=== PATIENT | female | born 1945 | race Hispanic/Latino ===

== ENCOUNTER 2017-05-19 09:17 | Inpatient (IN) | payer MEDICARE, OTHER ==
[2017-05-19] MEDS ORDERED: Morphine 4 mg/ml ISec IVP STA (11:27)
--- NOTE | 2017-05-19 11:29 | ED PDOC ---
Arrival/HPI - General Chief Complaint: Back Pain Time Seen by Provider: 05/19/17 11:05 Historian: Patient - History of Present Illness Narrative History of Present Illness (Text): 05/19/17 11:29 A 72 year old female sent into the emergency department by Dr. Puente for evaluation. Patient had a MRI done yesterday which showed a spinal mass between T10-11. Patient complains of progressively worsening right mid-back pain over the past few days. Patient reports a heavy sensation to her upper legs, and notes her pain is exacerbated with movement and ambulation. Patient denies any fever, chills, nausea, vomiting, abdominal pain, chest pain, shortness of breath , weakness, numbness or any other complaints. PMD: Dr. Vail Oncologist: Dr. Puente Pain Management: Dr. Schwab Time/Duration: Other (few days) Symptom Course: Worsening Context: Home Past Medical History - Provider Review Nursing Documentation Reviewed: Yes - Cardiac Hx Cardiac Disorders: Yes - Pulmonary Hx Respiratory Disorders: No - Neurological Hx Neurological Disorder: No - HEENT Hx HEENT Disorder: No - Renal Hx Renal Disorder: No - Endocrine/Metabolic Hx Endocrine Disorders: Yes Hx Diabetes Mellitus Type 2: Yes - Hematological/Oncological Hx Blood Disorders: Yes Hx Cancer: Yes - Integumentary Hx Dermatological Disorder: No - Musculoskeletal/Rheumatological Hx Musculoskeletal Disorders: Yes Hx Arthritis: Yes - Gastrointestinal Hx Gastrointestinal Disorders: No - Genitourinary/Gynecological Hx Genitourinary Disorders: Yes - Psychiatric Hx Psychophysiologic Disorder: Yes Hx Anxiety: Yes Hx Depression: Yes Hx Substance Use: No - Surgical History Hx Section: Yes Hx Orthopedic Surgery: Yes (R KNEE) - Anesthesia Hx Anesthesia: Yes Family/Social History - Physician Review Nursing Documentation Reviewed: Yes Family/Social History: No Known Family HX Smoking Status: Heavy Smoker > 10 Cigarettes Daily Hx Alcohol Use: Yes Frequency of alcohol use: Socially Hx Substance Use: No Allergies/Home Meds Allergies/Adverse Reactions: Allergies Sulfa (Sulfonamide Antibiotics) Allergy (Verified 05/19/17 14:07) ANAPHYLAXIS Home Medications: Home Meds Medication Instructions Recorded Confirmed Alprazolam [Xanax] 2 mg PO TID 05/19/17 05/19/17 Colesevelam HCl [Welchol] 625 mg PO QID 05/19/17 05/19/17 Metformin ER [Glucophage XR] 500 mg PO BID 05/19/17 05/19/17 Montelukast [Singulair] 10 mg PO DAILY 05/19/17 05/19/17 Zolpidem [Ambien] 5 mg PO DAILY 05/19/17 05/19/17 Review of Systems - Physician Review All systems were reviewed & negative as marked: Yes - Review of Systems Constitutional: absent: Fevers, Night Sweats Respiratory: absent: SOB Cardiovascular: absent: Chest Pain Gastrointestinal: absent: Abdominal Pain, Nausea, Vomiting Musculoskeletal: Back Pain (right mid-back) Neurological: absent: Focal Weakness (/numbness) Physical Exam Vital Signs Reviewed: Yes Vital Signs Temp Pulse Resp BP Pulse Ox 05/19/17 20:26 97.5 F L 69 18 161/68 H 05/19/17 17:00 71 18 148/71 96 05/19/17 15:55 75 18 156/77 H 96 05/19/17 15:39 76 18 148/86 98 05/19/17 12:39 83 18 150/92 H 97 05/19/17 12:29 78 18 145/75 99 05/19/17 09:47 98.1 F 83 16 149/80 99 Temperature: Afebrile Blood Pressure: Normal Pulse: Regular Respiratory Rate: Normal Appearance: Positive for: Well-Appearing, Non-Toxic, Comfortable Pain Distress: None Mental Status: Positive for: Alert and Oriented X 3 - Systems Exam Head: Present: Atraumatic, Normocephalic Pupils: Present: PERRL Extroacular Muscles: Present: EOMI Conjunctiva: Present: Normal Mouth: Present: Moist Mucous Membranes Neck: Present: Normal Range of Motion Respiratory/Chest: Present: Clear to Auscultation, Good Air Exchange. No: Respiratory Distress, Accessory Muscle Use Cardiovascular: Present: Regular Rate and Rhythm, Normal S1, S2. No: Murmurs Abdomen: Present: Normal Bowel Sounds. No: Tenderness, Distention, Peritoneal Signs Back: Present: Paraspinal Tenderness (Right thoracic paraspinal tenderness). No : Pain with Leg Raise Upper Extremity: Present: Normal Inspection. No: Cyanosis, Edema Lower Extremity: Present: Normal Inspection. No: Edema Neurological: Present: GCS=15, CN II-XII Intact, Speech Normal, Motor Func Grossly Intact, Normal Sensory Function, Normal Cerebellar Funct Skin: Present: Warm, Dry, Normal Color. No: Rashes Psychiatric: Present: Alert, Oriented x 3, Normal Insight, Normal Concentration Medical Decision Making ED Course and Treatment: 05/19/17 11:29 Impression: A 72 year old female with worsening right mid back pain. Patient found to have a spinal mass between T10-11. Differential Diagnosis included but are not limited to: Back pain secondary to Spinal mass, rule out Cord compression Plan: -- Chest xray -- EKG -- Labs -- Urinalysis -- Morphine -- Reassess and disposition Progress Notes: EKG shows NSR at 81 BPM with LAFB, LVH. Interpreted by me. Case discussed with Resident Efraín who is working with Dr. Puente. Will obtain MRI results. MRI results from [facility] showed: Exam: MR Thoracic Spine without Contrast Impression: Multiple sites of marrow replacement involving the thoracic spine, lower cervical spine and upper lumbar spine. There is epidural tumor at T10 and T11 resulting in mild to moderate T10 and mild T11 central stenosis. There is no cord compression identifies at this time. There are significantly enlarged thoracic lymph nodes. The liver lesions probably represent liver metastasis. A CR scan of the chest abdomen and pelvis with contrast is recommended to further evaluate the extent of tumor. 05/19/17 12:[address] Puente, states to admit patient to his service. Requests consults with Dr. Mitchell, Dr. Goyal, Dr. Pineda, and Dr. Alvarado 05/19/17 12:40 Spoke with radiologist, reports chest xray shows right lung mass. Report Date : 05/19/2017 12:39:18 Procedure: Chest xray Dictator : Aisha Tillman MD IMPRESSION: Findings are concerning for hilar and suprahilar mass/ lymphadenopathy with postobstructive atelectasis in the right upper lobe. A dedicated CT scan of the thorax with intravenous contrast is recommended for further evaluation. Important findings were discussed with Dr. Marco Antonio Palacio in the ER on 05/19/2017 at 12:35 p.m. Report Date : 05/19/2017 15:27:47 PROCEDURE: CT HEAD WITHOUT CONTRAST. Dictator : Jenny Shrestha MD IMPRESSION: No acute intracranial pathology identified. Two peripherally calcified densities noted in the 4th ventricle, possibly atypical choroid plexus calcifications. MRI of the brain without and with IV contrast may be considered for further evaluation if indicated. Report Date : 05/19/2017 15:53:49 PROCEDURE: CT chest, abdomen, and pelvis with IV contrast Dictator : Jenny Shrestha MD Impression: Substernal enlargement of the right thyroid lobe with heterogeneous enhancement. Bulky mediastinal and hilar adenopathy. Sub cm prominent prevascular lymph nodes. Conglomerate adenopathy/ soft tissue mass exerts mass effect on the right pulmonary artery and branches, in particular, upper lobe branches as well as the azygos vein and surrounds but does not compress the SVC. Periaortic/esophageal adenopathy is also present measuring approximately 2.4 cm in short axis. Appearance consistent with malignant neoplasm. Small right pleural effusion. Pleural-based soft tissue density involving the superior extent of the right major fissure not felt to represent fluid measuring approximately 40 Hounsfield unit. Additional multiple small pleural based nodular densities along the right middle and lower lobes. Innumerable hepatic hypodense masses consistent with metastases. Enlarged mesenteric and kiran hepatis bulky adenopathy as above. Enlarged lymph node also noted adjacent to the right adrenal gland. 05/19/17 16:00 Reviewed labs and imaging with patient, who expresses understanding. Dr. Goyal came to evaluate patient. Dr. Red, NeuroSx, came to evaluate patient. No evidence of cord compression on MRI and clinically not suspected so no surgical intervention immediate at this time. Patient was given her dose of Metformin and Nicotin patch in the ED. She is eating comfortably with no vomiting. Pain is controlled. - Lab Interpretations Lab Results: 05/19/17 12:10 05/19/17 12:10 Lab Results 05/19/17 12:10: Sodium 132, Potassium 3.8, Chloride 96 L, Carbon Dioxide 25, Anion Gap 15, BUN 14, Creatinine 0.6 L, Est GFR ( Amer) > 60, Est GFR ( Non-Af Amer) > 60, Random Glucose 144 H, Calcium 10.6 H, Magnesium 1.9, Total Bilirubin 0.6, AST 88 H, ALT 74 H, Alkaline Phosphatase 181 H, Total Protein 8.1 , Albumin 4.7, Globulin 3.4, Albumin/Globulin Ratio 1.4 05/19/17 12:10: PT 12.8 H, INR 1.11 H, APTT 23.1 L 05/19/17 12:10: WBC 8.8, RBC 4.69, Hgb 14.1, Hct 42.1, MCV 89.8, MCH 30.1, MCHC 33.5, RDW 13.5, Plt Count 223, MPV 9.7, Gran % 81.3 H, Lymph % (Auto) 12.0 L, [place] % (Auto) 6.3 H, Eos % (Auto) 0.2 L, Baso % (Auto) 0.2, Gran # 7.11 H, Lymph # 1.1 L, [place] # 0.6, Eos # 0.0, Baso # 0.02 05/19/17 12:08: POC Glucose (mg/dL) 119 H 05/19/17 11:55: Urine Color Yellow, Urine Appearance Clear, Urine pH 6.0, Ur Specific [place] 1.020, Urine Protein Trace H, Urine Glucose (UA) Negative, Urine Ketones Negative, Urine Blood Trace-intact H, Urine Nitrate Negative, Urine Bilirubin Negative, Urine Urobilinogen 0.2, Ur Leukocyte Esterase Trace H , Urine RBC 2 - 5, Urine WBC 5 - 10, Ur Epithelial Cells 4 - 5, Amorphous Sediment Few, Urine Bacteria Many, Coarse Granular Casts Trace H, Urine Other Uyeast I have reviewed the lab results: Yes - RAD Interpretation Radiology Orders: 05/19/17 11:29 CXR [CHEST PORTABLE] [RAD] Stat 05/19/17 12:08 CHEST,ABD,PEL W/IV CONT ONLY [CT] Stat - Medication Orders Current Medication Orders: Acetaminophen (Tylenol 325mg Tab) 650 mg PO Q4H PRN PRN Reason: Fever >100.4 F Last Admin: 05/19/17 12:21 Dose: 650 mg MAR Pain/Vitals Document 05/19/17 12:21 OCS (Rec: 05/19/17 12:21 OCS [facility] [id number]) Pain Reassessment Is This A Pain ReAssessment? Yes Sleep Is patient sleeping during reassessment? No Presence of Pain Presence of Pain Yes Location Upper or Lower Upper Pain Location Body Site Back Description Constant Intensity 10 Scale Used Numeric Aggravating Factors ADL's Alprazolam (Xanax) 0.5 mg PO TID PRN PRN Reason: Anxiety Dexamethasone (Decadron Inj) 4 mg IVP Q6H [facility] Last Admin: 05/19/17 18:49 Dose: 4 mg IVP Administration Document 05/19/17 18:49 OCS (Rec: 05/19/17 18:49 [place] [facility] [id number][place] Charges for Administration # of IVP Administrations 1 Docusate Sodium (Colace) 100 mg PO DAILY [facility] Heparin Sodium (Porcine) (Heparin) 5,000 units SC Q12 KIMMY PRN Reason: Protocol Last Admin: 05/19/17 22:43 Dose: 5,000 units Subcutaneous Administrations Document 05/19/17 22:43 MV (Rec: 05/19/17 22:43 MV [id number]) Charges for Administration # of Subcutaneous Administrations 1 Insulin Human Regular (Humulin R High) 0 units SC ACHS [facility] PRN Reason: Protocol Last Admin: 05/19/17 22:42 Dose: Not Given Non-Admin Reason: Blood Sugar Parameter MAR Blood Glucose Document 05/19/17 22:42 MV (Rec: 05/19/17 22:43 MV [id number]) Blood Glucose Finger Stick Blood Glucose (70-120) 131 Montelukast Sodium (Singulair) 10 mg PO DAILY [facility] Morphine Sulfate (Morphine) 4 mg IVP Q4H PRN PRN Reason: Pain, moderate (4-7) Last Admin: 05/19/17 22:54 Dose: 4 mg IVP Administration Document 05/19/17 22:54 MV (Rec: 05/19/17 22:54 MV [id number]) Charges for Administration # of IVP Administrations 1 Non-Formulary Medication (Colesevelam Hcl [Welchol]) 625 mg PO QID [facility] Non-Formulary Medication (Pristique) 50 mg PO DAILY [facility] Ondansetron HCl (Zofran Inj) 4 mg IVP Q4H PRN PRN Reason: Nausea/Vomiting Last Admin: 05/19/17 12:21 Dose: 4 mg IVP Administration Document 05/19/17 12:21 OCS (Rec: 05/19/17 12:21 [place]CS [facility] [id number]) Charges for Administration # of IVP Administrations 1 Pantoprazole Sodium (Protonix Ec Tab) 40 mg PO 0600 [facility] Polyethylene Glycol (Miralax) 17 gm PO DAILY [facility] Zolpidem Tartrate (Ambien) 5 mg PO HS PRN; Protocol PRN Reason: Insomnia Discontinued Medications Alprazolam (Xanax) 2 mg PO TID KIMMY Last Admin: 05/19/17 18:49 Dose: 2 mg Metformin HCl (Glucophage) 500 mg PO STAT STA Stop: 05/19/17 18:36 Last Admin: 05/19/17 18:50 Dose: 500 mg Morphine Sulfate (Morphine) 4 mg IVP STAT STA Stop: 05/19/17 11:28 Last Admin: 05/19/17 12:30 Dose: 4 mg MAR Pain Assessment Document 05/19/17 12:30 OCS (Rec: 05/19/17 12:46 OCS [facility] [id number]) Pain Reassessment Is this a pain reassessment? Yes Sleep Is patient sleeping during reassessment? No Presence of Pain Presence of Pain Yes Pain Scale Used Pain Scale Used Numeric Location Upper or Lower Upper Pain Location Body Site Back Description Description Constant Intensity of Pain at present 10 Aggravating Factors ADL's IVP Administration Document 05/19/17 12:30 OCS (Rec: 05/19/17 12:46 OCS [facility] [id number]) Charges for Administration # of IVP Administrations 1 Morphine Sulfate (Morphine) 4 mg IVP STAT STA Stop: 05/19/17 12:25 Nicotine (Nicoderm Cq) 1 patch TD STAT STA Stop: 05/19/17 18:39 Last Admin: 05/19/17 21:26 Dose: 1 patch MAR Transdermal Patch Site Document 05/19/17 21:26 MV (Rec: 05/19/17 21:28 MV [id number]) Transdermal Patch Site Transdermal Patch Site Left Outer Upper Arm - Scribe Statement The provider has reviewed the documentation as recorded by the Taurusibrussell Prabhakar Provider Scribe Attestation: All medical record entries made by the Scribe were at my direction and personally dictated by me. I have reviewed the chart and agree that the record accurately reflects my personal performance of the history, physical exam, medical decision making, and the department course for this patient. I have also personally directed, reviewed, and agree with the discharge instructions and disposition. Disposition/Present on Arrival - Present on Arrival Any Indicators Present on Arrival: Yes History of DVT/PE: No History of Uncontrolled Diabetes: Yes Urinary Catheter: No History of Decub. Ulcer: No History Surgical Site Infection Following: None - Disposition Have Diagnosis and Disposition been Completed?: Yes Diagnosis: Lung mass, Liver mass, Epidural mass Disposition Time: 12:38 Patient Plan: Admission Condition: FAIR
[2017-05-19 12:18] LABS: URINE APPEARANCE CLEAR (CLEAR); URINE BILIRUBIN NEGATIVE (NEGATIVE); URINE BLOOD TRACE-INTACT (NEGATIVE); URINE COLOR YELLOW (YELLOW); URINE GLUCOSE (UA) NEGATIVE (NEGATIVE); URINE LEUKOCYTE ESTERASE TRACE Leu/uL (NEGATIVE); URINE NITRATE NEGATIVE (NEGATIVE); URINE PROTEIN TRACE mg/dL (<30 mg/dL); URINE UROBILINOGEN 0.2 E.U./dL (<1 E.U./dL)
[2017-05-19] MEDS: Dexamethasone 4 mg/1 ml IVP SCH ×2 (12:21→18:49)
[2017-05-19] MEDS ORDERED: Morphine 5 MG/ML SYRINGE IVP STA (12:24)
[2017-05-19 12:30] LABS: URINE AMORPHOUS SEDIMENT FEW; URINE BACTERIA MANY (NEG)
[2017-05-19 12:31] LABS: URINE COARSE GRANULAR CAST TRACE /hpf (0-2)
[2017-05-19 12:34] LABS: BASO # 0.02 K/mm3 (0.0-2.0); BASO % 0.2 % (0.0-3.0); EOS % 0.2 % (1.5-5.0); GRAN # 7.11 (1.4-6.5); GRAN % 81.3 % (50.0-68.0); HEMOGLOBIN 14.1 g/dL (12.0-16.0); LYMPH # 1.1 (1.2-3.4); MEAN CELL VOLUME 89.8 fl (80.0-105.0); MEAN CORPUSCULAR HEMOGLOBIN 30.1 pg (25.0-35.0); MEAN CORPUSCULAR HGB CONC 33.5 g/dl (31.0-37.0); MEAN PLATELET VOLUME 9.7 fl (7.0-11.0); MONO # 0.6 (0.1-0.6); MONO % 6.3 % (1.0-6.0); RBC 4.69 10^6/uL (3.5-6.1); RED CELL DISTRIBUTION WIDTH 13.5 % (11.5-14.5); WHITE BLOOD COUNT 8.8 10^3/ul (4.5-11.0)
[2017-05-19 12:37] LABS: ALB/GLOB RATIO 1.4 (1.1-1.8); ALBUMIN 4.7 g/dL (3.0-4.8); ALT/SGPT 74 U/L (7-56); AST/SGOT 88 U/L (14-36); BLOOD UREA NITROGEN 14 mg/dL (7-21); CALCIUM 10.6 mg/dL (8.4-10.5); GFR AFRICAN-AMERICAN > 60; GFR NON-AFRICAN AMERICAN > 60; MAGNESIUM 1.9 mg/dL (1.7-2.2)
--- NOTE | 2017-05-19 12:41 | RAD ---
HISTORY: preop COMPARISON: No prior. FINDINGS: LUNGS: The lungs are well inflated. There is subsegmental atelectasis in the right upper lobe. There is asymmetric enlargement of the right hilum and abnormal soft tissue in the suprahilar region. PLEURA: No significant pleural effusion identified, no pneumothorax apparent. CARDIOVASCULAR: Normal. OSSEOUS STRUCTURES: No significant abnormalities. VISUALIZED UPPER ABDOMEN: Normal. OTHER FINDINGS: None. IMPRESSION: Findings are concerning for hilar and suprahilar mass/ lymphadenopathy with postobstructive atelectasis in the right upper lobe. A dedicated CT scan of the thorax with intravenous contrast is recommended for further evaluation. Important findings were discussed with Dr. Marco Antonio Palacio in the ER on 05/19/2017 at 12:35 p.m.
[2017-05-19 12:42] LABS: INR 1.11 (0.93-1.08); PARTIAL THROMBOPLASTIN TIME 23.1 Seconds (25.1-36.5); PROTHROMBIN TIME 12.8 SECONDS (9.4-12.5)
[2017-05-19] MEDS ORDERED: Iohexol 350 MG/100 ML VIAL ONE (13:06)
--- NOTE | 2017-05-19 14:41 | CP.PCM.HP ---
History of Present Illness - History of Present Illness History of Present Illness: 72 year old female with PMH of DM, HTN, and MDD presents to the ED for evaluation for newly found lower back mass. Patient was being seen for low back pain by pain management. Patient was found to have an epidural tumor with no cord compression at T10-11 as found on thoracic MRI. Lesions were also found in the liver, likely to be metastasis. Patient was then evaluated by Dr. Puente who recommended patient come to the hospital for full workup. Today, patient is complaining of severe lower back pain and is unable to lay flat. She says tylenol does not help with pain. Patient also admits to occasional RUQ pain that radiates to the back. She denies urinary incontinence or lower extremity weakness. Denies chest pain, shortness of breath, focal deficits, fever, chills , dysuria, headache. PMH: DM, HTN, and MDD Surgical Hx: Dermoid tumor removal, C/S x 2 Family Hx: Noncontributory Social Hx: Current 1 ppd smoker x 50 years. Social alcohol use, denies illicit drugs Medications: Reviewed, as per MAR Allergies: NKDA Present on Admission - Present on Admission Any Indicators Present on Admission: No Review of Systems - Review of Systems Review of Systems: 12 point ROS as per HPI, otherwise negative. Past Patient History - Past Social History Smoking Status: Heavy Smoker > 10 Cigarettes Daily - CARDIAC Hx Cardiac Disorders: Yes - PULMONARY Hx Respiratory Disorders: No - NEUROLOGICAL Hx Neurological Disorder: No - HEENT Hx HEENT Problems: No - RENAL Hx Chronic Kidney Disease: No - ENDOCRINE/METABOLIC Hx Endocrine Disorders: Yes Hx Diabetes Mellitus Type 2: Yes - HEMATOLOGICAL/ONCOLOGICAL Hx Blood Disorders: Yes Hx Cancer: Yes - INTEGUMENTARY Hx Dermatological Problems: No - MUSCULOSKELETAL/RHEUMATOLOGICAL Hx Musculoskeletal Disorders: Yes Hx Arthritis: Yes - GASTROINTESTINAL Hx Gastrointestinal Disorders: No - GENITOURINARY/GYNECOLOGICAL Hx Genitourinary Disorders: Yes - PSYCHIATRIC Hx Psychophysiologic Disorder: Yes Hx Anxiety: Yes Hx Depression: Yes Hx Substance Use: No - SURGICAL HISTORY Hx Section: Yes Hx Orthopedic Surgery: Yes (R KNEE) - ANESTHESIA Hx Anesthesia: Yes Meds Allergies/Adverse Reactions: Allergies Allergy/AdvReac Type Severity Reaction Status Date / Time Sulfa (Sulfonamide Allergy ANAPHYLAXIS Verified 05/19/17 14:07 Antibiotics) Physical Exam - Constitutional Appears: Non-toxic, No Acute Distress - Head Exam Head Exam: ATRAUMATIC, NORMAL INSPECTION, NORMOCEPHALIC - Eye Exam Eye Exam: EOMI, Normal appearance - ENT Exam ENT Exam: Mucous Membranes Moist, Normal Exam - Neck Exam Neck exam: Positive for: Normal Inspection. Negative for: Lymphadenopathy - Respiratory Exam Respiratory Exam: Clear to Auscultation Bilateral, NORMAL BREATHING PATTERN. absent: Rales, Rhonchi, Wheezes - Cardiovascular Exam Cardiovascular Exam: Tachycardia, REGULAR RHYTHM, +S1, +S2 - GI/Abdominal Exam GI & Abdominal Exam: Normal Bowel Sounds, Soft. absent: Tenderness - Extremities Exam Extremities exam: Positive for: normal inspection. Negative for: calf tenderness, pedal edema - Neurological Exam Neurological exam: Alert, CN II-XII Intact, Oriented x3 - Psychiatric Exam Psychiatric exam: Normal Affect, Normal Mood - Skin Skin Exam: Intact, Normal Color, Warm Results - Vital Signs Recent Vital Signs: Last Vital Signs Temp 98.1 F 05/19/17 09:47 Pulse 83 05/19/17 12:39 Resp 18 05/19/17 12:39 BP 150/92 H 05/19/17 12:39 Pulse Ox 97 05/19/17 12:39 - Labs Result Diagrams: 05/19/17 12:10 05/19/17 12:10 Assessment & Plan - Assessment and Plan (Free Text) Plan: 72 year old female with PMH of DM, HTN, and MDD presents for evaluation 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 Patient will be admitted and have morphine for chest pain. Patient will also be seen by IR for liver biopsy, neurosurgery and neurologist for evaluation of spinal tumor. Patient will also be placed on Decadron to limit tumor inflammation. She will receive head, chest , abdomen, and pelvis CT for tumor mets. Patient will also be evaluated by Dr. Goyal, radiation oncology, for further treatment. Patient will have home medications restarted. Will monitor patient closely for any signs of cord compression. Plan discussed with Dr. Puente. Linda, PGY-2
--- NOTE | 2017-05-19 15:29 | CT ---
PROCEDURE: CT HEAD WITHOUT CONTRAST. HISTORY: new lung CA COMPARISON: None available. TECHNIQUE: Axial computed tomography images were obtained through the head/brain without intravenous contrast. Radiation dose: Total exam DLP = 996.65 mGy-cm. This CT exam was performed using one or more of the following dose reduction techniques: Automated exposure control, adjustment of the mA and/or kV according to patient size, and/or use of iterative reconstruction technique. FINDINGS: HEMORRHAGE: No intracranial hemorrhage. BRAIN: No mass effect or edema. Michelle-white matter differentiation appears intact. Please note that MRI with diffusion imaging is more sensitive in the detection of acute ischemic event. VENTRICLES: Two peripherally calcified densities noted in the 4th ventricle, possibly atypical choroid plexus calcifications. No hydrocephalus. CALVARIUM: Unremarkable. PARANASAL SINUSES: Unremarkable as visualized. No significant inflammatory changes. MASTOID AIR CELLS: Under aeration of bilateral mastoid air cells; correlate for history of otomastoiditis. OTHER FINDINGS: None. IMPRESSION: No acute intracranial pathology identified. Two peripherally calcified densities noted in the 4th ventricle, possibly atypical choroid plexus calcifications. MRI of the brain without and with IV contrast may be considered for further evaluation if indicated.
--- NOTE | 2017-05-19 15:55 | CT ---
CT chest, abdomen, and pelvis with IV contrast Indication: Back pain, MRI liver mass Technique: Contiguous axial images of the chest, abdomen, and pelvis. Coronal and Sagittal reformats generated and reviewed. This CT exam was performed using 1 or more of the following dose reduction techniques: Automated exposure control, adjustment of the MAA and/or kV according to patient size, and/or use of iterative reconstruction technique. IV contrast: 100 mL Omnipaque 350 Radiation dose: Total exam DLP = 1161.59 MGy-cm. Comparison: None available Findings: Visualized portions of the inferior thyroid gland demonstrates substernal enlargement of the right thyroid lobe with heterogeneous enhancement. The heart appears within normal limits of size. Bulky mediastinal and hilar adenopathy. Sub cm prominent prevascular lymph nodes. Conglomerate adenopathy/ soft tissue mass exerts mass effect on the right pulmonary artery and branches, in particular, upper lobe branches as well as the azygos vein and surrounds but does not compress the SVC. Periaortic/esophageal adenopathy is also present measuring approximately 2.4 cm in short axis. No large central pulmonary embolus identified. Small right pleural effusion. Pleural-based soft tissue density involving the superior extent of the right major fissure not felt to represent fluid measuring approximately 40 Hounsfield unit. Additional multiple pleural based nodular densities along the right middle and lower lobes. Innumerable hepatic hypodense masses consistent with metastases. Fatty atrophy of the pancreas. Contracted gallbladder appears otherwise unremarkable. The bilateral adrenal glands appear unremarkable. The kidneys enhance symmetrically. No hydronephrosis or obstructing calculus identified. Mesenteric and kiran hepatis bulky adenopathy measuring 1.7 cm in short axis. 2 cm bulky lymph node adjacent to the right adrenal gland also noted. The stomach is nondistended. The bowel loops appear within normal limits of caliber without evidence of intestinal obstruction. There is no definite free air. The appendix appears within normal limits of caliber. No secondary signs of acute appendicitis. Small fat containing umbilical hernia. Uterus is present. Osseous demineralization. Degenerative changes. Impression: Substernal enlargement of the right thyroid lobe with heterogeneous enhancement. Bulky mediastinal and hilar adenopathy. Sub cm prominent prevascular lymph nodes. Conglomerate adenopathy/ soft tissue mass exerts mass effect on the right pulmonary artery and branches, in particular, upper lobe branches as well as the azygos vein and surrounds but does not compress the SVC. Periaortic/esophageal adenopathy is also present measuring approximately 2.4 cm in short axis. Appearance consistent with malignant neoplasm. Small right pleural effusion. Pleural-based soft tissue density involving the superior extent of the right major fissure not felt to represent fluid measuring approximately 40 Hounsfield unit. Additional multiple small pleural based nodular densities along the right middle and lower lobes. Innumerable hepatic hypodense masses consistent with metastases. Enlarged mesenteric and kiran hepatis bulky adenopathy as above. Enlarged lymph node also noted adjacent to the right adrenal gland. Additional findings as above.
--- NOTE | 2017-05-19 17:17 | CP.PCM.CON ---
History of Present Illness - History of Present Illness History of Present Illness: SPINE Pt seen and examined. Full consult dictated. No surgical intervention indicated at this time. (Pt adamant about NOT having any surgery done!) Past Patient History - Past Social History Smoking Status: Heavy Smoker > 10 Cigarettes Daily - CARDIAC Hx Cardiac Disorders: Yes - PULMONARY Hx Respiratory Disorders: No - NEUROLOGICAL Hx Neurological Disorder: No - HEENT Hx HEENT Problems: No - RENAL Hx Chronic Kidney Disease: No - ENDOCRINE/METABOLIC Hx Endocrine Disorders: Yes Hx Diabetes Mellitus Type 2: Yes - HEMATOLOGICAL/ONCOLOGICAL Hx Blood Disorders: Yes Hx Cancer: Yes - INTEGUMENTARY Hx Dermatological Problems: No - MUSCULOSKELETAL/RHEUMATOLOGICAL Hx Musculoskeletal Disorders: Yes Hx Arthritis: Yes - GASTROINTESTINAL Hx Gastrointestinal Disorders: No - GENITOURINARY/GYNECOLOGICAL Hx Genitourinary Disorders: Yes - PSYCHIATRIC Hx Psychophysiologic Disorder: Yes Hx Anxiety: Yes Hx Depression: Yes Hx Substance Use: No - SURGICAL HISTORY Hx Section: Yes Hx Orthopedic Surgery: Yes (R KNEE) - ANESTHESIA Hx Anesthesia: Yes Meds Allergies/Adverse Reactions: Allergies Allergy/AdvReac Type Severity Reaction Status Date / Time Sulfa (Sulfonamide Allergy ANAPHYLAXIS Verified 05/19/17 14:07 Antibiotics) - Medications Medications: Current Medications Acetaminophen (Tylenol 325mg Tab) 650 mg PO Q4H PRN PRN Reason: Fever >100.4 F Last Admin: 05/19/17 12:21 Dose: 650 mg Alprazolam (Xanax) 2 mg PO TID [facility] Dexamethasone (Decadron Inj) 4 mg IVP Q6H [facility] Last Admin: 05/19/17 12:21 Dose: 4 mg Docusate Sodium (Colace) 100 mg PO DAILY [facility] Heparin Sodium (Porcine) (Heparin) 5,000 units SC Q12 [facility] PRN Reason: Protocol Insulin Human Regular (Humulin R High) 0 units SC ACHS [facility] PRN Reason: Protocol Montelukast Sodium (Singulair) 10 mg PO DAILY [facility] Non-Formulary Medication (Colesevelam Hcl [Welchol]) 625 mg PO QID [facility] Ondansetron HCl (Zofran Inj) 4 mg IVP Q4H PRN PRN Reason: Nausea/Vomiting Last Admin: 05/19/17 12:21 Dose: 4 mg Pantoprazole Sodium (Protonix Ec Tab) 40 mg PO 0600 [facility] Zolpidem Tartrate (Ambien) 5 mg PO HS PRN; Protocol PRN Reason: Insomnia Results - Vital Signs Recent Vital Signs: Last Vital Signs Temp 98.1 F 05/19/17 09:47 Pulse 75 05/19/17 15:55 Resp 18 05/19/17 15:55 BP 156/77 H 05/19/17 15:55 Pulse Ox 96 05/19/17 15:55 - Labs Result Diagrams: 05/19/17 12:10 05/19/17 12:10 Labs: Laboratory Results - last 24 hr 05/19/17 05/19/17 15:42 15:44 Blood Type A POSITIVE Blood Type Confirm A POSITIVE Antibody Screen Negative BBK History Checked No verified bt
--- NOTE | 2017-05-19 17:53 | CARD ---
APPROVED REPORT EKG Measurement Heart [id number] <Conclusion> Normal sinus rhythm Possible Left atrial enlargement Left anterior fascicular block Left ventricular hypertrophy with QRS widening Abnormal ECG
[2017-05-19] MEDS: Insulin Reg-HIGH-Coverage SC SCH (22:42)
[2017-05-19] MEDS: Morphine 5 MG/ML SYRINGE IVP PRN (22:54)
[2017-05-20] MEDS: Dexamethasone 4 mg/1 ml IVP SCH ×4 (00:21→18:19)
[2017-05-20] MEDS: Morphine 5 MG/ML SYRINGE IVP PRN ×2 (05:16→11:42)
[2017-05-20] MEDS: Pantoprazole 40 mg EC Tab PO SCH (06:36)
[2017-05-20 07:17] LABS: HEMOGLOBIN 12.8 g/dL (12.0-16.0); MEAN CORPUSCULAR HEMOGLOBIN 29.6 pg (25.0-35.0); MEAN CORPUSCULAR HGB CONC 32.9 g/dl (31.0-37.0); MEAN PLATELET VOLUME 9.9 fl (7.0-11.0); RBC 4.32 10^6/uL (3.5-6.1); RED CELL DISTRIBUTION WIDTH 13.5 % (11.5-14.5); WHITE BLOOD COUNT 5.8 10^3/ul (4.5-11.0)
[2017-05-20 07:44] LABS: ALB/GLOB RATIO 1.4 (1.1-1.8); ALBUMIN 4.5 g/dL (3.0-4.8); ALT/SGPT 70 U/L (7-56); AST/SGOT 78 U/L (14-36); BLOOD UREA NITROGEN 19 mg/dL (7-21); CALCIUM 10.5 mg/dL (8.4-10.5); GFR AFRICAN-AMERICAN > 60; GFR NON-AFRICAN AMERICAN > 60
--- NOTE | 2017-05-20 08:10 | CON ---
DATE: 05/19/2017 REASON FOR CONSULTATION: Epidural mass. HISTORY OF PRESENT ILLNESS: The patient is 72-year-old woman, who states that she has had some discomfort in her mid back over the past couple of months, with no antecedent trauma. However the past couple of days, the pain has become severe. She has been followed by pain management and had an MRI of her thoracic spine done, which reportedly revealed an epidural mass. Other lesions were also noted suggesting that this was metastatic disease. There was no known primary. The patient is being admitted at this time for a full metastatic workup. She states that at times, she shuffles her feet with ambulation and her legs feel weak, but that evidently has been long standing with no acute onset has happened with the pain. She actually states she has already been out of the bed and able to ambulate to the bathroom on her own today. She denies any loss of bowel or bladder control. No radicular complaints in the extremities. She just describes several areas of pain, one being the level of the lower thoracic region radiating around towards the right ribs. She has another pain that feels as though it is underneath her right breast that radiates straight out the anterior chest as she describes it. PAST MEDICAL HISTORY: Significant for diabetes and hypertension. MEDICATIONS: As listed on the chart. ALLERGIES: SHE HAS NO KNOWN ALLERGIES. PAST SURGICAL HISTORY: Significant for two C-sections as well as removal of dermoid tumor in the past. SOCIAL HISTORY: She is a current pack a day smoker, which she has been doing for over 50 years. PHYSICAL EXAMINATION: MUSCULOSKELETAL: Again she has the pain in the lower thoracic region, radiating along the right ribcage. She moves both lower extremities actively. Her sensation is intact till I touch throughout. She appears to have good strength throughout as well. No clonus or Babinski is present. Excellent distal pulses. MRI that was done as an outpatient was loaded to the system and reviewed. It shows bony retropulsion from the vertebral body that is listed as being T10. It is abutting the spinal cord, but is not causing any deformation of it. There are multiple other levels of vertebral body involvement. Reportedly, there is involvement with the liver and possible lung mass as well. There is no significant colaspase of the vertebral body and no changes in overall alignment. ASSESSMENT AND PLAN: Certainly, from the findings of the MRI the most likely diagnosis a metastatic tumor. At this point, it appears to be abutting the cord as mentioned, but not causing any disruption. She remains intact neurologically. It is difficult what to make her description of the upper leg at times being heavy, as other times they are fine and she states that has been going on for a lot longer than her pain has, so I am not sure if that is just her or it has any relation to this. In the meantime, she is also adamant about not having any type of surgery on her back. I have told her at this time no surgical intervention in indicated and she has to undergo her workup with possible percutaneous procedures to try and biopsy and get a best idea of how to treat this in terms of radiation, chemo, etc. We will be happy to follow along with you as needed, but at this time again nothing, no acute surgical plan is indicated, so please recall us if needed. Thank you for allowing me to participate in the care of your patient. Anthony Red MD
[2017-05-20] MEDS: Insulin Reg-HIGH-Coverage SC SCH ×4 (08:13→22:29)
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
[2017-05-20] MEDS ORDERED: Cholestyramine 4 gm/Pkt UD PO SCH (10:25)
[2017-05-20] MEDS: POLYETHYLENE GLYCOL 3350 17 GM/Dose PACKET PO SCH ×2 (10:34→10:43)
[2017-05-20] MEDS ORDERED: Cholestyramine 4 gm/Pkt UD PO ONE (10:46)
[2017-05-20] MEDS: PRISTIQUE PO SCH (10:48)
[2017-05-20] MEDS ORDERED: Venlafaxine 75 mg ER Cap PO ONE (12:00)
[2017-05-20] MEDS ORDERED: Gadodiamide 287 MG/ML VIAL (15ML) IV ONE (13:33)
--- NOTE | 2017-05-20 14:10 | CP.PCM.PN ---
Subjective - Date & Time of Evaluation Date of Evaluation: 05/20/17 Time of Evaluation: 14:03 - Subjective Subjective: Patient seen and examined at bedside. Patient will receive 2nd round of palliative radiation and liver biopsy today. Pain in lower back remains unchanged at this time. Denies chest pain, shortness of breath, nausea, vomiting , diarrhea, fever, chills. Objective - Vital Signs/Intake and Output Vital Signs (last 24 hours): Temp Pulse Resp BP Pulse Ox 97.5 F L 75 20 163/70 H 97 05/19/17 20:26 05/20/17 06:00 05/20/17 06:00 05/20/17 06:00 05/20/17 06:00 Intake and Output: 05/20/17 05/20/17 06:59 18:59 Intake Total 120 Balance 120 - Medications Medications: Current Medications Acetaminophen (Tylenol 325mg Tab) 650 mg PO Q4H PRN PRN Reason: Fever >100.4 F Last Admin: 05/19/17 12:21 Dose: 650 mg Alprazolam (Xanax) 0.5 mg PO TID PRN PRN Reason: Anxiety Cholestyramine Resin (Questran) 4 gm PO DAILY [facility] Dexamethasone (Decadron Inj) 4 mg IVP Q6H [facility] Last Admin: 05/20/17 12:11 Dose: 4 mg Docusate Sodium (Colace) 100 mg PO DAILY [facility] Last Admin: 05/20/17 10:45 Dose: Not Given Heparin Sodium (Porcine) (Heparin) 5,000 units SC Q12 [facility] PRN Reason: Protocol Last Admin: 05/20/17 10:34 Dose: 5,000 units Insulin Human Regular (Humulin R High) 0 units SC ACHS [facility] PRN Reason: Protocol Last Admin: 05/20/17 12:11 Dose: 2 units Metformin HCl (Glucophage Xr) 500 mg PO BID [facility] Last Admin: 05/20/17 10:34 Dose: 500 mg Montelukast Sodium (Singulair) 10 mg PO DAILY [facility] Last Admin: 05/20/17 10:34 Dose: 10 mg Morphine Sulfate (Morphine) 4 mg IVP Q4H PRN PRN Reason: Pain, moderate (4-7) Last Admin: 05/20/17 11:42 Dose: 4 mg Non-Formulary Medication (Colesevelam Hcl [Welchol]) 625 mg PO QID [facility] Last Admin: 05/20/17 10:47 Dose: Not Given Non-Formulary Medication (Pristique) 50 mg PO DAILY [facility] Last Admin: 05/20/17 10:48 Dose: Not Given Ondansetron HCl (Zofran Inj) 4 mg IVP Q4H PRN PRN Reason: Nausea/Vomiting Last Admin: 05/19/17 12:21 Dose: 4 mg Pantoprazole Sodium (Protonix Ec Tab) 40 mg PO 0600 [facility] Last Admin: 05/20/17 06:36 Dose: 40 mg Polyethylene Glycol (Miralax) 17 gm PO DAILY [facility] Last Admin: 05/20/17 10:43 Dose: Not Given Venlafaxine HCl (Effexor Xr) 75 mg PO DAILY [facility] Zolpidem Tartrate (Ambien) 5 mg PO HS PRN; Protocol PRN Reason: Insomnia - Labs Labs: 05/20/17 06:00 05/20/17 06:00 PT 12.8 SECONDS (9.4-12.5) H 05/19/17 12:10 INR 1.11 (0.93-1.08) H 05/19/17 12:10 APTT 23.1 Seconds (25.1-36.5) L 05/19/17 12:10 - Constitutional Appears: Non-toxic, No Acute Distress - Head Exam Head Exam: ATRAUMATIC, NORMAL INSPECTION, NORMOCEPHALIC - ENT Exam ENT Exam: Mucous Membranes Moist - Respiratory Exam Respiratory Exam: Clear to Ausculation Bilateral, NORMAL BREATHING PATTERN. absent: Rales, Rhonchi, Wheezes - Cardiovascular Exam Cardiovascular Exam: RRR, +S1, +S2 - GI/Abdominal Exam GI & Abdominal Exam: Soft, Normal Bowel Sounds. absent: Tenderness - Extremities Exam Extremities Exam: Normal Inspection. absent: Calf Tenderness, Pedal Edema - Back Exam Back Exam: tenderness (With movement and supine positioning ) - Neurological Exam Neurological Exam: Alert, Awake, Oriented x3 - Psychiatric Exam Psychiatric exam: Normal Affect, Normal Mood - Skin Skin Exam: Intact, Normal Color, Warm Assessment and Plan - Assessment and Plan (Free Text) Plan: 72 year old female with PMH of DM, HTN, and MDD presents for evaluation 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 Patient received head, chest, abdomen , pelvis CT yesterday which showed calcified lesions in the 4th ventricle of the brain, multiple metastases to the liver, soft tissue mass near the right pulmonary artery, and mediastinal lymphadenopathy. Patient evaluated by neurosurgery who state she is not a surgical candidate. Patient will continue on with current pain regimen. Patient will also undergo palliative radiation therapy, she received her second dose today. Patient will also get a liver biopsy to further evaluate malignancy. Currently, awaiting MRI of Brain, thoracic spine, and head MRA. Continue current medical regimen. Will follow with recommendations of specialists. Plan discussed with Dr. Puente. Linda, PGY-2
--- NOTE | 2017-05-20 16:03 | MRI ---
PROCEDURE: MRI BRAIN WITH AND WITHOUT CONTRAST HISTORY: Evaluate for brain metastasis COMPARISON: Noncontrast head CT from 05/19/2017 TECHNIQUE: Multiplanar, multisequence MR images of the brain were obtained with and without intravenous contrast enhancement. 15 cc Omniscan was injected intravenously FINDINGS: HEMORRHAGE: None DWI: No evidence of an acute or early subacute infarction. BRAIN PARENCHYMA: There are mild chronic microangiopathic changes. There is no mass, mass effect or abnormal extra-axial fluid collection. There is no territorial infarction. ENHANCEMENT: There is a 3 mm enhancing focus in the right anterior frontal lobe. No evidence of leptomeningeal enhancement. The midline sagittal structures are normal VENTRICLES: There is mild age-related global parenchymal volume loss and proportionate enlargement of the ventricles and cortical sulci. There is a non enhancing T1 isointense and T2 hyperintense nodule in the right 4th ventricle corresponding to the calcification seen on CT which may represent atypical choroid plexus calcification or calcified intraventricular meningioma. CRANIUM: There is normal bone marrow signal pattern. . ORBITS: Grossly unremarkable. PARANASAL SINUSES/MASTOIDS: The paranasal sinuses are predominantly clear. The mastoid air cells are underdeveloped. VASCULAR SYSTEM: There are normal signal voids in the larger intracranial arteries. OTHER FINDINGS: None . IMPRESSION: 1. Solitary 3 mm enhancing focus in the right anterior frontal lobe is nonspecific however small cortical metastasis cannot be excluded. Short-term interval follow-up is recommended. 2. The calcified intraventricular lesions in the 4th ventricle is identified on the CT are not very well seen on MRI. Please note MRI is not the modality of choice for evaluation of calcified lesions. The nonenhancing lesion on the right in the 4th ventricle is identified on MRI and could represent atypical choroid plexus calcification or calcified intraventricular meningioma.
--- NOTE | 2017-05-20 16:09 | MRI ---
PROCEDURE: Magnetic Resonance Angiography Brain HISTORY: r/o brain mets COMPARISON: None available. TECHNIQUE: 3D time of flight MR angiography of the intracranial arteries was performed. Rotating maximum intensity projection images were generated. FINDINGS: INTERNAL CAROTID ARTERIES: Normal flow related signal. The skull base, petrous, cavernous and supraclinoid segments are bilaterally widely patient. ANTERIOR CEREBRAL ARTERIES: Normal flow related signal. A1 and A2 segments are widely patent. Smaller distal branches unremarkable, as visualized. MIDDLE CEREBRAL ARTERIES: Normal flow related signal. M1 and M2 segments are widely patent. Perisylvian branches grossly symmetric. POSTERIOR CIRCULATION: Basilar Artery: Normal flow related signal. Distal Vertebral Arteries: Normal flow related signal. Posterior Cerebral Arteries: Normal flow related signal. Posterior Inferior Cerebellar Arteries: Normal flow related signal. ANEURYSM/ VASCULAR MALFORMATIONS: None. OTHER FINDINGS: None. IMPRESSION: Normal MR angiography of the brain.
[2017-05-20] MEDS ORDERED: Sodium Chloride 0.45% 1,000 ML IV SCH (18:00)
[2017-05-20] MEDS ORDERED: Midazolam 2 MG/2 ML VIAL ONE (18:13)
--- NOTE | 2017-05-20 18:36 | MRI ---
PROCEDURE: MRI of the thoracic spine dated 05/20/2017 HISTORY: Rule out metastasis. COMPARISON: Comparison made with CT scan chest abdomen pelvis 05/19/2017 which also image the thoracic spine in 3 planes. TECHNIQUE: Multiecho multiplanar sequences were performed through the thoracic spine with and without the use of intravenous contrast. 15 cc of Omniscan injected for this procedure. FINDINGS: The current study reveals multiple on metastatic lesions throughout the visualized lower cervical segments (C3 through C7) and all the thoracic segments. No acute compression fractures nor retropulsed fragments. Note is made however of what appears to represent a posterior buckling of the posterior cortex T11 segment which results in compressive effects on the anterolateral borders of the thecal sac bilaterally reaching but not significantly compress the ventral surface of the cord. Note that early epidural extension of tumor not completely excluded. . There appears to be extension of tumor along the superior margin of the left T12 L1 exit foramen possibly extending from the posterior elements on the left side resulting in narrowing of the exit foramen and compression of the ipsilateral exiting nerve root. Hypertrophic facet joint changes noted at the T11-T12 level particularly on the right side which compresses the right posterolateral border of the spinal cord. No definitive evidence of abnormal signal or contrast enhancement within or along the surfaces of the visualized spinal cord. IMPRESSION: Diffuse metastatic disease every thoracic segment with posterior cortical buckling T11 segment that results in mild compression of the anterolateral margins of the thecal sac bilaterally nearly reaching but not significantly compressing the ventral surface of the cord. Early epidural tumor extension not completely excluded. There appears to be extension of tumor along the superior margin of the left T12 L1 exit foramen possibly extending from the posterior elements on the left side resulting in narrowing of the exit foramen and compression of the ipsilateral exiting nerve root. Hypertrophic facet joint changes noted at the T11-T12 level particularly on the right side which compresses the right posterolateral border of the spinal cord. The there are also metastatic lesions seen throughout nearly all of cervical segments. Recommend followup on MRI of the cervical spine.
--- NOTE | 2017-05-20 21:26 | CT ---
PROCEDURE: CT guided liver biopsy. HISTORY: Infiltrative lung mass with adenopathy. Multiple liver lesions. Evaluate for metastatic disease. PHYSICIAN(S): Lars Alvarado MD. TECHNIQUE: The relative risks and indications of the procedure were explained to the patient and consent obtained. The patient was placed supine on the CT scanner and preliminary images through the liver obtained. Conscious sedation and monitoring were provided throughout the procedure by a nurse. There are innumerable low-attenuation masses in both lobes liver.. A subxyphoid approach was selected and the area prepped and draped in the usual sterile fashion. 1% Xylocaine was used to anesthetize the skin and soft tissues. A 17-gauge guiding needle was advanced into the 5 cm mass in the lateral segment left lobe of the liver.. Its position was confirmed with CT. Using coaxial technique, multiple core biopsies were obtained. The postprocedure images show no evidence of significant hemorrhage. IMPRESSION: 1. CT-guided liver biopsy as described above.
[2017-05-21] MEDS: Albuterol-Ipratrop 3 mg / 0.5 (3 ml) UD IH SCH ×5 (00:14→19:19)
[2017-05-21] MEDS: Morphine 5 MG/ML SYRINGE IVP PRN ×4 (02:02→22:47)
[2017-05-21] MEDS: Dexamethasone 4 mg/1 ml IVP SCH ×4 (02:43→17:13)
--- NOTE | 2017-05-21 04:04 | CON ---
DATE: REFERRING PHYSICIAN: Dr. Yosef Reis. REASON FOR CONSULT: Metastatic disease to lungs, may have chronic obstructive lung disease. HISTORY OF PRESENT ILLNESS: This is a 72-year-old female with past medical history significant for hypertension, diabetes, who has been having low back pain, seen by Pain Management, had MRI of the back done which suggested there is a T10 to T11 lesion, also found to have multiple metastatic lesions in the liver. So she came to ER and admitted because of intractable low back pain requiring morphine. Presently, she feels better, sitting up in a bed, family is at the bed, short of breath with exertion, no chest pain, no nausea, no vomiting, low back pain. No dysuria. No leg pain or leg swelling. PAST MEDICAL HISTORY: Diabetes and hypertension, may have chronic obstructive lung disease. FAMILY HISTORY: No significant cardiopulmonary disease reported. SOCIAL HISTORY: She is one pack smoker. Denies alcohol use. ALLERGIES: NONE KNOWN. MEDICATIONS: She is on Ambien 5 mg at bedtime p.r.n., Colace 100 mg daily, Welchol 625 mg q.i.d., Decadron 4 mg q. 6 hours, Effexor XR 75 mg daily, metformin 500 mg twice a day, heparin 5000 units subcutaneous q. 12 hours, insulin coverage, MiraLax 17 g daily, morphine 4 mg q. 4 hours p.r.n., Nicoderm patch daily, Pristiq 50 mg daily, Protonix 40 mg daily, cholestyramine 4 gm daily, Singulair 10 mg daily, IV fluid half normal saline 80 mL per hour, Tylenol p.r.n., Xanax 0.5 mg three times a day p.r.n., Zofran on p.r.n. basis. REVIEW OF SYSTEMS: No headache, no rhinitis, not much cough, gets short of breath on exertion, has snoring, no chest pain, no nausea. No vomiting. Has low back pain. No dysuria, leg pain or leg swelling. PHYSICAL EXAMINATION: GENERAL: Lying on the bed in no acute distress. VITAL SIGNS: Temperature is 98, heart rate 70, respiratory rate is 20, blood pressure 167/80, pulse oximetry 99% on 3 L nasal cannula. HEENT: Moist mucous membranes. Crowed airway. Mallampati score is 4. NECK: Supple. No JVD. LUNGS: Has a fair airflow with scattered rhonchi. HEART: S1, S2. ABDOMEN: Soft, nontender. No organomegaly. EXTREMITIES: No edema. NEUROLOGIC: Awake and alert, follows simple commands. LABORATORY DATA: Shows hemoglobin 12.8, hematocrit 38.9, WBC 5.8, platelet is 221. INR 1.1, PTT is 23. Sodium 133, potassium 4.0, chloride 98, bicarbonate 24, BUN is 19, creatinine 0.8, glucose is 190, calcium is 10.5, AST 78, ALT 70, alk phos is 161. Albumin is 4.5. Urinalysis shows wbc 5 to 10, rbc 2 to 5. MRI of the thoracic spine shows diffuse metastatic disease at the thoracic segment with posterior cortical bulking T11 segment that result in a mild compression of the anterolateral margin of the thecal sacs bilaterally, nearly reaching but not significantly compressing the ventral surface of the cord that appears to be extension of tumor along the superior margin of the left T12 to L1, possible extending from the posterior element of the left side resulting in narrowing of the existing foramen and compression of the ipsilateral exiting nerve root, heterotrophic facet joint changes noted at the T11-T12 level. There is also metastatic lesion throughout nearly all the cervical segments. Recommended a followup MRI. Had MRI of the head done which shows solitary 3 mm enhancing focus in the right interior frontal lobe, is nonspecific however. Small cortical metastasis cannot be excluded. CAT scan of the chest abdomen and pelvis done yesterday which shows substantial enlargement of the right thyroid lobe with heterogenous enlargement. Bulky mediastinal and hilar adenopathy, subcentimeter prominent perivascular lymph node, conglomerate adenopathy, soft tissue mass, exert mass effect on the right pulmonary artery and branches, in particular upper lobe branches as well as the azygous vein in the surrounding, but does not compress the SVC. There is also periaortic and esophageal adenopathy measuring approximately 2.4 cm, small right pleural effusion, pleural base soft tissue density, as well as multiple liver metastatic disease. IMPRESSION AND PLAN: Seems like this is a metastatic disease, evidence presence in the lungs, bone, liver, may have also chronic lung disease, diabetes, and hypertension. Getting morphine for pain management. Case discussed with Dr. Puente in detail. Scheduled for liver biopsy. sleep apnea precaution, careful with sedation, add p.r.n. inhaled bronchodilator, gastric prophylaxis, deep venous thrombosis prophylaxis. Thank you, and we will follow with you. Robert Eastman MD
[2017-05-21] MEDS: Pantoprazole 40 mg EC Tab PO SCH (05:10)
[2017-05-21 06:57] LABS: ALB/GLOB RATIO 1.4 (1.1-1.8); ALBUMIN 4.1 g/dL (3.0-4.8); ALT/SGPT 57 U/L (7-56); AST/SGOT 71 U/L (14-36); BLOOD UREA NITROGEN 19 mg/dL (7-21); GFR AFRICAN-AMERICAN > 60; GFR NON-AFRICAN AMERICAN > 60
[2017-05-21] MEDS: POLYETHYLENE GLYCOL 3350 17 GM/Dose PACKET PO SCH (09:10)
[2017-05-21] MEDS: Cholestyramine 4 gm/Pkt UD PO SCH (09:11)
[2017-05-21] MEDS: Venlafaxine 75 mg ER Cap PO SCH (09:12)
[2017-05-21] MEDS: Insulin Reg-HIGH-Coverage SC SCH ×5 (09:18→21:49)
[2017-05-21] MEDS: PRISTIQUE PO SCH (09:25)
[2017-05-21 09:41] LABS: HEMOGLOBIN 11.8 g/dL (12.0-16.0); MEAN CELL VOLUME 89.6 fl (80.0-105.0); MEAN CORPUSCULAR HEMOGLOBIN 29.4 pg (25.0-35.0); MEAN CORPUSCULAR HGB CONC 32.8 g/dl (31.0-37.0); MEAN PLATELET VOLUME 9.8 fl (7.0-11.0); RBC 4.02 10^6/uL (3.5-6.1); RED CELL DISTRIBUTION WIDTH 13.5 % (11.5-14.5); WHITE BLOOD COUNT 7.5 10^3/ul (4.5-11.0)
[2017-05-21] MEDS ORDERED: Cholestyramine 4 gm/Pkt UD PO SCH (10:00)
--- NOTE | 2017-05-21 21:17 | PN ---
DATE: 05/21/[address] [facility] on the medical floor. For Dr. Puente. SUBJECTIVE: The patient is a 72-year-old female, seen sitting up in bed with her close friend at the bedside, now being status post liver biopsy for diagnostic purposes as the patient is known to have what appears to be metastatic disease and multiple organ systems being affected. One is referred to previous dictations. At present, she is status post radiation as per Dr. Helen Goyal to her spine with T10-11. With the patient now reporting her walking is significantly improved and also on narcotic analgesics for her pain. The patient has long history of smoking with the primary suspected to be lung cancer. Her mother and father both succumbed to lung cancer as with her brother different form of cancer. With this patient is otherwise now reporting her pain is significantly improved, her appetite is better; however, she is taking steroids to reduce the swelling as indicated. PHYSICAL EXAMINATION: VITAL SIGNS: Temperature is 98.3, pulse 74, respirations 20, blood pressure 150/90, and pulse oximetry 97%. HEENT: Unremarkable. NECK: Supple. HEART: Regular rate. LUNGS: Clear. ABDOMEN: Obese, soft and nontender. EXTREMITIES: No edema. Toes wiggle. SKIN: Warm and dry. NEUROLOGIC: Awake and alert with her ambulation now improved, she reports. LABORATORY DATA: The patient's labs were done. White blood cell count is 7.5, hemoglobin 11.8, hematocrit 36.0, platelet count of 204,000. Chem metabolic panel showing a sodium of 131, chloride of 96, with an AST of 71, ALT of 57, otherwise normal chem metabolic panel. The patient's other testing included an MRI of the thoracic spine done yesterday, which showed diffuse metastatic disease at the thoracic segment with posterior cortical buckling T11 with mild compression of the anterolateral margins of the thecal sac. Early epidural tumor extension cannot be completely excluded with extension of the tumor along the superior margin of T12-L11, existing foramen possibly extending from the posterior elements of left side with narrowing of the exit foramen and compression of the ipsilateral exiting nerve root, hypertrophic facet joint changes noted at T11-T12, particularly the right side which compresses the right posterolateral border of the spinal cord, there is also metastatic lesion seen throughout nearly all the cervical segments. An MRA of her head was done yesterday, it was read as normal MR angiography of the brain. An MRI of the brain was done yesterday, it was read as solitary 3 mm enhancing focus in the right anterior frontal lobe, nonspecific; however, small cortical metastases cannot be excluded. Calcified intraventricular lesions in the fourth ventricle identified seen on the MRI. These tests are compared to CAT scan of the head done on 05/19/2017, which showed no acute intracranial pathology identified, two peripheral calcified densities in the fourth ventricle, possibly typical choroid plexus calcifications. A CT scan of the chest, abdomen and pelvis were done on 05/19/2017 with substantial enlargement of the right thyroid lobe heterogenous enhance with bulky mediastinal and hilar adenopathy, subcentimeter prominent perivascular lymph nodes, conglomerate adenopathy, soft tissue mass, exerts mass effect in the right pulmonary artery and branches, in particular upper lobe branches as well as the azygous vein in the surrounding, but does not compress the superior vena cava, periaortic and esophageal adenopathies also present, measuring 2.4 cm in short axis, appearance consistent with malignant neoplasm, small right pleural effusion, pleural base soft tissue density, probably extent of the right major fissure not felt, which represents fluid measuring 40 Hounsfield units, additional multiple small pleural base nodule densities along the right middle lower lobes and numerous hepatic hypodense masses consistent with metastases, enlarged mesenteric and kiran hepatis bulky adenopathy as above, enlarged lymph node noted to the adjacent to the right adrenal gland. It should be noted the patient did have a consult by Dr. Anthony Red, Neurosurgeon, with a concern for metastatic tumor with the patient remaining neurologically intact with no surgical intervention indicated at this time. 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 PLAN: The plan for this patient after conversation with Dr. Puente is to continue present medical regimen. We will give a nicotine patch. We will continue present medical regimen with her Xanax cut back 0.5 mg three times a day if needed for anxiety. We will also give morphine for her pain with Decadron 4 mg IV q. 6 hours to continue with GI prophylaxis with Protonix. Consults with Dr. Mitchell, Neurology; Dr. Helen Goyal, Radiation Oncology; Dr. Pineda, Neurosurgery; Dr. Lars Alvarado, Vascular; Dr. Eastman, Pulmonary; and Dr. Vail, her primary doctor are appreciated. Prognosis for this patient is guarded. We will monitor clinically and with labs. We also asked her tumor markers to be done. Yosef Reis MD
--- NOTE | 2017-05-21 22:29 | PN ---
DATE: 05/21/2017 PULMONARY PROGRESS NOTE REFERRING PHYSICIAN: Yosef Reis MD SUBJECTIVE: She is lying in the bed, head at 45 degrees, sister is at bedside. Night was unremarkable. Status post liver biopsy. No headache. No rhinitis. Able to get up and walk a little bit with the therapist. Still having low back pain. No nausea. No vomiting. No diarrhea. No leg pain. No leg swelling. OBJECTIVE: GENERAL: In no acute distress. VITAL SIGNS: Temperature is 98, heart rate is 78, respiratory rate is 20, blood pressure 177/87, pulse oximetry is 97% on 2 L nasal cannula. HEENT: Moist mucous membranes. Crowded airway. NECK: Supple. No JVD. LUNGS: Have a fair airflow with rhonchi. HEART: S1 and S2. ABDOMEN: Soft, nontender. No organomegaly. EXTREMITIES: No edema. NEUROLOGIC: Awake, alert, able to follow simple commands. MEDICATIONS: She is on Ambien 5 mg at bedtime p.r.n., Colace 100 mg daily, also getting Welchol 625 mg four times daily, Decadron 4 mg q.6 hours, DuoNeb q.6 hours, Effexor XR 75 mg daily, metformin 500 mg twice a day, heparin 5000 units subcutaneous q.12 hours, insulin coverage, MiraLax 17 gm p.o. daily, morphine 4 mg IV q.4 hours p.r.n., Nicoderm patch daily, also Pepcid 40 mg at bedtime, Pristiq 50 mg daily, Protonix 40 mg daily, cholestyramine 4 gm p.o. daily, Singulair 10 mg daily, Tylenol p.r.n., Xanax 0.5 mg three times a day p.r.n., Zofran 4 mg q.4 hours p.r.n. LABORATORY DATA: Shows hemoglobin 11.8, hematocrit 36.7, WBC 7.5, platelet is 204. Sodium 131, potassium of 4.3, chloride of 96, bicarbonate 28, BUN 19, creatinine 0.6, glucose 139, calcium 10.0, AST 71, ALT 57, alkaline phosphatase is 126, albumin is 4.1. Microbiology, urine has gram-positive cocci, ID is pending. IMPRESSION AND PLAN: Metastatic disease, probably primary of the lung, has mediastinal lesions, lung lesion, liver lesion, spine involvement, chronic lung disease, diabetes, hypertension, may have sleep apnea syndrome. Case discussed with Oncology Services. Also spoke to the patient . Clinically, she is doing okay. Continue bronchodilator, supplement oxygen, pain management, gastric prophylaxis, deep venous thrombosis prophylaxis. She already started on radiation to her spine; bowel regimen, already on MiraLax. Thank you and we will follow with you. Robert Eastman MD
[2017-05-22] MEDS: Dexamethasone 4 mg/1 ml IVP SCH ×4 (00:30→17:31)
[2017-05-22] MEDS: Albuterol-Ipratrop 3 mg / 0.5 (3 ml) UD IH SCH ×4 (02:15→22:05)
[2017-05-22] MEDS: Pantoprazole 40 mg EC Tab PO SCH (05:32)
[2017-05-22] MEDS: Morphine 5 MG/ML SYRINGE IVP PRN ×3 (06:43→21:57)
--- NOTE | 2017-05-22 07:24 | CP.PCM.PN ---
Subjective - Date & Time of Evaluation Date of Evaluation: 05/22/17 Time of Evaluation: 07:21 - Subjective Subjective: Ms. Ye was seen and examined at the bedside. She is alert, oriented in all spheres. She further states of her fear to be dependent to pain medication. She is able to follow all commands. She tries to ambulate at her beside, but her legs occasionally gets weak. There are no untoward events overnight. Objective - Vital Signs/Intake and Output Vital Signs (last 24 hours): Temp Pulse Resp BP Pulse Ox 97.7 F 78 20 177/87 H 97 05/21/17 16:00 05/21/17 16:00 05/21/17 16:00 05/21/17 16:00 05/21/17 16:00 Intake and Output: 05/22/17 05/22/17 06:59 18:59 Intake Total 420 Balance 420 - Medications Medications: Current Medications Acetaminophen (Tylenol 325mg Tab) 650 mg PO Q4H PRN PRN Reason: Fever >100.4 F Last Admin: 05/19/17 12:21 Dose: 650 mg Albuterol/Ipratropium (Duoneb 3 Mg/0.5 Mg (3 Ml) Ud) 3 ml IH [id number] [facility] Last Admin: 05/22/17 02:15 Dose: Not Given Alprazolam (Xanax) 0.5 mg PO TID PRN PRN Reason: Anxiety Last Admin: 05/21/17 22:45 Dose: 0.5 mg Cholestyramine Resin (Questran) 4 gm PO DAILY KIMMY Last Admin: 05/21/17 09:11 Dose: 4 gm Dexamethasone (Decadron Inj) 4 mg IVP Q6H KIMMY Last Admin: 05/22/17 05:32 Dose: 4 mg Docusate Sodium (Colace) 100 mg PO DAILY KIMMY Last Admin: 05/21/17 09:12 Dose: 100 mg Famotidine (Pepcid) 40 mg PO HS [facility] Last Admin: 05/21/17 21:49 Dose: 40 mg Heparin Sodium (Porcine) (Heparin) 5,000 units SC Q12 KIMMY PRN Reason: Protocol Last Admin: 05/21/17 21:49 Dose: 5,000 units Insulin Human Regular (Humulin R High) 0 units SC ACHS KIMMY PRN Reason: Protocol Last Admin: 05/21/17 21:49 Dose: 2 units Metformin HCl (Glucophage Xr) 500 mg PO BID [facility] Last Admin: 05/21/17 17:12 Dose: 500 mg Montelukast Sodium (Singulair) 10 mg PO DAILY [facility] Last Admin: 05/21/17 09:12 Dose: 10 mg Morphine Sulfate (Morphine) 4 mg IVP Q4H PRN PRN Reason: Pain, moderate (4-7) Last Admin: 05/22/17 06:43 Dose: 4 mg Nicotine (Nicoderm Cq) 1 patch TD DAILY [facility] Last Admin: 05/21/17 09:14 Dose: 1 patch Nicotine (Nicoderm Cq) 1 patch TD DAILY [facility] Last Admin: 05/21/17 09:13 Dose: 1 patch Non-Formulary Medication (Colesevelam Hcl [Welchol]) 625 mg PO QID [facility] Last Admin: 05/21/17 21:57 Dose: Not Given Non-Formulary Medication (Pristique) 50 mg PO DAILY [facility] Last Admin: 05/21/17 09:25 Dose: Not Given Ondansetron HCl (Zofran Inj) 4 mg IVP Q4H PRN PRN Reason: Nausea/Vomiting Last Admin: 05/19/17 12:21 Dose: 4 mg Pantoprazole Sodium (Protonix Ec Tab) 40 mg PO 0600 [facility] Last Admin: 05/22/17 05:32 Dose: 40 mg Polyethylene Glycol (Miralax) 17 gm PO DAILY [facility] Last Admin: 05/21/17 09:10 Dose: 17 gm Venlafaxine HCl (Effexor Xr) 75 mg PO DAILY [facility] Last Admin: 05/21/17 09:12 Dose: 75 mg Zolpidem Tartrate (Ambien) 5 mg PO HS PRN; Protocol PRN Reason: Insomnia Last Admin: 05/22/17 00:30 Dose: 5 mg - Labs Labs: 05/21/17 06:00 05/21/17 06:35 PT 12.8 SECONDS (9.4-12.5) H 05/19/17 12:10 INR 1.11 (0.93-1.08) H 05/19/17 12:10 APTT 23.1 Seconds (25.1-36.5) L 05/19/17 12:10 - Constitutional Appears: No Acute Distress - Head Exam Head Exam: NORMAL INSPECTION - Neurological Exam Neurological Exam: Alert, Awake, Oriented x3 Neuro motor strength exam: Left Upper Extremity: 5, Right Upper Extremity: 5, Left Lower Extremity: 5, Right Lower Extremity: 5 Additional comments: She is able to answer questions appropriately and follow commands. Sensation remains intact. Assessment and Plan (1) Epidural mass Assessment & Plan: Case discussed with Dr. Martínez, continue all current medical regimen. Recommend PT / OT eval and treat. Recommend pain management. MRi of the thoracic (05/14/2017)-revealed numerous sites of bone marrow replacement. There was epidural disease at T10-11 with mild to moderate spinal stenosis. There was mild left T10-11 foraminal narrowing due to tumor expansions. There was no cord compression. MRA of the head- normal MR angiography of the brain. MRI of the brain with/ without contrast- Solitary 3 mm enhancing focus in the right posterior anterior frontal lobe is non specific, however small cortical metastasis cannot br excluded. The calcified intraventricular lesions in the 4th ventricle is identified on the CT are not very are not very well seen on MRI. Status: Acute
[2017-05-22 07:42] LABS: MEAN CELL VOLUME 88.3 fl (80.0-105.0); MEAN CORPUSCULAR HEMOGLOBIN 29.1 pg (25.0-35.0); MEAN PLATELET VOLUME 9.8 fl (7.0-11.0); RBC 4.12 10^6/uL (3.5-6.1); RED CELL DISTRIBUTION WIDTH 13.4 % (11.5-14.5); WHITE BLOOD COUNT 7.3 10^3/ul (4.5-11.0)
[2017-05-22 08:06] LABS: ALB/GLOB RATIO 1.4 (1.1-1.8); ALBUMIN 4.3 g/dL (3.0-4.8); ALT/SGPT 66 U/L (7-56); AST/SGOT 80 U/L (14-36); BLOOD UREA NITROGEN 17 mg/dL (7-21); GFR AFRICAN-AMERICAN > 60; GFR NON-AFRICAN AMERICAN > 60
[2017-05-22] MEDS: Insulin Reg-HIGH-Coverage SC SCH ×4 (08:17→21:23)
[2017-05-22] MEDS: Venlafaxine 75 mg ER Cap PO SCH (09:00)
[2017-05-22] MEDS: PRISTIQUE PO SCH (09:02)
[2017-05-22] MEDS: POLYETHYLENE GLYCOL 3350 17 GM/Dose PACKET PO SCH (09:02)
[2017-05-22] MEDS: Cholestyramine 4 gm/Pkt UD PO SCH (09:03)
--- NOTE | 2017-05-22 10:41 | CP.PCM.CON ---
History of Present Illness - History of Present Illness History of Present Illness: 72 yr old woman, with PMH of DM, HTN, MDD, who started to have back pain about 3 years ago, intermittently, and then was evaluated by her pmd about 2 weeks, ago, found to have an epidural mass. Patient was found to have an epidural tumor with no cord compression at T10-11 as found on thoracic MRI. Lesions were also found in the liver, likely to be metastasis. Patient was then evaluated by Dr. Puente who recommended patient come to the hospital for full workup. She was admitted to the hospital and had She denies urinary incontinence or lower extremity weakness. Denies chest pain, shortness of breath , focal deficits, fever, chills, dysuria, headache. PMH: DM, HTN, and MDD Surgical Hx: Dermoid tumor removal, C/S x 2 Family Hx: Noncontributory Social Hx: Current 1 ppd smoker x 50 years. Social alcohol use, denies illicit drugs Medications: Reviewed, as per MAR Allergies: NKDA Past Patient History - Past Social History Smoking Status: Heavy Smoker > 10 Cigarettes Daily Alcohol: Social Home Situation {Lives}: With Family - CARDIAC Hx Cardiac Disorders: Yes - PULMONARY Hx Respiratory Disorders: No - NEUROLOGICAL Hx Neurological Disorder: No - HEENT Hx HEENT Problems: No - RENAL Hx Chronic Kidney Disease: No - ENDOCRINE/METABOLIC Hx Endocrine Disorders: Yes Hx Diabetes Mellitus Type 2: Yes - HEMATOLOGICAL/ONCOLOGICAL Hx Blood Disorders: Yes - INTEGUMENTARY Hx Dermatological Problems: No - MUSCULOSKELETAL/RHEUMATOLOGICAL Hx Musculoskeletal Disorders: Yes Hx Arthritis: Yes - GASTROINTESTINAL Hx Gastrointestinal Disorders: No - GENITOURINARY/GYNECOLOGICAL Hx Genitourinary Disorders: Yes - PSYCHIATRIC Hx Psychophysiologic Disorder: Yes Hx Anxiety: Yes Hx Depression: Yes Hx Substance Use: No - SURGICAL HISTORY Hx Section: Yes Hx Orthopedic Surgery: Yes (R KNEE) - ANESTHESIA Hx Anesthesia: Yes Meds Allergies/Adverse Reactions: Allergies Allergy/AdvReac Type Severity Reaction Status Date / Time Sulfa (Sulfonamide Allergy ANAPHYLAXIS Verified 05/19/17 14:07 Antibiotics) - Medications Medications: Current Medications Acetaminophen (Tylenol 325mg Tab) 650 mg PO Q4H PRN PRN Reason: Fever >100.4 F Last Admin: 05/19/17 12:21 Dose: 650 mg Albuterol/Ipratropium (Duoneb 3 Mg/0.5 Mg (3 Ml) Ud) 3 ml [facility] [id number] [facility] Alprazolam (Xanax) 0.5 mg PO TID PRN PRN Reason: Anxiety Cholestyramine Resin (Questran) 4 gm PO DAILY [facility] Dexamethasone (Decadron Inj) 4 mg IVP Q6H [facility] Last Admin: 05/20/17 18:19 Dose: 4 mg Docusate Sodium (Colace) 100 mg PO DAILY [facility] Last Admin: 05/20/17 10:45 Dose: Not Given Famotidine (Pepcid) 40 mg PO HS [facility] Heparin Sodium (Porcine) (Heparin) 5,000 units SC Q12 KIM[facility] PRN Reason: Protocol Last Admin: 05/20/17 10:34 Dose: 5,000 units Sodium Chloride (Sodium Chloride 0.45%) 1,000 mls @ 80 mls/hr IV .[id number] [facility] Stop: 05/21/17 06:00 Insulin Human Regular (Humulin R High) 0 units SC ACHS [facility] PRN Reason: Protocol Last Admin: 05/20/17 18:37 Dose: Not Given Metformin HCl (Glucophage Xr) 500 mg PO BID [facility] Last Admin: 05/20/17 18:19 Dose: 500 mg Montelukast Sodium (Singulair) 10 mg PO DAILY [facility] Last Admin: 05/20/17 10:34 Dose: 10 mg Morphine Sulfate (Morphine) 4 mg IVP Q4H PRN PRN Reason: Pain, moderate (4-7) Last Admin: 05/20/17 11:42 Dose: 4 mg Nicotine (Nicoderm Cq) 1 patch TD DAILY [facility] Last Admin: 05/20/17 18:19 Dose: 1 patch Nicotine (Nicoderm Cq) 1 patch TD DAILY [facility] Non-Formulary Medication (Colesevelam Hcl [Welchol]) 625 mg PO QID [facility] Last Admin: 05/20/17 18:20 Dose: Not Given Non-Formulary Medication (Pristique) 50 mg PO DAILY [facility] Last Admin: 05/20/17 10:48 Dose: Not Given Ondansetron HCl (Zofran Inj) 4 mg IVP Q4H PRN PRN Reason: Nausea/Vomiting Last Admin: 05/19/17 12:21 Dose: 4 mg Pantoprazole Sodium (Protonix Ec Tab) 40 mg PO 0600 [facility] Last Admin: 05/20/17 06:36 Dose: 40 mg Polyethylene Glycol (Miralax) 17 gm PO DAILY [facility] Last Admin: 05/20/17 10:43 Dose: Not Given Venlafaxine HCl (Effexor Xr) 75 mg PO DAILY [facility] Zolpidem Tartrate (Ambien) 5 mg PO HS PRN; Protocol PRN Reason: Insomnia Results - Vital Signs Recent Vital Signs: Last Vital Signs Temp 98.4 F 05/20/17 18:10 Pulse 74 05/20/17 18:10 Resp 16 05/20/17 18:10 BP 167/84 H 05/20/17 18:10 Pulse Ox 99 05/20/17 18:10 - Labs Result Diagrams: 05/22/17 06:15 05/22/17 06:15 Labs: Laboratory Results - last 24 hr 05/19/17 05/20/17 05/20/17 21:50 06:00 06:00 WBC 5.8 D RBC 4.32 Hgb 12.8 Hct 38.9 MCV 90.0 MCH 29.6 MCHC 32.9 RDW 13.5 Plt Count 221 MPV 9.9 Sodium 133 Potassium 4.0 Chloride 98 Carbon Dioxide 24 Anion Gap 15 BUN 19 Creatinine 0.8 Est GFR ( Amer) > 60 Est GFR (Non-Af Amer) > 60 POC Glucose (mg/dL) 131 H Random Glucose 190 H Calcium 10.5 Total Bilirubin 0.4 AST 78 H ALT 70 H Alkaline Phosphatase 161 H Total Protein 7.7 Albumin 4.5 Globulin 3.2 Albumin/Globulin Ratio 1.4 05/20/17 05/20/17 05/20/17 07:58 11:04 18:27 WBC RBC Hgb Hct MCV MCH MCHC RDW Plt Count MPV Sodium Potassium Chloride Carbon Dioxide Anion Gap BUN Creatinine Est GFR ( Amer) Est GFR (Non-Af Amer) POC Glucose (mg/dL) 151 H 194 H 146 H Random Glucose Calcium Total Bilirubin AST ALT Alkaline Phosphatase Total Protein Albumin Globulin Albumin/Globulin Ratio Assessment & Plan - Assessment and Plan (Free Text) Assessment: 72 yr old woman with epidural mets lesion as etiology of her back pain, with 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 There is no neurological indication that she has brain mets. MRi Brain will be ordered. Plan: 1. MRI Brain with and without zuhair 2. No need for AED 3. Decadron contraindicated at this time, spoke to , but if patient's symptoms progress will start. 4. PT as tolerated
--- NOTE | 2017-05-22 19:32 | PN ---
DATE: 05/22/2017 This is [facility] visit on the medical floor. For Dr. Puente. SUBJECTIVE: The patient is a 72-year-old female, seen sitting up in bed, with friend at the bedside. Reporting that her pain is significantly improved on narcotic analgesic being taken. With the patient now status post initial treatment with radiation as per Dr. Helen Goyal along with biopsy done by Dr. Lars Alvarado 2 days prior. She was otherwise here for evaluation of what appears to be metastatic lung cancer treatment with tissue diagnosis pending. OBJECTIVE/PHYSICAL EXAM: VITAL SIGNS: Temperature 97.3, pulse 73, respirations 20, blood pressure 177/87 and pulse ox 96%. HEENT: Unremarkable. NECK: Supple HEART: Regular rate. LUNGS: Rale rhonchi. ABDOMEN: Obese, soft and nontender. EXTREMITIES: No edema. SKIN: Warm and dry. 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 She reports that her gait is significantly improved after steroids and narcotic analgesics were given for her pain. The patient continues on Nicoderm as she has a strong history of smoking. LABORATORY DATA: The patient's labs were done. White blood cell count of 7.3, hemoglobin of 12.3, hematocrit of 36.4 and platelet count of 190,000. With a chem metabolic panel showing a sodium of 129, chloride of 93, creatinine of 0.5, BUN of 17 with a nonfasting glucose of 160, AST of 80 and ALT of 66. Her CA values 13.9 with hemoglobin A1c pending. ASSESSMENT: For this patient is that of newly diagnosed probable lung origin metastatic disease with metastases to the liver, bone, intractable pain of cancer, diabetes mellitus, obesity, hypertension, depression, anxiety, smoker, chronic obstructive pulmonary disease. PLAN: For this patient after conversation with Dr. Puente is to continue present medical regimen. We will await tissue diagnosis biopsy, which is pending. She will resume her radiation as per Dr. Helen Goyal, tomorrow. We will add salt to her diet. She might to have early SIADH parameters. We will monitor clinically with labs. Further recommendations as per consultants. Prognosis for this patient is guarded. Yosef Reis MD [facility] # [id number]
--- NOTE | 2017-05-22 23:39 | PN ---
DATE: 05/22/2017 REFERRING PHYSICIAN: Dr. Yosef Reis. SUBJECTIVE: The patient is lying in the bed, head at 45 degrees. Friends are bedside. Night was unremarkable. No headache. No rhinitis. No nausea. No vomiting. Low back pain, is better. No leg pain or leg swelling. OBJECTIVE: GENERAL: In no acute distress. VITAL SIGNS: Temperature is 98, heart rate is 80, respiratory rate is 18, blood pressure is 181/80 and pulse ox 96% on 3 liter nasal cannula. HEENT: Moist mucous membranes. Crowded airway. Mallampati score is IV. NECK: Supple. No JVD. LUNGS: Have a fair airflow with rhonchi. HEART: S1 and S2. ABDOMEN: Soft and nontender. No organomegaly. EXTREMITIES: No edema. NEUROLOGICAL: Awake and alert, follows simple commands. MEDICATIONS: She is on Ambien 5 mg at bedtime p.r.n., Colace 100 mg daily, Welchol 625 mg q.i.d., Decadron 4 mg q.6 hours, DuoNeb q.6 hours, Effexor XR 75 mg daily, Glucophage XR 500 mg twice a day, heparin 5000 units subcu q. 12 hours, MiraLax 17 gm p.o. daily, morphine 4 mg q.4 hours p.r.n., Nicoderm patch daily, Pepcid 40 mg daily, Pristiq 50 mg daily, Protonix 40 mg daily, cholestyramine 4 gm daily, Singulair 10 mg daily, Tylenol p.r.n.basis, Xanax 0.5 mg three times a day p.r.n., Zofran p.r.n. basis. LABORATORY DATA: Shows hemoglobin 12.0, hematocrit 36.4, WBC 7.3, platelet count is 190. Sodium 129, potassium 4.1, chloride 93, bicarbonate 26, BUN 17, creatinine 0.5, glucose 160, calcium is 10. AST 80, ALT 66, alkaline phosphatase is 153, albumin is 4.3. 13.9. Microbiology, urine culture had gram-positive cocci. IMPRESSION AND PLAN: Metastatic disease, probably primary lung, mediastinal lesions, lung lesion, liver lesion, spine involvement, chronic lung disease, diabetes, hypertension, sleep apnea syndrome. Pulmonary point of view, she is doing okay. Continue bronchodilator, pain management, physical therapy, out of bed to chair, may ambulate under supervision, waiting for the result of biopsy. We will readjust blood pressure medication. Thank you and we will follow with you. Robert Eastman MD
[2017-05-23] MEDS: Dexamethasone 4 mg/1 ml IVP SCH ×5 (00:16→23:44)
[2017-05-23] MEDS: Albuterol-Ipratrop 3 mg / 0.5 (3 ml) UD IH SCH ×4 (02:10→19:54)
[2017-05-23] MEDS: Morphine 5 MG/ML SYRINGE IVP PRN ×4 (05:34→22:21)
[2017-05-23 06:30] LABS: BASO # 0.01 K/mm3 (0.0-2.0); BASO % 0.1 % (0.0-3.0); GRAN # 6.81 (1.4-6.5); GRAN % 91.1 % (50.0-68.0); HEMOGLOBIN 12.8 g/dL (12.0-16.0); LYMPH # 0.3 (1.2-3.4); LYMPH % 4.1 % (22.0-35.0); MEAN CELL VOLUME 87.7 fl (80.0-105.0); MEAN CORPUSCULAR HEMOGLOBIN 29.2 pg (25.0-35.0); MEAN CORPUSCULAR HGB CONC 33.3 g/dl (31.0-37.0); MEAN PLATELET VOLUME 9.6 fl (7.0-11.0); MONO # 0.4 (0.1-0.6); MONO % 4.7 % (1.0-6.0); PLATELET COUNT 205 10^3/uL (120.0-450.0); RBC 4.38 10^6/uL (3.5-6.1); RED CELL DISTRIBUTION WIDTH 13.5 % (11.5-14.5); WHITE BLOOD COUNT 7.5 10^3/ul (4.5-11.0)
[2017-05-23] MEDS: Pantoprazole 40 mg EC Tab PO SCH (06:38)
--- NOTE | 2017-05-23 07:11 | CP.PCM.PN ---
Subjective - Date & Time of Evaluation Date of Evaluation: 05/23/17 Time of Evaluation: 07:07 - Subjective Subjective: Ms. Ye was seen and examined at the bedside. She is alert, oriented in all spheres. She is anxious that her blood pressure was elevated this morning 186/98. morning dose of norvasc was given to the patient. Explained some reasons why blood pressure can change and if it maintain high, then medications needs to be adjusted. She is requesting for physical exercise to strengthen her lower extremities with her fear of falling. She is able to follow simple commands.There was no untoward events overnight. Objective - Vital Signs/Intake and Output Vital Signs (last 24 hours): Temp Pulse Resp BP Pulse Ox 98.3 F 95 H 20 182/98 H 97 05/22/17 16:00 05/22/17 18:24 05/22/17 16:00 05/23/17 06:41 05/22/17 16:00 Intake and Output: 05/23/17 05/23/17 06:59 18:59 Intake Total 1440 Balance 1440 - Medications Medications: Current Medications Acetaminophen (Tylenol 325mg Tab) 650 mg PO Q4H PRN PRN Reason: Fever >100.4 F Last Admin: 05/19/17 12:21 Dose: 650 mg Albuterol/Ipratropium (Duoneb 3 Mg/0.5 Mg (3 Ml) Ud) 3 ml IH [id number] [facility] Last Admin: 05/23/17 02:10 Dose: Not Given Alprazolam (Xanax) 0.5 mg PO TID PRN PRN Reason: Anxiety Last Admin: 05/22/17 21:47 Dose: 0.5 mg Amlodipine Besylate (Norvasc) 5 mg PO DAILY [facility] Last Admin: 05/23/17 06:41 Dose: 5 mg Cholestyramine Resin (Questran) 4 gm PO DAILY [facility] Last Admin: 05/22/17 09:03 Dose: 4 gm Dexamethasone (Decadron Inj) 4 mg IVP Q6H [facility] Last Admin: 05/23/17 05:34 Dose: 4 mg Docusate Sodium (Colace) 100 mg PO DAILY [facility] Last Admin: 05/22/17 08:59 Dose: 100 mg Famotidine (Pepcid) 40 mg PO HS [facility] Last Admin: 05/22/17 21:47 Dose: 40 mg Heparin Sodium (Porcine) (Heparin) 5,000 units SC Q12 [facility] PRN Reason: Protocol Last Admin: 05/22/17 21:47 Dose: 5,000 units Insulin Human Regular (Humulin R High) 0 units SC ACHS [facility] PRN Reason: Protocol Last Admin: 05/22/17 21:23 Dose: Not Given Metformin HCl (Glucophage Xr) 500 mg PO BID [facility] Last Admin: 05/22/17 17:31 Dose: 500 mg Montelukast Sodium (Singulair) 10 mg PO DAILY [facility] Last Admin: 05/22/17 09:03 Dose: 10 mg Morphine Sulfate (Morphine) 4 mg IVP Q4H PRN PRN Reason: Pain, moderate (4-7) Last Admin: 05/23/17 05:34 Dose: 4 mg Nicotine (Nicoderm Cq) 1 patch TD DAILY [facility] Last Admin: 05/22/17 09:02 Dose: 1 patch Nicotine (Nicoderm Cq) 1 patch TD DAILY [facility] Last Admin: 05/22/17 09:02 Dose: 1 patch Non-Formulary Medication (Colesevelam Hcl [Welchol]) 625 mg PO QID [facility] Last Admin: 05/22/17 22:00 Dose: Not Given Non-Formulary Medication (Pristique) 50 mg PO DAILY [facility] Last Admin: 05/22/17 09:02 Dose: Not Given Ondansetron HCl (Zofran Inj) 4 mg IVP Q4H PRN PRN Reason: Nausea/Vomiting Last Admin: 05/19/17 12:21 Dose: 4 mg Pantoprazole Sodium (Protonix Ec Tab) 40 mg PO 0600 [facility] Last Admin: 05/23/17 06:38 Dose: Not Given Polyethylene Glycol (Miralax) 17 gm PO DAILY [facility] Last Admin: 05/22/17 09:02 Dose: 17 gm Venlafaxine HCl (Effexor Xr) 75 mg PO DAILY [facility] Last Admin: 05/22/17 09:00 Dose: 75 mg Zolpidem Tartrate (Ambien) 5 mg PO HS PRN; Protocol PRN Reason: Insomnia Last Admin: 05/23/17 00:16 Dose: 5 mg - Labs Labs: 05/23/17 06:00 05/22/17 06:15 PT 12.8 SECONDS (9.4-12.5) H 05/19/17 12:10 INR 1.11 (0.93-1.08) H 05/19/17 12:10 APTT 23.1 Seconds (25.1-36.5) L 05/19/17 12:10 - Constitutional Appears: No Acute Distress - Head Exam Head Exam: NORMAL INSPECTION - Neurological Exam Neurological Exam: Alert, Awake, Oriented x3 Neuro motor strength exam: Left Upper Extremity: 5, Right Upper Extremity: 5, Left Lower Extremity: 5, Right Lower Extremity: 5 Additional comments: neurological unchanged from previous examination. Assessment and Plan (1) Epidural mass Assessment & Plan: Case discussed with Dr. Mitchell, continue all current medical current medical and physical therapy. There is no new recommendations from neurology. Status: Acute
[2017-05-23 07:16] LABS: ALB/GLOB RATIO 1.5 (1.1-1.8); ALBUMIN 4.5 g/dL (3.0-4.8); ALT/SGPT 79 U/L (7-56); AST/SGOT 96 U/L (14-36); BLOOD UREA NITROGEN 18 mg/dL (7-21); GFR AFRICAN-AMERICAN > 60; GFR NON-AFRICAN AMERICAN > 60
[2017-05-23 09:03] LABS: LYMPHOCYTE 5 % (22.0-35.0); MONOCYTE 5 % (1.0-6.0); NEUTROPHIL 90 % (50.0-70.0); PLATELET ESTIMATE NORMAL (NORMAL)
[2017-05-23] MEDS: Insulin Reg-HIGH-Coverage SC SCH ×4 (11:48→22:07)
[2017-05-23] MEDS: Venlafaxine 75 mg ER Cap PO SCH (11:48)
[2017-05-23] MEDS: POLYETHYLENE GLYCOL 3350 17 GM/Dose PACKET PO SCH ×2 (11:49→11:53)
[2017-05-23] MEDS: PRISTIQUE PO SCH (11:50)
[2017-05-23] MEDS: Cholestyramine 4 gm/Pkt UD PO SCH (11:50)
[2017-05-23] MEDS: Lidocaine 5% Patch TD SCH (16:06)
--- NOTE | 2017-05-24 01:45 | PN ---
DATE: 05/23/2017 PULMONARY PROGRESS NOTE SUBJECTIVE: Patient is lying in the bed head at 45 degrees. Family at bedside. Night was unremarkable. Mild cough. No sputum production. No nausea, no vomiting. No diarrhea. Has a better urinary control since the radiation. No leg pain or leg swelling. OBJECTIVE: GENERAL: In no acute distress. VITAL SIGNS: Temperature is 98, heart rate is 100, respiratory rate is 20, blood pressure 140/77, pulse ox 94% on nasal cannula. HEENT: Moist mucous membranes. Crowded airway. NECK: Supple. No JVD. LUNGS: Has fair airflow with few rhonchi. HEART: S1 and S2. ABDOMEN: Soft, nontender. No organomegaly. EXTREMITIES: There is not much edema. NEUROLOGIC: Awake, alert, follows simple command. MEDICATIONS: She is on Ambien 5 mg at bedtime p.r.n., Colace 100 mg daily, Welchol 625 mg q.i.d., Decadron 4 mg q. 6 hours, DuoNeb q. 6 hours, Effexor XR 75 mg daily, metformin 500 mg twice a day, heparin 5000 units subcu q.12 hours, insulin coverage, Lidoderm patch at affected area, MiraLax 17 g daily, morphine 4 g IV q. 3 hours p.r.n., Nicoderm patch daily, Norvasc 10 mg daily, Pepcid 40 mg at bedtime, Pristiq 50 mg daily, Protonix 40 mg daily, cholestyramine 4 g daily, Singulair 10 mg daily, Tylenol p.r.n., Xanax 0.5 mg q. 8 hours p.r.n. and Zofran p.r.n. basis. LABORATORY DATA: Shows hemoglobin 12.8, hematocrit 38.4, WBC 7.5, platelet count is 205. Sodium 128, potassium 4.2, chloride 92, bicarbonate 24, BUN 18, creatinine 0.6, glucose 193, calcium 10.0, AST 96, ALT 79, alk phos is 197. Albumin is 4.5. Urine culture has gram-positive cocci. IMPRESSION AND PLAN: Metastatic disease, probably has a primary lung cancer, mediastinal lesion, lung lesion, liver lesion, spine involvement, chronic lung disease, diabetes, hypertension, sleep apnea syndrome, hyponatremia. Spoke to the patient and family at bedside. All the questions answered. Pathology report is still pending. Continue bronchodilator, keep head at 45 degrees. Discouraged free water, try to drink balance sports drink with persistently high sodium, may have to add sodium tablets, gastric prophylaxis, deep venous thrombosis prophylaxis. Thank you and we will follow with you. Robert Eastman MD
[2017-05-24] MEDS: Albuterol-Ipratrop 3 mg / 0.5 (3 ml) UD IH SCH ×4 (01:46→19:50)
--- NOTE | 2017-05-24 02:47 | PN ---
DATE: ONCOLOGY NOTE LOCATION: The patient is in room 366, bed 1. PROBLEM: This is a 72-year-old female, who was admitted on 05/19/2017 with progressively worsening back pain, radiating anteriorly, mostly on the right side, radiating to the breast in the inframammary region, progressively worsening over the past several days, had an MRI of the spine done as an outpatient when she was being seen by the pain MD in their office. The patient had an MRI of the thoracic spine done in the outpatient center of [facility] and was noted to have extensive metastatic disease in the spine with epidural cord compression at T10 and T11. Based on this, the patient was advised to see me right away. The test was done on 05/04/2017, was seen by the pain doctor on 05/17/2017. I saw the patient on 05/18/2017, and the patient was advised to get admitted the same day, but she had personal issues to take care of, so very next day in the morning which is 05/19/2017, the patient was admitted to the hospital of the emergency room, was seen right away by Neurology, Neurosurgery, Radiation Oncology, and Interventional Radiology. The patient was started on IV Decadron. The patient was then subsequently seen by Dr. Goyal, radiation oncologist, rapid sequence scans were done including CAT scan of the head, neck, chest, abdomen and pelvis, along with MRI, MRA of the head as well. All of these were consistent with extensive metastatic disease, primarily arising in the lung, the right upper lobe, encroaching on the pulmonary artery, extensive mediastinal disease, retroperitoneal disease, liver metastasis and extensive bone metastasis as well. 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 Goyal to the thoracic spine. The patient has received so far 3 treatments including the first treatment on the day of admission on . The patient has been maintained on PPI and IV Decadron, she has been getting IV narcotics of morphine every three hours of 4 mg which seems to be controlling the pain, pain on pain scale is 0 to 10, was 9 on admission, is down to now 6. She still requires a pain medicine. In addition to that, the patient has been put on nicotine patches, along with it, she is getting nebulizer treatments for respiratory issue, and she is also on Xanax and in addition to that, the patient has been continuing on her other medications which have included the antidepressants. Subjectively, the patient is seen lying in bed but earlier today, was able to walk around. The patient tells me on a scale of 0 to 10, pain was up to 8 or 9 earlier this morning, but decreasing the frequency of the pain medication to 3 hours seems to be helping her. No nausea. No vomiting. Strength of the legs have improved which was not the case when she was admitted. The patient otherwise feels she is better. Appetite is holding. The patient still feels constipated. PHYSICAL EXAMINATION: GENERAL: The patient is in no acute distress. VITAL SIGNS: Stable, as stated in the chart, T-max is 98.4, heart rate is 82, respirations 18, blood pressure is 180/80, pulse oximetry is 96% on 3 L of nasal cannula. HEENT: Head is normocephalic, atraumatic. Crowded airway is noted. Mallampati score is 4. NECK: Supple. There is no adenopathy, no jugular venous distention noted. LUNGS: Good airflow with bilateral rhonchi. HEART: Examination of the heart reveals PMI to be in the fifth intercostal space, inside the midclavicular line. S1 and S2 are normal. No gallop or murmur heard. SPINE: Reveals tenderness over the mid thoracic spine extending downwards. Pain is radiating anteriorly across the border towards the right side. Definitely, there is tenderness over the spine. ABDOMEN: Soft and nontender. Liver and spleen are not palpable. No rebound, rigidity, or guarding is noted. HEART: Examination of the heart reveals S1 and S2 to be normal. No gallops or murmurs are heard. EXTREMITIES: Reveal no cyanosis, clubbing, or edema. NEUROLOGIC: Reveals higher functions to be normal. No focal deficits are noted. MEDICATIONS: The patient's medications are reviewed. She is on Ambien 5 mg to take p.r.n., she is on Colace 100 mg daily, WelChol 625 mg four times daily, Decadron 4 mg IV q. 6 hours, DuoNeb q. 6 hours, Effexor 75 mg daily, Glucophage XR 500 mg twice daily, heparin 5000 units subcu q. 12 hours, MiraLax 17 gm daily, morphine 4 mg IV q. 4 hours p.r.n., Nicoderm patch mg daily, Pepcid 40 mg daily, Pristiq 50 mg daily, Protonix 40 mg daily, cholestyramine 4 gm daily, Singulair 10 mg daily, Tylenol p.r.n., Xanax 0.5 mg t.i.d. p.r.n., Zofran p.r.n. LAB DATA: Shows hemoglobin of 12, hematocrit of 36.4, white count is 7.3, platelet count is 190,000. Sodium is 129, K is 4.1, chloride is 93, bicarbonate is 26, BUN is 17, creatinine is 0.5, glucose is 160, calcium is 10, AST is 80, ALT is 66, alkaline phosphatase is 143, albumin is 4.3. Urine culture has gram-positive cocci. ASSESSMENT, NOTES, AND PLAN: The patient has metastatic carcinoma with extensive metastasis in the liver and spine. MRA of the brain test shows any specific areas that has been convincing for metastasis, a small lesion in the right frontal lobe which does not light up on the MRI, unclear at this point what it could be. The changes in the choroid plexus which are calcific could be old malformation without any relevance to the current condition the patient has. The patient has significant chronic obstructive pulmonary disease from heavy smoking in addition to the metastatic disease. The patient had liver biopsy done on Tuesday, results of which are still pending at this time. The patient has diabetes, which is being aggravated by the steroids, sleep apnea syndrome. Continue bronchodilators, physical therapy, radiation therapy. I talked to the patient in great length today, tried to be reassuring to her including being positive about her treatment plan and approach depending on the histologic nature of the diagnosis. Liver biopsy will be available for us for reading sometime tomorrow afternoon. Routine post-exam instructions have been given to the patient. Time spent with the patient in reviewing all the meds and x-rays more than 80 minutes, out of which more than 50% of the time was spent in [id number] contact with the patient. I have told the patient's daughter as well that as soon as we have the results, I will be talking to her and communicating with her as to what needs to be done. Please make a note that this is a complex patient with multiple comorbid issues for which significant amount of time has gone in for collating all the facts and then trying to come up with a treatment plan. We will speak to Dr. Eastman as well before initiating any therapy. Rudy Puente MD
[2017-05-24] MEDS: Dexamethasone 4 mg/1 ml IVP SCH ×3 (05:13→18:01)
[2017-05-24] MEDS: Pantoprazole 40 mg EC Tab PO SCH (05:14)
[2017-05-24 07:06] LABS: BLOOD UREA NITROGEN 20 mg/dL (7-21); GFR AFRICAN-AMERICAN > 60; GFR NON-AFRICAN AMERICAN > 60
[2017-05-24 07:46] LABS: HEMOGLOBIN 12.6 g/dL (12.0-16.0); MEAN CELL VOLUME 88.3 fl (80.0-105.0); MEAN CORPUSCULAR HEMOGLOBIN 29.4 pg (25.0-35.0); MEAN CORPUSCULAR HGB CONC 33.3 g/dl (31.0-37.0); MEAN PLATELET VOLUME 9.5 fl (7.0-11.0); RBC 4.28 10^6/uL (3.5-6.1); RED CELL DISTRIBUTION WIDTH 13.8 % (11.5-14.5); WHITE BLOOD COUNT 5.9 10^3/ul (4.5-11.0)
[2017-05-24] MEDS: Morphine 5 MG/ML SYRINGE IVP PRN ×3 (08:34→21:47)
[2017-05-24] MEDS: Insulin Reg-HIGH-Coverage SC SCH ×4 (08:35→21:50)
[2017-05-24] MEDS: Venlafaxine 75 mg ER Cap PO SCH (10:34)
[2017-05-24] MEDS: Lidocaine 5% Patch TD SCH (10:35)
[2017-05-24] MEDS: POLYETHYLENE GLYCOL 3350 17 GM/Dose PACKET PO SCH (10:35)
[2017-05-24] MEDS: Cholestyramine 4 gm/Pkt UD PO SCH (10:36)
[2017-05-24] MEDS: PRISTIQUE PO SCH (10:36)
--- NOTE | 2017-05-24 14:15 | CP.PCM.PN ---
Subjective - Date & Time of Evaluation Date of Evaluation: 05/24/17 Time of Evaluation: 14:11 - Subjective Subjective: Patient seen examined at bedside. Patient underwent radiation therapy earlier today. Patient states she is very fatigued and tired, falling asleep during the interview. Pain is well controlled with medication. Denies chest pain, shortness of breath, nausea, vomiting, diarrhea, fever, chills. Objective - Vital Signs/Intake and Output Vital Signs (last 24 hours): Temp Pulse Resp BP Pulse Ox 97.4 F L 88 22 130/70 95 05/24/17 08:51 05/24/17 08:51 05/24/17 08:51 05/24/17 10:35 05/24/17 08:51 Intake and Output: 05/24/17 05/24/17 06:59 18:59 Intake Total 880 120 Balance 880 120 - Medications Medications: Current Medications Acetaminophen (Tylenol 325mg Tab) 650 mg PO Q4H PRN PRN Reason: Fever >100.4 F Last Admin: 05/19/17 12:21 Dose: 650 mg Albuterol/Ipratropium (Duoneb 3 Mg/0.5 Mg (3 Ml) Ud) 3 ml IH [id number] [facility] Last Admin: 05/24/17 14:09 Dose: 3 ml Alprazolam (Xanax) 0.5 mg PO BID KIMMY PRN Reason: Protocol Last Admin: 05/24/17 10:36 Dose: 0.5 mg Alprazolam (Xanax) 1 mg PO HS KIMMY PRN Reason: Protocol Last Admin: 05/23/17 22:03 Dose: 1 mg Amlodipine Besylate (Norvasc) 10 mg PO DAILY [facility] Last Admin: 05/24/17 10:35 Dose: 10 mg Cholestyramine Resin (Questran) 4 gm PO DAILY [facility]IMMY Last Admin: 05/24/17 10:36 Dose: 4 gm Dexamethasone (Decadron Inj) 4 mg IVP Q6H [facility] Last Admin: 05/24/17 12:33 Dose: 4 mg Docusate Sodium (Colace) 100 mg PO DAILY [facility] Last Admin: 05/24/17 10:34 Dose: 100 mg Famotidine (Pepcid) 40 mg PO HS [facility] Last Admin: 05/23/17 21:51 Dose: 40 mg Heparin Sodium (Porcine) (Heparin) 5,000 units SC Q12 KIMMY PRN Reason: Protocol Last Admin: 05/24/17 10:34 Dose: 5,000 units Insulin Human Regular (Humulin R High) 0 units SC ACHS KIMMY PRN Reason: Protocol Last Admin: 05/24/17 12:34 Dose: 4 units Lidocaine (Lidoderm) 2 ea TD DAILY [facility] Last Admin: 05/24/17 10:35 Dose: 2 ea Metformin HCl (Glucophage Xr) 500 mg PO BID [facility] Last Admin: 05/24/17 10:34 Dose: 500 mg Montelukast Sodium (Singulair) 10 mg PO DAILY [facility] Last Admin: 05/24/17 10:36 Dose: 10 mg Morphine Sulfate (Morphine) 4 mg IVP Q3H PRN PRN Reason: Pain, severe (8-10) Last Admin: 05/24/17 08:34 Dose: 4 mg Nicotine (Nicoderm Cq) 1 patch TD DAILY [facility] Last Admin: 05/24/17 10:35 Dose: 1 patch Nicotine (Nicoderm Cq) 1 patch TD DAILY [facility] Last Admin: 05/24/17 10:35 Dose: 1 patch Non-Formulary Medication (Colesevelam Hcl [Welchol]) 625 mg PO QID [facility] Last Admin: 05/24/17 10:34 Dose: Not Given Non-Formulary Medication (Pristique) 50 mg PO DAILY [facility] Last Admin: 05/24/17 10:36 Dose: Not Given Ondansetron HCl (Zofran Inj) 4 mg IVP Q4H PRN PRN Reason: Nausea/Vomiting Last Admin: 05/19/17 12:21 Dose: 4 mg Pantoprazole Sodium (Protonix Ec Tab) 40 mg PO 0600 [facility] Last Admin: 05/24/17 05:14 Dose: 40 mg Polyethylene Glycol (Miralax) 17 gm PO DAILY [facility] Last Admin: 05/24/17 10:35 Dose: 17 gm Venlafaxine HCl (Effexor Xr) 75 mg PO DAILY [facility] Last Admin: 05/24/17 10:34 Dose: 75 mg Zolpidem Tartrate (Ambien) 5 mg PO HS PRN; Protocol PRN Reason: Insomnia Last Admin: 05/23/17 00:16 Dose: 5 mg - Labs Labs: 05/24/17 07:00 05/24/17 05:45 PT 12.8 SECONDS (9.4-12.5) H 05/19/17 12:10 INR 1.11 (0.93-1.08) H 05/19/17 12:10 APTT 23.1 Seconds (25.1-36.5) L 05/19/17 12:10 - Constitutional Appears: Non-toxic, No Acute Distress - Head Exam Head Exam: ATRAUMATIC, NORMAL INSPECTION, NORMOCEPHALIC - ENT Exam ENT Exam: Mucous Membranes Moist, Normal Exam - Neck Exam Neck Exam: Normal Inspection. absent: Lymphadenopathy - Respiratory Exam Respiratory Exam: Clear to Ausculation Bilateral, NORMAL BREATHING PATTERN. absent: Decreased Breath Sounds, Rhonchi, Wheezes - Cardiovascular Exam Cardiovascular Exam: RRR, +S1, +S2 - GI/Abdominal Exam GI & Abdominal Exam: Soft, Normal Bowel Sounds. absent: Tenderness - Extremities Exam Extremities Exam: Normal Inspection. absent: Calf Tenderness, Pedal Edema - Back Exam Back Exam: absent: paraspinal tenderness, vertebral tenderness - Neurological Exam Neurological Exam: Alert, Awake, Oriented x3 - Psychiatric Exam Psychiatric exam: Normal Affect, Normal Mood - Skin Skin Exam: Intact, Normal Color, Warm Assessment and Plan - Assessment and Plan (Free Text) Plan: 72 year old female with PMH of DM, HTN, and MDD presents for evaluation 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 Patient received head, chest, abdomen , pelvis CT yesterday which showed calcified lesions in the 4th ventricle of the brain, multiple metastases to the liver, soft tissue mass near the right pulmonary artery, and mediastinal lymphadenopathy. Patient evaluated by neurosurgery who state she is not a surgical candidate. Patient will continue radiation therapy by Dr. Goyal. We are also awaiting official patholgy reports from liver biopsy at this time. Will continue current pain medication regimen as it is appropriate. Will give one dose of Relistor for opioid induced constipation. Neurology recommending blood pressure control at this time. Once office pathology results are in, will consider TCU for further management and treatment of patient. Plan discussed with Dr. Puente. Linda, PGY-2
[2017-05-25] MEDS: Dexamethasone 4 mg/1 ml IVP SCH ×4 (01:09→18:03)
--- NOTE | 2017-05-25 01:10 | PN ---
PULMONARY PROGRESS NOTE DATE: 05/24/2017 REFERRING PHYSICIAN: Yosef Reis MD SUBJECTIVE: She is lying in the bed and head at 45 degrees. Night was unremarkable. No headache. No rhinitis. Mild cough. No nausea. No vomiting. No abdominal pain. No leg swelling. OBJECTIVE: GENERAL: In no acute distress. VITAL SIGNS: Temperature is 98, heart rate is 93, respiratory rate is 20, blood pressure is 130/69, and pulse ox is 96% on room air. HEENT: Moist mucous membranes. Crowded airway. NECK: Supple. No JVD. LUNGS: Has a fair airflow with rhonchi. HEART: S1 and S2. ABDOMEN: Soft and nontender. No organomegaly. EXTREMITIES: There is no edema. NEUROLOGICAL: Awake, alert, and follows simple commands. MEDICATIONS: She is on Ambien 5 mg at bedtime p.r.n., Colace 100 mg daily, Welchol 325 mg four times daily, Decadron 4 mg q.6 hours, DuoNeb q.6 hours, Effexor 75 mg daily, Glucophage 500 mg twice a day, heparin 5000 units subcutaneously q.12 hours, insulin coverage, lidocaine patch to affected area daily, MiraLax 17 g daily, morphine 4 mg q.3 hours p.r.n., Nicoderm patch daily, Norvasc 10 mg daily, Pepcid 40 mg at bedtime, Pristiq 50 mg daily, Protonix 40 mg daily, cholestyramine 4 g daily, Singulair 10 mg daily, Tylenol p.r.n., Xanax 0.5 mg b.i.d., and Zofran p.r.n. basis. LABORATORY DATA: Shows hemoglobin 12.6, hematocrit 37.8, WBC 5.9, and platelet is 195. Sodium 130, potassium 3.9, chloride 95, bicarbonate 24, BUN 20, creatinine 0.6, glucose 196, and calcium is 10.0. Urine culture has a Gram-positive coccyx, which is less than 10,000 colonies. IMPRESSION AND PLAN: Metastatic disease, just spoke to Dr. Puente, he told me that cell type is small cell cancer. If multiple organ is involved including lung mediastinum, liver lesions, spine involving, also has a chronic lung disease, diabetes, hypertension, sleep apnea syndrome, and hyponatremia. Pulmonary point of view, she is doing okay. Continue bronchodilator. Restrict free water, gastric prophylaxis, pain management, fall precaution, and sequential compression device to lower extremity. Thank you and we will follow with you. Robert Eastman MD
[2017-05-25] MEDS: Albuterol-Ipratrop 3 mg / 0.5 (3 ml) UD IH SCH ×4 (01:20→20:02)
[2017-05-25] MEDS: Pantoprazole 40 mg EC Tab PO SCH (05:17)
[2017-05-25 06:45] LABS: HEMOGLOBIN 12.9 g/dL (12.0-16.0); MEAN CELL VOLUME 89.1 fl (80.0-105.0); MEAN CORPUSCULAR HEMOGLOBIN 29.2 pg (25.0-35.0); MEAN CORPUSCULAR HGB CONC 32.7 g/dl (31.0-37.0); MEAN PLATELET VOLUME 9.5 fl (7.0-11.0); RBC 4.42 10^6/uL (3.5-6.1); RED CELL DISTRIBUTION WIDTH 13.8 % (11.5-14.5); WHITE BLOOD COUNT 6.7 10^3/ul (4.5-11.0)
--- NOTE | 2017-05-25 06:57 | CP.PCM.PN ---
Subjective - Date & Time of Evaluation Date of Evaluation: 05/25/17 Time of Evaluation: 06:54 - Subjective Subjective: Ms. Ye was seen and examined at the bedside. She is alert, oriented. She denies any dizziness, blurred vision, but states of dull back pain which is tolerable. She is able to ambulate from her bed to the [facility] outside her room in steady gait. She further states of being evaluated by physical therapy and still going with her radiation therapy. There was no untoward events overnight. Objective - Vital Signs/Intake and Output Vital Signs (last 24 hours): Temp Pulse Resp BP Pulse Ox 97.3 F L 93 H 21 130/69 96 05/24/17 16:00 05/24/17 16:00 05/24/17 16:00 05/24/17 16:00 05/24/17 16:00 Intake and Output: 05/24/17 05/25/17 18:59 06:59 Intake Total 120 200 Balance 120 200 - Medications Medications: Current Medications Acetaminophen (Tylenol 325mg Tab) 650 mg PO Q4H PRN PRN Reason: Fever >100.4 F Last Admin: 05/19/17 12:21 Dose: 650 mg Albuterol/Ipratropium (Duoneb 3 Mg/0.5 Mg (3 Ml) Ud) 3 ml IH [id number] [facility] Last Admin: 05/25/17 01:20 Dose: Not Given Alprazolam (Xanax) 0.5 mg PO BID KIMMY PRN Reason: Protocol Last Admin: 05/24/17 18:01 Dose: 0.5 mg Alprazolam (Xanax) 1 mg PO HS KIMMY PRN Reason: Protocol Last Admin: 05/24/17 21:47 Dose: 1 mg Amlodipine Besylate (Norvasc) 10 mg PO DAILY [facility] Last Admin: 05/24/17 10:35 Dose: 10 mg Cholestyramine Resin (Questran) 4 gm PO DAILY [facility] Last Admin: 05/24/17 10:36 Dose: 4 gm Dexamethasone (Decadron Inj) 4 mg IVP Q6H [facility] Last Admin: 05/25/17 05:17 Dose: 4 mg Docusate Sodium (Colace) 100 mg PO DAILY [facility] Last Admin: 05/24/17 10:34 Dose: 100 mg Famotidine (Pepcid) 40 mg PO HS [facility] Last Admin: 05/24/17 21:47 Dose: 40 mg Heparin Sodium (Porcine) (Heparin) 5,000 units SC Q12 KIMMY PRN Reason: Protocol Last Admin: 05/24/17 21:47 Dose: 5,000 units Insulin Human Regular (Humulin R High) 0 units SC ACHS KIMMY PRN Reason: Protocol Last Admin: 05/24/17 21:50 Dose: Not Given Lidocaine (Lidoderm) 2 ea TD DAILY [facility] Last Admin: 05/24/17 10:35 Dose: 2 ea Metformin HCl (Glucophage Xr) 500 mg PO BID [facility] Last Admin: 05/24/17 18:01 Dose: 500 mg Montelukast Sodium (Singulair) 10 mg PO DAILY [facility] Last Admin: 05/24/17 10:36 Dose: 10 mg Morphine Sulfate (Morphine) 4 mg IVP Q3H PRN PRN Reason: Pain, severe (8-10) Last Admin: 05/24/17 21:47 Dose: 4 mg Nicotine (Nicoderm Cq) 1 patch TD DAILY [facility] Last Admin: 05/24/17 10:35 Dose: 1 patch Nicotine (Nicoderm Cq) 1 patch TD DAILY [facility] Last Admin: 05/24/17 10:35 Dose: 1 patch Non-Formulary Medication (Colesevelam Hcl [Welchol]) 625 mg PO QID [facility] Last Admin: 05/24/17 23:58 Dose: Not Given Non-Formulary Medication (Pristique) 50 mg PO DAILY [facility] Last Admin: 05/24/17 10:36 Dose: Not Given Ondansetron HCl (Zofran Inj) 4 mg IVP Q4H PRN PRN Reason: Nausea/Vomiting Last Admin: 05/19/17 12:21 Dose: 4 mg Pantoprazole Sodium (Protonix Ec Tab) 40 mg PO 0600 [facility] Last Admin: 05/25/17 05:17 Dose: 40 mg Polyethylene Glycol (Miralax) 17 gm PO DAILY [facility] Last Admin: 05/24/17 10:35 Dose: 17 gm Venlafaxine HCl (Effexor Xr) 75 mg PO DAILY [facility] Last Admin: 05/24/17 10:34 Dose: 75 mg Zolpidem Tartrate (Ambien) 5 mg PO HS PRN; Protocol PRN Reason: Insomnia Last Admin: 05/23/17 00:16 Dose: 5 mg - Labs Labs: 05/24/17 07:00 05/24/17 05:45 PT 12.8 SECONDS (9.4-12.5) H 05/19/17 12:10 INR 1.11 (0.93-1.08) H 05/19/17 12:10 APTT 23.1 Seconds (25.1-36.5) L 05/19/17 12:10 - Constitutional Appears: No Acute Distress - Head Exam Head Exam: NORMAL INSPECTION - Neurological Exam Neurological Exam: Alert, Awake, CN II-XII Intact, Oriented x3 Neuro motor strength exam: Left Upper Extremity: 5, Right Upper Extremity: 5, Left Lower Extremity: 5, Right Lower Extremity: 5 Additional comments: Neurological unchanged from previous examination. Assessment and Plan (1) Epidural mass Assessment & Plan: Case discussed with Dr. Mitchell, continue all current medical, physical therapies including pain management. There is no new recommendations from neurology. Status: Acute
[2017-05-25 07:18] LABS: ALB/GLOB RATIO 1.5 (1.1-1.8); ALBUMIN 4.4 g/dL (3.0-4.8); ALT/SGPT 90 U/L (7-56); AST/SGOT 81 U/L (14-36); BLOOD UREA NITROGEN 23 mg/dL (7-21); CALCIUM 10.3 mg/dL (8.4-10.5); GFR AFRICAN-AMERICAN > 60; GFR NON-AFRICAN AMERICAN > 60
[2017-05-25] MEDS: Insulin Reg-HIGH-Coverage SC SCH ×4 (08:31→21:51)
[2017-05-25] MEDS: Morphine 5 MG/ML SYRINGE IVP PRN ×4 (08:32→22:54)
[2017-05-25] MEDS: Venlafaxine 75 mg ER Cap PO SCH (10:53)
[2017-05-25] MEDS: POLYETHYLENE GLYCOL 3350 17 GM/Dose PACKET PO SCH (10:54)
[2017-05-25] MEDS: Cholestyramine 4 gm/Pkt UD PO SCH (10:54)
[2017-05-25] MEDS: Lidocaine 5% Patch TD SCH (10:55)
[2017-05-25] MEDS: PRISTIQUE PO SCH (10:55)
--- NOTE | 2017-05-25 12:12 | CP.PCM.PN ---
Subjective - Date & Time of Evaluation Date of Evaluation: 05/25/17 Time of Evaluation: 12:06 - Subjective Subjective: Patient seen and examined at bedside. Patient states she is still in pain, but it is controlled with pain medications. She has yet to have a bowel movement after receiving Relistor yesterday, but states she now has the urge to. Denies chest pain, shortness of breath, nausea, vomiting, fever, chills. Objective - Vital Signs/Intake and Output Vital Signs (last 24 hours): Temp Pulse Resp BP Pulse Ox 97.3 F L 93 H 21 120/72 96 05/24/17 16:00 05/24/17 16:00 05/24/17 16:00 05/25/17 10:54 05/24/17 16:00 Intake and Output: 05/25/17 05/25/17 06:59 18:59 Intake Total 200 120 Balance 200 120 - Medications Medications: Current Medications Acetaminophen (Tylenol 325mg Tab) 650 mg PO Q4H PRN PRN Reason: Fever >100.4 F Last Admin: 05/19/17 12:21 Dose: 650 mg Albuterol/Ipratropium (Duoneb 3 Mg/0.5 Mg (3 Ml) Ud) 3 ml IH [id number] [facility] Last Admin: 05/25/17 08:00 Dose: 3 ml Alprazolam (Xanax) 0.5 mg PO BID KIMMY PRN Reason: Protocol Last Admin: 05/25/17 10:55 Dose: 0.5 mg Alprazolam (Xanax) 1 mg PO HS KIMMY PRN Reason: Protocol Last Admin: 05/24/17 21:47 Dose: 1 mg Amlodipine Besylate (Norvasc) 10 mg PO DAILY [facility] Last Admin: 05/25/17 10:54 Dose: 10 mg Cholestyramine Resin (Questran) 4 gm PO DAILY [facility] Last Admin: 05/25/17 10:54 Dose: 4 gm Dexamethasone (Decadron Inj) 4 mg IVP Q6H [facility] Last Admin: 05/25/17 05:17 Dose: 4 mg Docusate Sodium (Colace) 100 mg PO DAILY [facility] Last Admin: 05/25/17 10:53 Dose: 100 mg Famotidine (Pepcid) 40 mg PO HS [facility] Last Admin: 05/24/17 21:47 Dose: 40 mg Heparin Sodium (Porcine) (Heparin) 5,000 units SC Q12 KIMMY PRN Reason: Protocol Last Admin: 05/25/17 10:54 Dose: 5,000 units Insulin Human Regular (Humulin R High) 0 units SC ACHS KIMMY PRN Reason: Protocol Last Admin: 05/25/17 08:31 Dose: 2 units Lidocaine (Lidoderm) 2 ea TD DAILY [facility] Last Admin: 05/25/17 10:55 Dose: 2 ea Metformin HCl (Glucophage Xr) 500 mg PO BID [facility] Last Admin: 05/25/17 10:53 Dose: 500 mg Montelukast Sodium (Singulair) 10 mg PO DAILY [facility] Last Admin: 05/25/17 10:54 Dose: 10 mg Morphine Sulfate (Morphine) 4 mg IVP Q3H PRN PRN Reason: Pain, severe (8-10) Last Admin: 05/25/17 08:32 Dose: 4 mg Nicotine (Nicoderm Cq) 1 patch TD DAILY [facility] Last Admin: 05/25/17 10:54 Dose: 1 patch Nicotine (Nicoderm Cq) 1 patch TD DAILY [facility] Last Admin: 05/25/17 10:54 Dose: 1 patch Non-Formulary Medication (Colesevelam Hcl [Welchol]) 625 mg PO QID [facility] Last Admin: 05/25/17 10:56 Dose: Not Given Non-Formulary Medication (Pristique) 50 mg PO DAILY [facility] Last Admin: 05/25/17 10:55 Dose: Not Given Ondansetron HCl (Zofran Inj) 4 mg IVP Q4H PRN PRN Reason: Nausea/Vomiting Last Admin: 05/19/17 12:21 Dose: 4 mg Pantoprazole Sodium (Protonix Ec Tab) 40 mg PO 0600 [facility] Last Admin: 05/25/17 05:17 Dose: 40 mg Polyethylene Glycol (Miralax) 17 gm PO DAILY [facility] Last Admin: 05/25/17 10:54 Dose: 17 gm Venlafaxine HCl (Effexor Xr) 75 mg PO DAILY [facility] Last Admin: 05/25/17 10:53 Dose: 75 mg Zolpidem Tartrate (Ambien) 5 mg PO HS PRN; Protocol PRN Reason: Insomnia Last Admin: 05/23/17 00:16 Dose: 5 mg - Labs Labs: 05/25/17 06:00 05/25/17 06:00 PT 12.8 SECONDS (9.4-12.5) H 05/19/17 12:10 INR 1.11 (0.93-1.08) H 05/19/17 12:10 APTT 23.1 Seconds (25.1-36.5) L 05/19/17 12:10 - Constitutional Appears: Non-toxic, No Acute Distress - Head Exam Head Exam: ATRAUMATIC, NORMAL INSPECTION, NORMOCEPHALIC - ENT Exam ENT Exam: Mucous Membranes Moist - Respiratory Exam Respiratory Exam: Clear to Ausculation Bilateral, NORMAL BREATHING PATTERN - Cardiovascular Exam Cardiovascular Exam: RRR, +S1, +S2 - GI/Abdominal Exam GI & Abdominal Exam: Soft, Normal Bowel Sounds. absent: Tenderness - Extremities Exam Extremities Exam: Normal Inspection, Pedal Edema (Trace b/l). absent: Calf Tenderness - Back Exam Back Exam: vertebral tenderness - Neurological Exam Neurological Exam: Alert, Awake, Oriented x3 - Psychiatric Exam Psychiatric exam: Normal Affect, Normal Mood - Skin Skin Exam: Intact, Normal Color, Warm Assessment and Plan - Assessment and Plan (Free Text) Plan: 72 year old female with PMH of DM, HTN, and MDD presents for evaluation 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 Patient received head, chest, abdomen , pelvis CT which showed calcified lesions in the 4th ventricle of the brain, multiple metastases to the liver, soft tissue mass near the right pulmonary artery, and mediastinal lymphadenopathy. Patient evaluated by neurosurgery who state she is not a surgical candidate. Patient will continue radiation therapy by Dr. Goyal, she has 5 more treatments left. We are also awaiting official patholgy reports from liver biopsy at this time. Preliminary reports are stating it is small cell lung cancer. Will continue current pain medication regimen, will consider transitioning patient to oral regimen. Once office pathology results are in, will consider TCU for further management and treatment of patient. Plan discussed with Dr. Iyengar. Mckeon, PGY-2
[2017-05-25 18:21] VITALS: RESP 20
--- NOTE | 2017-05-25 19:56 | PN ---
DATE: 05/25/2017 REFERRING PHYSICIAN: Yosef Reis MD SUBJECTIVE: She is sitting up in bed, having lunch. Night was unremarkable, feels okay. Gets short of breath with exertion, but no chest pain. No nausea. Improved leg strength. OBJECTIVE: GENERAL: In no acute distress. VITAL SIGNS: Temperature is 98, heart rate is 93, respiratory rate is 20, blood pressure 120/72, pulse oximetry is 96% on room air. HEENT: Moist mucous membranes. Crowded airway. NECK: Supple. No JVD. LUNGS: Have a fair airflow with rhonchi. HEART: S1 and S2. ABDOMEN: Soft, nontender. No organomegaly. EXTREMITIES: No edema. NEUROLOGIC: Awake, alert, and follows simple commands. MEDICATIONS: She is on Ambien 5 mg at bedtime p.r.n., Colace 100 mg daily, also getting Welchol 625 mg q.i.d., Decadron 4 mg q.6 hours, DuoNeb q.6 hours, Effexor XR 75 mg daily, Glucophage XR 500 mg twice a day, heparin 5000 units subcu q.12 hours, insulin coverage, lidocaine patch to affected area, MiraLax 17 gm daily, morphine is 4 mg q.3 hours p.r.n., Nicoderm patch daily, also on Norvasc 10 mg daily, Pepcid 40 mg at bedtime, Pristiq 50 mg daily, Protonix 40 mg daily, cholestyramine 4 gm p.o. daily, Singulair 10 mg daily, Tylenol p.r.n. basis, Xanax 5 mg twice daily, 1 mg at bedtime, Zofran p.r.n. basis. LABORATORY DATA: Shows hemoglobin 12.9, hematocrit 39.4, WBC is 6.7, platelet is 206. Sodium 131, potassium 4.5, chloride 97, bicarbonate 24, BUN 23, creatinine 0.6, glucose 192, calcium 10.3, AST 81, ALT 90, alk phos is 204, albumin is 4.4. Microbiology: Urine has gram- positive cocci. 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 Other issues: Diabetes, chronic lung disease, hypertension, may have sleep apnea syndrome. Continue bronchodilator. Keep head at 45 degrees. Blood sugar followup. Gastric prophylaxis. Systemic compression device to lower extremity. The [facility] to [facility] chemotherapy. Get Physical Therapy to start ambulating patient. Thank you and we will follow with you. Robert Eastman MD
[2017-05-26] MEDS: Dexamethasone 4 mg/1 ml IVP SCH ×4 (00:48→17:07)
[2017-05-26] MEDS: Morphine 5 MG/ML SYRINGE IVP PRN ×2 (02:09→08:07)
[2017-05-26] MEDS: Pantoprazole 40 mg EC Tab PO SCH (05:35)
[2017-05-26 06:30] LABS: HEMOGLOBIN 12.3 g/dL (12.0-16.0); MEAN CELL VOLUME 89.6 fl (80.0-105.0); MEAN CORPUSCULAR HEMOGLOBIN 29.1 pg (25.0-35.0); MEAN CORPUSCULAR HGB CONC 32.5 g/dl (31.0-37.0); MEAN PLATELET VOLUME 9.5 fl (7.0-11.0); RBC 4.23 10^6/uL (3.5-6.1); WHITE BLOOD COUNT 6.7 10^3/ul (4.5-11.0)
[2017-05-26] MEDS: Albuterol-Ipratrop 3 mg / 0.5 (3 ml) UD IH SCH ×2 (07:14→13:40)
[2017-05-26 08:15] LABS: ALB/GLOB RATIO 1.5 (1.1-1.8); ALBUMIN 4.1 g/dL (3.0-4.8); ALT/SGPT 83 U/L (7-56); AST/SGOT 87 U/L (14-36); BLOOD UREA NITROGEN 21 mg/dL (7-21); GFR AFRICAN-AMERICAN > 60; GFR NON-AFRICAN AMERICAN > 60
[2017-05-26] MEDS: Cholestyramine 4 gm/Pkt UD PO SCH (09:02)
[2017-05-26] MEDS: Venlafaxine 75 mg ER Cap PO SCH (09:04)
[2017-05-26] MEDS: Lidocaine 5% Patch TD SCH (09:07)
[2017-05-26] MEDS: Insulin Reg-HIGH-Coverage SC SCH ×3 (09:07→17:10)
[2017-05-26] MEDS: POLYETHYLENE GLYCOL 3350 17 GM/Dose PACKET PO SCH (09:07)
[2017-05-26] MEDS: PRISTIQUE PO SCH (09:08)
--- NOTE | 2017-05-26 11:22 | CP.PCM.PN ---
Subjective - Date & Time of Evaluation Date of Evaluation: 05/26/17 Time of Evaluation: 11:18 - Subjective Subjective: Ms. Ye was seen and examined at the bedside. She is alert, but very sleepy. She claims of feeling tired after each episode of radiation therapy, but gains her strength after couple hours. She denies any headache, nausea, vomiting, numbness, but states of the back pain is controlled at this moment. She is able t follow simple commands. She uses a cane for ambulation.There was no untoward events overnight. Objective - Vital Signs/Intake and Output Vital Signs (last 24 hours): Temp Pulse Resp BP Pulse Ox 97.5 F L 82 20 156/87 H 92 L 05/26/17 09:25 05/26/17 09:25 05/26/17 09:25 05/26/17 09:25 05/26/17 09:25 Intake and Output: 05/26/17 05/26/17 06:59 18:59 Intake Total 880 120 Balance 880 120 - Medications Medications: Current Medications Acetaminophen (Tylenol 325mg Tab) 650 mg PO Q4H PRN PRN Reason: Fever >100.4 F Last Admin: 05/19/17 12:21 Dose: 650 mg Albuterol/Ipratropium (Duoneb 3 Mg/0.5 Mg (3 Ml) Ud) 3 ml IH [id number] [facility] Last Admin: 05/26/17 07:14 Dose: 3 ml Alprazolam (Xanax) 0.5 mg PO BID KIMMY PRN Reason: Protocol Last Admin: 05/26/17 09:03 Dose: 0.5 mg Alprazolam (Xanax) 1 mg PO HS [facility] PRN Reason: Protocol Last Admin: 05/25/17 21:55 Dose: 1 mg Amlodipine Besylate (Norvasc) 10 mg PO DAILY [facility] Last Admin: 05/26/17 09:08 Dose: 10 mg Cholestyramine Resin (Questran) 4 gm PO DAILY [facility] Last Admin: 05/26/17 09:02 Dose: 4 gm Dexamethasone (Decadron Inj) 4 mg IVP Q6H KIMMY Last Admin: 05/26/17 05:35 Dose: 4 mg Docusate Sodium (Colace) 100 mg PO DAILY [facility] Last Admin: 05/26/17 09:02 Dose: 100 mg Famotidine (Pepcid) 40 mg PO HS [facility] Last Admin: 05/25/17 21:55 Dose: 40 mg Heparin Sodium (Porcine) (Heparin) 5,000 units SC Q12 KIMMY PRN Reason: Protocol Last Admin: 05/25/17 22:55 Dose: Not Given Insulin Human Regular (Humulin R High) 0 units SC ACHS KIMMY PRN Reason: Protocol Last Admin: 05/26/17 09:07 Dose: 2 units Lidocaine (Lidoderm) 2 ea TD DAILY [facility] Last Admin: 05/26/17 09:07 Dose: 2 ea Metformin HCl (Glucophage Xr) 500 mg PO BID [facility] Last Admin: 05/26/17 09:06 Dose: 500 mg Montelukast Sodium (Singulair) 10 mg PO DAILY [facility] Last Admin: 05/26/17 09:02 Dose: 10 mg Morphine Sulfate (Morphine) 4 mg IVP Q3H PRN PRN Reason: Pain, severe (8-10) Nicotine (Nicoderm Cq) 1 patch TD DAILY [facility] Last Admin: 05/26/17 09:08 Dose: 1 patch Nicotine (Nicoderm Cq) 1 patch TD DAILY [facility] Last Admin: 05/26/17 09:08 Dose: 1 patch Non-Formulary Medication (Colesevelam Hcl [Welchol]) 625 mg PO QID [facility] Last Admin: 05/25/17 21:48 Dose: Not Given Non-Formulary Medication (Pristique) 50 mg PO DAILY [facility] Last Admin: 05/26/17 09:08 Dose: Not Given Ondansetron HCl (Zofran Inj) 4 mg IVP Q4H PRN PRN Reason: Nausea/Vomiting Last Admin: 05/19/17 12:21 Dose: 4 mg Pantoprazole Sodium (Protonix Ec Tab) 40 mg PO 0600 [facility] Last Admin: 05/26/17 05:35 Dose: 40 mg Polyethylene Glycol (Miralax) 17 gm PO DAILY [facility] Last Admin: 05/26/17 09:07 Dose: 17 gm Venlafaxine HCl (Effexor Xr) 75 mg PO DAILY [facility] Last Admin: 05/26/17 09:04 Dose: 75 mg Zolpidem Tartrate (Ambien) 5 mg PO HS PRN; Protocol PRN Reason: Insomnia Last Admin: 05/23/17 00:16 Dose: 5 mg - Labs Labs: 05/26/17 05:45 05/26/17 05:45 PT 12.8 SECONDS (9.4-12.5) H 05/19/17 12:10 INR 1.11 (0.93-1.08) H 05/19/17 12:10 APTT 23.1 Seconds (25.1-36.5) L 05/19/17 12:10 - Constitutional Appears: No Acute Distress - Head Exam Head Exam: NORMAL INSPECTION - Neurological Exam Neurological Exam: Alert, Awake, Oriented x3 Neuro motor strength exam: Left Upper Extremity: 5, Right Upper Extremity: 5, Left Lower Extremity: 5, Right Lower Extremity: 5 Additional comments: Neurological unchanged from previous examination. Assessment and Plan (1) Epidural mass Assessment & Plan: Case discussed with Dr. Mitchell, continue all current medical, physical therapies. There is no new recommendations from neurology. Status: Acute
[2017-05-26] MEDS ORDERED: Morphine 5 MG/ML SYRINGE IVP PRN (11:42)
[2017-05-26] MEDS ORDERED: oxyCODONE 5 mg Immediate Release Tab PO PRN (11:43)
[2017-05-26 17:45] VITALS: BP 156/75; PULSE 104; TEMP 98.2; O2SAT 93
--- NOTE | 2017-05-26 22:11 | PN ---
DATE: 05/26/2017 PULMONARY PROGRESS NOTE REFERRING PHYSICIAN: Yosef Reis MD. SUBJECTIVE: She is sitting up in a bed. Family is at bedside. Night was unremarkable. No cough. No sputum production. No nausea. No vomiting. No diarrhea. No leg pain or leg swelling. OBJECTIVE: GENERAL: In no acute distress. VITAL SIGNS: Temperature is 98, heart rate is 104, respiratory rate is 20, blood pressure 156/75, pulse ox 93% room air. HEENT: Moist mucous membrane. Crowded airway. NECK: Supple. No JVD. LUNGS: Have fair airflow with few rhonchi. HEART: S1 and S2. ABDOMEN: Soft, nontender, no organomegaly. EXTREMITIES: There is no edema. NEUROLOGIC: Awake and follows simple command. MEDICATIONS: Reviewed and noted. No new change in medications since yesterday. LABORATORY DATA: Reviewed, shows hemoglobin 12.3, hematocrit 37.9, WBC 6.7, platelet is 180. Sodium 135, potassium 4.7, chloride 97, bicarbonate 27, BUN 21, creatinine 0.5, glucose 201, calcium is 10.0. AST 87, AST 83, alk phos is 172. Albumin is 4.1. Microbiology: Urine has Gram-positive cocci. ASSESSMENT AND PLAN: Metastatic small cell lung cancer involving liver, bone, and spine, on radiation, steroids, and pain medications. Other issues are diabetes, chronic lung disease, hypertension, and sleep apnea syndrome. Keep head elevated at 45 degrees. Bronchodilator, gastric prophylaxis, DVT prophylaxis, SCD to lower extremities, fall precautions. Awaiting her transferred to TICU. Hopefully, we will be starting chemotherapy soon once final pathology report is available. Thank you and we will follow with you Robert Eastman MD
--- NOTE | 2017-05-27 15:18 | DS ---
She is being transferred to TCU. SUBJECTIVE: The patient is a 72-year-old female seen sitting up in bed, reporting that her pain is significantly improved. Her gait also improved after being admitted via the emergency room for metastatic changes noted on her scans. She is now status post treatment with radiation as per Dr. Helen Goyal with biopsy done by Dr. Lars Alvarado with the tissue pathology pending; however, suspicion is that of small cell CA of the lung with metastasis. She is now for transfer to TCU for reconditioning and for initiation of her chemotherapy as per Dr. Puente's protocol. She is, otherwise, in no acute distress, reporting that she is very thankful to have been convinced to come to the hospital for treatment. OBJECTIVE/PHYSICAL EXAMINATION VITAL SIGNS: Temperature is 98.2, pulse 104, respirations 20, blood pressure 156/75, pulse oximetry is 92%. HEENT: Unremarkable. NECK: Supple. HEART: Regular rate. LUNGS: Rare rhonchi. ABDOMEN: Obese, soft, nontender. EXTREMITIES: No edema. Toes wiggle freely. SKIN: Warm and dry. NEUROLOGIC: Awake, alert and oriented with her gait significantly improved. LABORATORY DATA: The patient's labs were done. White blood cell count of 6.7, hemoglobin 12.3, hematocrit 37.9, platelet count 180,000 with a Chem metabolic panel showing a creatinine of 0.5, BUN 21. Nonfasting glucose of 201 with an AST of 87, ALT of 83. ASSESSMENT: For this patient is that of metastatic carcinoma with extensive metastases to the liver and spine with MRI of the brain showing possible metastatic changes there, status post liver biopsy with pathology pending, suspicion for small cell carcinoma of the lung with metastasis; also diabetes mellitus, obesity, hypertension, depression, anxiety, chronic obstructive pulmonary disease, smoker, intractable pain of cancer. PLAN: For this patient after conversation with Dr. Puente is to transfer her to Transitional Care floor with continuation of present medical regimen, medicines to be listed with the patient to be monitored clinically and with labs along with analgesics control of her pain. Her medications for transfer to TCU include Ambien, Colace, Welchol, Decadron IV, DuoNeb, fentanyl patch as her morphine has been discontinued, Effexor, metformin, heparin subcu, insulin sliding scale, Lidoderm patch, MiraLax, Nicoderm patch, Norvasc, oxycodone, Pepcid, Pristiq, Protonix, Questran, Singulair, Tylenol, Xanax and Zofran p.r.n. Her diet is diabetic diet consistent with carbohydrate. The plan for this patient after conversation with Dr. Puente is to recondition the patient, to begin chemotherapy via the outpatient clinic with continuation of radiation as indicated with tissue diagnosis awaited. We will also continue her diabetic medications and as above. We will monitor clinically with labs. Prognosis for this patient is guarded. This is a discharge summary, in excess of 60 minutes time was needed with more than half [id number] time with the patient, answering her questions to her satisfaction along with her medications to be listed as above with followup as indicated as above. Yosef Reis MD
== END 2017-05-26 19:20 | DRG 181 ==
LOC: ED 09:17 → ERH 12:38 → 3RNO 19:49
PROVIDERS: ADMIT Family Medicine; ATTEND Family Medicine
PROC: 0FB23ZX Excision of Left Lobe Liver, Percutaneous Approach, Diagnostic (ICD-10-PCS; 2017-05-20)
PROC: 3E0F7GC Introduction of Other Therapeutic Substance into Respiratory Tract, Via Natural or Artificial Opening (ICD-10-PCS; 2017-05-21)
PROC: DP0C1ZZ Beam Radiation of Other Bone using Photons 1 - 10 MeV (ICD-10-PCS; principal; 2017-05-24)
DX: C7A.090 Malignant carcinoid tumor of the bronchus and lung (principal); C7B.02 Secondary carcinoid tumors of liver; C7B.03 Secondary carcinoid tumors of bone; M48.04 Spinal stenosis, thoracic region; E87.1 Hypo-osmolality and hyponatremia; E11.9 Type 2 diabetes mellitus without complications; I10 Essential (primary) hypertension; J44.9 Chronic obstructive pulmonary disease, unspecified; K59.00 Constipation, unspecified; R59.0 Localized enlarged lymph nodes; F41.9 Anxiety disorder, unspecified; G47.30 Sleep apnea, unspecified; F32.9 Major depressive disorder, single episode, unspecified; E66.9 Obesity, unspecified; Z68.30 Body mass index [BMI] 30.0-30.9, adult; F17.210 Nicotine dependence, cigarettes, uncomplicated

== ENCOUNTER 2017-05-26 19:20 | Inpatient (IN) | payer OTHER ==
[2017-05-26] MEDS ORDERED: Cholestyramine 4 gm/Pkt UD PO PRN (19:53)
[2017-05-26] MEDS ORDERED: POLYETHYLENE GLYCOL 3350 17 GM/Dose PACKET PO PRN (20:10)
[2017-05-26] MEDS ORDERED: oxyCODONE 5 mg Immediate Release Tab PO PRN (20:10)
[2017-05-26] MEDS: Albuterol-Ipratrop 3 mg / 0.5 (3 ml) UD IH SCH (21:10)
[2017-05-26] MEDS: Morphine 5 MG/ML SYRINGE IVP PRN (21:47)
[2017-05-27] MEDS: Dexamethasone 4 mg/1 ml IVP SCH ×4 (05:48→18:12)
[2017-05-27] MEDS: Pantoprazole 40 mg EC Tab PO SCH (05:49)
[2017-05-27] MEDS: Morphine 5 MG/ML SYRINGE IVP PRN ×2 (05:54→22:06)
[2017-05-27 07:17] LABS: BASO # 0.02 K/mm3 (0.0-2.0); BASO % 0.3 % (0.0-3.0); GRAN # 5.98 (1.4-6.5); GRAN % 89.9 % (50.0-68.0); LYMPH # 0.3 (1.2-3.4); LYMPH % 4.4 % (22.0-35.0); MEAN CELL VOLUME 88.4 fl (80.0-105.0); MEAN CORPUSCULAR HGB CONC 32.7 g/dl (31.0-37.0); MEAN PLATELET VOLUME 9.4 fl (7.0-11.0); MONO # 0.4 (0.1-0.6); MONO % 5.4 % (1.0-6.0); PLATELET COUNT 151 10^3/uL (120.0-450.0); RBC 4.49 10^6/uL (3.5-6.1); WHITE BLOOD COUNT 6.7 10^3/ul (4.5-11.0)
[2017-05-27] MEDS: Albuterol-Ipratrop 3 mg / 0.5 (3 ml) UD IH SCH ×3 (07:35→21:30)
--- NOTE | 2017-05-27 07:42 | CP.PCM.PN ---
Subjective - Date & Time of Evaluation Date of Evaluation: 05/27/17 Time of Evaluation: 07:40 - Subjective Subjective: Ms Ye is known to our department. She is currently on radiation therapy for back. We will continue her radiation while she is in TCU Objective - Vital Signs/Intake and Output Vital Signs (last 24 hours): Temp Pulse Resp BP Pulse Ox 97.9 F 101 H 18 165/88 H 90 L 05/27/17 05:27 05/27/17 05:27 05/27/17 05:27 05/27/17 05:27 05/27/17 05:27 - Medications Medications: Current Medications Acetaminophen (Tylenol 325mg Tab) 650 mg PO Q4H PRN PRN Reason: pain 4-10 Albuterol/Ipratropium (Duoneb 3 Mg/0.5 Mg (3 Ml) Ud) 3 ml IH [id number] [facility]S [facility] BEDS AT [facility] Last Admin: 05/27/17 07:35 Dose: 3 ml Alprazolam (Xanax) 0.5 mg PO BID [facility] B[facility]S AT [facility] PRN Reason: Protocol Alprazolam (Xanax) 1 mg PO HS [facility]S [facility]CLUDE 234 BEDS AT [facility] PRN Reason: Protocol Last Admin: 05/26/17 22:00 Dose: 1 mg Amlodipine Besylate (Norvasc) 10 mg PO DAILY [facility] 234 BEDS AT [facility] Cholestyramine Resin (Questran) 4 gm PO DAILY PRN PRN Reason: high cholesterol Dexamethasone (Decadron Inj) 4 mg IVP Q6 [facility] 234 BEDS AT [facility] Last Admin: 05/27/17 05:48 Dose: 4 mg Docusate Sodium (Colace) 100 mg PO DAILY [facility] 234 BEDS AT [facility] Famotidine (Pepcid) 40 mg PO HS [facility]S [facility]CLUDE 234 BEDS AT [facility] Last Admin: 05/26/17 21:51 Dose: 40 mg Fentanyl (Duragesic) 1 patch TD Q72H [facility]S [facility]CLUDE 234 BEDS AT [facility] Heparin Sodium (Porcine) (Heparin) 5,000 units SC Q12 KIMMY PRN Reason: Protocol Last Admin: 05/26/17 21:50 Dose: 5,000 units Home Med (Home Med) 50 unit PO DAILY [facility] 234 B[facility]S AT [facility] Insulin Human Regular (Humulin R High) 0 units SC BID [facility] 234 B[facility]S AT [facility] PRN Reason: Protocol Lidocaine (Lidoderm) 2 ea TD DAILY [facility] 234 BEDS AT [facility] Metformin HCl (Glucophage Xr) 500 mg PO BID [facility] 234 BEDS AT [facility] Montelukast Sodium (Singulair) 10 mg PO HS [facility]S [facility] 234 BEDS AT [facility] Last Admin: 05/26/17 22:00 Dose: Not Given Morphine Sulfate (Morphine) 3 mg IVP Q3H PRN PRN Reason: Pain, severe (8-10) Last Admin: 05/27/17 05:54 Dose: 3 mg Non-Formulary Medication (Colesevelam Hcl [Welchol]) 625 mg PO QID [facility]S [facility] 234 BEDS AT [facility] Last Admin: 05/26/17 21:50 Dose: Not Given Ondansetron HCl (Zofran Odt) 4 mg PO Q6 PRN PRN Reason: Nausea/Vomiting Oxycodone HCl (Oxycodone Immediate Release Tab) 5 mg PO Q6H PRN PRN Reason: break through pain Pantoprazole Sodium (Protonix Ec Tab) 40 mg PO 0600 [facility] 234 BEDS AT [facility] Last Admin: 05/27/17 05:49 Dose: 40 mg Polyethylene Glycol (Miralax) 17 gm PO DAILY PRN PRN Reason: Constipation Venlafaxine HCl (Effexor Xr) 75 mg PO DAILY [facility] 234 BEDS AT [facility] Zolpidem Tartrate (Ambien) 5 mg PO HS PRN; Protocol PRN Reason: insomnia - Labs Labs: 05/27/17 06:45
[2017-05-27 07:58] LABS: ALB/GLOB RATIO 1.4 (1.1-1.8); ALBUMIN 4.2 g/dL (3.0-4.8); ALT/SGPT 104 U/L (7-56); AST/SGOT 99 U/L (14-36); BLOOD UREA NITROGEN 17 mg/dL (7-21); CALCIUM 9.7 mg/dL (8.4-10.5); GFR AFRICAN-AMERICAN > 60; GFR NON-AFRICAN AMERICAN > 60
--- NOTE | 2017-05-27 08:19 | CP.PCM.PN ---
Subjective - Date & Time of Evaluation Date of Evaluation: 05/27/17 Time of Evaluation: 08:16 - Subjective Subjective: Ms. Ye was seen and examined at the bedside. She is alert, oriented. She is congested and uses oxygen while in bed. She is able to answer questions and follow commands but with some effort. She denies any headache, dizziness, lightheadedness, but claims of continuous dull back pain which she is receiving pain medication. She also states of starting chemotherapy today. There was no untoward events overnight. Objective - Vital Signs/Intake and Output Vital Signs (last 24 hours): Temp Pulse Resp BP Pulse Ox 97.9 F 101 H 18 165/88 H 90 L 05/27/17 05:27 05/27/17 05:27 05/27/17 05:27 05/27/17 05:27 05/27/17 05:27 - Medications Medications: Current Medications Acetaminophen (Tylenol 325mg Tab) 650 mg PO Q4H PRN PRN Reason: pain 4-10 Albuterol/Ipratropium (Duoneb 3 Mg/0.5 Mg (3 Ml) Ud) 3 ml IH [id number] [facility] Last Admin: 05/27/17 07:35 Dose: 3 ml Alprazolam (Xanax) 0.5 mg PO BID [facility] PRN Reason: Protocol Alprazolam (Xanax) 1 mg PO HS [facility] PRN Reason: Protocol Last Admin: 05/26/17 22:00 Dose: 1 mg Amlodipine Besylate (Norvasc) 10 mg PO DAILY [facility] Cholestyramine Resin (Questran) 4 gm PO DAILY PRN PRN Reason: high cholesterol Dexamethasone (Decadron Inj) 4 mg IVP Q6 [facility] Last Admin: 05/27/17 05:48 Dose: 4 mg Docusate Sodium (Colace) 100 mg PO DAILY [facility] Famotidine (Pepcid) 40 mg PO HS [facility] Last Admin: 05/26/17 21:51 Dose: 40 mg Fentanyl (Duragesic) 1 patch TD Q72H [facility] Heparin Sodium (Porcine) (Heparin) 5,000 units SC Q12 KIMMY PRN Reason: Protocol Last Admin: 05/26/17 21:50 Dose: 5,000 units Home Med (Home Med) 50 unit PO DAILY [facility] Insulin Human Regular (Humulin R High) 0 units SC BID [facility] PRN Reason: Protocol Lidocaine (Lidoderm) 2 ea TD DAILY [facility] Metformin HCl (Glucophage Xr) 500 mg PO BID [facility] Montelukast Sodium (Singulair) 10 mg PO HS [facility] Last Admin: 05/26/17 22:00 Dose: Not Given Morphine Sulfate (Morphine) 3 mg IVP Q3H PRN PRN Reason: Pain, severe (8-10) Last Admin: 05/27/17 05:54 Dose: 3 mg Non-Formulary Medication (Colesevelam Hcl [Welchol]) 625 mg PO QID [facility] Last Admin: 05/26/17 21:50 Dose: Not Given Ondansetron HCl (Zofran Odt) 4 mg PO Q6 PRN PRN Reason: Nausea/Vomiting Oxycodone HCl (Oxycodone Immediate Release Tab) 5 mg PO Q6H PRN PRN Reason: break through pain Pantoprazole Sodium (Protonix Ec Tab) 40 mg PO 0600 [facility] Last Admin: 05/27/17 05:49 Dose: 40 mg Polyethylene Glycol (Miralax) 17 gm PO DAILY PRN PRN Reason: Constipation Venlafaxine HCl (Effexor Xr) 75 mg PO DAILY [facility] Zolpidem Tartrate (Ambien) 5 mg PO HS PRN; Protocol PRN Reason: insomnia - Labs Labs: 05/27/17 06:45 05/27/17 06:45 - Constitutional Appears: No Acute Distress - Head Exam Head Exam: NORMAL INSPECTION - ENT Exam ENT Exam: Mucous Membranes Moist - Neurological Exam Neurological Exam: Alert, Awake, Oriented x3 Neuro motor strength exam: Left Upper Extremity: 5, Right Upper Extremity: 5, Left Lower Extremity: 5, Right Lower Extremity: 5 Additional comments: Neurological unchanged from previous examination. Assessment and Plan (1) Epidural mass Assessment & Plan: Case discussed with Dr. Mitchell, continue all current medical, physical therapies. Please refer to primary physician regarding her nasal congestion. There is no new recommendations from neurology. Status: Acute
[2017-05-27 09:01] LABS: ANISOCYTOSIS SLIGHT; LYMPHOCYTE 5 % (22.0-35.0); MONOCYTE 5 % (1.0-6.0); NEUTROPHIL 90 % (50.0-70.0); PLATELET ESTIMATE NORMAL (NORMAL)
[2017-05-27] MEDS ORDERED: Insulin Reg-HIGH-Coverage SC SCH (10:00)
[2017-05-27] MEDS ORDERED: Venlafaxine 75 mg ER Cap PO SCH (10:00)
[2017-05-27] MEDS: Venlafaxine 37.5 mg ER Cap PO SCH (10:32)
[2017-05-27] MEDS: Lidocaine 5% Patch TD SCH (12:13)
[2017-05-27] MEDS: PRISTIQUE PO SCH (12:37)
--- NOTE | 2017-05-27 14:24 | CP.PCM.HP ---
History of Present Illness - History of Present Illness History of Present Illness: 72 year old female with PMH of DM, HTN, and MDD presented to the ED for evaluation for newly found lower back mass. Patient Patient was being seen for low back pain by pain management. Patient was found to have an epidural tumor with no cord compression at T10-11 as found on thoracic MRI. Lesions were also found in the liver, likely to be metastasis. Patient was then evaluated by Dr. Puente who recommended patient come to the hospital for full workup. Today, patient is complaining of severe lower back pain and is unable to lay flat. She says tylenol does not help with pain. Patient also admits to occasional RUQ pain that radiates to the back. She denies urinary incontinence or lower extremity weakness. Denies chest pain, shortness of breath, focal deficits, fever, chills, dysuria, headache. PMH: DM, HTN, and MDD Surgical Hx: Dermoid tumor removal, C/S x 2 Family Hx: Noncontributory Social Hx: Current 1 ppd smoker x 50 years. Social alcohol use, denies illicit drugs Medications: Reviewed, as per [facility] Allergies: NKDA Present on Admission - Present on Admission Any Indicators Present on Admission: No Review of Systems - Review of Systems Review of Systems: 12 point ROS as per HPI, otherwise negative Past Patient History - Past Social History Smoking Status: Former Smoker - CARDIAC Hx Cardiac Disorders: Yes - PULMONARY Hx Respiratory Disorders: No - NEUROLOGICAL Hx Neurological Disorder: No - HEENT Hx HEENT Problems: No - RENAL Hx Chronic Kidney Disease: No - ENDOCRINE/METABOLIC Hx Diabetes Mellitus Type 2: Yes - HEMATOLOGICAL/ONCOLOGICAL Hx Blood Disorders: Yes - INTEGUMENTARY Hx Dermatological Problems: No - MUSCULOSKELETAL/RHEUMATOLOGICAL Hx Arthritis: Yes Hx Falls: No - GASTROINTESTINAL Hx Gastrointestinal Disorders: No - GENITOURINARY/GYNECOLOGICAL Hx Genitourinary Disorders: Yes - PSYCHIATRIC Hx Psychophysiologic Disorder: Yes Hx Anxiety: Yes Hx Depression: Yes - SURGICAL HISTORY Hx Orthopedic Surgery: Yes (R KNEE) - ANESTHESIA Hx Anesthesia: Yes Meds Allergies/Adverse Reactions: Allergies Allergy/AdvReac Type Severity Reaction Status Date / Time Sulfa (Sulfonamide Allergy ANAPHYLAXIS Verified 05/26/17 19:50 Antibiotics) Physical Exam - Constitutional Appears: Non-toxic, No Acute Distress Additional comments: Lethargic - Head Exam Head Exam: ATRAUMATIC, NORMAL INSPECTION, NORMOCEPHALIC - ENT Exam ENT Exam: Mucous Membranes Moist - Respiratory Exam Respiratory Exam: Decreased Breath Sounds, NORMAL BREATHING PATTERN - Cardiovascular Exam Cardiovascular Exam: RRR, +S1, +S2 - GI/Abdominal Exam GI & Abdominal Exam: Normal Bowel Sounds, Soft. absent: Tenderness - Extremities Exam Extremities exam: Positive for: normal inspection. Negative for: calf tenderness, pedal edema - Neurological Exam Neurological exam: Alert, CN II-XII Intact, Oriented x3 - Psychiatric Exam Psychiatric exam: Normal Affect, Normal Mood - Skin Skin Exam: Intact, Normal Color, Warm Results - Vital Signs Recent Vital Signs: Last Vital Signs Temp 97.9 F 05/27/17 05:27 Pulse 101 H 05/27/17 05:27 Resp 18 05/27/17 05:27 BP 99/60 L 05/27/17 11:00 Pulse Ox 90 L 05/27/17 05:27 - Labs Result Diagrams: 05/27/17 06:45 05/27/17 06:45 Labs: Laboratory Results - last 24 hr 05/26/17 05/27/17 05/27/17 21:26 05:12 06:45 WBC RBC Hgb Hct MCV MCH MCHC RDW Plt Count MPV Gran % Lymph % (Auto) [place] % (Auto) Eos % (Auto) Baso % (Auto) Gran # Lymph # (Auto) [place] # (Auto) Eos # (Auto) Baso # (Auto) Neutrophils % (Manual) Lymphocytes % (Manual) Monocytes % (Manual) Platelet Evaluation Anisocytosis (manual) Sodium 131 L Potassium 4.3 Chloride 96 L Carbon Dioxide 26 Anion Gap 13 BUN 17 Creatinine 0.6 L Est GFR ( Amer) > 60 Est GFR (Non-Af Amer) > 60 POC Glucose (mg/dL) 303 H 157 H Random Glucose 197 H Calcium 9.7 Total Bilirubin 0.7 AST 99 H ALT 104 H Alkaline Phosphatase 182 H Total Protein 7.2 Albumin 4.2 Globulin 3.0 Albumin/Globulin Ratio 1.4 05/27/17 05/27/17 06:45 11:37 WBC 6.7 RBC 4.49 Hgb 13.0 Hct 39.7 MCV 88.4 MCH 29.0 MCHC 32.7 RDW 14.0 Plt Count 151 MPV 9.4 Gran % 89.9 H Lymph % (Auto) 4.4 L [place] % (Auto) 5.4 Eos % (Auto) 0.0 L Baso % (Auto) 0.3 Gran # 5.98 Lymph # (Auto) 0.3 L [place] # (Auto) 0.4 Eos # (Auto) 0.0 Baso # (Auto) 0.02 Neutrophils % (Manual) 90 H Lymphocytes % (Manual) 5 L Monocytes % (Manual) 5 Platelet Evaluation Normal Anisocytosis (manual) Slight Sodium Potassium Chloride Carbon Dioxide Anion Gap BUN Creatinine Est GFR ( Amer) Est GFR (Non-Af Amer) POC Glucose (mg/dL) 209 H Random Glucose Calcium Total Bilirubin AST ALT Alkaline Phosphatase Total Protein Albumin Globulin Albumin/Globulin Ratio Assessment & Plan - Assessment and Plan (Free Text) Plan: 72 year old female with PMH of DM, HTN, and MDD presents to the TCU for deconditioning and chemotherapy. Patient received head, chest, abdomen, pelvis CT which showed calcified lesions in the 4th ventricle of the brain, multiple metastases to the liver, soft tissue mass near the right pulmonary artery, and mediastinal lymphadenopathy. Patient evaluated by neurosurgery who state she is not a surgical candidate. Patient will continue radiation therapy by Dr. Goyal. Biopsy of liver shows small cell cancer of lung origin. Today, patient did mention she felt congested and weak. We will start her empirically on Zosyn and Tamiflu. We will obtain a chest x-ray, RSV, and influenza tests. Patient will likely start chemotherapy on Tuesday. Dr. Alvarado has been consulted for port placement. Plan discussed with Dr. Puente. Linda, PGY-2
[2017-05-27 16:58] LABS: HEMOGLOBIN 13.2 g/dL (12.0-16.0); MEAN CELL VOLUME 88.4 fl (80.0-105.0); MEAN CORPUSCULAR HEMOGLOBIN 29.3 pg (25.0-35.0); MEAN CORPUSCULAR HGB CONC 33.2 g/dl (31.0-37.0); MEAN PLATELET VOLUME 9.6 fl (7.0-11.0); RBC 4.5 10^6/uL (3.5-6.1); RED CELL DISTRIBUTION WIDTH 14.2 % (11.5-14.5); WHITE BLOOD COUNT 7.2 10^3/ul (4.5-11.0)
[2017-05-27] MEDS: Insulin Reg-HIGH-Coverage SC SCH ×2 (17:30→22:27)
--- NOTE | 2017-05-27 18:06 | RAD ---
HISTORY: decreased SaO2 COMPARISON: 05/19/2017. Single-view chest and CT thorax abdomen and pelvis FINDINGS: LUNGS: Linear atelectasis right lower lobe. PLEURA: No significant pleural effusion identified, no pneumothorax apparent. CARDIOVASCULAR: Normal. OSSEOUS STRUCTURES: No significant abnormalities. VISUALIZED UPPER ABDOMEN: Normal. OTHER FINDINGS: Stable right hilar and mediastinal adenopathy. IMPRESSION: No significant interval change compared to the prior examination(s).
[2017-05-27] MEDS: Piperacill/Tazo 4.5gm in NS 4.5 GM/100 ML BAG IVPB SCH (18:16)
[2017-05-27] MEDS: Sodium Chloride 0.9% 1,000 ML IV SCH (21:55)
[2017-05-28] MEDS: Piperacill/Tazo 4.5gm in NS 4.5 GM/100 ML BAG IVPB SCH (00:29)
[2017-05-28] MEDS: Dexamethasone 4 mg/1 ml IVP SCH ×4 (00:30→17:36)
--- NOTE | 2017-05-28 00:59 | CON ---
DATE: 05/27/2017 REASON FOR CONSULTATION: Fluid management/hyponatremia. HISTORY OF PRESENTING ILLNESS: A 72-year-old lady, previously unknown to me, admitted on 05/19/2017 on the medical side because of a newly found lower back mass. The patient has a history of NIDDM, hypertension, MDD. She was admitted for radiation. She was currently transferred to the Transitional Care Unit for rehabilitation. Today, consultation is requested for fluid management. PAST MEDICAL AND SURGICAL HISTORY: NIDDM, hypertension, MDD, dermatoid tumor removal. FAMILY HISTORY: Noncontributory. SOCIAL HISTORY: One pack per day smoker for 50 years, alcohol use socially, no drugs. ALLERGIES: NO KNOWN DRUG ALLERGIES. MEDICATIONS: Ambien, Claritin, Colace, Welchol, Decadron 4 mg IV q. 6, DuoNeb, Duragesic, Effexor, Glucophage 500 b.i.d., heparin, insulin, Lidoderm, MiraLax, morphine, amlodipine 10, oxycodone, Pepcid, Protonix, Questran, Singulair, Tylenol, Xanax, Zofran. REVIEW OF SYSTEMS: Currently, the patient complains of pain in her back. She denies any chest tightness, palpitations. She denies any abdominal pain. She denies any nausea, vomiting. She complains of cough. She complains of shortness of breath. She complains of congestion. PHYSICAL EXAMINATION: GENERAL: Morbidly obese elderly lady sitting in bed. VITAL SIGNS: Blood pressure 99/60, heart rate 101, respiratory rate 18, temperature 97.9. HEENT: Normocephalic, atraumatic, positive pallor. NECK: Supple, no JVD. LUNGS: Coarse crackles, bilateral rhonchi, crackles mostly on the right side. CARDIAC: S1 and S2, regular rate and rhythm, no murmur, no rub. ABDOMEN: Obese, distended, soft, nontender, bowel sounds present. EXTREMITIES: 2+ pitting edema of the lower extremities. INTAKE AND OUTPUT: Not charted. LABORATORY DATA: WBC 6.7, hemoglobin 13, hematocrit 39.7, platelets 151. Sodium 131, potassium 4.3, chloride 96, CO2 of 26, BUN 17, creatinine 0.6, glucose 197, calcium 9.7, AST 99, ALT 104. Urinalysis: Yellow, clear, pH 6.0, specific 10,20, protein trace, glucose negative, ketones negative, blood trace intact. ASSESSMENT AND PLAN: 1. Mild hyponatremia. 2. [id number] diabetes mellitus. 3. Hypertension. 4. Major depressive disorder. PLAN: 1. Continue current management. 2. Avoid nephrotoxins. 3. Monitor fingersticks. 4. Okay to continue metformin. Dana Hawkins MD
[2017-05-28] MEDS: Albuterol-Ipratrop 3 mg / 0.5 (3 ml) UD IH SCH ×4 (01:47→20:35)
--- NOTE | 2017-05-28 05:33 | CON ---
DATE: 05/27/2017 PULMONARY CONSULTATION REFERRING PHYSICIAN: Yosef Reis MD REASON FOR CONSULTATION: Small cell cancer with metastatic disease. HISTORY OF PRESENT ILLNESS: This is a 72-year-old female, known to me from acute side of the hospital, has diabetes and hypertension, presented to hospital with low back pain and found to have a mass with cord compression at T10-T11 area, status post radiation therapy, been on high dose of steroids, Dilaudid, slowly improved. Had metastatic disease, it seems like to lungs, bones, liver. Had a liver biopsy done which came back as a small cell lung cancer. So she is transferred to [facility] to continue care. Today she has a change. She is little short of breath, has some cough. More sleepy and tired. No hemoptysis. Denying any headache. No high fever. No nausea, no vomiting, no diarrhea. No leg pain or leg swelling. PAST MEDICAL HISTORY: Significant for hypertension, diabetes, and as per history of present illness. ALLERGIES: NONE KNOWN. SOCIAL HISTORY: She is smoker. Denies any alcohol use. FAMILY HISTORY: No significant cardiopulmonary disease is reported. MEDICATIONS: She is on Ambien 5 mg at bedtime p.r.n., Claritin 10 mg daily, Colace 100 mg daily, Welchol 625 mg four times a day, Decadron 4 mg q.6h., DuoNeb q.6h., Effexor 75 mg daily, also on metformin 500 mg twice a day, also Pristiq 50 mg daily, Lidoderm patch at affected area, Lovenox 40 mg daily, MiraLax 17 g daily, pending morphine 3 mg q.3h. p.r.n., Nicoderm patch daily, Norvasc 10 mg daily, Roxicodone immediate release 5 mg q.6h. p.r.n., Pepcid 40 mg daily, Protonix 40 mg daily, cholestyramine 4 g daily, Singulair 10 mg daily, Tylenol p.r.n. basis, Xanax 1 mg at bedtime and 0.5 twice a day, Zofran p.r.n. REVIEW OF SYSTEMS: Mild headache. Has rhinitis, cough, sputum production. Some shortness of breath. No chest pain. No nausea, no vomiting, no diarrhea. No leg pain or leg swelling. Back pain is better. PHYSICAL EXAMINATION: GENERAL: More sleepy and tired today. VITAL SIGNS: Temperature is 98, heart rate is 101, respiratory rate is 20, blood pressure 99/60, pulse ox 90% on room air. HEENT: Moist mucous membrane. Crowded airway. Mallampati score is 4. NECK: Supple. No JVD. LUNGS: Has a scattered rhonchi and few wheezing. HEART: S1, S2. ABDOMEN: Soft, nontender, no organomegaly. EXTREMITIES: No edema. NEUROLOGIC: Awake, alert, and follows simple commands. LABORATORY DATA: Shows hemoglobin 13.2, hematocrit 39.8, WBC 7.2, platelet is 143. Sodium 131, potassium 4.3, chloride 96, bicarbonate 26, BUN 17, creatinine 0.6, glucose 172, calcium 9.7, AST 99, ALT 104, alk phos is 182. Albumin is 4.2. Influenza A test is done, which is positive. IMPRESSION AND PLAN: Small cell lung cancer involving lungs, liver, bone, especially T10-T11 area, status post radiation therapy, on steroids and morphine. I had a long discussion with Dr. Puente in the patient room. Also spoke to family and friends. So she is at risk of influenza, especially with immunocompromise, and being hospitalized. We will start her on Tamiflu 75 mg twice a day for now. I will also continue Zosyn for the next 2 or 3 days. Inhaled bronchodilator. Gastric prophylaxis, DVT prophylaxis. Keep the patient in isolation. Thank you and we will follow with you. Robert Eastman MD
[2017-05-28] MEDS: Pantoprazole 40 mg EC Tab PO SCH (05:41)
[2017-05-28] MEDS: Insulin Reg-HIGH-Coverage SC SCH ×4 (06:54→21:57)
[2017-05-28] MEDS: Morphine 5 MG/ML SYRINGE IVP PRN ×3 (07:11→21:51)
[2017-05-28 07:24] LABS: HEMOGLOBIN 12.2 g/dL (12.0-16.0); MEAN CELL VOLUME 89.3 fl (80.0-105.0); MEAN CORPUSCULAR HEMOGLOBIN 29.1 pg (25.0-35.0); MEAN CORPUSCULAR HGB CONC 32.6 g/dl (31.0-37.0); MEAN PLATELET VOLUME 9.7 fl (7.0-11.0); RBC 4.19 10^6/uL (3.5-6.1); RED CELL DISTRIBUTION WIDTH 14.3 % (11.5-14.5); WHITE BLOOD COUNT 5.8 10^3/ul (4.5-11.0)
[2017-05-28 07:27] LABS: ALB/GLOB RATIO 1.3 (1.1-1.8); ALBUMIN 3.7 g/dL (3.0-4.8); ALT/SGPT 94 U/L (7-56); AST/SGOT 74 U/L (14-36); BLOOD UREA NITROGEN 19 mg/dL (7-21); CALCIUM 9.5 mg/dL (8.4-10.5); GFR AFRICAN-AMERICAN > 60; GFR NON-AFRICAN AMERICAN > 60
[2017-05-28] MEDS: Sodium Chloride 0.9% 1,000 ML IV SCH (08:24)
[2017-05-28] MEDS ORDERED: Vitamins A & D Oint UD Foilpak TOP PRN (11:03)
[2017-05-28] MEDS: PRISTIQUE PO SCH (11:05)
[2017-05-28] MEDS: Venlafaxine 37.5 mg ER Cap PO SCH (11:13)
[2017-05-28] MEDS: Lidocaine 5% Patch TD SCH (11:13)
[2017-05-28] MEDS: Enoxaparin 40 mg Syringe SC SCH (11:13)
[2017-05-28] MEDS: Cholestyramine 4 gm/Pkt UD PO SCH (11:14)
--- NOTE | 2017-05-28 18:12 | PN ---
DATE: 05/28/2017 SUBJECTIVE: The patient is seen sitting in bed. She is awake, she is alert. She reports feeling better. She denies any chest pain. She denies any shortness of breath. PHYSICAL EXAMINATION: GENERAL: Obese elderly lady sitting in bed. VITAL SIGNS: Blood pressure 135/62, heart rate 83, respiratory rate 20, temperature 97.3. HEENT: Normocephalic, atraumatic, positive pallor. NECK: Supple, no JVD. LUNGS: Bilateral equal entry, no rales. CARDIAC: S1, S2, regular rate and rhythm, no murmur, no rub. ABDOMEN: Obese, distended, soft, nontender, bowel sounds present. EXTREMITIES: Trace lower extremity edema. INTAKE AND OUTPUT: Not charted. LABORATORY DATA: WBC 5.8, hemoglobin 12.2, hematocrit 37 and platelets 137. Sodium 132, potassium 4.1, chloride 100, CO2 of 24, BUN 19, creatinine 0.5, glucose 190, calcium 9.5, AST 74, ALT 94, albumin 3.7. Influenza A positive. ASSESSMENT: 1. Mild hyponatremia. 2. Small cell cancer of the lung. 3. Influenza A. 4.. [id number] diabetes mellitus. PLAN: 1. Push p.o. intake. 2. Discontinue IV fluids. 3. Continue medications as ordered by Pulmonary. Dana Hawkins MD
[2017-05-29] MEDS: Albuterol-Ipratrop 3 mg / 0.5 (3 ml) UD IH SCH ×4 (03:00→21:36)
[2017-05-29] MEDS: Morphine 5 MG/ML SYRINGE IVP PRN ×4 (03:49→21:35)
--- NOTE | 2017-05-29 05:20 | PN ---
DATE: 05/28/2017 REFERRING PHYSICIAN: Yosef Reis MD. SUBJECTIVE: She is lying in the bed, head elevated at 45 degrees. Feels better than last night, cough. No chills. No headache. No dysuria. No neck pain. No leg swelling. PHYSICAL EXAMINATION: GENERAL: In no acute distress. VITAL SIGNS: Temperature is 98, heart rate 91, respiratory rate is 20, blood pressure 136/66, pulse ox 96% on 3 L nasal cannula. HEENT: Moist mucous membrane. Crowded airway. Mallampati score is 4. NECK: Supple. No JVD. LUNGS: Scattered rhonchi. HEART: S1 and S2. ABDOMEN: Soft, nontender, no organomegaly. EXTREMITIES: No edema. NEUROLOGIC: Awake, alert. Follows simple command. MEDICATIONS: She is on Ambien 5 mg at bedtime p.r.n., Claritin 10 mg daily, Colace 100 mg once a day, Welchol 625 mg 4 times a day, Decadron 4 mg q.6 hours, DuoNeb q.6 hours, Effexor XR 75 mg daily, metformin 500 mg twice a day, insulin coverage, Lidoderm patch daily, Lovenox 40 mg daily, MiraLax 17 g daily, morphine 3 mg q.3 hours p.r.n., Nicoderm patch daily, nasal saline daily, oxycodone immediate release 5 mg q.6 hours p.r.n., Pepcid 40 mg daily, Protonix 40 mg daily, cholestyramine 4 g daily, Singulair 10 mg daily, Tamiflu 75 mg twice a day, Tylenol p.r.n., vitamin A and D ointment q. 4 hour p.r.n., Xanax 1 mg at bedtime, Zofran p.r.n. basis. LABORATORY DATA: Hemoglobin 12.2, hematocrit 37.4, WBC 5.8, platelet count is 137. Sodium 132, potassium 4.1, chloride 100, bicarbonate 24, BUN 19, creatinine 0.5, glucose 187, calcium 9.5. Total bilirubin 0.5, AST 74, ALT 94, alk phos is 155. Albumin is 3.7. Chest x-ray done yesterday evening, no changes from prior x-ray. 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 Also has involvement of T10 to T11 area with tumor, been on radiation therapy, steroids and morphine. Influenza A positive, started on Tamiflu. Pulmonary point of view, continue IV and inhaled bronchodilators, keep head at 45 degrees, supplement oxygen, gastric prophylaxis, deep venous thrombosis prophylaxis. Thank you and we will follow with you. Robert Eastman MD
[2017-05-29] MEDS: Dexamethasone 4 mg/1 ml IVP SCH ×4 (05:35→18:16)
[2017-05-29] MEDS: Pantoprazole 40 mg EC Tab PO SCH (05:35)
[2017-05-29] MEDS: Insulin Reg-HIGH-Coverage SC SCH ×4 (06:35→21:53)
[2017-05-29 07:15] LABS: HEMOGLOBIN 11.4 g/dL (12.0-16.0); MEAN CELL VOLUME 89.9 fl (80.0-105.0); MEAN CORPUSCULAR HEMOGLOBIN 28.7 pg (25.0-35.0); MEAN CORPUSCULAR HGB CONC 31.9 g/dl (31.0-37.0); MEAN PLATELET VOLUME 9.9 fl (7.0-11.0); RBC 3.97 10^6/uL (3.5-6.1); RED CELL DISTRIBUTION WIDTH 14.3 % (11.5-14.5); WHITE BLOOD COUNT 5.1 10^3/ul (4.5-11.0)
[2017-05-29 07:34] LABS: ALB/GLOB RATIO 1.2 (1.1-1.8); ALBUMIN 3.4 g/dL (3.0-4.8); ALT/SGPT 80 U/L (7-56); AST/SGOT 63 U/L (14-36); BLOOD UREA NITROGEN 19 mg/dL (7-21); CALCIUM 9.5 mg/dL (8.4-10.5); GFR AFRICAN-AMERICAN > 60; GFR NON-AFRICAN AMERICAN > 60
--- NOTE | 2017-05-29 08:34 | CP.PCM.PN ---
Subjective - Date & Time of Evaluation Date of Evaluation: 05/29/17 Time of Evaluation: 08:30 - Subjective Subjective: Ms. Ye was seen and examined at the bedside. She is alert, oriented. She is able to ambulate from her bed to the bathroom with cane and with stable gait. She further states that the back pain is more severe during any ambulation and less with her laying in bed. She further verbalize the fear of being dependent to pain medications, explained to the patient that pain medication is needed if the severity is too much and will help her with her ambulation. She is on droplet isolation due to influenza. There was no untoward events overnight. Objective - Vital Signs/Intake and Output Vital Signs (last 24 hours): Temp Pulse Resp BP Pulse Ox 97.7 F 85 20 148/75 92 L 05/29/17 06:00 05/29/17 06:00 05/29/17 06:00 05/29/17 06:00 05/29/17 06:00 - Medications Medications: Current Medications Acetaminophen (Tylenol 325mg Tab) 650 mg PO Q4H PRN PRN Reason: pain 4-10 Albuterol/Ipratropium (Duoneb 3 Mg/0.5 Mg (3 Ml) Ud) 3 ml IH [id number] [facility] Last Admin: 05/29/17 07:23 Dose: 3 ml Alprazolam (Xanax) 0.5 mg PO BID KIMMY PRN Reason: Protocol Last Admin: 05/28/17 17:40 Dose: 0.5 mg Alprazolam (Xanax) 1 mg PO HS KIMMY PRN Reason: Protocol Last Admin: 05/28/17 21:51 Dose: 1 mg Cholestyramine Resin (Questran) 4 gm PO DAILY [facility] PRN Reason: Protocol Last Admin: 05/28/17 11:14 Dose: 4 gm Dexamethasone (Decadron Inj) 4 mg IVP Q6 [facility] Last Admin: 05/29/17 05:35 Dose: 4 mg Docusate Sodium (Colace) 100 mg PO DAILY [facility] Last Admin: 05/28/17 11:11 Dose: 100 mg Enoxaparin Sodium (Lovenox) 40 mg SC DAILY [facility] PRN Reason: Protocol Last Admin: 05/28/17 11:13 Dose: 40 mg Famotidine (Pepcid) 40 mg PO HS [facility] Last Admin: 05/28/17 21:52 Dose: 40 mg Home Med (Home Med) 50 unit PO DAILY [facility] Last Admin: 05/28/17 11:05 Dose: Not Given Insulin Human Regular (Humulin R High) [address] [facility] PRN Reason: Protocol Last Admin: 05/29/17 06:35 Dose: 2 units Lidocaine (Lidoderm) 2 ea TD DAILY [facility] Last Admin: 05/28/17 11:13 Dose: 2 ea Loratadine (Claritin) 10 mg PO DAILY [facility] PRN Reason: Protocol Last Admin: 05/28/17 11:11 Dose: 10 mg Metformin HCl (Glucophage Xr) 500 mg PO 0800,1800 [facility] PRN Reason: Protocol Last Admin: 05/28/17 17:36 Dose: 500 mg Montelukast Sodium (Singulair) 10 mg PO [facility] Last Admin: 05/28/17 21:52 Dose: 10 mg Morphine Sulfate (Morphine) 3 mg IVP Q3H PRN PRN Reason: Pain, severe (8-10) Last Admin: 05/29/17 03:49 Dose: 3 mg Nicotine (Nicoderm Cq) 1 patch TD DAILY [facility] Last Admin: 05/28/17 11:10 Dose: 1 patch Nicotine (Nicoderm Cq) 1 patch TD DAILY [facility] Last Admin: 05/28/17 11:11 Dose: 1 patch Non-Formulary Medication (Colesevelam Hcl [Welchol]) 625 mg PO QID [facility] Last Admin: 05/28/17 21:52 Dose: 625 mg Ondansetron HCl (Zofran Odt) 4 mg PO Q6 PRN PRN Reason: Nausea/Vomiting Oseltamivir Phosphate (Tamiflu Cap) 75 mg PO BID [facility] PRN Reason: Protocol Stop: 06/01/17 15:52 Last Admin: 05/28/17 17:36 Dose: 75 mg Oxycodone HCl (Oxycodone Immediate Release Tab) 5 mg PO Q6H PRN PRN Reason: break through pain Pantoprazole Sodium (Protonix Ec Tab) 40 mg PO 0600 [facility] Last Admin: 05/29/17 05:35 Dose: 40 mg Polyethylene Glycol (Miralax) 17 gm PO DAILY PRN PRN Reason: Constipation Sodium Chloride (Mcminn Nasal Rincon) 0 ml NS DAILY PRN; Protocol PRN Reason: NASAL CONGESTION Last Admin: 05/27/17 10:31 Dose: 1 applic Venlafaxine HCl (Effexor Xr) 75 mg PO DAILY [facility] Last Admin: 05/28/17 11:13 Dose: 75 mg Vitamin A (Vitamin A & D Oint Ud Foilpak) 1 ea TOP Q4H PRN; Protocol PRN Reason: Other Last Admin: 05/28/17 15:22 Dose: 1 ea Zolpidem Tartrate (Ambien) 5 mg PO HS PRN; Protocol PRN Reason: insomnia - Labs Labs: 05/29/17 06:30 05/29/17 06:30 - Constitutional Appears: No Acute Distress - Head Exam Head Exam: NORMAL INSPECTION - Neurological Exam Neurological Exam: Alert, Awake, Oriented x3 Neuro motor strength exam: Left Upper Extremity: 4, Right Upper Extremity: 4, Left Lower Extremity: 4, Right Lower Extremity: 4 Additional comments: Neurological unchanged from previous examination. Assessment and Plan (1) Epidural mass Assessment & Plan: Case discussed with Dr. Mitchell, continue all current medical, physical, and occupational therapies. There is no new recommendations from neurology. Status: Acute
[2017-05-29] MEDS: PRISTIQUE PO SCH (10:52)
[2017-05-29] MEDS: Venlafaxine 37.5 mg ER Cap PO SCH (10:52)
[2017-05-29] MEDS: Lidocaine 5% Patch TD SCH (10:52)
[2017-05-29] MEDS: Enoxaparin 40 mg Syringe SC SCH (10:53)
[2017-05-29] MEDS: Cholestyramine 4 gm/Pkt UD PO SCH (10:53)
[2017-05-29] MEDS ORDERED: Piperacill/Tazo 4.5gm in NS 4.5 GM/100 ML BAG IVPB SCH ×2 (14:45→18:00)
[2017-05-29] MEDS: Cefepime 1gm in NS 100ml 1 GM/100 ML BAG IVPB SCH (21:29)
[2017-05-29 22:21] LABS: URINE BILIRUBIN NEGATIVE (NEGATIVE); URINE BLOOD NEGATIVE (NEGATIVE); URINE GLUCOSE (UA) 250 mg/dL (NEGATIVE); URINE LEUKOCYTE ESTERASE NEGATIVE Leu/uL (NEGATIVE); URINE NITRATE NEGATIVE (NEGATIVE); URINE PROTEIN 30 mg/dL (<30 mg/dL); URINE UROBILINOGEN 0.2 E.U./dL (<1 E.U./dL)
[2017-05-29 22:26] LABS: URINE APPEARANCE CLEAR (CLEAR); URINE COLOR YELLOW (YELLOW)
[2017-05-29 22:33] LABS: URINE AMORPHOUS SEDIMENT FEW; URINE BACTERIA MANY (NEG); URINE RBC 0 - 2 /hpf (0-2)
--- NOTE | 2017-05-30 00:33 | PN ---
DATE: 05/29/2017 PULMONARY PROGRESS NOTE REFERRING PHYSICIAN: Yosef Reis MD. SUBJECTIVE: The patient is sitting up in a chair, waiting to go to ladies room with the help of nursing staff. Feels better. Still has some cough. No nausea. No vomiting. No diarrhea, leg pain, leg swelling. OBJECTIVE: GENERAL: In no acute distress. VITAL SIGNS: Temp is 98, heart rate is 81, respiratory rate is 20, blood pressure 162/85, pulse ox 96% on 3 L nasal cannula. HEENT: Moist mucous membrane. Crowded airway. NECK: Supple. No JVD. LUNGS: Have scattered rhonchi and few crackles. HEART: S1 and S2. ABDOMEN: Soft, nontender. No organomegaly. EXTREMITIES: No edema. NEUROLOGICAL: Awake and alert. Follows simple command. LABORATORY DATA: Shows hemoglobin 11.4, hematocrit 35.7, WBC 5.1, platelet is 128. Sodium 135, potassium 4.0, chloride 101, bicarbonate 25, BUN 19, creatinine 0.4, glucose 173, calcium 9.5. AST 63, ALT 80, alk phos is 139, albumin is 3.4. Influenza A serology is positive. MEDICATIONS: She is on Ambien 5 mg at bedtime p.r.n., Claritin 10mg daily, Colace 100 mg daily, Welchol 625 mg four times daily, Decadron 4 mg q. 6 hours, doxycycline 100 mg twice a day, DuoNeb q. 6 hours, Effexor XR 75 mg daily, metformin is 500 mg twice a day, Lidoderm patch to affected area, Lovenox 40 mg daily, cefepime 1 g IV q. 8 hours, MiraLax 17 g daily, morphine is 3 mg q. 3 hours p.r.n., Nicoderm patch daily, nasal saline 2 sprays each nostril q. 6 hours, oxycodone immediate release 5 mg q. 6 hours p.r.n., Pepcid 40 mg daily, Protonix 40 mg daily, cholestyramine 4 g daily, Singulair 10 mg daily, Tamiflu 75 mg twice a day, Tylenol p.r.n. basis, vitamin A and D ointment to affected area, Xanax is 1 mg at bedtime, also Xanax 0.5 mg twice a day, Zofran p.r.n. basis. 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 Also, metastasis to the T10 -T11 with tumor. Compressing the cord. Status post radiation therapy, on steroids and morphine. At present, has influenza A infection with acute bronchitis. Case discussed with Dr. Puente. Continue bronchodilator. Continue Tamiflu. On steroids for spinal tumor. Fall precaution, gastric prophylaxis. Deep venous thrombosis prophylaxis. Thank you and we will follow up with you. Robert Eastman MD
[2017-05-30] MEDS: Albuterol-Ipratrop 3 mg / 0.5 (3 ml) UD IH SCH ×4 (02:00→20:21)
[2017-05-30] MEDS: Morphine 5 MG/ML SYRINGE IVP PRN ×4 (04:09→17:01)
[2017-05-30] MEDS: Pantoprazole 40 mg EC Tab PO SCH (05:16)
[2017-05-30] MEDS: Dexamethasone 4 mg/1 ml IVP SCH ×4 (05:16→17:07)
[2017-05-30] MEDS: Cefepime 1gm in NS 100ml 1 GM/100 ML BAG IVPB SCH ×3 (05:18→22:18)
[2017-05-30] MEDS: Insulin Reg-HIGH-Coverage SC SCH ×4 (06:45→22:34)
[2017-05-30 07:18] LABS: ALB/GLOB RATIO 1.2 (1.1-1.8); ALBUMIN 3.4 g/dL (3.0-4.8); ALT/SGPT 92 U/L (7-56); AST/SGOT 71 U/L (14-36); BLOOD UREA NITROGEN 18 mg/dL (7-21); CALCIUM 9.2 mg/dL (8.4-10.5); GFR AFRICAN-AMERICAN > 60; GFR NON-AFRICAN AMERICAN > 60
[2017-05-30 08:55] LABS: HEMOGLOBIN 11.4 g/dL (12.0-16.0); MEAN CELL VOLUME 89.1 fl (80.0-105.0); MEAN CORPUSCULAR HGB CONC 32.6 g/dl (31.0-37.0); MEAN PLATELET VOLUME 10.3 fl (7.0-11.0); RBC 3.93 10^6/uL (3.5-6.1); RED CELL DISTRIBUTION WIDTH 14.1 % (11.5-14.5); WHITE BLOOD COUNT 4.9 10^3/ul (4.5-11.0)
[2017-05-30] MEDS: Venlafaxine 37.5 mg ER Cap PO SCH (09:37)
[2017-05-30] MEDS: Cholestyramine 4 gm/Pkt UD PO SCH (09:38)
[2017-05-30] MEDS: Enoxaparin 40 mg Syringe SC SCH (09:39)
[2017-05-30] MEDS: Lidocaine 5% Patch TD SCH (09:39)
--- NOTE | 2017-05-30 10:26 | PN ---
DATE: 05/30/2017 ONCOLOGY PROGRESS NOTE LOCATION: Patient is in room 321. SUBJECTIVE: Patient is seen and examined and lying in bed with the head elevated at 45 degrees. Patient had an uneventful night. 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 No coughing, no chills, no headache. The weakness that she had on Tuesday appears to be a little bit better and she started the Tamiflu. No dysuria, no leg pain, no neck pain. Bowel movements have been okay. No nausea, no vomiting. PHYSICAL EXAMINATION GENERAL: Patient is in no acute distress. VITAL SIGNS: Stable as stated in the chart. T-max is 98.4, heart rate is 91, respirations 20, blood pressure 136/66, pulse ox is 96% on 3 liters of nasal cannula. HEENT: Head is normocephalic, atraumatic. Conjunctivae pale. Sclerae is anicteric. Pupils are equally reactive to light and accommodation. Examination of the oropharynx reveals no oropharyngeal lesions. Tongue is moist. No ulcerations are noted. NECK: Supple. There is no adenopathy. No jugular venous distention noted. LUNGS: Reveals decreased breath sounds in the right upper lobe with scattered rhonchi bilaterally. HEART: Reveals PMI to be in the fifth intercostal space inside the midclavicular line. S1 and S2 are normal. No gallops or murmurs heard. ABDOMEN: Soft, nontender. No rebound, rigidity or guarding is noted. Liver and spleen are not palpable. Bowel sounds are present. EXTREMITIES: Reveals no cyanosis, clubbing or edema. NEUROLOGIC: Reveals higher functions to be normal. No focal deficits are noted. LYMPHATICS: Examination for adenopathy reveals no adenopathy in the neck, axilla or groin. MEDICATIONS: Patient's medications were reviewed. She is on Ambien 5 mg at bedtime p.r.n., Claritin 10 mg daily, Colace 100 mg once a day, Welchol 624 mg four times a day, Decadron 4 mg q. 6 hours, DuoNeb q. 6 hours, Effexor XR 75 mg daily, metformin 500 mg twice daily, insulin coverage, Lidoderm patch daily, Lovenox 40 mg daily, MiraLax 17 g daily, morphine 3 mg q. 3 hours p.r.n., Nicoderm patch mg daily, nasal saline daily, oxycodone immediate release 5 mg q. 6h. p.r.n., Pepcid 40 mg daily, Protonix 40 mg daily, cholestyramine 4 g daily. She is on Singulair 10 mg daily, Tamiflu 75 b.i.d., Tylenol p.r.n., vitamin A and vitamin D ointment q. 4h. p.r.n., Xanax 1 mg at bedtime, Zofran p.r.n. and she is also on IV piperacillin IV q. 8 hours - the dose is 4.6 g. LABORATORY DATA: Reveals a hemoglobin of 12.2, hematocrit 37.4, white count is 5.6, platelet count is 137,000. Sodium is 132, potassium is 4.1, chloride 100, bicarbonate is 24, BUN is 19, creatinine is 0.4, glucose is 187, calcium is 9.5, total bilirubin is 0.5, AST 74, ALT is 94, alkaline phosphatase 156 and albumin is 3.7. Chest x-ray shows mediastinal infiltrates, but no other new evidence of other infusions or infiltrate at this time. 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 Pain on pain scale of 0 to 10 is down to 6. Pain is more when she stands up and tries to walk around ; when she is lying in bed, patient is accounting that her pain is substantially improved. Long discussion with the patient, spoke to the daughter in front of the patient via phone and we discussed the problems the patient is currently going through. Patient is positive for influenza A and has been started on Tamiflu already along with Zosyn. I told her at this point in time, we will have to wait and see in which direction we should proceed. Patient has two more radiation doses to be completed and I have told her at least by Tuesday or Tuesday, we may be able to start her systemic chemotherapy with carboplatin and etoposide and see in which direction which should be going. Patient has both deep venous thrombosis and gastrointestinal prophylaxis. Routine post-exam instructions have been given to the patient. Time spent with the patient was greater than 80 minutes, out of which more than 50% of the time was spent in counseling the patient and talking to the family regarding the overall prognosis and our treatment plans over the next 3 to 5 days. Labs for morning have been requested. Rudy Puente MD
--- NOTE | 2017-05-30 11:17 | CP.PCM.PN ---
Subjective - Date & Time of Evaluation Date of Evaluation: 05/30/17 Time of Evaluation: 11:12 - Subjective Subjective: Patient seen and examined at bedside. Patient states she is doing better than on Tuesday. Patient states she has more energy today, but back pain remains the same. Denies chest pain, shortness of breath, nausea, vomiting, diarrhea, fever , chills. Objective - Vital Signs/Intake and Output Vital Signs (last 24 hours): Temp Pulse Resp BP Pulse Ox 97.4 F L 81 20 162/85 H 96 05/29/17 16:23 05/29/17 16:23 05/29/17 16:23 05/29/17 16:23 05/29/17 16:23 - Medications Medications: Current Medications Acetaminophen (Tylenol 325mg Tab) 650 mg PO Q4H PRN PRN Reason: pain 4-10 Albuterol/Ipratropium (Duoneb 3 Mg/0.5 Mg (3 Ml) Ud) 3 ml IH [id number] [facility] Last Admin: 05/30/17 09:15 Dose: 3 ml Alprazolam (Xanax) 0.5 mg PO BID [facility] PRN Reason: Protocol Last Admin: 05/29/17 18:15 Dose: 0.5 mg Alprazolam (Xanax) 1 mg PO HS [facility] PRN Reason: Protocol Last Admin: 05/29/17 21:35 Dose: 1 mg Cholestyramine Resin (Questran) 4 gm PO DAILY [facility] PRN Reason: Protocol Last Admin: 05/30/17 09:38 Dose: 4 gm Dexamethasone (Decadron Inj) 4 mg IVP Q6 [facility] Last Admin: 05/30/17 05:16 Dose: 4 mg Docusate Sodium (Colace) 100 mg PO DAILY [facility] Last Admin: 05/30/17 09:36 Dose: 100 mg Doxycycline Hyclate (Doryx) 100 mg PO Q12 [facility] PRN Reason: Protocol Stop: 06/07/17 22:01 Last Admin: 05/30/17 09:37 Dose: 100 mg Enoxaparin Sodium (Lovenox) 40 mg SC DAILY [facility] PRN Reason: Protocol Last Admin: 05/30/17 09:39 Dose: 40 mg Famotidine (Pepcid) 40 mg PO HS [facility] Last Admin: 05/29/17 21:35 Dose: 40 mg Home Med (Home Med) 50 unit PO DAILY [facility] Last Admin: 05/29/17 10:52 Dose: Not Given Cefepime HCl (Maxipime 1gm) 1 gm in 100 mls @ 100 mls/hr IVPB Q8 [facility] PRN Reason: Protocol Stop: 06/07/17 22:01 Last Admin: 05/30/17 05:18 Dose: 100 mls/hr Insulin Human Regular (Humulin R High) 0 units SC ACHS [facility] PRN Reason: Protocol Last Admin: 05/30/17 06:45 Dose: 2 units Lidocaine (Lidoderm) 2 ea TD DAILY [facility] Last Admin: 05/30/17 09:39 Dose: 2 ea Loratadine (Claritin) 10 mg PO DAILY [facility] PRN Reason: Protocol Last Admin: 05/30/17 09:36 Dose: 10 mg Metformin HCl (Glucophage Xr) 500 mg PO 0800,1800 [facility] PRN Reason: Protocol Last Admin: 05/30/17 08:17 Dose: 500 mg Montelukast Sodium (Singulair) 10 mg PO HS [facility] Last Admin: 05/29/17 21:35 Dose: 10 mg Morphine Sulfate (Morphine) 3 mg IVP Q3H PRN PRN Reason: Pain, severe (8-10) Last Admin: 05/30/17 08:17 Dose: 3 mg Nicotine (Nicoderm Cq) 1 patch TD DAILY [facility] Last Admin: 05/30/17 09:40 Dose: 1 patch Nicotine (Nicoderm Cq) 1 patch TD DAILY [facility] Last Admin: 05/30/17 09:40 Dose: 1 patch Non-Formulary Medication (Colesevelam Hcl [Welchol]) 625 mg PO QID [facility] Last Admin: 05/30/17 09:37 Dose: 625 mg Ondansetron HCl (Zofran Odt) 4 mg PO Q6 PRN PRN Reason: Nausea/Vomiting Oseltamivir Phosphate (Tamiflu Cap) 75 mg PO BID [facility] PRN Reason: Protocol Stop: 06/01/17 15:52 Last Admin: 05/30/17 09:50 Dose: 75 mg Oxycodone HCl (Oxycodone Immediate Release Tab) 5 mg PO Q6H PRN PRN Reason: break through pain Pantoprazole Sodium (Protonix Ec Tab) 40 mg PO 0600 [facility] Last Admin: 05/30/17 05:16 Dose: 40 mg Polyethylene Glycol (Miralax) 17 gm PO DAILY PRN PRN Reason: Constipation Sodium Chloride ([place] Nasal [place]) 0 ml NS DAILY PRN; Protocol PRN Reason: NASAL CONGESTION Last Admin: 05/27/17 10:31 Dose: 1 applic Venlafaxine HCl (Effexor Xr) 75 mg PO DAILY [facility] Last Admin: 05/30/17 09:37 Dose: 75 mg Vitamin A (Vitamin A & D Oint Ud Foilpak) 1 ea TOP Q4H PRN; Protocol PRN Reason: Other Last Admin: 05/28/17 15:22 Dose: 1 ea Zolpidem Tartrate (Ambien) 5 mg PO HS PRN; Protocol PRN Reason: insomnia - Labs Labs: 05/30/17 08:00 05/30/17 06:30 - Constitutional Appears: Non-toxic, No Acute Distress - Head Exam Head Exam: ATRAUMATIC, NORMAL INSPECTION, NORMOCEPHALIC - ENT Exam ENT Exam: Mucous Membranes Moist - Respiratory Exam Respiratory Exam: Clear to Ausculation Bilateral, NORMAL BREATHING PATTERN - Cardiovascular Exam Cardiovascular Exam: RRR, +S1, +S2 - GI/Abdominal Exam GI & Abdominal Exam: Soft, Normal Bowel Sounds. absent: Tenderness - Extremities Exam Extremities Exam: Pedal Edema (Trace b/l). absent: Calf Tenderness - Back Exam Back Exam: absent: paraspinal tenderness, vertebral tenderness - Neurological Exam Neurological Exam: Alert, Awake, Oriented x3 - Psychiatric Exam Psychiatric exam: Normal Affect, Normal Mood - Skin Skin Exam: Dry, Intact, Normal Color Assessment and Plan - Assessment and Plan (Free Text) Plan: 72 year old female with PMH of DM, HTN, and MDD presents to the TCU for deconditioning and chemotherapy for small cell cancer with mets to the bone and liver. Patient also discovered to be influenza positive, started on Tamiflu. Patient will continue radiation therapy, until the next three days. Patient was originally scheduled to have chemotherapy to begin today, but due to patient's flu status we will hold off at this time. Patient also will have ID consulted. IR consulted at this time for port placement, tentatively scheduled for Tuesday. Will continue to follow closely. Plan discussed with Dr. Puente. Linda, PGY-2
--- NOTE | 2017-05-30 12:24 | CP.PCM.CON ---
History of Present Illness - History of Present Illness History of Present Illness: 72 year old female with PMH of DM, HTN, and depression, lower back tumor, obesity with BMI 30 was initially admitted because of the tumor in his thoracic area. She then developed Influenza and also has cough and SOB and has acute bronchitis. She is in [facility] for continued medical therapy and physical rehab. Infectious Diseases consult is requested to further evaluate and manage. Currently she is comfortable in bed, no SOB at rest, no nausea or vomiting, no headache or dizziness, no chest pain, no sore throat, no rhinorrhea, no abdominal pain, no diarrhea, no dysuria. Review of Systems - Review of Systems All systems: reviewed and no additional remarkable complaints except (as per HPI ) Past Patient History - Past Social History Smoking Status: Former Smoker - CARDIAC Hx Hypertension: Yes - PULMONARY Hx Respiratory Disorders: No - NEUROLOGICAL Hx Neurological Disorder: No - HEENT Hx HEENT Problems: No - RENAL Hx Chronic Kidney Disease: No - ENDOCRINE/METABOLIC Hx Diabetes Mellitus Type 2: Yes - HEMATOLOGICAL/ONCOLOGICAL Hx Blood Disorders: Yes - INTEGUMENTARY Hx Dermatological Problems: No - MUSCULOSKELETAL/RHEUMATOLOGICAL Hx Arthritis: Yes Hx Falls: No - GASTROINTESTINAL Hx Gastrointestinal Disorders: No - GENITOURINARY/GYNECOLOGICAL Hx Genitourinary Disorders: Yes - PSYCHIATRIC Hx Psychophysiologic Disorder: Yes Hx Anxiety: Yes Hx Depression: Yes - SURGICAL HISTORY Hx Orthopedic Surgery: Yes (R KNEE) - ANESTHESIA Hx Anesthesia: Yes Meds Allergies/Adverse Reactions: Allergies Allergy/AdvReac Type Severity Reaction Status Date / Time Sulfa (Sulfonamide Allergy ANAPHYLAXIS Verified 05/26/17 19:50 Antibiotics) - Medications Medications: Current Medications Acetaminophen (Tylenol 325mg Tab) 650 mg PO Q4H PRN PRN Reason: pain 4-10 Albuterol/Ipratropium (Duoneb 3 Mg/0.5 Mg (3 Ml) Ud) 3 ml IH [id number] [facility] Last Admin: 05/30/17 02:00 Dose: Not Given Alprazolam (Xanax) 0.5 mg PO BID [facility] PRN Reason: Protocol Last Admin: 05/29/17 18:15 Dose: 0.5 mg Alprazolam (Xanax) 1 mg PO HS [facility] PRN Reason: Protocol Last Admin: 05/29/17 21:35 Dose: 1 mg Cholestyramine Resin (Questran) 4 gm PO DAILY [facility] PRN Reason: Protocol Last Admin: 05/29/17 10:53 Dose: 4 gm Dexamethasone (Decadron Inj) 4 mg IVP Q6 [facility] Last Admin: 05/30/17 05:16 Dose: 4 mg Docusate Sodium (Colace) 100 mg PO DAILY [facility] Last Admin: 05/29/17 10:51 Dose: 100 mg Doxycycline Hyclate (Doryx) 100 mg PO Q12 [facility] PRN Reason: Protocol Stop: 06/07/17 22:01 Last Admin: 05/29/17 21:35 Dose: 100 mg Enoxaparin Sodium (Lovenox) 40 mg SC DAILY [facility] PRN Reason: Protocol Last Admin: 05/29/17 10:53 Dose: 40 mg Famotidine (Pepcid) 40 mg PO HS [facility] Last Admin: 05/29/17 21:35 Dose: 40 mg Home Med (Home Med) 50 unit PO DAILY [facility] Last Admin: 05/29/17 10:52 Dose: Not Given Cefepime HCl (Maxipime 1gm) 1 gm in 100 mls @ 100 mls/hr IVPB Q8 [facility] PRN Reason: Protocol Stop: 06/07/17 22:01 Last Admin: 05/30/17 05:18 Dose: 100 mls/hr Insulin Human Regular (Humulin R High) 0 units SC ACHS [facility] PRN Reason: Protocol Last Admin: 05/30/17 06:45 Dose: 2 units Lidocaine (Lidoderm) 2 ea TD DAILY [facility] Last Admin: 05/29/17 10:52 Dose: 2 ea Loratadine (Claritin) 10 mg PO DAILY [facility] PRN Reason: Protocol Last Admin: 05/29/17 10:51 Dose: 10 mg Metformin HCl (Glucophage Xr) 500 mg PO 0800,1800 [facility] PRN Reason: Protocol Last Admin: 05/29/17 18:20 Dose: 500 mg Montelukast Sodium (Singulair) 10 mg PO HS [facility] Last Admin: 05/29/17 21:35 Dose: 10 mg Morphine Sulfate (Morphine) 3 mg IVP Q3H PRN PRN Reason: Pain, severe (8-10) Last Admin: 05/30/17 04:09 Dose: 3 mg Nicotine (Nicoderm Cq) 1 patch TD DAILY [facility] Last Admin: 05/29/17 10:51 Dose: 1 patch Nicotine (Nicoderm Cq) 1 patch TD DAILY [facility] Last Admin: 05/29/17 10:51 Dose: 1 patch Non-Formulary Medication (Colesevelam Hcl [Welchol]) 625 mg PO QID [facility] Last Admin: 05/29/17 21:36 Dose: 625 mg Ondansetron HCl (Zofran Odt) 4 mg PO Q6 PRN PRN Reason: Nausea/Vomiting Oseltamivir Phosphate (Tamiflu Cap) 75 mg PO BID [facility] PRN Reason: Protocol Stop: 06/01/17 15:52 Last Admin: 05/29/17 18:21 Dose: 75 mg Oxycodone HCl (Oxycodone Immediate Release Tab) 5 mg PO Q6H PRN PRN Reason: break through pain Pantoprazole Sodium (Protonix Ec Tab) 40 mg PO 0600 [facility] Last Admin: 05/30/17 05:16 Dose: 40 mg Polyethylene Glycol (Miralax) 17 gm PO DAILY PRN PRN Reason: Constipation Sodium Chloride ([place] Nasal [place]) 0 ml NS DAILY PRN; Protocol PRN Reason: NASAL CONGESTION Last Admin: 05/27/17 10:31 Dose: 1 applic Venlafaxine HCl (Effexor Xr) 75 mg PO DAILY [facility] Last Admin: 05/29/17 10:52 Dose: 75 mg Vitamin A (Vitamin A & D Oint Ud Foilpak) 1 ea TOP Q4H PRN; Protocol PRN Reason: Other Last Admin: 05/28/17 15:22 Dose: 1 ea Zolpidem Tartrate (Ambien) 5 mg PO HS PRN; Protocol PRN Reason: insomnia Physical Exam - Constitutional Appears: Non-toxic, Chronically Ill - Head Exam Head Exam: NORMAL INSPECTION - Neck Exam Neck exam: Negative for: Meningismus - Respiratory Exam Respiratory Exam: Decreased Breath Sounds - Cardiovascular Exam Cardiovascular Exam: +S1, +S2 - GI/Abdominal Exam GI & Abdominal Exam: Soft. absent: Tenderness Results - Vital Signs Recent Vital Signs: Last Vital Signs Temp 97.4 F L 05/29/17 16:23 Pulse 81 05/29/17 16:23 Resp 20 05/29/17 16:23 BP 162/85 H 05/29/17 16:23 Pulse Ox 96 05/29/17 16:23 - Labs Result Diagrams: 05/30/17 08:00 05/30/17 06:30 Labs: Laboratory Results - last 24 hr 05/29/17 05/29/17 05/29/17 06:30 06:30 06:30 WBC 5.1 RBC 3.97 Hgb 11.4 L Hct 35.7 L MCV 89.9 MCH 28.7 MCHC 31.9 RDW 14.3 Plt Count 128 MPV 9.9 Sodium 135 Potassium 4.0 Chloride 101 Carbon Dioxide 25 Anion Gap 13 BUN 19 Creatinine 0.4 L Est GFR ( Amer) > 60 Est GFR (Non-Af Amer) > 60 POC Glucose (mg/dL) Random Glucose 173 H Calcium 9.5 Total Bilirubin 0.3 AST 63 H ALT 80 H Alkaline Phosphatase 139 H Total Protein 6.3 Albumin 3.4 Globulin 2.8 Albumin/Globulin Ratio 1.2 Procalcitonin 1.06 H Urine Color Urine Appearance Urine pH Ur Specific [place] Urine Protein Urine Glucose (UA) Urine Ketones Urine Blood Urine Nitrate Urine Bilirubin Urine Urobilinogen Ur Leukocyte Esterase Urine RBC Urine WBC Ur Epithelial Cells Amorphous Sediment Urine Bacteria 05/29/17 05/29/17 05/29/17 11:13 16:53 21:22 WBC RBC Hgb Hct MCV MCH MCHC RDW Plt Count MPV Sodium Potassium Chloride Carbon Dioxide Anion Gap BUN Creatinine Est GFR ( Amer) Est GFR (Non-Af Amer) POC Glucose (mg/dL) 175 H 155 H 215 H Random Glucose Calcium Total Bilirubin AST ALT Alkaline Phosphatase Total Protein Albumin Globulin Albumin/Globulin Ratio Procalcitonin Urine Color Urine Appearance Urine pH Ur Specific [place] Urine Protein Urine Glucose (UA) Urine Ketones Urine Blood Urine Nitrate Urine Bilirubin Urine Urobilinogen Ur Leukocyte Esterase Urine RBC Urine WBC Ur Epithelial Cells Amorphous Sediment Urine Bacteria 05/29/17 05/30/17 22:10 04:42 WBC RBC Hgb Hct MCV MCH MCHC RDW Plt Count MPV Sodium Potassium Chloride Carbon Dioxide Anion Gap BUN Creatinine Est GFR ( Amer) Est GFR (Non-Af Amer) POC Glucose (mg/dL) 157 H Random Glucose Calcium Total Bilirubin AST ALT Alkaline Phosphatase Total Protein Albumin Globulin Albumin/Globulin Ratio Procalcitonin Urine Color Yellow Urine Appearance Clear Urine pH 6.0 Ur Specific [place] 1.020 Urine Protein 30 H Urine Glucose (UA) 250 H Urine Ketones Negative Urine Blood Negative Urine Nitrate Negative Urine Bilirubin Negative Urine Urobilinogen 0.2 Ur Leukocyte Esterase Negative Urine RBC 0 - 2 Urine WBC 1 - 3 Ur Epithelial Cells 4 - 5 Amorphous Sediment Few Urine Bacteria Many Assessment & Plan - Assessment and Plan (Free Text) Plan: Assessment Systemic viral illness with Influenza and acute bronchitis DM HTN depression lower back tumor obesity with BMI 30 Plan Started the patient on Doxycycline and Cefepime and continue Tamiflu (day 3 to 4 of 5 days) will monitor clinically
[2017-05-30] MEDS: PRISTIQUE PO SCH (12:35)
--- NOTE | 2017-05-30 13:18 | CP.PCM.PN ---
Subjective - Date & Time of Evaluation Date of Evaluation: 05/30/17 Time of Evaluation: 13:15 - Subjective Subjective: Ms. Ye was seen and examined at the bedside. She remains alert, oriented in all spheres. She denies any headache, but has dull continuous pain in her back, the pain is relieved with pain medications and supine position. It is aggravated with movement. She further states that her physical therapy session sis being done within her room since she remain son droplet isolation for influenza. There was no untoward events overnight. Objective - Vital Signs/Intake and Output Vital Signs (last 24 hours): Temp Pulse Resp BP Pulse Ox 97.4 F L 81 20 162/85 H 96 05/29/17 16:23 05/29/17 16:23 05/29/17 16:23 05/29/17 16:23 05/29/17 16:23 - Medications Medications: Current Medications Acetaminophen (Tylenol 325mg Tab) 650 mg PO Q4H PRN PRN Reason: pain 4-10 Albuterol/Ipratropium (Duoneb 3 Mg/0.5 Mg (3 Ml) Ud) 3 ml IH [id number] [facility] Last Admin: 05/30/17 09:15 Dose: 3 ml Alprazolam (Xanax) 0.5 mg PO BID [facility] PRN Reason: Protocol Last Admin: 05/30/17 12:34 Dose: 0.5 mg Alprazolam (Xanax) 1 mg PO HS [facility] PRN Reason: Protocol Last Admin: 05/29/17 21:35 Dose: 1 mg Cholestyramine Resin (Questran) 4 gm PO DAILY [facility] PRN Reason: Protocol Last Admin: 05/30/17 09:38 Dose: 4 gm Dexamethasone (Decadron Inj) 4 mg IVP Q6 [facility] Last Admin: 05/30/17 12:49 Dose: 4 mg Docusate Sodium (Colace) 100 mg PO DAILY [facility] Last Admin: 05/30/17 09:36 Dose: 100 mg Doxycycline Hyclate (Doryx) 100 mg PO Q12 [facility] PRN Reason: Protocol Stop: 06/07/17 22:01 Last Admin: 05/30/17 09:37 Dose: 100 mg Enoxaparin Sodium (Lovenox) 40 mg SC DAILY [facility] PRN Reason: Protocol Last Admin: 05/30/17 09:39 Dose: 40 mg Famotidine (Pepcid) 40 mg PO HS [facility] Last Admin: 05/29/17 21:35 Dose: 40 mg Home Med (Home Med) 50 unit PO DAILY [facility] Last Admin: 05/30/17 12:35 Dose: Not Given Cefepime HCl (Maxipime 1gm) 1 gm in 100 mls @ 100 mls/hr IVPB Q8 [facility] PRN Reason: Protocol Stop: 06/07/17 22:01 Last Admin: 05/30/17 05:18 Dose: 100 mls/hr Insulin Human Regular (Humulin R High) 0 units SC ACHS [facility] PRN Reason: Protocol Last Admin: 05/30/17 12:47 Dose: 2 units Lidocaine (Lidoderm) 2 ea TD DAILY [facility] Last Admin: 05/30/17 09:39 Dose: 2 ea Loratadine (Claritin) 10 mg PO DAILY [facility] PRN Reason: Protocol Last Admin: 05/30/17 09:36 Dose: 10 mg Metformin HCl (Glucophage Xr) 500 mg PO 0800,1800 [facility] PRN Reason: Protocol Last Admin: 05/30/17 08:17 Dose: 500 mg Montelukast Sodium (Singulair) 10 mg PO HS [facility] Last Admin: 05/29/17 21:35 Dose: 10 mg Morphine Sulfate (Morphine) 3 mg IVP Q3H PRN PRN Reason: Pain, severe (8-10) Last Admin: 05/30/17 12:33 Dose: 3 mg Nicotine (Nicoderm Cq) 1 patch TD DAILY [facility] Last Admin: 05/30/17 09:40 Dose: 1 patch Nicotine (Nicoderm Cq) 1 patch TD DAILY [facility] Last Admin: 05/30/17 09:40 Dose: 1 patch Non-Formulary Medication (Colesevelam Hcl [Welchol]) 625 mg PO QID [facility] Last Admin: 05/30/17 09:37 Dose: 625 mg Ondansetron HCl (Zofran Odt) 4 mg PO Q6 PRN PRN Reason: Nausea/Vomiting Oseltamivir Phosphate (Tamiflu Cap) 75 mg PO BID [facility] PRN Reason: Protocol Stop: 06/01/17 15:52 Last Admin: 05/30/17 09:50 Dose: 75 mg Oxycodone HCl (Oxycodone Immediate Release Tab) 5 mg PO Q6H PRN PRN Reason: break through pain Pantoprazole Sodium (Protonix Ec Tab) 40 mg PO 0600 [facility] Last Admin: 05/30/17 05:16 Dose: 40 mg Polyethylene Glycol (Miralax) 17 gm PO DAILY PRN PRN Reason: Constipation Sodium Chloride ([place] Nasal [place]) 0 ml NS DAILY PRN; Protocol PRN Reason: NASAL CONGESTION Last Admin: 05/27/17 10:31 Dose: 1 applic Venlafaxine HCl (Effexor Xr) 75 mg PO DAILY [facility] Last Admin: 05/30/17 09:37 Dose: 75 mg Vitamin A (Vitamin A & D Oint Ud Foilpak) 1 ea TOP Q4H PRN; Protocol PRN Reason: Other Last Admin: 05/28/17 15:22 Dose: 1 ea Zolpidem Tartrate (Ambien) 5 mg PO HS PRN; Protocol PRN Reason: insomnia - Labs Labs: 05/30/17 08:00 05/30/17 06:30 - Constitutional Appears: No Acute Distress - Head Exam Head Exam: NORMAL INSPECTION - Neurological Exam Neurological Exam: Alert, Awake, Oriented x3 Neuro motor strength exam: Left Upper Extremity: 5, Right Upper Extremity: 5, Left Lower Extremity: 5, Right Lower Extremity: 5 Additional comments: Neurological unchanged from previous examination. Assessment and Plan (1) Epidural mass Assessment & Plan: Case discussed with Dr. Martínez, continue all current medical, physical, and occupational therapies. With her neurological remains stable and the back pain is coming from her metastatic thoracic segment which is more for oncology not neurology. Neurology is signing off from this case. If her neurological status deviate from her baseline, please re-consult us. Status: Acute
--- NOTE | 2017-05-30 22:02 | PN ---
DATE: 05/30/2017 SUBJECTIVE: The patient is seen lying in bed. She is awake, she is alert. She complains of being very tired today. She denies any cough. She denies any shortness of breath. She denies any fevers. PHYSICAL EXAMINATION: GENERAL: Elderly lady sitting in bed. VITAL SIGNS: Blood pressure 162/85, heart rate 81, respiratory rate 20, temperature 97.4. HEENT: Normocephalic, atraumatic. NECK: Supple, no JVD. LUNGS: Bilateral rhonchi, coarse crackles right side. CARDIAC: S1, S2, no murmur, no rub. ABDOMEN: Obese, distended, soft, nontender, bowel sounds present. EXTREMITIES: Trace lower extremity edema. Intake and output not charted. LABORATORY DATA: WBC 4.9, hemoglobin 11.4, hematocrit 35, platelets 133. Sodium 133, potassium 4.1, chloride 99, CO2 of 24, BUN 18, creatinine 0.4, glucose 171, calcium 9.2. Albumin 3.4. MEDICATIONS: List reviewed. ASSESSMENT: 1. Mild hyponatremia. 2. History of small cell cancer of the lung. 3. Influenza A. 4. Iff-[id number] diabetes mellitus. 5. Deconditioning. PLAN: 1. No intervention needed for mild hyponatremia. 2. Continue to monitor fingersticks. 3. Physical therapy. Dana Hawkins MD
[2017-05-30] MEDS ORDERED: oxyCODONE 5 mg Immediate Release Tab PO PRN (22:59)
[2017-05-31] MEDS: Dexamethasone 4 mg/1 ml IVP SCH ×4 (00:15→18:08)
--- NOTE | 2017-05-31 00:43 | PN ---
DATE: 05/30/2017 REFERRING PHYSICIAN: Yosef Reis MD SUBJECTIVE: Patient is lying in the bed, head at 45 degrees. Night was unremarkable. Still has some cough. No nausea. No vomiting. No diarrhea. No leg pain or leg swelling. OBJECTIVE: GENERAL: In no acute distress. VITAL SIGNS: Temperature is 98, heart rate is 84, respiratory rate is 20, blood pressure 151/77, pulse ox 97% on 3 L of nasal cannula. HEENT: Moist mucous membrane. No ulcer or thrush noted. NECK: Supple. No JVD. LUNGS: Have a fair airflow with rhonchi. HEART: S1 and S2. ABDOMEN: Soft, nontender. No organomegaly. EXTREMITIES: No edema. NEUROLOGIC: Awake, alert, and follows simple commands. MEDICATIONS: She is on Ambien 5 mg at bedtime p.r.n. for insomnia, Claritin 10 mg daily, Colace 100 mg twice a day, Welchol 625 mg q.i.d., Decadron 4 mg q. 6 hours, doxycycline 100 mg twice a day, DuoNeb q. 6 hours, Effexor XR 75 mg daily, metformin XR 500 mg twice a day, insulin coverage, Lidoderm patch to affected area daily, Lovenox 40 mg daily, cefepime 1 g q. 8 hours, MiraLax 17 g daily, morphine 3 mg q. 3 hours p.r.n., Nicoderm patch daily, nasal saline 2 sprays q. 4 hours p.r.n., Pepcid 40 mg daily, Protonix 40 mg daily, cholestyramine 4 g p.o. daily, Singulair 10 mg daily, Tamiflu 75 mg twice a day, Tylenol p.r.n., vitamin A and D to affected areas, Xanax 1 mg p.o. daily, Zofran on p.r.n. basis. LABORATORY DATA: Shows hemoglobin of 11.4, hematocrit 35.0, WBC 4.9, platelets is 133. Sodium 133, potassium 4.1, chloride 99, bicarbonate 24, BUN is 18, creatinine is 0.4, glucose is 171, calcium is 9.2. AST 71, ALT 92, alk phos is 135, albumin is 3.4. Microbiology: Blood culture has been negative. 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 Continue bronchodilator, keep head at 45 degrees, Tamiflu, gastric prophylaxis, SCDs to lower extremities, fall precaution. Thank you and we will follow with you. Robert Eastman MD
[2017-05-31] MEDS: Albuterol-Ipratrop 3 mg / 0.5 (3 ml) UD IH SCH ×4 (02:07→21:04)
[2017-05-31] MEDS: Morphine 4 mg/ml ISec IVP PRN ×3 (03:49→20:17)
[2017-05-31] MEDS: Cefepime 1gm in NS 100ml 1 GM/100 ML BAG IVPB SCH ×3 (05:29→21:48)
[2017-05-31] MEDS: Pantoprazole 40 mg EC Tab PO SCH (05:29)
[2017-05-31 07:23] LABS: HEMOGLOBIN 11.7 g/dL (12.0-16.0); MEAN CELL VOLUME 87.5 fl (80.0-105.0); MEAN CORPUSCULAR HEMOGLOBIN 29.2 pg (25.0-35.0); MEAN CORPUSCULAR HGB CONC 33.3 g/dl (31.0-37.0); MEAN PLATELET VOLUME 9.9 fl (7.0-11.0); RBC 4.01 10^6/uL (3.5-6.1); RED CELL DISTRIBUTION WIDTH 13.8 % (11.5-14.5); WHITE BLOOD COUNT 5.5 10^3/ul (4.5-11.0)
[2017-05-31] MEDS: Insulin Reg-HIGH-Coverage SC SCH ×4 (07:46→21:47)
[2017-05-31 08:02] LABS: ALB/GLOB RATIO 1.2 (1.1-1.8); ALBUMIN 3.5 g/dL (3.0-4.8); ALT/SGPT 105 U/L (7-56); AST/SGOT 90 U/L (14-36); BLOOD UREA NITROGEN 17 mg/dL (7-21); CALCIUM 9.1 mg/dL (8.4-10.5); GFR AFRICAN-AMERICAN > 60; GFR NON-AFRICAN AMERICAN > 60
[2017-05-31] MEDS: PRISTIQUE PO SCH (12:57)
[2017-05-31] MEDS: Lidocaine 5% Patch TD SCH (12:57)
[2017-05-31] MEDS: Venlafaxine 37.5 mg ER Cap PO SCH (13:00)
--- NOTE | 2017-05-31 13:32 | CP.PCM.PN ---
Subjective - Date & Time of Evaluation Date of Evaluation: 05/31/17 Time of Evaluation: 13:26 - Subjective Subjective: Patient seen and examined at bedside. Patient had port placed earlier this morning. Patient states she is feeling better than previous day. Patient sitting up in her chair eating comfortably. She does admit to lower extremity weakness. Denies chest pain, shortness of breath, nausea, vomiting, diarrhea, fever, chills. Objective - Vital Signs/Intake and Output Vital Signs (last 24 hours): Temp Pulse Resp BP Pulse Ox 97.5 F L 77 20 188/87 H 95 05/31/17 06:00 05/31/17 06:00 05/31/17 06:00 05/31/17 06:00 05/31/17 06:00 - Medications Medications: Current Medications Acetaminophen (Tylenol 325mg Tab) 650 mg PO Q4H PRN PRN Reason: pain 4-10 Albuterol/Ipratropium (Duoneb 3 Mg/0.5 Mg (3 Ml) Ud) 3 ml IH [id number] [facility] Last Admin: 05/31/17 07:22 Dose: 3 ml Alprazolam (Xanax) 0.5 mg PO BID [facility] PRN Reason: Protocol Last Admin: 05/30/17 17:01 Dose: 0.5 mg Alprazolam (Xanax) 1 mg PO HS [facility] PRN Reason: Protocol Cholestyramine Resin (Questran) 4 gm PO DAILY [facility] PRN Reason: Protocol Last Admin: 05/30/17 09:38 Dose: 4 gm Dexamethasone (Decadron Inj) 4 mg IVP Q6 [facility] Last Admin: 05/31/17 12:54 Dose: 4 mg Docusate Sodium (Colace) 100 mg PO DAILY [facility] Last Admin: 05/31/17 12:52 Dose: 100 mg Doxycycline Hyclate (Doryx) 100 mg PO Q12 [facility] PRN Reason: Protocol Stop: 06/07/17 22:01 Last Admin: 05/31/17 12:54 Dose: 100 mg Enoxaparin Sodium (Lovenox) 40 mg SC DAILY [facility] PRN Reason: Protocol Last Admin: 05/30/17 09:39 Dose: 40 mg Famotidine (Pepcid) 40 mg PO HS [facility] Last Admin: 05/30/17 22:26 Dose: 40 mg Home Med (Home Med) 50 unit PO DAILY [facility] Last Admin: 05/31/17 12:57 Dose: Not Given Cefepime HCl (Maxipime 1gm) 1 gm in 100 mls @ 100 mls/hr IVPB Q8 [facility] PRN Reason: Protocol Stop: 06/07/17 22:01 Last Admin: 05/31/17 05:29 Dose: 100 mls/hr Insulin Human Regular (Humulin R High) 0 units SC ACHS [facility] PRN Reason: Protocol Last Admin: 05/31/17 13:00 Dose: Not Given Lidocaine (Lidoderm) 2 ea TD DAILY [facility] Last Admin: 05/31/17 12:57 Dose: 2 ea Loratadine (Claritin) 10 mg PO DAILY [facility] PRN Reason: Protocol Last Admin: 05/31/17 12:52 Dose: 10 mg Metformin HCl (Glucophage Xr) 500 mg PO 0800,1800 [facility] PRN Reason: Protocol Last Admin: 05/31/17 08:55 Dose: Not Given Montelukast Sodium (Singulair) 10 mg PO HS [facility] Last Admin: 05/30/17 22:20 Dose: 10 mg Morphine Sulfate (Morphine) 3 mg IVP Q3H PRN PRN Reason: Pain, severe (8-10) Last Admin: 05/31/17 03:49 Dose: 3 mg Nicotine (Nicoderm Cq) 1 patch TD DAILY [facility] Last Admin: 05/30/17 09:40 Dose: 1 patch Nicotine (Nicoderm Cq) 1 patch TD DAILY [facility] Last Admin: 05/31/17 12:57 Dose: 1 patch Non-Formulary Medication (Colesevelam Hcl [Welchol]) 625 mg PO QID [facility] Last Admin: 05/30/17 22:17 Dose: 625 mg Ondansetron HCl (Zofran Odt) 4 mg PO Q6 PRN PRN Reason: Nausea/Vomiting Oseltamivir Phosphate (Tamiflu Cap) 75 mg PO BID [facility] PRN Reason: Protocol Stop: 06/01/17 15:52 Last Admin: 05/30/17 17:08 Dose: 75 mg Oxycodone HCl (Oxycodone Immediate Release Tab) 5 mg PO Q6H PRN PRN Reason: break through pain Pantoprazole Sodium (Protonix Ec Tab) 40 mg PO 0600 [facility] Last Admin: 05/31/17 05:29 Dose: 40 mg Polyethylene Glycol (Miralax) 17 gm PO DAILY [facility] PRN Reason: Constipation Sodium Chloride ([place] Nasal [place]) 0 ml NS DAILY PRN; Protocol PRN Reason: NASAL CONGESTION Last Admin: 05/27/17 10:31 Dose: 1 applic Venlafaxine HCl (Effexor Xr) 75 mg PO DAILY [facility] Last Admin: 05/31/17 13:00 Dose: 75 mg Vitamin A (Vitamin A & D Oint Ud Foilpak) 1 ea TOP Q4H PRN; Protocol PRN Reason: Other Last Admin: 05/28/17 15:22 Dose: 1 ea Zolpidem Tartrate (Ambien) 5 mg PO HS PRN; Protocol PRN Reason: insomnia - Labs Labs: 05/31/17 06:00 05/31/17 06:40 - Constitutional Appears: Non-toxic, No Acute Distress - Head Exam Head Exam: ATRAUMATIC, NORMAL INSPECTION, NORMOCEPHALIC - ENT Exam ENT Exam: Mucous Membranes Moist, Normal Exam - Respiratory Exam Respiratory Exam: Clear to Ausculation Bilateral, NORMAL BREATHING PATTERN - Cardiovascular Exam Cardiovascular Exam: RRR, +S1, +S2 Additional comments: Port in place - GI/Abdominal Exam GI & Abdominal Exam: Soft, Normal Bowel Sounds. absent: Tenderness - Extremities Exam Extremities Exam: Normal Inspection. absent: Calf Tenderness, Pedal Edema - Neurological Exam Neurological Exam: Alert, Awake, Oriented x3 - Psychiatric Exam Psychiatric exam: Normal Affect, Normal Mood - Skin Skin Exam: Intact, Normal Color, Warm Assessment and Plan - Assessment and Plan (Free Text) Plan: 72 year old female with PMH of DM, HTN, and MDD presents to the TCU for deconditioning and chemotherapy for small cell cancer with mets to the bone and liver. Patient on last day of Tamiflu for influenza. Patient will have last radiation treatment tomorrow. Patient received her port placement in anticipation of having chemotherapy which will be done outpatient. Patient also had Cefepime and Doxycycline started as per ID. Will continue to follow closely. Plan discussed with Dr. Puente. Linda, PGY-2
[2017-05-31] MEDS: Cholestyramine 4 gm/Pkt UD PO SCH (15:15)
[2017-05-31] MEDS: Morphine 15 mg SR Tab PO SCH (21:48)
--- NOTE | 2017-05-31 22:01 | PN ---
DATE: SUBJECTIVE: Patient is currently seen lying comfortable supine in bed. She states she is completing her course of Tamiflu for influenza today. She continues to benefit from rehabilitation in the TCU. She is completing a course of IV antibiotic therapy. MEDICATIONS: Medication list reviewed. The patient is on p.r.n. Ambien, Claritin, Colace, Welchol, IV Decadron, doxycycline, DuoNeb, Effexor, Glucophage, insulin, Pristiq, Lidoderm patch, cefepime, MiraLax, morphine, Nicoderm, [place] nasal spray, oxycodone, Pepcid, Protonix, Questran, Singulair, Tamiflu, Tylenol p.r.n., vitamins, Xanax p.r.n. and Zofran p.r.n. OBJECTIVE: VITAL SIGNS: Blood pressure ranging from 151 to 188 systolic, diastolics ranging from 77 to 87. Temperature 97.5, pulse 77, respiratory rate of 20. HEENT: Exam shows her to be normocephalic, atraumatic. Conjunctivae are pink. Sclerae nonicteric. NECK: Supple. No neck vein distention. CHEST: Clear to auscultation and percussion with no rales, rhonchi or wheezing. CARDIOVASCULAR: Shows a normal S1, S2 without murmurs, rubs or gallops. ABDOMEN: Soft. Bowel sounds normal. No rebound, no guarding. No masses. EXTREMITIES: Show no cyanosis, clubbing or edema. Distal lower extremity pulses are 1 to 2+ bilaterally. LABORATORY DATA AND IMAGING: CBC, white blood cell count today 5.5, hemoglobin 11.7 with a platelet count of 129,000. Chemistry shows sodium slightly lower at 131. Potassium 4.0, chloride 97 with CO2 of 25, BUN 70 with a creatinine of 0.5. Glucose is 186. Mild elevation of her AST at 90, ALT 105, alkaline phosphatase mildly elevated at 139. Bilirubin is normal. Microbiology, urine cultures are positive for gram-positive cocci. Serologies positive for influenza A. ASSESSMENT: 1. Mild hyponatremia. Patient states that she has a dry mouth that she is drinking copious amounts of fluid. I have asked her to try sugar-free sucking candy instead of drinking large amounts of fluid. Sodium level has dropped slightly from 133 to 131. We will continue to monitor the trend over the next several days in the TCU. 2. 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 This likely explains of mild liver enzyme elevation. Patient will continue followup with Oncology for further chemotherapy. 3. Influenza A. Patient completing a course of Tamiflu therapy. 4. Possible urinary tract infection. Patient is completing a course of antibiotic therapy. 5. History of non-insulin dependent diabetes mellitus. Glucose control is acceptable. 6. Transient elevation of blood pressure. P.r.n. start low-dose calcium channel dameon therapy or angiotensin receptor dameon therapy if her blood pressure continues to trend higher. PLAN 1. Ask patient to voluntarily decrease her p.o. fluid intake. 2. Continue to monitor blood pressure and p.r.n. start low-dose calcium channel dameon therapy. 3. Complete the course of antibiotics and antiviral agents under the guidance of Infectious Disease. 4. Continue rehabilitation in the TCU. 5. Evaluation for further chemotherapy in the outpatient setting for her small cell carcinoma with mets to the liver and bone. Delta Riley MD
[2017-06-01] MEDS: Dexamethasone 4 mg/1 ml IVP SCH ×4 (00:31→22:35)
[2017-06-01] MEDS: Albuterol-Ipratrop 3 mg / 0.5 (3 ml) UD IH SCH ×3 (01:21→21:27)
--- NOTE | 2017-06-01 02:25 | PN ---
DATE: PULMONARY PROGRESS NOTE REFERRING PHYSICIAN: Yosef Reis MD SUBJECTIVE: The patient is lying in the bed, head at 45 degrees. Day was unremarkable. Still had some cough and stuffy nose. No nausea. No vomiting. No diarrhea. No leg pain or leg swelling. Status post right Port-a-Cath placement. OBJECTIVE: GENERAL: In no acute distress. VITAL SIGNS: Temperature is 98, heart rate is 70, respiratory rate is 20, blood pressure 132/62, pulse ox is 98% on nasal cannula. HEENT: Moist mucous membrane. Crowded airway. Mallampati score is 4. NECK: Supple. No JVD. LUNGS: Have few scattered rhonchi. The right chest has a Port-a-Cath. HEART: S1 and S2. ABDOMEN: Soft and nontender. No organomegaly. EXTREMITIES: No edema. NEUROLOGICAL: Awake and alert, follows simple commands. MEDICATIONS: She is on Ambien 5 mg at bedtime p.r.n., Claritin 10 mg daily, Colace 100 mg daily, WelChol 625 mg q.i.d., Decadron 4 mg q. 6 hours, doxycycline 100 mg twice a day, DuoNeb q. 6 hours, Effexor 75 mg daily, metformin 500 mg twice a day, insulin coverage, lidocaine to affected area, Lovenox 40 mg daily, cefepime 1 g IV q. 8 hours, MiraLax 17 g p.r.n., morphine 3 mg q. 3 hours p.r.n., also morphine extended release 15 mg q.12 hours, Nicoderm patch daily, nasal saline q. 6 hours p.r.n., oxycodone immediate release 5 mg q. 6 hours p.r.n., Pepcid 40 mg daily, Protonix 40 mg daily, cholestyramine 4 daily, Singulair 10 mg daily, Tamiflu 75 mg twice a day, vitamin A and D ointment to affected area, Xanax 0.5 mg twice a day, Zofran 4 mg q. 6 hours p.r.n. LABORATORY DATA: Shows hemoglobin 11.7, hematocrit 35.1, WBC 5.5, platelet count is 129. Sodium 131, potassium 4.0, chloride 97, bicarbonate 25, BUN 17, creatinine 0.5, glucose 186, calcium 9.1, AST 90, ALT 105, alkaline phosphatase is 139, albumin is 3.5. Urine culture has Gram-positive cocci. Blood culture has been negative. IMPRESSION AND PLAN: Metastatic small cell lung cancer involving the lungs, bones, liver; also metastatic disease to T10 to T11 vertebra involving spine requiring radiation therapy; has influenza A infection, has been on Tamiflu; acute bronchitis. Pulmonary point of view, doing okay. Continue bronchodilator, keep head at 45 degrees, antibiotics, Tamiflu, gastric prophylaxis, sequential compression device to lower extremities, status post Port-A-Cath. Probably another 2 days or so, she should be okay to get chemotherapy. Thank you and we will follow with you. Robert Eastman MD
[2017-06-01] MEDS: Morphine 4 mg/ml ISec IVP PRN ×3 (04:58→18:09)
[2017-06-01] MEDS: Cefepime 1gm in NS 100ml 1 GM/100 ML BAG IVPB SCH ×3 (05:00→22:36)
[2017-06-01] MEDS: Pantoprazole 40 mg EC Tab PO SCH (05:01)
[2017-06-01 07:10] LABS: HEMOGLOBIN 11.8 g/dL (12.0-16.0); MEAN CELL VOLUME 87.4 fl (80.0-105.0); MEAN CORPUSCULAR HEMOGLOBIN 29.2 pg (25.0-35.0); MEAN CORPUSCULAR HGB CONC 33.4 g/dl (31.0-37.0); MEAN PLATELET VOLUME 10.1 fl (7.0-11.0); RBC 4.04 10^6/uL (3.5-6.1); RED CELL DISTRIBUTION WIDTH 13.8 % (11.5-14.5); WHITE BLOOD COUNT 6.3 10^3/ul (4.5-11.0)
[2017-06-01] MEDS: Insulin Reg-HIGH-Coverage SC SCH ×4 (07:39→22:35)
[2017-06-01 08:00] LABS: ALB/GLOB RATIO 1.2 (1.1-1.8); ALBUMIN 3.4 g/dL (3.0-4.8); ALT/SGPT 122 U/L (7-56); AST/SGOT 87 U/L (14-36); BLOOD UREA NITROGEN 15 mg/dL (7-21); CALCIUM 8.9 mg/dL (8.4-10.5); GFR AFRICAN-AMERICAN > 60; GFR NON-AFRICAN AMERICAN > 60
[2017-06-01] MEDS: Cholestyramine 4 gm/Pkt UD PO SCH (09:52)
[2017-06-01] MEDS: Morphine 15 mg SR Tab PO SCH ×2 (09:52→22:36)
[2017-06-01] MEDS: Venlafaxine 37.5 mg ER Cap PO SCH (09:53)
[2017-06-01] MEDS: Lidocaine 5% Patch TD SCH (09:55)
--- NOTE | 2017-06-01 11:40 | CP.PCM.PN ---
Subjective - Date & Time of Evaluation Date of Evaluation: 06/01/17 Time of Evaluation: 11:36 - Subjective Subjective: Patient seen and examined at bedside. Patient states her shortness of breath is improved. Patient complains of severe pain in her back when she walks, otherwise her back pain is fine at rest. Denies chest pain, shortness of breath , nausea, vomiting, diarrhea, fever, chills. Objective - Vital Signs/Intake and Output Vital Signs (last 24 hours): Temp Pulse Resp BP Pulse Ox 97 F L 70 18 132/62 98 05/31/17 17:57 05/31/17 17:57 05/31/17 17:57 05/31/17 17:57 05/31/17 17:57 - Medications Medications: Current Medications Acetaminophen (Tylenol 325mg Tab) 650 mg PO Q4H PRN PRN Reason: pain 4-10 Albuterol/Ipratropium (Duoneb 3 Mg/0.5 Mg (3 Ml) Ud) 3 ml IH [id number] [facility] Last Admin: 06/01/17 07:33 Dose: 3 ml Alprazolam (Xanax) 0.5 mg PO BID [facility] PRN Reason: Protocol Last Admin: 06/01/17 09:52 Dose: 0.5 mg Alprazolam (Xanax) 1 mg PO HS [facility] PRN Reason: Protocol Last Admin: 05/31/17 21:50 Dose: 1 mg Cholestyramine Resin (Questran) 4 gm PO DAILY [facility] PRN Reason: Protocol Last Admin: 06/01/17 09:52 Dose: 4 gm Dexamethasone (Decadron Inj) 4 mg IVP Q6 [facility] Last Admin: 06/01/17 05:00 Dose: 4 mg Docusate Sodium (Colace) 100 mg PO DAILY [facility] Last Admin: 06/01/17 09:54 Dose: 100 mg Doxycycline Hyclate (Doryx) 100 mg PO Q12 [facility] PRN Reason: Protocol Stop: 06/07/17 22:01 Last Admin: 06/01/17 09:52 Dose: 100 mg Enoxaparin Sodium (Lovenox) 40 mg SC DAILY [facility] PRN Reason: Protocol Last Admin: 05/30/17 09:39 Dose: 40 mg Famotidine (Pepcid) 40 mg PO HS [facility] Last Admin: 05/31/17 21:50 Dose: 40 mg Home Med (Home Med) 50 unit PO DAILY [facility] Last Admin: 05/31/17 12:57 Dose: Not Given Cefepime HCl (Maxipime 1gm) 1 gm in 100 mls @ 100 mls/hr IVPB Q8 [facility] PRN Reason: Protocol Stop: 06/07/17 22:01 Last Admin: 06/01/17 05:00 Dose: 100 mls/hr Insulin Human Regular (Humulin R High) 0 units SC ACHS [facility] PRN Reason: Protocol Last Admin: 06/01/17 07:39 Dose: Not Given Lidocaine (Lidoderm) 2 ea TD DAILY [facility] Last Admin: 06/01/17 09:55 Dose: 2 ea Loratadine (Claritin) 10 mg PO DAILY [facility] PRN Reason: Protocol Last Admin: 06/01/17 09:54 Dose: 10 mg Metformin HCl (Glucophage Xr) 500 mg PO 0800,1800 [facility] PRN Reason: Protocol Last Admin: 06/01/17 09:54 Dose: 500 mg Montelukast Sodium (Singulair) 10 mg PO HS [facility] Last Admin: 05/31/17 21:50 Dose: 10 mg Morphine Sulfate (Morphine) 3 mg IVP Q3H [facility] PRN Reason: Pain, severe (8-10) Last Admin: 06/01/17 04:58 Dose: 3 mg Morphine Sulfate (Morphine Extended Release Tab) 15 mg PO Q12 [facility] PRN Reason: Protocol Last Admin: 06/01/17 09:52 Dose: 15 mg Nicotine (Nicoderm Cq) 1 patch TD DAILY [facility] Last Admin: 06/01/17 09:53 Dose: 1 patch Nicotine (Nicoderm Cq) 1 patch TD DAILY [facility] Last Admin: 06/01/17 09:53 Dose: 1 patch Non-Formulary Medication (Colesevelam Hcl [Welchol]) 625 mg PO QID [facility] Last Admin: 05/31/17 21:46 Dose: 625 mg Ondansetron HCl (Zofran Odt) 4 mg PO Q6 [facility] PRN Reason: Nausea/Vomiting Oseltamivir Phosphate (Tamiflu Cap) 75 mg PO BID [facility] PRN Reason: Protocol Stop: 06/01/17 15:52 Last Admin: 06/01/17 09:52 Dose: 75 mg Oxycodone HCl (Oxycodone Immediate Release Tab) 5 mg PO Q6H PRN PRN Reason: break through pain Pantoprazole Sodium (Protonix Ec Tab) 40 mg PO 0600 [facility] Last Admin: 06/01/17 05:01 Dose: 40 mg Polyethylene Glycol (Miralax) 17 gm PO DAILY PRN PRN Reason: Constipation Sodium Chloride ([place] Nasal [place]) 0 ml NS DAILY PRN; Protocol PRN Reason: NASAL CONGESTION Last Admin: 05/27/17 10:31 Dose: 1 applic Venlafaxine HCl (Effexor Xr) 75 mg PO DAILY [facility] Last Admin: 06/01/17 09:53 Dose: 75 mg Vitamin A (Vitamin A & D Oint Ud Foilpak) 1 ea TOP Q4H PRN; Protocol PRN Reason: Other Last Admin: 05/28/17 15:22 Dose: 1 ea Zolpidem Tartrate (Ambien) 5 mg PO HS PRN; Protocol PRN Reason: insomnia - Labs Labs: 06/01/17 06:50 06/01/17 06:50 - Constitutional Appears: Non-toxic, No Acute Distress - Head Exam Head Exam: ATRAUMATIC, NORMAL INSPECTION, NORMOCEPHALIC - ENT Exam ENT Exam: Mucous Membranes Moist - Respiratory Exam Respiratory Exam: Clear to Ausculation Bilateral, NORMAL BREATHING PATTERN - Cardiovascular Exam Cardiovascular Exam: RRR, +S1, +S2 - GI/Abdominal Exam GI & Abdominal Exam: Soft, Normal Bowel Sounds. absent: Tenderness - Back Exam Back Exam: absent: paraspinal tenderness, vertebral tenderness - Neurological Exam Neurological Exam: Alert, Awake, Oriented x3 - Psychiatric Exam Psychiatric exam: Normal Affect, Normal Mood - Skin Skin Exam: Intact, Normal Color, Warm Assessment and Plan - Assessment and Plan (Free Text) Plan: 72 year old female with PMH of DM, HTN, and MDD presents to the TCU for deconditioning and chemotherapy for small cell cancer with mets to the bone and liver. Patient has finished her course of Tamiflu. Patient also found to have VRE in her urine, will await ID recs for antibiotics. Patient with last radiation treatment today, but she remains in intense pain when ambulation. Back brace will be ordered for patient. She will receive Aredia today. Will taper Decadron. Patient will have chemotherapy upon discharge. Will continue to follow closely. Plan discussed with Dr. Puente. Linda, PGY-2
[2017-06-01] MEDS: Enoxaparin 40 mg Syringe SC SCH (12:19)
--- NOTE | 2017-06-01 14:07 | CP.PCM.PN ---
Subjective - Date & Time of Evaluation Date of Evaluation: 05/31/17 Time of Evaluation: 11:05 - Subjective Subjective: Comfortable in bed, no fevers, feeling a little better. Objective - Vital Signs/Intake and Output Vital Signs (last 24 hours): Temp Pulse Resp BP Pulse Ox 97.5 F L 77 20 188/87 H 95 05/31/17 06:00 05/31/17 06:00 05/31/17 06:00 05/31/17 06:00 05/31/17 06:00 - Medications Medications: Current Medications Acetaminophen (Tylenol 325mg Tab) 650 mg PO Q4H PRN PRN Reason: pain 4-10 Albuterol/Ipratropium (Duoneb 3 Mg/0.5 Mg (3 Ml) Ud) 3 ml IH [id number] [facility] Last Admin: 05/31/17 07:22 Dose: 3 ml Alprazolam (Xanax) 0.5 mg PO BID [facility] PRN Reason: Protocol Last Admin: 05/30/17 17:01 Dose: 0.5 mg Alprazolam (Xanax) 1 mg PO HS [facility] PRN Reason: Protocol Cholestyramine Resin (Questran) 4 gm PO DAILY [facility] PRN Reason: Protocol Last Admin: 05/30/17 09:38 Dose: 4 gm Dexamethasone (Decadron Inj) 4 mg IVP Q6 [facility] Last Admin: 05/31/17 05:29 Dose: 4 mg Docusate Sodium (Colace) 100 mg PO DAILY [facility] Last Admin: 05/30/17 09:36 Dose: 100 mg Doxycycline Hyclate (Doryx) 100 mg PO Q12 [facility] PRN Reason: Protocol Stop: 06/07/17 22:01 Last Admin: 05/30/17 22:19 Dose: 100 mg Enoxaparin Sodium (Lovenox) 40 mg SC DAILY [facility] PRN Reason: Protocol Last Admin: 05/30/17 09:39 Dose: 40 mg Famotidine (Pepcid) 40 mg PO HS [facility] Last Admin: 05/30/17 22:26 Dose: 40 mg Home Med (Home Med) 50 unit PO DAILY [facility] Last Admin: 05/30/17 12:35 Dose: Not Given Cefepime HCl (Maxipime 1gm) 1 gm in 100 mls @ 100 mls/hr IVPB Q8 [facility] PRN Reason: Protocol Stop: 06/07/17 22:01 Last Admin: 05/31/17 05:29 Dose: 100 mls/hr Insulin Human Regular (Humulin R High) 0 units SC ACHS [facility] PRN Reason: Protocol Last Admin: 05/31/17 07:46 Dose: 2 units Lidocaine (Lidoderm) 2 ea TD DAILY [facility] Last Admin: 05/30/17 09:39 Dose: 2 ea Loratadine (Claritin) 10 mg PO DAILY [facility] PRN Reason: Protocol Last Admin: 05/30/17 09:36 Dose: 10 mg Metformin HCl (Glucophage Xr) 500 mg PO 0800,1800 [facility] PRN Reason: Protocol Last Admin: 05/30/17 17:08 Dose: 500 mg Montelukast Sodium (Singulair) 10 mg PO HS [facility] Last Admin: 05/30/17 22:20 Dose: 10 mg Morphine Sulfate (Morphine) 3 mg IVP Q3H PRN PRN Reason: Pain, severe (8-10) Last Admin: 05/31/17 03:49 Dose: 3 mg Nicotine (Nicoderm Cq) 1 patch TD DAILY [facility] Last Admin: 05/30/17 09:40 Dose: 1 patch Nicotine (Nicoderm Cq) 1 patch TD DAILY [facility] Last Admin: 05/30/17 09:40 Dose: 1 patch Non-Formulary Medication (Colesevelam Hcl [Welchol]) 625 mg PO QID [facility] Last Admin: 05/30/17 22:17 Dose: 625 mg Ondansetron HCl (Zofran Odt) 4 mg PO Q6 [facility]N PRN Reason: Nausea/Vomiting Oseltamivir Phosphate (Tamiflu Cap) 75 mg PO BID [facility] PRN Reason: Protocol Stop: 06/01/17 15:52 Last Admin: 05/30/17 17:08 Dose: 75 mg Oxycodone HCl (Oxycodone Immediate Release Tab) 5 mg PO Q6H PRN PRN Reason: break through pain Pantoprazole Sodium (Protonix Ec Tab) 40 mg PO 0600 [facility] Last Admin: 05/31/17 05:29 Dose: 40 mg Polyethylene Glycol (Miralax) 17 gm PO DAILY PRN PRN Reason: Constipation Sodium Chloride ([place] Nasal [place]) 0 ml NS DAILY PRN; Protocol PRN Reason: NASAL CONGESTION Last Admin: 05/27/17 10:31 Dose: 1 applic Venlafaxine HCl (Effexor Xr) 75 mg PO DAILY [facility] Last Admin: 05/30/17 09:37 Dose: 75 mg Vitamin A (Vitamin A & D Oint Ud Foilpak) 1 ea TOP Q4H PRN; Protocol PRN Reason: Other Last Admin: 05/28/17 15:22 Dose: 1 ea Zolpidem Tartrate (Ambien) 5 mg PO HS PRN; Protocol PRN Reason: insomnia - Labs Labs: 05/31/17 06:00 05/31/17 06:40 - Constitutional Appears: Non-toxic - Head Exam Head Exam: NORMAL INSPECTION - Neck Exam Neck Exam: absent: Meningismus - Respiratory Exam Respiratory Exam: Decreased Breath Sounds - Cardiovascular Exam Cardiovascular Exam: +S1, +S2 - GI/Abdominal Exam GI & Abdominal Exam: Soft. absent: Tenderness Assessment and Plan - Assessment and Plan (Free Text) Plan: Assessment Systemic viral illness with Influenza and acute bronchitis VRE in the urine, asymptomatic DM HTN depression lower back tumor obesity with BMI 30 Plan continue Doxycycline and Cefepime day 3 and continue Tamiflu (day 5 of 5 days) will repeat urine cx will monitor clinically
[2017-06-01] MEDS ORDERED: Sodium Chloride 0.9% 1,000 ML IV SCH (14:15)
--- NOTE | 2017-06-01 17:47 | PN ---
DATE: 06/01/2017 SUBJECTIVE: The patient is seen lying in bed in the Transitional Care Unit. She is awake. She complains of some cough. She complains of some shortness of breath. PHYSICAL EXAMINATION: GENERAL: Elderly lady, sitting in bed. VITAL SIGNS: Blood pressure 132/62, heart rate 70, respiratory rate 18, temperature 97. HEENT: Normocephalic, atraumatic. NECK: Supple, no JVD. LUNGS: Bilateral equal air entry, bilateral rhonchi, crackles right side. CARDIAC: S1 and S2, regular rate and rhythm, no murmur, no rub. ABDOMEN: Obese, distended, soft, nontender, bowel sounds present. EXTREMITIES: No lower extremity edema. INTAKE AND OUTPUT: Not charted. LABORATORY DATA: WBC 6, hemoglobin 11.8, hematocrit 35, platelets 129. Sodium 128, potassium 3.9, chloride 95, CO2 of 26, BUN 15, creatinine 0.4, glucose 166, calcium 8.9, AST 87, ALT 122. CURRENT MEDICATIONS: Ambien, Claritin, Colace, Decadron, doxycycline 100 q. 12, DuoNeb, Effexor, Glucophage, Lidoderm, Lovenox, MiraLax, morphine, Pepcid, Protonix, Singulair, Tylenol, Xanax, Zofran. ASSESSMENT: 1. Hyponatremia, worsening. 2. Metastatic small cell cancer of the lung involving the lung, bones. 3. Influenza A infection. 4. [id number] diabetes mellitus. 5. Hypertension. PLAN: 1. Check urine sodium. 2. Check urine osmolality. 3. Check serum uric acid. 4. Restrict p.o. fluids. 5. Normal saline 1 L. Dana Hawkins MD
[2017-06-02] MEDS: Albuterol-Ipratrop 3 mg / 0.5 (3 ml) UD IH SCH ×4 (01:12→21:25)
[2017-06-02] MEDS: Cefepime 1gm in NS 100ml 1 GM/100 ML BAG IVPB SCH ×3 (05:25→22:04)
[2017-06-02] MEDS: Dexamethasone 4 mg/1 ml IVP SCH ×3 (05:25→22:02)
[2017-06-02] MEDS: Morphine 4 mg/ml ISec IVP PRN ×3 (05:26→18:07)
[2017-06-02] MEDS: Pantoprazole 40 mg EC Tab PO SCH (05:27)
[2017-06-02] MEDS: Insulin Reg-HIGH-Coverage SC SCH ×4 (06:49→22:03)
[2017-06-02 07:16] LABS: ALB/GLOB RATIO 1.3 (1.1-1.8); ALBUMIN 3.5 g/dL (3.0-4.8); ALT/SGPT 142 U/L (7-56); AST/SGOT 98 U/L (14-36); BLOOD UREA NITROGEN 16 mg/dL (7-21); CALCIUM 8.8 mg/dL (8.4-10.5); GFR AFRICAN-AMERICAN > 60; GFR NON-AFRICAN AMERICAN > 60
[2017-06-02 08:08] LABS: HEMOGLOBIN 12.1 g/dL (12.0-16.0); MEAN CELL VOLUME 87.5 fl (80.0-105.0); MEAN CORPUSCULAR HEMOGLOBIN 29.2 pg (25.0-35.0); MEAN CORPUSCULAR HGB CONC 33.3 g/dl (31.0-37.0); MEAN PLATELET VOLUME 9.7 fl (7.0-11.0); RBC 4.15 10^6/uL (3.5-6.1); RED CELL DISTRIBUTION WIDTH 13.7 % (11.5-14.5); WHITE BLOOD COUNT 6.3 10^3/ul (4.5-11.0)
--- NOTE | 2017-06-02 08:35 | PN ---
DATE: 06/01/2017 PULMONARY PROGRESS NOTE REFERRING PHYSICIAN: Yosef Reis MD. SUBJECTIVE: She is sitting on side of the bed. Night was unremarkable. Feels better today. No headache. Has rhinitis, postnasal drip. Mild cough and some discomfort in the Yicy-P-Odwlfehg site. No chest pain. No nausea. No vomiting. No diarrhea, leg pain, leg swelling. OBJECTIVE: GENERAL: In no acute distress. VITAL SIGNS: Temp is 98, heart rate is 70, respiratory rate is 18, blood pressure 132/62, pulse ox 98% on room air. HEENT: Moist mucous membranes. Small oral cavity. Crowded airway. NECK: Supple. No JVD. LUNGS: Have a fair airflow. Right chest has a [id number]. HEART: S1 and S2. ABDOMEN: Soft, nontender. No organomegaly. EXTREMITIES: No edema. NEUROLOGICAL: Awake and alert. Follows simple command. LABORATORY DATA: Shows hemoglobin 11.8, hematocrit 35.3, WBC 6.3, platelet is 129. Sodium 128, potassium 3.9, chloride 95, bicarbonate 25, BUN 15, creatinine 0.5, glucose 143, calcium is 8.9, AST 87, ALT 122, alk phos is 146, albumin is 6.3. Urine has Enterococcus faecium. MEDICATIONS: She is on Ambien 5 mg at bedtime p.r.n., Claritin 10 mg daily, Colace 100 mg daily, Welchol 625 mg q.i.d., Decadron 4 mg q.i.d., doxycycline 100 mg twice a day, DuoNeb q. 6 hours, Effexor 75 mg daily, metformin 500 mg twice a day, Lidoderm patch to the affected area, Lovenox 40 mg daily, cefepime 1 g daily, MiraLax 17 g daily, morphine 3 mg q. 3 hours p.r.n., morphine extended release 50 mg q. 12 hours, Nicoderm patch daily, nasal saline 2 sprays to each nostril q. 6 hours p.r.n., oxycodone immediate release 5 mg q. 6 hours p.r.n., Pepcid 40 mg at bedtime, Protonix 40 mg daily, Questran 4 g daily, Singulair 10 mg daily, Tamiflu 75 mg twice a day, Tylenol p.r.n., vitamin A and D ointment to affected area q. 4 hours p.r.n., Xanax 0.5 mg twice a day and also Xanax 1 mg at bedtime, Zofran on p.r.n. basis. IMPRESSION AND PLAN: Metastatic small-cell lung cancer involving the lungs, bones, liver. Metastasis to the T10 to T11 vertebra. Presently has influenza, being treated. Pulmonary point of view, doing okay. Continue bronchodilator. Supplement oxygen as needed. Status post [id number]. Getting radiation therapy. Fall precaution. Taper dose of steroids. Pain management. Will be set up for chemotherapy when cleared by Infectious Diseases. Thank you and we will follow with you. Robert Eastman MD
[2017-06-02] MEDS: PRISTIQUE PO SCH (09:10)
[2017-06-02] MEDS: Venlafaxine 37.5 mg ER Cap PO SCH (09:10)
[2017-06-02] MEDS: Lidocaine 5% Patch TD SCH (09:10)
[2017-06-02] MEDS: Enoxaparin 40 mg Syringe SC SCH (09:11)
[2017-06-02] MEDS: Cholestyramine 4 gm/Pkt UD PO SCH (09:11)
[2017-06-02] MEDS: Morphine 15 mg SR Tab PO SCH ×2 (09:14→22:04)
--- NOTE | 2017-06-02 09:58 | CP.PCM.PN ---
Subjective - Date & Time of Evaluation Date of Evaluation: 06/02/17 Time of Evaluation: 09:54 - Subjective Subjective: Patient seen and examined at bedside. Patient states she has more energy than previous day. Back pain remains severe when she walks. Denies chest pain, shortness of breath, nausea, vomiting, diarrhea, fever, chills. Objective - Vital Signs/Intake and Output Vital Signs (last 24 hours): Temp Pulse Resp BP Pulse Ox 97.3 F L 89 20 192/88 H 95 06/01/17 17:38 06/01/17 17:38 06/01/17 17:38 06/01/17 17:38 06/01/17 17:38 - Medications Medications: Current Medications Acetaminophen (Tylenol 325mg Tab) 650 mg PO Q4H PRN PRN Reason: pain 4-10 Albuterol/Ipratropium (Duoneb 3 Mg/0.5 Mg (3 Ml) Ud) 3 ml IH [id number] [facility] Last Admin: 06/02/17 08:42 Dose: 3 ml Alprazolam (Xanax) 0.5 mg PO BID [facility] PRN Reason: Protocol Last Admin: 06/02/17 09:14 Dose: 0.5 mg Alprazolam (Xanax) 1 mg PO HS [facility] PRN Reason: Protocol Last Admin: 06/01/17 22:38 Dose: 1 mg Cholestyramine Resin (Questran) 4 gm PO DAILY [facility] PRN Reason: Protocol Last Admin: 06/02/17 09:11 Dose: 4 gm Dexamethasone (Decadron Inj) 4 mg IVP Q12 [facility] Docusate Sodium (Colace) 100 mg PO DAILY [facility] Last Admin: 06/02/17 09:08 Dose: 100 mg Doxycycline Hyclate (Doryx) 100 mg PO Q12 [facility] PRN Reason: Protocol Stop: 06/07/17 22:01 Last Admin: 06/02/17 09:09 Dose: 100 mg Enoxaparin Sodium (Lovenox) 40 mg SC DAILY [facility] PRN Reason: Protocol Last Admin: 06/02/17 09:11 Dose: 40 mg Famotidine (Pepcid) 40 mg PO HS [facility] Last Admin: 06/01/17 22:37 Dose: 40 mg Home Med (Home Med) 50 unit PO DAILY [facility] Last Admin: 06/02/17 09:10 Dose: Not Given Cefepime HCl (Maxipime 1gm) 1 gm in 100 mls @ 100 mls/hr IVPB Q8 [facility] PRN Reason: Protocol Stop: 06/07/17 22:01 Last Admin: 06/02/17 05:25 Dose: 100 mls/hr Insulin Human Regular (Humulin R High) 0 units SC ACHS [facility] PRN Reason: Protocol Last Admin: 06/02/17 06:49 Dose: Not Given Lidocaine (Lidoderm) 2 ea TD DAILY [facility] Last Admin: 06/02/17 09:10 Dose: 2 ea Loratadine (Claritin) 10 mg PO DAILY [facility] PRN Reason: Protocol Last Admin: 06/02/17 09:08 Dose: 10 mg Metformin HCl (Glucophage Xr) 500 mg PO 0800,1800 [facility] PRN Reason: Protocol Last Admin: 06/02/17 09:10 Dose: 500 mg Montelukast Sodium (Singulair) 10 mg PO HS [facility] Last Admin: 06/01/17 22:37 Dose: 10 mg Morphine Sulfate (Morphine) 3 mg IVP Q3H PRN PRN Reason: Pain, severe (8-10) Last Admin: 06/02/17 05:26 Dose: 3 mg Morphine Sulfate (Morphine Extended Release Tab) 15 mg PO Q12 [facility] PRN Reason: Protocol Last Admin: 06/02/17 09:14 Dose: Not Given Nicotine (Nicoderm Cq) 1 patch TD DAILY [facility] Last Admin: 06/02/17 09:11 Dose: 1 patch Nicotine (Nicoderm Cq) 1 patch TD DAILY [facility] Last Admin: 06/02/17 09:12 Dose: 1 patch Non-Formulary Medication (Colesevelam Hcl [Welchol]) 625 mg PO QID [facility] Last Admin: 06/02/17 09:09 Dose: Not Given Ondansetron HCl (Zofran Odt) 4 mg PO Q6 PRN PRN Reason: Nausea/Vomiting Oxycodone HCl (Oxycodone Immediate Release Tab) 5 mg PO Q6H PRN PRN Reason: break through pain Pantoprazole Sodium (Protonix Ec Tab) 40 mg PO 0600 [facility] Last Admin: 06/02/17 05:27 Dose: 40 mg Polyethylene Glycol (Miralax) 17 gm PO DAILY PRN PRN Reason: Constipation Sodium Chloride ([place] Nasal [place]) 0 ml NS DAILY PRN; Protocol PRN Reason: NASAL CONGESTION Last Admin: 05/27/17 10:31 Dose: 1 applic Venlafaxine HCl (Effexor Xr) 75 mg PO DAILY [facility] Last Admin: 06/02/17 09:10 Dose: 75 mg Vitamin A (Vitamin A & D Oint Ud Foilpak) 1 ea TOP Q4H PRN; Protocol PRN Reason: Other Last Admin: 05/28/17 15:22 Dose: 1 ea Zolpidem Tartrate (Ambien) 5 mg PO HS PRN; Protocol PRN Reason: insomnia - Labs Labs: 06/02/17 07:00 06/02/17 06:15 - Constitutional Appears: Non-toxic, No Acute Distress - Head Exam Head Exam: ATRAUMATIC, NORMAL INSPECTION, NORMOCEPHALIC - ENT Exam ENT Exam: Mucous Membranes Moist - Respiratory Exam Respiratory Exam: Clear to Ausculation Bilateral, NORMAL BREATHING PATTERN - Cardiovascular Exam Cardiovascular Exam: RRR, +S1, +S2 - GI/Abdominal Exam GI & Abdominal Exam: Soft, Normal Bowel Sounds. 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 Patient has finished her course of Tamiflu. Patient also found to have VRE in her urine and will have urine recultured. Back brace was ordered for patient to assist with walking, as she lives by herself at home. Patient also is finished with her radiation treatments at this time and will receive Chemotherapy once she is discharged. We will also continue to taper her Decadron. Will continue to follow closely. Plan discussed with Dr. Puente. Linda, PGY-2
--- NOTE | 2017-06-02 20:01 | CP.PCM.PN ---
Subjective - Date & Time of Evaluation Date of Evaluation: 06/02/17 Time of Evaluation: 11:00 - Subjective Subjective: Comfortable, no fevers. Objective - Vital Signs/Intake and Output Vital Signs (last 24 hours): Temp Pulse Resp BP Pulse Ox 97.2 F L 90 18 148/68 96 06/02/17 16:29 06/02/17 16:29 06/02/17 16:29 06/02/17 16:29 06/02/17 16:29 - Medications Medications: Current Medications Acetaminophen (Tylenol 325mg Tab) 650 mg PO Q4H PRN PRN Reason: pain 4-10 Albuterol/Ipratropium (Duoneb 3 Mg/0.5 Mg (3 Ml) Ud) 3 ml IH [id number] [facility] [place] Last Admin: 06/02/17 14:02 Dose: 3 ml Alprazolam (Xanax) 0.5 mg PO BID [facility] PRN Reason: Protocol Last Admin: 06/02/17 17:46 Dose: 0.5 mg Alprazolam (Xanax) 1 mg PO HS [facility] [place] PRN Reason: Protocol Last Admin: 06/01/17 22:38 Dose: 1 mg Cholestyramine Resin (Questran) 4 gm PO DAILY [facility] PRN Reason: Protocol Last Admin: 06/02/17 09:11 Dose: 4 gm Dexamethasone (Decadron Inj) 4 mg IVP Q12 [facility] [place] Last Admin: 06/02/17 12:31 Dose: 4 mg Docusate Sodium (Colace) 100 mg PO DAILY [facility] [place] Last Admin: 06/02/17 09:08 Dose: 100 mg Doxycycline Hyclate (Doryx) 100 mg PO Q12 [facility] [place] PRN Reason: Protocol Stop: 06/07/17 22:01 Last Admin: 06/02/17 09:09 Dose: 100 mg Enoxaparin Sodium (Lovenox) 40 mg SC DAILY [facility] [place] PRN Reason: Protocol Last Admin: 06/02/17 09:11 Dose: 40 mg Famotidine (Pepcid) 40 mg PO HS [facility] [place] Last Admin: 06/01/17 22:37 Dose: 40 mg Home Med (Home Med) 50 unit PO DAILY [facility] [place] Last Admin: 06/02/17 09:10 Dose: Not Given Cefepime HCl (Maxipime 1gm) 1 gm in 100 mls @ 100 mls/hr IVPB 0600,1400,2200 [facility] [place] PRN Reason: Protocol Stop: 06/11/17 14:01 Last Admin: 06/02/17 13:43 Dose: 100 mls/hr Insulin Human Regular (Humulin R High) 0 units SC ACHS [facility] [place] PRN Reason: Protocol Last Admin: 06/02/17 17:44 Dose: 2 units Lidocaine (Lidoderm) 2 ea TD DAILY [facility] [place] Last Admin: 06/02/17 09:10 Dose: 2 ea Loratadine (Claritin) 10 mg PO DAILY [facility] [place] PRN Reason: Protocol Last Admin: 06/02/17 09:08 Dose: 10 mg Metformin HCl (Glucophage Xr) 500 mg PO 0800,1800 [facility] [place] PRN Reason: Protocol Last Admin: 06/02/17 17:43 Dose: 500 mg Montelukast Sodium (Singulair) 10 mg PO HS [facility] [place] Last Admin: 06/01/17 22:37 Dose: 10 mg Morphine Sulfate (Morphine) 3 mg IVP Q3H PRN PRN Reason: Pain, severe (8-10) Last Admin: 06/02/17 18:07 Dose: 3 mg Morphine Sulfate (Morphine Extended Release Tab) 15 mg PO Q12 [facility] [place] PRN Reason: Protocol Last Admin: 06/02/17 09:14 Dose: Not Given Nicotine (Nicoderm Cq) 1 patch TD DAILY [facility] [place] Last Admin: 06/02/17 09:11 Dose: 1 patch Nicotine (Nicoderm Cq) 1 patch TD DAILY [facility] [place] Last Admin: 06/02/17 09:12 Dose: 1 patch Non-Formulary Medication (Colesevelam Hcl [Welchol]) 625 mg PO QID [facility] [place] Last Admin: 06/02/17 17:43 Dose: Not Given Ondansetron HCl (Zofran Odt) 4 mg PO Q6 PRN PRN Reason: Nausea/Vomiting Oxycodone HCl (Oxycodone Immediate Release Tab) 5 mg PO Q6H PRN PRN Reason: break through pain Last Admin: 06/02/17 16:31 Dose: 5 mg Pantoprazole Sodium (Protonix Ec Tab) 40 mg PO 0600 [facility] [place] Last Admin: 06/02/17 05:27 Dose: 40 mg Polyethylene Glycol (Miralax) 17 gm PO DAILY PRN PRN Reason: Constipation Sodium Chloride ([place] Nasal [place]) 0 ml NS DAILY PRN; Protocol PRN Reason: NASAL CONGESTION Last Admin: 05/27/17 10:31 Dose: 1 applic Venlafaxine HCl (Effexor Xr) 75 mg PO DAILY [facility] Last Admin: 06/02/17 09:10 Dose: 75 mg Vitamin A (Vitamin A & D Oint Ud Foilpak) 1 ea TOP Q4H PRN; Protocol PRN Reason: Other Last Admin: 05/28/17 15:22 Dose: 1 ea Zolpidem Tartrate (Ambien) 5 mg PO HS PRN; Protocol PRN Reason: insomnia - Labs Labs: 06/02/17 07:00 06/02/17 06:15 - Constitutional Appears: Chronically Ill - Head Exam Head Exam: NORMAL INSPECTION - Neck Exam Neck Exam: absent: Meningismus - Respiratory Exam Respiratory Exam: Decreased Breath Sounds - Cardiovascular Exam Cardiovascular Exam: +S1, +S2 - GI/Abdominal Exam GI & Abdominal Exam: Soft. absent: Tenderness Assessment and Plan - Assessment and Plan (Free Text) Plan: Assessment Systemic viral illness with Influenza and acute bronchitis VRE in the urine, asymptomatic DM HTN depression lower back tumor obesity with BMI 30 Plan continue Doxycycline and Cefepime day 4 and will d/c by tomorrow and we have complete course of Tamiflu will repeat urine cx will monitor clinically
--- NOTE | 2017-06-03 00:16 | PN ---
DATE: 06/02/2017 PULMONARY PROGRESS NOTE REFERRING PHYSICIAN: Yosef Reis MD. SUBJECTIVE: The patient is lying in the bed, head at 45 degrees. Family and friend at bedside. Night was unremarkable. Still has some cough and clear sputum. No nausea. No vomiting. No diarrhea, leg pain, or leg swelling. OBJECTIVE: GENERAL: In no acute distress. VITAL SIGNS: Temperature is 98, heart rate is 90, respiratory rate is 20, blood pressure 148/68, pulse ox 96% on room air. HEENT: Moist mucous membranes. Crowded airway. NECK: Supple. No JVD. LUNGS: Have a fair airflow with a few rhonchi. HEART: S1 and S2. ABDOMEN: Soft, nontender. No organomegaly. EXTREMITIES: No edema. NEUROLOGICAL: Awake and alert. Follows simple command. MEDICATIONS: She is on Ambien 5 mg at bedtime p.r.n., Claritin 10 mg daily, Colace 100 mg daily, Welchol 625 mg four times a day, Decadron 4 mg q.12h., doxycycline 100 mg twice a day, DuoNeb q.6h., Effexor XR 75 mg daily, Glucophage XR 500 mg twice a day, insulin coverage, Lidoderm patch to the affected area, Lovenox 40 mg daily, cefepime 1 g IV three times a day, MiraLax 17 g daily, morphine 3 mg q.3h. p.r.n., morphine sulfate extended release 50 mg q.12h., Nicoderm patch daily, nasal saline 2 sprays to each nostril p.r.n. basis, oxycodone immediate release 5 mg q.6h. p.r.n., Pepcid 40 mg daily, Protonix 40 mg daily, Singulair 10 mg daily, cholestyramine 4 g daily, Tylenol p.r.n. basis, vitamin A and D ointment to affected area, Xanax 0.5 mg twice a day, and Zofran 4 mg q.6h. LABORATORY DATA: Shows hemoglobin 12.1, hematocrit 36.3, WBC 6.3, platelet is 133. Sodium 130, potassium 3.9, chloride 95, bicarbonate 25, BUN 16, creatinine 0.4, glucose 176, calcium 8.8. AST 98, ALT 142, alkaline phosphate is 151, albumin is 3.5. Urine culture, Enterococcus faecium, sensitive to tigecycline and linezolid. IMPRESSION AND PLAN: Metastatic small-cell cancer involving the lungs, bones, liver, also involving T10 to T11 vertebra with cord compression, having radiation therapy, resolving influenza A infection, has a urinary tract infection, acute bronchitis. Pulmonary point of view, she is doing well. Continue bronchodilator. Keep head at 45 degrees. She finished off her Tamiflu. Presently, on cefepime, may need to change the antibiotic, will leave this for Infectious Diseases to make a decision. [id number] looks okay. Fall precautions. Continue therapy. Thank you and we will follow with you. Robert Eastman MD
--- NOTE | 2017-06-03 01:25 | PN ---
DATE: 06/02/2017 SUBJECTIVE: The patient is seen sitting in chair. She is awake, she is alert, she is comfortable. She reports feeling much better today. PHYSICAL EXAMINATION: GENERAL: Obese elderly lady sitting in chair. VITAL SIGNS: Blood pressure 148/68, heart rate 90, respiratory rate 18, temperature 97.2. HEENT: Normocephalic, atraumatic. NECK: Supple, no JVD. LUNGS: Bilateral equal entry, no rales. CARDIAC: S1 and S2, regular rate and rhythm, no murmur, no rub. ABDOMEN: Obese, distended, soft, nontender, bowel sounds present. EXTREMITIES: No lower extremity edema. INTAKE AND OUTPUT: Not charted. LABORATORY DATA: WBC 6, hemoglobin 12, hematocrit 36, platelets 133. Sodium 130, potassium 3.9, chloride 98, CO2 of 25, BUN 16, creatinine 0.4, glucose 176, calcium 8.8, total bili 0.8, AST 98, ALT 142, albumin 3.5. ASSESSMENT: 1. Hyponatremia, mild 2. Small cell lung cancer with metastasis. 3. Influenza A. 4. Cyy-nlgjnpy-drtabcjtd diabetes mellitus. 5. Hypertension. PLAN: 1. Continue to monitor sodium. 2. Restrict p.o. free fluids. 3. Continue physical therapy. 4. Continue respiratory treatments/antivirals. Dana Hawkins MD
[2017-06-03] MEDS: Albuterol-Ipratrop 3 mg / 0.5 (3 ml) UD IH SCH ×4 (01:37→21:24)
[2017-06-03] MEDS: Morphine 4 mg/ml ISec IVP PRN ×2 (04:22→16:05)
[2017-06-03] MEDS: Cefepime 1gm in NS 100ml 1 GM/100 ML BAG IVPB SCH ×2 (05:53→14:38)
[2017-06-03] MEDS: Pantoprazole 40 mg EC Tab PO SCH (05:54)
[2017-06-03] MEDS: Enoxaparin 40 mg Syringe SC SCH (05:56)
[2017-06-03] MEDS: Insulin Reg-HIGH-Coverage SC SCH ×4 (06:40→23:05)
[2017-06-03 07:45] LABS: BASO # 0.01 K/mm3 (0.0-2.0); BASO % 0.2 % (0.0-3.0); EOS % 0.2 % (1.5-5.0); GRAN # 5.52 (1.4-6.5); GRAN % 88.1 % (50.0-68.0); HEMOGLOBIN 12.3 g/dL (12.0-16.0); LYMPH # 0.4 (1.2-3.4); LYMPH % 6.5 % (22.0-35.0); MEAN CELL VOLUME 87.6 fl (80.0-105.0); MEAN CORPUSCULAR HEMOGLOBIN 28.9 pg (25.0-35.0); MEAN PLATELET VOLUME 9.8 fl (7.0-11.0); MONO # 0.3 (0.1-0.6); RBC 4.26 10^6/uL (3.5-6.1); WHITE BLOOD COUNT 6.3 10^3/ul (4.5-11.0)
[2017-06-03 07:56] LABS: ALB/GLOB RATIO 1.2 (1.1-1.8); ALBUMIN 3.6 g/dL (3.0-4.8); ALT/SGPT 150 U/L (7-56); AST/SGOT 97 U/L (14-36); BLOOD UREA NITROGEN 17 mg/dL (7-21); CALCIUM 8.7 mg/dL (8.4-10.5); GFR AFRICAN-AMERICAN > 60; GFR NON-AFRICAN AMERICAN > 60
[2017-06-03] MEDS: Venlafaxine 37.5 mg ER Cap PO SCH ×2 (08:06→10:18)
[2017-06-03] MEDS ORDERED: PRISTIQUE PO SCH (10:00)
[2017-06-03] MEDS: Dexamethasone 4 mg/1 ml IVP SCH (10:17)
[2017-06-03] MEDS: Lidocaine 5% Patch TD SCH (10:18)
[2017-06-03] MEDS: Cholestyramine 4 gm/Pkt UD PO SCH (10:20)
[2017-06-03] MEDS: Morphine 15 mg SR Tab PO SCH ×2 (10:23→21:58)
--- NOTE | 2017-06-03 17:11 | PN ---
DATE: 06/03/2017 SUBJECTIVE: The patient is seen sitting in bed. She is awake. She is alert. She is comfortable. She reports feeling better. PHYSICAL EXAMINATION GENERAL: Elderly lady, sitting in bed. VITAL SIGNS: Blood pressure 159/81, heart rate 89, respiratory rate 20, temperature 98.1. HEENT: Normocephalic, atraumatic. NECK: Supple, no JVD. LUNGS: Bilateral equal air entry, bilateral rhonchi, crackles right side. CARDIAC: S1 and S2, regular rate and rhythm, no murmur, no rub. ABDOMEN: Obese, distended, soft, nontender, bowel sounds present. EXTREMITIES: No lower extremity edema. LABORATORY DATA: WBC 6, hemoglobin 12, hematocrit 37, platelets 125. Sodium 130, potassium 3.8, chloride 99, CO2 of 25, BUN 17, creatinine 0.4, glucose 138, calcium 8.7, total bili 0.7, AST 97, ALT 150. MEDICATIONS: List reviewed. ASSESSMENT: 1. Mild hyponatremia. 2. Small cell cancer of the lung with metastasis. 3. ohi-dmsulii-tqevuhysg diabetes mellitus. 4. Influenza A. PLAN: 1. Restrict p.o. free fluids. 2. No other intervention needed for mild hyponatremia. 3. Monitor fingersticks. 4. Continue respiratory treatments. 5. Continue treatment for influenza. Dana Hawkins MD
--- NOTE | 2017-06-03 17:56 | CP.PCM.PN ---
Subjective - Date & Time of Evaluation Date of Evaluation: 06/03/17 Time of Evaluation: 11:00 - Subjective Subjective: Comfortable, breathing well, no diarrhea, no fevers. Objective - Vital Signs/Intake and Output Vital Signs (last 24 hours): Temp Pulse Resp BP Pulse Ox 97.2 F L 90 18 148/68 96 06/02/17 16:29 06/02/17 16:29 06/02/17 16:29 06/02/17 16:29 06/02/17 16:29 - Medications Medications: Current Medications Acetaminophen (Tylenol 325mg Tab) 650 mg PO Q4H PRN PRN Reason: pain 4-10 Albuterol/Ipratropium (Duoneb 3 Mg/0.5 Mg (3 Ml) Ud) 3 ml IH [id number] [facility] Last Admin: 06/03/17 07:30 Dose: 3 ml Alprazolam (Xanax) 0.5 mg PO BID [facility] PRN Reason: Protocol Last Admin: 06/02/17 17:46 Dose: 0.5 mg Alprazolam (Xanax) 1 mg PO HS [facility] PRN Reason: Protocol Last Admin: 06/02/17 22:06 Dose: 1 mg Cholestyramine Resin (Questran) 4 gm PO DAILY [facility] PRN Reason: Protocol Last Admin: 06/02/17 09:11 Dose: 4 gm Dexamethasone (Decadron Inj) 4 mg IVP Q12 [facility] Last Admin: 06/02/17 22:02 Dose: 4 mg Docusate Sodium (Colace) 100 mg PO DAILY [facility] Last Admin: 06/02/17 09:08 Dose: 100 mg Doxycycline Hyclate (Doryx) 100 mg PO Q12 [facility] PRN Reason: Protocol Stop: 06/07/17 22:01 Last Admin: 06/02/17 22:03 Dose: 100 mg Enoxaparin Sodium (Lovenox) 40 mg SC 0600 [facility] PRN Reason: Protocol Last Admin: 06/03/17 05:56 Dose: 40 mg Famotidine (Pepcid) 40 mg PO HS [facility] Last Admin: 06/02/17 22:05 Dose: 40 mg Home Med (Home Med) 50 unit PO DAILY [facility] Cefepime HCl (Maxipime 1gm) 1 gm in 100 mls @ 100 mls/hr IVPB 0600,1400,2200 [facility] PRN Reason: Protocol Stop: 06/11/17 14:01 Last Admin: 06/03/17 05:53 Dose: 100 mls/hr Insulin Human Regular (Humulin R High) 0 units SC ACHS [facility] PRN Reason: Protocol Last Admin: 06/03/17 06:40 Dose: 2 units Lidocaine (Lidoderm) 2 ea TD DAILY [facility] Last Admin: 06/02/17 09:10 Dose: 2 ea Loratadine (Claritin) 10 mg PO DAILY [facility] PRN Reason: Protocol Last Admin: 06/02/17 09:08 Dose: 10 mg Metformin HCl (Glucophage Xr) 500 mg PO 0800,1800 [facility] PRN Reason: Protocol Last Admin: 06/03/17 08:07 Dose: 500 mg Montelukast Sodium (Singulair) 10 mg PO HS [facility] Last Admin: 06/02/17 22:06 Dose: 10 mg Morphine Sulfate (Morphine) 3 mg IVP Q3H PRN PRN Reason: Pain, severe (8-10) Last Admin: 06/03/17 04:22 Dose: 3 mg Morphine Sulfate (Morphine Extended Release Tab) 15 mg PO Q12 [facility] PRN Reason: Protocol Last Admin: 06/02/17 22:04 Dose: 15 mg Nicotine (Nicoderm Cq) 1 patch TD DAILY [facility] Last Admin: 06/02/17 09:11 Dose: 1 patch Nicotine (Nicoderm Cq) 1 patch TD DAILY [facility] Last Admin: 06/02/17 09:12 Dose: 1 patch Non-Formulary Medication (Colesevelam Hcl [Welchol]) 625 mg PO QID [facility] Last Admin: 06/02/17 22:02 Dose: Not Given Ondansetron HCl (Zofran Odt) 4 mg PO Q6 PRN PRN Reason: Nausea/Vomiting Oxycodone HCl (Oxycodone Immediate Release Tab) 5 mg PO Q6H PRN PRN Reason: break through pain Last Admin: 06/02/17 16:31 Dose: 5 mg Pantoprazole Sodium (Protonix Ec Tab) 40 mg PO 0600 [facility] Last Admin: 06/03/17 05:54 Dose: 40 mg Polyethylene Glycol (Miralax) 17 gm PO DAILY PRN PRN Reason: Constipation Sodium Chloride ([place] Nasal [place]) 0 ml NS DAILY PRN; Protocol PRN Reason: NASAL CONGESTION Last Admin: 05/27/17 10:31 Dose: 1 applic Venlafaxine HCl (Effexor Xr) 75 mg PO DAILY [facility] Last Admin: 06/03/17 08:06 Dose: 75 mg Vitamin A (Vitamin A & D Oint Ud Foilpak) 1 ea TOP Q4H PRN; Protocol PRN Reason: Other Last Admin: 05/28/17 15:22 Dose: 1 ea Zolpidem Tartrate (Ambien) 5 mg PO HS PRN; Protocol PRN Reason: insomnia - Labs Labs: 06/03/17 07:20 06/03/17 07:20 - Constitutional Appears: Non-toxic - Head Exam Head Exam: NORMAL INSPECTION - ENT Exam ENT Exam: Mucous Membranes Moist - Neck Exam Neck Exam: absent: Meningismus - Respiratory Exam Respiratory Exam: Decreased Breath Sounds - Cardiovascular Exam Cardiovascular Exam: +S1, +S2 - GI/Abdominal Exam GI & Abdominal Exam: Soft. absent: Tenderness Assessment and Plan - Assessment and Plan (Free Text) Plan: Assessment Systemic viral illness with Influenza and acute bronchitis VRE in the urine, asymptomatic DM HTN depression lower back tumor obesity with BMI 30 Plan completed 5 days of Doxycycline and Cefepime and Tamiflu - will d/c and observe follow up repeat urine cx will monitor clinically
[2017-06-03] MEDS ORDERED: Morphine 15 mg SR Tab PO SCH (18:00)
[2017-06-03] MEDS: Morphine 15 mg Immediate Release Tab PO SCH ×2 (18:04→21:58)
--- NOTE | 2017-06-03 22:33 | PN ---
DATE: 06/03/2017 PULMONARY PROGRESS NOTE REFERRING PHYSICIAN: Yosef Reis MD. SUBJECTIVE: She is sitting up in a bed. Night was unremarkable. Feels better. Decreased cough. Decreased shortness of breath. No nausea. No vomiting, diarrhea, leg pain, leg swelling. OBJECTIVE: GENERAL: In no acute distress. VITAL SIGNS: Temp is 98, heart rate is 94, respiratory rate is 20, blood pressure 139/84, pulse ox 97% on room air. HEENT: Moist mucous membrane. Crowded airway. NECK: Supple. No JVD. LUNGS: Have fair airflow with few rhonchi. HEART: S1 and S2. ABDOMEN: Soft, nontender. No organomegaly. EXTREMITIES: There is no edema. NEUROLOGICAL: Awake and alert. Follows simple command. LABORATORY DATA: Shows hemoglobin 12.3, hematocrit 37.3, WBC 6.3, platelet is 125. Sodium 130, potassium 3.8, chloride 99, bicarbonate 25, BUN is 17, creatinine 0.4, glucose 138, calcium is 8.7, AST 97, ALT 150, alk phos is 175, albumin is 3.6. Urine culture: Enterococcus faecium. MEDICATIONS: She is on Ambien 5 mg at bedtime p.r.n., Claritin 10 mg daily, Colace 100 mg daily, Welchol 625 mg q.i.d., Decadron 4 mg daily, DuoNeb q. 6 hours, Effexor XR 75 mg daily, metformin 500 mg twice a day, insulin coverage, lidocaine at affected area, Lovenox 40 mg daily, Magic solution swish and spit q. 4 hours, MiraLax 17 g daily p.r.n., morphine 3 mg q. 3 hours p.r.n., also on morphine extended release 30 mg p.o. q. 12 hours, morphine immediate release 50 mg q.i.d., Nicoderm patch daily, [place] nasal spray each nostril on p.r.n. basis, Pepcid 40 mg daily, also getting Protonix 40 mg daily, cholestyramine 4 g daily, Singulair 10 mg daily, Tylenol p.r.n., vitamin A and D ointment to affected area, Xanax 0.5 mg twice a day, Zofran 4 mg q. 6 hours p.r.n. IMPRESSION AND PLAN: Metastatic small cell cancer with involving the lungs, bones, liver, involving T10 to T11 vertebra with cord compression. Getting radiation therapy. Resolving an influenza A infection. Has acute bronchitis. There is maybe component of sleep apnea syndrome. Pulmonary point of view, she is doing well. Keep head at 45 degrees. Bronchodilator. Outpatient pulmonary function test. Also need sleep study, maybe screening home study upon discharge at home. Received [id number] at the right upper chest. Thank you and we will follow with you. Robert Eastman MD
[2017-06-04] MEDS: Albuterol-Ipratrop 3 mg / 0.5 (3 ml) UD IH SCH ×2 (02:55→07:20)
[2017-06-04] MEDS ORDERED: Morphine 2 mg/ml ISec IVP STA (04:00)
[2017-06-04] MEDS ORDERED: Morphine 5 MG/ML SYRINGE IV STA (04:04)
[2017-06-04] MEDS: Aluminum Hydroxide/Magnesium 30 ML, DiphenhydrAMINE 75 MG, Lidocaine 2% Viscous 30 ML PO PRN ×2 (04:12→10:43)
--- NOTE | 2017-06-04 04:24 | PN ---
DATE: ONCOLOGY PROGRESS NOTE LOCATION: The patient is in room 321, bed 1. SUBJECTIVE: The patient is examined lying in bed at 45 degrees, friend is at her bedside. The patient tells me that night was unremarkable. She was able to go down for radiation yesterday. No nausea. No vomiting. Still has some cough, but overall feels better. In bed, pain is better controlled, but when she stands up and walks, especially to go to the bathroom, she is able to do on her own using a cane. It is an epic for her and pain on the pain scale is 0 to 10, goes up to rate of 9. The pain medicine that she takes by mouth relieves the pain only for about 3 hours and if the pain is not enough, she still requires the IV morphine to get it through. The patient's bowels are moving well. She completed radiation without any major issues. She is breathing better. Overall feeling better since she has overcome the flu. PHYSICAL EXAMINATION GENERAL: The patient is in no acute distress. VITAL SIGNS: Stable. T-max is 98.4, heart rate is 98, respirations 20, blood pressure is 148/68, pulse ox is 96% on room air. HEENT: Head is normocephalic, atraumatic. Conjunctivae pale. Sclerae are anicteric. Pupils are equally reactive to light and accommodation. On examination of the oropharynx, the patient is edentulous. No oropharyngeal lesions are noted. The patient is complaining of soreness in the mouth of recent origin over the last 48 hours. No obvious ulcerations are noted. Tongue is moist. No ulcerations are noted per se, there she feels the soreness. There is no obvious fungal infection. NECK: Supple. There is no adenopathy. No jugular venous distention noted. LUNGS: Revealed scattered wheezes with decreased breath sounds in the right upper lobe posteriorly. HEART: Examination of the heart reveals PMI to be in the fifth intercostal space inside the midclavicular line. S1 and S2 are normal. No gallops or murmurs heard. ABDOMEN: Soft, nontender. Bowel sounds are present and nontender. Liver and spleen are not palpable. No rebound, rigidity or guarding is noted. EXTREMITIES: Reveals no cyanosis, clubbing or edema. NEUROLOGIC: Reveals higher functions to be normal. No focal deficits are noted. The patient was made to stand up and walk a few steps from the bed to the bathroom, which is about 10 feet. The patient was able to do so on her own, but did tell me that her pain was bad and she had to go back to sit on the bed. The patient got her back support brace today, which she wore and I told her to keep it wearing during the course of the day and just to take it off at nighttime, but to wear it during the day when she is up and around. GENITOURINARY: Deferred. RECTAL: Deferred. LYMPHATICS: Examination of adenopathy reveals no adenopathy in the neck, axilla or groin. LABORATORY DATA: Reveals hemoglobin of 12.1, hematocrit 36.3, white count of 6.3 with a platelet count of 133,000. Sodium is 130, potassium is 3.9, chloride 95, bicarbonate 25, BUN of 16, creatinine of 0.4, glucose of 176, calcium of 8.8, AST of 98, ALT of 142, alkaline phosphatase of 151, albumin is 3.5. Urine culture showed Enterococcus sensitive to tigecycline and linezolid. MEDICATIONS: The patient's medications were reviewed. She is on Ambien 5 mg at bedtime, Claritin 10 mg daily, Colace 100 mg daily, Welchol 625 mg 4 times a day, Decadron 4 mg q. 12 hours, doxycycline 100 mg twice a day, DuoNeb q. 6 hours, Effexor XR 75 mg daily, Glucophage XR 500 mg twice daily, insulin coverage, Lidoderm patch to the affected areas, Lovenox 40 mg daily, cefepime 1 g 3 times a day, MiraLax 17 g daily, morphine 3 mg q. 3 hours p.r.n., morphine extended release 15 mg q. 12 hours, Nicoderm patch 21 mg daily, nasal saline spray 2 sprays to each nostril p.r.n., oxycodone immediate release 5 mg p.o. q. 6 h. p.r.n., Pepcid 40 mg daily, Protonix 40 mg daily, Singulair 10 mg daily, cholestyramine 4 g daily, Tylenol p.r.n., vitamin A and D ointment to the affected areas, Xanax 0.5 mg twice a day and 1 mg at bedtime. She is taking Zofran 4 mg q. 6 hours and Pristiq, just cut into once a day. 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 Completed radiation therapy as of yesterday. Resolving influenza infection, had urinary tract infection and acute bronchitis. Completing antibiotic therapy. From Pulmonary point of view, she is holding her own. From an oncologic perspective, she completed radiation. We are going to wait until Tuesday to initiate her first cycle of chemotherapy, which we are planning to do as an outpatient. The patient's pain medicines are being adjusted. I am increasing the MS Contin from 15 to 30 mg q. 12 hours. She is also going to get MSIR 15 mg 4 times a day on a scheduled basis and she can still have the oxycodone as needed. Hopefully with this combination, the pain will be better controlled by tomorrow. If she continues to do well, our plan is to discharge her and then, bring her back in on Tuesday for outpatient chemotherapy. Plan is to bring her everyday at the [facility] in the outpatient clinic for 3 days in a row and monitor her very closely after the chemotherapy for tumor lysis syndrome. Routine post-exam instructions have been given to the patient. Port-A-Cath site which was inserted 2 days ago appears to be intact. We will make sure the needle is removed and the port flushed prior to discharge. The patient has been encouraged about port precautions. We are going to make sure she has enough care at home including therapy at home and home labs to be done when she does get ready to be discharged. In the meantime, I am going to discontinue the doxycycline and discontinue the cefepime as of today. Again, post-exam instructions have been given to the patient. Rudy Puente MD
[2017-06-04] MEDS: Pantoprazole 40 mg EC Tab PO SCH (05:06)
[2017-06-04] MEDS: Enoxaparin 40 mg Syringe SC SCH (05:06)
[2017-06-04] MEDS: Insulin Reg-HIGH-Coverage SC SCH (06:33)
[2017-06-04 07:54] LABS: EOS % 0.2 % (1.5-5.0); GRAN # 4.48 (1.4-6.5); GRAN % 86.5 % (50.0-68.0); HEMOGLOBIN 12.2 g/dL (12.0-16.0); LYMPH # 0.5 (1.2-3.4); LYMPH % 9.8 % (22.0-35.0); MEAN CELL VOLUME 88.4 fl (80.0-105.0); MEAN CORPUSCULAR HEMOGLOBIN 28.9 pg (25.0-35.0); MEAN CORPUSCULAR HGB CONC 32.7 g/dl (31.0-37.0); MEAN PLATELET VOLUME 9.6 fl (7.0-11.0); MONO # 0.2 (0.1-0.6); MONO % 3.5 % (1.0-6.0); RBC 4.22 10^6/uL (3.5-6.1); RED CELL DISTRIBUTION WIDTH 14.2 % (11.5-14.5); WHITE BLOOD COUNT 5.2 10^3/ul (4.5-11.0)
[2017-06-04 08:06] LABS: ALB/GLOB RATIO 1.2 (1.1-1.8); ALBUMIN 3.3 g/dL (3.0-4.8); ALT/SGPT 134 U/L (7-56); AST/SGOT 84 U/L (14-36); BLOOD UREA NITROGEN 18 mg/dL (7-21); CALCIUM 8.3 mg/dL (8.4-10.5); GFR AFRICAN-AMERICAN > 60; GFR NON-AFRICAN AMERICAN > 60
[2017-06-04] MEDS ORDERED: PRISTIQUE PO SCH (10:00)
[2017-06-04] MEDS ORDERED: Albuterol 0.5% Inhal Sol (2.5 mg/0.5 ml) UD IH PRN (10:12)
[2017-06-04] MEDS: Venlafaxine 37.5 mg ER Cap PO SCH (10:25)
[2017-06-04] MEDS: Morphine 15 mg SR Tab PO SCH (10:27)
[2017-06-04] MEDS: Cholestyramine 4 gm/Pkt UD PO SCH (10:27)
[2017-06-04] MEDS: Morphine 15 mg Immediate Release Tab PO SCH ×2 (10:28→14:02)
[2017-06-04] MEDS: Lidocaine 5% Patch TD SCH (10:31)
--- NOTE | 2017-06-04 12:06 | PN ---
DATE: SUBJECTIVE: The patient is currently seen lying comfortable in bed. She states she is going to be discharged home later today. The patient's sodium level from yesterday remains borderline low at 130. The patient is attempting to decrease her p.o. fluid intake, but because of sores and dryness in her mouth, she finds difficult not to drink fluids. She has completed a course of antibiotic therapy. MEDICATIONS: Medication list reviewed. The patient is on Ambien, Claritin, Colace, Welchol, Decadron, DuoNeb, Effexor, Glucophage, Pristiq, insulin, Lidoderm, Lovenox, MiraLax, morphine, Nicoderm, [place] nasal spray, Pepcid, Protonix, Questran, Singulair, Tylenol p.r.n., Xanax, and Zofran p.r.n. Also aluminum hydroxide, magnesium hydroxide, simethicone and diphenhydramine, lidocaine liquid solution. OBJECTIVE: VITAL SIGNS: Blood pressure is 136/79, temperature 97.4, respiratory rate 16 with a pulse of 89, pulse ox is 94%. HEENT: Shows her to be normocephalic, atraumatic. Conjunctivae are pink. Sclerae nonicteric. NECK: Supple. No neck vein distention. CHEST: Clear to auscultation and percussion with no rales, no rhonchi or wheezing. The patient has a port in her right chest wall. CARDIOVASCULAR: Normal S1, S2 without murmurs, rubs or gallops. ABDOMEN: Soft. Bowel sounds normal. No rebound or guarding or masses. No fullness over her right upper quadrant. EXTREMITIES: Show no cyanosis, clubbing or edema. Distal lower extremity pulses are intact at 1 to 2+. LABORATORY DATA AND IMAGING: Labs from yesterday, CBC: White blood cell count 6.3, hemoglobin 12.3 with a platelet count of 125,000. Chemistry shows sodium of 130, stable over the last 24-48 hours. BUN 17 with a creatinine of 0.4. Glucose is 138. Bilirubin was normal. Mild elevation of her liver enzymes unchanged. Uric acid level was low. Urine study showed an elevated urine osmolality with a high urine sodium. Microbiology: Urine was positive for Enterococcus faecium. Blood cultures were negative. Initial serologies were positive for influenza A. ASSESSMENT: 1. Mild hyponatremia. 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 I discussed with the patient the need to restrict p.o. fluid hydration. She states this is difficult because of the dryness and sores in her mouth, but she will attempt to do this. Sodium of 130 would be acceptable. We do not want to see the sodium drop down into the low 120 range. The patient might be a candidate for outpatient use of Tolvaptan. 2. History of small cell cancer of the lung with bone and liver mets. The patient has a port in her right chest wall and she states that she will be receiving chemotherapy to Dr. Puente in an outpatient setting. 3. History of influenza A. The patient had completed a course of Tamiflu therapy. 4. History of urinary tract infection secondary to Enterococcus. The patient had completed a course of antibiotic therapy. 5. History of noninsulin-dependent diabetes mellitus. Glucose control is acceptable. She is on sliding scale insulin. 6. Mild anemia. This has improved. PLAN: 1. Again discussed with the patient the need to try and voluntarily restrict p.o. fluids in the outpatient setting. I have explained that she could suck ice cubes if necessary, she could use sucking candies if necessary. 2. The patient will have chemistries monitored in the outpatient setting by her oncologist at the time of initiation of chemotherapy. 3. Agree with tentative discharge home today. Delta Riley MD MTDD
--- NOTE | 2017-06-04 15:21 | PN ---
DATE: 06/04/2017 PULMONARY PROGRESS NOTE REFERRING PHYSICIAN: Yosef Reis MD SUBJECTIVE: She is sitting up in a bed. Night was unremarkable. Feels better. Mild cough, clear sputum. No nausea. No vomiting. No diarrhea. No leg pain or leg swelling. OBJECTIVE: GENERAL: In no acute distress. VITAL SIGNS: Temperature is 98, heart rate is 89, respiratory rate is 16, blood pressure 136/79, pulse ox 94% on room air. HEENT: Moist mucous membranes. Crowded airway. Mallampati score is IV. NECK: Supple. No JVD. LUNGS: Have a fair airflow with a few rhonchi. HEART: S1 and S2. ABDOMEN: Soft, nontender. No organomegaly. EXTREMITIES: No edema. NEUROLOGICAL: Awake and alert. Follows simple command. MEDICATIONS: She is on Ambien 5 mg at bedtime p.r.n., Claritin 10 mg daily, Colace 100 mg daily. She is also on Welchol 625 mg q.i.d., Decadron 4 mg daily, DuoNeb q. 6 hours, Effexor 75 mg daily, metformin 500 mg twice a day, Lidoderm patch to the affected area, Lovenox 40 mg daily, also Magic mouthwash, on morphine extended release 30 mg q. 12 hours, also on morphine immediate release 50 mg q.i.d., Nicoderm patch daily, nasal saline p.r.n. basis, Pepcid 40 mg daily, Protonix 40 mg daily, cholestyramine 4 g daily, Singulair 10 mg daily, Tylenol p.r.n. basis, vitamin A and D ointment to affected area q. 4 hours, Xanax 0.5 mg twice a day, also Xanax 1 mg at bedtime, Zofran on p.r.n. basis. LABORATORY DATA: Shows hemoglobin 12.2, hematocrit 37.3, WBC 5.2, platelet is 112. Sodium 132, potassium 3.5, chloride 100, bicarbonate 24, BUN 18, creatinine 0.4, glucose is 121, calcium is 8.3, total bili 0.6, AST 84, ALT 134, alk phos is 172, albumin is 3.3. Urine culture from yesterday has some gram-positive cocci. IMPRESSION AND PLAN: Metastatic small cell cancer involving the lung, bone, liver, also thoracic and lumbar vertebrae with compression fracture urinary tract infection, status post influenza infection, has acute bronchitis, chronic lung disease. Pulmonary point of view, she is doing well. Continue antihistamine, nicotine inhibitor. Discontinue DuoNeb. Add Ventolin HFA 2 puffs q. 4 hours p.r.n. Outpatient pulmonary function tests and sleep study. Fall precaution. Thank you and we will follow with you. Robert Eastman MD
[2017-06-04 16:06] VITALS: BP 141/70; PULSE 93; RESP 18; TEMP 97.5; O2SAT 97
--- NOTE | 2017-06-04 22:42 | PN ---
DATE: 06/04/2017 SUBJECTIVE: The patient is in bed, in no acute distress, nontoxic. PHYSICAL EXAMINATION: VITAL SIGNS: Temperature is 97, blood pressure is 140/70, respiratory rate of 18. HEENT: Unremarkable. NECK: Supple. LUNGS: Have decreased breath sounds. HEART: Normal S1 and S2. ABDOMEN: Soft, nontender. LABORATORY DATA: Reveals a white count of 5.2, hemoglobin of 12, platelets of 112. Chemistries reveal a BUN of 18, creatinine of 0.4. Serology is noted. Influenza is positive. Urine culture is noted to be Enterococcus. ASSESSMENT AND PLAN: This is a 72-year-old female seen earlier this morning in room 321 with suspected vital illness with influenza and acute bronchitis and vancomycin-resistant Enterococcus in the urine, which is asymptomatic in a diabetic, hypertensive patient with depression. Completed 5 days of doxycycline, Tamiflu, and Cefepime. Currently, off of antibiotics. The patient is at risk for developing nosocomial infections. Jorge Luis Hernandez MD
--- NOTE | 2017-06-06 01:16 | DS ---
ONCOLOGY PROGRESS AND DISCHARGE SUMMARY NOTE LOCATION: Patient is in room 321, bed 1. SUBJECTIVE: Patient is sitting up in bed. Night was unremarkable. Feels better. Pain is better controlled on the current doses of morphine, which is MS Contin 30 mg q. 12 hours and MS-IR 15 mg 4 times a day. Patient has mild cough with clear phlegm. No nausea. No vomiting. No diarrhea. Patient complains of bloating and belching, especially on eating and I told her to be careful about watching what she eat because she just completed radiation to the thoracic spine and she would have some esophageal complaints post treatment. No leg pain. No leg swelling. OBJECTIVE: GENERAL: Patient is in no acute distress. Patient is sitting out of bed. She was able to walk up with the cane to the bathroom in front of me, appeared with minimal pain. Pain on pain scale of 0 to 10 is down to 3 to 4. VITAL SIGNS: Stable. T-max is 98.4, heart rate is 89, respirations 16 per minute, blood pressure is 136/79, pulse ox is 94% on room air. HEENT: Head is normocephalic and atraumatic. Conjunctiva pale. Sclerae anicteric. Pupils are equally reactive to light and accommodation. Examination of the oropharynx reveals patient to be edentulous. No oropharyngeal lesions are noted. Previously noted soreness in the mouth and in the floor of the mouth including the inner aspect of her lower lips are better. She is using the Magic mouthwash. I instructed her to use one teaspoon 20 minutes before eating, which would help her with the developing esophagitis as well. NECK: Supple. There is no adenopathy. LUNGS: Examination of the lungs reveal good airflow with scattered wheeze. Decreased breath sounds in the right upper lobe is noted. HEART: Examination of the heart reveals S1 and S2 to be normal. No gallop or murmur is heard. ABDOMEN: Soft, nontender. Liver and spleen are not palpable. No other masses are felt. EXTREMITIES: Revealed no cyanosis, clubbing, or edema. NEUROLOGIC: Reveals her higher functions to be normal. Patient is able to follow commands. No focal deficits are noted. GENITOURINARY/RECTAL: Deferred. SKIN: Skin turgor is normal. No skin lesions are noted. LYMPHATICS: There is no evidence of adenopathy in the neck, axilla, or groin. MEDICATIONS: Patient's medications were reviewed. Currently, she is on the following medications which she is currently going to home with. The medications are listed as below: She is on the Magic mouthwash 1 teaspoon q. 4h p.r.n. She is on DuoNeb 3 mg/0.5 mg 3 mL inhalation q. 6 hours, Xanax 0.5 mg b.i.d. and Xanax 1 mg p.o. at bedtime. Cholestyramine is going to be stopped and she is going to back on her own medicines that she has at home, which is once a day. She is going to get vitamin D 50,000 units once a day, mg twice a day, Colace 100 mg daily, Decadron is going to be 4 mg daily, Pepcid 40 mg p.o. at bedtime. She is going to be on lidocaine patches - 2 patches a day, metformin extended release 500 mg twice a day, Singulair 10 mg at bedtime, morphine extended release 30 mg q. 12 hours, morphine immediate release 15 mg q.i.d., nicotine or Nicoderm patch 21 mg and 7 mg, one on each arm once a day. She is going to continue her WelChol 625 mg q.i.d., which she has at home, Zofran 4 mg ODT tablet as needed for nausea, pantoprazole 40 mg once a day, MiraLax 17 g once a day, [place] nasal spray p.r.n. Ambien 5 mg p.o. at bedtime. She is going to be off the Effexor as currently the patient is on Pristiq. Patient's port was flushed aseptically and the needle de-accessed. LABORATORY DATA: From today reveals a hemoglobin of 12.2, hematocrit 37, white count is 5.2, platelet count 112. Sodium is 132, K is 3.5, chloride 100, bicarbonate 25, BUN 18, creatinine 0.5, glucose 121, calcium 8.3, total bili 0.6, AST of 84, ALT of , alkaline phosphatase of 177, albumin of 3.3. Urine culture from yesterday shows some Gram-positive cocci, we need to monitor that. Patient is off antibiotics at this point. DISCHARGE PLAN: Patient has extensive small cell carcinoma of the lung, egophony with cord compression, admitted to the TCU for deconditioning, continuation of the radiation, which she completed on , developed influenza, treated aggressively with Tamiflu - recovered, recurrent urinary tract infection, bronchitis, chronic lung disease. Patient is being discharged today. She will be coming back on Tuesday to the outpatient Oncology clinic to resume her first cycle of chemotherapy consisting of carboplatin and etoposide. We may have to make some dose modifications by Tuesday. In view of her counts may be dropping by then, we may have to give her 80% of the dose if that is the plan at time or 85% of the dose. I will speak to Dr. Eastman about pulmonary followup. Patient may need a sleep study as an outpatient, pulmonary function study. Fall precautions have been requested. They are going to continue monitor her very carefully when she goes home. Right now , she is being discharged and going to stay with her daughter before coming back on Tuesday for her systemic therapy. Patient may need also Ventolin HFA 2 puffs q. 4h p.r.n. when she is out of the home coming to the outpatient clinic. Routine post-exam instructions have been given to the patient. Overall, prognosis is guarded but cautiously optimistic and I have given instructions to the patient. No dietary restrictions have been placed. We will watch her sodium, which is borderline at this point and watch her which is also borderline at this point. Time spent with the patient in correlating all the information, writing up discharge orders, filling out all the prescriptions, talking to the various vendors, arranging for home nebulizer therapy, home therapy for equipment at home including shower and chair took more than 90 minutes of time, out of which more than 50% of the time was spent in [id number] encounter. Rudy Puente MD
== END 2017-06-04 16:45 | disposition home or self-care (01) | DRG 181 ==
LOC: TRCU 19:20
PROVIDERS: ADMIT Family Medicine; ATTEND Family Medicine
PROC: F07Z9FZ Gait Training/Functional Ambulation Treatment using Assistive, Adaptive, Supportive or Protective Equipment (ICD-10-PCS; principal; 2017-05-28)
PROC: F07M6ZZ Therapeutic Exercise Treatment of Musculoskeletal System - Whole Body (ICD-10-PCS; 2017-05-28)
PROC: F08Z1ZZ Dressing Techniques Treatment (ICD-10-PCS; 2017-05-28)
PROC: F08Z2ZZ Grooming/Personal Hygiene Treatment (ICD-10-PCS; 2017-05-28)
DX: C34.90 Malignant neoplasm of unspecified part of unspecified bronchus or lung (principal); C78.00 Secondary malignant neoplasm of unspecified lung; C78.7 Secondary malignant neoplasm of liver and intrahepatic bile duct; E22.2 Syndrome of inappropriate secretion of antidiuretic hormone; C79.51 Secondary malignant neoplasm of bone; D64.9 Anemia, unspecified; E11.9 Type 2 diabetes mellitus without complications; E66.9 Obesity, unspecified; N39.0 Urinary tract infection, site not specified; Z68.30 Body mass index [BMI] 30.0-30.9, adult; F17.210 Nicotine dependence, cigarettes, uncomplicated; F32.9 Major depressive disorder, single episode, unspecified; I10 Essential (primary) hypertension; J10.1 Influenza due to other identified influenza virus with other respiratory manifestations; J20.9 Acute bronchitis, unspecified; J31.0 Chronic rhinitis; Z87.440 Personal history of urinary (tract) infections; Z92.3 Personal history of irradiation

== ENCOUNTER 2017-05-31 08:27 | Day surgery (SDC) | payer MEDICARE, OTHER ==
[2017-05-31] MEDS ORDERED: Iodixanol 320 MG/ML 100 ML BOTTLE IV ONE (09:28)
[2017-05-31] MEDS ORDERED: Lidocaine 2% Inj (20ml) ONE (09:28)
[2017-05-31] MEDS ORDERED: HEPARIN SODIUM/NS 1,000 ML IV ONE (09:28)
[2017-05-31] MEDS ORDERED: Midazolam 2 MG/2 ML VIAL ONE ×2 (09:29→10:33)
[2017-05-31] MEDS ORDERED: Oxycodone/Acetaminophen 5/325 mg Tab PO PRN (11:33)
[2017-05-31] MEDS ORDERED: Sodium Chloride 0.45% 1,000 ML IV SCH (11:45)
[2017-05-31 12:43] VITALS: BP 182/98; PULSE 84; RESP 16; TEMP 98.2; O2SAT 96
--- NOTE | 2017-05-31 20:13 | VASCULAR ---
PROCEDURE: Ultrasound and fluoroscopic right internal jugular venous access port. CLINICAL HISTORY: Metastatic small cell carcinoma.Venous port for chemotherapy. PHYSICIAN(S): Lars Alvarado M.D. TECHNIQUE: The relative risks and indications of the procedure were explained to the patient and consent obtained. The patient was placed supine on the arteriogram table and the right neck and chest prepped and draped in the usual sterile fashion. Conscious sedation monitoring was provided throughout the procedure by a nurse. Antibiotics were given prior to the procedure. Under direct ultrasound guidance, the right internal jugular vein was punctured with a micro-puncture set. A 0.035 angled Glidewire was advanced into the IVC. A 4 cm incision was made below the right clavicle and the pocket blunted dissected. A 8 [place] single-lumen catheter, 23 cm long, was advanced to the SVC/RA junction. The catheter was trimmed and attached to the port. The port aspirates and injects easily. The port was placed in the pocket and closed in 2 layers. An access needle was placed. The patient tolerated the procedure well. IMPRESSION: Ultrasound and fluoroscopically placed right internal jugular venous access port.
== END 2017-05-31 12:30 | disposition home or self-care (01) ==
LOC: SDSVAS 08:27
PROVIDERS: ATTEND Radiology Vascular & Interventional Radiology
DX: Z45.2 Encounter for adjustment and management of vascular access device (principal); C34.90 Malignant neoplasm of unspecified part of unspecified bronchus or lung; C78.7 Secondary malignant neoplasm of liver and intrahepatic bile duct; I10 Essential (primary) hypertension; E11.9 Type 2 diabetes mellitus without complications; E78.5 Hyperlipidemia, unspecified; M19.90 Unspecified osteoarthritis, unspecified site; F32.89 Other specified depressive episodes; F41.9 Anxiety disorder, unspecified; Z88.2 Allergy status to sulfonamides
CPT/HCPCS: 36561; 76937; 77001; 82948; 99152; 99153; C1769; C1788; J1644; J2250; J2405; J3010; J7030 ×2

== ENCOUNTER 2017-06-07 18:02 | Inpatient (IN) | payer MEDICARE, OTHER ==
[2017-06-07 18:11] VITALS: BMI 33.5
[2017-06-07] MEDS ORDERED: Albuterol-Ipratrop 3 mg / 0.5 (3 ml) UD IH STA ×2 (18:19→18:20)
--- NOTE | 2017-06-07 18:23 | ED PDOC ---
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 Patient states that her last chemotherapy treatment was earlier today and was given Lasix before arriving. Patient denies any fevers or any other complaint at this time. Time/Duration: 4-6 hours Symptom Onset: Gradual Symptom Course: Unchanged Activities at Onset: Light Past Medical History - Provider Review Nursing Documentation Reviewed: Yes - Infectious Disease Hx of Infectious Diseases: None - Reproductive Menopause: Yes - Cardiac Hx Pacemaker: No - Pulmonary Hx Respiratory Disorders: No - Neurological Hx Neurological Disorder: No - HEENT Hx HEENT Disorder: No - Renal Hx Renal Disorder: No - Endocrine/Metabolic Hx Diabetes Mellitus Type 2: Yes - Hematological/Oncological Hx Blood Transfusions: No - Integumentary Hx Dermatological Disorder: No - Musculoskeletal/Rheumatological Hx Arthritis: Yes Hx Falls: No - Gastrointestinal Hx Gastrointestinal Disorders: No - Genitourinary/Gynecological Hx Genitourinary Disorders: Yes - Psychiatric Hx Psychophysiologic Disorder: Yes Hx Anxiety: Yes Hx Depression: Yes Hx Substance Use: No - Surgical History Hx Orthopedic Surgery: Yes (R KNEE) - Anesthesia Hx Anesthesia Reactions: No Hx Malignant Hyperthermia: No Family/Social History - Physician Review Nursing Documentation Reviewed: Yes Family/Social History: No Known Family HX Smoking Status: Former Smoker Hx Alcohol Use: No Hx Substance Use: No Allergies/Home Meds Allergies/Adverse Reactions: Allergies Sulfa (Sulfonamide Antibiotics) Allergy (Verified 05/26/17 19:50) ANAPHYLAXIS Home Medications: Home Meds Medication Instructions Recorded Confirmed ALPRAZolam [Xanax] 1 mg PO HS 06/06/17 06/08/17 Cinnamon Bark [Cinnamon] 2 mg PO DAILY 06/06/17 06/08/17 Desvenlafaxine Succinate 50 mg PO BID 06/06/17 06/08/17 [place] Nasal Moisturizer 1 spr ANA DAILY PRN 06/06/17 06/08/17 [place] Levocitrizine 5 mg PO HS 06/06/17 06/08/17 Lidocaine 5% [Lidoderm] 2 ea TD HS 06/06/17 06/08/17 Ondansetron ODT [Zofran ODT] 4 mg PO TID 06/06/17 06/08/17 Review of Systems - Physician Review All systems were reviewed & negative as marked: Yes - Review of Systems Constitutional: absent: Fevers Eyes: absent: Vision Changes ENT: Sinus Congestion. absent: Hearing Changes Respiratory: absent: SOB, Cough Cardiovascular: absent: Chest Pain Gastrointestinal: absent: Abdominal Pain Genitourinary Female: absent: Dysuria Musculoskeletal: absent: Arthralgias Skin: absent: Rash, Pruritis Neurological: absent: Headache, Dizziness Endocrine: absent: Diaphoresis Hemo/Lymphatic: absent: Adenopathy Psychiatric: absent: Anxiety, Depression Physical Exam Vital Signs Reviewed: Yes Vital Signs Temp Pulse Resp BP Pulse Ox 06/08/17 11:51 89 18 123/69 96 06/08/17 07:37 97.8 F 100 H 22 146/82 95 06/08/17 07:02 146/89 06/08/17 07:01 144/84 06/08/17 03:03 98.6 F 96 H 18 112/59 L 99 06/08/17 02:02 98 H 19 142/76 100 06/07/17 22:02 98 H 16 142/74 100 06/07/17 18:02 98.8 F 93 H 22 145/51 L 92 L Temperature: Afebrile Blood Pressure: Hypotensive Pulse: Tachycardic Respiratory Rate: Normal Appearance: Positive for: Well-Appearing, Non-Toxic, Comfortable Pain Distress: None Mental Status: Positive for: Alert and Oriented X 3 - Systems Exam Head: Present: Atraumatic, Normocephalic Pupils: Present: PERRL Extroacular Muscles: Present: EOMI Conjunctiva: Present: Normal Mouth: Present: Moist Mucous Membranes Neck: Present: Normal Range of Motion Respiratory/Chest: Present: Rhonchi (bilateral) Cardiovascular: Present: Regular Rate and Rhythm, Normal S1, S2. No: Murmurs Abdomen: Present: Normal Bowel Sounds. No: Tenderness, Distention, Peritoneal Signs Back: Present: Normal Inspection Upper Extremity: Present: Normal Inspection. No: Cyanosis, Edema Lower Extremity: Present: Normal Inspection. No: Edema Neurological: Present: GCS=15, CN II-XII Intact, Speech Normal Skin: Present: Warm, Dry, Normal Color. No: Rashes Psychiatric: Present: Alert, Oriented x 3, Normal Insight, Normal Concentration Medical Decision Making ED Course and Treatment: 06/07/17 18:24 Impression: 72 year old female who presents to the emergency department sent by oncologist for evaluation of congestion. Differential Diagnosis included but are not limited to: Plan: -- EKG -- Chest X-ray -- Labs -- Duoneb -- Reassess and disposition Prior Visits: Notes and results from previous visits were reviewed. Patient was last seen in the emergency department on 05/19/17 sent into the emergency department by Dr. Puente for evaluation. Patient was admitted to hospitalist care for further evaluation. Progress Notes: EKG: Ordered, reviewed, and independently interpreted the EKG. Rate : 87 BPM Rhythm : Sinus Rhythm Interpretation : LVH. - Lab Interpretations Microbiology Results: Microbiology Results 06/09/17 05:30 Blood Blood Culture - Preliminary NO GROWTH AFTER 4 DAYS 06/09/17 05:30 Blood Blood Culture - Preliminary NO GROWTH AFTER 4 DAYS 06/09/17 09:00 Urine Urine Culture - Final No Growth (<1,000 CFU/ML) Lab Results: 06/09/17 05:30 06/09/17 05:30 Lab Results 06/09/17 09:00: Urine Color Yellow, Urine Appearance Clear, Urine pH 6.5, Ur Specific [place] 1.010, Urine Protein Negative, Urine Glucose (UA) 100 H, Urine Ketones Negative, Urine Blood Moderate H, Urine Nitrate Negative, Urine Bilirubin Negative, Urine Urobilinogen 0.2, Ur Leukocyte Esterase Negative, Urine RBC 5 - 10, Urine WBC 0 - 2, Ur Epithelial Cells 1 - 3, Urine Bacteria Few 06/09/17 07:27: POC Glucose (mg/dL) 187 H 06/09/17 05:30: Sodium 138, Potassium 4.4, Chloride 102, Carbon Dioxide 31, Anion Gap 9 L, BUN 14, Creatinine 0.4 L, Est GFR ( Amer) > 60, Est GFR ( Non-Af Amer) > 60, Random Glucose 210 H, Calcium 7.7 L, Total Bilirubin 0.5, AST 69 H, ALT 51, Alkaline Phosphatase 126, Total Protein 5.9, Albumin 2.9 L, Globulin 3.0, Albumin/Globulin Ratio 1.0 L 06/09/17 05:30: WBC 1.6 L*, RBC 3.47 L, Hgb 10.0 L, Hct 31.6 L, MCV 91.1, MCH 28.8, MCHC 31.6, RDW 15.1 H, Plt Count 70 L, MPV 10.2, Gran % 94.4 H, Lymph % ( Auto) 4.4 L, [place] % (Auto) 0.6 L, Eos % (Auto) 0.0 L, Baso % (Auto) 0.6, Gran # 1.51, Lymph # (Auto) 0.1 L, [place] # (Auto) 0.0 L, Eos # (Auto) 0.0, Baso # (Auto ) 0.01 06/08/17 21:05: POC Glucose (mg/dL) 236 H 06/08/17 15:29: POC Glucose (mg/dL) 188 H 06/08/17 05:06: POC Glucose (mg/dL) 184 H 06/08/17 04:30: Sodium 136, Potassium 3.4 L, Chloride 99, Carbon Dioxide 30, Anion Gap 11, BUN 11, Creatinine 0.5 L, Est GFR ( Amer) > 60, Est GFR ( Non-Af Amer) > 60, Random Glucose 201 H, Calcium 7.2 L, Total Bilirubin 0.5, AST 63 H, ALT 61 H, Alkaline Phosphatase 120, Total Protein 5.6 L, Albumin 2.8 L , Globulin 2.7, Albumin/Globulin Ratio 1.0 L 06/08/17 04:30: WBC 1.4 L*, RBC 3.54, Hgb 10.3 L, Hct 31.9 L, MCV 90.1, MCH 29.1 , MCHC 32.3, RDW 14.7 H, Plt Count 83 L, MPV 9.9, Gran % 88.2 H, Lymph % (Auto) 9.6 L, [place] % (Auto) 1.5, Eos % (Auto) 0.0 L, Baso % (Auto) 0.7, Gran # 1.20 L, Lymph # (Auto) 0.1 L, [place] # (Auto) 0.0 L, Eos # (Auto) 0.0, Baso # (Auto) 0.01 , Neutrophils % (Manual) 73 H, Band Neutrophils % 13 H*, Lymphocytes % (Manual) 12 L, Monocytes % (Manual) 1, Metamyelocytes % 1, Platelet Evaluation Low 06/08/17 04:30: Procalcitonin 5.49 H 06/07/17 19:02: Sodium 131 L, Potassium 3.4 L, Chloride 96 L, Carbon Dioxide 29 , Anion Gap 10, BUN 9, Creatinine 0.4 L, Est GFR ( Amer) > 60, Est GFR ( Non-Af Amer) > 60, Random Glucose 301 H* D, Calcium 7.2 L, Total Bilirubin 0.5, AST 65 H, ALT 66 H, Alkaline Phosphatase 133 H D, Lactate Dehydrogenase 2333 H, Total Creatine Kinase 66, Troponin I < 0.01, NT-Pro-B Natriuret Pep 1990 H, Total Protein 5.4 L, Albumin 3.0, Globulin 2.4, Albumin/Globulin Ratio 1.2 06/07/17 19:02: PT 14.6 H, INR 1.27 H, APTT 26.6 06/07/17 19:02: WBC 1.3 L*, RBC 3.70, Hgb 10.7 L, Hct 33.4 L, MCV 90.3, MCH 28.9 , MCHC 32.0, RDW 14.7 H, Plt Count 85 L, MPV 9.6, Gran % 89.6 H, Lymph % (Auto) 9.7 L, [place] % (Auto) 0.7 L, Eos % (Auto) 0.0 L, Baso % (Auto) 0.0, Gran # 1.20 L , Lymph # (Auto) 0.1 L, [place] # (Auto) 0.0 L, Eos # (Auto) 0.0, Baso # (Auto) 0.00 06/07/17 19:00: Influenza Typ A,B (EIA) Negative for flu a/b - RAD Interpretation Radiology Orders: 06/07/17 18:17 CHEST PORTABLE [RAD] Stat - Medication Orders Current Medication Orders: Acetaminophen (Tylenol 325mg Tab) 650 mg PO Q4H PRN PRN Reason: pain 4-10 Acetylcysteine (Acetylcysteine 20%) 4 ml IH [id number] KIMMY Last Admin: 06/13/17 03:22 Dose: Not Given Non-Admin Reason: Patient Refused Al Hydrox/Mg Hydrox/Simethicone (Maalox Plus 30 Ml) 30 ml PO Q4 PRN PRN Reason: Indigestion / Heartburn Last Admin: 06/12/17 17:23 Dose: 30 ml Albuterol/Ipratropium (Duoneb 3 Mg/0.5 Mg (3 Ml) Ud) 3 ml IH [id number] KIMMY Last Admin: 06/13/17 03:22 Dose: Not Given Non-Admin Reason: Patient Refused Alprazolam (Xanax) 0.5 mg PO BID [facility] Last Admin: 06/12/17 17:13 Dose: 0.5 mg Behavioural Document 06/12/17 17:13 RV (Rec: 06/12/17 17:13 RV [id number]) Maintenance Maintenance Dose Yes Nonmedicinal Nonmedicinal Interventions Redirect Therapeutic Communication See nurse's notes Behavior Behavior for Medication: Anxiety Alprazolam (Xanax) 1 mg PO HS KIMMY PRN Reason: Protocol Last Admin: 06/12/17 22:37 Dose: 1 mg Behavioural Document 06/12/17 22:37 SG (Rec: 06/12/17 22:37 SG [id number]) Maintenance Maintenance Dose Yes Al Hydrox/Mg Hydrox/Simethicone 30 ml/Diphenhydramine HCl 75 mg/Lidocaine 30 ml 0 ml PO Q2H PRN PRN Reason: Mouth/Throat Pain Last Admin: 06/10/17 14:38 Dose: 10 ml Dexamethasone (Decadron) 2 mg PO DAILY [facility] Famciclovir (Famvir) 500 mg PO Q8 KIMMY Stop: 06/15/17 10:00 Last Admin: 06/13/17 06:17 Dose: 500 mg Home Med (Home Med) 0 unit TOP 5XD [facility] Last Admin: 06/13/17 06:17 Dose: Vancomycin HCl (Vancomycin 1gm) 1 gm in 250 mls @ 167 mls/hr IVPB Q12H KIMMY PRN Reason: Protocol Last Admin: 06/12/17 20:32 Dose: 167 mls/hr eMAR Start Stop Document 06/12/17 20:32 SG (Rec: 06/12/17 20:32 SG [id number]) Intravenous Solution Start Date 06/12/17 Start Time 20:32 End Date 06/12/17 End time 22:02 Total Infusion Time 90 Meropenem/Sodium Chloride (Meropenem 1g/Ns 100ml Ivpb) 1 gm in 100 mls @ 100 mls/hr IVPB Q8 KIMMY PRN Reason: Protocol Stop: 06/17/17 22:05 Last Admin: 06/13/17 06:17 Dose: 100 mls/hr eMAR Start Stop Document 06/13/17 06:17 SG (Rec: 06/13/17 06:17 SG [id number]) Intravenous Solution Start Date 06/13/17 Start Time 06:17 End Date 06/13/17 End time 07:17 Total Infusion Time 60 Potassium Chloride (Potassium Chloride 10 Meq/100 Ml) 10 meq in 100 mls @ 50 mls/hr IVPB Q2H KIMMY Stop: 06/13/17 15:29 Insulin Human Regular (Humulin R Med) 0 units SC ACHS KIMMY PRN Reason: Protocol Last Admin: 06/12/17 21:30 Dose: Not Given Non-Admin Reason: Blood Sugar Parameter MAR Blood Glucose Document 06/12/17 21:30 SG (Rec: 06/12/17 21:30 SG [email or web address]) Blood Glucose Finger Stick Blood Glucose (70-120) 157 Subcutaneous Administrations Document 06/12/17 21:30 SG (Rec: 06/12/17 21:30 SG [email or web address]) Charges for Administration # of Subcutaneous Administrations 0 Lidocaine (Lidoderm) 2 ea TD [facility] Last Admin: 06/12/17 22:37 Dose: 2 ea MAR Transdermal Patch Site Document 06/12/17 22:37 SG (Rec: 06/12/17 22:37 SG [id number]) Transdermal Patch Site Transdermal Patch Site Left Lower Back Loratadine (Claritin) 10 mg PO [facility] Last Admin: 06/12/17 22:52 Dose: Not Given Non-Admin Reason: Patient Refused Montelukast Sodium (Singulair) 10 mg PO HS [facility] Last Admin: 06/12/17 22:52 Dose: Not Given Non-Admin Reason: Patient Refused Morphine Sulfate (Morphine Extended Release Tab) 30 mg PO Q12 [facility] Last Admin: 06/12/17 22:38 Dose: 30 mg MAR Pain Assessment Document 06/12/17 22:38 SG (Rec: 06/12/17 22:38 SG [id number]) Pain Reassessment Is this a pain reassessment? No Presence of Pain Presence of Pain Yes Morphine Sulfate (Morphine Immediate Release Tab) 15 mg PO Q6H [facility] Last Admin: 06/13/17 02:18 Dose: Not Given Non-Admin Reason: Patient Asleep Nicotine (Nicoderm Cq) 1 patch TD DAILY [facility] Last Admin: 06/12/17 09:32 Dose: 1 patch MAR Transdermal Patch Site Document 06/12/17 09:32 RV (Rec: 06/12/17 09:33 RV [id number]) Transdermal Patch Site Transdermal Patch Site Right Outer Upper Arm Re-Assess: MAR Transdermal Patch Removal Document 06/12/17 21:32 SG (Rec: 06/12/17 22:39 SG [id number]) Transdermal Patch Removal Removal of Transdermal Patch done? Yes Non-Formulary Medication (Desvenlafaxine Succinate) 50 mg PO BID [facility] Last Admin: 06/12/17 17:12 Dose: Ondansetron HCl (Zofran Odt) 4 mg PO TID PRN PRN Reason: Nausea/Vomiting Pantoprazole Sodium (Protonix Ec Tab) 40 mg PO 0600 [facility] Last Admin: 06/13/17 06:17 Dose: 40 mg Sodium Chloride ([place] Nasal [place]) 1 ml NS DAILY PRN PRN Reason: Nasal congestion Zolpidem Tartrate (Ambien) 5 mg PO HS [facility] PRN Reason: Protocol Last Admin: 06/12/17 22:38 Dose: Not Given Non-Admin Reason: Patient Refused Discontinued Medications Albuterol/Ipratropium (Duoneb 3 Mg/0.5 Mg (3 Ml) Ud) 3 ml IH STAT STA Stop: 06/07/17 18:20 Last Admin: 06/07/17 18:26 Dose: 3 ml Albuterol/Ipratropium (Duoneb 3 Mg/0.5 Mg (3 Ml) Ud) 3 ml IH STAT STA Stop: 06/07/17 18:21 Last Admin: 06/07/17 18:26 Dose: 3 ml Dexamethasone (Decadron) 4 mg PO 0800 [facility] Dexamethasone (Decadron) 4 mg PO Q12 [facility] Last Admin: 06/09/17 09:55 Dose: 4 mg Dexamethasone (Decadron) 2 mg PO Q12 [facility] Last Admin: 06/12/17 10:49 Dose: 2 mg Furosemide (Lasix) 20 mg IVP Q8 [facility] Last Admin: 06/09/17 13:57 Dose: 20 mg MAR Blood Pressure Document 06/09/17 13:57 SML (Rec: 06/09/17 14:08 SML [id number]) Blood Pressure Blood Pressure (100/60-150/90) 146/72 IVP Administration Document 06/09/17 13:57 SML (Rec: 06/09/17 14:08 SML [id number]) Charges for Administration # of IVP Administrations 1 Vancomycin HCl (Vancomycin 1gm) 1 gm in 250 mls @ 167 mls/hr IVPB STAT STA PRN Reason: Protocol Stop: 06/07/17 22:11 Last Admin: 06/07/17 22:15 Dose: 167 mls/hr eMAR Start Stop Document 06/07/17 22:15 BUSHRA (Rec: 06/07/17 22:15 [id number]) Intravenous Solution Start Date 06/07/17 Start Time 22:15 End Date 06/07/17 End time 23:45 Total Infusion Time 90 Piperacillin Sod/Tazobactam Sod (Zosyn 3.375 In Ns 100ml) 100 mls @ 200 mls/hr IVPB STAT STA PRN Reason: Protocol Stop: 06/07/17 21:11 Last Admin: 06/07/17 21:05 Dose: 200 mls/hr eMAR Start Stop Document 06/07/17 21:05 BUSHRA (Rec: 06/07/17 21:05 [id number]) Intravenous Solution Start Date 06/07/17 Start Time 21:05 End Date 06/07/17 End time 21:35 Total Infusion Time 30 Piperacillin Sod/Tazobactam Sod (Zosyn 3.375 In Ns 100ml) 100 mls @ 200 mls/hr IVPB Q6 KIMMY PRN Reason: Protocol Stop: 06/08/17 18:29 Last Admin: 06/08/17 17:17 Dose: 200 mls/hr eMAR Start Stop Document 06/08/17 17:17 RV (Rec: 06/08/17 17:17 RV [id number]) Intravenous Solution Start Date 06/08/17 Start Time 17:17 End Date 06/08/17 End time 18:17 Total Infusion Time 60 Metformin HCl (Glucophage Xr) 500 mg PO 0800,1800 KIMMY Last Admin: 06/08/17 08:30 Dose: 500 mg Morphine Sulfate (Morphine Immediate Release Tab) 15 mg PO QID PRN PRN Reason: Pain, severe (8-10) Last Admin: 06/10/17 12:37 Dose: 15 mg [facility] Pain Assessment Document 06/10/17 12:37 VS (Rec: 06/10/17 12:38 VS [id number]) Pain Reassessment Is this a pain reassessment? No Presence of Pain Presence of Pain Yes Pain Scale Used Pain Scale Used Numeric Location Pain Location Body Site Back Description Description Constant Pain Behavior Moaning Alleviating Factors/Management Medication Techniques Alleviating Factors Medication Re-Assess: [facility] Pain Assessment Document 06/10/17 13:37 VS (Rec: 06/10/17 13:55 VS [id number]) Pain Reassessment Is this a pain reassessment? Yes Sleep Is patient sleeping during reassessment? Yes Nicotine (Nicoderm Cq) 1 patch TD DAILY KIMMY Potassium Chloride (K-Dur 20 Meq Er Tab) 40 meq PO ONCE ONE Stop: 06/08/17 14:14 Last Admin: 06/08/17 15:03 Dose: 40 meq - Scribe Statement The provider has reviewed the documentation as recorded by the Luz Ahn Provider Scribe Attestation: All medical record entries made by the Taurusibrussell were at my direction and personally dictated by me. I have reviewed the chart and agree that the record accurately reflects my personal performance of the history, physical exam, medical decision making, and the department course for this patient. I have also personally directed, reviewed, and agree with the discharge instructions and disposition. Disposition/Present on Arrival - Present on Arrival Any Indicators Present on Arrival: No History of DVT/PE: No History of Uncontrolled Diabetes: Yes Urinary Catheter: No History of Decub. Ulcer: No History Surgical Site Infection Following: None - Disposition Have Diagnosis and Disposition been Completed?: Yes Diagnosis: COPD (chronic obstructive pulmonary disease), Pneumonia Disposition: HOSPITALIZED Disposition Time: 07:00 Condition: FAIR
[2017-06-07 19:17] LABS: GRAN # 1.2 (1.4-6.5); GRAN % 89.6 % (50.0-68.0); HEMOGLOBIN 10.7 g/dL (12.0-16.0); LYMPH # 0.1 (1.2-3.4); LYMPH % 9.7 % (22.0-35.0); MEAN CELL VOLUME 90.3 fl (80.0-105.0); MEAN CORPUSCULAR HEMOGLOBIN 28.9 pg (25.0-35.0); MEAN PLATELET VOLUME 9.6 fl (7.0-11.0); MONO % 0.7 % (1.0-6.0); RBC 3.7 10^6/uL (3.5-6.1); RED CELL DISTRIBUTION WIDTH 14.7 % (11.5-14.5)
[2017-06-07 19:22] LABS: WHITE BLOOD COUNT 1.3 10^3/ul (4.5-11.0)
[2017-06-07 19:35] LABS: INR 1.27 (0.93-1.08); PARTIAL THROMBOPLASTIN TIME 26.6 Seconds (25.1-36.5); PROTHROMBIN TIME 14.6 SECONDS (9.4-12.5)
[2017-06-07 20:01] LABS: TROPONIN I < 0.01 ng/mL
[2017-06-07 20:24] LABS: ALB/GLOB RATIO 1.2 (1.1-1.8); ALT/SGPT 66 U/L (7-56); AST/SGOT 65 U/L (14-36); B-TYPE NATRIURETIC PEPTIDE 1990 pg/mL (0-450); BLOOD UREA NITROGEN 9 mg/dL (7-21); CALCIUM 7.2 mg/dL (8.4-10.5); GFR AFRICAN-AMERICAN > 60; GFR NON-AFRICAN AMERICAN > 60
[2017-06-07] MEDS ORDERED: Piperacillin/Tazobact 3.375 gm 100 ML IVPB STA (20:42)
[2017-06-07] MEDS ORDERED: Vancomycin 1gm in NS 250ml 1 GM/250 ML BAG IVPB STA (20:42)
[2017-06-07] MEDS: Morphine 30 mg SR Tab PO SCH (23:43)
[2017-06-08 05:39] LABS: BASO # 0.01 K/mm3 (0.0-2.0); BASO % 0.7 % (0.0-3.0); GRAN % 88.2 % (50.0-68.0); HEMOGLOBIN 10.3 g/dL (12.0-16.0); LYMPH # 0.1 (1.2-3.4); LYMPH % 9.6 % (22.0-35.0); MEAN CELL VOLUME 90.1 fl (80.0-105.0); MEAN CORPUSCULAR HEMOGLOBIN 29.1 pg (25.0-35.0); MEAN CORPUSCULAR HGB CONC 32.3 g/dl (31.0-37.0); MEAN PLATELET VOLUME 9.9 fl (7.0-11.0); MONO % 1.5 % (1.0-6.0); PLATELET COUNT 83 10^3/uL (120.0-450.0); RBC 3.54 10^6/uL (3.5-6.1); RED CELL DISTRIBUTION WIDTH 14.7 % (11.5-14.5)
[2017-06-08 05:52] LABS: WHITE BLOOD COUNT 1.4 10^3/ul (4.5-11.0)
[2017-06-08 06:22] LABS: ALBUMIN 2.8 g/dL (3.0-4.8); ALT/SGPT 61 U/L (7-56); AST/SGOT 63 U/L (14-36); BLOOD UREA NITROGEN 11 mg/dL (7-21); CALCIUM 7.2 mg/dL (8.4-10.5); GFR AFRICAN-AMERICAN > 60; GFR NON-AFRICAN AMERICAN > 60
[2017-06-08] MEDS: Pantoprazole 40 mg EC Tab PO SCH (07:15)
[2017-06-08] MEDS: Albuterol-Ipratrop 3 mg / 0.5 (3 ml) UD IH SCH ×4 (07:15→20:06)
[2017-06-08 07:54] LABS: LYMPHOCYTE 12 % (22.0-35.0); NEUTROPHIL 73 % (50.0-70.0)
[2017-06-08 07:57] LABS: BAND 13 % (0-2); METAMYELOCYTE 1 %; MONOCYTE 1 % (1.0-6.0); PLATELET ESTIMATE LOW (NORMAL)
--- NOTE | 2017-06-08 08:43 | RAD ---
HISTORY: sob COMPARISON: Portable chest 05/27/2017. FINDINGS: Interval right matter port in position terminating at the right atrial region, by an apparent right internal jugular approach. LUNGS: An interval infiltrate or atelectasis is developed has developed at the right lower lobe with borderline atelectasis or infiltrate in the medial left base. PLEURA: No significant pleural effusion identified, no pneumothorax apparent. Chronic thickening of the minor fissure again evident. CARDIOVASCULAR: Normal. OSSEOUS STRUCTURES: No significant abnormalities. VISUALIZED UPPER ABDOMEN: Normal. OTHER FINDINGS: None. IMPRESSION: Interval right lower lobe medial basilar atelectasis or infiltrate noted. Limited atelectasis or infiltrate is questioned at the medial left base as well.
--- NOTE | 2017-06-08 08:45 | CARD ---
APPROVED REPORT EKG Measurement Heart [id number] <Conclusion> Sinus rhythm with premature atrial complex Left axis deviation Left ventricular hypertrophy with QRS widening PRWP V 1 - 6, possible due to lead placement STTW changes
--- NOTE | 2017-06-08 10:12 | CON ---
DATE: 06/07/2017 REFERRING PHYSICIAN: Dr. Puente. REASON FOR CONSULTATION: Right lower lobe infiltrate, cough, shortness of breath. 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 Today was the second day of chemotherapy in the Oncology Clinic; post chemo, had cough and shortness of breath. She received two nebulizer treatments in the Oncology Clinic feeling better. No hemoptysis. No hematemesis. No hematuria or diarrhea. Does have a leg swelling. PAST MEDICAL HISTORY: As per history of present illness. ALLERGIES: SULFA. SOCIAL HISTORY: Recently stopped smoking. Denies any alcohol use. FAMILY HISTORY: No significant cardiopulmonary disease reported. MEDICATIONS: She is on Xanax 0.5 mg twice a day, Ambien 5 mg at bedtime p.r.n., Decadron 4 mg daily, receiving desvenlafaxine 50 mg twice a day, DuoNeb q. 6 hours, Glucophage XR 500 mg twice a day, , levocetirizine 5 mg at bedtime, Lidoderm patch to the affected area, morphine extended release 30 mg q.12 hours, morphine immediate release 60 mg q.i.d., Protonix 40 mg daily, Zofran p.r.n., Tylenol p.r.n. and Singulair 10 mg daily. REVIEW OF SYSTEMS: No headache, no rhinitis. Has cough, some shortness of breath. No chest pain. No abdominal pain. No dysuria. Does have leg swelling. PHYSICAL EXAMINATION GENERAL: Lying in the recliner. VITAL SIGNS: Temperature is 98, heart rate is 93, respiratory rate is 22, blood pressure is 145/50, pulse ox is 92% on nasal cannula. HEENT: Moist mucous membranes. Crowded airway. Mallampati score is 4. NECK: Supple. No JVD. LUNGS: Have crackles on the bases. Scattered rhonchi. HEART: S1 and S2. ABDOMEN: Soft, nontender. No organomegaly. EXTREMITIES: edema. NEUROLOGICAL: Awake, alert. Follows simple commands. LABORATORY DATA: Shows sodium 131, potassium 3.4, chloride 96, bicarbonate 29, BUN is 9, creatinine is 0.4, glucose is 301, calcium is 7.2. AST 65, ALT 66, alkaline phosphatase is 133, LDH 2333. Troponin less than 0.01. ProBNP 1990. Total protein 5.4. Albumin 3.0. Influenza A and B is negative. IMPRESSION AND PLAN: Small cell metastatic cancer, on chemotherapy; chronic obstructive lung disease; hypertension; diabetes; status post influenza infection; has a right lower lobe infiltrate, also has a component of heart failure. Case discussed with Dr. Puente who agrees with the present management. We will increase steroids. Continue antibiotics. We will give Lasix 20 mg q. 8 hours, supplement oxygen. Followup labs in the morning. We will order proBNP and procalcitonin for the morning. We will order echocardiogram to assess left ventricular and right ventricular function. Thank you and we will follow with you. Robert Eastman MD
--- NOTE | 2017-06-08 10:13 | CP.PCM.HP ---
History of Present Illness - History of Present Illness History of Present Illness: Lex Andino D.O. PGY-2, Internal Medicine Resident, Hem/Onc, H&P 72 year old female with a PMH of stage IV small cell lung cancer recently started chemotherapy with carboplatin and etoposide who presents after she had her third dose for some shortness of breath, congestion, and a period of altered sensorium. Patient was evaluated before aforementioned regimen and did have some wheezing and crackles and received both respiratory nebulizer treatments and 20mg of IV lasix. Patient states that she did feel some relief but shortly thereafter had an issue where she couldn't understand people and it felt as though they weren't speaking Mongolian. Patient was accompanied by her son in the ER and received IV steroids and empiric antibiotics. Patient when seen states that she does feel better at this time, is not confused, but overall is still not feeling great. Patient states that the nasal cannula does help her breathing somewhat, as do the nebulizers. No other complaints noted at this time. Present on Admission - Present on Admission Any Indicators Present on Admission: No Review of Systems - Review of Systems All systems: reviewed and no additional remarkable complaints except - Respiratory Respiratory: Chest Congestion Past Patient History - Infectious Disease Hx of Infectious Diseases: None - Past Social History Smoking Status: Former Smoker - CARDIAC Hx Pacemaker: No - PULMONARY Hx Respiratory Disorders: No - NEUROLOGICAL Hx Neurological Disorder: No - HEENT Hx HEENT Problems: No - RENAL Hx Chronic Kidney Disease: No - ENDOCRINE/METABOLIC Hx Diabetes Mellitus Type 2: Yes - HEMATOLOGICAL/ONCOLOGICAL Hx Blood Transfusions: No - INTEGUMENTARY Hx Dermatological Problems: No - MUSCULOSKELETAL/RHEUMATOLOGICAL Hx Arthritis: Yes Hx Falls: No - GASTROINTESTINAL Hx Gastrointestinal Disorders: No - GENITOURINARY/GYNECOLOGICAL Hx Genitourinary Disorders: Yes - PSYCHIATRIC Hx Psychophysiologic Disorder: Yes Hx Anxiety: Yes Hx Depression: Yes Hx Substance Use: No - SURGICAL HISTORY Hx Orthopedic Surgery: Yes (R KNEE) - ANESTHESIA Hx Anesthesia Reactions: No Hx Malignant Hyperthermia: No Meds Allergies/Adverse Reactions: Allergies Allergy/AdvReac Type Severity Reaction Status Date / Time Sulfa (Sulfonamide Allergy ANAPHYLAXIS Verified 05/26/17 19:50 Antibiotics) Physical Exam - Constitutional Appears: Non-toxic, No Acute Distress, Chronically Ill - Head Exam Head Exam: ATRAUMATIC, NORMOCEPHALIC - Eye Exam Eye Exam: EOMI, PERRL - ENT Exam ENT Exam: Mucous Membranes Moist - Neck Exam Neck exam: Positive for: Normal Inspection - Respiratory Exam Respiratory Exam: Clear to Auscultation Bilateral, Rales, Rhonchi, Wheezes. absent: Accessory Muscle Use, Respiratory Distress - Cardiovascular Exam Cardiovascular Exam: RRR, +S1, +S2. absent: Gallop, Rubs - GI/Abdominal Exam GI & Abdominal Exam: Normal Bowel Sounds, Soft. absent: Distended, Tenderness - Extremities Exam Extremities exam: Positive for: pedal edema (trace). Negative for: calf tenderness - Back Exam Back exam: absent: CVA tenderness (L), CVA tenderness (R), paraspinal tenderness - Neurological Exam Neurological exam: Alert, Oriented x3 - Psychiatric Exam Psychiatric exam: Normal Affect, Normal Mood - Skin Skin Exam: Dry, Warm Results - Vital Signs Recent Vital Signs: Last Vital Signs Temp 97.8 F 06/08/17 07:37 Pulse 100 H 06/08/17 07:37 Resp 22 06/08/17 07:37 BP 146/82 06/08/17 07:37 Pulse Ox 95 06/08/17 07:37 - Labs Result Diagrams: 06/08/17 04:30 06/08/17 04:30 Labs: Laboratory Results - last 24 hr 06/08/17 06/08/17 06/08/17 04:30 04:30 05:06 WBC 1.4 L* RBC 3.54 Hgb 10.3 L Hct 31.9 L MCV 90.1 MCH 29.1 MCHC 32.3 RDW 14.7 H Plt Count 83 L MPV 9.9 Gran % 88.2 H Lymph % (Auto) 9.6 L [place] % (Auto) 1.5 Eos % (Auto) 0.0 L Baso % (Auto) 0.7 Gran # 1.20 L Lymph # (Auto) 0.1 L [place] # (Auto) 0.0 L Eos # (Auto) 0.0 Baso # (Auto) 0.01 Neutrophils % (Manual) 73 H Band Neutrophils % 13 H* Lymphocytes % (Manual) 12 L Monocytes % (Manual) 1 Metamyelocytes % 1 Platelet Evaluation Low Sodium 136 Potassium 3.4 L Chloride 99 Carbon Dioxide 30 Anion Gap 11 BUN 11 Creatinine 0.5 L Est GFR ( Amer) > 60 Est GFR (Non-Af Amer) > 60 POC Glucose (mg/dL) 184 H Random Glucose 201 H Calcium 7.2 L Total Bilirubin 0.5 AST 63 H ALT 61 H Alkaline Phosphatase 120 Total Protein 5.6 L Albumin 2.8 L Globulin 2.7 Albumin/Globulin Ratio 1.0 L Assessment & Plan - Assessment and Plan (Free Text) Assessment: 72 year old female with a PMH of stage IV small cell lung cancer recently started chemotherapy with carboplatin and etoposide who presents after she had her third dose for some shortness of breath, congestion Plan: Stage IV small cell lung cancer Chest congestion SOB Given her current regimen, possible patient has infectious etiology, particularly given bandemia, suspicion for CAP vs inflammatory response Started on empiric antibiotics Pulm consulted Procalcitonin pending ANC 1204, Hgb and platelets stable Will start granix today PT Incentive spirometer Started mucomyst Will follow closely Patient was seen and examined and case was discussed in detail with attending physician - Date & Time Date: 06/08/17 Time: 07:50
[2017-06-08] MEDS: Morphine 30 mg SR Tab PO SCH ×2 (11:22→21:16)
[2017-06-08] MEDS: Vancomycin 1gm in NS 250ml 1 GM/250 ML BAG IVPB SCH ×2 (11:59→20:44)
[2017-06-08] MEDS: Piperacillin/Tazobact 3.375 gm 100 ML IVPB SCH ×2 (14:06→17:17)
[2017-06-08] MEDS ORDERED: Potassium Chloride 20 mEq ER Tab PO ONE (14:13)
[2017-06-08] MEDS ORDERED: Influenza Vaccine 60 mcg/0.5 mL SYR (4YR UP) IM ONE (14:53)
[2017-06-08] MEDS: DESVENLAFAXINE SUCCINATE 50 MG PO SCH (17:16)
[2017-06-08] MEDS: Insulin Reg-MEDIUM-Coverage SC SCH ×2 (17:16→22:17)
[2017-06-08] MEDS: Alum-Mag Hydrox-Simethicone Susp (30 mL) PO PRN (18:35)
[2017-06-08] MEDS: Acetylcysteine 20% Inhal Soln (4ml) IH SCH (20:06)
[2017-06-08] MEDS: Lidocaine 5% Patch TD SCH (21:17)
[2017-06-08] MEDS: Meropenem 1g/NS 100mL IVPB 1 GM/100 ML PIGGYBACK IVPB SCH (22:23)
--- NOTE | 2017-06-09 02:21 | PN ---
DATE: 06/08/2017 REFERRING PHYSICIAN: Dr. Puente. SUBJECTIVE: The patient is lying in the bed, head at 45 degrees. Feels much better. Decreased cough. Decreased shortness of breath. Decreased back pain. No nausea. No vomiting. No diarrhea. No leg pain or leg swelling. OBJECTIVE: GENERAL: In no acute distress. VITAL SIGNS: Temperature is 98, heart rate is 90, respiratory rate is 20, blood pressure 145/76, pulse ox 95% on room air. HEENT: Moist mucous membranes. Crowded airway. NECK: Supple. No JVD. LUNGS: Has fair airflow with few crackles over the bases. HEART: S1 and S2. ABDOMEN: Soft, nontender. No organomegaly. EXTREMITIES: No edema. NEUROLOGICAL: Awake and alert. Follows simple commands. MEDICATIONS: She is on Mucomyst 20% inhaled q.6 hours, Ambien 5 mg at bedtime p.r.n., Claritin 10 mg daily, Decadron 4 mg twice daily, desvenlafaxine succinate 50 mg twice a day, DuoNeb q.6 hours, around the clock insulin coverage, Lasix 20 mg q.8 hours, Lidoderm patch at bedtime, MiraLax 17 g q.4 hours p.r.n., has Magic solution to the mouth q.2 hours p.r.n., morphine sulfate 30 mg q.12 hours extended release, morphine immediate release 50 mg four times a day p.r.n., Nicoderm patch daily, nasal saline one spray to each nostril p.r.n., Protonix 40 mg daily, Singulair 10 mg daily, Tylenol p.r.n. basis, vancomycin 1 g IV q.12 hours, Xanax 1 mg at bedtime, Xanax 0.5 mg twice a day around the clock, Zofran on p.r.n. basis. LABORATORY DATA: Shows hemoglobin 10.3, hematocrit 31.9, WBC 1.4, platelet is 83. Sodium 136, potassium 3.4, chloride 99, bicarbonate 30, BUN 11, creatinine 0.5, glucose 201, calcium is 7.2, AST 63, ALT 61, alk phos is 120, total protein 5.6, albumin is 2.8, procalcitonin 5.49. IMPRESSION AND PLAN: Small cell metastatic disease involving liver, bone, lungs, status post chemotherapy, pulmonary infiltrate, heart failure, hypertension, diabetes, status post influenza infection, may have sleep apnea syndrome. We will continue antibiotics. Keep head at 45 degrees. Continue steroids, diuretics, gastric prophylaxis, sequential compression device to lower extremity, pending echocardiogram, left ventricular and right ventricular function. Followup labs in the morning. Thank you. We will follow with you. Robert Eastman MD
[2017-06-09] MEDS: Albuterol-Ipratrop 3 mg / 0.5 (3 ml) UD IH SCH ×4 (02:57→21:30)
[2017-06-09] MEDS: Acetylcysteine 20% Inhal Soln (4ml) IH SCH ×4 (02:58→21:30)
[2017-06-09] MEDS: Morphine 15 mg Immediate Release Tab PO PRN ×2 (02:58→12:21)
[2017-06-09 06:09] LABS: BASO # 0.01 K/mm3 (0.0-2.0); BASO % 0.6 % (0.0-3.0); GRAN # 1.51 (1.4-6.5); GRAN % 94.4 % (50.0-68.0); LYMPH # 0.1 (1.2-3.4); LYMPH % 4.4 % (22.0-35.0); MEAN CELL VOLUME 91.1 fl (80.0-105.0); MEAN CORPUSCULAR HEMOGLOBIN 28.8 pg (25.0-35.0); MEAN CORPUSCULAR HGB CONC 31.6 g/dl (31.0-37.0); MEAN PLATELET VOLUME 10.2 fl (7.0-11.0); MONO % 0.6 % (1.0-6.0); RBC 3.47 10^6/uL (3.5-6.1); RED CELL DISTRIBUTION WIDTH 15.1 % (11.5-14.5)
[2017-06-09 06:12] LABS: WHITE BLOOD COUNT 1.6 10^3/ul (4.5-11.0)
[2017-06-09 06:44] LABS: ALBUMIN 2.9 g/dL (3.0-4.8); ALT/SGPT 51 U/L (7-56); AST/SGOT 69 U/L (14-36); BLOOD UREA NITROGEN 14 mg/dL (7-21); CALCIUM 7.7 mg/dL (8.4-10.5); GFR AFRICAN-AMERICAN > 60; GFR NON-AFRICAN AMERICAN > 60
[2017-06-09] MEDS: Meropenem 1g/NS 100mL IVPB 1 GM/100 ML PIGGYBACK IVPB SCH ×3 (06:54→21:41)
[2017-06-09] MEDS: Vancomycin 1gm in NS 250ml 1 GM/250 ML BAG IVPB SCH ×2 (08:35→18:47)
[2017-06-09] MEDS: Insulin Reg-MEDIUM-Coverage SC SCH ×4 (08:35→21:40)
[2017-06-09 09:18] LABS: PH,URINE 6.5 (4.7-8.0); URINE BILIRUBIN NEGATIVE (NEGATIVE); URINE BLOOD MODERATE (NEGATIVE); URINE GLUCOSE (UA) 100 mg/dL (NEGATIVE); URINE LEUKOCYTE ESTERASE NEGATIVE Leu/uL (NEGATIVE); URINE NITRATE NEGATIVE (NEGATIVE); URINE PROTEIN NEGATIVE mg/dL (<30 mg/dL); URINE UROBILINOGEN 0.2 E.U./dL (<1 E.U./dL)
[2017-06-09 09:30] LABS: URINE APPEARANCE CLEAR (CLEAR); URINE COLOR YELLOW (YELLOW)
[2017-06-09 09:39] LABS: URINE BACTERIA FEW (NEG); URINE WBC 0 - 2 /hpf (0-6)
[2017-06-09] MEDS: Alum-Mag Hydrox-Simethicone Susp (30 mL) PO PRN (09:54)
[2017-06-09] MEDS: Aluminum Hydroxide/Magnesium 30 ML, DiphenhydrAMINE 75 MG, Lidocaine 2% Viscous 30 ML PO PRN (09:55)
[2017-06-09] MEDS: Morphine 30 mg SR Tab PO SCH ×2 (09:55→21:38)
[2017-06-09] MEDS: DESVENLAFAXINE SUCCINATE 50 MG PO SCH (09:56)
--- NOTE | 2017-06-09 14:47 | CT ---
PROCEDURE: CT Chest without contrast HISTORY: Pneumonia, lung CA COMPARISON: CT chest with IV contrast from 05/19/2017. TECHNIQUE: Contiguous axial images were obtained through the chest without intravenous contrast enhancement. Sagittal and coronal reconstructions were performed. Radiation dose (DLP): 373.00 mGy-cm. This CT exam was performed using one or more of the following dose reduction techniques: Automated exposure control, adjustment of the mA and/or kV according to patient size, and/or use of iterative reconstruction technique. FINDINGS: LUNGS: There is interval development of multifocal airspace disease in the left lung base and multifocal dense consolidation in the right lower lobe. Again seen is bulky soft tissue in the right hilum. MEDIASTINUM: There are bulky enlarged prevascular and precarinal lymph nodes, the aorta is not dilated. The heart is normal in size. PLEURA: There is small right and trace left pleural effusions. There are also multiple mid and lower pleural-based nodules. No pneumothorax. BONES: No fracture. No destructive lesion. Diffuse bone demineralization and multilevel degenerative changes in the spine. UPPER ABDOMEN: Limited evaluation with redemonstration of innumerable low-density masses in the liver. OTHER FINDINGS: None. IMPRESSION: 1. Interval development of multifocal pneumonia, worse in the right lower lobe with more dense consolidation. Small right and trace left pleural effusions. 2. Multifocal right mid and lower pleural based metastatic nodules. 3. Limited noncontrast CT redemonstrates bulky mediastinal and right hilar lymphadenopathy and liver metastasis.
--- NOTE | 2017-06-09 16:52 | CP.PCM.PN ---
Subjective - Date & Time of Evaluation Date of Evaluation: 06/09/17 Time of Evaluation: 11:00 - Subjective Subjective: Lex Andino D.O. PGY-2, Internal Medicine Resident, Hem/Onc, Progress Note 72 year old female with a PMH of stage IV small cell lung cancer recently started chemotherapy with carboplatin and etoposide who presented for some shortness of breath, congestion, and a period of altered sensorium. Patient was seen and examined at bedside. Breathing is somewhat improved. Denies fevers or chills. No acute overnight events. Objective - Vital Signs/Intake and Output Vital Signs (last 24 hours): Temp Pulse Resp BP Pulse Ox 97.7 F 93 H 20 146/72 98 06/09/17 06:00 06/09/17 10:00 06/09/17 06:00 06/09/17 13:57 06/09/17 06:00 Intake and Output: 06/09/17 06/09/17 06:59 18:59 Intake Total 925 Balance 925 - Medications Medications: Current Medications Acetaminophen (Tylenol 325mg Tab) 650 mg PO Q4H PRN PRN Reason: pain 4-10 Acetylcysteine (Acetylcysteine 20%) 4 ml IH [id number] [facility] Last Admin: 06/09/17 16:19 Dose: 4 ml Al Hydrox/Mg Hydrox/Simethicone (Maalox Plus 30 Ml) 30 ml PO Q4 PRN PRN Reason: Indigestion / Heartburn Last Admin: 06/09/17 09:54 Dose: 30 ml Albuterol/Ipratropium (Duoneb 3 Mg/0.5 Mg (3 Ml) Ud) 3 ml IH [id number] [facility] Last Admin: 06/09/17 16:17 Dose: 3 ml Alprazolam (Xanax) 0.5 mg PO BID KIMMY Last Admin: 06/09/17 09:55 Dose: 0.5 mg Alprazolam (Xanax) 1 mg PO HS KIMMY PRN Reason: Protocol Last Admin: 06/08/17 21:16 Dose: 1 mg Al Hydrox/Mg Hydrox/Simethicone 30 ml/Diphenhydramine HCl 75 mg/Lidocaine 30 ml 0 ml PO Q2H PRN PRN Reason: Mouth/Throat Pain Last Admin: 06/09/17 09:55 Dose: 5 ml Dexamethasone (Decadron) 4 mg PO Q12 [facility] Last Admin: 06/09/17 09:55 Dose: 4 mg Furosemide (Lasix) 20 mg IVP Q8 [facility] Last Admin: 06/09/17 13:57 Dose: 20 mg Vancomycin HCl (Vancomycin 1gm) 1 gm in 250 mls @ 167 mls/hr IVPB Q12H [facility]IM[facility] PRN Reason: Protocol Last Admin: 06/09/17 08:35 Dose: 167 mls/hr Meropenem/Sodium Chloride (Meropenem 1g/Ns 100ml Ivpb) 1 gm in 100 mls @ 100 mls/hr IVPB Q8 [facility] PRN Reason: Protocol Stop: 06/17/17 22:05 Last Admin: 06/09/17 13:53 Dose: 100 mls/hr Insulin Human Regular (Humulin R Med) 0 units SC ACHS [facility] PRN Reason: Protocol Last Admin: 06/09/17 12:22 Dose: 1 units Lidocaine (Lidoderm) 2 ea TD [facility] Last Admin: 06/08/17 21:17 Dose: 2 ea Loratadine (Claritin) 10 mg PO [facility] Last Admin: 06/08/17 21:18 Dose: 10 mg Montelukast Sodium (Singulair) 10 mg PO [facility] Last Admin: 06/08/17 21:18 Dose: 10 mg Morphine Sulfate (Morphine Extended Release Tab) 30 mg PO Q12 [facility] Last Admin: 06/09/17 09:55 Dose: 30 mg Morphine Sulfate (Morphine Immediate Release Tab) 15 mg PO QID PRN PRN Reason: Pain, severe (8-10) Last Admin: 06/09/17 12:21 Dose: 15 mg Nicotine (Nicoderm Cq) 1 patch TD DAILY [facility] Last Admin: 06/09/17 09:54 Dose: 1 patch Non-Formulary Medication (Desvenlafaxine Succinate) 50 mg PO BID [facility] Last Admin: 06/09/17 09:56 Dose: Not Given Ondansetron HCl (Zofran Odt) 4 mg PO TID PRN PRN Reason: Nausea/Vomiting Pantoprazole Sodium (Protonix Ec Tab) 40 mg PO 0600 [facility] Last Admin: 06/08/17 07:15 Dose: 40 mg Sodium Chloride ([place] Nasal [place]) 1 ml NS DAILY PRN PRN Reason: Nasal congestion Zolpidem Tartrate (Ambien) 5 mg PO HS [facility] PRN Reason: Protocol Last Admin: 06/08/17 23:05 Dose: Not Given - Labs Labs: PT 14.6 SECONDS (9.4-12.5) H 06/07/17 19:02 INR 1.27 (0.93-1.08) H 06/07/17 19:02 APTT 26.6 Seconds (25.1-36.5) 06/07/17 19:02 - Constitutional Appears: Non-toxic, No Acute Distress, Chronically Ill - Head Exam Head Exam: ATRAUMATIC, NORMOCEPHALIC - Eye Exam Eye Exam: EOMI, PERRL - ENT Exam ENT Exam: Mucous Membranes Moist - Neck Exam Neck exam: Positive for: Normal Inspection - Respiratory Exam Respiratory Exam: Clear to Auscultation Bilateral, Rales, Rhonchi, Wheezes. absent: Accessory Muscle Use, Respiratory Distress - Cardiovascular Exam Cardiovascular Exam: RRR, +S1, +S2. absent: Gallop, Rubs - GI/Abdominal Exam GI & Abdominal Exam: Normal Bowel Sounds, Soft. absent: Distended, Tenderness - Extremities Exam Extremities exam: Positive for: pedal edema (trace). Negative for: calf tenderness - Back Exam Back exam: absent: CVA tenderness (L), CVA tenderness (R), paraspinal tenderness - Neurological Exam Neurological exam: Alert, Oriented x3 - Psychiatric Exam Psychiatric exam: Normal Affect, Normal Mood - Skin Skin Exam: Dry, Warm Assessment and Plan - Assessment and Plan (Free Text) Assessment: 72 year old female with a PMH of stage IV small cell lung cancer recently started chemotherapy with carboplatin and etoposide who presented for some shortness of breath, congestion Plan: Multifocal pneumonia Stage IV small cell lung cancer s/p chemotherapy w/ carboplatin and etoposide Procalcitonin elevated On merrem and vanco per ID recs Afebrile Leukopenia improving Continue with granix Pulm following Continue nebulizers Patient was seen and examined and case was discussed in detail with attending physician
[2017-06-09] MEDS: Lidocaine 5% Patch TD SCH (21:39)
--- NOTE | 2017-06-10 01:22 | PN ---
DATE: 06/09/2017 REFERRING PHYSICIAN: Yosef Reis MD. SUBJECTIVE: She is lying in the bed, head at 45 degrees. Participating in therapy. Had a lot of back pain. Received morphine. Breathing is okay. Short of breath with exertion. No chest pain, no nausea, no vomiting. No leg pain or leg swelling. OBJECTIVE: GENERAL: In no acute distress. VITAL SIGNS: Temperature is 98, heart rate is 150, respiratory rate is 20, blood pressure 140/72, pulse ox 95% on nasal cannula. HEENT: Moist mucous membranes. Crowded airway. NECK: Supple. No JVD. LUNGS: Has a few scattered rhonchi's and crackles at the bases. HEART: S1 and S2. ABDOMEN: Soft, nontender. No organomegaly. EXTREMITIES: There is no edema. NEUROLOGICAL: Awake and alert. Follows simple commands. MEDICATIONS: She is on Mucomyst 20% inhaled q.6 hours, Ambien 5 mg at bedtime p.r.n., Claritin 10 mg at bedtime, Decadron 4 mg twice daily, desvenlafaxine succinate 50 mg twice a day, DuoNeb q.6 hours around the clock, Lasix 20 mg q.8 hours, Lidoderm patch to affected area at bedtime, MiraLax 30 mL q.4 hours p.r.n., meropenem 1 g IV q.8 hours, morphine sulfate 30 mg q.12 hours extended release, morphine immediate release 50 mg four times a day p.r.n., Nicoderm patch daily, nasal saline one spray to each nostril daily p.r.n., Protonix 40 mg daily, Singulair 10 mg daily, Tylenol p.r.n., vancomycin 1 g IV q.12 hours, Xanax 1 mg at bedtime and also Xanax 0.5 mg twice a day, Zofran on p.r.n. basis. LABORATORY DATA: Shows hemoglobin 10.7, hematocrit 31.6, WBC 1.6, platelet is 70. Sodium 138, potassium 4.4, chloride 102, bicarbonate 31, BUN 14, creatinine 0.4, glucose 210, calcium is 7.7, AST 69, ALT 51, alk phos is 126, albumin is 2.9. Had a CAT scan of the chest done today, which shows development of multifocal pneumonia, right more than the left, also has small pleural effusion. There is also sign of multifocal right mid and lower pleural base metastatic nodules. There is bulky mediastinal right hilar adenopathy and liver metastatic disease. IMPRESSION AND PLAN: Health-care associated pneumonia, small cell cancer with mediastinal adenopathy, bony mets and liver metastatic disease, chronic obstructive lung disease, hypertension, diabetes, recently had influenza infection. From a Pulmonary point of view, feeling better. Continue antibiotics. Continue p.o. and inhaled bronchodilator. Gastric prophylaxis. Sequential compression devices to lower extremity. Out of bed as tolerated. Followup labs. Thank you. We will follow with you. Robert Eastman MD
[2017-06-10] MEDS: Albuterol-Ipratrop 3 mg / 0.5 (3 ml) UD IH SCH ×4 (02:32→20:10)
[2017-06-10] MEDS: Acetylcysteine 20% Inhal Soln (4ml) IH SCH ×4 (02:32→20:09)
--- NOTE | 2017-06-10 04:47 | CON ---
DATE: LOCATION: Patient was seen earlier today in 364, bed 1. CHIEF COMPLAINT: Shortness of breath and cough times several days. HISTORY OF PRESENT ILLNESS: This is a 72-year-old female with obesity, BMI of 30, with diabetes mellitus, hypertension, depression, low back tumor, with VRE urinary tract infection, recent hospitalization with influenza. 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 No abdominal pain, diarrhea or constipation. No bright red blood per rectum. No melena. No dysuria or frequency. 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 PAST SURGICAL HISTORY: Significant for right knee surgery. ALLERGIES: PATIENT IS ALLERGIC TO SULFA. MEDICATIONS AT HOME: Include Ambien. PHYSICAL EXAMINATION VITAL SIGNS: Patient's temperature is 98, blood pressure 120/70, respiratory rate of 22, heart rate of 91. HEENT: Unremarkable. NECK: Supple. LUNGS: Have decreased breath sounds. HEART: Normal S1 and S2. ABDOMEN: Soft. LABORATORY DATA: Reveals a white count of 1.6, hemoglobin of 10. Patient does have 13% bandemia, and platelets are noted. Chemistries reveals a BUN of 14, creatinine of 0.4, procalcitonin is 5.49. Urinalysis is noted. Influenza is negative. Microbiology is noted. CAT scan of the chest is reviewed with multifocal pneumonia. 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 Patient with stage IV cancer with tachycardia, dyspnea, positive infiltrates, leukopenia, 13% bandemia. Sepsis with procalcitonin of 5.49, probable bacterial Gram-positive cocci versus Gram-negative [facility]-associated pneumonia of right lower lobe. We will treat the patient with vancomycin, meropenem, pending krueger-culture. We will follow closely with you. Jorge Luis Hernandez MD [facility] # [id number]
[2017-06-10] MEDS: Meropenem 1g/NS 100mL IVPB 1 GM/100 ML PIGGYBACK IVPB SCH ×3 (05:25→21:08)
[2017-06-10] MEDS: Pantoprazole 40 mg EC Tab PO SCH (05:25)
[2017-06-10 07:06] LABS: HEMOGLOBIN 9.3 g/dL (12.0-16.0); MEAN CELL VOLUME 90.8 fl (80.0-105.0); MEAN CORPUSCULAR HEMOGLOBIN 28.4 pg (25.0-35.0); MEAN CORPUSCULAR HGB CONC 31.3 g/dl (31.0-37.0); MEAN PLATELET VOLUME 10.4 fl (7.0-11.0); RBC 3.27 10^6/uL (3.5-6.1); RED CELL DISTRIBUTION WIDTH 15.2 % (11.5-14.5)
[2017-06-10 07:14] LABS: ALBUMIN 2.8 g/dL (3.0-4.8); ALT/SGPT 50 U/L (7-56); AST/SGOT 53 U/L (14-36); BLOOD UREA NITROGEN 18 mg/dL (7-21); CALCIUM 7.8 mg/dL (8.4-10.5); GFR AFRICAN-AMERICAN > 60; GFR NON-AFRICAN AMERICAN > 60
[2017-06-10 07:29] LABS: WHITE BLOOD COUNT 1.1 10^3/ul (4.5-11.0)
[2017-06-10] MEDS: Insulin Reg-MEDIUM-Coverage SC SCH ×4 (07:58→21:44)
[2017-06-10] MEDS: Vancomycin 1gm in NS 250ml 1 GM/250 ML BAG IVPB SCH ×2 (07:59→19:58)
[2017-06-10] MEDS: Morphine 30 mg SR Tab PO SCH ×2 (11:11→21:07)
[2017-06-10 12:12] LABS: EOS % 1.7 % (1.5-5.0); GRAN # 1.1 (1.4-6.5); GRAN % 90.9 % (50.0-68.0); LYMPH # 0.1 (1.2-3.4); LYMPH % 7.4 % (22.0-35.0)
[2017-06-10] MEDS: Morphine 15 mg Immediate Release Tab PO PRN (12:37)
[2017-06-10] MEDS: Morphine 15 mg Immediate Release Tab PO SCH ×2 (13:56→20:00)
[2017-06-10] MEDS: DESVENLAFAXINE SUCCINATE 50 MG PO SCH ×2 (13:56→18:37)
[2017-06-10] MEDS: Aluminum Hydroxide/Magnesium 30 ML, DiphenhydrAMINE 75 MG, Lidocaine 2% Viscous 30 ML PO PRN (14:38)
[2017-06-10] MEDS: ACYCLOVIR 5% TOP SCH ×3 (18:40→21:10)
[2017-06-10] MEDS: Lidocaine 5% Patch TD SCH (21:08)
--- NOTE | 2017-06-10 22:26 | PN ---
DATE: 06/10/2017 SUBJECTIVE: The patient is in bed, in no acute distress, nontoxic. No fevers. PHYSICAL EXAMINATION: VITAL SIGNS: Temperature is 98, blood pressure is 160/90, respiratory rate of 18, heart rate of 82. HEENT: Unremarkable. NECK: Supple. LUNGS: Have decreased breath sounds. HEART: Normal S1, S2. ABDOMEN: Soft, nontender. LABORATORY DATA: Reveals a white count of 1.1, hemoglobin of 9, platelets of 70 with 13% bandemia. Chemistry reveals a BUN of 18, creatinine of 0.4. Procalcitonin is 5.49. Urinalysis is noted. Serology for influenza is negative. Microbiology reveals a blood culture with no growth. Urine culture have no growth. Review of orders reveals the patient to be on meropenem and vancomycin. The patient's CAT scan of the chest is reviewed. Multifocal pneumonia is noted. 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 Patient's vancomycin is given at 7:30 at night and 7:30 morning. We will order vancomycin trough level tomorrow. An hour before tomorrow's dose, we will check on the levels. Jorge Luis Hernandez MD
--- NOTE | 2017-06-10 23:29 | PN ---
DATE: 06/10/2017 PULMONARY PROGRESS NOTE REFERRING PHYSICIAN: Dr. Puente. SUBJECTIVE: The patient is lying in the bed, head at 45 degrees. Family friend at bedside. Night was unremarkable. No headache. No rhinitis. Mild cough. No chest pain. Still has low back pain. No abdominal pain. No nausea. No diarrhea. Leg swelling has improved. OBJECTIVE: GENERAL: In no acute distress. VITAL SIGNS: Temperature is 98, heart rate is 82, respiratory rate is 19, blood pressure 163/91, pulse ox 95% on nasal cannula. HEENT: Moist mucous membranes. Crowded airway. Mallampati score is IV. NECK: Supple. No JVD. LUNGS: Have few crackles, scattered rhonchi. HEART: S1 and S2. ABDOMEN: Soft, nontender. No organomegaly. EXTREMITIES: There is trace edema. NEUROLOGICAL: Awake and alert. Follows simple commands. MEDICATIONS: She is on Mucomyst inhaled q.6 hours, Ambien 5 mg at bedtime p.r.n., Claritin 10 mg at bedtime, Decadron 2 mg twice a day, desvenlafaxine 50 mg twice a day, DuoNeb q.6 hours, Famvir 500 mg q.8 hours restarted, also on lidocaine patch at affected area, simethicone 30 mL q.4 hours p.r.n., getting Magic oral solution swish and spit q.12 hours p.r.n., morphine extended release 30 mg q.12 hours [id number], morphine immediate release 50 mg q.6 hours p.r.n., Nicoderm patch daily, nasal saline 2 sprays to each nostril daily, Protonix 40 mg daily, Singulair 10 mg daily, Tylenol p.r.n. basis, vancomycin 1 g IV q.12 hours, Xanax 1 mg at bedtime, Zofran on p.r.n. basis. LABORATORY DATA: Shows hemoglobin 9.3, hematocrit 29.7, WBC 1.1, platelet count is 66. Sodium 144, potassium 4.0, chloride 102, bicarbonate is 32, BUN 18, creatinine 0.4, glucose 250, calcium 7.8. AST 53, ALT 50, alk phos is 140, albumin is 2.8. Influenza antibodies are negative. Microbiology: Blood culture, urine culture, there is no growth. CAT scan of the chest had some pneumonia along with lung cancer. Echocardiogram done, report is pending. IMPRESSION AND PLAN: Metastatic small cell lung cancer involving lungs, liver, bone, status post chemotherapy, has pneumonia, leukopenia, anemia, obstructive lung disease, hypertension, diabetes, status post influenza. Case discussed with the patient and friends at the bedside. All the questions answered. I had a long discussion with Dr. Puente. For now, continue antibiotics covering healthcare-associated organism, keep head at 45 degrees, sleep apnea precaution, gastric prophylaxis, SCD to lower extremity. Thank you and we will follow with you. Robert Eastman MD
--- NOTE | 2017-06-10 23:42 | PN ---
DATE: ONCOLOGY PROGRESS NOTE LOCATION: The patient is in room 364, bed 1. SUBJECTIVE: The patient is examined, lying in bed, head at 45 degrees. The patient is in considerable pain as she just come back from an echocardiogram. She had to lay flat on a hard table. The patient had not required any immediate release morphine. She just tried a long acting MS Contin early this morning, told her that if she took the immediate release morphine, she would feel a little bit better and I told and instructed the nurse to do so. Breathing is okay. The patient has shortness of breath on exertion. She has not been sitting out of bed in the chair at this point in time. Denies any history of chest pain, nausea or vomiting. No leg pain or no leg swelling at this time. The patient has had no fevers, no chills also. OBJECTIVE: VITAL SIGNS: Stable. T-max of 98.4, heart rate is 110, respirations 20, blood pressure initially 160/92, repeat pressures have been 148/72, pulse ox is 95% on nasal cannula. Currently, the patient is off oxygen. HEENT: Head is normocephalic and atraumatic. Conjunctiva pale. Examination of the oropharynx revealed the patient to be edentulous. There are no oropharyngeal lesions noted. Tongue is moist. No ulcerations are noted. NECK: Supple. There is no adenopathy. No jugular venous distention noted. LUNGS: Reveals few scattered rhonchi and crackles at both bases. Right lung had good air entry at this time. CARDIOVASCULAR SYSTEM: Reveals S1 and S2 to be normal. No gallop or murmur is heard. ABDOMEN: Soft, nontender, protuberant. Liver and spleen are not palpable. No rebound, rigidity, or guarding is noted. EXTREMITIES: Reveals no cyanosis, clubbing, or any significant edema at this time. NEUROLOGIC: Reveals the patient to be awake, alert and oriented, in no acute distress. The patient is able to have intelligent conversation with me. Able to move all four extremities. MEDICATIONS: Were reviewed. She is on Mucomyst 20% inhaled q.6 hours, Ambien 5 mg at bedtime, Claritin 10 mg at bedtime, Decadron 4 mg twice a day, succinate 50 mg twice a day, DuoNeb q.6 is round the clock, Lasix 20 mg q.8 hours, Lidoderm patch to affected area on the chest wall at bedtime once a day, MiraLax 30 mL for constipation p.r.n., meropenem 1 g IV q.8 hours, morphine sulfate long acting 30 mg p.o. q.12 hours, morphine sulfate immediate release 15 mg four times a day as needed. Nicoderm 21 mg patch daily, nasal saline spray to each nostril p.r.n., Protonix 40 mg daily, Singulair 10 mg daily, Tylenol p.r.n., vancomycin 1 g IV q.12 hours, Xanax 1 mg at bedtime and Xanax 0.5 mg b.i.d. She is on Zofran p.r.n. She is taking her own home medicine of Pristiq 50 mg twice a day. She is taking her own home medicine for cholesterol. The hospital does not have it. LABORATORY DATA: From today were reviewed and they revealed the following: White count is 1.1 today with an ANC of 1.1. Hemoglobin is 9.3, hematocrit 29.7, platelet count is 70,000. This is a manual count. Chemistries were reviewed. Today's sodium is 141, K is 4, chloride 102, CO2 is 31, BUN is 18, creatinine 0.4, blood sugars have been running between 200 and 266 up to 300. She is on insulin coverage. She is off metformin because her counts are low. We afraid to have any impediments from the recovery of the count secondary to the metformin as well. AST and ALT are within normal limits. Alkaline phosphatase is elevated at 140. Total protein 5.6 and albumin of 2.8. A/G ratio is 1. Blood cultures have been negative at 48 hours. Urine cultures have been negative. The patient had a CAT scan of the abdomen done on 06/09 which showed the following: The CAT scan showed that there is interval development of multifocal airspace disease in the left lung base and multifocal dense consolidation in the right lower lobe. The mediastinum shows bulky enlarged and precarinal nodes. The heart is normal in size. Small right pleural effusion and left pleural effusion noted along with the infiltrate. The patient does hilar disease and liver metastasis which we know from before. The CAT scan was done mainly to see if there any progression of disease or any other changes in the lung per se, which was consistent with neutropenia and post chemotherapy findings. The patient is on SCD stockings to prevent the DVTs. She is on gastrointestinal prophylaxis. ASSESSMENT NOTES AND PLAN: The patient has ronda count, status post chemotherapy given five days ago and chemotherapy was given 80% of the dose and only two days of the etoposide was given, third day was held because of the rapidly dropping counts which could be related to her having, just a week ago, she had radiation therapy to the thoracic spine that may compounding the effects as far as the leukopenia and thrombocytopenia concerned. The patient has no difficulty in swallowing at this point and no difficulty with oral mucositis at this point. The patient definitely has multifocal pneumonia as a result of her leukopenia and as a result of her underlying illness as well for which she is on broad spectrum coverage with both vancomycin and meropenem which is a pretty decent coverage. Blood cultures to date have been negative. Urine cultures have been negative. We will be aggressive with the treatment with antibiotics as far as the lungs are concerned. We will repeat a scan in a few day, may be 3 to 5 days once the patient is clinically improved. We tried to make the MSIR in the meantime to four times a day on a scheduled basis and let the patient refuse or if the patient is drowsy. It looks like she requires one to two doses of the immediate release to keep her pain under control. Before the pain medicines were started, pain core was 8 to 9 and then after she got the pain medicine when I interviewed with her, may be an hour later, the patient's pain score was down to 3. At a long and detailed discussion with the patient, I also spoke to the daughter at great length who requested for the CDs and the x-ray reports from the visit that she had the first time to now. It appears she wants to get another opinion which I gladly encouraged to do so. The patient herself wants me to continue her treatment and to have me as a physician while she is in the hospital. We will try to comply with the wishes and continue her management. Labs for a.m. have been requested. Spoken to Dr. Eastman in great length. We will try to be aggressive in the posttreatment management and hopefully even with the reduced dose of the chemo, they are going to see some improvement in the moderate disease and overall improvement from her physical status point of view. Routine post-exam instructions have been given to the patient. Time spent with the patient greater than 80 minutes, out of which more than 50% of the time was spent in eye-to-eye contact regarding the patient's overall prognosis, what our treatment plans are, what the complications could be and what are the current situation issues that we are following with the patient to make it get better faster. Rudy Puente MD
[2017-06-11] MEDS: Acetylcysteine 20% Inhal Soln (4ml) IH SCH ×4 (01:04→19:46)
[2017-06-11] MEDS: Albuterol-Ipratrop 3 mg / 0.5 (3 ml) UD IH SCH ×4 (01:04→19:47)
[2017-06-11] MEDS: Morphine 15 mg Immediate Release Tab PO SCH ×6 (02:40→20:02)
[2017-06-11] MEDS: Pantoprazole 40 mg EC Tab PO SCH (05:07)
[2017-06-11] MEDS: Meropenem 1g/NS 100mL IVPB 1 GM/100 ML PIGGYBACK IVPB SCH ×3 (05:08→21:59)
[2017-06-11] MEDS: ACYCLOVIR 5% TOP SCH ×5 (05:10→21:52)
[2017-06-11 05:36] LABS: GRAN # 0.19 (1.4-6.5); GRAN % 61.3 % (50.0-68.0); HEMOGLOBIN 9.1 g/dL (12.0-16.0); LYMPH # 0.1 (1.2-3.4); LYMPH % 35.5 % (22.0-35.0); MEAN CORPUSCULAR HEMOGLOBIN 29.2 pg (25.0-35.0); MEAN PLATELET VOLUME 10.6 fl (7.0-11.0); MONO % 3.2 % (1.0-6.0); RBC 3.12 10^6/uL (3.5-6.1); RED CELL DISTRIBUTION WIDTH 15.2 % (11.5-14.5)
[2017-06-11 05:52] LABS: WHITE BLOOD COUNT 0.3 10^3/ul (4.5-11.0)
[2017-06-11 06:02] LABS: ALBUMIN 2.7 g/dL (3.0-4.8); ALT/SGPT 46 U/L (7-56); AST/SGOT 45 U/L (14-36); BLOOD UREA NITROGEN 16 mg/dL (7-21); CALCIUM 7.9 mg/dL (8.4-10.5); GFR AFRICAN-AMERICAN > 60; GFR NON-AFRICAN AMERICAN > 60
--- NOTE | 2017-06-11 08:16 | CARD ---
APPROVED REPORT EXAM: Two-dimensional and M-mode echocardiogram with Doppler and color Doppler. Other Information Quality : [employer] : INDICATION Congestive Heart Failure 2D DIMENSIONS IVSd1.2 (0.7-1.1cm)LVDd4.9 (3.9-5.9cm) PWd1.2 (0.7-1.1cm)LVDs3.3 (2.5-4.0cm) FS (%) 32.3 %LVEF (%)60.0 (>50%) M-Mode DIMENSIONS Left Atrium (MM)3.80 (2.5-4.0cm)Aortic Root3.60 (2.2-3.7cm) Aortic Cusp Exc.1.90 (1.5-2.0cm) Aortic Valve AoV Peak Qdwtxagz991.0cm/s Mitral Valve MV E Tqgorryb82.3cm/sMV E Peak Gr.141mmHgMV A Olsgksib482.0cm/s E/A ratio0.6 TDI Lateral E' Peak V13.30cm/sMedial E' Peak V8.19cm/sE/Lateral E'7.1 E/Medial E'11.5 Tricuspid Valve TR Peak Bsmbaboi785ii/sRAP TSPRFOME23gwAeAY Peak Gr.33mmHg ERIK25igIt LEFT VENTRICLE The left ventricle is normal size. There is normal left ventricular wall thickness. The left ventricular function is normal. The left ventricular ejection fraction is within the normal range. There is normal LV segmental wall motion. RIGHT VENTRICLE The right ventricle is normal size. ATRIA The left atrium size is normal. The right atrium size is normal. The interatrial septum is intact with no evidence for an atrial septal defect. AORTIC VALVE The aortic valve is normal in structure. MITRAL VALVE The mitral valve is mildly thickened but opens well. Mitral regurgitation is moderate. TRICUSPID VALVE The tricuspid valve is normal in structure. There is mild tricuspid regurgitation. PULMONIC VALVE The pulmonic valve is not well visualized. GREAT VESSELS The aortic root is normal in size. PERICARDIAL EFFUSION There is no pericardial effusion. <Conclusion> The left ventricle is normal size. There is normal left ventricular wall thickness. The left ventricular function is normal. Mitral regurgitation is moderate. There is mild tricuspid regurgitation.
[2017-06-11] MEDS: Vancomycin 1gm in NS 250ml 1 GM/250 ML BAG IVPB SCH ×2 (08:46→20:32)
[2017-06-11] MEDS: Insulin Reg-MEDIUM-Coverage SC SCH ×4 (08:47→21:51)
[2017-06-11] MEDS: Morphine 30 mg SR Tab PO SCH ×2 (10:14→22:00)
[2017-06-11] MEDS: DESVENLAFAXINE SUCCINATE 50 MG PO SCH ×2 (10:14→17:05)
--- NOTE | 2017-06-11 20:57 | PN ---
DATE: 06/11/2017 PULMONARY PROGRESS NOTE REFERRING PHYSICIAN: Dr. Puente. SUBJECTIVE: She is lying in the bed, head at 45 degrees. Night was unremarkable. Feels better. Decreased cough, decreased shortness of breath. No chest pain. Low back pain is better. No dysuria. No leg pain or leg swelling. OBJECTIVE: GENERAL: In no acute distress. VITAL SIGNS: Temperature is 98, heart rate 89, respiratory rate is 20, blood pressure 159/83, pulse ox of 93% on 2 liters nasal cannula. HEENT: Moist mucous membrane. Crowded airway. Mallampati score is 4. NECK: Supple. No JVD. LUNGS: Have a few crackles at bases. Scattered rhonchi. HEART: S1, S2. ABDOMEN: Soft, nontender, no organomegaly. EXTREMITIES: There is no edema. NEUROLOGIC: Awake, alert. Follows simple command. MEDICATIONS: She is on Mucomyst 20% inhaled q.6 hour, Ambien 5 mg at bedtime, Claritin 10 mg at bedtime, Decadron 2 mg twice a day, desvenlafaxine 50 mg twice a day, DuoNeb q. 6 hour, 500 mg q.8 hour, lidocaine patch on affected area, simethicone 30 mL q. 4 hour p.r.n., meropenem 1 g q. 8 hour, morphine 30 mg q. 12 hour, morphine sulfate 15 mg q. 6 hour, Nicoderm patch at affected area, nasal saline 2 spray to each nostril q. 6 hour, Protonix 40 mg daily, Singulair 10 mg daily, Tylenol p.r.n. basis, vancomycin 1 g IV q.12 hours, Xanax 0.5 mg twice a day, Zofran p.r.n. basis. LABORATORY DATA: Shows hemoglobin 9.1, hematocrit 28.4, WBC 0.3, platelet count is 51. Sodium 140, potassium 3.7, chloride 103, bicarbonate is 31, BUN 16, creatinine 0.4, glucose 206, calcium 7.9, AST 45, ALT 46, alk phos is 124. Albumin is at 2.7. Microbiology, blood culture, urine culture, there is no growth. Had echocardiogram done yesterday shows right ventricular systolic pressure is 43. Left ventricle function is normal. 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 Case discussed with Dr. Puente last night in detail. Agree with the present management. Continue antibiotics, bronchodilators, steroids, gastric prophylaxis. SCD to lower extremity. Need Granix type of medication to stimulate bone marrow. Thank you and we will follow with you. Robert Eastman MD
--- NOTE | 2017-06-11 21:38 | PN ---
DATE: 06/11/2017 SUBJECTIVE: Patient is in bed, in no acute distress, nontoxic. PHYSICAL EXAMINATION: VITAL SIGNS: Temperature is 97, blood pressure is 135/80, respiratory rate of 21. HEENT: Unremarkable. NECK: Supple. LUNGS: Decreased breath sounds. HEART: Normal S1, S2. ABDOMEN: Soft. LABORATORY EXAMINATION: Reveals the patient's white count is 0.3, hemoglobin of 9, platelets of 51, and patient initially had 13% bandemia. Chemistries reveal the patient has a BUN of 16, creatinine of 0.6, 0.4. Procalcitonin is 5.49. The urinalysis is noted. Vanco trough is 7. Influenza is negative. Microbiology reveals the blood cultures no growth. Urine cultures are no growth. Review of orders reveals the patient to be on vancomycin and meropenem. ASSESSMENT AND PLAN: This is a 72-year-old female with obesity, BMI of 30, diabetes, hypertension, depression, low back tumor, history of vancomycin-resistant Enterococcal urinary tract infection, recent hospitalization with influenza. 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 The patient has had chemotherapy and patient's vanco level was 7.1. Negative cultures. We will repeat her procalcitonin. Patient is leukopenic and neutropenic. We will make further recommendations. Jorge Luis Hernandez MD
[2017-06-11] MEDS: Lidocaine 5% Patch TD SCH (22:02)
[2017-06-12] MEDS: Morphine 15 mg Immediate Release Tab PO SCH ×4 (02:19→20:21)
[2017-06-12] MEDS: Albuterol-Ipratrop 3 mg / 0.5 (3 ml) UD IH SCH ×4 (02:35→20:17)
[2017-06-12] MEDS: Acetylcysteine 20% Inhal Soln (4ml) IH SCH ×4 (02:35→20:17)
[2017-06-12] MEDS: Meropenem 1g/NS 100mL IVPB 1 GM/100 ML PIGGYBACK IVPB SCH ×3 (05:31→22:37)
[2017-06-12] MEDS: Pantoprazole 40 mg EC Tab PO SCH (05:31)
[2017-06-12] MEDS: ACYCLOVIR 5% TOP SCH ×5 (05:32→22:38)
[2017-06-12 07:07] LABS: EOS % 5.6 % (1.5-5.0); GRAN # 0.02 (1.4-6.5); GRAN % 11.1 % (50.0-68.0); HEMOGLOBIN 9.3 g/dL (12.0-16.0); LYMPH # 0.2 (1.2-3.4); LYMPH % 83.3 % (22.0-35.0); MEAN CELL VOLUME 88.6 fl (80.0-105.0); MEAN CORPUSCULAR HEMOGLOBIN 28.6 pg (25.0-35.0); MEAN CORPUSCULAR HGB CONC 32.3 g/dl (31.0-37.0); MEAN PLATELET VOLUME 9.6 fl (7.0-11.0); PLATELET COUNT 38 10^3/uL (120.0-450.0); RBC 3.25 10^6/uL (3.5-6.1); RED CELL DISTRIBUTION WIDTH 14.4 % (11.5-14.5)
[2017-06-12 07:10] LABS: WHITE BLOOD COUNT 0.2 10^3/ul (4.5-11.0)
[2017-06-12 07:24] LABS: ALB/GLOB RATIO 1.1 (1.1-1.8); ALBUMIN 2.8 g/dL (3.0-4.8); ALT/SGPT 45 U/L (7-56); AST/SGOT 38 U/L (14-36); BLOOD UREA NITROGEN 13 mg/dL (7-21); CALCIUM 8.3 mg/dL (8.4-10.5); GFR AFRICAN-AMERICAN > 60; GFR NON-AFRICAN AMERICAN > 60
[2017-06-12] MEDS: Insulin Reg-MEDIUM-Coverage SC SCH ×4 (08:23→21:30)
[2017-06-12] MEDS: Vancomycin 1gm in NS 250ml 1 GM/250 ML BAG IVPB SCH ×2 (09:28→20:32)
[2017-06-12] MEDS: DESVENLAFAXINE SUCCINATE 50 MG PO SCH ×2 (09:54→17:12)
[2017-06-12] MEDS: Morphine 30 mg SR Tab PO SCH ×2 (09:54→22:38)
[2017-06-12 12:58] LABS: PLATELET ESTIMATE LOW (NORMAL)
[2017-06-12 13:00] LABS: NEUTROPHIL 12 % (50.0-70.0)
[2017-06-12 13:02] LABS: LYMPHOCYTE 86 % (22.0-35.0)
[2017-06-12 13:03] LABS: MONOCYTE 2 % (1.0-6.0)
[2017-06-12] MEDS: Alum-Mag Hydrox-Simethicone Susp (30 mL) PO PRN ×2 (14:17→17:23)
--- NOTE | 2017-06-12 19:03 | CP.PCM.PN ---
Subjective - Date & Time of Evaluation Date of Evaluation: 06/11/17 Time of Evaluation: 20:00 - Subjective Subjective: No acute problems. Breathing much better. Nursing staff reported patient slightly groggy this AM. Pain medications were held. ROS: 12 ROS negative Pain: denies at present Objective - Vital Signs/Intake and Output Vital Signs (last 24 hours): Temp Pulse Resp BP Pulse Ox 98.3 F 85 20 144/75 96 06/12/17 16:32 06/12/17 16:32 06/12/17 16:32 06/12/17 16:32 06/12/17 16:32 - Medications Medications: Current Medications Acetaminophen (Tylenol 325mg Tab) 650 mg PO Q4H PRN PRN Reason: pain 4-10 Acetylcysteine (Acetylcysteine 20%) 4 ml IH [id number] [facility] Last Admin: 06/12/17 08:12 Dose: 4 ml Al Hydrox/Mg Hydrox/Simethicone (Maalox Plus 30 Ml) 30 ml PO Q4 PRN PRN Reason: Indigestion / Heartburn Last Admin: 06/12/17 17:23 Dose: 30 ml Albuterol/Ipratropium (Duoneb 3 Mg/0.5 Mg (3 Ml) Ud) 3 ml IH [id number] [facility] Last Admin: 06/12/17 08:12 Dose: 3 ml Alprazolam (Xanax) 0.5 mg PO BID [facility] Last Admin: 06/12/17 17:13 Dose: 0.5 mg Alprazolam (Xanax) 1 mg PO HS [facility] PRN Reason: Protocol Last Admin: 06/11/17 21:59 Dose: 1 mg Al Hydrox/Mg Hydrox/Simethicone 30 ml/Diphenhydramine HCl 75 mg/Lidocaine 30 ml 0 ml PO Q2H PRN PRN Reason: Mouth/Throat Pain Last Admin: 06/10/17 14:38 Dose: 10 ml Dexamethasone (Decadron) 2 mg PO DAILY [facility] Famciclovir (Famvir) 500 mg PO Q8 [facility] Stop: 06/15/17 10:00 Last Admin: 06/12/17 14:18 Dose: 500 mg Home Med (Home Med) 0 unit TOP 5XD [facility] Last Admin: 06/12/17 17:20 Dose: 1 unit Vancomycin HCl (Vancomycin 1gm) 1 gm in 250 mls @ 167 mls/hr IVPB Q12H [facility] PRN Reason: Protocol Last Admin: 06/12/17 09:28 Dose: 167 mls/hr Meropenem/Sodium Chloride (Meropenem 1g/Ns 100ml Ivpb) 1 gm in 100 mls @ 100 mls/hr IVPB Q8 [facility] PRN Reason: Protocol Stop: 06/17/17 22:05 Last Admin: 06/12/17 14:18 Dose: 100 mls/hr Insulin Human Regular (Humulin R Med) 0 units SC ACHS [facility] PRN Reason: Protocol Last Admin: 06/12/17 17:13 Dose: 1 units Lidocaine (Lidoderm) 2 ea TD HS [facility] Last Admin: 06/11/17 22:02 Dose: 2 ea Loratadine (Claritin) 10 mg PO HS [facility] Last Admin: 06/11/17 21:59 Dose: 10 mg Montelukast Sodium (Singulair) 10 mg PO [facility] Last Admin: 06/11/17 21:59 Dose: 10 mg Morphine Sulfate (Morphine Extended Release Tab) 30 mg PO Q12 [facility] Last Admin: 06/12/17 09:54 Dose: Not Given Morphine Sulfate (Morphine Immediate Release Tab) 15 mg PO Q6H [facility] Last Admin: 06/12/17 14:18 Dose: 15 mg Nicotine (Nicoderm Cq) 1 patch TD DAILY [facility] Last Admin: 06/12/17 09:32 Dose: 1 patch Non-Formulary Medication (Desvenlafaxine Succinate) 50 mg PO BID [facility] Last Admin: 06/12/17 17:12 Dose: Not Given Ondansetron HCl (Zofran Odt) 4 mg PO TID PRN PRN Reason: Nausea/Vomiting Pantoprazole Sodium (Protonix Ec Tab) 40 mg PO 0600 [facility] Last Admin: 06/12/17 05:31 Dose: 40 mg Sodium Chloride ([place] Nasal [place]) 1 ml NS DAILY PRN PRN Reason: Nasal congestion Zolpidem Tartrate (Ambien) 5 mg PO HS [facility] PRN Reason: Protocol Last Admin: 06/11/17 21:54 Dose: Not Given - Labs Labs: 06/12/17 07:00 06/12/17 07:00 PT 14.6 SECONDS (9.4-12.5) H 06/07/17 19:02 INR 1.27 (0.93-1.08) H 06/07/17 19:02 APTT 26.6 Seconds (25.1-36.5) 06/07/17 19:02 - Constitutional Appears: Non-toxic - Head Exam Head Exam: ATRAUMATIC, NORMAL INSPECTION, NORMOCEPHALIC - ENT Exam Additional comments: Sores evident on lip and gums - Neck Exam Neck Exam: Full ROM, Normal Inspection. absent: Lymphadenopathy - Respiratory Exam Respiratory Exam: Clear to Ausculation Bilateral, NORMAL BREATHING PATTERN - Cardiovascular Exam Cardiovascular Exam: REGULAR RHYTHM, +S1, +S2. absent: Murmur - GI/Abdominal Exam GI & Abdominal Exam: Soft, Normal Bowel Sounds. absent: Tenderness - Extremities Exam Extremities Exam: Full ROM, Normal Capillary Refill, Normal Inspection. absent : Joint Swelling, Pedal Edema Assessment and Plan - Assessment and Plan (Free Text) Assessment: Mrs. Ye is a 72 y/o woman with pmhx signficant for DM, HTN, stage IV SCLC with vetebral mets s/p XRT s/p C1 carbo/etop currently admitted with neutropenic sepsis in setting of pneumonia and possible bacteremia. Patient receved chemotherapy last tuesday and counts continue to be nadiring as expected with treatment. She has devervesced over all and her breathing is much improved. Plan on continuing abx (meropenem, vancomycin) per ID recommendations , and continued daily granix while neutropenic. -continue abx (meropenem,vancomycin); appreciate ID recommendations -continue duonebs; encouraged incentive spirometer -SCD for DVT ppx -transfuse for hgb <8 or plts <10 -continue with PT -daily G-CSF till ANC >1000 x 2 days -mechanical soft diet (can't wear dentures due to mouth sores) Jordan Puente MD oncology Service
--- NOTE | 2017-06-12 19:06 | CP.PCM.PN ---
Subjective - Date & Time of Evaluation Date of Evaluation: 06/12/17 Time of Evaluation: 18:00 - Subjective Subjective: No acute issues. Out of bed to chair today. With daughter by bedside. Breathing continues to get better ROS: 12 ROS negative otherwise Pain: denies Objective - Vital Signs/Intake and Output Vital Signs (last 24 hours): Temp Pulse Resp BP Pulse Ox 98.3 F 85 20 144/75 96 06/12/17 16:32 06/12/17 16:32 06/12/17 16:32 06/12/17 16:32 06/12/17 16:32 - Medications Medications: Current Medications Acetaminophen (Tylenol 325mg Tab) 650 mg PO Q4H PRN PRN Reason: pain 4-10 Acetylcysteine (Acetylcysteine 20%) 4 ml IH [id number] [facility] Last Admin: 06/12/17 14:00 Dose: Not Given Al Hydrox/Mg Hydrox/Simethicone (Maalox Plus 30 Ml) 30 ml PO Q4 PRN PRN Reason: Indigestion / Heartburn Last Admin: 06/12/17 17:23 Dose: 30 ml Albuterol/Ipratropium (Duoneb 3 Mg/0.5 Mg (3 Ml) Ud) 3 ml IH [id number] [facility] Last Admin: 06/12/17 14:00 Dose: Not Given Alprazolam (Xanax) 0.5 mg PO BID [facility] Last Admin: 06/12/17 17:13 Dose: 0.5 mg Alprazolam (Xanax) 1 mg PO HS [facility] PRN Reason: Protocol Last Admin: 06/11/17 21:59 Dose: 1 mg Al Hydrox/Mg Hydrox/Simethicone 30 ml/Diphenhydramine HCl 75 mg/Lidocaine 30 ml 0 ml PO Q2H PRN PRN Reason: Mouth/Throat Pain Last Admin: 06/10/17 14:38 Dose: 10 ml Dexamethasone (Decadron) 2 mg PO DAILY [facility] Famciclovir (Famvir) 500 mg PO Q8 [facility] Stop: 06/15/17 10:00 Last Admin: 06/12/17 14:18 Dose: 500 mg Home Med (Home Med) 0 unit TOP 5XD [facility] Last Admin: 06/12/17 17:20 Dose: 1 unit Vancomycin HCl (Vancomycin 1gm) 1 gm in 250 mls @ 167 mls/hr IVPB Q12H [facility] PRN Reason: Protocol Last Admin: 06/12/17 09:28 Dose: 167 mls/hr Meropenem/Sodium Chloride (Meropenem 1g/Ns 100ml Ivpb) 1 gm in 100 mls @ 100 mls/hr IVPB Q8 [facility] PRN Reason: Protocol Stop: 06/17/17 22:05 Last Admin: 06/12/17 14:18 Dose: 100 mls/hr Insulin Human Regular (Humulin R Med) 0 units SC ACHS [facility] PRN Reason: Protocol Last Admin: 06/12/17 17:13 Dose: 1 units Lidocaine (Lidoderm) 2 ea TD HS [facility] Last Admin: 06/11/17 22:02 Dose: 2 ea Loratadine (Claritin) 10 mg PO HS [facility] Last Admin: 06/11/17 21:59 Dose: 10 mg Montelukast Sodium (Singulair) 10 mg PO HS [facility] Last Admin: 06/11/17 21:59 Dose: 10 mg Morphine Sulfate (Morphine Extended Release Tab) 30 mg PO Q12 [facility] Last Admin: 06/12/17 09:54 Dose: Not Given Morphine Sulfate (Morphine Immediate Release Tab) 15 mg PO Q6H [facility] Last Admin: 06/12/17 14:18 Dose: 15 mg Nicotine (Nicoderm Cq) 1 patch TD DAILY [facility] Last Admin: 06/12/17 09:32 Dose: 1 patch Non-Formulary Medication (Desvenlafaxine Succinate) 50 mg PO BID [facility] Last Admin: 06/12/17 17:12 Dose: Not Given Ondansetron HCl (Zofran Odt) 4 mg PO TID PRN PRN Reason: Nausea/Vomiting Pantoprazole Sodium (Protonix Ec Tab) 40 mg PO 0600 [facility] Last Admin: 06/12/17 05:31 Dose: 40 mg Sodium Chloride ([place] Nasal [place]) 1 ml NS DAILY PRN PRN Reason: Nasal congestion Zolpidem Tartrate (Ambien) 5 mg PO HS [facility] PRN Reason: Protocol Last Admin: 06/11/17 21:54 Dose: Not Given - Labs Labs: 06/12/17 07:00 06/12/17 07:00 PT 14.6 SECONDS (9.4-12.5) H 06/07/17 19:02 INR 1.27 (0.93-1.08) H 06/07/17 19:02 APTT 26.6 Seconds (25.1-36.5) 06/07/17 19:02 - Constitutional Appears: Non-toxic - Head Exam Head Exam: ATRAUMATIC, NORMAL INSPECTION, NORMOCEPHALIC - Neck Exam Neck Exam: Full ROM, Normal Inspection. absent: Lymphadenopathy - Respiratory Exam Respiratory Exam: Clear to Ausculation Bilateral, NORMAL BREATHING PATTERN - Cardiovascular Exam Cardiovascular Exam: REGULAR RHYTHM, +S1, +S2. absent: Murmur - Extremities Exam Extremities Exam: Full ROM, Normal Capillary Refill, Normal Inspection. absent : Joint Swelling, Pedal Edema Assessment and Plan - Assessment and Plan (Free Text) Assessment: Mrs. Ye is a 72 y/o woman with pmhx signficant for DM, HTN, stage IV SCLC with vetebral mets s/p XRT s/p C1 carbo/etop currently admitted with neutropenic sepsis in setting of pneumonia and possible bacteremia. Patient receved chemotherapy last tuesday and counts continue to be nadiring as expected with treatment. She has devervesced over all and her breathing is much improved. Plan on continuing abx (meropenem, vancomycin) per ID recommendations , and continued daily granix while neutropenic. -continue abx (meropenem,vancomycin); appreciate ID recommendations -continue duonebs; encouraged incentive spirometer -SCD for DVT ppx -transfuse for hgb <8 or plts <10 -continue with PT -daily G-CSF till ANC >1000 x 2 days -mechanical soft diet (can't wear dentures due to mouth sores) Jordan Puente MD oncology Service
--- NOTE | 2017-06-12 21:03 | PN ---
DATE: 06/12/2017 SUBJECTIVE: The patient is in bed, in no acute distress, nontoxic. PHYSICAL EXAMINATION VITAL SIGNS: Temperature is 98, blood pressure is 160/70, respiratory rate of 20. HEENT: Unremarkable. NECK: Supple. LUNGS: Have decreased breath sounds. HEART: Normal S1 and S2. ABDOMEN: Soft, nontender. LABORATORY DATA: Reveals a white count of 0.2, hemoglobin of 9, platelets of 38,000 and the chemistries reveals the patient has a BUN of 13, creatinine of 0.3. procalcitonin from yesterday is 1.73. Urinalysis is noted. Toxicology is reviewed. Influenza is negative. Microbiology reveals the blood cultures are negative, urine cultures are negative and review of orders reveal the patient to be on meropenem and vancomycin. 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 The patient is at very high risk of developing new infections. Jorge Luis Hernandez MD
--- NOTE | 2017-06-12 21:43 | PN ---
DATE: 06/12/2017 PULMONARY PROGRESS NOTE REFERRING PHYSICIAN: Dr. Puente. SUBJECTIVE: Patient is lying in the bed, head at 45 degrees, feels better. No headache or rhinitis. Cough has improved. No nausea, no vomiting. No diarrhea. No leg pain or leg swelling. PHYSICAL EXAMINATION: GENERAL: In no acute distress. VITAL SIGNS: Temperature is 98, heart rate is 92, respiratory rate is 20, blood pressure is 166/94, pulse ox 97% on 2 liter nasal cannula. HEENT: Moist mucous membrane. Crowded airway. NECK: Supple. No JVD. LUNGS: Have a fair airflow with a few rhonchi. HEART: S1 and S2. ABDOMEN: Soft. Nontender. No organomegaly. EXTREMITIES: There is no edema. NEUROLOGIC: Awake, alert, follows simple commands. LABORATORY DATA: Shows hemoglobin 9.3, hematocrit 28.8, WBC 0.2, platelet count is 38. Sodium 134, potassium 3.6, chloride 98, bicarbonate is 29, BUN 13, creatinine 0.3, glucose 180, calcium 8.3, AST 38, ALT 45, alk phos is 116. Albumin is at 2.8. Procalcitonin 1.73 from yesterday. Microbiology, blood culture, urine culture, there is no growth. MEDICATIONS: She is on Mucomyst 4 mL q.6 hour, Ambien 5 mg at bedtime p.r.n., Claritin 10 mg daily, Decadron 2 mg q.12 hours, desvenlafaxine 50 mg twice a day, DuoNeb q. 6 hour p.r.n., Famvir 500 mg q.8 hour, insulin coverage, lidocaine patch on affected area, Miralax plus p.r.n. basis, magic mouthwash q.12 hour p.r.n., meropenem 1 g q. 8 hour, morphine extended release 30 mg q. 12 hour, morphine immediate release 15 mg q. 6 hour, Nicoderm patch daily, nasal saline 1 spray to each nostril daily p.r.n, Protonix 40 mg daily, Singulair 10 mg daily, vancomycin 1 g IV q.12 hours, Xanax 1 mg at bedtime and 0.5 mg twice a day, Zofran p.r.n. basis. ASSESSMENT AND PLAN: Had metastatic small cell cancer involving lungs, bones, liver, status post chemotherapy, pancytopenia, also status post radiation therapy, has pneumonia, chronic lung disease, diabetes, status post influenza A infection. Pulmonary point of view she is doing okay. We will decrease Decadron to once a day. Continue inhaled bronchodilator. No more diuretics. Continue Granix. Follow up CBC. Out of bed to chair. Spoke to the nursing staff. Fall precautions. Thank you and we will follow with you. Robert Eastman MD
[2017-06-12] MEDS: Lidocaine 5% Patch TD SCH (22:37)
[2017-06-13] MEDS: Morphine 15 mg Immediate Release Tab PO SCH ×4 (02:18→20:00)
[2017-06-13] MEDS: Acetylcysteine 20% Inhal Soln (4ml) IH SCH ×4 (03:22→23:08)
[2017-06-13] MEDS: Albuterol-Ipratrop 3 mg / 0.5 (3 ml) UD IH SCH ×4 (03:22→23:08)
[2017-06-13 05:58] LABS: HEMOGLOBIN 9.7 g/dL (12.0-16.0); MEAN CELL VOLUME 87.3 fl (80.0-105.0); MEAN CORPUSCULAR HEMOGLOBIN 29.2 pg (25.0-35.0); MEAN CORPUSCULAR HGB CONC 33.4 g/dl (31.0-37.0); MEAN PLATELET VOLUME 10.2 fl (7.0-11.0); RBC 3.32 10^6/uL (3.5-6.1); RED CELL DISTRIBUTION WIDTH 14.3 % (11.5-14.5)
[2017-06-13 06:12] LABS: WHITE BLOOD COUNT 0.3 10^3/ul (4.5-11.0)
[2017-06-13] MEDS: Meropenem 1g/NS 100mL IVPB 1 GM/100 ML PIGGYBACK IVPB SCH ×3 (06:17→22:07)
[2017-06-13] MEDS: ACYCLOVIR 5% TOP SCH ×6 (06:17→22:11)
[2017-06-13] MEDS: Pantoprazole 40 mg EC Tab PO SCH (06:17)
[2017-06-13 07:09] LABS: ALB/GLOB RATIO 1.1 (1.1-1.8); ALBUMIN 2.9 g/dL (3.0-4.8); ALT/SGPT 41 U/L (7-56); AST/SGOT 33 U/L (14-36); BLOOD UREA NITROGEN 8 mg/dL (7-21); CALCIUM 8.1 mg/dL (8.4-10.5); GFR AFRICAN-AMERICAN > 60; GFR NON-AFRICAN AMERICAN > 60
--- NOTE | 2017-06-13 07:30 | CP.PCM.PN ---
Subjective - Date & Time of Evaluation Date of Evaluation: 06/13/17 Time of Evaluation: 07:00 - Subjective Subjective: Lex Andino D.O. PGY-2, Internal Medicine Resident, Hem/Onc, Progress Note 72 year old female with a PMH of stage IV small cell lung cancer recently started chemotherapy with carboplatin and etoposide who presented for some shortness of breath, congestion, and a period of altered sensorium. Patient was seen and examined. Having some stomach pain which maalox has not been able to help. Also complains of a slight headache which has been present since last night. No inciting events. States that her breathing has improved however. No fevers or chills. Still on neutropenic precautions. Objective - Vital Signs/Intake and Output Vital Signs (last 24 hours): Temp Pulse Resp BP Pulse Ox 98.3 F 84 20 144/75 96 06/12/17 16:32 06/13/17 06:00 06/12/17 16:32 06/12/17 16:32 06/12/17 16:32 Intake and Output: 06/13/17 06/13/17 06:59 18:59 Intake Total 480 Balance 480 - Medications Medications: Current Medications Acetaminophen (Tylenol 325mg Tab) 650 mg PO Q4H PRN PRN Reason: pain 4-10 Acetylcysteine (Acetylcysteine 20%) 4 ml IH [id number] [facility] Last Admin: 06/13/17 03:22 Dose: Not Given Al Hydrox/Mg Hydrox/Simethicone (Maalox Plus 30 Ml) 30 ml PO Q4 PRN PRN Reason: Indigestion / Heartburn Last Admin: 06/12/17 17:23 Dose: 30 ml Albuterol/Ipratropium (Duoneb 3 Mg/0.5 Mg (3 Ml) Ud) 3 ml IH [id number] [facility] Last Admin: 06/13/17 03:22 Dose: Not Given Alprazolam (Xanax) 0.5 mg PO BID [facility] Last Admin: 06/12/17 17:13 Dose: 0.5 mg Alprazolam (Xanax) 1 mg PO HS [facility] PRN Reason: Protocol Last Admin: 06/12/17 22:37 Dose: 1 mg Al Hydrox/Mg Hydrox/Simethicone 30 ml/Diphenhydramine HCl 75 mg/Lidocaine 30 ml 0 ml PO Q2H PRN PRN Reason: Mouth/Throat Pain Last Admin: 06/10/17 14:38 Dose: 10 ml Dexamethasone (Decadron) 2 mg PO DAILY [facility] Famciclovir (Famvir) 500 mg PO Q8 [facility] Stop: 06/15/17 10:00 Last Admin: 06/13/17 06:17 Dose: 500 mg Home Med (Home Med) 0 unit TOP 5XD [facility] Last Admin: 06/13/17 06:17 Dose: Not Given Vancomycin HCl (Vancomycin 1gm) 1 gm in 250 mls @ 167 mls/hr IVPB Q12H [facility] PRN Reason: Protocol Last Admin: 06/12/17 20:32 Dose: 167 mls/hr Meropenem/Sodium Chloride (Meropenem 1g/Ns 100ml Ivpb) 1 gm in 100 mls @ 100 mls/hr IVPB Q8 [facility] PRN Reason: Protocol Stop: 06/17/17 22:05 Last Admin: 06/13/17 06:17 Dose: 100 mls/hr Insulin Human Regular (Humulin R Med) 0 units SC ACHS [facility] PRN Reason: Protocol Last Admin: 06/12/17 21:30 Dose: Not Given Lidocaine (Lidoderm) 2 ea TD HS [facility] Last Admin: 06/12/17 22:37 Dose: 2 ea Loratadine (Claritin) 10 mg PO HS [facility] Last Admin: 06/12/17 22:52 Dose: Not Given Montelukast Sodium (Singulair) 10 mg PO HS [facility] Last Admin: 06/12/17 22:52 Dose: Not Given Morphine Sulfate (Morphine Extended Release Tab) 30 mg PO Q12 [facility] Last Admin: 06/12/17 22:38 Dose: 30 mg Morphine Sulfate (Morphine Immediate Release Tab) 15 mg PO Q6H [facility] Last Admin: 06/13/17 02:18 Dose: Not Given Nicotine (Nicoderm Cq) 1 patch TD DAILY [facility] Last Admin: 06/12/17 09:32 Dose: 1 patch Non-Formulary Medication (Desvenlafaxine Succinate) 50 mg PO BID [facility] Last Admin: 06/12/17 17:12 Dose: Not Given Ondansetron HCl (Zofran Odt) 4 mg PO TID PRN PRN Reason: Nausea/Vomiting Pantoprazole Sodium (Protonix Ec Tab) 40 mg PO 0600 [facility] Last Admin: 06/13/17 06:17 Dose: 40 mg Sodium Chloride ([place] Nasal [place]) 1 ml NS DAILY PRN PRN Reason: Nasal congestion Zolpidem Tartrate (Ambien) 5 mg PO HS [facility] PRN Reason: Protocol Last Admin: 06/12/17 22:38 Dose: Not Given - Labs Labs: 06/13/17 06:10 06/13/17 06:00 PT 14.6 SECONDS (9.4-12.5) H 06/07/17 19:02 INR 1.27 (0.93-1.08) H 06/07/17 19:02 APTT 26.6 Seconds (25.1-36.5) 06/07/17 19:02 - Constitutional Appears: Non-toxic, No Acute Distress, Chronically Ill - Head Exam Head Exam: ATRAUMATIC, NORMOCEPHALIC - Eye Exam Eye Exam: EOMI, PERRL - ENT Exam ENT Exam: Mucous Membranes Dry, small lesion on lower lip appears herpetic - Neck Exam Neck exam: Positive for: Normal Inspection - Respiratory Exam Respiratory Exam: Clear to Auscultation Bilateral, Rales, Rhonchi, Wheezes. absent: Accessory Muscle Use, Respiratory Distress - Cardiovascular Exam Cardiovascular Exam: RRR, +S1, +S2. absent: Gallop, Rubs - GI/Abdominal Exam GI & Abdominal Exam: Normal Bowel Sounds, Soft. absent: Distended, Tenderness - Extremities Exam Extremities exam: Positive for: pedal edema (trace). Negative for: calf tenderness - Back Exam Back exam: absent: CVA tenderness (L), CVA tenderness (R), paraspinal tenderness - Neurological Exam Neurological exam: Alert, Oriented x3 - Psychiatric Exam Psychiatric exam: Normal Affect, Normal Mood - Skin Skin Exam: Dry, Warm Assessment and Plan - Assessment and Plan (Free Text) Assessment: 72 year old female with a PMH of stage IV small cell lung cancer recently started chemotherapy with carboplatin and etoposide who presented for some shortness of breath, congestion, found to have multifocal pneumonia as well as neutropenic sepsis Plan: Multifocal pneumonia Neutropenic sepsis Pancytopenia Stage IV small cell lung cancer s/p XRT and chemotherapy w/ carboplatin and etoposide Stomach pain Hypokalemia Procalcitonin downtrending, defervescing appropriately On merrem and vanco day 6 per ID recs Afebrile, tylenol PRN fevers Continue with granix until ANC > 1000 for 2 days Pulm following, recs reviewed and appreciated Continue nebulizers, mucomyst Potassium repleted Will start famotidine 40mg PO HS, give a dose now, and also start carafate On SCDs for DVT ppx Patient was seen and examined and case was discussed in detail with attending physician
[2017-06-13] MEDS: Insulin Reg-MEDIUM-Coverage SC SCH ×4 (08:13→22:06)
[2017-06-13] MEDS: Alum-Mag Hydrox-Simethicone Susp (30 mL) PO PRN ×2 (08:23→13:18)
[2017-06-13] MEDS: Vancomycin 1gm in NS 250ml 1 GM/250 ML BAG IVPB SCH ×2 (08:28→22:08)
--- NOTE | 2017-06-13 09:55 | PN ---
DATE: 06/11/2017 SUBJECTIVE: Patient is a 72-year-old white female, patient of Dr. Goldman, covering for him. Seen and examined. She is in isolation. Lying in bed, seems to be comfortable, awake and alert, able to answer simple questions. Yesterday's events noted. Denies any nausea or vomiting. No diarrhea. No fever, no chills. She states she had fair, does not have a good appetite. PHYSICAL EXAMINATION: GENERAL: She is awake and alert, able to communicate. HEENT: Has symmetrical face. Nonicteric sclera. Pale conjunctiva. VITAL SIGNS: She is afebrile. Pulse 88, respirations 20, blood pressure 135/82. LUNGS: Bilateral fair airflow. No rhonchi or crackle. HEART: S1, S2 audible. ABDOMEN: Soft, nontender. No rebound. No guarding. She has crusted herpes labialis on her upper lip. EXTREMITIES: Bilateral legs, no edema. LABORATORY EXAM: WBC is 0.3, hemoglobin 9.1, hematocrit 28.4, platelet of 51. Chemistry: Sodium 140, potassium 3.7, chloride 103, CO2 of 31, BUN 16, creatinine 0.4, blood sugar of 335. Vanco is 7.1. Flu test is negative. Echocardiogram shows left ventricle is normal in size and thickness, functionality is within normal range, mitral regurgitation is moderate. CT scan of the chest done on 06/09 shows multifocal pneumonia, worse in the right lower lobe with more dense consolidation, small right and trace left pleural effusion, multifocal right mid and lower pleural effusion with metastatic nodules. ASSESSMENT: 1. Multifocal pneumonia. 2. Pancytopenia. 3. Metastatic small cell carcinoma of the lung with bone and liver mets. 4. Chronic obstructive pulmonary disease. 5. Hrt-[id number]-faslcaofz diabetes. PLAN: Currently patient is in isolation because of leukopenia and she is getting Decadron 2 mg q.12. Getting nebulizer treatment, she is on Famvir, she is getting Neupogen, she is also on meropenem as recommended by ID, getting analgesic, extended release 30 mg of morphine q.12, she is on Protonix, she is getting vancomycin 1 g q.12, she is on anxiolytics. We will continue all that and followup on CBC and CMP in a.m. Continue her neutropenic isolation until her white count comes up. Fortino Cain MD
--- NOTE | 2017-06-13 10:26 | PN ---
DATE: 06/12/2017 SUBJECTIVE: The patient is 72 years old, patient of Dr. Vail, covering for him. Seen and examined, lying in bed, still in isolation. Complaint of poor appetite. PHYSICAL EXAMINATION: VITAL SIGNS: The patient is afebrile, pulse of 90, respirations 20, blood pressure 166/94. LUNGS: Bilateral fair airflow. No rhonchi or crackle. HEART: S1 and S2 audible. ABDOMEN: Soft, obese, nontender. No rebound. No guarding. NEUROLOGIC: She is awake and alert, able to communicate. SKIN: She has healing herpes labialis lesion on her lip. LABORATORY EXAM: WBC 0.2, hemoglobin 9.3, hematocrit 28, platelet of 38. Chemistry: Sodium 134, potassium 3.6, chloride 98, CO2 of 29, BUN 13, creatinine 0.3, blood sugar of 195, procalcitonin was 1.73. ASSESSMENT: 1. Pancytopenia. 2. Metastatic small cell carcinoma of the lung with metastases to the bone and liver. 3. Resolving pneumonia. 4. Chronic obstructive pulmonary disease. 5. Hypertension. 6. Bcg-[id number]-traizekmd diabetes. 7. Herpes labialis. PLAN: Currently, the patient is in isolation, we will continue that. She is getting Decadron. She is on nebulizer treatment. She is getting Neupogen 480 mcg daily and blood sugar is being monitored. Continue her analgesic. Continue her on vancomycin. We will reevaluate. The patient will be seen by Dr. Vail in the a.m. Fortino Cain MD
[2017-06-13] MEDS: Morphine 30 mg SR Tab PO SCH ×2 (10:41→22:05)
[2017-06-13] MEDS: DESVENLAFAXINE SUCCINATE 50 MG PO SCH ×2 (10:50→18:22)
[2017-06-13] MEDS ORDERED: Saliva Substitute 44.3 ML PO PRN (12:16)
[2017-06-13] MEDS: Sucralfate 1 gm/10 ml Oral Susp UD PO SCH (16:34)
--- NOTE | 2017-06-13 16:37 | CP.PCM.PN ---
Subjective - Date & Time of Evaluation Date of Evaluation: 06/13/17 Time of Evaluation: 11:00 - Subjective Subjective: No fevers, not in distress, resting comfortably. Objective - Vital Signs/Intake and Output Vital Signs (last 24 hours): Temp Pulse Resp BP Pulse Ox 98.3 F 85 20 162/86 H 93 L 06/13/17 09:12 06/13/17 09:12 06/13/17 09:12 06/13/17 09:12 06/13/17 09:12 Intake and Output: 06/13/17 06/13/17 06:59 18:59 Intake Total 480 Balance 480 - Medications Medications: Current Medications Acetaminophen (Tylenol 325mg Tab) 650 mg PO Q4H PRN PRN Reason: pain 4-10 Acetylcysteine (Acetylcysteine 20%) 4 ml IH [id number] [facility] Last Admin: 06/13/17 08:03 Dose: 4 ml Al Hydrox/Mg Hydrox/Simethicone (Maalox Plus 30 Ml) 30 ml PO Q4 PRN PRN Reason: Indigestion / Heartburn Last Admin: 06/13/17 08:23 Dose: 30 ml Albuterol/Ipratropium (Duoneb 3 Mg/0.5 Mg (3 Ml) Ud) 3 ml IH [id number] [facility] Last Admin: 06/13/17 08:03 Dose: 3 ml Alprazolam (Xanax) 0.5 mg PO BID [facility] Last Admin: 06/12/17 17:13 Dose: 0.5 mg Alprazolam (Xanax) 1 mg PO HS [facility] PRN Reason: Protocol Last Admin: 06/12/17 22:37 Dose: 1 mg Al Hydrox/Mg Hydrox/Simethicone 30 ml/Diphenhydramine HCl 75 mg/Lidocaine 30 ml 0 ml PO Q2H PRN PRN Reason: Mouth/Throat Pain Last Admin: 06/10/17 14:38 Dose: 10 ml Dexamethasone (Decadron) 2 mg PO DAILY [facility] Famciclovir (Famvir) 500 mg PO Q8 [facility] Stop: 06/15/17 10:00 Last Admin: 06/13/17 06:17 Dose: 500 mg Famotidine (Pepcid) 40 mg PO HS [facility] Home Med (Home Med) 0 unit TOP 5XD [facility] Last Admin: 06/13/17 06:17 Dose: Not Given Vancomycin HCl (Vancomycin 1gm) 1 gm in 250 mls @ 167 mls/hr IVPB Q12H [facility] PRN Reason: Protocol Last Admin: 06/13/17 08:28 Dose: 167 mls/hr Meropenem/Sodium Chloride (Meropenem 1g/Ns 100ml Ivpb) 1 gm in 100 mls @ 100 mls/hr IVPB Q8 [facility] PRN Reason: Protocol Stop: 06/17/17 22:05 Last Admin: 06/13/17 06:17 Dose: 100 mls/hr Potassium Chloride (Potassium Chloride 10 Meq/100 Ml) 10 meq in 100 mls @ 50 mls/hr IVPB Q2H [facility] Stop: 06/13/17 15:29 Last Admin: 06/13/17 08:23 Dose: 50 mls/hr Insulin Human Regular (Humulin R Med) 0 units SC ACHS [facility] PRN Reason: Protocol Last Admin: 06/13/17 08:13 Dose: Not Given Lidocaine (Lidoderm) 2 ea TD HS [facility] Last Admin: 06/12/17 22:37 Dose: 2 ea Loratadine (Claritin) 10 mg PO HS [facility] Last Admin: 06/12/17 22:52 Dose: Not Given Montelukast Sodium (Singulair) 10 mg PO HS [facility] Last Admin: 06/12/17 22:52 Dose: Not Given Morphine Sulfate (Morphine Extended Release Tab) 30 mg PO Q12 [facility] Last Admin: 06/12/17 22:38 Dose: 30 mg Morphine Sulfate (Morphine Immediate Release Tab) 15 mg PO Q6H [facility] Last Admin: 06/13/17 08:26 Dose: Not Given Nicotine (Nicoderm Cq) 1 patch TD DAILY [facility] Last Admin: 06/12/17 09:32 Dose: 1 patch Non-Formulary Medication (Desvenlafaxine Succinate) 50 mg PO BID [facility] Last Admin: 06/12/17 17:12 Dose: Not Given Ondansetron HCl (Zofran Odt) 4 mg PO TID PRN PRN Reason: Nausea/Vomiting Pantoprazole Sodium (Protonix Ec Tab) 40 mg PO 0600 [facility] Last Admin: 06/13/17 06:17 Dose: 40 mg Sodium Chloride ([place] Nasal [place]) 1 ml NS DAILY PRN PRN Reason: Nasal congestion Sucralfate (Carafate Oral Susp) 1 gm PO 0600,1600 [facility] Zolpidem Tartrate (Ambien) 5 mg PO HS [facility] PRN Reason: Protocol Last Admin: 06/12/17 22:38 Dose: Not Given - Labs Labs: 06/13/17 06:10 06/13/17 06:00 PT 14.6 SECONDS (9.4-12.5) H 06/07/17 19:02 INR 1.27 (0.93-1.08) H 06/07/17 19:02 APTT 26.6 Seconds (25.1-36.5) 06/07/17 19:02 - Constitutional Appears: Chronically Ill - Head Exam Head Exam: NORMAL INSPECTION - ENT Exam ENT Exam: Mucous Membranes Moist - Neck Exam Neck Exam: absent: Meningismus - Respiratory Exam Respiratory Exam: Decreased Breath Sounds - Cardiovascular Exam Cardiovascular Exam: +S1, +S2 - GI/Abdominal Exam GI & Abdominal Exam: Soft. absent: Tenderness Assessment and Plan - Assessment and Plan (Free Text) Plan: Assessment sepsis due to HCAP with neutropenia history of Systemic viral illness with Influenza and acute bronchitis VRE in the urine, asymptomatic DM HTN depression lower back tumor obesity with BMI 30 Plan continue Vancomycin and Merrem to complete 4-7 days (day 5 today)
[2017-06-13] MEDS: Nystatin 100,000 Units/ml Oral Susp 5 ml UD PO SCH (18:15)
[2017-06-13] MEDS: Lidocaine 5% Patch TD SCH (22:07)
--- NOTE | 2017-06-14 00:23 | PN ---
DATE: 06/13/2017 PULMONARY PROGRESS NOTE REFERRING PHYSICIAN: Dr. Puente. SUBJECTIVE: She is lying in the bed, sleepy, arousable. Has some herpetic lesion on the lips antibiotics. Not much cough. No nausea. No vomiting. Back pain is better. No dysuria, leg pain or leg swelling. OBJECTIVE: GENERAL: In no acute distress. VITAL SIGNS: Temperature is 99, heart rate is 92, respiratory rate is 20, blood pressure 168/92, pulse ox 94% on 2 liters nasal cannula. HEENT: Moist mucous membrane. Has herpetic lesion. NECK: Supple. No JVD. LUNGS: Has a few basilar crackles. No rhonchi. HEART: S1, S2. ABDOMEN: Soft, nontender, no organomegaly. EXTREMITIES: No edema. NEUROLOGIC: Awake, alert. Follows simple command. MEDICATIONS: She is on Mucomyst inhaled q. 6 hour, Ambien 5 mg at bedtime p.r.n., Carafate 1 g twice a day, Claritin 10 mg daily, Decadron 2 mg daily, desvenlafaxine 50 mg twice a day, DuoNeb q. 6 hour, Famvir 500 mg q. 8 hour, Lidoderm patch on affected area, MiraLax p.o. q. 4 hour p.r.n., Magic mouthwash q. 2 hour p.r.n., meropenem 1 g IV q. 8 hour, morphine extended release tablet 30 mg q. 12 hour, morphine immediate release 15 mg q. 6 hour, Nicoderm patch daily, nystatin oral suspension twice a day, nasal saline 2 spray to each nostril q. daily, Pepcid 40 mg at bedtime, Protonix 40 mg daily, Singulair 10 mg daily, Tylenol p.r.n. basis, vancomycin 1 g IV q. 12 hours, Xanax 1 mg at bedtime, Xanax 0.5 mg twice a day, Zofran 4 mg t.i.d. p.r.n. LABORATORY DATA: Shows hemoglobin 9.7, hematocrit 29.0, WBC 0.3, platelet is 32,000. Sodium 133, potassium 3.3, chloride 97, bicarbonate 27, BUN 8, creatinine 0.3, glucose 148. AST 33, ALT 41, alk phos is 122. Albumin is 2.9. IMPRESSION AND PLAN: Metastatic small cell cancer involving lungs, bones, liver; had a spine tumor requiring radiation therapy; pancytopenia with thrombocytopenia; leukopenia; diabetes; status post influenza infection; resolving pneumonia. Continue bronchodilator. Keep head at 45 degrees. Antibiotics as per Infectious Diseases. May need Granix, will leave the decision for Oncology. Follow up CBC in the morning. Thank you and we will follow with you. Robert Eastman MD
[2017-06-14] MEDS: Morphine 15 mg Immediate Release Tab PO SCH ×4 (02:00→20:36)
[2017-06-14] MEDS: Albuterol-Ipratrop 3 mg / 0.5 (3 ml) UD IH SCH ×4 (03:03→19:40)
[2017-06-14] MEDS: Pantoprazole 40 mg EC Tab PO SCH (05:49)
[2017-06-14] MEDS: Sucralfate 1 gm/10 ml Oral Susp UD PO SCH ×2 (05:49→17:32)
[2017-06-14] MEDS: Meropenem 1g/NS 100mL IVPB 1 GM/100 ML PIGGYBACK IVPB SCH ×3 (05:50→21:59)
[2017-06-14] MEDS: ACYCLOVIR 5% TOP SCH ×2 (05:52→22:02)
[2017-06-14 06:50] LABS: GRAN # 0.03 (1.4-6.5); GRAN % 10.3 % (50.0-68.0); HEMOGLOBIN 9.5 g/dL (12.0-16.0); LYMPH # 0.2 (1.2-3.4); LYMPH % 75.9 % (22.0-35.0); MEAN CELL VOLUME 86.8 fl (80.0-105.0); MEAN CORPUSCULAR HEMOGLOBIN 28.5 pg (25.0-35.0); MEAN CORPUSCULAR HGB CONC 32.9 g/dl (31.0-37.0); MEAN PLATELET VOLUME 11.3 fl (7.0-11.0); MONO % 13.8 % (1.0-6.0); RBC 3.33 10^6/uL (3.5-6.1); RED CELL DISTRIBUTION WIDTH 14.1 % (11.5-14.5)
[2017-06-14 07:24] LABS: ALBUMIN 2.9 g/dL (3.0-4.8); ALT/SGPT 38 U/L (7-56); AST/SGOT 29 U/L (14-36); BLOOD UREA NITROGEN 8 mg/dL (7-21); CALCIUM 7.9 mg/dL (8.4-10.5); GFR AFRICAN-AMERICAN > 60; GFR NON-AFRICAN AMERICAN > 60
[2017-06-14 07:30] LABS: PLATELET COUNT 27 10^3/uL (120.0-450.0); WHITE BLOOD COUNT 0.3 10^3/ul (4.5-11.0)
[2017-06-14] MEDS: Acetylcysteine 20% Inhal Soln (4ml) IH SCH ×3 (07:53→19:40)
[2017-06-14] MEDS: Insulin Reg-MEDIUM-Coverage SC SCH ×4 (08:58→22:30)
[2017-06-14] MEDS: Nystatin 100,000 Units/ml Oral Susp 5 ml UD PO SCH ×2 (11:03→17:34)
[2017-06-14] MEDS: DESVENLAFAXINE SUCCINATE 50 MG PO SCH ×2 (11:06→17:33)
[2017-06-14] MEDS: Morphine 30 mg SR Tab PO SCH ×2 (11:08→21:59)
[2017-06-14] MEDS: Vancomycin 1gm in NS 250ml 1 GM/250 ML BAG IVPB SCH ×2 (11:09→21:59)
--- NOTE | 2017-06-14 17:04 | CP.PCM.PN ---
Subjective - Date & Time of Evaluation Date of Evaluation: 06/14/17 Time of Evaluation: 10:45 - Subjective Subjective: Comfortable, no fevers. Objective - Vital Signs/Intake and Output Vital Signs (last 24 hours): Temp Pulse Resp BP Pulse Ox 97.4 F L 92 H 20 150/77 95 06/14/17 08:15 06/14/17 08:15 06/14/17 08:15 06/14/17 08:15 06/14/17 08:15 Intake and Output: 06/14/17 06/14/17 06:59 18:59 Intake Total 980 120 Output Total 200 200 Balance 780 -80 - Medications Medications: Current Medications Acetaminophen (Tylenol 325mg Tab) 650 mg PO Q4H PRN PRN Reason: pain 4-10 Acetylcysteine (Acetylcysteine 20%) 4 ml IH [id number] [facility] Last Admin: 06/14/17 07:53 Dose: 4 ml Al Hydrox/Mg Hydrox/Simethicone (Maalox Plus 30 Ml) 30 ml PO Q4 PRN PRN Reason: Indigestion / Heartburn Last Admin: 06/13/17 13:18 Dose: 30 ml Albuterol/Ipratropium (Duoneb 3 Mg/0.5 Mg (3 Ml) Ud) 3 ml IH [id number] [facility] Last Admin: 06/14/17 07:53 Dose: 3 ml Alprazolam (Xanax) 0.5 mg PO BID [facility] Last Admin: 06/13/17 18:28 Dose: Not Given Alprazolam (Xanax) 1 mg PO HS [facility] PRN Reason: Protocol Last Admin: 06/13/17 22:08 Dose: 1 mg Al Hydrox/Mg Hydrox/Simethicone 30 ml/Diphenhydramine HCl 75 mg/Lidocaine 30 ml 0 ml PO Q2H PRN PRN Reason: Mouth/Throat Pain Last Admin: 06/10/17 14:38 Dose: 10 ml Dexamethasone (Decadron) 2 mg PO DAILY [facility] Last Admin: 06/13/17 10:40 Dose: 2 mg Famciclovir (Famvir) 500 mg PO Q8 [facility] Stop: 06/15/17 10:00 Last Admin: 06/14/17 05:49 Dose: 500 mg Famciclovir (Famvir) 500 mg PO Q8 [facility] Stop: 06/20/17 05:00 Famotidine (Pepcid) 40 mg PO HS [facility] Last Admin: 06/13/17 22:08 Dose: 40 mg Home Med (Home Med) 0 unit TOP 5XD [facility] Last Admin: 06/14/17 05:52 Dose: 1 unit Meropenem/Sodium Chloride (Meropenem 1g/Ns 100ml Ivpb) 1 gm in 100 mls @ 100 mls/hr IVPB Q8 [facility] PRN Reason: Protocol Stop: 06/17/17 22:05 Last Admin: 06/14/17 05:50 Dose: 100 mls/hr Vancomycin HCl (Vancomycin 1gm) 1 gm in 250 mls @ 167 mls/hr IVPB Q12 [facility] PRN Reason: Protocol Last Admin: 06/13/17 22:08 Dose: 167 mls/hr Insulin Human Regular (Humulin R Med) 0 units SC ACHS [facility] PRN Reason: Protocol Last Admin: 06/14/17 08:58 Dose: Not Given Lidocaine (Lidoderm) 2 ea TD [facility] Last Admin: 06/13/17 22:07 Dose: 2 ea Loratadine (Claritin) 10 mg PO [facility] Last Admin: 06/13/17 22:05 Dose: 10 mg Montelukast Sodium (Singulair) 10 mg PO [facility] Last Admin: 06/13/17 22:08 Dose: 10 mg Morphine Sulfate (Morphine Extended Release Tab) 30 mg PO Q12 [facility] Last Admin: 06/13/17 22:05 Dose: Not Given Morphine Sulfate (Morphine Immediate Release Tab) 15 mg PO Q6H [facility] Last Admin: 06/14/17 02:00 Dose: Not Given Nicotine (Nicoderm Cq) 1 patch TD DAILY [facility] Last Admin: 06/13/17 10:40 Dose: 1 patch Non-Formulary Medication (Desvenlafaxine Succinate) 50 mg PO BID [facility] Last Admin: 06/13/17 18:22 Dose: Not Given Nystatin (Nystatin Oral Susp) 5 ml PO BID [facility] Last Admin: 06/13/17 18:15 Dose: 5 ml Ondansetron HCl (Zofran Odt) 4 mg PO TID PRN PRN Reason: Nausea/Vomiting Last Admin: 06/14/17 04:40 Dose: 4 mg Pantoprazole Sodium (Protonix Ec Tab) 40 mg PO 0600 [facility] Last Admin: 06/14/17 05:49 Dose: 40 mg Saliva Substitute (Saliva Substitute) 1 ml PO Q2 PRN PRN Reason: Dry mouth Last Admin: 06/13/17 13:21 Dose: 1 ml Sodium Chloride ([place] Nasal [place]) 1 ml NS DAILY PRN PRN Reason: Nasal congestion Sucralfate (Carafate Oral Susp) 1 gm PO 0600,1600 [facility] Last Admin: 06/14/17 05:49 Dose: 1 gm Zolpidem Tartrate (Ambien) 5 mg PO HS [facility] PRN Reason: Protocol Last Admin: 06/13/17 21:52 Dose: Not Given - Labs Labs: 06/14/17 06:00 06/14/17 06:00 PT 14.6 SECONDS (9.4-12.5) H 06/07/17 19:02 INR 1.27 (0.93-1.08) H 06/07/17 19:02 APTT 26.6 Seconds (25.1-36.5) 06/07/17 19:02 - Constitutional Appears: Chronically Ill - Head Exam Head Exam: NORMAL INSPECTION - Neck Exam Neck Exam: absent: Meningismus - Respiratory Exam Respiratory Exam: Decreased Breath Sounds - Cardiovascular Exam Cardiovascular Exam: +S1, +S2 - GI/Abdominal Exam GI & Abdominal Exam: Soft. absent: Tenderness Assessment and Plan - Assessment and Plan (Free Text) Plan: Assessment sepsis due to HCAP with neutropenia history of Systemic viral illness with Influenza and acute bronchitis VRE in the urine, asymptomatic DM HTN depression lower back tumor obesity with BMI 30 Plan continue Vancomycin and Merrem to complete 4-7 days (day 6 today) discussed with Dr. Puente
[2017-06-14] MEDS: Lidocaine 5% Patch TD SCH (21:52)
[2017-06-15] MEDS: Acetylcysteine 20% Inhal Soln (4ml) IH SCH ×4 (01:29→20:12)
[2017-06-15] MEDS: Albuterol-Ipratrop 3 mg / 0.5 (3 ml) UD IH SCH ×4 (01:29→20:12)
--- NOTE | 2017-06-15 01:49 | PN ---
DATE: 06/14/2017 PULMONARY PROGRESS NOTE REFERRING PHYSICIAN: Dr. Puente. SUBJECTIVE: She is lying in the bed, head at 45 degrees. Friends and family are at bedside. Has difficulty swallowing because of the sores in the lips, tongue and mouth. Also complaining about odynophagia. No nausea. Mild cough. No chest pain. No abdominal pain. No dysuria, leg pain or leg swelling. OBJECTIVE: GENERAL: Mild distress secondary to oral mucosa discomfort. VITAL SIGNS: Temperature is 98, heart rate is 93, respiratory rate is 20, blood pressure 153/80, pulse ox is 96% on nasal cannula. HEENT: Moist mucous membrane. Multiple lip and oral ulcers. NECK: Supple. No JVD. LUNGS: Has a fair airflow with rhonchi. HEART: S1, S2. ABDOMEN: Soft and nontender. No organomegaly. EXTREMITIES: No edema. NEUROLOGIC: Awake, alert. Follows simple commands. MEDICATIONS: She is on Mucomyst 20% inhaled q. 6 hour, Ambien 5 mg at bedtime, Carafate 1 g twice a day, Claritin 10 mg daily, Decadron 2 mg daily, desvenlafaxine 50 mg twice a day, DuoNeb q. 6 hours, Famvir 500 mg q. 8 hour, insulin coverage, Lidoderm patch to affected area at bedtime, Miralax q. 4 hours p.r.n., magic mouthwash q. hours p.r.n., meropenem 1 g IV q. 8 hours, morphine sulfate 30 mg q. 12 hour, morphine immediate release mg q. 6 hour, Nicoderm patch daily, nystatin orally twice a day, [place] nasal spray nasally p.r.n., Pepcid 40 mg at bedtime, Protonix 40 mg daily, saliva substitute through the mouth q. 2 hours, Tylenol p.r.n., vancomycin 1 g IV q. 12 hours, Xanax 1 mg at bedtime and 0.5 mg twice a day, Zofran 8 mg q. 8 hours p.r.n. LABORATORY DATA: Shows hemoglobin 9.5, hematocrit 28.9, WBC 0.3, platelet count is 27. Sodium is 133, potassium 3.5, chloride 99, bicarbonate 26, BUN 8, creatinine 0.3, glucose 142, calcium 7.9, AST 29, ALT 38, alk phos is 104. Albumin is 2.9. Microbiology: Blood culture, urine culture, there is no growth. 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 Case discussed with Dr. Puente. Also spoke to family at bedside. All the questions answered. We will suggest patient to swish and swallow the magic solution before the meals and eating. Continue steroid and bronchodilator. Gastric prophylaxis. Hematology/Oncology followup. Thank you and we will follow with you. Robert Eastman MD
--- NOTE | 2017-06-15 02:02 | CON ---
DATE: 06/14/[address] for Dr[address] Yosef Reis MD. REFERRING MD: Dr. Puente. REASON FOR CONSULTATION: To provide hyperalimentation to a patient with neutropenic sepsis, pneumonia and lung cancer with borderline to mild hyponatremia and hypokalemia. 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 The patient has an existing right chest wall port. She had a recent admission for influenza and a UTI. History of NIDDM, history of pancytopenia and hypertension. The patient was admitted to the hospital with neutropenic sepsis 1 week ago and found to have bilateral pneumonia. She remains on antibiotic therapy. She continues to remain pancytopenic. Her sodium level was 131, it is presently 133. Her potassium level has been borderline low in the 3.3-3.5 range. The patient's oral intake has been very poor over the last 1 week. She has multiple mouth sores secondary to chemotherapy. We are asked to provide hyperalimentation to this patient. PAST MEDICAL HISTORY: Significant for SIADH; hyponatremia; electrolyte abnormalities; small cell lung cancer, receiving chemotherapy with history of bone, liver and lung mets; history of influenza; history of UTI; history of NIDDM; anemia; now with pancytopenia and hypertension. MEDICATIONS AT HOME: Included that of Ambien, MiraLax, Protonix, Zofran, NicoDerm CQ, morphine, Singulair, Glucophage, Lidoderm, levocetirizine, Pepcid, Decadron, desvenlafaxine, cinnamon, Xanax, DuoNeb, Tylenol and Xanax. ALLERGIES: THE PATIENT IS ALLERGIC TO SULFA. PRESENT MEDICATIONS IN THE HOSPITAL: Include that of aluminum hydroxide/magnesium hydroxide/simethicone/diphenhydramine/lidocaine solution, acetylcysteine, Ambien, Carafate, Claritin, Decadron, desvenlafaxine, DuoNeb, Famvir, acyclovir ointment, insulin, Lidoderm, Maalox Plus, meropenem, morphine, NicoDerm, Nystatin, [place] nasal spray, Pepcid, Protonix, saliva substitute, Singulair, Tylenol, IV vancomycin, Xanax, Zofran. SOCIAL HISTORY: History of cigarette smoking. No history of alcohol use. FAMILY HISTORY: Noncontributory. REVIEW OF SYSTEMS: GENERAL: The patient states until the time of hospitalization, appetite was stable and weight had been stable. ENT: Denies any hearing or visual problems. PULMONARY: Positive pneumonia as noted above. Presently, no shortness of breath or cough. CARDIAC: No history of ASHD. No history of chest pain, palpitations. GI: Denies any abdominal pain, nausea or vomiting. She states she has a burning discomfort when she tries to swallow food, perhaps secondary to the ulcers in her posterior pharynx. : No history of chronic kidney disease. Past history of UTIs. [employer]: Postmenopausal. ENDOCRINE: History of diabetes without complications. MUSCULOSKELETAL: No complaints. NEUROLOGIC: No history of CVA, TIA, seizures or syncope. HEME/ONC: History of anemia and pancytopenia as noted above. PSYCHIATRIC HISTORY: Negative. PHYSICAL EXAMINATION: GENERAL: The patient is currently seen in isolation on 3R. She is sitting up in a chair. Her son is in the room with her. VITAL SIGNS: Blood pressure ranging from 150-153 systolic, diastolics ranging from 77-80. Pulse 85, temperature 97.4, respiratory rate is 20 with a pulse ox of 96%. HEENT: Exam shows her to be normocephalic, atraumatic. Conjunctiva are pale. Sclerae are nonicteric. Pupils equal, reactive to light and accommodation. Extraocular muscles are intact. Posterior pharynx: Positive sores and ulcerations. NECK: Supple. No neck vein distention. No thyromegaly. No lymphadenopathy. No bruits. CHEST: Clear to auscultation and percussion with scattered rhonchi bilaterally. No rales or wheezing. The patient has a port in her right chest wall. CARDIOVASCULAR: Shows a normal S1 and S2 without murmurs, rubs or gallops. ABDOMEN: Soft. Bowel sounds normal. No rebound, guarding or masses. EXTREMITIES: Show no cyanosis, clubbing or edema. Distal lower extremity pulses are intact at 1 to 2+. NEURO: Shows her to be alert, oriented x3 with no gross focal motor or sensory deficits noted. LABORATORY DATA AND IMAGING: Admitting chest x-ray showed bilateral infiltrates. Admitting chest CT showed multilobe pneumonia with metastatic nodules and hilar lymphadenopathy. Labs: CBC, white blood cell count is stable at 0.3, hemoglobin is 9.5 with a platelet count of 27,000. Chemistries show a sodium of 133, potassium 3.5 today. BUN 8 with a creatinine of 0.3. Glucose 142 with a calcium of 7.9. Liver enzymes are normal. Albumin is 2.9. Urine showed 5-10 red blood cells. No white blood cells. No protein. Influenza serologies were negative hepatitis A and B. Microbiology: Blood cultures were negative at 5 days. Urine cultures were negative. Admitting EKG showed normal sinus rhythm with APCs. ASSESSMENT: 1. Poor nutrition in the setting of the patient finding it difficult to swallow food secondary to likely ulcerations on her posterior pharynx secondary to chemotherapy. The patient's oral intake has been very poor since admission. I agree with decision to start her on hyperalimentation. We will do peripheral hyperalimentation through her port. We will add insulin to the bag in light of her history of diabetes. We will try and maintain her on isotonic hyperalimentation because of her tendency to develop hyponatremia. The patient does have a past history of syndrome of inappropriate antidiuretic hormone. 2. History of borderline low sodium levels with syndrome of inappropriate antidiuretic hormone . As noted previously, we will give her isotonic hyperalimentation. 3. history of small cell cancer, status post recent chemotherapy with severe neutropenia. History of bone, liver and lung metastasis. 4. History of qst-emnfvem-[id number] diabetes mellitus. The patient will continue on sliding scale insulin. Son is asking whether or not the patient might have gastroparesis and is inquiring about the ability to use Reglan. I have asked him to discuss this with Dr. Puente. 5. History of anemia and pancytopenia, in part secondary to chemotherapy. 6. History of hypertension. Slight elevation of systolic blood pressure. This is acceptable. If necessary and her blood pressure trends higher, we can start the patient on calcium channel dameon therapy at a low dose. PLAN: 1. Hyperalimentation orders written by me. The patient will receive isotonic hyperalimentation. I will add insulin to the bag as noted above. The patient may receive lipids as her liver enzymes are normal. 2. Close monitoring of electrolytes over the next several days. Monitoring for any hyponatremia. This should not happen as the patient is receiving isotonic hyperalimentation. 3. Continue antibiotics as per Dr. Puente and as per Infectious Disease. 4. Continued pulmonary followup. 5. Hoping to see a bounce up in her white blood cell count. 6. Continue isolation precautions. 7. Continue to monitor accurate I's and O's. Thank you for letting us partake and share in the care of your patient. Delta Riley MD
[2017-06-15] MEDS: Morphine 15 mg Immediate Release Tab PO SCH ×2 (02:30→08:47)
--- NOTE | 2017-06-15 04:08 | PN ---
DATE: 06/14/2017 ONCOLOGY PROGRESS NOTE LOCATION: The patient is in room 364, bed 1. SUBJECTIVE: The patient is in neutropenic isolation. The patient is lying in bed, was sleeping, but arousable. Woke her up and had discussion with her. The patient has significant nausea with episodes of pervasive nausea occurring since early this morning, was unable to take any of her medications orally. Also has been having considerable reflux related to gastroesophageal reflux, probably combination of the mucositis from the chemotherapy and superimposed herpetic infection. The patient was getting topical Zovirax plus Famvir orally as antibiotics. Not much cough. No vomiting per se. Back pain is better. No dysuria. No leg pain. No leg swelling. The patient is afraid to eat and has not had any major dietary intake since yesterday. The patient is unable to take even the Ensure Clear. [employer] Ranger is going to be seeing her today to get a telecon and get some input as to what foods or liquids she could take by mouth in view of the mucositis and the nausea. PHYSICAL EXAMINATION: GENERAL: The patient is in no acute distress. VITAL SIGNS: Revealed T-max of 99, heart rate of 92, respirations 20, blood pressure 164/82, pulse ox is 94% on 2 liters of nasal cannula. HEENT: Head is normocephalic and atraumatic. Conjunctivae are pale. Sclerae are anicteric. Pupils are equally reactive to light and accommodation. Examination of the oropharynx reveals tongue to be coated, significant ulcerations to the mouth are noted, secondary to mucositis. Fortunately, there is no evidence of any petechiae or any ecchymotic lesions in the soft or the hard palate. Herpetic ulcerations have improved compared to 2 days ago. NECK: Supple. There is no adenopathy. No jugular venous distension noted. LUNGS: Reveal basilar crackles. No rhonchi. CARDIOVASCULAR SYSTEM: Examination of the heart reveals PMI to be in the fifth intercostal space inside the midclavicular line. S1 and S2 are normal. No gallop or murmurs heard. ABDOMEN: Soft and nontender. Liver and spleen are not palpable. No rebound, rigidity, or guarding is noted. EXTREMITIES: Reveals no cyanosis, clubbing, or edema. The patient has SCD stockings on. NEUROLOGIC: The patient is awake, alert, and oriented after being woken up from her morning nap. She is able to follow simple commands. The biggest complaints that are mentioned are nausea and heart burn. MEDICATIONS: The patient's medications were reviewed. She is on Mucomyst inhaled q.6 hours, Ambien 5 mg at bedtime, Carafate 1 g before meals and at bedtime, Claritin 10 mg daily, and Decadron 2 mg daily. She is taking her own medications of Pristiq 50 mg twice a day. She is on DuoNeb q.6 hours, Famvir 500 mg q.8 hours, Lidoderm patch to the affected area on the back for relief of pain, MiraLax q.4 hours p.r.n., Magic mouthwash q.2 hours p.r.n., the patient is on meropenem 1 g IV q.8 hours, she is on morphine extended release 30 mg q.12 hours, she is on morphine immediate release 15 mg q.6 hours, Nicoderm patch one daily 21 mg, nystatin oral suspension 500,000 units twice a day, nasal saline spray to each nostril daily, Pepcid 40 mg at bedtime, Protonix 40 mg p.o. which I am going to change to IV, Singulair 10 mg daily, Tylenol p.r.n., vancomycin 1 g IV q.12 hours, Xanax 1 mg at bedtime and 0.5 mg b.i.d. p.r.n. LABORATORY DATA: From today was reviewed and showed the following: White counts are still on the neutropenic side, white count is 0.3 with ANC of 0.03, hemoglobin is 9.5, hematocrit 28.9, automated platelet count is 27, manual count is 32. Chemistries were reviewed. Chemistry showed that the albumin is dropped to 2.9, total protein of 5.8, K is borderline at 3.5, sodium is 133, and blood sugars have been ranging between 136 and 160. AST, ALT, and alkaline phosphatase are within normal limits. ASSESSMENT NOTES AND PLAN: The patient has bilateral basilar infiltrates in the CAT scan consistent with pneumonitis and a background history of ronda counts, status post chemotherapy, status post flu, status post radiation therapy, now with pancytopenia, currently on Granix, broad-spectrum antibiotics, also having thrombocytopenia which is being monitored, all related to ronda counts, as she stated, post chemotherapy. Extensive small cell lung carcinoma affecting the liver and the bones. The patient is status post one dose of [place]redia as well, getting before the chemotherapy was started. Plan is to hold off on the along with the tranquilizers. I told the patient to hold off the morning dose and make the Protonix IV once a day. We are going to continue with the medications in the evening once she is a little bit more oriented and a little bit more alert. I have spoken to the patient in great details. I spoke to the son. He is going to get some soups to take from home. In the meantime, I have spoken to the supervisor cell maintenance, and they are going to be seeing the patient, interviewing her and turning to get started on IV PPN as the patient needs GemStar as far as nutritional intake is concerned. It still looks like patient may need to get the growth factors to the rising trend, which may take another 3 to 4 days. The patient continues to feel little bit better at least to make a sit out of bed into chair, where she can get some passive physical therapy. I encouraged her to use the incentive spirometer. She is going to get Zofran 8 mg IV q.8 hours on schedule for nausea between now and tomorrow. Decadron dose has been decreased. I might want to give her 1 dose of Solu-Medrol in order to help her with the counts and also help her with her overall sense of well-being. The concern would be how is it going to affect the sugars, and see how she does on the PPN and we are going to always control her sugar with the [place] insulin. I discussed in detail with the patient, spoke in detail with the son as well. We are still being aggressive with the patient with our aggressive supportive medical care, did not discussed yet our long-term goals and potentials. Once she is a little bit better, I am going to have palliative care team also talk to her, what her long-term objectives are and what her own personal beliefs are. Currently I feel that the patient is too disturbed physically and mentally to burst that subject at this point in time. The patient's expectations are that she is going to beat this at least for the immediate future and then we will have to, depending on how she feels, decide on further treatments in general. Family was intent on getting another opinion. So right now, our plan is to stabilize her, try to get a reassessment of her diseases and then plan on further treatments or at least recommending further treatments. Time spent with the patient and talking to the family is greater than 80 minutes, out of which more than 50% of the time was spent in direct [id number] contact with the patient. I spoke to the son in great details this morning. I spoke to Dr. Eastman as well, who agrees with the need to be aggressive with the complications created by the combination of treatments and the events that accompanied post-treatments. Labs for a.m. have been requested. Please make a note, this is a medically necessary and appropriate visit for this patient who has comorbid complex medical issues. Rudy Puente MD
[2017-06-15] MEDS: Sucralfate 1 gm/10 ml Oral Susp UD PO SCH ×2 (05:29→18:12)
[2017-06-15] MEDS: Pantoprazole 40 mg EC Tab PO SCH ×2 (05:29→05:49)
[2017-06-15] MEDS: ACYCLOVIR 5% TOP SCH ×2 (05:30→09:35)
[2017-06-15 06:59] LABS: MAGNESIUM 2.3 mg/dL (1.7-2.2)
[2017-06-15 07:21] LABS: INR 1.31 (0.93-1.08); PROTHROMBIN TIME 15.2 SECONDS (9.4-12.5)
[2017-06-15] MEDS: Insulin Reg-MEDIUM-Coverage SC SCH ×4 (08:47→22:00)
--- NOTE | 2017-06-15 08:57 | CP.PCM.PN ---
Subjective - Date & Time of Evaluation Date of Evaluation: 06/15/17 Time of Evaluation: 07:00 - Subjective Subjective: Lex Andino D.O. PGY-2, Internal Medicine Resident, Hem/Onc, Progress Note 72 year old female with a PMH of stage IV small cell lung cancer recently started chemotherapy with carboplatin and etoposide who presented for some shortness of breath, congestion, and a period of altered sensorium. Patient was seen and examined. More awake then previously and states feeling marginally better. Still painful sore in mouth and no PO intake. Discussed case with RN. Objective - Vital Signs/Intake and Output Vital Signs (last 24 hours): Temp Pulse Resp BP Pulse Ox 98 F 78 21 167/75 H 94 L 06/15/17 08:38 06/15/17 08:38 06/15/17 08:38 06/15/17 08:38 06/15/17 08:38 Intake and Output: 06/15/17 06/15/17 06:59 18:59 Intake Total 360 Balance 360 - Medications Medications: Current Medications Acetaminophen (Tylenol 325mg Tab) 650 mg PO Q4H PRN PRN Reason: pain 4-10 Acetylcysteine (Acetylcysteine 20%) 4 ml IH [id number] [facility] Last Admin: 06/15/17 08:26 Dose: Not Given Al Hydrox/Mg Hydrox/Simethicone (Maalox Plus 30 Ml) 30 ml PO Q4 PRN PRN Reason: Indigestion / Heartburn Last Admin: 06/13/17 13:18 Dose: 30 ml Albuterol/Ipratropium (Duoneb 3 Mg/0.5 Mg (3 Ml) Ud) 3 ml IH [id number] [facility] Last Admin: 06/15/17 08:26 Dose: Not Given Alprazolam (Xanax) 0.5 mg PO BID [facility] Last Admin: 06/14/17 17:35 Dose: Not Given Alprazolam (Xanax) 1 mg PO HS KIMMY PRN Reason: Protocol Last Admin: 06/14/17 21:53 Dose: 1 mg Al Hydrox/Mg Hydrox/Simethicone 30 ml/Diphenhydramine HCl 75 mg/Lidocaine 30 ml 0 ml PO Q2H PRN PRN Reason: Mouth/Throat Pain Last Admin: 06/10/17 14:38 Dose: 10 ml Dexamethasone (Decadron) 2 mg PO DAILY [facility] Last Admin: 06/14/17 11:06 Dose: 2 mg Famciclovir (Famvir) 500 mg PO Q8 [facility] Stop: 06/15/17 10:00 Last Admin: 06/15/17 05:29 Dose: 500 mg Famciclovir (Famvir) 500 mg PO Q8 [facility] Stop: 06/20/17 05:00 Famotidine (Pepcid) 40 mg PO HS [facility] Last Admin: 06/14/17 22:30 Dose: Not Given Home Med (Home Med) 0 unit TOP 5XD [facility] Last Admin: 06/15/17 05:30 Dose: 1 unit Vancomycin HCl (Vancomycin 1gm) 1 gm in 250 mls @ 167 mls/hr IVPB Q12 [facility] PRN Reason: Protocol Last Admin: 06/14/17 21:59 Dose: 167 mls/hr Meropenem 1 gm/ Sodium (Chloride) 100 mls @ 100 mls/hr IVPB Q8 [facility] PRN Reason: Protocol Stop: 06/22/17 14:01 Insulin Human Regular (Humulin R Med) 0 units SC [facility] PRN Reason: Protocol Last Admin: 06/15/17 08:47 Dose: Not Given Lidocaine (Lidoderm) 2 ea TD [facility] Last Admin: 06/14/17 21:52 Dose: 2 ea Loratadine (Claritin) 10 mg PO HS [facility] Last Admin: 06/14/17 22:30 Dose: Not Given Montelukast Sodium (Singulair) 10 mg PO HS [facility] Last Admin: 06/14/17 22:30 Dose: Not Given Morphine Sulfate (Morphine Extended Release Tab) 30 mg PO Q12 [facility] Last Admin: 06/14/17 21:59 Dose: Not Given Morphine Sulfate (Morphine Immediate Release Tab) 15 mg PO Q6H [facility] Last Admin: 06/15/17 08:47 Dose: Not Given Nicotine (Nicoderm Cq) 1 patch TD DAILY [facility] Last Admin: 06/14/17 11:09 Dose: 1 patch Non-Formulary Medication (Desvenlafaxine Succinate) 50 mg PO BID [facility] Last Admin: 06/14/17 17:33 Dose: Not Given Nystatin (Nystatin Oral Susp) 5 ml PO BID [facility] Last Admin: 06/14/17 17:34 Dose: 5 ml Ondansetron HCl (Zofran Odt) 4 mg PO TID PRN PRN Reason: Nausea/Vomiting Last Admin: 06/14/17 11:12 Dose: 4 mg Ondansetron HCl (Zofran Inj) 8 mg IVP Q8H PRN PRN Reason: Nausea/Vomiting Last Admin: 06/14/17 22:18 Dose: 8 mg Pantoprazole Sodium (Protonix Ec Tab) 40 mg PO 0600 [facility] Last Admin: 06/15/17 05:49 Dose: Not Given Pantoprazole Sodium (Protonix Inj) 40 mg IVP DAILY [facility] Saliva Substitute (Saliva Substitute) 1 ml PO Q2 PRN PRN Reason: Dry mouth Last Admin: 06/13/17 13:21 Dose: 1 ml Sodium Chloride ([place] Nasal [place]) 1 ml NS DAILY PRN PRN Reason: Nasal congestion Sucralfate (Carafate Oral Susp) 1 gm PO 0600,1600 [facility] Last Admin: 06/15/17 05:29 Dose: 1 gm Zolpidem Tartrate (Ambien) 5 mg PO HS [facility] PRN Reason: Protocol Last Admin: 06/14/17 21:55 Dose: Not Given - Labs Labs: 06/14/17 06:00 06/14/17 06:00 PT 15.2 SECONDS (9.4-12.5) H 06/15/17 06:25 INR 1.31 (0.93-1.08) H 06/15/17 06:25 APTT 21.0 Seconds (25.1-36.5) L 06/15/17 06:25 - Constitutional Appears: Non-toxic, No Acute Distress, Chronically Ill - Head Exam Head Exam: ATRAUMATIC, NORMOCEPHALIC - Eye Exam Eye Exam: EOMI, PERRL - ENT Exam ENT Exam: Mucous Membranes Dry, small lesion on lower lip appears herpetic - Neck Exam Neck exam: Positive for: Normal Inspection - Respiratory Exam Respiratory Exam: Clear to Auscultation Bilateral, Rales, Rhonchi, Wheezes. absent: Accessory Muscle Use, Respiratory Distress - Cardiovascular Exam Cardiovascular Exam: RRR, +S1, +S2. absent: Gallop, Rubs - GI/Abdominal Exam GI & Abdominal Exam: Normal Bowel Sounds, Soft. absent: Distended, Tenderness - Extremities Exam Extremities exam: Positive for: pedal edema (trace). Negative for: calf tenderness - Back Exam Back exam: absent: CVA tenderness (L), CVA tenderness (R), paraspinal tenderness - Neurological Exam Neurological exam: Alert, Oriented x3 - Psychiatric Exam Psychiatric exam: Normal Affect, Normal Mood - Skin Skin Exam: Dry, Warm Assessment and Plan - Assessment and Plan (Free Text) Assessment: 72 year old female with a PMH of stage IV small cell lung cancer recently started chemotherapy with carboplatin and etoposide who presented for some shortness of breath, congestion, found to have multifocal pneumonia as well as neutropenic sepsis Plan: Multifocal pneumonia Neutropenic sepsis Pancytopenia Stage IV small cell lung cancer s/p XRT and chemotherapy w/ carboplatin and etoposide Herpetic mouth lesions Esophagitis Poor oral intake On merrem and vanco day 8 per ID recs On famciclovir IV/acyclovir cream Nephro consulted, will be starting hyperalimentation today Decadron dose decreased Afebrile, tylenol PRN fevers Continue with granix until ANC > 1000 for 2 days, still on neutropenic precautions Pulm following, recs reviewed and appreciated Continue nebulizers, mucomyst On protonix and famotidine as well as sucralfate On SCDs for DVT ppx Patient was seen and examined and case was discussed in detail with attending physician
[2017-06-15] MEDS: DESVENLAFAXINE SUCCINATE 50 MG PO SCH (09:35)
[2017-06-15] MEDS: Nystatin 100,000 Units/ml Oral Susp 5 ml UD PO SCH ×2 (09:36→18:12)
[2017-06-15] MEDS: Vancomycin 1gm in NS 250ml 1 GM/250 ML BAG IVPB SCH ×2 (09:38→22:15)
[2017-06-15] MEDS ORDERED: Morphine 15 mg Immediate Release Tab PO PRN (10:04)
[2017-06-15 10:05] LABS: BASO # 0.04 K/mm3 (0.0-2.0); BASO % 3.1 % (0.0-3.0); EOS % 0.8 % (1.5-5.0); GRAN # 0.48 (1.4-6.5); GRAN % 37.1 % (50.0-68.0); HEMOGLOBIN 8.6 g/dL (12.0-16.0); LYMPH # 0.4 (1.2-3.4); LYMPH % 32.6 % (22.0-35.0); MEAN CELL VOLUME 87.2 fl (80.0-105.0); MEAN CORPUSCULAR HEMOGLOBIN 28.9 pg (25.0-35.0); MEAN CORPUSCULAR HGB CONC 33.1 g/dl (31.0-37.0); MONO # 0.3 (0.1-0.6); MONO % 26.4 % (1.0-6.0); RBC 2.98 10^6/uL (3.5-6.1); RED CELL DISTRIBUTION WIDTH 14.4 % (11.5-14.5)
[2017-06-15 10:11] LABS: ALB/GLOB RATIO 1.1 (1.1-1.8); ALBUMIN 2.8 g/dL (3.0-4.8); ALT/SGPT 32 U/L (7-56); AST/SGOT 27 U/L (14-36); BLOOD UREA NITROGEN 7 mg/dL (7-21); CALCIUM 7.5 mg/dL (8.4-10.5); GFR AFRICAN-AMERICAN > 60; GFR NON-AFRICAN AMERICAN > 60; PLATELET COUNT 25 10^3/uL (120.0-450.0); WHITE BLOOD COUNT 1.3 10^3/ul (4.5-11.0)
[2017-06-15] MEDS ORDERED: Potassium Phosphate 3 mmol/ml Inj IV ONE ×2 (10:11)
[2017-06-15] MEDS ORDERED: Potassium Phosphate 30 MMOLE in Sodium Chloride 0.9% 250 ML IVPB ONE (10:15)
[2017-06-15 11:16] LABS: ATYPICAL LYMPHOCYTE 2 % (0.0-0.0); BAND 4 % (0-2); LYMPHOCYTE 17 % (22.0-35.0); NEUTROPHIL 70 % (50.0-70.0)
[2017-06-15 11:17] LABS: ANISOCYTOSIS 1+; HYPOCHROMIA 2+; METAMYELOCYTE 1 %; MONOCYTE 4 % (1.0-6.0); MYELOCYTE 2 %; PLATELET ESTIMATE LOW (NORMAL); POLYCHROMASIA SLIGHT
[2017-06-15] MEDS: Meropenem 1 GM in Sodium Chloride 0.9% 100 ML IVPB SCH ×2 (15:00→22:15)
--- NOTE | 2017-06-15 17:27 | CP.PCM.PN ---
Subjective - Date & Time of Evaluation Date of Evaluation: 06/15/17 Time of Evaluation: 10:20 - Subjective Subjective: Still having some weakness but feeling better. No fevers. Objective - Vital Signs/Intake and Output Vital Signs (last 24 hours): Temp Pulse Resp BP Pulse Ox 97.4 F L 78 20 153/80 H 96 06/14/17 16:00 06/15/17 05:23 06/14/17 16:00 06/14/17 16:00 06/14/17 16:00 Intake and Output: 06/15/17 06/15/17 06:59 18:59 Intake Total 360 Balance 360 - Medications Medications: Current Medications Acetaminophen (Tylenol 325mg Tab) 650 mg PO Q4H PRN PRN Reason: pain 4-10 Acetylcysteine (Acetylcysteine 20%) 4 ml IH [id number] [facility] Last Admin: 06/15/17 08:26 Dose: Not Given Al Hydrox/Mg Hydrox/Simethicone (Maalox Plus 30 Ml) 30 ml PO Q4 PRN PRN Reason: Indigestion / Heartburn Last Admin: 06/13/17 13:18 Dose: 30 ml Albuterol/Ipratropium (Duoneb 3 Mg/0.5 Mg (3 Ml) Ud) 3 ml IH [id number] [facility] Last Admin: 06/15/17 08:26 Dose: Not Given Alprazolam (Xanax) 0.5 mg PO BID [facility] Last Admin: 06/14/17 17:35 Dose: Not Given Alprazolam (Xanax) 1 mg PO HS KIMMY PRN Reason: Protocol Last Admin: 06/14/17 21:53 Dose: 1 mg Al Hydrox/Mg Hydrox/Simethicone 30 ml/Diphenhydramine HCl 75 mg/Lidocaine 30 ml 0 ml PO Q2H PRN PRN Reason: Mouth/Throat Pain Last Admin: 06/10/17 14:38 Dose: 10 ml Dexamethasone (Decadron) 2 mg PO DAILY [facility] Last Admin: 06/14/17 11:06 Dose: 2 mg Famciclovir (Famvir) 500 mg PO Q8 [facility] Stop: 06/15/17 10:00 Last Admin: 06/15/17 05:29 Dose: 500 mg Famciclovir (Famvir) 500 mg PO Q8 [facility] Stop: 06/20/17 05:00 Famotidine (Pepcid) 40 mg PO HS [facility] Last Admin: 06/14/17 22:30 Dose: Not Given Home Med (Home Med) 0 unit TOP 5XD [facility] Last Admin: 06/15/17 05:30 Dose: 1 unit Vancomycin HCl (Vancomycin 1gm) 1 gm in 250 mls @ 167 mls/hr IVPB Q12 [facility] PRN Reason: Protocol Last Admin: 06/14/17 21:59 Dose: 167 mls/hr Meropenem 1 gm/ Dextrose 100 mls @ 100 mls/hr IVPB Q8 [facility] PRN Reason: Protocol Stop: 06/22/17 14:01 Insulin Human Regular (Humulin R Med) 0 units SC ACHS [facility] PRN Reason: Protocol Last Admin: 06/14/17 22:30 Dose: Not Given Lidocaine (Lidoderm) 2 ea TD [facility] Last Admin: 06/14/17 21:52 Dose: 2 ea Loratadine (Claritin) 10 mg PO [facility] Last Admin: 06/14/17 22:30 Dose: Not Given Montelukast Sodium (Singulair) 10 mg PO [facility] Last Admin: 06/14/17 22:30 Dose: Not Given Morphine Sulfate (Morphine Extended Release Tab) 30 mg PO Q12 [facility] Last Admin: 06/14/17 21:59 Dose: Not Given Morphine Sulfate (Morphine Immediate Release Tab) 15 mg PO Q6H [facility] Last Admin: 06/15/17 02:30 Dose: Not Given Nicotine (Nicoderm Cq) 1 patch TD DAILY [facility] Last Admin: 06/14/17 11:09 Dose: 1 patch Non-Formulary Medication (Desvenlafaxine Succinate) 50 mg PO BID [facility] Last Admin: 06/14/17 17:33 Dose: Not Given Nystatin (Nystatin Oral Susp) 5 ml PO BID [facility] Last Admin: 06/14/17 17:34 Dose: 5 ml Ondansetron HCl (Zofran Odt) 4 mg PO TID PRN PRN Reason: Nausea/Vomiting Last Admin: 06/14/17 11:12 Dose: 4 mg Ondansetron HCl (Zofran Inj) 8 mg IVP Q8H PRN PRN Reason: Nausea/Vomiting Last Admin: 06/14/17 22:18 Dose: 8 mg Pantoprazole Sodium (Protonix Ec Tab) 40 mg PO 0600 [facility] Last Admin: 06/15/17 05:49 Dose: Not Given Pantoprazole Sodium (Protonix Inj) 40 mg IVP DAILY [facility] Saliva Substitute (Saliva Substitute) 1 ml PO Q2 PRN PRN Reason: Dry mouth Last Admin: 06/13/17 13:21 Dose: 1 ml Sodium Chloride ([place] Nasal [place]) 1 ml NS DAILY PRN PRN Reason: Nasal congestion Sucralfate (Carafate Oral Susp) 1 gm PO 0600,1600 [facility] Last Admin: 06/15/17 05:29 Dose: 1 gm Zolpidem Tartrate (Ambien) 5 mg PO HS [facility] PRN Reason: Protocol Last Admin: 06/14/17 21:55 Dose: Not Given - Labs Labs: 06/14/17 06:00 06/14/17 06:00 PT 15.2 SECONDS (9.4-12.5) H 06/15/17 06:25 INR 1.31 (0.93-1.08) H 06/15/17 06:25 APTT 21.0 Seconds (25.1-36.5) L 06/15/17 06:25 - Constitutional Appears: Chronically Ill - Head Exam Head Exam: NORMAL INSPECTION - ENT Exam ENT Exam: Mucous Membranes Moist - Neck Exam Neck Exam: absent: Meningismus - Respiratory Exam Respiratory Exam: Decreased Breath Sounds - Cardiovascular Exam Cardiovascular Exam: +S1, +S2 - GI/Abdominal Exam GI & Abdominal Exam: Soft. absent: Tenderness Assessment and Plan - Assessment and Plan (Free Text) Plan: Assessment sepsis due to HCAP with neutropenia history of Systemic viral illness with Influenza and acute bronchitis VRE in the urine, asymptomatic DM HTN depression lower back tumor obesity with BMI 30 Plan continue Vancomycin and Merrem to complete 4-7 days (day 7 today) - will d/c after today discussed with Dr. Puente
[2017-06-15] MEDS: Fat Emulsion 20% IV 250 ML IV SCH (18:12)
[2017-06-15] MEDS: [UNRECOGNIZED DRUG - NUTRITION] IV SCH (18:13)
--- NOTE | 2017-06-15 20:35 | PN ---
DATE: 06/15/2017 PULMONARY PROGRESS NOTE REFERRING PHYSICIAN: Dr. Puente. SUBJECTIVE: She is lying in the bed, head at 45 degrees, feels a little better today. Oral mucosa is less sore today, able to drink and eat little bit. No nausea. No vomiting. No diarrhea. No leg pain or leg swelling. OBJECTIVE: GENERAL: Not in acute distress. VITAL SIGNS: Temperature is 98, heart rate is 78, respiratory rate is 20, blood pressure 167/75, pulse ox 94% on 2 L nasal cannula. HEENT: Moist mucous membrane, has some oral ulcers, healing well. NECK: Supple. No JVD. LUNGS: Reveal a few scattered rhonchi. HEART: S1, S2. ABDOMEN: Soft and nontender. No organomegaly. EXTREMITIES: No edema. NEUROLOGIC: Awake and alert. Follows simple command. MEDICATIONS: She is on Mucomyst inhaler q. 6 hours, Ambien 5 mg at bedtime p.r.n., Benadryl 25 mg, also Carafate 1 g twice day, Claritin 10 mg daily, Decadron 2 mg daily, DuoNeb q. 6 hours, Famvir 500 mg q. 8 hours, insulin coverage, IV Intralipid, also getting Lidoderm patch to affected area, MiraLax 30 mL q. 4 hours p.r.n., Magic mouthwash swish and spit q. 2 hours p.r.n., meropenem 1 g IV q. 8 hour, morphine extended release 15 mg q.12 hours, morphine immediate release 15 mg q. 6 hours p.r.n., also going to starting TPN, Nicoderm patch daily, nystatin oral swish, nasal saline 2 sprays to each nostril daily, Pepcid 40 mg daily, potassium IV being given, Protonix 40 mg daily, saliva substitute q. 12 hours p.r.n., Singulair 10 mg daily, Tylenol p.r.n. basis, vancomycin 1 g IV q.12 hours, Xanax 0.5 mg twice a day, and Zofran 8 mg q.8 hours p.r.n. LABORATORY DATA: Shows hemoglobin 8.5, hematocrit 26.7, WBC 1.3, platelet count is 25. Fibrinogen degradation product over 10. Sodium is 137, potassium 2.7, chloride 103, bicarbonate is 23, BUN 7, creatinine 0.3, glucose 140. Calcium is 7.5, phosphorus , magnesium 2.3. Albumin 2.8. Microbiology: Urine culture has been negative. Blood culture negative. 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 Pulmonary point of view, continue bronchodilator. Keep head at 45 degrees, supplement oxygen, pain management. I agree with IV, TPN, encourage p.o. intake, gastric prophylaxis, on steroids. SCD to lower extremity. Thank you and we will follow with you. Robert Eastman MD
--- NOTE | 2017-06-15 21:00 | PN ---
DATE: 06/14/2017 SUBJECTIVE: The patient is seen lying in bed. She is awake. She is alert. She reports that her mouth sores are somewhat better. She had some apple juice and it tasted really good. She denies any pain. She denies any shortness of breath. PHYSICAL EXAMINATION: GENERAL: Elderly lady lying in bed. VITAL SIGNS: Blood pressure 150/70, heart rate 70, respiratory rate 18, temperature 97.8. HEENT: Normocephalic, atraumatic, positive pallor. NECK: Supple, no JVD. LUNGS: Bilateral equal air entry, no rales. CARDIAC: S1 and S2. Regular rate and rhythm, no murmur, no rub. ABDOMEN: Obese, distended, soft, nontender, bowel sounds present. EXTREMITIES: No lower extremity edema. INTAKE AND OUTPUT: 1580/900. LABORATORY DATA: WBC 1.3, hemoglobin 8.6, hematocrit 25. Sodium 137, potassium 3.3, chloride 103, CO2 of 23, BUN 7, creatinine 0.3, glucose 140, calcium 7.5, phosphorus 1.2, magnesium 2.3, albumin 2.8. Cultures, no growth so far. CURRENT MEDICATIONS: Ambien, Carafate, Claritin, Decadron, DuoNeb, Famvir, insulin, Maalox, meropenem 1 g q. 8, hyperal to start today, nystatin, [place] spray, Protonix, Singulair, and Tylenol. ASSESSMENT: 1. Pancytopenia. 2. Severe mucositis. 3. Hypokalemia. 4. Hypophosphatemia. 5. 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 6. [id number] diabetes mellitus. 7. Mild hypocalcemia. PLAN: 1. KCl 20 mEq x1 rider. 2. Agree with potassium phosphate supplementation. 3. Hyperal to start today. 4. Push p.o. intake as tolerated. Dana Hawkins MD
[2017-06-15] MEDS: Morphine 15 mg SR Tab PO SCH (22:08)
[2017-06-15] MEDS: Morphine 30 mg SR Tab PO SCH (22:16)
[2017-06-15] MEDS: Lidocaine 5% Patch TD SCH (22:17)
[2017-06-16] MEDS: Albuterol-Ipratrop 3 mg / 0.5 (3 ml) UD IH SCH ×4 (01:47→20:45)
[2017-06-16] MEDS: Acetylcysteine 20% Inhal Soln (4ml) IH SCH ×4 (01:47→20:45)
[2017-06-16] MEDS: ACYCLOVIR 5% TOP SCH ×6 (01:48→21:34)
[2017-06-16] MEDS: Sucralfate 1 gm/10 ml Oral Susp UD PO SCH ×2 (06:13→17:51)
[2017-06-16] MEDS: Meropenem 1 GM in Sodium Chloride 0.9% 100 ML IVPB SCH (06:15)
[2017-06-16 07:38] LABS: MAGNESIUM 2.3 mg/dL (1.7-2.2)
[2017-06-16] MEDS: Insulin Reg-MEDIUM-Coverage SC SCH ×4 (08:26→22:37)
[2017-06-16 08:40] LABS: ALBUMIN 2.6 g/dL (3.0-4.8); ALT/SGPT 39 U/L (7-56); AST/SGOT 26 U/L (14-36); BLOOD UREA NITROGEN 8 mg/dL (7-21); CALCIUM 7.7 mg/dL (8.4-10.5); GFR AFRICAN-AMERICAN > 60; GFR NON-AFRICAN AMERICAN > 60
[2017-06-16] MEDS ORDERED: Potassium Chloride 20 mEq ER Tab PO ONE (08:56)
[2017-06-16] MEDS ORDERED: Potassium Phosphate 3 mmol/ml Inj IVPB ONE (09:00)
[2017-06-16 09:14] LABS: BASO # 0.01 K/mm3 (0.0-2.0); BASO % 0.3 % (0.0-3.0); EOS % 0.3 % (1.5-5.0); GRAN # 2.36 (1.4-6.5); LYMPH # 0.7 (1.2-3.4); LYMPH % 21.3 % (22.0-35.0); MEAN CELL VOLUME 88.2 fl (80.0-105.0); MEAN CORPUSCULAR HEMOGLOBIN 28.7 pg (25.0-35.0); MEAN CORPUSCULAR HGB CONC 32.5 g/dl (31.0-37.0); MEAN PLATELET VOLUME 10.3 fl (7.0-11.0); MONO # 0.1 (0.1-0.6); MONO % 4.1 % (1.0-6.0); RBC 2.79 10^6/uL (3.5-6.1); RED CELL DISTRIBUTION WIDTH 14.4 % (11.5-14.5); WHITE BLOOD COUNT 3.2 10^3/ul (4.5-11.0)
[2017-06-16] MEDS ORDERED: Potassium Phosphate 30 MMOLE in Sodium Chloride 0.9% 250 ML IVPB ONE (09:15)
[2017-06-16] MEDS ORDERED: Lidocaine 2% Inj (20ml) ONE (09:59)
[2017-06-16] MEDS ORDERED: Midazolam 2 MG/2 ML VIAL ONE (10:00)
[2017-06-16] MEDS ORDERED: HEPARIN SODIUM/NS 0 ML IV ONE (10:00)
[2017-06-16] MEDS: Vancomycin 1gm in NS 250ml 1 GM/250 ML BAG IVPB SCH (10:05)
[2017-06-16] MEDS: Nystatin 100,000 Units/ml Oral Susp 5 ml UD PO SCH ×2 (10:05→17:47)
[2017-06-16] MEDS: Morphine 15 mg SR Tab PO SCH ×2 (10:06→21:31)
[2017-06-16] MEDS: DESVENLAFAXINE SUCCINATE 50 MG PO SCH ×2 (10:08→17:47)
--- NOTE | 2017-06-16 10:55 | CP.PCM.PN ---
Subjective - Date & Time of Evaluation Date of Evaluation: 06/16/17 Time of Evaluation: 07:20 - Subjective Subjective: Lex Andino D.O. PGY-2, Internal Medicine Resident, Hem/Onc, Progress Note 72 year old female with a PMH of stage IV small cell lung cancer recently started chemotherapy with carboplatin and etoposide who presented for some shortness of breath, congestion, and a period of altered sensorium. Patient was seen and examined at bedside. Still somewhat tired but states was able to have some intake PO last night and ate half her dinner. Cough is improved. Did not get up and walk yesterday states felt too weak. Objective - Vital Signs/Intake and Output Vital Signs (last 24 hours): Temp Pulse Resp BP Pulse Ox 97.5 F L 75 18 150/78 94 L 06/16/17 08:07 06/16/17 08:07 06/16/17 08:07 06/16/17 08:07 06/16/17 08:07 Intake and Output: 06/16/17 06/16/17 06:59 18:59 Intake Total 180 Balance 180 - Medications Medications: Current Medications Acetaminophen (Tylenol 325mg Tab) 650 mg PO Q4H PRN PRN Reason: pain 4-10 Last Admin: 06/15/17 16:25 Dose: 650 mg Acetylcysteine (Acetylcysteine 20%) 4 ml IH [id number] [facility] Last Admin: 06/16/17 07:42 Dose: Not Given Al Hydrox/Mg Hydrox/Simethicone (Maalox Plus 30 Ml) 30 ml PO Q4 PRN PRN Reason: Indigestion / Heartburn Last Admin: 06/13/17 13:18 Dose: 30 ml Albuterol/Ipratropium (Duoneb 3 Mg/0.5 Mg (3 Ml) Ud) 3 ml IH [id number] [facility] Last Admin: 06/16/17 07:42 Dose: 3 ml Alprazolam (Xanax) 0.5 mg PO BID [facility] Last Admin: 06/16/17 10:06 Dose: 0.5 mg Alprazolam (Xanax) 1 mg PO HS PRN; Protocol PRN Reason: Insomnia Al Hydrox/Mg Hydrox/Simethicone 30 ml/Diphenhydramine HCl 75 mg/Lidocaine 30 ml 0 ml PO Q2H PRN PRN Reason: Mouth/Throat Pain Last Admin: 06/10/17 14:38 Dose: 10 ml Dexamethasone (Decadron) 2 mg PO DAILY [facility] Last Admin: 06/16/17 10:07 Dose: 2 mg Famciclovir (Famvir) 500 mg PO Q8 [facility] Stop: 06/20/17 05:00 Famotidine (Pepcid) 40 mg PO HS [facility] Last Admin: 06/15/17 22:08 Dose: 40 mg Home Med (Home Med) 0 unit TOP 5XD [facility] Last Admin: 06/16/17 10:09 Dose: 1 unit Vancomycin HCl (Vancomycin 1gm) 1 gm in 250 mls @ 167 mls/hr IVPB Q12 [facility] PRN Reason: Protocol Last Admin: 06/16/17 10:05 Dose: 167 mls/hr Fat Emulsion Intravenous (Intralipid 20%) 250 mls @ 21 mls/hr IV DAILY@1800 [facility] Stop: 06/18/17 17:59 Last Admin: 06/15/17 18:12 Dose: 21 mls/hr Multivitamins/Vitamin C 10 ml/Chromium/Copper/Manganese/Zinc 1 ml/ Insulin Human Regular 10 units/ Amino Acids 2,011.1 mls @ 83 mls/hr IV .Q24H [facility] Stop: 06/18/17 17:59 Last Admin: 06/15/17 18:13 Dose: 83 mls/hr Meropenem (Merrem Iv 1 Gm Premix) 50 mls @ 100 mls/hr IVPB Q8 [facility] Potassium Phosphate 30 mmole/ (Sodium Chloride) 260 mls @ 42.5 mls/hr IVPB ONCE ONE Stop: 06/16/17 15:22 Last Admin: 06/16/17 10:19 Dose: 42.5 mls/hr Insulin Human Regular (Humulin R Med) 0 units SC ACHS [facility] PRN Reason: Protocol Last Admin: 06/16/17 08:26 Dose: Not Given Lidocaine (Lidoderm) 2 ea TD [facility] Last Admin: 06/15/17 22:17 Dose: 2 ea Loratadine (Claritin) 10 mg PO HS [facility] Last Admin: 06/15/17 22:08 Dose: 10 mg Montelukast Sodium (Singulair) 10 mg PO HS [facility] Last Admin: 06/15/17 22:08 Dose: 10 mg Morphine Sulfate (Morphine Extended Release Tab) 15 mg PO Q12 [facility] Last Admin: 06/16/17 10:06 Dose: 15 mg Morphine Sulfate (Morphine Immediate Release Tab) 15 mg PO Q6H PRN PRN Reason: Pain, severe (8-10) Nicotine (Nicoderm Cq) 1 patch TD DAILY [facility] Last Admin: 06/16/17 10:10 Dose: 1 patch Non-Formulary Medication (Desvenlafaxine Succinate) 50 mg PO BID [facility] Last Admin: 06/16/17 10:08 Dose: Not Given Nystatin (Nystatin Oral Susp) 5 ml PO BID [facility] Last Admin: 06/16/17 10:05 Dose: 5 ml Ondansetron HCl (Zofran Odt) 4 mg PO TID PRN PRN Reason: Nausea/Vomiting Last Admin: 06/14/17 11:12 Dose: 4 mg Ondansetron HCl (Zofran Inj) 8 mg IVP Q8H PRN PRN Reason: Nausea/Vomiting Last Admin: 06/14/17 22:18 Dose: 8 mg Pantoprazole Sodium (Protonix Inj) 40 mg IVP DAILY [facility] Last Admin: 06/16/17 10:05 Dose: 40 mg Saliva Substitute (Saliva Substitute) 1 ml PO Q2 PRN PRN Reason: Dry mouth Last Admin: 06/13/17 13:21 Dose: 1 ml Sodium Chloride ([place] Nasal [place]) 1 ml NS DAILY PRN PRN Reason: Nasal congestion Sucralfate (Carafate Oral Susp) 1 gm PO 0600,1600 [facility] Last Admin: 06/16/17 06:13 Dose: 1 gm Zolpidem Tartrate (Ambien) 5 mg PO HS [facility] PRN Reason: Protocol Last Admin: 06/15/17 22:00 Dose: Not Given - Labs Labs: 06/16/17 09:00 06/16/17 07:00 PT 15.2 SECONDS (9.4-12.5) H 06/15/17 06:25 INR 1.31 (0.93-1.08) H 06/15/17 06:25 APTT 21.0 Seconds (25.1-36.5) L 06/15/17 06:25 - Constitutional Appears: Non-toxic, No Acute Distress, Chronically Ill - Head Exam Head Exam: ATRAUMATIC, NORMOCEPHALIC - Eye Exam Eye Exam: EOMI, PERRL - ENT Exam ENT Exam: Mucous Membranes Dry, small lesion on lower lip appears herpetic - Neck Exam Neck exam: Positive for: Normal Inspection - Respiratory Exam Respiratory Exam: Clear to Auscultation Bilateral, Rales, Rhonchi, Wheezes. absent: Accessory Muscle Use, Respiratory Distress - Cardiovascular Exam Cardiovascular Exam: RRR, +S1, +S2. absent: Gallop, Rubs - GI/Abdominal Exam GI & Abdominal Exam: Normal Bowel Sounds, Soft. absent: Distended, Tenderness - Extremities Exam Extremities exam: Positive for: pedal edema (trace). Negative for: calf tenderness - Back Exam Back exam: absent: CVA tenderness (L), CVA tenderness (R), paraspinal tenderness - Neurological Exam Neurological exam: Alert, Oriented x3 - Psychiatric Exam Psychiatric exam: Normal Affect, Normal Mood - Skin Skin Exam: Dry, Warm Assessment and Plan - Assessment and Plan (Free Text) Assessment: 72 year old female with a PMH of stage IV small cell lung cancer recently started chemotherapy with carboplatin and etoposide who presented for some shortness of breath, congestion, found to have multifocal pneumonia as well as neutropenic sepsis Plan: Multifocal pneumonia/HCAP Neutropenic sepsis Pancytopenia - improving Stage IV small cell lung cancer s/p XRT and chemotherapy w/ carboplatin and etoposide Herpetic mouth lesions Esophagitis/mucositis Poor oral intake Hypophosphatemia Hypokalemia Finished merrem/vanco course On famciclovir IV/acyclovir cream Nephro following, on hyperalimentation, will supplement K and Phos today Pulm following, recs reviewed and appreciated Continue decadron Continue nebulizers, mucomyst Will discontinue granix, ANC today is 2368, will D/C isolation Given her continued anemia despite improving WBC, will given aranesp and venofer today Still with significantly low platelets which need to improve before we can assure that this is bone marrow recovery On protonix and famotidine as well as sucralfate On SCDs for DVT ppx Plan for possible transfer to TCU tomorrow Patient was seen and examined and case was discussed in detail with attending physician
[2017-06-16] MEDS ORDERED: Darbepoetin Alfa 100 mcg/ml Inj IVP ONE (11:00)
--- NOTE | 2017-06-16 12:19 | CP.PCM.PN ---
Subjective - Date & Time of Evaluation Date of Evaluation: 06/16/17 Time of Evaluation: 10:10 - Subjective Subjective: Comfortable in bed, no fevers. Objective - Vital Signs/Intake and Output Vital Signs (last 24 hours): Temp Pulse Resp BP Pulse Ox 97.5 F L 75 18 150/78 94 L 06/16/17 08:07 06/16/17 08:07 06/16/17 08:07 06/16/17 08:07 06/16/17 08:07 Intake and Output: 06/16/17 06/16/17 06:59 18:59 Intake Total 180 Balance 180 - Medications Medications: Current Medications Acetaminophen (Tylenol 325mg Tab) 650 mg PO Q4H PRN PRN Reason: pain 4-10 Last Admin: 06/15/17 16:25 Dose: 650 mg Acetylcysteine (Acetylcysteine 20%) 4 ml IH [id number] [facility] Last Admin: 06/16/17 07:42 Dose: Not Given Al Hydrox/Mg Hydrox/Simethicone (Maalox Plus 30 Ml) 30 ml PO Q4 PRN PRN Reason: Indigestion / Heartburn Last Admin: 06/13/17 13:18 Dose: 30 ml Albuterol/Ipratropium (Duoneb 3 Mg/0.5 Mg (3 Ml) Ud) 3 ml IH [id number] [facility] Last Admin: 06/16/17 07:42 Dose: 3 ml Alprazolam (Xanax) 0.5 mg PO BID [facility] Last Admin: 06/15/17 22:16 Dose: Not Given Alprazolam (Xanax) 1 mg PO HS PRN; Protocol PRN Reason: Insomnia Al Hydrox/Mg Hydrox/Simethicone 30 ml/Diphenhydramine HCl 75 mg/Lidocaine 30 ml 0 ml PO Q2H PRN PRN Reason: Mouth/Throat Pain Last Admin: 06/10/17 14:38 Dose: 10 ml Dexamethasone (Decadron) 2 mg PO DAILY [facility] Last Admin: 06/15/17 09:34 Dose: 2 mg Famciclovir (Famvir) 500 mg PO Q8 [facility] Stop: 06/20/17 05:00 Famotidine (Pepcid) 40 mg PO HS [facility] Last Admin: 06/15/17 22:08 Dose: 40 mg Home Med (Home Med) 0 unit TOP 5XD [facility] Last Admin: 06/16/17 06:15 Dose: Not Given Vancomycin HCl (Vancomycin 1gm) 1 gm in 250 mls @ 167 mls/hr IVPB Q12 [facility] PRN Reason: Protocol Last Admin: 06/15/17 22:15 Dose: 167 mls/hr Fat Emulsion Intravenous (Intralipid 20%) 250 mls @ 21 mls/hr IV DAILY@1800 [facility] Stop: 06/18/17 17:59 Last Admin: 06/15/17 18:12 Dose: 21 mls/hr Multivitamins/Vitamin C 10 ml/Chromium/Copper/Manganese/Zinc 1 ml/ Insulin Human Regular 10 units/ Amino Acids 2,011.1 mls @ 83 mls/hr IV .Q24H [facility] Stop: 06/18/17 17:59 Last Admin: 06/15/17 18:13 Dose: 83 mls/hr Meropenem (Merrem Iv 1 Gm Premix) 50 mls @ 100 mls/hr IVPB Q8 [facility] Insulin Human Regular (Humulin R Med) 0 units SC ACHS [facility] PRN Reason: Protocol Last Admin: 06/16/17 08:26 Dose: Not Given Lidocaine (Lidoderm) 2 ea TD HS [facility] Last Admin: 06/15/17 22:17 Dose: 2 ea Loratadine (Claritin) 10 mg PO HS [facility] Last Admin: 06/15/17 22:08 Dose: 10 mg Montelukast Sodium (Singulair) 10 mg PO HS [facility] Last Admin: 06/15/17 22:08 Dose: 10 mg Morphine Sulfate (Morphine Extended Release Tab) 15 mg PO Q12 [facility] Last Admin: 06/15/17 22:08 Dose: 15 mg Morphine Sulfate (Morphine Immediate Release Tab) 15 mg PO Q6H PRN PRN Reason: Pain, severe (8-10) Nicotine (Nicoderm Cq) 1 patch TD DAILY [facility] Last Admin: 06/15/17 09:36 Dose: 1 patch Non-Formulary Medication (Desvenlafaxine Succinate) 50 mg PO BID [facility] Last Admin: 06/15/17 09:35 Dose: Not Given Nystatin (Nystatin Oral Susp) 5 ml PO BID [facility] Last Admin: 06/15/17 18:12 Dose: 5 ml Ondansetron HCl (Zofran Odt) 4 mg PO TID PRN PRN Reason: Nausea/Vomiting Last Admin: 06/14/17 11:12 Dose: 4 mg Ondansetron HCl (Zofran Inj) 8 mg IVP Q8H PRN PRN Reason: Nausea/Vomiting Last Admin: 06/14/17 22:18 Dose: 8 mg Pantoprazole Sodium (Protonix Inj) 40 mg IVP DAILY [facility] Last Admin: 06/15/17 09:36 Dose: 40 mg Saliva Substitute (Saliva Substitute) 1 ml PO Q2 PRN PRN Reason: Dry mouth Last Admin: 06/13/17 13:21 Dose: 1 ml Sodium Chloride ([place] Nasal [place]) 1 ml NS DAILY PRN PRN Reason: Nasal congestion Sucralfate (Carafate Oral Susp) 1 gm PO 0600,1600 [facility] Last Admin: 06/16/17 06:13 Dose: 1 gm Zolpidem Tartrate (Ambien) 5 mg PO HS [facility] PRN Reason: Protocol Last Admin: 06/15/17 22:00 Dose: Not Given - Labs Labs: 06/15/17 09:45 06/16/17 07:00 PT 15.2 SECONDS (9.4-12.5) H 06/15/17 06:25 INR 1.31 (0.93-1.08) H 06/15/17 06:25 APTT 21.0 Seconds (25.1-36.5) L 06/15/17 06:25 - Constitutional Appears: Chronically Ill - Head Exam Head Exam: NORMAL INSPECTION - Respiratory Exam Respiratory Exam: Decreased Breath Sounds - Cardiovascular Exam Cardiovascular Exam: +S1, +S2 - GI/Abdominal Exam GI & Abdominal Exam: Soft. absent: Tenderness Assessment and Plan - Assessment and Plan (Free Text) Plan: Assessment sepsis due to HCAP with neutropenia history of Systemic viral illness with Influenza and acute bronchitis VRE in the urine, asymptomatic DM HTN depression lower back tumor obesity with BMI 30 Plan continue Vancomycin and Merrem to complete 4-7 days (day 8 today) - will d/c today and monitor clinically
[2017-06-16] MEDS ORDERED: Potassium Phosphate 15 MMOLE in Sodium Chloride 0.9% 250 ML IV ONE (12:54)
[2017-06-16] MEDS ORDERED: Potassium Chloride 20 mEq 100 ML IV SCH (13:00)
[2017-06-16] MEDS ORDERED: Meropenem IV 1 gm in NS 50 ML IVPB SCH (14:00)
[2017-06-16] MEDS ORDERED: Meropenem 1g/100 mL NS IVPB IVPB SCH (14:00)
[2017-06-16] MEDS: [UNRECOGNIZED DRUG - NUTRITION] IV SCH (17:51)
[2017-06-16] MEDS: Fat Emulsion 20% IV 250 ML IV SCH (17:58)
[2017-06-16] MEDS: Lidocaine 5% Patch TD SCH (21:32)
[2017-06-17] MEDS: Acetylcysteine 20% Inhal Soln (4ml) IH SCH ×4 (01:48→20:05)
--- NOTE | 2017-06-17 02:17 | PN ---
DATE: 06/16/2017 PULMONARY PROGRESS NOTE REFERRING PHYSICIAN: Dr. Puente. SUBJECTIVE: She is lying in the bed, head at 45 degrees, feels a little better today. Oral ulcer is improved, able to swallow a little better. Not much cough, no sputum production. No nausea, no leg pain, no leg swelling. OBJECTIVE: GENERAL: In no acute distress. VITAL SIGNS: Temperature is 98, heart rate 68, respiratory rate is 18, blood pressure 124/68, pulse ox 96% on 2 liters nasal cannula. HEENT: Moist mucous membrane. Has multiple oral ulcers. NECK: Supple. No JVD. LUNGS: Have a few scattered rhonchi. HEART: S1 and S2. ABDOMEN: Soft, nontender and nondistended. EXTREMITIES: No edema. NEUROLOGICAL: Awake and alert. Follows simple command. MEDICATIONS: She is on Mucomyst 20% inhaled q. 6 hours, Ambien 5 mg at bedtime p.r.n., Carafate 1 g twice a day, Claritin 10 mg daily, Decadron 2 mg daily, albuterol and Atrovent nebulizer q. 6 hours, Famvir 500 mg q. 8 hours, insulin coverage, Intralipid 20% 21 mL per hour, lidocaine patch at affected area daily, Maalox Plus q. 4 hours p.r.n., Magic solution swish and swallow q. 2 hours p.r.n., morphine sulfate 50 mg twice a day, morphine immediate release 50 mg q. 6 hours p.r.n., getting TPN 83 mL per hour, Nicoderm patch daily, nystatin oral suspension twice a day, nasal saline 1 spray to each nostril q. 6 hours, Pepcid 40 mg daily, Protonix 40 mg daily, saliva substitute q. 2 hours p.r.n., Singulair 10 mg at bedtime., Tylenol p.r.n. basis, Xanax 0.5 mg twice a day, also Xanax 1 mg at bedtime, p.r.n., Zofran p.r.n. basis. LABORATORY DATA: She has hemoglobin 8.0, hematocrit 24.6, WBC 3.2, platelet is 43. Sodium 136, potassium 2.1, chloride 103, bicarbonate 2.5, BUN 8, creatinine 0.3, glucose 193, calcium 7.7, phosphorus 1.4, magnesium 2.3. AST 26, ALT 39, alkaline phosphatase is 94, albumin is 2.6. Microbiology: Blood culture, urine culture; there is no growth. IMPRESSION AND PLAN: Metastatic lung cancer involving bones, liver, spine; had a spine mass requiring radiation therapy, status post chemotherapy; pancytopenia - on Granix; electrolyte imbalance; also status post influenza infection. Pulmonary point of view, doing okay, keep head at 45 degrees, bronchodilator, incentive spirometer, on TPN, pain management, gastric prophylaxis, SCDs to lower extremity. Followup plans in the morning. Thank you and we will follow with you. Robert Eastman MD
[2017-06-17] MEDS: Sucralfate 1 gm/10 ml Oral Susp UD PO SCH ×2 (06:23→16:59)
[2017-06-17] MEDS: ACYCLOVIR 5% TOP SCH ×5 (06:24→22:33)
[2017-06-17 07:58] LABS: HEMOGLOBIN 8.2 g/dL (12.0-16.0); MEAN CELL VOLUME 88.2 fl (80.0-105.0); MEAN CORPUSCULAR HEMOGLOBIN 29.4 pg (25.0-35.0); MEAN CORPUSCULAR HGB CONC 33.3 g/dl (31.0-37.0); RBC 2.79 10^6/uL (3.5-6.1); WHITE BLOOD COUNT 7.7 10^3/ul (4.5-11.0)
[2017-06-17 07:59] LABS: BASO # 0.05 K/mm3 (0.0-2.0); BASO % 0.6 % (0.0-3.0); EOS % 0.1 % (1.5-5.0); GRAN # 6.06 (1.4-6.5); GRAN % 78.6 % (50.0-68.0); LYMPH # 1.1 (1.2-3.4); LYMPH % 13.6 % (22.0-35.0); MEAN PLATELET VOLUME 10.8 fl (7.0-11.0); MONO # 0.6 (0.1-0.6); MONO % 7.1 % (1.0-6.0); RED CELL DISTRIBUTION WIDTH 14.9 % (11.5-14.5)
[2017-06-17 08:09] LABS: ALBUMIN 2.7 g/dL (3.0-4.8); ALT/SGPT 38 U/L (7-56); AST/SGOT 28 U/L (14-36); BLOOD UREA NITROGEN 10 mg/dL (7-21); GFR AFRICAN-AMERICAN > 60; GFR NON-AFRICAN AMERICAN > 60; MAGNESIUM 2.4 mg/dL (1.7-2.2)
[2017-06-17] MEDS: Albuterol-Ipratrop 3 mg / 0.5 (3 ml) UD IH SCH ×4 (08:15→20:05)
[2017-06-17] MEDS ORDERED: [UNRECOGNIZED DRUG - NUTRITION] IV SCH ×2 (08:25→18:00)
[2017-06-17] MEDS: Insulin Reg-MEDIUM-Coverage SC SCH ×4 (08:38→22:34)
[2017-06-17] MEDS: Morphine 15 mg SR Tab PO SCH ×2 (09:01→22:31)
[2017-06-17] MEDS: Nystatin 100,000 Units/ml Oral Susp 5 ml UD PO SCH ×2 (09:01→17:33)
[2017-06-17] MEDS: DESVENLAFAXINE SUCCINATE 50 MG PO SCH ×2 (09:02→17:33)
--- NOTE | 2017-06-17 11:00 | CP.PCM.PN ---
Subjective - Date & Time of Evaluation Date of Evaluation: 06/17/17 Time of Evaluation: 09:30 - Subjective Subjective: No fevers, not in distress. Objective - Vital Signs/Intake and Output Vital Signs (last 24 hours): Temp Pulse Resp BP Pulse Ox 97.6 F 68 19 124/68 96 06/16/17 16:00 06/16/17 16:00 06/16/17 16:00 06/16/17 16:00 06/16/17 16:00 Intake and Output: 06/17/17 06/17/17 06:59 18:59 Intake Total 240 120 Balance 240 120 - Medications Medications: Current Medications Acetaminophen (Tylenol 325mg Tab) 650 mg PO Q4H PRN PRN Reason: pain 4-10 Last Admin: 06/15/17 16:25 Dose: 650 mg Acetylcysteine (Acetylcysteine 20%) 4 ml IH [id number] [facility] Last Admin: 06/17/17 08:14 Dose: Not Given Al Hydrox/Mg Hydrox/Simethicone (Maalox Plus 30 Ml) 30 ml PO Q4 PRN PRN Reason: Indigestion / Heartburn Last Admin: 06/13/17 13:18 Dose: 30 ml Albuterol/Ipratropium (Duoneb 3 Mg/0.5 Mg (3 Ml) Ud) 3 ml IH [id number] [facility] Last Admin: 06/17/17 08:15 Dose: 3 ml Alprazolam (Xanax) 0.5 mg PO BID [facility] Last Admin: 06/16/17 17:47 Dose: 0.5 mg Alprazolam (Xanax) 1 mg PO HS PRN; Protocol PRN Reason: Insomnia Al Hydrox/Mg Hydrox/Simethicone 30 ml/Diphenhydramine HCl 75 mg/Lidocaine 30 ml 0 ml PO Q2H PRN PRN Reason: Mouth/Throat Pain Last Admin: 06/10/17 14:38 Dose: 10 ml Dexamethasone (Decadron) 2 mg PO DAILY [facility] Last Admin: 06/16/17 10:07 Dose: 2 mg Famciclovir (Famvir) 500 mg PO Q8 [facility] Stop: 06/20/17 05:00 Last Admin: 06/17/17 06:23 Dose: 500 mg Famotidine (Pepcid) 40 mg PO HS [facility] Last Admin: 06/16/17 21:31 Dose: 40 mg Home Med (Home Med) 0 unit TOP 5XD [facility] Last Admin: 06/17/17 06:24 Dose: 1 unit Fat Emulsion Intravenous (Intralipid 20%) 250 mls @ 21 mls/hr IV DAILY@1800 [facility] Stop: 06/20/17 17:59 Last Admin: 06/16/17 17:58 Dose: 21 mls/hr Multivitamins/Vitamin C 10 ml/Chromium/Copper/Manganese/Zinc 1 ml/ Insulin Human Regular 15 units/ Amino Acids 2,011.15 mls @ 83 mls/hr IV .Q24H [facility] Stop: 06/20/17 17:59 Insulin Human Regular (Humulin R Med) 0 units SC ACHS [facility] PRN Reason: Protocol Last Admin: 06/17/17 08:38 Dose: 1 units Lidocaine (Lidoderm) 2 ea TD HS [facility] Last Admin: 06/16/17 21:32 Dose: 2 ea Loratadine (Claritin) 10 mg PO HS [facility] Last Admin: 06/16/17 21:31 Dose: 10 mg Montelukast Sodium (Singulair) 10 mg PO HS [facility] Last Admin: 06/16/17 21:31 Dose: 10 mg Morphine Sulfate (Morphine Extended Release Tab) 15 mg PO Q12 [facility] Last Admin: 06/16/17 21:31 Dose: 15 mg Morphine Sulfate (Morphine Immediate Release Tab) 15 mg PO Q6H PRN PRN Reason: Pain, severe (8-10) Nicotine (Nicoderm Cq) 1 patch TD DAILY [facility] Last Admin: 06/16/17 10:10 Dose: 1 patch Non-Formulary Medication (Desvenlafaxine Succinate) 50 mg PO BID [facility] Last Admin: 06/16/17 17:47 Dose: Not Given Nystatin (Nystatin Oral Susp) 5 ml PO BID [facility] Last Admin: 06/16/17 17:47 Dose: 5 ml Ondansetron HCl (Zofran Odt) 4 mg PO TID PRN PRN Reason: Nausea/Vomiting Last Admin: 06/14/17 11:12 Dose: 4 mg Ondansetron HCl (Zofran Inj) 8 mg IVP Q8H PRN PRN Reason: Nausea/Vomiting Last Admin: 06/14/17 22:18 Dose: 8 mg Pantoprazole Sodium (Protonix Inj) 40 mg IVP DAILY [facility] Last Admin: 06/16/17 10:05 Dose: 40 mg Saliva Substitute (Saliva Substitute) 1 ml PO Q2 PRN PRN Reason: Dry mouth Last Admin: 06/13/17 13:21 Dose: 1 ml Sodium Chloride ([place] Nasal [place]) 1 ml NS DAILY PRN PRN Reason: Nasal congestion Sucralfate (Carafate Oral Susp) 1 gm PO 0600,1600 [facility] Last Admin: 06/17/17 06:23 Dose: 1 gm Zolpidem Tartrate (Ambien) 5 mg PO HS [facility] PRN Reason: Protocol Last Admin: 06/16/17 22:37 Dose: Not Given - Labs Labs: 06/17/17 07:30 06/17/17 07:30 PT 15.2 SECONDS (9.4-12.5) H 06/15/17 06:25 INR 1.31 (0.93-1.08) H 06/15/17 06:25 APTT 21.0 Seconds (25.1-36.5) L 06/15/17 06:25 - Constitutional Appears: Chronically Ill - Head Exam Head Exam: NORMAL INSPECTION - Respiratory Exam Respiratory Exam: Decreased Breath Sounds - Cardiovascular Exam Cardiovascular Exam: +S1, +S2 - GI/Abdominal Exam GI & Abdominal Exam: Soft. absent: Tenderness Assessment and Plan - Assessment and Plan (Free Text) Plan: Assessment S/P sepsis due to HCAP S/P neutropenia history of Systemic viral illness with Influenza and acute bronchitis VRE in the urine, asymptomatic DM HTN depression lower back tumor obesity with BMI 30 Plan complete 7-8 day course of Vancomycin and Merrem will continue to monitor clinically off antibiotics since she is at risk for nosocomial infections
[2017-06-17] MEDS ORDERED: Sodium Phosphate 15 MMOLE in Sodium Chloride 0.9% 250 ML IVPB ONE (14:26)
--- NOTE | 2017-06-17 15:18 | PN ---
DATE: 06/16/2017 SUBJECTIVE: The patient is seen lying in bed. She is awake. She is alert. She reports that her mouth is a little bit better. She is able to eat a little bit better. PHYSICAL EXAMINATION: GENERAL: Obese elderly lady, lying in bed. VITAL SIGNS: Blood pressure 150/78, heart rate 75, respiratory rate 18, temperature 97.5. HEENT: Normocephalic, atraumatic, positive pallor, no icterus. NECK: Supple, no JVD. LUNGS: Bilateral equal air entry, crackles . CARDIAC: S1 and S2, regular rate and rhythm, no murmur, no rub. ABDOMEN: Obese, distended, soft, nontender, bowel sounds present. EXTREMITIES: No lower extremity edema. INTAKE AND OUTPUT: 869/600. LABORATORY DATA: WBC 3.2, hemoglobin 8, hematocrit 25, platelets 43. Sodium 136, potassium 3.1, chloride 103, CO2 of 25, BUN 8, creatinine 0.3, glucose 193, calcium 7.7, albumin 2.6, corrected calcium is 8.6, phosphorus 1.4, magnesium 2.3. MEDICATIONS: List reviewed. ASSESSMENT: 1. 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 2. Status post chemotherapy. 3. Pancytopenia. 4. Mucositis. 5. Hypokalemia. 6. Hypophosphatemia. 7. Hypomagnesemia. PLAN: 1. Continue hyperal. 2. Replace potassium with potassium chloride through riders. 3. Potassium phosphate 15 millimoles. 4. Push p.o. intake as tolerated. Dana Hawkins MD
--- NOTE | 2017-06-17 15:28 | CP.PCM.PN ---
Subjective - Date & Time of Evaluation Date of Evaluation: 06/17/17 Time of Evaluation: 07:20 - Subjective Subjective: Lex Andino D.O. PGY-2, Internal Medicine Resident, Hem/Onc, Progress Note 72 year old female with a PMH of stage IV small cell lung cancer recently started chemotherapy with carboplatin and etoposide who presented for some shortness of breath, congestion, and a period of altered sensorium. Patient was seen and examined. Energy still very low. Hasn't been able to eat much, states mouth sores still uncomfortable. No fevers or chills. No overnight events. Objective - Vital Signs/Intake and Output Vital Signs (last 24 hours): Temp Pulse Resp BP Pulse Ox 97.3 F L 65 21 150/80 95 06/17/17 06:00 06/17/17 06:00 06/17/17 06:00 06/17/17 06:00 06/17/17 06:00 Intake and Output: 06/17/17 06/17/17 06:59 18:59 Intake Total 240 120 Balance 240 120 - Medications Medications: Current Medications Acetaminophen (Tylenol 325mg Tab) 650 mg PO Q4H PRN PRN Reason: pain 4-10 Last Admin: 06/15/17 16:25 Dose: 650 mg Acetylcysteine (Acetylcysteine 20%) 4 ml IH [id number] [facility] Last Admin: 06/17/17 14:27 Dose: Not Given Al Hydrox/Mg Hydrox/Simethicone (Maalox Plus 30 Ml) 30 ml PO Q4 PRN PRN Reason: Indigestion / Heartburn Last Admin: 06/13/17 13:18 Dose: 30 ml Albuterol/Ipratropium (Duoneb 3 Mg/0.5 Mg (3 Ml) Ud) 3 ml IH [id number] [facility] Last Admin: 06/17/17 14:27 Dose: Not Given Alprazolam (Xanax) 0.5 mg PO BID [facility] Last Admin: 06/17/17 09:01 Dose: 0.5 mg Alprazolam (Xanax) 1 mg PO HS PRN; Protocol PRN Reason: Insomnia Al Hydrox/Mg Hydrox/Simethicone 30 ml/Diphenhydramine HCl 75 mg/Lidocaine 30 ml 0 ml PO Q2H PRN PRN Reason: Mouth/Throat Pain Last Admin: 06/10/17 14:38 Dose: 10 ml Dexamethasone (Decadron) 2 mg PO DAILY [facility] Last Admin: 06/17/17 09:01 Dose: 2 mg Famciclovir (Famvir) 500 mg PO Q8 [facility] Stop: 06/20/17 05:00 Last Admin: 06/17/17 13:57 Dose: 500 mg Famotidine (Pepcid) 40 mg PO HS [facility] Last Admin: 06/16/17 21:31 Dose: 40 mg Home Med (Home Med) 0 unit TOP 5XD [facility] Last Admin: 06/17/17 09:30 Dose: 1 unit Fat Emulsion Intravenous (Intralipid 20%) 250 mls @ 21 mls/hr IV DAILY@1800 [facility] Stop: 06/20/17 17:59 Last Admin: 06/16/17 17:58 Dose: 21 mls/hr Multivitamins/Vitamin C 10 ml/Chromium/Copper/Manganese/Zinc 1 ml/ Insulin Human Regular 15 units/ Amino Acids 2,011.15 mls @ 83 mls/hr IV .Q24H [facility] Stop: 06/20/17 17:59 Sodium Phosphate 15 mmole/ (Sodium Chloride) 255 mls @ 42.5 mls/hr IVPB ONCE ONE Stop: 06/17/17 20:25 Iron Sucrose 100 mg/ Sodium (Chloride) 105 mls @ 210 mls/hr IVPB DAILY [facility] Stop: 06/19/17 15:00 Insulin Human Regular (Humulin R Med) 0 units SC ACHS [facility] PRN Reason: Protocol Last Admin: 06/17/17 12:30 Dose: 1 units Lidocaine (Lidoderm) 2 ea TD HS [facility] Last Admin: 06/16/17 21:32 Dose: 2 ea Loratadine (Claritin) 10 mg PO HS [facility] Last Admin: 06/16/17 21:31 Dose: 10 mg Montelukast Sodium (Singulair) 10 mg PO HS [facility] Last Admin: 06/16/17 21:31 Dose: 10 mg Morphine Sulfate (Morphine Extended Release Tab) 15 mg PO Q12 [facility] Last Admin: 06/17/17 09:01 Dose: 15 mg Morphine Sulfate (Morphine Immediate Release Tab) 15 mg PO Q6H PRN PRN Reason: Pain, severe (8-10) Nicotine (Nicoderm Cq) 1 patch TD DAILY [facility] Last Admin: 06/17/17 09:01 Dose: 1 patch Non-Formulary Medication (Desvenlafaxine Succinate) 50 mg PO BID [facility] Last Admin: 06/17/17 09:02 Dose: Not Given Nystatin (Nystatin Oral Susp) 5 ml PO BID [facility] Last Admin: 06/17/17 09:01 Dose: 5 ml Ondansetron HCl (Zofran Odt) 4 mg PO TID PRN PRN Reason: Nausea/Vomiting Last Admin: 06/14/17 11:12 Dose: 4 mg Ondansetron HCl (Zofran Inj) 8 mg IVP Q8H PRN PRN Reason: Nausea/Vomiting Last Admin: 06/14/17 22:18 Dose: 8 mg Pantoprazole Sodium (Protonix Inj) 40 mg IVP DAILY [facility] Last Admin: 06/17/17 09:00 Dose: 40 mg Saliva Substitute (Saliva Substitute) 1 ml PO Q2 PRN PRN Reason: Dry mouth Last Admin: 06/13/17 13:21 Dose: 1 ml Sodium Chloride ([place] Nasal [place]) 1 ml NS DAILY PRN PRN Reason: Nasal congestion Sucralfate (Carafate Oral Susp) 1 gm PO 0600,1600 [facility] Last Admin: 06/17/17 06:23 Dose: 1 gm Zolpidem Tartrate (Ambien) 5 mg PO HS [facility] PRN Reason: Protocol Last Admin: 06/16/17 22:37 Dose: Not Given - Labs Labs: 06/17/17 07:30 06/17/17 07:30 PT 15.2 SECONDS (9.4-12.5) H 06/15/17 06:25 INR 1.31 (0.93-1.08) H 06/15/17 06:25 APTT 21.0 Seconds (25.1-36.5) L 06/15/17 06:25 - Constitutional Appears: Non-toxic, No Acute Distress, Chronically Ill - Head Exam Head Exam: ATRAUMATIC, NORMOCEPHALIC - Eye Exam Eye Exam: EOMI, PERRL - ENT Exam ENT Exam: Mucous Membranes Dry, small lesion on lower lip appears herpetic - Neck Exam Neck exam: Positive for: Normal Inspection - Respiratory Exam Respiratory Exam: Clear to Auscultation Bilateral, Rales, Rhonchi, Wheezes. absent: Accessory Muscle Use, Respiratory Distress - Cardiovascular Exam Cardiovascular Exam: RRR, +S1, +S2. absent: Gallop, Rubs - GI/Abdominal Exam GI & Abdominal Exam: Normal Bowel Sounds, Soft. absent: Distended, Tenderness - Extremities Exam Extremities exam: Positive for: pedal edema (trace). Negative for: calf tenderness - Back Exam Back exam: absent: CVA tenderness (L), CVA tenderness (R), paraspinal tenderness - Neurological Exam Neurological exam: Alert, Oriented x3 - Psychiatric Exam Psychiatric exam: Normal Affect, Normal Mood - Skin Skin Exam: Dry, Warm Assessment and Plan - Assessment and Plan (Free Text) Assessment: 72 year old female with a PMH of stage IV small cell lung cancer recently started chemotherapy with carboplatin and etoposide who presented for some shortness of breath, congestion, found to have multifocal pneumonia as well as neutropenic sepsis Plan: Multifocal pneumonia/HCAP Neutropenic sepsis Pancytopenia - improving Stage IV small cell lung cancer s/p XRT and chemotherapy w/ carboplatin and etoposide Herpetic mouth lesions Esophagitis/mucositis Poor oral intake Hypophosphatemia Hypokalemia On famciclovir IV/acyclovir cream Continue hyperal until can better tolerate PO K and Phos repleted as necessary Pulm, nephro and ID following, recs appreciated No longer on isolation, ANC [id number] Continue aranesp and venofer On protonix and famotidine as well as sucralfate On SCDs for DVT ppx Patient was seen and examined and case was discussed in detail with attending physician
--- NOTE | 2017-06-17 16:23 | PN ---
DATE: 06/17/2017 SUBJECTIVE: The patient is seen lying in bed. She is awake. She is alert. She is trying to eat some food. PHYSICAL EXAMINATION: GENERAL: Elderly lady, lying in bed. VITAL SIGNS: Blood pressure 150/80, heart rate 65, respiratory rate 21, temperature 97.3. HEENT: Normocephalic, atraumatic. NECK: Supple, no JVD. LUNGS: Bilateral equal air entry, no rales. CARDIAC: S1 and S2, regular rate and rhythm, no murmur, no rub. ABDOMEN: Obese, distended, soft, nontender, bowel sounds present. EXTREMITIES: No lower extremity edema. INTAKE AND OUTPUT: 650/400?? LABORATORY DATA: WBC 7.7, hemoglobin 8.2, hematocrit 25, platelet 61. Sodium 139, potassium 3.9, chloride 105, CO2 of 26, BUN 10, creatinine 0.3, glucose 192, calcium 8.0, phosphorus 1.9 magnesium 2.4, albumin 2.7, corrected calcium is 9.0. CURRENT MEDICATIONS: Zolpidem, Carafate, Claritin, Decadron, DuoNeb, Famvir, insulin, hyperal, Pepcid, Protonix. ASSESSMENT: 1. Pancytopenia, starting to recover. 2. 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 3. Severe hypokalemia, now resolving. 4. Severe hypophosphatemia. 5. Mucositis, starting to improve. 6. Buy-dpzgcku-fvjxzbibo diabetes mellitus.. 7. Hypertension. PLAN: 1. Continue hyperal. 2. Push p.o. intake. 3. Replace phosphorus. 4. Maintain euglycemia. 5. Antibiotics as per ID. Dana Hawkins MD
[2017-06-17] MEDS: Fat Emulsion 20% IV 250 ML IV SCH (17:29)
[2017-06-17 19:12] VITALS: RESP 20
--- NOTE | 2017-06-17 19:15 | CT ---
PROCEDURE: CT Chest without contrast HISTORY: f/u pneumonia COMPARISON: Comparison is made with 06/09/2017 TECHNIQUE: Contiguous axial images were obtained through the chest without intravenous contrast enhancement. Sagittal and coronal reconstructions were performed. Radiation dose (DLP): 678.89 mGy-cm. This CT exam was performed using one or more of the following dose reduction techniques: Automated exposure control, adjustment of the mA and/or kV according to patient size, and/or use of iterative reconstruction technique. FINDINGS: LUNGS: Interval significant improvement in the lungs since the previous exam. Interval resolving of patchy opacities and small infiltrates at the lower lobes since the previous study. There is persistent airspace consolidation at the medial aspect of the right lung upper lobe and central portion of the right middle and lower lobe may represent a pneumonia or neoplasm. Airspace consolidation are also noted at the lung bases could be due to atelectasis. The differential diagnosis for the airspace consolidation in the lungs well also includes sarcoidosis and other chronic pneumonitis. MEDIASTINUM: Unremarkable thoracic aorta. No aneurysm. Normal sized heart. Main pulmonary artery unremarkable. No vascular congestion. Large lymphadenopathy are noted at the right mediastinal and right hilar region. Mild lymphadenopathy are also noted at the upper mediastinum and prevascular region. PLEURA: There is a small to moderate right and trace left pleural effusions. BONES: No fracture. No destructive lesion. UPPER ABDOMEN: Multiple lesions in the liver are again noticed likely represent liver metastasis. OTHER FINDINGS: None. IMPRESSION: Interval improvement in the lungs since the previous exam. Persistent airspace consolidation at the medial aspect of the right lung upper lobe may represent neoplasm. Small to moderate right pleural effusion and trace left pleural effusion. Large right mediastinum lymphadenopathy and mild lymphadenopathy at the AP window and prevascular region. Liver metastasis.
[2017-06-17] MEDS: Lidocaine 5% Patch TD SCH (22:34)
--- NOTE | 2017-06-17 23:06 | PN ---
DATE: 06/17/2017 PULMONARY PROGRESS NOTE REFERRING PHYSICIAN: Dr. Puente. SUBJECTIVE: She is lying in the bed, head at 45 degrees. Feels a little better. Cough and shortness of breath is better. Oral ulcer pain is also better. Still has some odynophagia. No nausea. No vomiting. No diarrhea. No leg pain, no leg swelling. OBJECTIVE: GENERAL: In no acute distress. VITAL SIGNS: Temperature is 98, heart rate is 65, respiratory rate is 20, blood pressure 150/80, pulse ox 95% on 3 liters nasal cannula. HEENT: Moist mucous membrane. Has some oral ulcers, but slowly improving. NECK: Supple. No JVD. LUNGS: Have a fair airflow, with rhonchi. HEART: S1, S2. ABDOMEN: Soft, nontender, no organomegaly. EXTREMITIES: There is no edema. NEUROLOGIC: Awake, alert. Follows simple command. MEDICATIONS: She is on Mucomyst q. 6 hours, Ambien 5 mg at bedtime p.r.n., Carafate 1 g twice a day, Claritin 10 mg daily, Decadron 2 mg daily. She is on DuoNeb q. 6 hour round the clock, Famvir 500 mg q. 8 hour, also on IV Intralipid, on IV iron sucrose daily, Lidoderm patch to the affected area, MiraLax p.r.n. basis. She is getting Magic mouthwash swish and swallow, also getting morphine 15 mg which is extended release q. 12 hour. There is morphine immediate release 15 mg q. 6 hour p.r.n. Getting TPN 83 mL per hour, Nicoderm patch daily, nystatin oral daily, also Pepcid 40 mg at bedtime, Protonix 40 mg daily, saliva substitute q. 2 hour p.r.n., Singulair 10 mg daily at bedtime , sodium phosphate 42 mL per hour, also on Xanax 0.5 mg twice a day and Xanax 1 mg at bedtime p.r.n., Zofran p.r.n. LABORATORY DATA: Shows hemoglobin 8.2, hematocrit 24.6, WBC 7.7, platelet count is 61. Sodium 139, potassium 3.9, chloride 105, bicarbonate 26, BUN 10, creatinine 0.3, glucose 192. Calcium is 8.05, phosphorous is 1.9, magnesium 2.4. AST 28, ALT 38, alk phos is 109. Albumin is 2.7. Microbiology; blood culture, urine culture, there is no growth. IMPRESSION AND PLAN: Metastatic lung cancer involving bones, liver and spine; been on radiation therapy for spine tumor, status post chemotherapy, has a pancytopenia on Granix, oropharyngeal dysphagia, has a TPN, also on p.o. diet. Continue bronchodilator. Keep head at 45 degrees. Still on Decadron. Replace electrolytes. Gastric prophylaxis. Sequential compression device to lower extremities. Out of bed in to chair. [facility] and therapy. Thank you and we will follow with you. Robert Eastman MD
[2017-06-18] MEDS: Acetylcysteine 20% Inhal Soln (4ml) IH SCH ×3 (03:01→13:46)
[2017-06-18] MEDS: Albuterol-Ipratrop 3 mg / 0.5 (3 ml) UD IH SCH ×3 (03:01→13:47)
[2017-06-18 07:22] LABS: BASO # 0.05 K/mm3 (0.0-2.0); BASO % 0.8 % (0.0-3.0); GRAN # 4.77 (1.4-6.5); GRAN % 77.9 % (50.0-68.0); HEMOGLOBIN 8.1 g/dL (12.0-16.0); LYMPH # 0.9 (1.2-3.4); LYMPH % 14.8 % (22.0-35.0); MEAN CELL VOLUME 88.7 fl (80.0-105.0); MEAN CORPUSCULAR HEMOGLOBIN 28.6 pg (25.0-35.0); MEAN CORPUSCULAR HGB CONC 32.3 g/dl (31.0-37.0); MEAN PLATELET VOLUME 12.3 fl (7.0-11.0); MONO # 0.4 (0.1-0.6); MONO % 6.5 % (1.0-6.0); RBC 2.83 10^6/uL (3.5-6.1); RED CELL DISTRIBUTION WIDTH 15.2 % (11.5-14.5); WHITE BLOOD COUNT 6.1 10^3/ul (4.5-11.0)
[2017-06-18] MEDS: Insulin Reg-MEDIUM-Coverage SC SCH ×2 (07:44→11:45)
[2017-06-18 07:53] VITALS: BP 157/82; PULSE 69; TEMP 97.5; O2SAT 96
[2017-06-18 08:20] LABS: ALBUMIN 2.8 g/dL (3.0-4.8); ALT/SGPT 35 U/L (7-56); AST/SGOT 33 U/L (14-36); BLOOD UREA NITROGEN 12 mg/dL (7-21); GFR AFRICAN-AMERICAN > 60; GFR NON-AFRICAN AMERICAN > 60
[2017-06-18] MEDS: ACYCLOVIR 5% TOP SCH (10:38)
[2017-06-18] MEDS: Morphine 15 mg SR Tab PO SCH (10:39)
[2017-06-18] MEDS: DESVENLAFAXINE SUCCINATE 50 MG PO SCH (11:38)
[2017-06-18] MEDS: Nystatin 100,000 Units/ml Oral Susp 5 ml UD PO SCH (11:40)
--- NOTE | 2017-06-18 11:54 | CP.PCM.PN ---
Subjective - Date & Time of Evaluation Date of Evaluation: 06/18/17 Time of Evaluation: 10:30 - Subjective Subjective: No fevers, not in distress. Objective - Vital Signs/Intake and Output Vital Signs (last 24 hours): Temp Pulse Resp BP Pulse Ox 97.5 F L 69 20 157/82 H 96 06/18/17 07:52 06/18/17 07:52 06/18/17 07:52 06/18/17 07:52 06/18/17 07:52 Intake and Output: 06/18/17 06/18/17 06:59 18:59 Intake Total 2230 Output Total 2275 Balance -45 - Medications Medications: Current Medications Acetaminophen (Tylenol 325mg Tab) 650 mg PO Q4H PRN PRN Reason: pain 4-10 Last Admin: 06/15/17 16:25 Dose: 650 mg Acetylcysteine (Acetylcysteine 20%) 4 ml IH [id number] [facility] Last Admin: 06/18/17 07:38 Dose: Not Given Al Hydrox/Mg Hydrox/Simethicone (Maalox Plus 30 Ml) 30 ml PO Q4 PRN PRN Reason: Indigestion / Heartburn Last Admin: 06/13/17 13:18 Dose: 30 ml Albuterol/Ipratropium (Duoneb 3 Mg/0.5 Mg (3 Ml) Ud) 3 ml IH [id number] [facility] Last Admin: 06/18/17 07:38 Dose: 3 ml Alprazolam (Xanax) 0.5 mg PO BID [facility] Last Admin: 06/17/17 17:33 Dose: 0.5 mg Alprazolam (Xanax) 1 mg PO HS PRN; Protocol PRN Reason: Insomnia Al Hydrox/Mg Hydrox/Simethicone 30 ml/Diphenhydramine HCl 75 mg/Lidocaine 30 ml 0 ml PO Q2H PRN PRN Reason: Mouth/Throat Pain Last Admin: 06/10/17 14:38 Dose: 10 ml Dexamethasone (Decadron) 2 mg PO DAILY [facility] Last Admin: 06/17/17 09:01 Dose: 2 mg Famciclovir (Famvir) 500 mg PO Q8 [facility] Stop: 06/20/17 05:00 Last Admin: 06/17/17 22:31 Dose: 500 mg Famotidine (Pepcid) 40 mg PO HS [facility] Last Admin: 06/17/17 22:31 Dose: 40 mg Home Med (Home Med) 0 unit TOP 5XD [facility] Last Admin: 06/17/17 22:33 Dose: 1 unit Fat Emulsion Intravenous (Intralipid 20%) 250 mls @ 21 mls/hr IV DAILY@1800 [facility] Stop: 06/20/17 17:59 Last Admin: 06/17/17 17:29 Dose: 21 mls/hr Multivitamins/Vitamin C 10 ml/Chromium/Copper/Manganese/Zinc 1 ml/ Insulin Human Regular 15 units/ Amino Acids 2,011.15 mls @ 83 mls/hr IV .Q24H [facility] Stop: 06/20/17 17:59 Last Admin: 06/17/17 17:26 Dose: 83 mls/hr Iron Sucrose 100 mg/ Sodium (Chloride) 105 mls @ 210 mls/hr IVPB DAILY [facility] Stop: 06/19/17 15:00 Last Admin: 06/17/17 16:59 Dose: 210 mls/hr Insulin Human Regular (Humulin R Med) 0 units SC ACHS [facility] PRN Reason: Protocol Last Admin: 06/17/17 22:34 Dose: Not Given Lidocaine (Lidoderm) 2 ea TD [facility] Last Admin: 06/17/17 22:34 Dose: 2 ea Loratadine (Claritin) 10 mg PO [facility] Last Admin: 06/17/17 22:31 Dose: Not Given Montelukast Sodium (Singulair) 10 mg PO HS [facility] Last Admin: 06/17/17 22:31 Dose: 10 mg Morphine Sulfate (Morphine Extended Release Tab) 15 mg PO Q12 [facility] Last Admin: 06/17/17 22:31 Dose: 15 mg Morphine Sulfate (Morphine Immediate Release Tab) 15 mg PO Q6H PRN PRN Reason: Pain, severe (8-10) Nicotine (Nicoderm Cq) 1 patch TD DAILY [facility] Last Admin: 06/17/17 09:01 Dose: 1 patch Non-Formulary Medication (Desvenlafaxine Succinate) 50 mg PO BID [facility] Last Admin: 06/17/17 17:33 Dose: Not Given Nystatin (Nystatin Oral Susp) 5 ml PO BID [facility] Last Admin: 06/17/17 17:33 Dose: 5 ml Ondansetron HCl (Zofran Odt) 4 mg PO TID PRN PRN Reason: Nausea/Vomiting Last Admin: 06/14/17 11:12 Dose: 4 mg Ondansetron HCl (Zofran Inj) 8 mg IVP Q8H PRN PRN Reason: Nausea/Vomiting Last Admin: 06/14/17 22:18 Dose: 8 mg Pantoprazole Sodium (Protonix Inj) 40 mg IVP DAILY [facility] Last Admin: 06/17/17 09:00 Dose: 40 mg Saliva Substitute (Saliva Substitute) 1 ml PO Q2 PRN PRN Reason: Dry mouth Last Admin: 06/13/17 13:21 Dose: 1 ml Sodium Chloride ([place] Nasal [place]) 1 ml NS DAILY PRN PRN Reason: Nasal congestion Sucralfate (Carafate Oral Susp) 1 gm PO 0600,1600 [facility] Last Admin: 06/17/17 16:59 Dose: 1 gm Zolpidem Tartrate (Ambien) 5 mg PO HS [facility] PRN Reason: Protocol Last Admin: 06/17/17 22:31 Dose: Not Given - Labs Labs: 06/18/17 07:00 06/18/17 07:00 PT 15.2 SECONDS (9.4-12.5) H 06/15/17 06:25 INR 1.31 (0.93-1.08) H 06/15/17 06:25 APTT 21.0 Seconds (25.1-36.5) L 06/15/17 06:25 - Constitutional Appears: Chronically Ill - Head Exam Head Exam: NORMAL INSPECTION - ENT Exam ENT Exam: Mucous Membranes Moist - Neck Exam Neck Exam: absent: Meningismus - Respiratory Exam Respiratory Exam: Decreased Breath Sounds - Cardiovascular Exam Cardiovascular Exam: +S1, +S2 - GI/Abdominal Exam GI & Abdominal Exam: Soft. absent: Tenderness Assessment and Plan - Assessment and Plan (Free Text) Plan: Assessment S/P sepsis due to HCAP S/P neutropenia history of Systemic viral illness with Influenza and acute bronchitis VRE in the urine, asymptomatic DM HTN depression lower back tumor obesity with BMI 30 Plan completed 7-8 day course of Vancomycin and Merrem will continue to monitor clinically off antibiotics since she is at risk for hospital-acquired infections
[2017-06-18] MEDS ORDERED: [UNRECOGNIZED DRUG - NUTRITION] IV SCH (14:46)
--- NOTE | 2017-06-18 15:09 | PN ---
DATE: SUBJECTIVE: The patient is currently seen lying comfortable in bed. Her white blood cell count is improved. She is no longer in isolation. The patient does continue on hyperalimentation. She will likely be transferred to the TCU later today. She does not want to go to the TCU. MEDICATIONS: Medication list reviewed. The patient is on aluminum hydroxide/magnesium hydroxide/simethicone/diphenhydramine/lidocaine solution, acetylcysteine, Ambien, Carafate, Claritin, Decadron, desvenlafaxine, DuoNeb, Famvir, acyclovir ointment, insulin, hyperalimentation, IV iron, Lidoderm, morphine, NicoDerm CQ, Nystatin, [place] nasal spray, Pepcid, Protonix, saliva substitute, Singulair, Tylenol p.r.n., Xanax p.r.n. and Zofran p.r.n. PHYSICAL EXAMINATION INTAKE/OUTPUT: Intake is 2350, output is 2275. VITAL SIGNS: Blood pressure 157/82, temperature 97.5, respiratory rate 20 with a pulse of 69. HEENT: Shows her to be normocephalic, atraumatic. Conjunctivae are pale. Sclerae are nonicteric. NECK: Supple. No neck vein distention. CHEST: Clear to auscultation and percussion with scattered rhonchi. No rales or wheezing. She has a port in her right chest wall. CARDIOVASCULAR: Shows a regular rate and rhythm without murmurs, rubs or gallops. ABDOMEN: Soft. Bowel sounds normal. No rebound, guarding or masses. EXTREMITIES: Show no cyanosis, clubbing or edema. LABORATORY DATA AND IMAGING: CBC: White blood cell count today is 6.1, stable. Hemoglobin is 8.1, platelet count is 79,000. Chemistry showed normal electrolytes. BUN 12 with a creatinine of 0.3. Glucose is 174 with a calcium of 8.0. Her last phosphorus level was 1.9. Her last magnesium level was 2.4. Bilirubin normal. Liver enzymes normal. Albumin is 2.8. Microbiology: All cultures are negative. ASSESSMENT: 1. Inadequate nutrition in the setting of oral ulcerations of her posterior pharynx secondary to chemotherapy. The patient has done relatively well with hyperalimentation and she is starting to eat. We will continue to adjust the hyperalimentation in light of her hypophosphatemia. Her sodium level has normalized with isotonic hyperalimentation. She has had a history of hyponatremia in the past thought to be secondary to the syndrome of inappropriate ADH hormone. 2. 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 3. History of non-insulin dependant diabetes mellitus. The patient is on insulin and she is receiving insulin in the hyperalimentation with excellent sugar control. 4. History of anemia. Pancytopenia has resolved as a white blood cell count is come to normal, platelet count still remains low. 5. History of hypertension. Slight elevation of systolic blood pressure readings. The patient will continue to have her blood pressure monitored on a daily basis. If necessary, the patient may be started on low-dose calcium channel dameon therapy. PLAN: 1. The patient is reluctant for transfer to the TCU. I will leave this decision up to her attending, Dr. Puente and Dr. Reis. 2. Continue hyperalimentation orders will be written today. 3. We will continue high phosphorus in the hyperalimentation and decrease magnesium. 4. Status post antibiotic therapy as her cultures were all negative. 5. We will continue to monitor the patient and follow labs on a regular basis in light of her need for hyperalimentation. Delta Riley MD
--- NOTE | 2017-06-19 01:07 | PN ---
DATE: 06/18/2017 REFERRING PHYSICIAN: Dr. Puente. SUBJECTIVE: She is lying in the bed, head at 45 degrees. Night was unremarkable. No headache, no rhinitis. Cough is better. No nausea, no vomiting. No diarrhea. No leg pain or leg swelling. Still has an issue with swallowing food, has pain. OBJECTIVE: GENERAL: In no acute distress. VITAL SIGNS: Temperature is 98, heart rate 69, respiratory rate is 20, blood pressure 157/82, pulse ox 96% room air. HEENT: Moist mucous membrane, has some ulcers. NECK: Supple. No JVD. LUNGS: Has a fair airflow with rhonchi. HEART: S1, S2. ABDOMEN: Soft, nontender. No organomegaly. EXTREMITIES: No edema. NEUROLOGIC: Awake, alert, follows simple command. MEDICATIONS: Reviewed and noted no new changes in medication reported since yesterday. LABORATORY DATA: Shows hemoglobin 8.1, hematocrit 25.1, WBC 6.1, platelet count is 79. Sodium 139, potassium 3.9, chloride 106, bicarbonate 25, BUN 12, creatinine 0.3, glucose 174, calcium is 8.0, AST 33, ALT 35, alk phos is 117. Albumin is 2.8. Microbiology; blood cultures, urine cultures have been unremarkable. Rectal swab for VRE is detected. She had a CAT scan of the chest done yesterday, which shows interval improvement in the lung since the previous examination, persistent air-space consolidation at the medial aspects of the right lung lobe - may represent neoplasm, small to moderate right pleural effusion and trace left pleural effusion, large right mediastinal lymphadenopathy and mild lymphadenopathy at the AP window and perivascular region. Also there is a liver metastatic disease. IMPRESSION AND PLAN: Metastatic lung cancer involving the bones and liver, status post radiation therapy to spine, has been on chemotherapy; pancytopenia, slowly improving on Granix; oropharyngeal dysphagia, on total parenteral nutrition as well on oral nystatin and Magic solution. From a pulmonary point of view, she is doing okay. Keep head at 45 degrees. Supplement oxygen, bronchodilator, pain management. Also on steroids. Gastric prophylaxis. SCDs to lower extremities. Out of bed to chair. Will benefit from therapy. Thank you and we will follow with you. Robert Eastman MD [facility] # [id number]
--- NOTE | 2017-06-19 06:36 | DS ---
DISPOSITION: From the medical floor, she will be transferred to the TCU for reconditioning. For Dr. Puente. SUBJECTIVE: Patient is a 72-year-old female, seen lying awake in bed with continued modest improvement from her treatment for pneumonia superimposed on metastatic lung cancer involving bones, liver and spine, for which she received radiation with pancytopenic indices, now improved, on Granix, transfusion of platelets as indicated along with transfusion of IV iron. At this point, the patient is improved for transfer to TCU for continued monitoring, as patient continues to have hyperalimentation per Dr. Hawkins and Dr. Riley, renal consultants, and shows modest improvement on a daily basis. OBJECTIVE: PHYSICAL EXAMINATION: VITAL SIGNS: Temperature 97.5, pulse 69, respirations 20, blood pressure 157/82, pulse ox 96% on room air. HEENT: Unremarkable. NECK: Supple. HEART: Regular rate, occasional ectopic beats. LUNGS: Rare rhonchi. ABDOMEN: Obese, soft, nontender. EXTREMITIES: No edema. SKIN: Warm and dry. NEUROLOGIC: Awake, alert, with decreased strength to lower extremities and to water superintendent. MEDICATIONS: At this point include acetylcysteine, Ambien, Carafate, loratadine, hyperalimentation, dexamethasone, desvenlafaxine succinate, DuoNeb, Famvir, insulin coverage, fat emulsion, Venofer, Lidoderm, Maalox, morphine extended release and immediate release, nicotine patch, Zofran, Xanax, Tylenol, Singulair, saliva substitute, Protonix, Pepcid, [place] nasal spray. LABORATORY DATA: The patient's labs were done, white blood cell count of 6.1, improved from 0.3 four days prior. She has a hemoglobin of 8.1 down from 9.5 earlier in her hospital stay with a hematocrit of 25.1 with a platelet count of 79,000, it was down to 27,000 with 1 unit of free single donor platelet transfused since her low value on 06/14. Her chem metabolic panel was within normal range except for non-fasting glucose of 195, calcium of 8.0. Her INR is 1.3 three days prior with fibrin split products negative at that point with fibrinogen of 511. Patient did have a CT scan of the chest done yesterday which delayed her transfer to TCU until this morning with the CT scan showing interval improvement in the lungs persistent air-space consolidation at the medical aspect of the right lung upper lobe, may represent neoplasm. Small to moderate right pleural effusion, trace left pleural effusion, large right mediastinal lymphadenopathy, mild lymphadenopathy at the AP window in prevascular region and liver metastasis. Copy of this was given to the patient. 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 PLAN: Plan for this patient after conversation with Dr. Puente is to transfer to TCU for further care. We will continue present medical regimen as listed above with the prognosis for this patient guarded. We will monitor clinically with labs. This is a complex patient with a comprehensive medically necessary and appropriate visit carried out in excess of 1 hour's time in [id number] time and also discharge planning, for the patient will be transferred with the patient's questions answered to her satisfaction, with consultants spoken to regarding her future plan. Prognosis for this patient is guarded. Yosef Reis MD
== END 2017-06-18 14:46 | DRG 871 ==
LOC: ED 18:02 → ERH 20:43 → 3RNO 06-08 12:53 → OBSVTOIN 06-09 09:01
PROVIDERS: ADMIT Family Medicine; ATTEND Family Medicine
PROC: 3E0F7GC Introduction of Other Therapeutic Substance into Respiratory Tract, Via Natural or Artificial Opening (ICD-10-PCS; 2017-06-08)
PROC: 3E0336Z Introduction of Nutritional Substance into Peripheral Vein, Percutaneous Approach (ICD-10-PCS; principal; 2017-06-15)
DX: A41.9 Sepsis, unspecified organism (principal); J18.9 Pneumonia, unspecified organism; D61.818 Other pancytopenia; C34.90 Malignant neoplasm of unspecified part of unspecified bronchus or lung; C78.7 Secondary malignant neoplasm of liver and intrahepatic bile duct; C79.51 Secondary malignant neoplasm of bone; I11.0 Hypertensive heart disease with heart failure; E22.2 Syndrome of inappropriate secretion of antidiuretic hormone; E83.39 Other disorders of phosphorus metabolism; I50.9 Heart failure, unspecified; J44.0 Chronic obstructive pulmonary disease with (acute) lower respiratory infection; R13.12 Dysphagia, oropharyngeal phase; E11.9 Type 2 diabetes mellitus without complications; F41.9 Anxiety disorder, unspecified; D70.3 Neutropenia due to infection; B00.1 Herpesviral vesicular dermatitis; E87.6 Hypokalemia; Z16.21 Resistance to vancomycin; K12.31 Oral mucositis (ulcerative) due to antineoplastic therapy; E83.42 Hypomagnesemia; K21.9 Gastro-esophageal reflux disease without esophagitis; T45.1X5A Adverse effect of antineoplastic and immunosuppressive drugs, initial encounter; Y95 Nosocomial condition; F32.9 Major depressive disorder, single episode, unspecified; E66.9 Obesity, unspecified; Z68.30 Body mass index [BMI] 30.0-30.9, adult; Z92.3 Personal history of irradiation; Z87.891 Personal history of nicotine dependence

== ENCOUNTER 2017-06-18 14:18 | Inpatient (IN) | payer OTHER ==
[2017-06-18 14:53] VITALS: BMI 31.4
[2017-06-18] MEDS ORDERED: Saliva Substitute 44.3 ML PO PRN (15:29)
[2017-06-18] MEDS ORDERED: Iron Sucrose 100 mg/5 ml Inj IVP ONE (15:42)
[2017-06-18] MEDS ORDERED: Alum-Mag Hydrox-Simethicone Susp (30 mL) PO PRN (15:50)
[2017-06-18] MEDS ORDERED: Aluminum Hydroxide/Magnesium 30 ML, DiphenhydrAMINE 75 MG, Lidocaine 2% Viscous 30 ML PO PRN (15:53)
[2017-06-18] MEDS ORDERED: Influenza Vaccine 60 mcg/0.5 mL SYR (4YR UP) IM ONE (16:42)
[2017-06-18] MEDS: Sucralfate 1 gm/10 ml Oral Susp UD PO SCH (17:00)
[2017-06-18] MEDS: Insulin Reg-MEDIUM-Coverage SC SCH ×2 (17:30→22:50)
[2017-06-18] MEDS: Fat Emulsion 20% IV 250 ML IV SCH (17:56)
[2017-06-18] MEDS: [UNRECOGNIZED DRUG - NUTRITION] IV SCH (17:56)
[2017-06-18] MEDS ORDERED: Home Med 1 UNIT TOP SCH (18:00)
[2017-06-18] MEDS: Morphine 15 mg Immediate Release Tab PO PRN (18:00)
[2017-06-18] MEDS: Acetylcysteine 20% Inhal Soln (4ml) IH SCH (20:04)
[2017-06-18] MEDS: Morphine 15 mg SR Tab PO SCH (21:41)
[2017-06-18] MEDS: Lidocaine 5% Patch TD SCH (21:42)
[2017-06-19] MEDS: Acetylcysteine 20% Inhal Soln (4ml) IH SCH ×5 (01:43→20:10)
[2017-06-19] MEDS: Albuterol-Ipratrop 3 mg / 0.5 (3 ml) UD IH SCH ×4 (01:44→18:52)
[2017-06-19] MEDS: Sucralfate 1 gm/10 ml Oral Susp UD PO SCH ×2 (05:41→17:22)
[2017-06-19 06:31] LABS: BASO # 0.05 K/mm3 (0.0-2.0); BASO % 0.9 % (0.0-3.0); GRAN # 4.23 (1.4-6.5); GRAN % 76.4 % (50.0-68.0); HEMOGLOBIN 8.5 g/dL (12.0-16.0); LYMPH # 0.8 (1.2-3.4); LYMPH % 14.6 % (22.0-35.0); MEAN CELL VOLUME 88.4 fl (80.0-105.0); MEAN CORPUSCULAR HEMOGLOBIN 28.9 pg (25.0-35.0); MEAN CORPUSCULAR HGB CONC 32.7 g/dl (31.0-37.0); MEAN PLATELET VOLUME 11.8 fl (7.0-11.0); MONO # 0.5 (0.1-0.6); MONO % 8.1 % (1.0-6.0); RBC 2.94 10^6/uL (3.5-6.1); WHITE BLOOD COUNT 5.5 10^3/ul (4.5-11.0)
[2017-06-19 06:57] LABS: ALT/SGPT 48 U/L (7-56); AST/SGOT 46 U/L (14-36); BLOOD UREA NITROGEN 13 mg/dL (7-21); CALCIUM 8.2 mg/dL (8.4-10.5); GFR AFRICAN-AMERICAN > 60; GFR NON-AFRICAN AMERICAN > 60
[2017-06-19] MEDS: Insulin Reg-MEDIUM-Coverage SC SCH ×4 (07:54→22:46)
[2017-06-19] MEDS: Morphine 15 mg SR Tab PO SCH ×2 (10:37→22:13)
--- NOTE | 2017-06-19 12:38 | CP.PCM.CON ---
History of Present Illness - History of Present Illness History of Present Illness: 72 year old female with PMH of DM, HTN, and depression, lower back tumor, obesity with BMI 31 was admitted for thoracic tumor and is now found with stage 4 lung cancer. She also developed and neutropenia and was treated for these. She completed her course of antibiotics and is not neutropenic anymore. She is now transferred to [facility] for continued medical therapy and physical rehab. Infectious diseases consult is requested to see if the patient still needs antibiotics. Currently the patient is eating her lunch without issues. She denies fever or chills, no nausea or vomiting, no headache or dizziness, no chest pain, no SOB, no cough or rhinorrhea, no sore throat, no dysphagia, no abdominal pain, no diarrhea, no dysuria. Review of Systems - Review of Systems All systems: reviewed and no additional remarkable complaints except (as per HPI ) Past Patient History - Infectious Disease Hx of Infectious Diseases: None - Past Social History Smoking Status: Former Smoker - CARDIAC Hx Pacemaker: No - PULMONARY Hx Respiratory Disorders: No - NEUROLOGICAL Hx Neurological Disorder: No - HEENT Hx HEENT Problems: No - RENAL Hx Chronic Kidney Disease: No - ENDOCRINE/METABOLIC Hx Diabetes Mellitus Type 2: Yes - HEMATOLOGICAL/ONCOLOGICAL Hx Blood Transfusions: No - INTEGUMENTARY Hx Dermatological Problems: No - MUSCULOSKELETAL/RHEUMATOLOGICAL Hx Falls: Yes (recent frequent left thigh bruise) - GASTROINTESTINAL Hx Gastrointestinal Disorders: (esophageal ulcers) - GENITOURINARY/GYNECOLOGICAL Hx Genitourinary Disorders: (external catheter) Hx Reproductive Disorders: No - PSYCHIATRIC Hx Psychophysiologic Disorder: Yes Hx Anxiety: Yes Hx Depression: Yes Hx Substance Use: No - SURGICAL HISTORY Hx Orthopedic Surgery: Yes (R KNEE) - ANESTHESIA Hx Anesthesia Reactions: No Hx Malignant Hyperthermia: No Meds Allergies/Adverse Reactions: Allergies Allergy/AdvReac Type Severity Reaction Status Date / Time Sulfa (Sulfonamide Allergy ANAPHYLAXIS Verified 06/18/17 14:53 Antibiotics) - Medications Medications: Current Medications Acetaminophen (Tylenol 325mg Tab) 650 mg PO Q4H PRN; Protocol PRN Reason: pain 4-10 Acetylcysteine (Acetylcysteine 20%) 4 ml IH [id number] KIMMY PRN Reason: Protocol Last Admin: 06/19/17 07:17 Dose: Not Given Al Hydrox/Mg Hydrox/Simethicone (Maalox Plus 30 Ml) 30 ml PO Q4 PRN; Protocol PRN Reason: Indigestion / Heartburn Albuterol/Ipratropium (Duoneb 3 Mg/0.5 Mg (3 Ml) Ud) 3 ml IH Q6 KIMMY PRN Reason: Protocol Last Admin: 06/19/17 07:17 Dose: 3 ml Alprazolam (Xanax) 1 mg PO HS KIMMY PRN Reason: Protocol Last Admin: 06/18/17 21:42 Dose: 1 mg Alprazolam (Xanax) 0.5 mg PO BID KIMMY Last Admin: 06/18/17 18:00 Dose: 0.5 mg Al Hydrox/Mg Hydrox/Simethicone 30 ml/Diphenhydramine HCl 75 mg/Lidocaine 30 ml 0 ml PO Q2H PRN; Protocol PRN Reason: Mouth/Throat Pain Dexamethasone (Decadron) 2 mg PO 0800 KIMMY PRN Reason: Protocol Famciclovir (Famvir) 500 mg PO Q8 KIMMY PRN Reason: Protocol Last Admin: 06/19/17 05:40 Dose: 500 mg Famotidine (Pepcid) 40 mg PO HS KIMMY PRN Reason: Protocol Last Admin: 06/18/17 21:45 Dose: 40 mg Home Med (Home Med) 1 unit TOP 5XD KIMMY PRN Reason: Protocol Iron Sucrose 100 mg/ Sodium (Chloride) 105 mls @ 210 mls/hr IVPB DAILY KIMMY PRN Reason: Protocol Multivitamins/Vitamin C 10 ml/Chromium/Copper/Manganese/Zinc 1 ml/ Insulin Human Regular 15 units/ Amino Acids 2,011.15 mls @ 83 mls/hr IV .Q24H KIMMY Stop: 06/21/17 17:01 Last Admin: 06/18/17 17:56 Dose: 83 mls/hr Fat Emulsion Intravenous (Intralipid 20%) 250 mls @ 21 mls/hr IV DAILY@1800 KIMMY Stop: 06/21/17 18:01 Last Admin: 06/18/17 17:56 Dose: 21 mls/hr Insulin Human Regular (Humulin R Med) 1 units SC ACHS KIMMY PRN Reason: Protocol Last Admin: 06/18/17 22:50 Dose: Not Given Lidocaine (Lidoderm) 2 ea TD HS KIMMY PRN Reason: Protocol Last Admin: 06/18/17 21:42 Dose: 2 ea Loratadine (Claritin) 10 mg PO HS KIMMY PRN Reason: Protocol Last Admin: 06/18/17 21:47 Dose: Not Given Montelukast Sodium (Singulair) 10 mg PO HS KIMMY PRN Reason: Protocol Last Admin: 06/18/17 21:45 Dose: 10 mg Morphine Sulfate (Morphine Extended Release Tab) 15 mg PO Q12 KIMMY PRN Reason: Protocol Last Admin: 06/18/17 21:41 Dose: 15 mg Morphine Sulfate (Morphine Immediate Release Tab) 15 mg PO Q6H PRN; Protocol PRN Reason: Pain, severe (8-10) Last Admin: 06/18/17 18:00 Dose: 15 mg Nicotine (Nicoderm Cq) 1 patch TD DAILY KIMMY PRN Reason: Protocol Non-Formulary Medication (Desvenlafaxine Succinate) 50 mg PO BID KIMMY Ondansetron HCl (Zofran Odt) 4 mg PO TID PRN; Protocol PRN Reason: Nausea/Vomiting Saliva Substitute (Saliva Substitute) 1 ml PO Q2 PRN; Protocol PRN Reason: Dry mouth Sodium Chloride ([place] Nasal [place]) 1 ml NS DAILY PRN PRN Reason: Nasal congestion Sucralfate (Carafate Oral Susp) 1 gm PO 0600,1600 KIMMY PRN Reason: Protocol Last Admin: 06/19/17 05:41 Dose: 1 gm Zolpidem Tartrate (Ambien) 5 mg PO HS PRN; Protocol PRN Reason: Insomnia Physical Exam - Constitutional Appears: Chronically Ill - Head Exam Head Exam: NORMAL INSPECTION - ENT Exam ENT Exam: Mucous Membranes Moist - Neck Exam Neck exam: Negative for: Meningismus - Respiratory Exam Respiratory Exam: Decreased Breath Sounds - Cardiovascular Exam Cardiovascular Exam: +S1, +S2 - GI/Abdominal Exam GI & Abdominal Exam: Soft. absent: Tenderness Results - Vital Signs Recent Vital Signs: Last Vital Signs Temp 97.3 F L 06/18/17 16:28 Pulse 68 06/18/17 20:15 Resp 20 06/18/17 22:37 BP 153/63 H 06/18/17 16:28 Pulse Ox - Labs Result Diagrams: 06/19/17 06:01 06/19/17 06:01 Labs: Laboratory Results - last 24 hr 06/18/17 06/19/17 06/19/17 21:53 05:55 06:01 WBC 5.5 RBC 2.94 L Hgb 8.5 L Hct 26.0 L MCV 88.4 MCH 28.9 MCHC 32.7 RDW 15.0 H Plt Count 93 L MPV 11.8 H Gran % 76.4 H Lymph % (Auto) 14.6 L [place] % (Auto) 8.1 H Eos % (Auto) 0.0 L Baso % (Auto) 0.9 Gran # 4.23 Lymph # (Auto) 0.8 L [place] # (Auto) 0.5 Eos # (Auto) 0.0 Baso # (Auto) 0.05 Sodium Potassium Chloride Carbon Dioxide Anion Gap BUN Creatinine Est GFR ( Amer) Est GFR (Non-Af Amer) POC Glucose (mg/dL) 186 H 190 H Random Glucose Calcium Total Bilirubin AST ALT Alkaline Phosphatase Total Protein Albumin Globulin Albumin/Globulin Ratio 06/19/17 06:01 WBC RBC Hgb Hct MCV MCH MCHC RDW Plt Count MPV Gran % Lymph % (Auto) [place] % (Auto) Eos % (Auto) Baso % (Auto) Gran # Lymph # (Auto) [place] # (Auto) Eos # (Auto) Baso # (Auto) Sodium 136 Potassium 4.1 Chloride 100 Carbon Dioxide 25 Anion Gap 15 BUN 13 Creatinine 0.4 L Est GFR ( Amer) > 60 Est GFR (Non-Af Amer) > 60 POC Glucose (mg/dL) Random Glucose 205 H Calcium 8.2 L Total Bilirubin 0.4 AST 46 H D ALT 48 Alkaline Phosphatase 137 H Total Protein 5.8 Albumin 3.0 Globulin 2.9 Albumin/Globulin Ratio 1.0 L Assessment & Plan - Assessment and Plan (Free Text) Plan: Assessment S/P sepsis due to HCAP S/P neutropenia history of Systemic viral illness with Influenza and acute bronchitis stage 4 lung cancer VRE in the urine, asymptomatic DM HTN depression lower back tumor obesity with BMI 30 Plan completed 7-8 day course of Vancomycin and Merrem will continue to monitor clinically off antibiotics since she is at risk for healthcare-associatedinfections
[2017-06-19] MEDS: [UNRECOGNIZED DRUG - NUTRITION] IV SCH (17:24)
[2017-06-19] MEDS: Fat Emulsion 20% IV 250 ML IV SCH (17:27)
--- NOTE | 2017-06-19 19:25 | PN ---
DATE: SUBJECTIVE: Patient is currently seen eating lunch and she continues on hyperalimentation. She states she is able to swallow a bit better, but she is not back to herself yet. She is eating slowly. MEDICATIONS: List reviewed. Patient is currently on aluminum hydroxide, magnesium hydroxide, simethicone, diphenhydramine and lidocaine solution, acetylcysteine, Ambien, Carafate, Claritin, Decadron, desvenlafaxine, DuoNeb, Famvir, acyclovir ointment, insulin, hyperalimentation, Lidoderm, Maalox Plus, morphine p.r.n., nicotine patch, [place] nasal spray, Pepcid, saliva substitute, Singulair, Tylenol, and Xanax. OBJECTIVE: VITAL SIGNS: Blood pressure 136/69, temperature 97.4, respiratory rate is 20 with a pulse of 78, pulse ox is 97%. HEENT: Normocephalic, atraumatic. Conjunctivae are pale. Sclerae are nonicteric. NECK: Supple. No neck vein distention. CHEST: Clear to auscultation on percussion with no rales, rhonchi, or wheezing noted today. She has a port in her right chest wall. CARDIOVASCULAR: Regular rate and rhythm without murmurs, rubs, or gallops. ABDOMEN: Soft. Bowel sounds normal. No rebound or guarding or masses. EXTREMITIES: Show no cyanosis, clubbing, or edema. LABORATORY DATA AND IMAGING STUDIES: CBC: White blood cell count 5.5, hemoglobin 8.5 with a platelet count of 93,000. Chemistries: Sodium 136, potassium 4.1, chloride 100 with a CO2 of 25, BUN is 13 with a creatinine of 0.4. Glucose is 205 and acceptable. Calcium is 8.2. Mild elevation of her AST. Bilirubin is normal. Alkaline phosphatase is mildly elevated. Albumin is 3.0 and stable. ASSESSMENT: 1. Decreased p.o. nutrition secondary to oral ulcers and perhaps stomatitis secondary to chemotherapy. Patient will continue on hyperalimentation as she is only starting to get back to her ability to eat properly. We will continue to monitor her electrolytes closely. Sodium levels remain in the low normal range. She does have a history of hyponatremia thought to be secondary to syndrome of inappropriate antidiuretic hormone secondary to small cell cancer of the lung. 2. History of small cell cancer of the lung status post recent chemotherapy. Patient is status post neutropenia with bone, liver, and lung mets. 3. History of noninsulin-dependent diabetes mellitus. Patient is receiving insulin in the hyperalimentation. Sugar control has been acceptable. 4. History of anemia. Pancytopenia is resolved. Patient does remain mildly thrombocytopenic and mildly anemic. 5. History of hypertension. Slight elevation of her systolic blood pressure in recent days, has improved her systolic today at 136 with a diastolic of 69. PLAN: 1. Patient will continue rehabilitation in the TCU. 2. Patient will continue on TPN until we are certain that her oral intake is adequate. 3. Continue to adjust electrolytes in her hyperalimentation on a regular basis. Her phosphorus level had been low and we had increased phosphorus on her hyperalimentation. 4. She is status post antibiotic therapy for her severe neutropenia. All cultures were negative. 5. Continue close renal followup as patient remains on TPN with frequent adjustments of the electrolytes in her nutritional support formula. Delta Riley MD
[2017-06-19] MEDS: Lidocaine 5% Patch TD SCH (22:11)
--- NOTE | 2017-06-20 00:48 | HP ---
For Dr. Puente. CHIEF COMPLAINT: Deconditioning with stage IV lung cancer. HISTORY OF PRESENT ILLNESS: Patient is a 72-year-old female admitted recently for severe sepsis with neutropenia, and to beginning treatment for her stage IV lung cancer, recently diagnosed, cancer being stage IV small cell with vertebral metastasis, status post radiation. With this, patient is now on TCU with hyperalimentation to continue along with antibiotics as per Dr. Palmer and Dr. Hernandez, along with her renal function with fluid management with, Dr. Riley. Pulmonary consult, Dr. Eastman also to follow patient here. With this, patient is in no acute distress, sitting up. Her pancytopenic indices are improved with IV iron continuing for now. The patient is a complex patient with a comprehensive medically necessary and appropriate visit carried out in excess of 40 minutes in [id number] time during her admission history and physical for her to TCU. ALLERGIES: SULFA. MEDICATIONS: At this point include acetylcysteine, Ambien, Carafate, Claritin, hyperal, Decadron, desvenlafaxine, DuoNeb, Famvir, Venofer, Lidoderm, Maalox, Magic mouthwash, morphine, nicotine patch, [place] nasal spray, Pepcid, saliva substitute, Singulair, Xanax, Tylenol and Zofran. PAST MEDICAL HISTORY: Significant for diabetes, depression, hypertension, VRE urinary tract infection, metastatic small cell CA of the lung stage IV, arthritis, DJD of the knees, obesity, liver metastasis, chronic anxiety, intractable pain of cancer, smoker, COPD. FAMILY HISTORY AND SOCIAL HISTORY: Noncontributory with patient reporting one pack a day smoking history of significant period of time. Denies alcohol use. REVIEW OF SYSTEMS: A 12-point review of system was done, which was negative to questioning except as per items mentioned in history of present illness. PHYSICAL EXAMINATION: VITAL SIGNS: Temperature 97.4, pulse 78, respirations 20, blood pressure 136/69, pulse ox 98%. HEENT: Unremarkable. NECK: Supple. HEART: Regular rate. Occasional ectopic beat. LUNGS: Occasional rhonchi. ABDOMEN: Obese, soft, nontender. EXTREMITIES: No edema. NEUROLOGIC: Awake and alert. Decreased strength in lower extremities. SKIN: Otherwise warm, dry and clear. LABORATORY DATA: Patient's labs were done. White blood cell count 5.5, hemoglobin 8.5 improved from 8.1 yesterday, hematocrit 26.0, platelet count of 93,000 up from 25,000 four days prior. Her other testing included chem metabolic panel showing a nonfasting glucose of . ASSESSMENT: For this patient is that of deconditioning; pneumonia; status post chemotherapy with stage IV cancer of the lung with vertebral metastasis, status post radiation; neutropenic sepsis; diabetes; hypertension; anxiety; deconditioning; nutritional compromise; on hyperal with anemia; pancytopenia, improving. PLAN: For this patient is to follow up TCU protocols with patient to continue IV iron with patient to possibly be for VRE evaluation as per Dr. Palmer, Infectious Disease travel consultant with the patient's labs to be monitored and the patient monitored clinically. This is a complex patient with a comprehensive medically necessary and appropriate visit carried out in excess of 30 minutes [id number] time with this patient. Her questions were answered to her satisfaction with a copy of her CT scan of the chest given showing modest improvement. Yosef Reis MD
[2017-06-20] MEDS: Acetylcysteine 20% Inhal Soln (4ml) IH SCH ×4 (01:27→20:17)
[2017-06-20] MEDS: Albuterol-Ipratrop 3 mg / 0.5 (3 ml) UD IH SCH ×4 (01:27→20:17)
--- NOTE | 2017-06-20 05:20 | CON ---
DATE: 06/19/2017 REFERRING PHYSICIAN: Yosef Reis MD REASON FOR CONSULTATION: Chronic lung disease, cough, shortness of breath, metastatic lung cancer. 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 Now admitted to TICU to continue care. She is lying in the bed. Has extensive mucous membrane disease with ulceration, herpetic lesion on the lips which is slowly improving, odynophagia which is slowly improving, calorie malnourished, on IV TPN. No hemoptysis, hematemesis, hematuria or diarrhea reported. PAST MEDICAL HISTORY: As per history of present illness. ALLERGIES: SULFA. SOCIAL HISTORY: Recently stopped smoking, denied any alcohol use. FAMILY HISTORY: No significant cardiopulmonary disease reported. MEDICATIONS: She is on Mucomyst 20% 4 mL q.6h., Ambien 5 mg at bedtime p.r.n., Carafate 1 g twice a day, Claritin 10 mg daily, Decadron 2 mg daily, DuoNeb q.6h., Famvir 500 mg q.8h., insulin coverage, Intralipid 21 mL per hour, iron sucrose 100 mg daily, lidocaine at the affected area, Maalox p.r.n. basis, Magic mouthwash q.2h. p.r.n., morphine extended release 15 mg q.12h., morphine immediate release 15 mg q. 6 hours for severe pain, multivitamins, getting TPN, Nicoderm patch daily, nasal saline q.6h., Pepcid 40 mg daily, saliva substitute q.2h. p.r.n., Singulair 10 mg daily, Tylenol p.r.n., Xanax 0.5 mg twice a day, also Xanax 1 mg at bedtime, Zofran on p.r.n. basis. REVIEW OF SYSTEMS: No headache, no rhinitis. Oral ulcers and pain is getting better. Swallowing is little improved, still has mild cough. No nausea, no vomiting. No diarrhea. No leg pain. No leg swelling. Still having back pain. PHYSICAL EXAMINATION: GENERAL: Lying in the bed, no acute distress. VITAL SIGNS: Temperature is 98, heart rate 78, respiratory rate is 20, blood pressure 136/69, pulse ox 98% room air. HEENT: Moist mucous membrane. Ulcers are healing. NECK: Supple. Short thick neck. LUNGS: Have scattered rhonchi. HEART: S1, S2. ABDOMEN: Soft, nontender, no organomegaly. EXTREMITIES: No edema. NEUROLOGIC: Awake, alert, follows simple commands. LABORATORY DATA: Shows hemoglobin 8.5, hematocrit 26.0, WBC 5.5, platelet count is 93. Sodium 136, potassium 4.1, chloride 100, bicarbonate 25, BUN 13, creatinine 0.4, glucose 205, calcium 8.2, AST 46, ALT 48, alk phos is 137. Albumin is 3.0. Microbiology; blood culture and urine culture negative. Rectal swab has a VRE. IMPRESSION AND PLAN: Metastatic lung cancer involving the bones and liver, especially spine, requiring radiation therapy to spine status post chemotherapy, resolving pancytopenia, oropharyngeal dysphagia, has oral ulcers, resolving pneumonia, malnutrition - on TPN and IV. Continue to encourage p.o. intake, decrease Decadron to 1 mg daily, continue inhaled bronchodilator. SCD to lower extremity. Gastric prophylaxis. Out of bed to chair, physical therapy. Thank you and we will follow with you. Robert Eastman MD
[2017-06-20] MEDS: Sucralfate 1 gm/10 ml Oral Susp UD PO SCH ×2 (05:26→16:04)
[2017-06-20 06:45] LABS: BASO # 0.05 K/mm3 (0.0-2.0); BASO % 0.7 % (0.0-3.0); GRAN # 4.94 (1.4-6.5); GRAN % 74.2 % (50.0-68.0); HEMOGLOBIN 8.5 g/dL (12.0-16.0); LYMPH # 0.8 (1.2-3.4); LYMPH % 11.2 % (22.0-35.0); MEAN CORPUSCULAR HEMOGLOBIN 29.2 pg (25.0-35.0); MEAN CORPUSCULAR HGB CONC 33.2 g/dl (31.0-37.0); MONO # 0.9 (0.1-0.6); MONO % 13.9 % (1.0-6.0); PLATELET COUNT 97 10^3/uL (120.0-450.0); RBC 2.91 10^6/uL (3.5-6.1); RED CELL DISTRIBUTION WIDTH 14.9 % (11.5-14.5); WHITE BLOOD COUNT 6.7 10^3/ul (4.5-11.0)
[2017-06-20 06:58] LABS: INR 1.18 (0.93-1.08); PROTHROMBIN TIME 13.6 SECONDS (9.4-12.5)
[2017-06-20] MEDS: Insulin Reg-MEDIUM-Coverage SC SCH ×4 (07:23→22:00)
[2017-06-20 07:26] LABS: ALT/SGPT 71 U/L (7-56); AST/SGOT 82 U/L (14-36); BLOOD UREA NITROGEN 12 mg/dL (7-21); CALCIUM 8.6 mg/dL (8.4-10.5); GFR AFRICAN-AMERICAN > 60; GFR NON-AFRICAN AMERICAN > 60
--- NOTE | 2017-06-20 09:11 | CON ---
DATE: 06/19/2017 HISTORY OF PRESENT ILLNESS: This is a 72-year-old female with past medical history of metastatic lung involving bone, liver, spine for which she received radiation and now transferred to TCU and called to evaluate the patient for weakness of the legs. Past medical history of pneumonia and metastatic lung disease. Called to evaluate the patient. This is a 72-year-old female with past medical history of diabetes, hypertension. The patient was admitted with lung cancer with metastatic disease and now transferred to TCU for continued medical therapy and rehab. Called to evaluate for weakness of the legs for which she was getting physical therapy. REVIEW OF SYSTEMS: A 10-point review of systems was negative. PHYSICAL EXAMINATION: HEENT: Normocephalic, atraumatic. NECK: Supple. NEUROLOGIC: Alert, awake and oriented x3. No aphasia. Cranial nerves II through XII were tested. Pupils reactive. EOM intact. Visual field full. No facial asymmetry. Tongue midline. Motor examination, moves all the extremities, upper more than lower. Deep tendon reflexes 1+. Both plantars are downgoing. Sensory appears intact. Cerebellar and gait deferred. IMPRESSION: A 72-year-old female with past medical history of lung cancer with metastatic disease and transferred to rehab. Continue physical therapy. We will follow up. Angelito Li MD
[2017-06-20 10:17] LABS: ATYPICAL LYMPHOCYTE 2 % (0.0-0.0); BAND 3 % (0-2); CORRECTED WBC 6.4 K/mm3 (4.5-11.0); LYMPHOCYTE 14 % (22.0-35.0); MONOCYTE 9 % (1.0-6.0); MYELOCYTE 2 %; NEUTROPHIL 70 % (50.0-70.0); NUCLEATED RED BLOOD CELL 5 %
[2017-06-20] MEDS: Morphine 15 mg SR Tab PO SCH ×2 (10:30→21:41)
--- NOTE | 2017-06-20 17:12 | PN ---
DATE: 06/20/2017 NEUROLOGY FOLLOWUP CHIEF COMPLAINT: Followup for generalized weakness. SUBJECTIVE: Patient seen and examined at bedside. She will be going for some physical therapy today. She is currently getting iron infusion. No acute events overnight. PAST MEDICAL HISTORY: Type 2 diabetes mellitus, depression, low back tumor, obesity, admitted for thoracic tumor, stage IV lung cancer. REVIEW OF SYSTEMS: A 14-point review of systems negative except as per the HPI. FAMILY HISTORY: Noncontributory. ALLERGIES: SULFA MEDICATIONS. MEDICATIONS: Reviewed by nurse reconciliation sheet. SOCIAL HISTORY: No illicit drug use, smoking or EtOH abuse at this time. PHYSICAL EXAMINATION: VITAL SIGNS: Temperature 97.4, pulse rate 78, blood pressure 136/69, respiratory rate 20, oxygen saturation 98% on room air. GENERAL: Patient is sitting up in bed, in no acute distress. HEENT: Head is atraumatic, normocephalic. PERRLA. Extraocular muscles intact. NECK: Supple. No JVD, no adenopathy noted. LUNGS: Clear to auscultation. No adventitious sounds. HEART: S1, S2, normal rate and rhythm. No murmurs, rubs or gallops. ABDOMEN: Soft, nontender, nondistended. Bowel sounds present. EXTREMITIES: No clubbing, no cyanosis. Peripheral pulses 2+ felt bilaterally. NEUROLOGIC: Patient is alert, oriented to person, place, month and year. Speech is fluent without any errors. Motor: Moves all extremities equally. No pronator drift seen. Sensory: Decreased light touch and pinprick up to the calves bilaterally. Decreased vibration to the toes. DTRs are 2+ throughout, 1 at both knees and absent at the ankles. Coordination: [id number] intact. Gait is deferred for now. LABORATORY DATA: Sodium is 135, potassium 4.2, chloride 102, carbon dioxide 26, BUN of 12, creatinine 0.4, random glucose 198. ASSESSMENT AND PLAN: This is a 72-year-old woman with history of obesity, low back tumor, depression, hypertension, diabetes with vancomycin-resistant Enterococcus in the urine with stage IV lung cancer who was admitted for sepsis and generalized weakness, currently undergoing antibiotic treatment for sepsis due to hospital-acquired pneumonia, status post neutropenia and is getting iron infusion. Her generalized weakness is secondary to underlying chronic medical condition from underlying deconditioned state and as well as she has evidence of diabetic peripheral neuropathy her poor balance. RECOMMENDATIONS: At this time, recommend: 1. Physical and occupational therapy. 2. Continue with any antibiotics as per ID for underlying sepsis. 3. Monitor her electrolytes and correct accordingly. 4. Continue with hematology/oncology followup. Once again thank you for this followup. Francisco Li MD
[2017-06-20] MEDS: [UNRECOGNIZED DRUG - NUTRITION] IV SCH (17:47)
[2017-06-20] MEDS: Fat Emulsion 20% IV 250 ML IV SCH (17:48)
--- NOTE | 2017-06-20 19:32 | PN ---
DATE: 06/20/2017 SUBJECTIVE: Patient is seen sitting in chair. She complains that she has to go to the bathroom. PHYSICAL EXAMINATION: GENERAL: Elderly lady sitting in chair. VITAL SIGNS: Blood pressure 136/69, heart rate 78, respiratory rate 20, temperature 97.4. HEENT: Normocephalic, atraumatic. NECK: Supple, no JVD. LUNGS: Bilateral equal air entry, no rales. CARDIAC: S1, S2. Regular rate and rhythm. No murmur, no rub. ABDOMEN: Obese, distended, soft, nontender, bowel sounds present. EXTREMITIES: No lower extremity edema. LABORATORY DATA: WBC 6.7, hemoglobin 8.5, hematocrit 26, platelets 97. Sodium 135, potassium 4.2, chloride 102, CO2 of 26, BUN 12, creatinine 0.4, glucose 198, calcium 8.6, phosphorus 3.1, magnesium 2.0. AST 82, ALT 71, albumin 3.0. CURRENT MEDICATIONS: Mucomyst, Ambien, Carafate, Claritin, Decadron, Famvir, hyperal. ASSESSMENT: 1. Hypokalemia, resolved. 2. Mild hyponatremia. 3. Elevated liver function tests. 4. Stage IV small cell cancer of the lungs. 5. Status post mucositis. 6. Severe anemia. PLAN: 1. Continue hyperal. 2. Advance p.o. intake as tolerated. 3. Monitor counts. 4. Cancer management as per Oncology team. Dana Hawkins MD
[2017-06-20] MEDS: Lidocaine 5% Patch TD SCH (22:00)
[2017-06-21] MEDS: Acetylcysteine 20% Inhal Soln (4ml) IH SCH ×4 (01:04→20:31)
[2017-06-21] MEDS: Albuterol-Ipratrop 3 mg / 0.5 (3 ml) UD IH SCH ×4 (01:04→20:31)
--- NOTE | 2017-06-21 01:13 | PN ---
DATE: 06/20/2017 REFERRING PHYSICIAN: Yosef Reis MD. SUBJECTIVE: She is lying in the bed with head at 45 degrees, speaking to her daughter on the cell phone. The day was unremarkable. Feels much better. Overall, better, p.o. intake has improved. Cough is better. No nausea. No vomiting. No diarrhea. No leg pain or leg swelling. OBJECTIVE: GENERAL: In no acute distress. VITAL SIGNS: Temperature is 98, heart rate is 80, respiratory rate is 20, blood pressure is 134/92, pulse ox 96% on 3 liter nasal canula. HEENT: Moist mucous membrane. Crowded airway. NECK: Supple. No JVD. LUNGS: Have a few scattered rhonchi. HEART: S1, S2. ABDOMEN: Soft, nontender. No organomegaly. EXTREMITIES: No edema. NEUROLOGIC: Awake, alert, follows simple commands. LABORATORY DATA: Shows hemoglobin 8.5, hematocrit 25.6, WBC 6.7, platelet is 97. INR is 1.18. Sodium 135, potassium 4.2, chloride 102, bicarbonate is 26, BUN 12, creatinine 0.4, glucose 198, calcium is 8.6, phosphorus 3.1, magnesium 2.0, AST 82, ALT 71, alkaline phosphatase is 186, albumin is 3.0. MEDICATIONS: She is on Mucomyst inhaler q. 6 hour, Ambien 5 mg at bedtime p.r.n., Carafate 1 g twice a day, Claritin 10 mg daily, dexamethasone 1 mg daily, DuoNeb q. 6 hour, Famvir 500 mg q. 8 hour, insulin coverage, iron sucrose 100 mg daily, Lidoderm patch to the affected area, getting Magic mouthwash q. 2 hour p.r.n., morphine sulfate extended release 15 mg q. 12 hour, morphine immediate release 15 mg q. 6 hours p.r.n., getting TPN, Nicoderm patch daily, nasal saline 1 spray to each nostril daily, Pepcid 40 mg daily, saliva substitute q. 2 hour p.r.n., Singulair 10 mg daily, Tylenol p.r.n., Xanax 0.5 mg twice a day, Zofran on p.r.n. basis. IMPRESSION AND PLAN: Metastatic lung cancer involving the bones and liver, especially spine, requiring radiation therapy, been on chemotherapy, status post pancytopenia, which is improving, oropharyngeal dysphagia is improving, pneumonia mostly has gone, malnutrition. Spoke to patient and patient's daughter. All the questions answered. This is the good time for her to start therapy. Encouraged p.o. intake. Continue bronchodilator. We will try to taper Decadron already 1 mg hopefully next 2 days and so can cut down to 0.5 mg. Gastric prophylaxis. Sequential compression devices to lower the extremities, fall precaution. Thank you and we will follow with you. Robert Eastman MD
--- NOTE | 2017-06-21 04:51 | PN ---
DATE: 06/20/2017 ONCOLOGY PROGRESS NOTE LOCATION: The patient is in room 303, bed 1. SUBJECTIVE: The patient is seen lying in bed, complaining of some back pain, but overall has been feeling better. Appetite is improved. She was able to eat everything on a plate yesterday and had some food this morning. Pain in the back is almost negligible on the current dose of the medicine. PHYSICAL EXAMINATION: GENERAL: The patient is awake, alert, and oriented, in no significant distress. She was sleeping, but I woke her up and we had a rather significant intelligent conversation. VITAL SIGNS: Stable. Blood pressure , heart rate is 78, respirations 20, T-max is 97.4. HEENT: Head is normocephalic and atraumatic. Conjunctivae are pale. Sclerae are anicteric. Pupils are equally reactive to light and accommodation. Examination of the oropharynx reveals no oropharyngeal lesions. Tongue is moist. No ulcerations are noted. The patient is edentulous. NECK: Supple. There is no adenopathy. LUNGS: Clear to percussion and auscultation. HEART: Examination of the heart reveals S1 and S2 to be normal. No gallop or murmurs heard. BACK: Examination of the back reveals very minimal back pain, which she was having before, that was radiating from the back anteriorly to the inframammary region. ABDOMEN: Soft, protuberant, and nontender. Liver and spleen are not palpable. No rebound, rigidity, or guarding is noted. Previously noted epigastric tenderness has improved. EXTREMITIES: Reveals no cyanosis, clubbing or edema. NEUROLOGIC: Reveals higher functions to be normal. No focal deficits are noted. GENITOURINARY: Deferred. RECTAL: Deferred. LABORATORY DATA: From today reveals a white count of 6.7, hemoglobin 8.5, hematocrit 26, and platelet count 97,000. Sodium is 135, K is 4.2, chloride 102, CO2 of 26, BUN of 12, creatinine 0.4, and glucose 198. Calcium is 8.6. Phosphorus is 3.1. Magnesium is 2. AST is 82, ALT is 71, albumin is 3. CURRENT MEDICATIONS: List include Mucomyst, Ambien, Carafate, Claritin, Decadron, Famvir, MS Contin, and MS-IR. ASSESSMENT NOTES: The patient has hypokalemia, which resolved; mild hyponatremia; abnormal liver function tests; extensive small cell carcinoma of the lung with documented liver and bone metastases, status post radiation, status post one cycle of carboplatin and etoposide chemotherapy; status post mucositis; status post neutropenic sepsis; severe anemia. PLAN: The patient, even though the appetite is improved, gets Carafate . Continue hyperal. Advance p.o. intake. Monitor counts. Plan would be to assess the patient for additional treatment in about 2 to [address] Goyal about additional radiation to the lung primary as well. Even though the CAT scan shows improvement, lung mass and the hilar and mediastinal adenopathy persists. Routine post-exam instructions have been given to the patient. I instructed to the patient she has to sit out of bed and we have to give her a trial of physical therapy, both passive and active movements so that we can then plan which direction the patient should be heading, whether to home or to subacute rehab. The patient did not want to consider subacute rehab. For now, I reinstated to her and asserted to her the fact that she must move to help us in helping her as far as active physical therapy is concerned. Try to control her pain medications as best as possible when she becomes more mobile. Time spent with the patient greater than 45 minutes in correlating all the information, reviewing all the labs, going over the CAT scan findings and discussing with the patient. We will speak to the son as well later on this afternoon. Time spent with the patient, greater than 60 minutes. Rudy Puente MD
[2017-06-21] MEDS: Sucralfate 1 gm/10 ml Oral Susp UD PO SCH ×2 (06:00→17:50)
[2017-06-21] MEDS: Insulin Reg-MEDIUM-Coverage SC SCH ×4 (06:50→22:52)
[2017-06-21 07:00] LABS: BASO # 0.03 K/mm3 (0.0-2.0); BASO % 0.4 % (0.0-3.0); EOS % 0.1 % (1.5-5.0); GRAN # 5.67 (1.4-6.5); GRAN % 77.7 % (50.0-68.0); LYMPH # 0.9 (1.2-3.4); LYMPH % 11.8 % (22.0-35.0); MEAN CELL VOLUME 89.1 fl (80.0-105.0); MEAN CORPUSCULAR HEMOGLOBIN 28.8 pg (25.0-35.0); MEAN CORPUSCULAR HGB CONC 32.3 g/dl (31.0-37.0); MONO # 0.7 (0.1-0.6); PLATELET COUNT 123 10^3/uL (120.0-450.0); RBC 3.13 10^6/uL (3.5-6.1); RED CELL DISTRIBUTION WIDTH 15.3 % (11.5-14.5); WHITE BLOOD COUNT 7.3 10^3/ul (4.5-11.0)
[2017-06-21 07:40] LABS: ALBUMIN 3.1 g/dL (3.0-4.8); ALT/SGPT 85 U/L (7-56); AST/SGOT 105 U/L (14-36); BLOOD UREA NITROGEN 12 mg/dL (7-21); CALCIUM 8.6 mg/dL (8.4-10.5); GFR AFRICAN-AMERICAN > 60; GFR NON-AFRICAN AMERICAN > 60
[2017-06-21 08:49] LABS: BAND 6 % (0-2); CORRECTED WBC 6.9 K/mm3 (4.5-11.0); LYMPHOCYTE 12 % (22.0-35.0); METAMYELOCYTE 2 %; MONOCYTE 8 % (1.0-6.0); MYELOCYTE 3 %; NEUTROPHIL 69 % (50.0-70.0); NUCLEATED RED BLOOD CELL 6 %
[2017-06-21] MEDS: Morphine 15 mg SR Tab PO SCH ×2 (09:53→21:17)
--- NOTE | 2017-06-21 14:11 | PN ---
DATE: SUBJECTIVE: The patient is currently seen sitting up in a chair. Hyperalimentation is infusing. Her appetite is significantly improved and according to the dietitian on the floor, she is eating approximately 50% to 60% of oral fluid that is brought to her. There is a question about when we can discontinue the hyperalimentation. MEDICATIONS: Medication list reviewed. The patient is currently on aluminum hydroxide, simethicone, diphenhydramine, lidocaine solution, acetylcysteine 20%, Ambien, Carafate, Claritin, Decadron, desvenlafaxine, DuoNeb, Famvir, acyclovir ointment, insulin, hyperalimentation, morphine p.r.n., nicotine patch, [place] nasal spray, Pepcid, saliva substitute, Singulair, Tylenol p.r.n., Xanax, and Zofran p.r.n. OBJECTIVE VITAL SIGNS: Blood pressure 151/73, up from 134/76 earlier. Temperature 98.7, respiratory rate 18 with a pulse of 81. HEENT: Normocephalic, atraumatic. Conjunctivae pale. Sclerae nonicteric. NECK: Supple. No neck vein distention. CHEST: Clear to auscultation and percussion with no rales, rhonchi or wheezing. She has a port in her right chest wall. CARDIOVASCULAR: Regular rate and rhythm without murmurs, rubs or gallops. ABDOMEN: Soft. Bowel sounds normal. No rebound, guarding or palpable masses. EXTREMITIES: Show no cyanosis, clubbing or edema. LABORATORY DATA AND IMAGING: CBC from today: White blood cell count 7.3, hemoglobin improved to 9.0 with a platelet count of 123,000. Coag showed a PT of 13.6 with an INR of 1.18. Chemistries showed sodium of 130 down from 135 despite receiving isotonic hyperalimentation, potassium 4.3, chloride 95. BUN 12 with a creatinine of 0.4. Glucose is 198. Elevation of her AST and ALT secondary to her liver metastases. Bilirubin level is normal. Alkaline phosphatase is 254. Albumin is 3.1. ASSESSMENT 1. By mouth intake improving with resolution of her oral ulcers and stomatitis secondary to chemotherapy. From my standpoint, as oral intake improves, the patient may have the hyperalimentation tapered or discontinued. She is on PPN that is peripheral parenteral nutrition so it can be discontinued without tapering. 2. History of mild hyponatremia. Sodium level is dropping 135 to 130. 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 We will continue hyperalimentation, this will contain isotonic saline. In all likelihood with increased p.o. fluid intake as her appetite improves, she is taking in more liquids. 3. History of small cell cancer, status post recent chemotherapy. The patient is status post neutropenia. She has bone, liver and lung metastases. 4. History of [id number] diabetes mellitus, the patient is receiving insulin in the hyperalimentation and glucose control has been acceptable. 5. History of anemia. Pancytopenia has resolved. The patient does remain borderline thrombocytopenic. 6. History of hypertension. Slight elevation of blood pressures is as noted above. The patient had not been using blood pressure medication at home. If necessary, the patient may be started on a low dose of the calcium channel dameon; prior to discharge, her systolic blood pressure has remained mildly elevated. PLAN 1. Continue rehabilitation in the TCU. 2. I will continue PPN until Dr. Puente and Dr. Reis are comfortable with oral intake; at which point in time, it may be discontinued. 3. 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 4. Continue to monitor labs on a daily basis as long as she remains on hyperalimentation. Delta Riley MD
[2017-06-21] MEDS ORDERED: [UNRECOGNIZED DRUG - NUTRITION] IV ONE (15:15)
[2017-06-21] MEDS ORDERED: Darbepoetin Alfa 100 mcg/ml Inj SC ONE (15:43)
[2017-06-21] MEDS ORDERED: Fat Emulsion 20% IV 250 ML IV ONE (18:00)
[2017-06-21] MEDS: Lidocaine 5% Patch TD SCH (21:15)
[2017-06-22] MEDS: Acetylcysteine 20% Inhal Soln (4ml) IH SCH ×4 (01:57→20:48)
[2017-06-22] MEDS: Albuterol-Ipratrop 3 mg / 0.5 (3 ml) UD IH SCH ×4 (01:58→20:49)
--- NOTE | 2017-06-22 02:58 | PN ---
PULMONARY PROGRESS NOTE DATE: 06/21/2017 REFERRING PHYSICIAN: Yosef Reis MD SUBJECTIVE: She is out of bed to chair, having dinner. Feels much better. Did participate in therapy. Cough is better. No nausea. Appetite is better. No abdominal pain. No dysuria. No leg pain or leg swelling. OBJECTIVE: GENERAL: In no acute distress. VITAL SIGNS: Temperature is 98, heart rate is 87, respiratory rate is 18, blood pressure 116/71, pulse ox 95% on nasal cannula. HEENT: Moist mucous membrane. Crowded airway. Mallampati score is 4. NECK: Supple. No JVD. LUNGS: Have a few crackles at the bases. Overall fair airflow. HEART: S1 and S2. ABDOMEN: Soft, nontender. No organomegaly. EXTREMITIES: There is no edema. NEUROLOGIC: Awake, alert, follows simple command. MEDICATIONS: She is on Mucomyst 20% inhaled q. 6 hour; Ambien 5 mg at bedtime p.r.n.; Carafate 1 gm twice a day; Claritin 10 mg daily; Decadron 1 mg daily; also on DuoNeb q. 6 hours; Famvir 500 mg q. 8 hours; iron sucrose 100 mg daily; lidocaine patch at affected area; Maalox p.r.n. basis; getting morphine sulfate 50 mg q. 12 hours, this is extended release; also morphine immediate release 15 mg q. 6 hours p.r.n.; Nicoderm patch daily; Pepcid 40 mg at bedtime; saliva substitute p.r.n.; Singulair 10 mg daily; Tylenol p.r.n.; Xanax 0.5 mg twice a day; also Xanax 1 mg at bedtime; Zofran on a p.r.n. basis. LABORATORY DATA: Shows hemoglobin 9.0, hematocrit 27.9, WBC 7.3, platelet count is 123. Sodium 130, potassium 4.3, chloride 95, bicarbonate 27, BUN 12, creatinine 0.4, glucose 198, calcium 8.6, AST 105, ALT 85, alk phos is 254. IMPRESSION AND PLAN: Metastatic lung cancer involving bone and liver, especially spine, requiring radiation therapy, has been on chemotherapy, pancytopenia which improved, oropharyngeal dysphagia which is improved, status post pneumonia which is also improved, malnutrition. Spoke to patient and the patient's daughter at bedside. All the questions answered. We will decrease Decadron to 0.5 mg daily. Continue bronchodilator. Keep head at 45 degrees. Pain management. Gastric prophylaxis. Sequential compression device to lower extremities. Continue therapy. Fall precautions. Thank you, and we will follow with you. Robert Eastman MD
[2017-06-22] MEDS: Sucralfate 1 gm/10 ml Oral Susp UD PO SCH ×2 (06:29→17:17)
[2017-06-22] MEDS: Insulin Reg-MEDIUM-Coverage SC SCH ×4 (06:38→22:27)
[2017-06-22 07:15] LABS: HEMOGLOBIN 8.7 g/dL (12.0-16.0); MEAN CELL VOLUME 88.3 fl (80.0-105.0); MEAN CORPUSCULAR HEMOGLOBIN 29.2 pg (25.0-35.0); MEAN CORPUSCULAR HGB CONC 33.1 g/dl (31.0-37.0); MEAN PLATELET VOLUME 11.1 fl (7.0-11.0); RBC 2.98 10^6/uL (3.5-6.1); RED CELL DISTRIBUTION WIDTH 15.1 % (11.5-14.5); WHITE BLOOD COUNT 6.8 10^3/ul (4.5-11.0)
[2017-06-22 07:31] LABS: ALBUMIN 3.1 g/dL (3.0-4.8); ALT/SGPT 76 U/L (7-56); AST/SGOT 81 U/L (14-36); BLOOD UREA NITROGEN 12 mg/dL (7-21); CALCIUM 8.5 mg/dL (8.4-10.5); GFR AFRICAN-AMERICAN > 60; GFR NON-AFRICAN AMERICAN > 60; MAGNESIUM 2.1 mg/dL (1.7-2.2)
[2017-06-22] MEDS: Morphine 15 mg SR Tab PO SCH ×2 (10:27→22:20)
--- NOTE | 2017-06-22 11:59 | CP.PCM.CON ---
History of Present Illness - History of Present Illness History of Present Illness: Ms Ye is a 72 year old female with stage IV small cell lung cancer. She is known to our department. She completed palliative radiation to the lower thoracic spine on June 01, 2017. She received a 1 cycle of chemotherapy. She reports some improvement in her back pain. Her oral sores have improved. She still feels general weakness, and is currently in the TCU. She denies any shortness of breath. Her CT of the chest reveals interval significant improvement of her pulmonary disease. She still has a right mediastinal adenopathy and mild adenopathy of the AP window and prevascular region. She has liver metastases as well. She is scheduled for her next cycle of chemotherapy. We were asked to see her to determine if there is a role for palliative radiation therapy to the lung at this time. She is currently on C.diff precautions Review of Systems - Constitutional Constitutional: Weakness - Musculoskeletal Musculoskeletal: Back Pain Additional comments: improvement in her back pain Past Patient History - Infectious Disease Hx of Infectious Diseases: None - Past Social History Smoking Status: Former Smoker - CARDIAC Hx Hypertension: Yes - PULMONARY Hx Respiratory Disorders: No - NEUROLOGICAL Hx Neurological Disorder: No - HEENT Hx HEENT Problems: No - RENAL Hx Chronic Kidney Disease: No - ENDOCRINE/METABOLIC Hx Diabetes Mellitus Type 1: Yes - HEMATOLOGICAL/ONCOLOGICAL Hx Blood Transfusions: No - INTEGUMENTARY Hx Dermatological Problems: No - MUSCULOSKELETAL/RHEUMATOLOGICAL Hx Arthritis: Yes - GASTROINTESTINAL Hx Gastrointestinal Disorders: (esophageal ulcers) - GENITOURINARY/GYNECOLOGICAL Hx Genitourinary Disorders: (external catheter) Hx Reproductive Disorders: No - PSYCHIATRIC Hx Psychophysiologic Disorder: Yes Hx Anxiety: Yes Hx Depression: Yes Hx Substance Use: No - SURGICAL HISTORY Hx Orthopedic Surgery: Yes (R KNEE) - ANESTHESIA Hx Anesthesia Reactions: No Hx Malignant Hyperthermia: No Meds Allergies/Adverse Reactions: Allergies Allergy/AdvReac Type Severity Reaction Status Date / Time Sulfa (Sulfonamide Allergy ANAPHYLAXIS Verified 06/18/17 14:53 Antibiotics) - Medications Medications: Current Medications Acetaminophen (Tylenol 325mg Tab) 650 mg PO Q4H PRN; Protocol PRN Reason: pain 4-10 Acetylcysteine (Acetylcysteine 20%) 4 ml IH [id number] KIMMY PRN Reason: Protocol Last Admin: 06/22/17 07:12 Dose: Not Given Al Hydrox/Mg Hydrox/Simethicone (Maalox Plus 30 Ml) 30 ml PO Q4 PRN; Protocol PRN Reason: Indigestion / Heartburn Albuterol/Ipratropium (Duoneb 3 Mg/0.5 Mg (3 Ml) Ud) 3 ml IH [id number] KIMMY PRN Reason: Protocol Last Admin: 06/22/17 07:12 Dose: 3 ml Alprazolam (Xanax) 1 mg PO HS KIMMY PRN Reason: Protocol Last Admin: 06/21/17 21:16 Dose: 1 mg Alprazolam (Xanax) 0.5 mg PO BID KIMMY Last Admin: 06/22/17 11:06 Dose: Not Given Al Hydrox/Mg Hydrox/Simethicone 30 ml/Diphenhydramine HCl 75 mg/Lidocaine 30 ml 0 ml PO Q2H PRN; Protocol PRN Reason: Mouth/Throat Pain Dexamethasone (Decadron) 0.5 mg PO 0800 KIMMY PRN Reason: Protocol Last Admin: 06/22/17 10:28 Dose: 0.5 mg Famciclovir (Famvir) 500 mg PO Q8 KIMMY PRN Reason: Protocol Last Admin: 06/22/17 06:30 Dose: 500 mg Famotidine (Pepcid) 40 mg PO HS KIMMY PRN Reason: Protocol Last Admin: 06/21/17 21:16 Dose: 40 mg Iron Sucrose 100 mg/ Sodium (Chloride) 105 mls @ 210 mls/hr IVPB 0600 KIMMY PRN Reason: Protocol Last Admin: 06/22/17 06:31 Dose: 210 mls/hr Insulin Human Regular (Humulin R Med) 0 units SC ACHS KIMMY PRN Reason: Protocol Last Admin: 06/22/17 06:38 Dose: Not Given Lidocaine (Lidoderm) 2 ea TD HS KIMMY PRN Reason: Protocol Last Admin: 06/21/17 21:15 Dose: 2 ea Loratadine (Claritin) 10 mg PO DAILY KIMMY PRN Reason: Protocol Last Admin: 06/22/17 10:27 Dose: 10 mg Montelukast Sodium (Singulair) 10 mg PO HS KIMMY PRN Reason: Protocol Last Admin: 06/21/17 21:17 Dose: 10 mg Morphine Sulfate (Morphine Extended Release Tab) 15 mg PO Q12 KIMMY PRN Reason: Protocol Last Admin: 06/22/17 10:27 Dose: 15 mg Morphine Sulfate (Morphine Immediate Release Tab) 15 mg PO Q6H PRN; Protocol PRN Reason: Pain, severe (8-10) Last Admin: 06/18/17 18:00 Dose: 15 mg Nicotine (Nicoderm Cq) 1 patch TD DAILY KIMMY PRN Reason: Protocol Last Admin: 06/22/17 10:28 Dose: 1 patch Desvenlafaxine (Succinate 50 Mg) 50 mg PO BID [facility] Last Admin: 06/22/17 11:04 Dose: Not Given Ondansetron HCl (Zofran Odt) 4 mg PO TID PRN; Protocol PRN Reason: Nausea/Vomiting Saliva Substitute (Saliva Substitute) 1 ml PO Q2 PRN; Protocol PRN Reason: Dry mouth Sodium Chloride ([place]) 1 ml NS DAILY PRN PRN Reason: Nasal congestion Sucralfate (Carafate Oral Susp) 1 gm PO 0600,1600 KIMMY PRN Reason: Protocol Last Admin: 06/22/17 06:29 Dose: 1 gm Zolpidem Tartrate (Ambien) 5 mg PO HS PRN; Protocol PRN Reason: Insomnia Results - Vital Signs Recent Vital Signs: Last Vital Signs Temp 98.2 F 06/22/17 10:00 Pulse 78 06/22/17 10:00 Resp 20 06/22/17 10:00 BP 136/72 06/22/17 10:00 Pulse Ox 96 06/22/17 10:00 - Labs Result Diagrams: 06/22/17 06:30 06/22/17 06:30 Labs: Laboratory Results - last 24 hr 06/21/17 06/21/17 06/22/17 17:04 22:10 06:15 WBC RBC Hgb Hct MCV MCH MCHC RDW Plt Count MPV Sodium Potassium Chloride Carbon Dioxide Anion Gap BUN Creatinine Est GFR ( Amer) Est GFR (Non-Af Amer) POC Glucose (mg/dL) 198 H 262 H 144 H Random Glucose Calcium Phosphorus Magnesium Total Bilirubin AST ALT Alkaline Phosphatase Total Protein Albumin Globulin Albumin/Globulin Ratio 06/22/17 06/22/17 06/22/17 06:30 06:30 11:02 WBC 6.8 RBC 2.98 L Hgb 8.7 L Hct 26.3 L MCV 88.3 MCH 29.2 MCHC 33.1 RDW 15.1 H Plt Count 132 MPV 11.1 H Sodium 131 L Potassium 3.9 Chloride 97 L Carbon Dioxide 26 Anion Gap 11 BUN 12 Creatinine 0.4 L Est GFR ( Amer) > 60 Est GFR (Non-Af Amer) > 60 POC Glucose (mg/dL) 162 H Random Glucose 189 H Calcium 8.5 Phosphorus 2.7 Magnesium 2.1 Total Bilirubin 0.4 AST 81 H D ALT 76 H Alkaline Phosphatase 288 H Total Protein 6.1 Albumin 3.1 Globulin 3.0 Albumin/Globulin Ratio 1.0 L Assessment & Plan - Assessment and Plan (Free Text) Assessment: Ms Ye is a 72 year old female with stage IV small cell lung cancer. She completed palliative radiation to the thoracic spine. She received 1 cycle of chemotherapy and has had interval improvement in her pulmonary disease. At this point, we would hold off on offering palliative radiation to the lung since she is responding well to the chemotherapy and does not have any pulmonary issues. If she is having issues or does not respond, we would agree that we would offer her radiation at that time. We will also recommend an interval MRI of the brain in 3 months to assess for change given the tiny nonspecific lesion identified. She will be seeing us again in early July to assess how she is doing.
--- NOTE | 2017-06-22 15:22 | CP.PCM.PN ---
Subjective - Date & Time of Evaluation Date of Evaluation: 06/22/17 Time of Evaluation: 10:10 - Subjective Subjective: Lex Andino D.O. PGY-2, Internal Medicine Resident, Hem/Onc, Progress Note 72 year old female with a PMH of stage IV small cell lung cancer recently started chemotherapy with carboplatin and etoposide who presented for some shortness of breath, congestion, and a period of altered sensorium, stabilized and now undergoing rehabilitation in the TCU. Patient was seen and examined at bedside. Has been more active with PT. Now off hyperalimentation and doing well with food intake PO. Objective - Vital Signs/Intake and Output Vital Signs (last 24 hours): Temp Pulse Resp BP Pulse Ox 98.2 F 78 20 136/72 96 06/22/17 10:00 06/22/17 10:00 06/22/17 10:00 06/22/17 10:00 06/22/17 10:00 Intake and Output: 06/22/17 06/22/17 06:59 18:59 Intake Total 360 120 Output Total 401 50 Balance -41 70 - Medications Medications: Current Medications Acetaminophen (Tylenol 325mg Tab) 650 mg PO Q4H PRN; Protocol PRN Reason: pain 4-10 Acetylcysteine (Acetylcysteine 20%) 4 ml IH [id number] KIMMY PRN Reason: Protocol Last Admin: 06/22/17 13:55 Dose: Not Given Al Hydrox/Mg Hydrox/Simethicone (Maalox Plus 30 Ml) 30 ml PO Q4 PRN; Protocol PRN Reason: Indigestion / Heartburn Albuterol/Ipratropium (Duoneb 3 Mg/0.5 Mg (3 Ml) Ud) 3 ml IH [id number] KIMMY PRN Reason: Protocol Last Admin: 06/22/17 13:55 Dose: 3 ml Alprazolam (Xanax) 1 mg PO HS KIMMY PRN Reason: Protocol Last Admin: 06/21/17 21:16 Dose: 1 mg Alprazolam (Xanax) 0.5 mg PO BID [facility] Last Admin: 06/22/17 11:06 Dose: Not Given Al Hydrox/Mg Hydrox/Simethicone 30 ml/Diphenhydramine HCl 75 mg/Lidocaine 30 ml 0 ml PO Q2H PRN; Protocol PRN Reason: Mouth/Throat Pain Dexamethasone (Decadron) 0.5 mg PO 0800 [facility] PRN Reason: Protocol Last Admin: 06/22/17 10:28 Dose: 0.5 mg Famciclovir (Famvir) 500 mg PO Q8 KIMMY PRN Reason: Protocol Last Admin: 06/22/17 14:49 Dose: 500 mg Famotidine (Pepcid) 40 mg PO HS KIMMY PRN Reason: Protocol Last Admin: 06/21/17 21:16 Dose: 40 mg Iron Sucrose 100 mg/ Sodium (Chloride) 105 mls @ 210 mls/hr IVPB 0600 KIMMY PRN Reason: Protocol Last Admin: 06/22/17 06:31 Dose: 210 mls/hr Insulin Human Regular (Humulin R Med) 0 units SC ACHS KIMMY PRN Reason: Protocol Last Admin: 06/22/17 11:40 Dose: 1 units Lidocaine (Lidoderm) 2 ea TD HS KIMMY PRN Reason: Protocol Last Admin: 06/21/17 21:15 Dose: 2 ea Loratadine (Claritin) 10 mg PO DAILY [facility] PRN Reason: Protocol Last Admin: 06/22/17 10:27 Dose: 10 mg Montelukast Sodium (Singulair) 10 mg PO HS [facility] PRN Reason: Protocol Last Admin: 06/21/17 21:17 Dose: 10 mg Morphine Sulfate (Morphine Extended Release Tab) 15 mg PO Q12 [facility] PRN Reason: Protocol Last Admin: 06/22/17 10:27 Dose: 15 mg Morphine Sulfate (Morphine Immediate Release Tab) 15 mg PO Q6H PRN; Protocol PRN Reason: Pain, severe (8-10) Last Admin: 06/18/17 18:00 Dose: 15 mg Nicotine (Nicoderm Cq) 1 patch TD DAILY [facility] PRN Reason: Protocol Last Admin: 06/22/17 10:28 Dose: 1 patch Desvenlafaxine (Succinate 50 Mg) 50 mg PO BID [facility] Last Admin: 06/22/17 11:04 Dose: Not Given Ondansetron HCl (Zofran Odt) 4 mg PO TID PRN; Protocol PRN Reason: Nausea/Vomiting Saliva Substitute (Saliva Substitute) 1 ml PO Q2 PRN; Protocol PRN Reason: Dry mouth Sodium Chloride ([place] Nasal [place]) 1 ml NS DAILY PRN PRN Reason: Nasal congestion Sucralfate (Carafate Oral Susp) 1 gm PO 0600,1600 [facility] PRN Reason: Protocol Last Admin: 06/22/17 06:29 Dose: 1 gm Zolpidem Tartrate (Ambien) 5 mg PO HS PRN; Protocol PRN Reason: Insomnia - Labs Labs: 06/22/17 06:30 06/22/17 06:30 PT 13.6 SECONDS (9.4-12.5) H 06/20/17 06:30 INR 1.18 (0.93-1.08) H 06/20/17 06:30 - Constitutional Appears: Non-toxic, No Acute Distress, Chronically Ill - Head Exam Head Exam: ATRAUMATIC, NORMOCEPHALIC - Eye Exam Eye Exam: EOMI, PERRL - ENT Exam ENT Exam: Mucous Membranes Dry, healed lip lesion - Neck Exam Neck exam: Positive for: Normal Inspection - Respiratory Exam Respiratory Exam: Clear to Auscultation Bilateral, Rales, Rhonchi, Wheezes. absent: Accessory Muscle Use, Respiratory Distress - Cardiovascular Exam Cardiovascular Exam: RRR, +S1, +S2. absent: Gallop, Rubs - GI/Abdominal Exam GI & Abdominal Exam: Normal Bowel Sounds, Soft. absent: Distended, Tenderness - Extremities Exam Extremities exam: Positive for: pedal edema (trace). Negative for: calf tenderness - Back Exam Back exam: absent: CVA tenderness (L), CVA tenderness (R), paraspinal tenderness - Neurological Exam Neurological exam: Alert, Oriented x3 - Psychiatric Exam Psychiatric exam: Normal Affect, Normal Mood - Skin Skin Exam: Dry, Warm Assessment and Plan - Assessment and Plan (Free Text) Assessment: 72 year old female with a PMH of stage IV small cell lung cancer recently started chemotherapy with carboplatin and etoposide who presented for some shortness of breath, congestion, and a period of altered sensorium, stabilized and now undergoing rehabilitation in the TCU. Plan: Deconditioning Multifocal pneumonia/HCAP - resolved Neutropenic sepsis - resolved Pancytopenia - improving Stage IV small cell lung cancer s/p XRT and chemotherapy w/ carboplatin and etoposide Herpetic mouth lesions - resolved Esophagitis/mucositis -improving Continue PT Continue all current medications Consulted radiation oncology to re-visit question of radiotherapy in the future Continue medical optimization Encouraged PO intake Encouraged IS use Following closely Patient was seen and examined and case was discussed in detail with attending physician
[2017-06-22] MEDS: Vitamin A/D oint 60G TP SCH ×2 (16:02→22:24)
--- NOTE | 2017-06-22 19:45 | PN ---
DATE: 06/22/2017 PULMONARY PROGRESS NOTE REFERRING PHYSICIAN: Yosef Reis MD SUBJECTIVE: She is out of bed to reclining chair. Having lunch. Night was unremarkable. Feels better. Decreased cough and shortness of breath. No nausea. No vomiting. Abdominal pain is better. No leg pain or leg swelling. OBJECTIVE: GENERAL: In no acute distress. VITAL SIGNS: Temperature is 98, heart rate is 78, respiratory rate is 20, blood pressure 136/72 and pulse oximetry 96% on nasal cannula. HEENT: Moist mucous membrane. A few ulcers. Dry mucous membranes. Small oral cavity. LUNGS: Has a fair airflow with rhonchi. HEART: S1 and S2. ABDOMEN: Soft, nontender. No organomegaly. EXTREMITIES: There is no edema. NEUROLOGIC: Awake, alert, follows simple command. MEDICATIONS: She is on Mucomyst inhaler q.6 hour, Ambien 5 mg at bedtime p.r.n., Carafate 1 g twice a day, Claritin 10 mg daily, Decadron 0.5 mg daily, also on DuoNeb q.6 hours, Famvir 500 mg q.8 hours, insulin coverage, IV iron 100 mg daily, Lidoderm patch to the affected area, Maalox p.r.n. basis, Magic solution in the mouth swish and swallow, morphine extended release 15 mg q.12 hours, morphine immediate release 15 mg q.6 hours p.r.n., Nicoderm patch daily, nasal saline 1 spray to each nostril p.r.n., Pepcid 40 mg daily, saliva substitute q. 2 hours p.r.n., Singulair 10 mg daily, Tylenol p.r.n., Xanax 0.5 mg twice a day, also Xanax 1 mg p.o. at bedtime, Zofran 4 mg 3 times a day p.r.n. LABORATORY DATA: Shows hemoglobin 8.7 hematocrit 26.3, WBC 6.3, platelet count is 132. Sodium 131, potassium 3.9, chloride 97, bicarbonate 26, BUN 12, creatinine 0.4, glucose 189. Calcium is 8.5, phosphorous is 2.7, magnesium 2.1. AST 81, ALT 76, alk phos is 288. Albumin is 3.1. IMPRESSION AND PLAN: Metastatic lung cancer involving the bones and liver, especially spine, status post radiation therapy, been on chemotherapy, improving post chemo , oropharyngeal ulcers are improving status post pneumonia, malnutrition. From a pulmonary point of view, doing well. Continue bronchodilator. Keep head at 45 degree. Now she is on small dose of Decadron. Gastric prophylaxis. SCDs to lower extremities. Fall precautions. The patient was evaluated by Radiation/Oncology. Continue therapy. Thank you and we will follow with you. Robert Eastman MD
--- NOTE | 2017-06-22 22:04 | PN ---
DATE: 06/22/2017 SUBJECTIVE: Patient is seen sitting in chair. She is awake. She is alert. She is eating lunch. PHYSICAL EXAMINATION: GENERAL: Elderly lady sitting in chair. VITAL SIGNS: Blood pressure 136/72, heart rate 78, respiratory rate 20, temperature 98.2. HEENT: Normocephalic, atraumatic. NECK: Supple, no JVD. LUNGS: Bilateral equal air entry. No rales. EXTREMITIES: No lower extremity edema. LABORATORY DATA: WBC 6, hemoglobin 8.7, hematocrit 26, platelets 132. Sodium 131, potassium 3.9, chloride 97, CO2 of 26, BUN 12, creatinine 0.4, glucose 189, calcium 8.5, phosphorus 2.7, magnesium 2.1. AST 81, ALT is 76. CURRENT MEDICATIONS: Mucomyst, Ambien, Carafate, Claritin, Decadron, DuoNeb, Famvir, Lidoderm, Maalox. ASSESSMENT: 1. Hyponatremia, mild. 2. Hypokalemia, resolved. 3. Small cell cancer. 4. Noninsulin-dependent diabetes mellitus. 5. Anemia. 6. Hypertension. PLAN: 1. Patient is off TPN now, patient is eating. 2. Continue physical therapy. 3. Restrict p.o. fluids. 4. Continue IV iron. Dana Hawkins MD
[2017-06-22] MEDS: Lidocaine 5% Patch TD SCH (22:24)
[2017-06-23] MEDS: Acetylcysteine 20% Inhal Soln (4ml) IH SCH ×4 (01:25→20:27)
[2017-06-23] MEDS: Albuterol-Ipratrop 3 mg / 0.5 (3 ml) UD IH SCH ×4 (01:25→20:27)
[2017-06-23] MEDS: Sucralfate 1 gm/10 ml Oral Susp UD PO SCH ×2 (05:39→17:53)
[2017-06-23] MEDS: Vitamin A/D oint 60G TP SCH ×3 (06:36→21:20)
[2017-06-23] MEDS: Insulin Reg-MEDIUM-Coverage SC SCH ×4 (06:38→22:10)
[2017-06-23 07:36] LABS: ALT/SGPT 77 U/L (7-56); AST/SGOT 76 U/L (14-36); BLOOD UREA NITROGEN 12 mg/dL (7-21); CALCIUM 8.6 mg/dL (8.4-10.5); GFR AFRICAN-AMERICAN > 60; GFR NON-AFRICAN AMERICAN > 60
[2017-06-23 07:46] LABS: HEMOGLOBIN 8.6 g/dL (12.0-16.0); MEAN CORPUSCULAR HEMOGLOBIN 29.5 pg (25.0-35.0); MEAN CORPUSCULAR HGB CONC 33.1 g/dl (31.0-37.0); MEAN PLATELET VOLUME 11.1 fl (7.0-11.0); RBC 2.92 10^6/uL (3.5-6.1); RED CELL DISTRIBUTION WIDTH 15.8 % (11.5-14.5); WHITE BLOOD COUNT 7.3 10^3/ul (4.5-11.0)
[2017-06-23] MEDS: Morphine 15 mg SR Tab PO SCH ×2 (09:18→21:20)
--- NOTE | 2017-06-23 12:48 | CP.PCM.PN ---
Subjective - Date & Time of Evaluation Date of Evaluation: 06/23/17 Time of Evaluation: 10:00 - Subjective Subjective: Lex Andino D.O. PGY-2, Internal Medicine Resident, Hem/Onc, Progress Note 72 year old female with a PMH of stage IV small cell lung cancer recently started chemotherapy with carboplatin and etoposide who presented for some shortness of breath, congestion, and a period of altered sensorium, stabilized and now undergoing rehabilitation in the TCU. Patient was seen and examined while ambulating with physical therapy. States doing better but needs something for her lips which are dry. Still having some inner thigh/vaginal irritation. Objective - Vital Signs/Intake and Output Vital Signs (last 24 hours): Temp Pulse Resp BP Pulse Ox 97.3 F L 83 20 120/63 95 06/22/17 16:25 06/22/17 16:25 06/22/17 16:25 06/22/17 16:25 06/22/17 16:25 Intake and Output: 06/23/17 06/23/17 06:59 18:59 Intake Total 360 Output Total 275 Balance 85 - Medications Medications: Current Medications Acetaminophen (Tylenol 325mg Tab) 650 mg PO Q4H PRN; Protocol PRN Reason: pain 4-10 Acetylcysteine (Acetylcysteine 20%) 4 ml IH [id number] KIMMY PRN Reason: Protocol Last Admin: 06/23/17 07:18 Dose: Not Given Al Hydrox/Mg Hydrox/Simethicone (Maalox Plus 30 Ml) 30 ml PO Q4 PRN; Protocol PRN Reason: Indigestion / Heartburn Albuterol/Ipratropium (Duoneb 3 Mg/0.5 Mg (3 Ml) Ud) 3 ml IH [id number] KIMMY PRN Reason: Protocol Last Admin: 06/23/17 07:18 Dose: 3 ml Alprazolam (Xanax) 1 mg PO HS KIMMY PRN Reason: Protocol Last Admin: 06/22/17 22:22 Dose: 1 mg Alprazolam (Xanax) 0.5 mg PO BID [facility] Last Admin: 06/23/17 09:20 Dose: Not Given Al Hydrox/Mg Hydrox/Simethicone 30 ml/Diphenhydramine HCl 75 mg/Lidocaine 30 ml 0 ml PO Q2H PRN; Protocol PRN Reason: Mouth/Throat Pain Dexamethasone (Decadron) 0.5 mg PO 0800 [facility] PRN Reason: Protocol Last Admin: 06/23/17 08:35 Dose: 0.5 mg Emollient Ointment (Vaseline Oint) 5 gm TOP DAILY PRN PRN Reason: Dry skin Famciclovir (Famvir) 500 mg PO Q8 [facility] PRN Reason: Protocol Last Admin: 06/23/17 06:36 Dose: 500 mg Famotidine (Pepcid) 40 mg PO HS [facility] PRN Reason: Protocol Last Admin: 06/22/17 22:23 Dose: 40 mg Iron Sucrose 100 mg/ Sodium (Chloride) 105 mls @ 210 mls/hr IVPB 0600 [facility] PRN Reason: Protocol Last Admin: 06/23/17 05:39 Dose: 210 mls/hr Insulin Human Regular (Humulin R Med) 0 units SC ACHS [facility] PRN Reason: Protocol Last Admin: 06/23/17 12:31 Dose: 3 units Lidocaine (Lidoderm) 2 ea TD HS [facility] PRN Reason: Protocol Last Admin: 06/22/17 22:24 Dose: 2 ea Loratadine (Claritin) 10 mg PO DAILY [facility] PRN Reason: Protocol Last Admin: 06/23/17 09:19 Dose: 10 mg Miconazole Nitrate (Monistat 7 Vaginal Cream) 0 ea VG HS [facility] Montelukast Sodium (Singulair) 10 mg PO HS [facility] PRN Reason: Protocol Last Admin: 06/22/17 22:24 Dose: 10 mg Morphine Sulfate (Morphine Extended Release Tab) 15 mg PO Q12 [facility] PRN Reason: Protocol Last Admin: 06/23/17 09:18 Dose: 15 mg Morphine Sulfate (Morphine Immediate Release Tab) 15 mg PO Q6H PRN; Protocol PRN Reason: Pain, severe (8-10) Last Admin: 06/18/17 18:00 Dose: 15 mg Nicotine (Nicoderm Cq) 1 patch TD DAILY [facility] PRN Reason: Protocol Last Admin: 06/23/17 09:19 Dose: 1 patch Non-Formulary Medication (Desvenlafaxine Succinate) 100 mg PO HS [facility] Ondansetron HCl (Zofran Odt) 4 mg PO TID PRN; Protocol PRN Reason: Nausea/Vomiting Saliva Substitute (Saliva Substitute) 1 ml PO Q2 PRN; Protocol PRN Reason: Dry mouth Sodium Chloride ([place] Nasal [place]) 1 ml NS DAILY PRN PRN Reason: Nasal congestion Sucralfate (Carafate Oral Susp) 1 gm PO 0600,1600 KIMMY PRN Reason: Protocol Last Admin: 06/23/17 05:39 Dose: 1 gm Vitamin A (Vitamin A&D) 1 applic TP Q8 KIMMY Last Admin: 06/23/17 06:36 Dose: 1 applic Zolpidem Tartrate (Ambien) 5 mg PO HS PRN; Protocol PRN Reason: Insomnia - Labs Labs: 06/23/17 06:50 06/23/17 06:50 PT 13.6 SECONDS (9.4-12.5) H 06/20/17 06:30 INR 1.18 (0.93-1.08) H 06/20/17 06:30 - Constitutional Appears: Non-toxic, No Acute Distress, Chronically Ill - Head Exam Head Exam: ATRAUMATIC, NORMOCEPHALIC - Eye Exam Eye Exam: EOMI, PERRL - ENT Exam ENT Exam: Mucous Membranes Dry, healed lip lesion but dry lips - Neck Exam Neck exam: Positive for: Normal Inspection - Respiratory Exam Respiratory Exam: Clear to Auscultation Bilateral, Rales, Rhonchi, Wheezes. absent: Accessory Muscle Use, Respiratory Distress - Cardiovascular Exam Cardiovascular Exam: RRR, +S1, +S2. absent: Gallop, Rubs - GI/Abdominal Exam GI & Abdominal Exam: Normal Bowel Sounds, Soft. absent: Distended, Tenderness - Extremities Exam Extremities exam: Positive for: pedal edema (trace). Negative for: calf tenderness - Back Exam Back exam: absent: CVA tenderness (L), CVA tenderness (R), paraspinal tenderness - Neurological Exam Neurological exam: Alert, Oriented x3 - Psychiatric Exam Psychiatric exam: Normal Affect, Normal Mood - Skin Skin Exam: Dry, Warm Assessment and Plan - Assessment and Plan (Free Text) Assessment: 72 year old female with a PMH of stage IV small cell lung cancer recently started chemotherapy with carboplatin and etoposide who presented for some shortness of breath, congestion, and a period of altered sensorium, stabilized and now undergoing rehabilitation in the TCU. Plan: Deconditioning Xerosis cutis Vaginal discomfort possible yeast infection Multifocal pneumonia/HCAP - resolved Neutropenic sepsis - resolved Pancytopenia - improving Stage IV small cell lung cancer s/p XRT and chemotherapy w/ carboplatin and etoposide Herpetic mouth lesions - resolved Esophagitis/mucositis -improving Continue PT Continue all current medications Started vaseline ointment to lip Will start miconazole 2% vaginally given that she is on steroids and having discomfort No plan for radiation at this time, rad onc recs appreciated Continue medical optimization Encouraged PO intake Encouraged IS use Following closely Patient was seen and examined and case was discussed in detail with attending physician
[2017-06-23] MEDS: Morphine 15 mg Immediate Release Tab PO PRN (15:21)
--- NOTE | 2017-06-23 20:12 | PN ---
DATE: 06/23/2017 SUBJECTIVE: Patient is seen sitting in chair. She is awake. She is alert. She is comfortable. She does not appear to be in any kind of distress. PHYSICAL EXAMINATION: VITAL SIGNS: Blood pressure 120/63, heart rate 83, respiratory rate 20, temperature 97.3. HEENT: Normocephalic, atraumatic. NECK: Supple, no JVD. LUNGS: Bilateral equal air entry, no rales. CARDIAC: S1, S2. Regular rate and rhythm. No murmur, no rub. EXTREMITIES: No lower extremity edema. LABORATORY DATA: WBC 7, hemoglobin 8.6, hematocrit 26, platelets 158. Sodium 134, potassium 3.7, chloride 100, CO2 26, BUN 12, creatinine 0.4, glucose 185, calcium 8.6, AST 76, ALT 77. CURRENT MEDICATIONS: Mucomyst, Ambien, Carafate, Claritin, Decadron, DuoNeb, Famvir, insulin, iron 100 mg, Lidoderm, miconazole, morphine, NicoDerm patch, Pepcid, saliva, Singulair, Tylenol. ASSESSMENT: 1. Small cell cancer of the lung. 2. 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 3. Mild hypokalemia. 4. Resolved mucositis. 5. Resolving pancytopenia. 6. Non-insulin dependent diabetes mellitus. 7. Hypertension. PLAN: 1. Push p.o. intake. 2. Replace electrolytes as needed. 3. Pain management. 4. Physical therapy. Dana Hawkins MD
[2017-06-23] MEDS: Lidocaine 5% Patch TD SCH (21:19)
[2017-06-23] MEDS: DESVENLAFAXINE SUCCINATE 100 MG PO SCH (21:28)
[2017-06-24] MEDS: Albuterol-Ipratrop 3 mg / 0.5 (3 ml) UD IH SCH ×4 (02:00→20:23)
[2017-06-24] MEDS: Acetylcysteine 20% Inhal Soln (4ml) IH SCH ×4 (02:00→20:23)
--- NOTE | 2017-06-24 02:29 | PN ---
DATE: 06/23/2017 PULMONARY PROGRESS NOTE REFERRING PHYSICIAN: Dr. Yosef Reis. SUBJECTIVE: Patient is sitting in the reclining chair, having dinner. Night was unremarkable. Daughter is at bedside. Has some neck area some muscle discomfort. Her cough is better. Shortness of breath is better. No nausea, no vomiting. No diarrhea. No leg pain or leg swelling. OBJECTIVE: GENERAL: In no acute distress. VITAL SIGNS: Temperature is 98, heart is 92, respiratory rate is 18, blood pressure 123/59, pulse ox 95% on room air. HEENT: Moist mucous membrane. Crowded airway. NECK: Supple. No JVD. LUNGS: Has fair airflow with rhonchi. HEART: S1 and S2. ABDOMEN: Soft, nontender. No organomegaly. EXTREMITIES: No edema. NEUROLOGIC: Awake and alert, follows simple command. MEDICATIONS: She is on Mucomyst 20% inhaled q. 6 hours, Ambien 5 mg at bedtime p.r.n., Carafate 1 g twice a day, Claritin 10 mg daily, dexamethasone 0.5 mg daily, DuoNeb q. 6 hours, Famvir 500 mg q. 8 hours, insulin coverage, iron supplement daily, Lidoderm patch daily, MiraLax 30 mL q. 4 hours p.r.n., Magic solution to mouth q. 2 hours p.r.n., vaginal Monistat at bedtime, morphine extended release 15 mg q. 12 hours, morphine immediate release 15 mg q. 6 hours p.r.n., Nicoderm patch daily, nasal saline 2 sprays to each nostril daily, Pepcid 40 mg at bedtime, saliva substitute q. 2 hours p.r.n., Singulair 10 mg daily, Tylenol p.r.n., Vaseline ointment to affected area p.r.n., vitamin A and D at affected area, Xanax 0.5 mg twice a day, also Xanax 1 mg at bedtime, Zofran p.r.n. basis. LABORATORY DATA: Shows hemoglobin 8.6, hematocrit 26.0, WBC 7.3, platelet is 158. Sodium 134, potassium 3.7, chloride 100, bicarbonate 26, BUN 12, creatinine 0.4, glucose 185, calcium 8.6, AST 76, ALT 77, alk phos is 312. Albumin is 5.9. IMPRESSION AND PLAN: Metastatic lung cancer involving the bones, liver, especially the spine, requiring radiation therapy status post chemotherapy; oral ulcers are slowly improving; malnutrition; status post pneumonia. Activity of daily living dysfunction. Spoke to the patient's daughter at bedside. All the questions answered. Continue inhaled bronchodilator, pulmonary toilet, pain management. Encourage p.o. intake. Physical therapy. Gastric prophylaxis. Sequential compression devices to lower extremity. We will add deep venous thrombosis prophylaxis. Thank you and we will follow with you. Robert Eastman MD
[2017-06-24] MEDS: Sucralfate 1 gm/10 ml Oral Susp UD PO SCH ×2 (05:39→16:43)
[2017-06-24] MEDS: Vitamin A/D oint 60G TP SCH ×3 (05:40→21:49)
[2017-06-24] MEDS: Miconazole 2% Vaginal Cream(45 gm) VG SCH ×2 (05:40→21:47)
[2017-06-24 06:10] LABS: HEMOGLOBIN 8.5 g/dL (12.0-16.0); MEAN CELL VOLUME 90.7 fl (80.0-105.0); MEAN CORPUSCULAR HEMOGLOBIN 29.3 pg (25.0-35.0); MEAN CORPUSCULAR HGB CONC 32.3 g/dl (31.0-37.0); MEAN PLATELET VOLUME 10.3 fl (7.0-11.0); RBC 2.9 10^6/uL (3.5-6.1); RED CELL DISTRIBUTION WIDTH 16.7 % (11.5-14.5); WHITE BLOOD COUNT 7.1 10^3/ul (4.5-11.0)
[2017-06-24 06:34] LABS: ALT/SGPT 65 U/L (7-56); AST/SGOT 72 U/L (14-36); BLOOD UREA NITROGEN 13 mg/dL (7-21); CALCIUM 8.6 mg/dL (8.4-10.5); GFR AFRICAN-AMERICAN > 60; GFR NON-AFRICAN AMERICAN > 60
[2017-06-24] MEDS: Insulin Reg-MEDIUM-Coverage SC SCH ×4 (06:36→21:54)
[2017-06-24] MEDS: Petrolatum Oint Foilpak (5 gm) TOP PRN (08:22)
[2017-06-24] MEDS: Potassium Chloride 20 mEq ER Tab PO SCH ×2 (08:27→16:44)
[2017-06-24] MEDS: Enoxaparin 30 mg Syringe SC SCH (09:30)
[2017-06-24] MEDS: Morphine 15 mg SR Tab PO SCH ×2 (09:33→21:52)
[2017-06-24] MEDS: Morphine 15 mg Immediate Release Tab PO PRN ×2 (11:17→17:14)
--- NOTE | 2017-06-24 16:28 | RAD ---
PROCEDURE: Radiographs of the left humerus. HISTORY: pain in left humerus COMPARISON: None. FINDINGS: BONES: Normal. No fracture or focal lesion. SOFT TISSUES: Normal. OTHER FINDINGS: None. IMPRESSION: Normal radiographs of left humerus.
--- NOTE | 2017-06-24 16:29 | RAD ---
PROCEDURE: Radiographs of the Left Shoulder HISTORY: pain in left shoulder COMPARISON: No prior. FINDINGS: BONES: Normal. No fracture. JOINTS: Normal. Glenohumeral and acromioclavicular joints preserved. No osteoarthritis. SOFT TISSUES: Normal. OTHER FINDINGS: None. IMPRESSION: Normal radiographs of the left shoulder.
--- NOTE | 2017-06-24 18:22 | CP.PCM.PN ---
Subjective - Date & Time of Evaluation Date of Evaluation: 06/23/17 Time of Evaluation: 11:25 - Subjective Subjective: Complaining of pain on the left shoulder, no fevers, no diarrhea, no cough, no chest pain, no SOB. Objective - Vital Signs/Intake and Output Vital Signs (last 24 hours): Temp Pulse Resp BP Pulse Ox 97.3 F L 83 20 120/63 95 06/22/17 16:25 06/22/17 16:25 06/22/17 16:25 06/22/17 16:25 06/22/17 16:25 Intake and Output: 06/23/17 06/23/17 06:59 18:59 Intake Total 360 Output Total 275 Balance 85 - Medications Medications: Current Medications Acetaminophen (Tylenol 325mg Tab) 650 mg PO Q4H PRN; Protocol PRN Reason: pain 4-10 Acetylcysteine (Acetylcysteine 20%) 4 ml IH [id number] KIMMY PRN Reason: Protocol Last Admin: 06/23/17 07:18 Dose: Not Given Al Hydrox/Mg Hydrox/Simethicone (Maalox Plus 30 Ml) 30 ml PO Q4 PRN; Protocol PRN Reason: Indigestion / Heartburn Albuterol/Ipratropium (Duoneb 3 Mg/0.5 Mg (3 Ml) Ud) 3 ml IH [id number] KIMMY PRN Reason: Protocol Last Admin: 06/23/17 07:18 Dose: 3 ml Alprazolam (Xanax) 1 mg PO HS KIMMY PRN Reason: Protocol Last Admin: 06/22/17 22:22 Dose: 1 mg Alprazolam (Xanax) 0.5 mg PO BID [facility] Last Admin: 06/22/17 17:34 Dose: 0.5 mg Al Hydrox/Mg Hydrox/Simethicone 30 ml/Diphenhydramine HCl 75 mg/Lidocaine 30 ml 0 ml PO Q2H PRN; Protocol PRN Reason: Mouth/Throat Pain Dexamethasone (Decadron) 0.5 mg PO 0800 [facility] PRN Reason: Protocol Last Admin: 06/22/17 10:28 Dose: 0.5 mg Famciclovir (Famvir) 500 mg PO Q8 KIMMY PRN Reason: Protocol Last Admin: 06/23/17 06:36 Dose: 500 mg Famotidine (Pepcid) 40 mg PO HS KIMMY PRN Reason: Protocol Last Admin: 06/22/17 22:23 Dose: 40 mg Iron Sucrose 100 mg/ Sodium (Chloride) 105 mls @ 210 mls/hr IVPB 0600 KIMMY PRN Reason: Protocol Last Admin: 06/23/17 05:39 Dose: 210 mls/hr Insulin Human Regular (Humulin R Med) 0 units SC ACHS KIMMY PRN Reason: Protocol Last Admin: 06/23/17 06:38 Dose: 1 units Lidocaine (Lidoderm) 2 ea TD HS KIMMY PRN Reason: Protocol Last Admin: 06/22/17 22:24 Dose: 2 ea Loratadine (Claritin) 10 mg PO DAILY KIMMY PRN Reason: Protocol Last Admin: 06/22/17 10:27 Dose: 10 mg Montelukast Sodium (Singulair) 10 mg PO HS [facility] PRN Reason: Protocol Last Admin: 06/22/17 22:24 Dose: 10 mg Morphine Sulfate (Morphine Extended Release Tab) 15 mg PO Q12 [facility] PRN Reason: Protocol Last Admin: 06/22/17 22:20 Dose: 15 mg Morphine Sulfate (Morphine Immediate Release Tab) 15 mg PO Q6H PRN; Protocol PRN Reason: Pain, severe (8-10) Last Admin: 06/18/17 18:00 Dose: 15 mg Nicotine (Nicoderm Cq) 1 patch TD DAILY [facility] PRN Reason: Protocol Last Admin: 06/22/17 10:28 Dose: 1 patch Desvenlafaxine (Succinate 50 Mg) 50 mg PO BID [facility] Ondansetron HCl (Zofran Odt) 4 mg PO TID PRN; Protocol PRN Reason: Nausea/Vomiting Saliva Substitute (Saliva Substitute) 1 ml PO Q2 PRN; Protocol PRN Reason: Dry mouth Sodium Chloride ([place] Nasal [place]) 1 ml NS DAILY PRN PRN Reason: Nasal congestion Sucralfate (Carafate Oral Susp) 1 gm PO 0600,1600 [facility] PRN Reason: Protocol Last Admin: 06/23/17 05:39 Dose: 1 gm Vitamin A (Vitamin A&D) 1 applic TP Q8 [facility] Last Admin: 06/23/17 06:36 Dose: 1 applic Zolpidem Tartrate (Ambien) 5 mg PO HS PRN; Protocol PRN Reason: Insomnia - Labs Labs: 06/23/17 06:50 06/23/17 06:50 PT 13.6 SECONDS (9.4-12.5) H 06/20/17 06:30 INR 1.18 (0.93-1.08) H 06/20/17 06:30 - Constitutional Appears: Chronically Ill - Head Exam Head Exam: NORMAL INSPECTION - ENT Exam ENT Exam: Mucous Membranes Moist - Neck Exam Neck Exam: absent: Meningismus - Respiratory Exam Respiratory Exam: Decreased Breath Sounds - Cardiovascular Exam Cardiovascular Exam: +S1, +S2 - GI/Abdominal Exam GI & Abdominal Exam: Soft. 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
--- NOTE | 2017-06-24 18:44 | PN ---
DATE: 06/24/2017 SUBJECTIVE: The patient is seen sitting in chair. She is awake. She is alert. PHYSICAL EXAMINATION: GENERAL: Elderly lady sitting in chair. VITAL SIGNS: Blood pressure 110/65, heart rate 81, respiratory rate 18, temperature 97.6. HEENT: Normocephalic, atraumatic. NECK: Supple, no JVD. LUNGS: Bilateral equal air entry. CARDIAC: S1 and S2, regular rate and rhythm, no murmur, no rub. ABDOMEN: Distended, soft, nontender, bowel sounds present. EXTREMITIES: No lower extremity edema. LABORATORY DATA: WBC 7, hemoglobin 8.5, hematocrit 26, platelets 172. Sodium 135, potassium 3.3, chloride 100, CO2 29, BUN 13, creatinine 0.4, glucose 233, calcium 8.6, AST 72, ALT 65. CURRENT MEDICATIONS: Ambien, Carafate, Claritin, Decadron, Famvir, iron, Lovenox, Xanax, Zofran, potassium 40 mEq x2 doses to be given today. ASSESSMENT: 1. Mild hyponatremia. 2. Hypokalemia. 3. Status post mucositis. 4. Status post pancytopenia. 5. 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 PLAN: 1. Replace potassium. 2. Push p.o. intake. 3. Restrict p.o. free fluids. 4. Physical therapy. Dana Hawkins MD
[2017-06-24] MEDS: Lidocaine 5% Patch TD SCH (21:47)
[2017-06-24] MEDS: Nystatin 100,000 Units/ml Oral Susp 5 ml UD PO SCH (23:45)
--- NOTE | 2017-06-24 23:57 | PN ---
DATE: 06/24/2017 PULMONARY PROGRESS NOTE REFERRING PHYSICIAN: Yosef Reis MD SUBJECTIVE: Patient is sitting up in a chair this, just come back from x-ray. Night was unremarkable, feeling better. No cough. Shortness of breath is still there with exertion. Vomiting is better. No nausea, no vomiting. No diarrhea. No leg pain or leg swelling. OBJECTIVE: GENERAL: In no acute distress. VITAL SIGNS: Temperature is 98, heart rate 81, respiratory rate is 18, blood pressure 110/65, pulse ox 93% on room air. HEENT: Moist mucous membrane. Crowded airway. Mallampati score is IV. NECK: Supple. No JVD. LUNGS: Has fair airflow with rhonchi. HEART: S1 and S2. ABDOMEN: Soft, nontender. No organomegaly. EXTREMITIES: There is no edema. NEUROLOGIC: Awake and alert, follows simple command. MEDICATIONS: She is on Mucomyst 20% inhaled q. 6 hours, Ambien 5 mg at bedtime p.r.n., Carafate 1 g twice a day, Claritin 10 mg daily, Decadron 0.5 mg daily, DuoNeb q. 6 hours, Famvir 500 mg q. 8 hours, insulin coverage, iron IV, lidocaine patch at bedtime, Lovenox 30 mg subcu daily, getting simethicone 30 mL q. 4 hours p.r.n., Magic solution q. 2 hours to the mouth, getting miconazole nitrate vaginally at bedtime, morphine sulfate extended release 15 mg q. 12 hours, morphine immediate release mg q. 6 hours p.r.n., Nicoderm patch daily, nasal saline daily, Pepcid 40 mg daily, saliva substitute q. 2 hours p.r.n., Singulair 10 mg daily, Tylenol p.r.n. and Vaseline ointment to affected area daily, vitamin A and D q. 8 hours, Xanax 0.5 mg twice a day, Zofran p.r.n. basis. LABORATORY DATA: Shows hemoglobin 8.5, hematocrit 26.3, WBC 7.1, platelet is 172. Sodium 135, potassium 3.3, chloride 100, bicarbonate 29, BUN 13, creatinine 0.4, glucose 169, calcium is 8.6, AST 72, ALT 65, alk phos is 322. Albumin is 3.0. Has a shoulder and humerus x-ray done, which shows a normal radiography of left shoulder, also normal radiography of the humerus of the left shoulder. IMPRESSION AND PLAN: Metastatic lung cancer involving the bones, liver, especially spine, requiring radiation therapy, received one cycle of chemotherapy; malnutrition; status post pneumonia; increased liver function tests. We will discontinue Decadron. Follow blood pressure closely. Continue bronchodilator, incentive spirometer. Gastric prophylaxis, deep venous thrombosis prophylaxis. Fall precaution. Continue therapy. Thank you and we will follow with you. Robert Eastman MD
[2017-06-25] MEDS: Albuterol-Ipratrop 3 mg / 0.5 (3 ml) UD IH SCH ×4 (01:39→19:48)
[2017-06-25] MEDS: Acetylcysteine 20% Inhal Soln (4ml) IH SCH ×4 (01:39→19:48)
[2017-06-25] MEDS: DESVENLAFAXINE SUCCINATE 100 MG PO SCH ×2 (05:12→21:39)
[2017-06-25] MEDS: Sucralfate 1 gm/10 ml Oral Susp UD PO SCH ×2 (05:50→18:06)
--- NOTE | 2017-06-25 05:52 | PN ---
DATE: 06/24/2017 ONCOLOGY PROGRESS NOTE LOCATION: The patient is in room 303, bed 1. PROBLEMS: This is a 72-year-old white female who has recently received chemotherapy for extensive small cell carcinoma of the lung with carboplatin and etoposide, had resolving neutropenic sepsis, to cover from it on the acute side, treated with broad-spectrum antibiotics, accompanied with radiation to the thoracic spine for evolving cord compression. Currently in TCU, recovering for deconditioning and gait strengthening, gradually improving. The patient is seen currently in the rehab room where she is working out. The patient is sitting in chair, undergoing therapy with the therapist by her side and she is using modest amounts of bands and weights to strengthen and tone her muscles. The patient had been able to walk with assistance along with the therapist and she has been using a back brace and attempts are made for her to walk as best as is feasible. She is trying to get therapy at least twice a day, and I was informed this morning by the patient and later on by the social services designee that arrangements have been made for her to be transferred this weekend to a rehab nearby [place], which is close to her daughter's place where she can do more therapy over the next 2 weeks before plans for her next cycle of therapy. SUBJECTIVE: The patient tells me that she is still in significant pain, which has completely disappeared when she was just lying flat, may have been accentuated by the fact that she is now working out, moving her own. She is complaining of pain in the mid back, radiating down under her breast on the right side, pain scale of 4/8 and also pain in the shoulders, left greater than the right, especially when attempting to raise her arm. The patient has point tenderness over the left shoulder, which I believe could be muscular or tendon. 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 The patient denies any history of fevers or chills. No nausea or vomiting. Appetite is good. She has been eating better. Keeping the foods down. She asked me to liberalize her diet. PHYSICAL EXAMINATION: GENERAL: The patient is awake, alert and oriented. VITAL SIGNS: Stable. Blood pressure is 110/65, heart rate is 80, respirations 18, T-max of 98.4. HEENT: Head is normocephalic, atraumatic. Conjunctivae are clear. Sclerae are anicteric. Pupils are equally reactive to light and accommodation. Examination of the oropharynx reveals tongue to be moist. No sores are noted. NECK: Supple. There is no adenopathy. No jugular venous distention noted. LUNGS: Clear to percussion and auscultation. HEART: Examination of the heard revealed PMI to be in the fifth intercostal space, inside the midclavicular line. S1 and S2 are normal. No gallop or murmur is heard. ABDOMEN: Soft, protuberant, nontender. Liver and spleen are not palpable. No rebound, rigidity, guarding is noted. EXTREMITIES: There is no cyanosis, clubbing or edema. LABORATORY DATA: Reveals a white count of 7, hemoglobin 8.5, hematocrit 26, platelet count of 172,000. Sodium is 135, K is 3.3, chloride 100, CO2 of 29, BUN of 13, creatinine 0.4, glucose is 233, calcium 8.6, AST 72, ALT is 65. MEDICATIONS: Current medications are reviewed. They include Ambien, Carafate, Claritin, Decadron, Famvir, iron, Lovenox, Xanax, Zofran, potassium 2 doses given today. ASSESSMENT NOTES AND PLAN: Extensive small cell carcinoma, status post chemotherapy, status post neutropenic sepsis, status post radiation therapy, mild hyponatremia, hypokalemia, status post mucositis, extensive small cell carcinoma of the lung. Plans: Replace potassium, push p.o. intake, continue deconditioning physical therapy. The patient is on restriction of p.o. fluid for her sodium. Continue with physical therapy. We will try to liberalize her diet, so she can go to more dietary choices at this time. I spoke to her friend in great detail, spoke to the patient in great detail and spoke to the social services designee and the nurse taking care of the patient. The patient is going to get an x-ray of the shoulder and the left humerus today, and the plans will be in place for the patient to be transferred to the rehab on Tuesday. Routine post-exam instructions have been given to the patient. Time spent with the patient is greater than 45 minutes, correlating all the facts, discussing findings with the social services designee, talking to the family and talking to the nurses in charge of the patient. Rudy Puente MD
[2017-06-25] MEDS: Insulin Reg-MEDIUM-Coverage SC SCH ×4 (06:52→21:39)
[2017-06-25 07:13] LABS: BASO # 0.03 K/mm3 (0.0-2.0); BASO % 0.5 % (0.0-3.0); GRAN % 80.3 % (50.0-68.0); LYMPH # 0.8 (1.2-3.4); LYMPH % 12.8 % (22.0-35.0); MEAN CELL VOLUME 92.7 fl (80.0-105.0); MEAN CORPUSCULAR HEMOGLOBIN 29.3 pg (25.0-35.0); MEAN CORPUSCULAR HGB CONC 31.6 g/dl (31.0-37.0); MEAN PLATELET VOLUME 10.2 fl (7.0-11.0); MONO # 0.4 (0.1-0.6); MONO % 6.4 % (1.0-6.0); RBC 2.73 10^6/uL (3.5-6.1); RED CELL DISTRIBUTION WIDTH 17.5 % (11.5-14.5); WHITE BLOOD COUNT 6.2 10^3/ul (4.5-11.0)
[2017-06-25 07:42] LABS: ALT/SGPT 59 U/L (7-56); AST/SGOT 57 U/L (14-36); BLOOD UREA NITROGEN 13 mg/dL (7-21); CALCIUM 8.6 mg/dL (8.4-10.5); GFR AFRICAN-AMERICAN > 60; GFR NON-AFRICAN AMERICAN > 60; MAGNESIUM 2.1 mg/dL (1.7-2.2)
[2017-06-25] MEDS: Enoxaparin 30 mg Syringe SC SCH (09:03)
[2017-06-25] MEDS: Nystatin 100,000 Units/ml Oral Susp 5 ml UD PO SCH ×4 (09:04→21:37)
[2017-06-25] MEDS: Morphine 15 mg SR Tab PO SCH ×2 (09:07→21:35)
[2017-06-25] MEDS: Vitamin A/D oint 60G TP SCH ×2 (09:12→13:47)
[2017-06-25] MEDS ORDERED: Darbepoetin Alfa 100 mcg/ml Inj SC ONE (10:06)
--- NOTE | 2017-06-25 13:18 | PN ---
DATE: 06/25/2017 SUBJECTIVE: The patient is seen sitting in chair. She is groggy, but arousable. She is comfortable. PHYSICAL EXAMINATION: GENERAL: Elderly lady, sitting in chair. VITAL SIGNS: Blood pressure 138/74, heart rate 88, respiratory rate 20, and temperature 98.4. HEENT: Normocephalic, atraumatic. NECK: Supple, no JVD. LUNGS: Bilateral equal air entry, crackles right side. CARDIAC: S1 and S2, regular rate and rhythm, no murmur, no rub. ABDOMEN: Obese, distended, soft, nontender, bowel sounds present. EXTREMITIES: No lower extremity edema. LABORATORY DATA: WBC 6, hemoglobin 8, hematocrit 25, and platelets 189. Sodium 137, potassium 4.0, chloride 104, CO2 of 28. BUN 13, creatinine 0.5. Glucose 241. Calcium 8.6, phosphorus 2.6, magnesium 2.1. AST 57, ALT 59, and albumin 3.0. MEDICATIONS: List reviewed. ASSESSMENT/PLAN: 1. Mild hyponatremia. 2. Hypokalemia, resolved. 3. Small cell cancer of the lung, status post chemotherapy. 4. Resolved pancytopenia. 5. Resolved mucositis. 6. History of [id number] diabetes mellitus. 7. History of hypertension. PLAN: The patient is stable from the renal standpoint at this time. Her potassium is normal. Her sodium is only mildly low. Continue physical therapy. We will discontinue followup. Dana Hawkins MD
[2017-06-25] MEDS: Morphine 15 mg Immediate Release Tab PO PRN (13:47)
[2017-06-25] MEDS: Petrolatum Oint Foilpak (5 gm) TOP PRN (21:41)
[2017-06-25] MEDS: Miconazole 2% Vaginal Cream(45 gm) VG SCH (21:47)
[2017-06-25] MEDS: Lidocaine 5% Patch TD SCH (22:10)
--- NOTE | 2017-06-25 23:12 | PN ---
DATE: 06/25/2017 PULMONARY PROGRESS NOTE REFERRING PHYSICIAN: Dr. Puente. SUBJECTIVE: She is out of bed to chair, night was unremarkable. Participating in therapy. Still has some shoulder discomfort. No cough. No sputum production. Oral thrush is better. No nausea, no dysuria, leg pain, or leg swelling. OBJECTIVE: GENERAL: In no acute distress. VITAL SIGNS: Temperature is 98, heart rate is 87, respiratory rate is 20, blood pressure 119/65, pulse ox 96% on room air. HEENT: Moist mucous membrane. Has some thrush, but much improved than yesterday. LUNGS: Have fair airflow with rhonchi. HEART: S1 and S2. ABDOMEN: Soft, nontender. No organomegaly. EXTREMITIES: There is no edema. NEUROLOGIC: Awake, does follows simple command. MEDICATIONS: She is on Mucomyst 20% inhaled q. 6 hours; Ambien 5 mg at bedtime p.r.n.; Carafate 1 g twice a day; Claritin 10 mg daily; DuoNeb q.6 hours; Famvir 500 mg q. 8 hours; iron sucrose 100 mg daily; Lidoderm patch to affected area; Lovenox 30 mg subcu daily;, Magic solution to the mouth, swish and spit; morphine extended release 15 mg q. 12 hours; morphine immediate release 15 mg q.6 hours p.r.n. for pain.; Nicoderm patch daily; nystatin oral suspension 5 mL 4 times daily; nasal saline 1spray to each nostril daily; Pepcid 40 mg at bedtime; saliva substitute q. 2 hours p.r.n.; Singulair 10 mg daily; Tylenol p.r.n.; vitamin A and D ointment to affected area; Xanax 0.5 mg twice a day and also Xanax 1 mg at bedtime; Zofran p.r.n. basis. LABORATORY DATA: Shows hemoglobin 8.0, hematocrit 25.3, WBC 6.2, platelet is 189. Sodium 137, potassium 4.0, chloride 104, bicarbonate 28, BUN 13, creatinine 0.5, glucose 241, calcium 8.6, phosphorus 2.6, magnesium 2.1, AST 57, ALT 59, alk phos is 274. Albumin is 3.0. IMPRESSION AND PLAN: Metastatic lung cancer involving the bones, liver, spine, requiring radiation therapy, received chemotherapy; status post pneumonia. Pulmonary point of view, she is doing well. May continue Singulair 10 mg at bedtime, Zyrtec 10 mg at bedtime. May use Ventolin HFA 2 puffs q.4 hours p.r.n., nystatin oral swish another 4 days or so. Pain management. Gastric prophylaxis. Thank you and we will follow with you. Robert Eastman MD
--- NOTE | 2017-06-26 00:44 | PN ---
DATE: 06/25/2017 ONCOLOGY PROGRESS NOTE LOCATION: The patient is in room 303. SUBJECTIVE: The patient is seen sitting out of bed in the chair. She is comfortable, in no significant pain. Yesterday, noted pain in the left shoulder at the acromion level, appears to be a little bit better. The patient is waiting for the therapist to take her for physical therapy this morning. The patient said she had a restful night. No fevers. No chills. Eating a little bit better. Wanted me to liberalize her diet. PHYSICAL EXAMINATION: GENERAL: The patient is in no acute distress. VITAL SIGNS: Stable. Blood pressure is 138/74, heart rate is 88, respirations 20, T-max is 98.4. HEENT: Head is normocephalic, atraumatic. Conjunctivae pale. Sclerae are anicteric. Pupils are equally reactive to light and accommodation. Examination of the oropharynx reveals no lesions on the tongue. The patient is edentulous. NECK: Supple. There is no adenopathy. No jugular venous distention is noted. LUNGS: Relatively clear with crackles on the right side posteriorly. HEART: Examination of the heart revealed PMI to be in the fifth intercostal space, inside the midclavicular line. S1 and S2 are normal. No gallop or murmur is heard. ABDOMEN: Soft, protuberant, nontender. Liver and spleen not palpable. Previously noted pain in the right inframammary region, appears to be improved. MUSCULOSKELETAL: Left acromion pain and tenderness is still there, though less than yesterday, probably from doing exercise the patient was completely bed bound and she has been motivated to do exercises. The patient is doing workout, was trying to stand up and get into the wheelchair and go for therapy and participate in therapy in the rehab therapy unit. EXTREMITIES: Examination of the lower extremities, there is no significant lower extremity edema noted. NEUROLOGIC: Reveals no gross focal deficits. The patient does wear a back brace when she walks around. LABORATORY DATA: Reveals a white count of 6, hemoglobin 8, hematocrit 25, platelet count of 189,000. Sodium is 137, K is 4, chloride 104, CO2 of 28, BUN of 13, creatinine 0.5, glucose 241, calcium 8.6, phosphorus 2.6, magnesium 2.1. AST 57, ALT 59, albumin is 3. The patient's medications were reviewed and unchanged at this time. ASSESSMENT NOTES AND PLAN: The patient has extensive small cell carcinoma of the lung, status post chemotherapy, status post neutropenic fever and sepsis, fully recovered. Currently is anemic, probably as a resultant sequelae of the treatment, which is gradually improving. White count and platelet count have normalized. Mild hyponatremia, hypokalemia that is resolved. Resolved mucositis. [id number] diabetes mellitus, history of hypertension. The patient is stable from the Hematology/Oncology point of view at this time. Hemoglobin is low borderline. The patient is going to get another dose of Venofer today and probably another dose of Venofer prior to discharge tomorrow. The patient also is going to get a dose of Aranesp 100 mcg today. I have instructed the patient and told the patient that upon discharge, she will continue all the current medications that she is on. Copies of the medication list will be given to the patient along with the prescriptions, so when she goes to the rehab and gets admitted, we can continue the same. I am going to give them my contact number, so can talk to the admitting physician there regarding what needs to be done. The patient will be given a followup to see us once she goes to the rehab in about 2 weeks, then we can plan on administering treatments. Blood counts will and need to be monitored at least twice a week as an outpatient. The patient is cognizant of all these issues that are involved in the care. She is still not completely out of the severino as far as small cell lung cancer is concerned. She had extensive small cell cancer as evident in the form of liver metastasis, bone metastasis and an atypical lesion in the brain, which could not be further confirmed on the MRI. Continues to do well. Our plan would be to give her prophylactic percutaneous coronary intervention and probably targeted radiation to the lung, the right upper lobe, if she continues to respond elsewhere including the liver. Routine post-exam instructions have been given to the patient. Labs for a.m. at 6 have been requested. We will interact with the therapist to make sure that she is getting full use of the therapy while she is in the Transitional Care Unit. We will speak to the family as well. Time spent with the patient greater than 45 minutes on 2 separate visits to the patient's room. Rudy Puente MD [facility] # [id number]
[2017-06-26] MEDS: Albuterol-Ipratrop 3 mg / 0.5 (3 ml) UD IH SCH ×3 (03:00→13:51)
[2017-06-26] MEDS: Acetylcysteine 20% Inhal Soln (4ml) IH SCH ×3 (03:00→13:49)
[2017-06-26] MEDS: Sucralfate 1 gm/10 ml Oral Susp UD PO SCH (05:25)
[2017-06-26] MEDS: Vitamin A/D oint 60G TP SCH (05:27)
[2017-06-26 06:30] VITALS: BP 167/73; PULSE 80; RESP 17; TEMP 97.7; O2SAT 95
[2017-06-26] MEDS: Insulin Reg-MEDIUM-Coverage SC SCH (06:31)
[2017-06-26] MEDS: Morphine 15 mg SR Tab PO SCH (10:02)
[2017-06-26] MEDS: Nystatin 100,000 Units/ml Oral Susp 5 ml UD PO SCH (10:04)
[2017-06-26] MEDS: Enoxaparin 30 mg Syringe SC SCH (11:50)
[2017-06-26] MEDS: Morphine 15 mg Immediate Release Tab PO PRN (11:57)
--- NOTE | 2017-06-27 12:40 | DS ---
ONCOLOGY PROGRESS AND DISCHARGE NOTE LOCATION: The patient is in room 303, bed 1. The patient is being discharged today for further rehabilitation in a rehab unit down in [place], [place]. She is being discharged today for admission there. Patient will return to see us in about two weeks for further followup and continuation of a chemotherapy. SUBJECTIVE: Subjectively, patient is seen sitting out of bed in the chair, she is comfortable. She showed no significant pain. She was able to get up and walk for a few steps even though she is a little bit unsteady, but she was able to do it on her own. Pain in the left shoulder at the acromion level appears to be a little bit better. Patient had been walking with a therapist while they take her to physical therapy in the rehab room. She had a restful night. No fevers. No chills. Eating a little bit better and diet has been liberalized. PHYSICAL EXAMINATION GENERAL: The patient is in no acute distress. VITAL SIGNS: Stable as stated in the chart. Blood pressure is 138/72, heart rate is 88, respirations 20, T-max is 98.4. HEENT: Head is normocephalic, atraumatic. Conjunctivae are pale. Sclerae are anicteric. Pupils are equally reactive to light and accommodation. Examination of the oropharynx reveals no lesions of the tongue. Patient is edentulous. There is no evidence of any fungal infection. NECK: Supple. There is no adenopathy. No jugular venous distention noted. LUNGS: Relatively clear to percussion and auscultation with a few crackles on the right side posteriorly. HEART: Examination of the heart revealed PMI to be in the fifth intercostal space, inside the midclavicular line. S1 and S2 are normal. No gallop or murmurs heard. ABDOMEN: Protuberant, nontender. Liver and spleen not palpable. No rebound, rigidity, or guarding is noted. EXTREMITIES: Reveal no cyanosis, clubbing or edema. MUSCULOSKELETAL: Left acromion pain and tenderness, has improved though still there. May have been aggravated when she was doing the exercises. I told the patient to use the back brace at all times and she is up and around doing her exercises. GENITOURINARY: Deferred. RECTAL: Deferred. NEUROLOGIC: Higher functions are normal. No focal deficits are noted. LYMPHATICS: There is no evidence of adenopathy in the neck, axilla or groin. LABORATORY DATA: From yesterday reveals white count of 6, hemoglobin 8, hematocrit 25, platelet count of 189,000. Potassium is 4, sodium is 137, chloride 104, CO2 of 28, BUN of 13, creatinine of 0.5, glucose of 241, calcium of 8.6, phosphorus of 2.6, magnesium of 2.1. AST of 57, ALT of 59, albumin is 3. MEDICATIONS: Patient's medications were reviewed and are unchanged. 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 Currently is anemic; probably as a resultant sequelae of the treatment, it is gradually improving. White count and platelet counts have normalized. Patient has mild hyponatremia and mild hypokalemia, that is resolving. Mucositis is resolved. Patient has [id number] diabetes mellitus, history of hypertension. Patient is stable from the Hematology/Oncology point of view at this time, hemoglobin is low or borderline. Patient is going to get another dose of Venofer today. Patient got Aranesp and Venofer yesterday. I have instructed the patient and told the nurses that upon discharge, she will continue all the current medicines she is on. Copies of the medication list have been given to the patient, so that when she goes to the rehab and gets admitted, we can continue the same medicine. I am also going to give them my contact number, we can talk to the admitting physician there regarding what needs to be done. Patient will be given a followup to see us once she goes to the rehab in about two weeks and then, we can plan on administering further treatment. Blood counts will and need to be monitored at least twice a week as an outpatient. Patient is cognizant of all these issues that are involved in the care. She is still not completely out of the severino as far as small cell lung carcinoma is concerned . Extensive small cell cancer is evident in the form of liver metastasis, bone metastasis and atypical lesion in the brain, which could not be further confirmed on MRI. Continues to do well. Our plan is to give a prophylactic cranial irradiation and probably, the radiation to the lung once she continues to respond to systemic chemotherapy, specifically in the liver. Routine post-exam instructions have been given to the patient. Labs will be tested again once she goes to the center in [place], [place]. We will interact with the therapist to make sure she is getting full use of the therapy while she is in the rehab. We will speak to the family as well. Spent more than an hour by going over all the medicines of the patient in addition to two separate visits to the patient's room. Patient's medications were copied and given to her and prescriptions for the following medicines were given. Patient has scripts given for Ambien, Ventolin HFA, sucralfate, nystatin, morphine sulfate immediate release 15 mg tablet, morphine sulfate extended release 15 mg tablet, Pristiq 100 mg tablet, Zofran 4 mg tablet ODT, famciclovir 500 mg tablet, famotidine 40 mg tablet, Lidoderm 5% gel to use as directed, Xanax 0.5 mg twice a day and then one at bedtime, NicoDerm 21 mg a day patches, Lovenox 30 mg subcutaneous daily while in the rehab. Condition on discharge is fair. Overall prognosis is guarded. DISCHARGE DIAGNOSES: Deconditioning, status post chemotherapy for extensive small cell lung carcinoma with documented liver, lung, and bone metastases; possible atypical lesion in the brain, needs to be confirmed down the road what it could be by repeating scans. Patient is due for additional chemotherapy down the road in about two weeks. Patient also needs to continue her bisphosphonates for the bone metastasis. Routine post-exam instructions have been given to the patient. NOTE: Please make a note that this is a medically necessary visit for this patient; correlating, documenting and conveying all that needs to be done for the patient took me more than an hour and 20 minutes. Please make a note of that from the chart. Rudy Puente MD
== END 2017-06-26 14:11 | disposition home or self-care (01) | DRG 180 ==
LOC: TRCU 14:18
PROVIDERS: ADMIT Family Medicine; ATTEND Family Medicine
PROC: 3E0336Z Introduction of Nutritional Substance into Peripheral Vein, Percutaneous Approach (ICD-10-PCS; 2017-06-18)
PROC: F07Z9FZ Gait Training/Functional Ambulation Treatment using Assistive, Adaptive, Supportive or Protective Equipment (ICD-10-PCS; principal; 2017-06-20)
PROC: F07Z5FZ Bed Mobility Treatment using Assistive, Adaptive, Supportive or Protective Equipment (ICD-10-PCS; 2017-06-20)
PROC: F07Z8FZ Transfer Training Treatment using Assistive, Adaptive, Supportive or Protective Equipment (ICD-10-PCS; 2017-06-20)
PROC: F07L6ZZ Therapeutic Exercise Treatment of Musculoskeletal System - Lower Back / Lower Extremity (ICD-10-PCS; 2017-06-20)
PROC: F08Z1FZ Dressing Techniques Treatment using Assistive, Adaptive, Supportive or Protective Equipment (ICD-10-PCS; 2017-06-21)
PROC: F08Z0FZ Bathing/Showering Techniques Treatment using Assistive, Adaptive, Supportive or Protective Equipment (ICD-10-PCS; 2017-06-22)
DX: C34.90 Malignant neoplasm of unspecified part of unspecified bronchus or lung (principal); J18.9 Pneumonia, unspecified organism; C79.51 Secondary malignant neoplasm of bone; C78.7 Secondary malignant neoplasm of liver and intrahepatic bile duct; D61.818 Other pancytopenia; E46 Unspecified protein-calorie malnutrition; E22.2 Syndrome of inappropriate secretion of antidiuretic hormone; B37.0 Candidal stomatitis; J44.0 Chronic obstructive pulmonary disease with (acute) lower respiratory infection; R13.12 Dysphagia, oropharyngeal phase; E11.42 Type 2 diabetes mellitus with diabetic polyneuropathy; D70.3 Neutropenia due to infection; M17.0 Bilateral primary osteoarthritis of knee; I10 Essential (primary) hypertension; G89.3 Neoplasm related pain (acute) (chronic); E87.6 Hypokalemia; K12.30 Oral mucositis (ulcerative), unspecified; K20.9 Esophagitis, unspecified; K12.1 Other forms of stomatitis; T45.1X5A Adverse effect of antineoplastic and immunosuppressive drugs, initial encounter; L85.3 Xerosis cutis; F32.9 Major depressive disorder, single episode, unspecified; F41.9 Anxiety disorder, unspecified; G93.9 Disorder of brain, unspecified; E66.9 Obesity, unspecified; Z68.30 Body mass index [BMI] 30.0-30.9, adult; Z88.2 Allergy status to sulfonamides; Z79.4 Long term (current) use of insulin; Z87.891 Personal history of nicotine dependence

== ENCOUNTER 2017-07-11 18:05 | Inpatient (IN) | payer MEDICARE, OTHER ==
[2017-07-11 18:07] VITALS: BMI 33.5
--- NOTE | 2017-07-11 19:08 | ED PDOC ---
Arrival/HPI - General Chief Complaint: Weakness/Neurological Deficit Time Seen by Provider: 07/11/17 18:27 Historian: Patient - History of Present Illness Narrative History of Present Illness (Text): 07/11/17 18:30 Maria Elena Ye is a 72 year old female, whose past medical history includes small cell carcinoma with lungs, liver, and bone metastasis, who presents to the emergency department complaining of general weakness and lower back pain for a few hours. Patient indicates that she has an infection to her sacrum. Patient denies any fever, shortness of breath, or any other complaints at this time. PMD: Dr. Puente Time/Duration: 24 hours Symptom Onset: Gradual Symptom Course: Unchanged Activities at Onset: Light Context: Home Past Medical History - Provider Review Nursing Documentation Reviewed: Yes - Infectious Disease Hx of Infectious Diseases: None - Cardiac Hx Hypertension: Yes - Pulmonary Hx Respiratory Disorders: No - Neurological Hx Neurological Disorder: No - HEENT Hx HEENT Disorder: No - Renal Hx Renal Disorder: No - Endocrine/Metabolic Hx Diabetes Mellitus Type 1: Yes - Hematological/Oncological Hx Blood Transfusions: No - Integumentary Hx Dermatological Disorder: No - Musculoskeletal/Rheumatological Hx Arthritis: Yes - Gastrointestinal Hx Gastrointestinal Disorders: (esophageal ulcers) - Genitourinary/Gynecological Hx Genitourinary Disorders: (external catheter) Hx Reproductive Disorders: No - Psychiatric Hx Psychophysiologic Disorder: Yes Hx Anxiety: Yes Hx Depression: Yes Hx Substance Use: No - Surgical History Hx Orthopedic Surgery: Yes (R KNEE) - Anesthesia Hx Anesthesia Reactions: No Hx Malignant Hyperthermia: No Family/Social History - Physician Review Nursing Documentation Reviewed: Yes Family/Social History: No Known Family HX Smoking Status: Former Smoker Hx Alcohol Use: No Hx Substance Use: No Allergies/Home Meds Allergies/Adverse Reactions: Allergies Sulfa (Sulfonamide Antibiotics) Allergy (Verified 07/11/17 23:19) ANAPHYLAXIS Home Medications: Home Meds Medication Instructions Recorded Confirmed ALPRAZolam [Xanax] 1 mg PO HS 06/06/17 07/11/17 Acetaminophen [Tylenol 325mg tab] 325 mg PO Q6H PRN 07/11/17 07/11/17 Acetaminophen [Tylenol 325mg tab] 650 mg PO Q6H PRN 07/11/17 07/11/17 Bisacodyl [Ducolax] 10 mg RC Q72H 07/11/17 07/11/17 Collagenase [Santyl] 30 gm TOP DAILY 07/11/17 07/12/17 Desvenlafaxine [Khedezla] 100 mg PO DAILY 07/11/17 07/11/17 Insulin Human Regular [HumuLIN R] units SQ ACHS 07/11/17 07/11/17 Lidoderm Patch Removal 1 unit DAILY 07/11/17 07/11/17 Magnesium Hydroxide [Milk of 15 ml PO DAILY 07/11/17 07/11/17 Magnesia] Potassium Chloride [K-Tab ER] 20 meq PO DAILY 07/11/17 07/11/17 Sod Phos,M-B/Na Phos,Di-Ba [Fleet 133 ml AK Q72H 07/11/17 07/11/17 Enema] Review of Systems - Physician Review All systems were reviewed & negative as marked: Yes - Review of Systems Constitutional: Other (General weakness) Eyes: absent: Vision Changes ENT: absent: Hearing Changes Respiratory: absent: SOB, Cough Cardiovascular: absent: Chest Pain Gastrointestinal: absent: Abdominal Pain Genitourinary Female: absent: Dysuria Musculoskeletal: Back Pain (Lower back pain) Skin: absent: Rash, Pruritis Neurological: absent: Headache, Dizziness Endocrine: absent: Diaphoresis Hemo/Lymphatic: absent: Adenopathy Psychiatric: absent: Anxiety, Depression Physical Exam Vital Signs Reviewed: Yes Vital Signs Temp Pulse Resp BP Pulse Ox 07/11/17 18:38 18 96 07/11/17 18:18 97.8 F 86 18 153/85 H 91 L Temperature: Afebrile Blood Pressure: Hypertensive Pulse: Regular Mental Status: Positive for: Alert and Oriented X 3 - Systems Exam Head: Present: Atraumatic, Normocephalic Pupils: Present: PERRL Extroacular Muscles: Present: EOMI Conjunctiva: Present: Normal Mouth: Present: Moist Mucous Membranes Neck: Present: Normal Range of Motion Respiratory/Chest: Present: Rhonchi (Scattered) Cardiovascular: Present: Regular Rate and Rhythm, Normal S1, S2. No: Murmurs Abdomen: Present: Normal Bowel Sounds. No: Tenderness, Distention, Peritoneal Signs Back: Present: Other (Sacral ulcer with surrounding redness and warmth - See nurse's documatentation) Upper Extremity: Present: Normal Inspection. No: Cyanosis, Edema Lower Extremity: Present: Edema (Bilateral Trace edema) Neurological: Present: GCS=15, CN II-XII Intact, Speech Normal Skin: Present: Warm, Dry, Normal Color. No: Rashes Psychiatric: Present: Alert, Oriented x 3, Normal Insight, Normal Concentration Medical Decision Making ED Course and Treatment: 07/11/17 19:22 Impression: 72 year old female complaining of general weakness and lower back pain for a few hours. Differential Diagnosis included but are not limited to: Generalized weakness post chemotherapy, dehydration, failure to thrive, infected ulcer sacral cellulitis vs. candidiasis Plan: -- EKG -- Chest X-ray -- VBG -- Urinalysis -- Labs -- Morphine and IV fluids -- Reassess and disposition Prior Visits: Notes and results from previous visits were reviewed. Patient was last seen in the emergency department on 06/07/17 sent by oncologist for evaluation of congestion. Patient was admitted to hospitalist care for further evaluation. Progress Notes: EKG: Ordered, reviewed, and independently interpreted the EKG. Rate : 79 BPM Rhythm : Sinus arrhythmia Interpretation : LVH. T wave inversion in lead 3 and AVF Comparison : No change from 06/07/17 CXR = ? right infiltrate. Covering with Cefepime and Vancomycin for cellulitis and PNA. Patient comfortable in her bed and back pain controlled. Labs reviewed. Patient covered with broad spectrum antibiotics. Case was discussed with Dr. Puente who will admit under Dr. Yosef Reis's service. - Lab Interpretations I have reviewed the lab results: Yes - Medication Orders Current Medication Orders: Acetaminophen (Tylenol 325mg Tab) 650 mg PO Q6H PRN PRN Reason: general discomfort Alprazolam (Xanax) 0.25 mg PO BID [facility] Last Admin: 07/12/17 10:02 Dose: 0.25 mg Behavioural Document 07/12/17 10:02 (Rec: 07/12/17 10:02 DOUGLAS) Maintenance Maintenance Dose Yes Bisacodyl (Dulcolax) 5 mg PO DAILY PRN PRN Reason: Constipation Enoxaparin Sodium (Lovenox) 30 mg SC DAILY [facility] PRN Reason: Protocol Last Admin: 07/12/17 10:02 Dose: 30 mg Subcutaneous Administrations Document 07/12/17 10:02 (Rec: 07/12/17 10:02 [facility]) Injection Site MAR Injection Site Right Abdomen Charges for Administration # of Subcutaneous Administrations 1 Famciclovir (Famvir) 500 mg PO BID [facility] PRN Reason: Protocol Last Admin: 07/12/17 10:18 Dose: 500 mg Famotidine (Pepcid) 40 mg PO HS [facility] Sodium Chloride (Sodium Chloride 0.9%) 1,000 mls @ 150 mls/hr IV .Q6H40M [facility] Last Admin: 07/12/17 10:04 Dose: 150 mls/hr eMAR Start Stop Document 07/12/17 10:04 (Rec: 07/12/17 10:04 [facility]) Intravenous Solution Start Date 07/12/17 Start Time 10:04 Insulin Human Regular (Humulin R Med) 0 units SC ACHS [facility] PRN Reason: Protocol Ketoconazole (Nizoral) 0 gm TOP BID KIMMY Lidocaine (Lidoderm) 2 ea TD HS [facility] Loratadine (Claritin) 10 mg PO DAILY [facility] Last Admin: 07/12/17 10:01 Dose: 10 mg Magnesium Hydroxide (Milk Of Magnesia) 15 ml PO DAILY PRN PRN Reason: Indigestion / Heartburn Montelukast Sodium (Singulair) 10 mg PO HS [facility] Morphine Sulfate (Morphine Extended Release Tab) 15 mg PO Q12 [facility] Last Admin: 07/12/17 10:17 Dose: 15 mg DIANE Pain Assessment Document 07/12/17 10:17 (Rec: 07/12/17 10:18 [facility]) Pain Reassessment Is this a pain reassessment? No Presence of Pain Presence of Pain Yes Pain Scale Used Pain Scale Used Numeric Location Left, Right or Bilateral Right Upper or Lower Lower Pain Location Body Site Back Morphine Sulfate (Morphine) 2 mg IVP Q4H PRN PRN Reason: Pain, severe (8-10) Last Admin: 07/12/17 10:00 Dose: 2 mg DIANE Pain Assessment Document 07/12/17 10:00 (Rec: 07/12/17 10:01 [facility]) Pain Reassessment Is this a pain reassessment? No Presence of Pain Presence of Pain Yes Pain Scale Used Pain Scale Used Numeric Location Left, Right or Bilateral Right Upper or Lower Lower Pain Location Body Site Back Description Description Constant Intensity of Pain at present 9 IVP Administration Document 07/12/17 10:00 (Rec: 07/12/17 10:01 DOUGLAS) Charges for Administration # of IVP Administrations 1 Morphine Sulfate (Morphine Immediate Release Tab) 15 mg PO Q6H PRN PRN Reason: Pain, moderate (4-7) Nicotine (Nicoderm Cq) 1 patch TD DAILY KIMMY Last Admin: 07/12/17 10:02 Dose: 1 patch MAR Transdermal Patch Site Document 07/12/17 10:02 (Rec: 07/12/17 10:02 [id number]) Transdermal Patch Site Transdermal Patch Site Right Outer Upper Arm Nystatin (Nystatin Oral Susp) 5 ml PO QID KIMMY Last Admin: 07/12/17 10:01 Dose: 5 ml Ondansetron HCl (Zofran Inj) 4 mg IVP Q4H PRN PRN Reason: Nausea/Vomiting Sucralfate (Carafate Oral Susp) 1 gm PO 0600,1600 KIMMY Last Admin: 07/12/17 05:59 Dose: 1 gm Zolpidem Tartrate (Ambien) 5 mg PO HS KIMMY PRN Reason: Protocol Discontinued Medications Cefepime HCl (Maxipime 2gm) 2 gm in 100 mls @ 100 mls/hr IVPB STAT STA PRN Reason: Protocol Stop: 07/11/17 21:42 Last Admin: 07/11/17 22:17 Dose: 100 mls/hr eMAR Start Stop Document 07/11/17 22:17 LA (Rec: 07/11/17 22:18 LA [id number]) Intravenous Solution Start Date 07/11/17 Start Time 22:17 Vancomycin HCl (Vancomycin 1gm) 1 gm in 250 mls @ 167 mls/hr IVPB STAT STA PRN Reason: Protocol Stop: 07/11/17 22:12 Morphine Sulfate (Morphine) 4 mg IVP STAT STA Stop: 07/11/17 19:15 Last Admin: 07/11/17 20:01 Dose: 4 mg MAR Pain Assessment Document 07/11/17 20:01 LA (Rec: 07/11/17 20:03 LA [id number]) Pain Reassessment Is this a pain reassessment? No Sleep Is patient sleeping during reassessment? No Presence of Pain Presence of Pain Yes Pain Scale Used Pain Scale Used Numeric Location Left, Right or Bilateral Right Pain Location Body Site Back Description Intensity of Pain at present 7 IVP Administration Document 07/11/17 20:01 MALIKA (Rec: 07/11/17 20:03 MALIKA [id number]) Charges for Administration # of IVP Administrations 1 Morphine Sulfate (Morphine Immediate Release Tab) 15 mg PO Q6H PRN PRN Reason: Pain, severe (8-10) Pneumococcal Polyvalent Vaccine (Pneumovax 23 Vaccine) 0.5 ml IM .ONCE ONE Stop: 07/12/17 00:35 - Scribe Statement The provider has reviewed the documentation as recorded by the Taurusibe Celsa Ahn Provider Scribe Attestation: All medical record entries made by the Scribe were at my direction and personally dictated by me. I have reviewed the chart and agree that the record accurately reflects my personal performance of the history, physical exam, medical decision making, and the department course for this patient. I have also personally directed, reviewed, and agree with the discharge instructions and disposition. Disposition/Present on Arrival - Present on Arrival Any Indicators Present on Arrival: Yes History of DVT/PE: No History of Uncontrolled Diabetes: No Urinary Catheter: Yes (external catheter) History of Decub. Ulcer: No History Surgical Site Infection Following: None - Disposition Have Diagnosis and Disposition been Completed?: Yes Diagnosis: Small cell carcinoma, FTT (failure to thrive) in adult, Dehydration, Cellulitis Disposition: HOSPITALIZED Disposition Time: 18:41 Patient Plan: Admission Condition: [facility]
[2017-07-11] MEDS ORDERED: Morphine 4 mg/ml ISec IVP STA (19:14)
[2017-07-11] MEDS: Sodium Chloride 0.9% 1,000 ML IV SCH (19:52)
[2017-07-11 20:09] LABS: VENOUS BLOOD GAS BASE EXCESS 1.7 mmol/L (0.0-2.0); VENOUS BLOOD GAS PO2 103 mm/Hg (30-55); VENOUS BLOOD PH 7.37 (7.32-7.43)
[2017-07-11 20:16] LABS: BASO # 0.01 K/mm3 (0.0-2.0); BASO % 0.2 % (0.0-3.0); GRAN # 5.1 (1.4-6.5); GRAN % 87.9 % (50.0-68.0); HEMOGLOBIN 9.3 g/dL (12.0-16.0); LYMPH # 0.5 (1.2-3.4); MEAN CELL VOLUME 96.5 fl (80.0-105.0); MEAN CORPUSCULAR HEMOGLOBIN 29.2 pg (25.0-35.0); MEAN CORPUSCULAR HGB CONC 30.3 g/dl (31.0-37.0); MEAN PLATELET VOLUME 9.7 fl (7.0-11.0); MONO # 0.2 (0.1-0.6); MONO % 2.9 % (1.0-6.0); RBC 3.18 10^6/uL (3.5-6.1); RED CELL DISTRIBUTION WIDTH 20.9 % (11.5-14.5); WHITE BLOOD COUNT 5.8 10^3/ul (4.5-11.0)
[2017-07-11 20:20] LABS: ALB/GLOB RATIO 0.9 (1.1-1.8); ALT/SGPT 72 U/L (7-56); AST/SGOT 140 U/L (14-36); BLOOD UREA NITROGEN 11 mg/dL (7-21); CALCIUM 8.6 mg/dL (8.4-10.5); GFR AFRICAN-AMERICAN > 60; GFR NON-AFRICAN AMERICAN > 60
[2017-07-11 20:28] LABS: INR 1.22 (0.93-1.08); PARTIAL THROMBOPLASTIN TIME 24.8 Seconds (25.1-36.5)
[2017-07-11] MEDS ORDERED: Vancomycin 1gm in NS 250ml 1 GM/250 ML BAG IVPB STA (20:43)
[2017-07-11] MEDS ORDERED: Cefepime IV 2 gm in NS 2 GM/100 ML BAG IVPB STA (20:43)
[2017-07-11 23:01] LABS: URINE BILIRUBIN NEGATIVE (NEGATIVE); URINE BLOOD NEGATIVE (NEGATIVE); URINE GLUCOSE (UA) >=1000 mg/dL (NEGATIVE); URINE LEUKOCYTE ESTERASE NEGATIVE Leu/uL (NEGATIVE); URINE PROTEIN NEGATIVE mg/dL (<30 mg/dL)
[2017-07-11 23:04] LABS: URINE APPEARANCE CLEAR (CLEAR); URINE COLOR YELLOW (YELLOW)
[2017-07-11] MEDS ORDERED: Morphine 15 mg Immediate Release Tab PO PRN (23:36)
[2017-07-12] MEDS ORDERED: Magnesium Hydroxide Susp 30 ml UD PO PRN (00:05)
[2017-07-12] MEDS ORDERED: Influenza Vaccine 60 mcg/0.5 mL SYR (4YR UP) IM ONE (00:34)
[2017-07-12] MEDS ORDERED: Pneumococcal 23-Valent Vaccine IM ONE (00:34)
[2017-07-12] MEDS: Sucralfate 1 gm/10 ml Oral Susp UD PO SCH ×2 (05:59→14:59)
[2017-07-12 06:35] LABS: HEMOGLOBIN 8.4 g/dL (12.0-16.0); MEAN CELL VOLUME 96.2 fl (80.0-105.0); MEAN CORPUSCULAR HEMOGLOBIN 29.3 pg (25.0-35.0); MEAN CORPUSCULAR HGB CONC 30.4 g/dl (31.0-37.0); MEAN PLATELET VOLUME 9.4 fl (7.0-11.0); RBC 2.87 10^6/uL (3.5-6.1); RED CELL DISTRIBUTION WIDTH 20.4 % (11.5-14.5); WHITE BLOOD COUNT 4.5 10^3/ul (4.5-11.0)
[2017-07-12 06:49] LABS: ALB/GLOB RATIO 0.9 (1.1-1.8); ALBUMIN 2.6 g/dL (3.0-4.8); ALT/SGPT 73 U/L (7-56); AST/SGOT 118 U/L (14-36); BLOOD UREA NITROGEN 13 mg/dL (7-21); CALCIUM 8.1 mg/dL (8.4-10.5); GFR AFRICAN-AMERICAN > 60; GFR NON-AFRICAN AMERICAN > 60
--- NOTE | 2017-07-12 07:35 | HP ---
The patient is in the ER, being admitted to room 360. HISTORY OF PRESENT ILLNESS: This is a 72-year-old female, well known to me, with a diagnosis of extensive small cell lung carcinoma, currently post palliative radiation to the thoracic spine, status post 1 cycle of systemic chemotherapy that was given as truncated form with only 2 days of treatment with carboplatin and etoposide, and then admitted to the hospital for rapidly evolving pancytopenia, sepsis, neutropenic fever. Recovered from all of it, and finally was discharged to rehab; was in rehab for about 2 weeks and she was overdue for her medications, and she is now readmitted to her outpatient oncologic clinic where she was examined. The patient looked much worse than when she had been discharged from the hospital from the last admission. Especially over the last several days in the rehab, she was not moving around, and the patient was noted in the clinic to have decubitus ulcer along with sacral rash, probably related to candidiasis. The patient was complaining of profound weakness, decreased appetite, increasing pain in the mid back area radiating anteriorly, sometimes on a pain scale of 0/10 at least 7 or 8. The patient also was complaining that she was more weak now than before, and she did not like the food in the rehab and her supplements as far as food was concerned, was just taking Glucerna and Premier protein shakes that her family used to bring with her. The patient denies any fever, shortness of breath or chills at this point in time. She does have urinary incontinence and she tells me that she was constipated requiring assistance with her bowel movements once every few days. The patient's telling me that it requires at least 2 people to help her assist to get out of bed into the chair or even stand up. It does not appear to me that she has been progressing well on therapy while in the rehab. REVIEW OF SYSTEMS: Twelve-system review of systems was done, which were all negative except what is marked in the HPI. SOCIAL HISTORY: The patient is a former smoker, but has new Nicoderm patches while in the hospital and while in the rehab. The patient has no history of any alcohol or drug abuse. ALLERGIES: TO SULFONAMIDE, WHICH HAS BEEN VERIFIED. MEDICATIONS: The patient's medications in the residential included Xanax p.r.n., Tylenol p.r.n., Dulcolax 10 mg rectal suppositories as needed. She was on Humulin insulin coverage low-dose algorithm. She was on lidocaine patches for the back. She was getting milk of magnesia p.r.n. In addition to that, the medications from the residential rehab included sucralfate 1 g b.i.d, Maalox 30 mL p.o. q. 2 hours p.r.n., Ventolin HFA 2 puffs inhalation q. 4 hours p.r.n., Xanax 0.5 mg b.i.d., Xanax 1 mg at bedtime. She was on desvenlafaxine succinate 100 mg q. 12 hours. She was on Lovenox 30 mg subcu daily, lidocaine patches 2 patches to the back on a daily basis, Pepcid 40 mg daily, Claritin 10 mg daily, MSIR q. 6 hours p.r.n., morphine sulfate extended release 15 mg q. 12 hours, Singulair 10 mg p.o. at bedtime, nicotine patch 21 mg q. 24 hours. She was on nystatin oral suspension 5 mL four times daily, Zofran ODT 4 mg IV q. 8 hours p.r.n., Ambien 5 mg p.o. at bedtime, Fleet Enema p.r.n., insulin coverage low-dose algorithm and she has sacral decubitus for that she was using collagenase patches. PHYSICAL EXAMINATION: GENERAL: The patient is awake, alert, oriented. Temporal muscle wasting is noted. VITAL SIGNS: T-max is 98.4, pulse is 86, respirations 18, blood pressure is 153/85, pulse ox 96% on room air. HEENT: Head is normocephalic, atraumatic. Conjunctivae are pale. Sclerae is anicteric. Pupils are equally reactive to light and accommodation. Conjunctivae pale. Examination of mouth reveals the patient to be edentulous. No ulcerations are noted. Tongue s sore, coated and dry. NECK: Supple. There is no adenopathy. LUNGS: Revealed scattered wheeze. CARDIOVASCULAR: Reveals PMI within the fifth intercostal space inside the midclavicular line. S1 and S2 are normal. No gallop or murmur is heard. ABDOMEN: Soft, nontender. Mildly protuberant. Liver and spleen are not palpable. BACK: Reveals sacral decubitus and around the sacral decubitus site, extending into both the buttocks, has raised erythematous areas in the skin consistent with candidiasis. Examination of the back reveals significant tenderness over the mid thoracic spine extending laterally on the right side posteriorly across the chest wall under the breast into the inframammary region on the right side related to a previously documented . EXTREMITIES: Examination of the upper extremities reveals no cyanosis, clubbing, edema. Examination of lower extremities, the patient has bilateral trace edema. PSYCHIATRIC: The patient is awake, alert and oriented. NEUROLOGIC: The patient is able to move all 4 extremities. The patient has grade 4/5 weakness in both lower extremities. The patient is able to extend, bend her knees and then push against resistance, both lower extremities, left lower extremity slightly weaker than the right. No gross focal deficits are noted. The patient denies any bowel incontinence, though she has incontinence of urine at times. ASSESSMENT NOTES AND PLAN: The patient has diagnosis of extensive small cell lung cancer, currently with generalized weakness post therapy, dehydration, failure to thrive, infected sacral decubitus with local candidiasis. Plan, the patient is going to be admitted for continuation of IV hydration. The patient is post chemotherapy. We will continue Neupogen 24 hours post chemotherapy, which was given in the Oncology Clinic. While in the hospital, we are going to get neurologic evaluation to check the status of her cord compression for which she received radiation and 1 cycle of chemotherapy. She will have pulmonary evaluation, dietary consult, palliative care consult, wound care consult. The patient is also going to be set up for CAT scan of the abdomen and pelvis, oral and IV contrast; MRI of the thoracic spine. CBC and SMA daily for 3 days. The patient is going to start 24 hours post chemotherapy of Granix subcu daily starting tomorrow. The patient is going to be also started on physical therapy by the bedside with a doughnut pad. I have requested for an air mattress as well while she is standing out of bed when it is feasible . Routine post exam instructions have been given to the patient. Overall prognosis is guarded. I had a detailed discussion with the patient, spoke to the son, spoke to the daughter, and we are going to reassess the status of her cancer as more than a month has gone by since the prior testing before we initiated therapy. We are going to also check with Neurology whether any other procedure such neurosurgical intervention may be needed in case the back issues related to metastatic disease have progressed. Time spent with the patient greater than 1 hour, correlating all the facts, discussing with the residential and rehab, talking to the patient's family and talking to the nurses and putting all the orders in. Rudy Puente MD
[2017-07-12] MEDS: Insulin Reg-MEDIUM-Coverage SC SCH ×3 (08:00→22:26)
--- NOTE | 2017-07-12 09:33 | RAD ---
HISTORY: Sepsis Patient COMPARISON: 06/07/2017 chest x-ray 06/07/2017. CT chest without contrast 07/07/2017 FINDINGS: LUNGS: Right lung volumes slightly smaller than before. The right minor fissural thickening/ opacity here slightly increased some increasing atelectasis and are infiltrate here right mid lung zone compatible with this. The right peritracheal/right hilar soft tissue fullness compatible with known right central lung mass and/or lymphadenopathy and blending right peritracheal lymphadenopathy is similar in appearance the patchy opacity in the medial right lung base is similar with perhaps minimal improved aeration here compared the prior CT. The inferolateral right pleural base nodular opacities referenced on CT are similar appearing Discoid like atelectatic changes and/or scarring at the left lung base noted-similar. No interval left hemithoracic pathology noted PLEURA: No pneumothorax. Right inferolateral pleural base nodular opacities as referenced above noted CARDIOVASCULAR: Mild cardiomegaly. OSSEOUS STRUCTURES: A concomitant minimal chronic pulmonary venous congestion not excluded. No change in this appearance VISUALIZED UPPER ABDOMEN: Normal. OTHER FINDINGS: Port-A-Cath tip right atrium via internal jugular vein approach -similar-appearing IMPRESSION: Interval increased opacity consistent with progressive infiltrate and/or atelectasis spanning the abnormal right central hilar soft tissue pathology to the right lateral mid lung zone pleural surface. Possible trace improved aeration in the medial right lower lobe coalescent infiltrates. Significant residual persists Right pleural-based nodular opacities-similar Right hilar/blending right peritracheal mediastinal soft tissue mass/lymphadenopathy appearance similar
--- NOTE | 2017-07-12 09:47 | CP.PCM.CON ---
History of Present Illness - History of Present Illness History of Present Illness: Palliative consult requested by Dr Juan Puente Reason: Goals of care/advance care planning 72 year old female with history of who presented with weakness, appetite and upper back pain. Patient was also febrile. She denies chills,nausea , vomiting, diarrhea and headache. Work up revealed the patient be pancytopenic. Chest x ray showing increased opacity consistent with progressive infiltrate/atelectasis spanning form right central hilar to right lateral pleural space, improved aeration in media RUL infiltrate,no change in right pleural nodular opacities. PMHx: metastatic small cell lung cancer, cord compression s/p palliative RT to spine, s/p chemotherapy, sacral decubiti, anemia,constipation. Social History: Former smoker, no alcohol or drug use. Family History: Non contributory. Advance Care Planning: Patient states she has an Advanced Directive. Review of Systems: As per HPI, otherwise negative 12 point review. Past Patient History - Infectious Disease Hx of Infectious Diseases: None - Past Social History Smoking Status: Former Smoker - CARDIAC Hx Cardiac Disorders: Yes Hx Circulatory Problems: Yes Hx Congestive Heart Failure: Yes Hx Hypertension: Yes - PULMONARY Hx Respiratory Disorders: Yes (USED TO SMOKE PPD CIGARETTES QUIT,LUNG CA ON CHEMOTHERAPHY) - NEUROLOGICAL Hx Neurological Disorder: No - HEENT Hx HEENT Problems: No - RENAL Hx Chronic Kidney Disease: No - ENDOCRINE/METABOLIC Hx Endocrine Disorders: Yes Hx Diabetes Mellitus Type 1: Yes - HEMATOLOGICAL/ONCOLOGICAL Hx Blood Disorders: Yes Hx Cancer: Yes (small cell lung ca recently dx) Hx Chemotherapy: Yes (received chemo today) Other/Comment: epidural mass, liver mass, Pt stated " I had 10 radiation treatments, and 2 chemo treatments, I did not get a third chemo because my white count is low." - INTEGUMENTARY Hx Dermatological Problems: Yes Other/Comment: 07-11-17 SACRAL PRESSURE ULCER IN WHICH CENTER OF WOUND HAS SOME SLOUGH.SURROUNDING SKIN IS PURPLISH HUE WITH PINPOINT RASH. HAS IASD,ALSO TO BILATERAL GROIN AREA. - MUSCULOSKELETAL/RHEUMATOLOGICAL Hx Musculoskeletal Disorders: Yes Hx Arthritis: Yes Hx Falls: Yes Hx Unsteady Gait: Yes (WALKER) - GASTROINTESTINAL Hx Gastrointestinal Disorders: Yes (esophageal ulcers) - GENITOURINARY/GYNECOLOGICAL Hx Genitourinary Disorders: (external catheter) Hx Reproductive Disorders: No - PSYCHIATRIC Hx Psychophysiologic Disorder: Yes Hx Anxiety: Yes Hx Depression: Yes Hx Substance Use: No - SURGICAL HISTORY Hx Surgeries: Yes (CARD CATH 2-18,PORT) Hx Cardiac Catheterization: Yes Hx Orthopedic Surgery: Yes (R KNEE) - ANESTHESIA Hx Anesthesia Reactions: No Hx Malignant Hyperthermia: No Meds Allergies/Adverse Reactions: Allergies Allergy/AdvReac Type Severity Reaction Status Date / Time Sulfa (Sulfonamide Allergy ANAPHYLAXIS Verified 07/11/17 23:19 Antibiotics) - Medications Medications: Current Medications Acetaminophen (Tylenol 325mg Tab) 650 mg PO Q6H PRN PRN Reason: general discomfort Alprazolam (Xanax) 0.25 mg PO BID [facility] Bisacodyl (Dulcolax) 5 mg PO DAILY PRN PRN Reason: Constipation Enoxaparin Sodium (Lovenox) 30 mg SC DAILY [facility] PRN Reason: Protocol Famotidine (Pepcid) 40 mg PO HS [facility] Sodium Chloride (Sodium Chloride 0.9%) 1,000 mls @ 150 mls/hr IV .Q6H40M [facility] Last Admin: 07/11/17 19:52 Dose: 150 mls/hr Insulin Human Regular (Humulin R Med) 0 units SC ACHS [facility] PRN Reason: Protocol Ketoconazole (Nizoral) 0 gm TOP BID [facility] Lidocaine (Lidoderm) 2 ea TD HS [facility] Loratadine (Claritin) 10 mg PO DAILY [facility] Magnesium Hydroxide (Milk Of Magnesia) 15 ml PO DAILY PRN PRN Reason: Indigestion / Heartburn Montelukast Sodium (Singulair) 10 mg PO HS [facility] Morphine Sulfate (Morphine Extended Release Tab) 15 mg PO Q12 [facility] Morphine Sulfate (Morphine) 2 mg IVP Q4H PRN PRN Reason: Pain, severe (8-10) Morphine Sulfate (Morphine Immediate Release Tab) 15 mg PO Q6H PRN PRN Reason: Pain, moderate (4-7) Nicotine (Nicoderm Cq) 1 patch TD DAILY [facility] Nystatin (Nystatin Oral Susp) 5 ml PO QID [facility] Ondansetron HCl (Zofran Inj) 4 mg IVP Q4H PRN PRN Reason: Nausea/Vomiting Sucralfate (Carafate Oral Susp) 1 gm PO 0600,1600 [facility] Last Admin: 07/12/17 05:59 Dose: 1 gm Zolpidem Tartrate (Ambien) 5 mg PO HS [facility] PRN Reason: Protocol Physical Exam - Constitutional Appears: Chronically Ill - Eye Exam Eye Exam: Normal appearance, PERRL - ENT Exam ENT Exam: Mucous Membranes Moist, Normal Oropharynx - Neck Exam Neck exam: Positive for: Normal Inspection - Respiratory Exam Respiratory Exam: Decreased Breath Sounds, Wheezes, NORMAL BREATHING PATTERN - Cardiovascular Exam Cardiovascular Exam: REGULAR RHYTHM, +S1, +S2 - GI/Abdominal Exam GI & Abdominal Exam: Normal Bowel Sounds, Soft Additional comments: no tenderness or guarding - Extremities Exam Extremities exam: Positive for: pedal pulses present Additional comments: pedal edema - Back Exam Additional comments: vertebral tendernesses mid back, large sacral decubiti - Skin Skin Exam: Dry, Pallor - Additional Findings Additional findings: palliative performance scale rating 50% Results - Vital Signs Recent Vital Signs: Last Vital Signs Temp 98.1 F 07/12/17 08:30 Pulse 69 07/12/17 08:30 Resp 22 07/12/17 08:30 BP 167/77 H 07/12/17 08:30 Pulse Ox 94 L 07/12/17 08:30 - Labs Result Diagrams: 07/12/17 06:00 07/12/17 06:00 Labs: Laboratory Results - last 24 hr 07/11/17 07/11/17 07/11/17 19:53 19:53 19:53 WBC 5.8 RBC 3.18 L Hgb 9.3 L Hct 30.7 L MCV 96.5 MCH 29.2 MCHC 30.3 L RDW 20.9 H Plt Count 197 MPV 9.7 Gran % 87.9 H Lymph % (Auto) 9.0 L Daniels % (Auto) 2.9 Eos % (Auto) 0.0 L Baso % (Auto) 0.2 Gran # 5.10 Lymph # (Auto) 0.5 L Daniels # (Auto) 0.2 Eos # (Auto) 0.0 Baso # (Auto) 0.01 PT 14.0 H INR 1.22 H APTT 24.8 L pO2 103 H VBG pH 7.37 VBG pCO2 48.0 VBG HCO3 27.7 VBG Total CO2 29.2 H VBG O2 Sat (Calc) 98.6 H VBG Base Excess 1.7 VBG Potassium 4.0 Sodium 138.0 Chloride 107.0 Glucose 295 H Lactate 1.7 FiO2 21.0 Potassium Carbon Dioxide Anion Gap BUN Creatinine Est GFR ( Amer) Est GFR (Non-Af Amer) POC Glucose (mg/dL) Random Glucose Calcium Phosphorus Magnesium Total Bilirubin AST ALT Alkaline Phosphatase Lactate Dehydrogenase Total Protein Albumin Globulin Albumin/Globulin Ratio Venous Blood Potassium 4.0 Urine Color Urine Appearance Urine pH Ur Specific [place] Urine Protein Urine Glucose (UA) Urine Ketones Urine Blood Urine Nitrate Urine Bilirubin Urine Urobilinogen Ur Leukocyte Esterase 07/11/17 07/11/17 07/12/17 19:53 22:51 06:00 WBC 4.5 D RBC 2.87 L Hgb 8.4 L Hct 27.6 L MCV 96.2 MCH 29.3 MCHC 30.4 L RDW 20.4 H Plt Count 169 MPV 9.4 Gran % Lymph % (Auto) Daniels % (Auto) Eos % (Auto) Baso % (Auto) Gran # Lymph # (Auto) Daniels # (Auto) Eos # (Auto) Baso # (Auto) PT INR APTT pO2 VBG pH VBG pCO2 VBG HCO3 VBG Total CO2 VBG O2 Sat (Calc) VBG Base Excess VBG Potassium Sodium 138 Chloride 103 Glucose Lactate FiO2 Potassium 4.0 Carbon Dioxide 30 Anion Gap 10 BUN 11 Creatinine 0.4 L Est GFR ( Amer) > 60 Est GFR (Non-Af Amer) > 60 POC Glucose (mg/dL) Random Glucose 285 H Calcium 8.6 Phosphorus 3.3 Magnesium 2.2 Total Bilirubin 0.7 AST 140 H ALT 72 H Alkaline Phosphatase 428 H Lactate Dehydrogenase Total Protein 6.2 Albumin 3.0 Globulin 3.2 Albumin/Globulin Ratio 0.9 L Venous Blood Potassium Urine Color Yellow Urine Appearance Clear Urine pH 6.0 Ur Specific [place] 1.025 Urine Protein Negative Urine Glucose (UA) >=1000 Urine Ketones Trace H Urine Blood Negative Urine Nitrate Negative Urine Bilirubin Negative Urine Urobilinogen 1.0 H Ur Leukocyte Esterase Negative 07/12/17 07/12/17 06:00 07:33 WBC RBC Hgb Hct MCV MCH MCHC RDW Plt Count MPV Gran % Lymph % (Auto) Daniels % (Auto) Eos % (Auto) Baso % (Auto) Gran # Lymph # (Auto) Daniels # (Auto) Eos # (Auto) Baso # (Auto) PT INR APTT pO2 VBG pH VBG pCO2 VBG HCO3 VBG Total CO2 VBG O2 Sat (Calc) VBG Base Excess VBG Potassium Sodium 143 Chloride 108 H Glucose Lactate FiO2 Potassium 3.8 Carbon Dioxide 29 Anion Gap 9 L BUN 13 Creatinine 0.4 L Est GFR ( Amer) > 60 Est GFR (Non-Af Amer) > 60 POC Glucose (mg/dL) 213 H Random Glucose 252 H Calcium 8.1 L Phosphorus Magnesium Total Bilirubin 0.5 AST 118 H ALT 73 H Alkaline Phosphatase 361 H Lactate Dehydrogenase 4134 H Total Protein 5.5 L Albumin 2.6 L Globulin 2.9 Albumin/Globulin Ratio 0.9 L Venous Blood Potassium Urine Color Urine Appearance Urine pH Ur Specific [place] Urine Protein Urine Glucose (UA) Urine Ketones Urine Blood Urine Nitrate Urine Bilirubin Urine Urobilinogen Ur Leukocyte Esterase Assessment & Plan - Assessment and Plan (Free Text) Assessment: 72 year old female with hsity of metastatic small cell lung cancer, cord compression s/p RT, chemotherapy who is admitted with sepsis, pancytopenia, infected sacral decubiti,weakness and dehydration The patient is alert and oriented. Appetite fair. Denies pain at this time. She complains of weakness although admits she is feeling much better today. The patient is aware of her diagnosis. Goals of care discussion ensued. Maria Elena does not express distress over her illness, rather she is determined to keep trying. She intends to continue treatment. Resuscitation status discussed. Maria Elena infers that she has a an Advanced Directive at home, but not sure where it is. Benefits and burdens of resuscitation/intubation explained. Questions answered. POLST directive also explained. Maria Elena states intent to complete POLST and asked that I return later today. Psychosocial support provided. Time spent with patient in goals of care and advance care planning discussion, 30 minutes. Plan: Reports reviewed,medications reviewed, continue current therapeutic treatment plan. Palliative support in establishing goals of care Advance care planning
[2017-07-12] MEDS ORDERED: Barium Sulfate Susp 2.1% w/v, 2.0% w/w 450 mL Bottle PO ONE (09:50)
[2017-07-12] MEDS: Morphine 2 mg/ml ISec IVP PRN ×2 (10:00→15:00)
[2017-07-12] MEDS: Nystatin 100,000 Units/ml Oral Susp 5 ml UD PO SCH ×4 (10:01→22:25)
[2017-07-12] MEDS: Enoxaparin 30 mg Syringe SC SCH (10:02)
--- NOTE | 2017-07-12 10:03 | CARD ---
APPROVED REPORT EKG Measurement Heart [id number] <Conclusion> Normal sinus rhythm with sinus arrhythmia Left anterior Wilfred-Block. Left ventricular hypertrophy with QRS widening Cannot rule out Septal infarct, age undetermined Abnormal ECG
[2017-07-12] MEDS: Sodium Chloride 0.9% 1,000 ML IV SCH ×3 (10:04→22:27)
[2017-07-12] MEDS: Morphine 15 mg SR Tab PO SCH ×2 (10:17→22:25)
--- NOTE | 2017-07-12 13:16 | CP.PCM.PN ---
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 Of concern, she was unable to self transfer from her transport to the infusion bed , and required 2 person assist, which is a significant decline from the level she showed prior to her discharge from the TCU. She appears to be suffering from failure to thrive, also requiring workup to rule out acute cord compression requiring emergent intervention. Patient seen at bedside today, reports improvement of symptoms as compared to level at presentation yesterday. Reports tolerating PO intake (solid food) yesterday evening, no issues with keeping food down. Denies diarrhea, constipation, dysuria, hematuria, fevers, chills, chest pain, or current shortness of breath. Denies feeling back to baseline yet, still feels weak, but improved compared to yesterday. Objective - Vital Signs/Intake and Output Vital Signs (last 24 hours): Temp Pulse Resp BP Pulse Ox 98.1 F 69 22 167/77 H 94 L 07/12/17 08:30 07/12/17 08:30 07/12/17 08:30 07/12/17 08:30 07/12/17 08:30 Intake and Output: 07/12/17 07/12/17 06:59 18:59 Intake Total 0 Balance 0 - Medications Medications: Current Medications Acetaminophen (Tylenol 325mg Tab) 650 mg PO Q6H PRN PRN Reason: general discomfort Alprazolam (Xanax) 0.25 mg PO BID [facility] Last Admin: 07/12/17 10:02 Dose: 0.25 mg Bisacodyl (Dulcolax) 5 mg PO DAILY PRN PRN Reason: Constipation Enoxaparin Sodium (Lovenox) 30 mg SC DAILY KIMMY PRN Reason: Protocol Last Admin: 07/12/17 10:02 Dose: 30 mg Famciclovir (Famvir) 500 mg PO BID KIMMY PRN Reason: Protocol Last Admin: 07/12/17 10:18 Dose: 500 mg Famotidine (Pepcid) 40 mg PO HS [facility] Sodium Chloride (Sodium Chloride 0.9%) 1,000 mls @ 150 mls/hr IV .Q6H40M [facility] Last Admin: 07/12/17 10:04 Dose: 150 mls/hr Insulin Human Regular (Humulin R Med) 0 units SC ACHS [facility] PRN Reason: Protocol Ketoconazole (Nizoral) 0 gm TOP BID [facility] Lidocaine (Lidoderm) 2 ea TD HS [facility] Loratadine (Claritin) 10 mg PO DAILY [facility] Last Admin: 07/12/17 10:01 Dose: 10 mg Magnesium Hydroxide (Milk Of Magnesia) 15 ml PO DAILY PRN PRN Reason: Indigestion / Heartburn Methylprednisolone (Solu-Medrol) 80 mg IVP DAILY [facility] Stop: 07/13/17 10:01 Montelukast Sodium (Singulair) 10 mg PO HS [facility] Morphine Sulfate (Morphine Extended Release Tab) 15 mg PO Q12 [facility] Last Admin: 07/12/17 10:17 Dose: 15 mg Morphine Sulfate (Morphine) 2 mg IVP Q4H PRN PRN Reason: Pain, severe (8-10) Last Admin: 07/12/17 10:00 Dose: 2 mg Morphine Sulfate (Morphine Immediate Release Tab) 15 mg PO Q6H PRN PRN Reason: Pain, moderate (4-7) Nicotine (Nicoderm Cq) 1 patch TD DAILY [facility] Last Admin: 07/12/17 10:02 Dose: 1 patch Nystatin (Nystatin Oral Susp) 5 ml PO QID [facility] Last Admin: 07/12/17 10:01 Dose: 5 ml Ondansetron HCl (Zofran Inj) 4 mg IVP Q4H PRN PRN Reason: Nausea/Vomiting Sucralfate (Carafate Oral Susp) 1 gm PO 0600,1600 [facility] Last Admin: 07/12/17 05:59 Dose: 1 gm Zolpidem Tartrate (Ambien) 5 mg PO [facility] PRN Reason: Protocol - Labs Labs: 07/12/17 06:00 07/12/17 06:00 PT 14.0 SECONDS (9.4-12.5) H 07/11/17 19:53 INR 1.22 (0.93-1.08) H 07/11/17 19:53 APTT 24.8 Seconds (25.1-36.5) L 07/11/17 19:53 - Additional Findings Additional findings: - Constitutional Appears: Non-toxic, No Acute Distress - Head Exam Head Exam: ATRAUMATIC, NORMAL INSPECTION, NORMOCEPHALIC - Eye Exam Eye Exam: EOMI, Normal appearance, PERRL. absent: Conjunctival injection, Scleral icterus Pupil Exam: NORMAL ACCOMODATION, PERRL. absent: Fixed, Irregular, Unequal Additional comments: Mild conjunctival pallor - ENT Exam ENT Exam: Mucous Membranes Moist - Neck Exam Neck exam: Positive for: Full Rom. Negative for: Lymphadenopathy, Thyromegaly - Respiratory Exam Respiratory Exam: Decreased Breath Sounds (mildly decreased breath sounds in all walker auscultated, but otherwise CTAB), Clear to Auscultation Bilateral, NORMAL BREATHING PATTERN. absent: Accessory Muscle Use, Chest Wall Tenderness, Rales, Rhonchi, Wheezes - Cardiovascular Exam Cardiovascular Exam: REGULAR RHYTHM, RRR, +S1, +S2. absent: Bradycardia, Tachycardia, Irregular Rhythm, JVD - GI/Abdominal Exam GI & Abdominal Exam: Normal Bowel Sounds, Soft, Tenderness (mild tenderness at LLQ). absent: Diminished Bowel Sounds, Firm, Guarding, Pulsatile Mass - Extremities Exam Extremities exam: Positive for: normal inspection, pedal pulses present. Negative for: calf tenderness, pedal edema, tenderness - Neurological Exam Awake and alert, following all commands appropriately diffusely weak in all extremities, LE > UE, L>R some movement intact in all extremities, appropriate strength with removal of gravity as factor (strength +2-3/5 overall, 2/5 in LLE, 3/5 in RLE and bilateral UE) - Psychiatric Exam Psychiatric exam: normal mood and affect - Skin Skin Exam: Dry, Intact, Pallor cool to palpation at bilateral LE from knees down, otherwise warm to palpation - Additional Findings Candidal-appearing rash along buttocks and groin, in addition to right cheek pressure ulcer Assessment and Plan - Assessment and Plan (Free Text) Assessment: This is a 72 yo F with PMH of 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 She appears to be suffering from failure to thrive, needs workup to rule out acute cord compression requiring emergent intervention. Plan: Stage IV small cell lung cancer s/p XRT and chemotherapy w/ carboplatin and etoposide Poor oral intake Dehydration Failure to thrive Asymmetrical weakness Spinal cord compression - r/o Improved weakness since admission, may be secondary to steroids with chemo vs improved PO intake Solumedrol 80mg daily x2 days for possible post-chemo nausea/emesis Given asymmetrical weakness, concern for [employer] event, Neuro consulted, appreciate all recs; CT head ordered, will f/u Pulm consulted, appreciate all recs Given extent of disease, Palliative service consulted; patient did not want to speak with them this AM, will recheck later Famvir 500mg PO BID for neutopenia precautions; given risk of herpetic rxns in immunosuppressed pts on chemo Will determine when last received dose of bisphosphonate, if a candidate now will give palmodronate 90mg x1 Case reviewed and discussed at length with attending, Dr. Puente.
--- NOTE | 2017-07-12 14:50 | CT ---
PROCEDURE: CT HEAD WITHOUT CONTRAST. HISTORY: asymmetric weakness COMPARISON: None available. TECHNIQUE: Axial computed tomography images were obtained through the head/brain without intravenous contrast. Radiation dose: Total exam DLP = 928 mGy-cm. This CT exam was performed using one or more of the following dose reduction techniques: Automated exposure control, adjustment of the mA and/or kV according to patient size, and/or use of iterative reconstruction technique. FINDINGS: HEMORRHAGE: No intracranial hemorrhage. BRAIN: No mass effect or edema. No atrophy or chronic microvascular ischemic changes. VENTRICLES: Unremarkable. No hydrocephalus. CALVARIUM: Unremarkable. PARANASAL SINUSES: Unremarkable as visualized. No significant inflammatory changes. MASTOID AIR CELLS: Unremarkable as visualized. No inflammatory changes. OTHER FINDINGS: None. IMPRESSION: No acute findings
[2017-07-12] MEDS: MethylPREDNISolone 40 mg Vial IVP SCH (15:00)
--- NOTE | 2017-07-12 15:28 | CT ---
PROCEDURE: CT Neck, Chest, Abdomen and Pelvis with contrast HISTORY: small cell lung ca; checking for response to tx COMPARISON: CT of the chest with contrast 05/19/2017 TECHNIQUE: Contrast dose: 150 cc of Omni 350 Radiation dose: Total exam DLP = 1297 mGy-cm. This CT exam was performed using one or more of the following dose reduction techniques: Automated exposure control, adjustment of the mA and/or kV according to patient size, and/or use of iterative reconstruction technique. FINDINGS: CT OF THE NECK: PHARYNX: Nasopharynx: Unremarkable. Oropharnx: Unremarkable. Hypopharynx: Unremarkable. LYMPH NODES: 2.2 cm node adjacent to the right internal jugular at the level of the vocal cords VASCULATURE: Unremarkable. GLANDS: Unremarkable. CERVICAL SPINE: Unremarkable. CT OF THE CHEST: LUNGS: Clear lungs. Visualized airway clear. MEDIASTINUM: Unremarkable thoracic aorta. No aneurysm or dissection. Normal sized heart. Pulmonary arterial truck unremarkable. No vascular congestion. The mediastinal adenopathy has shown slight progression with further narrowing of the SVC. The Port-A-Cath catheter can be seen with in the SVC. The say mass measures 5 x 6.9 cm. The smaller anterior mediastinal nodes have also slightly increased in size. There is also a 2 cm node at the thoracic inlet on the right which has increased slightly. Sub carinal adenopathy is not significantly changed. The mediastinal adenopathy partially encases the right pulmonary artery. There is also hilar adenopathy. PLEURA: There is an increasing right pleural effusion. There is some adjacent consolidation at the right lung base. Subpleural nodules are seen on the right. These are unchanged. BONES: No fracture. No destructive lesion. CT OF THE ABDOMEN AND PELVIS: LIVER: Multiple large liver lesions are seen which are less well-defined but appear to be larger and more confluent. There is less normal liver parenchyma the lesions the enhancement on the current study was in the arterial phase rather than the portal venous phase making it difficult to evaluate hepatic lesions. GALLBLADDER AND BILE DUCTS: Unremarkable. PANCREAS: Unremarkable. No mass or ductal dilatation. SPLEEN: Unremarkable. No splenomegaly. ADRENALS: Unremarkable. KIDNEYS AND URETERS: Unremarkable. No hydronephrosis or hydroureter. No solid mass lesion. BLADDER: Unremarkable. No mass. REPRODUCTIVE: Unremarkable. APPENDIX: Normal appendix. STOMACH AND BOWEL: Unremarkable. No obstruction. No mural thickening. PERITONEUM: Unremarkable. No free fluid. No free air. LYMPH NODES: Large lymph nodes are seen in the kiran hepatis and inferior to the IVC. At the level of the celiac axis there is a 3 cm retrocaval node and a 3.5 cm portal node. VASCULATURE: Unremarkable. No aortic aneurysm. BONES: No fracture or focal lesion. OTHER FINDINGS: None. IMPRESSION: Slight progression of mediastinal adenopathy. Significant progression of metastatic disease to the liver Increasing retroperitoneal adenopathy in the periportal and upper IVC region.
--- NOTE | 2017-07-12 17:15 | CON ---
DATE: 07/12/2017 NEUROLOGY CONSULT CHIEF COMPLAINT: Generalized weakness. HISTORY OF PRESENT ILLNESS: This is a 72-year-old woman with past medical history of stage IV small cell carcinoma with mets to the spine and liver, type 2 diabetes mellitus, hypertension, major depressive disorder, was brought to the hospital with generalized weakness, apparently was came to the Oncology Infusion Clinic for another round of chemotherapy of her cancer and of concern she was unable to self transfer for her transport to the infusion bed and was required 2-person assist, which was a significant decline from the level she had prior to discharge from TCU. She had been suffering from failure to thrive. She has a history of diffuse metastatic disease in the thoracic spine with a posterior cortical buckling of T11 segment that resulted in mild compression of the anterolateral margin of the thecal sac, bilateral , but not significantly compression of the cord at that time, which was the MRI of the thoracic spine which was done on 05/20/2017 status post radiation therapy. She can lift up her legs one by one, but seems more like she has bilateral 4+/5 to 5-/5 lower extremity weakness and she does seem very deconditioned. She has neuropathic features on her lower extremities on examination. Otherwise, she is conversing pretty well and no aphasia noted. PAST MEDICAL HISTORY: History of type 2 diabetes mellitus, depression, history of stage IV small cell cancer with mets to the thoracic spine and liver, type 2 diabetes mellitus, hypertension, major depressive disorder. REVIEW OF SYSTEMS: Fourteen-point review of systems negative except as per the HPI. FAMILY HISTORY: Noncontributory. SOCIAL HISTORY: No illicit drug use, smoking or EtOH abuse at this time. ALLERGIES: ALLERGIC TO SULFA MEDICATIONS. PHYSICAL EXAMINATION: VITAL SIGNS: Temperature 98.1, pulse rate of 69, blood pressure 166/77, respiratory rate of 22, oxygen saturation 98% by room air. GENERAL: The patient is sitting up in bed, in no acute distress. HEENT: Atraumatic, normocephalic. PERRLA. Extraocular muscles intact. NECK: Supple. No JVD. No adenopathy noted. LUNGS: Clear to auscultation. No adventitious sounds. HEART: S1 and S2. Normal rate and rhythm. No murmurs, rubs or gallops. ABDOMEN: Soft, nontender and nondistended. Bowel sounds are present. EXTREMITIES: No clubbing. Peripheral pulses 2+ felt bilaterally. NEUROLOGIC: The patient is alert and oriented to person, place, month and year. Speech is fluent without any errors. Motor exam: Moves all extremities equally. No pronator drift seen. Sensory exam: Decreased light touch and pinprick up to the calves bilaterally. Decreased vibration of the toes. DTRs 2+ throughout, 1 at both knees and absent at the ankles. Coordination: [id number]-[id number] intact. No dysmetria noted. Gait is deferred for now. LABORATORY DATA: Hemoglobin 8.4, hematocrit 27.6, platelet count 169. Sodium is 143, potassium 3.8, carbon dioxide 29, BUN of 13, creatinine 0.4, random glucose 252. A1c is 7. ASSESSMENT AND PLAN: 1. This is a 72-year-old woman with history of depression, history of type 2 diabetes mellitus, diabetic peripheral neuropathy, stage IV small cell lung cancer, status post radiation therapy and chemotherapy with carboplatin and etoposide with metastasis to the thoracic spine as well as the liver, who comes in with generalized weakness, poor oral intake, dehydration, failure to thrive, asymmetrical lower extremity weakness, which I was called to evaluate her weakness. She is able to lift both legs without any difficulty for more than 10 seconds. Apparently, based on what her admission diagnosis, her weakness is much better. She has status post Solu-Medrol. She is getting IV push daily. At this time, we know that she has thoracic metastasis which can cause bilateral lower extremity weakness. We will evaluate and a repeat MRI of the thoracic spine with and without contrast as well as cervical spine and lumbosacral spine to assess for any worsening metastatic lesions or any worsening cord compression. 2. Keep blood sugars between 140-180. 3. She does have diabetic peripheral neuropathy changes and deconditioned state. I will recommend also a physical therapy and likely acute rehab and for followup with Oncology in regards to her management of underlying cancer and continue to monitor electrolytes and correct accordingly. Thank you for this consult. Francisco Li MD
[2017-07-12] MEDS: Lidocaine 5% Patch TD SCH (22:26)
[2017-07-13] MEDS: Sucralfate 1 gm/10 ml Oral Susp UD PO SCH ×2 (06:03→17:43)
[2017-07-13 06:23] LABS: HEMOGLOBIN 8.6 g/dL (12.0-16.0); MEAN CELL VOLUME 96.5 fl (80.0-105.0); MEAN CORPUSCULAR HEMOGLOBIN 30.2 pg (25.0-35.0); MEAN CORPUSCULAR HGB CONC 31.3 g/dl (31.0-37.0); MEAN PLATELET VOLUME 9.5 fl (7.0-11.0); RBC 2.85 10^6/uL (3.5-6.1); RED CELL DISTRIBUTION WIDTH 20.3 % (11.5-14.5); WHITE BLOOD COUNT 10.7 10^3/ul (4.5-11.0)
[2017-07-13 06:52] LABS: ALBUMIN 2.7 g/dL (3.0-4.8); ALT/SGPT 71 U/L (7-56); AST/SGOT 95 U/L (14-36); BLOOD UREA NITROGEN 11 mg/dL (7-21); CALCIUM 7.9 mg/dL (8.4-10.5); GFR AFRICAN-AMERICAN > 60; GFR NON-AFRICAN AMERICAN > 60
[2017-07-13] MEDS: Arformoterol 15 mcg/2 ml Inh Sol IH SCH ×2 (07:03→19:31)
[2017-07-13] MEDS: Budesonide 0.5 mg/2 ml Inhal Susp UD IH SCH ×2 (07:03→19:31)
[2017-07-13] MEDS ORDERED: Potassium Chloride 40 mEq/30 ml LIQ UD PO ONE (07:55)
[2017-07-13] MEDS: Insulin Reg-MEDIUM-Coverage SC SCH ×4 (08:44→22:17)
--- NOTE | 2017-07-13 08:47 | CON ---
DATE: 07/12/2017 PULMONARY CONSULTATION: REFERRING PHYSICIAN: Dr. Puente. REASON FOR CONSULTATION: Lung cancer with metastatic disease, with cough and shortness of breath. HISTORY OF PRESENT ILLNESS: This is a 72-year-old female, well known to me from previous admission, has a known history of chronic obstructive lung disease, lung cancer with metastatic disease to spine requiring radiation therapy, also had liver mets, sacral decubiti and anemia, received chemotherapy a few weeks ago, postop was complicated with pneumonia, extensive oral ulcers, slowly improved and she was discharged to subacute facility, came in yesterday and received I believe some chemotherapy. She had persistent symptom of cough and shortness of breath, so was admitted. Presently, lying in the bed, feels a little better, still have cough, some sputum production. No nausea. No vomiting. No diarrhea. No leg pain. No leg swelling. PAST MEDICAL HISTORY: As per history of present illness. SOCIAL HISTORY: Former smoker. Denying any alcohol use. FAMILY HISTORY: No significant cardiopulmonary disease reported. ALLERGIES: TO SULFA. MEDICATIONS: She is on Ambien 5 mg at bedtime p.r.n., Carafate 1 g twice a day, Claritin 10 mg daily, Dulcolax 5 mg p.o. daily p.r.n. Also, Famvir 500 mg twice a day, insulin coverage, lidocaine to affected area, Lovenox 30 mg subcu daily, morphine 2 mg q.4 hours p.r.n. for pain and also morphine extended release 50 mg q.12 hours [id number], morphine sulfate immediate release 50 mg q.6 hours for severe pain, Nicoderm patch daily, getting ketoconazole to affect area, nystatin oral suspension four times a day, Pepcid 40 mg at bedtime, Singulair 10 mg daily, IV fluid normal saline 50 mL per hour, Solu-Medrol 80 mg daily for 2 doses, Tylenol p.r.n., Xanax 0.25 mg twice a day and Zofran p.r.n. basis. REVIEW OF SYSTEMS: No headache. No rhinitis. Has some cough, sputum production. No chest pain. No nausea. No vomiting. Had constipation. No leg pain or leg swelling. PHYSICAL EXAMINATION: GENERAL: Lying in the bed, mild cough and short of breath. VITAL SIGNS: Temperature is 98, heart rate is 93, respiratory rate is 18, blood pressure 142/68, pulse ox 94% on nasal cannula. HEENT: Moist mucous membrane. Crowded airway. NECK: Supple. No JVD. LUNGS: Have a few crackles at the bases. Scattered rhonchi. HEART: S1 and S2. ABDOMEN: Soft, nontender. No organomegaly. EXTREMITIES: There is no edema. NEUROLOGIC: Awake, alert. Follows simple command. LABORATORY DATA: Shows hemoglobin 8.4, hematocrit 27.6, WBC 4.5, platelet is 169. INR 1.22. Has a VBG done, which showed pH 7.37, pCO2 of 48, O2 of 103. Sodium 143, potassium 3.8, chloride 108, bicarbonate 29, BUN 13, creatinine 0.4, glucose 252, calcium is 8.1. AST 118, ALT 73 and alk phos is . Albumin is 2.6. Microbiology, blood culture has been negative. CAT scan of the head was done, which shows no acute findings. Also gets CT of the neck, chest, abdomen and pelvis, which is remarkable for slight progression of the mediastinal adenopathy, significant progression of metastatic disease to the liver, increased retroperitoneal adenopathy in the periportal and upper IVC region. Chest x-ray, which is done yesterday in ER also shows increased opacity consistent with progressive infiltrate, atelectasis in the right central and hilar region. IMPRESSION AND PLAN: Metastatic lung cancer, which is a progressive disease; metastases to the bones, cord compression, liver metastases and retroperitoneal lymphadenopathy, been on radiation to the spine and received a dose of chemotherapy, chronic obstructive lung disease, anemia and dehydration. Case was discussed with Dr. Puente this evening. I agreed with the present management. Continue antibiotics, IV and inhaled bronchodilator. Gastric prophylaxis, deep vein thrombosis prophylaxis. Restart physical therapy. Once stable medically, need to restart her chemotherapy. Thank you and we will follow up with you. Robert Eastman MD
[2017-07-13] MEDS: Nystatin 100,000 Units/ml Oral Susp 5 ml UD PO SCH ×4 (09:59→21:40)
[2017-07-13] MEDS: MethylPREDNISolone 40 mg Vial IVP SCH (09:59)
[2017-07-13] MEDS: Morphine 15 mg SR Tab PO SCH ×2 (10:00→21:40)
[2017-07-13] MEDS: Sodium Chloride 0.9% 1,000 ML IV SCH (10:02)
[2017-07-13] MEDS: Enoxaparin 30 mg Syringe SC SCH (10:03)
--- NOTE | 2017-07-13 11:01 | CP.PCM.PN ---
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 Of concern, she was unable to self transfer from her transport to the infusion bed , and required 2 person assist, which is a significant decline from the level she showed prior to her discharge from the [facility]CU. She appears to be suffering from failure to thrive, also requiring workup to rule out acute cord compression requiring emergent intervention. Patient seen at bedside today, reports improvement of symptoms as compared to level at presentation yesterday. Pending thoracic MRI as per Neuro. Reports still tolerating PO intake well, feels stronger compared to admission. Denies nausea, emesis, diarrhea, fevers. Objective - Vital Signs/Intake and Output Vital Signs (last 24 hours): Temp Pulse Resp BP Pulse Ox 97 F L 70 20 170/72 H 93 L 07/13/17 08:27 07/13/17 08:27 07/13/17 08:27 07/13/17 08:27 07/13/17 08:27 Intake and Output: 07/13/17 07/13/17 06:59 18:59 Intake Total 960 Output Total 1400 Balance -440 - Medications Medications: Current Medications Acetaminophen (Tylenol 325mg Tab) 650 mg PO Q6H PRN PRN Reason: general discomfort Alprazolam (Xanax) 0.25 mg PO BID [facility] Last Admin: 07/13/17 09:59 Dose: 0.25 mg Arformoterol Tartrate (Brovana) 15 mcg IH [id number] [facility] Last Admin: 07/13/17 07:03 Dose: 15 mcg Bisacodyl (Dulcolax) 5 mg PO DAILY PRN PRN Reason: Constipation Budesonide (Pulmicort Respules) 0.5 mg IH [id number] [facility] Last Admin: 07/13/17 07:03 Dose: 0.5 mg Enoxaparin Sodium (Lovenox) 30 mg SC DAILY [facility] PRN Reason: Protocol Last Admin: 07/13/17 10:03 Dose: 30 mg Famotidine (Pepcid) 40 mg PO [facility] Last Admin: 07/12/17 22:25 Dose: 40 mg Sodium Chloride (Sodium Chloride 0.9%) 1,000 mls @ 150 mls/hr IV .Q6H40M [facility] Last Admin: 07/13/17 10:02 Dose: 150 mls/hr Potassium Chloride (Potassium Chloride 10 Meq/100 Ml) 10 meq in 100 mls @ 50 mls/hr IVPB Q2H [facility] Stop: 07/13/17 11:59 Last Admin: 07/13/17 09:58 Dose: 50 mls/hr Insulin Human Regular (Humulin R Med) 0 units SC ACHS [facility] PRN Reason: Protocol Last Admin: 07/13/17 08:44 Dose: 3 units Ketoconazole (Nizoral) 0 gm TOP BID [facility] Last Admin: 07/13/17 10:07 Dose: 1 applic Lidocaine (Lidoderm) 2 ea TD [facility] Last Admin: 07/12/17 22:26 Dose: 2 ea Loratadine (Claritin) 10 mg PO DAILY [facility] Last Admin: 07/13/17 10:00 Dose: 10 mg Magnesium Hydroxide (Milk Of Magnesia) 15 ml PO DAILY PRN PRN Reason: Indigestion / Heartburn Montelukast Sodium (Singulair) 10 mg PO [facility] Last Admin: 07/12/17 22:25 Dose: 10 mg Morphine Sulfate (Morphine Extended Release Tab) 15 mg PO Q12 [facility] Last Admin: 07/13/17 10:00 Dose: 15 mg Morphine Sulfate (Morphine) 2 mg IVP Q4H PRN PRN Reason: Pain, severe (8-10) Last Admin: 07/12/17 15:00 Dose: 2 mg Morphine Sulfate (Morphine Immediate Release Tab) 15 mg PO Q6H PRN PRN Reason: Pain, moderate (4-7) Nicotine (Nicoderm Cq) 1 patch TD DAILY [facility] Last Admin: 07/13/17 10:01 Dose: 1 patch Nystatin (Nystatin Oral Susp) 5 ml PO QID [facility] Last Admin: 07/13/17 09:59 Dose: 5 ml Ondansetron HCl (Zofran Inj) 4 mg IVP Q4H PRN PRN Reason: Nausea/Vomiting Sucralfate (Carafate Oral Susp) 1 gm PO 0600,1600 [facility] Last Admin: 07/13/17 06:03 Dose: 1 gm Zolpidem Tartrate (Ambien) 5 mg PO HS [facility] PRN Reason: Protocol Last Admin: 07/12/17 22:25 Dose: 5 mg - Labs Labs: 07/13/17 06:00 07/13/17 06:00 PT 14.0 SECONDS (9.4-12.5) H 07/11/17 19:53 INR 1.22 (0.93-1.08) H 07/11/17 19:53 APTT 24.8 Seconds (25.1-36.5) L 07/11/17 19:53 - Additional Findings Additional findings: - Constitutional Appears: Non-toxic, No Acute Distress - Head Exam Head Exam: ATRAUMATIC, NORMAL INSPECTION, NORMOCEPHALIC - Eye Exam Eye Exam: EOMI, Normal appearance, PERRL. absent: Conjunctival injection, Scleral icterus Pupil Exam: NORMAL ACCOMODATION, PERRL. absent: Fixed, Irregular, Unequal - ENT Exam ENT Exam: Mucous Membranes Moist - Neck Exam Neck exam: Positive for: Full Rom. Negative for: Lymphadenopathy, Thyromegaly - Respiratory Exam Respiratory Exam: Decreased Breath Sounds (mildly decreased breath sounds in all walker auscultated, but otherwise CTAB), Clear to Auscultation Bilateral, NORMAL BREATHING PATTERN. absent: Accessory Muscle Use, Chest Wall Tenderness, Rales, Rhonchi, Wheezes - Cardiovascular Exam Cardiovascular Exam: REGULAR RHYTHM, RRR, +S1, +S2. absent: Bradycardia, Tachycardia, Irregular Rhythm, JVD - GI/Abdominal Exam GI & Abdominal Exam: Normal Bowel Sounds, Soft, Tenderness (mild tenderness at LLQ). absent: Diminished Bowel Sounds, Firm, Guarding, Pulsatile Mass - Extremities Exam Extremities exam: Positive for: normal inspection, pedal pulses present. 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 She appears to be suffering from failure to thrive, needs workup to rule out acute cord compression requiring emergent intervention. Plan: Stage IV small cell lung cancer s/p XRT and chemotherapy w/ carboplatin and etoposide Poor oral intake Dehydration Failure to thrive Asymmetrical weakness Spinal cord compression - r/o -Improved weakness since admission, may be secondary to steroids with chemo vs improved PO intake -Solumedrol 80mg daily x2 days for possible post-chemo nausea/emesis (today day 2) -Given asymmetrical weakness, concern for [employer] event, Neuro consulted, appreciate all recs; CT head negative, thoracic MRI w/ and w/o contrast negative for -CT neck/chest/abd/pelvis notable for slight progression mediastinal adenopathy , significant progression metastatic disease to liver, and increasing retroperitoneal adenopathy of the periportal and upper IVC regions -Pulm consulted, appreciate all recs -Given extent of disease, Palliative service consulted; patient did not want to speak with them this AM, will recheck later -Famvir 500mg PO BID for neutopenia precautions; given risk of herpetic rxns in immunosuppressed pts on chemo -Last dose bisphosphonate given in May, due for another, given Aredia 90mg x1 yesterday -PT pending, may need acute rehab as per neuro -pending MRI brain Case reviewed and discussed at length with attending, Dr. Puente.
--- NOTE | 2017-07-13 13:33 | MRI ---
PROCEDURE: MR THORACIC SPINE WITHOUT CONTRAST HISTORY: weakness COMPARISON: 05/20/2017 MRI TECHNIQUE: Multiecho multiplanar sequences were performed through the thoracic spine without the use of intravenous contrast. The patient could not tolerate any additional scanning with contrast FINDINGS: ALIGNMENT: Normal thoracic spinal alignment. Normal thoracic kyphosis. VERTEBRA: Vertebral body height are preserved. MARROW: Diffuse metastatic disease is seen involving every visualize vertebral body. Despite the extent of disease there is no epidural invasion or compression deformity. PARASPINAL SOFT TISSUES: Unremarkable. CORD: Unremarkable thoracic cord. No volume loss, signal abnormality or syrinx. DISCS: No disc herniation, spinal canal stenosis, or neuroforaminal narrowing. OTHER FINDINGS: Lung lesions and mediastinal adenopathy IMPRESSION: Diffuse metastatic disease showing no significant change. No vertebral compression deformities or epidural invasion. No cord compression
--- NOTE | 2017-07-13 13:41 | MRI ---
PROCEDURE: MR LUMBAR SPINE WITHOUT CONTRAST HISTORY: weakness COMPARISON: None available. TECHNIQUE: Multiecho multiplanar sequences were performed through the lumbar spine without the use of intravenous contrast. FINDINGS: Normal lumbar lordosis. Vertebral body heights are preserved. Diffusely abnormal bone marrow signal intensity is seen consistent with diffuse metastatic disease. This is also seen in the thoracic spine. Conus medullaris unremarkable at the level of L1 Paraspinal soft tissues are unremarkable. T12-L1: No disc herniation, spinal canal stenosis or neural foraminal narrowing. L1-2: Disc degeneration and bulging without stenosis L2-3: Disc degeneration and bulging without stenosis L3-4: Disc degeneration and disc bulging with bilateral foraminal stenosis L4-5: Severe disc bulge with severe bilateral foraminal stenosis. Facet arthropathy left greater than right L5-S1: There is a soft tissue mass in the right L5 neural foramen which may represent tumor invasion. This could represent a separate neurofibroma or schwannoma. There is severe bilateral foraminal stenosis OTHER FINDINGS: None. IMPRESSION: Diffuse metastatic disease. See comments
[2017-07-13] MEDS ORDERED: Sodium Chloride 0.9% 1,000 ML IV SCH (13:48)
[2017-07-13] MEDS ORDERED: Morphine 2 mg/ml ISec IVP ONE (14:02)
--- NOTE | 2017-07-13 14:44 | PN ---
DATE: 07/13/2017 NEUROLOGY FOLLOWUP CHIEF COMPLAINT: Followup for generalized weakness. SUBJECTIVE: Patient seen and examined at bedside, moving her legs much more better than initially. Her MRI of thoracic spine was done, which showed diffuse metastatic disease showing no significant change compared to the last MRI and there is no vertebral compression deformities or epidural invasion and no cord compression. Her initial CAT scan of the head show no acute intracranial abnormalities. PAST MEDICAL HISTORY: History of type 2 diabetes mellitus, depression, history of stage IV small cell carcinoma with mets to the thoracic spine and liver, hypertension and major depressive disorder. REVIEW OF SYSTEMS: A 14-point review of systems negative except as per the HPI. FAMILY HISTORY: Noncontributory. SOCIAL HISTORY: No illicit drug use, smoking or EtOH abuse. ALLERGIES: SULFA MEDICATIONS. PHYSICAL EXAMINATION: VITAL SIGNS: Temperature 97, pulse rate 70, blood pressure 142/68, respiratory rate 18, oxygen saturation 97% on room air. GENERAL: Patient is sitting up in bed, in no acute distress. HEENT: Head is atraumatic, normocephalic. PERRLA. Extraocular muscles intact. NECK: Supple. No JVD, no adenopathy noted. LUNGS: Clear to auscultation. No adventitious sounds. HEART: S1, S2, normal rate and rhythm. No murmurs, rubs or gallops. ABDOMEN: Soft, nontender, nondistended. Bowel sounds present. EXTREMITIES: No clubbing, no cyanosis. Peripheral pulses 2+ felt bilaterally. NEUROLOGIC: Patient is alert, oriented to person, place, month and year. Speech is fluent without any errors. Motor exam: Moves all extremities equally. No pronator drift seen. Sensory exam: Decreased light touch and pinprick up to the calves bilaterally. Decreased vibration to the toes. DTRs are 2+ throughout, and absent at the knees. Coordination: [id number] intact. No dysmetria noted. Gait is deferred for now. LABORATORY DATA: Sodium is 143, potassium 3, chloride 109, carbon dioxide 27, BUN of 11, creatinine of 0.4, random glucose 243. Calcium is 7.9. ASSESSMENT AND PLAN: This is a 72-year-old woman with history of depression, history of type 2 diabetes mellitus, diabetic peripheral neuropathy, stage IV small cell lung cancer with metastasis to the thoracic spine and liver, status post radiation therapy and chemotherapy with carboplatin and etoposide presented with generalized weakness, poor oral intake, dehydration, failure to thrive, asymmetrical lower extremity weakness. Currently, she is able to lift both legs without any difficulty for more than 10 seconds. Her MRI of thoracic spine with and without contrast showed diffuse metastatic disease and no significant change from her prior MRI and there are no vertebral compression deformities and no cord compression. At this time, her generalized weakness is likely secondary to deconditioned state, diabetic peripheral neuropathy, superimposed on underlying thoracic spine metastasis from underlying metastatic cancer from the lung and she is very deconditioned. RECOMMENDATIONS: At this time, recommend: 1. Physical therapy, occupational therapy and likely acute rehab. 2. Continue to keep blood sugar between 140 to 180. 3. Monitor electrolytes and correct accordingly. 4. Continue with oncology followup. Once again thank you for this followup. Francisco Li MD
--- NOTE | 2017-07-13 15:32 | PN ---
DATE: 07/13/2017 PULMONARY PROGRESS NOTE REFERRING PHYSICIAN: Rudy Puente MD. SUBJECTIVE: She is lying in the bed, sleepy, arousable, feels little better. Decreased cough. Decreased shortness of breath. No chest pain. Mild back pain. No dysuria. No leg pain. No leg swelling. OBJECTIVE: GENERAL: In no acute distress. VITAL SIGNS: Temperature is 98, heart rate is 70, respiratory rate is 20, blood pressure 170/72, pulse ox 93% on 2 L nasal cannula. HEENT: Moist mucous membrane. Crowded airway. Mallampati score is 4. NECK: Thick neck. LUNGS: Have a few scattered rhonchi. HEART: S1 and S2. ABDOMEN: Soft, nontender. No organomegaly. EXTREMITIES: No edema. NEUROLOGIC: Sleepy, arousable. Follows simple command. MEDICATIONS: She is on Ambien 5 mg at bedtime, also on Brovana inhaled twice a day, Carafate 1 g twice a day, Claritin 10 mg daily, Dulcolax 5 mg daily p.r.n., insulin coverage, lidocaine patch at affected area, Lovenox 30 mg subcu daily, milk of magnesia p.r.n. basis, morphine 2 mg every 4 hours p.r.n., morphine extended release 50 mg every 12 hours, also morphine immediate release 50 mg every 6 hours p.r.n., Nicoderm patch daily, ketoconazole at affected area, nystatin oral suspension four times daily, Pepcid 40 mg daily, Pulmicort inhaled twice a day, Singulair 10 mg daily, IV fluid normal saline 150 ml/hours, Tylenol p.r.n., Xanax 0.25 mg twice a day, Zofran p.r.n. basis. LABORATORY DATA: Shows hemoglobin 8.6, hematocrit 27.5, WBC 10.7, platelet is 164. Sodium 143, potassium 3.0, chloride 109, bicarbonate 27, BUN 11, creatinine 0.4, glucose is 233, calcium is 7.9, phosphorus 2.54, magnesium is 2.2, AST 95, AST 71, alk phos is 399. Albumin is 2.7. Microbiology: Blood culture negative. Urine culture has multiple organisms. Has a thoracic spine MRI done, which shows diffuse metastatic disease showing no significant changes. No vertebral compression deformity or epidural invasion. No cord compression. Also has a lumbar spine MRI done, which also shows diffuse metastatic disease. IMPRESSION AND PLAN: Metastatic lung cancer, which is a progressive disease involving liver, bones; retroperitoneal lymphadenopathy; had a radiation therapy to spine; received one cycle of chemotherapy; chronic obstructive lung disease; anemia; dehydration; hypokalemia. There may be component of sleep apnea syndrome, anxiety disorder. Pulmonary point of view, she is doing okay. We will continue nebulizer treatment. Continue antibiotics. Gastric prophylaxis, deep venous thrombosis prophylaxis. We will decrease IV fluid to 100 mL/hour. Need to use precaution with the therapy with extensive spine involvement. May need spine sport if started ambulating. Follow up labs in the morning. Thank you and we will follow with you. Robert Eastman MD
[2017-07-13] MEDS: POTASSIUM CHLORIDE IV SCH (17:43)
[2017-07-13] MEDS: SODIUM CHLORIDE 0.9% IV SCH (17:43)
[2017-07-13] MEDS: Potassium & Sodium Phosphate PO SCH (17:45)
[2017-07-13] MEDS: Morphine 15 mg Immediate Release Tab PO PRN (17:45)
[2017-07-13] MEDS: Lidocaine 5% Patch TD SCH (21:43)
--- NOTE | 2017-07-14 03:22 | CON ---
DATE: 07/13/[address] Yosef Reis. Family physician is Dr. Zev Vail. REFERRING MD is Dr. Reis. REASON FOR CONSULTATION: Evaluation of a patient well known to me from previous hospitalizations, who presents with hypokalemia. HISTORY OF PRESENT ILLNESS: Patient is a 72-year-old white female with a history of small cell cancer of the lung with mets to bone, liver and lung. Patient has had been receiving chemotherapy. She has a history of hyponatremia secondary to SIADH. History of multiple electrolyte abnormalities. Past history of influenza and UTI. History of NIDDM, hypertension. Anemia and pancytopenia related to chemotherapy. Patient was admitted to the hospital with dehydration, failure to thrive post chemotherapy. Patient had responded nicely to IV fluid hydration. She presently has a potassium level of 3.0, repeated post supplements is 3.9. Patient's sodium on admission had remained stable at 138 to 143. BUN and creatinine are normal. Patient is in the process of undergoing MRI studies for evaluation of the extent of her metastatic disease. We are asked to evaluate the patient for her electrolyte-related issues. Presently , patient does not have stomatitis and does not require hyperalimentation. IV fluids have been decreased with increasing p.o. intake. PAST MEDICAL HISTORY: Significant for SIADH, electrolyte abnormalities, metastatic small cell lung cancer with mets to bone, liver and lung. Past history of UTI, influenza, history of NIDDM, anemia and hypertension. MEDICATIONS AT HOME: Include that of Santyl, potassium, Maalox, Fleet enema, Khedezla, Xanax, Lidoderm patch, Tylenol p.r.n., Dulcolax, Claritin, Lidoderm, Pepcid, Lovenox, Zofran, Nystatin, NicoDerm CQ, morphine p.r.n., Singulair, Ambien, Carafate, sliding scale insulin and alprazolam. ALLERGIES: PATIENT IS ALLERGIC TO SULFA. CURRENT MEDICATIONS IN HOSPITAL: Include that of Ambien, Brovana, Carafate, Claritin, Dulcolax, insulin, Lidoderm, Lovenox, milk of magnesia, morphine, NicoDerm CQ, Nizoral, Nystatin oral suspension, Pepcid, Pulmicort, Singulair, normal saline at 75 mL an hour, K tabs, Tylenol, Xanax, and Zofran p.r.n. SOCIAL HISTORY: History of cigarette smoking. No history of alcohol use. FAMILY HISTORY: Noncontributory and reviewed in old charts. REVIEW OF SYSTEMS: GENERAL: Patient states that she continues to have a weight loss secondary to loss of appetite. ENT: Denies any hearing or visual problems. PULMONARY: No shortness of breath. Past history of recent pneumonia. CARDIAC: No history of ASHD. No chest pain or palpitations. GASTROINTESTINAL: No abdominal pain, nausea or vomiting. No constipation, no diarrhea. GENITOURINARY: No history of chronic kidney disease. Past history of UTIs. GYNECOLOGIC: Postmenopausal. ENDOCRINE: History of diabetes without complications. MUSCULOSKELETAL: No complaints. NEUROLOGIC: No history of CVA, TIA, seizures or syncope. HEMATOLOGY AND ONCOLOGY: History of anemia and pancytopenia, in part secondary to chemotherapy for her small cell carcinoma of her lung. PSYCHIATRIC: Psychiatric history is negative. PHYSICAL EXAMINATION: GENERAL: Patient is currently seen on 3R. She is sitting up in bed. She appears to be in no acute distress. VITAL SIGNS: Blood pressures have fluctuated from 142 to 170 systolic, diastolic have been normal in 68 to 85 range. Heart rate 70. Respiratory rate is 20 with a temperature of 97 degrees. HEENT: Shows her be normocephalic, atraumatic. Conjunctivae are pale. Sclerae nonicteric. Pupils are equal, reactive to light and accommodation. Extraocular muscles are intact. Posterior pharynx has no ulcerations or sores. NECK: Supple. No neck vein distention, no thyromegaly. No lymphadenopathy. No bruits. CHEST: Clear to auscultation and percussion with scattered rhonchi bilaterally. No rales, no wheezing. She has a port in her right chest wall. CARDIOVASCULAR: Normal S1, S2 without murmurs, rubs or gallops. ABDOMEN: Soft. Bowel sounds normal. No rebound, no guarding. No masses. No tenderness over her right upper quadrant. EXTREMITIES: Show no cyanosis, clubbing or edema. Ankles are, however, puffy. Distal lower extremity pulses are 1 to 2+. BACK: Shows no CVAT and no tenderness on her lower lumbar spine area. NEUROLOGIC: Shows her be alert, oriented x3 with no gross focal motor or sensory deficits noted. LABORATORY DATA AND IMAGING STUDIES: Admitting chest x-ray shows multiple infiltrates related to her diagnosis of small cell cancer. Head CT scan was negative. Neck, chest, abdominal and pelvic CT scan positive for progression of mediastinal adenopathy, significant progression of metastatic disease to the liver. Increased retroperitoneal adenopathy in periportal and upper IVC region. All consistent with worsening of her small cell carcinoma of the lung. MRI of her thoracic spine and lumbar spine show metastatic disease to the spine diffusely. Admitting EKG shows a normal sinus rhythm. Labs, CBC, white blood cell count 10.7, hemoglobin down from 9.3 on admission to 8.6. Platelet count is normal at 164,000. Coags, PT 14 with an INR of 1.22, PTT 24.8. Admitting blood gas showed a pH of 7.37, pO2 of 103 and a pCO2 of 48. Chemistries show sodium levels, which were ranged from 138 to 143, which is excellent for her. Potassium level has dropped from 4 to 3; supplemented, it is 3.9. BUN is 11 with a creatinine of 0.4. Glucose is 243. Calcium 7.9, corrects to normal for an albumin of 2.7. Phosphorus level was low at 2.4. Magnesium level normal at 2.2. Liver enzymes remain elevated. Bilirubin is normal. Albumin level again is 2.7 with total protein of 5.5. Urines were unremarkable with the exception of glucose in the urine. Microbiology, urine culture is 50,000 to 100,000 colonies per high-power field with multiple species suggesting not a clean-catch. Blood cultures negative at 24 hours. ASSESSMENT: 1. Small-cell cancer status post chemotherapy. Presently, patient is not neutropenic or thrombocytopenic. She has extensive metastatic disease to bone, liver and lung. Palliative care was suggested to the patient. She is currently going back for MRI studies and further imaging to assess the severity of the metastatic disease. 2. History of hyponatremia in the past. Patient has had the syndrome of syndrome of inappropriate antidiuretic hormone secretion in the setting of small cell cancer of the lung. Presently, her sodium levels are normal. 3. Mild hypokalemia with hypophosphatemia. Agree with supplementing both potassium and phosphorus. Patient may receive Neutra-Phos. She already has received K tabs earlier today. Repeat potassium level was 3.9. 4. History of non-insulin dependent diabetes mellitus. Patient is currently on sliding scale insulin. In the outpatient setting, patient had been on insulin as well. 5. Past history of anemia. 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 This is not an issue presently. 6. History of hypertension. Previous admission, patient was seen and we discussed the possibility of adding low dose of a calcium channel dameon prior to discharge. Her blood pressure appeared to have normalized. At present, systolic blood pressures are elevated. I will add low-dose Norvasc to help better control her systolic elevations. PLAN: 1. Agree with potassium supplements. 2. I will also give patient phosphorus supplements in light of her phosphorus level of 2.4. 3. Presently, the patient does not require hyperalimentation. 4. I will decrease her IV fluid hydration as oral intake appears to be adequate. I will add potassium to her IV fluids. 5. Perhaps IV fluids can be discontinued by tomorrow. 6. Start low-dose calcium channel dameon therapy for elevations of her systolic blood pressure. 7. Agree with consultation for palliative care in light of her worsening metastatic small cell cancer as evidenced by imaging studies. 8. Continue to monitor labs on a regular basis during hospitalization. 9. Follow accurate Is and Os. Thank you for letting me partake and share in the care of your patient. Delta Riley MD
[2017-07-14] MEDS: Sucralfate 1 gm/10 ml Oral Susp UD PO SCH ×2 (05:14→18:07)
[2017-07-14 06:57] LABS: BASO # 0.01 K/mm3 (0.0-2.0); BASO % 0.1 % (0.0-3.0); EOS % 0.1 % (1.5-5.0); GRAN # 13.72 (1.4-6.5); GRAN % 94.1 % (50.0-68.0); LYMPH # 0.6 (1.2-3.4); LYMPH % 4.3 % (22.0-35.0); MEAN CELL VOLUME 96.4 fl (80.0-105.0); MEAN CORPUSCULAR HEMOGLOBIN 29.8 pg (25.0-35.0); MEAN CORPUSCULAR HGB CONC 30.9 g/dl (31.0-37.0); MEAN PLATELET VOLUME 9.7 fl (7.0-11.0); MONO # 0.2 (0.1-0.6); MONO % 1.4 % (1.0-6.0); PLATELET COUNT 188 10^3/uL (120.0-450.0); RBC 3.02 10^6/uL (3.5-6.1); RED CELL DISTRIBUTION WIDTH 20.8 % (11.5-14.5); WHITE BLOOD COUNT 14.6 10^3/ul (4.5-11.0)
[2017-07-14] MEDS: Arformoterol 15 mcg/2 ml Inh Sol IH SCH ×2 (07:09→19:17)
[2017-07-14] MEDS: Budesonide 0.5 mg/2 ml Inhal Susp UD IH SCH ×2 (07:09→19:17)
[2017-07-14 07:47] LABS: ALBUMIN 2.9 g/dL (3.0-4.8); ALT/SGPT 86 U/L (7-56); AST/SGOT 93 U/L (14-36); BLOOD UREA NITROGEN 9 mg/dL (7-21); CALCIUM 7.8 mg/dL (8.4-10.5); GFR AFRICAN-AMERICAN > 60; GFR NON-AFRICAN AMERICAN > 60
[2017-07-14] MEDS: Insulin Reg-MEDIUM-Coverage SC SCH ×5 (08:09→22:25)
[2017-07-14 08:15] LABS: NEUTROPHIL 89 % (50.0-70.0)
[2017-07-14 08:16] LABS: BAND 11 % (0-2); PLATELET ESTIMATE NORMAL (NORMAL)
[2017-07-14] MEDS ORDERED: Potassium Phosphate 15 MMOLE in Dextrose 5% In Water 250 ML IVPB ONE (08:58)
[2017-07-14] MEDS: Potassium Chloride 40 mEq/30 ml LIQ UD PO ONE ×2 (09:35→09:36)
[2017-07-14] MEDS: Potassium & Sodium Phosphate PO SCH ×2 (09:36→18:07)
--- NOTE | 2017-07-14 10:20 | CP.PCM.PN ---
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 Of concern, she was unable to self transfer from her transport to the infusion bed , and required 2 person assist, which is a significant decline from the level she showed prior to her discharge from the TCU. She appears to be suffering from failure to thrive, also requiring workup to rule out acute cord compression requiring emergent intervention. Patient seen at bedside today, reports improvement of symptoms as compared to level at presentation yesterday. Thoracic and Lumbar MRI yesterday negative for cord compression, pending brain MRI with/without contrast to assess indeterminate lesion seen on prior CT head. Home with services vs [facility] as per PT. Objective - Vital Signs/Intake and Output Vital Signs (last 24 hours): Temp Pulse Resp BP Pulse Ox 98.4 F 84 19 161/85 H 94 L 07/14/17 09:51 07/14/17 09:51 07/14/17 09:51 07/14/17 09:51 07/14/17 09:51 Intake and Output: 07/14/17 07/14/17 06:59 18:59 Intake Total 1800 Output Total 1400 Balance 400 - Medications Medications: Current Medications Acetaminophen (Tylenol 325mg Tab) 650 mg PO Q6H PRN PRN Reason: general discomfort Alprazolam (Xanax) 0.25 mg PO BID [facility] Last Admin: 07/13/17 17:44 Dose: 0.25 mg Amlodipine Besylate (Norvasc) 5 mg PO DAILY [facility] Last Admin: 07/14/17 09:36 Dose: 5 mg Arformoterol Tartrate (Brovana) 15 mcg IH [id number] [facility] Last Admin: 07/14/17 07:09 Dose: 15 mcg Bisacodyl (Dulcolax) 5 mg PO DAILY PRN PRN Reason: Constipation Budesonide (Pulmicort Respules) 0.5 mg IH [id number] [facility] Last Admin: 07/14/17 07:09 Dose: 0.5 mg Enoxaparin Sodium (Lovenox) 30 mg SC DAILY [facility] PRN Reason: Protocol Last Admin: 07/13/17 10:03 Dose: 30 mg Famotidine (Pepcid) 40 mg PO [facility] Last Admin: 07/13/17 21:40 Dose: 40 mg Potassium Chloride 15 meq/ (Sodium Chloride) 1,007.5 mls @ 60 mls/hr IV .[id number] [facility] Last Admin: 07/13/17 17:43 Dose: 60 mls/hr Potassium Phosphate 15 mmole/ (Dextrose) 255 mls @ 42.5 mls/hr IVPB ONCE ONE Stop: 07/14/17 14:57 Insulin Human Regular (Humulin R Med) 0 units SC ACHS [facility] PRN Reason: Protocol Last Admin: 07/14/17 08:09 Dose: Not Given Ketoconazole (Nizoral) 0 gm TOP BID [facility] Last Admin: 07/13/17 17:45 Dose: 1 applic Lidocaine (Lidoderm) 2 ea TD [facility] Last Admin: 07/13/17 21:43 Dose: 2 ea Loratadine (Claritin) 10 mg PO DAILY [facility] Last Admin: 07/13/17 10:00 Dose: 10 mg Magnesium Hydroxide (Milk Of Magnesia) 15 ml PO DAILY PRN PRN Reason: Indigestion / Heartburn Montelukast Sodium (Singulair) 10 mg PO [facility] Last Admin: 07/13/17 21:40 Dose: 10 mg Morphine Sulfate (Morphine Extended Release Tab) 15 mg PO Q12 [facility] Last Admin: 07/13/17 21:40 Dose: 15 mg Morphine Sulfate (Morphine) 2 mg IVP Q4H PRN PRN Reason: Pain, severe (8-10) Last Admin: 07/12/17 15:00 Dose: 2 mg Morphine Sulfate (Morphine Immediate Release Tab) 15 mg PO Q6H PRN PRN Reason: Pain, moderate (4-7) Last Admin: 07/13/17 17:45 Dose: 15 mg Nicotine (Nicoderm Cq) 1 patch TD DAILY [facility] Last Admin: 07/13/17 10:01 Dose: 1 patch Nystatin (Nystatin Oral Susp) 5 ml PO QID [facility] Last Admin: 07/13/17 21:40 Dose: 5 ml Ondansetron HCl (Zofran Inj) 4 mg IVP Q4H PRN PRN Reason: Nausea/Vomiting Potassium Phos/Sodium Phos (Neutra-Phos) 1 pkt PO BID [facility] Last Admin: 07/14/17 09:36 Dose: 1 pkt Sucralfate (Carafate Oral Susp) 1 gm PO 0600,1600 [facility] Last Admin: 07/14/17 05:14 Dose: 1 gm Zolpidem Tartrate (Ambien) 5 mg PO HS [facility] PRN Reason: Protocol Last Admin: 07/13/17 22:00 Dose: Not Given - Labs Labs: 07/14/17 06:00 07/14/17 06:00 PT 14.0 SECONDS (9.4-12.5) H 07/11/17 19:53 INR 1.22 (0.93-1.08) H 07/11/17 19:53 APTT 24.8 Seconds (25.1-36.5) L 07/11/17 19:53 - Additional Findings Additional findings: - Constitutional Appears: Non-toxic, No Acute Distress - Head Exam Head Exam: ATRAUMATIC, NORMAL INSPECTION, NORMOCEPHALIC - Eye Exam Eye Exam: EOMI, Normal appearance, PERRL. absent: Conjunctival injection, Scleral icterus Pupil Exam: NORMAL ACCOMODATION, PERRL. absent: Fixed, Irregular, Unequal - ENT Exam ENT Exam: Mucous Membranes Moist - Neck Exam Neck exam: Positive for: Full Rom. Negative for: Lymphadenopathy, Thyromegaly - Respiratory Exam Respiratory Exam: Decreased Breath Sounds (mildly decreased breath sounds in all walker auscultated, but otherwise CTAB), Clear to Auscultation Bilateral, NORMAL BREATHING PATTERN. absent: Accessory Muscle Use, Chest Wall Tenderness, Rales, Rhonchi, Wheezes - Cardiovascular Exam Cardiovascular Exam: REGULAR RHYTHM, RRR, +S1, +S2. absent: Bradycardia, Tachycardia, Irregular Rhythm, JVD - GI/Abdominal Exam GI & Abdominal Exam: Normal Bowel Sounds, Soft. absent: Tenderness, Diminished Bowel Sounds, Firm, Guarding, Pulsatile Mass - Extremities Exam Extremities exam: Positive for: normal inspection, pedal pulses present. 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 She appears to be suffering from failure to thrive, needs workup to rule out acute cord compression requiring emergent intervention. Plan: Stage IV small cell lung cancer s/p XRT and chemotherapy w/ carboplatin and etoposide Poor oral intake - resolved Dehydration - resolved Failure to thrive - improving Asymmetrical weakness - improving R/o Spinal cord compression - not present on thoracic or lumbar MRI -Improved weakness since admission, may be secondary to steroids with chemo vs improved PO intake -Given asymmetrical weakness, concern for [employer] event, Neuro consulted, appreciate all recs; CT head negative, thoracic MRI w/ and w/o contrast negative for compression, pending MRI brain -CT neck/chest/abd/pelvis notable for slight progression mediastinal adenopathy , significant progression metastatic disease to liver, and increasing retroperitoneal adenopathy of the periportal and upper IVC regions -Pulm consulted, appreciate all recs -Given extent of disease, Palliative service consulted, appreciate their assistance -Famvir 500mg PO BID for neutopenia precautions; given risk of herpetic rxns in immunosuppressed pts on chemo -Aredia 90mg IVPB x1 given on 07/12/17 -seen by PT, [facility] vs home with services, indicates that patient has expressed home as preference -MRI brain obtained, pending official read Case reviewed and discussed at length with attending, Dr. Puente.
[2017-07-14] MEDS ORDERED: Gadodiamide 287 MG/ML VIAL (15ML) IV ONE (11:20)
[2017-07-14] MEDS: Enoxaparin 30 mg Syringe SC SCH (11:40)
[2017-07-14] MEDS: Morphine 15 mg SR Tab PO SCH ×2 (12:05→22:22)
[2017-07-14] MEDS: Nystatin 100,000 Units/ml Oral Susp 5 ml UD PO SCH ×4 (12:06→22:21)
--- NOTE | 2017-07-14 13:11 | PN ---
DATE: SUBJECTIVE: The patient is currently en route to have followup MRI studies. She remains on IV fluid hydration with potassium chloride. Her phosphorus level was low this morning. Her potassium level has corrected into the low normal range. MEDICATIONS: Medication list reviewed. The patient is on Ambien, Brovana, Carafate, Claritin, Dulcolax, insulin, Lidoderm, Lovenox, milk of magnesia, p.r.n. morphine, Neutra-Phos, NicoDerm CQ, Nizoral, Norvasc, nystatin, IV fluid with sodium chloride, K-Phos rider, Pulmicort, Singulair, Tylenol p.r.n., Xanax, and Zofran. OBJECTIVE: INTAKE/OUTPUT: 1800 in, 1400 out. VITAL SIGNS: Blood pressure ranging from 135-161 systolic, diastolic ranging from 85-87. Temperature 98.4, pulse 84, respiratory rate 19. HEENT: Shows her to be normocephalic, atraumatic. Conjunctivae are pale. Sclerae are nonicteric. NECK: Supple. No neck vein distention. CHEST: Clear to auscultation and percussion with scattered rhonchi bilaterally. She has a port in her right chest wall. CARDIOVASCULAR: Regular rate and rhythm without murmurs, rubs or gallops. ABDOMEN: Soft. Bowel sounds normal. No rebound or guarding. No masses. No tenderness over her right upper quadrant. EXTREMITIES: No cyanosis, clubbing or edema. LABORATORY DATA AND IMAGING: CBC today white blood cell count 14.6, hemoglobin 9, platelet count is 188,000. Chemistries today show normal electrolytes. Potassium is slightly lower at 3.6. Sodium is 142. BUN 9 with a creatinine of 0.4. Glucose 133. Calcium 7.8 with an albumin of 2.9, corrects to normal. Phosphorus is low at 1.6. Magnesium level is 2.2. Liver enzymes are mildly elevated. Bilirubin is normal. Microbiology: Blood cultures negative 48 hours. Urine cultures show multiple species, not a clean-catch. ASSESSMENT: 1. Small cell cancer of the lung. The patient has extensive metastatic disease to the bone, liver and lung. She is returning for further assess the severity of her metastatic disease. Palliative care was suggested to the patient. 2. Past history of hyponatremia. The patient has had the syndrome of inappropriate antidiuretic hormone secretion in the setting of small cell cancer of the lung. Presently, sodium levels are normal. 3. Mild hypokalemia with hypophosphatemia. The patient has been receiving potassium supplements. She did receive K-Phos rider. She is receiving Neutra-Phos. I will switch her IV fluids over to K-Phos from KCl. 4. History of noninsulin-dependent diabetes mellitus. The patient is on sliding scale insulin. In the outpatient, the patient also had been receiving insulin. 5. History of anemia, pancytopenia secondary to chemotherapy. The patient remains mildly anemic. White blood cell count is elevated. Platelet count is normal. 6. History of hypertension. Previous admissions, the patient has had mild elevations of her blood pressure. It does not appear that she was discharged to home on blood pressure medication. The patient had been started on Norvasc by me yesterday. We will continue to monitor her blood pressure. PLAN 1. Continue potassium supplements. 2. We will substitute K-Phos and her IV fluids in place of KCl. 3. Presently, the patient does not require any hyperalimentation as she does not have any evidence of stomatitis from recent chemotherapy. 4. Perhaps discontinue IV fluids tomorrow, if phosphorus level corrects. 5. Continue calcium channel dameon therapy for mild blood pressure elevation. 6. Followup results of her imaging studies to assess the extent of her metastatic disease. The initial studies showed progression of mediastinal adenopathy, significant progression of metastatic disease to the liver. Increased retroperitoneal adenopathy periportal and upper IVC region. MRI of her thoracic spine and lumbar spine showed extensive metastatic disease to the spine. 7. Agree with palliative care evaluation. Delta Riley MD
--- NOTE | 2017-07-14 13:15 | MRI ---
PROCEDURE: MRI BRAIN WITH AND WITHOUT CONTRAST HISTORY: weakness, pts with small cell lung cancer COMPARISON: 05/20/2017 MRI TECHNIQUE: Multiplanar, multisequence MR images of the brain were obtained with and without intravenous contrast enhancement. 15 cc of Omniscan FINDINGS: HEMORRHAGE: None DWI: No evidence of an acute or early subacute infarction. BRAIN PARENCHYMA: No mass,mass effect or edema. No atrophy or chronic microvascular ischemic changes. ENHANCEMENT: There is no evidence of metastatic disease. The small enhancing focus seen in the right frontal lobe on the previous study is unchanged. This most likely represents a prominent vein. VENTRICLES: Unremarkable. No hydrocephalus. CRANIUM: Unremarkable. ORBITS: Grossly unremarkable. PARANASAL SINUSES/MASTOIDS: Clear VASCULAR SYSTEM: Skull base flow voids intact. OTHER FINDINGS: None . IMPRESSION: No evidence of metastatic disease
--- NOTE | 2017-07-14 13:23 | MRI ---
PROCEDURE: MR CERVICAL SPINE WITH AND WITHOUT CONTRAST HISTORY: ? CORD COMPRESSION COMPARISON: None available. TECHNIQUE: Multiecho multiplanar sequences were performed through the cervical spine with and without the use of intravenous contrast. 15 cc of Omniscan FINDINGS: Normal lordotic curvature. Craniocervical junction unremarkable. Vertebral body heights preserved. There is diffusely abnormal bone marrow signal intensity consistent with metastatic disease. There is heterogeneous enhancement. There is a small amount of epidural invasion dorsal to the thecal sac at the C5-6 level. This produces mild narrowing of the spinal canal with no evidence of cord compression Normal cervical cord. No paraspinal abnormality. C2-3: No disc herniation, spinal canal stenosis or neural foraminal narrowing. C3-4: No disc herniation, spinal canal stenosis or neural foraminal narrowing. C4-5: No disc herniation, spinal canal stenosis or neural foraminal narrowing. C5-C6: There is disc degeneration with foraminal stenosis. There is a small amount of epidural invasion dorsal to the thecal sac with mild narrowing of the spinal canal. C6-C7: Bilateral foraminal stenosis C7-T1: No disc herniation, spinal canal stenosis or neural foraminal narrowing. OTHER FINDINGS: None. IMPRESSION: Diffuse bony metastatic disease. A small amount of epidural invasion dorsal to the thecal sac at C5-6. No evidence of cord compression
[2017-07-14] MEDS: POTASSIUM CHLORIDE IV SCH (14:28)
[2017-07-14] MEDS: SODIUM CHLORIDE 0.9% IV SCH (14:28)
--- NOTE | 2017-07-14 15:26 | CP.PCM.PN ---
Subjective - Date & Time of Evaluation Date of Evaluation: 07/14/17 Time of Evaluation: 15:00 - Subjective Subjective: DATE: 07/14/2017 NEUROLOGY FOLLOWUP CHIEF COMPLAINT: Followup for generalized weakness. SUBJECTIVE: Patient seen and examined at bedside, moving her legs much more better than initially. Her MRI of thoracic spine was done, which showed diffuse metastatic disease showing no significant change compared to the last MRI and there is no vertebral compression deformities or epidural invasion and no cord compression. MRI Brain showed no acute abnormality. MRI C spine/L spine showed diffuse metastatic disease, no cord compression. Continue with Oncology management and PT. PAST MEDICAL HISTORY: History of type 2 diabetes mellitus, depression, history of stage IV small cell carcinoma with mets to the thoracic spine and liver, hypertension and major depressive disorder. REVIEW OF SYSTEMS: A 14-point review of systems negative except as per the HPI. FAMILY HISTORY: Noncontributory. SOCIAL HISTORY: No illicit drug use, smoking or EtOH abuse. ALLERGIES: SULFA MEDICATIONS. PHYSICAL EXAMINATION: VITAL SIGNS: Reviewed. GENERAL: Patient is sitting up in bed, in no acute distress. HEENT: Head is atraumatic, normocephalic. PERRLA. Extraocular muscles intact. NECK: Supple. No JVD, no adenopathy noted. LUNGS: Clear to auscultation. No adventitious sounds. HEART: S1, S2, normal rate and rhythm. No murmurs, rubs or gallops. ABDOMEN: Soft, nontender, nondistended. Bowel sounds present. EXTREMITIES: No clubbing, no cyanosis. Peripheral pulses 2+ felt bilaterally. NEUROLOGIC: Patient is alert, oriented to person, place, month and year. Speech is fluent without any errors. Motor exam: Moves all extremities equally. No pronator drift seen. Sensory exam: Decreased light touch and pinprick up to the calves bilaterally. Decreased vibration to the toes. DTRs are 2+ throughout, and absent at the knees. Coordination: Muphic-lg-[id number] intact. No dysmetria noted. Gait is deferred for now. LABORATORY DATA: Reviewed, ASSESSMENT AND PLAN: This is a 72-year-old woman with history of depression, history of type 2 diabetes mellitus, diabetic peripheral neuropathy, stage IV small cell lung cancer with metastasis to the thoracic spine and liver, status post radiation therapy and chemotherapy with carboplatin and etoposide presented with generalized weakness, poor oral intake, dehydration, failure to thrive, asymmetrical lower extremity weakness. Currently, she is able to lift both legs without any difficulty for more than 10 seconds. Her MRI of thoracic spine with and without contrast showed diffuse metastatic disease and no significant change from her prior MRI and there are no vertebral compression deformities and no cord compression. MRI Brain showed no acute abnormality. MRI C spine/L spine showed diffuse metastatic disease, no cord compression. Continue with Oncology management and PT. At this time, her generalized weakness is likely secondary to deconditioned state, diabetic peripheral neuropathy, superimposed on underlying thoracic spine metastasis from underlying metastatic cancer from the lung and she is very deconditioned. RECOMMENDATIONS: At this time, recommend: 1. Physical therapy, occupational therapy and likely acute rehab. 2. Continue to keep blood sugar between 140 to 180. 3. Monitor electrolytes and correct accordingly. 4. Continue with oncology followup. Once again thank you for this followup. Francisco Li MD Objective - Vital Signs/Intake and Output Vital Signs (last 24 hours): Temp Pulse Resp BP Pulse Ox 98.4 F 84 19 161/85 H 94 L 07/14/17 09:51 07/14/17 09:51 07/14/17 09:51 07/14/17 09:51 07/14/17 09:51 Intake and Output: 07/14/17 07/14/17 06:59 18:59 Intake Total 1800 600 Output Total 1400 500 Balance 400 100 - Medications Medications: Current Medications Acetaminophen (Tylenol 325mg Tab) 650 mg PO Q6H PRN PRN Reason: general discomfort Alprazolam (Xanax) 0.25 mg PO BID [facility] Last Admin: 07/14/17 12:23 Dose: 0.25 mg Amlodipine Besylate (Norvasc) 5 mg PO DAILY [facility] Last Admin: 07/14/17 09:36 Dose: 5 mg Arformoterol Tartrate (Brovana) 15 mcg IH [id number] [facility] Last Admin: 07/14/17 07:09 Dose: 15 mcg Bisacodyl (Dulcolax) 5 mg PO DAILY PRN PRN Reason: Constipation Budesonide (Pulmicort Respules) 0.5 mg IH [id number] [facility] Last Admin: 07/14/17 07:09 Dose: 0.5 mg Enoxaparin Sodium (Lovenox) 30 mg SC DAILY [facility] PRN Reason: Protocol Last Admin: 07/14/17 11:40 Dose: 30 mg Famotidine (Pepcid) 40 mg PO HS [facility] Last Admin: 07/13/17 21:40 Dose: 40 mg Potassium Phosphate 15 mmole/ (Sodium Chloride) 1,005 mls @ 60 mls/hr IV .[id number] [facility] Insulin Human Regular (Humulin R Med) 0 units SC ACHS [facility] PRN Reason: Protocol Last Admin: 07/14/17 12:04 Dose: Not Given Ketoconazole (Nizoral) 0 gm TOP BID [facility] Last Admin: 07/14/17 12:23 Dose: 1 applic Lidocaine (Lidoderm) 2 ea TD [facility] Last Admin: 07/13/17 21:43 Dose: 2 ea Loratadine (Claritin) 10 mg PO DAILY [facility] Last Admin: 07/14/17 12:22 Dose: 10 mg Magnesium Hydroxide (Milk Of Magnesia) 15 ml PO DAILY [facility] PRN Reason: Indigestion / Heartburn Montelukast Sodium (Singulair) 10 mg PO [facility] Last Admin: 07/13/17 21:40 Dose: 10 mg Morphine Sulfate (Morphine Extended Release Tab) 15 mg PO Q12 [facility] Last Admin: 07/14/17 12:05 Dose: Not Given Morphine Sulfate (Morphine) 2 mg IVP Q4H PRN PRN Reason: Pain, severe (8-10) Last Admin: 07/12/17 15:00 Dose: 2 mg Morphine Sulfate (Morphine Immediate Release Tab) 15 mg PO Q6H PRN PRN Reason: Pain, moderate (4-7) Last Admin: 07/13/17 17:45 Dose: 15 mg Nicotine (Nicoderm Cq) 1 patch TD DAILY [facility] Last Admin: 07/14/17 12:23 Dose: 1 patch Nystatin (Nystatin Oral Susp) 5 ml PO QID [facility] Last Admin: 07/14/17 14:27 Dose: 5 ml Ondansetron HCl (Zofran Inj) 4 mg IVP Q4H PRN PRN Reason: Nausea/Vomiting Potassium Phos/Sodium Phos (Neutra-Phos) 1 pkt PO BID [facility] Last Admin: 07/14/17 09:36 Dose: 1 pkt Sucralfate (Carafate Oral Susp) 1 gm PO 0600,1600 [facility] Last Admin: 07/14/17 05:14 Dose: 1 gm Zolpidem Tartrate (Ambien) 5 mg PO HS [facility] PRN Reason: Protocol Last Admin: 07/13/17 22:00 Dose: Not Given - Labs Labs: 07/14/17 06:00 07/14/17 14:00 PT 14.0 SECONDS (9.4-12.5) H 07/11/17 19:53 INR 1.22 (0.93-1.08) H 07/11/17 19:53 APTT 24.8 Seconds (25.1-36.5) L 07/11/17 19:53
[2017-07-14] MEDS: Potassium Phosphate 15 MMOLE in Sodium Chloride 0.9% 1,000 ML IV SCH (15:54)
[2017-07-14] MEDS: Morphine 15 mg Immediate Release Tab PO PRN (16:49)
--- NOTE | 2017-07-14 16:50 | CP.PCM.CON ---
History of Present Illness - History of Present Illness History of Present Illness: 72 year old female with PMH of DM, HTN, and depression, lower back tumor, obesity with BMI 31, stage 4 lung cancer was brought in to [facility] complaining of weakness, decreased appetite, abdominal pain and some loose stools. Patient has had chemotherapy done on 07/11/2017 and has been feeling weak since then. She has no fevers, no abdominal pain, no diarrhea, no dysuria. She has some leukocytosis although she was given Granix. Infectious Diseases consult is requested to further evaluate and manage. Review of Systems - Review of Systems All systems: reviewed and no additional remarkable complaints except (as per HPI ) Past Patient History - Infectious Disease Hx of Infectious Diseases: None - Past Social History Smoking Status: Former Smoker - CARDIAC Hx Cardiac Disorders: Yes Hx Circulatory Problems: Yes Hx Congestive Heart Failure: Yes Hx Hypertension: Yes - PULMONARY Hx Respiratory Disorders: Yes (USED TO SMOKE PPD CIGARETTES QUIT,LUNG CA ON CHEMOTHERAPHY) - NEUROLOGICAL Hx Neurological Disorder: No - HEENT Hx HEENT Problems: No - RENAL Hx Chronic Kidney Disease: No - ENDOCRINE/METABOLIC Hx Endocrine Disorders: Yes Hx Diabetes Mellitus Type 1: Yes - HEMATOLOGICAL/ONCOLOGICAL Hx Blood Disorders: Yes Hx Cancer: Yes (small cell lung ca recently dx) Hx Chemotherapy: Yes (received chemo today) Other/Comment: epidural mass, liver mass, Pt stated " I had 10 radiation treatments, and 2 chemo treatments, I did not get a third chemo because my white count is low." - INTEGUMENTARY Hx Dermatological Problems: Yes Other/Comment: 07-11-17 SACRAL PRESSURE ULCER IN WHICH CENTER OF WOUND HAS SOME SLOUGH.SURROUNDING SKIN IS PURPLISH HUE WITH PINPOINT RASH. HAS IASD,ALSO TO BILATERAL GROIN AREA. - MUSCULOSKELETAL/RHEUMATOLOGICAL Hx Musculoskeletal Disorders: Yes Hx Arthritis: Yes Hx Falls: Yes Hx Unsteady Gait: Yes (WALKER) - GASTROINTESTINAL Hx Gastrointestinal Disorders: Yes (esophageal ulcers) - GENITOURINARY/GYNECOLOGICAL Hx Genitourinary Disorders: (external catheter) Hx Reproductive Disorders: No - PSYCHIATRIC Hx Psychophysiologic Disorder: Yes Hx Anxiety: Yes Hx Depression: Yes Hx Substance Use: No - SURGICAL HISTORY Hx Surgeries: Yes (CARD CATH 05-31-17,PORT) Hx Cardiac Catheterization: Yes Hx Orthopedic Surgery: Yes (R KNEE) - ANESTHESIA Hx Anesthesia Reactions: No Hx Malignant Hyperthermia: No Meds Allergies/Adverse Reactions: Allergies Allergy/AdvReac Type Severity Reaction Status Date / Time Sulfa (Sulfonamide Allergy ANAPHYLAXIS Verified 07/11/17 23:19 Antibiotics) - Medications Medications: Current Medications Acetaminophen (Tylenol 325mg Tab) 650 mg PO Q6H PRN PRN Reason: general discomfort Alprazolam (Xanax) 0.25 mg PO BID [facility] Last Admin: 07/13/17 17:44 Dose: 0.25 mg Amlodipine Besylate (Norvasc) 5 mg PO DAILY [facility] Last Admin: 07/14/17 09:36 Dose: 5 mg Arformoterol Tartrate (Brovana) 15 mcg IH [id number] [facility] Last Admin: 07/14/17 07:09 Dose: 15 mcg Bisacodyl (Dulcolax) 5 mg PO DAILY PRN PRN Reason: Constipation Budesonide (Pulmicort Respules) 0.5 mg IH [id number] [facility] Last Admin: 07/14/17 07:09 Dose: 0.5 mg Enoxaparin Sodium (Lovenox) 30 mg SC DAILY [facility] PRN Reason: Protocol Last Admin: 07/14/17 11:40 Dose: 30 mg Famotidine (Pepcid) 40 mg PO [facility] Last Admin: 07/13/17 21:40 Dose: 40 mg Potassium Phosphate 15 mmole/ (Dextrose) 255 mls @ 42.5 mls/hr IVPB ONCE ONE Stop: 07/14/17 14:57 Potassium Phosphate 15 mmole/ (Sodium Chloride) 1,005 mls @ 60 mls/hr IV .[id number] [facility] Insulin Human Regular (Humulin R Med) 0 units SC ACHS [facility] PRN Reason: Protocol Last Admin: 07/14/17 08:09 Dose: Not Given Ketoconazole (Nizoral) 0 gm TOP BID [facility] Last Admin: 07/13/17 17:45 Dose: 1 applic Lidocaine (Lidoderm) 2 ea TD [facility] Last Admin: 07/13/17 21:43 Dose: 2 ea Loratadine (Claritin) 10 mg PO DAILY [facility] Last Admin: 07/13/17 10:00 Dose: 10 mg Magnesium Hydroxide (Milk Of Magnesia) 15 ml PO DAILY PRN PRN Reason: Indigestion / Heartburn Montelukast Sodium (Singulair) 10 mg PO [facility] Last Admin: 07/13/17 21:40 Dose: 10 mg Morphine Sulfate (Morphine Extended Release Tab) 15 mg PO Q12 [facility] Last Admin: 07/13/17 21:40 Dose: 15 mg Morphine Sulfate (Morphine) 2 mg IVP Q4H PRN PRN Reason: Pain, severe (8-10) Last Admin: 07/12/17 15:00 Dose: 2 mg Morphine Sulfate (Morphine Immediate Release Tab) 15 mg PO Q6H PRN PRN Reason: Pain, moderate (4-7) Last Admin: 07/13/17 17:45 Dose: 15 mg Nicotine (Nicoderm Cq) 1 patch TD DAILY [facility] Last Admin: 07/13/17 10:01 Dose: 1 patch Nystatin (Nystatin Oral Susp) 5 ml PO QID [facility] Last Admin: 07/13/17 21:40 Dose: 5 ml Ondansetron HCl (Zofran Inj) 4 mg IVP Q4H PRN PRN Reason: Nausea/Vomiting Potassium Phos/Sodium Phos (Neutra-Phos) 1 pkt PO BID [facility] Last Admin: 07/14/17 09:36 Dose: 1 pkt Sucralfate (Carafate Oral Susp) 1 gm PO 0600,1600 [facility] Last Admin: 07/14/17 05:14 Dose: 1 gm Zolpidem Tartrate (Ambien) 5 mg PO [facility] PRN Reason: Protocol Last Admin: 07/13/17 22:00 Dose: Not Given Physical Exam - Constitutional Appears: Chronically Ill - Head Exam Head Exam: NORMAL INSPECTION - Respiratory Exam Respiratory Exam: Decreased Breath Sounds - Cardiovascular Exam Cardiovascular Exam: +S1, +S2 - GI/Abdominal Exam GI & Abdominal Exam: Soft. absent: Tenderness Results - Vital Signs Recent Vital Signs: Last Vital Signs Temp 98.4 F 07/14/17 09:51 Pulse 84 07/14/17 09:51 Resp 19 07/14/17 09:51 BP 161/85 H 07/14/17 09:51 Pulse Ox 94 L 07/14/17 09:51 - Labs Result Diagrams: 07/14/17 06:00 07/14/17 14:00 Labs: Laboratory Results - last 24 hr 07/13/17 07/13/17 07/13/17 14:02 16:09 21:02 WBC RBC Hgb Hct MCV MCH MCHC RDW Plt Count MPV Gran % Lymph % (Auto) [place] % (Auto) Eos % (Auto) Baso % (Auto) Gran # Lymph # (Auto) [place] # (Auto) Eos # (Auto) Baso # (Auto) Neutrophils % (Manual) Band Neutrophils % Lymphocytes % (Manual) Monocytes % (Manual) Platelet Evaluation Sodium Potassium 3.9 Chloride Carbon Dioxide Anion Gap BUN Creatinine Est GFR ( Amer) Est GFR (Non-Af Amer) POC Glucose (mg/dL) 330 H 279 H Random Glucose Calcium Phosphorus Magnesium Total Bilirubin AST ALT Alkaline Phosphatase Total Protein Albumin Globulin Albumin/Globulin Ratio 07/14/17 07/14/17 07/14/17 06:00 06:00 07:30 WBC 14.6 H D RBC 3.02 L Hgb 9.0 L Hct 29.1 L MCV 96.4 MCH 29.8 MCHC 30.9 L RDW 20.8 H Plt Count 188 MPV 9.7 Gran % 94.1 H Lymph % (Auto) 4.3 L [place] % (Auto) 1.4 Eos % (Auto) 0.1 L Baso % (Auto) 0.1 Gran # 13.72 H Lymph # (Auto) 0.6 L [place] # (Auto) 0.2 Eos # (Auto) 0.0 Baso # (Auto) 0.01 Neutrophils % (Manual) 89 H Band Neutrophils % 11 H* Lymphocytes % (Manual) TEST NOT PERFORMED Monocytes % (Manual) TEST NOT PERFORMED Platelet Evaluation Normal Sodium 142 Potassium 3.6 Chloride 106 Carbon Dioxide 30 Anion Gap 10 BUN 9 Creatinine 0.4 L Est GFR ( Amer) > 60 Est GFR (Non-Af Amer) > 60 POC Glucose (mg/dL) 137 H Random Glucose 133 H Calcium 7.8 L Phosphorus 1.6 L Magnesium 2.2 Total Bilirubin 0.5 AST 93 H ALT 86 H Alkaline Phosphatase 404 H Total Protein 5.6 L Albumin 2.9 L Globulin 2.8 Albumin/Globulin Ratio 1.0 L 07/14/17 11:47 WBC RBC Hgb Hct MCV MCH MCHC RDW Plt Count MPV Gran % Lymph % (Auto) [place] % (Auto) Eos % (Auto) Baso % (Auto) Gran # Lymph # (Auto) [place] # (Auto) Eos # (Auto) Baso # (Auto) Neutrophils % (Manual) Band Neutrophils % Lymphocytes % (Manual) Monocytes % (Manual) Platelet Evaluation Sodium Potassium Chloride Carbon Dioxide Anion Gap BUN Creatinine Est GFR ( Amer) Est GFR (Non-Af Amer) POC Glucose (mg/dL) 170 H Random Glucose Calcium Phosphorus Magnesium Total Bilirubin AST ALT Alkaline Phosphatase Total Protein Albumin Globulin Albumin/Globulin Ratio Assessment & Plan - Assessment and Plan (Free Text) Plan: Assessment leukocytosis probably due to G-CSF infusion S/P sepsis due to HCAP S/P neutropenia history of Systemic viral illness with Influenza and acute bronchitis stage 4 lung cancer VRE in the urine, asymptomatic DM HTN depression lower back tumor obesity with BMI 30 Plan will monitor clinically off antibiotics since she is at risk for nosocomial infections; will check blood, urine cx, CPT
[2017-07-14] MEDS ORDERED: POLYETHYLENE GLYCOL 3350 17 GM/Dose PACKET PO PRN (17:52)
[2017-07-14] MEDS ORDERED: POLYETHYLENE GLYCOL 3350 17 GM/Dose PACKET PO STA (17:52)
[2017-07-14] MEDS: Bisacodyl 5mg EC Tab PO PRN (18:07)
[2017-07-14] MEDS: Lidocaine 5% Patch TD SCH (22:23)
--- NOTE | 2017-07-15 04:22 | PN ---
PULMONARY PROGRESS NOTE DATE: 07/14/2017 REFERRING PHYSICIAN: Dr. Puente. SUBJECTIVE: She is lying in the bed, head at 45 degrees. Night was unremarkable. Feels better. No headache. No rhinitis. Mild cough. No nausea. No vomiting, diarrhea, leg pain, or leg swelling. OBJECTIVE: GENERAL: No acute distress. VITAL SIGNS: Temperature is 98, heart rate is 84, respiratory rate is 18, blood pressure 137/68, pulse ox 98% on room air. HEENT: Moist mucous membranes. Crowded airway. NECK: Supple. No JVD. LUNGS: Have a fair airflow with few rhonchi. HEART: S1 and S2. ABDOMEN: Soft and nontender. No organomegaly. EXTREMITIES: There is no edema. NEUROLOGICAL: Awake, alert, follows simple commands. MEDICATIONS: She is on Ambien 5 mg at bedtime p.r.n., Brovana inhaled twice a day, Carafate 1 gm twice a day, Claritin 10 mg daily, Dulcolax 5 mg daily p.r.n., insulin coverage, lidocaine patch at affected area, Lovenox 30 mg subcutaneous daily, MiraLax 17 gm twice a day p.r.n., morphine 2 mg every 4 hours p.r.n., morphine extended release 15 mg every 12 hours [id number], morphine sulfate immediate release 15 mg every 6 hours p.r.n., potassium phosphate 1 pack twice a day, Nicoderm patch daily, ketoconazole to affected area twice a day, Norvasc 5 mg daily, nystatin oral suspension 5 mL four times a day, Pepcid 40 mg daily, IV fluid with potassium, phosphorus, Singulair 10 mg at bedtime, Tylenol p.r.n., Xanax 0.25 mg twice a day, Zofran p.r.n. basis. LABORATORY DATA: Shows hemoglobin 9.0, hematocrit 29.1, WBC 14.6, and platelet is 188. Sodium 142, potassium 3.6, chloride 106, bicarbonate 30, BUN 9, creatinine 0.4, and glucose is 133. Calcium is 7.8, phosphorus 1.6. AST 93, ALT 86, and alk phos is 404. Albumin is 2.9. Microbiology, urine culture has no growth. Has a cervical spine x-ray done today, which showed diffuse bony metastatic disease, a small amount of epidural invasion dorsal to the thecal sac at C5-C6 noted. No evidence of cord compression. MRI of the brain was done today, which shows no evidence of metastasis to the brain. IMPRESSION AND PLAN: Metastatic lung cancer, which is progressive disease involving the liver and bone, retroperitoneal lymph nodes also present, also has chronic lung disease, anemia, dehydration, electrolyte imbalance, may have component of sleep apnea syndrome, anxiety disorder, ADL dysfunction. Pulmonary point of view, doing okay. Case discussed with Dr. Puente this morning. I think, at this point, the trejo component of her care is aggressive chemotherapy. So far, cancer seemed like progressive. Even though she has risk of complication, we will handle as it comes. What i think for her survival, we need to become aggressive with chemotherapy and agree with Dr. Puente's plan. Continue gastric prophylaxis. Sequential compression device to lower extremities. Fall precaution. Thank you, and we will follow with you. Robert Eastman MD
[2017-07-15] MEDS: Potassium Phosphate 15 MMOLE in Sodium Chloride 0.9% 1,000 ML IV SCH ×2 (04:32→09:49)
[2017-07-15] MEDS: Sucralfate 1 gm/10 ml Oral Susp UD PO SCH ×2 (06:25→18:22)
[2017-07-15 07:01] LABS: BASO # 0.01 K/mm3 (0.0-2.0); BASO % 0.1 % (0.0-3.0); EOS % 0.1 % (1.5-5.0); GRAN # 12.18 (1.4-6.5); GRAN % 93.5 % (50.0-68.0); HEMOGLOBIN 9.4 g/dL (12.0-16.0); LYMPH # 0.7 (1.2-3.4); LYMPH % 5.1 % (22.0-35.0); MEAN CORPUSCULAR HEMOGLOBIN 29.1 pg (25.0-35.0); MEAN CORPUSCULAR HGB CONC 30.6 g/dl (31.0-37.0); MONO # 0.2 (0.1-0.6); MONO % 1.2 % (1.0-6.0); RBC 3.23 10^6/uL (3.5-6.1); RED CELL DISTRIBUTION WIDTH 20.4 % (11.5-14.5)
[2017-07-15 07:43] LABS: ALB/GLOB RATIO 1.1 (1.1-1.8); ALBUMIN 3.1 g/dL (3.0-4.8); ALT/SGPT 81 U/L (7-56); AST/SGOT 86 U/L (14-36); BLOOD UREA NITROGEN 9 mg/dL (7-21); CALCIUM 7.9 mg/dL (8.4-10.5); GFR AFRICAN-AMERICAN > 60; GFR NON-AFRICAN AMERICAN > 60
[2017-07-15] MEDS: Budesonide 0.5 mg/2 ml Inhal Susp UD IH SCH ×2 (07:44→20:20)
[2017-07-15] MEDS: Arformoterol 15 mcg/2 ml Inh Sol IH SCH ×2 (07:44→20:20)
[2017-07-15] MEDS: Insulin Reg-MEDIUM-Coverage SC SCH ×4 (07:57→23:46)
[2017-07-15] MEDS: Morphine 15 mg SR Tab PO SCH ×2 (09:46→23:46)
[2017-07-15] MEDS: Enoxaparin 30 mg Syringe SC SCH (09:47)
[2017-07-15] MEDS: Bisacodyl 5mg EC Tab PO PRN (09:47)
[2017-07-15] MEDS: Nystatin 100,000 Units/ml Oral Susp 5 ml UD PO SCH ×4 (09:47→22:11)
[2017-07-15] MEDS: Potassium & Sodium Phosphate PO SCH ×2 (09:48→18:22)
--- NOTE | 2017-07-15 10:34 | CP.PCM.PN ---
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 Of concern, she was unable to self transfer from her transport to the infusion bed , and required 2 person assist, which is a significant decline from the level she showed prior to her discharge from the [facility]CU. She appears to be suffering from failure to thrive, also requiring workup to rule out acute cord compression requiring emergent intervention. Patient seen at bedside today, reports improvement of symptoms as compared to level at presentation yesterday. MRI's negative for cord compression and negative for brain lesion. Pending placement for rehab ([facility] vs acute rehab). Objective - Vital Signs/Intake and Output Vital Signs (last 24 hours): Temp Pulse Resp BP Pulse Ox 97.7 F 89 20 162/96 H 96 07/15/17 06:00 07/15/17 09:47 07/15/17 06:00 07/15/17 09:47 07/15/17 06:00 Intake and Output: 07/15/17 07/15/17 06:59 18:59 Intake Total 1020 Balance 1020 - Medications Medications: Current Medications Acetaminophen (Tylenol 325mg Tab) 650 mg PO Q6H PRN PRN Reason: general discomfort Alprazolam (Xanax) 0.25 mg PO BID [facility] Last Admin: 07/15/17 09:47 Dose: 0.25 mg Amlodipine Besylate (Norvasc) 5 mg PO DAILY [facility] Last Admin: 07/15/17 09:47 Dose: 5 mg Arformoterol Tartrate (Brovana) 15 mcg IH [id number] [facility] Last Admin: 07/15/17 07:44 Dose: 15 mcg Bisacodyl (Dulcolax) 5 mg PO DAILY PRN PRN Reason: Constipation Last Admin: 07/15/17 09:47 Dose: 5 mg Budesonide (Pulmicort Respules) 0.5 mg IH [id number] [facility] Last Admin: 07/15/17 07:44 Dose: 0.5 mg Enoxaparin Sodium (Lovenox) 30 mg SC DAILY [facility] PRN Reason: Protocol Last Admin: 07/15/17 09:47 Dose: 30 mg Famotidine (Pepcid) 40 mg PO HS [facility] Last Admin: 07/14/17 22:21 Dose: 40 mg Potassium Phosphate 15 mmole/ (Sodium Chloride) 1,005 mls @ 60 mls/hr IV .[id number] [facility] Last Admin: 07/15/17 09:49 Dose: 60 mls/hr Insulin Human Regular (Humulin R Med) 0 units SC ACHS [facility] PRN Reason: Protocol Last Admin: 07/15/17 07:57 Dose: Not Given Ketoconazole (Nizoral) 0 gm TOP BID [facility] Last Admin: 07/15/17 09:55 Dose: 1 applic Lidocaine (Lidoderm) 2 ea TD [facility] Last Admin: 07/14/17 22:23 Dose: 2 ea Loratadine (Claritin) 10 mg PO DAILY [facility] Last Admin: 07/15/17 09:46 Dose: 10 mg Magnesium Hydroxide (Milk Of Magnesia) 15 ml PO DAILY PRN PRN Reason: Indigestion / Heartburn Montelukast Sodium (Singulair) 10 mg PO [facility] Last Admin: 07/14/17 22:21 Dose: 10 mg Morphine Sulfate (Morphine Extended Release Tab) 15 mg PO Q12 [facility] Last Admin: 07/15/17 09:46 Dose: 15 mg Morphine Sulfate (Morphine) 2 mg IVP Q4H PRN PRN Reason: Pain, severe (8-10) Last Admin: 07/12/17 15:00 Dose: 2 mg Morphine Sulfate (Morphine Immediate Release Tab) 15 mg PO Q6H PRN PRN Reason: Pain, moderate (4-7) Last Admin: 07/14/17 16:49 Dose: 15 mg Nicotine (Nicoderm Cq) 1 patch TD DAILY [facility] Last Admin: 07/15/17 09:46 Dose: 1 patch Nystatin (Nystatin Oral Susp) 5 ml PO QID [facility] Last Admin: 07/15/17 09:47 Dose: 5 ml Ondansetron HCl (Zofran Inj) 4 mg IVP Q4H PRN PRN Reason: Nausea/Vomiting Last Admin: 07/15/17 09:47 Dose: 4 mg Polyethylene Glycol (Miralax) 17 gm PO BID PRN PRN Reason: Constipation Last Admin: 07/15/17 09:46 Dose: 17 gm Potassium Phos/Sodium Phos (Neutra-Phos) 1 pkt PO BID [facility] Last Admin: 07/15/17 09:48 Dose: 1 pkt Sucralfate (Carafate Oral Susp) 1 gm PO 0600,1600 [facility] Last Admin: 07/15/17 06:25 Dose: 1 gm Zolpidem Tartrate (Ambien) 5 mg PO HS [facility] PRN Reason: Protocol Last Admin: 07/14/17 22:22 Dose: Not Given - Labs Labs: 07/15/17 06:48 07/15/17 06:48 PT 14.0 SECONDS (9.4-12.5) H 07/11/17 19:53 INR 1.22 (0.93-1.08) H 07/11/17 19:53 APTT 24.8 Seconds (25.1-36.5) L 07/11/17 19:53 - Additional Findings Additional findings: - Constitutional Appears: Non-toxic, No Acute Distress - Head Exam Head Exam: ATRAUMATIC, NORMAL INSPECTION, NORMOCEPHALIC - Eye Exam Eye Exam: EOMI, Normal appearance. absent: Conjunctival injection, Scleral icterus Pupil Exam: absent: Irregular, Unequal - ENT Exam ENT Exam: Mucous Membranes Moist - Neck Exam Neck exam: Positive for: Full Rom. Negative for: Lymphadenopathy, Thyromegaly - Respiratory Exam Respiratory Exam: Decreased Breath Sounds (mildly decreased breath sounds in all walker auscultated, but otherwise CTAB), Clear to Auscultation Bilateral, NORMAL BREATHING PATTERN. absent: Accessory Muscle Use, Chest Wall Tenderness, Rales, Rhonchi, Wheezes - Cardiovascular Exam Cardiovascular Exam: REGULAR RHYTHM, RRR, +S1, +S2. absent: Bradycardia, Tachycardia, Irregular Rhythm, JVD - GI/Abdominal Exam GI & Abdominal Exam: Normal Bowel Sounds, Soft. absent: Tenderness, Diminished Bowel Sounds, Firm, Guarding, Pulsatile Mass - Extremities Exam Extremities exam: Positive for: normal inspection, pedal pulses present. 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 She appears to be suffering from failure to thrive, needs workup to rule out acute cord compression requiring emergent intervention. 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 for BI DATA MODELER event, Neuro consulted, appreciate all recs; CT head negative, thoracic MRI w/ and w/o contrast negative for compression, MRI brain negative for metastatic lesion -CT neck/chest/abd/pelvis notable for slight progression mediastinal adenopathy , significant progression metastatic disease to liver, and increasing retroperitoneal adenopathy of the periportal and upper IVC regions -Pulm consulted, appreciate all recs; recs aggressive chemo given current degree of lung disease -Given extent of disease, Palliative service consulted, appreciate their assistance -Famvir 500mg PO BID for neutopenia precautions; given risk of herpetic rxns in immunosuppressed pts on chemo -Aredia 90mg IVPB x1 given on 07/12/17 -ID consulted for neutropenic precaution abx given hx of VRE, appreciate all recs; obtained urine/blood cultures and procal, will monitor clinically off abx -Nephro consulted for persistent electrolyte abnormalities, appreciate all recs ; can d/c IVF as phosphorous now at normal level, K wnl today, can continue supplementation with Neutra-phos BID -Continue Granix for possible neutropenia post-chemo, leukocytosis most likely 2 /2 granix Case reviewed and discussed at length with attending, Dr. Puente.
[2017-07-15] MEDS ORDERED: Lactulose 10 gm/15 ml (Rectal Use) PR ONE ×2 (12:34→17:34)
[2017-07-15] MEDS: Morphine 15 mg Immediate Release Tab PO PRN (13:49)
[2017-07-15] MEDS ORDERED: Mineral Oil Enema 135 ml RC ONE (14:30)
--- NOTE | 2017-07-15 14:41 | CP.PCM.PN ---
Subjective - Date & Time of Evaluation Date of Evaluation: 07/15/17 Time of Evaluation: 10:45 - Subjective Subjective: Resting comfortably in bed, no fevers. Objective - Vital Signs/Intake and Output Vital Signs (last 24 hours): Temp Pulse Resp BP Pulse Ox 97.7 F 89 20 162/96 H 96 07/15/17 06:00 07/15/17 09:47 07/15/17 06:00 07/15/17 09:47 07/15/17 06:00 Intake and Output: 07/15/17 07/15/17 06:59 18:59 Intake Total 1020 Balance 1020 - Medications Medications: Current Medications Acetaminophen (Tylenol 325mg Tab) 650 mg PO Q6H PRN PRN Reason: general discomfort Alprazolam (Xanax) 0.25 mg PO BID [facility] Last Admin: 07/15/17 09:47 Dose: 0.25 mg Amlodipine Besylate (Norvasc) 5 mg PO DAILY [facility] Last Admin: 07/15/17 09:47 Dose: 5 mg Arformoterol Tartrate (Brovana) 15 mcg IH [id number] [facility] Last Admin: 07/15/17 07:44 Dose: 15 mcg Bisacodyl (Dulcolax) 5 mg PO DAILY PRN PRN Reason: Constipation Last Admin: 07/15/17 09:47 Dose: 5 mg Budesonide (Pulmicort Respules) 0.5 mg IH [id number] [facility] Last Admin: 07/15/17 07:44 Dose: 0.5 mg Enoxaparin Sodium (Lovenox) 30 mg SC DAILY [facility] PRN Reason: Protocol Last Admin: 07/15/17 09:47 Dose: 30 mg Famotidine (Pepcid) 40 mg PO HS [facility] Last Admin: 07/14/17 22:21 Dose: 40 mg Potassium Phosphate 15 mmole/ (Sodium Chloride) 1,005 mls @ 60 mls/hr IV .[id number] [facility] Last Admin: 07/15/17 09:49 Dose: 60 mls/hr Insulin Human Regular (Humulin R Med) 0 units SC ACHS [facility] PRN Reason: Protocol Last Admin: 07/15/17 12:11 Dose: Not Given Ketoconazole (Nizoral) 0 gm TOP BID [facility] Last Admin: 03/23/18 09:55 Dose: 1 applic Lidocaine (Lidoderm) 2 ea TD HS [facility] Last Admin: 07/14/17 22:23 Dose: 2 ea Loratadine (Claritin) 10 mg PO DAILY [facility] Last Admin: 07/15/17 09:46 Dose: 10 mg Magnesium Hydroxide (Milk Of Magnesia) 15 ml PO DAILY PRN PRN Reason: Indigestion / Heartburn Montelukast Sodium (Singulair) 10 mg PO HS [facility] Last Admin: 07/14/17 22:21 Dose: 10 mg Morphine Sulfate (Morphine Extended Release Tab) 15 mg PO Q12 [facility] Last Admin: 07/15/17 09:46 Dose: 15 mg Morphine Sulfate (Morphine) 2 mg IVP Q4H PRN PRN Reason: Pain, severe (8-10) Last Admin: 07/12/17 15:00 Dose: 2 mg Morphine Sulfate (Morphine Immediate Release Tab) 15 mg PO Q6H PRN PRN Reason: Pain, moderate (4-7) Last Admin: 07/15/17 13:49 Dose: 15 mg Nicotine (Nicoderm Cq) 1 patch TD DAILY [facility] Last Admin: 07/15/17 09:46 Dose: 1 patch Nystatin (Nystatin Oral Susp) 5 ml PO QID [facility] Last Admin: 07/15/17 13:49 Dose: 5 ml Ondansetron HCl (Zofran Inj) 4 mg IVP Q4H PRN PRN Reason: Nausea/Vomiting Last Admin: 07/15/17 09:47 Dose: 4 mg Polyethylene Glycol (Miralax) 17 gm PO BID [facility] Potassium Phos/Sodium Phos (Neutra-Phos) 1 pkt PO BID [facility] Last Admin: 07/15/17 09:48 Dose: 1 pkt Sucralfate (Carafate Oral Susp) 1 gm PO 0600,1600 [facility] Last Admin: 07/15/17 06:25 Dose: 1 gm Zolpidem Tartrate (Ambien) 5 mg PO HS [facility] PRN Reason: Protocol Last Admin: 07/14/17 22:22 Dose: Not Given - Labs Labs: 07/15/17 06:48 07/15/17 06:48 PT 14.0 SECONDS (9.4-12.5) H 07/11/17 19:53 INR 1.22 (0.93-1.08) H 07/11/17 19:53 APTT 24.8 Seconds (25.1-36.5) L 07/11/17 19:53 - Constitutional Appears: Chronically Ill - Head Exam Head Exam: NORMAL INSPECTION - ENT Exam ENT Exam: Mucous Membranes Moist - Respiratory Exam Respiratory Exam: Decreased Breath Sounds - Cardiovascular Exam Cardiovascular Exam: +S1, +S2 - GI/Abdominal Exam GI & Abdominal Exam: Soft. absent: Tenderness Assessment and Plan - Assessment and Plan (Free Text) Plan: Assessment leukocytosis probably due to G-CSF infusion stage 3 decubitus ulcer S/P sepsis due to HCAP S/P neutropenia history of Systemic viral illness with Influenza and acute bronchitis stage 4 lung cancer VRE in the urine, asymptomatic DM HTN depression lower back tumor obesity with BMI 30 Plan will monitor clinically off antibiotics since she is at risk for hospital- acquired infections; cultures have been negative continue local wound care for the sacral decubitus ulcer discussed with Dr. Reis
[2017-07-15] MEDS: POLYETHYLENE GLYCOL 3350 17 GM/Dose PACKET PO SCH (18:22)
[2017-07-15] MEDS: Morphine 2 mg/ml ISec IVP PRN (18:40)
--- NOTE | 2017-07-15 19:42 | PN ---
DATE: 07/15/2017 PULMONARY PROGRESS NOTE REFERRING PHYSICIAN: Dr. Puente. SUBJECTIVE: She is out of bed to chair. Has a back pain, also constipation. Cough is better. Shortness of breath is better. No nausea. Not much leg pain or leg swelling. OBJECTIVE: GENERAL: Mild distress secondary to pain. VITAL SIGNS: Temp is 98, heart rate is 89, respiratory rate is 20, blood pressure 162/96, pulse ox 96% on room air. HEENT: Moist mucous membrane. Crowded airway. NECK: Supple. No JVD. LUNGS: Have a fair airflow with few rhonchi. HEART: S1 and S2. ABDOMEN: Soft, nontender. No organomegaly. EXTREMITIES: No edema. NEUROLOGICAL: Awake and alert. Follows simple command. LABORATORY DATA: Shows hemoglobin 9.4, hematocrit 30.7, WBC 13.0, platelet count Is 170. Sodium 138, potassium 3.8, chloride 102, bicarbonate 31, BUN 9, creatinine 0.3, glucose 135, calcium 7.9, phosphorus 3.3, magnesium 2.1, AST 86, ALT 81, alk phos is 441, albumin is 3.1. Microbiology: Repeat blood culture, there is no growth. MEDICATIONS: She is on Ambien 5 mg at bedtime, Brovana inhaled twice a day, Carafate 1 g twice a day, Claritin 10 mg daily, Dulcolax 5 mg daily p.r.n., insulin coverage, lidocaine patch at affected area, Lovenox 30 mg subcu daily, milk of magnesia p.r.n. basis, MiraLax 17 g twice a day p.r.n., morphine 2 mg IV every 4 hours p.r.n., morphine extended release 15 mg every 12 hours, morphine immediate release 15 mg every 6 hours p.r.n., Neutra-Phos 1 pack twice a day had been given, Nicoderm patch has been given, Nizoral at affected area, Norvasc 5 mg daily, nystatin oral suspension four times daily, Pepcid 40 mg at bedtime, potassium phosphate IV had been given, Pulmicort inhaled twice a day, Singulair 10 mg daily, Tylenol p.r.n., Xanax 0.25 mg twice a day, Zofran p.r.n. basis. IMPRESSION AND PLAN: Metastatic lung cancer, which is a progressive disease to liver and bones involving almost whole spine, has retroperitoneal lymphadenopathy, chronic lung disease, anemia, dehydration, electrolyte imbalance, may have component of sleep apnea syndrome, anxiety disorder, activities of daily living dysfunction, severe constipation. Case discussed with the nursing staff. I requested to give mineral oil enema. If still no bowel movement, may need to give Dulcolax. We will change MiraLax to p.o. twice a day [id number] instead of p.r.n. Continue pain management. IV and inhaled bronchodilator. Physical therapy with precaution because the spine metastasis. Thank you and we will follow with you. Robert Eastman MD
[2017-07-15] MEDS: Lidocaine 5% Patch TD SCH (22:12)
[2017-07-16] MEDS: Sucralfate 1 gm/10 ml Oral Susp UD PO SCH ×2 (06:00→16:53)
[2017-07-16 07:01] LABS: BASO # 0.02 K/mm3 (0.0-2.0); BASO % 0.2 % (0.0-3.0); EOS % 0.3 % (1.5-5.0); GRAN # 11.45 (1.4-6.5); GRAN % 89.6 % (50.0-68.0); HEMOGLOBIN 9.1 g/dL (12.0-16.0); LYMPH # 0.8 (1.2-3.4); LYMPH % 6.5 % (22.0-35.0); MEAN CELL VOLUME 94.5 fl (80.0-105.0); MEAN CORPUSCULAR HEMOGLOBIN 29.3 pg (25.0-35.0); MEAN PLATELET VOLUME 9.8 fl (7.0-11.0); MONO # 0.4 (0.1-0.6); MONO % 3.4 % (1.0-6.0); RBC 3.11 10^6/uL (3.5-6.1); RED CELL DISTRIBUTION WIDTH 20.2 % (11.5-14.5); WHITE BLOOD COUNT 12.8 10^3/ul (4.5-11.0)
[2017-07-16 07:25] LABS: ALB/GLOB RATIO 1.1 (1.1-1.8); ALBUMIN 2.9 g/dL (3.0-4.8); ALT/SGPT 65 U/L (7-56); AST/SGOT 75 U/L (14-36); BLOOD UREA NITROGEN 7 mg/dL (7-21); CALCIUM 7.8 mg/dL (8.4-10.5); GFR AFRICAN-AMERICAN > 60; GFR NON-AFRICAN AMERICAN > 60
[2017-07-16] MEDS: Budesonide 0.5 mg/2 ml Inhal Susp UD IH SCH ×2 (07:32→19:37)
[2017-07-16] MEDS: Arformoterol 15 mcg/2 ml Inh Sol IH SCH ×2 (07:32→19:37)
[2017-07-16] MEDS: Insulin Reg-MEDIUM-Coverage SC SCH ×4 (08:10→21:56)
[2017-07-16] MEDS: Potassium & Sodium Phosphate PO SCH ×2 (09:08→16:59)
[2017-07-16] MEDS: Nystatin 100,000 Units/ml Oral Susp 5 ml UD PO SCH ×4 (09:08→21:55)
[2017-07-16] MEDS: Enoxaparin 30 mg Syringe SC SCH (09:08)
[2017-07-16] MEDS: Morphine 15 mg SR Tab PO SCH ×2 (09:09→21:55)
[2017-07-16] MEDS: POLYETHYLENE GLYCOL 3350 17 GM/Dose PACKET PO SCH ×2 (09:10→16:59)
[2017-07-16] MEDS ORDERED: Potassium Chloride 20 mEq ER Tab PO ONE (10:21)
[2017-07-16] MEDS: Morphine 15 mg Immediate Release Tab PO PRN ×2 (11:04→16:53)
--- NOTE | 2017-07-16 13:26 | CP.PCM.PN ---
Subjective - Date & Time of Evaluation Date of Evaluation: 07/16/17 Time of Evaluation: 13:23 - Subjective Subjective: Nephrology Consultation Note For Dr iRley Assessment: Stable Hypokalemia Hypertension Abnormal LFT Metastatic lung cancer DM, HTN Plan We'll supplement with potassium 40 mg today Hypertension controlled with meds as ordered. We will also add losartan 50 mg per day Serum calcium 7.8 but corrected for albumin is 8.6. We will check vitamin D level Glycemic control Further work up for as per primary team Thanks for allowing me to participate in care of your patient. Will follow patient with you. Please call if any Qs. Discussed with the team Dr Manuel Lawrence Office: [phone] Subjective: Noted events overnight. Patients feels okay. Denies chest pain, palpitation, shortness of breath, leg swelling. All other negative Physical Examination: General Appearance: Comfortable, in no acute respiratory distress, co-operative . Vitals reviewed and noted as below Head; Atraumatic, normocephalic ENT: no ulcers no thrush. Tongue is midline. Oropharynx: no rash or ulcers. EYES: Pupils are equal, round and reactive to light accommodation. Eye muscles and extraocular movement intact. Sclera is anicteric. Neck; supple no lymphadenopathy, no thyromegaly or bruit Lungs: Normal respiratory rate/effort. Breath sounds bilateral equal and clear Heart: Normal rate. s1s2 normal. No rub or gallop. Extremities: no edema. has varicose veins Neurological: Patient is alert, awake and oriented to person, place and time. No focal deficit. Strength bilateral appropriate and equal Skin: Warm and dry. Normal turgor. No rash. Palpitation: Normal elasticity for age Abdomen: Abdomen is soft. Bowel sounds +. There is no abdominal tenderness, no guarding/rigidity no organomegaly Psych: normal insight and normal affect/mood MSK: no joint tenderness or swelling. Digits and nails normal, no deformity : kidney or bladder not palpable Labs/imaging reviewed. Past medical history, past surgical history, family history, social history, allergy reviewed and noted as below Family hx: no hx of CKD. Rest non-contributory Objective - Vital Signs/Intake and Output Vital Signs (last 24 hours): Temp Pulse Resp BP Pulse Ox 97.6 F 91 H 22 166/89 H 96 07/16/17 08:27 07/16/17 08:27 07/16/17 08:27 07/16/17 08:27 07/16/17 08:27 Intake and Output: 07/16/17 07/16/17 06:59 18:59 Intake Total 660 100 Balance 660 100 - Medications Medications: Current Medications Acetaminophen (Tylenol 325mg Tab) 650 mg PO Q6H PRN PRN Reason: general discomfort Alprazolam (Xanax) 0.25 mg PO BID [facility] Last Admin: 07/16/17 09:09 Dose: 0.25 mg Amlodipine Besylate (Norvasc) 5 mg PO DAILY [facility] Last Admin: 07/16/17 09:08 Dose: 5 mg Arformoterol Tartrate (Brovana) 15 mcg IH [id number] [facility] Last Admin: 07/16/17 07:32 Dose: 15 mcg Bisacodyl (Dulcolax) 5 mg PO DAILY PRN PRN Reason: Constipation Last Admin: 07/15/17 09:47 Dose: 5 mg Budesonide (Pulmicort Respules) 0.5 mg IH [id number] [facility] Last Admin: 07/16/17 07:32 Dose: 0.5 mg Enoxaparin Sodium (Lovenox) 30 mg SC DAILY [facility] PRN Reason: Protocol Last Admin: 07/16/17 09:08 Dose: 30 mg Famotidine (Pepcid) 40 mg PO HS [facility] Last Admin: 07/15/17 22:12 Dose: 40 mg Potassium Phosphate 15 mmole/ (Sodium Chloride) 1,005 mls @ 60 mls/hr IV .[id number] [facility] Last Admin: 07/15/17 09:49 Dose: 60 mls/hr Insulin Human Regular (Humulin R Med) 0 units SC ACHS [facility] PRN Reason: Protocol Last Admin: 07/16/17 12:16 Dose: 1 units Ketoconazole (Nizoral) 0 gm TOP BID [facility] Last Admin: 07/16/17 09:11 Dose: 1 applic Lidocaine (Lidoderm) 2 ea TD HS [facility] Last Admin: 07/15/17 22:12 Dose: 2 ea Loratadine (Claritin) 10 mg PO DAILY [facility] Last Admin: 07/16/17 09:09 Dose: 10 mg Losartan Potassium (Cozaar) 50 mg PO DAILY [facility] Last Admin: 07/16/17 11:02 Dose: 50 mg Magnesium Hydroxide (Milk Of Magnesia) 15 ml PO DAILY PRN PRN Reason: Indigestion / Heartburn Montelukast Sodium (Singulair) 10 mg PO HS [facility] Last Admin: 07/15/17 22:12 Dose: 10 mg Morphine Sulfate (Morphine Extended Release Tab) 15 mg PO Q12 [facility] Last Admin: 07/16/17 09:09 Dose: 15 mg Morphine Sulfate (Morphine) 2 mg IVP Q4H PRN PRN Reason: Pain, severe (8-10) Last Admin: 07/15/17 18:40 Dose: 2 mg Morphine Sulfate (Morphine Immediate Release Tab) 15 mg PO Q6H PRN PRN Reason: Pain, moderate (4-7) Last Admin: 07/16/17 11:04 Dose: 15 mg Nicotine (Nicoderm Cq) 1 patch TD DAILY [facility] Last Admin: 07/16/17 09:08 Dose: 1 patch Nystatin (Nystatin Oral Susp) 5 ml PO QID [facility] Last Admin: 07/16/17 13:05 Dose: 5 ml Ondansetron HCl (Zofran Inj) 4 mg IVP Q4H PRN PRN Reason: Nausea/Vomiting Last Admin: 07/15/17 09:47 Dose: 4 mg Polyethylene Glycol (Miralax) 17 gm PO BID [facility] Last Admin: 07/16/17 09:10 Dose: 17 gm Potassium Phos/Sodium Phos (Neutra-Phos) 1 pkt PO BID [facility] Last Admin: 07/16/17 09:08 Dose: 1 pkt Sucralfate (Carafate Oral Susp) 1 gm PO 0600,1600 [facility] Last Admin: 07/16/17 06:00 Dose: 1 gm Zolpidem Tartrate (Ambien) 5 mg PO HS [facility] PRN Reason: Protocol Last Admin: 07/15/17 22:11 Dose: 5 mg - Labs Labs: 07/16/17 06:00 07/16/17 06:00 PT 14.0 SECONDS (9.4-12.5) H 07/11/17 19:53 INR 1.22 (0.93-1.08) H 07/11/17 19:53 APTT 24.8 Seconds (25.1-36.5) L 07/11/17 19:53
--- NOTE | 2017-07-16 15:57 | PN ---
DATE: 07/16/2017 PULMONARY PROGRESS NOTE REFERRING PHYSICIAN: Dr. Puente. SUBJECTIVE: She is lying in the bed, feels much better, has a good bowel movement last night. No headache, no rhinitis. Short of breath with exertion. No nausea. No vomiting. No leg pain or leg swelling. PHYSICAL EXAMINATION: GENERAL: In no acute distress. VITAL SIGNS: Temperature is 98, heart rate is , respiratory rate is 22, blood pressure 166/89, pulse ox 96% on room air. HEENT: Moist mucous membrane. Crowded airway. Mallampati score is 4. NECK: Supple. No JVD. LUNGS: Have a few scattered rhonchi. HEART: S1 and S2. ABDOMEN: Soft, nontender. No organomegaly. EXTREMITIES: No edema. NEUROLOGIC: Awake, alert. Follows simple commands. MEDICATIONS: She is on Ambien 5 mg at bedtime p.r.n., Brovana mcg inhaled twice a day, Carafate 1 g twice a day, Claritin 10 mg daily, Cozaar 50 mg daily, Dulcolax p.r.n. basis, insulin coverage, Lidoderm patch to affected area, Lovenox 30 mg subcu daily, MiraLax 17 g twice a day, morphine 2 mg every 4 hour p.r.n., morphine sulfate extended release 15 mg every 12 hour, Neutra-Phos 1 pack twice a day, NicoDerm patch daily, Nizoral p.r.n. basis, Norvasc 5 mg daily, nystatin oral suspension 5 mL q.i.d., Pepcid 40 mg at bedtime, potassium and phosphorus IV has been given, Pulmicort inhaled twice a day, Singulair 10 mg daily, Tylenol p.r.n., Xanax 0.25 mg twice a day, Zofran p.r.n. basis. LABORATORY DATA: Shows hemoglobin 9.1, hematocrit 29.4, WBC 12.8, platelet is 164. Sodium 136, potassium 2.2, chloride 100, bicarbonate 29, BUN is 7, creatinine 0.3, glucose 134, calcium is 7.8, phosphorus 2.6, magnesium 2.1, AST 75, ALT 65, alkaline phosphatase is 414. Albumin is 2.9. IMPRESSION AND PLAN: Metastatic lung cancer, which is progressive at present time involving liver, bones, almost whole spine is involved, has a retroperitoneal lymph node, chronic lung disease, anemia, electrolyte imbalance, status post constipation, may have sleep apnea syndrome, activities of daily living dysfunction. I spoke to the patient in detail. Try to get out of bed to chair, but spine precaution. Continue stool softener, IV fluid, bronchodilator, Oncology followup. Rboert Eastman MD
--- NOTE | 2017-07-16 16:30 | PN ---
DATE: 07/16/2017 SUBJECTIVE: The patient seen in bed in no acute distress, nontoxic. PHYSICAL EXAMINATION: VITAL SIGNS: Temperature is 98, blood pressure is 160/80, respiratory rate 22. HEENT: Unremarkable. NECK: Supple. LUNGS: Have decreased breath sounds. HEART: Normal S1, S2. ABDOMEN: Soft and nontender. LABORATORY DATA: Reveals a white count of 12,800, hemoglobin of 9, platelets of 164. BUN of 7, creatinine of 0.3 and last procalcitonin was from the 19, which is 1.99. Urinalysis is noted and microbiology is noted as yeast in the urine. The blood cultures are all negative and a repeat urine culture is negative. Review of orders reveals the patient to be off of antibiotics. ASSESSMENT AND PLAN: This 72-year-old female was seen in room 360 this morning, bed 2 with leukocytosis secondary to GM-CSF infusion, stage III decubitus ulcer status post sepsis, neutropenia. Currently now off of antibiotics in this patient who is diabetic, hypertensive, history of 2 back tumor and obesity and depression. The patient is at risk for developing nosocomial infections. We will follow closely with you. Jorge Luis Hernandez MD
--- NOTE | 2017-07-16 17:01 | PN ---
DATE: 07/16/2017 This is an [facility] visit on the medical floor for Dr. Puente. SUBJECTIVE: The patient is a 72-year-old female seen sitting up in bed with nurse at the bedside. Now, relieved of her significant opioid-induced constipation with the patient feeling better. 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 Discharged to rehab with the patient then lost to follow up until she appeared at the Oncology clinic, where she then was readmitted for her profound weakness and ability to walk, decreased appetite with intractable pain of her cancer. At present, her pain is now controlled with consultants' recommendations implemented for her constipation, now significantly improved with the patient now feeling better. She continues to have sacral decubitus on her back side, which accorded significant discomfort, which also complicated her ability to defecate without pain. The patient is also status post recent testing including an MRI of the brain, which was reported as negative for metastases; however, her cervical spine, thoracic spine and lumbar spine show significant metastatic changes. For which, she received Aredia recently with plan to continue her chemotherapy as per Dr. Puente's protocol once she is stable. OBJECTIVE: VITAL SIGNS: Temperature 97.6, pulse 91, respirations 22, blood pressure 166/89 with a pulse ox of 96%. HEENT: Tongue is moist. NECK: Supple.. HEART: Tachy rate, regular rhythm. LUNGS: Clear. ABDOMEN: Obese, soft, nontender. EXTREMITIES: No edema. SKIN: Warm and dry . NEUROLOGIC: Awake, alert and oriented x3 with decreased strength to her legs. SKIN: Shows a decubitus, which is dressed now to her sacral area. LABORATORY DATA: The patient's labs were drawn this morning. A white blood cell count of 12.8, hemoglobin 9.1, hematocrit of 29.4, platelets count of 164, 000 with a chem metabolic panel showing a potassium of 3.2 with a nonfasting glucose of 161, calcium of 7.8, AST of 75, ALT of 65, alkaline phosphatase of 414. The patient's MRIs were done with report as above and from previous dictations with significant metastatic changes noted in her bony skeleton with no spinal cord compromise noted. 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 PLAN: For this patient after conversation with Dr. Puente is to continue present medical regimen. There is a long discussion to help with the patient's family members including her son and her daughter with the patient's [id number], a physician, the Director of Family Medicine at [facility] in [place] with copies of her testing given to the family as per her daughter who has power of glassware maker demonstrator per her mother's permission, so that they maybe updated on the patient's these process and progress or lack thereof. We also appreciate the consults with consultants' as above with Dr. Carlos, gastrointestinal for her significant problem with her opioid-induced constipation. This is a complex patient with a comprehensive medically necessary and appropriate visit carried out in excess of 40 minutes [id number] time with discussion with nurses, discussion with Dr. Eastman, Dr. Carlos, Dr. Palmer, Dr. Li, Neurology along with patient's family members including her son and her daughter at length regarding her disease process and quality of life issues. At this point, the patient continues to be a full code with consideration to change in the future should her condition deteriorate. Yosef Reis MD
[2017-07-16] MEDS: Lidocaine 5% Patch TD SCH (21:56)
--- NOTE | 2017-07-17 01:51 | PN ---
DATE: 07/16/2017 SUBJECTIVE: This patient was seen and evaluated earlier today. Patient did have a large bowel movement after the lactulose enema yesterday. Feels much better now. PHYSICAL EXAMINATION: VITAL SIGNS: Temperature is 97.9, pulse is 98, blood pressure is 138/73. HEENT: Atraumatic, anicteric. NECK: Supple. HEART: S1, S2 heard. LUNGS: Bilateral air entry present. ABDOMEN: Soft. No tenderness. LABORATORY DATA: Hemoglobin 9.1, hematocrit 29.4, WBC 12.8, platelets 164. AST 75, ALT 65, alkaline phosphatase 414. ASSESSMENT AND PLAN: This 72-year-old patient with metastatic lung cancer liver, bone, and spine. Had a fecal impaction, had severe constipation, which improved. Patient did have Relistor, no significant improvement, and also MiraLax before. Had a good result after the lactulose enema. Patient is on chronic pain medication; patient needs to be maintained on long-term laxatives or Movantik for narcotic-induced constipation. Elevated liver function tests, liver metastasis. Would request baseline hepatitis profile and also ultrasound scan to further evaluate the liver function tests to further evaluate the liver.I will dw Dr Yosef Srinivasan prior to contemplating these tests Thank you very much for allowing us to participate in the care of the patient. Avinash Carlos MD MTDJuan
[2017-07-17] MEDS: Sucralfate 1 gm/10 ml Oral Susp UD PO SCH ×2 (05:58→17:19)
[2017-07-17 06:24] LABS: BASO # 0.02 K/mm3 (0.0-2.0); BASO % 0.2 % (0.0-3.0); EOS % 0.2 % (1.5-5.0); GRAN # 10.59 (1.4-6.5); GRAN % 84.1 % (50.0-68.0); HEMOGLOBIN 8.3 g/dL (12.0-16.0); LYMPH # 0.7 (1.2-3.4); LYMPH % 5.9 % (22.0-35.0); MEAN CELL VOLUME 94.3 fl (80.0-105.0); MEAN CORPUSCULAR HEMOGLOBIN 29.6 pg (25.0-35.0); MEAN CORPUSCULAR HGB CONC 31.4 g/dl (31.0-37.0); MEAN PLATELET VOLUME 9.9 fl (7.0-11.0); MONO # 1.2 (0.1-0.6); MONO % 9.6 % (1.0-6.0); RBC 2.8 10^6/uL (3.5-6.1); RED CELL DISTRIBUTION WIDTH 20.1 % (11.5-14.5); WHITE BLOOD COUNT 12.6 10^3/ul (4.5-11.0)
[2017-07-17 06:35] LABS: INR 1.14 (0.93-1.08); PROTHROMBIN TIME 13.2 SECONDS (9.4-12.5)
[2017-07-17 06:36] LABS: ALB/GLOB RATIO 1.1 (1.1-1.8); ALT/SGPT 60 U/L (7-56); AST/SGOT 59 U/L (14-36); BLOOD UREA NITROGEN 8 mg/dL (7-21); GFR AFRICAN-AMERICAN > 60; GFR NON-AFRICAN AMERICAN > 60
[2017-07-17] MEDS: Budesonide 0.5 mg/2 ml Inhal Susp UD IH SCH ×2 (07:12→19:58)
[2017-07-17] MEDS: Arformoterol 15 mcg/2 ml Inh Sol IH SCH ×2 (07:12→19:58)
[2017-07-17] MEDS: Insulin Reg-MEDIUM-Coverage SC SCH ×4 (08:13→21:40)
[2017-07-17] MEDS: Morphine 15 mg Immediate Release Tab PO PRN ×2 (08:14→14:11)
[2017-07-17] MEDS ORDERED: Potassium Chloride 20 mEq ER Tab PO ONE (09:30)
[2017-07-17] MEDS: Potassium & Sodium Phosphate PO SCH ×2 (10:03→17:19)
[2017-07-17] MEDS: Nystatin 100,000 Units/ml Oral Susp 5 ml UD PO SCH ×4 (10:03→21:39)
[2017-07-17] MEDS: POLYETHYLENE GLYCOL 3350 17 GM/Dose PACKET PO SCH ×2 (10:03→17:20)
[2017-07-17] MEDS: Morphine 15 mg SR Tab PO SCH ×2 (10:04→21:40)
[2017-07-17] MEDS: Enoxaparin 30 mg Syringe SC SCH (10:05)
--- NOTE | 2017-07-17 10:54 | CP.PCM.PN ---
Subjective - Date & Time of Evaluation Date of Evaluation: 07/17/17 Time of Evaluation: 10:53 - Subjective Subjective: Nephrology Consultation Note For Dr iRley Assessment: Stable Hypokalemia Hypertension Abnormal LFT Metastatic lung cancer DM, HTN Plan We'll supplement with potassium 40 mg today Hypertension controlled with meds as ordered. BP controlled on losartan 50 mg per day and norvasc pending vitamin D level Glycemic control Further work up for as per primary team Thanks for allowing me to participate in care of your patient. Please call if any Qs. Dr Manuel Lawrence Office: [phone] Subjective: Noted events overnight. Patients feels okay. Denies chest pain, palpitation, shortness of breath, leg swelling. All other negative Physical Examination: General Appearance: Comfortable, in no acute respiratory distress, co-operative . Vitals reviewed and noted as below Head; Atraumatic, normocephalic ENT: no ulcers no thrush. Tongue is midline. Oropharynx: no rash or ulcers. EYES: Pupils are equal, round and reactive to light accommodation. Eye muscles and extraocular movement intact. Sclera is anicteric. Neck; supple no lymphadenopathy, no thyromegaly or bruit Lungs: Normal respiratory rate/effort. Breath sounds bilateral equal and clear Heart: Normal rate. s1s2 normal. No rub or gallop. Extremities: no edema. has varicose veins Neurological: Patient is alert, awake and oriented to person, place and time. No focal deficit. Strength bilateral appropriate and equal Skin: Warm and dry. Normal turgor. No rash. Palpitation: Normal elasticity for age Abdomen: Abdomen is soft. Bowel sounds +. There is no abdominal tenderness, no guarding/rigidity no organomegaly Psych: limited insight and normal affect/mood MSK: no joint tenderness or swelling. Digits and nails normal, no deformity : kidney or bladder not palpable Labs/imaging reviewed. Past medical history, past surgical history, family history, social history, allergy reviewed and noted as below Family hx: no hx of CKD. Rest non-contributory Objective - Vital Signs/Intake and Output Vital Signs (last 24 hours): Temp Pulse Resp BP Pulse Ox 97.1 F L 90 20 138/70 97 07/17/17 07:42 07/17/17 10:05 07/17/17 07:42 07/17/17 10:05 07/17/17 07:42 - Medications Medications: Current Medications Acetaminophen (Tylenol 325mg Tab) 650 mg PO Q6H PRN PRN Reason: general discomfort Alprazolam (Xanax) 0.25 mg PO BID [facility] Last Admin: 07/17/17 10:05 Dose: 0.25 mg Amlodipine Besylate (Norvasc) 5 mg PO DAILY [facility] Last Admin: 07/17/17 10:05 Dose: 5 mg Arformoterol Tartrate (Brovana) 15 mcg IH [id number] [facility] Last Admin: 07/17/17 07:12 Dose: 15 mcg Bisacodyl (Dulcolax) 5 mg PO DAILY PRN PRN Reason: Constipation Last Admin: 07/15/17 09:47 Dose: 5 mg Budesonide (Pulmicort Respules) 0.5 mg IH [id number] [facility] Last Admin: 07/17/17 07:12 Dose: 0.5 mg Enoxaparin Sodium (Lovenox) 30 mg SC DAILY [facility] PRN Reason: Protocol Last Admin: 07/17/17 10:05 Dose: 30 mg Famotidine (Pepcid) 40 mg PO HS [facility] Last Admin: 07/16/17 21:56 Dose: 40 mg Potassium Phosphate 15 mmole/ (Sodium Chloride) 1,005 mls @ 60 mls/hr IV .[id number] [facility] Last Admin: 07/15/17 09:49 Dose: 60 mls/hr Insulin Human Regular (Humulin R Med) 0 units SC ACHS [facility] PRN Reason: Protocol Last Admin: 07/17/17 08:13 Dose: 1 units Ketoconazole (Nizoral) 0 gm TOP BID [facility] Last Admin: 07/17/17 10:03 Dose: 1 applic Lidocaine (Lidoderm) 2 ea TD HS [facility] Last Admin: 07/16/17 21:56 Dose: 2 ea Loratadine (Claritin) 10 mg PO DAILY [facility] Last Admin: 07/17/17 10:03 Dose: 10 mg Losartan Potassium (Cozaar) 50 mg PO DAILY [facility] Last Admin: 07/17/17 10:05 Dose: 50 mg Magnesium Hydroxide (Milk Of Magnesia) 15 ml PO DAILY PRN PRN Reason: Indigestion / Heartburn Montelukast Sodium (Singulair) 10 mg PO HS [facility] Last Admin: 07/16/17 21:55 Dose: 10 mg Morphine Sulfate (Morphine Extended Release Tab) 15 mg PO Q12 [facility] Last Admin: 07/17/17 10:04 Dose: 15 mg Morphine Sulfate (Morphine) 2 mg IVP Q4H PRN PRN Reason: Pain, severe (8-10) Last Admin: 07/15/17 18:40 Dose: 2 mg Morphine Sulfate (Morphine Immediate Release Tab) 15 mg PO Q6H PRN PRN Reason: Pain, moderate (4-7) Last Admin: 07/17/17 08:14 Dose: 15 mg Nicotine (Nicoderm Cq) 1 patch TD DAILY [facility] Last Admin: 07/17/17 10:03 Dose: 1 patch Nystatin (Nystatin Oral Susp) 5 ml PO QID [facility] Last Admin: 07/17/17 10:03 Dose: 5 ml Ondansetron HCl (Zofran Inj) 4 mg IVP Q4H PRN PRN Reason: Nausea/Vomiting Last Admin: 07/15/17 09:47 Dose: 4 mg Polyethylene Glycol (Miralax) 17 gm PO BID [facility] Last Admin: 07/17/17 10:03 Dose: 17 gm Potassium Phos/Sodium Phos (Neutra-Phos) 1 pkt PO BID [facility] Last Admin: 07/17/17 10:03 Dose: 1 pkt Sucralfate (Carafate Oral Susp) 1 gm PO 0600,1600 [facility] Last Admin: 07/17/17 05:58 Dose: 1 gm Zolpidem Tartrate (Ambien) 5 mg PO HS [facility] PRN Reason: Protocol Last Admin: 07/16/17 21:55 Dose: 5 mg - Labs Labs: 07/17/17 06:00 07/17/17 06:00 PT 13.2 SECONDS (9.4-12.5) H 07/17/17 06:00 INR 1.14 (0.93-1.08) H 07/17/17 06:00 APTT 24.8 Seconds (25.1-36.5) L 07/11/17 19:53
--- NOTE | 2017-07-17 14:10 | PN ---
DATE: SUBJECTIVE: The patient is in bed, in no acute distress, nontoxic, was seen earlier this morning in room 360. OBJECTIVE VITAL SIGNS: Temperature is 97, blood pressure is 130/70, respiratory rate of 18. HEENT: Examination is unremarkable. NECK: Supple. LUNGS: Have decreased breath sounds. HEART: Normal S1, S2. ABDOMEN: Soft, nontender. LABORATORY DATA: Examination reveals a white count of 12,600 this morning. Hemoglobin of 8, platelets of 124,000. Chemistries reveals a BUN of 8, creatinine 0.3, alkaline phosphatase is 388 with mild elevation of AST and ALT and Dr. Carlos's note is reviewed, Gastroenterology. 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 Overall prognosis is poor. Jorge Luis Hernandez MD
[2017-07-17] MEDS ORDERED: Ergocalciferol 50,000 Intl Units Cap PO SCH ×2 (15:15→18:00)
--- NOTE | 2017-07-17 18:20 | PN ---
DATE: 07/17/2017 This is [facility] visit on the medical floor. For Dr. Puente. SUBJECTIVE: The patient is a 72-year-old female seen sitting up in bed with nurse at the bedside, now reported she feels significantly improved after her constipation, opioid-induced, was relieved. 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 The patient also had radiation to the thoracic spine; however, completed only one cycle of systemic chemotherapy with carboplatin and etoposide with significant pancytopenia and sepsis, from which she then recovered, was discharged for rehab and unfortunately deteriorated since then. However, now she reports her weakness has significantly improved with her labs being monitored. It should be noted that the labs were drawn today from her port, we will ask for lab to be drawn tomorrow peripheral stick, so that we may access her anemia better as her hemoglobin is low with consideration for transfusion as indicated. She also has acute sacral decubitus ulcer, which she reports is modestly improving with her appetite much better now. PHYSICAL EXAMINATION: VITAL SIGNS: Temperature 97.1, pulse 90, respirations 20, blood pressure 130/70, pulse ox of 97%. HEENT: Unremarkable. Tongue is moist and midline. NECK: Supple. HEART: Regular rate. LUNGS: Clear. ABDOMEN: Obese, soft, nontender. EXTREMITIES: No edema. 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 SKIN: With continued dressings to the sacral area for her decubitus, otherwise warm and dry. LABORATORY DATA: The patient's labs were drawn, white blood cell count of 12.6; hemoglobin 8.3, yesterday's hemoglobin was 9.1 with a hemoglobin of 8.4 approximately 5 days prior with no blood transfused at that time. Platelet count of 124,000, hematocrit 26.4. The patient's chem metabolic panel shows a potassium of 3.4, which will be corrected by Dr. Lawrence, Renal, electrolytes. Nonfasting sugar of 185, AST of 59, ALT of 60, alkaline phosphatase 388. Vitamin D of less than 12. INR of 1.14. ASSESSMENT: For this patient is that of anemia of chronic disease, consider transfusion; stage IV small cell carcinoma of the lung with bony metastases including cervical, thoracic and lumbar spine metastases, liver metastases, status post radiation; history of neutropenic sepsis; diabetes mellitus; hypertension; deconditioning; hypovitaminosis D; smoker; electrolyte imbalance; severe constipation, improved; intractable pain of cancer. PLAN: For this patient, after conversation with Dr. Puente is to continue present medical regimen. We will ask for hepatitis A, B, C panel to be drawn. We will replenish her vitamin D 50,000 units once a week, which was ordered for. We will continue her present medical regimen. We will check for labs in the morning including iron and TIBC with a peripheral stick to be done tomorrow to ascertain her need for blood as indicated. She continues on Granix as per Dr. Puente's protocol until tomorrow with her analgesics to continue for her intractable pain of cancer. The prognosis for this patient is guarded. We will monitor clinically and with labs for her deconditioning. Once she has improved, we will recommend reconditioning whether at home or at a different facility along with recommendations for the patient to resume her chemotherapy once she is stable as per Dr. Puente's recommendation. Yosef Reis MD
--- NOTE | 2017-07-17 19:49 | PN ---
DATE: PULMONARY PROGRESS NOTE REFERRING PHYSICIAN: Dr. Puente. SUBJECTIVE: Patient is lying in the bed, feels much better, been in a reclining chair for a couple of hours, able to stand up herself. No headache, no rhinitis. Cough is better. No nausea, no vomiting, no diarrhea, no constipation. Had a bowel movement. No leg pain or leg swelling. OBJECTIVE: GENERAL: In no acute distress. VITAL SIGNS: Temperature is 98, heart is 94, respiratory rate is 20, blood pressure 130/76, pulse ox 95% on room air. HEENT: Moist mucous membranes. Crowded airway. Mallampati score is 4. NECK: Supple. No JVD. LUNGS: Have a fair airflow with rhonchi. HEART: S1, S2. ABDOMEN: Soft, nontender. No organomegaly. EXTREMITIES: There is no edema. NEUROLOGIC: Awake, alert, and follows simple command. MEDICATIONS: She is on Ambien 5 mg at bedtime, Brovana 15 mcg inhaled twice a day, Carafate 1 g twice a day, Claritin 10 mg daily, Cozaar 50 mg daily, vitamin D 50,000 units every 7 days, Dulcolax 5 mg daily, insulin coverage, lidocaine to the affected area, Lovenox 30 mg subcu daily, milk of magnesia 15 mL daily p.r.n., MiraLax 17 g twice a day, morphine 2 mg every 4 hour p.r.n., morphine extended release 15 mg every 12 hours, morphine immediate release 15 mg every 6 hours p.r.n., Neutra-Phos one pack twice a day, Nicoderm patch daily, Nizoral to the affected area, Norvasc 5 mg daily, nystatin oral suspension four times daily, Pepcid 40 mg daily, Pulmicort inhaled twice a day, Singulair 10 mg daily, Tylenol p.r.n., Xanax 0.25 mg twice a day, Zofran p.r.n. basis. LABORATORY DATA: Shows hemoglobin 8.3, hematocrit 26.4, WBC 12.6, platelet count is 124. INR 1.14. Sodium 139, potassium 3.4, chloride 105, bicarbonate 28, BUN 8, creatinine 0.3, glucose 168, calcium is 8.0, phosphorus 2.7, magnesium 2.2. AST 59, ALT 60, alk phos is 388. Albumin is 3.0. Vitamin D is less than 12. IMPRESSION AND PLAN: Metastatic lung cancer which is a progressive disease involving the liver and bone, extensively involving the spine, retroperitoneal lymph node; chronic lung disease; anemia. Pulmonary point of view, she is doing much better. Continue bronchodilator. Keep head at 45 degrees. Gastric prophylaxis, deep venous thrombosis prophylaxis. Start physical therapy. Will benefit from TICU-type services. Thank you and we will follow with you. Robert Eastman MD
[2017-07-17] MEDS: Lidocaine 5% Patch TD SCH (21:40)
[2017-07-18] MEDS: Sucralfate 1 gm/10 ml Oral Susp UD PO SCH ×2 (05:57→17:24)
[2017-07-18 06:32] LABS: BASO # 0.02 K/mm3 (0.0-2.0); BASO % 0.2 % (0.0-3.0); EOS % 0.3 % (1.5-5.0); GRAN # 8.85 (1.4-6.5); GRAN % 86.8 % (50.0-68.0); HEMOGLOBIN 8.3 g/dL (12.0-16.0); LYMPH # 0.8 (1.2-3.4); MEAN CELL VOLUME 95.1 fl (80.0-105.0); MEAN CORPUSCULAR HEMOGLOBIN 29.3 pg (25.0-35.0); MEAN CORPUSCULAR HGB CONC 30.9 g/dl (31.0-37.0); MEAN PLATELET VOLUME 10.1 fl (7.0-11.0); MONO # 0.5 (0.1-0.6); MONO % 4.7 % (1.0-6.0); RBC 2.83 10^6/uL (3.5-6.1); RED CELL DISTRIBUTION WIDTH 20.8 % (11.5-14.5)
[2017-07-18 06:41] LABS: IRON 104 ug/dL (45-180)
[2017-07-18 06:50] LABS: % IRON SATURATION 45 % (20-55); TOTAL IRON BINDING CAPACITY 233 ug/dL (265-497)
[2017-07-18 06:52] LABS: ALB/GLOB RATIO 1.1 (1.1-1.8); ALT/SGPT 55 U/L (7-56); AST/SGOT 59 U/L (14-36); BLOOD UREA NITROGEN 11 mg/dL (7-21); CALCIUM 8.6 mg/dL (8.4-10.5); GFR AFRICAN-AMERICAN > 60; GFR NON-AFRICAN AMERICAN > 60
[2017-07-18] MEDS: Budesonide 0.5 mg/2 ml Inhal Susp UD IH SCH ×2 (07:26→19:47)
[2017-07-18] MEDS: Arformoterol 15 mcg/2 ml Inh Sol IH SCH ×2 (07:26→19:47)
[2017-07-18] MEDS: Insulin Reg-MEDIUM-Coverage SC SCH ×4 (08:00→21:59)
--- NOTE | 2017-07-18 08:40 | CP.PCM.PN ---
Objective - Vital Signs/Intake and Output Vital Signs (last 24 hours): Temp Pulse Resp BP Pulse Ox 98.2 F 89 20 148/76 95 07/18/17 07:50 07/18/17 07:50 07/18/17 07:50 07/18/17 07:50 07/18/17 07:50 Intake and Output: 07/18/17 07/18/17 06:59 18:59 Output Total 350 Balance -350 - Medications Medications: Current Medications Acetaminophen (Tylenol 325mg Tab) 650 mg PO Q6H PRN PRN Reason: general discomfort Alprazolam (Xanax) 0.25 mg PO BID [facility] Last Admin: 07/17/17 17:19 Dose: 0.25 mg Amlodipine Besylate (Norvasc) 5 mg PO DAILY [facility] Last Admin: 07/17/17 10:05 Dose: 5 mg Arformoterol Tartrate (Brovana) 15 mcg IH [id number] [facility] Last Admin: 07/18/17 07:26 Dose: 15 mcg Bisacodyl (Dulcolax) 5 mg PO DAILY PRN PRN Reason: Constipation Last Admin: 07/15/17 09:47 Dose: 5 mg Budesonide (Pulmicort Respules) 0.5 mg IH [id number] [facility] Last Admin: 07/18/17 07:26 Dose: 0.5 mg Enoxaparin Sodium (Lovenox) 30 mg SC DAILY [facility] PRN Reason: Protocol Last Admin: 07/17/17 10:05 Dose: 30 mg Ergocalciferol (Drisdol 50,000 Intl Units Cap) 1 cap PO Q7D [facility] Last Admin: 07/17/17 17:19 Dose: 1 cap Famotidine (Pepcid) 40 mg PO HS [facility] Last Admin: 07/17/17 21:39 Dose: 40 mg Insulin Human Regular (Humulin R Med) 0 units SC ACHS [facility] PRN Reason: Protocol Last Admin: 07/17/17 21:40 Dose: 1 units Ketoconazole (Nizoral) 0 gm TOP BID [facility] Last Admin: 07/17/17 17:19 Dose: 1 applic Lidocaine (Lidoderm) 2 ea TD HS [facility] Last Admin: 07/17/17 21:40 Dose: 2 ea Loratadine (Claritin) 10 mg PO DAILY [facility] Last Admin: 07/17/17 10:03 Dose: 10 mg Losartan Potassium (Cozaar) 50 mg PO DAILY [facility] Last Admin: 07/17/17 10:05 Dose: 50 mg Magnesium Hydroxide (Milk Of Magnesia) 15 ml PO DAILY PRN PRN Reason: Indigestion / Heartburn Montelukast Sodium (Singulair) 10 mg PO HS [facility] Last Admin: 07/17/17 21:39 Dose: 10 mg Morphine Sulfate (Morphine Extended Release Tab) 15 mg PO Q12 [facility] Last Admin: 07/17/17 21:40 Dose: 15 mg Morphine Sulfate (Morphine) 2 mg IVP Q4H PRN PRN Reason: Pain, severe (8-10) Last Admin: 07/15/17 18:40 Dose: 2 mg Morphine Sulfate (Morphine Immediate Release Tab) 15 mg PO Q6H PRN PRN Reason: Pain, moderate (4-7) Last Admin: 07/17/17 14:11 Dose: 15 mg Nicotine (Nicoderm Cq) 1 patch TD DAILY [facility] Last Admin: 07/17/17 10:03 Dose: 1 patch Nystatin (Nystatin Oral Susp) 5 ml PO QID [facility] Last Admin: 07/17/17 21:39 Dose: 5 ml Ondansetron HCl (Zofran Inj) 4 mg IVP Q4H PRN PRN Reason: Nausea/Vomiting Last Admin: 07/15/17 09:47 Dose: 4 mg Polyethylene Glycol (Miralax) 17 gm PO DAILY [facility] Potassium Phos/Sodium Phos (Neutra-Phos) 1 pkt PO BID [facility] Last Admin: 07/17/17 17:19 Dose: 1 pkt Sucralfate (Carafate Oral Susp) 1 gm PO 0600,1600 [facility] Last Admin: 07/18/17 05:57 Dose: 1 gm Zolpidem Tartrate (Ambien) [address] [facility] PRN Reason: Protocol Last Admin: 07/17/17 21:39 Dose: 5 mg - Labs Labs: 07/18/17 05:30 07/18/17 05:30 PT 13.2 SECONDS (9.4-12.5) H 07/17/17 06:00 INR 1.14 (0.93-1.08) H 07/17/17 06:00 APTT 24.8 Seconds (25.1-36.5) L 07/11/17 19:53
[2017-07-18] MEDS: Morphine 15 mg SR Tab PO SCH ×2 (09:18→22:01)
[2017-07-18] MEDS: Enoxaparin 30 mg Syringe SC SCH (09:19)
[2017-07-18] MEDS: Potassium & Sodium Phosphate PO SCH ×2 (09:19→17:24)
[2017-07-18] MEDS: Nystatin 100,000 Units/ml Oral Susp 5 ml UD PO SCH ×4 (09:19→22:04)
[2017-07-18] MEDS: POLYETHYLENE GLYCOL 3350 17 GM/Dose PACKET PO SCH (09:20)
[2017-07-18] MEDS ORDERED: DiphenhydrAMINE 50 mg/ml Inj IVP ONE (10:06)
[2017-07-18 10:45] LABS: WHITE BLOOD COUNT 10.2 10^3/ul (4.5-11.0)
--- NOTE | 2017-07-18 11:20 | CP.PCM.DIS ---
Provider - Provider Date of Admission: 07/11/17 18:41 Attending physician: Yosef Reis MD Primary care physician: Zev Vail MD Consults: ID: Mary Nephro: Crystaljacob Pulm: Jaren Neuro: A. Jen Palliative: Paramonte GI: Breanna Neurosurg: Miriam Time Spent in preparation of Discharge (in minutes): 35 Diagnosis - Discharge Diagnosis (1) Dehydration Status: Resolved Priority: High (2) FTT (failure to thrive) in adult Status: Acute Priority: High Comment: Improved but not yet resolved (3) Small cell carcinoma Status: Chronic Priority: High (4) Liver mass Status: Chronic Priority: High (5) Lung mass Status: Chronic Priority: High (6) Spinal cord compression due to malignant neoplasm metastatic to spine Status: Ruled-out Priority: High Hospital Course - Lab Results Lab Results: Micro Results 07/14/17 12:00 Blood-Venous Blood Culture - Preliminary NO GROWTH AFTER 3 DAYS 07/14/17 14:00 Blood-Venous Blood Culture - Preliminary NO GROWTH AFTER 3 DAYS 07/15/17 07:40 Rectal Fluid VRE Culture - Final 07/11/17 19:50 Blood Blood Culture - Final NO GROWTH AFTER 5 DAYS 07/11/17 19:50 Blood Gram Stain - Final TEST NOT PERFORMED 07/11/17 19:20 Blood Blood Culture - Final NO GROWTH AFTER 5 DAYS 07/11/17 19:20 Blood Gram Stain - Final TEST NOT PERFORMED 07/13/17 13:10 Urine,Clean Catch Urine Culture - Final Yeast Species 07/13/17 22:26 Urine Urine Culture - Final No Growth (<1,000 CFU/ML) 07/11/17 22:51 Urine Urine Culture - Final 50-100,000 CFU/ML. MULTIPLE SPECIES. SUGGEST REPEAT SPECIMEN. Most Recent Lab Values WBC 10.2 10^3/ul (4.5-11.0) 07/18/17 05:30 RBC 2.83 10^6/uL (3.5-6.1) L 07/18/17 05:30 Hgb 8.3 g/dL (12.0-16.0) L 07/18/17 05:30 Hct 26.9 % (36.0-48.0) L 07/18/17 05:30 MCV 95.1 fl (80.0-105.0) 07/18/17 05:30 MCH 29.3 pg (25.0-35.0) 07/18/17 05:30 MCHC 30.9 g/dl (31.0-37.0) L 07/18/17 05:30 RDW 20.8 % (11.5-14.5) H 07/18/17 05:30 Plt Count 119 10^3/uL (120.0-450.0) L 07/18/17 05:30 MPV 10.1 fl (7.0-11.0) 07/18/17 05:30 Gran % 86.8 % (50.0-68.0) H 07/18/17 05:30 Lymph % (Auto) 8.0 % (22.0-35.0) L 07/18/17 05:30 [place] % (Auto) 4.7 % (1.0-6.0) 07/18/17 05:30 Eos % (Auto) 0.3 % (1.5-5.0) L 07/18/17 05:30 Baso % (Auto) 0.2 % (0.0-3.0) 07/18/17 05:30 Gran # 8.85 (1.4-6.5) H 07/18/17 05:30 Lymph # (Auto) 0.8 (1.2-3.4) L 07/18/17 05:30 [place] # (Auto) 0.5 (0.1-0.6) 07/18/17 05:30 Eos # (Auto) 0.0 (0.0-0.7) 07/18/17 05:30 Baso # (Auto) 0.02 K/mm3 (0.0-2.0) 07/18/17 05:30 Neutrophils % (Manual) 89 % (50.0-70.0) H 07/14/17 06:00 Band Neutrophils % 11 % (0-2) H* 07/14/17 06:00 Lymphocytes % (Manual) TEST NOT PERFORMED 07/14/17 06:00 Monocytes % (Manual) TEST NOT PERFORMED 07/14/17 06:00 Platelet Evaluation Normal (NORMAL) 07/14/17 06:00 PT 13.2 SECONDS (9.4-12.5) H 07/17/17 06:00 INR 1.14 (0.93-1.08) H 07/17/17 06:00 APTT 24.8 Seconds (25.1-36.5) L 07/11/17 19:53 pO2 103 mm/Hg (30-55) H 07/11/17 19:53 VBG pH 7.37 (7.32-7.43) 07/11/17 19:53 VBG pCO2 48.0 (40-60) 07/11/17 19:53 VBG HCO3 27.7 mmol/l (21-28) 07/11/17 19:53 VBG Total CO2 29.2 mmol.L (22-28) H 07/11/17 19:53 VBG O2 Sat (Calc) 98.6 % (40-65) H 07/11/17 19:53 VBG Base Excess 1.7 mmol/L (0.0-2.0) 07/11/17 19:53 VBG Potassium 4.0 mmol/L (3.6-5.2) 07/11/17 19:53 Sodium 138.0 mmol/L (132-148) 07/11/17 19:53 Chloride 107.0 mmol/L (98-107) 07/11/17 19:53 Glucose 295 mg/dl (65-105) H 07/11/17 19:53 Lactate 1.7 mmol/L (0.7-2.1) 07/11/17 19:53 FiO2 21.0 % 07/11/17 19:53 Sodium 139 mmol/L (132-148) 07/18/17 05:30 Potassium 3.6 mmol/L (3.6-5.0) 07/18/17 05:30 Chloride 106 mmol/L (98-107) 07/18/17 05:30 Carbon Dioxide 27 mmol/L (21-33) 07/18/17 05:30 Anion Gap 10 (10-20) 07/18/17 05:30 BUN 11 mg/dL (7-21) 07/18/17 05:30 Creatinine 0.4 mg/dl (0.7-1.2) L 07/18/17 05:30 Est GFR ( Amer) > 60 07/18/17 05:30 Est GFR (Non-Af Amer) > 60 07/18/17 05:30 POC Glucose (mg/dL) 169 mg/dL (65-110) H 07/18/17 07:33 Random Glucose 198 mg/dL (70-110) H 07/18/17 05:30 Calcium 8.6 mg/dL (8.4-10.5) 07/18/17 05:30 Phosphorus 2.8 mg/dL (2.5-4.5) 07/18/17 05:30 Magnesium 2.2 mg/dL (1.7-2.2) 07/18/17 05:30 Iron 104 ug/dL (45-180) 07/18/17 05:30 TIBC 233 ug/dL (265-497) L 07/18/17 05:30 % Saturation 45 % (20-55) 07/18/17 05:30 Total Bilirubin 0.5 mg/dL (0.2-1.3) 07/18/17 05:30 AST 59 U/L (14-36) H 07/18/17 05:30 ALT 55 U/L (7-56) 07/18/17 05:30 Alkaline Phosphatase 381 U/L (38-126) H 07/18/17 05:30 Lactate Dehydrogenase 4134 U/L (333-699) H 07/12/17 06:00 Total Protein 5.7 g/dL (5.8-8.3) L 07/18/17 05:30 Albumin 3.0 g/dL (3.0-4.8) 07/18/17 05:30 Globulin 2.7 gm/dL 07/18/17 05:30 Albumin/Globulin Ratio 1.1 (1.1-1.8) 07/18/17 05:30 25-OH Vitamin D Total < 12.8 NG/ML (30.0-100.0) L 07/17/17 06:00 Procalcitonin 1.99 NG/ML (0.19-0.49) H 07/11/17 19:53 Venous Blood Potassium 4.0 mmol/L (3.6-5.2) 07/11/17 19:53 Urine Color Yellow (YELLOW) 07/11/17 22:51 Urine Appearance Clear (CLEAR) 07/11/17 22:51 Urine pH 6.0 (4.7-8.0) 07/11/17 22:51 Ur Specific [place] 1.025 (1.005-1.035) 07/11/17 22:51 Urine Protein Negative mg/dL (<30 mg/dL) 07/11/17 22:51 Urine Glucose (UA) >=1000 mg/dL (NEGATIVE) 07/11/17 22:51 Urine Ketones Trace mg/dL (NEGATIVE) H 07/11/17 22:51 Urine Blood Negative (NEGATIVE) 07/11/17 22:51 Urine Nitrate Negative (NEGATIVE) 07/11/17 22:51 Urine Bilirubin Negative (NEGATIVE) 07/11/17 22:51 Urine Urobilinogen 1.0 E.U./dL (<1 E.U./dL) H 07/11/17 22:51 Ur Leukocyte Esterase Negative Dimitri/uL (NEGATIVE) 07/11/17 22:51 - Hospital Course Hospital Course: This is a 72 yo F with PMH of 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 Of concern, she was unable to self transfer from her transport to the infusion bed , and required 2 person assist, which is a significant decline from the level she showed prior to her discharge from the TCU. She appears to be suffering from failure to thrive, also requiring workup to rule out acute cord compression requiring emergent intervention. While here, she was also seen by Pulm, ID, Nephro, Neuro, GI, and Neurosurg. As per Neuro, MRI of the spine was negative for cord compression, and MRI of the brain was negative for metastatic disease. As per Pulm, given advancement of pulm disease, would recommend aggressive chemo regimen. As per ID, no empiric abx needed at this time, continue wound care for sacral ulcer and treatment for possible candidial rash. As per Nephro, supplemented electrolytes as needed, and improved BP control with losartan. Today, patient was cleared for [facility] for rehab, will discuss with patient's son as well. PT recs [facility] vs home with services, but as per PMD and Neuro, needs either acute rehab or [facility], home with services sub-optimal. Patient amenable to [facility] if one of the ones she wants to go to. Denies acute complaint today, had BM yesterday, is ambulating with PT, and reports ambulating without assistance to commode over the weekend. Tolerating PO diet well. She will receive her last dose of Granix today, and is pending 2 units of pRBCs to improve borderline Hgb as she is only 1 week post-chemo and may experience further decreases while at rehab. Patient was instructed to resume all home medications as prescribed, and to follow up with her PMD within 1 week of discharge, and with Dr. Puente for next round of chemo in next 18-21 days (as per Heme-onc attending). Patient expressed understanding and agreement with these instructions. She was then discharged to rehab. Patient reviewed and discussed at length with attending, Dr. Puente. Discharge Exam - Additional Findings Additional findings: - Constitutional Appears: Non-toxic, No Acute Distress - Head Exam Head Exam: ATRAUMATIC, NORMAL INSPECTION, NORMOCEPHALIC - Eye Exam Eye Exam: EOMI, Normal appearance. absent: Conjunctival injection, Scleral icterus Pupil Exam: absent: Irregular, Unequal - ENT Exam ENT Exam: Mucous Membranes Moist - Neck Exam Neck exam: Positive for: Full Rom. Negative for: Lymphadenopathy, Thyromegaly - Respiratory Exam Respiratory Exam: Decreased Breath Sounds (mildly decreased breath sounds in all walker auscultated, but otherwise CTAB), Clear to Auscultation Bilateral, NORMAL BREATHING PATTERN. absent: Accessory Muscle Use, Chest Wall Tenderness, Rales, Rhonchi, Wheezes - Cardiovascular Exam Cardiovascular Exam: REGULAR RHYTHM, RRR, +S1, +S2. absent: Bradycardia, Tachycardia, Irregular Rhythm, JVD - GI/Abdominal Exam GI & Abdominal Exam: Normal Bowel Sounds, Soft. absent: Tenderness, Diminished Bowel Sounds, Firm, Guarding, Pulsatile Mass - Extremities Exam Extremities exam: Positive for: normal inspection, pedal pulses present. Negative for: calf tenderness, pedal edema, tenderness - Neurological Exam Awake and alert, following all commands appropriately motor strength 4/5 in all extremities, motor appears grossly intact and equal bilaterally - Psychiatric Exam Psychiatric exam: normal mood and affect - Skin Skin Exam: Dry, Intact, Pallor cool to palpation at bilateral LE from knees down, otherwise warm to palpation Discharge Plan - Follow Up Plan Condition: FAIR Disposition: REHAB FACILITY/REHAB UNIT Instructions: Vancomycin-Resistant Enterococci Referrals: [facility], [Non-Staff] - Follow up with primary
[2017-07-18] MEDS: Morphine 15 mg Immediate Release Tab PO PRN ×2 (12:20→17:23)
[2017-07-18 12:33] LABS: HEPATITIS B SURFACE AG Negative (NEGATIVE)
[2017-07-18 12:38] LABS: HEPATITIS A IGM NEGATIVE (NEGATIVE); HEPATITIS B CORE AB NEGATIVE (NEGATIVE)
[2017-07-18 12:50] LABS: HEPATITIS C ANTIBODY NEGATIVE (NEGATIVE)
--- NOTE | 2017-07-18 13:46 | CP.PCM.PN ---
Subjective - Date & Time of Evaluation Date of Evaluation: 07/18/17 Time of Evaluation: 10:30 - Subjective Subjective: Awake, participating with PT. Offers no complaints Objective - Vital Signs/Intake and Output Vital Signs (last 24 hours): Temp Pulse Resp BP Pulse Ox 98.2 F 90 20 138/80 95 07/18/17 07:50 07/18/17 09:18 07/18/17 07:50 07/18/17 09:18 07/18/17 07:50 Intake and Output: 07/18/17 07/18/17 06:59 18:59 Output Total 350 Balance -350 - Medications Medications: Current Medications Acetaminophen (Tylenol 325mg Tab) 650 mg PO Q6H PRN PRN Reason: general discomfort Alprazolam (Xanax) 0.25 mg PO BID [facility] Last Admin: 07/18/17 09:17 Dose: 0.25 mg Amlodipine Besylate (Norvasc) 5 mg PO DAILY [facility] Last Admin: 07/18/17 09:18 Dose: 5 mg Arformoterol Tartrate (Brovana) 15 mcg IH [id number] [facility] Last Admin: 07/18/17 07:26 Dose: 15 mcg Bisacodyl (Dulcolax) 5 mg PO DAILY PRN PRN Reason: Constipation Last Admin: 07/15/17 09:47 Dose: 5 mg Budesonide (Pulmicort Respules) 0.5 mg IH [id number] [facility] Last Admin: 07/18/17 07:26 Dose: 0.5 mg Enoxaparin Sodium (Lovenox) 30 mg SC DAILY [facility] PRN Reason: Protocol Last Admin: 07/18/17 09:19 Dose: 30 mg Ergocalciferol (Drisdol 50,000 Intl Units Cap) 1 cap PO Q7D [facility] Last Admin: 07/17/17 17:19 Dose: 1 cap Famotidine (Pepcid) 40 mg PO HS [facility] Last Admin: 07/17/17 21:39 Dose: 40 mg Insulin Human Regular (Humulin R Med) 0 units SC ACHS [facility] PRN Reason: Protocol Last Admin: 07/18/17 12:21 Dose: 3 units Ketoconazole (Nizoral) 0 gm TOP BID [facility] Last Admin: 07/18/17 09:21 Dose: 1 applic Lidocaine (Lidoderm) 2 ea TD [facility] Last Admin: 07/17/17 21:40 Dose: 2 ea Loratadine (Claritin) 10 mg PO DAILY [facility] Last Admin: 07/18/17 09:19 Dose: 10 mg Losartan Potassium (Cozaar) 50 mg PO DAILY [facility] Last Admin: 07/18/17 09:17 Dose: 50 mg Magnesium Hydroxide (Milk Of Magnesia) 15 ml PO DAILY PRN PRN Reason: Indigestion / Heartburn Montelukast Sodium (Singulair) 10 mg PO [facility] Last Admin: 07/17/17 21:39 Dose: 10 mg Morphine Sulfate (Morphine Extended Release Tab) 15 mg PO Q12 [facility] Last Admin: 07/18/17 09:18 Dose: 15 mg Morphine Sulfate (Morphine Immediate Release Tab) 15 mg PO Q6H PRN PRN Reason: Pain, moderate (4-7) Last Admin: 07/18/17 12:20 Dose: 15 mg Morphine Sulfate (Morphine) 2 mg IVP Q4H PRN PRN Reason: Pain, severe (8-10) Nicotine (Nicoderm Cq) 1 patch TD DAILY [facility] Last Admin: 07/18/17 09:20 Dose: 1 patch Nystatin (Nystatin Oral Susp) 5 ml PO QID [facility] Last Admin: 07/18/17 09:19 Dose: 5 ml Ondansetron HCl (Zofran Inj) 4 mg IVP Q4H PRN PRN Reason: Nausea/Vomiting Last Admin: 07/15/17 09:47 Dose: 4 mg Polyethylene Glycol (Miralax) 17 gm PO DAILY [facility] Last Admin: 07/18/17 09:20 Dose: 17 gm Potassium Phos/Sodium Phos (Neutra-Phos) 1 pkt PO BID [facility] Last Admin: 07/18/17 09:19 Dose: 1 pkt Sucralfate (Carafate Oral Susp) 1 gm PO 0600,1600 [facility] Last Admin: 07/18/17 05:57 Dose: 1 gm Zolpidem Tartrate (Ambien) 5 mg PO [facility] PRN Reason: Protocol Last Admin: 07/17/17 21:39 Dose: 5 mg - Labs Labs: 07/18/17 05:30 07/18/17 05:30 PT 13.2 SECONDS (9.4-12.5) H 07/17/17 06:00 INR 1.14 (0.93-1.08) H 07/17/17 06:00 APTT 24.8 Seconds (25.1-36.5) L 07/11/17 19:53 - Constitutional Appears: No Acute Distress, Chronically Ill - Head Exam Head Exam: NORMOCEPHALIC - Eye Exam Eye Exam: Normal appearance, PERRL - ENT Exam ENT Exam: Mucous Membranes Moist, Normal Oropharynx - Neck Exam Neck Exam: Normal Inspection - Respiratory Exam Respiratory Exam: Clear to Ausculation Bilateral, NORMAL BREATHING PATTERN - Cardiovascular Exam Cardiovascular Exam: REGULAR RHYTHM, +S1, +S2 - GI/Abdominal Exam GI & Abdominal Exam: Soft, Normal Bowel Sounds - Extremities Exam Extremities Exam: Full ROM, Normal Inspection - Back Exam Back Exam: NORMAL INSPECTION - Neurological Exam Neurological Exam: Alert, Oriented x3 - Skin Skin Exam: Dry, Pallor, Warm Assessment and Plan - Assessment and Plan (Free Text) Assessment: 72 year old female with history of Stage IV SCLC with mets to spine and liver who is admitted with sepsis secondary to sacral ulcer and cord compression which was ruled out. Patient intends to continue chemotherapy treatment. I attempted to continue conversation past conversation regarding advance care planning. Originally the patient stated she wanted to complete an Advanced Directive. I met with her a few times but she wasn't in the mood to complete paperwork. Today she states she does not want to do an Advance Directive. States she isn't ready to . I again explained that this was about planning ahead for her wishes in the event that her condition worsened. Patient prefers not to discuss this topic today. Time spent in goals of care and advance care planning discussion, 15 minutes Plan: Goals of care and advance care planning
--- NOTE | 2017-07-18 15:18 | CP.PCM.PN ---
Subjective - Date & Time of Evaluation Date of Evaluation: 07/18/17 Time of Evaluation: 10:10 - Subjective Subjective: Comfortable on a chair, no fevers, not in distress. Objective - Vital Signs/Intake and Output Vital Signs (last 24 hours): Temp Pulse Resp BP Pulse Ox 98.2 F 89 20 148/76 95 07/18/17 07:50 07/18/17 07:50 07/18/17 07:50 07/18/17 07:50 07/18/17 07:50 Intake and Output: 07/18/17 07/18/17 06:59 18:59 Output Total 350 Balance -350 - Medications Medications: Current Medications Acetaminophen (Tylenol 325mg Tab) 650 mg PO Q6H PRN PRN Reason: general discomfort Alprazolam (Xanax) 0.25 mg PO BID [facility] Last Admin: 07/17/17 17:19 Dose: 0.25 mg Amlodipine Besylate (Norvasc) 5 mg PO DAILY [facility] Last Admin: 07/17/17 10:05 Dose: 5 mg Arformoterol Tartrate (Brovana) 15 mcg IH [id number] [facility] Last Admin: 07/18/17 07:26 Dose: 15 mcg Bisacodyl (Dulcolax) 5 mg PO DAILY PRN PRN Reason: Constipation Last Admin: 07/15/17 09:47 Dose: 5 mg Budesonide (Pulmicort Respules) 0.5 mg IH [id number] [facility] Last Admin: 07/18/17 07:26 Dose: 0.5 mg Enoxaparin Sodium (Lovenox) 30 mg SC DAILY [facility] PRN Reason: Protocol Last Admin: 07/17/17 10:05 Dose: 30 mg Ergocalciferol (Drisdol 50,000 Intl Units Cap) 1 cap PO Q7D [facility] Last Admin: 07/17/17 17:19 Dose: 1 cap Famotidine (Pepcid) 40 mg PO HS [facility] Last Admin: 07/17/17 21:39 Dose: 40 mg Insulin Human Regular (Humulin R Med) 0 units SC ACHS [facility] PRN Reason: Protocol Last Admin: 07/17/17 21:40 Dose: 1 units Ketoconazole (Nizoral) 0 gm TOP BID [facility] Last Admin: 07/17/17 17:19 Dose: 1 applic Lidocaine (Lidoderm) 2 ea TD HS [facility] Last Admin: 07/17/17 21:40 Dose: 2 ea Loratadine (Claritin) 10 mg PO DAILY [facility] Last Admin: 07/17/17 10:03 Dose: 10 mg Losartan Potassium (Cozaar) 50 mg PO DAILY [facility] Last Admin: 07/17/17 10:05 Dose: 50 mg Magnesium Hydroxide (Milk Of Magnesia) 15 ml PO DAILY PRN PRN Reason: Indigestion / Heartburn Montelukast Sodium (Singulair) 10 mg PO HS [facility] Last Admin: 07/17/17 21:39 Dose: 10 mg Morphine Sulfate (Morphine Extended Release Tab) 15 mg PO Q12 [facility] Last Admin: 07/17/17 21:40 Dose: 15 mg Morphine Sulfate (Morphine) 2 mg IVP Q4H PRN PRN Reason: Pain, severe (8-10) Last Admin: 07/15/17 18:40 Dose: 2 mg Morphine Sulfate (Morphine Immediate Release Tab) 15 mg PO Q6H PRN PRN Reason: Pain, moderate (4-7) Last Admin: 07/17/17 14:11 Dose: 15 mg Nicotine (Nicoderm Cq) 1 patch TD DAILY [facility] Last Admin: 07/17/17 10:03 Dose: 1 patch Nystatin (Nystatin Oral Susp) 5 ml PO QID [facility] Last Admin: 07/17/17 21:39 Dose: 5 ml Ondansetron HCl (Zofran Inj) 4 mg IVP Q4H PRN PRN Reason: Nausea/Vomiting Last Admin: 07/15/17 09:47 Dose: 4 mg Polyethylene Glycol (Miralax) 17 gm PO DAILY [facility] Potassium Phos/Sodium Phos (Neutra-Phos) 1 pkt PO BID [facility] Last Admin: 07/17/17 17:19 Dose: 1 pkt Sucralfate (Carafate Oral Susp) 1 gm PO 0600,1600 [facility] Last Admin: 07/18/17 05:57 Dose: 1 gm Zolpidem Tartrate (Ambien) 5 mg PO HS [facility] PRN Reason: Protocol Last Admin: 07/17/17 21:39 Dose: 5 mg - Labs Labs: 07/18/17 05:30 07/18/17 05:30 PT 13.2 SECONDS (9.4-12.5) H 07/17/17 06:00 INR 1.14 (0.93-1.08) H 07/17/17 06:00 APTT 24.8 Seconds (25.1-36.5) L 07/11/17 19:53 - Constitutional Appears: Chronically Ill - Head Exam Head Exam: NORMAL INSPECTION - ENT Exam ENT Exam: Mucous Membranes Moist - Neck Exam Neck Exam: absent: Meningismus - Respiratory Exam Respiratory Exam: Decreased Breath Sounds - Cardiovascular Exam Cardiovascular Exam: +S1, +S2 - GI/Abdominal Exam GI & Abdominal Exam: Soft. absent: Tenderness Assessment and Plan - Assessment and Plan (Free Text) Plan: Assessment leukocytosis probably due to G-CSF infusion, now resolved stage 3 decubitus ulcer S/P sepsis due to HCAP S/P neutropenia history of Systemic viral illness with Influenza and acute bronchitis stage 4 lung cancer VRE in the urine, asymptomatic DM HTN depression lower back tumor obesity with BMI 30 Plan will monitor clinically off antibiotics since she is at risk for healthcare- associated infections; cultures have been negative continue local wound care for the sacral decubitus ulcer overall prognosis is poor
--- NOTE | 2017-07-18 17:47 | PN ---
DATE: 07/18/2017 SUBJECTIVE: The patient is seen sitting in bed. She is awake. She is alert. She is comfortable. She reports feeling very well. She denies any nausea or vomiting. She denies any shortness of breath. She denies any chest tightness. PHYSICAL EXAMINATION: GENERAL: Elderly lady sitting in bed. VITAL SIGNS: Blood pressure 123/96, heart rate 93, respiratory rate 18, temperature 98.8. HEENT: Normocephalic, atraumatic. NECK: Supple, no JVD. LUNGS: Bilateral equal air entry, bilateral equal expansion, no rales. CARDIAC: S1 and S2. Regular rate and rhythm, no murmur, no rub. ABDOMEN: Soft, nondistended, nontender, bowel sounds present. EXTREMITIES: No lower extremity edema. INTAKE AND OUTPUT: 725/550. LABORATORY DATA: WBC 10, hemoglobin 8.3, hematocrit 27 and platelets 119. Sodium 139, potassium 3.6, chloride 106, CO2 of 27, BUN 11, creatinine 0.4, glucose 198, calcium 8.6, phosphorus 2.8, magnesium 2.2, iron 104. Iron saturation 45, AST 59, ALT 55, albumin 3.0. CURRENT MEDICATIONS: Ambien, Brovana, sucralfate, Claritin, losartan 50, vitamin D once a week, Dulcolax, insulin, Lidoderm, Lovenox, milk of magnesium, MiraLax, morphine, Neutra-Phos, NicoDerm, Nizoral, amlodipine, nystatin, Pepcid, Singulair, Tylenol, Xanax, and Zofran. ASSESSMENT: 1. Hypokalemia, resolved. 2. Stage IV lung cancer. 3. Hypertension. 4. Severe anemia. 5. Dehydration, resolving. PLAN: 1. Continue potassium supplementation. 2. Continue current antihypertensives. 3. Push p.o. intake. 4. The patient to receive 2 units of blood today. Dana Hawkins MD
[2017-07-18 17:55] VITALS: O2SAT 97
[2017-07-18] MEDS: Morphine 4 mg/ml ISec IVP PRN (19:54)
[2017-07-18] MEDS: Lidocaine 5% Patch TD SCH (22:00)
--- NOTE | 2017-07-19 00:07 | PN ---
DATE: 07/18/2017 PULMONARY PROGRESS NOTE REFERRING PHYSICIAN: Dr. Puente. SUBJECTIVE: She is lying in the bed, head at 45 degrees. Her son is at the bedside. Night was remarkable. No headache, no rhinitis, not much cough. No nausea. Back pain is better. Had a bowel movement. No leg pain or leg swelling. OBJECTIVE: GENERAL: In no acute distress. VITAL SIGNS: Temperature is 98, heart rate 87, respiratory rate is 20, blood pressure 144/96, pulse of 97% on nasal cannula. HEENT: Moist mucous membrane. No ulcer or thrush noted. NECK: Supple. No JVD. LUNGS: Has fair airflow with rhonchi. HEART: S1 and S2. ABDOMEN: Soft, nontender. No organomegaly. EXTREMITIES: No edema. NEUROLOGIC: Awake and alert, follows simple command. MEDICATIONS: She is on Ambien 5 mg at bedtime, Brovana 50 mcg inhaled twice a day, Carafate 1 g twice a day, Claritin 10 mg daily, Cozaar 50 mg daily, vitamin D 50,000 units every 7 days, Dulcolax 5 mg daily p.r.n., insulin coverage, Lidoderm patch at affected area at bedtime, Lovenox 30 mg subcu daily, milk of magnesia p.r.n. basis, MiraLax 17 g daily, morphine 2 mg IV every 4 hours p.r.n., morphine extended release 50 mg every 12 hours, morphine immediate release 50 mg every 6 hours, Nicoderm patch daily, ketoconazole at affected area twice a day, Norvasc 5 mg daily, nystatin oral suspension 5 mL four times a day, Pepcid 40 mg at bedtime, Pulmicort inhaled twice a day, Singulair 10 mg daily, Tylenol p.r.n., Xanax 0.25 mg twice a day, Zofran p.r.n. basis. LABORATORY DATA: Shows hemoglobin 8.3, hematocrit 26.9, WBC 10.2, platelet is 119. Sodium 139, potassium 3.6, chloride 106, bicarbonate 27, BUN 11, creatinine 0.4, glucose 198, calcium 8.6, phosphorus 2.8, magnesium 2.2. Iron is 104, AST 59, ALT 55, alk phos is 381, albumin is 3.0. IMPRESSION AND PLAN: Metastatic lung cancer, which is a progressive disease involving liver, bones and spine, also has a retroperitoneal lymph node; chronic obstructive lung disease; anemia, being transfused; activity of daily living dysfunction. Pulmonary point of view, doing okay. Continue bronchodilator. Keep head at 45 degrees. Fall precaution. Gastric prophylaxis, deep venous thrombosis prophylaxis, will benefit from rehab. Thank you and we will follow with you. Robert Eastman MD
--- NOTE | 2017-07-19 02:46 | PN ---
DATE: 07/18/2017 SUBJECTIVE: This patient was seen and evaluated earlier today. Patient is now taking MiraLax only once a day. Has regular bowel movements. No complaints of abdominal pain. Feels much better now. PHYSICAL EXAMINATION: VITAL SIGNS: Temperature 97.6, blood pressure is 144/96, respirations 20, O2 saturation 97%. HEENT: Atraumatic, anicteric. NECK: Supple. HEART: S1 and S2 heard. LUNGS: Bilateral air entry present. ABDOMEN: Soft. No tenderness. EXTREMITIES: No cyanosis. No clubbing. LABORATORY DATA: Hemoglobin 8.3, hematocrit 26.9, WBC 10.2, platelets 119. Chemistry: BUN 11, creatinine 0.4. AST 59, ALT 55, alkaline phosphatase is 381. IMPRESSION AND PLAN: This is a 72-year-old patient with metastatic lung cancer, on chronic pain medication. Had a fecal impaction, improved with lactulose enema on maintenance MiraLax, titrating the dose for 1 to 2 times a day. She will continue that. Abnormal liver function test. Follow up of the liver function tests. Hepatitis profile, negative. Liver mets. Discussed with the patient and her family. Thank you very much for allowing us to participate in the care of the patient. Avinash Carlos MD
[2017-07-19] MEDS: Sucralfate 1 gm/10 ml Oral Susp UD PO SCH (05:55)
[2017-07-19] MEDS: Morphine 15 mg Immediate Release Tab PO PRN (05:56)
[2017-07-19 06:09] LABS: MEAN CELL VOLUME 92.7 fl (80.0-105.0); MEAN CORPUSCULAR HEMOGLOBIN 30.4 pg (25.0-35.0); MEAN CORPUSCULAR HGB CONC 32.8 g/dl (31.0-37.0); MEAN PLATELET VOLUME 10.5 fl (7.0-11.0); RBC 3.42 10^6/uL (3.5-6.1); RED CELL DISTRIBUTION WIDTH 19.5 % (11.5-14.5); WHITE BLOOD COUNT 10.7 10^3/ul (4.5-11.0)
[2017-07-19 06:14] LABS: HEMOGLOBIN 10.4 g/dL (12.0-16.0)
[2017-07-19 06:55] LABS: ALB/GLOB RATIO 1.2 (1.1-1.8); ALBUMIN 3.1 g/dL (3.0-4.8); ALT/SGPT 57 U/L (7-56); AST/SGOT 52 U/L (14-36); BLOOD UREA NITROGEN 10 mg/dL (7-21); CALCIUM 8.6 mg/dL (8.4-10.5); GFR AFRICAN-AMERICAN > 60; GFR NON-AFRICAN AMERICAN > 60
[2017-07-19] MEDS: Budesonide 0.5 mg/2 ml Inhal Susp UD IH SCH (07:11)
[2017-07-19] MEDS: Arformoterol 15 mcg/2 ml Inh Sol IH SCH (07:11)
[2017-07-19 07:58] VITALS: BP 149/78; PULSE 82; RESP 20; TEMP 97.8
[2017-07-19] MEDS: Morphine 4 mg/ml ISec IVP PRN ×2 (08:43→14:14)
[2017-07-19] MEDS: Insulin Reg-MEDIUM-Coverage SC SCH (09:17)
[2017-07-19] MEDS: Enoxaparin 30 mg Syringe SC SCH (09:18)
[2017-07-19] MEDS: Morphine 15 mg SR Tab PO SCH (09:18)
[2017-07-19] MEDS: POLYETHYLENE GLYCOL 3350 17 GM/Dose PACKET PO SCH (09:18)
[2017-07-19] MEDS: Potassium & Sodium Phosphate PO SCH (09:19)
[2017-07-19] MEDS ORDERED: Potassium Chloride 20 mEq ER Tab PO ONE (09:20)
[2017-07-19] MEDS: Nystatin 100,000 Units/ml Oral Susp 5 ml UD PO SCH (09:20)
--- NOTE | 2017-07-19 10:21 | PN ---
DATE: 07/17/2017 SUBJECTIVE: This patient was seen and evaluated earlier today. The patient has been moving her bowels more often and she has become once an incontinent. She was afraid of taking MiraLax again. PHYSICAL EXAMINATION: VITAL SIGNS: Temperature is 97.8, pulse 84, blood pressure 130/76. HEENT: Atraumatic, anicteric. NECK: Supple. HEART: S1 and S2 heard. LUNGS: Bilateral air entry present. ABDOMEN: Soft. There is no tenderness. EXTREMITIES: No cyanosis. LABORATORY DATA: Hemoglobin 8.3, hematocrit 26.4, WBC is 12.6, BUN 8, creatinine 0.3. IMPRESSION: This is a 72-year-old patient with metastatic lung cancer, stage III decubitus ulcer, neutropenia, had fecal impaction. The patient was on narcotic for pain control. The patient had a good movement after the lactulose enema. The patient presently also on MiraLax twice daily. RECOMMENDATION: 1. Correct electrolytes. 2. Titrate the dose of the MiraLax to keep the bowel movements one to two per day. Avinash Carlos MD
[2017-07-19] MEDS ORDERED: Potassium Chloride 20 mEq ER Tab PO SCH (10:30)
--- NOTE | 2017-07-19 10:50 | CP.PCM.PN ---
Subjective - Date & Time of Evaluation Date of Evaluation: 07/19/17 Time of Evaluation: 10:05 - Subjective Subjective: Seen and examined at the bedside earlier this morning. Patient was recommended MiraLAX twice a day, patient reports she had loose pasty stool last night and had a BM unknown to her. No reports of bleeding, no nausea or abdominal pain. Patient reports an excellent appetite now. No other complaints. Patient denies any overt GI bleed. Objective - Vital Signs/Intake and Output Vital Signs (last 24 hours): Temp Pulse Resp BP Pulse Ox 97.8 F 82 20 149/78 97 07/19/17 07:56 07/19/17 09:19 07/19/17 07:56 07/19/17 09:19 07/19/17 07:56 Intake and Output: 07/19/17 07/19/17 06:59 18:59 Intake Total 1465 Output Total 950 Balance 515 - Medications Medications: Current Medications Acetaminophen (Tylenol 325mg Tab) 650 mg PO Q6H PRN PRN Reason: general discomfort Alprazolam (Xanax) 0.25 mg PO BID [facility] Last Admin: 07/19/17 09:20 Dose: 0.25 mg Amlodipine Besylate (Norvasc) 5 mg PO DAILY [facility] Last Admin: 07/19/17 09:19 Dose: 5 mg Arformoterol Tartrate (Brovana) 15 mcg IH [id number] [facility] Last Admin: 07/19/17 07:11 Dose: 15 mcg Bisacodyl (Dulcolax) 5 mg PO DAILY PRN PRN Reason: Constipation Last Admin: 07/15/17 09:47 Dose: 5 mg Budesonide (Pulmicort Respules) 0.5 mg IH [id number] [facility] Last Admin: 07/19/17 07:11 Dose: 0.5 mg Enoxaparin Sodium (Lovenox) 30 mg SC DAILY [facility] PRN Reason: Protocol Last Admin: 07/19/17 09:18 Dose: 30 mg Ergocalciferol (Drisdol 50,000 Intl Units Cap) 1 cap PO Q7D [facility] Last Admin: 07/17/17 17:19 Dose: 1 cap Famotidine (Pepcid) 40 mg PO HS [facility] Last Admin: 07/18/17 22:05 Dose: 40 mg Potassium Chloride (Potassium Chloride 20 Meq/100 Ml) 20 meq in 100 mls @ 50 mls/hr IVPB Q2H [facility] Stop: 07/19/17 13:44 Last Admin: 07/19/17 09:59 Dose: 50 mls/hr Insulin Human Regular (Humulin R Med) 0 units SC ACHS [facility] PRN Reason: Protocol Last Admin: 07/19/17 09:17 Dose: 1 units Ketoconazole (Nizoral) 0 gm TOP BID [facility] Last Admin: 07/18/17 17:24 Dose: 1 applic Lidocaine (Lidoderm) 2 ea TD HS [facility] Last Admin: 07/18/17 22:00 Dose: 2 ea Loratadine (Claritin) 10 mg PO DAILY [facility] Last Admin: 07/19/17 09:16 Dose: 10 mg Losartan Potassium (Cozaar) 50 mg PO DAILY [facility] Last Admin: 07/19/17 09:17 Dose: 50 mg Magnesium Hydroxide (Milk Of Magnesia) 15 ml PO DAILY PRN PRN Reason: Indigestion / Heartburn Montelukast Sodium (Singulair) 10 mg PO HS [facility] Last Admin: 07/18/17 22:05 Dose: 10 mg Morphine Sulfate (Morphine Extended Release Tab) 15 mg PO Q12 [facility] Last Admin: 07/19/17 09:18 Dose: 15 mg Morphine Sulfate (Morphine Immediate Release Tab) 15 mg PO Q6H PRN PRN Reason: Pain, moderate (4-7) Last Admin: 07/19/17 05:56 Dose: 15 mg Morphine Sulfate (Morphine) 2 mg IVP Q4H PRN PRN Reason: Pain, severe (8-10) Last Admin: 07/19/17 08:43 Dose: 2 mg Nicotine (Nicoderm Cq) 1 patch TD DAILY [facility] Last Admin: 07/19/17 09:19 Dose: 1 patch Nystatin (Nystatin Oral Susp) 5 ml PO QID [facility] Last Admin: 07/19/17 09:20 Dose: 5 ml Ondansetron HCl (Zofran Inj) 4 mg IVP Q4H PRN PRN Reason: Nausea/Vomiting Last Admin: 07/15/17 09:47 Dose: 4 mg Polyethylene Glycol (Miralax) 17 gm PO DAILY [facility] Last Admin: 07/19/17 09:18 Dose: 17 gm Potassium Chloride (K-Dur 20 Meq Er Tab) 20 meq PO BRK [facility] Last Admin: 07/19/17 09:59 Dose: 20 meq Potassium Phos/Sodium Phos (Neutra-Phos) 1 pkt PO BID [facility] Last Admin: 07/19/17 09:19 Dose: 1 pkt Sucralfate (Carafate Oral Susp) 1 gm PO 0600,1600 [facility] Last Admin: 07/19/17 05:55 Dose: 1 gm Zolpidem Tartrate (Ambien) 5 mg PO HS [facility] PRN Reason: Protocol Last Admin: 07/18/17 22:05 Dose: Not Given - Labs Labs: 07/19/17 05:45 07/19/17 05:45 PT 13.2 SECONDS (9.4-12.5) H 07/17/17 06:00 INR 1.14 (0.93-1.08) H 07/17/17 06:00 APTT 24.8 Seconds (25.1-36.5) L 07/11/17 19:53 - Constitutional Appears: No Acute Distress - Head Exam Head Exam: NORMOCEPHALIC - Eye Exam Eye Exam: Normal appearance. absent: Scleral icterus - ENT Exam ENT Exam: Mucous Membranes Moist - Neck Exam Neck Exam: Normal Inspection - Respiratory Exam Respiratory Exam: Decreased Breath Sounds, NORMAL BREATHING PATTERN. absent: Respiratory Distress - Cardiovascular Exam Cardiovascular Exam: +S1, +S2 - GI/Abdominal Exam GI & Abdominal Exam: Soft, Normal Bowel Sounds. absent: Guarding, Tenderness, Rebound - Extremities Exam Extremities Exam: absent: Calf Tenderness, Pedal Edema - Neurological Exam Neurological Exam: Alert, Awake, Oriented x3 - Skin Skin Exam: Dry, Warm Assessment and Plan - Assessment and Plan (Free Text) Assessment: Assessment: Metastatic lung cancer with liver metastases Chronic pain syndrome Status post fecal impaction Abnormal LFTs, hepatitis negative, patient with liver metastasis Plan: Diet as tolerated, patient reports improved appetite Continue bowel regimen on Colace and MiraLAX, discussed with patient she needs to continue on a bowel regimen Pain management on morphine Continue GI prophylaxis on Pepcid On Carafate Plan is for patient to be transferred to rehabilitation, spoke to nurse at bedside. Seen and discussed with Dr. Serrano.
--- NOTE | 2017-07-19 14:15 | PN ---
DATE: SUBJECTIVE: The patient is currently seen on 3R. She is in the process of being discharged from [facility]. She will be transferred to the TCU at [facility]. The patient's potassium level was low today and she has received potassium supplements. MEDICATIONS: Medication list reviewed. The patient is on Ambien, Brovana, Carafate, Claritin, Cozaar, vitamin D, Dulcolax, insulin, Lidoderm, K tabs, Lovenox, milk of magnesia, MiraLax, p.r.n. morphine, Neutra-Phos, NicoDerm CQ, Nizoral, Norvasc, nystatin, Pepcid, IV K riders, Pulmicort, Singulair, Tylenol, Xanax and Zofran p.r.n. OBJECTIVE INTAKE/OUTPUT: Intake is 2780, output is 1350. VITAL SIGNS: Blood pressure 149/78, temperature 97.8, respiratory rate 20 with a pulse of 82. HEENT: Normocephalic, atraumatic. Conjunctivae remain pale. Sclerae nonicteric. NECK: Supple. No neck vein distention. CHEST: Clear to auscultation and percussion with scattered rhonchi. She has a port in her right chest wall. CARDIOVASCULAR: Regular rate and rhythm without murmurs, rubs or gallops. ABDOMEN: Soft. Bowel sounds normal. No rebound, no guarding or masses. BACK: Positive sacral decubitus covered. EXTREMITIES: No cyanosis, clubbing or edema. LABORATORY DATA AND IMAGING STUDIES: CBC: White blood cell count today 10.7, hemoglobin 10.4 with platelet count of 93,000. Chemistries: Sodium of 141, potassium level is down from 3.6 to 2.8 today. CO2 28, BUN 10 with a creatinine of 0.4. Glucose 208. Calcium is 8.6. Last magnesium level was 2.2. Last phosphorus level was 2.8. Mild elevation of her liver enzymes. Albumin level is low at 0.1. Microbiology essentially all negative. Blood cultures are negative. Urine was positive for yeast. ASSESSMENT 1. 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 The patient had met with Palliative Care. It is decided that she does not want to discuss end-of-life issues at this point in time. 2. 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 Presently, sodium levels are normal. 3. Hypokalemia. The patient has received an aggressive potassium supplements today both IV and orally. 4. Hypophosphatemia. This has been corrected with K-Phos riders and Neutra-Phos. 5. History of [id number] diabetes mellitus. The patient is on sliding scale insulin. Glucose control has been acceptable. 6. History of anemia. 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 The patient remains mildly anemic. White blood cell count today is normal at 10.7. Platelet count is acceptable on 93,000. 7. History of hypertension. Previous admissions, the patient had had mild elevations of blood pressure and had received medications for blood pressure control during the hospitalizations. Presently, the patient remains on low-dose Norvasc therapy with excellent blood pressure control. PLAN 1. Agree with potassium supplements. 2. When the patient gets to the TCU at [facility], she should have her labs checked to make certain her potassium level remains in the normal range. 3. Continue local wound care for sacral decubitus. 4. I feel that the patient should have a discussion with Palliative Care to decide end-of-life issues as her stage IV small cell carcinoma of the lung is progressing. Delta Riley MD
--- NOTE | 2017-07-19 17:22 | PN ---
DATE: 07/19/2017 SUBJECTIVE: The patient is in bed, seen earlier this morning in room 360, bed 2. No fevers. No chills. OBJECTIVE: VITAL SIGNS: Temperature is 98, blood pressure is 140/70, respiratory rate of 20, heart rate of 98. HEENT: Unremarkable. NECK: Supple. LUNGS: Have decreased breath sounds. HEART: Normal S1, S2. ABDOMEN: Soft. LABORATORY DATA: Reveals the patient's white count is 10,000, hemoglobin of 10, platelets of 93. Chemistries reveals a BUN of 10, creatinine 0.4. Procalcitonin is noted to be 1.99 and the laboratory examinations are noted. Microbiology is reviewed. ASSESSMENT AND PLAN: A 72-year-old female, seen earlier today with leukocytosis probably secondary to G-CSF infusion, which is now resolved and off of antibiotics and patient status post sepsis, healthcare-associated pneumonia, neutropenia; history of viral illness; influenza; bronchitis; diabetes; hypertension, depression; lower back tumor and obesity. We will follow with you. The patient is at risk for developing nosocomial infections. Jorge Luis Hernandez MD
--- NOTE | 2017-07-20 16:00 | PQF SEPSIS ---
07/20/17 Dr. Puente, Please clarify whether patient was admitted with sepsis on this hospital stay. Some notes state "admitted with sepsis;" others state history of sepsis and status post sepsis. If patient had sepsis, was this present on admission and the reason for admission after study? Thank you. Clarification of your documentation is requested to better reflect the severity of illness and intensity of treatment of your patient. Indicators present [] Temp < 96.8 or > 100.4 [] WBC count > 12,000/mm3 or <000/mm3 or 10% immature neutrophils [] Heart Rate > 90 [] Respiratory Rate > 20 [] Fever or hypothermia [] Chills [] Positive blood cultures [] Hypotension [] Metabolic acidosis (Elevated lactate level, anion gap or reduced blood pH) [] Acute confusion /Altered Mental Status [] Shock [] Other: [] Location in the medical record that reflects the above clinical findings: [] Treatment Provided: [] PHYSICIAN'S RESPONSE Based on your medical judgment of the clinical indicators outlined above, are you treating this patient for a known or suspected: [] Sepsis / Septicemia Please specify organism if known [] [] SIRS (Systemic Inflammatory Response Syndrome) [] Severe Sepsis (Sepsis with Associated Organ Dysfunction) [] Fever of Unknown Origin [] Other, please indicate: [] [] If Unable to Determine, please check the box, sign and date. Present On Admission (POA) Indicator: [] Present at the time of admission [] Not present at the time of admission [] Clinically Undetermined In responding to this query, please exercise your independent professional judgment. The fact that a question is asked does not imply that any particular answer is desired or expected. Thank you for your clarification on this documentation. 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
== END 2017-07-19 14:54 | DRG 542 ==
LOC: ED 18:05 → ERH 18:41 → 3RNO 22:52
PROVIDERS: ADMIT Family Medicine; ATTEND Family Medicine
DX: C79.51 Secondary malignant neoplasm of bone (principal); D61.810 Antineoplastic chemotherapy induced pancytopenia; L89.153 Pressure ulcer of sacral region, stage 3; C78.7 Secondary malignant neoplasm of liver and intrahepatic bile duct; C79.89 Secondary malignant neoplasm of other specified sites; C34.90 Malignant neoplasm of unspecified part of unspecified bronchus or lung; G95.29 Other cord compression; J98.11 Atelectasis; L03.90 Cellulitis, unspecified; E83.39 Other disorders of phosphorus metabolism; E10.42 Type 1 diabetes mellitus with diabetic polyneuropathy; B37.9 Candidiasis, unspecified; D63.8 Anemia in other chronic diseases classified elsewhere; E66.9 Obesity, unspecified; Z68.30 Body mass index [BMI] 30.0-30.9, adult; E86.0 Dehydration; E87.6 Hypokalemia; G89.4 Chronic pain syndrome; I11.0 Hypertensive heart disease with heart failure; I50.9 Heart failure, unspecified; J44.9 Chronic obstructive pulmonary disease, unspecified; K56.41 Fecal impaction; K59.03 Drug induced constipation; R62.7 Adult failure to thrive; T40.2X5A Adverse effect of other opioids, initial encounter; T45.1X5A Adverse effect of antineoplastic and immunosuppressive drugs, initial encounter; Z87.19 Personal history of other diseases of the digestive system; Z87.891 Personal history of nicotine dependence; Z92.3 Personal history of irradiation

== ENCOUNTER 2017-08-03 16:38 | Inpatient (IN) | payer MEDICARE, OTHER ==
[2017-08-03] MEDS ORDERED: Morphine 4 mg/ml ISec IVP STA (17:17)
--- NOTE | 2017-08-03 17:24 | ED PDOC ---
Addendum entered and electronically signed by Karolina Christie DO 08/03/17 21:17 : Addendum Addendum: 08/03/17 21:12 Labs earlier today show mild anemia, unchanged from baseline, no leukocytosis, normal platelets. CMP shows moderate hyperglycemia, mild transaminemia with an elevated alkaline phosphatase, similar to her baseline. Otherwise unremarkable. 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 Patient reports that she got two doses of morphine, which normally would monalisa the pain, but it remained an 8/10 in severity. Pain has been slightly worse recently. She also reports a wet cough for the past month. She denies hemoptysis, fever, chills, nausea, vomiting, abdominal pain. Pain does not worsen with inhalation. Pain is better when she leans forward. (Karolina Christie) Past Medical History - Provider Review Nursing Documentation Reviewed: Yes - Travel History Have you recently traveled outside [place] w/in the past 3 mons?: Yes - Infectious Disease Hx of Infectious Diseases: None - Tetanus Immunization Tetanus Immunization: Unknown - Cardiac Hx Cardiac Disorders: Yes Hx Circulatory Problems: Yes - Pulmonary Hx Respiratory Disorders: Yes Hx Lung Cancer: Yes Hx Pneumonia: Yes - Neurological Hx Neurological Disorder: No - HEENT Hx HEENT Disorder: No - Renal Hx Renal Disorder: No - Endocrine/Metabolic Hx Endocrine Disorders: Yes Hx Diabetes Mellitus Type 1: Yes - Hematological/Oncological Hx Blood Disorders: Yes Hx AIDS: No Hx Anemia: Yes Hx Metastasis: Yes (TO LIVER AND SPINE) - Integumentary Hx Dermatological Disorder: Yes Other/Comment: SACRAL PRESSURE ULCER - Musculoskeletal/Rheumatological Hx Musculoskeletal Disorders: Yes Hx Back Pain: Yes - Gastrointestinal Hx Gastrointestinal Disorders: Yes Hx Constipation: Yes Hx Nausea: Yes - Genitourinary/Gynecological Hx Genitourinary Disorders: Yes Hx Reproductive Disorders: No - Psychiatric Hx Psychophysiologic Disorder: Yes Hx Anxiety: Yes Hx Depression: Yes Hx Substance Use: No - Surgical History Hx Appendectomy: Yes Hx Joint Replacement: Yes (RIGHT TKR 10/2012) - Anesthesia Hx Anesthesia Reactions: No Hx Malignant Hyperthermia: No <AmineKirkram - Last Filed: 08/03/17 21:12> Family/Social History - Physician Review Nursing Documentation Reviewed: Yes Family/Social History: Neoplasm/Cancer Smoking Status: Former Smoker Hx Alcohol Use: No Hx Substance Use: No <AmineKarolina - Last Filed: 08/03/17 21:12> Allergies/Home Meds <AmineKirkram - Last Filed: 08/03/17 21:12> <Steff Mckeon - Last Filed: 08/03/17 21:54> Allergies/Adverse Reactions: Allergies Sulfa (Sulfonamide Antibiotics) Allergy (Verified 08/03/17 16:46) ANAPHYLAXIS Home Medications: Home Meds Medication Instructions Recorded Confirmed Bisacodyl [Dulcolax] 5 mg PO DAILY PRN 07/11/17 08/03/17 Alprazolam [Xanax] 0.5 mg PO BID 07/19/17 08/03/17 Cinnamon Bark [Cinnamon] 1,000 mg PO BID 07/19/17 08/03/17 Desvenlafaxine [Desvenlafaxine ER] 50 mg PO TID 08/03/17 08/03/17 Famciclovir [Famvir] 500 mg PO TID 08/03/17 08/03/17 Fenofibric Acid (Choline) 1 cap PO DAILY 08/03/17 08/03/17 [Fenofibric Acid] Review of Systems - Review of Systems Constitutional: Normal Eyes: Normal ENT: Normal Respiratory: Cough. absent: SOB, Sputum, Wheezing Cardiovascular: Normal, Other (Right inframammary rib pain) Gastrointestinal: Normal Genitourinary Female: Normal Musculoskeletal: Normal Skin: Normal Neurological: Normal Endocrine: Normal Hemo/Lymphatic: Normal Psychiatric: Normal <Amine,Vitokarram - Last Filed: 08/03/17 21:12> Physical Exam Vital Signs Reviewed: Yes Temperature: Afebrile Blood Pressure: Normal Pulse: Regular Respiratory Rate: Normal Appearance: Positive for: Well-Appearing, Non-Toxic, Comfortable Pain Distress: Mild Mental Status: Positive for: Alert and Oriented X 3 - Systems Exam Head: Present: Atraumatic, Normocephalic Pupils: Present: PERRL Extroacular Muscles: Present: EOMI Conjunctiva: Present: Normal Mouth: Present: Moist Mucous Membranes Neck: Present: Normal Range of Motion Respiratory/Chest: Present: Good Air Exchange, Rhonchi (Diffuse, apparently from upper airway), Tender to Palpation (Right inframammary rib pain). No: Respiratory Distress, Accessory Muscle Use Cardiovascular: Present: Regular Rate and Rhythm, Normal S1, S2. No: Murmurs Abdomen: Present: Normal Bowel Sounds. No: Tenderness, Distention Upper Extremity: Present: Normal Inspection. No: Cyanosis, Edema Lower Extremity: Present: Normal Inspection. No: Edema, CALF TENDERNESS Neurological: Present: GCS=15, CN II-XII Intact, Speech Normal Skin: Present: Warm, Dry, Normal Color Psychiatric: Present: Alert, Oriented x 3, Normal Insight, Normal Concentration <Kirk Christieram - Last Filed: 08/03/17 21:12> Vital Signs Temp Pulse Resp BP Pulse Ox 08/03/17 20:21 78 18 144/79 99 08/03/17 16:54 97.1 F L 88 20 147/96 H 98 Medical Decision Making Reassessment Condition: Re-examined, Improved <Shahnaz,Kirkram - Last Filed: 08/03/17 21:12> - EKG Interpretation Interpreted by ED Physician: Yes Type: 12 lead EKG <Steff Mckeon - Last Filed: 08/03/17 21:54> ED Course and Treatment: 08/03/17 17:50 Impression: Failure to thrive and right sided rib pain/chest pain, associated with cough Differential Diagnosis included but are not limited to: Pneumonia, atalectasis , pain secondary to malignancy Plan: -- Chest X-ray -- Morphine for analgesia -- Labs done earlier today at oncology center -- Reassess and disposition Prior Visits: Notes and results from previous visits were reviewed. Progress Notes: Chest X-ray report shows linear atalectasis, possible pneumonia. Ordered blood cultures. Discussed patient with PMD Dr. Puente. Patient has history of lung CA with metastasis to bone. Sent to emergency department with failure to thrive and possible dehydration, as well as chronic pain secondary to stage IV lung CA, uncontrolled with outpatient treatment with IV analgesics. Will admit patient to med/surg for possible pneumonia, failure to thrive, possible dehydration, and uncontrolled pain; spoke to Dr. Puente who accepts patient to his service (Karolina Christie) 08/03/17 21:50 Patient seen and evaluated with biomedical engineering internship. I reviewed history with Dr. Puente, who evaluated patient at oncology clinic earlier this AM. Patient with failure to thrive with persistent pain despite outpatient treatment. Labs drawn previously today were reviewed. CXR with new findings on right lobe, cannot exclude pneumonia although patient denies any fever, there is no acute cough or shortness of breath, by history described as chronic. As no acute symptoms described will monitor symptoms and consult pulmunology. Pain improved after Morphine, but persistent. Abnormal cxr reviewed with admitting physician, at this time will admit for failure to thrive, intractable pain, dehydration, orders as per admitting physician. Will consult pulmunology given cxr findings and monitoring of respiratory symptoms. (Steff Mckeon) - RAD Interpretation Radiology Orders: 08/03/17 17:15 CXR [CHEST PORTABLE] [RAD] Stat - EKG Interpretation EKG Interpretation (Text): EKG at 16:49 normal sinus rhythm rate of 85 with left axis deviation, left ventricular hypertrophy with qrs widening (Steff Mckeon) - Medication Orders Current Medication Orders: Acetaminophen (Tylenol 325mg Tab) 650 mg PO Q4 PRN PRN Reason: Fever >100.4 F Alprazolam (Xanax) 0.25 mg PO BID [facility] PRN Reason: Protocol Stop: 08/11/17 10:01 Amlodipine Besylate (Norvasc) 5 mg PO DAILY [facility] Arformoterol Tartrate (Brovana) 15 mcg IH [id number] [facility] Bisacodyl (Dulcolax) 5 mg PO DAILY [facility] Budesonide (Pulmicort Respules) 0.25 mg IH [id number] [facility] Enoxaparin Sodium (Lovenox) 30 mg SC DAILY [facility] Famotidine (Pepcid) 40 mg PO HS [facility] Potassium Chloride 20 meq/ (Sodium Chloride) 1,010 mls @ 80 mls/hr IV .[id number] [facility] Insulin Human Regular (Humulin R Low) 0 units SC ACHS [facility] PRN Reason: Protocol Loratadine (Claritin) 10 mg PO DAILY PRN PRN Reason: Nasal congestion Losartan Potassium (Cozaar) 50 mg PO DAILY [facility] Montelukast Sodium (Singulair) 10 mg PO DAILY [facility] Morphine Sulfate (Morphine Extended Release Tab) 15 mg PO Q12 [facility] Morphine Sulfate (Morphine Immediate Release Tab) 15 mg PO Q6H PRN PRN Reason: Pain, moderate (4-7) Morphine Sulfate (Morphine) 2 mg IVP Q4H PRN PRN Reason: Pain, severe (8-10) Ondansetron HCl (Zofran Odt) 4 mg PO Q8H PRN PRN Reason: Nausea/Vomiting Polyethylene Glycol (Miralax) 17 gm PO DAILY [facility] Sucralfate (Carafate Oral Susp) 1 gm PO BID [facility] Zolpidem Tartrate (Ambien) 5 mg PO HS PRN; Protocol PRN Reason: Insomnia Discontinued Medications Morphine Sulfate (Morphine) 2 mg IVP STAT STA Stop: 08/03/17 17:18 Last Admin: 08/03/17 17:49 Dose: 2 mg MAR Pain Assessment Document 08/03/17 17:49 MS (Rec: 08/03/17 17:49 [id number] Pain Reassessment Is this a pain reassessment? No Sleep Is patient sleeping during reassessment? No Presence of Pain Presence of Pain Yes Pain Scale Used Pain Scale Used Numeric Location Left, Right or Bilateral Right Pain Location Body Site Abdomen Description Intensity of Pain at present 8 IVP Administration Document 08/03/17 17:49 MS (Rec: 08/03/17 17:49 [id number]) Charges for Administration # of IVP Administrations 1 Disposition/Present on Arrival - Present on Arrival Any Indicators Present on Arrival: Yes History of DVT/PE: No History of Uncontrolled Diabetes: Yes Urinary Catheter: No History of Decub. Ulcer: No History Surgical Site Infection Following: None - Disposition Have Diagnosis and Disposition been Completed?: Yes Disposition Time: 19:29 Patient Plan: Admission <Karolina Christie - Last Filed: 08/03/17 21:12> <Steff Mckeon - Last Filed: 08/03/17 21:54> - Disposition Diagnosis: FTT (failure to thrive) in adult, Uncontrolled pain, Dehydration Disposition: HOSPITALIZED Condition: GUARDED
--- NOTE | 2017-08-03 18:14 | RAD ---
HISTORY: R rib pain; h/o Lung CA COMPARISON: 07/11/2017. FINDINGS: The right MediPort terminates in the right atrium. LUNGS: There is airspace disease in the right lower lobe. There is linear atelectasis/ scarring in the right lower lobe and left lower lobe. PLEURA: No significant pleural effusion identified, no pneumothorax apparent. CARDIOVASCULAR: Normal. OSSEOUS STRUCTURES: No significant abnormalities. VISUALIZED UPPER ABDOMEN: Normal. OTHER FINDINGS: None. IMPRESSION: Right lower lobe airspace disease may represent atelectasis however superimposed pneumonia cannot be excluded.
[2017-08-03] MEDS ORDERED: Morphine 2 mg/ml ISec IVP PRN (21:01)
[2017-08-03] MEDS ORDERED: Morphine 4 mg/ml ISec IVP PRN (21:04)
[2017-08-03] MEDS: Insulin Reg-LOW-Coverage SC SCH (21:54)
[2017-08-03] MEDS: Morphine 15 mg SR Tab PO SCH (23:00)
[2017-08-03 23:37] VITALS: BMI 27.1
--- NOTE | 2017-08-04 05:56 | HP ---
She should be going to room 370 on the medical floor. Seen in the emergency room. CHIEF COMPLAINT: Right chest pain. HISTORY OF PRESENT ILLNESS: The patient is a 72-year-old female with known stage IV small cell cancer of the lung with spread and metastasis to her spine and liver. She is on significant doses of narcotic analgesics for her pain with relatively good relief, recently transferred from reconditioning at a subacute rehab in [place], but a discharge summary from Dr. Carvajal, dated from 07/30/2017 from [facility]. The patient was having chemotherapy treatment in the outpatient clinic at [facility] earlier today with shortness of breath and chest discomfort noted with failure to thrive also a consideration. She also has significant difficulty in ambulation. At present, she is resting comfortably in the emergency room after IV morphine was given with good effect. She is now admitted for evaluation and treatment with an exacerbation of COPD suspected, which will be addressed by Dr. Eastman, Pulmonology. She also needs hydration status post her chemo with need for admission for failure to thrive, uncontrolled pain and dehydration. ALLERGIES: ARE TO SULFA. PRESENT MEDICAL REGIMEN: Includes morphine sulfate immediate release, morphine sulfate extended release, Ambien, Brovana, Carafate, Claritin, Cozaar, Dulcolax, Lovenox, MiraLax, Nicoderm patch, Nizoral, Norvasc, Pepcid, Pulmicort, Singulair, Xanax and Zofran. FAMILY HISTORY AND SOCIAL HISTORY: Positive smoker, no history of alcohol use, otherwise noncontributory. She has one son who is a chess-master with her [id number], the Director of Family Medicine in [place], [place], with the second daughter the power of ip attorney. PAST MEDICAL HISTORY: Significant for SIADH, metastatic small cell carcinoma of the lung stage IV with metastases to the bone, liver and lungs; diabetes mellitus, hypertension, obesity, gait disturbance, constipation. REVIEW OF SYSTEMS: A 12-point review of system was done, which was negative to questioning except as per items mentioned in history of present illness. PHYSICAL EXAMINATION: VITAL SIGNS: Temperature 97.1, pulse 78, respirations 18, blood pressure 144/79, pulse ox 99%. HEENT: Unremarkable. NECK: Supple. HEART: Regular rate. LUNGS: Rare rhonchi. ABDOMEN: Obese, soft, nontender. EXTREMITIES: +1 edema. NEUROLOGIC: Awake and alert. SKIN: Warm and dry. LABORATORY DATA: Were done, white blood cell count of 4.6, hemoglobin of 10.3, hematocrit of 32.3, platelet count of 194,000. The chem metabolic panel showing a nonfasting glucose of 254, AST 100, ALT of 82, alk phos of 360, with an otherwise normal chem metabolic panel. ASSESSMENT: For this patient is that of dehydration, failure to thrive, intractable pain of cancer, extensive stage IV small cell carcinoma of the lung with metastases to the liver and bone including cervical, thoracic, and lumbar spine, status post radiation, and continue with systemic chemotherapy with carboplatin and etoposide, history of pancytopenia and sepsis, deconditioning, gait disturbance, obesity, diabetes mellitus, anemia of chronic disease, smoker, electrolyte imbalance, syndrome of inappropriate antidiuretic hormone secretion and constipation. PLAN: For this patient after conversation with Dr. Puente is to continue present medical regimen. We will ask for consult with Dr. Eastman, Pulmonology. We will continue present medical regimen along with DuoNeb, narcotic analgesics. We will give IV fluids at 80 mL an hour. We will continue with Granix 480 mcg subcu daily for 7 days to begin 24 hours after discontinuation of her chemotherapy which will be approximately 6 p.m. on , 08/04/2017. We will monitor clinically and with labs. This is a complex patient with a comprehensive medically necessary and appropriate visit carried out in excess of 40 minutes [id number] time with this patient, with her questions answered to her satisfaction with the patient to be followed clinically on the floor. Yosef Reis MD
[2017-08-04 06:28] LABS: EOS % 0.3 % (1.5-5.0); GRAN # 2.57 (1.4-6.5); GRAN % 80.6 % (50.0-68.0); HEMOGLOBIN 9.1 g/dL (12.0-16.0); LYMPH # 0.6 (1.2-3.4); LYMPH % 17.2 % (22.0-35.0); MEAN CELL VOLUME 95.4 fl (80.0-105.0); MEAN CORPUSCULAR HEMOGLOBIN 29.8 pg (25.0-35.0); MEAN CORPUSCULAR HGB CONC 31.3 g/dl (31.0-37.0); MEAN PLATELET VOLUME 9.5 fl (7.0-11.0); MONO # 0.1 (0.1-0.6); MONO % 1.9 % (1.0-6.0); RBC 3.05 10^6/uL (3.5-6.1); RED CELL DISTRIBUTION WIDTH 19.8 % (11.5-14.5); WHITE BLOOD COUNT 3.2 10^3/ul (4.5-11.0)
[2017-08-04 06:52] LABS: ALT/SGPT 67 U/L (7-56); AST/SGOT 88 U/L (14-36); BLOOD UREA NITROGEN 15 mg/dL (7-21); CALCIUM 8.1 mg/dL (8.4-10.5); GFR AFRICAN-AMERICAN > 60; GFR NON-AFRICAN AMERICAN > 60
[2017-08-04] MEDS: Arformoterol 15 mcg/2 ml Inh Sol IH SCH ×2 (07:31→20:13)
[2017-08-04] MEDS: Budesonide 0.25 mg/2 ml Inhal Susp UD IH SCH ×2 (07:32→20:13)
[2017-08-04] MEDS ORDERED: Arformoterol 15 mcg/2 ml Inh Sol IH SCH (08:00)
[2017-08-04] MEDS: Insulin Reg-LOW-Coverage SC SCH ×4 (08:01→21:47)
[2017-08-04] MEDS ORDERED: Morphine 4 mg/ml ISec ONE (08:08)
[2017-08-04 08:34] VITALS: RESP 20
[2017-08-04] MEDS: Sucralfate 1 gm/10 ml Oral Susp UD PO SCH ×2 (09:09→17:38)
[2017-08-04] MEDS: Bisacodyl 5mg EC Tab PO SCH (09:12)
[2017-08-04] MEDS: Enoxaparin 30 mg Syringe SC SCH (09:12)
[2017-08-04] MEDS: Morphine 15 mg SR Tab PO SCH ×2 (09:13→22:07)
[2017-08-04] MEDS: POLYETHYLENE GLYCOL 3350 17 GM/Dose PACKET PO SCH (09:13)
--- NOTE | 2017-08-04 09:25 | CP.PCM.PN ---
<Desire Holt - Last Filed: 08/05/17 08:27> Subjective - Date & Time of Evaluation Date of Evaluation: 08/04/17 Time of Evaluation: 07:30 - Subjective Subjective: PGY-3 Heme/onc progress note Patient seen and examined at bedside. No acute distress. No events overnight. Patient continues to report sob, states that its better with supplemental O2. She continues to report general weakness. She denies chest pain, fever, chills, abd apin, n/v. Objective - Vital Signs/Intake and Output Vital Signs (last 24 hours): Temp Pulse Resp BP Pulse Ox 97.5 F L 77 20 162/99 H 97 08/04/17 08:33 08/04/17 08:33 08/04/17 08:33 08/04/17 08:33 08/04/17 08:33 Intake and Output: 08/04/17 08/04/17 06:59 18:59 Intake Total 420 Balance 420 - Medications Medications: Current Medications Acetaminophen (Tylenol 325mg Tab) 650 mg PO Q4 PRN PRN Reason: Fever >100.4 F Alprazolam (Xanax) 0.25 mg PO BID [facility] PRN Reason: Protocol Stop: 08/11/17 10:01 Amlodipine Besylate (Norvasc) 5 mg PO DAILY [facility] Arformoterol Tartrate (Brovana) 15 mcg IH [id number] [facility] Last Admin: 08/04/17 07:31 Dose: 15 mcg Bisacodyl (Dulcolax) 5 mg PO DAILY [facility] Budesonide (Pulmicort Respules) 0.25 mg IH [id number] [facility] Last Admin: 08/04/17 07:32 Dose: 0.25 mg Enoxaparin Sodium (Lovenox) 30 mg SC DAILY [facility] Famotidine (Pepcid) 40 mg PO HS [facility] Last Admin: 08/03/17 22:28 Dose: 40 mg Potassium Chloride 20 meq/ (Sodium Chloride) 1,010 mls @ 80 mls/hr IV .[id number] [facility] Last Admin: 08/03/17 22:09 Dose: 80 mls/hr Insulin Human Regular (Humulin R Low) 0 units SC ACHS [facility] PRN Reason: Protocol Last Admin: 08/04/17 08:01 Dose: 1 units Loratadine (Claritin) 10 mg PO DAILY PRN PRN Reason: Nasal congestion Losartan Potassium (Cozaar) 50 mg PO DAILY [facility] Montelukast Sodium (Singulair) 10 mg PO DAILY [facility] Morphine Sulfate (Morphine Extended Release Tab) 15 mg PO Q12 [facility] Last Admin: 08/03/17 23:00 Dose: Not Given Morphine Sulfate (Morphine Immediate Release Tab) 15 mg PO Q6H PRN PRN Reason: Pain, moderate (4-7) Morphine Sulfate (Morphine) 2 mg IVP Q4H PRN PRN Reason: Pain, severe (8-10) Ondansetron HCl (Zofran Odt) 4 mg PO Q8H PRN PRN Reason: Nausea/Vomiting Polyethylene Glycol (Miralax) 17 gm PO DAILY [facility] Sucralfate (Carafate Oral Susp) 1 gm PO BID [facility] Zolpidem Tartrate (Ambien) 5 mg PO HS PRN; Protocol PRN Reason: Insomnia - Labs Labs: 08/04/17 05:30 08/04/17 05:30 - Constitutional Appears: No Acute Distress - Head Exam Head Exam: ATRAUMATIC, NORMAL INSPECTION, NORMOCEPHALIC - Eye Exam Eye Exam: EOMI, Normal appearance - ENT Exam ENT Exam: Mucous Membranes Moist - Respiratory Exam Respiratory Exam: Rhonchi, Wheezes, NORMAL BREATHING PATTERN (on nasal cannula) . absent: Respiratory Distress - Cardiovascular Exam Cardiovascular Exam: REGULAR RHYTHM, +S1, +S2. absent: Tachycardia, Murmur - GI/Abdominal Exam GI & Abdominal Exam: Soft, Normal Bowel Sounds. absent: Distended, Firm, Tenderness - Extremities Exam Extremities Exam: Normal Inspection - Neurological Exam Neurological Exam: Alert, Awake, Oriented x3 - Skin Skin Exam: Dry, Intact, Normal Color, Warm Assessment and Plan - Assessment and Plan (Free Text) Assessment: 62 yo female with PMH of stage IV small cell cancer of the lung with metastasis to spin and liver, SIADH, diabetes, HTN, gait disturbance presented with dehydration, deconditioning and SOB Plan: CXR showed Right lower lobe airspace disease possible atelectasis continue home medications Consult Dr. Eastman continue duonebs prn blood and urine cultures pending NS IVF @80 will start granix 480mcg for 7 days, start 24 ho after discontinuation of chemotherapy around 6pm today PT evaluation <Cindi,Rudy P - Last Filed: 08/07/17 19:26> Objective - Vital Signs/Intake and Output Vital Signs (last 24 hours): Temp Pulse Resp BP Pulse Ox 97.9 F 86 20 161/81 H 94 L 08/05/17 08:25 08/05/17 09:51 08/05/17 08:25 08/05/17 09:51 08/05/17 08:25 - Labs Labs: 08/05/17 05:40 08/05/17 05:40 Attending/Attestation - Attestation I have personally seen and examined this patient.: Yes I have fully participated in the care of the patient.: Yes I have reviewed all pertinent clinical information, including history, physical exam and plan: Yes
--- NOTE | 2017-08-04 09:57 | CARD ---
APPROVED REPORT EKG Measurement Heart [id number] <Conclusion> Normal sinus rhythm Left axis deviation Left ventricular hypertrophy with QRS widening PRWP, possible lead positioning No change
[2017-08-04] MEDS ORDERED: Enoxaparin 100 mg Syringe SC SCH (10:00)
[2017-08-04] MEDS: Morphine 15 mg Immediate Release Tab PO PRN (16:27)
--- NOTE | 2017-08-05 02:07 | CON ---
DATE: 08/04/2017 PULMONARY CONSULTATION REFERRING PHYSICIAN: Yosef Reis MD REASON FOR CONSULTATION: Cough, shortness of breath. HISTORY OF PRESENT ILLNESS: This is a 72-year-old female, well known to me with stage IV small cell lung cancer, metastatic disease to spine requiring radiation therapy, also involving the liver and retroperitoneal nodes, been on a chemotherapy, admitted with cough and shortness of breath and dehydration. No hemoptysis, no hematemesis, no hematuria, no diarrhea reported. PAST MEDICAL HISTORY: Stage IV small cell cancer with extensive disease, history of COPD status post pneumonia and anemia. ALLERGIES: TO SULFA. SOCIAL HISTORY: Recently stopped smoking. Denying alcohol use. FAMILY HISTORY: No significant cardiopulmonary disease reported. MEDICATIONS: She is on Ambien 5 mg at bedtime p.r.n., Brovana inhaled twice a day, Carafate 1 g twice a day, Claritin 10 mg daily, Cozaar 50 mg daily, Dulcolax p.r.n. basis, insulin coverage, Lovenox 30 mg daily, MiraLax 17 g daily, morphine 2 mg IV every 4 hours p.r.n., morphine extended release 50 mg every 12 hours, morphine immediate release 50 mg every 6 hours p.r.n., Norvasc 5 mg daily, Pepcid 40 mg daily, IV fluid 100 mL per hour, Pulmicort inhaled twice a day, Singulair 10 mg daily, Tylenol PM, Xanax 0.25 mg twice a day and Zofran p.r.n. basis. REVIEW OF SYSTEMS: No headache. No rhinitis. Has some cough, sputum production. No hemoptysis. No hematemesis. No hematuria. No diarrhea. No leg pain or leg swelling. PHYSICAL EXAMINATION: GENERAL: Lying in the bed, in no acute distress. VITAL SIGNS: Temp is 98, heart rate is 69, respiratory rate is 20, blood pressure 93/59, pulse ox 95% on room air. HEENT: Moist mucous membrane. Crowded airway. Mallampati score is IV. NECK: Supple. No JVD. LUNGS: Have scattered rhonchi with a few wheezing. HEART: S1, S2. ABDOMEN: Soft, nontender. No organomegaly. EXTREMITIES: No edema. NEUROLOGIC: Awake, alert. Follows simple command. LABORATORY DATA: Shows hemoglobin 9.1, hematocrit 29.1, WBC 3.2, platelet is 173. Sodium 140, potassium 4.3, chloride 103, bicarbonate 30, BUN 15, creatinine 0.4, glucose 164, calcium is 8.1. Total bili 0.4, AST 88, ALT 67, alk phos is 286. Albumin is 3.0. Microbiology, blood culture has been negative. IMPRESSION AND PLAN: Extensive small cell lung cancer involving liver and spine requiring radiation to the back, anemia, chronic obstructive lung disease, diabetes and hypertension. Case discussed with Dr. Puente today, I agree with the present management. Add inhaled bronchodilator. We will get procalcitonin in the morning. No antibiotics for now. Singulair 10 mg at bedtime. Keep head at 45 degrees. Aspiration precaution. Gastric prophylaxis, deep vein thrombosis. We will get CT scan of the chest to see the extent of disease and also order procalcitonin. Thank you and we will follow with you. Robert Eastman MD
[2017-08-05 06:07] LABS: BASO # 0.01 K/mm3 (0.0-2.0); BASO % 0.1 % (0.0-3.0); GRAN # 5.99 (1.4-6.5); HEMOGLOBIN 9.9 g/dL (12.0-16.0); LYMPH # 0.8 (1.2-3.4); LYMPH % 11.6 % (22.0-35.0); MEAN CELL VOLUME 94.5 fl (80.0-105.0); MEAN CORPUSCULAR HEMOGLOBIN 30.3 pg (25.0-35.0); MEAN PLATELET VOLUME 9.2 fl (7.0-11.0); MONO % 0.3 % (1.0-6.0); RBC 3.27 10^6/uL (3.5-6.1); RED CELL DISTRIBUTION WIDTH 19.6 % (11.5-14.5); WHITE BLOOD COUNT 6.8 10^3/ul (4.5-11.0)
[2017-08-05 06:21] LABS: ALB/GLOB RATIO 1.1 (1.1-1.8); ALBUMIN 3.4 g/dL (3.0-4.8); ALT/SGPT 70 U/L (7-56); AST/SGOT 93 U/L (14-36); BLOOD UREA NITROGEN 14 mg/dL (7-21); CALCIUM 8.7 mg/dL (8.4-10.5); GFR AFRICAN-AMERICAN > 60; GFR NON-AFRICAN AMERICAN > 60
[2017-08-05] MEDS: Budesonide 0.25 mg/2 ml Inhal Susp UD IH SCH (07:51)
[2017-08-05] MEDS: Arformoterol 15 mcg/2 ml Inh Sol IH SCH (07:51)
[2017-08-05] MEDS: Insulin Reg-LOW-Coverage SC SCH ×2 (08:19→13:58)
[2017-08-05 08:25] VITALS: BP 161/81; PULSE 86; TEMP 97.9; O2SAT 94
--- NOTE | 2017-08-05 08:50 | PQF DECUBI ---
This form is a permanent part of the medical record Clarification of your documentation is requested to better reflect the severity of illness and intensity of treatment of your patient. Indicators present .Pt seen & evaluated by Wound care nurse. Small Stage 3 sacral pressure ulcer noted & tx w/ Santyl initiated. Please document the Stage 3 ulcer in your PN [x] Documented diagnosis of decubitus/pressure ulcer Location in the medical record that reflects the above clinical findings: [x] Wound assessment & findings Treatment Provided: PHYSICIAN'S RESPONSE Based on your medical judgment can you define the stage of the decubitus/ pressure ulcer as: Present On Admission [] Stage 1 Pressure Ulcer: Specify Location: [] Yes [] No Intact Skin with non-blanching erhythema (reddened area on skin) Painful or Itchy When compared to adjacent tissue may be firmer/softer or warmer/cooler [] Stage 2 Pressure Ulcer: Specify Location: []Yes []No Partial thickness loss of dermis Abrasion, blister or shallow open crater Red/pink wound bed without slough [x] Stage 3 Pressure Ulcer: Specify Location: [x]Yes [] No Full thickness skin loss (bone, tendon, muscle are not exposed) Damage or necrosis into subcutaneous soft tissues Slough present but does not obscure the depth of tissue loss Undermining and/or tunneling [] Stage 4 Pressure Ulcer: Specify Location: []Yes [] No Full thickness skin loss with exposed bone, tendon or muscle Slough Undermining and/or tunneling Extend into muscle and/or supporting structure (e.g. fascia, tendon, or joint capsule) [] Unstageable: Specify Location: [] []Yes [] No In responding to this query, please exercise your independent professional judgment. The fact that a question is asked does not imply that any particular answer is desired or expected. Thank you for your clarification on this documentation. If you have any questions please call:[ ] [phone] * Thank you, [ ] Beatriz Castañeda RN CDS business manager [employer]
--- NOTE | 2017-08-05 09:45 | CP.PCM.PN ---
Subjective - Date & Time of Evaluation Date of Evaluation: 08/05/17 Time of Evaluation: 07:30 - Subjective Subjective: PGY-2 Heme/onc progress note Patient seen and examined at bedside. No acute distress. No events overnight. Patient report in her sob, states that she no longer needs the supplemental O2. She continues to report general weakness and would like to continue with physical therapy. She reports improvement in her sacral ulcer. She denies chest pain, fever, chills, abd apin, n/v, sob, headaches, dizziness. Objective - Vital Signs/Intake and Output Vital Signs (last 24 hours): Temp Pulse Resp BP Pulse Ox 97.9 F 86 20 161/81 H 94 L 08/05/17 08:25 08/05/17 08:25 08/05/17 08:25 08/05/17 08:25 08/05/17 08:25 Intake and Output: 08/05/17 08/05/17 06:59 18:59 Intake Total 720 120 Output Total 750 Balance -30 120 - Medications Medications: Current Medications Acetaminophen (Tylenol 325mg Tab) 650 mg PO Q4 PRN PRN Reason: Fever >100.4 F Alprazolam (Xanax) 0.25 mg PO BID [facility] PRN Reason: Protocol Stop: 08/11/17 10:01 Last Admin: 08/04/17 17:40 Dose: 0.25 mg Amlodipine Besylate (Norvasc) 5 mg PO DAILY [facility] Last Admin: 08/04/17 09:13 Dose: 5 mg Arformoterol Tartrate (Brovana) 15 mcg IH [id number] [facility] Last Admin: 08/05/17 07:51 Dose: 15 mcg Bisacodyl (Dulcolax) 5 mg PO DAILY [facility] Last Admin: 08/04/17 09:12 Dose: 5 mg Budesonide (Pulmicort Respules) 0.25 mg IH [id number] [facility] Last Admin: 08/05/17 07:51 Dose: 0.25 mg Enoxaparin Sodium (Lovenox) 30 mg SC DAILY [facility] Last Admin: 08/04/17 09:12 Dose: 30 mg Famotidine (Pepcid) 40 mg PO HS [facility] Last Admin: 08/04/17 22:07 Dose: 40 mg Potassium Chloride 20 meq/ (Sodium Chloride) 1,010 mls @ 80 mls/hr IV .[id number] [facility] Last Admin: 08/05/17 02:25 Dose: 80 mls/hr Insulin Human Regular (Humulin R Low) 0 units SC ACHS [facility] PRN Reason: Protocol Last Admin: 08/05/17 08:19 Dose: 1 units Loratadine (Claritin) 10 mg PO DAILY PRN PRN Reason: Nasal congestion Losartan Potassium (Cozaar) 50 mg PO DAILY [facility] Last Admin: 08/04/17 09:11 Dose: 50 mg Montelukast Sodium (Singulair) 10 mg PO DAILY [facility] Last Admin: 08/04/17 09:26 Dose: 10 mg Morphine Sulfate (Morphine Extended Release Tab) 15 mg PO Q12 [facility] Last Admin: 08/04/17 22:07 Dose: 15 mg Morphine Sulfate (Morphine Immediate Release Tab) 15 mg PO Q6H PRN PRN Reason: Pain, moderate (4-7) Last Admin: 08/04/17 16:27 Dose: 15 mg Morphine Sulfate (Morphine) 2 mg IVP Q4H PRN PRN Reason: Pain, severe (8-10) Ondansetron HCl (Zofran Odt) 4 mg PO Q8H PRN PRN Reason: Nausea/Vomiting Polyethylene Glycol (Miralax) 17 gm PO DAILY [facility] Last Admin: 08/04/17 09:13 Dose: 17 gm Sucralfate (Carafate Oral Susp) 1 gm PO BID [facility] Last Admin: 08/04/17 17:38 Dose: 1 gm Zolpidem Tartrate (Ambien) 5 mg PO HS PRN; Protocol PRN Reason: Insomnia - Labs Labs: 08/05/17 05:40 08/05/17 05:40 - Constitutional Appears: No Acute Distress - Head Exam Head Exam: ATRAUMATIC, NORMAL INSPECTION, NORMOCEPHALIC - Eye Exam Eye Exam: EOMI, Normal appearance - ENT Exam ENT Exam: Mucous Membranes Moist - Respiratory Exam Respiratory Exam: Wheezes, NORMAL BREATHING PATTERN. absent: Respiratory Distress - Cardiovascular Exam Cardiovascular Exam: REGULAR RHYTHM. absent: Tachycardia, Murmur - GI/Abdominal Exam GI & Abdominal Exam: Soft, Normal Bowel Sounds. absent: Distended, Tenderness - Neurological Exam Neurological Exam: Alert, Awake, Oriented x3 - Skin Skin Exam: Dry, Normal Color, Warm Additional comments: sacral ulcer
[2017-08-05] MEDS: Sucralfate 1 gm/10 ml Oral Susp UD PO SCH (09:48)
[2017-08-05] MEDS: Enoxaparin 30 mg Syringe SC SCH (09:49)
[2017-08-05] MEDS: Bisacodyl 5mg EC Tab PO SCH (09:49)
[2017-08-05] MEDS: POLYETHYLENE GLYCOL 3350 17 GM/Dose PACKET PO SCH (09:50)
[2017-08-05] MEDS: Morphine 15 mg SR Tab PO SCH (09:51)
--- NOTE | 2017-08-05 10:30 | CT ---
PROCEDURE: CT Chest without contrast HISTORY: lung cancer COMPARISON: None. TECHNIQUE: Contiguous axial images were obtained through the chest without intravenous contrast enhancement. Sagittal and coronal reconstructions were performed. Radiation dose (DLP): 395 mGy-cm. This CT exam was performed using one or more of the following dose reduction techniques: Automated exposure control, adjustment of the mA and/or kV according to patient size, and/or use of iterative reconstruction technique. FINDINGS: LUNGS: There is a new area of dense consolidation in the right middle lobe. MEDIASTINUM: Unremarkable thoracic aorta. No aneurysm. Normal sized heart. Main pulmonary artery unremarkable. No vascular congestion. There is mediastinal adenopathy. There is a large 4.6 cm node in the pretracheal space. There multiple anterior mediastinal lymph nodes. There is a 3 cm sub carinal node. PLEURA: There is a moderate size right pleural effusion BONES: No fracture. No destructive lesion. UPPER ABDOMEN: Multiple large metastatic lesions are seen throughout the liver. OTHER FINDINGS: None. IMPRESSION: New area of dense consolidation in the right middle lobe. Extensive mediastinal adenopathy. Extensive metastatic disease to the liver.
[2017-08-05] MEDS ORDERED: Silver Sulfadiazine 1% Cream (25 gm) TP SCH (11:15)
[2017-08-05] MEDS ORDERED: CADEXOMER IODINE 0.9% GEL 10G TOP SCH ×2 (11:15→18:00)
[2017-08-05] MEDS: Morphine 15 mg Immediate Release Tab PO PRN (15:14)
[2017-08-05] MEDS ORDERED: Piperacillin/Tazobact 3.375 gm 100 ML IVPB STA (15:25)
[2017-08-05] MEDS ORDERED: Meropenem IV 1 gm in NS 50 ML IVPB SCH (17:30)
[2017-08-05] MEDS ORDERED: Piperacillin/Tazobact 3.375 gm 100 ML IVPB SCH (18:00)
--- NOTE | 2017-08-05 18:46 | CP.PCM.DIS ---
<Desire Holt - Last Filed: 08/06/17 07:13> Provider - Provider Date of Admission: 08/03/17 17:32 Attending physician: Yosef Reis MD Primary care physician: Zev Vail MD Time Spent in preparation of Discharge (in minutes): 60 Hospital Course - Lab Results Lab Results: Micro Results 08/03/17 20:31 Urine Urine Culture - Preliminary Gram Negative Bao Gram Negative Bao#2 08/03/17 19:30 Blood Blood Culture - Preliminary NO GROWTH AFTER 24 HOURS 08/03/17 18:30 Blood Blood Culture - Preliminary NO GROWTH AFTER 24 HOURS Most Recent Lab Values WBC 6.8 10^3/ul (4.5-11.0) D 08/05/17 05:40 RBC 3.27 10^6/uL (3.5-6.1) L 08/05/17 05:40 Hgb 9.9 g/dL (12.0-16.0) L 08/05/17 05:40 Hct 30.9 % (36.0-48.0) L 08/05/17 05:40 MCV 94.5 fl (80.0-105.0) 08/05/17 05:40 MCH 30.3 pg (25.0-35.0) 08/05/17 05:40 MCHC 32.0 g/dl (31.0-37.0) 08/05/17 05:40 RDW 19.6 % (11.5-14.5) H 08/05/17 05:40 Plt Count 194 10^3/uL (120.0-450.0) 08/05/17 05:40 MPV 9.2 fl (7.0-11.0) 08/05/17 05:40 Gran % 88.0 % (50.0-68.0) H 08/05/17 05:40 Lymph % (Auto) 11.6 % (22.0-35.0) L 08/05/17 05:40 [place] % (Auto) 0.3 % (1.0-6.0) L 08/05/17 05:40 Eos % (Auto) 0.0 % (1.5-5.0) L 08/05/17 05:40 Baso % (Auto) 0.1 % (0.0-3.0) 08/05/17 05:40 Gran # 5.99 (1.4-6.5) 08/05/17 05:40 Lymph # (Auto) 0.8 (1.2-3.4) L 08/05/17 05:40 [place] # (Auto) 0.0 (0.1-0.6) L 08/05/17 05:40 Eos # (Auto) 0.0 (0.0-0.7) 08/05/17 05:40 Baso # (Auto) 0.01 K/mm3 (0.0-2.0) 08/05/17 05:40 Sodium 134 mmol/L (132-148) 08/05/17 05:40 Potassium 4.2 mmol/L (3.6-5.0) 08/05/17 05:40 Chloride 97 mmol/L (98-107) L 08/05/17 05:40 Carbon Dioxide 28 mmol/L (21-33) 08/05/17 05:40 Anion Gap 13 (10-20) 08/05/17 05:40 BUN 14 mg/dL (7-21) 08/05/17 05:40 Creatinine 0.4 mg/dl (0.7-1.2) L 08/05/17 05:40 Est GFR ( Amer) > 60 08/05/17 05:40 Est GFR (Non-Af Amer) > 60 08/05/17 05:40 POC Glucose (mg/dL) 190 mg/dL (65-110) H 08/05/17 17:59 Random Glucose 164 mg/dL (70-110) H 08/05/17 05:40 Calcium 8.7 mg/dL (8.4-10.5) 08/05/17 05:40 Total Bilirubin 0.7 mg/dL (0.2-1.3) 08/05/17 05:40 AST 93 U/L (14-36) H 08/05/17 05:40 ALT 70 U/L (7-56) H 08/05/17 05:40 Alkaline Phosphatase 294 U/L (38-126) H 08/05/17 05:40 Total Protein 6.4 g/dL (5.8-8.3) 08/05/17 05:40 Albumin 3.4 g/dL (3.0-4.8) 08/05/17 05:40 Globulin 3.0 gm/dL 08/05/17 05:40 Albumin/Globulin Ratio 1.1 (1.1-1.8) 08/05/17 05:40 Procalcitonin 1.10 NG/ML (0.19-0.49) H 08/05/17 05:40 - Hospital Course Hospital Course: 62 yo female with PMH of 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 Patient was in infusion clinic for day 3 of chemotherapy and complained of general weakness and was transferred to ED. CXR showed Right lower lobe airspace disease possible atelectasis. Pulmonary was consulted. CT chest was ordered, showed new area of denies consolidation in right middle lobe. Urine culture came back positive. Started on antibiotic. ID consulted. Patient was receiving chemotherapy, and continued to receive granix 480mcg for 7 days. PT evaluated patient and recommended TCU. Patient was transferred to TCU ofr further PT and management. Discharge Exam - Head Exam Head Exam: ATRAUMATIC, NORMAL INSPECTION, NORMOCEPHALIC - Eye Exam Eye Exam: EOMI, Normal appearance - ENT Exam ENT Exam: Mucous Membranes Moist - Respiratory Exam Respiratory Exam: Clear to PA & Lateral, Wheezes, NORMAL BREATHING PATTERN, UNREMARKABLE. absent: Respiratory Distress - Cardiovascular Exam Cardiovascular Exam: REGULAR RHYTHM, +S1, +S2. absent: Bradycardia, Tachycardia , Systolic Murmur - GI/Abdominal Exam GI & Abdominal Exam: Normal Bowel Sounds, Unremarkable. absent: Distended, Firm , Soft, Tenderness - Neurological Exam Neurological exam: Alert, Oriented x3 - Psychiatric Exam Psychiatric exam: Normal Affect, Normal Mood - Skin Skin Exam: Dry, Intact, Normal Color, Warm Discharge Plan - Discharge Medications Prescriptions: Desvenlafaxine [Desvenlafaxine ER] 50 mg PO TID #60 tab.er.24 Tbo-Filgrastim [Granix] 480 mcg SC DAILY #4 ml - Follow Up Plan Condition: GUARDED Disposition: REHAB FACILITY/REHAB UNIT Instructions: Dehydration, Adult (DC) Referrals: Zev Vail MD [Primary Care Provider] - Follow up with primary <Rudy Puente - Last Filed: 08/07/17 19:18> Provider - Provider Date of Admission: 08/03/17 17:32 Attending physician: Yosef Reis MD Primary care physician: Zev Vail MD Hospital Course - Lab Results Lab Results: Micro Results 08/03/17 19:30 Blood Blood Culture - Preliminary NO GROWTH AFTER 3 DAYS 08/03/17 18:30 Blood Blood Culture - Preliminary NO GROWTH AFTER 3 DAYS 08/03/17 20:31 Urine Urine Culture - Final Klebsiella Pneumoniae Ssp Pneu Proteus Mirabilis Most Recent Lab Values WBC 6.8 10^3/ul (4.5-11.0) D 08/05/17 05:40 RBC 3.27 10^6/uL (3.5-6.1) L 08/05/17 05:40 Hgb 9.9 g/dL (12.0-16.0) L 08/05/17 05:40 Hct 30.9 % (36.0-48.0) L 08/05/17 05:40 MCV 94.5 fl (80.0-105.0) 08/05/17 05:40 MCH 30.3 pg (25.0-35.0) 08/05/17 05:40 MCHC 32.0 g/dl (31.0-37.0) 08/05/17 05:40 RDW 19.6 % (11.5-14.5) H 08/05/17 05:40 Plt Count 194 10^3/uL (120.0-450.0) 08/05/17 05:40 MPV 9.2 fl (7.0-11.0) 08/05/17 05:40 Gran % 88.0 % (50.0-68.0) H 08/05/17 05:40 Lymph % (Auto) 11.6 % (22.0-35.0) L 08/05/17 05:40 [place] % (Auto) 0.3 % (1.0-6.0) L 08/05/17 05:40 Eos % (Auto) 0.0 % (1.5-5.0) L 08/05/17 05:40 Baso % (Auto) 0.1 % (0.0-3.0) 08/05/17 05:40 Gran # 5.99 (1.4-6.5) 08/05/17 05:40 Lymph # (Auto) 0.8 (1.2-3.4) L 08/05/17 05:40 [place] # (Auto) 0.0 (0.1-0.6) L 08/05/17 05:40 Eos # (Auto) 0.0 (0.0-0.7) 08/05/17 05:40 Baso # (Auto) 0.01 K/mm3 (0.0-2.0) 08/05/17 05:40 Sodium 134 mmol/L (132-148) 08/05/17 05:40 Potassium 4.2 mmol/L (3.6-5.0) 08/05/17 05:40 Chloride 97 mmol/L (98-107) L 08/05/17 05:40 Carbon Dioxide 28 mmol/L (21-33) 08/05/17 05:40 Anion Gap 13 (10-20) 08/05/17 05:40 BUN 14 mg/dL (7-21) 08/05/17 05:40 Creatinine 0.4 mg/dl (0.7-1.2) L 08/05/17 05:40 Est GFR ( Amer) > 60 08/05/17 05:40 Est GFR (Non-Af Amer) > 60 08/05/17 05:40 POC Glucose (mg/dL) 220 mg/dL (65-110) H 08/05/17 21:21 Random Glucose 164 mg/dL (70-110) H 08/05/17 05:40 Calcium 8.7 mg/dL (8.4-10.5) 08/05/17 05:40 Total Bilirubin 0.7 mg/dL (0.2-1.3) 08/05/17 05:40 AST 93 U/L (14-36) H 08/05/17 05:40 ALT 70 U/L (7-56) H 08/05/17 05:40 Alkaline Phosphatase 294 U/L (38-126) H 08/05/17 05:40 Total Protein 6.4 g/dL (5.8-8.3) 08/05/17 05:40 Albumin 3.4 g/dL (3.0-4.8) 08/05/17 05:40 Globulin 3.0 gm/dL 08/05/17 05:40 Albumin/Globulin Ratio 1.1 (1.1-1.8) 08/05/17 05:40 Procalcitonin 1.10 NG/ML (0.19-0.49) H 08/05/17 05:40 Attending/Attestation - Attestation I have personally seen and examined this patient.: Yes I have fully participated in the care of the patient.: Yes I have reviewed all pertinent clinical information, including history, physical exam and plan: Yes
--- NOTE | 2017-08-05 19:28 | PN ---
DATE: REFERRING PHYSICIAN: Yosef Reis MD SUBJECTIVE: She is lying in the bed at 45 degrees. Feels much better. Decreased cough. Decreased short of breath. No chest pain. No fever. No nausea, no vomiting, no diarrhea. No leg pain or leg swelling. OBJECTIVE: GENERAL: In no acute distress. VITAL SIGNS: Temperature is 98, heart rate 86, respiratory rate is 20, blood pressure 161/81, pulse ox 94% on 2 L nasal cannula. HEENT: Moist mucous membranes. Small oral cavity. Crowded airway. NECK: Supple. No JVD. LUNGS: Few scattered rhonchi. HEART: S1, S2. ABDOMEN: Soft, nontender. No organomegaly. EXTREMITIES: No edema. NEUROLOGIC: Awake, alert, and follows simple commands. MEDICATIONS: She is on Ambien 5 mg at bedtime p.r.n., Brovana 50 mcg inhaled twice a day, Carafate 1 g twice a day, Claritin 10 mg daily, Cozaar 50 mg daily, Dulcolax 5 mg daily, insulin coverage, Lovenox 30 mg subcu daily, meropenem 1 g every 8 hours, MiraLax 17 g daily, morphine 2 g every 4 hours p.r.n., morphine extended release 50 mg every 12 hours, morphine immediate release 50 mg every 6 hours p.r.n., NicoDerm patch daily, Norvasc 5 mg daily, Pepcid 40 mg daily, potassium with IV fluid 80 mL/hour, Pulmicort inhaled twice a day, Singulair 10 mg daily, Tylenol p.r.n., Xanax 0.25 mg twice a day, Zofran p.r.n. basis. LABORATORY DATA: Shows hemoglobin 9.9, hematocrit 30.9, WBC 6.8, platelets 194. Sodium 134, potassium 4.2, chloride 97, bicarbonate 28. BUN 14, creatinine 0.4. Glucose 164. Calcium 8.7. Total bili 0.7, AST 93, ALT 70, alk phos is 294. Albumin is 3.4, procalcitonin 1.01. Urine culture has gram-negative rods. Blood culture is negative. CAT scan of the chest done today, which shows a new area of dense consolidation in the right middle lobe, extensive mediastinal adenopathy, also extensive metastatic disease to the liver. IMPRESSION AND PLAN: Small cell lung cancer which is extensive disease involving the spine requiring radiation therapy, liver metastatic disease, also retroperitoneal lymphadenopathy, anemia, chronic obstructive lung disease, diabetes, hypertension, has mildly increased procalcitonin, so right middle lobe could be pneumonia? The patient seen by Infectious Disease and was started on Merrem. Pulmonary point of view, continue bronchodilator, pulmonary toilet, gastric prophylaxis, DVT prophylaxis, aspiration precaution, fall precaution. Will benefit from therapy. Thank you and we will follow with you. Robert Eastman MD
[2017-08-06] MEDS ORDERED: DESVENLAFAXINE 50 MG PO SCH (10:00)
[2017-08-06] MEDS ORDERED: Silver Sulfadiazine 1% Cream (25 gm) TP SCH (10:00)
[2017-08-06] MEDS ORDERED: Home Med 1 UNIT PO SCH (10:00)
== END 2017-08-05 17:27 | DRG 190 ==
LOC: ED 16:38 → ERH 17:32 → 3RSO 22:41
PROVIDERS: ADMIT Family Medicine; ATTEND Family Medicine
DX: J44.1 Chronic obstructive pulmonary disease with (acute) exacerbation (principal); L89.153 Pressure ulcer of sacral region, stage 3; C78.7 Secondary malignant neoplasm of liver and intrahepatic bile duct; C79.51 Secondary malignant neoplasm of bone; C34.90 Malignant neoplasm of unspecified part of unspecified bronchus or lung; E22.2 Syndrome of inappropriate secretion of antidiuretic hormone; D61.818 Other pancytopenia; E86.0 Dehydration; R62.7 Adult failure to thrive; I10 Essential (primary) hypertension; R26.9 Unspecified abnormalities of gait and mobility; K59.00 Constipation, unspecified; E66.9 Obesity, unspecified; G89.3 Neoplasm related pain (acute) (chronic); D63.8 Anemia in other chronic diseases classified elsewhere; E11.65 Type 2 diabetes mellitus with hyperglycemia; Z96.651 Presence of right artificial knee joint; Z79.84 Long term (current) use of oral hypoglycemic drugs; Z87.891 Personal history of nicotine dependence; Z87.01 Personal history of pneumonia (recurrent); Z88.2 Allergy status to sulfonamides

== ENCOUNTER 2017-08-05 17:17 | Inpatient (IN) | payer OTHER ==
[2017-08-05] MEDS ORDERED: Morphine 2 mg/2 mL syringe IVP PRN (20:41)
[2017-08-05] MEDS ORDERED: Meropenem IV 1 gm in NS 50 ML IVPB SCH (22:00)
[2017-08-05] MEDS: Insulin Reg-LOW-Coverage SC SCH (22:52)
[2017-08-05] MEDS: Morphine 15 mg SR Tab PO SCH (23:08)
[2017-08-05] MEDS: Meropenem IV 1 gm in NS 50 ML IVPB SCH (23:19)
[2017-08-06] MEDS: Meropenem IV 1 gm in NS 50 ML IVPB SCH ×3 (05:13→21:53)
[2017-08-06 06:11] LABS: MEAN CORPUSCULAR HEMOGLOBIN 30.1 pg (25.0-35.0); MEAN CORPUSCULAR HGB CONC 32.1 g/dl (31.0-37.0); MEAN PLATELET VOLUME 9.6 fl (7.0-11.0); RBC 3.32 10^6/uL (3.5-6.1); RED CELL DISTRIBUTION WIDTH 19.5 % (11.5-14.5)
[2017-08-06 06:22] LABS: ALB/GLOB RATIO 1.3 (1.1-1.8); ALBUMIN 3.5 g/dL (3.0-4.8); ALT/SGPT 57 U/L (7-56); AST/SGOT 70 U/L (14-36); BLOOD UREA NITROGEN 16 mg/dL (7-21); CALCIUM 8.4 mg/dL (8.4-10.5); GFR AFRICAN-AMERICAN > 60; GFR NON-AFRICAN AMERICAN > 60
[2017-08-06] MEDS: Arformoterol 15 mcg/2 ml Inh Sol IH SCH ×2 (07:14→23:30)
[2017-08-06] MEDS: Budesonide 0.25 mg/2 ml Inhal Susp UD IH SCH ×2 (07:14→23:30)
[2017-08-06] MEDS: Insulin Reg-LOW-Coverage SC SCH ×4 (07:28→22:04)
[2017-08-06] MEDS ORDERED: Arformoterol 15 mcg/2 ml Inh Sol IH SCH (08:00)
--- NOTE | 2017-08-06 09:16 | CON ---
DATE: 08/06/2017 LOCATION: The patient is seen earlier this morning in room 316. CHIEF COMPLAINT: Weakness and cough times several days. HISTORY OF PRESENT ILLNESS: This is a 72-year-old female with a history of diabetes mellitus, hypertension, depression, anxiety, history of lower back tumor, history of influenza, history of healthcare-associated pneumonia and obesity. The patient also with a stage IV lung cancer with metastases to the liver and metastases to the spine and retroperitoneal adenopathy. Who was admitted with dehydration and found to have a gram-negative teresa in the urine and also found to have a new pneumonia on the CT scan. Infectious Disease consultation requested. The patient denies any fevers and chills at this point. She does have cough and she feels short of breath intermittently and she has no chest pain, no abdominal pain, diarrhea or constipation or bright red blood per rectum. REVIEW OF SYSTEMS: A 12-point review of systems is performed and review of systems includes no chest pain now. No dysuria or frequency. No diarrhea or constipation. No bright red blood per rectum. No headaches or blurred vision. There is a new cough. There is mild shortness of breath. PAST MEDICAL HISTORY: Significant for diabetes and hypertension, depression, anxiety, low back tumor, obesity, stage IV lung cancer with metastasis to the spine and liver and retroperitoneal adenopathy on CAT scan. PAST SURGICAL HISTORY: Significant for cardiac catheterization and a Port-A-Cath and the right knee replacement. ALLERGIES: THE PATIENT IS ALLERGIC TO SULFA. MEDICATIONS AT HOME: Include the patient to have metformin, Granix, morphine, Famvir. PHYSICAL EXAMINATION: GENERAL: The patient is in bed, no acute distress. VITAL SIGNS: Temperature of 98 and heart rate of 93, it was up to 98; respiratory rate was 20 in the hospital, it was higher to 22 with a blood pressure is 150/80. The patient's oxygen saturation is 95% saturation and with a nasal cannula. HEENT: Examination of HEENT is unremarkable. NECK: Supple. LUNGS: Have decreased breath sounds. HEART: Normal S1 and S2. ABDOMEN: Soft, nontender. No organomegaly. No rebound. No guarding. LABORATORY DATA: Laboratory examination reveals a white count of 7000, hemoglobin of 10, platelets of 186. Chemistries reveals a BUN of 16, creatinine of 0.4, AST is 70, ALT of 57, alk phos is 282. The laboratories are noted. Microbiology reveals a gram-negative teresa in the urine. The blood cultures are reported to be no growth. CAT scan is also noted to be positive for new infiltrate. ASSESSMENT AND PLAN: A 72-year-old female with diabetes and hypertension, depression, anxiety, low back tumor, obesity, stage IV lung cancer with metastasis to the liver, bone and retroperitoneal adenopathy with sepsis with right middle lobe healthcare-associated and elevated procalcitonin, probable bacterial, gram-positive versus gram-negative pneumonia and also a gram-negative teresa urinary tract infection. We will repeat urinalysis and urine culture and check on the final blood cultures and start the patient on meropenem and doxycycline. Check on the final culture results. We will follow closely with you. Jorge Luis Hernandez MD
[2017-08-06] MEDS ORDERED: GRANIX SC SCH (10:00)
[2017-08-06] MEDS ORDERED: Silver Sulfadiazine 1% Cream (25 gm) TP SCH (10:00)
[2017-08-06] MEDS: Morphine 15 mg Immediate Release Tab PO PRN (10:28)
[2017-08-06] MEDS: Morphine 15 mg SR Tab PO SCH ×2 (10:30→21:52)
[2017-08-06] MEDS: DESVENLAFAXINE 50 MG PO SCH (10:31)
[2017-08-06] MEDS: CADEXOMER IODINE 0.9% GEL 10G TOP SCH ×2 (10:32→17:37)
[2017-08-06] MEDS: Enoxaparin 30 mg Syringe SC SCH (10:32)
[2017-08-06] MEDS: Bisacodyl 5mg EC Tab PO SCH (10:32)
[2017-08-06] MEDS: POLYETHYLENE GLYCOL 3350 17 GM/Dose PACKET PO SCH (10:32)
[2017-08-06] MEDS: Sucralfate 1 gm/10 ml Oral Susp UD PO SCH ×2 (10:35→17:36)
[2017-08-06] MEDS: GRANIX SC SCH (12:53)
--- NOTE | 2017-08-07 03:33 | CON ---
DATE: PULMONARY CONSULTATION REFERRING PHYSICIAN: Dr. Puente. REASON FOR CONSULTATION: Chronic obstructive lung disease, small cell lung cancer. HISTORY OF PRESENT ILLNESS: This is a 72-year-old female well known to me from previous admission and acute side of the hospital recently on chemotherapy, came in with feeling weak, some cough and shortness of breath. Admitted to the hospital for right middle lobe new infiltrate on CAT scan. There is no hemoptysis, no hematemesis, no hematuria, no diarrhea reported. PAST MEDICAL HISTORY: Stage IV small cell lung cancer, chronic obstructive lung disease, anemia. ALLERGIES: TO SULFA. SOCIAL HISTORY: Recently stopped smoking or any alcohol use. FAMILY HISTORY: No significant cardiopulmonary disease reported. MEDICATIONS: She is on Ambien 10 mg at bedtime p.r.n., Brovana inhaled twice a day, Carafate 1 g twice a day, Claritin 10 mg daily, Cozaar 50 mg daily, doxycycline 100 mg twice a day, Dulcolax 5 mg at bedtime, Lovenox 30 mg subcu daily, meropenem 1 g every 8 hours, MiraLax 17 g daily, morphine 2 mg every 4 hours p.r.n., morphine extended release 50 mg twice a day, morphine immediate release 50 mg every 6 hours p.r.n., Nicoderm patch daily, Norvasc 5 mg daily, Pepcid 40 mg daily, potassium with IV fluid, Singulair 10 mg daily, Tylenol p.r.n., Xanax 0.25 mg twice a day, Zofran p.r.n. basis. REVIEW OF SYSTEMS: No headache, no rhinitis. Cough is better. Shortness of breath is better. No chest pain. No nausea, no vomiting. No diarrhea, no dysuria. No leg pain or leg swelling. PHYSICAL EXAMINATION: GENERAL: Sitting up in a chair, in no acute distress. VITAL SIGNS: Temperature is 98, heart rate 98, respiratory is 20, blood pressure 128/59, pulse ox of 95% on room air. HEENT: Moist mucous membrane. Crowded airway. No ulcer or thrush noted. NECK: Supple. No JVD. LUNGS: Fair airflow with rhonchi. HEART: S1 and S2. ABDOMEN: Soft, nontender. No organomegaly. EXTREMITIES: No edema. NEUROLOGIC: Awake and alert, follows simple commands. LABORATORY DATA: Shows hemoglobin 10.0, hematocrit 31.2, WBC 7.0, platelet is 186. Sodium 136, potassium 3.7, chloride 100, bicarbonate 27, BUN 16, creatinine 0.4, glucose 197, calcium 8.4, AST 70, ALT 57, alk phos is 282. Albumin is 3.5. Microbiology, urine culture has Klebsiella pneumoniae. CAT scan of the chest shows right middle lobe infiltrate, mediastinal adenopathy. IMPRESSION AND PLAN: Small cell lung cancer, which is extensive disease involving spine, requiring radiation, metastatic disease to the liver, retroperitoneal lymphadenopathy, anemia, chronic obstructive lung disease, diabetes, hypertension, urinary tract infection. Pulmonary point of view, doing okay. Continue p.o. and inhaled bronchodilator, aspiration precaution. Gastric prophylaxis, deep venous thrombosis prophylaxis, intravenous fluids, antibiotics as per Infectious Disease. Thank you and we will follow with you. Robert Eastman MD
[2017-08-07] MEDS: Meropenem IV 1 gm in NS 50 ML IVPB SCH ×3 (05:34→21:48)
[2017-08-07] MEDS: Insulin Reg-LOW-Coverage SC SCH ×4 (06:57→21:44)
[2017-08-07] MEDS: Budesonide 0.25 mg/2 ml Inhal Susp UD IH SCH ×2 (07:33→21:51)
[2017-08-07] MEDS: Arformoterol 15 mcg/2 ml Inh Sol IH SCH ×2 (07:33→21:49)
[2017-08-07] MEDS: Morphine 15 mg SR Tab PO SCH ×2 (10:00→21:52)
[2017-08-07] MEDS: Sucralfate 1 gm/10 ml Oral Susp UD PO SCH ×2 (10:01→17:40)
[2017-08-07] MEDS: Bisacodyl 5mg EC Tab PO SCH (10:02)
[2017-08-07] MEDS: CADEXOMER IODINE 0.9% GEL 10G TOP SCH ×2 (10:03→17:40)
[2017-08-07] MEDS: DESVENLAFAXINE 50 MG PO SCH (10:03)
[2017-08-07] MEDS: Enoxaparin 30 mg Syringe SC SCH (10:04)
[2017-08-07] MEDS: POLYETHYLENE GLYCOL 3350 17 GM/Dose PACKET PO SCH (10:04)
--- NOTE | 2017-08-07 10:40 | PN ---
DATE: 08/07/2017 SUBJECTIVE: The patient is in bed, in no acute distress, nontoxic. The patient is seen earlier in room 316. PHYSICAL EXAMINATION: VITAL SIGNS: Temperature is 97, blood pressure is 130/70, respiratory rate of 16. HEENT: Examination of HEENT is unremarkable. NECK: Supple. LUNGS: Have decreased breath sounds. HEART: Normal S1, S2. ABDOMEN: Soft, nontender. LABORATORY DATA: Laboratory examination reveals a white count of 7000. BUN of 16, creatinine of 0.4. Microbiology is noted. ASSESSMENT AND PLAN: A 72-year-old female seen earlier this morning in room 316, who is allergic to sulfa, who has a history of diabetes, hypertension, depression, anxiety, low back tumor, obesity and stage IV lung cancer with metastasis to liver, bone and retroperitoneal adenopathy, admitted with sepsis with a right middle lobe healthcare-associated pneumonia with an elevated procalcitonin, gram-positive cocci versus gram-negative teresa and the patient also with a gram-negative teresa urinary tract infection. Currently, on meropenem and doxycycline day #2, would complete 4-7 days of antibiotics pending identification and sensitivity of the gram-negative teresa in the urine. We will follow with you. We will follow also to trending the procalcitonin. Jorge Luis Hernandez MD
[2017-08-07] MEDS: GRANIX SC SCH (10:53)
[2017-08-07] MEDS: Morphine 15 mg Immediate Release Tab PO PRN (14:05)
--- NOTE | 2017-08-07 18:07 | PN ---
DATE: 08/07/2017 PULMONARY PROGRESS NOTE REFERRING PHYSICIAN: Dr. Puente. SUBJECTIVE: She is lying in the bed, head at 45 degrees. Night was unremarkable. No headache. No rhinitis. Cough is better. No nausea. No leg pain. No leg swelling. OBJECTIVE: GENERAL: In no acute distress. VITAL SIGNS: Temp is 98, heart rate is 95, respiratory rate is 18, blood pressure 146/79, pulse ox 92% on room air. HEENT: Moist mucous membrane. Crowded airway. NECK: Supple. No JVD. LUNGS: Have a fair airflow with few rhonchi. HEART: S1 and S2. ABDOMEN: Soft, nontender. No organomegaly. EXTREMITIES: No edema. NEUROLOGICAL: Awake and alert. Follows simple command. LABORATORY DATA: Shows glucose 176. MEDICATIONS: She is on Ambien 5 mg at bedtime p.r.n., Brovana inhaled twice a day, Carafate 1 g twice a day, Claritin 10 mg daily, Cozaar 50 mg daily, doxycycline 100 mg twice a day, Dulcolax 5 mg daily, Lovenox 30 mg subcu daily, meropenem 1 g IV every 8 hours, MiraLax 17 g daily, morphine 2 mg IV every 4 hours p.r.n., morphine extended release 50 mg every 12 hours, morphine immediate release 50 mg every 6 hours p.r.n., Nicoderm patch daily, Norvasc 5 mg daily, Pepcid 40 mg daily, potassium with IV fluid 80 mL/hour, Pulmicort inhaled twice a day, Singulair 10 mg daily, Tylenol p.r.n. basis, Xanax 0.25 mg twice a day, Zofran p.r.n. basis. 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 Pulmonary point of view, she is doing well. Continue bronchodilator. Keep head at 45 degrees. Sleep apnea precaution. Gastric prophylaxis, deep venous thrombosis prophylaxis. Fall precautions. Antibiotics as per Infectious Diseases. Thank you and we will follow with you. Robert Eastman MD [facility] # [id number]
--- NOTE | 2017-08-07 23:52 | PN ---
DATE: 08/07/2017 ONCOLOGY PROGRESS NOTE LOCATION: Patient is in room 316. SUBJECTIVE: Patient is seen sitting out of bed in the chair and was participating in physical therapy earlier today. Feels good. Night was unremarkable. Denies any headaches. Cough is better. Appetite is good. No nausea, no vomiting. Patient has not had a bowel movement for about 24 hours now. PHYSICAL EXAMINATION: GENERAL: Patient is awake, alert, oriented, in no acute distress. VITAL SIGNS: Stable. T-max is 98.4, heart rate is 95, respirations 18, blood pressure is 146/79, pulse ox is 92% on room air. Patient tells me that she had earlier on dizziness in the morning, which lasted about 10 minutes and then dissipated on its own. HEENT: Head is normocephalic and atraumatic. Conjunctivae pale. Sclerae are anicteric. Pupils are equally reactive to light and accommodation. Examination of the oropharynx reveals the patient to be edentulous. No oropharyngeal lesions are noted. Tongue is moist. No ulcerations are noted. No fungal infection is noted. LUNGS: Relatively clear to percussion and auscultation with scattered rhonchi. Patient has decreased breath sounds on the right side posteriorly. HEART: Reveals PMI to be in the fifth intercostal space inside the midclavicular line. S1 and S2 are normal. No gallop or murmur is heard. ABDOMEN: Soft, nontender, protuberant. No rebound, rigidity, or guarding is noted. Liver and spleen not palpable. EXTREMITIES: Reveals no cyanosis, clubbing, or edema. NEUROLOGIC: Reveals higher functions to be normal. No focal deficits are noted. BACK: Reveals still some degree of mid back tenderness, though the pain score today is 2 on a scale of 0 to 10. Patient still has the sacral decubitus, which is about the size of 1.5 cm. It is healthy, must be cleaned and dressed daily with Silvadene cream and sterile dressing. LABORATORY DATA: Shows glucose of 176. AST and ALT are slightly elevated, so is the alkaline phosphatase. MEDICATIONS: Patient's medications were reviewed. She is on Ambien 5 mg at bedtime. p.r.n., Brovana inhaled twice a day, Carafate 1 g twice a day, Claritin 10 mg daily, Cozaar 50 mg daily, doxycycline 100 mg twice a day, Dulcolax 5 mg daily, Lovenox 30 mg subcu daily. She is on meropenem 1 g IV every 8 hours, MiraLax 17 g daily, morphine sulfate 2 mg IV every 4 hours p.r.n., morphine sulfate extended release 15 mg p.o. every 12 hours, morphine sulfate immediate release 15 mg p.o. every 6 hours p.r.n. She is on Nicoderm patch 21 mg placed everyday. She is on Pulmicort inhaled twice a day, Singulair 10 mg daily, Tylenol p.r.n., Xanax 0.25 b.i.d., Zofran on a p.r.n. basis. ASSESSMENT NOTES AND PLAN: This is a patient with extensive small cell lung carcinoma with documented liver and bone metastases, status post chemotherapy with carboplatin and etoposide, given exactly 6 days ago, currently on Granix. We will check when was the last dose of Aredia as we may have to give it to her while she is in the TCU. Continue active physical therapy at least twice a day while the patient is wearing the back brace. Ordered a calorie count for her. Patient is also going to get Glucerna 3 cans a day. I told her son to also get additional protein-rich foods. She was getting about 60 to 70 g of protein everyday. We will continue to monitor the patient's white count, platelet count, CBC over the next several days. Patient's next chemotherapy will be due exactly 2 weeks from this coming Tuesday. Time spent with the patient is greater than 45 minutes, out of which more than 50% of the time was spent in [id number] contact with the patient. Patient's son, Usman, was also with her and all questions asked by the patient and her son were answered to the best of my ability. Time spent in talking to the family was another 40 minutes. Please make a note of that. I will speak to Dr. Eastman the CAT scan appears to be compared to the prior two CAT scans of the chest. Rudy Puente MD [facility] # [id number]
[2017-08-08] MEDS: Meropenem IV 1 gm in NS 50 ML IVPB SCH ×3 (06:09→21:55)
[2017-08-08] MEDS: Morphine 15 mg Immediate Release Tab PO PRN (06:09)
[2017-08-08 06:26] LABS: BASO # 0.01 K/mm3 (0.0-2.0); BASO % 0.2 % (0.0-3.0); EOS % 0.2 % (1.5-5.0); GRAN # 3.35 (1.4-6.5); GRAN % 71.7 % (50.0-68.0); HEMOGLOBIN 9.8 g/dL (12.0-16.0); LYMPH # 1.1 (1.2-3.4); LYMPH % 22.6 % (22.0-35.0); MEAN CELL VOLUME 93.2 fl (80.0-105.0); MEAN CORPUSCULAR HEMOGLOBIN 30.2 pg (25.0-35.0); MEAN CORPUSCULAR HGB CONC 32.3 g/dl (31.0-37.0); MEAN PLATELET VOLUME 9.7 fl (7.0-11.0); MONO # 0.3 (0.1-0.6); MONO % 5.3 % (1.0-6.0); RBC 3.25 10^6/uL (3.5-6.1); RED CELL DISTRIBUTION WIDTH 18.4 % (11.5-14.5); WHITE BLOOD COUNT 4.7 10^3/ul (4.5-11.0)
[2017-08-08] MEDS: Insulin Reg-LOW-Coverage SC SCH ×4 (06:35→22:21)
[2017-08-08 06:56] LABS: ALB/GLOB RATIO 1.3 (1.1-1.8); ALBUMIN 3.8 g/dL (3.0-4.8); ALT/SGPT 47 U/L (7-56); AST/SGOT 61 U/L (14-36); BLOOD UREA NITROGEN 10 mg/dL (7-21); CALCIUM 8.9 mg/dL (8.4-10.5); GFR AFRICAN-AMERICAN > 60; GFR NON-AFRICAN AMERICAN > 60
[2017-08-08] MEDS: Budesonide 0.25 mg/2 ml Inhal Susp UD IH SCH ×2 (08:01→21:45)
[2017-08-08] MEDS: Arformoterol 15 mcg/2 ml Inh Sol IH SCH ×2 (08:01→21:45)
--- NOTE | 2017-08-08 08:55 | HP ---
LOCATION: The patient is in room 316, bed 1. HISTORY OF PRESENT ILLNESS: The patient is admitted to the TCU for deconditioning and gait strengthening. This is a 72-year-old female with a history of diabetes mellitus, hypertension, depression, anxiety, history of extensive small cell lung carcinoma involving the right lung extending into the mediastinum, right pleural effusion, bone metastasis; along with this, patient has diagnosis of liver metastasis as well, for which, she has been on systemic chemotherapy with carboplatin and etoposide. Along with this, the patient has been getting Aredia, which is a bisphosphonate, on a monthly basis, every 28 days, who was admitted to the acute side post chemotherapy for dehydration, given IV fluids, improved post chemotherapy, was put on Neupogen prophylactically. While on the acute side, the patient was having urinary frequency, cultures were drawn, and the patient on the chest x-ray and CAT scan, had a dense right middle lobe infiltrate for which she was put on antibiotics. Infectious Disease consult was obtained and the urine culture was positive for Gram-negative bacteria that was also this morning called in and said that the patient had Gram-negative species in the urine culture, Klebsiella pneumoniae species, Proteus mirabilis on the reports that was done on 08/03/2017. Klebsiella was sensitive to various antibiotics including Merrem. It is also sensitive to Cipro. The patient has been placed on Merrem and doxycycline pending further results including the blood cultures. Subjectively, the patient is feeling better since admission and she was able to do some workout after being transferred to the transitional care unit. She was able to get up and walk around with assistance using a back brace. REVIEW OF SYSTEMS: Twelve-system review of systems was performed. The patient denies any history of chest pain. The patient has minimal back pain for which she takes both the MS Contin extended release and MSIR. The patient denies any dysuria or frequency. No diarrhea or constipation. No history of coughing or hemoptysis. No history of hematochezia or any bright red bleeding per rectum. No history of headache or blurred vision. No new coughing. Question of mild shortness of breath on exertion. PAST MEDICAL HISTORY: Significant for the fact the patient was diagnosed with extensive small cell lung carcinoma when she presented to our office about two and a half months ago with worsening back pain. She was admitted to the hospital and after extensive workup, was confirmed to have extensive metastases to the bone causing significant pain secondary to fracture and compression of the dorsal spine and the nerve roots exiting from the dorsal spine without any significant cord compression. The patient received prophylactic radiation to the spine, improved systemic chemotherapy, and subsequent to that, the patient has had 2 other admissions, each time admitted after chemotherapy. The patient also has a history of diabetes, hypertension, depression, anxiety and COPD as well. PAST SURGICAL HISTORY: Significant for cardiac catheterization and right knee replacement. ALLERGIES: THE PATIENT IS ALLERGIC TO SULFA. MEDICATIONS: The patient's medications have been reviewed below. PHYSICAL EXAMINATION: GENERAL: The patient is seen sitting out of bed in the chair. The patient is alert and oriented x3. No significant distress. VITAL SIGNS: Stable. T-max is 98.4; heart rate is 93, it was up to 98; respiration is 20, with a blood pressure of 150/80; O2 sat is 95%. The patient is off nasal cannula. HEENT: Head is normocephalic and atraumatic. Conjunctivae pale. Sclerae are anicteric. Pupils are equally reactive to light and accommodation. Examination of the oropharynx reveals no oropharyngeal lesion. Tongue is moist. No ulcerations are noted. The patient is edentulous. LUNGS: Reveals decreased breath sounds on the right side posteriorly with no scattered wheezes or rhonchi heard. Left lung is clear. HEART: Reveals PMI to be in the fifth intercostal space inside the midclavicular line. S1 and S2 are normal. No gallop or murmur is heard. ABDOMEN: Protuberant, soft, nontender. No rebound, rigidity or guarding is noted. No other masses are felt. EXTREMITIES: Reveals no cyanosis, clubbing or edema. Upper extremities are within normal limits. SPINE: Reveals the patient to have slight kyphosis, but no significant tenderness over the dorsal spine. The patient has some tenderness over the lumbar area. Still has a sacral decubitus, which measures about 1.5 cm in greatest diameter, it is dressed and has been clean, and dressed with Silvadene dressing. LABORATORY DATA: Reveals a white count of 7000, hemoglobin of 10, platelet count of 186,000. BUN of 16, creatinine 0.4, AST is 70, ALT is 57, alkaline phosphatase 282. As mentioned, the microbiology of the urine reveals Gram-negative bacteria. Blood cultures are negative. CAT scan shows a right dense middle lobe infiltrate, which is still related to her underlying disease along with right pleural effusion, which likely is improved. The patient's medications were reviewed. They including the following, which are continuation of the medicines that she was on the acute side. She is on Ambien 5 mg p.o. at bedtime, Brovana 15 mcg inhaled every 12 hours, Carafate 1 g p.o. twice a day, Claritin 10 mg p.o. daily, Cozaar 50 mg p.o. daily, doxycycline 100 mg p.o. every 12 hours, Dulcolax 5 mg p.o. daily. She is on home medication for her depression, which is Pristiq, she takes 1 pill twice a day. She is on insulin coverage. She is on Lovenox 30 mg subcu daily. She is on Merrem, we started this morning, the patient is getting 1 g every 8 hours. She is on MiraLax 17 g p.o. daily. She is on morphine 2 mg IV every 4 hours p.r.n. for severe pain. She is on morphine sulfate extended release 15 mg p.o. every 12 hours, immediately release 15 mg p.o. every 6 hours. She is on nicotine patch 21 mcg daily. She is on Norvasc 5 mg daily, famotidine 40 mg daily. She is on IV fluids at 80 mL an hour. She is on Pulmicort 0.25 mg every 12 hours. Silvadene is being applied to the sacral decubitus at least once a day, Singulair 10 mg p.o. daily, Tylenol p.r.n., Xanax 0.25 mg p.o. b.i.d., Zofran 4 mg by mouth every 8 hours p.r.n. for nausea. Lab data from today were reviewed. White count is 7, hemoglobin 10, hematocrit 31, platelet count is 186,000. Blood sugars have been running between 187 and 206. Chemistries are normal, K is 3.7. ASSESSMENT, NOTES AND PLAN: The patient has extensive small cell lung carcinoma with documented liver and bone metastasis, status post chemotherapy, status post IV bisphosphonate therapy, currently has a dense middle lobe infiltrate, right pleural effusion. Urinary cultures positive for infection, for which the patient is on Merrem, which will cover both infections. Even though the patient is asymptomatic as far as the lung is concerned, to differentiate between tumor related changes versus infection, difficult to differentiate while the patient just had chemotherapy and covering both with IV antibiotics and p.o. doxycycline. The patient will continue her physical therapy. She is also on Granix 480 mcg daily that she will continue for the next 4 doses. Labs for tomorrow have been requested. The patient will continue physical therapy at least once a day, and if she continues to improve, we will continue her rehab and then plan on discharging the patient to home once she is fully acclimatized to her activities of daily living. We will reach out to the daughter and the son to gave them a followup. We will also make sure consultation with Pulmonary is also obtained. Rudy Puente MD
[2017-08-08] MEDS: Sucralfate 1 gm/10 ml Oral Susp UD PO SCH ×2 (09:30→18:22)
[2017-08-08] MEDS: Bisacodyl 5mg EC Tab PO SCH (09:32)
[2017-08-08] MEDS: DESVENLAFAXINE 50 MG PO SCH (09:32)
[2017-08-08] MEDS: Enoxaparin 30 mg Syringe SC SCH (09:33)
[2017-08-08] MEDS: POLYETHYLENE GLYCOL 3350 17 GM/Dose PACKET PO SCH (09:34)
[2017-08-08] MEDS: GRANIX SC SCH (10:00)
[2017-08-08] MEDS: CADEXOMER IODINE 0.9% GEL 10G TOP SCH ×2 (12:09→17:28)
--- NOTE | 2017-08-08 13:17 | CP.PCM.PN ---
Subjective - Date & Time of Evaluation Date of Evaluation: 08/08/17 Time of Evaluation: 09:30 - Subjective Subjective: PGY-2 Heme/onc progress note Patient seen and examined at bedside in TCU. No acute distress. No events overnight. Patient state sthat she is feelingover all better. She continues to participate in physical therapy. She is tolerating diet, reports good appetite. She denies chest pain, fever, chills, abd pain, n/v. Objective - Vital Signs/Intake and Output Vital Signs (last 24 hours): Temp Pulse Resp BP Pulse Ox 98.1 F 84 18 133/70 92 L 08/07/17 11:34 08/08/17 09:34 08/08/17 10:31 08/08/17 09:34 08/08/17 10:31 Intake and Output: 08/08/17 08/08/17 06:59 18:59 Intake Total 380 Balance 380 - Medications Medications: Current Medications Acetaminophen (Tylenol 325mg Tab) 650 mg PO Q4H PRN; Protocol PRN Reason: Fever >100.4 F Alprazolam (Xanax) 0.25 mg PO BID [facility] PRN Reason: Protocol Stop: 08/12/17 22:01 Last Admin: 08/07/17 17:38 Dose: 0.25 mg Amlodipine Besylate (Norvasc) 5 mg PO DAILY [facility] Last Admin: 08/08/17 09:34 Dose: 5 mg Arformoterol Tartrate (Brovana) 15 mcg IH [id number] [facility] Last Admin: 08/08/17 08:01 Dose: 15 mcg Bisacodyl (Dulcolax) 5 mg PO DAILY [facility] Last Admin: 08/08/17 09:32 Dose: 5 mg Budesonide (Pulmicort Respules) 0.25 mg IH [id number] [facility] Last Admin: 08/08/17 08:01 Dose: 0.25 mg Cadexomer Iodine (Iodosorb) 0 gm TOP BID [facility] Last Admin: 08/08/17 12:09 Dose: 10 gm Doxycycline Hyclate (Doryx) 100 mg PO Q12 [facility] PRN Reason: Protocol Stop: 08/13/17 10:01 Last Admin: 08/08/17 09:32 Dose: 100 mg Enoxaparin Sodium (Lovenox) 30 mg SC DAILY [facility] PRN Reason: Protocol Last Admin: 08/08/17 09:33 Dose: 30 mg Famotidine (Pepcid) 40 mg PO HS [facility] Last Admin: 08/07/17 21:49 Dose: 40 mg Home Med (Home Med) 2 unit PO DAILY [facility] PRN Reason: Protocol Last Admin: 08/08/17 09:32 Dose: 2 unit Home Med (Home Med) 1 unit SC DAILY [facility] Last Admin: 08/08/17 10:00 Dose: Not Given Meropenem (Merrem Iv 1 Gm Premix) 50 mls @ 100 mls/hr IVPB Q8 [facility] PRN Reason: Protocol Stop: 08/12/17 22:01 Last Admin: 08/08/17 06:09 Dose: 100 mls/hr Potassium Chloride 20 meq/ (Sodium Chloride) 1,010 mls @ 80 mls/hr IV .[id number] [facility] PRN Reason: Protocol Last Admin: 08/08/17 06:14 Dose: Not Given Insulin Human Regular (Humulin R Low) 0 units SC ACHS [facility] PRN Reason: Protocol Last Admin: 08/08/17 12:08 Dose: 2 units Loratadine (Claritin) 10 mg PO DAILY [facility] PRN Reason: nasal congestion Losartan Potassium (Cozaar) 50 mg PO DAILY [facility] Last Admin: 08/08/17 09:31 Dose: 50 mg Montelukast Sodium (Singulair) 10 mg PO HS [facility] Last Admin: 08/07/17 21:50 Dose: 10 mg Morphine Sulfate (Morphine Immediate Release Tab) 15 mg PO Q6 PRN PRN Reason: Pain, moderate (4-7) Last Admin: 08/08/17 06:09 Dose: 15 mg Morphine Sulfate (Morphine) 2 mg IVP Q4H PRN PRN Reason: Pain, severe (8-10) Morphine Sulfate (Morphine Extended Release Tab) 15 mg PO Q12 [facility] Last Admin: 08/07/17 21:52 Dose: 15 mg Nicotine (Nicoderm Cq) 1 patch TD DAILY [facility] Last Admin: 08/08/17 09:34 Dose: 1 patch Ondansetron HCl (Zofran Tab) 4 mg PO Q8H PRN PRN Reason: Nausea/Vomiting Polyethylene Glycol (Miralax) 17 gm PO DAILY [facility] Last Admin: 08/08/17 09:34 Dose: 17 gm Silver Sulfadiazine (Silvadene 1% 25 Gm) 0 gm TP DAILY [facility] Sucralfate (Carafate Oral Susp) 1 gm PO 1000,1800 [facility] Last Admin: 08/08/17 09:30 Dose: 1 gm Zolpidem Tartrate (Ambien) 5 mg PO HS PRN; Protocol PRN Reason: Insomnia - Labs Labs: 08/08/17 05:45 08/08/17 05:45 - Constitutional Appears: Well, No Acute Distress - Head Exam Head Exam: ATRAUMATIC, NORMAL INSPECTION, NORMOCEPHALIC - Eye Exam Eye Exam: EOMI, Normal appearance - ENT Exam ENT Exam: Mucous Membranes Moist - Respiratory Exam Respiratory Exam: Clear to Ausculation Bilateral, Wheezes (mild), NORMAL BREATHING PATTERN. absent: Rhonchi, Respiratory Distress - Cardiovascular Exam Cardiovascular Exam: REGULAR RHYTHM, +S1, +S2. absent: Bradycardia, Tachycardia , Diastolic murmur, Murmur - GI/Abdominal Exam GI & Abdominal Exam: Soft. 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 Plan: Urine cultures positive for klebsiell pneumoniae and proteus mirabilis started on doxycycline and meropenem blood cultures negative ID following will start aredia continue home medications Consult Dr. Eastman will continue granix 480mcg for 7 days total, today is day 5 Continue PT h/o sarcal wound daily dressing changes and iodosorb bid case reviewed and discussed with Dr. Puente
[2017-08-08] MEDS: Morphine 15 mg SR Tab PO SCH ×2 (15:34→21:30)
--- NOTE | 2017-08-08 17:33 | CP.PCM.PN ---
Subjective - Date & Time of Evaluation Date of Evaluation: 08/08/17 Time of Evaluation: 11:15 - Subjective Subjective: Resting comfortably in bed, no fevers. Objective - Vital Signs/Intake and Output Vital Signs (last 24 hours): Temp Pulse Resp BP Pulse Ox 98.1 F 95 H 18 146/79 92 L 08/07/17 11:34 08/07/17 11:34 08/07/17 11:34 08/07/17 11:34 08/07/17 11:34 Intake and Output: 08/08/17 08/08/17 06:59 18:59 Intake Total 380 Balance 380 - Medications Medications: Current Medications Acetaminophen (Tylenol 325mg Tab) 650 mg PO Q4H PRN; Protocol PRN Reason: Fever >100.4 F Alprazolam (Xanax) 0.25 mg PO BID [facility] PRN Reason: Protocol Stop: 08/12/17 22:01 Last Admin: 08/07/17 17:38 Dose: 0.25 mg Amlodipine Besylate (Norvasc) 5 mg PO DAILY [facility] Last Admin: 08/07/17 10:04 Dose: 5 mg Arformoterol Tartrate (Brovana) 15 mcg IH [id number] [facility] Last Admin: 08/08/17 08:01 Dose: 15 mcg Bisacodyl (Dulcolax) 5 mg PO DAILY [facility] Last Admin: 08/07/17 10:02 Dose: 5 mg Budesonide (Pulmicort Respules) 0.25 mg IH [id number] [facility] Last Admin: 08/08/17 08:01 Dose: 0.25 mg Cadexomer Iodine (Iodosorb) 0 gm TOP BID [facility] Last Admin: 08/07/17 17:40 Dose: 10 gm Doxycycline Hyclate (Doryx) 100 mg PO Q12 [facility] PRN Reason: Protocol Stop: 08/13/17 10:01 Last Admin: 08/07/17 21:48 Dose: 100 mg Enoxaparin Sodium (Lovenox) 30 mg SC DAILY [facility] PRN Reason: Protocol Last Admin: 08/07/17 10:04 Dose: 30 mg Famotidine (Pepcid) 40 mg PO HS [facility] Last Admin: 08/07/17 21:49 Dose: 40 mg Home Med (Home Med) 2 unit PO DAILY [facility] PRN Reason: Protocol Last Admin: 08/07/17 10:03 Dose: 2 unit Home Med (Home Med) 1 unit SC DAILY [facility] Last Admin: 08/07/17 10:53 Dose: 1 unit Meropenem (Merrem Iv 1 Gm Premix) 50 mls @ 100 mls/hr IVPB Q8 [facility] PRN Reason: Protocol Stop: 08/12/17 22:01 Last Admin: 08/08/17 06:09 Dose: 100 mls/hr Potassium Chloride 20 meq/ (Sodium Chloride) 1,010 mls @ 80 mls/hr IV .[id number] [facility] PRN Reason: Protocol Last Admin: 08/08/17 06:14 Dose: Not Given Insulin Human Regular (Humulin R Low) 0 units SC ACHS [facility] PRN Reason: Protocol Last Admin: 08/08/17 06:35 Dose: 2 units Loratadine (Claritin) 10 mg PO DAILY PRN PRN Reason: nasal congestion Losartan Potassium (Cozaar) 50 mg PO DAILY [facility] Last Admin: 08/07/17 10:04 Dose: 50 mg Montelukast Sodium (Singulair) 10 mg PO HS [facility] Last Admin: 08/07/17 21:50 Dose: 10 mg Morphine Sulfate (Morphine Immediate Release Tab) 15 mg PO Q6 PRN PRN Reason: Pain, moderate (4-7) Last Admin: 08/08/17 06:09 Dose: 15 mg Morphine Sulfate (Morphine) 2 mg IVP Q4H PRN PRN Reason: Pain, severe (8-10) Morphine Sulfate (Morphine Extended Release Tab) 15 mg PO Q12 [facility] Last Admin: 08/07/17 21:52 Dose: 15 mg Nicotine (Nicoderm Cq) 1 patch TD DAILY [facility] Last Admin: 08/07/17 10:00 Dose: 1 patch Ondansetron HCl (Zofran Tab) 4 mg PO Q8H PRN PRN Reason: Nausea/Vomiting Polyethylene Glycol (Miralax) 17 gm PO DAILY [facility] Last Admin: 08/07/17 10:04 Dose: 17 gm Silver Sulfadiazine (Silvadene 1% 25 Gm) 0 gm TP DAILY [facility] Sucralfate (Carafate Oral Susp) 1 gm PO 1000,1800 [facility] Last Admin: 08/07/17 17:40 Dose: 1 gm Zolpidem Tartrate (Ambien) 5 mg PO HS PRN; Protocol PRN Reason: Insomnia - Labs Labs: 08/08/17 05:45 08/08/17 05:45 - Constitutional Appears: Chronically Ill - Head Exam Head Exam: NORMAL INSPECTION - Respiratory Exam Respiratory Exam: Decreased Breath Sounds - Cardiovascular Exam Cardiovascular Exam: +S1, +S2 - GI/Abdominal Exam GI & Abdominal Exam: Soft. absent: Tenderness Assessment and Plan - Assessment and Plan (Free Text) Plan: Assessment sepsis due to right middle lobe HCAP on top of ESBL Klebsiella and Proteus UTI stage 3 decubitus ulcer S/P sepsis due to HCAP S/P neutropenia history of Systemic viral illness with Influenza and acute bronchitis stage 4 lung cancer VRE in the urine, asymptomatic DM HTN depression lower back tumor obesity with BMI 30 Plan continue Doxycycline and Merrem day 3 to complete 4-7 days of therapy overall prognosis is poor
[2017-08-08 23:33] LABS: URINE BILIRUBIN NEGATIVE (NEGATIVE); URINE BLOOD NEGATIVE (NEGATIVE); URINE GLUCOSE (UA) >=1000 mg/dL (NEGATIVE); URINE LEUKOCYTE ESTERASE NEGATIVE Leu/uL (NEGATIVE); URINE PROTEIN NEGATIVE mg/dL (<30 mg/dL); URINE UROBILINOGEN 0.2 E.U./dL (<1 E.U./dL)
[2017-08-08 23:35] LABS: URINE APPEARANCE CLEAR (CLEAR); URINE COLOR YELLOW (YELLOW)
--- NOTE | 2017-08-09 01:05 | PN ---
DATE: 08/08/2017 PULMONARY PROGRESS NOTE REFERRING PHYSICIAN: Dr. Puente. SUBJECTIVE: She is lying in the bed, head at 45 degrees. Doing well in therapy. No headache. No rhinitis. No nausea. No vomiting or diarrhea. No leg pain or leg swelling. OBJECTIVE: GENERAL: In no acute distress. VITAL SIGNS: Temp is 98, heart rate is 89, respiratory rate is 20, blood pressure 138/67, pulse ox 94% on room air. HEENT: Moist mucous membrane. Crowded airway. NECK: Supple. No JVD. LUNGS: Have a fair airflow with rhonchi. HEART: S1 and S2. ABDOMEN: Soft, nontender. No organomegaly. EXTREMITIES: No edema. NEUROLOGIC: Awake, alert. Follows simple command. MEDICATIONS: She is on Ambien 5 mg at bedtime p.r.n., Brovana inhaled twice a day, Carafate 1 g twice a day, Claritin 10 mg daily, Cozaar 50 mg daily, doxycycline 100 mg twice a day, Dulcolax 5 mg at bedtime, insulin coverage, Lovenox 30 mg daily, meropenem 1 g IV every 8 hours, MiraLax 17 g daily, morphine 2 mg every 4 hours p.r.n. and also morphine extended release 50 mg twice a day, Nicoderm patch daily, Norvasc 5 mg daily, Pepcid 40 mg at bedtime, Pulmicort inhaled twice a day, Singulair 10 mg daily, Tylenol p.r.n., Xanax 0.25 mg twice a day and Zofran p.r.n. basis. LABORATORY DATA: Shows sodium 135, potassium 4.3, chloride 98, bicarbonate 26, BUN 10, creatinine 0.4, glucose 217, calcium 8.9. AST 61, ALT 47, alk phos is 280. Albumin is 3.8. IMPRESSION AND PLAN: Small cell lung cancer, which is extensive disease involving the spine and liver, also has retroperitoneal lymphadenopathy, right lung infiltrate, chronic obstructive lung disease, diabetes, hypertension and urinary tract infection. Pulmonary point of view, doing well. Continue bronchodilator. Keep head at 45 degrees. Gastric prophylaxis, deep venous thrombosis prophylaxis. Continue therapy. Fall precaution. Thank you and we will follow with you. <Robert Eastman MD> DD: <08/08/2017> <22:20:54> DT: <08/08/2017> <23:09:05> Job # <[id number]>
[2017-08-09] MEDS: Meropenem IV 1 gm in NS 50 ML IVPB SCH ×4 (05:19→21:58)
[2017-08-09] MEDS: Arformoterol 15 mcg/2 ml Inh Sol IH SCH ×2 (07:10→19:33)
[2017-08-09] MEDS: Budesonide 0.25 mg/2 ml Inhal Susp UD IH SCH ×2 (07:10→19:33)
[2017-08-09] MEDS: Insulin Reg-LOW-Coverage SC SCH ×4 (07:27→21:57)
--- NOTE | 2017-08-09 09:23 | PN ---
DATE: 08/08/2017 PULMONARY PROGRESS NOTE REFERRING PHYSICIAN: Dr. Adrian. SUBJECTIVE: She is out of bed to chair. Feels much better, able to ambulate, participating in therapy, still noncompliant with the CPAP. No headache. No rhinitis. No nausea. No vomiting. No diarrhea. Still has back pain and knee pain. OBJECTIVE: GENERAL: In no acute distress. VITAL SIGNS: Temperature is 98, heart rate is 89, respiratory rate is 20, blood pressure 138/67, pulse ox 94% on room air. HEENT: Moist mucous membranes. Crowded airway. Mallampati score is IV. NECK: Short, thick neck. LUNGS: Have a fair airflow with rhonchi. HEART: S1 and S2. ABDOMEN: Soft, nontender. No organomegaly. EXTREMITIES: There is no edema. NEUROLOGIC: Awake and alert. Follows simple command. MEDICATIONS: She is on Ambien 5 mg at bedtime p.r.n., Brovana inhaled twice a day, Carafate 1 g twice a day, Claritin 10 mg daily p.r.n., Cozaar 50 mg daily, doxycycline 100 mg twice a day, Dulcolax daily, insulin coverage, Lovenox 30 mg daily, meropenem 1 g IV every 8 hours, MiraLax 17 g daily, morphine 2 mg IV every 4 hours p.r.n., morphine extended release 15 mg every 12 hours, morphine immediate release 15 mg every 6 hours p.r.n., Nicoderm patch daily, Norvasc 5 mg daily, Pepcid 40 mg at bedtime, Pulmicort inhaled twice a day, Singulair 10 mg daily, Tylenol p.r.n., Xanax 0.25 mg twice a day, Zofran on p.r.n. basis. LABORATORY DATA: Shows hemoglobin 9.8, hematocrit 30.3, WBC 4.7, platelet is 145. Sodium 135, potassium 4.3, chloride 98, bicarbonate 26, BUN 10, creatinine 0.4, glucose 217, calcium 8.9. AST 61, ALT 47, alkaline phosphatase is 280, albumin is 3.8. Robert Eastman MD
[2017-08-09] MEDS: Bisacodyl 5mg EC Tab PO SCH (09:49)
[2017-08-09] MEDS: Sucralfate 1 gm/10 ml Oral Susp UD PO SCH ×2 (09:49→17:10)
[2017-08-09] MEDS: DESVENLAFAXINE 50 MG PO SCH (09:49)
[2017-08-09] MEDS: Morphine 15 mg SR Tab PO SCH ×2 (09:50→21:58)
[2017-08-09] MEDS: Enoxaparin 30 mg Syringe SC SCH (09:50)
[2017-08-09] MEDS: CADEXOMER IODINE 0.9% GEL 10G TOP SCH ×2 (09:50→17:10)
[2017-08-09] MEDS: POLYETHYLENE GLYCOL 3350 17 GM/Dose PACKET PO SCH (09:50)
[2017-08-09] MEDS: GRANIX SC SCH (10:01)
[2017-08-09] MEDS ORDERED: Morphine 4 mg/ml ISec IVP PRN (11:34)
[2017-08-09] MEDS: Morphine 15 mg Immediate Release Tab PO PRN (14:46)
--- NOTE | 2017-08-10 00:03 | PN ---
DATE: 08/09/2017 LOCATION: The patient is seen in room 316. SUBJECTIVE: No fevers and no chill. PHYSICAL EXAMINATION: VITAL SIGNS: On exam, temperature is 97, blood pressure is 130/70, respiratory rate of 18. HEENT: Examination of HEENT is unremarkable. NECK: Supple. LUNGS: Have decreased breath sounds. HEART: Normal S1 and S2. ABDOMEN: Soft, nontender. LABORATORY DATA: Laboratory examination reveals a white count of 4.7, hemoglobin of 9, platelets of 145. Chemistries reveals BUN of 10, creatinine of 0.4, alk phos is 280. Urinalysis is noted. Microbiology is reviewed. ASSESSMENT AND PLAN: A 72-year-old female who was seen early this morning in room 316 with sepsis and there is a right middle lobe healthcare-associated pneumonia on top of extended-spectrum beta-lactamase, Klebsiella and Proteus urinary tract infection, stage III decubitus ulcer and a history of healthcare-associated pneumonia and neutropenia and viral illness with influenza and acute bronchitis and stage IV lung cancer and hypertension, diabetic, depression and obesity. On doxycycline, meropenem, today is day #4. We will complete 4-7 days of therapy. We will follow with you. Jorge Luis Hernandez MD
--- NOTE | 2017-08-10 05:08 | PN ---
DATE: 08/10/2017 ONCOLOGY PROGRESS NOTE LOCATION: The patient is in room 316, bed 1. SUBJECTIVE: The patient is seen lying in bed, head at 45 degrees. The patient has been doing well in therapy. Today, she did most of her exercises in bed, trying to strengthen the core muscles and more importantly the muscles in and around her buttocks and her thigh as she has tough time getting out of the bed, more importantly out of the chair, in order for her to stand up. Once she is up, she is able to get around with help, with the therapist and using a walker. The patient has no nausea. No vomiting. Appetite is improved. Coughing is almost negligent. No fevers. No night sweats. No leg pain. No leg swelling. Back pain appears to be minimal at this time. Pain score is at least 2. PHYSICAL EXAMINATION: GENERAL: The patient is in no acute distress. VITAL SIGNS: Stable. T-max is 98.4, heart rate is 89, respirations 20, blood pressure 138/67, pulse ox is 94% on room air. HEENT: Head is normocephalic, atraumatic. Conjunctivae pale. Sclerae are anicteric. Pupils are equally reactive to light and accommodation. Examination of the oropharynx reveals no oropharyngeal lesion. The patient is edentulous. NECK: Supple. There is no adenopathy. No jugular venous distention noted. LUNGS: Relatively clear with scattered rhonchi. HEART: Reveals PMI to be in the fifth intercostal space, inside the midclavicular line. S1 and S2 are normal. No gallop or murmur is heard. ABDOMEN: Soft, nontender. Liver and spleen are not palpable. EXTREMITIES: Reveals no cyanosis, clubbing or edema. NEUROLOGIC: Reveals higher functions to be normal. No focal deficits are noted. SKIN: Turgor is normal. No skin lesions are noted. The patient has a sacral decubitus, which appears to be slowly healing. The ulcer appears to be clean with the edges are flat. The patient has been using Tegasorb with sterile dressing on it. The patient is not getting anything topically over the sacral wound. LABORATORY DATA: Reveals a sodium of 135, K of 4.3, chloride 92, bicarbonate 28, BUN of 10, creatinine 0.4, glucose is 217, calcium is 8.9, AST 61, ALT is 46, alkaline phosphatase is 280, albumin is 3.8. MEDICATIONS: Include Ambien 5 mg at bedtime, Brovana inhaled twice a day, Carafate 1 g twice a day, Claritin 10 mg daily, Cozaar 50 mg daily, doxycycline 100 mg twice a day, Dulcolax 5 mg at bedtime, insulin coverage as needed, Lovenox 30 mg subcu daily, meropenem 1 g IV every 8 hours, MiraLax 17 g daily, morphine sulfate 2 mg IV every 4 hours p.r.n., morphine sulfate extended release 15 mg every 12 hours, morphine sulfate immediate release 15 mg every 4 hours p.r.n. The patient is on Pepcid 40 mg at bedtime, Nicoderm patch 21 mg daily, Norvasc 5 mg daily, Pulmicort inhaled twice a day, Singulair 10 mg daily, Tylenol p.r.n., Xanax 0.25 mg twice a day, Zofran p.r.n. The patient takes her own antidepressant that she gets from home, called Pristiq. 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 Currently, has a right middle lobe infiltrate on the CAT scan of the chest and right pleural effusion. The patient has chronic obstructive lung disease, diabetes, hypertension, urinary tract infection for which she is on antibiotics. Plan, the patient will continue physical therapy for deconditioning. Continue oral supplementation with Ensure to help her gain protein. We will add topical treatment for the sacral wound with Bactroban along with the Tegasorb dressing. The patient will continue with bronchodilators. Keep the head end of the bed at 45 degrees. DVT prophylaxis. Time spent with the patient is greater than 50 minutes, trying to correlate all the information, discussing with the patient what needs to be done over the next several days. Goal is to make the patient self-sufficient at least from the point of walking, so that she will be able to get around inside her house and come back and forth of outpatient treatment. The patient received Aredia today without any overt complications. Next dose of Aredia will be due in about 28 days. Routine post exam instructions have been given to the patient. Rudy Puente MD [facility] # [id number]
[2017-08-10] MEDS: Meropenem IV 1 gm in NS 50 ML IVPB SCH ×3 (05:09→21:40)
--- NOTE | 2017-08-10 05:23 | PN ---
DATE: PULMONARY PROGRESS NOTE: REFERRING PHYSICIAN: Dr. Puente. SUBJECTIVE: The patient is lying in the bed, head at 45 degrees, daughter is at bedside. Night was unremarkable. Doing well in therapy. Breathing is better. No cough. No sputum production. No nausea, no vomiting, no diarrhea. No leg pain or leg swelling. OBJECTIVE: GENERAL: In no acute distress. VITAL SIGNS: Temp is 98, heart rate is 102, respiratory rate is 20, blood pressure 131/75, pulse ox 94% on room air. HEENT: Moist mucous membrane. No ulcer or thrush noted. NECK: Supple. No JVD. LUNGS: Have a fair airflow with rhonchi. HEART: S1 and S2. ABDOMEN: Soft, nontender. No organomegaly. EXTREMITIES: No edema. NEUROLOGIC: Awake and alert. Follows simple command. MEDICATIONS: She is on Ambien 5 mg at bedtime p.r.n., Brovana inhaled twice a day, Carafate 1 g twice a day, Claritin 10 mg daily, Cozaar 50 mg daily, doxycycline 100 mg twice a day, Dulcolax 5 mg daily, insulin coverage, Lovenox 30 mg subcu daily, meropenem 1 g IV every 8 hours, MiraLax 17 g daily, morphine 2 g every 4 hours p.r.n., morphine extended release 15 mg twice a day, morphine immediate release 15 mg every 6 hours p.r.n., NicoDerm patch daily, Norvasc 5 mg daily, Pepcid 40 mg daily, IV fluid with potassium, Pulmicort inhaled twice a day, Singulair 10 mg daily, Tylenol p.r.n. basis, Xanax 0.25 mg twice a day and Zofran p.r.n. basis. LABORATORY DATA: Reviewed shows blood sugar this morning 266. IMPRESSION AND PLAN: Small cell lung cancer with extensive disease involving the spleen, liver, also has retroperitoneal lymphadenopathy, pulmonary infiltrates, chronic obstructive lung disease, diabetes, hypertension, urinary tract infection. Pulmonary point of view, doing well. Continue bronchodilator. Keep head at 45 degrees. Gastric prophylaxis. Deep venous thrombosis prophylaxis. Oncology followup. Spoke to the patient's daughter at bedside. All the questions answered. Thank you and we will follow with you. Robert Eastman MD
[2017-08-10] MEDS: Insulin Reg-LOW-Coverage SC SCH ×4 (06:53→22:38)
[2017-08-10] MEDS: Arformoterol 15 mcg/2 ml Inh Sol IH SCH ×2 (07:41→19:33)
[2017-08-10] MEDS: Budesonide 0.25 mg/2 ml Inhal Susp UD IH SCH ×2 (07:41→19:33)
[2017-08-10] MEDS: Morphine 15 mg SR Tab PO SCH ×2 (09:56→21:41)
[2017-08-10] MEDS: DESVENLAFAXINE 50 MG PO SCH (09:57)
[2017-08-10] MEDS: Bisacodyl 5mg EC Tab PO SCH (09:57)
[2017-08-10] MEDS: Sucralfate 1 gm/10 ml Oral Susp UD PO SCH ×2 (09:59→17:23)
[2017-08-10] MEDS: CADEXOMER IODINE 0.9% GEL 10G TOP SCH ×2 (10:01→17:23)
[2017-08-10] MEDS: POLYETHYLENE GLYCOL 3350 17 GM/Dose PACKET PO SCH (10:02)
[2017-08-10] MEDS: Enoxaparin 30 mg Syringe SC SCH (10:02)
[2017-08-10] MEDS: GRANIX SC SCH (12:15)
[2017-08-10] MEDS: Morphine 15 mg Immediate Release Tab PO PRN (12:28)
--- NOTE | 2017-08-10 14:36 | PN ---
DATE: 08/10/2017 PULMONARY PROGRESS NOTE REFERRING PHYSICIAN: Rudy Puente MD. SUBJECTIVE: The patient is sitting up in a chair. Night was unremarkable. Doing well in therapy. No headache. No rhinitis. No nausea. No vomiting, diarrhea, leg pain, leg swelling. Complaining about frequent urination. Getting IV fluid. OBJECTIVE: GENERAL: In no acute distress. VITAL SIGNS: Temperature is 98, heart rate is 102, respiratory rate is 20, blood pressure 131/75, pulse ox 94% on room air. HEENT: Moist mucous membrane. Crowded airway. NECK: Supple. No JVD. LUNGS: Have a fair airflow with rhonchi. HEART: S1 and S2. ABDOMEN: Soft, nontender. No organomegaly. EXTREMITIES: No edema. NEUROLOGIC: Awake, alert, follows simple command. MEDICATIONS: She is on Ambien 5 mg at bedtime p.r.n., Brovana inhaled twice a day, Carafate 1 g twice a day, Claritin 10 mg daily, Cozaar 50 mg daily, doxycycline 100 mg twice a day, Dulcolax p.r.n. basis, Lovenox 30 mg subcu daily, meropenem 1 g IV every 8 hours, MiraLax 17 g daily, morphine 2 mg IV every 4 hours p.r.n., morphine extended release 15 mg every 12 hours, morphine immediate release 15 mg every 6 hours p.r.n., Nicoderm patch daily, Norvasc 5 mg daily, Pepcid 40 mg daily, IV fluid with potassium 80 mL/hour, Pulmicort inhaled twice a day, Singulair 10 mg daily, Tylenol p.r.n., Xanax twice a day, Zofran p.r.n. basis. LABORATORY DATA: reviewed, noted blood sugar this morning 298. IMPRESSION AND PLAN: Small cell lung cancer with extensive disease, metastasis to the liver and spine; retroperitoneal lymphadenopathy; pulmonary infiltrate; chronic obstructive lung disease; diabetes; hypertension; urinary tract infection. Pulmonary point of view, she is doing well. Continue bronchodilator. Keep head at 45 degrees. Sleep apnea precaution. Avoid nocturnal sedation. May discontinue IV fluid. Antibiotics as per Infectious Diseases. Thank you and we will follow with you. Robert Eastman MD [facility] # [id number]
--- NOTE | 2017-08-10 15:15 | CP.PCM.PN ---
Subjective - Date & Time of Evaluation Date of Evaluation: 08/10/17 Time of Evaluation: 09:30 - Subjective Subjective: PGY-2 Heme/onc progress note Patient seen and examined at bedside in TCU. No acute distress. No events overnight. Patient states that she is feeling better and stronger. She continues to participate in physical therapy and states that she is able to walk [place] and [place]. She is tolerating diet, reports good appetite. She denies chest pain, fever, chills, abd pain, n/v. Objective - Vital Signs/Intake and Output Vital Signs (last 24 hours): Temp Pulse Resp BP Pulse Ox 97.8 F 102 H 20 131/75 94 L 08/09/17 17:03 08/09/17 17:03 08/09/17 17:03 08/09/17 17:03 08/09/17 17:03 - Medications Medications: Current Medications Acetaminophen (Tylenol 325mg Tab) 650 mg PO Q4H PRN; Protocol PRN Reason: Fever >100.4 F Alprazolam (Xanax) 0.25 mg PO BID [facility] PRN Reason: Protocol Stop: 08/12/17 22:01 Last Admin: 08/10/17 09:56 Dose: 0.25 mg Amlodipine Besylate (Norvasc) 5 mg PO DAILY [facility] Last Admin: 08/10/17 11:00 Dose: 5 mg Arformoterol Tartrate (Brovana) 15 mcg IH [id number] [facility] Last Admin: 08/10/17 07:41 Dose: 15 mcg Bisacodyl (Dulcolax) 5 mg PO DAILY [facility] Last Admin: 08/10/17 09:57 Dose: 5 mg Budesonide (Pulmicort Respules) 0.25 mg IH [id number] [facility] Last Admin: 08/10/17 07:41 Dose: 0.25 mg Cadexomer Iodine (Iodosorb) 0 gm TOP BID [facility] Last Admin: 08/10/17 10:01 Dose: 10 gm Doxycycline Hyclate (Doryx) 100 mg PO Q12 [facility] PRN Reason: Protocol Stop: 08/13/17 10:01 Last Admin: 08/10/17 09:57 Dose: 100 mg Enoxaparin Sodium (Lovenox) 30 mg SC DAILY [facility] PRN Reason: Protocol Last Admin: 08/10/17 10:02 Dose: 30 mg Famotidine (Pepcid) 40 mg PO HS [facility] Last Admin: 08/09/17 22:01 Dose: 40 mg Home Med (Home Med) 2 unit PO DAILY [facility] PRN Reason: Protocol Last Admin: 08/10/17 09:57 Dose: 2 unit Home Med (Home Med) 1 unit SC DAILY [facility] Last Admin: 08/10/17 12:15 Dose: 1 unit Meropenem (Merrem Iv 1 Gm Premix) 50 mls @ 100 mls/hr IVPB Q8 KIMMY PRN Reason: Protocol Stop: 08/12/17 22:01 Last Admin: 08/10/17 14:52 Dose: 100 mls/hr Insulin Human Regular (Humulin R Low) 0 units SC ACHS [facility] PRN Reason: Protocol Last Admin: 08/10/17 12:30 Dose: 3 units Loratadine (Claritin) 10 mg PO DAILY PRN PRN Reason: nasal congestion Losartan Potassium (Cozaar) 50 mg PO DAILY [facility] Last Admin: 08/10/17 09:57 Dose: 50 mg Montelukast Sodium (Singulair) 10 mg PO HS [facility] Last Admin: 08/09/17 22:01 Dose: 10 mg Morphine Sulfate (Morphine Immediate Release Tab) 15 mg PO Q6 PRN PRN Reason: Pain, moderate (4-7) Last Admin: 08/10/17 12:28 Dose: 15 mg Morphine Sulfate (Morphine Extended Release Tab) 15 mg PO Q12 [facility] Last Admin: 08/10/17 09:56 Dose: 15 mg Morphine Sulfate (Morphine) 2 mg IVP Q4H PRN PRN Reason: Pain, severe (8-10) Nicotine (Nicoderm Cq) 1 patch TD DAILY [facility] Last Admin: 08/10/17 09:56 Dose: 1 patch Ondansetron HCl (Zofran Tab) 4 mg PO Q8H PRN PRN Reason: Nausea/Vomiting Polyethylene Glycol (Miralax) 17 gm PO DAILY [facility] Last Admin: 08/10/17 10:02 Dose: 17 gm Silver Sulfadiazine (Silvadene 1% 25 Gm) 0 gm TP DAILY [facility] Sucralfate (Carafate Oral Susp) 1 gm PO 1000,1800 [facility] Last Admin: 08/10/17 09:59 Dose: 1 gm Zolpidem Tartrate (Ambien) 5 mg PO HS PRN; Protocol PRN Reason: Insomnia - Labs Labs: 08/08/17 05:45 08/08/17 05:45 - Constitutional Appears: No Acute Distress - Head Exam Head Exam: ATRAUMATIC, NORMOCEPHALIC - Eye Exam Eye Exam: EOMI, Normal appearance - ENT Exam ENT Exam: Mucous Membranes Moist - Respiratory Exam Respiratory Exam: Clear to Ausculation Bilateral, NORMAL BREATHING PATTERN. absent: Rhonchi, Wheezes, Respiratory Distress - Cardiovascular Exam Cardiovascular Exam: REGULAR RHYTHM, +S1, +S2. absent: Bradycardia, Tachycardia , Murmur - GI/Abdominal Exam GI & Abdominal Exam: Soft, Normal Bowel Sounds. 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 Plan: Urine cultures positive for klebsiella pneumoniae and proteus mirabilis continue on doxycycline and meropenem day 5, will continue for 4-7 days blood cultures negative ID following continue ensure patient recieved aredia yesterday, next dose about 1 month h/o sarcal wound daily dressing changes and iodosorb bid will continue granix 480mcg for 7 days total continue home medications Consult Dr. Jaren Quinones PT case reviewed and discussed with Dr. Puente
--- NOTE | 2017-08-11 02:53 | PN ---
DATE: 08/10/2017 SUBJECTIVE: The patient is in bed, in no acute distress, nontoxic. PHYSICAL EXAMINATION: VITAL SIGNS: Temperature is 97, blood pressure is 131/60, respiratory rate of 20. HEENT: Unremarkable. NECK: Supple. LUNGS: Have decreased breath sounds. HEART: Normal S1 and S2. ABDOMEN: Soft, nontender. LABORATORY EXAMINATION: Reveals a white count of 4.7, hemoglobin of 9, platelets of 145. Chemistries are noted and the patient's creatinine 0.4. Urinalysis is noted. Microbiology is reviewed. ASSESSMENT AND PLAN: A 72-year-old female who was seen earlier this morning in room 316 with sepsis and right middle lobe healthcare-associated pneumonia on top of an extended-spectrum beta-lactamases Klebsiella and Proteus urinary tract infection and stage III decubitus ulcer and a history of healthcare-associated pneumonia, neutropenia and viral illness with influenza and acute bronchitis, stage IV lung cancer, hypertension, diabetic, depression and obesity, on doxycycline and meropenem, today is day #5, would complete 4-7 days of antibiotics. Review of orders reveals the patient to be on p.o. doxycycline and meropenem day #5 of 4-7 days. Jorge Luis Hernandez MD
[2017-08-11] MEDS: Meropenem IV 1 gm in NS 50 ML IVPB SCH ×3 (05:16→22:19)
[2017-08-11] MEDS: Insulin Reg-LOW-Coverage SC SCH ×4 (06:56→22:24)
[2017-08-11] MEDS: Arformoterol 15 mcg/2 ml Inh Sol IH SCH ×2 (07:14→20:24)
[2017-08-11] MEDS: Budesonide 0.25 mg/2 ml Inhal Susp UD IH SCH ×2 (07:15→20:24)
[2017-08-11 07:22] LABS: BASO # 0.01 K/mm3 (0.0-2.0); BASO % 0.3 % (0.0-3.0); GRAN # 2.04 (1.4-6.5); GRAN % 58.6 % (50.0-68.0); HEMOGLOBIN 8.2 g/dL (12.0-16.0); LYMPH % 27.3 % (22.0-35.0); MEAN CELL VOLUME 94.4 fl (80.0-105.0); MEAN CORPUSCULAR HEMOGLOBIN 30.5 pg (25.0-35.0); MEAN CORPUSCULAR HGB CONC 32.3 g/dl (31.0-37.0); MEAN PLATELET VOLUME 10.4 fl (7.0-11.0); MONO # 0.5 (0.1-0.6); MONO % 13.8 % (1.0-6.0); RBC 2.69 10^6/uL (3.5-6.1); RED CELL DISTRIBUTION WIDTH 19.4 % (11.5-14.5); WHITE BLOOD COUNT 3.5 10^3/ul (4.5-11.0)
[2017-08-11 08:03] LABS: ALB/GLOB RATIO 1.3 (1.1-1.8); ALBUMIN 3.4 g/dL (3.0-4.8); ALT/SGPT 58 U/L (7-56); AST/SGOT 35 U/L (14-36); BLOOD UREA NITROGEN 9 mg/dL (7-21); CALCIUM 8.2 mg/dL (8.4-10.5); GFR AFRICAN-AMERICAN > 60; GFR NON-AFRICAN AMERICAN > 60; HDL CHOLESTEROL 38 mg/dL (29-60)
[2017-08-11 08:05] LABS: LDL CHOLESTEROL 108 mg/dL (0-129)
--- NOTE | 2017-08-11 09:11 | CP.PCM.PN ---
Subjective - Date & Time of Evaluation Date of Evaluation: 08/11/17 Time of Evaluation: 07:30 - Subjective Subjective: PGY-2 Heme/onc progress note for Dr. Puente's service Patient seen and examined at bedside in TCU. No acute distress. No events overnight. Patient states that she is feeling better and stronger. She continues to participate in physical therapy and states that [place] able [place], however she states that she would like more days of PT. She is tolerating diet, reports good appetite. She denies chest pain, fever , chills, abd pain, n/v. Objective - Vital Signs/Intake and Output Vital Signs (last 24 hours): Temp Pulse Resp BP Pulse Ox 98 F 86 20 113/62 98 08/10/17 17:49 08/10/17 17:49 08/10/17 17:49 08/10/17 17:49 08/10/17 17:49 Intake and Output: 08/11/17 08/11/17 06:59 18:59 Intake Total 380 Balance 380 - Medications Medications: Current Medications Acetaminophen (Tylenol 325mg Tab) 650 mg PO Q4H PRN; Protocol PRN Reason: Fever >100.4 F Alprazolam (Xanax) 0.[address] [facility] PRN Reason: Protocol Stop: 08/12/17 22:01 Last Admin: 08/10/17 17:30 Dose: 0.25 mg Amlodipine Besylate (Norvasc) [address] [facility] Last Admin: 08/10/17 11:00 Dose: 5 mg Arformoterol Tartrate (Brovana) [id number] [facility] Last Admin: 08/11/17 07:14 Dose: 15 mcg Bisacodyl (Dulcolax) [address] [facility] Last Admin: 08/10/17 09:57 Dose: 5 mg Budesonide (Pulmicort Respules) 0.[id number] [facility] Last Admin: 08/11/17 07:15 Dose: 0.25 mg Cadexomer Iodine (Iodosorb) [address] [facility] Last Admin: 08/10/17 17:23 Dose: 10 gm Doxycycline Hyclate (Doryx) 100 mg PO Q12 [facility] PRN Reason: Protocol Stop: 08/13/17 10:01 Last Admin: 08/10/17 21:41 Dose: 100 mg Enoxaparin Sodium (Lovenox) [address] [facility] PRN Reason: Protocol Last Admin: 08/10/17 10:02 Dose: 30 mg Famotidine (Pepcid) [address] [facility] Last Admin: 08/10/17 21:42 Dose: 40 mg Glimepiride (Amaryl) [address] [facility] Last Admin: 08/11/17 08:28 Dose: 4 mg Home Med (Home Med) [address] [facility] PRN Reason: Protocol Last Admin: 08/10/17 09:57 Dose: 2 unit Home Med (Home Med) [address] [facility] Last Admin: 08/10/17 12:15 Dose: 1 unit Meropenem (Merrem Iv 1 Gm Premix) 50 mls @ 100 mls/hr IVPB Q8 [facility] PRN Reason: Protocol Stop: 08/12/17 22:01 Last Admin: 08/11/17 05:16 Dose: 100 mls/hr Insulin Human Regular (Humulin R Low) [address] [facility] PRN Reason: Protocol Last Admin: 08/11/17 06:56 Dose: Not Given Loratadine (Claritin) 10 mg PO DAILY PRN PRN Reason: nasal congestion Losartan Potassium (Cozaar) [address] [facility] Last Admin: 08/10/17 09:57 Dose: 50 mg Montelukast Sodium (Singulair) [address] [facility] Last Admin: 08/10/17 21:42 Dose: 10 mg Morphine Sulfate (Morphine Immediate Release Tab) 15 mg PO Q6 PRN PRN Reason: Pain, moderate (4-7) Last Admin: 08/10/17 12:28 Dose: 15 mg Morphine Sulfate (Morphine Extended Release Tab) [address] [facility] Last Admin: 08/10/17 21:41 Dose: 15 mg Morphine Sulfate (Morphine) 2 mg IVP Q4H PRN PRN Reason: Pain, severe (8-10) Last Admin: 08/10/17 15:54 Dose: 2 mg Nicotine (Nicoderm Cq) [address] [facility] Last Admin: 08/10/17 09:56 Dose: 1 patch Ondansetron HCl (Zofran Tab) 4 mg PO Q8H PRN PRN Reason: Nausea/Vomiting Polyethylene Glycol (Miralax) [address] [facility] Last Admin: 08/10/17 10:02 Dose: 17 gm Silver Sulfadiazine (Silvadene 1% 25 Gm) [address] [facility] Sucralfate (Carafate Oral Susp) 1 gm PO 1000,1800 [facility] Last Admin: 08/10/17 17:23 Dose: 1 gm Zolpidem Tartrate (Ambien) 5 mg PO HS PRN; Protocol PRN Reason: Insomnia - Labs Labs: 08/11/17 07:00 08/11/17 07:00 - Constitutional Appears: Well, No Acute Distress - Head Exam Head Exam: ATRAUMATIC, NORMAL INSPECTION, NORMOCEPHALIC - Eye Exam Eye Exam: EOMI, Normal appearance - ENT Exam ENT Exam: Mucous Membranes Moist - Respiratory Exam Respiratory Exam: Clear to Ausculation Bilateral, NORMAL BREATHING PATTERN. absent: Decreased Breath Sounds, Rales, Rhonchi, Wheezes, Respiratory Distress - Cardiovascular Exam Cardiovascular Exam: REGULAR RHYTHM, +S1, +S2. absent: Tachycardia, Murmur - GI/Abdominal Exam GI & Abdominal Exam: Soft, Normal Bowel Sounds. absent: Distended, Firm, Guarding, Tenderness - Extremities Exam Extremities Exam: Normal Inspection. 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 Plan: Urine cultures positive for klebsiella pneumoniae and proteus mirabilis continue on doxycycline and meropenem day 6, will continue for 4-7 days blood cultures negative ID following continue ensure patient received aredia yesterday, next dose about 1 month h/o sacral wound daily dressing changes and iodosorb bid patient's wbc, hgb and platelet count is dropping will order manual platelet count will continue granix 480mcg for and additional 3 days continue home medications Consult Dr. Jaren Quinones PT case reviewed and discussed with Dr. Puente
[2017-08-11] MEDS: Sucralfate 1 gm/10 ml Oral Susp UD PO SCH ×2 (10:04→17:45)
[2017-08-11] MEDS: DESVENLAFAXINE 50 MG PO SCH (10:05)
[2017-08-11] MEDS: Bisacodyl 5mg EC Tab PO SCH (10:05)
[2017-08-11] MEDS: Enoxaparin 30 mg Syringe SC SCH (10:06)
[2017-08-11] MEDS: CADEXOMER IODINE 0.9% GEL 10G TOP SCH ×2 (10:06→17:45)
[2017-08-11] MEDS: POLYETHYLENE GLYCOL 3350 17 GM/Dose PACKET PO SCH (10:08)
[2017-08-11] MEDS: Morphine 15 mg SR Tab PO SCH ×2 (10:08→22:22)
--- NOTE | 2017-08-11 11:04 | CON ---
DATE: ENDOCRINOLOGY CONSULTATION LOCATION: In room 316, [facility]. HISTORY OF PRESENT ILLNESS: This is a 72-year-old female with known history of type 2 diabetes and hypertension with recently diagnosed small cell lung carcinoma with bone and hepatic metastases and is now being referred for diabetic evaluation because of persistent hyperglycemic accelerations as noted thereof. PAST MEDICAL HISTORY: As mentioned above. History of type 2 diabetes, previously on metformin given as 500 mg b.i.d., history of hypertensive cardiovascular disease and dyslipidemia; history of generalized anxiety and depression, on psychotropic medications and anxiolytic therapy. History of recent spinal compression fractures from underlying severe extensive bone metastases as mentioned above, history of recently diagnosed about 2 months ago of extensive right lung small cell carcinoma and received chemo and radiation therapy as noted thereof. Also history of COPD with significant history of nicotine dependence, recent history of bacteremia and urinary tract infections, currently with ongoing IV antibiotic management. She also has underlying right pleural effusion from the aforementioned small cell lung cancer. FAMILY HISTORY: Positive for hypertension and heart disease. SOCIAL HISTORY: Patient has supportive family. Admits to nicotine dependence for many years. REVIEW OF SYSTEMS: As mentioned above. Admits to generalized body weakness with easy fatigability and tiredness and suboptimal energy level with severe bouts of dizziness and lightheadedness that have improved accordingly as noted. No chest pains or palpitations, but admits to progressive shortness of breath, initially on exertion and then at rest with paroxysmal nocturnal dyspnea. Her oral intake has been variable and suboptimal with nausea, dyspepsia and vague upper abdominal pains. Also, admits to lower extremity paresthesia as noted. PHYSICAL EXAMINATION: GENERAL: An average-built female, in no apparent distress. VITAL SIGNS: Blood pressure of 140/80, pulse of 70 beats per minute and regular, temperature 98, respirations 20, height is 5 feet 3 inches, weight is pounds. HEENT: Head normocephalic. Eyes anicteric with pink conjunctivae. Funduscopy not possible at this time. Ears, nose and throat, otherwise normal. NECK: Supple. Thyroid gland is normal in size. No carotid bruits or any cervical adenopathy. CARDIOPULMONARY: Some adynamic precordium. S1, S2 is rapid and regular. LUNGS: Have bibasilar dullness and scattered rhonchi. ABDOMEN: Flat, soft with positive bowel sounds. EXTREMITIES: No peripheral edema. Pulses are +2 bilaterally. LABORATORY DATA: Her chemistry showed a BUN of 10, sodium 135, potassium 4.3, chloride 98, CO2 of 26, glucose 217 and creatinine 0.7. Her glucose levels have ranged from 204 to 239 and 249 mg/dL. ASSESSMENT: This is a 72-year-old female with uncontrolled and decompensated type 2 diabetes with extensive small cell lung carcinoma and supervening bony and hepatic metastases with also an underlying pleural effusion as noted and is being referred now for diabetic evaluation and management. PLAN OF MANAGEMENT: With the variability of her oral intake, we will hold off any kind of basal and/or premixed insulin regimen for now and start her on oral hypoglycemic therapy with Amaryl given as 4 mg b.i.d. before meals as ordered. We will modify the coverage scale to a very low-dose algorithm using regular insulin as ordered. If hyperglycemic levels persist, may consider the addition of Januvia as indicated. We will hold off on the basal and bolus insulin regimen for now. We will obtain serial chemistries and supplement accordingly as needed. We will also obtain a hemoglobin A1c control and baseline thyroid function studies will be ordered. We will follow and advise accordingly. Adelina Cisneros MD
--- NOTE | 2017-08-11 12:44 | CP.PCM.PN ---
Subjective - Date & Time of Evaluation Date of Evaluation: 08/11/17 Time of Evaluation: 12:41 - Subjective Subjective: PGY-[address] 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 Hb drops from 9.8 to 8.2, pt complained of increased tiredness today. Dr. Reis ordered transfusion of 2u pRBC. VS reviewed. Stable Gen: NAD Card: regular s1 s2 Pulm: CTA b/l no w/r/r Neuro: AAOx3 A/P: Symptomatic Anemia, Hb drops from 9.8 to 8.2 with increased tiredness - transfused 2u pRBC per Dr. Reis - Informed consent obtained Objective - Vital Signs/Intake and Output Vital Signs (last 24 hours): Temp Pulse Resp BP Pulse Ox 98 F 86 20 139/64 98 08/10/17 17:49 08/11/17 10:09 08/10/17 17:49 08/11/17 10:09 08/10/17 17:49 Intake and Output: 08/11/17 08/11/17 06:59 18:59 Intake Total 380 Balance 380 - Medications Medications: Current Medications Acetaminophen (Tylenol 325mg Tab) 650 mg PO Q4H PRN; Protocol PRN Reason: Fever >100.4 F Alprazolam (Xanax) 0.25 mg PO BID [facility] PRN Reason: Protocol Stop: 08/12/17 22:01 Last Admin: 08/11/17 10:04 Dose: 0.25 mg Amlodipine Besylate (Norvasc) 5 mg PO DAILY [facility] Last Admin: 08/11/17 10:09 Dose: 5 mg Arformoterol Tartrate (Brovana) 15 mcg IH [id number] [facility] Last Admin: 08/11/17 07:14 Dose: 15 mcg Bisacodyl (Dulcolax) 5 mg PO DAILY [facility] Last Admin: 08/11/17 10:05 Dose: 5 mg Budesonide (Pulmicort Respules) 0.25 mg IH [id number] [facility] Last Admin: 08/11/17 07:15 Dose: 0.25 mg Cadexomer Iodine (Iodosorb) 0 gm TOP BID [facility] Last Admin: 08/11/17 10:06 Dose: Not Given Doxycycline Hyclate (Doryx) 100 mg PO Q12 [facility] PRN Reason: Protocol Stop: 08/13/17 10:01 Last Admin: 08/11/17 10:05 Dose: 100 mg Enoxaparin Sodium (Lovenox) 30 mg SC DAILY [facility] PRN Reason: Protocol Last Admin: 08/11/17 10:06 Dose: 30 mg Famotidine (Pepcid) 40 mg PO HS [facility] Last Admin: 08/10/17 21:42 Dose: 40 mg Glimepiride (Amaryl) 4 mg PO ACBD [facility] Last Admin: 08/11/17 08:28 Dose: 4 mg Home Med (Home Med) 2 unit PO DAILY [facility] PRN Reason: Protocol Last Admin: 08/11/17 10:05 Dose: 2 unit Home Med (Home Med) 1 unit SC DAILY [facility] Last Admin: 08/10/17 12:15 Dose: 1 unit Meropenem (Merrem Iv 1 Gm Premix) 50 mls @ 100 mls/hr IVPB Q8 [facility] PRN Reason: Protocol Stop: 08/12/17 22:01 Last Admin: 08/11/17 05:16 Dose: 100 mls/hr Insulin Human Regular (Humulin R Low) 0 units SC ACHS [facility] PRN Reason: Protocol Last Admin: 08/11/17 12:20 Dose: Not Given Ketoconazole (Nizoral) 0 gm TOP BID [facility] PRN Reason: Protocol Loratadine (Claritin) 10 mg PO DAILY PRN PRN Reason: nasal congestion Losartan Potassium (Cozaar) 50 mg PO DAILY [facility] Last Admin: 08/11/17 10:08 Dose: 50 mg Montelukast Sodium (Singulair) 10 mg PO HS [facility] Last Admin: 08/10/17 21:42 Dose: 10 mg Morphine Sulfate (Morphine Immediate Release Tab) 15 mg PO Q6 PRN PRN Reason: Pain, moderate (4-7) Last Admin: 08/10/17 12:28 Dose: 15 mg Morphine Sulfate (Morphine Extended Release Tab) 15 mg PO Q12 [facility] Last Admin: 08/11/17 10:08 Dose: 15 mg Morphine Sulfate (Morphine) 2 mg IVP Q4H PRN PRN Reason: Pain, severe (8-10) Last Admin: 08/10/17 15:54 Dose: 2 mg Mupirocin (Bactroban Ointment) 0 gm TOP BID [facility] PRN Reason: Protocol Last Admin: 08/11/17 10:03 Dose: 1 applic Nicotine (Nicoderm Cq) 1 patch TD DAILY [facility] Last Admin: 08/11/17 10:09 Dose: 1 patch Ondansetron HCl (Zofran Tab) 4 mg PO Q8H PRN PRN Reason: Nausea/Vomiting Polyethylene Glycol (Miralax) 17 gm PO DAILY [facility] Last Admin: 08/11/17 10:08 Dose: 17 gm Silver Sulfadiazine (Silvadene 1% 25 Gm) 0 gm TP DAILY [facility] Sucralfate (Carafate Oral Susp) 1 gm PO 1000,1800 [facility] Last Admin: 08/11/17 10:04 Dose: 1 gm Zolpidem Tartrate (Ambien) 5 mg PO HS PRN; Protocol PRN Reason: Insomnia - Labs Labs: 08/11/17 07:00 08/11/17 07:00
[2017-08-11] MEDS: GRANIX SC SCH (16:02)
[2017-08-11] MEDS: Morphine 15 mg Immediate Release Tab PO PRN (17:54)
--- NOTE | 2017-08-11 18:19 | PN ---
DATE: ENDOCRINOLOGY FOLLOWUP NOTE LOCATION: Room 316, [facility]. SUBJECTIVE: This is a 72-year-old female with stage IV extensive small cell lung carcinoma with bone and hepatic metastases and now being followed closely for diabetic management because of persistent hyperglycemic accelerations as noted thereof. Her glycemic levels today are fluctuating and have ranged from 185-205 and 253 mg/dL. Her latest chemistry showed a BUN of 9, sodium 135, potassium 3.6, chloride 100, CO2 26, glucose 199 and creatinine 0.3. Her hemoglobin A1c is 8.1%. She is elevated and indicative of suboptimal metabolic control with diabetic condition. Because of the variability of her oral intake, we will be very careful to add more hypoglycemic therapy at this time and we will continue the oral hypoglycemic drug regimen as ordered with Amaryl given as 4 mg b.i.d. before meals to start today as ordered. We will continue the low-dose correction scale using regular insulin as given. We will obtain serial chemistries and supplement accordingly as needed. We will follow. Adelina Cisneros MD
--- NOTE | 2017-08-12 00:35 | PN ---
DATE: 08/11/2017 SUBJECTIVE: Patient was seen earlier this morning in room 316. No fevers and no chills. No nausea or vomiting. No abdominal pain. PHYSICAL EXAMINATION: VITAL SIGNS: Temperature is 98, blood pressure is 130/60, respiratory rate 20. HEENT: Unremarkable. NECK: Supple. LUNGS: Have decreased breath sounds. HEART: Normal S1, S2. ABDOMEN: Soft, nontender. LABORATORY DATA: Reveals a white count of 3.5, hemoglobin of 8, platelets of 81. Chemistries are noted. Urinalysis is noted. Microbiology is reviewed. ASSESSMENT AND PLAN: This is a 72-year-old female, who was seen earlier this morning in room 316 with sepsis, right middle lobe healthcare-associated pneumonia on top of extended-spectrum beta-lactamases Klebsiella and Proteus in the urine and a stage III decubitus ulcer and a history of healthcare-associated pneumonia, neutropenia and viral illness with influenza and bronchitis in a patient with stage IV lung cancer, hypertension, diabetes, depression, obesity. Currently on doxycycline and meropenem. Today is day #6 of 4-7 days of antibiotics. Patient is doing well. When completed, we will discontinue meropenem and doxycycline after tomorrow's last dose. Jorge Luis Hernandez MD
--- NOTE | 2017-08-12 03:16 | PN ---
DATE: 08/11/2017 PULMONARY PROGRESS NOTE REFERRING PHYSICIAN: Dr. Puente. SUBJECTIVE: She is lying in the bed, head at 45 degrees. Mild headache. No nausea. No vomiting. No diarrhea. No leg pain or leg swelling. PHYSICAL EXAMINATION: GENERAL: In no acute distress. VITAL SIGNS: Temperature is 98, heart rate is 89, respiratory rate is 18, blood pressure 132/56, pulse ox 96% on room air. HEENT: Moist mucous membrane. Crowded airway. NECK: Supple. No JVD. LUNGS: Have a fair airflow without rhonchi. HEART: S1 and S2. ABDOMEN: Soft, nontender. No organomegaly. EXTREMITIES: No edema. NEUROLOGIC: Awake and alert, follows simple commands. MEDICATIONS: Reviewed and noted no new changes in medication reported since yesterday. LABORATORY DATA: Review shows hemoglobin 8.2, hematocrit 25.4, WBC 3.5, platelet is 81. Sodium 135, potassium 3.6, chloride 100, bicarbonate 26, BUN 9, creatinine 0.3, calcium is 8.2. AST 35, ALT 58, albumin 3.4. Cholesterol is 168. IMPRESSION AND PLAN: Small cell lung cancer with extensive disease involving the liver and spine, retroperitoneal lymphadenopathy, pulmonary infiltrate, chronic obstructive lung disease, diabetes, hypertension, urinary tract infection, anemia, being followed by Oncology. Plan is to transfuse. Spoke to nursing staff. May give Motrin 400 mg one dose. Keep head at 45 degrees. Bronchodilator, fall precaution. Continue therapy. Follow up labs in the morning and we will follow with you. Roebrt Eastman MD
[2017-08-12] MEDS: Meropenem IV 1 gm in NS 50 ML IVPB SCH ×3 (05:54→21:51)
[2017-08-12 06:52] LABS: BASO # 0.02 K/mm3 (0.0-2.0); BASO % 0.4 % (0.0-3.0); EOS % 0.2 % (1.5-5.0); GRAN # 2.64 (1.4-6.5); GRAN % 58.2 % (50.0-68.0); HEMOGLOBIN 8.5 g/dL (12.0-16.0); LYMPH # 1.2 (1.2-3.4); LYMPH % 27.3 % (22.0-35.0); MEAN CELL VOLUME 94.6 fl (80.0-105.0); MEAN CORPUSCULAR HEMOGLOBIN 30.6 pg (25.0-35.0); MEAN CORPUSCULAR HGB CONC 32.3 g/dl (31.0-37.0); MEAN PLATELET VOLUME 10.6 fl (7.0-11.0); MONO # 0.6 (0.1-0.6); MONO % 13.9 % (1.0-6.0); RBC 2.78 10^6/uL (3.5-6.1); RED CELL DISTRIBUTION WIDTH 19.9 % (11.5-14.5); WHITE BLOOD COUNT 4.5 10^3/ul (4.5-11.0)
[2017-08-12] MEDS: Insulin Reg-LOW-Coverage SC SCH ×4 (06:53→22:08)
[2017-08-12] MEDS: Arformoterol 15 mcg/2 ml Inh Sol IH SCH ×2 (07:03→22:15)
[2017-08-12] MEDS: Budesonide 0.25 mg/2 ml Inhal Susp UD IH SCH ×2 (07:03→22:15)
[2017-08-12 07:08] LABS: IRON 124 ug/dL (45-180)
[2017-08-12 07:12] LABS: ALB/GLOB RATIO 1.3 (1.1-1.8); ALBUMIN 3.6 g/dL (3.0-4.8); ALT/SGPT 51 U/L (7-56); AST/SGOT 40 U/L (14-36); BLOOD UREA NITROGEN 10 mg/dL (7-21); CALCIUM 8.4 mg/dL (8.4-10.5); GFR AFRICAN-AMERICAN > 60; GFR NON-AFRICAN AMERICAN > 60
[2017-08-12 07:30] LABS: % IRON SATURATION 46 % (20-55); TOTAL IRON BINDING CAPACITY 272 ug/dL (265-497)
[2017-08-12] MEDS: Sucralfate 1 gm/10 ml Oral Susp UD PO SCH ×2 (10:18→17:11)
[2017-08-12] MEDS: POLYETHYLENE GLYCOL 3350 17 GM/Dose PACKET PO SCH (10:18)
[2017-08-12] MEDS: Morphine 15 mg SR Tab PO SCH ×2 (10:21→21:43)
[2017-08-12] MEDS: GRANIX SC SCH (10:23)
[2017-08-12] MEDS: DESVENLAFAXINE 50 MG PO SCH (10:24)
[2017-08-12] MEDS: Enoxaparin 30 mg Syringe SC SCH (10:24)
[2017-08-12] MEDS: Bisacodyl 5mg EC Tab PO SCH (10:25)
[2017-08-12] MEDS: CADEXOMER IODINE 0.9% GEL 10G TOP SCH ×2 (10:28→17:12)
--- NOTE | 2017-08-12 12:24 | CP.PCM.PN ---
Subjective - Date & Time of Evaluation Date of Evaluation: 08/12/17 Time of Evaluation: 08:00 - Subjective Subjective: PGY-2 Heme/onc progress note for Dr. Puente's service Patient seen and examined at bedside in TCU. No acute distress. No events overnight. Patient states that she is feeling better and continues to participate in physical therapy however she would like more physical therapy and does not feel strong enough to go home. Patient is receiving 2 unit pRBC this morning for her anemia. She is tolerating diet, reports good appetite. She denies chest pain, fever, chills, abd pain, n/v. Objective - Vital Signs/Intake and Output Vital Signs (last 24 hours): Temp Pulse Resp BP Pulse Ox 97.5 F L 81 18 132/72 96 08/12/17 08:00 08/12/17 10:37 08/12/17 08:00 08/12/17 10:37 08/12/17 06:00 Intake and Output: 08/12/17 08/12/17 06:59 18:59 Intake Total 380 Balance 380 - Medications Medications: Current Medications Acetaminophen (Tylenol 325mg Tab) 650 mg PO Q4H PRN; Protocol PRN Reason: Fever >100.4 F Alprazolam (Xanax) 0.25 mg PO BID [facility] PRN Reason: Protocol Stop: 08/12/17 22:01 Last Admin: 08/12/17 10:19 Dose: 0.25 mg Amlodipine Besylate (Norvasc) 5 mg PO DAILY [facility] Last Admin: 08/12/17 10:36 Dose: 5 mg Arformoterol Tartrate (Brovana) 15 mcg IH [id number] [facility] Last Admin: 08/12/17 07:03 Dose: 15 mcg Bisacodyl (Dulcolax) 5 mg PO DAILY [facility] Last Admin: 08/12/17 10:25 Dose: 5 mg Budesonide (Pulmicort Respules) 0.25 mg IH [id number] [facility] Last Admin: 08/12/17 07:03 Dose: 0.25 mg Cadexomer Iodine (Iodosorb) 0 gm TOP BID [facility] Last Admin: 08/12/17 10:28 Dose: 1 gm Doxycycline Hyclate (Doryx) 100 mg PO Q12 [facility] PRN Reason: Protocol Stop: 08/13/17 10:01 Last Admin: 04/20/18 10:26 Dose: 100 mg Enoxaparin Sodium (Lovenox) 30 mg SC DAILY [facility] PRN Reason: Protocol Last Admin: 08/12/17 10:24 Dose: 30 mg Famotidine (Pepcid) 40 mg PO HS [facility] Last Admin: 08/11/17 22:19 Dose: 40 mg Glimepiride (Amaryl) 4 mg PO ACBD [facility] Last Admin: 08/12/17 07:48 Dose: 4 mg Home Med (Home Med) 2 unit PO DAILY [facility] PRN Reason: Protocol Last Admin: 08/12/17 10:24 Dose: 2 unit Home Med (Home Med) 1 unit SC DAILY [facility] Last Admin: 08/12/17 10:23 Dose: Not Given Meropenem (Merrem Iv 1 Gm Premix) 50 mls @ 100 mls/hr IVPB Q8 [facility] PRN Reason: Protocol Stop: 08/12/17 22:01 Last Admin: 08/12/17 05:54 Dose: 100 mls/hr Insulin Human Regular (Humulin R Low) 0 units SC ACHS [facility] PRN Reason: Protocol Last Admin: 08/12/17 06:53 Dose: Not Given Ketoconazole (Nizoral) 0 gm TOP BID [facility] PRN Reason: Protocol Last Admin: 08/12/17 10:27 Dose: 1 applic Loratadine (Claritin) 10 mg PO DAILY [facility] PRN Reason: nasal congestion Losartan Potassium (Cozaar) 50 mg PO DAILY [facility] Last Admin: 08/12/17 10:37 Dose: 50 mg Montelukast Sodium (Singulair) 10 mg PO HS [facility] Last Admin: 08/11/17 22:20 Dose: 10 mg Morphine Sulfate (Morphine Immediate Release Tab) 15 mg PO Q6 PRN PRN Reason: Pain, moderate (4-7) Last Admin: 08/11/17 17:54 Dose: 15 mg Morphine Sulfate (Morphine Extended Release Tab) 15 mg PO Q12 [facility] Last Admin: 08/12/17 10:21 Dose: 15 mg Morphine Sulfate (Morphine) 2 mg IVP Q4H PRN PRN Reason: Pain, severe (8-10) Last Admin: 08/10/17 15:54 Dose: 2 mg Mupirocin (Bactroban Ointment) 0 gm TOP BID [facility] PRN Reason: Protocol Last Admin: 08/12/17 10:16 Dose: 1 applic Nicotine (Nicoderm Cq) 1 patch TD DAILY [facility] Last Admin: 08/12/17 10:17 Dose: 1 patch Ondansetron HCl (Zofran Tab) 4 mg PO Q8H PRN PRN Reason: Nausea/Vomiting Polyethylene Glycol (Miralax) 17 gm PO DAILY [facility] Last Admin: 08/12/17 10:18 Dose: 17 gm Silver Sulfadiazine (Silvadene 1% 25 Gm) 0 gm TP DAILY [facility] Sucralfate (Carafate Oral Susp) 1 gm PO 1000,1800 [facility] Last Admin: 08/12/17 10:18 Dose: 1 gm Zolpidem Tartrate (Ambien) 5 mg PO HS PRN; Protocol PRN Reason: Insomnia - Labs Labs: 08/12/17 06:40 08/12/17 06:40 - Constitutional Appears: Well, No Acute Distress - Head Exam Head Exam: ATRAUMATIC, NORMOCEPHALIC - Eye Exam Eye Exam: Normal appearance - ENT Exam ENT Exam: Mucous Membranes Moist - Respiratory Exam Respiratory Exam: Clear to Ausculation Bilateral, NORMAL BREATHING PATTERN. absent: Rhonchi, Wheezes, Respiratory Distress - Cardiovascular Exam Cardiovascular Exam: REGULAR RHYTHM, +S1, +S2. absent: Bradycardia, Tachycardia , Murmur - GI/Abdominal Exam GI & Abdominal Exam: Soft, Normal Bowel Sounds. 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 Plan: Urine cultures positive for klebsiella pneumoniae and proteus mirabilis continue on doxycycline and meropenem day 7, last dose today per ID blood cultures negative ID following continue ensure for nutrition patient received aredia on 08/10, next dose about 1 month h/o sacral wound daily dressing changes and iodosorb bid and mupirocin bid patient's wbc improved from yesterday will continue granix 480mcg for and additional 2 days hgb low, patient received transfusion 2 u pRBC this morning manual platelet count is 131 Patient will be discharged over weekend, will order meds to bed continue home medications Pulm Consult, Dr. Eastman Continue PT case reviewed and discussed with Dr. Puente
--- NOTE | 2017-08-12 17:06 | PN ---
DATE: LOCATION: [facility]. This is a 72-year-old female with extensive small cell lung carcinoma and associated bony metastases and also, hepatic metastases, currently being followed closely for metabolic management because of recent hyperglycemic accelerations as noted thereof. Her glucose levels have improved and have ranged from 118 to 189 and 185 mg/dL. Her hemoglobin A1c is 8.1%. Her latest chemistry showed a BUN of 9, sodium 135, potassium 3.6, chloride 100, CO2 26, glucose 199 and creatinine 0.3. So at this time, assessment is uncontrolled type 2 diabetes with suboptimal metabolic control, started on oral hypoglycemic therapy as given. She also has underlying stage IV small cell lung carcinoma with bony and hepatic metastases as noted. Plan of management as discussed with the patient's staff, we will continue the oral hypoglycemic drug therapy given as Amaryl at 4 mg b.i.d. also because of the variability of her oral intake. We will hold off the initiation of the other oral agents for now and observe her current response clinically and biochemically to allow for dose equilibration. We will obtain serial chemistries and supplement accordingly as needed. We will follow with you. Adelina Cisneros MD
[2017-08-12] MEDS: Morphine 15 mg Immediate Release Tab PO PRN (17:10)
--- NOTE | 2017-08-12 19:07 | CP.PCM.PN ---
Subjective - Date & Time of Evaluation Date of Evaluation: 08/12/17 Time of Evaluation: 11:45 - Subjective Subjective: No fevers, not in distress, breathing well. Objective - Vital Signs/Intake and Output Vital Signs (last 24 hours): Temp Pulse Resp BP Pulse Ox 98.2 F 89 20 132/56 L 96 08/11/17 16:59 08/11/17 16:59 08/11/17 16:59 08/11/17 16:59 08/11/17 16:59 Intake and Output: 08/11/17 08/12/17 18:59 06:59 Intake Total 380 Balance 380 - Medications Medications: Current Medications Acetaminophen (Tylenol 325mg Tab) 650 mg PO Q4H PRN; Protocol PRN Reason: Fever >100.4 F Alprazolam (Xanax) 0.25 mg PO BID [facility] PRN Reason: Protocol Stop: 08/12/17 22:01 Last Admin: 08/11/17 17:47 Dose: 0.25 mg Amlodipine Besylate (Norvasc) 5 mg PO DAILY [facility] Last Admin: 08/11/17 10:09 Dose: 5 mg Arformoterol Tartrate (Brovana) 15 mcg IH [id number] [facility] Last Admin: 08/11/17 20:24 Dose: 15 mcg Bisacodyl (Dulcolax) 5 mg PO DAILY [facility] Last Admin: 08/11/17 10:05 Dose: 5 mg Budesonide (Pulmicort Respules) 0.25 mg IH [id number] [facility] Last Admin: 08/11/17 20:24 Dose: 0.25 mg Cadexomer Iodine (Iodosorb) 0 gm TOP BID [facility] Last Admin: 08/11/17 17:45 Dose: 1 gm Doxycycline Hyclate (Doryx) 100 mg PO Q12 [facility] PRN Reason: Protocol Stop: 08/13/17 10:01 Last Admin: 08/11/17 22:19 Dose: 100 mg Enoxaparin Sodium (Lovenox) 30 mg SC DAILY [facility] PRN Reason: Protocol Last Admin: 08/11/17 10:06 Dose: 30 mg Famotidine (Pepcid) 40 mg PO HS [facility] Last Admin: 08/11/17 22:19 Dose: 40 mg Glimepiride (Amaryl) 4 mg PO ACBD [facility] Last Admin: 08/11/17 17:44 Dose: 4 mg Home Med (Home Med) 2 unit PO DAILY [facility] PRN Reason: Protocol Last Admin: 08/11/17 10:05 Dose: 2 unit Home Med (Home Med) 1 unit SC DAILY [facility] Last Admin: 08/11/17 16:02 Dose: Not Given Meropenem (Merrem Iv 1 Gm Premix) 50 mls @ 100 mls/hr IVPB Q8 [facility] PRN Reason: Protocol Stop: 08/12/17 22:01 Last Admin: 08/11/17 22:19 Dose: 100 mls/hr Insulin Human Regular (Humulin R Low) 0 units SC ACHS [facility] PRN Reason: Protocol Last Admin: 08/11/17 22:24 Dose: Not Given Ketoconazole (Nizoral) 0 gm TOP BID [facility] PRN Reason: Protocol Last Admin: 08/11/17 17:45 Dose: 1 applic Loratadine (Claritin) 10 mg PO DAILY [facility] PRN Reason: nasal congestion Losartan Potassium (Cozaar) 50 mg PO DAILY [facility] Last Admin: 08/11/17 10:08 Dose: 50 mg Montelukast Sodium (Singulair) 10 mg PO HS [facility] Last Admin: 08/11/17 22:20 Dose: 10 mg Morphine Sulfate (Morphine Immediate Release Tab) 15 mg PO Q6 PRN PRN Reason: Pain, moderate (4-7) Last Admin: 08/11/17 17:54 Dose: 15 mg Morphine Sulfate (Morphine Extended Release Tab) 15 mg PO Q12 [facility] Last Admin: 08/11/17 22:22 Dose: 15 mg Morphine Sulfate (Morphine) 2 mg IVP Q4H PRN PRN Reason: Pain, severe (8-10) Last Admin: 08/10/17 15:54 Dose: 2 mg Mupirocin (Bactroban Ointment) 0 gm TOP BID [facility] PRN Reason: Protocol Last Admin: 08/11/17 17:45 Dose: 1 applic Nicotine (Nicoderm Cq) 1 patch TD DAILY [facility] Last Admin: 08/11/17 10:09 Dose: 1 patch Ondansetron HCl (Zofran Tab) 4 mg PO Q8H PRN PRN Reason: Nausea/Vomiting Polyethylene Glycol (Miralax) 17 gm PO DAILY [facility] Last Admin: 08/11/17 10:08 Dose: 17 gm Silver Sulfadiazine (Silvadene 1% 25 Gm) 0 gm TP DAILY [facility] Sucralfate (Carafate Oral Susp) 1 gm PO 1000,1800 [facility] Last Admin: 08/11/17 17:45 Dose: 1 gm Zolpidem Tartrate (Ambien) 5 mg PO HS PRN; Protocol PRN Reason: Insomnia - Labs Labs: 08/11/17 07:00 08/11/17 07:00 - Constitutional Appears: Chronically Ill - Head Exam Head Exam: NORMAL INSPECTION - ENT Exam ENT Exam: Mucous Membranes Moist - Neck Exam Neck Exam: absent: Meningismus - Respiratory Exam Respiratory Exam: Decreased Breath Sounds - Cardiovascular Exam Cardiovascular Exam: +S1, +S2 - GI/Abdominal Exam GI & Abdominal Exam: Soft. 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
--- NOTE | 2017-08-13 04:04 | PN ---
DATE: PULMONARY PROGRESS NOTE REFERRING PHYSICIAN: Dr. Puente. SUBJECTIVE: The patient is in infusion room, getting blood transfusion done. Feels tired and down. No particularly cough or nausea. No vomiting. No diarrhea, leg pain or leg swelling. OBJECTIVE: GENERAL: In no acute distress. VITAL SIGNS: Temp is 98, heart rate is 85, respiratory rate is 20, blood pressure 134/80, pulse ox 94% on room air. HEENT: Moist mucous membrane. No ulcer or thrush noted. NECK: Supple. No JVD. LUNGS: Have a fair airflow with few rhonchi. HEART: S1 and S2. ABDOMEN: Soft and nontender. No organomegaly. EXTREMITIES: No edema. NEUROLOGICAL: Awake, alert. Follows simple command. LABORATORY DATA: Hemoglobin is 8.5, hematocrit 26.3, WBC 4.5, platelet is 76. Sodium 137, potassium 3.7, chloride 100, bicarbonate 27, BUN 10, creatinine 0.3, glucose 168, calcium 8.4, iron is 124, ferritin 1190, AST 40, ALT 51, alk phos is 326, albumin 3.6. MEDICATIONS: Show she is on glimepiride 4 mg a.c.b.d. , Ambien 5 mg at bedtime p.r.n., Brovana inhaled twice a day, Carafate 1 g twice a day, Claritin 10 mg daily, Cozaar 50 mg daily, doxycycline 100 mg twice a day, Dulcolax 5 mg daily, insulin coverage, cadexomer topical was applied, Lovenox 30 mg daily, meropenem 1 g IV every 8 hours, MiraLax 17 g p.o. daily, morphine 2 mg every 4 hours p.r.n., morphine extended release 15 mg every 12 hours, morphine release 15 mg every 6 hours p.r.n., Nicoderm patch daily, ketoconazole to affected area twice a day, Norvasc 5 mg daily, Pepcid 40 mg daily, budesonide inhaled twice a day, Singulair 10 mg daily, Tylenol p.r.n., Xanax 0.2 mg twice a day, Zofran p.r.n. basis. 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 Pulmonary point of view, she is doing well. Continue bronchodilator. Keep head at 45 degrees. Continue therapy. Follow up hemoglobin and hematocrit. Need to watch platelets, which will low . Also, we will send cortisol level tomorrow. Being followed by Endocrinology. Case discussed with Dr. Puente. Thank you and we will follow with you. Robert Eastman MD
[2017-08-13] MEDS: Insulin Reg-LOW-Coverage SC SCH ×2 (06:41→12:56)
[2017-08-13 06:43] VITALS: PULSE 81; RESP 18; TEMP 97.5; O2SAT 96
[2017-08-13 06:52] LABS: ALB/GLOB RATIO 1.4 (1.1-1.8); ALBUMIN 3.8 g/dL (3.0-4.8); ALT/SGPT 54 U/L (7-56); AST/SGOT 47 U/L (14-36); BLOOD UREA NITROGEN 11 mg/dL (7-21); CALCIUM 8.4 mg/dL (8.4-10.5); GFR AFRICAN-AMERICAN > 60; GFR NON-AFRICAN AMERICAN > 60
[2017-08-13] MEDS: Budesonide 0.25 mg/2 ml Inhal Susp UD IH SCH (07:13)
[2017-08-13] MEDS: Arformoterol 15 mcg/2 ml Inh Sol IH SCH (07:13)
[2017-08-13 07:18] LABS: BASO # 0.02 K/mm3 (0.0-2.0); BASO % 0.5 % (0.0-3.0); GRAN # 2.44 (1.4-6.5); GRAN % 60.9 % (50.0-68.0); HEMOGLOBIN 11.2 g/dL (12.0-16.0); LYMPH % 25.4 % (22.0-35.0); MEAN CELL VOLUME 91.1 fl (80.0-105.0); MEAN CORPUSCULAR HEMOGLOBIN 30.2 pg (25.0-35.0); MEAN CORPUSCULAR HGB CONC 33.1 g/dl (31.0-37.0); MEAN PLATELET VOLUME 10.3 fl (7.0-11.0); MONO # 0.5 (0.1-0.6); MONO % 13.2 % (1.0-6.0); RBC 3.71 10^6/uL (3.5-6.1); RED CELL DISTRIBUTION WIDTH 19.7 % (11.5-14.5)
[2017-08-13] MEDS: Morphine 15 mg SR Tab PO SCH (09:04)
[2017-08-13] MEDS: Bisacodyl 5mg EC Tab PO SCH (09:05)
[2017-08-13] MEDS: Sucralfate 1 gm/10 ml Oral Susp UD PO SCH (09:05)
[2017-08-13] MEDS: POLYETHYLENE GLYCOL 3350 17 GM/Dose PACKET PO SCH (09:05)
[2017-08-13] MEDS: Enoxaparin 30 mg Syringe SC SCH (09:05)
[2017-08-13] MEDS: DESVENLAFAXINE 50 MG PO SCH (09:06)
[2017-08-13] MEDS: GRANIX SC SCH ×2 (09:07→13:36)
[2017-08-13] MEDS: CADEXOMER IODINE 0.9% GEL 10G TOP SCH (09:08)
[2017-08-13 09:12] VITALS: BP 118/75
--- NOTE | 2017-08-13 10:42 | PN ---
DATE: ENDOCRINOLOGY FOLLOWUP NOTE LOCATION: In room 316. SUBJECTIVE: This is a 72-year-old female with small cell lung carcinoma and extensive metastases, now being followed closely for metabolic management. Her oral intake remains quite variable at this time and the latest glucose levels are fluctuating, but improved with glucose values ranging from 159-168 mg/dL. Her latest chemistry showed a BUN of 10, sodium 136, potassium 3.7, chloride 100, CO2 of 27, glucose 135 and creatinine 0.3. So at this time, we will continue the Amaryl given as 4 mg b.i.d. before meals to allow for dose equilibration. With the variability of her oral intake, we will hold off the addition of any more oral hypoglycemic therapy as noted. We will obtain serial chemistries and supplement accordingly as needed. We will follow. Adelina Cisneros MD
--- NOTE | 2017-08-13 14:19 | PN ---
DATE: 08/13/2017 SUBJECTIVE: The patient is in bed, in no acute distress, nontoxic. The patient was seen early this morning in room 316. PHYSICAL EXAMINATION: VITAL SIGNS: Temperature is 97, blood pressure is 117/70, respiratory rate of 18, heart rate of 81. HEENT: Examination of HEENT is unremarkable. NECK: Supple. LUNGS: Have decreased breath sounds. HEART: Normal S1 and S2. ABDOMEN: Soft, nontender. LABORATORY DATA: Laboratory examination reveals a white count of 4, hemoglobin of 11, platelets of 74. ASSESSMENT AND PLAN: A 72-year-old female with sepsis due to right lower lobe healthcare-associated pneumonia on top of extended-spectrum beta-lactamase, Klebsiella and Proteus urinary tract infection. Clinically improved stage III decubitus ulcer and on meropenem and doxycycline with stage III decubitus ulcer and diabetes, hypertension, depression, lower back tumor. Has completed 7 days, today is actually the 8th day, we will discontinue the meropenem. We will follow closely with you. Jorge Luis Hernandez MD
--- NOTE | 2017-08-13 17:30 | PN ---
DATE: 08/13/2017 PULMONARY PROGRESS NOTE REFERRING PHYSICIAN: Rudy Puente MD. SUBJECTIVE: The patient is lying in the bed, head at 45 degrees, night was unremarkable. Excited that going home. No headache. No rhinitis. No nausea. No vomiting, diarrhea, leg pain, leg swelling. OBJECTIVE: GENERAL: In no acute distress. VITAL SIGNS: Temp is 98, heart rate is 81, respiratory rate is 18, blood pressure 118/75, pulse ox 96% on room air. HEENT: Moist mucous membrane. No ulcer or thrush noted. NECK: Supple. No JVD. LUNGS: Have a fair airflow with rhonchi. HEART: S1 and S2. ABDOMEN: Soft, nontender. No organomegaly. EXTREMITIES: No edema. NEUROLOGICAL: Awake and alert. Follows simple command. LABORATORY DATA: Shows hemoglobin 11.2, hematocrit 33.8, WBC 4, platelet count is 74. Sodium 137, potassium 2.1, chloride 100, bicarbonate 28, BUN 11, creatinine 0.3, glucose is 131, iron is 124, calcium 8.4, AST 47, ALT 54, alk phos is 385, albumin is 3.8. MEDICATIONS: Reviewed and noted. No new changes in medications reported since yesterday. IMPRESSION AND PLAN: Small-cell lung cancer with extensive disease involving liver and spine, also retroperitoneal lymphadenopathy, pulmonary infiltrate, chronic obstructive lung disease, diabetes, hypertension, urinary tract infection, anemia, status post transfusion. Pulmonary point of view, she is doing well. Case discussed with Dr. Puente yesterday. I agree with the discharge plan. Follow up with Dr. Puente as outpatient. Pulmonary point of view, continue bronchodilator. We will follow with you outpatient. Thank you and we will follow with you. Robert Eastman MD
--- NOTE | 2017-08-15 14:49 | DS ---
LOCATION: Patient is in room 316, bed 1. HISTORY OF PRESENT ILLNESS: Patient is being discharged home and will be followed up as an outpatient. 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 Post chemotherapy, received support with Granix. Patient also received 2 units of blood recently and overall, despite her low platelet count, has been feeling better with ongoing chemotherapy. She has had 3 cycles of chemotherapy, which she just completed and with the physical therapy and treatment, her back pain is also improved. Breathing is significantly improved and she has been participating in physical therapy and overall, feeling better. She is still weak in her legs specifically when she has to get up from the sitting position or sit up from a lying down position, but once she is up, she is able to get around. She wears a back brace when she is moving around. Denies any headache. Cough is better. Appetite is good. No nausea, no vomiting. Sacral decubitus is gradually improving. PHYSICAL EXAMINATION: GENERAL: The patient is awake, alert and oriented, in no acute distress. VITAL SIGNS: Stable as stated in the chart. T-max is 98.4, heart rate 80, respiration is 18, blood pressure is 140/74, pulse ox is 98% on room air. HEENT: Head, normocephalic and atraumatic. Conjunctivae pale. Sclerae are anicteric. Pupils are equally reactive to light and accommodation. Examination of the oropharynx reveals no oropharyngeal lesions. Patient is edentulous. NECK: Supple. There is no adenopathy. LUNGS: Relatively clear to percussion and auscultation with decreased breath sounds in the right side posteriorly. CARDIOVASCULAR: Reveals PMI to be in the fifth intercostal space, inside the midclavicular line. S1 and S2 are normal. No gallop or murmur heard. ABDOMEN: Soft and nontender. Liver and spleen are not palpable. No rebound, rigidity, or guarding is noted. EXTREMITIES: Reveal no cyanosis, clubbing, or edema. NEUROLOGIC: Reveals higher functions to be normal. No focal deficits are noted. BACK: Reveals some mild back tenderness, but before. Pain level on a scale of 0 to 10 is at least 2 or 3. Patient has been taking long-acting and short-acting morphine medicines and she has also been taking her antidepressants. Sacral decubitus appears to be improved. Size has decreased down to 1 cm. Margins are clear. Patient is on daily dressing. GENITOURINARY AND RECTAL: Deferred. LYMPHATICS: There is no evidence of adenopathy in the neck, axilla, or groin. LABORATORY DATA: Patient's labs were reviewed. White count is 4, hemoglobin 11.2, hematocrit 33.8, platelet count 74,000. ANC is reviewed, it is 2.44. Electrolytes are unremarkable. Potassium is 3.1. Patient may need some potassium supplement. AST 47, ALT 54. Alkaline phosphatase is 385, which has been holding. Patient is on IV diphosphonate as her medication for her bone metastasis. Patient's medications for home discharge were reviewed and they include the following: Patient is on Colace mg daily, cinnamon bark 500 mg daily, Xanax 0.5 b.i.d., Iodosorb for topical application for sacral decubitus area, metformin 500 mg p.o. b.i.d. She is on morphine extended release 50 mg p.o. every 12 hours. She is on morphine immediate release 50 mg p.o. every 4 hours p.r.n. She is on 500 mg t.i.d. She is on fenofibric acid 135 mg capsule one daily, Granix 480 mcg injections for tomorrow and Tuesday. She got one shot discharge. Norvasc 5 mg p.o. daily. Brovana 15 mcg inhaled every 12 hours, budesonide respules via nebulizer every 12 hours, Amaryl 4 mg p.o. daily, Lovastatin 50 mg p.o. daily, Singulair 10 mg p.o. at bedtime, Bactroban ointment again applied to the sacral decubitus as needed, MiraLax 17 g p.o. daily, Carafate 1 g p.o. b.i.d., Xanax 0.5 mg b.i.d. Patient is also on Pristiq 50 mg tablet two daily, as mentioned is 500 mg t.i.d. No dietary restrictions have been placed. Patient will have [facility] at home, home physical therapy. Patient is also going to get [facility] to come to her house for additional help at home. Patient has been set up for her next cycle of chemotherapy in 10 days along with her next treatment with IV bisphosphonate. I will discuss my findings in detail with the patient, spoke to the son also at great length. We will try to see how she can handle things at home as an outpatient. If she should get worse, patient is always welcome to reevaluate herself or coming into the hospital and maybe we could then decide whether she needs to get subacute rehab or get additional physical therapy as well. Again, the plan at this point in time is to send her home. Follow her labs. Check her potassium as an outpatient and continue treatment as an outpatient. ready for her next cycle, after which we can decide whether she needs to come into the hospital again. That will be cycle #4. Overall, she appears to be responding to the treatment with decrease in the size and volume of the disease, specifically in her lung. The liver disease appears to be stable as evident on the last CAT scan . Routine post exam instructions have been given to the patient. Patient has been instructed to keep in touch with me on daily basis via cell phone. DISCHARGE DIAGNOSES: 1. Deconditioning. 2. Small cell carcinoma of the lung, status post systemic chemotherapy with carboplatin and etoposide, status post intensive rehab, status post treatment with bronchodilators or bronchial toilet. Status post to prevent the patient from becoming pancytopenic and getting infected from ronda sepsis. Rudy Puente MD
== END 2017-08-13 14:50 | disposition home or self-care (01) | DRG 871 ==
LOC: TRCU 17:17
PROVIDERS: ADMIT Family Medicine; ATTEND Family Medicine
PROC: F07Z9FZ Gait Training/Functional Ambulation Treatment using Assistive, Adaptive, Supportive or Protective Equipment (ICD-10-PCS; principal; 2017-08-06)
PROC: F07M6ZZ Therapeutic Exercise Treatment of Musculoskeletal System - Whole Body (ICD-10-PCS; 2017-08-06)
PROC: F08Z2ZZ Grooming/Personal Hygiene Treatment (ICD-10-PCS; 2017-08-06)
PROC: F08Z1ZZ Dressing Techniques Treatment (ICD-10-PCS; 2017-08-06)
DX: A41.9 Sepsis, unspecified organism (principal); L89.93 Pressure ulcer of unspecified site, stage 3; J18.9 Pneumonia, unspecified organism; N39.0 Urinary tract infection, site not specified; C34.90 Malignant neoplasm of unspecified part of unspecified bronchus or lung; C78.7 Secondary malignant neoplasm of liver and intrahepatic bile duct; C79.51 Secondary malignant neoplasm of bone; J44.0 Chronic obstructive pulmonary disease with (acute) lower respiratory infection; J90 Pleural effusion, not elsewhere classified; B96.1 Klebsiella pneumoniae [K. pneumoniae] as the cause of diseases classified elsewhere; B96.4 Proteus (mirabilis) (morganii) as the cause of diseases classified elsewhere; D64.9 Anemia, unspecified; E11.649 Type 2 diabetes mellitus with hypoglycemia without coma; E11.65 Type 2 diabetes mellitus with hyperglycemia; E66.9 Obesity, unspecified; E78.5 Hyperlipidemia, unspecified; E86.0 Dehydration; F17.200 Nicotine dependence, unspecified, uncomplicated; F32.89 Other specified depressive episodes; F41.1 Generalized anxiety disorder; I11.9 Hypertensive heart disease without heart failure; Y95 Nosocomial condition; Z68.30 Body mass index [BMI] 30.0-30.9, adult; Z92.21 Personal history of antineoplastic chemotherapy; Z92.3 Personal history of irradiation; Z88.2 Allergy status to sulfonamides; Z91.19 Patient's noncompliance with other medical treatment and regimen; Z96.651 Presence of right artificial knee joint

== ENCOUNTER 2017-11-10 11:28 | Inpatient (IN) | payer MEDICARE, OTHER ==
[2017-11-10 11:29] VITALS: BMI 26.0
--- NOTE | 2017-11-10 11:54 | ED PDOC ---
Arrival/HPI - General Chief Complaint: Lower Extremity Problem/Injury Time Seen by Provider: 11/10/17 11:53 Historian: Patient - History of Present Illness Narrative History of Present Illness (Text): 11/10/17 12:14 72 year old female, whose PMH includes hypertension, lung CA, diabetes, and anxiety, who presents to the emergency department with general weakness. Patient reports having an appointment today for chemotherapy/radiation treatment , but due to her fatigue appearance, Dr. Puente, advised her to come to emergency department. Patient is complaining of gradual pain on the right side of ribs which she has had since prior to her cancer diagnosis and noted today her lower extremities were swollen with bruising which is new. Patient denies chest pain, shortness of breath, fever, abdominal pain, nausea, vomiting, diarrhea, or other complaints. Additionally, on out-patient lab results yesterday diagnosed low Potassium levels. PMD Dr. Puente Time/Duration: Prior to Arrival Symptom Onset: Gradual Symptom Course: Unchanged Past Medical History - Provider Review Nursing Documentation Reviewed: Yes - Infectious Disease Hx of Infectious Diseases: None - Tetanus Immunization Tetanus Immunization: Unknown - Cardiac Hx Circulatory Problems: Yes Hx Hypertension: Yes - Pulmonary Hx Respiratory Disorders: Yes Hx Lung Cancer: Yes Hx Pneumonia: Yes - Neurological Hx Neurological Disorder: No - HEENT Hx HEENT Disorder: No - Renal Hx Renal Disorder: No - Endocrine/Metabolic Hx Diabetes Mellitus Type 2: Yes - Hematological/Oncological Hx AIDS: No Hx Anemia: Yes Hx Blood Transfusions: Yes (2 PRBC 07/18) Hx Cancer: Yes Hx Chemotherapy: Yes Hx Metastasis: Yes (TO LIVER AND SPINE) - Integumentary Hx Dermatological Disorder: Yes Other/Comment: SACRAL PRESSURE ULCER - Musculoskeletal/Rheumatological Hx Back Pain: Yes Hx Falls: Yes Hx Unsteady Gait: Yes - Gastrointestinal Hx Gastrointestinal Disorders: No Hx Constipation: Yes Hx Nausea: Yes - Genitourinary/Gynecological Hx Genitourinary Disorders: Yes Hx Incontinence: Yes - Psychiatric Hx Psychophysiologic Disorder: Yes Hx Anxiety: Yes Hx Substance Use: No - Surgical History Hx Appendectomy: Yes Hx Cardiac Catheterization: Yes Hx Joint Replacement: Yes (RIGHT TKR 10/2012) Other/Comment: knee replacement 2012, 2 c-sections - Anesthesia Hx Anesthesia Reactions: No Hx Malignant Hyperthermia: No Family/Social History - Physician Review Nursing Documentation Reviewed: Yes Family/Social History: No Known Family HX Smoking Status: Former Smoker Hx Alcohol Use: No Hx Substance Use: No Allergies/Home Meds Allergies/Adverse Reactions: Allergies Sulfa (Sulfonamide Antibiotics) Allergy (Verified 08/03/17 16:46) ANAPHYLAXIS Home Medications: Home Meds Medication Instructions Recorded Confirmed Potassium Chloride [K-Dur 20 mEq 20 meq PO BID 09/13/17 11/10/17 ER Tab] Alprazolam [Xanax] 5 mg PO HS 11/10/17 11/10/17 Gabapentin [Neurontin] 100 mg PO TID 11/10/17 11/10/17 Levocetirizine Dihydrochloride 5 mg PO DAILY 11/10/17 11/10/17 [Xyzal] Morphine Sulfate [Ms Contin] 15 mg PO Q6 11/10/17 11/10/17 Morphine [Morphine Immediate 15 mg PO Q6 11/10/17 11/10/17 Release Tab] Ondansetron [Zofran] 4 mg PO TID PRN 11/10/17 11/10/17 Pantoprazole [Protonix] 40 mg PO QAM 11/10/17 11/10/17 Zolpidem [Ambien] 5 mg PO HS 11/10/17 11/10/17 Review of Systems - Physician Review All systems were reviewed & negative as marked: Yes - Review of Systems Constitutional: absent: Fevers Respiratory: absent: SOB Cardiovascular: absent: Chest Pain Gastrointestinal: absent: Nausea, Vomiting Genitourinary Female: absent: Dysuria Musculoskeletal: Other (lower extremities swollen ) Neurological: absent: Dizziness Physical Exam - Physical Exam Narrative Physical Exam (Text): 11/10/17 Constitutional: No acute distress. Appears generally weak. Head: Normocephalic. Atraumatic. Eyes: PERRL. ENT: Moist mucous membranes. Neck: Supple. Cardiovascular: Regular rate. Chest: (+) Right sided port on chest. No tenderness. Respiratory: Clear to auscultation bilaterally. GI: Soft. Nontender. Nondistended. Back: No CVA tenderness. Musculoskeletal: (+) bilateral lower extremity swelling with ecchymosis. No tenderness. Skin: As above. Neurologic: Alert, no focal deficit. Vital Signs Reviewed: Yes Vital Signs Temp Pulse Resp BP Pulse Ox 11/10/17 15:30 90 20 123/64 96 11/10/17 11:39 97.5 F L 84 17 122/70 95 Temperature: Afebrile Blood Pressure: Normal Pulse: Regular Respiratory Rate: Normal Appearance: Positive for: Well-Appearing, Non-Toxic, Comfortable Pain Distress: None Mental Status: Positive for: Alert and Oriented X 3 Medical Decision Making ED Course and Treatment: 11/10/17 Impression: 72 year old female with bilateral lower extremity swelling and right sided port on chest complaining of swollen lower extremities. Plan: -- EKG -- Chest X-ray -- Labs -- Urinalysis -- Ultrasound lower extremity -- Reassess and disposition Progress Notes: 11/10/17 14:15 Chest X-ray: Creator : DR. Acevedo, Dustin FISCHER COMPARISON: 11/07/2017 FINDINGS: LUNGS: No active pulmonary disease. PLEURA: No significant pleural effusion identified, no pneumothorax apparent. CARDIOVASCULAR: No radiographic findings to suggest acute or significant cardiovascular disease. Venous access catheter in stable, satisfactory position. OSSEOUS STRUCTURES: No significant abnormalities. VISUALIZED UPPER ABDOMEN: Normal. OTHER FINDINGS: None. IMPRESSION: No active disease. No significant interval change compared to the prior examination(s). US negative for DVT bilaterally. Potassium repletion initiated. EKG NSR 86 bpm, no ST elevations, T waves present. Dr. Puente accepts patient to his service. - Lab Interpretations Lab Results: 11/10/17 12:30 11/10/17 12:30 Lab Results 11/10/17 12:30: Blood Type Pending, Antibody Screen Pending, BBK History Checked Patient has bt 11/10/17 12:30: Sodium 142, Potassium 2.8 L*, Chloride 101, Carbon Dioxide 29, Anion Gap 14, BUN 14, Creatinine 0.4 L, Est GFR ( Amer) > 60, Est GFR ( Non-Af Amer) > 60, Random Glucose 160 H, Calcium 8.3 L, Total Bilirubin 0.4, AST 80 H, ALT 74 H, Alkaline Phosphatase 298 H, Total Creatine Kinase 72, Total Protein 6.9, Albumin 3.7, Globulin 3.2, Albumin/Globulin Ratio 1.1 11/10/17 12:30: PT 13.4 H, INR 1.16 H, APTT 19.4 L 11/10/17 12:30: WBC 5.8 D, RBC 3.01 L, Hgb 9.7 L, Hct 31.3 L, MCV 104.0, MCH 32.2, MCHC 31.0, RDW 17.6 H, Plt Count 141, MPV 9.8, Gran % 89.7 H, Lymph % ( Auto) 5.0 L, Wetzel % (Auto) 5.3, Eos % (Auto) 0.0 L, Baso % (Auto) 0.0, Gran # 5.20, Lymph # (Auto) 0.3 L, Wetzel # (Auto) 0.3, Eos # (Auto) 0.0, Baso # (Auto) 0.00, Neutrophils % (Manual) 95 H, Lymphocytes % (Manual) 2 L, Monocytes % ( Manual) 3, Platelet Evaluation Normal I have reviewed the lab results: Yes - RAD Interpretation Radiology Orders: 11/10/17 12:15 CHEST PORTABLE [RAD] Stat DUPLEX LOWER EXTRM VEIN BILAT [US] Stat Rasper Machine Operator: Radiologist - EKG Interpretation Interpreted by ED Physician: Yes Type: 12 lead EKG - Medication Orders Current Medication Orders: Sodium Chloride (Sodium Chloride 0.9%) 1,000 mls @ 75 mls/hr IV .[id number] STA Stop: 11/11/17 01:34 Last Admin: 11/10/17 13:00 Dose: 75 mls/hr eMAR Start Stop Document 11/10/17 13:00 SZA (Rec: 11/10/17 13:08 UCHE [id number]) Intravenous Solution Start Date 11/10/17 Start Time 13:00 Potassium Chloride (Potassium Chloride 20 Meq/100 Ml) 20 meq in 100 mls @ 50 mls/hr IVPB Q2H KIMMY Stop: 11/10/17 17:29 Last Admin: 11/10/17 15:46 Dose: 50 mls/hr eMAR Start Stop Document 11/10/17 15:46 TERRIA (Rec: 11/10/17 15:46 UCHE [id number]) Intravenous Solution Start Date 11/10/17 Start Time 15:46 End Date 11/10/17 End time 17:46 Total Infusion Time 120 Morphine Sulfate (Morphine) 2 mg IVP STAT STA Stop: 11/10/17 15:50 - Scribe Statement The provider has reviewed the documentation as recorded by the Luz Hernandez Provider Scribe Attestation: All medical record entries made by the Luz were at my direction and personally dictated by me. I have reviewed the chart and agree that the record accurately reflects my personal performance of the history, physical exam, medical decision making, and the department course for this patient. I have also personally directed, reviewed, and agree with the discharge instructions and disposition. Disposition/Present on Arrival - Present on Arrival Any Indicators Present on Arrival: No History of DVT/PE: No History of Uncontrolled Diabetes: No Urinary Catheter: No History of Decub. Ulcer: No History Surgical Site Infection Following: None - Disposition Have Diagnosis and Disposition been Completed?: Yes Diagnosis: Hypokalemia, Leg edema, General weakness Disposition: HOSPITALIZED Disposition Time: 15:00 Patient Plan: Admission Condition: GUARDED
[2017-11-10] MEDS ORDERED: Sodium Chloride 0.9% 1,000 ML IV STA (12:15)
[2017-11-10 13:13] LABS: GRAN % 89.7 % (50.0-68.0); HEMOGLOBIN 9.7 g/dL (12.0-16.0); LYMPH # 0.3 (1.2-3.4); MEAN CORPUSCULAR HEMOGLOBIN 32.2 pg (25.0-35.0); MEAN PLATELET VOLUME 9.8 fl (7.0-11.0); MONO # 0.3 (0.1-0.6); MONO % 5.3 % (1.0-6.0); PLATELET COUNT 141 10^3/uL (120.0-450.0); RBC 3.01 10^6/uL (3.5-6.1); RED CELL DISTRIBUTION WIDTH 17.6 % (11.5-14.5); WHITE BLOOD COUNT 5.8 10^3/ul (4.5-11.0)
[2017-11-10 13:30] LABS: ALB/GLOB RATIO 1.1 (1.1-1.8); ALBUMIN 3.7 g/dL (3.0-4.8); ALT/SGPT 74 U/L (7-56); AST/SGOT 80 U/L (14-36); BLOOD UREA NITROGEN 14 mg/dL (7-21); CALCIUM 8.3 mg/dL (8.4-10.5); GFR AFRICAN-AMERICAN > 60; GFR NON-AFRICAN AMERICAN > 60
[2017-11-10 13:34] LABS: INR 1.16 (0.93-1.08); PARTIAL THROMBOPLASTIN TIME 19.4 Seconds (25.1-36.5); PROTHROMBIN TIME 13.4 SECONDS (9.4-12.5)
[2017-11-10 13:36] LABS: LYMPHOCYTE 2 % (22.0-35.0); MONOCYTE 3 % (1.0-6.0); NEUTROPHIL 95 % (50.0-70.0)
[2017-11-10 13:37] LABS: PLATELET ESTIMATE NORMAL (NORMAL)
--- NOTE | 2017-11-10 14:24 | RAD ---
Date of service: 11/10/2017 HISTORY: Generalized weakness COMPARISON: 11/07/2017 FINDINGS: LUNGS: No active pulmonary disease. PLEURA: No significant pleural effusion identified, no pneumothorax apparent. CARDIOVASCULAR: No radiographic findings to suggest acute or significant cardiovascular disease. Venous access catheter in stable, satisfactory position. OSSEOUS STRUCTURES: No significant abnormalities. VISUALIZED UPPER ABDOMEN: Normal. OTHER FINDINGS: None. IMPRESSION: No active disease. No significant interval change compared to the prior examination(s).
--- NOTE | 2017-11-10 15:47 | US ---
HISTORY: Leg pain and swelling. Evaluate for DVT PHYSICIAN(S): Lars Alvarado MD. TECHNIQUE: Duplex sonography and color-flow Doppler with graded compression were used to evaluate the deep venous systems of both lower extremities. FINDINGS: The visualized deep venous systems of both lower extremities are sonographically normal and compressible. Normal wave forms and augmentation are seen. There is no sonographic evidence for deep venous thrombosis in the visualized segments of both lower extremities. IMPRESSION: No sonographic evidence for deep venous thrombosis in the visualized segments of both lower extremities.
[2017-11-10] MEDS ORDERED: Morphine 2 mg/ml ISec IVP STA (15:49)
[2017-11-10 15:59] LABS: URINE APPEARANCE CLOUDY (CLEAR); URINE BILIRUBIN NEGATIVE (NEGATIVE); URINE BLOOD TRACE-INTACT (NEGATIVE); URINE COLOR LIGHT YELLOW (YELLOW); URINE GLUCOSE (UA) NEGATIVE (NEGATIVE); URINE LEUKOCYTE ESTERASE LARGE Leu/uL (NEGATIVE); URINE PROTEIN 30 mg/dL (<30 mg/dL)
[2017-11-10 16:07] LABS: URINE BACTERIA MOD (NEG)
[2017-11-10] MEDS ORDERED: cefTRIAXone 1 gm 1 GM/100 ML BAG IVPB STA (16:19)
--- NOTE | 2017-11-10 16:37 | CARD ---
APPROVED REPORT Date of service: 11/10/2017 EKG Measurement Heart [id number] <Conclusion> Normal sinus rhythm Left axis deviation Left ventricular hypertrophy with QRS widening Abnormal ECG
[2017-11-10] MEDS: Morphine 15 mg Immediate Release Tab PO PRN (21:40)
[2017-11-10] MEDS: Insulin Reg-LOW-Coverage SC SCH (22:00)
[2017-11-10] MEDS: Morphine 15 mg SR Tab PO SCH (22:00)
[2017-11-11] MEDS: Morphine 15 mg SR Tab PO SCH ×3 (01:35→22:12)
[2017-11-11] MEDS: Morphine 15 mg Immediate Release Tab PO PRN ×3 (04:44→17:27)
[2017-11-11 06:20] LABS: GRAN # 4.13 (1.4-6.5); HEMOGLOBIN 9.2 g/dL (12.0-16.0); LYMPH # 0.3 (1.2-3.4); LYMPH % 6.5 % (22.0-35.0); MEAN CELL VOLUME 105.2 fl (80.0-105.0); MEAN CORPUSCULAR HEMOGLOBIN 32.1 pg (25.0-35.0); MEAN CORPUSCULAR HGB CONC 30.5 g/dl (31.0-37.0); MEAN PLATELET VOLUME 10.1 fl (7.0-11.0); MONO # 0.3 (0.1-0.6); MONO % 6.5 % (1.0-6.0); RBC 2.87 10^6/uL (3.5-6.1); RED CELL DISTRIBUTION WIDTH 17.5 % (11.5-14.5); WHITE BLOOD COUNT 4.8 10^3/ul (4.5-11.0)
--- NOTE | 2017-11-11 06:24 | HP ---
This is Maria Elena Ye's admission history and physical. For Dr. Puente. CHIEF COMPLAINT: Hypokalemia. HISTORY OF PRESENT ILLNESS: The patient is a 72-year-old female, seen lying, awake on the telemetry bed, resting comfortably after being admitted by the emergency room earlier today for generalized weakness, with the patient now is scheduled for radiation and chemotherapy treatment, but did not come due to severe fatigue including leg discomfort. With this, the patient's lower extremities were also swollen with concern for deep vein thrombosis. With this, the patient was then noted to have significantly low electrolytes. Her potassium was checked in the emergency room with a value of 2.8, with the patient then recommended for admission with anemic indices also. It should be noted that the patient does suffer from stage IV lung cancer metastatic disease to the spine, liver and retroperitoneal nodes, with severe COPD. She is also in intractable pain for which narcotic analgesics are needed. At present, she is resting comfortably, getting K-riders for correction of her electrolyte imbalance. ALLERGIES: ARE TO SULFA. MEDICATIONS: Include Ambien, which she takes occasionally for sleep; Brovana, Carafate; Claritin, not used presently; Cozaar, Dulcolax p.r.n.; Lovenox, which was not necessary at this point as per Dr. Puente, she was taking in the past which was no longer necessary; MiraLax; morphine, extended and immediate release; Norvasc, Pepcid, Pulmicort, Singulair, Xanax, Zofran. Patient was on Nicoderm patch at one point, no longer necessary at this point. FAMILY AND SOCIAL HISTORY: Patient is a smoker, recently quit. No history of alcohol use. Her son is a cheMegaHoot master, presently playing. Today she reports winning his first match. Her [id number] is the Director of Family Medicine in [place], in [place]. She has a second daughter who has power of diesel engine operator. 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 Puente's protocols; severe COPD, hypertension, diet-controlled diabetes mellitus, obesity, gait disturbance, constipation, tobacco abuse history, GERD, insomnia. Questionable history of SIADH that was treated by Dr. Hawkins. Also history of pancytopenia. REVIEW OF SYSTEMS: Twelve-point review of systems was done, which was negative to questioning except for items mentioned in the history of present illness. PHYSICAL EXAMINATION: VITAL SIGNS: Temperature 97.5, pulse 84, respirations 17, blood pressure 118/59, pulse ox 98%. GENERAL: She has hair loss, with a wig on. HEENT: Otherwise unremarkable. Tongue is moist and midline. NECK: Supple. HEART: Regular rate. LUNGS: Rare rhonchi. ABDOMEN: Obese, soft, nontender. EXTREMITIES: Faint +1 edema in the feet bilaterally. NEUROLOGIC: Awake, alert and oriented x3. SKIN: Warm and dry, with ecchymotic changes to her arms that are scattered. LABORATORY DATA: The patient's labs were done. White blood cell count 5.8, hemoglobin 9.7, hematocrit 31.3, platelet count of 141,000. Chem metabolic panel showing a potassium of 2.8, non-fasting glucose of 160, calcium of 8.3. AST of 80, ALT of 74, alk phos of 298. INR of 1.16, PTT is 19.4. Urine showed 30 mg/dL protein, trace of blood, leukocyte esterase large for which a specimen was sent for culture. Patient did have a chest x-ray done earlier today, it was read as no active disease, no significant change compared to prior exams. Patient had a Doppler ultrasound done of the lower extremities today, it was read as no sonographic evidence of DVT in the visualized segments of both lower extremities. An EKG was done today, it was read as normal sinus rhythm, left axis deviation, left ventricular hypertrophy with QRS widening, abnormal EKG. 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 PLAN: For this patient, after conversation with Dr. Puente, is to admit to the telemetry floor to replenish her electrolytes. After conversation with Dr. Hawkins, we will give a total of 4 K-riders, 2 were given in the emergency room and 2 extra 20 mEq K-riders were given here on the telemetry floor. We will add 20 mEq/liter of potassium to present IV of 75 mL an hour of normal saline. We will give diabetic diet. We will continue present medical regimen as described above. We will check her magnesium level in the a.m. We will continue her narcotic analgesics for her pain, with consult for Dr. Hawkins, Renal and Dr. Eastman, Pulmonary. Also for her skin, is the questionable early decubiti, we will refer to nursing for evaluation and treatment of this as indicated. The patient is a complex patient with a comprehensive medically necessary and appropriate visit carried out in excess of 90 minutes in time spent at the bedside, on the phone with Dr. Hawkins, emergency room doctors consult, discussion, along with orders being placed as above. Prognosis for this patient is guarded. Yosef Reis MD
[2017-11-11] MEDS: Sucralfate 1 gm/10 ml Oral Susp UD PO SCH ×2 (06:43→16:00)
[2017-11-11 07:06] LABS: ALB/GLOB RATIO 1.2 (1.1-1.8); ALBUMIN 3.4 g/dL (3.0-4.8); ALT/SGPT 72 U/L (7-56); AST/SGOT 84 U/L (14-36); BLOOD UREA NITROGEN 8 mg/dL (7-21); CALCIUM 8.2 mg/dL (8.4-10.5); GFR AFRICAN-AMERICAN > 60; GFR NON-AFRICAN AMERICAN > 60
[2017-11-11] MEDS: Arformoterol 15 mcg/2 ml Inh Sol IH SCH ×2 (07:43→19:19)
[2017-11-11] MEDS: Budesonide 0.25 mg/2 ml Inhal Susp UD IH SCH ×2 (07:45→19:19)
--- NOTE | 2017-11-11 07:47 | CP.PCM.CON ---
History of Present Illness - History of Present Illness History of Present Illness: Herminio Augustin DO, IM Resident PGY-1 Hematology/Oncology Consultation Note for Dr. Puente Ms. Ye is a 72 year old female with PMH of extensive small cell lung CA , DM2 who presented to Dr. Puente's clinic yesterday for a follow up visit. At that time, her pain was not controlled and her potassium was critically low. She was sent to the ED and recieved 2, 20 mEq riders in the ED and an additional 2 riders on the telemetry floor. She was also noted to have LE edema and doppler US performed in the ED were negative for DVT. This AM, Ms. Ye reports her pain is substantially improved, and that she slept well last night. She denies chest pain, SOB, cough, and nausea/ vomiting. Review of Systems - Review of Systems Review of Systems: A 12 point ROS was reviewed with patient and negative except as stated in HPI Past Patient History - Infectious Disease Hx of Infectious Diseases: None - Tetanus Immunizations Tetanus Immunization: Unknown - Past Medical History & Family History Past Medical History?: Yes - Past Social History Smoking Status: Former Smoker - CARDIAC Hx Cardiac Disorders: Yes Hx Circulatory Problems: Yes Hx Congestive Heart Failure: Yes Hx Hypercholesterolemia: Yes Hx Hypertension: Yes Hx Peripheral Edema: Yes (+2 pitting ble) - PULMONARY Hx Respiratory Disorders: Yes Hx Pneumonia: Yes Other/Comment: small cell lung ca - NEUROLOGICAL Hx Neurological Disorder: No - HEENT Hx HEENT Problems: Yes (eyeglases) - RENAL Hx Chronic Kidney Disease: No - ENDOCRINE/METABOLIC Hx Endocrine Disorders: Yes Hx Diabetes Mellitus Type 2: Yes - HEMATOLOGICAL/ONCOLOGICAL Hx Blood Disorders: Yes Hx AIDS: No Hx Anemia: Yes Hx Cancer: Yes (lung) Hx Chemotherapy: Yes Hx Metastesis: Yes (liver, bone,[spine & epidural mass]) Other/Comment: radiation markings to abd abd chest - INTEGUMENTARY Hx Dermatological Problems: Yes Other/Comment: SACRAL PRESSURE ULCER stg 2 1cm x 1cm wound bed is red/pink surounded by reddish skin optifoam intact, multiple purple and red skin discolorations to both legs and arms, thick long hard toenails, radiation markings to abd and chest - MUSCULOSKELETAL/RHEUMATOLOGICAL Hx Falls: Yes (past) - GASTROINTESTINAL Hx Gastrointestinal Disorders: Yes (constipation/ nausea) - GENITOURINARY/GYNECOLOGICAL Hx Genitourinary Disorders: Yes Hx Incontinence: Yes - PSYCHIATRIC Hx Substance Use: No - SURGICAL HISTORY Hx Surgeries: Yes Hx Appendectomy: Yes Hx Cardiac Catheterization: Yes Hx Joint Replacement: Yes (RIGHT TKR 10/2012) Other/Comment: knee replacement 2012 right, 2 c-sections, r cw pac - ANESTHESIA Hx Anesthesia Reactions: No Hx Malignant Hyperthermia: No Meds Allergies/Adverse Reactions: Allergies Allergy/AdvReac Type Severity Reaction Status Date / Time Sulfa (Sulfonamide Allergy ANAPHYLAXIS Verified 08/03/17 16:46 Antibiotics) - Medications Medications: Current Medications Alprazolam (Xanax) 0.25 mg PO BID KIMMY PRN Reason: Protocol Stop: 11/17/17 20:31 Last Admin: 11/10/17 21:41 Dose: 0.25 mg Arformoterol Tartrate (Brovana) 15 mcg IH [id number] [facility] Budesonide (Pulmicort Respules) 0.25 mg IH [id number] [facility] Docusate Sodium (Colace) 100 mg PO BID [facility] Last Admin: 11/10/17 21:41 Dose: Not Given Famotidine (Pepcid) 40 mg PO HS [facility] Last Admin: 11/10/17 21:40 Dose: 40 mg Potassium Chloride 20 meq/ (Sodium Chloride) 1,010 mls @ 75 mls/hr IV .[id number] [facility] Last Admin: 11/10/17 21:40 Dose: 75 mls/hr Insulin Human Regular (Humulin R Low) 0 units SC ACHS [facility] PRN Reason: Protocol Last Admin: 11/10/17 22:00 Dose: Not Given Losartan Potassium (Cozaar) 25 mg PO DAILY [facility] Montelukast Sodium (Singulair) 10 mg PO HS [facility] Last Admin: 11/10/17 21:41 Dose: 10 mg Morphine Sulfate (Morphine Extended Release Tab) 15 mg PO Q12 KIMMY Last Admin: 11/11/17 01:35 Dose: 15 mg Morphine Sulfate (Morphine Immediate Release Tab) 30 mg PO Q6 PRN PRN Reason: Pain, moderate (4-7) Last Admin: 11/11/17 04:44 Dose: 30 mg Ondansetron HCl (Zofran Odt) 4 mg PO Q8H PRN PRN Reason: Nausea/Vomiting Polyethylene Glycol (Miralax) 17 gm PO DAILY KIMMY Sucralfate (Carafate Oral Susp) 1 gm PO 0600,1600 KIMMY Last Admin: 11/11/17 06:43 Dose: 1 gm Zolpidem Tartrate (Ambien) 5 mg PO HS PRN; Protocol PRN Reason: Insomnia Last Admin: 11/11/17 02:56 Dose: 5 mg Physical Exam - Constitutional Additional comments: In general, Ms. Ye is pleasant, A/o x 3, comfortable and in no acute distress - Head Exam Head Exam: ATRAUMATIC, NORMAL INSPECTION, NORMOCEPHALIC - Eye Exam Eye Exam: Normal appearance, PERRL - ENT Exam ENT Exam: Mucous Membranes Moist - Neck Exam Neck exam: Positive for: Full Rom, Normal Inspection. Negative for: Tenderness , Thyromegaly - Respiratory Exam Respiratory Exam: Clear to Auscultation Bilateral, NORMAL BREATHING PATTERN. absent: Rales, Rhonchi, Wheezes - Cardiovascular Exam Cardiovascular Exam: REGULAR RHYTHM, RRR, +S1, +S2. absent: Diastolic murmur, Gallop, Rubs, Systolic Murmur - GI/Abdominal Exam GI & Abdominal Exam: Normal Bowel Sounds, Soft. absent: Guarding, Rebound - Extremities Exam Extremities exam: Positive for: joint swelling, normal capillary refill, pedal pulses present. Negative for: calf tenderness, pedal edema - Neurological Exam Neurological exam: Alert, Oriented x3 - Psychiatric Exam Psychiatric exam: Normal Affect, Normal Mood - Skin Skin Exam: Petechiae Additional comments: a few petechiae on the lower legs bilaterally. Mildly erythematous patches on the lower legs bilaterally are consistent with venous stasis dermatitis Results - Vital Signs Recent Vital Signs: Last Vital Signs Temp 98.5 F 11/11/17 06:00 Pulse 90 11/11/17 06:00 Resp 20 11/11/17 06:00 BP 144/85 11/11/17 06:00 Pulse Ox 96 11/11/17 06:00 - Labs Result Diagrams: 11/11/17 05:20 11/11/17 05:20 Labs: Laboratory Results - last 24 hr 11/10/17 11/10/17 11/11/17 15:45 21:46 05:20 WBC 4.8 RBC 2.87 L Hgb 9.2 L Hct 30.2 L MCV 105.2 H MCH 32.1 MCHC 30.5 L RDW 17.5 H Plt Count 136 MPV 10.1 Gran % 87.0 H Lymph % (Auto) 6.5 L Elk % (Auto) 6.5 H Eos % (Auto) 0.0 L Baso % (Auto) 0.0 Gran # 4.13 Lymph # (Auto) 0.3 L Elk # (Auto) 0.3 Eos # (Auto) 0.0 Baso # (Auto) 0.00 Sodium Potassium Chloride Carbon Dioxide Anion Gap BUN Creatinine Est GFR ( Amer) Est GFR (Non-Af Amer) POC Glucose (mg/dL) 174 H Random Glucose Calcium Magnesium Total Bilirubin AST ALT Alkaline Phosphatase Total Protein Albumin Globulin Albumin/Globulin Ratio Urine Color Light yellow Urine Appearance Cloudy Urine pH 7.0 Ur Specific [place] 1.010 Urine Protein 30 H Urine Glucose (UA) Negative Urine Ketones Negative Urine Blood Trace-intact H Urine Nitrate Negative Urine Bilirubin Negative Urine Urobilinogen 1.0 H Ur Leukocyte Esterase Large H Urine RBC 1 - 3 Urine WBC 10 - 15 Ur Epithelial Cells 3 - 4 Urine Bacteria Mod 11/11/17 05:20 WBC RBC Hgb Hct MCV MCH MCHC RDW Plt Count MPV Gran % Lymph % (Auto) Elk % (Auto) Eos % (Auto) Baso % (Auto) Gran # Lymph # (Auto) Elk # (Auto) Eos # (Auto) Baso # (Auto) Sodium 142 Potassium 4.0 Chloride 105 Carbon Dioxide 26 Anion Gap 14 BUN 8 Creatinine 0.4 L Est GFR ( Amer) > 60 Est GFR (Non-Af Amer) > 60 POC Glucose (mg/dL) Random Glucose 157 H Calcium 8.2 L Magnesium 1.9 Total Bilirubin 0.4 AST 84 H ALT 72 H Alkaline Phosphatase 292 H Total Protein 6.4 Albumin 3.4 Globulin 3.0 Albumin/Globulin Ratio 1.2 Urine Color Urine Appearance Urine pH Ur Specific [place] Urine Protein Urine Glucose (UA) Urine Ketones Urine Blood Urine Nitrate Urine Bilirubin Urine Urobilinogen Ur Leukocyte Esterase Urine RBC Urine WBC Ur Epithelial Cells Urine Bacteria Assessment & Plan - Assessment and Plan (Free Text) Assessment: Ms. Ye is a 72 year old female with PMH of extensive small cell lung CA and DM2 admitted for worsening pain and hypokalemia. As of this morning, her pain is greatly improved with the new medication regimen. She received 2 K riders in ED and another 2 on the telemetry floor. As of this morning, her hypokalemia has resolved but will need to continue to monitor closely. The plan at this point is for discharge later day. She is scheduled for chemotherapy infusion on Tuesday.
[2017-11-11] MEDS ORDERED: Arformoterol 15 mcg/2 ml Inh Sol IH SCH (08:00)
[2017-11-11] MEDS: Insulin Reg-LOW-Coverage SC SCH ×4 (08:00→22:31)
[2017-11-11] MEDS: POLYETHYLENE GLYCOL 3350 17 GM/Dose PACKET PO SCH ×2 (09:54→10:11)
--- NOTE | 2017-11-11 18:24 | CON ---
DATE: 11/11/2017 REASON FOR CONSULTATION: Dehydration, hypokalemia, hypernatremia. HISTORY OF PRESENT ILLNESS: A 72-year-old lady known to me from prior evaluations. The patient was sent to the Emergency Room yesterday by Dr. Puente because she was feeling weak, looked pale. In the Emergency Room, she was found to have a potassium of 2.8, sodium of 142. Consultation is requested for the hypokalemia. The patient was given aggressive IV resuscitation. She received 4 K-riders and also she is getting IV fluids normal saline with 20 mEq of KCl at 75. This morning, her potassium is 4. PAST MEDICAL AND SURGICAL HISTORY: Stage IV lung cancer with metastatic disease to the spine, liver, and retroperitoneal nodes; severe COPD; hypertension; NIDDM; SIADH; hyponatremia. FAMILY HISTORY: Noncontributory. SOCIAL HISTORY: Smoker. No alcohol use, no IV drug abuse. ALLERGIES: SULFA. MEDICATIONS AT HOME: Amlodipine 5, Ambien, potassium 20 mEq b.i.d., Protonix 40, Zofran 4 mg t.i.d., morphine, Singulair, losartan 50, Xyzal, Neurontin 100 t.i.d., famciclovir 500 t.i.d., and Xanax. REVIEW OF SYSTEMS: All systems are reviewed, pertinent positives as mentioned in the history of presenting illness, rest unremarkable. PHYSICAL EXAMINATION: GENERAL: Elderly lady sitting in bed, in no acute distress at this time. VITAL SIGNS: Blood pressure 147/75, heart rate 85, respiratory rate 20, temperature 98.1. HEENT: Normocephalic, atraumatic, positive pallor. NECK: Supple, no JVD. LUNGS: Bilateral equal air entry, bilateral rhonchi, no rales. CARDIAC: S1 and S2, regular rate and rhythm, no murmur, no rub. ABDOMEN: Obese, distended, soft, nontender, bowel sounds present. EXTREMITIES: Trace lower extremity edema. INTAKE AND OUTPUT: 2900/250. LABORATORY DATA: WBC 4.8, hemoglobin 9.2, hematocrit 30, platelets 136. Sodium 142, potassium 4, chloride 105, CO2 of 26, BUN 8, creatinine 0.4, glucose 157, calcium 8.2, magnesium 1.9. AST 84, ALT 72, albumin 3.4. Urinalysis: Light yellow, cloudy, pH 7, specific gravity 1.01, protein 30, blood trace, leukocyte esterase large. Urine culture, gram-negative teresa. ASSESSMENT: 1. Hypokalemia, resolved. 2. Dehydration, much improved clinically. 3. Gram-negative urinary tract infection. 4. Stage IV lung cancer with bone metastasis, spine metastasis, retroperitoneal metastasis. 5. Tnv-[id number]-[id number] diabetes mellitus. 6. Hypertension. 7. History of syndrome of inappropriate antidiuretic hormone secretion in the past. PLAN: 1. Continue IV fluids for one more day. 2. Follow up sensitivity and culture. 3. Agree with empiric antibiotics. 4. Continue fingerstick monitoring and insulin coverage. 5. Continue current antihypertensives. Dana Hawkins MD
[2017-11-11] MEDS: Meropenem IV 1 gm in NS 50 ML IVPB SCH (22:13)
[2017-11-12] MEDS: Morphine 15 mg Immediate Release Tab PO PRN ×3 (01:20→21:06)
--- NOTE | 2017-11-12 01:25 | CON ---
DATE: 11/11/2017 PULMONARY CONSULTATION REFERRING PHYSICIAN: Yosef Reis MD REASON FOR CONSULTATION: Chronic lung disease, metastatic lung cancer. HISTORY OF PRESENT ILLNESS: This is a 72-year-old female well known to me from previous admission with multiple medical issue including chronic obstructive lung disease, metastatic small cell lung cancer which is extensive disease with mets to the spine, may have sleep apnea syndrome, has mets to the spine with instability requiring radiation, also has diabetes, hypertension, obesity, ADL dysfunction, GERD, been on chemo and radiation therapy, last chemo was about a month ago or so, admitted for further workup. Presently lying in the bed. Has some cough and shortness of breath. No chest pain. No nausea, no vomiting. No leg pain or leg swelling. PAST MEDICAL HISTORY: As per history of present illness. ALLERGIES: SULFA. SOCIAL HISTORY: Stopped smoking. Denies any alcohol or drugs. FAMILY HISTORY: Significant cardiopulmonary disease reported. MEDICATIONS: She is on Ambien 5 mg at bedtime p.r.n., Brovana inhaled twice a day, Carafate 1 g twice a day, Colace 100 mg twice a day, Cozaar 25 mg daily, insulin coverage, MiraLax 17 g p.o. daily, morphine extended release 50 mg every 12 hours slow release, also morphine immediate release 30 mg every 6 hours p.r.n., Pepcid 40 mg daily, IV fluid with potassium 75 mL per hour, Singulair 10 mg daily, Xanax 0.25 mg four times a day p.r.n., Zofran p.r.n. basis. REVIEW OF SYSTEMS: No headache, no rhinitis. Has some cough and shortness of breath. No chest pain. No nausea, no dysuria. No leg pain or leg swelling. PHYSICAL EXAMINATION: GENERAL: No acute distress. VITAL SIGNS: Temperature is 98, heart rate is 85, respiratory rate is 20, blood pressure 147/75, pulse of 97% room air. HEENT: Moist mucous membrane. Crowded airway. Mallampati score is 4. NECK: Supple. No JVD. LUNGS: Have a few scattered rhonchi. HEART: S1 and S2. ABDOMEN: Soft, nontender. No organomegaly. EXTREMITIES: No edema. NEUROLOGICAL: Awake and alert. Follows simple commands. LABORATORY DATA: Shows hemoglobin 9.2, hematocrit 30.2, WBC 4.8, platelet is 136. INR 1.16. PTT is 19. Sodium 142, potassium 4, chloride 105, bicarbonate 20, BUN 8, creatinine 0.4, glucose 157, calcium 8.2, total bili 0.4, AST 84, ALT 72, alk phos is 292. Albumin is 3.4. Microbiology, urine culture has Gram-negative teresa. Chest x-ray done shows there is no acute changes compared to previous x-rays. IMPRESSION AND PLAN: Small cell lung cancer which is extensive disease involving the spine, chronic obstructive lung disease, suspected sleep apnea syndrome, diabetes, urinary tract infection, I believe in the past she had extended-spectrum beta-lactamase organism. Agree with present management. Continue bronchodilator. Keep head at 45 degrees. Gastric prophylaxis, deep venous thrombosis prophylaxis. Urinalysis shows wbc 10 to 15 with large leukocyte esterase. We will start her on antibiotics. Patient has suspected sleep apnea syndrome and refused continuous positive airway pressure use understanding risk. Thank you and we will follow with you. Robert Eastman MD
[2017-11-12] MEDS ORDERED: Morphine 2 mg/2 mL syringe IVP ONE (03:52)
[2017-11-12] MEDS: Sucralfate 1 gm/10 ml Oral Susp UD PO SCH ×2 (05:35→17:34)
[2017-11-12] MEDS: Budesonide 0.25 mg/2 ml Inhal Susp UD IH SCH ×2 (07:34→19:59)
[2017-11-12] MEDS: Arformoterol 15 mcg/2 ml Inh Sol IH SCH ×2 (07:34→19:59)
[2017-11-12 08:13] LABS: HEMOGLOBIN 9.6 g/dL (12.0-16.0); MEAN CELL VOLUME 110.8 fl (80.0-105.0); RBC 2.86 10^6/uL (3.5-6.1); WHITE BLOOD COUNT 3.7 10^3/ul (4.5-11.0)
[2017-11-12 08:14] LABS: EOS % 0.3 % (1.5-5.0); GRAN # 3.21 (1.4-6.5); GRAN % 85.8 % (50.0-68.0); LYMPH # 0.2 (1.2-3.4); LYMPH % 6.1 % (22.0-35.0); MEAN CORPUSCULAR HEMOGLOBIN 33.6 pg (25.0-35.0); MEAN CORPUSCULAR HGB CONC 30.3 g/dl (31.0-37.0); MEAN PLATELET VOLUME 10.6 fl (7.0-11.0); MONO # 0.3 (0.1-0.6); MONO % 7.8 % (1.0-6.0); RED CELL DISTRIBUTION WIDTH 17.6 % (11.5-14.5)
[2017-11-12 08:30] LABS: ALB/GLOB RATIO 1.1 (1.1-1.8); ALBUMIN 3.5 g/dL (3.0-4.8); ALT/SGPT 71 U/L (7-56); AST/SGOT 74 U/L (14-36); BLOOD UREA NITROGEN 6 mg/dL (7-21); CALCIUM 8.5 mg/dL (8.4-10.5); GFR AFRICAN-AMERICAN > 60; GFR NON-AFRICAN AMERICAN > 60
[2017-11-12] MEDS: Insulin Reg-LOW-Coverage SC SCH ×4 (08:39→21:36)
[2017-11-12] MEDS: Meropenem IV 1 gm in NS 50 ML IVPB SCH (09:34)
[2017-11-12] MEDS: Morphine 15 mg SR Tab PO SCH ×2 (09:34→21:04)
[2017-11-12] MEDS: POLYETHYLENE GLYCOL 3350 17 GM/Dose PACKET PO SCH ×2 (09:35→11:00)
--- NOTE | 2017-11-12 13:09 | PN ---
DATE: 11/12/2017 This is [facility] visit on the medical floor. For Dr. Puente. SUBJECTIVE: The patient is a 72-year-old female, sitting up in bed. Admitted for severe electrolyte imbalance with a potassium noted to be 2.8 with severe weakness. With this, the patient is now feeling better after treatment was begun with potassium replenishment and visits with Dr. Hawkins and Dr. Eastman with good effect. However, she is still significantly weak and is reporting that her anxiety medication was not given in a proper dose as her medications on admission were not reported accurately, she reports. With this, we will make adjustments as indicated. Otherwise, she is resting comfortably and in anticipation of discharge home once she is stable. She is recommended to continue her chemotherapy and radiation once she is stable. OBJECTIVE PHYSICAL EXAMINATION: VITAL SIGNS: Temperature 97.5, pulse 83, respirations 20, blood pressure 159/78, pulse ox 96%. Weight 154 pounds, height 5 feet 3 inches tall. HEENT: Unremarkable with hair loss status post chemotherapy noted. NECK: Supple. HEART: Regular rate. LUNGS: Rare rhonchi. ABDOMEN: Obese, soft, nontender. EXTREMITIES: No edema this visit. SKIN: Warm and dry. NEUROLOGIC: Awake and alert. SKIN: decubitus changes to her sacrum, which is being addressed. LABORATORY DATA: The patient's labs were done. White blood cell count of 3.7, hemoglobin 9.6, hematocrit 31.7, platelet count of 121,000 with chem metabolic panel showing a potassium now corrected to 4.2. Her nonfasting glucose is 173. AST of 74, ALT of 71 with an improvement of her potassium on admission of 2.8. Her urine specimen shows large amount of leukocyte esterase with her urine showing Proteus mirabilis. An ultrasound of her lower extremities was done was negative for DVT. ASSESSMENT: The assessment for this patient is that of severe electrolyte imbalance, hypokalemia, dehydration, stage IV lung cancer, bony metastasis, spine metastasis, retroperitoneal metastasis, [id number] diabetes mellitus, hypertension, deconditioning, syndrome of inappropriate antidiuretic hormone history, obesity, anxiety, history of smoking, anemia of chronic disease, peripheral vascular disease, gait disturbance, chronic obstructive pulmonary disease, intractable pain of cancer. PLAN: Plan for this patient after conversation with Dr. Puente is to continue present medical regimen with consideration for discharge home once she is stable with continuation of the present medical regimen as per Dr. Hawkisn, Dr. Eastman. Also, telemetry was discontinued as her electrolytes have corrected. We will monitor clinically and with labs. This is a complex patient with a comprehensive medically necessary and appropriate visit carried out in excess of 20 minutes with the patient's testing reviewed as above and discussions held with the patient along with the nursing staff as indicated. Yosef Reis MD
--- NOTE | 2017-11-12 13:22 | PN ---
DATE: 11/12/2017 SUBJECTIVE: The patient is currently seen lying comfortable in bed on 3R. She is receiving IV antibiotics for a suspected UTI. Her urine cultures are positive for gram-negative rods. Her potassium level had corrected with IV fluid hydration, potassium supplements. MEDICATIONS: Medication list reviewed. The patient is on Ambien, Brovana, Carafate, Colace, Cozaar, insulin, meropenem, MiraLax, morphine p.r.n., Pepcid, Pulmicort Respules, Singulair, Xanax and Zofran. OBJECTIVE: INTAKE/OUTPUT: Intake is 2030, output is 2300. VITAL SIGNS: Blood pressure 143-159 systolic, diastolic 73-78. Temperature 97.5, respiratory rate 20 with a pulse of 83, oxygen saturation on pulse ox is 96%. HEENT: Shows her to be normocephalic, atraumatic. Conjunctivae are pale. Sclerae are nonicteric. NECK: Supple. No neck vein distention. CHEST: Clear to auscultation and percussion with no rales, rhonchi or wheezing. CARDIOVASCULAR: Shows a regular rate and rhythm without audible murmurs, rubs or gallops. ABDOMEN: Soft. Bowel sounds normal. No rebound, guarding or masses. EXTREMITIES: Show no significant lower extremity edema. No cyanosis or clubbing. LABORATORY DATA AND IMAGING: CBC: White blood cell count today down to 3.7, hemoglobin stable at 9.6, platelet count is 121,000. Chemistries showed normal electrolytes. Potassium has risen from 2.8-4.2. BUN 6 with a creatinine of 0.4. Sodium is excellent at 145. Glucose is 182. Mild elevation of liver enzymes. Urines show 10-15 white blood cells per high-power field with trace protein. Microbiology: Urine cultures are positive for gram-negative rods. Blood cultures are negative at 24 hours. ASSESSMENT: 1. Hypokalemia, resolved with supplements. Magnesium level is normal. There appears to be no further issue with this. 2. Status post mild dehydration. This has improved with hydration. 3. Gram-negative urinary tract infection, on empiric antibiotic therapy. 4. History of metastatic lung cancer with bone mets and retroperitoneal metastasis with lymph nodes. The patient followed closely by Oncology. 5. History of noninsulin-dependent diabetes mellitus. This appears to be diet controlled. 6. History of hypertension. Blood pressure control is acceptable. 7. Past history of syndrome of inappropriate antidiuretic hormone. Sodium is presently normal at 145. PLAN: 1. The patient is entirely stable from a renal standpoint. 2. Await final blood cultures and adjustment of antibiotics pending the culture. 3. Continue to monitor labs on a routine basis. 4. The patient is stable from a renal standpoint. Delta Riley MD
--- NOTE | 2017-11-12 15:05 | CON ---
DATE: 11/12/2017 LOCATION: The patient is seen earlier today in room 360. CHIEF COMPLAINT: Lower extremity edema times several days. HISTORY OF PRESENT ILLNESS: This is a 72-year-old female with history of diabetes mellitus, hypertension, depression, low back pain and history of stage IV lung cancer with mets to the spine and liver and retroperitoneal adenopathy and history of ESBL Klebsiella and Proteus urinary tract infection, was recently in the hospital for right lower lobe healthcare-associated pneumonia. The patient was admitted through the emergency room because of weakness, fatigue and lower extremity edema. The patient denies any fevers and chills. No nausea. No vomiting. She does have mild shortness of breath, but no diarrhea or constipation. No bright red blood per rectum. No melena. REVIEW OF SYSTEMS: A 12-point review of systems is performed. PAST MEDICAL HISTORY: Significant for lung cancer, which is stage IV lung cancer with mets to the spine and liver and retroperitoneal adenopathy and hypertension, diabetes, depression, low back pain, recently healthcare-associated pneumonia, urinary tract infection with Proteus and ESBL Klebsiella and stage III decubitus ulcer. PAST SURGICAL HISTORY: Significant for cardiac catheterization. The patient with a Port-A-Cath and right knee replacement. ALLERGIES: THE PATIENT IS ALLERGIC TO SULFA. MEDICATIONS AT HOME: Reveals potassium and morphine and Xanax. PHYSICAL EXAMINATION: GENERAL: The patient is in bed, appearing weak and chronically ill and debilitated. VITAL SIGNS: Temperature is 97.5, heart rate of 95, respiratory rate of 20, blood pressure is 150/70. The patient's O2 saturation is 96%, was down to 93%. HEENT: Examination of HEENT is unremarkable. NECK: Supple. LUNGS: Have decreased breath sounds. HEART: Normal S1, S2. ABDOMEN: Soft. Nontender. EXTREMITIES: Examination of lower extremity, no evidence of infection. There is mild edema. LABORATORY DATA: Laboratory examination reveals a white count of 3.7, hemoglobin of 9, MCV is 110, platelets of 121. Differential is noted at 85% granulocytosis. Chemistries reveals a BUN of 6, creatinine of 0.4, AST 74, ALT 71, alk phos is 302. Urinalysis is noted, 10-15 wbc's with moderate bacteria, large leukocyte esterase and negative nitrites. Blood cultures and urine cultures have been sent and reported to be negative. The patient does have a gram-negative teresa in the urine. ASSESSMENT AND PLAN: A 72-year-old female with weakness and fatigue. No specific urinary tract symptoms. History of extended-spectrum beta-lactamase Klebsiella and Proteus, history of diabetes, hypertension, stage IV lung cancer. Admitted with leukopenia, tachycardia and gram-negative teresa. #1 is sepsis with gram-negative teresa in the urine as the source with bilateral lower extremity edema. We currently started on meropenem. Blood cultures are negative. We will check on the identification of gram-negative teresa and we will make further recommendations regarding duration of the antibiotics once the identification and sensitivity is available. Jorge Luis Hernandez MD
--- NOTE | 2017-11-12 19:45 | PN ---
DATE: 10/13/2017 PULMONARY PROGRESS NOTE REFERRING PHYSICIAN: Yosef Reis MD SUBJECTIVE: She is lying in the bed at 45 degrees. Family at bedside. Night was unremarkable. Feels better. Decreased cough and shortness breath. No nausea, no vomiting, no diarrhea. No leg pain or leg swelling. OBJECTIVE: GENERAL: In no distress. VITAL SIGNS: Temperature is 98, heart rate 83, respiratory rate is 20, blood pressure 159/78, pulse ox 96% room air. HEENT: Moist mucous membranes. Crowded airway. NECK: Supple. No JVD. LUNGS: Have a few scattered rhonchi. HEART: S1 and S2. ABDOMEN: Soft, nontender. No organomegaly. EXTREMITIES: No edema. NEUROLOGIC: Awake and alert. Follows simple command. MEDICATIONS: She is on Ambien 5 mg at bedtime p.r.n., Brovana inhaled twice a day, Carafate 1 g twice a day, Colace 100 mg twice day, Cozaar 25 mg daily, insulin coverage, meropenem 1 g IV every 12 hours, MiraLax 17 g daily, morphine extended release 15 mg every 12 hours, morphine immediate release 30 mg every 6 hours p.r.n., Pepcid 40 mg daily, Pulmicort inhaled twice a day, Singulair 10 mg daily, Xanax 0.5 mg four times p.r.n., Zofran p.r.n. basis. LABORATORY DATA: Shows hemoglobin 9.6, hematocrit 31.7, WBC 3.7, platelet is 121. Sodium 145, potassium 4.5, chloride 105, bicarbonate is 31, BUN 6, creatinine 0.4, glucose 182, calcium is 8.5, AST 74, ALT 71, alk phos is 3.2. Albumin is 3.5. Microbiology, urine culture has Proteus mirabilis which is a sensitive organism. IMPRESSION AND PLAN: Small cell lung cancer which is extensive disease involving the spine, also chronic obstructive lung disease, suspected sleep apnea syndrome, diabetes, urinary tract infection with Procrit Proteus mirabilis. Pulmonary point of view, doing much better. We will continue inhaled bronchodilator, we will de-escalate antibiotics therapy. Gastric prophylaxis and deep venous thrombosis prophylaxis. We will recommend outpatient pulmonary function tests and sleep study. Thank you and we will follow with you. Robert Eastman MD [facility] # [id number]
[2017-11-12] MEDS: Amoxicillin-Clav 875-125 mg Tab PO SCH (21:04)
[2017-11-13] MEDS: Morphine 15 mg Immediate Release Tab PO PRN ×2 (03:09→11:56)
[2017-11-13] MEDS: Sucralfate 1 gm/10 ml Oral Susp UD PO SCH ×2 (05:51→16:59)
[2017-11-13] MEDS: Arformoterol 15 mcg/2 ml Inh Sol IH SCH (07:42)
[2017-11-13] MEDS: Budesonide 0.25 mg/2 ml Inhal Susp UD IH SCH (07:42)
[2017-11-13] MEDS: Insulin Reg-LOW-Coverage SC SCH ×2 (08:43→11:56)
[2017-11-13] MEDS: Morphine 15 mg SR Tab PO SCH (09:14)
[2017-11-13] MEDS: Amoxicillin-Clav 875-125 mg Tab PO SCH (09:14)
[2017-11-13] MEDS: POLYETHYLENE GLYCOL 3350 17 GM/Dose PACKET PO SCH (09:15)
[2017-11-13 13:10] LABS: BASO # 0.01 K/mm3 (0.0-2.0); BASO % 0.3 % (0.0-3.0); EOS % 0.3 % (1.5-5.0); GRAN # 3.16 (1.4-6.5); GRAN % 86.5 % (50.0-68.0); HEMOGLOBIN 9.7 g/dL (12.0-16.0); LYMPH # 0.2 (1.2-3.4); LYMPH % 6.3 % (22.0-35.0); MEAN CELL VOLUME 106.6 fl (80.0-105.0); MEAN CORPUSCULAR HEMOGLOBIN 32.1 pg (25.0-35.0); MEAN CORPUSCULAR HGB CONC 30.1 g/dl (31.0-37.0); MEAN PLATELET VOLUME 9.7 fl (7.0-11.0); MONO # 0.2 (0.1-0.6); MONO % 6.6 % (1.0-6.0); RBC 3.02 10^6/uL (3.5-6.1); WHITE BLOOD COUNT 3.7 10^3/ul (4.5-11.0)
[2017-11-13 13:25] LABS: ALB/GLOB RATIO 1.1 (1.1-1.8); ALBUMIN 3.8 g/dL (3.0-4.8); ALT/SGPT 74 U/L (7-56); AST/SGOT 87 U/L (14-36); BLOOD UREA NITROGEN 10 mg/dL (7-21); GFR AFRICAN-AMERICAN > 60; GFR NON-AFRICAN AMERICAN > 60
--- NOTE | 2017-11-13 14:15 | PN ---
DATE: 11/13/2017 PULMONARY PROGRESS NOTE REFERRING PHYSICIAN: Yosef Reis MD SUBJECTIVE: The patient is lying in the bed, head at 45 degrees. Night was unremarkable. No headache. No rhinitis. Breathing is okay. No nausea. No vomiting. No diarrhea. No leg pain or leg swelling. OBJECTIVE: GENERAL: In no acute distress. VITAL SIGNS: Temperature is 98, heart rate is 84, respiratory rate is 18, blood pressure 143/55, pulse ox 95% on room air. HEENT: Moist mucous membrane. Crowded airway. Mallampati score of 4. NECK: Supple. No JVD. LUNGS: Have a few scattered rhonchi, overall fair airflow. HEART: S1 and S2. ABDOMEN: Soft, nontender. No organomegaly. EXTREMITIES: There is no edema. NEUROLOGICAL: Awake and alert. Follows simple command. MEDICATIONS: She is on Ambien 5 mg at bedtime p.r.n., Augmentin 875 one tablet twice a day, Brovana inhaled twice a day, Carafate 1 g twice a day, Colace 100 mg twice a day, Cozaar 25 mg daily, insulin coverage, MiraLax 17 g daily, morphine extended release 15 mg every 12 hours, morphine immediate release 30 mg every 6 hours p.r.n., Pepcid 40 mg daily, Pulmicort inhaled twice a day, Singulair 10 mg daily, Xanax 0.5 mg q.i.d. p.r.n., Zofran p.r.n. basis. LABORATORY DATA: Reviewed and noted no new lab is available since yesterday. Urine culture has Proteus mirabilis. IMPRESSION AND PLAN: Small cell lung cancer with extensive disease, metastases to the spine and bones, requiring radiation, been on chemotherapy. Also have a chronic lung disease, anemia, urinary tract infection, ADL dysfunction. There maybe component of sleep apnea syndrome. Spoke to nursing staff. May go home on Augmentin in another 5 days. Gastric prophylaxis. Continue home inhaled bronchodilator. Recommended attended sleep study and PFT as outpatient. Fall precaution. Thank you and we will follow with you. Robert Eastman MD
--- NOTE | 2017-11-13 14:41 | PN ---
DATE: 11/13/2017 SUBJECTIVE: The patient is in bed, in no acute distress, nontoxic. PHYSICAL EXAMINATION: VITAL SIGNS: The patient's temperature of 98, blood pressure is 140/50, respiratory rate of 18, heart rate of 84. HEENT: Unremarkable. NECK: Supple. LUNGS: Have decreased breath sounds. HEART: Normal S1, S2. ABDOMINAL: Soft, nontender. LABORATORY EXAMINATION: Reveals a white count of 3.7, hemoglobin of 9, platelets of 112. Chemistries reveals a BUN of 10, creatinine of 0.5. Urinalysis is noted with 10 to 15 wbc's. Microbiology reveals a Proteus mirabilis that is pansensitive. ASSESSMENT AND PLAN: A 72-year-old female seen earlier today in room 360, bed 1 with past medical history of diabetes, hypertension, depression, chronic low back pain, history of stage IV lung cancer with metastases to the spine and liver and retroperitoneal adenopathy with a history of extended-spectrum beta-lactamase, Klebsiella and Proteus urinary tract infection and recently hospitalized, now admitted with leukopenia, tachycardia. 1. Sepsis secondary to Proteus mirabilis, urine as the source and maybe able to switch to p.o. antibiotic ampicillin upon discharge to complete short course of therapy. Blood cultures are reported to be negative. We will follow with you. Overall prognosis is poor. Jorge Luis Hernandez MD
[2017-11-13] MEDS ORDERED: Amoxicillin-Clav 875-125 mg Tab PO ONE (15:35)
[2017-11-13] MEDS ORDERED: Morphine 15 mg SR Tab PO ONE (15:35)
[2017-11-13] MEDS ORDERED: Morphine 15 mg Immediate Release Tab PO ONE (15:54)
[2017-11-13 17:24] VITALS: BP 151/90; PULSE 96; RESP 20; TEMP 98.6; O2SAT 92
--- NOTE | 2017-11-13 18:04 | DS ---
This is Maria Elena Ye's discharge summary from the medical floor. For Dr. Puente. SUBJECTIVE: The patient is a 72-year-old female, admitted earlier this week for severe electrolyte imbalance with a potassium of 2.8 with severe weakness. The patient is now feeling better after a supplemental potassium was given in the form of K-riders and IV potassium as per Dr. Hawkins, Renal cruise consultant. With this, the patient is now feeling stronger; however, she continues to have severe pain, for which narcotic analgesics are needed and is anxious in anticipation of her discharge home later today as she is to restart her radiation and therapy tomorrow morning as an outpatient; however, she appears to be stable and is also being treated now for urinary tract infection initially with meropenem and now with Augmentin 875 twice a day for [address] Eastman and Dr. Hernandez's recommendations. Her potassium today is 4.5. Also, a barium swallow was recommended; however, this will be done as an outpatient for evaluation of her swallowing ability as it is not done on the weekend. The patient is otherwise in no acute distress. The patient is also known to suffer from stage IV lung cancer with bony metastasis, spinal metastasis, retroperitoneal metastasis, she is insulin-dependent diabetic and has COPD. OBJECTIVE PHYSICAL EXAMINATION: VITAL SIGNS: Temperature 98, pulse 84, respirations 18, blood pressure 143/55, pulse ox 95%. HEENT: Tongue is moist. NECK: Supple. LUNGS: Rare rhonchi. HEART: Regular rate. ABDOMEN: Obese, soft, nontender. EXTREMITIES: No edema. NEUROLOGIC: Awake and alert. LABORATORY DATA: The patient's labs were done. This afternoon, a white blood cell count of 3.7, hemoglobin 9.7, hematocrit of 33.2, platelet count of 112,000 with a chem metabolic panel with a potassium of 4.5 today with an AST of 87, ALT of 74 with an otherwise normal chem metabolic panel. The patient did have a urine culture growing out Proteus mirabilis done on 11/10/2017 with negative blood cultures. The Proteus was sensitive to ampicillin, which will be changed to amoxicillin with clavulanic acid as per cruise consultant's recommendations in which she will be discharged home with this. ASSESSMENT: The assessment of this patient is that of severe hypokalemia, now corrected; stage IV cancer of the lung with metastasis to the liver, spine, retroperitoneal nodes; Proteus infection of the urine; now being treated; diabetes mellitus; hypertension; depression; chronic low back pain; obesity with sepsis secondary to the Proteus infection; anxiety; intractable pain of cancer; dehydration; syndrome of inappropriate antidiuretic hormone history; history of smoking; anemia of chronic disease; peripheral vascular disease; gait disturbance. PLAN: Plan for this patient after conservation with Dr. Puente and Dr. Hernandez is to discharge the patient home today on her present medical regimen, which includes Ambien, Brovana, Carafate, Colace, Cozaar, MiraLax, morphine extended release, morphine immediate release, Pepcid, Pulmicort, Singulair, Xanax, Zofran. We will also give her Augmentin 875 one twice a day for 5 days. She is also recommended to check her fingerstick blood sugars at home as indicated. The plan for this patient is for her to return to the Radiation/Oncology department for her radiation treatment tomorrow morning with her afternoon to be spent in the outpatient Oncology Clinic receiving chemotherapy as per Dr. Puente's protocols. The prognosis for this patient is guarded. Her diet is consistent carbohydrate modified diet and a barium swallow esophagram will be ordered as an outpatient for completeness of her recommendations at this hospital visit. This is a complex patient with a comprehensive medically necessary and appropriate visit carried out in excess of 50 minutes with arrangements made for the patient to be discharged later today with her medicines prescriptions arranged for the followup tomorrow as reported above. Yosef Reis MD
== END 2017-11-13 17:49 | disposition home or self-care (01) | DRG 641 ==
LOC: ED 11:28 → ERH 15:07 → 2RNO 16:44 → 3RNO 11-11 22:47
PROVIDERS: ADMIT Family Medicine; ATTEND Family Medicine
DX: E87.6 Hypokalemia (principal); C79.51 Secondary malignant neoplasm of bone; C77.2 Secondary and unspecified malignant neoplasm of intra-abdominal lymph nodes; C34.90 Malignant neoplasm of unspecified part of unspecified bronchus or lung; C78.7 Secondary malignant neoplasm of liver and intrahepatic bile duct; D61.818 Other pancytopenia; N39.0 Urinary tract infection, site not specified; E86.0 Dehydration; J44.9 Chronic obstructive pulmonary disease, unspecified; E11.51 Type 2 diabetes mellitus with diabetic peripheral angiopathy without gangrene; D63.8 Anemia in other chronic diseases classified elsewhere; G89.3 Neoplasm related pain (acute) (chronic); K21.9 Gastro-esophageal reflux disease without esophagitis; I11.0 Hypertensive heart disease with heart failure; I50.9 Heart failure, unspecified; L89.152 Pressure ulcer of sacral region, stage 2; E87.0 Hyperosmolality and hypernatremia; E78.00 Pure hypercholesterolemia, unspecified; R26.81 Unsteadiness on feet; F17.200 Nicotine dependence, unspecified, uncomplicated; K59.00 Constipation, unspecified; G47.00 Insomnia, unspecified; B96.4 Proteus (mirabilis) (morganii) as the cause of diseases classified elsewhere; F41.9 Anxiety disorder, unspecified; F32.9 Major depressive disorder, single episode, unspecified; Z96.651 Presence of right artificial knee joint; Z87.01 Personal history of pneumonia (recurrent); Z88.2 Allergy status to sulfonamides

== ENCOUNTER 2017-11-21 13:36 | Inpatient (IN) | payer MEDICARE, OTHER ==
[2017-11-21 13:36] VITALS: BMI 26.0
--- NOTE | 2017-11-21 14:31 | ED PDOC ---
Arrival/HPI - General Chief Complaint: Chest Pain Time Seen by Provider: 11/21/17 13:44 Historian: Patient - History of Present Illness Narrative History of Present Illness (Text): 11/21/17 14:26 A 72 year old female, whose past medical history includes Stage 4 lung CA with metastases to the liver and bone, chronic obstructive pulmonary disease, presents to the emergency department with complaint of generalized weakness, right sided chest pain and labored breathing this morning. The patient states that she began to feel the chest pressure at around 6 AM today. She states that her last chemotherapy treatment was yesterday. The patient denies fevers, chills , headache, dizziness, sore throat, cough, dyspnea on exertion, abdominal pain, nausea, vomiting, diarrhea, neck/back pain, urinary/bowel changes or any other complaint. PMD: Dr. Leiva/ Dr. Jarrett Radiology/ Oncology: Dr. Goyal Nephrology: Dr. Hawkins Time/Duration: Other (Today) Symptom Onset: Sudden Symptom Course: Unchanged Activities at Onset: Rest, Light Context: Home Past Medical History - Provider Review Nursing Documentation Reviewed: Yes - Infectious Disease Hx of Infectious Diseases: None - Tetanus Immunization Tetanus Immunization: Unknown - Cardiac Hx Hypertension: Yes - Pulmonary Hx Respiratory Disorders: Yes Hx Pneumonia: Yes Other/Comment: small cell lung ca - Neurological Hx Neurological Disorder: No - HEENT Hx HEENT Disorder: Yes (eyeglases) - Renal Hx Renal Disorder: No - Endocrine/Metabolic Hx Diabetes Mellitus Type 2: Yes - Hematological/Oncological Hx Blood Disorders: Yes Hx Anemia: Yes Hx Cancer: Yes (lung) Hx Chemotherapy: Yes (Last Tx 11/20/17) Hx Metastasis: Yes (liver, bone,[spine & epidural mass]) Other/Comment: radiation markings to abd abd chest - Integumentary Hx Dermatological Disorder: Yes Other/Comment: SACRAL PRESSURE ULCER stg 2 1cm x 1cm wound bed is red/pink surounded by reddish skin optifoam intact, multiple purple and red skin discolorations to both legs and arms, thick long hard toenails, radiation markings to abd and chest - Musculoskeletal/Rheumatological Hx Falls: Yes (past) - Gastrointestinal Hx Gastrointestinal Disorders: Yes (constipation/ nausea) - Genitourinary/Gynecological Hx Genitourinary Disorders: Yes Hx Incontinence: Yes - Psychiatric Hx Psychophysiologic Disorder: Yes Hx Anxiety: Yes Hx Depression: Yes Hx Substance Use: No - Surgical History Hx Appendectomy: Yes Hx Cardiac Catheterization: Yes Hx Joint Replacement: Yes (RIGHT TKR 10/2012) Other/Comment: knee replacement 2012 right, 2 c-sections, r cw pac - Anesthesia Hx Anesthesia Reactions: No Hx Malignant Hyperthermia: No Family/Social History - Physician Review Nursing Documentation Reviewed: Yes Family/Social History: No Known Family HX Smoking Status: Former Smoker Hx Alcohol Use: No Hx Substance Use: No Allergies/Home Meds Allergies/Adverse Reactions: Allergies Sulfa (Sulfonamide Antibiotics) Allergy (Verified 11/21/17 14:19) ANAPHYLAXIS Home Medications: Home Meds Medication Instructions Recorded Confirmed Potassium Chloride [K-Dur 20 mEq 20 meq PO BID 09/13/17 11/15/17 ER Tab] Alprazolam [Xanax] 5 mg PO HS 11/10/17 11/15/17 Gabapentin [Neurontin] 100 mg PO TID 11/10/17 11/15/17 Levocetirizine Dihydrochloride 5 mg PO DAILY 11/10/17 11/15/17 [Xyzal] Morphine Sulfate [Ms Contin] 15 mg PO Q6 11/10/17 11/15/17 Morphine [Morphine Immediate 15 mg PO Q6 11/10/17 11/15/17 Release Tab] Ondansetron [Zofran Tab] 4 mg PO TID PRN 11/10/17 11/15/17 Pantoprazole [Protonix EC Tab] 40 mg PO QAM 11/10/17 11/15/17 Zolpidem [Ambien] 5 mg PO HS PRN 11/10/17 11/15/17 Review of Systems - Physician Review All systems were reviewed & negative as marked: Yes - Review of Systems Constitutional: Other (Generalized weakness. ). absent: Fevers, Night Sweats ENT: absent: Sore Throat Respiratory: SOB (Labored breathing) Cardiovascular: Chest Pain (Right sided chest pain). absent: BARBA Gastrointestinal: absent: Abdominal Pain, Stool Changes, Diarrhea, Nausea, Vomiting Genitourinary Female: absent: Urine Output Changes Musculoskeletal: absent: Back Pain, Neck Pain Neurological: absent: Headache, Dizziness Physical Exam Vital Signs Reviewed: Yes Vital Signs Temp Pulse Resp BP Pulse Ox 11/21/17 16:30 90 17 132/75 96 11/21/17 14:16 97.6 F 89 18 121/67 96 Temperature: Afebrile Blood Pressure: Normal Pulse: Regular Respiratory Rate: Normal Appearance: Positive for: Well-Appearing, Non-Toxic, Comfortable Pain Distress: None Mental Status: Positive for: Alert and Oriented X 3 - Systems Exam Head: Present: Atraumatic, Normocephalic Pupils: Present: PERRL Extroacular Muscles: Present: EOMI Conjunctiva: Present: Normal Mouth: Present: Moist Mucous Membranes Neck: Present: Normal Range of Motion Respiratory/Chest: Present: Clear to Auscultation, Good Air Exchange. No: Respiratory Distress, Accessory Muscle Use Cardiovascular: Present: Regular Rate and Rhythm, Normal S1, S2. No: Murmurs Abdomen: No: Tenderness, Distention, Peritoneal Signs Back: Present: Normal Inspection Upper Extremity: Present: Normal Inspection. No: Cyanosis, Edema Lower Extremity: Present: Normal Inspection. No: Edema Neurological: Present: GCS=15, CN II-XII Intact, Speech Normal Skin: Present: Warm, Dry, Other (Scattered bruising on chest and legs.). No: Rashes Psychiatric: Present: Alert, Oriented x 3, Normal Insight, Normal Concentration Medical Decision Making ED Course and Treatment: 11/21/17 14:39 Impression: A 72 year old female presents to the emergency department complaining of weakness, right sided chest pain, and labored breathing. Differential Diagnosis included but are not limited to: chest pain r/p ACS, r/o pneumonia, r/o pleural effusion, r/o anemia Plan: -- Angio Chest CT -- EKG -- Chest X-ray -- Labs -- Urinalysis -- Reassess and disposition Progress Notes: EKG: Ordered, reviewed, and independently interpreted the EKG. Rate : 95 BPM Rhythm : NSR with sinus arrhythmia Interpretation : LVH, LAD Comparison : No change from EKG on 11/10/17 Chest X-ray Dictator : Demario Levin MD Report Date : 11/21/2017 14:53:02 IMPRESSION: Left basilar atelectasis versus infiltrate. 11/21/17 18:[address] Puente. Agrees with admission and accepts patient to his service. 11/21/17 19:28 PROCEDURE: CT Chest with contrast (Pulmonary Angiogram) IMPRESSION: No evidence of acute pulmonary embolism. Osseous and hepatic metastatic disease. Moderate right pleural effusion with compressive atelectasis. Chronic infiltrative changes left lung. Partial collapse, consolidative changes right upper lobe. US prelim - negative. Patient's CT Chest Angio with No PE but noted infiltrate. Will add Vancomycin IV since recently hospitalized. Discuss with Dr. Puente who will place in Remote Telemetry. - Lab Interpretations Lab Results: 11/21/17 14:40 11/21/17 14:40 Lab Results 11/21/17 17:42: Manual Plt Count 38 L* 11/21/17 17:10: Urine Color Yellow, Urine Appearance Clear, Urine pH 6.0, Ur Specific Benedict 1.010, Urine Protein Negative, Urine Glucose (UA) Negative, Urine Ketones Negative, Urine Blood Trace-intact H, Urine Nitrate Negative, Urine Bilirubin Negative, Urine Urobilinogen 0.2, Ur Leukocyte Esterase Moderate H, Urine RBC 2 - 5, Urine WBC 5 - 10, Ur Epithelial Cells Many, Amorphous Sediment Trace 11/21/17 14:40: Blood Type A POSITIVE, Antibody Screen Negative, BBK History Checked Patient has bt 11/21/17 14:40: Sodium 142, Potassium 3.2 L, Chloride 101, Carbon Dioxide 30, Anion Gap 13, BUN 10, Creatinine 0.3 L, Est GFR ( Amer) > 60, Est GFR ( Non-Af Amer) > 60, Random Glucose 146 H, Calcium 7.2 L, Magnesium 1.9, Total Bilirubin 0.8, AST 68 H D, ALT 49, Alkaline Phosphatase 221 H D, Lactate Dehydrogenase 3149 H, Total Creatine Kinase 57, Troponin I < 0.01, Total Protein 6.9, Albumin 3.7, Globulin 3.2, Albumin/Globulin Ratio 1.2 11/21/17 14:40: PT 12.7, INR 1.11, APTT 22.3, D-Dimer, Quantitative 3117 11/21/17 14:40: WBC 1.7 L* D, RBC 2.96 L, Hgb 9.6 L, Hct 30.7 L, MCV 103.7, MCH 32.4, MCHC 31.3, RDW 16.4 H, Plt Count 36 L*, MPV 10.2, Gran % 89.5 H, Lymph % ( Auto) 8.7 L, [place] % (Auto) 0.6 L, Eos % (Auto) 0.6 L, Baso % (Auto) 0.6, Gran # 1.54, Lymph # (Auto) 0.2 L, [place] # (Auto) 0.0 L, Eos # (Auto) 0.0, Baso # (Auto ) 0.01, Platelet Evaluation 38 I have reviewed the lab results: Yes - RAD Interpretation Radiology Orders: 11/21/17 14:27 CHEST PORTABLE [RAD] Stat 11/21/17 15:45 ANGIO CHEST PE PROTOCOL [CT] Stat 11/21/17 17:57 DUPLEX LOWER EXTRM VEIN BILAT [US] Routine - EKG Interpretation Interpreted by ED Physician: Yes Type: 12 lead EKG - Medication Orders Current Medication Orders: Alprazolam (Xanax) 0.25 mg PO HS KIMMY Stop: 11/28/17 22:01 Home Med (Home Med) 1 unit PO DAILY KIMMY Vancomycin HCl (Vancomycin 1gm) 1 gm in 250 mls @ 167 mls/hr IVPB STAT STA PRN Reason: Protocol Stop: 11/21/17 20:56 Morphine Sulfate (Morphine Extended Release Tab) 30 mg PO Q12 KIMMY Morphine Sulfate (Morphine) 2 mg IVP Q4 PRN PRN Reason: Pain, severe (8-10) Morphine Sulfate (Morphine Immediate Release Tab) 15 mg PO Q6 PRN PRN Reason: Pain, moderate (4-7) Pantoprazole Sodium (Protonix Ec Tab) 40 mg PO QAM KIMMY Discontinued Medications Calcium Carbonate (Oscal) 500 mg PO STAT STA Stop: 11/21/17 16:05 Last Admin: 11/21/17 16:28 Dose: 500 mg Ceftriaxone Sodium (Rocephin 1 Gram Ivpb) 1 gm in 100 mls @ 200 mls/hr IVPB STAT STA PRN Reason: Protocol Stop: 11/21/17 16:18 Last Admin: 11/21/17 16:13 Dose: 200 mls/hr eMAR Start Stop Document 11/21/17 16:13 [facility] (Rec: 11/21/17 16:13 [facility] [id number]) Intravenous Solution Start Date 11/21/17 Start Time 16:13 End Date 11/21/17 End time 16:45 Total Infusion Time 32 Potassium Chloride (K-Dur 20 Meq Er Tab) 40 meq PO STAT STA Stop: 11/21/17 15:46 Last Admin: 11/21/17 16:13 Dose: 40 meq - Scribe Statement The provider has reviewed the documentation as recorded by the Taurusibrussell Dotson Provider Luz Attestation: All medical record entries made by the Scribe were at my direction and personally dictated by me. I have reviewed the chart and agree that the record accurately reflects my personal performance of the history, physical exam, medical decision making, and the department course for this patient. I have also personally directed, reviewed, and agree with the discharge instructions and disposition. Disposition/Present on Arrival - Present on Arrival Any Indicators Present on Arrival: No History of DVT/PE: No History of Uncontrolled Diabetes: No Urinary Catheter: No History of Decub. Ulcer: No History Surgical Site Infection Following: None - Disposition Have Diagnosis and Disposition been Completed?: Yes Diagnosis: Shortness of breath, Pneumonia, Pancytopenia Disposition: HOSPITALIZED Disposition Time: 18:31 Patient Plan: Admission Condition: FAIR
--- NOTE | 2017-11-21 14:54 | RAD ---
Date of service: 11/21/2017 HISTORY: chest pain/sob COMPARISON: Chest radiograph dated 11/10/2017. FINDINGS: LUNGS: Left basilar atelectasis versus infiltrate. Stable scarring of the right mid/upper lung. PLEURA: No significant pleural effusion identified, no pneumothorax apparent. CARDIOVASCULAR: Atherosclerotic aortic calcifications. Cardiomediastinal silhouette unchanged. OSSEOUS STRUCTURES: No significant abnormalities. VISUALIZED UPPER ABDOMEN: Normal. OTHER FINDINGS: Right internal jugular access chest port, unchanged. IMPRESSION: Left basilar atelectasis versus infiltrate.
[2017-11-21 15:15] LABS: INR 1.11
[2017-11-21 15:18] LABS: BASO # 0.01 K/mm3 (0.0-2.0); BASO % 0.6 % (0.0-3.0); EOS % 0.6 % (1.5-5.0); GRAN # 1.54 (1.4-6.5); GRAN % 89.5 % (50.0-68.0); HEMOGLOBIN 9.6 g/dL (12.0-16.0); LYMPH # 0.2 (1.2-3.4); LYMPH % 8.7 % (22.0-35.0); MEAN CELL VOLUME 103.7 fl (80.0-105.0); MEAN CORPUSCULAR HEMOGLOBIN 32.4 pg (25.0-35.0); MEAN CORPUSCULAR HGB CONC 31.3 g/dl (31.0-37.0); MEAN PLATELET VOLUME 10.2 fl (7.0-11.0); MONO % 0.6 % (1.0-6.0); RBC 2.96 10^6/uL (3.5-6.1); RED CELL DISTRIBUTION WIDTH 16.4 % (11.5-14.5)
[2017-11-21 15:30] LABS: TROPONIN I < 0.01 ng/mL
[2017-11-21 15:43] LABS: ALB/GLOB RATIO 1.2 (1.1-1.8); ALBUMIN 3.7 g/dL (3.0-4.8); ALT/SGPT 49 U/L (7-56); AST/SGOT 68 U/L (14-36); BLOOD UREA NITROGEN 10 mg/dL (7-21); CALCIUM 7.2 mg/dL (8.4-10.5); GFR AFRICAN-AMERICAN > 60; GFR NON-AFRICAN AMERICAN > 60
[2017-11-21] MEDS ORDERED: Potassium Chloride 20 mEq ER Tab PO STA (15:45)
[2017-11-21] MEDS ORDERED: cefTRIAXone 1 gm 1 GM/100 ML BAG IVPB STA (15:49)
[2017-11-21 16:00] LABS: WHITE BLOOD COUNT 1.7 10^3/ul (4.5-11.0)
[2017-11-21 17:27] LABS: URINE BILIRUBIN NEGATIVE (NEGATIVE); URINE BLOOD TRACE-INTACT (NEGATIVE); URINE GLUCOSE (UA) NEGATIVE (NEGATIVE); URINE LEUKOCYTE ESTERASE MODERATE Leu/uL (NEGATIVE); URINE PROTEIN NEGATIVE mg/dL (<30 mg/dL); URINE UROBILINOGEN 0.2 E.U./dL (<1 E.U./dL)
[2017-11-21 17:28] LABS: URINE APPEARANCE CLEAR (CLEAR); URINE COLOR YELLOW (YELLOW)
--- NOTE | 2017-11-21 17:28 | CARD ---
APPROVED REPORT Date of service: 11/21/2017 EKG Measurement Heart [id number] <Conclusion> Normal sinus rhythm with sinus arrhythmia Left axis deviation Left ventricular hypertrophy with QRS widening Abnormal ECG
[2017-11-21 17:34] LABS: URINE EPITHELIAL CELLS MANY /hpf (0-5)
[2017-11-21 17:35] LABS: URINE AMORPHOUS SEDIMENT TRACE
[2017-11-21] MEDS ORDERED: Iohexol 350 MG/100 ML VIAL ONE (18:26)
--- NOTE | 2017-11-21 19:02 | CT ---
Date of service: 11/21/2017 PROCEDURE: CT Chest with contrast (Pulmonary Angiogram) HISTORY: Chest pain. Pulmonary embolism suspected COMPARISON: 08/05/2017 CT thorax TECHNIQUE: Axial computed tomography images were obtained of the chest in the pulmonary arterial phase of enhancement. Coronal and sagittal reformatted images were created and reviewed. Intravenous contrast dose: 100 cc Omnipaque 350. Mean Hounsfield unit values in the main pulmonary artery: 341.60 Radiation dose: Total exam DLP = 440.45 mGy-cm. This CT exam was performed using one or more of the following dose reduction techniques: Automated exposure control, adjustment of the mA and/or kV according to patient size, and/or use of iterative reconstruction technique. FINDINGS: PULMONARY ARTERIES: Circumferential narrowing of right pulmonary arteries related to mediastinal and hilar adenopathy. AORTA: No acute findings. No thoracic aortic aneurysm. LUNGS: Consolidative changes in the lower lobe related to right pleural effusion. Consolidative change, bronchial narrowing affecting the right middle lobe bronchus. Consolidative changes also affecting right upper lobe. Chronic parenchymal changes in the lingula and left lower lobe. PLEURAL SPACES: Persistent right pleural effusion is approximately stable. HEART: Unremarkable. No cardiomegaly. No significant pericardial effusion. LYMPH NODES: Diminution in hilar, mediastinal and subcarinal adenopathy. BONES, CHEST WALL: Mottled appearance to multiple thoracic vertebral bodies suspicious for osseous metastatic disease. OTHER FINDINGS: Stable, incompletely visualized hepatic metastatic disease. IMPRESSION: No evidence of acute pulmonary embolism. Osseous and hepatic metastatic disease. Moderate right pleural effusion with compressive atelectasis. Chronic infiltrative changes left lung. Partial collapse, consolidative changes right upper lobe.
[2017-11-21] MEDS ORDERED: Vancomycin 1gm in NS 250ml 1 GM/250 ML BAG IVPB STA (19:27)
[2017-11-21] MEDS ORDERED: ALPRAZOLAM PO SCH (22:00)
[2017-11-21] MEDS: Morphine 30 mg SR Tab PO SCH (22:03)
[2017-11-22] MEDS: Albuterol-Ipratrop 3 mg / 0.5 (3 ml) UD IH SCH ×4 (06:24→19:45)
[2017-11-22 06:47] LABS: EOS % 1.1 % (1.5-5.0); GRAN # 0.75 (1.4-6.5); GRAN % 81.6 % (50.0-68.0); HEMOGLOBIN 8.8 g/dL (12.0-16.0); LYMPH # 0.1 (1.2-3.4); MEAN CELL VOLUME 103.8 fl (80.0-105.0); MEAN CORPUSCULAR HEMOGLOBIN 33.2 pg (25.0-35.0); MEAN PLATELET VOLUME 11.7 fl (7.0-11.0); MONO % 4.3 % (1.0-6.0); RBC 2.65 10^6/uL (3.5-6.1); RED CELL DISTRIBUTION WIDTH 16.8 % (11.5-14.5)
--- NOTE | 2017-11-22 07:36 | CP.PCM.HP ---
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 Patient recently completed her radiation therapy last week (last one 11/18). Patient states that she feels increasing generalized weakness, nausea. Yesterday at 6 AM, patient also started feeling right sided cp, achy, intermittent. Denies vomiting, diaphoresis, palpitations, abdominal pain, syncope. Patient states that she has also been having increasing weakness, fatigue since the last radiation session. Denies fevers, chills, cough, sob, neck pain, headache, confusion, diarrhea, constipation, melena, BRBPR, leg swelling. 12 point ROS obtained and neg, except as per HPI. PMD: Dr. Leiva/ Dr. Jarrett Radiology/ Oncology: Dr. Goyal Nephrology: Dr. 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 Denies ETOH, drug use. Present on Admission - Present on Admission Any Indicators Present on Admission: No History of DVT/PE: No History of Uncontrolled Diabetes: No Urinary Catheter: No Decubitus Ulcer Present: No Review of Systems - Review of Systems All systems: reviewed and no additional remarkable complaints except Review of Systems: as per HPI Past Patient History - Infectious Disease Hx of Infectious Diseases: None - Tetanus Immunizations Tetanus Immunization: Unknown - Past Medical History & Family History Past Medical History?: Yes - Past Social History Smoking Status: Former Smoker - CARDIAC Hx Circulatory Problems: Yes Hx Congestive Heart Failure: Yes Hx Hypercholesterolemia: Yes Hx Hypertension: Yes Hx Peripheral Edema: Yes - PULMONARY Hx Respiratory Disorders: Yes Hx Pneumonia: Yes Other/Comment: small cell lung ca - NEUROLOGICAL Hx Neurological Disorder: No - HEENT Hx HEENT Problems: Yes (eyeglases) - RENAL Hx Chronic Kidney Disease: No - ENDOCRINE/METABOLIC Hx Diabetes Mellitus Type 2: Yes - HEMATOLOGICAL/ONCOLOGICAL Hx Blood Disorders: Yes Hx Anemia: Yes Hx Cancer: Yes (lung) Hx Chemotherapy: Yes (Last Tx 11/20/17) Hx Metastesis: Yes (liver, bone,[spine & epidural mass]) Other/Comment: radiation markings to abd abd chest - INTEGUMENTARY Hx Dermatological Problems: Yes Other/Comment: SACRAL PRESSURE ULCER stg 2 1cm x 1cm wound bed is red/pink surounded by reddish skin optifoam intact, multiple purple and red skin discolorations to both legs and arms, thick long hard toenails, radiation markings to abd and chest - MUSCULOSKELETAL/RHEUMATOLOGICAL Hx Musculoskeletal Disorders: Yes Hx Arthritis: Yes Hx Back Pain: Yes Hx Falls: Yes (past) - GASTROINTESTINAL Hx Gastrointestinal Disorders: Yes (constipation/ nausea) - GENITOURINARY/GYNECOLOGICAL Hx Genitourinary Disorders: Yes Hx Incontinence: Yes - PSYCHIATRIC Hx Psychophysiologic Disorder: Yes Hx Anxiety: Yes Hx Depression: Yes - SURGICAL HISTORY Hx Surgeries: Yes Hx Appendectomy: Yes Hx Cardiac Catheterization: Yes Hx Joint Replacement: Yes (RIGHT TKR 10/2012) Other/Comment: knee replacement 2013 right, 2 c-sections, r cw pac - ANESTHESIA Hx Anesthesia Reactions: No Hx Malignant Hyperthermia: No Meds Allergies/Adverse Reactions: Allergies Allergy/AdvReac Type Severity Reaction Status Date / Time Sulfa (Sulfonamide Allergy ANAPHYLAXIS Verified 11/21/17 14:19 Antibiotics) Physical Exam - Constitutional Appears: Cachectic, Chronically Ill - Head Exam Head Exam: ATRAUMATIC, NORMOCEPHALIC - Eye Exam Eye Exam: EOMI, PERRL. absent: Conjunctival injection, Nystagmus, Scleral icterus Pupil Exam: NORMAL ACCOMODATION, PERRL. absent: Fixed, Irregular, Miosis, Unequal - ENT Exam ENT Exam: Mucous Membranes Dry - Neck Exam Neck exam: Positive for: Full Rom - Respiratory Exam Respiratory Exam: Decreased Breath Sounds, NORMAL BREATHING PATTERN. absent: Accessory Muscle Use, Rhonchi, Wheezes, Stridor - Cardiovascular Exam Cardiovascular Exam: RRR, +S1, +S2. absent: Systolic Murmur - GI/Abdominal Exam GI & Abdominal Exam: Normal Bowel Sounds, Soft. absent: Distended, Firm, Guarding, Hernia, Organomegaly, Pulsatile Mass, Rebound, Rigid, Tenderness - Extremities Exam Extremities exam: Positive for: pedal edema - Back Exam Back exam: NORMAL INSPECTION - Neurological Exam Neurological exam: Alert, Oriented x3 - Psychiatric Exam Psychiatric exam: Normal Mood Additional comments: fatigued - Skin Skin Exam: Dry, Normal Color, Warm Results - Vital Signs Recent Vital Signs: Last Vital Signs Temp 98.8 F 11/21/17 21:46 Pulse 97 H 11/22/17 06:00 Resp 20 11/21/17 21:46 BP 129/76 11/21/17 21:46 Pulse Ox 96 11/21/17 21:46 - Labs Result Diagrams: 11/22/17 06:00 11/22/17 06:30 Labs: Laboratory Results - last 24 hr 11/22/17 07:29 POC Glucose (mg/dL) 148 H Assessment & Plan - Assessment and Plan (Free Text) Assessment: 72 year old female with PMH Stage IV SCC of lung with liver, spine mets, COPD, HTN, DM, presents for generalized weakness, right sided cp, found to be pancytopenic, hypokalemic: Right sided cp: likely musculoskeletal, ruled out ACS, PE - trop neg x1, initial EKG neg - CTA neg for PE - US LE prelim read shows no DVT - pain management Generalized weakness: 2/2 radiation, 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 will transfuse 1 unit prbcs - pain management - reglan prn - monitor Hypokalemia: - repleted - monitor Neutropenia: - received Neulasta last week 11/18 outpatient - started on granix 480 mcg sq daily - ANC 734,000 today (yesterday 1522 x10^3) - neutropenic precautions - afebrile - ID consulted - CXR left basilar atelectasis vs infiltrate - CTA shows moderate right pleural effusion with compressive atelectasis. chronic infiltrative changes in left lung. Partial collapse, consolidative changes in RUL - procal - ID consulted. F/u recs. - monitor Anemia: - macrocytic MCV 103.8 - Vitamin B12, folate - Hgb 8.8 today (prev 9.6). patient sob, weak - will transfuse 1 unit prbcs - monitor post transfusion Hx of COPD: - nikunj - Dr Eastman on board. Appreciate recs. Hx of DM: - HgbA1c - ISS low Case seen and discussed with Dr Puente.
[2017-11-22 08:09] LABS: PLATELET COUNT 26 10^3/uL (120.0-450.0); WHITE BLOOD COUNT 0.9 10^3/ul (4.5-11.0)
[2017-11-22 09:22] LABS: PLATELET ESTIMATE LOW (NORMAL)
[2017-11-22] MEDS: Morphine 30 mg SR Tab PO SCH ×2 (09:56→21:53)
[2017-11-22 10:00] LABS: PLATELET COUNT MANUAL 39 K/mm3 (120-450)
[2017-11-22] MEDS ORDERED: Pantoprazole 40 mg EC Tab PO SCH (10:00)
[2017-11-22 10:17] LABS: ALB/GLOB RATIO 1.2 (1.1-1.8); ALBUMIN 3.4 g/dL (3.0-4.8); ALT/SGPT 40 U/L (7-56); AST/SGOT 57 U/L (14-36); BLOOD UREA NITROGEN 9 mg/dL (7-21); CALCIUM 7.3 mg/dL (8.4-10.5); GFR AFRICAN-AMERICAN > 60; GFR NON-AFRICAN AMERICAN > 60
[2017-11-22 10:20] LABS: INR 1.2
[2017-11-22] MEDS ORDERED: Potassium Chloride 20 mEq ER Tab PO STA (10:41)
--- NOTE | 2017-11-22 11:34 | CON ---
Copied To: Robert Eastman MD Attending MD: Robert Eastman MD DATE: 11/21/2017 REFERRING PHYSICIAN: Dr. Puente. REASON FOR CONSULTATION: Chronic obstructive lung disease, lung cancer with metastatic disease, been on radiation and chemotherapy. Comes in with nausea, vomiting, unable to keep anything down. HISTORY OF PRESENT ILLNESS This is a 72-year-old female well known to me from previous admissions with stage IV lung cancer with metastatic disease to liver, bones, chronic obstructive lung disease, diabetes, received chemotherapy about 2 days or so, been having nausea, vomiting, cannot keep anything down, feels very weak, short of breath. No chest pain. No dysuria. No leg pain or leg swelling. PAST MEDICAL HISTORY: As per history of present illness. ALLERGIES: TO SULFA. FAMILY HISTORY: No significant cardiopulmonary disease reported. SOCIAL HISTORY: Former smoker. Denied any alcohol use. MEDICATIONS: She is on morphine 2 mg every 4 hours p.r.n., also morphine extended release 30 mg every 12 hours, morphine immediate release 50 mg every 6 hours p.r.n., Protonix 40 mg daily, Tylenol p.r.n., Xanax 0.25 mg at bedtime, Zofran 4 mg every 4 hours p.r.n. REVIEW OF SYSTEM: No headache. No rhinitis. Has cough, shortness of breath, nausea, vomiting, epigastric discomfort. No dysuria. No leg pain or leg swelling. Feels very weak and tired. PHYSICAL EXAMINATION: GENERAL: No acute distress. VITAL SIGNS: Temperature is 98, heart rate is 93, respiratory is 20, blood pressure 129/76, pulse ox 96% on room air. HEENT: Moist mucous membranes. Small oral cavity. Dry mucous membranes. NECK: Supple. LUNGS: Have scattered rhonchi. HEART: S1, S2. ABDOMEN: Soft, nontender, no organomegaly. EXTREMITIES: No edema. NEUROLOGIC: Awake, alert. Follows simple commands. LABORATORY DATA: Shows hemoglobin 9.6, hematocrit 30.7, WBC 1.7, platelet count is 36. INR 1.1. PTT is 22, D-dimer is 3117. Sodium 142, potassium 3.2, chloride 101, bicarbonate 30, BUN 10, creatinine 0.3, glucose 146, calcium 7.2, AST 68, ALT 49, alk phos is 221. LDH 3149, total protein 6.9. Albumin is 3.7. Urinalysis shows leukocyte esterase moderate, wbc's 5-10. Had a CT of the chest done which shows no evidence of pulmonary embolism hepatic metastatic disease noted. Moderate right pleural effusion and compressive atelectasis, chronic infiltrate changes in the left lung, partial collapse, consolidated changes in right upper lobe. IMPRESSION AND PLAN: Status post chemotherapy, pancytopenia with anemia, leukopenia and thrombocytopenia, small cell lung cancer with extensive disease mets to the spine, bone, been on radiation therapy, started on chemo 2 days ago, may have esophagitis, gastritis, chronic lung disease, anemia. We will add inhaled bronchodilator. Keep head at 45 degrees. Continue Zofran. We will add Protonix IV, may add Magic solution to the mouth, swish and swallow. Followup CBC, need leukopenic precaution. Watch for infection closely. Thank you and we will follow with you. Robert Eastman MD
[2017-11-22] MEDS ORDERED: Dextrose 50% SYRINGE Inj (50 ml) IV PRN (11:55)
[2017-11-22] MEDS ORDERED: Potassium Chloride 20 mEq ER Tab PO ONE (13:00)
[2017-11-22] MEDS: Meropenem IV 1 gm in NS 50 ML IVPB SCH ×2 (17:11→21:51)
[2017-11-22 17:58] LABS: FOLATE 3.4 ng/mL
[2017-11-22] MEDS: Aluminum Hydroxide/Magnesium 30 ML, DiphenhydrAMINE 75 MG, Lidocaine 2% Viscous 30 ML PO PRN (18:45)
[2017-11-22] MEDS: Morphine 15 mg Immediate Release Tab PO PRN (20:54)
--- NOTE | 2017-11-23 01:01 | PN ---
Copied To: Robert Eastman MD Attending MD: Robert Eastman MD. DATE: 11/22/2017 PULMONARY PROGRESS NOTE REFERRING PHYSICIAN: Yosef Reis MD. SUBJECTIVE: She is lying in the bed, head at 45 degrees. Night was unremarkable. Feels a little better. Still short of breath with exertion. No chest pain. Still has some nausea, sore throat. No leg pain or leg swelling. OBJECTIVE: GENERAL: In no acute distress. VITAL SIGNS: Temp is 98, heart rate is 94, respiratory rate is 20, blood pressure 121/63, pulse ox 94% on 2 L nasal cannula. HEENT: Dry mucous membrane. NECK: Supple. No JVD. LUNGS: Have a few scattered rhonchi. HEART: S1 and S2. ABDOMEN: Soft, nontender. No organomegaly. EXTREMITIES: Trace edema. NEUROLOGICAL: Awake and alert. Follows simple command. MEDICATIONS: She is on Colace 100 mg twice a day, D5 water p.r.n. basis, doxycycline 100 mg twice a day, DuoNeb every 6 hours, meropenem 1 g IV every 8 hours, morphine 2 mg IV every 4 hours p.r.n., morphine extended release 30 mg every 12 hours, morphine immediate release 50 mg every 6 hours p.r.n., Protonix 40 mg daily, Reglan 5 mg before meals and at bedtime, Tylenol p.r.n., Xanax 0.25 mg twice a day. LABORATORY DATA: Shows hemoglobin 8.8, hematocrit 27.5, WBC 0.9, platelet count is 26. INR 1.2, PTT 24. Blood sugar 130, procalcitonin 1.14. B12 of 884. Folate is 3.4. Microbiology: Blood culture, there is no growth. IMPRESSION AND PLAN: Neutropenic with pancytopenia. Just received chemotherapy. 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 Pulmonary point of view, doing okay. Continue bronchodilator. Keep head at 45 degrees. Antibiotics as per Infectious Diseases. The patient placed on p.r.n. Magic solution for mouth ulcers. Follow up labs in the morning. Thank you and we will follow with you. Robert Eastman MD [facility] # [id number]
--- NOTE | 2017-11-23 01:26 | CON ---
DATE: 11/22/2017 LOCATION: The patient is seen earlier today in 361, bed 1. CHIEF COMPLAINT: Weakness times several days. HISTORY OF PRESENT ILLNESS: This is a 72-year-old female known to me from previous admission with past medical history of diabetes mellitus; hypertension; depression; low back pain; stage IV lung cancer, mets to the spine and liver with retroperitoneal adenopathy. The patient also has a history of ESBL Klebsiella and Proteus urinary tract infection. She was recently treated for healthcare-associated pneumonia. The patient also with a Port-A-Cath, right knee replacement, had cardiac catheterization. SHE IS ALLERGIC TO SULFA, TYPE OF ALLERGY IS NOT CLEAR. Admitted through the emergency room last night, seen by Dr. Marco Antonio Palacio, the emergency room with the patient, stage IV lung cancer, metastases to the liver, bone and chronic fructose lung disease, admitted with generalized weakness and received chemotherapy recently and day before yesterday. Now the patient has no fevers, no chills. No headaches. She is still weak and she does not have any abdominal pain or diarrhea or constipation. REVIEW OF SYSTEMS: A 12-point review of systems is noted and as stated, there has been no fevers or chills. No nausea. PAST MEDICAL HISTORY: Significant for stage IV lung cancer, metastases to the spine and liver with retroperitoneal adenopathy with diabetes mellitus, hypertension, depression, low back pain, ESBL Klebsiella and Proteus urinary tract infection and healthcare-associated pneumonia. PAST SURGICAL HISTORY: Significant for right knee replacement, Port-A-Cath placement and . ALLERGIES: THE PATIENT IS ALSO ALLERGIC TO SULFA, TYPE OF THE ALLERGY IS NOT KNOWN. MEDICATIONS AT HOME: Reviewed. PHYSICAL EXAMINATION: VITAL SIGNS: The patient is in bed with a temperature of 97; heart rate of 96, it was up to 106; respiratory rate of 20; blood pressure is 126/73. HEENT: Unremarkable. NECK: Supple. LUNGS: Have decreased breath sounds. HEART: Normal S1, S2. ABDOMEN: Soft. Nontender. No rebound or guarding. No masses. LABORATORY EXAMINATION: Reveals white count is 0.9 with hemoglobin of 8, platelets of 26. 81% granulocytosis with 750 absolute granulocyte count. Coagulation is noted. Chemistries are noted. LDH of 3149. Creatinine is 0.3. Urinalysis shows 5 to 10 wbc's. Microbiology is pending. Microbiology from the past reveals the patient to have Proteus mirabilis from 11/10/2017, relatively sensitive Proteus mirabilis, sensitive to ampicillin, resistant to Cipro. Blood cultures on 11/10/2017 were also negative. Rectal fluid culture VRE was cultured. note is reviewed. Dr. Eastman's consultation is reviewed. The patient had CAT scan of the chest, which revealed no evidence of acute pulmonary emboli. There is a osseous and hepatic metastatic disease, moderate right-sided pleural effusion, compression atelectasis, chronic infiltrate changes, left lung partial collapse, consolidative changes in the right upper lobe. The patient also had a chest x-ray, left basal atelectasis versus infiltrate. Review of orders reveals blood cultures have been ordered. Urine cultures have been ordered. We will add sputum culture. Procalcitonin has been ordered. The patient was given a dose of ceftriaxone and vancomycin in the emergency room. ASSESSMENT AND PLAN: A 72-year-old female with diabetes mellitus, hypertension, depression, low back pain, history of extended-spectrum beta-lactamase Klebsiella and Proteus urinary tract infection, history of healthcare-associated pneumonia, history of stage IV lung cancer with mets to the spine and liver, retroperitoneal adenopathy with neutropenia with pancytopenia, status post chemotherapy with a probable right healthcare-associated post obstructive pneumonitis, healthcare-associated pneumonia. We will treat the patient with meropenem and doxycycline. Pending initial krueger culture results and procalcitonin. We will also order an methicillin-resistant Staphylococcus aureus nasal screen. As far, the patient has not had any fevers, however, because of the CAT scan findings, we will treat the patient as healthcare-associated pneumonia with meropenem and doxycycline. Pending initial workup results. We will follow closely with you. Overall prognosis is quite poor. Jorge Luis Hernandez MD
[2017-11-23] MEDS: Albuterol-Ipratrop 3 mg / 0.5 (3 ml) UD IH SCH ×4 (02:40→20:42)
[2017-11-23] MEDS: Meropenem IV 1 gm in NS 50 ML IVPB SCH ×3 (05:46→21:55)
[2017-11-23 07:06] LABS: INR 1.17; PROTHROMBIN TIME 13.5 SECONDS (9.4-12.5)
[2017-11-23 07:08] LABS: EOS % 2.1 % (1.5-5.0); GRAN # 0.31 (1.4-6.5); HEMOGLOBIN 8.7 g/dL (12.0-16.0); LYMPH # 0.1 (1.2-3.4); LYMPH % 23.4 % (22.0-35.0); MEAN CELL VOLUME 100.4 fl (80.0-105.0); MEAN CORPUSCULAR HEMOGLOBIN 32.1 pg (25.0-35.0); MONO % 8.5 % (1.0-6.0); PARTIAL THROMBOPLASTIN TIME 24.1 Seconds (25.1-36.5); RBC 2.71 10^6/uL (3.5-6.1); RED CELL DISTRIBUTION WIDTH 18.5 % (11.5-14.5)
[2017-11-23 07:30] LABS: ALB/GLOB RATIO 1.2 (1.1-1.8); ALBUMIN 3.2 g/dL (3.0-4.8); ALT/SGPT 34 U/L (7-56); AST/SGOT 39 U/L (14-36); BLOOD UREA NITROGEN 8 mg/dL (7-21); CALCIUM 7.2 mg/dL (8.4-10.5); GFR AFRICAN-AMERICAN > 60; GFR NON-AFRICAN AMERICAN > 60
[2017-11-23] MEDS: Insulin Lispro (humaLOG) LOW Coverage SC SCH ×4 (07:31→22:04)
[2017-11-23 07:39] LABS: PLATELET COUNT 13 10^3/uL (120.0-450.0); WHITE BLOOD COUNT 0.5 10^3/ul (4.5-11.0)
[2017-11-23] MEDS ORDERED: Potassium Phosphate 15 MMOLE in Sodium Chloride 0.9% 250 ML IVPB ONE (07:48)
[2017-11-23 08:09] LABS: PLATELET ESTIMATE LOW (NORMAL)
[2017-11-23 08:10] LABS: PLATELET COUNT MANUAL 17 K/mm3 (120-450)
[2017-11-23] MEDS: Morphine 30 mg SR Tab PO SCH ×2 (10:05→21:57)
--- NOTE | 2017-11-23 10:34 | PN ---
Copied To: Jorge Luis Hernandez MD Attending MD: Jorge Luis Hernandez MD DATE: 11/23/2017 SUBJECTIVE: The patient is seen early this morning. No fevers. No chills. No nausea. PHYSICAL EXAMINATION: VITAL SIGNS: Temperature is 97, blood pressure is 117/50, respiratory rate 20, heart rate of 98. HEENT: Examination is unremarkable. NECK: Supple. LUNGS: Have decreased breath sounds. HEART: Normal S1, S2. ABDOMEN: Soft, nontender. LABORATORY DATA: Reveals a white count of 0.9 with an absolute granulocyte count of 750. Chemistries are noted and creatinine 0.3. Patient's procalcitonin is 1.14. Urinalysis is noted and Microbiology reveals the blood cultures have no growth at 24 hours. Review of orders reveals the patient to be on meropenem. ASSESSMENT AND PLAN: This is a 72-year-old female seen earlier today in room 361, bed 1 with probable right healthcare-associated post-obstructive pneumonitis, healthcare-associated pneumonia, elevated procalcitonin, most likely gram-positive versus gram-negative, on meropenem, doxycycline day #2 in a patient who has diabetes mellitus, hypertension, depression, low back pain, history of extended-spectrum beta-lactamase Klebsiella and Proteus urinary tract infection, history of stage IV lung cancer with metastases to the spine and liver with retroperitoneal adenopathy. Overall prognosis is quite poor. We will complete a short course of antibiotics, today is day #2 of 4 to 7 days. We will follow the WBC. Dopplers of lower extremities have been ordered and we will follow the results of that . Jorge Luis Hernandez MD
[2017-11-23 13:51] LABS: PROTHROMBIN TIME 13.8 SECONDS (9.4-12.5)
[2017-11-23 13:52] LABS: PARTIAL THROMBOPLASTIN TIME 23.5 Seconds (25.1-36.5)
[2017-11-23 14:35] LABS: PARTIAL THROMBOPLASTIN TIME 22.3 Seconds (25.1-36.5); PROTHROMBIN TIME 12.7 SECONDS (9.4-12.5)
[2017-11-23] MEDS: PRISTIQ 50 MG PO SCH ×2 (14:45→17:00)
--- NOTE | 2017-11-23 14:52 | CP.PCM.PN ---
Subjective - Date & Time of Evaluation Date of Evaluation: 11/23/17 Time of Evaluation: 14:45 - Subjective Subjective: Kristi Nava, PGY2, Progress Note for Dr Puente: Patient seen and examined at bedside. No acute events overnight. Patient anxious today, spoke with Dr Puente, discussed patient's clinical status. Reports that her appetite is better, reports less weakness. Denies fever, chills , nausea, vomiting, abdominal pain, leg swelling. Objective - Vital Signs/Intake and Output Vital Signs (last 24 hours): Temp Pulse Resp BP Pulse Ox 97.4 F L 86 20 123/67 95 11/23/17 08:00 11/23/17 08:00 11/23/17 08:00 11/23/17 08:00 11/23/17 08:00 - Medications Medications: Current Medications Acetaminophen (Tylenol 325mg Tab) 650 mg PO Q4H PRN PRN Reason: Fever >100.5 F Albuterol/Ipratropium (Duoneb 3 Mg/0.5 Mg (3 Ml) Ud) 3 ml IH [id number] [facility] Last Admin: 11/23/17 13:02 Dose: 3 ml Alprazolam (Xanax) 0.25 mg PO BID [facility] Stop: 11/29/17 18:01 Last Admin: 11/23/17 10:08 Dose: 0.25 mg Al Hydrox/Mg Hydrox/Simethicone 30 ml/Diphenhydramine HCl 75 mg/Lidocaine 30 ml 0 ml PO Q2H PRN PRN Reason: Mouth/Throat Pain Last Admin: 11/22/17 18:45 Dose: 15 ml Dextrose (Dextrose 50% Inj) 0 ml IV STAT PRN; Protocol PRN Reason: Hypoglycemia Protocol Docusate Sodium (Colace) 100 mg PO BID [facility] Last Admin: 11/23/17 10:04 Dose: 100 mg Doxycycline Hyclate (Doryx) 100 mg PO Q12 KIMMY PRN Reason: Protocol Stop: 12/01/17 22:01 Last Admin: 11/23/17 10:04 Dose: 100 mg Home Med (Home Med) 1 unit PO TID [facility] Dextrose (Dextrose 5% In Water 1000 Ml) 1,000 mls @ 0 mls/hr IV .Q0M PRN; Protocol; Per Protocol PRN Reason: Hypoglycemia Protocol Meropenem (Merrem Iv 1 Gm Premix) 50 mls @ 100 mls/hr IVPB Q8 KIMMY PRN Reason: Protocol Stop: 12/01/17 14:01 Last Admin: 11/23/17 05:46 Dose: 100 mls/hr Insulin Human Lispro (Humalog Low) 0 units SC ACHS KIMMY PRN Reason: Protocol Last Admin: 11/23/17 12:29 Dose: 2 unit Metoclopramide HCl (Reglan) 5 mg IVP ACHS KIMMY Last Admin: 11/23/17 11:30 Dose: 5 mg Morphine Sulfate (Morphine Extended Release Tab) 30 mg PO Q12 KIMMY Last Admin: 11/23/17 10:05 Dose: 30 mg Morphine Sulfate (Morphine) 2 mg IVP Q4 PRN PRN Reason: Pain, severe (8-10) Morphine Sulfate (Morphine Immediate Release Tab) 15 mg PO Q6 PRN PRN Reason: Pain, moderate (4-7) Last Admin: 11/22/17 20:54 Dose: 15 mg Pantoprazole Sodium (Protonix Ec Tab) 40 mg PO ACB [facility] - Labs Labs: 11/23/17 06:30 11/23/17 06:30 PT 13.5 SECONDS (9.4-12.5) H 11/23/17 06:30 INR 1.17 11/23/17 06:30 APTT 24.1 Seconds (25.1-36.5) L 11/23/17 06:30 - Additional Findings Additional findings: - Constitutional Appears: Cachectic, Chronically Ill - Head Exam Head Exam: ATRAUMATIC, NORMOCEPHALIC - Eye Exam Eye Exam: EOMI, PERRL. absent: Conjunctival injection, Nystagmus, Scleral icterus Pupil Exam: NORMAL ACCOMODATION, PERRL. absent: Fixed, Irregular, Miosis, Unequal - ENT Exam ENT Exam: Mucous Membranes Moist - Neck Exam Neck exam: Positive for: Full Rom - Respiratory Exam Respiratory Exam: Decreased Breath Sounds, NORMAL BREATHING PATTERN. absent: Accessory Muscle Use, Rhonchi, Wheezes, Stridor - Cardiovascular Exam Cardiovascular Exam: RRR, +S1, +S2. absent: Systolic Murmur - GI/Abdominal Exam GI & Abdominal Exam: Normal Bowel Sounds, Soft. 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 will transfuse 1 unit prbcs - pain management - reglan prn - monitor Hypokalemia: - resolved - monitor Neutropenia: - received Neulasta last week 11/18 outpatient - granix 480 mcg sq daily - ANC [phone]->[phone]->330 today - neutropenic precautions - afebrile, no leukocytosis - CXR left basilar atelectasis vs infiltrate - CTA shows moderate right pleural effusion with compressive atelectasis. chronic infiltrative changes in left lung. Partial collapse, consolidative changes in RUL - procal 1.14 high - ID consulted. appreciate recs. C/w abx doxy and merrem for HCAP. - monitor Anemia: - macrocytic MCV 103.8 - Vitamin B12, folate normal - Hgb 8.7 today (prev 9.6). patient sob, weak - will transfuse 1 unit prbcs - monitor post transfusion Thrombocytopenia: - manual plt count 17. - 1 unit platelets - monitor Hx of COPD: - duonebs - Dr Eastman on board. Appreciate recs. Hx of DM: - HgbA1c 7.2 - ISS low Case seen and discussed with Dr Puente.
--- NOTE | 2017-11-23 18:15 | US ---
HISTORY: Leg pain and swelling. Evaluate for DVT PHYSICIAN(S): Lars Alvarado MD. TECHNIQUE: Duplex sonography and color-flow Doppler with graded compression were used to evaluate the deep venous systems of both lower extremities. The exam is somewhat limited by edema. FINDINGS: The visualized deep venous systems of both lower extremities are sonographically normal and compressible. Normal wave forms and augmentation are seen. There is no sonographic evidence for deep venous thrombosis in the visualized segments of both lower extremities. IMPRESSION: No sonographic evidence for deep venous thrombosis in the visualized segments of both lower extremities.
[2017-11-23] MEDS: Morphine 15 mg Immediate Release Tab PO PRN (20:51)
--- NOTE | 2017-11-23 20:59 | PN ---
Copied To: Robert Eastman MD Attending MD: Robert Eastman MD DATE: 11/23/2017 PULMONARY PROGRESS NOTE REFERRING PHYSICIAN: . SUBJECTIVE: She is lying in the bed, head at 45 degrees. Refused therapy today. Overall feels better, still very weak, short of breath with exertion. No chest pain. No nausea. No vomiting. No diarrhea. No leg pain or leg swelling. OBJECTIVE: GENERAL: In no acute distress. VITAL SIGNS: Temperature is 98, heart rate 86, respiratory rate is 20, blood pressure 123/67, pulse ox 95% on room air. HEENT: Moist mucous membrane. Crowded a Mallampati score is IV. NECK: Supple. No JVD. LUNGS: Have fair airflow with few rhonchi. HEART: S1 and S2. ABDOMEN: Soft, nontender. No organomegaly. EXTREMITIES: No edema. NEUROLOGICAL: Awake and alert. Follows simple command. MEDICATIONS: She is on Colace 100 mg twice a day, doxycycline 100 mg twice a day, DuoNeb every 6 hours [id number], also getting meropenem 1 g IV every 8 hours, morphine 2 mg every 4 hours p.r.n., morphine extended release 30 mg every 12 hour, morphine immediate release 50 mg every 6 hours p.r.n., Protonix 40 mg daily, Reglan 5 mg before meals and at bedtime, Tylenol p.r.n., Xanax 0.25 mg twice a day. LABORATORY DATA: Shows hemoglobin 8.7, hematocrit 27.2, WBC 0.5, platelet count is 13. INR 1.17. PTT is 24. Sodium 141, potassium 3.9, chloride 106, bicarbonate 28, BUN 8, creatinine 0.3, glucose is 165, calcium 7.2, phosphorus 1.7, AST 39, ALT 34, alk phos is 199. Albumin is 3.2. IMPRESSION AND PLAN: Neutropenia with pancytopenia, status post chemotherapy; small lung cancer, which is extensive disease involving spine, bone; also esophagitis; gastritis; chronic lung disease; anemia; electrolyte imbalance. Pulmonary point of view, doing okay. Continue bronchodilator. Keep head at 45 degrees. Antibiotics as per Infectious Diseases. Hematology/Oncology followup. Gastric prophylaxis. Fall precaution. Follow up labs the morning. Encourage therapy. Thank you and we will follow with you. Robert Eastman MD [facility] # [id number]
[2017-11-24] MEDS: Albuterol-Ipratrop 3 mg / 0.5 (3 ml) UD IH SCH ×4 (02:40→19:26)
[2017-11-24] MEDS: Morphine 15 mg Immediate Release Tab PO PRN ×2 (03:44→12:47)
[2017-11-24] MEDS: Meropenem IV 1 gm in NS 50 ML IVPB SCH ×3 (05:35→23:06)
[2017-11-24 07:08] LABS: PARTIAL THROMBOPLASTIN TIME 23.1 Seconds (25.1-36.5)
[2017-11-24 07:10] LABS: INR 1.09; PROTHROMBIN TIME 12.6 SECONDS (9.4-12.5)
[2017-11-24 07:30] LABS: ALB/GLOB RATIO 1.1 (1.1-1.8); ALBUMIN 3.2 g/dL (3.0-4.8); ALT/SGPT 28 U/L (7-56); AST/SGOT 30 U/L (14-36); BLOOD UREA NITROGEN 6 mg/dL (7-21); CALCIUM 7.6 mg/dL (8.4-10.5); GFR AFRICAN-AMERICAN > 60; GFR NON-AFRICAN AMERICAN > 60
[2017-11-24] MEDS: Insulin Lispro (humaLOG) LOW Coverage SC SCH ×4 (08:14→23:49)
[2017-11-24] MEDS: Pantoprazole 40 mg EC Tab PO SCH (08:19)
[2017-11-24 08:47] LABS: BASO # 0.01 K/mm3 (0.0-2.0); BASO % 3.2 % (0.0-3.0); EOS % 3.2 % (1.5-5.0); GRAN # 0.11 (1.4-6.5); GRAN % 35.5 % (50.0-68.0); HEMOGLOBIN 8.1 g/dL (12.0-16.0); LYMPH # 0.1 (1.2-3.4); LYMPH % 45.2 % (22.0-35.0); MEAN CELL VOLUME 100.8 fl (80.0-105.0); MEAN CORPUSCULAR HEMOGLOBIN 32.1 pg (25.0-35.0); MEAN CORPUSCULAR HGB CONC 31.9 g/dl (31.0-37.0); MEAN PLATELET VOLUME 9.4 fl (7.0-11.0); MONO % 12.9 % (1.0-6.0); RBC 2.52 10^6/uL (3.5-6.1); RED CELL DISTRIBUTION WIDTH 17.7 % (11.5-14.5)
[2017-11-24 08:48] LABS: WHITE BLOOD COUNT 0.3 10^3/ul (4.5-11.0)
[2017-11-24 08:49] LABS: PLATELET COUNT 38 10^3/uL (120.0-450.0)
[2017-11-24 09:12] LABS: PLATELET ESTIMATE LOW (NORMAL)
[2017-11-24] MEDS: Morphine 30 mg SR Tab PO SCH ×2 (09:47→23:07)
[2017-11-24 09:51] LABS: PLATELET COUNT MANUAL 48 K/mm3 (120-450)
[2017-11-24] MEDS: PRISTIQ 50 MG PO SCH ×3 (09:55→17:39)
--- NOTE | 2017-11-24 10:11 | PN ---
Copied To: Jorge Luis Hernandez MD Attending MD: Jorge Luis Hernandez MD DATE: 11/24/2017 SUBJECTIVE: The patient is seen in room 361, bed 1. No fevers, no chills. OBJECTIVE: VITAL SIGNS: On exam, temperature is 98, blood pressure is 120/70, heart rate of 82, respiratory rate 20. HEENT: Examination is unremarkable. NECK: Supple. LUNGS: Have decreased breath sounds. HEART: Normal S1, S2. ABDOMEN: Soft, nontender. DATA: Laboratory examination reveals a white count of 0.3, hemoglobin of 8, platelets of 38. Chemistries are noted. BUN of 6, creatinine of 0.3. Microbiology is reviewed and negative blood cultures. ASSESSMENT AND PLAN: This is a 72-year-old female seen earlier this morning with probable right healthcare-associated postobstructive pneumonitis and healthcare-associated pneumonia with an elevated procalcitonin, Gram positive cocci versus gram-negative teresa, on meropenem and doxycycline day #3 in a patient with diabetes mellitus, hypertension, depression, low back pain, history of ESBL Proteus urinary tract infection, history of stage IV lung cancer with metastases to the spine and liver with retroperitoneal adenopathy. Today is day #3 of 4 to 7 days patient who is neutropenic and pancytopenic although she did not have any fevers. She did have infiltrate on chest x-ray. We will complete a short course of antibiotics, 4 to 7 days, day #3. Jorge Luis Hernandez MD
--- NOTE | 2017-11-24 20:19 | CP.PCM.PN ---
Subjective - Date & Time of Evaluation Date of Evaluation: 11/24/17 Time of Evaluation: 10:00 - Subjective Subjective: Kristi Nava, PGY2, Progress Note for Dr Puente: Patient seen and examined at bedside. No acute events overnight. States that she is eating well. Report weakness. Denies fever, chills, nausea, vomiting, abdominal pain, leg swelling. Objective - Vital Signs/Intake and Output Vital Signs (last 24 hours): Temp Pulse Resp BP Pulse Ox 97.8 F 78 20 136/60 97 11/24/17 19:56 11/24/17 19:56 11/24/17 19:56 11/24/17 19:56 11/24/17 18:00 Intake and Output: 11/24/17 11/25/17 18:59 06:59 Intake Total 0 Balance 0 - Medications Medications: Current Medications Acetaminophen (Tylenol 325mg Tab) 650 mg PO Q4H PRN PRN Reason: Fever >100.5 F Albuterol/Ipratropium (Duoneb 3 Mg/0.5 Mg (3 Ml) Ud) 3 ml IH [id number] [facility] Last Admin: 11/24/17 19:26 Dose: 3 ml Alprazolam (Xanax) 0.25 mg PO BID [facility] Stop: 11/29/17 18:01 Last Admin: 11/24/17 17:40 Dose: 0.25 mg Al Hydrox/Mg Hydrox/Simethicone 30 ml/Diphenhydramine HCl 75 mg/Lidocaine 30 ml 0 ml PO Q2H PRN PRN Reason: Mouth/Throat Pain Last Admin: 11/22/17 18:45 Dose: 15 ml Dextrose (Dextrose 50% Inj) 0 ml IV STAT PRN; Protocol PRN Reason: Hypoglycemia Protocol Docusate Sodium (Colace) 100 mg PO BID [facility] Last Admin: 11/24/17 17:32 Dose: Not Given Doxycycline Hyclate (Doryx) 100 mg PO Q12 [facility] PRN Reason: Protocol Stop: 12/01/17 22:01 Last Admin: 11/24/17 09:47 Dose: 100 mg Home Med (Home Med) 1 unit PO TID [facility] Last Admin: 11/24/17 17:39 Dose: 1 unit Dextrose (Dextrose 5% In Water 1000 Ml) 1,000 mls @ 0 mls/hr IV .Q0M PRN; Protocol; Per Protocol PRN Reason: Hypoglycemia Protocol Meropenem (Merrem Iv 1 Gm Premix) 50 mls @ 100 mls/hr IVPB Q8 [facility] PRN Reason: Protocol Stop: 12/01/17 14:01 Last Admin: 11/24/17 15:13 Dose: 100 mls/hr Insulin Human Lispro (Humalog Low) 0 units SC ACHS [facility] PRN Reason: Protocol Last Admin: 11/24/17 17:33 Dose: 1 unit Metoclopramide HCl (Reglan) 5 mg PO ACHS [facility] Last Admin: 11/24/17 17:40 Dose: 5 mg Morphine Sulfate (Morphine Extended Release Tab) 30 mg PO Q12 [facility] Last Admin: 11/24/17 09:47 Dose: 30 mg Morphine Sulfate (Morphine) 2 mg IVP Q4 PRN PRN Reason: Pain, severe (8-10) Morphine Sulfate (Morphine Immediate Release Tab) 15 mg PO Q6 PRN PRN Reason: Pain, moderate (4-7) Last Admin: 11/24/17 12:47 Dose: 15 mg Pantoprazole Sodium (Protonix Ec Tab) 40 mg PO ACB [facility] Last Admin: 11/24/17 08:19 Dose: 40 mg - Labs Labs: 11/24/17 06:00 11/24/17 06:00 PT 12.6 SECONDS (9.4-12.5) H 11/24/17 06:00 INR 1.09 11/24/17 06:00 APTT 23.1 Seconds (25.1-36.5) L 11/24/17 06:00 - Additional Findings Additional findings: - Constitutional Appears: Cachectic, Chronically Ill - Head Exam Head Exam: ATRAUMATIC, NORMOCEPHALIC - Eye Exam Eye Exam: EOMI, PERRL. absent: Conjunctival injection, Nystagmus, Scleral icterus Pupil Exam: NORMAL ACCOMODATION, PERRL. absent: Fixed, Irregular, Miosis, Unequal - ENT Exam ENT Exam: Mucous Membranes Moist - Neck Exam Neck exam: Positive for: Full Rom - Respiratory Exam Respiratory Exam: Decreased Breath Sounds, NORMAL BREATHING PATTERN. absent: Accessory Muscle Use, Rhonchi, Wheezes, Stridor - Cardiovascular Exam Cardiovascular Exam: RRR, +S1, +S2. absent: Systolic Murmur - GI/Abdominal Exam GI & Abdominal Exam: Normal Bowel Sounds, Soft. 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, spine mets, COPD, HTN, DM, presents for generalized weakness, right sided cp, found to be pancytopenic, hypokalemic: Right sided cp: likely musculoskeletal, ruled out ACS, PE - trop neg x1, initial EKG neg - CTA neg for PE - US LE prelim read shows no DVT - pain management Generalized weakness: 2/2 radiation, Stage IV metastatic small cell lung cancer - PT eval: home with services - Ensure supplements - pain management - reglan prn - monitor Hypokalemia: - resolved - monitor Neutropenia: - received Neulasta last week 11/18 outpatient - granix 480 mcg sq daily - ANC 1522->734->330->107 today - neutropenic precautions - afebrile - CXR left basilar atelectasis vs infiltrate - CTA shows moderate right pleural effusion with compressive atelectasis. chronic infiltrative changes in left lung. Partial collapse, consolidative changes in RUL - procal 1.14 high - ID consulted. appreciate recs. C/w abx doxy and merrem for HCAP. Note Merrem can also cause pancytopenia - ID recommends short course of antibiotics. - monitor Anemia: - macrocytic MCV 103.8 - Vitamin B12, folate normal - Hgb 8.1 today (prev 9.6). will transfuse 1 unit prbcs. - monitor post transfusion Hgb Thrombocytopenia: - manual plt count 48. - s/p 1 unit platelets yesterday - monitor Hx of COPD: - duonebs - Dr Eastman on board. Appreciate recs. Hx of DM: - HgbA1c 7.2 - ISS low Case seen and discussed with Dr Puente.
--- NOTE | 2017-11-24 20:57 | PN ---
Copied To: Robert Eastman MD Attending MD: Robert Eastman MD DATE: 11/24/2017 PULMONARY PROGRESS NOTE REFERRING PHYSICIAN: Rudy Puente MD SUBJECTIVE: She is sitting up in bed, head at 45 degrees. Night was unremarkable. Able to get out of bed to chair. Able to take few steps. Dry mouth is better. Sore throat is better. No nausea, no vomiting, no diarrhea. No leg pain or leg swelling. OBJECTIVE: GENERAL: In no acute distress. VITAL SIGNS: Temperature is 98, heart rate is 81, respiratory rate is 20, blood pressure 132/52, pulse ox 97% on room air. HEENT: Moist mucous membranes. Crowded airway. NECK: Supple. No JVD. LUNGS: Have a fair airflow with rhonchi. HEART: S1 and S2. ABDOMEN: Soft, nontender. No organomegaly. EXTREMITIES: No edema. NEUROLOGICAL: Awake and alert. Follows simple command. MEDICATIONS: She is on Colace 100 mg twice a day, doxycycline 100 mg twice a day, DuoNeb every 6 hours [id number]. Also, getting Magic mouthwash p.r.n. basis, meropenem 1 g IV every 8 hours, morphine 2 mg IV every 4 hours p.r.n., morphine extended release 30 mg every 12 hours, morphine immediate release 50 mg every 6 hours p.r.n., Protonix 40 mg daily, Reglan 5 mg before meals and at bedtime, Tylenol p.r.n., Xanax 0.25 mg twice a day [id number]. LABORATORY DATA: Shows hemoglobin 8.1, hematocrit 25.4, WBC 0.3, platelet count is 48. INR 1.09, PTT is 23. Sodium 141, potassium 3.9, chloride 106, bicarbonate 27, BUN 6, creatinine 0.3, glucose 160, calcium 7.6, phosphorus 2, AST 30, ALT 28, alkaline phosphatase is 174. Albumin is 3.2. Microbiology: Blood culture has been negative. IMPRESSION AND PLAN: Neutropenia with pancytopenia, status post chemotherapy, small lung cancer, which is extensive disease involving the bone. Also has esophagitis, gastritis, chronic lung disease, anemia, electrolyte imbalance, activities of daily living dysfunction. Pulmonary point of view, doing okay. Continue bronchodilator, keep head at 45 degrees. Gastric prophylaxis. SCDs to lower extremity. Fall precaution. Follow up labs in the morning. Thank you and we will follow with you. Robert Eastman MD
[2017-11-25] MEDS: Albuterol-Ipratrop 3 mg / 0.5 (3 ml) UD IH SCH ×4 (01:46→19:38)
[2017-11-25] MEDS: Meropenem IV 1 gm in NS 50 ML IVPB SCH ×3 (06:04→22:53)
[2017-11-25 07:15] LABS: EOS % 2.6 % (1.5-5.0); GRAN # 0.16 (1.4-6.5); HEMOGLOBIN 10.4 g/dL (12.0-16.0); LYMPH # 0.2 (1.2-3.4); LYMPH % 38.5 % (22.0-35.0); MEAN CELL VOLUME 95.5 fl (80.0-105.0); MEAN CORPUSCULAR HGB CONC 32.5 g/dl (31.0-37.0); MEAN PLATELET VOLUME 9.9 fl (7.0-11.0); MONO # 0.1 (0.1-0.6); MONO % 17.9 % (1.0-6.0); RBC 3.35 10^6/uL (3.5-6.1); RED CELL DISTRIBUTION WIDTH 20.1 % (11.5-14.5)
[2017-11-25 07:26] LABS: PLATELET COUNT 24 10^3/uL (120.0-450.0); WHITE BLOOD COUNT 0.4 10^3/ul (4.5-11.0)
[2017-11-25 07:27] LABS: INR 1.14; PROTHROMBIN TIME 13.1 SECONDS (9.4-12.5)
[2017-11-25 07:30] LABS: PARTIAL THROMBOPLASTIN TIME 23.6 Seconds (25.1-36.5)
[2017-11-25 07:38] LABS: ALB/GLOB RATIO 1.2 (1.1-1.8); ALBUMIN 3.5 g/dL (3.0-4.8); ALT/SGPT 39 U/L (7-56); AST/SGOT 28 U/L (14-36); BLOOD UREA NITROGEN 10 mg/dL (7-21); CALCIUM 7.9 mg/dL (8.4-10.5); GFR AFRICAN-AMERICAN > 60; GFR NON-AFRICAN AMERICAN > 60
[2017-11-25 08:15] LABS: PLATELET COUNT MANUAL 45 K/mm3 (120-450)
[2017-11-25] MEDS ORDERED: Potassium Chloride 20 mEq ER Tab PO STA (08:19)
[2017-11-25] MEDS: Insulin Lispro (humaLOG) LOW Coverage SC SCH ×5 (08:32→23:02)
[2017-11-25] MEDS: Pantoprazole 40 mg EC Tab PO SCH (08:33)
[2017-11-25] MEDS: Morphine 30 mg SR Tab PO SCH ×2 (09:51→22:49)
[2017-11-25] MEDS: Morphine 2 mg/ml ISec IVP PRN (13:49)
--- NOTE | 2017-11-25 15:02 | CP.PCM.PN ---
Subjective - Date & Time of Evaluation Date of Evaluation: 11/25/17 Time of Evaluation: 12:50 - Subjective Subjective: Patient is trying to eat, no abdominal pain, no nausea, no diarrhea, no SOB at rest, no cough. Objective - Vital Signs/Intake and Output Vital Signs (last 24 hours): Temp Pulse Resp BP Pulse Ox 97.4 F L 85 20 151/82 H 95 11/25/17 07:35 11/25/17 07:35 11/25/17 07:35 11/25/17 07:35 11/25/17 07:35 Intake and Output: 11/25/17 11/25/17 06:59 18:59 Intake Total 3230 Output Total 350 Balance 2880 - Medications Medications: Current Medications Acetaminophen (Tylenol 325mg Tab) 650 mg PO Q4H PRN PRN Reason: Fever >100.5 F Albuterol/Ipratropium (Duoneb 3 Mg/0.5 Mg (3 Ml) Ud) 3 ml IH [id number] [facility] Last Admin: 11/25/17 07:57 Dose: 3 ml Alprazolam (Xanax) 0.25 mg PO BID [facility] Stop: 11/29/17 18:01 Last Admin: 11/24/17 17:40 Dose: 0.25 mg Al Hydrox/Mg Hydrox/Simethicone 30 ml/Diphenhydramine HCl 75 mg/Lidocaine 30 ml 0 ml PO Q2H PRN PRN Reason: Mouth/Throat Pain Last Admin: 11/22/17 18:45 Dose: 15 ml Dextrose (Dextrose 50% Inj) 0 ml IV STAT PRN; Protocol PRN Reason: Hypoglycemia Protocol Docusate Sodium (Colace) 100 mg PO BID [facility] Last Admin: 11/25/17 09:49 Dose: 100 mg Doxycycline Hyclate (Doryx) 100 mg PO Q12 [facility] PRN Reason: Protocol Stop: 12/01/17 22:01 Last Admin: 11/25/17 09:49 Dose: 100 mg Home Med (Home Med) 1 unit PO TID [facility] Last Admin: 11/24/17 17:39 Dose: 1 unit Dextrose (Dextrose 5% In Water 1000 Ml) 1,000 mls @ 0 mls/hr IV .Q0M PRN; Protocol; Per Protocol PRN Reason: Hypoglycemia Protocol Meropenem (Merrem Iv 1 Gm Premix) 50 mls @ 100 mls/hr IVPB Q8 [facility]IMMY PRN Reason: Protocol Stop: 12/01/17 14:01 Last Admin: 11/25/17 06:04 Dose: 100 mls/hr Insulin Human Lispro (Humalog Low) 0 units SC ACHS [facility] PRN Reason: Protocol Last Admin: 11/25/17 08:33 Dose: 1 unit Metoclopramide HCl (Reglan) 5 mg PO ACHS [facility] Last Admin: 11/25/17 08:33 Dose: 5 mg Morphine Sulfate (Morphine Extended Release Tab) 30 mg PO Q12 [facility] Last Admin: 11/25/17 09:51 Dose: 30 mg Morphine Sulfate (Morphine) 2 mg IVP Q4 PRN PRN Reason: Pain, severe (8-10) Morphine Sulfate (Morphine Immediate Release Tab) 15 mg PO Q6 PRN PRN Reason: Pain, moderate (4-7) Last Admin: 11/24/17 12:47 Dose: 15 mg Pantoprazole Sodium (Protonix Ec Tab) 40 mg PO ACB [facility] Last Admin: 11/25/17 08:33 Dose: 40 mg - Labs Labs: 11/25/17 07:00 11/25/17 07:00 PT 13.1 SECONDS (9.4-12.5) H 11/25/17 07:00 INR 1.14 11/25/17 07:00 APTT 23.6 Seconds (25.1-36.5) L 11/25/17 07:00 - Constitutional Appears: Chronically Ill - Head Exam Head Exam: NORMAL INSPECTION - Neck Exam Neck Exam: absent: Meningismus - Respiratory Exam Respiratory Exam: Decreased Breath Sounds - Cardiovascular Exam Cardiovascular Exam: +S1, +S2 - GI/Abdominal Exam GI & Abdominal Exam: Soft. absent: Tenderness Assessment and Plan - Assessment and Plan (Free Text) Plan: Assessment sepsis due to right sided HCAP, with neutropenia history of sepsis due to right middle lobe HCAP on top of ESBL Klebsiella and Proteus UTI stage 3 decubitus ulcer history of Systemic viral illness with Influenza and acute bronchitis stage 4 lung cancer history of asymptomatic bacteriuria with VRE in the urine DM HTN depression lower back tumor obesity with BMI 30 Plan continue Doxycycline and Merrem day 4 to complete 4-7 days of therapy overall prognosis is poor
[2017-11-25] MEDS ORDERED: Magnesium Sulfate 1 gm in D5W 1 GM/100 ML BAG IVPB ONE (15:05)
--- NOTE | 2017-11-25 15:58 | CP.PCM.CON ---
History of Present Illness - History of Present Illness History of Present Illness: Palliative consult requested by Dr Juan Puente Reason: Goals of care and advance care planning 72 year old female with history of metastatic lung cancer, DM, HTN ,UTI who who presented to ED on 11/21/17 with weakness,confusion. She had received chemotherapy the day before. Labs showing pancytopenia. Chest Ct revealed moderate right pleural effusion with compressive atelectasis, chronic infiltrative changes in left lung, consolidation RUL with partial collapse, osseous and hepatic metastasis. PMHx: lung cancer metastatic to bone, liver and retro peritoneum, DM, depression , UTI and HCAP. PSH: right knee replacement, Port a Cath, C section Social History: Former smoker, no alcohol or drug use. Lives independently. Family History: Non contributory. Review of Systems: As per HPI, 12 point review negative Past Patient History - Infectious Disease Hx of Infectious Diseases: None - Tetanus Immunizations Tetanus Immunization: Unknown - Past Medical History & Family History Past Medical History?: Yes - Past Social History Smoking Status: Former Smoker - CARDIAC Hx Congestive Heart Failure: Yes Hx Hypercholesterolemia: Yes Hx Hypertension: Yes - PULMONARY Hx Respiratory Disorders: Yes Hx Pneumonia: Yes Other/Comment: small cell lung ca - NEUROLOGICAL Hx Neurological Disorder: No - HEENT Hx HEENT Problems: Yes (eyeglases) - RENAL Hx Chronic Kidney Disease: No - ENDOCRINE/METABOLIC Hx Diabetes Mellitus Type 2: Yes - HEMATOLOGICAL/ONCOLOGICAL Hx Blood Disorders: Yes Hx Anemia: Yes Hx Cancer: Yes (lung) Hx Chemotherapy: Yes (Last Tx 11/20/17) Hx Metastesis: Yes (liver, bone,[spine & epidural mass]) Other/Comment: radiation markings to abd abd chest - INTEGUMENTARY Hx Dermatological Problems: Yes Other/Comment: SACRAL PRESSURE ULCER stg 2 1cm x 1cm wound bed is red/pink surounded by reddish skin optifoam intact, multiple purple and red skin discolorations to both legs and arms, thick long hard toenails, radiation markings to abd and chest - MUSCULOSKELETAL/RHEUMATOLOGICAL Hx Arthritis: Yes - GASTROINTESTINAL Hx Gastrointestinal Disorders: Yes (constipation/ nausea) - GENITOURINARY/GYNECOLOGICAL Hx Genitourinary Disorders: Yes Hx Incontinence: Yes - PSYCHIATRIC Hx Psychophysiologic Disorder: Yes Hx Anxiety: Yes Hx Depression: Yes - SURGICAL HISTORY Hx Surgeries: Yes Hx Appendectomy: Yes Hx Cardiac Catheterization: Yes Hx Joint Replacement: Yes (RIGHT TKR 10/2012) Other/Comment: knee replacement 2012 right, 2 c-sections, r cw pac - ANESTHESIA Hx Anesthesia Reactions: No Hx Malignant Hyperthermia: No Meds Home Medications: Home Medication List Medication Instructions Recorded Confirmed Type Desvenlafaxine [Desvenlafaxine ER] 50 mg PO DAILY #30 tab.er.24h 11/22/17 Rx Allergies/Adverse Reactions: Allergies Allergy/AdvReac Type Severity Reaction Status Date / Time Sulfa (Sulfonamide Allergy ANAPHYLAXIS Verified 11/21/17 14:19 Antibiotics) - Medications Medications: Current Medications Acetaminophen (Tylenol 325mg Tab) 650 mg PO Q4H PRN PRN Reason: Fever >100.5 F Albuterol/Ipratropium (Duoneb 3 Mg/0.5 Mg (3 Ml) Ud) 3 ml IH [id number] [facility] Last Admin: 11/25/17 13:43 Dose: 3 ml Alprazolam (Xanax) 0.25 mg PO BID [facility] Stop: 11/29/17 18:01 Last Admin: 11/24/17 17:40 Dose: 0.25 mg Al Hydrox/Mg Hydrox/Simethicone 30 ml/Diphenhydramine HCl 75 mg/Lidocaine 30 ml 0 ml PO Q2H PRN PRN Reason: Mouth/Throat Pain Last Admin: 11/22/17 18:45 Dose: 15 ml Dextrose (Dextrose 50% Inj) 0 ml IV STAT PRN; Protocol PRN Reason: Hypoglycemia Protocol Docusate Sodium (Colace) 100 mg PO BID [facility] Last Admin: 11/25/17 09:49 Dose: 100 mg Doxycycline Hyclate (Doryx) 100 mg PO Q12 [facility]MY PRN Reason: Protocol Stop: 12/01/17 22:01 Last Admin: 11/25/17 09:49 Dose: 100 mg Home Med (Home Med) 1 unit PO TID [facility] Last Admin: 11/24/17 17:39 Dose: 1 unit Dextrose (Dextrose 5% In Water 1000 Ml) 1,000 mls @ 0 mls/hr IV .Q0M PRN; Protocol; Per Protocol PRN Reason: Hypoglycemia Protocol Meropenem (Merrem Iv 1 Gm Premix) 50 mls @ 100 mls/hr IVPB Q8 KIMMY PRN Reason: Protocol Stop: 12/01/17 14:01 Last Admin: 11/25/17 13:37 Dose: 100 mls/hr Magnesium Sulfate/Dextrose (Magnesium Sulfate 1 Gm/100 Ml D5w) 1 gm in 100 mls @ 100 mls/hr IVPB ONCE ONE Stop: 11/25/17 16:04 Insulin Human Lispro (Humalog Low) 0 units [facility] PRN Reason: Protocol Last Admin: 11/25/17 15:08 Dose: Not Given Magnesium Oxide (Mag-Ox) 400 mg PO BID [facility] Metoclopramide HCl (Reglan) 5 mg PO ACHS [facility] Last Admin: 11/25/17 11:30 Dose: 5 mg Morphine Sulfate (Morphine Extended Release Tab) 30 mg PO Q12 [facility] Last Admin: 11/25/17 09:51 Dose: 30 mg Morphine Sulfate (Morphine) 2 mg IVP Q4 PRN PRN Reason: Pain, severe (8-10) Last Admin: 11/25/17 13:49 Dose: 2 mg Morphine Sulfate (Morphine Immediate Release Tab) 15 mg PO Q6 PRN PRN Reason: Pain, moderate (4-7) Last Admin: 11/24/17 12:47 Dose: 15 mg Pantoprazole Sodium (Protonix Ec Tab) 40 mg PO ACB [facility] Last Admin: 11/25/17 08:33 Dose: 40 mg Physical Exam - Constitutional Appears: Chronically Ill - Head Exam Head Exam: NORMAL INSPECTION - Eye Exam Eye Exam: Normal appearance, PERRL - ENT Exam ENT Exam: Mucous Membranes Moist, Normal Oropharynx - Neck Exam Neck exam: Positive for: Normal Inspection - Respiratory Exam Respiratory Exam: Decreased Breath Sounds, NORMAL BREATHING PATTERN - Cardiovascular Exam Cardiovascular Exam: REGULAR RHYTHM, +S1, +S2 - GI/Abdominal Exam GI & Abdominal Exam: Normal Bowel Sounds, Soft - Extremities Exam Extremities exam: Positive for: normal capillary refill, pedal edema - Back Exam Back exam: NORMAL INSPECTION, vertebral tenderness - Neurological Exam Neurological exam: Alert, Oriented x3 - Skin Skin Exam: Dry, Pallor, Warm - Additional Findings Additional findings: Palliative performance scale rating 50% Results - Vital Signs Recent Vital Signs: Last Vital Signs Temp 97.4 F L 11/25/17 07:35 Pulse 85 11/25/17 07:35 Resp 20 11/25/17 07:35 BP 151/82 H 11/25/17 07:35 Pulse Ox 95 11/25/17 07:35 - Labs Result Diagrams: 11/25/17 07:00 11/25/17 07:00 Labs: Laboratory Results - last 24 hr 11/24/17 11/24/17 11/24/17 12:45 15:48 21:12 WBC RBC Hgb Hct MCV MCH MCHC RDW Plt Count Manual Plt Count MPV Gran % Lymph % (Auto) Thayer % (Auto) Eos % (Auto) Baso % (Auto) Gran # Lymph # (Auto) Thayer # (Auto) Eos # (Auto) Baso # (Auto) PT INR APTT Sodium Potassium Chloride Carbon Dioxide Anion Gap BUN Creatinine Est GFR ( Amer) Est GFR (Non-Af Amer) POC Glucose (mg/dL) 193 H 294 H Random Glucose Calcium Phosphorus Magnesium Total Bilirubin AST ALT Alkaline Phosphatase Total Protein Albumin Globulin Albumin/Globulin Ratio Blood Type A POSITIVE Antibody Screen Negative Crossmatch See Detail BBK History Checked Patient has bt 11/25/17 11/25/17 11/25/17 07:00 07:00 07:00 WBC 0.4 L* D RBC 3.35 L Hgb 10.4 L D Hct 32.0 L MCV 95.5 D MCH 31.0 MCHC 32.5 RDW 20.1 H Plt Count 24 L* Manual Plt Count 45 L* MPV 9.9 Gran % 41.0 L Lymph % (Auto) 38.5 H Thayer % (Auto) 17.9 H Eos % (Auto) 2.6 Baso % (Auto) 0.0 Gran # 0.16 L Lymph # (Auto) 0.2 L Thayer # (Auto) 0.1 Eos # (Auto) 0.0 Baso # (Auto) 0.00 PT 13.1 H INR 1.14 APTT 23.6 L Sodium 140 Potassium 3.5 L Chloride 100 Carbon Dioxide 29 Anion Gap 15 BUN 10 Creatinine 0.4 L Est GFR ( Amer) > 60 Est GFR (Non-Af Amer) > 60 POC Glucose (mg/dL) Random Glucose 207 H Calcium 7.9 L Phosphorus 2.0 L Magnesium 1.6 L Total Bilirubin 0.9 AST 28 ALT 39 Alkaline Phosphatase 169 H Total Protein 6.5 Albumin 3.5 Globulin 2.9 Albumin/Globulin Ratio 1.2 Blood Type Antibody Screen Crossmatch BBK History Checked 11/25/17 11/25/17 07:30 11:15 WBC RBC Hgb Hct MCV MCH MCHC RDW Plt Count Manual Plt Count MPV Gran % Lymph % (Auto) Thayer % (Auto) Eos % (Auto) Baso % (Auto) Gran # Lymph # (Auto) Thayer # (Auto) Eos # (Auto) Baso # (Auto) PT INR APTT Sodium Potassium Chloride Carbon Dioxide Anion Gap BUN Creatinine Est GFR ( Amer) Est GFR (Non-Af Amer) POC Glucose (mg/dL) 186 H 118 H Random Glucose Calcium Phosphorus Magnesium Total Bilirubin AST ALT Alkaline Phosphatase Total Protein Albumin Globulin Albumin/Globulin Ratio Blood Type Antibody Screen Crossmatch BBK History Checked Assessment & Plan - Assessment and Plan (Free Text) Assessment: 72 year old female with history of metastatic lung cancer, DM, HTN, pneumonia who is admitted with pancytopenia, weakness, pneumonia. The patient is alert, oriented and is requesting to initiate POLST Directive. The patient is aware of her diagnosis and guarded prognosis. Benefit and burdens of CPR/intubation explained in detail. Maria Elena states she wants "everything done", meaning she wants CPR/intubation, dialysis, feeding tube. She appointed her son Usman Ye as her health care surrogate. Evan VENEGASles has been in conversations with Usman regarding goals of care. Ms. Powers reports Usman is willing to support his mother's wishes and goals as her health care proxy. Time spent in goals of care discussion, 30 minutes Plan: Goals of care and advance care planning: POLST/full code Pneumonia; On Merrem and Doxycycline, ID following Pancytopenia: s/p transfusion, On Granix, Hem/Onc following. Deconditioning: PT/OT
--- NOTE | 2017-11-25 16:12 | CP.PCM.PN ---
Subjective - Date & Time of Evaluation Date of Evaluation: 11/25/17 Time of Evaluation: 16:05 - Subjective Subjective: Kristi Nava, PGY2, Progress Note for Dr Puente: Patient seen and examined while patient sitting in the chair. No acute events overnight. States that she is eating well. However, patient reports ongoing weakness. Patient's family at bedside, updated her about patient's condition as per patient's request. Denies fever, chills, nausea, vomiting, hemaotchezia, petechiae, mucosal bleeding, melena, abdominal pain, leg swelling. Objective - Vital Signs/Intake and Output Vital Signs (last 24 hours): Temp Pulse Resp BP Pulse Ox 97.4 F L 85 20 151/82 H 95 11/25/17 07:35 11/25/17 07:35 11/25/17 07:35 11/25/17 07:35 11/25/17 07:35 Intake and Output: 11/25/17 11/25/17 06:59 18:59 Intake Total 3230 Output Total 350 Balance 2880 - Medications Medications: Current Medications Acetaminophen (Tylenol 325mg Tab) 650 mg PO Q4H PRN PRN Reason: Fever >100.5 F Albuterol/Ipratropium (Duoneb 3 Mg/0.5 Mg (3 Ml) Ud) 3 ml IH [id number] [facility] Last Admin: 11/25/17 13:43 Dose: 3 ml Alprazolam (Xanax) 0.25 mg PO BID [facility] Stop: 11/29/17 18:01 Last Admin: 11/24/17 17:40 Dose: 0.25 mg Al Hydrox/Mg Hydrox/Simethicone 30 ml/Diphenhydramine HCl 75 mg/Lidocaine 30 ml 0 ml PO Q2H PRN PRN Reason: Mouth/Throat Pain Last Admin: 11/22/17 18:45 Dose: 15 ml Dextrose (Dextrose 50% Inj) 0 ml IV STAT PRN; Protocol PRN Reason: Hypoglycemia Protocol Docusate Sodium (Colace) 100 mg PO BID [facility] Last Admin: 11/25/17 09:49 Dose: 100 mg Doxycycline Hyclate (Doryx) 100 mg PO Q12 [facility] PRN Reason: Protocol Stop: 12/01/17 22:01 Last Admin: 11/25/17 09:49 Dose: 100 mg Home Med (Home Med) 1 unit PO TID [facility] Last Admin: 11/24/17 17:39 Dose: 1 unit Dextrose (Dextrose 5% In Water 1000 Ml) 1,000 mls @ 0 mls/hr IV .Q0M PRN; Protocol; Per Protocol PRN Reason: Hypoglycemia Protocol Meropenem (Merrem Iv 1 Gm Premix) 50 mls @ 100 mls/hr IVPB Q8 [facility]IMMY PRN Reason: Protocol Stop: 12/01/17 14:01 Last Admin: 11/25/17 13:37 Dose: 100 mls/hr Insulin Human Lispro (Humalog Low) 0 units SC ACHS [facility] PRN Reason: Protocol Last Admin: 11/25/17 15:08 Dose: Not Given Magnesium Oxide (Mag-Ox) 400 mg PO BID [facility] Metoclopramide HCl (Reglan) 5 mg PO ACHS [facility] Last Admin: 11/25/17 11:30 Dose: 5 mg Morphine Sulfate (Morphine Extended Release Tab) 30 mg PO Q12 [facility] Last Admin: 11/25/17 09:51 Dose: 30 mg Morphine Sulfate (Morphine) 2 mg IVP Q4 PRN PRN Reason: Pain, severe (8-10) Last Admin: 11/25/17 13:49 Dose: 2 mg Morphine Sulfate (Morphine Immediate Release Tab) 15 mg PO Q6 PRN PRN Reason: Pain, moderate (4-7) Last Admin: 11/24/17 12:47 Dose: 15 mg Pantoprazole Sodium (Protonix Ec Tab) 40 mg PO ACB [facility] Last Admin: 11/25/17 08:33 Dose: 40 mg - Labs Labs: 11/25/17 07:00 11/25/17 07:00 PT 13.1 SECONDS (9.4-12.5) H 11/25/17 07:00 INR 1.14 11/25/17 07:00 APTT 23.6 Seconds (25.1-36.5) L 11/25/17 07:00 - Additional Findings Additional findings: - Constitutional Appears: Cachectic, Chronically Ill - Head Exam Head Exam: ATRAUMATIC, NORMOCEPHALIC - Eye Exam Eye Exam: EOMI, PERRL. absent: Conjunctival injection, Nystagmus, Scleral icterus Pupil Exam: NORMAL ACCOMODATION, PERRL. absent: Fixed, Irregular, Miosis, Unequal - ENT Exam ENT Exam: Mucous Membranes Moist - Neck Exam Neck exam: Positive for: Full Rom - Respiratory Exam Respiratory Exam: Decreased Breath Sounds, NORMAL BREATHING PATTERN. absent: Accessory Muscle Use, Rhonchi, Wheezes, Stridor - Cardiovascular Exam Cardiovascular Exam: RRR, +S1, +S2. absent: Systolic Murmur - GI/Abdominal Exam GI & Abdominal Exam: Normal Bowel Sounds, Soft. 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, spine mets, COPD, HTN, DM, presents for generalized weakness, right sided cp, found to be pancytopenic, hypokalemic: Right sided cp: likely musculoskeletal, ruled out ACS, PE - trop neg x1, initial EKG neg - CTA neg for PE - US LE prelim read shows no DVT - pain management Generalized weakness: 2/2 radiation, 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 chronic infiltrative changes in left lung. Partial collapse, consolidative changes in RUL - procal 1.14 high - ID consulted. appreciate recs. C/w abx doxy and merrem for HCAP. Note Merrem can also cause pancytopenia - ID recommends short course of antibiotics. - monitor Anemia: - macrocytic MCV 103.8 - Vitamin B12, folate normal - Hgb 10.4 today (prev 8.1). s/p 2 units prbcs 11/24 - monitor Thrombocytopenia: - manual plt count 45 - s/p 1 unit platelets 11/23 - monitor Hx of COPD: - nikunj - Dr Eastman on board. Appreciate recs. Hx of DM: - HgbA1c 7.2 - ISS low Palliative consult called. f/u recs. Case seen and discussed with Dr Puente.
[2017-11-25] MEDS: Magnesium Oxide 400 mg Tab UD PO SCH (17:08)
--- NOTE | 2017-11-25 21:45 | PN ---
Copied To: Robert Eastman MD Attending MD: Robert Eastman MD DATE: 11/25/2017 PULMONARY PROGRESS NOTE REFERRING PHYSICIAN: Dr. Puente. SUBJECTIVE: She is lying in the reclining chair. Night was unremarkable. Feels better. Mouth is less dry. No more sore throat. Breathing is better. Get short of breath on exertion. No nausea, no vomiting, no diarrhea. No leg pain or leg swelling. OBJECTIVE: GENERAL: In no acute distress. VITAL SIGNS: Temperature is 98, heart rate 85, respiratory rate is 20, blood pressure 151/82, pulse ox 95% on 3 L nasal cannula. HEENT: Moist mucous membrane. Crowded airway. NECK: Supple. No JVD. LUNGS: Few scattered rhonchi. HEART: S1 and S2. ABDOMEN: Soft, nontender. No organomegaly. EXTREMITIES: No edema. NEUROLOGIC: Awake, alert, and follows simple command. MEDICATIONS: She is on Colace 100 mg twice a day, IV fluid D5 water as per hypoglycemic protocol, doxycycline 100 mg twice a day, DuoNeb every 6 hours [id number], Magic mouthwash p.r.n. basis, mag oxide 400 mg twice a day, meropenem 1 g IV every 8 hours, morphine extended release 30 mg every 12 hours, morphine immediate release 15 mg every 6 hours p.r.n., Protonix 40 mg a.c.b., Reglan 5 mg before meals and at bedtime, Tylenol p.r.n. basis, Xanax 0.25 mg twice a day. LABORATORY DATA: Shows hemoglobin 10.4, hematocrit 32, WBC 0.4, and platelet count is 45. INR 1.14. PTT is 24. Sodium 140, potassium 3.5, chloride 100, bicarbonate 29. BUN is 10, creatinine 0.4. Glucose 207. Calcium 7.9, phosphorus 2, magnesium 1.6. AST 28, ALT 39, alk phos is 169. Albumin is 3.5. Microbiology: Blood culture, urine culture, , there is no growth. IMPRESSION AND PLAN: Neutropenic pancytopenia, has been on chemotherapy. Small lung cancer with extensive disease involving the bones, esophagitis, gastritis, chronic lung disease, anemia, activities of daily living dysfunction. Pulmonary point of view, doing okay. Continue bronchodilator. Keep head at 45 degrees. May continue Magic solution to the mouth, gastric prophylaxis, sequential compression device to lower extremity, antibiotics as per Infectious Diseases. Get physical therapy involved. Follow up labs in the morning. Thank you and we will follow with you. Robert Eastman MD Jo # [id number]
[2017-11-26] MEDS: Albuterol-Ipratrop 3 mg / 0.5 (3 ml) UD IH SCH ×5 (01:19→21:00)
[2017-11-26] MEDS: Meropenem IV 1 gm in NS 50 ML IVPB SCH ×3 (05:48→21:45)
[2017-11-26 07:22] LABS: INR 1.08; PROTHROMBIN TIME 12.4 SECONDS (9.4-12.5)
[2017-11-26 07:24] LABS: PARTIAL THROMBOPLASTIN TIME 24.6 Seconds (25.1-36.5)
[2017-11-26 07:43] LABS: ALB/GLOB RATIO 1.2 (1.1-1.8); ALBUMIN 3.5 g/dL (3.0-4.8); ALT/SGPT 43 U/L (7-56); AST/SGOT 36 U/L (14-36); BLOOD UREA NITROGEN 15 mg/dL (7-21); CALCIUM 8.5 mg/dL (8.4-10.5); GFR AFRICAN-AMERICAN > 60; GFR NON-AFRICAN AMERICAN > 60
[2017-11-26 08:24] LABS: EOS % 0.9 % (1.5-5.0); GRAN # 0.62 (1.4-6.5); GRAN % 56.9 % (50.0-68.0); HEMOGLOBIN 10.6 g/dL (12.0-16.0); LYMPH # 0.3 (1.2-3.4); LYMPH % 22.9 % (22.0-35.0); MEAN CELL VOLUME 96.8 fl (80.0-105.0); MEAN CORPUSCULAR HEMOGLOBIN 31.3 pg (25.0-35.0); MEAN CORPUSCULAR HGB CONC 32.3 g/dl (31.0-37.0); MEAN PLATELET VOLUME 10.5 fl (7.0-11.0); MONO # 0.2 (0.1-0.6); MONO % 19.3 % (1.0-6.0); RBC 3.39 10^6/uL (3.5-6.1)
[2017-11-26 08:26] LABS: PLATELET COUNT 15 10^3/uL (120.0-450.0); WHITE BLOOD COUNT 1.1 10^3/ul (4.5-11.0)
[2017-11-26] MEDS: Morphine 15 mg Immediate Release Tab PO PRN ×2 (08:55→17:44)
[2017-11-26] MEDS: Pantoprazole 40 mg EC Tab PO SCH (08:55)
[2017-11-26] MEDS: Insulin Lispro (humaLOG) LOW Coverage SC SCH ×4 (08:56→21:54)
[2017-11-26] MEDS: Morphine 30 mg SR Tab PO SCH ×2 (11:43→21:45)
[2017-11-26] MEDS: Magnesium Oxide 400 mg Tab UD PO SCH ×2 (11:44→17:44)
--- NOTE | 2017-11-26 11:49 | PN ---
Copied To: Jorge Luis Hernandez MD Attending MD: Jorge Luis Hernandez MD DATE: 11/26/2017 SUBJECTIVE: The patient seen earlier today in bed in no acute distress. PHYSICAL EXAMINATION: VITAL SIGNS: Temperature is 97, blood pressure is 125/70, respiratory rate of 20, heart rate of 97. HEENT: Examination of HEENT is unremarkable. NECK: Supple. LUNGS: Have decreased breath sounds. HEART: Normal S1 and S2. ABDOMEN: Soft. LABORATORY DATA: Reveals a white count is 1.1 with 56% granulocytosis and the patient has 620 absolute granulocyte count and chemistries are noted. Urinalysis is noted. Microbiology is noted to be negative. The blood cultures and urine cultures, multiple organisms and the patient's procalcitonin is reported to be at 1.14. REVIEW OF ORDERS: Reveals the patient to be on doxycycline and meropenem. Dr. Eastman's progress note from yesterday is noted. Beatriz Starr's consultation is reviewed. ASSESSMENT AND PLAN: This is a 72-year-old female with sepsis due to right-sided healthcare-associated pneumonia, neutropenia, history of sepsis to the right middle lobe, healthcare-associated pneumonia on top of rkbhhanb-lkduystw-cnzb-lactamase Klebsiella Proteus urinary tract infection, and stage III decubitus ulcer, and stage IV lung cancer on doxycycline and meropenem day #5, would complete 4 to 7 days of antibiotics. We will discontinue the antibiotics in next 24-48 hours, with microbiology reviewed. Overall prognosis is poor. Jorge Luis Hernandez MD
[2017-11-26] MEDS: PRISTIQ 50 MG PO SCH ×2 (14:24→17:45)
--- NOTE | 2017-11-26 15:52 | PN ---
Copied To: Yosef Reis MD Attending MD: Yosef Reis MD DATE: 11/26/[address] [facility] visit on the medical floor. For Dr. Puente. SUBJECTIVE: The patient is a 72-year-old female in neutropenic precaution isolation at present due to neutropenia and thrombocytopenic indices. Presently getting Granix on a daily basis as per Dr. Puente's recommendations, reported that she feels weak, but is otherwise without complaint today. She is known to suffer from stage IV cancer with lung metastasis to the liver, spine, retroperitoneal nodes being positive, also from diabetes, depression with intractable pain of cancer. OBJECTIVE PHYSICAL EXAMINATION: VITAL SIGNS: Temperature 97.8, pulse 78, respirations 20, blood pressure 149/85, pulse ox 95%. HEENT: Unremarkable. The patient is wearing a wig for hair loss status post chemotherapy. NECK: Supple. HEART: Regular rate. LUNGS: Occasional rhonchi. ABDOMEN: Obese, soft, nontender. EXTREMITIES: No edema. SKIN: Warm and dry with ecchymotic changes on her arms. Skin is warm, dry with decubitus changes of her sacrum noted on previous visits, now improving, she reports with no petechiae noted to the oropharynx upon inspection. NEUROLOGIC: Awake and alert. LABORATORY DATA: The patient's labs were done. White blood cell count of 1.1, up from 0.4 yesterday; hemoglobin of 10.6. She was transfused for hemoglobin 8.1 two days prior with a platelet count today of 15,000, 24,000 yesterday with a manual count of 45,000 yesterday with the patient being transfused for a platelet count of 13,000 three days prior. Her chem metabolic panel shows a phosphorus 2.3, nonfasting glucose of 179. Otherwise, normal chem metabolic panel with an INR of 1.08, PTT of 24.6. The patient's cultures grew out Proteus mirabilis in her urine culture on previous hospitalizations; however, her urine specimen on 11/21/2017 showed multiple species suggesting repeating the specimen with VRE culture for rectal fluid showing none detected. ASSESSMENT: The assessment for this patient is that of sepsis with healthcare-associated pneumonia, neutropenia, history of Proteus urine infections, stage II decubitus ulcer, stage IV cancer of the lung, thrombocytopenia, neutropenia, diabetes mellitus, hypertension, deconditioning, anxiety, obesity, anemia of chronic disease, peripheral vascular disease, gait disturbance, chronic obstructive pulmonary disease, intractable pain of cancer. PLAN: Plan for this patient after conversation with Dr. Puente is to continue present medical regimen. We will monitor clinically and with labs. We will transfuse 1 unit of single-donor frozen platelets after premedications will be given with manual platelet count to be checked in the morning along with her other labs. We will continue the present medical regimen including Granix 480 mcg subcu daily along with narcotic analgesics for her pain as indicated with antibiotic coverage as indicated by Dr. Hernandez at present on doxycycline. The prognosis for this patient is guarded. This is a complex patient with comprehensive medically necessary and appropriate visit carried out in excess of 40 minutes at the bedside and evaluation of the patient's medical records and discussion with other doctors regarding her care along with nursing. Yosef Reis MD
--- NOTE | 2017-11-26 22:07 | PN ---
Copied To: Robert Eastman MD Attending MD: Robert Eastman MD DATE: 11/26/2017 PULMONARY PROGRESS NOTE REFERRING PHYSICIAN: Yosef Reis MD SUBJECTIVE: The patient is lying in the bed, head at 45 degrees. Family is at bedside. Night was unremarkable. Feels tired today. No cough. No sputum production. No nausea, no vomiting, no diarrhea. No leg pain or leg swelling. OBJECTIVE: GENERAL: In no acute distress. VITAL SIGNS: Temperature is 98, heart rate 89, respiratory rate is 20, blood pressure 134/74, pulse ox 96% on room air. HEENT: Moist mucous membrane. Small oral cavity. NECK: Supple. No JVD. LUNGS: Have fair airflow with rhonchi. HEART: S1, S2. ABDOMEN: Soft, nontender, no organomegaly. EXTREMITIES: No edema. NEUROLOGIC: Awake and alert, follows simple command. MEDICATIONS: She is on doxycycline 100 mg twice a day, DuoNeb every 6 hours [id number], insulin coverage, Magic mouth wash every 2 hours p.r.n., mag oxide 400 mg twice a day, meropenem 1 g IV every 8 hours, morphine 2 mg every 4 hours p.r.n., morphine sulfate extended release 30 mg every 12 hours, Protonix 40 mg daily, Reglan 5 mg before lunch and at bedtime, Tylenol p.r.n., Xanax 0.25 mg twice a day. LABORATORY DATA: Shows hemoglobin 10.6, hematocrit 32.8, WBC 1.1, platelet is 15. INR 1.08. PTT 25. Sodium 141, potassium 3.8, chloride 104, bicarbonate 27, BUN 15, creatinine 0.4, glucose 159, calcium 8.5, phosphorus 2.3, magnesium 1.9, AST 36, ALT 43, alk phos is 203. Albumin is 3.5. Microbiology, blood culture, urine culture, fluid culture so far negative. IMPRESSION AND PLAN: Pancytopenic, neutropenic and thrombocytopenic, status post chemotherapy. 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 Spoke to the family at bedside. All the questions answered. Continue bronchodilator. Keep head at 45 degrees. Sleep apnea precaution. Careful with sedation. May continue Magic solution for the mouth, gastric prophylaxis. Sequential compression devices to lower extremity. Follow up labs in the morning. Fall precaution. Bleeding precaution. Thank you and we will follow with you. Robert Eastman MD
[2017-11-27] MEDS: Albuterol-Ipratrop 3 mg / 0.5 (3 ml) UD IH SCH ×4 (02:25→20:16)
[2017-11-27] MEDS: Meropenem IV 1 gm in NS 50 ML IVPB SCH (05:30)
[2017-11-27 07:15] LABS: GRAN # 1.89 (1.4-6.5); GRAN % 86.7 % (50.0-68.0); HEMOGLOBIN 10.4 g/dL (12.0-16.0); LYMPH # 0.3 (1.2-3.4); LYMPH % 11.5 % (22.0-35.0); MEAN CELL VOLUME 97.9 fl (80.0-105.0); MEAN CORPUSCULAR HEMOGLOBIN 31.3 pg (25.0-35.0); MEAN PLATELET VOLUME 9.2 fl (7.0-11.0); MONO % 1.8 % (1.0-6.0); RBC 3.32 10^6/uL (3.5-6.1); RED CELL DISTRIBUTION WIDTH 18.9 % (11.5-14.5)
[2017-11-27 07:21] LABS: INR 1.09; PROTHROMBIN TIME 12.6 SECONDS (9.4-12.5)
[2017-11-27 07:24] LABS: PARTIAL THROMBOPLASTIN TIME 24.3 Seconds (25.1-36.5)
[2017-11-27 07:35] LABS: ALB/GLOB RATIO 1.2 (1.1-1.8); ALBUMIN 3.4 g/dL (3.0-4.8); ALT/SGPT 41 U/L (7-56); AST/SGOT 31 U/L (14-36); BLOOD UREA NITROGEN 13 mg/dL (7-21); CALCIUM 8.2 mg/dL (8.4-10.5); GFR AFRICAN-AMERICAN > 60; GFR NON-AFRICAN AMERICAN > 60
[2017-11-27] MEDS: Pantoprazole 40 mg EC Tab PO SCH (07:37)
[2017-11-27 07:46] LABS: WHITE BLOOD COUNT 2.2 10^3/ul (4.5-11.0)
[2017-11-27 07:47] LABS: PLATELET COUNT 23 10^3/uL (120.0-450.0)
[2017-11-27] MEDS: Insulin Lispro (humaLOG) LOW Coverage SC SCH ×4 (08:16→21:37)
[2017-11-27 08:26] LABS: PLATELET COUNT MANUAL 24 K/mm3 (120-450)
[2017-11-27] MEDS: Magnesium Oxide 400 mg Tab UD PO SCH ×2 (08:59→18:26)
[2017-11-27] MEDS: Morphine 30 mg SR Tab PO SCH ×2 (08:59→21:35)
[2017-11-27] MEDS: Morphine 15 mg Immediate Release Tab PO PRN ×2 (09:00→20:48)
[2017-11-27] MEDS: PRISTIQ 50 MG PO SCH ×3 (09:01→18:27)
--- NOTE | 2017-11-27 13:26 | PN ---
Copied To: Jorge Luis Hernandez MD Attending MD: Jorge Luis Hernandez MD DATE: 11/27/2017 SUBJECTIVE: The patient is in bed, in no acute distress, nontoxic. OBJECTIVE: VITAL SIGNS: On exam, temperature is 97, blood pressure is 128/60, respiratory rate of 18. HEENT: Examination is unremarkable. NECK: Supple. LUNGS: Have decreased breath sounds. HEART: Normal S1, S2. ABDOMEN: Soft, nontender. No rebound or guarding. The patient is doing well. DATA: Laboratory examination reveals the patient's white count is 2.2 with granulocyte number of 1.89. ASSESSMENT AND PLAN: This is a 72-year-old female seen earlier this morning, awake and alert, doing well, was admitted with sepsis due to the right-sided healthcare-associated pneumonia, neutropenia, history of sepsis with a right middle lobe healthcare-associated pneumonia on top of an extended spectrum beta lactamases Klebsiella and Proteus urinary tract infection in phase of stage III decubitus ulcer and stage IV lung cancer, on day #6 of meropenem and doxycycline; now, neutropenia has resolved. We may discontinue isolation. We will discontinue the antibiotics. The patient is at risk for developing nosocomial infections. We will discontinue antibiotics. No further antibiotics at this point and no isolation necessary if neutropenia is resolved. Jorge Luis Hernandez MD
--- NOTE | 2017-11-27 19:27 | PN ---
Copied To: Robert Eastman MD Attending MD: Robert Eastman MD DATE: 11/27/2017 PULMONARY PROGRESS NOTE REFERRING PHYSICIAN: Yosef Reis MD SUBJECTIVE: Se is sitting up in a bed. Night was unremarkable. Feels a little better today. No headache, no rhinitis, no cough. Get short of breath with exertion. No nausea, no vomiting, no diarrhea. Has multiple skin discoloration with bruises. OBJECTIVE: GENERAL: In no acute distress. VITAL SIGNS: Temperature is 98, heart rate 84, respiratory rate is 20, blood pressure 128/65, and pulse ox 95% on room air. HEENT: Moist mucous membrane. Crowded airway. Mallampati score is 4. NECK: Supple. No JVD. LUNGS: Fair airflow with few rhonchi. HEART: S1 and S2. ABDOMEN: Soft, nontender. No organomegaly. EXTREMITIES: No edema. NEUROLOGIC: Awake, alert, and follows simple command. MEDICATIONS: She is on Colace 100 mg twice a day, DuoNeb every 6 hours, Magic mouthwash p.r.n. basis, mag oxide 400 mg twice a day, morphine 2 mg every 4 hours p.r.n., morphine extended release 30 mg every 12 hours., morphine immediate release 50 mg every 6 hours p.r.n., Protonix 40 mg daily, Reglan 5 mg before meals and at bedtime, Tylenol p.r.n., Xanax 0.25 mg twice a day. LABORATORY DATA: Shows hemoglobin 10.4, hematocrit 32.5, WBC 2.2, and platelet count is 24. INR 1.09, PTT 24. Sodium 145, potassium 3.7, chloride 107, bicarbonate 28. BUN 13, creatinine 0.4. Glucose is 197. Calcium 8.2, phosphorus is 2.2. AST 31, ALT 41, alk phos is 203. Albumin is 3.4. Microbiology: Blood culture and urine culture, there is no growth. IMPRESSION AND PLAN: Pancytopenia, status post chemotherapy. Small cell lung cancer with extensive disease involving the bone, history of esophagitis, gastritis, chronic lung disease, anemia, activities of daily dysfunction. Pulmonary point of view, doing okay. Continue bronchodilator. Keep head at 45 degrees. Gastric prophylaxis. Sequential compression device to lower extremity. Antibiotics as per Infectious Disease. Out of bed to chair. Fall precaution. Follow up labs in the morning. Thank you and we will follow with you. Robert Eastman MD
--- NOTE | 2017-11-27 20:52 | PN ---
Copied To: Yosef Reis MD Attending MD: Yosef Reis MD DATE: 11/27/2017 This is [facility]'s [facility] visit on the medical floor. For Dr. Puente. SUBJECTIVE: The patient is a 72-year-old female, now off neutropenic isolation precaution as per Dr. Hernandez, Infectious Disease, consulted with the patient, continue her Granix, with the patient having been transfused one unit of irradiated single donor apheresed platelets yesterday with good effect. She feels stronger today. She is known to suffer from stage IV cancer of the lung with metastasis to the liver, spine, and retroperitoneal nodes. At present, the patient is resting comfortably. Reported she feels stronger today. PHYSICAL EXAMINATION: VITAL SIGNS: Temperature 97.8, pulse 84, respirations 20, blood pressure 128/65, pulse ox 97%. HEENT: Unremarkable. Tongue is moist. NECK: Supple. HEART: Regular rate. LUNGS: Rare rhonchi. ABDOMEN: Obese, soft, nontender. EXTREMITIES: No edema. SKIN: Warm and dry. NEUROLOGIC: Awake and alert. LABORATORY DATA: The patient's labs were done. White blood cell count of 2.2, up from 1.1 yesterday; hemoglobin of 10.4, hematocrit 32.5, platelet count of 23,000 with a manual count of 24,000. Yesterday's platelet count was 15,000. There is no active bleeding. No petechiae in the oropharynx. The patient did have an INR done today, 1.09, with the PTT of 24.3. Her chem metabolic panel is within normal range except for nonfasting glucose 197 with a calcium of 8.2, phosphorus of 2.2, alkaline phosphatase of 203 with an otherwise normal chem metabolic panel. ASSESSMENT: The assessment for this patient is that of neutropenic sepsis with associated right-sided pneumonia, history of Proteus urinary tract infection, stage IV cancer of the lung, decubitus ulcer, stage III, metastasis to the bone, intractable pain of cancer, thrombocytopenia, neutropenia, hypertension, deconditioning, anxiety, obesity, anemia of chronic disease, peripheral vascular disease, gait disturbance. PLAN: Plan for this patient after conversation with Dr. Puente is to continue present medical regimen. She is off neutropenic precautions as per Dr. Hernandez. We will monitor clinically and with labs. We will discontinue her daily PT/PTT as these values have not changed, with manual platelet count to continue with transfusion yesterday of platelets. We will monitor clinically and with labs. The prognosis for this patient is guarded. This is a complex patient with a comprehensive, medically necessary and appropriate visit carried out in excess of 30 minutes at the bedside with the patient's questions answered to her satisfaction with the plan to be implemented as described above, with her Granix to continue as per Dr. Puente's protocol. Yosef Reis MD
[2017-11-28] MEDS: Albuterol-Ipratrop 3 mg / 0.5 (3 ml) UD IH SCH ×5 (03:38→20:17)
[2017-11-28 07:38] LABS: GRAN # 2.56 (1.4-6.5); HEMOGLOBIN 10.2 g/dL (12.0-16.0); LYMPH # 0.3 (1.2-3.4); LYMPH % 10.3 % (22.0-35.0); MEAN CELL VOLUME 97.8 fl (80.0-105.0); MEAN CORPUSCULAR HEMOGLOBIN 31.4 pg (25.0-35.0); MEAN CORPUSCULAR HGB CONC 32.1 g/dl (31.0-37.0); MONO # 0.1 (0.1-0.6); MONO % 4.7 % (1.0-6.0); RBC 3.25 10^6/uL (3.5-6.1); RED CELL DISTRIBUTION WIDTH 18.4 % (11.5-14.5)
[2017-11-28 07:46] LABS: ALB/GLOB RATIO 1.2 (1.1-1.8); ALBUMIN 3.4 g/dL (3.0-4.8); ALT/SGPT 41 U/L (7-56); AST/SGOT 30 U/L (14-36); BLOOD UREA NITROGEN 15 mg/dL (7-21); CALCIUM 8.5 mg/dL (8.4-10.5); GFR AFRICAN-AMERICAN > 60; GFR NON-AFRICAN AMERICAN > 60
[2017-11-28 07:47] LABS: PLATELET COUNT 13 10^3/uL (120.0-450.0)
[2017-11-28 08:32] LABS: PLATELET COUNT MANUAL 17 K/mm3 (120-450)
[2017-11-28] MEDS ORDERED: Potassium & Sodium Phosphate PO STA (09:04)
--- NOTE | 2017-11-28 09:52 | CP.PCM.PN ---
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 Patient seen and examined at bedside. No acute events overnight. Patient reports that she feels very weak today, states that he is ambulating to bathroom. Had a soft brown BM this AM. States that she has good appetite, ate all her breakfast. Denies fever, chills, nausea, vomiting, hemaotchezia, petechiae, mucosal bleeding, melena, abdominal pain, leg swelling. Objective - Vital Signs/Intake and Output Vital Signs (last 24 hours): Temp Pulse Resp BP Pulse Ox 97.4 F L 99 H 19 138/85 97 11/28/17 08:14 11/28/17 08:14 11/28/17 08:14 11/28/17 08:14 11/28/17 08:14 Intake and Output: 11/28/17 11/28/17 06:59 18:59 Intake Total 240 Balance 240 - Medications Medications: Current Medications Acetaminophen (Tylenol 325mg Tab) 650 mg PO Q4H PRN PRN Reason: Fever >100.5 F Last Admin: 11/27/17 05:47 Dose: 650 mg Albuterol/Ipratropium (Duoneb 3 Mg/0.5 Mg (3 Ml) Ud) 3 ml IH [id number] [facility] Last Admin: 11/28/17 09:19 Dose: 3 ml Alprazolam (Xanax) 0.25 mg PO BID [facility] Stop: 11/29/17 18:01 Last Admin: 11/27/17 18:26 Dose: 0.25 mg Al Hydrox/Mg Hydrox/Simethicone 30 ml/Diphenhydramine HCl 75 mg/Lidocaine 30 ml 0 ml PO Q2H PRN PRN Reason: Mouth/Throat Pain Last Admin: 11/22/17 18:45 Dose: 15 ml Dextrose (Dextrose 50% Inj) 0 ml IV STAT PRN; Protocol PRN Reason: Hypoglycemia Protocol Docusate Sodium (Colace) 100 mg PO BID [facility] Last Admin: 11/27/17 18:25 Dose: Not Given Home Med (Home Med) 1 unit PO TID [facility] Last Admin: 11/27/17 18:27 Dose: 1 unit Dextrose (Dextrose 5% In Water 1000 Ml) 1,000 mls @ 0 mls/hr IV .Q0M PRN; Protocol; Per Protocol PRN Reason: Hypoglycemia Protocol Insulin Human Lispro (Humalog Low) [address] [facility] PRN Reason: Protocol Last Admin: 11/27/17 21:37 Dose: Not Given Magnesium Oxide (Mag-Ox) 400 mg PO BID [facility] Last Admin: 11/27/17 18:26 Dose: 400 mg Metoclopramide HCl (Reglan) 5 mg PO ACHS [facility] Last Admin: 11/27/17 21:33 Dose: 5 mg Morphine Sulfate (Morphine Extended Release Tab) 30 mg PO Q12 [facility] Last Admin: 11/27/17 21:35 Dose: 30 mg Morphine Sulfate (Morphine) 2 mg IVP Q4 PRN PRN Reason: Pain, severe (8-10) Last Admin: 11/25/17 13:49 Dose: 2 mg Morphine Sulfate (Morphine Immediate Release Tab) 15 mg PO Q6 PRN PRN Reason: Pain, moderate (4-7) Last Admin: 11/27/17 20:48 Dose: 15 mg Pantoprazole Sodium (Protonix Ec Tab) 40 mg PO ACB [facility] Last Admin: 11/27/17 07:37 Dose: 40 mg - Labs Labs: 11/28/17 07:00 11/28/17 07:00 PT 12.6 SECONDS (9.4-12.5) H 11/27/17 06:30 INR 1.09 11/27/17 06:30 APTT 24.3 Seconds (25.1-36.5) L 11/27/17 06:30 - Additional Findings Additional findings: - Constitutional Appears: Chronically Ill - Head Exam Head Exam: ATRAUMATIC, NORMOCEPHALIC - Eye Exam Eye Exam: EOMI, PERRL. absent: Conjunctival injection, Nystagmus, Scleral icterus Pupil Exam: NORMAL ACCOMODATION, PERRL. absent: Fixed, Irregular, Miosis, Unequal - ENT Exam ENT Exam: Mucous Membranes Moist - Neck Exam Neck exam: Positive for: Full Rom - Respiratory Exam Respiratory Exam: Decreased Breath Sounds, NORMAL BREATHING PATTERN. absent: Accessory Muscle Use, Rhonchi, Wheezes, Stridor - Cardiovascular Exam Cardiovascular Exam: RRR, +S1, +S2. absent: Systolic Murmur - GI/Abdominal Exam GI & Abdominal Exam: Normal Bowel Sounds, Soft. 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 Request re-eval today for subacute rehab. - Ensure supplements - pain management - reglan prn - monitor Hypokalemia: - resolved - monitor Neutropenia: - resolving - received Neulasta on 11/18 outpatient - granix 480 mcg sq daily - ANC 2.56 today - neutropenic precautions off - afebrile - CXR shows left basilar atelectasis vs infiltrate - CTA shows moderate right pleural effusion with compressive atelectasis. chronic infiltrative changes in left lung. Partial collapse, consolidative changes in RUL - procal 1.14 high - ID consulted. appreciate recs. s/p doxy and merrem for HCAP. - monitor Anemia: - macrocytic MCV 103.8 - Vitamin B12, folate normal - Hgb 10.2 today (prev 10.4). s/p 2 units prbcs 11/24 - monitor Thrombocytopenia: - manual plt count 17 today - s/p 1 unit platelets 11/23, 11/26 - monitor Hx of COPD: - nikunj - Dr Eastman on board. Appreciate recs. Hx of DM: - HgbA1c 7.2 - ISS low Palliative consult called. Patient wants full code. Case seen and discussed with Dr Puente.
[2017-11-28] MEDS: Insulin Lispro (humaLOG) LOW Coverage SC SCH ×4 (09:59→21:21)
[2017-11-28] MEDS: Magnesium Oxide 400 mg Tab UD PO SCH ×2 (10:00→17:52)
[2017-11-28] MEDS: Morphine 30 mg SR Tab PO SCH ×2 (10:00→21:22)
[2017-11-28] MEDS: Pantoprazole 40 mg EC Tab PO SCH (10:03)
--- NOTE | 2017-11-28 12:57 | PN ---
Copied To: Robert Eastman MD Attending MD: Robert Eastman MD DATE: 11/28/2017 PULMONARY PROGRESS NOTE REFERRING PHYSICIAN: Yosef Reis MD. SUBJECTIVE: The patient is lying in the bed, head at 45 degrees. Feels sleepy and tired. Still has a dry mucous membrane. No cough. No sputum production. No nausea, vomiting, diarrhea, leg pain, leg swelling. OBJECTIVE: GENERAL: In no acute distress. VITAL SIGNS: Temperature is 98, heart rate 99, respiratory rate is 18, blood pressure 138/85, pulse ox 97% on room air. HEENT: Moist mucous membrane. Crowded airway. NECK: Supple. No JVD. LUNGS: Have a fair airflow with rhonchi. HEART: S1 and S2. ABDOMEN: Soft and nontender. No organomegaly. EXTREMITIES: There is no edema. NEUROLOGICAL: Awake and alert. Follows simple command. MEDICATIONS: She is on Colace 100 mg twice a day, also getting DuoNeb every 6 hours round the clock, getting Magic mouthwash p.r.n. basis, mag oxide 400 mg twice a day, morphine 2 mg every 4 hours p.r.n., also getting morphine extended release 30 mg every 12 hours, morphine immediate release 15 mg every 6 hours p.r.n., Protonix 40 mg daily, Reglan 5 mg before meals and at bedtime, Tylenol p.r.n., Xanax 0.25 mg twice a day. LABORATORY DATA: Shows hemoglobin 10.2, hematocrit 31.8, WBC 3, platelet count is 17. Sodium 142, potassium 3.7, chloride 103, bicarbonate 29, BUN 15, creatinine 0.4, glucose 171, calcium 8.5, phosphorus 2.3, magnesium 1.9, AST 30, ALT 41, alk phos is 229, albumin is 3.4. IMPRESSION AND PLAN: Pancytopenia, on chemotherapy; small cell lung cancer with extensive disease involving the bones; esophagitis; gastritis; chronic lung disease; anemia; activities of daily living dysfunction. Pulmonary point of view, she is doing okay. Continue bronchodilator. Keep head at 45 degrees. Aspiration precaution. We will order Biotene for the dry mouth. Gastric prophylaxis. Sequential compression device to lower extremity. Follow up CBC in the morning. Thank you and we will follow with you. Robert Eastman MD [facility] # [id number]
--- NOTE | 2017-11-28 14:47 | CP.PCM.PN ---
Subjective - Date & Time of Evaluation Date of Evaluation: 11/28/17 Time of Evaluation: 10:50 - Subjective Subjective: Comfortable on a chair but still feels tired, no fevers. Objective - Vital Signs/Intake and Output Vital Signs (last 24 hours): Temp Pulse Resp BP Pulse Ox 97.4 F L 99 H 19 138/85 97 11/28/17 08:14 11/28/17 08:14 11/28/17 08:14 11/28/17 08:14 11/28/17 08:14 Intake and Output: 11/28/17 11/28/17 06:59 18:59 Intake Total 240 Balance 240 - Medications Medications: Current Medications Acetaminophen (Tylenol 325mg Tab) 650 mg PO Q4H PRN PRN Reason: Fever >100.5 F Last Admin: 11/27/17 05:47 Dose: 650 mg Albuterol/Ipratropium (Duoneb 3 Mg/0.5 Mg (3 Ml) Ud) 3 ml IH [id number] [facility] Last Admin: 11/28/17 09:19 Dose: 3 ml Alprazolam (Xanax) 0.25 mg PO BID [facility] Stop: 11/29/17 18:01 Last Admin: 11/28/17 10:01 Dose: 0.25 mg Al Hydrox/Mg Hydrox/Simethicone 30 ml/Diphenhydramine HCl 75 mg/Lidocaine 30 ml 0 ml PO Q2H PRN PRN Reason: Mouth/Throat Pain Last Admin: 11/22/17 18:45 Dose: 15 ml Dextrose (Dextrose 50% Inj) 0 ml IV STAT PRN; Protocol PRN Reason: Hypoglycemia Protocol Docusate Sodium (Colace) 100 mg PO BID [facility] Last Admin: 11/28/17 10:00 Dose: 100 mg Home Med (Home Med) 1 unit PO TID [facility] Last Admin: 11/27/17 18:27 Dose: 1 unit Dextrose (Dextrose 5% In Water 1000 Ml) 1,000 mls @ 0 mls/hr IV .Q0M PRN; Protocol; Per Protocol PRN Reason: Hypoglycemia Protocol Insulin Human Lispro (Humalog Low) 0 units SC ACHS [facility] PRN Reason: Protocol Last Admin: 11/28/17 09:59 Dose: 1 unit Magnesium Oxide (Mag-Ox) 400 mg PO BID [facility] Last Admin: 11/28/17 10:00 Dose: 400 mg Metoclopramide HCl (Reglan) 5 mg PO ACHS [facility] Last Admin: 11/28/17 10:03 Dose: 5 mg Morphine Sulfate (Morphine Extended Release Tab) 30 mg PO Q12 [facility] Last Admin: 11/28/17 10:00 Dose: 30 mg Morphine Sulfate (Morphine) 2 mg IVP Q4 PRN PRN Reason: Pain, severe (8-10) Last Admin: 11/25/17 13:49 Dose: 2 mg Morphine Sulfate (Morphine Immediate Release Tab) 15 mg PO Q6 PRN PRN Reason: Pain, moderate (4-7) Last Admin: 11/27/17 20:48 Dose: 15 mg Pantoprazole Sodium (Protonix Ec Tab) 40 mg PO ACB [facility] Last Admin: 11/28/17 10:03 Dose: 40 mg - Labs Labs: 11/28/17 07:00 11/28/17 07:00 PT 12.6 SECONDS (9.4-12.5) H 11/27/17 06:30 INR 1.09 11/27/17 06:30 APTT 24.3 Seconds (25.1-36.5) L 11/27/17 06:30 - Constitutional Appears: Chronically Ill - Head Exam Head Exam: NORMAL INSPECTION - Respiratory Exam Respiratory Exam: Decreased Breath Sounds - Cardiovascular Exam Cardiovascular Exam: +S1, +S2 - GI/Abdominal Exam GI & Abdominal Exam: Soft. absent: Tenderness Assessment and Plan - Assessment and Plan (Free Text) Plan: Assessment S/P sepsis due to right sided HCAP, with neutropenia history of sepsis due to right middle lobe HCAP on top of ESBL Klebsiella and Proteus UTI stage 3 decubitus ulcer history of Systemic viral illness with Influenza and acute bronchitis stage 4 lung cancer history of asymptomatic bacteriuria with VRE in the urine DM HTN depression lower back tumor obesity with BMI 30 Plan completed 7 days of Doxycycline and Merrem - continue to monitor off antibiotics since she is at risk for nosocomial infections overall prognosis is poor
[2017-11-28] MEDS: Morphine 2 mg/ml ISec IVP PRN (19:28)
[2017-11-28] MEDS: Saliva Substitute 44.3 ML PO SCH (21:22)
[2017-11-29] MEDS: Saliva Substitute 44.3 ML PO SCH ×5 (00:11→21:44)
[2017-11-29] MEDS: Albuterol-Ipratrop 3 mg / 0.5 (3 ml) UD IH SCH ×4 (01:14→21:12)
[2017-11-29] MEDS: Morphine 2 mg/ml ISec IVP PRN ×2 (06:03→14:25)
[2017-11-29 06:49] LABS: EOS % 0.2 % (1.5-5.0); GRAN # 3.32 (1.4-6.5); GRAN % 78.9 % (50.0-68.0); HEMOGLOBIN 10.3 g/dL (12.0-16.0); LYMPH # 0.4 (1.2-3.4); LYMPH % 8.8 % (22.0-35.0); MEAN CELL VOLUME 99.1 fl (80.0-105.0); MEAN CORPUSCULAR HEMOGLOBIN 31.7 pg (25.0-35.0); MEAN PLATELET VOLUME 11.7 fl (7.0-11.0); MONO # 0.5 (0.1-0.6); MONO % 12.1 % (1.0-6.0); RBC 3.25 10^6/uL (3.5-6.1); RED CELL DISTRIBUTION WIDTH 18.5 % (11.5-14.5); WHITE BLOOD COUNT 4.2 10^3/ul (4.5-11.0)
[2017-11-29 07:36] LABS: BLOOD UREA NITROGEN 17 mg/dL (7-21)
[2017-11-29 07:37] LABS: ALBUMIN 3.5 g/dL (3.0-4.8); CALCIUM 8.7 mg/dL (8.4-10.5); GFR AFRICAN-AMERICAN > 60; GFR NON-AFRICAN AMERICAN > 60
[2017-11-29 07:38] LABS: ALB/GLOB RATIO 1.3 (1.1-1.8); ALT/SGPT 51 U/L (7-56); AST/SGOT 31 U/L (14-36)
[2017-11-29 07:45] LABS: PLATELET COUNT 13 10^3/uL (120.0-450.0)
[2017-11-29] MEDS: Morphine 30 mg SR Tab PO SCH ×2 (10:39→21:43)
[2017-11-29] MEDS: Magnesium Oxide 400 mg Tab UD PO SCH (10:39)
[2017-11-29] MEDS: Pantoprazole 40 mg EC Tab PO SCH (10:40)
[2017-11-29] MEDS: Insulin Lispro (humaLOG) LOW Coverage SC SCH ×4 (10:40→22:52)
--- NOTE | 2017-11-29 19:18 | CP.PCM.PN ---
Subjective - Date & Time of Evaluation Date of Evaluation: 11/29/17 Time of Evaluation: 10:15 - Subjective Subjective: Comfortably resting in bed, no fevers, not in distress. Objective - Vital Signs/Intake and Output Vital Signs (last 24 hours): Temp Pulse Resp BP Pulse Ox 97.4 F L 100 H 20 142/77 94 L 11/29/17 08:15 11/29/17 08:15 11/29/17 08:15 11/29/17 08:15 11/29/17 08:15 Intake and Output: 11/29/17 11/29/17 06:59 18:59 Intake Total 320 Balance 320 - Medications Medications: Current Medications Acetaminophen (Tylenol 325mg Tab) 650 mg PO Q4H PRN PRN Reason: Fever >100.5 F Last Admin: 11/27/17 05:47 Dose: 650 mg Albuterol/Ipratropium (Duoneb 3 Mg/0.5 Mg (3 Ml) Ud) 3 ml IH [id number] [facility] Last Admin: 11/29/17 08:12 Dose: 3 ml Alprazolam (Xanax) 0.25 mg PO BID [facility] Stop: 11/29/17 18:01 Last Admin: 11/28/17 17:53 Dose: 0.25 mg Al Hydrox/Mg Hydrox/Simethicone 30 ml/Diphenhydramine HCl 75 mg/Lidocaine 30 ml 0 ml PO Q2H PRN PRN Reason: Mouth/Throat Pain Last Admin: 11/22/17 18:45 Dose: 15 ml Dextrose (Dextrose 50% Inj) 0 ml IV STAT PRN; Protocol PRN Reason: Hypoglycemia Protocol Docusate Sodium (Colace) 100 mg PO BID [facility] Last Admin: 11/28/17 17:51 Dose: 100 mg Home Med (Home Med) 1 unit PO TID [facility] Last Admin: 11/27/17 18:27 Dose: 1 unit Dextrose (Dextrose 5% In Water 1000 Ml) 1,000 mls @ 0 mls/hr IV .Q0M PRN; Protocol; Per Protocol PRN Reason: Hypoglycemia Protocol Insulin Human Lispro (Humalog Low) 0 units SC ACHS [facility] PRN Reason: Protocol Last Admin: 11/28/17 21:21 Dose: Not Given Magnesium Oxide (Mag-Ox) 400 mg PO BID [facility] Last Admin: 11/28/17 17:52 Dose: 400 mg Metoclopramide HCl (Reglan) 5 mg PO ACHS [facility] Last Admin: 11/28/17 21:22 Dose: 5 mg Morphine Sulfate (Morphine Extended Release Tab) 30 mg PO Q12 [facility] Last Admin: 11/28/17 21:22 Dose: 30 mg Morphine Sulfate (Morphine) 2 mg IVP Q4 PRN PRN Reason: Pain, severe (8-10) Last Admin: 11/29/17 06:03 Dose: 2 mg Morphine Sulfate (Morphine Immediate Release Tab) 15 mg PO Q6 PRN PRN Reason: Pain, moderate (4-7) Last Admin: 11/27/17 20:48 Dose: 15 mg Pantoprazole Sodium (Protonix Ec Tab) 40 mg PO ACB [facility] Last Admin: 11/28/17 10:03 Dose: 40 mg Saliva Substitute (Saliva Substitute) 0 ml PO Q2 [facility] Last Admin: 11/29/17 06:03 Dose: 1 ml - Labs Labs: 11/29/17 06:30 11/29/17 06:30 PT 12.6 SECONDS (9.4-12.5) H 11/27/17 06:30 INR 1.09 11/27/17 06:30 APTT 24.3 Seconds (25.1-36.5) L 11/27/17 06:30 - Constitutional Appears: Chronically Ill - Head Exam Head Exam: NORMAL INSPECTION - Respiratory Exam Respiratory Exam: Decreased Breath Sounds - Cardiovascular Exam Cardiovascular Exam: +S1, +S2 - GI/Abdominal Exam GI & Abdominal Exam: Soft. absent: Tenderness Assessment and Plan - Assessment and Plan (Free Text) Plan: Assessment S/P sepsis due to right sided HCAP, with neutropenia history of sepsis due to right middle lobe HCAP on top of ESBL Klebsiella and Proteus UTI stage 3 decubitus ulcer history of Systemic viral illness with Influenza and acute bronchitis stage 4 lung cancer history of asymptomatic bacteriuria with VRE in the urine DM HTN depression lower back tumor obesity with BMI 30 Plan completed 7 days of Doxycycline and Merrem - continue to monitor off antibiotics since she is at risk for hospital-acquired infections overall prognosis is poor
--- NOTE | 2017-11-30 00:19 | PN ---
Copied To: Robert Eastman MD Attending MD: Robert Eastman MD DATE: 11/29/2017 PULMONARY PROGRESS NOTE REFERRING PHYSICIAN: Yosef Reis MD SUBJECTIVE: She is lying in the bed, head at 45 degrees. Night was unremarkable. Feels better today. No headache, no rhinitis. Short of breath with exertion. No chest pain, no nausea, no vomiting, no diarrhea. No leg pain or leg swelling. Has an ecchymotic area on the skin. OBJECTIVE: GENERAL: In no acute distress. VITAL SIGNS: Temperature is 98, heart rate is 94, respiratory rate is 20, blood pressure is 177/67, pulse ox 100% on room air. HEENT: Moist mucous membrane. Crowded airway. NECK: Supple. No JVD. LUNGS: Have a fair airflow with rhonchi. HEART: S1 and S2. ABDOMEN: Soft and nontender. No organomegaly. EXTREMITIES: There is no edema. Has multiple skin bruises. NEUROLOGICAL: Awake and alert. Follows simple command. MEDICATIONS: She is on Colace 100 mg twice a day, also DuoNeb every 6 hours, magnesium oxide 400 mg twice a day, morphine 2 mg IV every 4 hours p.r.n., morphine extended release 30 mg every 12 hours, morphine immediate release 50 mg every 6 hours p.r.n., Protonix 40 mg daily, Reglan 5 mg before meals and at bedtime, Tylenol p.r.n. basis. LABORATORY DATA: Shows hemoglobin 10.3, hematocrit 32.2, WBC 4.2, platelet count is 13. Sodium 142, potassium 3.8, chloride 102, bicarbonate 28, BUN 17, creatinine 0.4, glucose 170, calcium 8.7, phosphorus 2.7, magnesium 2, AST 31, ALT 51, alkaline phosphatase is 245, albumin is 3.5. 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 Continue bronchodilator . Keep head at 45 degrees. Gastric prophylaxis. Sequential compression device to lower extremity. Fall precaution. Followup electrolyte and complete blood count. Thank you and we will follow with you. Robert Eastman MD [facility] # [phone]
[2017-11-30] MEDS: Saliva Substitute 44.3 ML PO SCH ×11 (00:55→21:40)
[2017-11-30] MEDS: Albuterol-Ipratrop 3 mg / 0.5 (3 ml) UD IH SCH ×4 (02:26→19:23)
[2017-11-30] MEDS: Morphine 15 mg Immediate Release Tab PO PRN ×3 (05:02→17:43)
--- NOTE | 2017-11-30 05:23 | PN ---
Copied To: Rudy Puente MD Attending MD: Rudy Puente MD. DATE: 11/29/2017 ONCOLOGY PROGRESS NOTE LOCATION: The patient is in room 361, bed 1. This is a medically necessary and appropriate visit for this patient with multiple comorbid medical issues. SUBJECTIVE: The patient is seen lying in bed, head at 45 degrees. The patient has been feeling tired. Just completed platelet transfusion. Patient denies any cough, any sputum production. No nausea, vomiting or diarrhea, leg pain or leg swelling. Patient is able to get up and walk within the room with minimal assistance. Pain appears to be controlled. Pain on pain scale of 0 to 10 is at 5 most of the time, sometimes goes up to 7. PHYSICAL EXAMINATION: VITAL SIGNS: Stable. T-max is 98.4, heart rate is 99, respirations 18, blood pressure 138/85, pulse ox is 97% on room air. HEENT: Head is normocephalic, atraumatic. Alopecia is noted. Patient has a scalp subcutaneous mass, which is unchanged. Conjunctivae pale. Sclerae is anicteric. Pupils are equally reactive to light and accommodation. Examination of the oropharynx reveals moist mucous membranes. No ulcerations are noted. There is no evidence of any petechia or ecchymosis. NECK: Supple. There is no adenopathy. No jugular venous distention noted. LUNGS: Reveals fair airflow with bilateral rhonchi. HEART: Examination of the heart reveals S1 and S2 to be normal. PMI is in the fifth intercostal space, inside the midclavicular line. S1 and S2 are normal. No gallop or murmur is heard. ABDOMEN: Soft, nontender. Liver and spleen are not palpable. No rebound, rigidity or guarding is noted. EXTREMITIES: Reveal no cyanosis, clubbing or edema. Patient has ecchymosis on the skin, probably related to a prior steroid therapy and the non-steroidals she was using for pain. NEUROLOGIC: Reveals higher functions to be normal. No gross focal deficits are noted. MUSCULOSKELETAL: Patient's back pain along the spine radiating anteriorly through the inframammary region appears to be improved. Lower back pain also appears to be improved. Actually just completed radiation to the sacral and the area. SKIN: Turgor is normal. No other lesions except the ecchymosis are noted on the examination at this time. GENITOURINARY/RECTAL: Deferred. MEDICATIONS: Reviewed. She is on Colace 100 b.i.d., she is on DuoNeb every 6 hours [id number], she is on Magic Mouthwash p.r.n., magnesium oxide 400 b.i.d., she is on morphine 2 mg IV every 4 hours for severe pain, she is on morphine extended release 30 every 12 hours, morphine immediate release 50 mg every 6 hours p.r.n., Protonix 40 mg daily, Reglan 5 mg before meals and at bedtime, Tylenol p.r.n., Xanax 0.25 mg twice a day. LABORATORY DATA: Reveals hemoglobin of 10.2, hematocrit 31.8, white count is 3, with a platelet count of 17, just completed platelet transfusion. Sodium is 143, K is 3.7, chloride is 103, bicarbonate 29, BUN of 15, creatinine 0.5, glucose is 171, calcium is 8.5, phosphorus 2.3, magnesium 1.9. AST is 30, ALT is 41, alkaline phosphatase is 229 and albumin is 3.4. ASSESSMENT NOTES AND PLAN: Patient has pancytopenia, post systemic chemotherapy and palliative radiation to the lower back, is compromised with the bone marrow function, in a patient with extensive small cell lung cancer with documented liver and bone metastasis status post radiation, status post 5th cycle of chemotherapy with carboplatin-etoposide greater than 10 days ago. Patient also has esophagitis, gastritis, chronic lung disease, anemia, activities of daily living dysfunction. Plan, we will continue with bronchodilators, keep head at 45 degrees, aspiration precaution, DVT precaution, gastric prophylaxis. If the patient's platelet count is stable tomorrow, we will plan on transferring the patient to TCU and continue aggressive physical therapy if possible in the TCU. Routine post-examination instructions have been given to the patient. . Please make a note, this is a medically necessary and appropriate visit for this patient with multiple comorbid medical issues. Time spent with the patient is greater than 1 hour. Rudy Puente MD
[2017-11-30 06:38] LABS: HEMOGLOBIN 9.6 g/dL (12.0-16.0); MEAN CELL VOLUME 99.7 fl (80.0-105.0); MEAN CORPUSCULAR HEMOGLOBIN 32.1 pg (25.0-35.0); MEAN CORPUSCULAR HGB CONC 32.2 g/dl (31.0-37.0); MEAN PLATELET VOLUME 9.6 fl (7.0-11.0); RBC 2.99 10^6/uL (3.5-6.1); WHITE BLOOD COUNT 4.4 10^3/ul (4.5-11.0)
[2017-11-30 06:54] LABS: ALB/GLOB RATIO 1.2 (1.1-1.8); ALBUMIN 3.4 g/dL (3.0-4.8); ALT/SGPT 43 U/L (7-56); AST/SGOT 33 U/L (14-36); BLOOD UREA NITROGEN 15 mg/dL (7-21); CALCIUM 8.4 mg/dL (8.4-10.5); GFR AFRICAN-AMERICAN > 60; GFR NON-AFRICAN AMERICAN > 60
[2017-11-30 07:05] LABS: PLATELET COUNT 21 10^3/uL (120.0-450.0)
[2017-11-30] MEDS: Pantoprazole 40 mg EC Tab PO SCH (08:04)
[2017-11-30] MEDS: Insulin Lispro (humaLOG) LOW Coverage SC SCH ×4 (08:39→21:26)
[2017-11-30] MEDS: Magnesium Oxide 400 mg Tab UD PO SCH ×2 (09:28→17:47)
[2017-11-30] MEDS: PRISTIQ 50 MG PO SCH ×3 (09:31→18:52)
--- NOTE | 2017-11-30 11:46 | CP.PCM.PN ---
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 Patient continue to have persistent thrombocytopenia, despite multiple platelets transfusions. Patient seen and examined at bedside. No acute events overnight. Patient reports persistent weakness, states that TCU would help her to gain her strength. Reports that her appetite is better, had soft brown BM this AM. Denies fever, chills, nausea, vomiting, hemaotchezia, petechiae, mucosal bleeding, melena, abdominal pain, leg swelling. Objective - Vital Signs/Intake and Output Vital Signs (last 24 hours): Temp Pulse Resp BP Pulse Ox 97.2 F L 79 20 146/57 L 96 11/30/17 07:45 11/30/17 07:45 11/30/17 07:45 11/30/17 07:45 11/30/17 07:45 Intake and Output: 11/30/17 11/30/17 06:59 18:59 Intake Total 555 Balance 555 - Medications Medications: Current Medications Acetaminophen (Tylenol 325mg Tab) 650 mg PO Q4H PRN PRN Reason: Fever >100.5 F Last Admin: 11/27/17 05:47 Dose: 650 mg Albuterol/Ipratropium (Duoneb 3 Mg/0.5 Mg (3 Ml) Ud) 3 ml IH [id number] [facility] Last Admin: 11/30/17 08:39 Dose: 3 ml Al Hydrox/Mg Hydrox/Simethicone 30 ml/Diphenhydramine HCl 75 mg/Lidocaine 30 ml 0 ml PO Q2H PRN PRN Reason: Mouth/Throat Pain Last Admin: 11/22/17 18:45 Dose: 15 ml Dextrose (Dextrose 50% Inj) 0 ml IV STAT PRN; Protocol PRN Reason: Hypoglycemia Protocol Docusate Sodium (Colace) 100 mg PO BID [facility] Last Admin: 11/30/17 09:28 Dose: 100 mg Home Med (Home Med) 1 unit PO TID [facility] Last Admin: 11/30/17 09:31 Dose: 1 unit Dextrose (Dextrose 5% In Water 1000 Ml) 1,000 mls @ 0 mls/hr IV .Q0M PRN; Protocol; Per Protocol PRN Reason: Hypoglycemia Protocol Insulin Human Lispro (Humalog Low) 0 units SC ACHS [facility] PRN Reason: Protocol Last Admin: 11/30/17 08:39 Dose: 2 unit Magnesium Oxide (Mag-Ox) 400 mg PO BID [facility] Last Admin: 11/30/17 09:28 Dose: 400 mg Metoclopramide HCl (Reglan) 5 mg PO ACHS [facility] Last Admin: 11/30/17 08:03 Dose: 5 mg Morphine Sulfate (Morphine Extended Release Tab) 30 mg PO Q12 [facility] Last Admin: 11/29/17 21:43 Dose: 30 mg Morphine Sulfate (Morphine) 2 mg IVP Q4 PRN PRN Reason: Pain, severe (8-10) Last Admin: 11/29/17 14:25 Dose: 2 mg Morphine Sulfate (Morphine Immediate Release Tab) 15 mg PO Q6 PRN PRN Reason: Pain, moderate (4-7) Last Admin: 11/30/17 09:27 Dose: 15 mg Pantoprazole Sodium (Protonix Ec Tab) 40 mg PO ACB [facility] Last Admin: 11/30/17 08:04 Dose: 40 mg Saliva Substitute (Saliva Substitute) 0 ml PO Q2 [facility] Last Admin: 11/30/17 08:40 Dose: 44.3 ml - Labs Labs: 11/30/17 06:25 11/30/17 06:25 PT 12.6 SECONDS (9.4-12.5) H 11/27/17 06:30 INR 1.09 11/27/17 06:30 APTT 24.3 Seconds (25.1-36.5) L 11/27/17 06:30 - Constitutional Appears: Non-toxic, Cachectic, Chronically Ill - Head Exam Head Exam: ATRAUMATIC, NORMOCEPHALIC - Eye Exam Eye Exam: EOMI, PERRL. absent: Conjunctival injection, Nystagmus, Scleral icterus Pupil Exam: NORMAL ACCOMODATION, PERRL. absent: Fixed, Irregular, Unequal - ENT Exam ENT Exam: Mucous Membranes Moist - Neck Exam Neck Exam: Full ROM - Respiratory Exam Respiratory Exam: Clear to Ausculation Bilateral, NORMAL BREATHING PATTERN. absent: Accessory Muscle Use, Rales, Rhonchi, Wheezes, Stridor - Cardiovascular Exam Cardiovascular Exam: RRR, +S1, +S2. absent: Murmur Additional comments: + right sided chest port in place - GI/Abdominal Exam GI & Abdominal Exam: Soft, Normal Bowel Sounds. absent: Distended, Firm, Guarding, Rigid, Tenderness, Mass, Organomegaly, Rebound - Extremities Exam Extremities Exam: Full ROM, Normal Inspection. 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 Patient remains persistently throbocytopenic despite several platelet transfusions, would recommend giving N-plate once weekly. 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 chronic infiltrative changes in left lung. Partial collapse, consolidative changes in RUL - procal 1.14 high - ID consulted. appreciate recs. s/p doxy and merrem for HCAP. - monitor Right sided cp: likely musculoskeletal, ruled out ACS, PE - resolved - trop neg x1, initial EKG neg - CTA neg for PE - US LE shows no DVT - pain management Hypokalemia: - resolved - monitor Anemia: - macrocytic MCV 103.8 - Vitamin B12, folate normal - Hgb 9.6 today (prev 10.4). s/p 2 units prbcs 11/24 - monitor Hx of COPD: - nikunj - Dr Eastman on board. Appreciate recs. Hx of DM: - HgbA1c 7.2 - ISS low Palliative consult called. Patient wants full code. Case seen and discussed with Dr Puente.
[2017-11-30] MEDS: Morphine 30 mg SR Tab PO SCH ×2 (12:44→21:30)
--- NOTE | 2017-11-30 17:32 | CP.PCM.PN ---
Subjective - Date & Time of Evaluation Date of Evaluation: 11/30/17 Time of Evaluation: 09:15 - Subjective Subjective: Afebrile, not in distress. Objective - Vital Signs/Intake and Output Vital Signs (last 24 hours): Temp Pulse Resp BP Pulse Ox 97.5 F L 94 H 20 177/67 H 100 11/29/17 18:53 11/29/17 18:53 11/29/17 18:53 11/29/17 18:53 11/29/17 17:01 Intake and Output: 11/29/17 11/30/17 18:59 06:59 Intake Total 0 Balance 0 - Medications Medications: Current Medications Acetaminophen (Tylenol 325mg Tab) 650 mg PO Q4H PRN PRN Reason: Fever >100.5 F Last Admin: 11/27/17 05:47 Dose: 650 mg Albuterol/Ipratropium (Duoneb 3 Mg/0.5 Mg (3 Ml) Ud) 3 ml IH [id number] [facility] Last Admin: 11/29/17 14:10 Dose: Not Given Al Hydrox/Mg Hydrox/Simethicone 30 ml/Diphenhydramine HCl 75 mg/Lidocaine 30 ml 0 ml PO Q2H PRN PRN Reason: Mouth/Throat Pain Last Admin: 11/22/17 18:45 Dose: 15 ml Dextrose (Dextrose 50% Inj) 0 ml IV STAT PRN; Protocol PRN Reason: Hypoglycemia Protocol Docusate Sodium (Colace) 100 mg PO BID [facility] Last Admin: 11/29/17 18:05 Dose: 100 mg Home Med (Home Med) 1 unit PO TID [facility] Last Admin: 11/27/17 18:27 Dose: 1 unit Dextrose (Dextrose 5% In Water 1000 Ml) 1,000 mls @ 0 mls/hr IV .Q0M PRN; Protocol; Per Protocol PRN Reason: Hypoglycemia Protocol Insulin Human Lispro (Humalog Low) 0 units SC ACHS [facility] PRN Reason: Protocol Last Admin: 11/29/17 18:30 Dose: 1 unit Magnesium Oxide (Mag-Ox) 400 mg PO BID [facility] Last Admin: 11/29/17 10:39 Dose: 400 mg Metoclopramide HCl (Reglan) 5 mg PO ACHS [facility] Last Admin: 11/29/17 18:13 Dose: 5 mg Morphine Sulfate (Morphine Extended Release Tab) 30 mg PO Q12 [facility] Last Admin: 11/29/17 10:39 Dose: 30 mg Morphine Sulfate (Morphine) 2 mg IVP Q4 PRN PRN Reason: Pain, severe (8-10) Last Admin: 11/29/17 14:25 Dose: 2 mg Morphine Sulfate (Morphine Immediate Release Tab) 15 mg PO Q6 PRN PRN Reason: Pain, moderate (4-7) Last Admin: 11/27/17 20:48 Dose: 15 mg Pantoprazole Sodium (Protonix Ec Tab) 40 mg PO ACB [facility] Last Admin: 11/29/17 10:40 Dose: 40 mg Saliva Substitute (Saliva Substitute) 0 ml PO Q2 [facility] Last Admin: 11/29/17 06:03 Dose: 1 ml - Labs Labs: 11/29/17 06:30 11/29/17 06:30 PT 12.6 SECONDS (9.4-12.5) H 11/27/17 06:30 INR 1.09 11/27/17 06:30 APTT 24.3 Seconds (25.1-36.5) L 11/27/17 06:30 - Constitutional Appears: Chronically Ill - Head Exam Head Exam: NORMAL INSPECTION - ENT Exam ENT Exam: Mucous Membranes Moist - Neck Exam Neck Exam: absent: Meningismus - Respiratory Exam Respiratory Exam: Decreased Breath Sounds - Cardiovascular Exam Cardiovascular Exam: +S1, +S2 - GI/Abdominal Exam GI & Abdominal Exam: Soft. absent: Tenderness Assessment and Plan - Assessment and Plan (Free Text) Plan: Assessment S/P sepsis due to right sided HCAP, with neutropenia history of sepsis due to right middle lobe HCAP on top of ESBL Klebsiella and Proteus UTI stage 3 decubitus ulcer history of Systemic viral illness with Influenza and acute bronchitis stage 4 lung cancer history of asymptomatic bacteriuria with VRE in the urine DM HTN depression lower back tumor obesity with BMI 30 Plan completed 7 days of Doxycycline and Merrem - continue to monitor off antibiotics since she is at risk for hospital-acquired infections overall prognosis is poor
--- NOTE | 2017-11-30 17:59 | PN ---
Copied To: Robert Eastman MD Attending MD: Robert Eastman MD DATE: 11/30/2017 PULMONARY PROGRESS NOTE REFERRING PHYSICIAN: Yosef Reis MD SUBJECTIVE: She is sitting up in bed, having lunch. Night was unremarkable. Feels a little weak, unsteady on the feet. No cough. Short of breath with exertion. No chest pain, no nausea, no vomiting, no diarrhea. OBJECTIVE: GENERAL: In no acute distress. VITAL SIGNS: Temperature is 98, heart rate 79, respiratory rate is 20, blood pressure 146/57, and pulse ox 96% on room air. HEENT: Moist mucous membrane. Crowded airway. NECK: Supple. No JVD. LUNGS: Fair airflow with rhonchi. HEART: S1 and S2. ABDOMEN: Soft and nontender. No organomegaly. EXTREMITIES: No edema. NEUROLOGIC: Awake and alert. Follows simple command. MEDICATIONS: She is on Colace 100 mg twice a day, getting DuoNeb every 6 hours [id number], also on Magic mouthwash p.r.n. basis, magnesium oxide 400 mg twice a day, morphine 2 mg IV every 4 hours p.r.n., morphine extended release 30 mg every 12 hours, morphine immediate release 50 mg every 6 hours p.r.n., Protonix 40 mg daily, Reglan 5 mg before meals and at bedtime, saliva substitute Tylenol p.r.n. basis. LABORATORY DATA: Shows hemoglobin 9.6, hematocrit 29.8, WBC of 4.4, and platelet count is 21. Sodium 142, potassium 3.7, chloride 102, bicarbonate 29. BUN 15, creatinine 0.4. Glucose 214, calcium 8.4. AST 33, ALT 43, alkaline phosphatase is 248. Albumin is 3.4. Microbiology: Blood culture, there is no growth. IMPRESSION AND PLAN: Pancytopenia with thrombocytopenia, leukocytes are improving, unresectable lung cancer with extensive disease involving bones and spine, also esophagitis, gastritis, chronic lung disease, anemia, activities of daily living dysfunction, unsteady on the feet. Pulmonary point of view, doing well. Continue bronchodilator . Keep head at 45 degrees. Gastric prophylaxis. Sequential compression devices to lower extremity. Physical therapy. Fall precaution. Hematology followup. May benefit from TRCU type services. Follow up labs in the morning. Thank you and we will follow with you. Robert Eastman MD [facility] # [id number]
[2017-12-01] MEDS: Albuterol-Ipratrop 3 mg / 0.5 (3 ml) UD IH SCH ×4 (01:00→19:56)
[2017-12-01] MEDS: Saliva Substitute 44.3 ML PO SCH ×6 (05:29→16:40)
[2017-12-01] MEDS: Morphine 15 mg Immediate Release Tab PO PRN (05:30)
[2017-12-01 07:07] LABS: BASO # 0.01 K/mm3 (0.0-2.0); BASO % 0.2 % (0.0-3.0); EOS % 0.2 % (1.5-5.0); GRAN # 4.97 (1.4-6.5); GRAN % 80.5 % (50.0-68.0); LYMPH # 0.4 (1.2-3.4); LYMPH % 6.6 % (22.0-35.0); MEAN CELL VOLUME 100.3 fl (80.0-105.0); MEAN CORPUSCULAR HEMOGLOBIN 31.4 pg (25.0-35.0); MEAN CORPUSCULAR HGB CONC 31.3 g/dl (31.0-37.0); MEAN PLATELET VOLUME 10.4 fl (7.0-11.0); MONO # 0.8 (0.1-0.6); MONO % 12.5 % (1.0-6.0); RBC 3.18 10^6/uL (3.5-6.1); RED CELL DISTRIBUTION WIDTH 18.2 % (11.5-14.5); WHITE BLOOD COUNT 6.2 10^3/ul (4.5-11.0)
[2017-12-01 07:17] LABS: ALB/GLOB RATIO 1.3 (1.1-1.8); ALBUMIN 3.6 g/dL (3.0-4.8); ALT/SGPT 52 U/L (7-56); AST/SGOT 38 U/L (14-36); BLOOD UREA NITROGEN 13 mg/dL (7-21); CALCIUM 8.9 mg/dL (8.4-10.5); GFR AFRICAN-AMERICAN > 60; GFR NON-AFRICAN AMERICAN > 60
[2017-12-01] MEDS: Insulin Lispro (humaLOG) LOW Coverage SC SCH ×3 (07:34→17:00)
[2017-12-01] MEDS: Pantoprazole 40 mg EC Tab PO SCH (07:34)
[2017-12-01 08:09] LABS: PLATELET COUNT 22 10^3/uL (120.0-450.0); PLATELET COUNT MANUAL 27 K/mm3 (120-450)
[2017-12-01] MEDS ORDERED: Potassium & Sodium Phosphate PO STA (09:25)
[2017-12-01] MEDS: Morphine 30 mg SR Tab PO SCH (09:49)
[2017-12-01] MEDS: Magnesium Oxide 400 mg Tab UD PO SCH ×2 (09:49→17:39)
[2017-12-01] MEDS: PRISTIQ 50 MG PO SCH ×3 (09:53→17:41)
--- NOTE | 2017-12-01 12:16 | CP.PCM.PN ---
Subjective - Date & Time of Evaluation Date of Evaluation: 12/01/17 Time of Evaluation: 09:30 - Subjective Subjective: Comfortable in bed, afebrile, not in distress. Objective - Vital Signs/Intake and Output Vital Signs (last 24 hours): Temp Pulse Resp BP Pulse Ox 98.4 F 101 H 18 136/80 97 11/30/17 16:52 11/30/17 16:52 11/30/17 16:52 11/30/17 16:52 11/30/17 16:52 Intake and Output: 11/30/17 11/30/17 06:59 18:59 Intake Total 555 Balance 555 - Medications Medications: Current Medications Acetaminophen (Tylenol 325mg Tab) 650 mg PO Q4H PRN PRN Reason: Fever >100.5 F Last Admin: 11/27/17 05:47 Dose: 650 mg Albuterol/Ipratropium (Duoneb 3 Mg/0.5 Mg (3 Ml) Ud) 3 ml IH [id number] [facility] Last Admin: 11/30/17 13:35 Dose: 3 ml Al Hydrox/Mg Hydrox/Simethicone 30 ml/Diphenhydramine HCl 75 mg/Lidocaine 30 ml 0 ml PO Q2H PRN PRN Reason: Mouth/Throat Pain Last Admin: 11/22/17 18:45 Dose: 15 ml Dextrose (Dextrose 50% Inj) 0 ml IV STAT PRN; Protocol PRN Reason: Hypoglycemia Protocol Docusate Sodium (Colace) 100 mg PO BID [facility] Last Admin: 11/30/17 09:28 Dose: 100 mg Home Med (Home Med) 1 unit PO TID [facility] Last Admin: 11/30/17 14:11 Dose: 1 unit Dextrose (Dextrose 5% In Water 1000 Ml) 1,000 mls @ 0 mls/hr IV .Q0M PRN; Protocol; Per Protocol PRN Reason: Hypoglycemia Protocol Insulin Human Lispro (Humalog Low) 0 units SC ACHS [facility] PRN Reason: Protocol Last Admin: 11/30/17 12:50 Dose: 2 unit Magnesium Oxide (Mag-Ox) 400 mg PO BID [facility] Last Admin: 11/30/17 09:28 Dose: 400 mg Metoclopramide HCl (Reglan) 5 mg PO ACHS [facility] Last Admin: 11/30/17 12:44 Dose: 5 mg Morphine Sulfate (Morphine Extended Release Tab) 30 mg PO Q12 [facility] Last Admin: 11/30/17 12:44 Dose: 30 mg Morphine Sulfate (Morphine) 2 mg IVP Q4 PRN PRN Reason: Pain, severe (8-10) Last Admin: 11/29/17 14:25 Dose: 2 mg Morphine Sulfate (Morphine Immediate Release Tab) 15 mg PO Q6 PRN PRN Reason: Pain, moderate (4-7) Last Admin: 11/30/17 09:27 Dose: 15 mg Pantoprazole Sodium (Protonix Ec Tab) 40 mg PO ACB [facility] Last Admin: 11/30/17 08:04 Dose: 40 mg Saliva Substitute (Saliva Substitute) 0 ml PO Q2 [facility] Last Admin: 11/30/17 14:14 Dose: 44.3 ml - Labs Labs: 11/30/17 06:25 11/30/17 06:25 PT 12.6 SECONDS (9.4-12.5) H 11/27/17 06:30 INR 1.09 11/27/17 06:30 APTT 24.3 Seconds (25.1-36.5) L 11/27/17 06:30 - Constitutional Appears: Chronically Ill - Head Exam Head Exam: NORMAL INSPECTION - Respiratory Exam Respiratory Exam: Decreased Breath Sounds - Cardiovascular Exam Cardiovascular Exam: +S1, +S2 - GI/Abdominal Exam GI & Abdominal Exam: Soft. absent: Tenderness Assessment and Plan - Assessment and Plan (Free Text) Plan: Assessment S/P sepsis due to right sided HCAP, with neutropenia history of sepsis due to right middle lobe HCAP on top of ESBL Klebsiella and Proteus UTI stage 3 decubitus ulcer history of Systemic viral illness with Influenza and acute bronchitis stage 4 lung cancer history of asymptomatic bacteriuria with VRE in the urine DM HTN depression lower back tumor obesity with BMI 30 Plan completed 7 days of Doxycycline and Merrem - continue to monitor off antibiotics since she is at risk for healthcare-associated infections overall prognosis is poor
--- NOTE | 2017-12-01 12:47 | CP.PCM.DIS ---
Provider - Provider Date of Admission: 11/21/17 18:31 Attending physician: Yosef Reis MD Consults: BABAK Eastman Advanced care planning Beatriz Starr Time Spent in preparation of Discharge (in minutes): 60 Diagnosis - Discharge Diagnosis (1) Neutropenia Status: Acute (2) Anemia Status: Chronic (3) Small cell lung cancer Status: Chronic (4) Hypokalemia Status: Acute (5) Pancytopenia Status: Acute (6) Shortness of breath Status: Acute Hospital Course - Lab Results Lab Results: Micro Results 11/22/17 15:00 Rectal Fluid VRE Culture - Final 11/21/17 23:14 Urine,Clean Catch Urine Culture - Final 50-100,000 CFU/ML. MULTIPLE SPECIES. SUGGEST REPEAT SPECIMEN. Most Recent Lab Values WBC 6.2 10^3/ul (4.5-11.0) D 12/01/17 06:30 RBC 3.18 10^6/uL (3.5-6.1) L 12/01/17 06:30 Hgb 10.0 g/dL (12.0-16.0) L 12/01/17 06:30 Hct 31.9 % (36.0-48.0) L 12/01/17 06:30 MCV 100.3 fl (80.0-105.0) 12/01/17 06:30 MCH 31.4 pg (25.0-35.0) 12/01/17 06:30 MCHC 31.3 g/dl (31.0-37.0) 12/01/17 06:30 RDW 18.2 % (11.5-14.5) H 12/01/17 06:30 Plt Count 22 10^3/uL (120.0-450.0) L* 12/01/17 06:30 Manual Plt Count 27 K/mm3 (120-450) L* 12/01/17 06:30 MPV 10.4 fl (7.0-11.0) 12/01/17 06:30 Gran % 80.5 % (50.0-68.0) H 12/01/17 06:30 Lymph % (Auto) 6.6 % (22.0-35.0) L 12/01/17 06:30 Wilkin % (Auto) 12.5 % (1.0-6.0) H 12/01/17 06:30 Eos % (Auto) 0.2 % (1.5-5.0) L 12/01/17 06:30 Baso % (Auto) 0.2 % (0.0-3.0) 12/01/17 06:30 Gran # 4.97 (1.4-6.5) 12/01/17 06:30 Lymph # (Auto) 0.4 (1.2-3.4) L 12/01/17 06:30 Wilkin # (Auto) 0.8 (0.1-0.6) H 12/01/17 06:30 Eos # (Auto) 0.0 (0.0-0.7) 12/01/17 06:30 Baso # (Auto) 0.01 K/mm3 (0.0-2.0) 12/01/17 06:30 Platelet Evaluation Low (NORMAL) 11/24/17 06:00 PT 12.6 SECONDS (9.4-12.5) H 11/27/17 06:30 INR 1.09 11/27/17 06:30 APTT 24.3 Seconds (25.1-36.5) L 11/27/17 06:30 D-Dimer, Quantitative 3117 ng/mL 11/21/17 14:40 Sodium 141 mmol/L (132-148) 12/01/17 06:30 Potassium 4.4 mmol/L (3.6-5.0) 12/01/17 06:30 Chloride 102 mmol/L (98-107) 12/01/17 06:30 Carbon Dioxide 28 mmol/L (21-33) 12/01/17 06:30 Anion Gap 15 (10-20) 12/01/17 06:30 BUN 13 mg/dL (7-21) 12/01/17 06:30 Creatinine 0.4 mg/dl (0.7-1.2) L 12/01/17 06:30 Est GFR ( Amer) > 60 12/01/17 06:30 Est GFR (Non-Af Amer) > 60 12/01/17 06:30 POC Glucose (mg/dL) 195 mg/dL (65-110) H 12/01/17 07:18 Random Glucose 211 mg/dL (70-110) H 12/01/17 06:30 Hemoglobin A1c 7.2 % (4.2-6.5) H 11/22/17 12:30 Calcium 8.9 mg/dL (8.4-10.5) 12/01/17 06:30 Phosphorus 2.3 mg/dL (2.5-4.5) L 12/01/17 06:30 Magnesium 2.2 mg/dL (1.7-2.2) 12/01/17 06:30 Total Bilirubin 0.4 mg/dL (0.2-1.3) 12/01/17 06:30 AST 38 U/L (14-36) H 12/01/17 06:30 ALT 52 U/L (7-56) 12/01/17 06:30 Alkaline Phosphatase 297 U/L (38-126) H 12/01/17 06:30 Lactate Dehydrogenase 3149 U/L (333-699) H 11/21/17 14:40 Total Creatine Kinase 57 U/L (35-230) 11/21/17 14:40 Troponin I < 0.01 ng/mL 11/21/17 14:40 Total Protein 6.5 g/dL (5.8-8.3) 12/01/17 06:30 Albumin 3.6 g/dL (3.0-4.8) 12/01/17 06:30 Globulin 2.9 gm/dL 12/01/17 06:30 Albumin/Globulin Ratio 1.3 (1.1-1.8) 12/01/17 06:30 Vitamin B12 884 pg/mL (239-931) 11/22/17 12:30 Folate 3.4 ng/mL 11/22/17 12:30 Procalcitonin 1.14 NG/ML (0.19-0.49) H 11/22/17 10:30 Urine Color Yellow (YELLOW) 11/21/17 17:10 Urine Appearance Clear (CLEAR) 11/21/17 17:10 Urine pH 6.0 (4.7-8.0) 11/21/17 17:10 Ur Specific More[place] 1.010 (1.005-1.035) 11/21/17 17:10 Urine Protein Negative mg/dL (<30 mg/dL) 11/21/17 17:10 Urine Glucose (UA) Negative mg/dL (NEGATIVE) 11/21/17 17:10 Urine Ketones Negative mg/dL (NEGATIVE) 11/21/17 17:10 Urine Blood Trace-intact (NEGATIVE) H 11/21/17 17:10 Urine Nitrate Negative (NEGATIVE) 11/21/17 17:10 Urine Bilirubin Negative (NEGATIVE) 11/21/17 17:10 Urine Urobilinogen 0.2 E.U./dL (<1 E.U./dL) 11/21/17 17:10 Ur Leukocyte Esterase Moderate Dimitri/uL (NEGATIVE) H 11/21/17 17:10 Urine RBC 2 - 5 /hpf (0-2) 11/21/17 17:10 Urine WBC 5 - 10 /hpf (0-6) 11/21/17 17:10 Ur Epithelial Cells Many /hpf (0-5) 11/21/17 17:10 Amorphous Sediment Trace 11/21/17 17:10 Blood Type A POSITIVE 11/24/17 12:45 Antibody Screen Negative 11/24/17 12:45 Crossmatch See Detail 11/24/17 12:45 BBK History Checked Patient has bt 11/24/17 12:45 - Hospital Course Hospital Course: A 72 year old female with PMH 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 Patient recently completed her radiation therapy last week (last one 11/18). Patient states that she feels increasing generalized weakness, nausea. Yesterday at 6 AM, patient also started feeling right sided cp, achy, intermittent. CTA neg for PE, US LE neg for DVT. Patient found to be pancytopenic, hypokalemic. Patient put on neutropenic precautions, started on daily granix. Patient transfused prbcs, platelets for anemia, thrombocytopenia. ID consulted for left lower lobe pneumonia, treated appropriately with antibiotics. Electrolyte derangements managed while on floor. Physical therapy recommended TCU, patient amenable to get strengthening there. Spoke with outpatient pharmacy for N-plate weekly while on TCU. Advanced care planning Winifred Starr spoke to patient, patient wants all resuscitative measures in place. Case seen and discussed with Dr Puente. Discharge Exam - Head Exam Head Exam: NORMAL INSPECTION - Additional Findings Additional findings: - Constitutional Appears: Non-toxic, Cachectic, Chronically Ill - Head Exam Head Exam: ATRAUMATIC, NORMOCEPHALIC - Eye Exam Eye Exam: EOMI, PERRL. absent: Conjunctival injection, Nystagmus, Scleral icterus Pupil Exam: NORMAL ACCOMODATION, PERRL. absent: Fixed, Irregular, Unequal - ENT Exam ENT Exam: Mucous Membranes Moist - Neck Exam Neck Exam: Full ROM - Respiratory Exam Respiratory Exam: Clear to Ausculation Bilateral, NORMAL BREATHING PATTERN. absent: Accessory Muscle Use, Rales, Rhonchi, Wheezes, Stridor - Cardiovascular Exam Cardiovascular Exam: RRR, +S1, +S2. absent: Murmur Additional comments: + right sided chest port in place - GI/Abdominal Exam GI & Abdominal Exam: Soft, Normal Bowel Sounds. absent: Distended, Firm, Guarding, Rigid, Tenderness, Mass, Organomegaly, Rebound - Extremities Exam Extremities Exam: Full ROM, Normal Inspection. absent: Calf Tenderness, Pedal Edema - Back Exam Back Exam: NORMAL INSPECTION - Neurological Exam Neurological Exam: Alert, Awake, Oriented x3 - Psychiatric Exam Psychiatric exam: Normal Affect, Normal Mood - Skin Skin Exam: Dry, Normal Color, Warm Discharge Plan - Discharge Medications Prescriptions: Desvenlafaxine [Desvenlafaxine ER] 50 mg PO DAILY #30 tab.er.24h - Follow Up Plan Condition: FAIR Disposition: TRANSF TO SNF Instructions: Immune Thrombocytopenia (ITP), Pneumonia, Adult (DC), Anemia of Chronic Disease (DC), Sepsis, Adult (DC), Portacath (DC) Referrals: Jorge Luis Hernandez MD [Staff Provider] - Rudy Puente MD [Staff Provider] - Robert Eastman MD [Staff Provider] -
[2017-12-01] MEDS: Aluminum Hydroxide/Magnesium 30 ML, DiphenhydrAMINE 75 MG, Lidocaine 2% Viscous 30 ML PO PRN (14:27)
[2017-12-01 16:07] VITALS: O2SAT 96
[2017-12-01 16:09] VITALS: BP 147/81; PULSE 81; RESP 20; TEMP 98
--- NOTE | 2017-12-01 21:00 | PN ---
Copied To: Robert Eastman MD Attending MD: Robert Eastman MD DATE: 12/01/2017 PULMONARY PROGRESS NOTE REFERRING PHYSICIAN: Yosef Reis MD SUBJECTIVE: She is lying in the bed, head at 45 degrees, sleepy, arousable. Night was unremarkable. Feels better. No cough. No sputum production. Gets short of breath with exertion. No chest pain. No nausea. No vomiting. No diarrhea. No leg pain or leg swelling. OBJECTIVE: GENERAL: In no acute distress. VITAL SIGNS: Temperature is 98, heart rate is 81, respiratory rate is 20, blood pressure 147/81, pulse ox 96% on nasal cannula. HEENT: Dry mucous membranes. Crowded airway. Mallampati score is 4. NECK: Supple. No JVD. LUNGS: Have a fair airflow with rhonchi. HEART: S1 and S2. ABDOMEN: Soft, nontender. No organomegaly. EXTREMITIES: There is no edema. NEUROLOGICAL: Awake and alert. Follows simple command. MEDICATIONS: She is on Colace 100 mg twice a day, DuoNeb every 6 hours, Magic mouth wash every 2 hours p.r.n., mag oxide 400 mg twice a day, Protonix 40 mg daily, Reglan 5 mg before meals and at bedtime, Saliva Substitute, Tylenol p.r.n. LABORATORY DATA: Shows hemoglobin 10, hematocrit 31.9, WBC 6.2, platelet count is 22. Sodium 141, potassium 4.4, chloride 102, bicarbonate 28, BUN 13, creatinine 0.4, glucose 211, calcium 8.9, phosphorus 2.3, magnesium 2.2, AST 38, ALT 22, alkaline phosphatase is 297. Albumin is 3.6. IMPRESSION AND PLAN: Pancytopenia, thrombocytopenia, leukocytes are improving. Has resectable lung cancer with extensive disease involving the bones and spine, history of fine radiation, esophagitis, gastritis, chronic lung disease, anemia, ADL dysfunction, unsteady on the feet. Pulmonary point of view, doing well. Continue bronchodilator, pain management. Fall precaution. Gastric prophylaxis. Follow up CBC. Bleeding precaution. She is being transferred to TCU for continued care. Thank you and we will follow with you. Robert Eastman MD [facility] # [id number]
== END 2017-12-01 20:58 | DRG 808 ==
LOC: ED 13:36 → ERH 18:31 → 3RNO 20:24
PROVIDERS: ADMIT Family Medicine; ATTEND Family Medicine
PROC: 30233N1 Transfusion of Nonautologous Red Blood Cells into Peripheral Vein, Percutaneous Approach (ICD-10-PCS; 2017-11-22)
PROC: 3E0F7GC Introduction of Other Therapeutic Substance into Respiratory Tract, Via Natural or Artificial Opening (ICD-10-PCS; 2017-11-22)
PROC: 30233R1 Transfusion of Nonautologous Platelets into Peripheral Vein, Percutaneous Approach (ICD-10-PCS; principal; 2017-11-23)
DX: D61.818 Other pancytopenia (principal); L89.153 Pressure ulcer of sacral region, stage 3; J18.9 Pneumonia, unspecified organism; C78.7 Secondary malignant neoplasm of liver and intrahepatic bile duct; C79.51 Secondary malignant neoplasm of bone; C34.90 Malignant neoplasm of unspecified part of unspecified bronchus or lung; J44.0 Chronic obstructive pulmonary disease with (acute) lower respiratory infection; E87.6 Hypokalemia; K21.0 Gastro-esophageal reflux disease with esophagitis; E11.51 Type 2 diabetes mellitus with diabetic peripheral angiopathy without gangrene; D63.8 Anemia in other chronic diseases classified elsewhere; E78.00 Pure hypercholesterolemia, unspecified; I10 Essential (primary) hypertension; F32.9 Major depressive disorder, single episode, unspecified; K29.70 Gastritis, unspecified, without bleeding; F41.9 Anxiety disorder, unspecified; E66.9 Obesity, unspecified; Z68.30 Body mass index [BMI] 30.0-30.9, adult; Z92.3 Personal history of irradiation; Z92.21 Personal history of antineoplastic chemotherapy; Z96.651 Presence of right artificial knee joint; Y95 Nosocomial condition; Z87.891 Personal history of nicotine dependence

== ENCOUNTER 2017-12-01 20:58 | Inpatient (IN) | payer OTHER ==
[2017-12-01] MEDS ORDERED: DiphenhydrAMINE 12.5 mg/5 ml LIQ UD (5 ml) PO PRN (21:36)
[2017-12-01] MEDS ORDERED: Alum-Mag Hydrox-Simethicone Susp (30 mL) PO PRN (21:36)
[2017-12-01] MEDS: Morphine 30 mg SR Tab PO SCH (22:00)
[2017-12-01] MEDS: Insulin Lispro (humaLOG) LOW Coverage SC SCH (22:43)
[2017-12-01 23:34] VITALS: BMI 28.7
[2017-12-02] MEDS: Albuterol-Ipratrop 3 mg / 0.5 (3 ml) UD IH SCH ×4 (01:24→19:48)
[2017-12-02] MEDS: Morphine 15 mg Immediate Release Tab PO PRN ×3 (01:36→15:19)
[2017-12-02] MEDS: Pantoprazole 40 mg EC Tab PO SCH (06:00)
[2017-12-02] MEDS: Insulin Lispro (humaLOG) LOW Coverage SC SCH ×4 (06:40→22:23)
--- NOTE | 2017-12-02 06:55 | CP.PCM.HP ---
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 Patient recently completed her radiation therapy last week (last one 11/18). Patient states that she feels increasing generalized weakness, nausea. One day prior to arrival to ED, patient also started feeling right sided cp, achy, intermittent. CTA neg for PE, US LE neg for DVT. Patient found to be pancytopenic, hypokalemic. Patient put on neutropenic precautions, started on daily granix. Patient transfused prbcs, platelets for anemia, thrombocytopenia, respectively. ID consulted for left lower lobe pneumonia, treated appropriately with IV antibiotics. Electrolyte derangements managed while on floor. Physical therapy recommended TCU. Patient transferred to TCU for further rehab and management. Patient to receive N-plate weekly in TCU. Currently, patient seen and examined while sitting up in chair in TCU. Patient states that she still feels weak. Rates pain 3-4/10, under right wing bone. patient reports sleeping okay last night. Denies mouth sores, bleeding, petechiae, swelling of leg, nausea, vomiting, abdominal cramps, fevers, chills, abdominal pain, urinary symptoms. Ate 50% breakfast this AM. 12 point ROS obtained and negative, except as per hPI. PMD: Dr. Puente/ Dr. Jarrett Radiology/ Oncology: Dr. Goyal Nephrology: Dr. 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 Denies ETOH, drug use. 12 point ROS obtained and neg, except as per HPI. Present on Admission - Present on Admission Any Indicators Present on Admission: No History of DVT/PE: No History of Uncontrolled Diabetes: No Urinary Catheter: No Decubitus Ulcer Present: No Review of Systems - Review of Systems All systems: reviewed and no additional remarkable complaints except Review of Systems: as per hPI Past Patient History - Infectious Disease Hx of Infectious Diseases: None - Tetanus Immunizations Tetanus Immunization: Unknown - Past Medical History & Family History Past Medical History?: Yes - Past Social History Smoking Status: Former Smoker - CARDIAC Hx Congestive Heart Failure: Yes Hx Hypercholesterolemia: Yes Hx Hypertension: Yes - PULMONARY Hx Respiratory Disorders: Yes Hx Pneumonia: Yes Other/Comment: small cell lung ca - NEUROLOGICAL Hx Neurological Disorder: No - HEENT Hx HEENT Problems: Yes (eyeglases) - RENAL Hx Chronic Kidney Disease: No - ENDOCRINE/METABOLIC Hx Diabetes Mellitus Type 2: Yes - HEMATOLOGICAL/ONCOLOGICAL Hx Blood Disorders: Yes Hx Anemia: Yes Hx Cancer: Yes (lung) Hx Chemotherapy: Yes (Last Tx 11/20/17) Hx Metastesis: Yes (liver, bone,[spine & epidural mass]) Other/Comment: radiation markings to abd abd chest - INTEGUMENTARY Hx Dermatological Problems: Yes Other/Comment: SACRAL PRESSURE ULCER stg 2 1cm x 1cm wound bed is red/pink surounded by reddish skin optifoam intact, multiple purple and red skin discolorations to both legs and arms, thick long hard toenails, radiation markings to abd and chest - MUSCULOSKELETAL/RHEUMATOLOGICAL Hx Falls: No - GASTROINTESTINAL Hx Gastrointestinal Disorders: No - GENITOURINARY/GYNECOLOGICAL Hx Genitourinary Disorders: No - PSYCHIATRIC Hx Psychophysiologic Disorder: Yes Hx Anxiety: Yes Hx Depression: Yes - SURGICAL HISTORY Hx Surgeries: Yes Hx Appendectomy: Yes Hx Cardiac Catheterization: Yes Hx Joint Replacement: Yes (RIGHT TKR 10/2012) Other/Comment: knee replacement 2012 right, 2 c-sections, r cw pac - ANESTHESIA Hx Anesthesia Reactions: No Hx Malignant Hyperthermia: No Meds Home Medications: Home Medication List Medication Instructions Recorded Confirmed Type Tbo-Filgrastim [Granix] 480 mcg SC DAILY #7 ml 12/02/17 Rx Allergies/Adverse Reactions: Allergies Allergy/AdvReac Type Severity Reaction Status Date / Time Sulfa (Sulfonamide Allergy ANAPHYLAXIS Verified 11/21/17 14:19 Antibiotics) Physical Exam - Constitutional Appears: Non-toxic, No Acute Distress - Head Exam Head Exam: ATRAUMATIC, NORMOCEPHALIC - Eye Exam Eye Exam: EOMI, PERRL. absent: Conjunctival injection, Nystagmus, Scleral icterus Pupil Exam: NORMAL ACCOMODATION, PERRL. absent: Fixed, Irregular, Miosis, Unequal - ENT Exam ENT Exam: Mucous Membranes Moist - Neck Exam Neck exam: Positive for: Full Rom, Normal Inspection - Respiratory Exam Respiratory Exam: Clear to Auscultation Bilateral, NORMAL BREATHING PATTERN. absent: Accessory Muscle Use, Chest Wall Tenderness, Rhonchi, Wheezes, Stridor Additional comments: + right sided chest port, c, d, i - Cardiovascular Exam Cardiovascular Exam: RRR, +S1, +S2. absent: Systolic Murmur - GI/Abdominal Exam GI & Abdominal Exam: Normal Bowel Sounds, Soft. absent: Distended, Firm, Guarding, Organomegaly, Rebound, Tenderness - Extremities Exam Extremities exam: Positive for: normal inspection. 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 Patient remains persistently throbocytopenic despite several platelet transfusions, will give N-plate weekly. Patient transferred to TCU for further rehab and management: Persistent Thrombocytopenia: - manual plt count 33 yesterday - s/p 1 unit platelets 11/23, 11/26, 11/29 - discuss with pharmacy for N plate to be given inpatient - monitor Generalized weakness: 2/2 radiation, Stage IV metastatic small cell lung cancer - PT eval: TCU - Ensure supplements - pain management - reglan prn - monitor Neutropenia: - resolving - received Neulasta on 11/18 outpatient - granix 480 mcg sq daily - ANC 2.56 today - neutropenic precautions off - afebrile - CXR shows left basilar atelectasis vs infiltrate - CTA shows moderate right pleural effusion with compressive atelectasis. chronic infiltrative changes in left lung. Partial collapse, consolidative changes in RUL - procal 1.14 high - ID consulted. appreciate recs. s/p doxy and merrem for HCAP. - monitor Right sided cp: likely musculoskeletal, ruled out ACS, PE - resolved - trop neg x1, initial EKG neg - CTA neg for PE - US LE shows no DVT - pain management Hypokalemia: - resolved - monitor Anemia: - macrocytic MCV 103.8 - Vitamin B12, folate normal - Hgb 9.6 today (prev 10.4). s/p 2 units prbcs 8/ - monitor Hx of Stage IV SCC of lung with mets: - pain management: morphine PO ER, IR. added IV prn morphine sulfate - s/p chemo Hx of COPD: - nikunj - Dr Eastman on board. Appreciate recs. Hx of DM: - HgbA1c 7.2 - ISS low Palliative consult called. Patient wants full code. Case seen and discussed with Dr Puente.
[2017-12-02] MEDS ORDERED: Pantoprazole 40 mg EC Tab PO SCH (07:30)
[2017-12-02] MEDS ORDERED: DESVENLAFAXINE 50 MG PO SCH (10:00)
[2017-12-02] MEDS ORDERED: GRANIX SC SCH ×2 (10:00→11:20)
[2017-12-02] MEDS ORDERED: PRISTIQ 50 MG PO SCH (10:00)
[2017-12-02] MEDS ORDERED: Home Med 1 UNIT PO SCH (10:00)
[2017-12-02] MEDS: Magnesium Oxide 400 mg Tab UD PO SCH ×2 (10:27→17:40)
[2017-12-02] MEDS: Morphine 30 mg SR Tab PO SCH (10:30)
[2017-12-02] MEDS ORDERED: Morphine 2 mg/ml ISec IVP PRN (11:32)
--- NOTE | 2017-12-02 12:34 | CP.PCM.CON ---
History of Present Illness - History of Present Illness History of Present Illness: 72 year old female with PMH of DM, HTN, and depression, lower back tumor, obesity with BMI 31, stage 4 lung cancer was [place] [facility] [place] and was found to have right sided HCAP. She was treated with antibiotics and got better. She is now transferred to [facility] for continued medical therapy and physical rehab. She is currently comfortable in bed, no fevers, not in distress, no vomiting, no abdominal pain, no diarrhea. Infectious diseases consult is requested to further evaluate and manage. Review of Systems - Review of Systems All systems: reviewed and no additional remarkable complaints except (as per HPI ) Past Patient History - Infectious Disease Hx of Infectious Diseases: None - Tetanus Immunizations Tetanus Immunization: Unknown - Past Medical History & Family History Past Medical History?: Yes - Past Social History Smoking Status: Former Smoker - CARDIAC Hx Congestive Heart Failure: Yes Hx Hypercholesterolemia: Yes Hx Hypertension: Yes - PULMONARY Hx Respiratory Disorders: Yes Hx Pneumonia: Yes Other/Comment: small cell lung ca - NEUROLOGICAL Hx Neurological Disorder: No - HEENT Hx HEENT Problems: Yes (eyeglases) - RENAL Hx Chronic Kidney Disease: No - ENDOCRINE/METABOLIC Hx Diabetes Mellitus Type 2: Yes - HEMATOLOGICAL/ONCOLOGICAL Hx Blood Disorders: Yes Hx Anemia: Yes Hx Cancer: Yes (lung) Hx Chemotherapy: Yes (Last Tx 11/20/17) Hx Metastesis: Yes (liver, bone,[spine & epidural mass]) Other/Comment: radiation markings to abd abd chest - INTEGUMENTARY Hx Dermatological Problems: Yes Other/Comment: SACRAL PRESSURE ULCER stg 2 1cm x 1cm wound bed is red/pink surounded by reddish skin optifoam intact, multiple purple and red skin discolorations to both legs and arms, thick long hard toenails, radiation markings to abd and chest - MUSCULOSKELETAL/RHEUMATOLOGICAL Hx Falls: No - GASTROINTESTINAL Hx Gastrointestinal Disorders: No - GENITOURINARY/GYNECOLOGICAL Hx Genitourinary Disorders: No - PSYCHIATRIC Hx Psychophysiologic Disorder: Yes Hx Anxiety: Yes Hx Depression: Yes - SURGICAL HISTORY Hx Surgeries: Yes Hx Appendectomy: Yes Hx Cardiac Catheterization: Yes Hx Joint Replacement: Yes (RIGHT TKR 10/2012) Other/Comment: knee replacement 2013 right, 2 c-sections, r cw pac - ANESTHESIA Hx Anesthesia Reactions: No Hx Malignant Hyperthermia: No Meds Home Medications: Home Medication List Medication Instructions Recorded Confirmed Type Tbo-Filgrastim [Granix] 480 mcg SC DAILY #7 ml 12/02/17 Rx Allergies/Adverse Reactions: Allergies Allergy/AdvReac Type Severity Reaction Status Date / Time Sulfa (Sulfonamide Allergy ANAPHYLAXIS Verified 11/21/17 14:19 Antibiotics) - Medications Medications: Current Medications Acetaminophen (Tylenol 325mg Tab) 650 mg PO Q4H PRN PRN Reason: Fever >100.5 F Al Hydrox/Mg Hydrox/Simethicone (Maalox Plus 30 Ml) 30 ml PO Q2H PRN PRN Reason: Mouth/Throat Pain Albuterol/Ipratropium (Duoneb 3 Mg/0.5 Mg (3 Ml) Ud) 3 ml [facility] [id number] [facility] Last Admin: 12/02/17 01:24 Dose: 3 ml Docusate Sodium (Colace) 100 mg PO BID [facility] Home Med (Home Med) 1 unit PO TID [facility] Insulin Human Lispro (Humalog Low) 0 units SC [facility] PRN Reason: Protocol Last Admin: 12/01/17 22:43 Dose: Not Given Lidocaine HCl (Lidocaine 2% Viscous) 30 ml PO Q2H PRN PRN Reason: Mouth/Throat Pain Magnesium Oxide (Mag-Ox) 400 mg PO BID [facility] Metoclopramide HCl (Reglan) 5 mg PO ACHS [facility] Last Admin: 12/01/17 22:25 Dose: Not Given Morphine Sulfate (Morphine Immediate Release Tab) 15 mg PO Q6 PRN PRN Reason: Pain, moderate (4-7) Last Admin: 12/02/17 01:36 Dose: 15 mg Morphine Sulfate (Morphine Extended Release Tab) 30 mg PO Q12 [facility] Last Admin: 12/01/17 22:00 Dose: 30 mg Pantoprazole Sodium (Protonix Ec Tab) 40 mg PO 0600 [facility] Last Admin: 12/02/17 06:00 Dose: 40 mg Physical Exam - Constitutional Appears: Chronically Ill - Head Exam Head Exam: NORMAL INSPECTION - Neck Exam Neck exam: Negative for: Meningismus - Respiratory Exam Respiratory Exam: Decreased Breath Sounds - Cardiovascular Exam Cardiovascular Exam: +S1, +S2 - GI/Abdominal Exam GI & Abdominal Exam: Soft. absent: Tenderness Results - Vital Signs Recent Vital Signs: Last Vital Signs Temp Pulse Resp 20 12/01/17 23:36 BP Pulse Ox Assessment & Plan - Assessment and Plan (Free Text) Plan: Assessment S/P sepsis due to right sided HCAP, with neutropenia history of sepsis due to right middle lobe HCAP on top of ESBL Klebsiella and Proteus UTI stage 3 decubitus ulcer history of Systemic viral illness with Influenza and acute bronchitis stage 4 lung cancer history of asymptomatic bacteriuria with VRE in the urine DM HTN depression lower back tumor obesity with BMI 30 Plan completed 7 days of Doxycycline and Merrem - continue to monitor off antibiotics since she is at risk for nosocomial infections overall prognosis is poor
[2017-12-02] MEDS: PRISTIQ 50 MG PO SCH ×2 (13:57→17:38)
[2017-12-02] MEDS: Morphine 15 mg SR Tab PO SCH (22:21)
[2017-12-03] MEDS: Morphine 15 mg Immediate Release Tab PO PRN (01:52)
[2017-12-03] MEDS: Albuterol-Ipratrop 3 mg / 0.5 (3 ml) UD IH SCH ×3 (02:15→13:53)
[2017-12-03] MEDS: Pantoprazole 40 mg EC Tab PO SCH (05:41)
[2017-12-03] MEDS: Insulin Lispro (humaLOG) LOW Coverage SC SCH ×4 (07:41→22:18)
[2017-12-03 08:03] LABS: BASO # 0.02 K/mm3 (0.0-2.0); BASO % 0.2 % (0.0-3.0); GRAN # 8.66 (1.4-6.5); HEMOGLOBIN 9.8 g/dL (12.0-16.0); LYMPH # 0.5 (1.2-3.4); LYMPH % 5.1 % (22.0-35.0); MEAN CELL VOLUME 100.7 fl (80.0-105.0); MEAN CORPUSCULAR HEMOGLOBIN 31.9 pg (25.0-35.0); MEAN CORPUSCULAR HGB CONC 31.7 g/dl (31.0-37.0); MEAN PLATELET VOLUME 10.3 fl (7.0-11.0); MONO # 1.2 (0.1-0.6); MONO % 11.7 % (1.0-6.0); RBC 3.07 10^6/uL (3.5-6.1); RED CELL DISTRIBUTION WIDTH 18.8 % (11.5-14.5); WHITE BLOOD COUNT 10.4 10^3/ul (4.5-11.0)
[2017-12-03 08:26] LABS: ALB/GLOB RATIO 1.3 (1.1-1.8); ALBUMIN 3.7 g/dL (3.0-4.8); ALT/SGPT 62 U/L (7-56); AST/SGOT 46 U/L (14-36); BLOOD UREA NITROGEN 13 mg/dL (7-21); CALCIUM 8.6 mg/dL (8.4-10.5); GFR AFRICAN-AMERICAN > 60; GFR NON-AFRICAN AMERICAN > 60
[2017-12-03 08:38] LABS: PLATELET COUNT 36 10^3/uL (120.0-450.0)
[2017-12-03 09:26] LABS: PLATELET COUNT MANUAL 54 K/mm3 (120-450)
[2017-12-03] MEDS: PRISTIQ 50 MG PO SCH ×3 (09:43→17:37)
[2017-12-03] MEDS: Morphine 15 mg SR Tab PO SCH ×2 (09:44→21:35)
[2017-12-03] MEDS: Magnesium Oxide 400 mg Tab UD PO SCH ×2 (09:44→17:38)
[2017-12-03] MEDS: GRANIX SC SCH (09:46)
[2017-12-03 14:57] LABS: LYMPHOCYTE 5 % (22.0-35.0); MONOCYTE 3 % (1.0-6.0); NEUTROPHIL 72 % (50.0-70.0); NUCLEATED RED BLOOD CELL 2 %; PLATELET ESTIMATE LOW (NORMAL)
[2017-12-03 14:58] LABS: ANISOCYTOSIS 1+; STOMATOCYTE 1+
[2017-12-03 14:59] LABS: BAND 20 % (0-2)
--- NOTE | 2017-12-03 15:12 | CP.PCM.PN ---
Subjective - Date & Time of Evaluation Date of Evaluation: 12/03/17 Time of Evaluation: 12:10 - Subjective Subjective: Walking around her bed without issues, no fevers, no diarrhea. Objective - Vital Signs/Intake and Output Vital Signs (last 24 hours): Temp Pulse Resp BP Pulse Ox 20 12/01/17 23:36 - Medications Medications: Current Medications Acetaminophen (Tylenol 325mg Tab) 650 mg PO Q4H PRN PRN Reason: Fever >100.5 F Al Hydrox/Mg Hydrox/Simethicone (Maalox Plus 30 Ml) 30 ml PO Q2H PRN PRN Reason: Mouth/Throat Pain Albuterol/Ipratropium (Duoneb 3 Mg/0.5 Mg (3 Ml) Ud) 3 ml IH [id number] [facility] Last Admin: 12/02/17 07:30 Dose: Not Given Docusate Sodium (Colace) 100 mg PO BID [facility] Last Admin: 12/02/17 10:26 Dose: 100 mg Home Med (Home Med) 1 unit PO TID [facility] Home Med (Home Med) 1 unit SC DAILY [facility] Insulin Human Lispro (Humalog Low) 0 units SC ACHS [facility] PRN Reason: Protocol Last Admin: 12/02/17 06:40 Dose: 1 u Lidocaine HCl (Lidocaine 2% Viscous) 30 ml PO Q2H PRN PRN Reason: Mouth/Throat Pain Magnesium Oxide (Mag-Ox) 400 mg PO BID [facility] Last Admin: 12/02/17 10:27 Dose: 400 mg Metoclopramide HCl (Reglan) [address] [facility] Last Admin: 12/02/17 08:27 Dose: 5 mg Morphine Sulfate (Morphine Immediate Release Tab) 15 mg PO Q6 PRN PRN Reason: Pain, moderate (4-7) Last Admin: 12/02/17 08:26 Dose: 15 mg Morphine Sulfate (Morphine) 2 mg IVP Q4H PRN PRN Reason: Pain, severe (8-10) Morphine Sulfate (Morphine Extended Release Tab) 45 mg PO Q12 [facility] Pantoprazole Sodium (Protonix Ec Tab) 40 mg PO 0600 [facility] Last Admin: 12/02/17 06:00 Dose: 40 mg - Constitutional Appears: Chronically Ill - Head Exam Head Exam: NORMAL INSPECTION - Respiratory Exam Respiratory Exam: Decreased Breath Sounds - Cardiovascular Exam Cardiovascular Exam: +S1, +S2 - GI/Abdominal Exam GI & Abdominal Exam: Soft. absent: Tenderness Assessment and Plan - Assessment and Plan (Free Text) Plan: Assessment S/P sepsis due to right sided HCAP, with neutropenia history of sepsis due to right middle lobe HCAP on top of ESBL Klebsiella and Proteus UTI stage 3 decubitus ulcer history of Systemic viral illness with Influenza and acute bronchitis stage 4 lung cancer history of asymptomatic bacteriuria with VRE in the urine DM HTN depression lower back tumor obesity with BMI 30 Plan completed 7 days of Doxycycline and Merrem - continue to monitor off antibiotics since she is at risk for hospital-acquired infections overall prognosis is poor
[2017-12-04] MEDS: Morphine 15 mg Immediate Release Tab PO PRN ×3 (02:11→16:01)
[2017-12-04] MEDS: Albuterol-Ipratrop 3 mg / 0.5 (3 ml) UD IH SCH ×4 (02:23→19:37)
[2017-12-04] MEDS: Pantoprazole 40 mg EC Tab PO SCH (05:20)
[2017-12-04] MEDS: Insulin Lispro (humaLOG) LOW Coverage SC SCH ×4 (07:00→23:07)
[2017-12-04] MEDS: PRISTIQ 50 MG PO SCH ×3 (10:36→17:56)
[2017-12-04] MEDS: Magnesium Oxide 400 mg Tab UD PO SCH ×2 (10:36→17:56)
[2017-12-04] MEDS: Morphine 15 mg SR Tab PO SCH ×2 (10:37→21:37)
[2017-12-04] MEDS: GRANIX SC SCH (10:39)
--- NOTE | 2017-12-04 17:15 | CP.PCM.PN ---
Subjective - Date & Time of Evaluation Date of Evaluation: 12/04/17 Time of Evaluation: 12:15 - Subjective Subjective: Afebrile, comfortable. Objective - Vital Signs/Intake and Output Vital Signs (last 24 hours): Temp Pulse Resp BP Pulse Ox 97.9 F 76 18 138/66 94 L 12/02/17 16:00 12/02/17 16:00 12/02/17 16:00 12/02/17 16:00 12/02/17 16:00 - Medications Medications: Current Medications Acetaminophen (Tylenol 325mg Tab) 650 mg PO Q4H PRN PRN Reason: Fever >100.5 F Al Hydrox/Mg Hydrox/Simethicone (Maalox Plus 30 Ml) 30 ml PO Q2H PRN PRN Reason: Mouth/Throat Pain Albuterol/Ipratropium (Duoneb 3 Mg/0.5 Mg (3 Ml) Ud) 3 ml IH [id number] [facility] Last Admin: 12/03/17 13:53 Dose: 3 ml Alprazolam (Xanax) 0.5 mg PO BID PRN; Protocol PRN Reason: Anxiety Last Admin: 12/03/17 12:23 Dose: 0.5 mg Docusate Sodium (Colace) 100 mg PO BID [facility] Last Admin: 12/03/17 09:48 Dose: 100 mg Home Med (Home Med) 1 unit PO TID [facility] Last Admin: 12/03/17 13:42 Dose: 1 unit Home Med (Home Med) 1 unit SC DAILY [facility] Last Admin: 12/03/17 09:46 Dose: 1 unit Insulin Human Lispro (Humalog Low) 0 units SC [facility] PRN Reason: Protocol Last Admin: 12/03/17 12:09 Dose: 1 u Lidocaine HCl (Lidocaine 2% Viscous) 30 ml PO Q2H PRN PRN Reason: Mouth/Throat Pain Last Admin: 12/03/17 09:56 Dose: 30 ml Magnesium Oxide (Mag-Ox) 400 mg PO BID [facility] Last Admin: 12/03/17 09:44 Dose: 400 mg Metoclopramide HCl (Reglan) 5 mg PO ACHS [facility] Last Admin: 12/03/17 12:08 Dose: 5 mg Morphine Sulfate (Morphine Immediate Release Tab) 15 mg PO Q6 PRN PRN Reason: Pain, moderate (4-7) Last Admin: 12/03/17 01:52 Dose: 15 mg Morphine Sulfate (Morphine) 2 mg IVP Q4H PRN PRN Reason: Pain, severe (8-10) Morphine Sulfate (Morphine Extended Release Tab) 45 mg PO Q12 [facility] Last Admin: 12/03/17 09:44 Dose: 45 mg Pantoprazole Sodium (Protonix Ec Tab) 40 mg PO 0600 [facility] Last Admin: 12/03/17 05:41 Dose: 40 mg - Labs Labs: 12/03/17 07:40 12/03/17 07:40 - Constitutional Appears: Non-toxic, Chronically Ill - Head Exam Head Exam: NORMAL INSPECTION - Respiratory Exam Respiratory Exam: Decreased Breath Sounds - Cardiovascular Exam Cardiovascular Exam: +S1, +S2 - GI/Abdominal Exam GI & Abdominal Exam: Soft. absent: Tenderness Assessment and Plan - Assessment and Plan (Free Text) Plan: Assessment S/P sepsis due to right sided HCAP, with neutropenia history of sepsis due to right middle lobe HCAP on top of ESBL Klebsiella and Proteus UTI stage 3 decubitus ulcer history of Systemic viral illness with Influenza and acute bronchitis stage 4 lung cancer history of asymptomatic bacteriuria with VRE in the urine DM HTN depression lower back tumor obesity with BMI 30 Plan completed 7 days of Doxycycline and Merrem - continue to monitor off antibiotics since she is at risk for healthcare-associated infections overall prognosis is poor
[2017-12-05] MEDS: Albuterol-Ipratrop 3 mg / 0.5 (3 ml) UD IH SCH ×5 (01:21→20:25)
[2017-12-05] MEDS: Pantoprazole 40 mg EC Tab PO SCH (05:20)
--- NOTE | 2017-12-05 05:42 | PN ---
Copied To: Rudy Puente MD Attending MD: Rudy Puente MD DATE: 12/05/2017 SUBJECTIVE: The patient is in room 327, bed 2, TCU. Patient has been transferred from the acute site to the TCU for deconditioning. This is a 72-year-old female. Her diagnoses are extensive small cell lung carcinoma status post completion of a 6-cycle of carboplatin-etoposide based chemotherapy status post radiation to the right upper lobe lesion as part of consolidative therapy for extensive small cell lung CA status post radiation to the lower back to the lumbosacral area and right hip for progressive pain related to metastatic disease. She was admitted to the acute side post treatment with failure to thrive, pancytopenia, and neutropenic sepsis, treated successfully, continued Granix, so the white count came up to 6000. Patient received both platelet and blood transfusions. Patient's platelet count was in the low 20,000. She was monitored and when the platelet count went above 28,000 to 30,000, patient was transferred to the TCU for further management and continued monitoring while she was undergoing rehab for deconditioning. Subjectively, patient has been feeling better. Pain is little bit better controlled. I am increasing doses of the narcotic. Patient has had no nausea, vomiting, diarrhea, fevers or chills. Patient has been ambulating with help with the therapist at least twice over the weekend. PHYSICAL EXAMINATION VITAL SIGNS: Stable. T-max is 97.9, pulse is 76, respirations 18, blood pressure is 138/66, pulse ox is 94% on room air. HEENT: Head is normocephalic, atraumatic. Alopecia is secondary to chemotherapy as noted. Conjunctivae pale. Sclerae is anicteric. Pupils are equally reactive to light and accommodation. Exams to the oropharynx reveals no oropharyngeal lesions. Tongue is moist. No ulcerations are noted. NECK: Supple. There is no adenopathy. LUNGS: Reveals clear to percussion and auscultation without any adventitious sounds. CARDIOVASCULAR: Reveals PMI is in the fifth intercostal space, inside the midclavicular line. S1 and S2 are normal. No gallop or murmur is heard. ABDOMEN: Soft, nontender. Liver and spleen are not palpable. No rebound, rigidity or guarding is noted. EXTREMITIES: Reveal no cyanosis, clubbing or edema. Previously noted ecchymosis on the skin is gradually improving. NEUROLOGIC: Reveals higher functions to be normal. No focal deficits are noted. SPINE AND MUSCULOSKELETAL: Reveals no significant trauma to the back at this point in time. Pain appears to be well controlled. GENITOURINARY/RECTAL: Deferred. MEDICATIONS: Reviewed and they are unchanged. They include Tylenol 650 every 4 hours p.r.n., Maalox 30 mL every 4 hours p.r.n. She is on DuoNeb 3 mL every 6 hours, Xanax 0.5 mg b.i.d. and at bedtime, Colace 100 mg b.i.d. She is on a home medication called which she takes once a day. Once a day, she is on insulin coverage. She is on lidocaine viscous 30 mL hour p.r.n., mag oxide 400 mg b.i.d., Reglan 5 mg p.o. before meals and at bedtime, morphine sulfate long-acting 45 mg every 12 hours, morphine sulfate immediate acting 15 mg every 6 hours p.r.n., morphine sulfate 10 mg IV for severe pain, again every 4 hour p.r.n., pantoprazole 40 mg p.o. daily. LABORATORY DATA: Yesterday showed a white count of 10.4, hemoglobin 9.8, hematocrit 30.9, platelet count is 36,000. Sodium is 140, K is 4.3, chloride is 102, CO2 is 29, BUN 13, creatinine 0.5, blood sugar is 170. ASSESSMENT, NOTES AND PLAN: Stage IV extensive small cell lung carcinoma status post radiation, status post chemotherapy, status post neutropenic sepsis, improved; status post treatment for decubitus ulcer; history of systemic viral illness with influenza and acute bronchitis in the past, history of asymptomatic bacteriuria with vancomycin-resistant Enterococcus in the urine in the past, diabetes mellitus, hypertension, depression, lower mid-back pain secondary to tumor. PLAN: We will continue therapy for deconditioning, complete a 7 days of antibiotic with doxycycline and Merrem and now needs to be monitored, off antibiotics. Continue to monitor of C. diff and TMA for appropriate recommendation. As long as the platelet count is holding, we are going to continue expectant observation. Patient's calorie count appears to show that she is eating better than before. I had lengthy discussion with the patient and her son who was visiting her. Plan is to let the patient fully recover and then plan on starting her on maintenance therapy with a drug called Hycamtin. Other options may include assessing the patient for immunotherapy for the drug such as Keytruda or Opdivo that has been showing promise in phase III studies for extensive small cell lung carcinoma. Our goal is to at least give quality of life to the patient which is the patient presented for decision making plan, as long as we can keep the disease under control, we have achieved most of our objective. Time spent with the patient is greater than 45 minutes, out of which more than 50% of the time was spent [id number] contact with the patient discussing with her regarding our treatment plan, future prognosis, and where we proceed from here. This is a medically necessary and appropriate visit for this patient with multiple comorbid medical issues. Rudy Puente MD
[2017-12-05] MEDS: Morphine 15 mg Immediate Release Tab PO PRN ×2 (06:05→14:48)
[2017-12-05 06:47] LABS: BASO # 0.03 K/mm3 (0.0-2.0); BASO % 0.2 % (0.0-3.0); EOS % 0.1 % (1.5-5.0); GRAN # 11.15 (1.4-6.5); GRAN % 84.8 % (50.0-68.0); HEMOGLOBIN 9.3 g/dL (12.0-16.0); LYMPH # 0.6 (1.2-3.4); LYMPH % 4.3 % (22.0-35.0); MEAN CELL VOLUME 101.7 fl (80.0-105.0); MEAN CORPUSCULAR HEMOGLOBIN 31.6 pg (25.0-35.0); MEAN CORPUSCULAR HGB CONC 31.1 g/dl (31.0-37.0); MEAN PLATELET VOLUME 11.2 fl (7.0-11.0); MONO # 1.4 (0.1-0.6); MONO % 10.6 % (1.0-6.0); RBC 2.94 10^6/uL (3.5-6.1); WHITE BLOOD COUNT 13.1 10^3/ul (4.5-11.0)
[2017-12-05] MEDS: Insulin Lispro (humaLOG) LOW Coverage SC SCH ×4 (07:01→21:49)
[2017-12-05 07:13] LABS: ALB/GLOB RATIO 1.2 (1.1-1.8); ALBUMIN 3.5 g/dL (3.0-4.8); ALT/SGPT 75 U/L (7-56); AST/SGOT 56 U/L (14-36); BLOOD UREA NITROGEN 13 mg/dL (7-21); CALCIUM 8.6 mg/dL (8.4-10.5); GFR AFRICAN-AMERICAN > 60; GFR NON-AFRICAN AMERICAN > 60
[2017-12-05 07:26] LABS: PLATELET COUNT 34 10^3/uL (120.0-450.0)
[2017-12-05 08:20] LABS: PLATELET COUNT MANUAL 40 K/mm3 (120-450)
--- NOTE | 2017-12-05 08:51 | PN ---
Copied To: Rudy Puente MD Attending MD: Rudy Puente MD DATE: 12/03/2017 LOCATION: The patient is in room 327, bed 2. PROBLEM: This is a 72-year-old female with extensive small cell lung carcinoma, who was admitted to the acute site status post chemotherapy, failure to thrive, pancytopenia, gradually recovering. Received multiple units of blood transfusion, multiple units of platelet transfusion along with receiving Granix and antibiotics. The patient improved clinically and is now transferred to the TCU for deconditioning. The patient is slowly improving. The white count improving up to 3.8 with an AST greater than 1500. Platelet count is gradually stabilizing in the low 30,000. The patient has had no new episodes of bleeding, ecchymosis, nosebleeds or petechiae or any extensive issues with bleeding either per rectum or in the urine. SUBJECTIVE: The patient is feeling better. She is walking around in the room. She is doing physical therapy at least twice a day without major issues. The patient has been having increasing pain in the back from the therapy, for which long-acting morphine has been switched over to 45 mg every 12 hours. She is getting Xanax on schedule 3 times a day and has been given also every 4-6 hours as needed. The patient has also IV morphine available for episodes of severe pain. Subjectively, the patient, however, has been feeling better. Has no specific issues, fevers, chills, nausea, vomiting, diarrhea or mouth sores. PHYSICAL EXAMINATION: VITAL SIGNS: The patient is afebrile, T-max is 98.4; pulse ox is 98% on room air. HEENT: Head is normocephalic, atraumatic. The patient has alopecia. Conjunctivae pale. Sclerae are anicteric. Pupils are equally reactive to light and accommodation. Examination of the oropharynx reveals no oropharyngeal lesion. Tongue is moist. No ulcerations are noted. NECK: Supple. There is no adenopathy. No jugular venous distention noted. LUNGS: Clear to percussion and auscultation. HEART: Examination of the cardiovascular system reveals PMI to be in the fifth intercostal space inside the midclavicular line. S1 and S2 are normal. No gallop or murmur is heard. ABDOMEN: Soft, nontender. Bowel sounds are present. No rebound, rigidity or guarding is noted. EXTREMITIES: Reveals no cyanosis, clubbing or edema. Higher functions are normal. No focal deficits are noted. Plantars are flexor. GENITOURINARY: Deferred. RECTAL: Deferred. SKIN: Reveals ecchymosis, which appeared to be waning at this time. No new skin lesions are noted. MEDICATIONS: The patient's medications were reviewed. The patient is on Tylenol 650 every 4 hours p.r.n., she is on Maalox Plus 30 mL every 2 hours p.r.n., she is on DuoNeb 3 mL every 6 hours for nebulizer treatment, she is on Colace 100 b.i.d., she is taking generic equivalent of an antidepressant t.i.d., she is on insulin lispro as needed for coverage. She is on lidocaine viscous swish and swallow p.r.n. for throat pain, mag oxide 400 b.i.d., Reglan 5 mg p.o. before meals and at bedtime, morphine 45 mg every 12 hours along with morphine sulfate 15 mg every 6 hours p.r.n., pantoprazole 40 mg p.o. daily. LABORATORY DATA: Reviewed. White count is 10.4, hemoglobin 9.8, hematocrit 30.8, platelet count is 36,000. ANC on the current value is 8.6 at this point. The patient's counts are gradually improving. She is recovering from the side effects of both chemotherapy that was given last week and also the side effects of radiation, which also completed recently in the last 10 days. ASSESSMENT AND PLAN: The patient has stage IV extensive small cell lung carcinoma, status post 6 cycles of carboplatin and etoposide, status post radiation to the lower back, completed radiation to the right hilum. Currently, recovering from the treatment. Plan is to assess the patient again and see about maintaining the patient on drug such as Hycamtin or assess the patient for extensive small cell lung carcinoma directed therapy maybe of value in progressing the survival. Routine post exam instructions have been given to the patient and discussed in detail my findings with the patient and the son and the plans to keep her on Hycamtin for now as it crosses the blood brain barrier administer as an outpatient probably on a weekly basis. Rudy Puente MD
[2017-12-05] MEDS: PRISTIQ 50 MG PO SCH ×3 (09:37→17:10)
[2017-12-05] MEDS: GRANIX SC SCH (09:37)
[2017-12-05] MEDS: Morphine 15 mg SR Tab PO SCH ×2 (09:38→21:01)
[2017-12-05] MEDS: Magnesium Oxide 400 mg Tab UD PO SCH ×2 (09:38→17:11)
--- NOTE | 2017-12-05 13:13 | CP.PCM.PN ---
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 Patient put on neutropenic precautions, given daily granix, given plts and prbcs transfusion. Patient transferred to TCU once blood counts stabilized, for further rehab. Patient seen and examined in TCU, sitting up in chair. No acute events overnight. Patient states that she still feels weak, however has been ambulating with Physical therapy, did 2 round of the floor yesterday. Still needs some more time to ambulate by herself. Reports that her is appetite is improved, ate most of her breakfast this morning. Reports pain 1-2. states that pain meds are helping her. Denies fever, chills, nausea, vomiting, hemaotchezia , petechiae, mucosal bleeding, melena, abdominal pain, leg swelling. Objective - Vital Signs/Intake and Output Vital Signs (last 24 hours): Temp Pulse Resp BP Pulse Ox 98.2 F 85 19 133/64 90 L 12/04/17 16:00 12/04/17 16:00 12/04/17 16:00 12/04/17 16:00 12/04/17 16:00 - Medications Medications: Current Medications Acetaminophen (Tylenol 325mg Tab) 650 mg PO Q4H PRN PRN Reason: Fever >100.5 F Al Hydrox/Mg Hydrox/Simethicone (Maalox Plus 30 Ml) 30 ml PO Q2H PRN PRN Reason: Mouth/Throat Pain Albuterol/Ipratropium (Duoneb 3 Mg/0.5 Mg (3 Ml) Ud) 3 ml IH [id number] [facility] Last Admin: 12/05/17 07:45 Dose: 3 ml Alprazolam (Xanax) 0.5 mg PO HS [facility] PRN Reason: Protocol Last Admin: 12/04/17 21:36 Dose: 0.5 mg Alprazolam (Xanax) 0.5 mg PO BID [facility] PRN Reason: Protocol Last Admin: 12/05/17 09:39 Dose: 0.5 mg Docusate Sodium (Colace) 100 mg PO BID [facility] Last Admin: 12/05/17 09:37 Dose: 100 mg Home Med (Home Med) 1 unit PO TID [facility] Last Admin: 12/05/17 09:37 Dose: 1 unit Home Med (Home Med) 1 unit SC DAILY [facility] Last Admin: 12/05/17 09:37 Dose: 1 unit Insulin Human Lispro (Humalog Low) 0 units SC [facility] PRN Reason: Protocol Last Admin: 12/05/17 12:16 Dose: 1 u Lidocaine HCl (Lidocaine 2% Viscous) 30 ml PO Q2H PRN PRN Reason: Mouth/Throat Pain Last Admin: 12/03/17 09:56 Dose: 30 ml Magnesium Oxide (Mag-Ox) 400 mg PO BID [facility] Last Admin: 12/05/17 09:38 Dose: 400 mg Metoclopramide HCl (Reglan) 5 mg PO [facility] Last Admin: 12/05/17 12:16 Dose: 5 mg Morphine Sulfate (Morphine Immediate Release Tab) 15 mg PO Q6 PRN PRN Reason: Pain, moderate (4-7) Last Admin: 12/05/17 06:05 Dose: 15 mg Morphine Sulfate (Morphine) 2 mg IVP Q4H PRN PRN Reason: Pain, severe (8-10) Morphine Sulfate (Morphine Extended Release Tab) 45 mg PO Q12 [facility] Last Admin: 12/05/17 09:38 Dose: 45 mg Pantoprazole Sodium (Protonix Ec Tab) 40 mg PO 0600 [facility] Last Admin: 12/05/17 05:20 Dose: 40 mg - Labs Labs: 12/05/17 06:30 12/05/17 06:30 - Additional Findings Additional findings: - Constitutional Appears: Non-toxic, No Acute Distress - Head Exam Head Exam: ATRAUMATIC, NORMOCEPHALIC - Eye Exam Eye Exam: EOMI, PERRL. absent: Conjunctival injection, Nystagmus, Scleral icterus Pupil Exam: NORMAL ACCOMODATION, PERRL. absent: Fixed, Irregular, Miosis, Unequal - ENT Exam ENT Exam: Mucous Membranes Moist - Neck Exam Neck exam: Positive for: Full Rom, Normal Inspection - Respiratory Exam Respiratory Exam: Clear to Auscultation Bilateral, NORMAL BREATHING PATTERN. absent: Accessory Muscle Use, Chest Wall Tenderness, Rhonchi, Wheezes, Stridor Additional comments: + right sided chest port, c, d, i - Cardiovascular Exam Cardiovascular Exam: RRR, +S1, +S2. absent: Systolic Murmur - GI/Abdominal Exam GI & Abdominal Exam: Normal Bowel Sounds, Soft. absent: Distended, Firm, Guarding, Organomegaly, Rebound, Tenderness - Extremities Exam Extremities exam: Positive for: normal inspection. 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 Patient put on neutropenic precautions, given daily granix, given plts and prbcs transfusion. 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 chronic infiltrative changes in left lung. Partial collapse, consolidative changes in RUL - procal 1.14 high on admission - ID consulted. appreciate recs. s/p doxy and merrem for HCAP. - monitor Right sided cp: likely musculoskeletal, ruled out ACS, PE - resolved - trop neg x1, initial EKG neg - CTA neg for PE - US LE shows no DVT - pain management Hypokalemia: - resolved - monitor Anemia: - macrocytic MCV 103.8 - Vitamin B12, folate normal - Hgb 9.3 today (prev 10.4). s/p 2 units prbcs 8/ - monitor Hx of Stage IV SCC of lung with mets: - pain management: morphine PO ER, IR. added IV prn morphine sulfate - s/p chemo Hx of COPD: - nikunj - Dr Eastman on board. Appreciate recs. Hx of DM: - HgbA1c 7.2 - ISS low Palliative consult called. Patient wants full code. Case seen and discussed with Dr Puente.
--- NOTE | 2017-12-05 20:59 | CP.PCM.PN ---
Subjective - Date & Time of Evaluation Date of Evaluation: 12/05/17 Time of Evaluation: 12:15 - Subjective Subjective: No fevers, not in distress, no nausea. Objective - Vital Signs/Intake and Output Vital Signs (last 24 hours): Temp Pulse Resp BP Pulse Ox 98.2 F 85 19 133/64 90 L 12/04/17 16:00 12/04/17 16:00 12/04/17 16:00 12/04/17 16:00 12/04/17 16:00 - Medications Medications: Current Medications Acetaminophen (Tylenol 325mg Tab) 650 mg PO Q4H PRN PRN Reason: Fever >100.5 F Al Hydrox/Mg Hydrox/Simethicone (Maalox Plus 30 Ml) 30 ml PO Q2H PRN PRN Reason: Mouth/Throat Pain Albuterol/Ipratropium (Duoneb 3 Mg/0.5 Mg (3 Ml) Ud) 3 ml IH [id number] [facility] Last Admin: 12/04/17 13:49 Dose: 3 ml Alprazolam (Xanax) 0.5 mg PO HS [facility] PRN Reason: Protocol Last Admin: 12/03/17 21:36 Dose: 0.5 mg Alprazolam (Xanax) 0.5 mg PO BID [facility] PRN Reason: Protocol Last Admin: 12/04/17 10:38 Dose: 0.5 mg Docusate Sodium (Colace) 100 mg PO BID [facility] Last Admin: 12/04/17 10:35 Dose: 100 mg Home Med (Home Med) 1 unit PO TID [facility] Last Admin: 12/04/17 13:10 Dose: 1 unit Home Med (Home Med) 1 unit SC DAILY [facility] Last Admin: 12/04/17 10:39 Dose: 1 unit Insulin Human Lispro (Humalog Low) 0 units SC ACHS [facility] PRN Reason: Protocol Last Admin: 12/04/17 12:56 Dose: 2 u Lidocaine HCl (Lidocaine 2% Viscous) 30 ml PO Q2H PRN PRN Reason: Mouth/Throat Pain Last Admin: 12/03/17 09:56 Dose: 30 ml Magnesium Oxide (Mag-Ox) 400 mg PO BID [facility] Last Admin: 12/04/17 10:36 Dose: 400 mg Metoclopramide HCl (Reglan) 5 mg PO ACHS [facility] Last Admin: 12/04/17 12:56 Dose: 5 mg Morphine Sulfate (Morphine Immediate Release Tab) 15 mg PO Q6 PRN PRN Reason: Pain, moderate (4-7) Last Admin: 12/04/17 16:01 Dose: 15 mg Morphine Sulfate (Morphine) 2 mg IVP Q4H PRN PRN Reason: Pain, severe (8-10) Morphine Sulfate (Morphine Extended Release Tab) 45 mg PO Q12 [facility] Last Admin: 12/04/17 10:37 Dose: 45 mg Pantoprazole Sodium (Protonix Ec Tab) 40 mg PO 0600 [facility] Last Admin: 12/04/17 05:20 Dose: 40 mg - Labs Labs: 12/03/17 07:40 12/03/17 07:40 - Constitutional Appears: Chronically Ill - Head Exam Head Exam: NORMAL INSPECTION - Neck Exam Neck Exam: absent: Meningismus - Respiratory Exam Respiratory Exam: Decreased Breath Sounds - Cardiovascular Exam Cardiovascular Exam: +S1, +S2 - GI/Abdominal Exam GI & Abdominal Exam: Soft. absent: Tenderness Assessment and Plan - Assessment and Plan (Free Text) Plan: Assessment S/P sepsis due to right sided HCAP, with neutropenia history of sepsis due to right middle lobe HCAP on top of ESBL Klebsiella and Proteus UTI stage 3 decubitus ulcer history of Systemic viral illness with Influenza and acute bronchitis stage 4 lung cancer history of asymptomatic bacteriuria with VRE in the urine DM HTN depression lower back tumor obesity with BMI 30 Plan completed 7 days of Doxycycline and Merrem - continue to monitor off antibiotics since she is at risk for nosocomial infections overall prognosis is poor
[2017-12-06] MEDS: Albuterol-Ipratrop 3 mg / 0.5 (3 ml) UD IH SCH ×4 (01:47→20:31)
[2017-12-06] MEDS: Pantoprazole 40 mg EC Tab PO SCH (05:42)
[2017-12-06] MEDS: Insulin Lispro (humaLOG) LOW Coverage SC SCH ×4 (06:32→22:05)
[2017-12-06] MEDS: GRANIX SC SCH (10:00)
[2017-12-06] MEDS: PRISTIQ 50 MG PO SCH ×3 (10:09→17:36)
[2017-12-06] MEDS: Magnesium Oxide 400 mg Tab UD PO SCH ×2 (10:10→17:39)
[2017-12-06] MEDS: Morphine 15 mg SR Tab PO SCH ×2 (10:13→21:20)
[2017-12-06] MEDS: Morphine 15 mg Immediate Release Tab PO PRN (14:10)
--- NOTE | 2017-12-06 14:16 | CP.PCM.PN ---
Subjective - Date & Time of Evaluation Date of Evaluation: 12/06/17 Time of Evaluation: 09:45 - Subjective Subjective: Comfortable, walking around her bed without issues, no fevers. Objective - Vital Signs/Intake and Output Vital Signs (last 24 hours): Temp Pulse Resp BP Pulse Ox 97.9 F 96 H 16 127/65 92 L 12/05/17 16:00 12/05/17 16:00 12/05/17 16:00 12/05/17 16:00 12/05/17 16:00 - Medications Medications: Current Medications Acetaminophen (Tylenol 325mg Tab) 650 mg PO Q4H PRN PRN Reason: Fever >100.5 F Al Hydrox/Mg Hydrox/Simethicone (Maalox Plus 30 Ml) 30 ml PO Q2H PRN PRN Reason: Mouth/Throat Pain Albuterol/Ipratropium (Duoneb 3 Mg/0.5 Mg (3 Ml) Ud) 3 ml IH [id number] [facility] Last Admin: 12/05/17 14:09 Dose: 3 ml Alprazolam (Xanax) 0.5 mg PO HS [facility] PRN Reason: Protocol Last Admin: 12/04/17 21:36 Dose: 0.5 mg Alprazolam (Xanax) 0.5 mg PO BID [facility] PRN Reason: Protocol Last Admin: 12/05/17 17:11 Dose: 0.5 mg Docusate Sodium (Colace) 100 mg PO BID [facility] Last Admin: 12/05/17 17:09 Dose: 100 mg Home Med (Home Med) 1 unit PO TID [facility] Last Admin: 12/05/17 17:10 Dose: 1 unit Home Med (Home Med) 1 unit SC DAILY [facility] Last Admin: 12/05/17 09:37 Dose: 1 unit Insulin Human Lispro (Humalog Low) 0 units SC ACHS [facility] PRN Reason: Protocol Last Admin: 12/05/17 17:12 Dose: 1 u Lidocaine HCl (Lidocaine 2% Viscous) 30 ml PO Q2H PRN PRN Reason: Mouth/Throat Pain Last Admin: 12/03/17 09:56 Dose: 30 ml Magnesium Oxide (Mag-Ox) 400 mg PO BID [facility] Last Admin: 12/05/17 17:11 Dose: 400 mg Metoclopramide HCl (Reglan) 5 mg PO ACHS [facility] Last Admin: 12/05/17 17:09 Dose: 5 mg Morphine Sulfate (Morphine Immediate Release Tab) 15 mg PO Q6 PRN PRN Reason: Pain, moderate (4-7) Last Admin: 12/05/17 14:48 Dose: 15 mg Morphine Sulfate (Morphine) 2 mg IVP Q4H PRN PRN Reason: Pain, severe (8-10) Last Admin: 12/05/17 17:14 Dose: 2 mg Morphine Sulfate (Morphine Extended Release Tab) 45 mg PO Q12 [facility] Last Admin: 12/05/17 09:38 Dose: 45 mg Pantoprazole Sodium (Protonix Ec Tab) 40 mg PO 0600 [facility] Last Admin: 12/05/17 05:20 Dose: 40 mg - Labs Labs: 12/05/17 06:30 12/05/17 06:30 - Constitutional Appears: Chronically Ill - Head Exam Head Exam: NORMAL INSPECTION - Respiratory Exam Respiratory Exam: Decreased Breath Sounds - Cardiovascular Exam Cardiovascular Exam: +S1, +S2 - GI/Abdominal Exam GI & Abdominal Exam: Soft. absent: Tenderness Assessment and Plan - Assessment and Plan (Free Text) Plan: Assessment S/P sepsis due to right sided HCAP, S/P neutropenia history of sepsis due to right middle lobe HCAP on top of ESBL Klebsiella and Proteus UTI stage 3 decubitus ulcer history of Systemic viral illness with Influenza and acute bronchitis stage 4 lung cancer history of asymptomatic bacteriuria with VRE in the urine DM HTN depression lower back tumor obesity with BMI 30 Plan completed 7 days of Doxycycline and Merrem - continue to monitor off antibiotics since she is at risk for hospital-acquired infections overall prognosis is poor
--- NOTE | 2017-12-06 21:50 | CP.PCM.PN ---
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 Patient put on neutropenic precautions, given daily granix, given plts and prbcs transfusion. Patient transferred to TCU once blood counts stabilized, for further rehab. Patient seen and examined in TCU, sitting up in chair. No acute events overnight. Patient states that she has been able to walk with a walker in the hallway. Still reports fatigue. Reports pain of 3-4/10. States that she had a BM this AM. Denies mouth sores, fever, chills, nausea, vomiting, hemaotchezia, petechiae, mucosal bleeding, melena, abdominal pain, leg swelling. Objective - Vital Signs/Intake and Output Vital Signs (last 24 hours): Temp Pulse Resp BP Pulse Ox 98.1 F 86 18 151/86 H 94 L 12/06/17 16:00 12/06/17 16:00 12/06/17 16:00 12/06/17 16:00 12/06/17 16:00 - Medications Medications: Current Medications Acetaminophen (Tylenol 325mg Tab) 650 mg PO Q4H PRN PRN Reason: Fever >100.5 F Al Hydrox/Mg Hydrox/Simethicone (Maalox Plus 30 Ml) 30 ml PO Q2H PRN PRN Reason: Mouth/Throat Pain Albuterol/Ipratropium (Duoneb 3 Mg/0.5 Mg (3 Ml) Ud) 3 ml IH [id number] [facility] Last Admin: 12/06/17 20:31 Dose: 3 ml Alprazolam (Xanax) 0.5 mg PO HS [facility] PRN Reason: Protocol Last Admin: 12/06/17 21:22 Dose: 0.5 mg Alprazolam (Xanax) 0.5 mg PO BID [facility] PRN Reason: Protocol Last Admin: 12/06/17 17:43 Dose: 0.5 mg Docusate Sodium (Colace) 100 mg PO BID [facility] Last Admin: 12/06/17 17:36 Dose: 100 mg Home Med (Home Med) 1 unit PO TID [facility] Last Admin: 12/06/17 17:36 Dose: 1 unit Insulin Human Lispro (Humalog Low) 0 units SC ACHS [facility] PRN Reason: Protocol Last Admin: 12/06/17 17:37 Dose: 1 u Lidocaine HCl (Lidocaine 2% Viscous) 30 ml PO Q2H PRN PRN Reason: Mouth/Throat Pain Last Admin: 12/03/17 09:56 Dose: 30 ml Magnesium Oxide (Mag-Ox) 400 mg PO BID [facility] Last Admin: 12/06/17 17:39 Dose: 400 mg Metoclopramide HCl (Reglan) 5 mg PO 0630,1200,1630,2200 [facility] PRN Reason: Protocol Last Admin: 12/06/17 21:21 Dose: 5 mg Morphine Sulfate (Morphine Immediate Release Tab) 15 mg PO Q6 PRN PRN Reason: Pain, moderate (4-7) Last Admin: 12/06/17 14:10 Dose: 15 mg Morphine Sulfate (Morphine) 2 mg IVP Q4H PRN; Protocol PRN Reason: Pain, severe (8-10) Morphine Sulfate (Morphine Extended Release Tab) 45 mg PO Q12 [facility] PRN Reason: Protocol Last Admin: 12/06/17 21:20 Dose: 45 mg Pantoprazole Sodium (Protonix Ec Tab) 40 mg PO 0600 [facility] Last Admin: 12/06/17 05:42 Dose: 40 mg - Labs Labs: 12/05/17 06:30 12/05/17 06:30 - Additional Findings Additional findings: - Constitutional Appears: Non-toxic, No Acute Distress - Head Exam Head Exam: ATRAUMATIC, NORMOCEPHALIC - Eye Exam Eye Exam: EOMI, PERRL. absent: Conjunctival injection, Nystagmus, Scleral icterus Pupil Exam: NORMAL ACCOMODATION, PERRL. absent: Fixed, Irregular, Miosis, Unequal - ENT Exam ENT Exam: Mucous Membranes Moist - Neck Exam Neck exam: Positive for: Full Rom, Normal Inspection - Respiratory Exam Respiratory Exam: Clear to Auscultation Bilateral, NORMAL BREATHING PATTERN. absent: Accessory Muscle Use, Chest Wall Tenderness, Rhonchi, Wheezes, Stridor Additional comments: + right sided chest port, c, d, i - Cardiovascular Exam Cardiovascular Exam: RRR, +S1, +S2. absent: Systolic Murmur - GI/Abdominal Exam GI & Abdominal Exam: Normal Bowel Sounds, Soft. absent: Distended, Firm, Guarding, Organomegaly, Rebound, Tenderness - Extremities Exam Extremities exam: Positive for: normal inspection. 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 Patient put on neutropenic precautions, given daily granix, given plts and prbcs transfusion. Patient transferred to TCU once blood counts stabilized, for further rehab and management: Persistent Thrombocytopenia: - manual plt count 40 yesterday - s/p 1 unit platelets 11/23, 11/26, 11/29 - discussed with pharmacy for N plate to be given inpatient. Could not get it approved from insurance. 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 chronic infiltrative changes in left lung. Partial collapse, consolidative changes in RUL - procal 1.14 high on admission - ID consulted. appreciate recs. s/p doxy and merrem for HCAP. - monitor Right sided cp: likely musculoskeletal, ruled out ACS, PE - resolved - trop neg x1, initial EKG neg - CTA neg for PE - US LE shows no DVT - pain management Hypokalemia: - resolved - monitor Anemia: - macrocytic MCV 103.8 - Vitamin B12, folate normal - Hgb 9.3 yesterday (prev 10.4). s/p 2 units prbcs 11/24 - monitor Hx of Stage IV SCC of lung with mets: - pain management: morphine PO ER, IR. added IV prn morphine sulfate - s/p chemo Hx of COPD: - nikunj - Dr Eastman on board. Appreciate recs. Hx of DM: - HgbA1c 7.2 - ISS low Palliative consult called. Patient wants full code. Case seen and discussed with Dr Puente.
[2017-12-06] MEDS ORDERED: Morphine 30 mg SR Tab PO SCH (22:00)
[2017-12-07] MEDS: Pantoprazole 40 mg EC Tab PO SCH (05:30)
[2017-12-07] MEDS: Insulin Lispro (humaLOG) LOW Coverage SC SCH ×4 (06:41→21:58)
[2017-12-07 07:04] LABS: BASO # 0.04 K/mm3 (0.0-2.0); BASO % 0.4 % (0.0-3.0); EOS % 0.1 % (1.5-5.0); GRAN # 6.74 (1.4-6.5); GRAN % 73.2 % (50.0-68.0); HEMOGLOBIN 9.7 g/dL (12.0-16.0); LYMPH # 0.6 (1.2-3.4); LYMPH % 6.6 % (22.0-35.0); MEAN CELL VOLUME 101.3 fl (80.0-105.0); MEAN CORPUSCULAR HEMOGLOBIN 32.7 pg (25.0-35.0); MEAN CORPUSCULAR HGB CONC 32.2 g/dl (31.0-37.0); MEAN PLATELET VOLUME 11.1 fl (7.0-11.0); MONO # 1.8 (0.1-0.6); MONO % 19.7 % (1.0-6.0); RBC 2.97 10^6/uL (3.5-6.1); RED CELL DISTRIBUTION WIDTH 19.8 % (11.5-14.5); WHITE BLOOD COUNT 9.2 10^3/ul (4.5-11.0)
[2017-12-07 07:21] LABS: PLATELET COUNT 44 10^3/uL (120.0-450.0)
[2017-12-07] MEDS: Albuterol-Ipratrop 3 mg / 0.5 (3 ml) UD IH SCH ×3 (07:24→20:57)
[2017-12-07 07:29] LABS: ALB/GLOB RATIO 1.2 (1.1-1.8); ALBUMIN 3.5 g/dL (3.0-4.8); ALT/SGPT 75 U/L (7-56); AST/SGOT 71 U/L (14-36); BLOOD UREA NITROGEN 12 mg/dL (7-21); CALCIUM 8.3 mg/dL (8.4-10.5); GFR AFRICAN-AMERICAN > 60; GFR NON-AFRICAN AMERICAN > 60
[2017-12-07 07:37] LABS: PLATELET ESTIMATE LOW (NORMAL)
[2017-12-07 09:12] LABS: PLATELET COUNT MANUAL 51 K/mm3 (120-450)
--- NOTE | 2017-12-07 09:18 | PN ---
Copied To: Jorge Luis Hernandez MD Attending MD: Jorge Luis Hernandez MD DATE: 12/07/2017 SUBJECTIVE: The patient is in bed in no acute distress. She was seen earlier today in room 327. No fevers and no chills. No nausea. PHYSICAL EXAMINATION: VITAL SIGNS: Temperature of 98, blood pressure is 150/80, respiratory rate of 20. HEENT: Unremarkable. NECK: Supple. LUNGS: Decreased breath sounds. HEART: Normal S1, S2. ABDOMEN: Soft, nontender. LABORATORY DATA: Laboratory examination reveals a white count of 9.2, hemoglobin of 9.7, platelets of 44. Chemistries revealed the patient's creatinine is 0.5. ASSESSMENT AND PLAN: This is a 72-year-old female status post sepsis due to right-sided healthcare-associated pneumonia, status post neutropenia, history of sepsis due to right middle lobe healthcare-associated pneumonia on top of extended-spectrum beta-lactamase Klebsiella and Proteus urinary tract infection, stage III decubitus ulcer and completed 7 days of doxycycline and meropenem, currently off of antibiotics. The patient is at risk for developing nosocomial infections. Review of orders confirms the patient is off of antibiotics. We will follow closely with you. Jorge Luis Hernandez MD
[2017-12-07] MEDS: PRISTIQ 50 MG PO SCH ×3 (09:19→17:05)
[2017-12-07] MEDS: Magnesium Oxide 400 mg Tab UD PO SCH ×2 (09:20→17:06)
[2017-12-07] MEDS: Morphine 15 mg SR Tab PO SCH ×2 (09:21→21:41)
[2017-12-07] MEDS ORDERED: Potassium Chloride 20 mEq ER Tab PO STA (09:45)
--- NOTE | 2017-12-07 11:45 | CP.PCM.PN ---
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 Patient put on neutropenic precautions, given daily granix, given plts and prbcs transfusion. Patient transferred to TCU once blood counts stabilized, for further rehab. Patient seen and examined at bedside in TCU. No acute events overnight. Patient states that he feels well, reports mild weakness. States that his appetite is good, eating well including home made food. States that he is having daily BM, had one this AM. Reports mild cough with white sputum. q4 hours. Denies pain, mouth sores, fever, chills, nausea, vomiting, hemoptysis, hemaotchezia, petechiae, mucosal bleeding, melena, abdominal pain, leg swelling. Objective - Vital Signs/Intake and Output Vital Signs (last 24 hours): Temp Pulse Resp BP Pulse Ox 97.9 F 86 18 163/77 H 95 12/07/17 10:00 12/07/17 10:00 12/07/17 10:00 12/07/17 10:00 12/07/17 10:00 - Medications Medications: Current Medications Acetaminophen (Tylenol 325mg Tab) 650 mg PO Q4H PRN PRN Reason: Fever >100.5 F Al Hydrox/Mg Hydrox/Simethicone (Maalox Plus 30 Ml) 30 ml PO Q2H PRN PRN Reason: Mouth/Throat Pain Albuterol/Ipratropium (Duoneb 3 Mg/0.5 Mg (3 Ml) Ud) 3 ml IH [id number] [facility] Last Admin: 12/07/17 07:24 Dose: 3 ml Alprazolam (Xanax) 0.5 mg PO HS [facility] PRN Reason: Protocol Last Admin: 12/06/17 21:22 Dose: 0.5 mg Alprazolam (Xanax) 0.5 mg PO BID [facility] PRN Reason: Protocol Last Admin: 12/07/17 09:18 Dose: 0.5 mg Docusate Sodium (Colace) 100 mg PO BID [facility] Last Admin: 12/07/17 09:19 Dose: 100 mg Home Med (Home Med) 1 unit PO TID [facility] Last Admin: 12/07/17 09:19 Dose: 1 unit Insulin Human Lispro (Humalog Low) 0 units SC ACHS [facility] PRN Reason: Protocol Last Admin: 12/07/17 06:41 Dose: 1 u Lidocaine HCl (Lidocaine 2% Viscous) 30 ml PO Q2H PRN PRN Reason: Mouth/Throat Pain Last Admin: 12/03/17 09:56 Dose: 30 ml Magnesium Oxide (Mag-Ox) 400 mg PO BID [facility] Last Admin: 12/07/17 09:20 Dose: 400 mg Metoclopramide HCl (Reglan) 5 mg PO 0630,1200,1630,2200 [facility] PRN Reason: Protocol Last Admin: 12/07/17 05:30 Dose: 5 mg Morphine Sulfate (Morphine Immediate Release Tab) 15 mg PO Q6 PRN PRN Reason: Pain, moderate (4-7) Last Admin: 12/06/17 14:10 Dose: 15 mg Morphine Sulfate (Morphine) 2 mg IVP Q4H PRN; Protocol PRN Reason: Pain, severe (8-10) Morphine Sulfate (Morphine Extended Release Tab) 45 mg PO Q12 [facility] PRN Reason: Protocol Last Admin: 12/07/17 09:21 Dose: 45 mg Pantoprazole Sodium (Protonix Ec Tab) 40 mg PO 0600 [facility] Last Admin: 12/07/17 05:30 Dose: 40 mg - Labs Labs: 12/07/17 06:40 12/07/17 06:40 - Additional Findings Additional findings: - Constitutional Appears: Older Than Stated Age, Chronically Ill - Head Exam Head Exam: ATRAUMATIC, NORMOCEPHALIC - Eye Exam Eye Exam: EOMI, PERRL. absent: Conjunctival injection, Nystagmus, Scleral icterus Pupil Exam: NORMAL ACCOMODATION, PERRL. absent: Miosis, Mydriatic, Unequal - ENT Exam ENT Exam: Mucous Membranes Moist - Neck Exam Neck Exam: Full ROM - Respiratory Exam Respiratory Exam: Decreased Breath Sounds - Cardiovascular Exam Cardiovascular Exam: RRR, +S1, +S2. absent: Murmur right sided chest port in place - GI/Abdominal Exam GI & Abdominal Exam: Soft, Normal Bowel Sounds. absent: Guarding, Rigid, Tenderness, Mass, Organomegaly, Rebound - Extremities Exam Extremities Exam: Normal Inspection. absent: Calf Tenderness, Pedal Edema - Back Exam Back Exam: NORMAL INSPECTION - Neurological Exam Neurological Exam: Alert, Awake, Oriented x3 - Psychiatric Exam Psychiatric exam: Normal Affect, Normal Mood - Skin Skin Exam: Dry, Normal Color, Warm Assessment and Plan - Assessment and Plan (Free Text) Assessment: 77 year old male with PMH gastric ulcer, gastritis, admitted for RLL pneumonia, found to have small cell lung cancer with extensive mediastinal and hilar adenopathy and lytic lesions at T7, other vertebral bodies and liver mets, s/p radiation treatments with Dr Goyal and 3 sessions of chemotherapy. Patient transferred to TCU for rehab. 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 - c/w Megace - pathology report of hilar mass 11/22 showed small cell lung carcinoma - On eliquis 5 mg BID and sotalol for afib. as per cardio and primary team - completed 3/3 chemotherapy sessions with carboplatin and etoposide, last session 12/01 - Will need home oxygen - Abd US showed increased echogenicity of liver parenchyma, 2 separate hypoechoic lesions. 2x1.3 cm in diameter. fatty infiltration - transaminitis improving - Give Neupogen 400 mg sq daily, Day 6. May extend to 10-14 days, if patient wbc count remains low. - monitor daily cbc Case discussed with Dr Puente.
--- NOTE | 2017-12-07 12:25 | CP.PCM.PN ---
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 Patient put on neutropenic precautions, given daily granix, given plts and prbcs transfusion. Patient transferred to TCU once blood counts stabilized, for further rehab. Patient seen and examined in TCU, sitting up in chair. No acute events overnight. Patient states that she has been able to walk with a walker in the hallway. Still reports fatigue. Denies pain this AM. States that she had a BM this AM. Denies mouth sores, fever, chills, nausea, vomiting, hemaotchezia, petechiae, mucosal bleeding, melena, abdominal pain, leg swelling. Objective - Vital Signs/Intake and Output Vital Signs (last 24 hours): Temp Pulse Resp BP Pulse Ox 97.9 F 86 18 163/77 H 95 12/07/17 10:00 12/07/17 10:00 12/07/17 10:00 12/07/17 10:00 12/07/17 10:00 - Medications Medications: Current Medications Acetaminophen (Tylenol 325mg Tab) 650 mg PO Q4H PRN PRN Reason: Fever >100.5 F Al Hydrox/Mg Hydrox/Simethicone (Maalox Plus 30 Ml) 30 ml PO Q2H PRN PRN Reason: Mouth/Throat Pain Albuterol/Ipratropium (Duoneb 3 Mg/0.5 Mg (3 Ml) Ud) 3 ml IH [id number] [facility] Last Admin: 12/07/17 07:24 Dose: 3 ml Alprazolam (Xanax) 0.5 mg PO HS [facility] PRN Reason: Protocol Last Admin: 12/06/17 21:22 Dose: 0.5 mg Alprazolam (Xanax) 0.5 mg PO BID [facility] PRN Reason: Protocol Last Admin: 12/07/17 09:18 Dose: 0.5 mg Docusate Sodium (Colace) 100 mg PO BID [facility] Last Admin: 12/07/17 09:19 Dose: 100 mg Home Med (Home Med) 1 unit PO TID [facility] Last Admin: 12/07/17 09:19 Dose: 1 unit Insulin Human Lispro (Humalog Low) 0 units SC ACHS [facility] PRN Reason: Protocol Last Admin: 12/07/17 12:10 Dose: 2 u Lidocaine HCl (Lidocaine 2% Viscous) 30 ml PO Q2H PRN PRN Reason: Mouth/Throat Pain Last Admin: 12/03/17 09:56 Dose: 30 ml Magnesium Oxide (Mag-Ox) 400 mg PO BID [facility] Last Admin: 12/07/17 09:20 Dose: 400 mg Metoclopramide HCl (Reglan) 5 mg PO 0630,1200,1630,2200 [facility] PRN Reason: Protocol Last Admin: 12/07/17 12:15 Dose: 5 mg Morphine Sulfate (Morphine Immediate Release Tab) 15 mg PO Q6 PRN PRN Reason: Pain, moderate (4-7) Last Admin: 12/06/17 14:10 Dose: 15 mg Morphine Sulfate (Morphine) 2 mg IVP Q4H PRN; Protocol PRN Reason: Pain, severe (8-10) Morphine Sulfate (Morphine Extended Release Tab) 45 mg PO Q12 [facility] PRN Reason: Protocol Last Admin: 12/07/17 09:21 Dose: 45 mg Pantoprazole Sodium (Protonix Ec Tab) 40 mg PO 0600 [facility] Last Admin: 12/07/17 05:30 Dose: 40 mg - Labs Labs: 12/07/17 06:40 12/07/17 06:40 - Additional Findings Additional findings: - Constitutional Appears: Non-toxic, No Acute Distress - Head Exam Head Exam: ATRAUMATIC, NORMOCEPHALIC - Eye Exam Eye Exam: EOMI, PERRL. absent: Conjunctival injection, Nystagmus, Scleral icterus Pupil Exam: NORMAL ACCOMODATION, PERRL. absent: Fixed, Irregular, Miosis, Unequal - ENT Exam ENT Exam: Mucous Membranes Moist - Neck Exam Neck exam: Positive for: Full Rom, Normal Inspection - Respiratory Exam Respiratory Exam: Clear to Auscultation Bilateral, NORMAL BREATHING PATTERN. absent: Accessory Muscle Use, Chest Wall Tenderness, Rhonchi, Wheezes, Stridor Additional comments: + right sided chest port, c, d, i - Cardiovascular Exam Cardiovascular Exam: RRR, +S1, +S2. absent: Systolic Murmur - GI/Abdominal Exam GI & Abdominal Exam: Normal Bowel Sounds, Soft. absent: Distended, Firm, Guarding, Organomegaly, Rebound, Tenderness - Extremities Exam Extremities exam: Positive for: normal inspection. 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 Patient put on neutropenic precautions, given daily granix, given plts and prbcs transfusion. Patient transferred to TCU once blood counts stabilized, for further rehab and management: Persistent Thrombocytopenia: - manual plt count 51 today - s/p 1 unit platelets 11/23, 11/26, 11/29 - discussed with pharmacy for N plate to be given inpatient. Could not get it approved from insurance. 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 chronic infiltrative changes in left lung. Partial collapse, consolidative changes in RUL - procal 1.14 high on admission - ID consulted. appreciate recs. s/p doxy and merrem for HCAP. - monitor Right sided cp: likely musculoskeletal, ruled out ACS, PE - resolved - trop neg x1, initial EKG neg - CTA neg for PE - US LE shows no DVT - pain management Hypokalemia: - resolved - monitor Anemia: - macrocytic MCV 103.8 - Vitamin B12, folate normal - Hgb 9.3 yesterday (prev 10.4). s/p 2 units prbcs 11/24 - monitor Hx of Stage IV SCC of lung with mets: - pain management: morphine PO ER, IR. IV prn morphine sulfate for breakthrough pain. - s/p chemo Hx of COPD: - nikunj - Dr Eastman on board. Appreciate recs. Hx of DM: - HgbA1c 7.2 - ISS low Palliative consult called. Patient wants full code. Case seen and discussed with Dr Puente.
[2017-12-07] MEDS: Morphine 15 mg Immediate Release Tab PO PRN (14:11)
[2017-12-07] MEDS: Morphine 2 mg/ml ISec IVP PRN ×2 (15:03→19:30)
[2017-12-08] MEDS: Albuterol-Ipratrop 3 mg / 0.5 (3 ml) UD IH SCH ×5 (02:00→19:53)
[2017-12-08] MEDS: Morphine 15 mg Immediate Release Tab PO PRN ×2 (02:05→15:29)
[2017-12-08] MEDS: Pantoprazole 40 mg EC Tab PO SCH (05:30)
[2017-12-08] MEDS: Insulin Lispro (humaLOG) LOW Coverage SC SCH ×5 (06:48→22:00)
[2017-12-08] MEDS: PRISTIQ 50 MG PO SCH ×3 (09:35→17:28)
[2017-12-08] MEDS: Morphine 15 mg SR Tab PO SCH ×2 (09:35→21:39)
[2017-12-08] MEDS: Magnesium Oxide 400 mg Tab UD PO SCH ×2 (09:35→17:29)
--- NOTE | 2017-12-08 10:17 | CP.PCM.PN ---
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 Patient put on neutropenic precautions, given daily granix, given plts and prbcs transfusion. Patient transferred to TCU once blood counts stabilized, for further rehab. Patient seen and examined in TCU, at bedside No acute events overnight. Discussed with SW, patient likely to be discharged on Tuesday to home. Patient reports mild weakness today, states that she is doing better, ambulating in the hallway. Denies pain this AM. States that she had a BM this AM. Denies mouth sores, fever, chills, nausea, vomiting, hemaotchezia, petechiae, mucosal bleeding, melena, abdominal pain, leg swelling. Objective - Vital Signs/Intake and Output Vital Signs (last 24 hours): Temp Pulse Resp BP Pulse Ox 97.5 F L 100 H 20 135/78 94 L 12/07/17 16:00 12/07/17 16:00 12/07/17 16:00 12/07/17 16:00 12/07/17 16:00 - Medications Medications: Current Medications Acetaminophen (Tylenol 325mg Tab) 650 mg PO Q4H PRN PRN Reason: Fever >100.5 F Al Hydrox/Mg Hydrox/Simethicone (Maalox Plus 30 Ml) 30 ml PO Q2H PRN PRN Reason: Mouth/Throat Pain Albuterol/Ipratropium (Duoneb 3 Mg/0.5 Mg (3 Ml) Ud) 3 ml IH [id number] [facility] Last Admin: 12/08/17 08:50 Dose: 3 ml Alprazolam (Xanax) 0.5 mg PO HS [facility] PRN Reason: Protocol Last Admin: 12/07/17 21:41 Dose: 0.5 mg Alprazolam (Xanax) 0.5 mg PO BID [facility] PRN Reason: Protocol Last Admin: 12/08/17 09:36 Dose: 0.5 mg Docusate Sodium (Colace) 100 mg PO BID [facility] Last Admin: 12/08/17 09:35 Dose: 100 mg Home Med (Home Med) 1 unit PO TID [facility] Last Admin: 12/08/17 09:35 Dose: 1 unit Insulin Human Lispro (Humalog Low) 0 units SC ACHS [facility] PRN Reason: Protocol Last Admin: 12/08/17 06:48 Dose: 1 u Lidocaine HCl (Lidocaine 2% Viscous) 30 ml PO Q2H PRN PRN Reason: Mouth/Throat Pain Last Admin: 12/03/17 09:56 Dose: 30 ml Magnesium Oxide (Mag-Ox) 400 mg PO BID [facility] Last Admin: 12/08/17 09:35 Dose: 400 mg Metoclopramide HCl (Reglan) 5 mg PO 0630,1200,1630,2200 [facility] PRN Reason: Protocol Last Admin: 12/08/17 05:30 Dose: 5 mg Morphine Sulfate (Morphine Immediate Release Tab) 15 mg PO Q6 PRN PRN Reason: Pain, moderate (4-7) Last Admin: 12/08/17 02:05 Dose: 15 mg Morphine Sulfate (Morphine) 2 mg IVP Q4H PRN; Protocol PRN Reason: Pain, severe (8-10) Last Admin: 12/07/17 19:30 Dose: 2 mg Morphine Sulfate (Morphine Extended Release Tab) 45 mg PO Q12 [facility] PRN Reason: Protocol Last Admin: 12/08/17 09:35 Dose: 45 mg Pantoprazole Sodium (Protonix Ec Tab) 40 mg PO 0600 [facility] Last Admin: 12/08/17 05:30 Dose: 40 mg - Labs Labs: 12/07/17 06:40 12/07/17 06:40 - Additional Findings Additional findings: - Constitutional Appears: Non-toxic, No Acute Distress - Head Exam Head Exam: ATRAUMATIC, NORMOCEPHALIC - Eye Exam Eye Exam: EOMI, PERRL. absent: Conjunctival injection, Nystagmus, Scleral icterus Pupil Exam: NORMAL ACCOMODATION, PERRL. absent: Fixed, Irregular, Miosis, Unequal - ENT Exam ENT Exam: Mucous Membranes Moist - Neck Exam Neck exam: Positive for: Full Rom, Normal Inspection - Respiratory Exam Respiratory Exam: Clear to Auscultation Bilateral, NORMAL BREATHING PATTERN. absent: Accessory Muscle Use, Chest Wall Tenderness, Rhonchi, Wheezes, Stridor Additional comments: + right sided chest port, c, d, i - Cardiovascular Exam Cardiovascular Exam: RRR, +S1, +S2. absent: Systolic Murmur - GI/Abdominal Exam GI & Abdominal Exam: Normal Bowel Sounds, Soft. absent: Distended, Firm, Guarding, Organomegaly, Rebound, Tenderness - Extremities Exam Extremities exam: Positive for: normal inspection. 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 Patient put on neutropenic precautions, given daily granix, given plts and prbcs transfusion. Patient transferred to TCU once blood counts stabilized, for further rehab and management: Persistent Thrombocytopenia: - manual plt count 51 yesterday - s/p 1 unit platelets 11/23, 11/26, 11/29 - discussed with pharmacy for N plate to be given inpatient. Could not get it approved from insurance. - monitor Generalized weakness: 2/2 radiation, Stage IV metastatic small cell lung cancer - receiving daily PT in TCU, improving in strength - Ensure supplements - pain management - monitor Neutropenia: - resolved - received Neulasta on 11/18 outpatient - s/p granix 480 mcg sq daily for 11/21-12/04 - will stop granix today - ANC 11.15 today - afebrile - CXR shows left basilar atelectasis vs infiltrate - CTA shows moderate right pleural effusion with compressive atelectasis. chronic infiltrative changes in left lung. Partial collapse, consolidative changes in RUL - procal 1.14 high on admission - ID consulted. appreciate recs. s/p doxy and merrem for HCAP. - monitor Right sided cp: likely musculoskeletal, ruled out ACS, PE - resolved - trop neg x1, initial EKG neg - CTA neg for PE - US LE shows no DVT - pain management Hypokalemia: - resolved - monitor Anemia: - macrocytic MCV 103.8 - Vitamin B12, folate normal - Hgb 9.3 yesterday (prev 10.4). s/p 2 units prbcs 11/24 - monitor Hx of Stage IV SCC of lung with mets: - pain management: morphine PO ER, IR. IV prn morphine sulfate for breakthrough pain. - s/p chemo Hx of COPD: - duonebs - Dr Eastman on board. Appreciate recs. Hx of DM: - HgbA1c 7.2 - ISS low Palliative consult called. Patient wants full code. Dispo: likely Sunday 12/10 Case seen and discussed with Dr Puente.
[2017-12-08] MEDS: Morphine 2 mg/ml ISec IVP PRN (12:25)
--- NOTE | 2017-12-08 16:12 | PN ---
Copied To: Jorge Luis Hernandez MD Attending MD: Jorge Luis Hernandez MD DATE: 12/08/2017 SUBJECTIVE: The patient is in bed, in no acute distress, nontoxic. PHYSICAL EXAMINATION: VITAL SIGNS: On exam, temperature is 98, blood pressure is 120/70, respiratory rate of 16. HEENT: Examination of HEENT is unremarkable. NECK: Supple. LUNGS: Have decreased breath sounds. HEART: Normal S1, S2. ABDOMEN: Soft, nontender. LABORATORY DATA: Laboratory examination reveals the white count is 9.2, hemoglobin of 9. BUN and creatinine are noted. Microbiology is noted. ASSESSMENT AND PLAN: A 72-year-old female, status post sepsis due to right-sided healthcare-associated pneumonia, status post neutropenia, status post history of sepsis due to right middle lobe healthcare-associated pneumonia on top of extended-spectrum beta-lactamase Klebsiella and Proteus urinary tract infection, stage III decubitus ulcer, has completed 7 days of doxycycline and meropenem. Currently, the patient is off of antibiotics. The patient is at risk for developing nosocomial infections. Jorge Luis Hernandez MD
[2017-12-09] MEDS: Morphine 15 mg Immediate Release Tab PO PRN ×3 (03:01→22:53)
[2017-12-09] MEDS: Pantoprazole 40 mg EC Tab PO SCH (06:22)
[2017-12-09] MEDS: Insulin Lispro (humaLOG) LOW Coverage SC SCH ×4 (06:47→21:23)
[2017-12-09 07:16] LABS: ALB/GLOB RATIO 1.2 (1.1-1.8); ALBUMIN 3.8 g/dL (3.0-4.8); ALT/SGPT 96 U/L (7-56); AST/SGOT 93 U/L (14-36); BASO # 0.04 K/mm3 (0.0-2.0); BASO % 0.6 % (0.0-3.0); BLOOD UREA NITROGEN 12 mg/dL (7-21); CALCIUM 8.6 mg/dL (8.4-10.5); GFR AFRICAN-AMERICAN > 60; GFR NON-AFRICAN AMERICAN > 60; GRAN # 5.63 (1.4-6.5); GRAN % 80.1 % (50.0-68.0); HEMOGLOBIN 9.9 g/dL (12.0-16.0); LYMPH # 0.5 (1.2-3.4); LYMPH % 7.3 % (22.0-35.0); MEAN CELL VOLUME 102.3 fl (80.0-105.0); MEAN CORPUSCULAR HEMOGLOBIN 31.8 pg (25.0-35.0); MEAN CORPUSCULAR HGB CONC 31.1 g/dl (31.0-37.0); MEAN PLATELET VOLUME 10.9 fl (7.0-11.0); MONO # 0.8 (0.1-0.6); RBC 3.11 10^6/uL (3.5-6.1); RED CELL DISTRIBUTION WIDTH 20.3 % (11.5-14.5)
[2017-12-09] MEDS: Albuterol-Ipratrop 3 mg / 0.5 (3 ml) UD IH SCH ×3 (08:07→20:20)
[2017-12-09] MEDS: PRISTIQ 50 MG PO SCH ×3 (09:58→17:05)
[2017-12-09] MEDS: Magnesium Oxide 400 mg Tab UD PO SCH ×2 (09:59→17:07)
[2017-12-09] MEDS: Morphine 15 mg SR Tab PO SCH ×2 (10:03→21:25)
--- NOTE | 2017-12-09 11:58 | CP.PCM.PN ---
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 Patient put on neutropenic precautions, given daily granix, given plts and prbcs transfusion. Patient transferred to TCU once blood counts stabilized, for further rehab. Patient to be discharged tomorrow 12/10. Patient seen and examined in TCU, at bedside. No acute events overnight. Patient reports excessive fatigue today, states that she probably walked a lot yesterday in TCU. Reports pain of 3-4/10 this AM in the right back region. Patient states that she has good appetite, eating well. BM this AM. requesting Xanax to be given 4x/day, instead of 3x/day for better anxiety control. Denies mouth sores, fever, chills, nausea, vomiting, hemaotchezia, petechiae, mucosal bleeding, melena, abdominal pain, leg swelling. Objective - Vital Signs/Intake and Output Vital Signs (last 24 hours): Temp Pulse Resp BP Pulse Ox 98.5 F 90 18 137/78 93 L 12/08/17 16:00 12/08/17 16:00 12/08/17 16:00 12/08/17 16:00 12/08/17 16:00 - Medications Medications: Current Medications Acetaminophen (Tylenol 325mg Tab) 650 mg PO Q4H PRN PRN Reason: Fever >100.5 F Al Hydrox/Mg Hydrox/Simethicone (Maalox Plus 30 Ml) 30 ml PO Q2H PRN PRN Reason: Mouth/Throat Pain Albuterol/Ipratropium (Duoneb 3 Mg/0.5 Mg (3 Ml) Ud) 3 ml IH [id number] KIMMY Last Admin: 12/09/17 08:07 Dose: 3 ml Alprazolam (Xanax) 0.5 mg PO HS [facility] PRN Reason: Protocol Last Admin: 12/08/17 21:39 Dose: 0.5 mg Alprazolam (Xanax) 0.5 mg PO TID [facility] PRN Reason: Protocol Docusate Sodium (Colace) 100 mg PO BID [facility] Last Admin: 12/09/17 09:58 Dose: 100 mg Home Med (Home Med) 1 unit PO TID [facility] Last Admin: 12/09/17 09:58 Dose: 1 unit Insulin Human Lispro (Humalog Low) 0 units SC ACHS [facility] PRN Reason: Protocol Last Admin: 12/09/17 06:47 Dose: 2 u Lidocaine HCl (Lidocaine 2% Viscous) 30 ml PO Q2H PRN PRN Reason: Mouth/Throat Pain Last Admin: 12/03/17 09:56 Dose: 30 ml Magnesium Oxide (Mag-Ox) 400 mg PO BID [facility] Last Admin: 12/09/17 09:59 Dose: 400 mg Metoclopramide HCl (Reglan) 5 mg PO 0630,1200,1630,2200 [facility] PRN Reason: Protocol Last Admin: 12/09/17 06:22 Dose: 5 mg Morphine Sulfate (Morphine) 2 mg IVP Q4H PRN; Protocol PRN Reason: Pain, severe (8-10) Last Admin: 12/08/17 12:25 Dose: 2 mg Morphine Sulfate (Morphine Extended Release Tab) 45 mg PO Q12 [facility] PRN Reason: Protocol Last Admin: 12/09/17 10:03 Dose: 45 mg Pantoprazole Sodium (Protonix Ec Tab) 40 mg PO 0600 [facility] Last Admin: 12/09/17 06:22 Dose: 40 mg - Labs Labs: 12/09/17 06:30 12/09/17 06:30 - Additional Findings Additional findings: - Constitutional Appears: Non-toxic, No Acute Distress - Head Exam Head Exam: ATRAUMATIC, NORMOCEPHALIC - Eye Exam Eye Exam: EOMI, PERRL. absent: Conjunctival injection, Nystagmus, Scleral icterus Pupil Exam: NORMAL ACCOMODATION, PERRL. absent: Fixed, Irregular, Miosis, Unequal - ENT Exam ENT Exam: Mucous Membranes Moist - Neck Exam Neck exam: Positive for: Full Rom, Normal Inspection - Respiratory Exam Respiratory Exam: Clear to Auscultation Bilateral, NORMAL BREATHING PATTERN. absent: Accessory Muscle Use, Chest Wall Tenderness, Rhonchi, Wheezes, Stridor Additional comments: + right sided chest port, c, d, i - Cardiovascular Exam Cardiovascular Exam: RRR, +S1, +S2. absent: Systolic Murmur - GI/Abdominal Exam GI & Abdominal Exam: Normal Bowel Sounds, Soft. absent: Distended, Firm, Guarding, Organomegaly, Rebound, Tenderness - Extremities Exam Extremities exam: Positive for: normal inspection. 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 Patient put on neutropenic precautions, given daily granix, given plts and prbcs transfusion. Patient transferred to TCU once blood counts stabilized, for further rehab and management: Persistent Thrombocytopenia: - manual plt count 77 today - s/p 1 unit platelets 11/23, 11/26, 11/29 - discussed with pharmacy for N plate to be given inpatient. Could not get it approved from insurance. 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 chronic infiltrative changes in left lung. Partial collapse, consolidative changes in RUL - procal 1.14 high on admission - ID consulted. appreciate recs. s/p doxy and merrem for HCAP. - monitor Right sided cp: likely musculoskeletal, ruled out ACS, PE - resolved - trop neg x1, initial EKG neg - CTA neg for PE - US LE shows no DVT - pain management Hypokalemia: - resolved - monitor Anemia: - macrocytic MCV 103.8 - Vitamin B12, folate normal - Hgb 9.3 yesterday (prev 10.4). s/p 2 units prbcs 11/24 - monitor Hx of Stage IV SCC of lung with mets: - pain management: morphine PO ER, IR. IV prn morphine sulfate for breakthrough pain. - xanax tid, and hs - s/p chemo Hx of COPD: - nikunj - Dr Eastman on board. Appreciate recs. Hx of DM: - HgbA1c 7.2 - ISS low Palliative consult called. Patient wants full code. Dispo: Patient going home on Sunday 12/10 Case seen and discussed with Dr Puente.
--- NOTE | 2017-12-09 13:52 | CP.PCM.PN ---
Subjective - Date & Time of Evaluation Date of Evaluation: 12/09/17 Time of Evaluation: 12:00 - Subjective Subjective: Comfortable, no fevers, not in distress. Objective - Vital Signs/Intake and Output Vital Signs (last 24 hours): Temp Pulse Resp BP Pulse Ox 98.5 F 90 18 137/78 93 L 12/08/17 16:00 12/08/17 16:00 12/08/17 16:00 12/08/17 16:00 12/08/17 16:00 - Medications Medications: Current Medications Acetaminophen (Tylenol 325mg Tab) 650 mg PO Q4H PRN PRN Reason: Fever >100.5 F Al Hydrox/Mg Hydrox/Simethicone (Maalox Plus 30 Ml) 30 ml PO Q2H PRN PRN Reason: Mouth/Throat Pain Albuterol/Ipratropium (Duoneb 3 Mg/0.5 Mg (3 Ml) Ud) 3 ml IH [id number] [facility] Last Admin: 12/09/17 13:30 Dose: 3 ml Alprazolam (Xanax) 0.5 mg PO HS [facility] PRN Reason: Protocol Last Admin: 12/08/17 21:39 Dose: 0.5 mg Alprazolam (Xanax) 0.5 mg PO TID [facility] PRN Reason: Protocol Docusate Sodium (Colace) 100 mg PO BID [facility] Last Admin: 12/09/17 09:58 Dose: 100 mg Home Med (Home Med) 1 unit PO TID [facility] Last Admin: 12/09/17 09:58 Dose: 1 unit Insulin Human Lispro (Humalog Low) 0 units SC ACHS [facility] PRN Reason: Protocol Last Admin: 12/09/17 12:45 Dose: 2 u Lidocaine HCl (Lidocaine 2% Viscous) 30 ml PO Q2H PRN PRN Reason: Mouth/Throat Pain Last Admin: 12/03/17 09:56 Dose: 30 ml Magnesium Oxide (Mag-Ox) 400 mg PO BID [facility] Last Admin: 12/09/17 09:59 Dose: 400 mg Metoclopramide HCl (Reglan) 5 mg PO 0630,1200,1630,2200 [facility] PRN Reason: Protocol Last Admin: 12/09/17 12:46 Dose: 5 mg Morphine Sulfate (Morphine) 2 mg IVP Q4H PRN; Protocol PRN Reason: Pain, severe (8-10) Last Admin: 12/08/17 12:25 Dose: 2 mg Morphine Sulfate (Morphine Extended Release Tab) 45 mg PO Q12 [facility] PRN Reason: Protocol Last Admin: 12/09/17 10:03 Dose: 45 mg Pantoprazole Sodium (Protonix Ec Tab) 40 mg PO 0600 [facility] Last Admin: 12/09/17 06:22 Dose: 40 mg - Labs Labs: 12/09/17 06:30 12/09/17 06:30 - Constitutional Appears: Chronically Ill - Head Exam Head Exam: NORMAL INSPECTION - Respiratory Exam Respiratory Exam: Decreased Breath Sounds - Cardiovascular Exam Cardiovascular Exam: +S1, +S2 - GI/Abdominal Exam GI & Abdominal Exam: Soft. absent: Tenderness Assessment and Plan - Assessment and Plan (Free Text) Plan: Assessment S/P sepsis due to right sided HCAP, S/P neutropenia history of sepsis due to right middle lobe HCAP on top of ESBL Klebsiella and Proteus UTI stage 3 decubitus ulcer history of Systemic viral illness with Influenza and acute bronchitis stage 4 lung cancer history of asymptomatic bacteriuria with VRE in the urine DM HTN depression lower back tumor obesity with BMI 30 Plan completed 7 days of Doxycycline and Merrem - continue to monitor off antibiotics since she is at risk for healthcare-associated infections overall prognosis is poor
[2017-12-10] MEDS: Albuterol-Ipratrop 3 mg / 0.5 (3 ml) UD IH SCH ×4 (02:29→21:17)
[2017-12-10] MEDS: Morphine 15 mg Immediate Release Tab PO PRN ×2 (05:25→15:19)
[2017-12-10] MEDS: Pantoprazole 40 mg EC Tab PO SCH (05:25)
[2017-12-10] MEDS: Insulin Lispro (humaLOG) LOW Coverage SC SCH ×4 (06:54→21:21)
[2017-12-10] MEDS: PRISTIQ 50 MG PO SCH ×3 (09:24→17:17)
[2017-12-10] MEDS: Magnesium Oxide 400 mg Tab UD PO SCH ×2 (09:24→17:18)
[2017-12-10] MEDS: Morphine 15 mg SR Tab PO SCH (09:26)
[2017-12-10] MEDS: Morphine 2 mg/ml ISec IVP PRN (12:23)
--- NOTE | 2017-12-10 13:06 | PN ---
Copied To: Jorge Luis Hernandez MD Attending MD: Jorge Luis Hernandez MD DATE: 12/10/2017 SUBJECTIVE: The patient is in bed, in no acute distress, nontoxic. PHYSICAL EXAMINATION: VITAL SIGNS: Temperature is 98, blood pressure is 140/70, respiratory rate of 20. HEENT: Unremarkable. NECK: Supple. LUNGS: Have decreased breath sounds. HEART: Normal S1, S2. ABDOMEN: Soft, nontender. LABORATORY DATA: Laboratory examination reveals a white count of 7, hemoglobin of 9, platelets of 56. BUN of 12, creatinine of 0.6 and LFTs are elevated and review of orders reveals the patient to be off of antibiotics. ASSESSMENT AND PLAN: A 72-year-old female with sepsis, with right-sided healthcare-associated pneumonia, status post neutropenia. History of sepsis, right middle lobe healthcare-associated pneumonia on top of an extended-spectrum beta-lactamase Klebsiella and Proteus urinary tract infection with stage III decubitus ulcer and hypertension, diabetes, depression and has completed 7 days of doxycycline, meropenem, currently off of antibiotics. The patient is at risk for developing nosocomial infections. Jorge Luis Hernandez MD
[2017-12-10] MEDS ORDERED: Morphine 2 mg/ml ISec IVP PRN (17:01)
[2017-12-10 18:29] VITALS: RESP 20
[2017-12-10] MEDS: Morphine 30 mg SR Tab PO SCH (21:22)
[2017-12-11] MEDS: Albuterol-Ipratrop 3 mg / 0.5 (3 ml) UD IH SCH ×5 (02:00→20:26)
[2017-12-11] MEDS: Pantoprazole 40 mg EC Tab PO SCH (05:32)
[2017-12-11 06:27] LABS: BASO # 0.02 K/mm3 (0.0-2.0); BASO % 0.3 % (0.0-3.0); GRAN # 4.75 (1.4-6.5); GRAN % 80.8 % (50.0-68.0); HEMOGLOBIN 10.1 g/dL (12.0-16.0); LYMPH # 0.5 (1.2-3.4); LYMPH % 9.2 % (22.0-35.0); MEAN CELL VOLUME 102.6 fl (80.0-105.0); MEAN CORPUSCULAR HEMOGLOBIN 32.9 pg (25.0-35.0); MEAN CORPUSCULAR HGB CONC 32.1 g/dl (31.0-37.0); MEAN PLATELET VOLUME 10.1 fl (7.0-11.0); MONO # 0.6 (0.1-0.6); MONO % 9.7 % (1.0-6.0); RBC 3.07 10^6/uL (3.5-6.1); RED CELL DISTRIBUTION WIDTH 20.8 % (11.5-14.5); WHITE BLOOD COUNT 5.9 10^3/ul (4.5-11.0)
[2017-12-11] MEDS: Insulin Lispro (humaLOG) LOW Coverage SC SCH ×4 (06:36→23:03)
[2017-12-11 06:40] LABS: ALB/GLOB RATIO 1.1 (1.1-1.8); ALBUMIN 3.7 g/dL (3.0-4.8); ALT/SGPT 120 U/L (7-56); AST/SGOT 129 U/L (14-36); BLOOD UREA NITROGEN 12 mg/dL (7-21); CALCIUM 8.7 mg/dL (8.4-10.5); GFR AFRICAN-AMERICAN > 60; GFR NON-AFRICAN AMERICAN > 60
[2017-12-11] MEDS: Magnesium Oxide 400 mg Tab UD PO SCH ×2 (09:26→17:28)
[2017-12-11] MEDS: PRISTIQ 50 MG PO SCH ×3 (09:26→17:28)
[2017-12-11] MEDS: Morphine 30 mg SR Tab PO SCH ×2 (09:29→21:55)
--- NOTE | 2017-12-11 12:05 | PN ---
Copied To: Jorge Luis Hernandez MD Attending MD: Jorge Luis Hernandez MD DATE: 12/11/2017 SUBJECTIVE: The patient is seen earlier today in room 327. No fevers. No chills. No nausea. PHYSICAL EXAMINATION: VITAL SIGNS: On exam, temperature is 97, blood pressure is 140/80, respiratory rate of 20, heart rate of 92. HEENT: Examination of HEENT is unremarkable. NECK: Supple. LUNGS: Have decreased breath sounds. HEART: Normal S1, S2. ABDOMEN: Soft, nontender. LABORATORY DATA: Laboratory examination reveals a white count of 5.9, hemoglobin of 10, platelets of 78. Chemistries reveals a BUN of 12, creatinine of 0.5. Urinalysis is noted. ASSESSMENT AND PLAN: A 72-year-old female, seen earlier today in room 327, who is allergic to sulfa with a right-sided healthcare-associated pneumonia, status post neutropenia, history of sepsis, right middle lobe healthcare-associated pneumonia on top of an extended-spectrum beta-lactamase Klebsiella and Proteus urinary tract infection and stage III decubitus ulcer, hypertension, diabetes, depression. Completed 7 days of doxycycline and meropenem. At this time, currently off of antibiotics, afebrile with a white count of 5.9, which is normal. No evidence of infection. Currently, off of antibiotics. However, the patient is at risk for developing nosocomial infection. Jorge Luis Hernandez MD
[2017-12-11] MEDS: Morphine 15 mg Immediate Release Tab PO PRN ×2 (13:03→19:44)
--- NOTE | 2017-12-11 17:36 | CP.PCM.PN ---
Subjective - Date & Time of Evaluation Date of Evaluation: 12/10/17 Time of Evaluation: 19:00 - Subjective Subjective: patient notes right groin discomfort since working with PT. pain continues to be significant 4/10 at best otherwise in the 8-9/10 region. Pain primarily in the right flank and back. Required IV morphine 2mg IVP Objective - Vital Signs/Intake and Output Vital Signs (last 24 hours): Temp Pulse Resp BP Pulse Ox 98.7 F 108 H 20 155/82 H 96 12/11/17 10:00 12/11/17 10:00 12/11/17 10:00 12/11/17 10:00 12/11/17 10:00 - Medications Medications: Current Medications Acetaminophen (Tylenol 325mg Tab) 650 mg PO Q4H PRN PRN Reason: Fever >100.5 F Al Hydrox/Mg Hydrox/Simethicone (Maalox Plus 30 Ml) 30 ml PO Q2H PRN PRN Reason: Mouth/Throat Pain Albuterol/Ipratropium (Duoneb 3 Mg/0.5 Mg (3 Ml) Ud) 3 ml IH [id number] [facility] Last Admin: 12/11/17 13:42 Dose: 3 ml Alprazolam (Xanax) 0.5 mg PO HS [facility] PRN Reason: Protocol Last Admin: 12/10/17 21:23 Dose: 0.5 mg Alprazolam (Xanax) 0.5 mg PO TID [facility] PRN Reason: Protocol Last Admin: 12/11/17 13:03 Dose: 0.5 mg Docusate Sodium (Colace) 100 mg PO BID [facility] Last Admin: 12/11/17 09:26 Dose: 100 mg Home Med (Home Med) 1 unit PO TID [facility] Last Admin: 12/11/17 13:04 Dose: 1 unit Insulin Human Lispro (Humalog Low) 0 units SC ACHS [facility] PRN Reason: Protocol Last Admin: 12/11/17 11:32 Dose: 2 u Lidocaine HCl (Lidocaine 2% Viscous) 30 ml PO Q2H PRN PRN Reason: Mouth/Throat Pain Last Admin: 12/03/17 09:56 Dose: 30 ml Magnesium Oxide (Mag-Ox) 400 mg PO BID [facility] Last Admin: 12/11/17 09:26 Dose: 400 mg Metoclopramide HCl (Reglan) 5 mg PO 0630,1200,1630,2200 [facility] PRN Reason: Protocol Last Admin: 12/11/17 11:34 Dose: 5 mg Morphine Sulfate (Morphine Immediate Release Tab) 15 mg PO Q6H PRN; Protocol PRN Reason: Pain, severe (8-10) Last Admin: 12/11/17 13:03 Dose: 15 mg Morphine Sulfate (Morphine Extended Release Tab) 60 mg PO Q12 [facility] Last Admin: 12/11/17 09:29 Dose: 60 mg Morphine Sulfate (Morphine) 2 mg IVP Q12H PRN; Protocol PRN Reason: Pain, severe (8-10) Pantoprazole Sodium (Protonix Ec Tab) 40 mg PO 0600 [facility] Last Admin: 12/11/17 05:32 Dose: 40 mg - Labs Labs: 12/11/17 06:20 12/11/17 06:20 - Constitutional Appears: Non-toxic - Respiratory Exam Respiratory Exam: Clear to Ausculation Bilateral, NORMAL BREATHING PATTERN - Cardiovascular Exam Cardiovascular Exam: REGULAR RHYTHM, +S1, +S2. absent: Murmur - GI/Abdominal Exam GI & Abdominal Exam: Soft, Normal Bowel Sounds. absent: Tenderness - Back Exam Back Exam: NORMAL INSPECTION - Skin Skin Exam: Dry, Intact, Normal Color, Warm Assessment and Plan - Assessment and Plan (Free Text) Plan: Patient gretel 72 y/o woman with pmhx signficant for stage IV SCC admitted with neutropenic sepsis in setting HCAP and UTI s/p 7 days of tx with doxycline and meropenem currently in the RCU for acute rehabilitation. Patient doing well but still requires intermittent IV narcotics. Plan on uptitrating ER Morphine from 45 to 60mg BID. 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 Patient put on neutropenic precautions, given daily granix, given plts and prbcs transfusion. Patient transferred to TCU once blood counts stabilized, for further rehab and management: Jordan Puente MD Oncology Service
--- NOTE | 2017-12-11 17:45 | CP.PCM.PN ---
Subjective - Date & Time of Evaluation Date of Evaluation: 12/11/17 Time of Evaluation: 18:00 - Subjective Subjective: Pain much better. Requiring less of PRN morphine. Warm compress helpful. Pain primarily 4/10 for now. Patient feels still very weak and deconditioned-- and is concerned about the prospects of being discharged as she feels she would benefit from on going PT. 12 ROS otherwise negative Objective - Vital Signs/Intake and Output Vital Signs (last 24 hours): Temp Pulse Resp BP Pulse Ox 98.7 F 108 H 20 155/82 H 96 12/11/17 10:00 12/11/17 10:00 12/11/17 10:00 12/11/17 10:00 12/11/17 10:00 - Medications Medications: Current Medications Acetaminophen (Tylenol 325mg Tab) 650 mg PO Q4H PRN PRN Reason: Fever >100.5 F Al Hydrox/Mg Hydrox/Simethicone (Maalox Plus 30 Ml) 30 ml PO Q2H PRN PRN Reason: Mouth/Throat Pain Albuterol/Ipratropium (Duoneb 3 Mg/0.5 Mg (3 Ml) Ud) 3 ml IH [id number] [facility] Last Admin: 12/11/17 13:42 Dose: 3 ml Alprazolam (Xanax) 0.5 mg PO HS [facility] PRN Reason: Protocol Last Admin: 12/10/17 21:23 Dose: 0.5 mg Alprazolam (Xanax) 0.5 mg PO TID [facility] PRN Reason: Protocol Last Admin: 12/11/17 13:03 Dose: 0.5 mg Docusate Sodium (Colace) 100 mg PO BID [facility] Last Admin: 12/11/17 09:26 Dose: 100 mg Home Med (Home Med) 1 unit PO TID [facility] Last Admin: 12/11/17 13:04 Dose: 1 unit Insulin Human Lispro (Humalog Low) 0 units SC ACHS [facility] PRN Reason: Protocol Last Admin: 12/11/17 11:32 Dose: 2 u Lidocaine HCl (Lidocaine 2% Viscous) 30 ml PO Q2H PRN PRN Reason: Mouth/Throat Pain Last Admin: 12/03/17 09:56 Dose: 30 ml Magnesium Oxide (Mag-Ox) 400 mg PO BID [facility] Last Admin: 12/11/17 09:26 Dose: 400 mg Metoclopramide HCl (Reglan) 5 mg PO 0630,1200,1630,2200 [facility] PRN Reason: Protocol Last Admin: 12/11/17 11:34 Dose: 5 mg Morphine Sulfate (Morphine Immediate Release Tab) 15 mg PO Q6H PRN; Protocol PRN Reason: Pain, severe (8-10) Last Admin: 12/11/17 13:03 Dose: 15 mg Morphine Sulfate (Morphine Extended Release Tab) 60 mg PO Q12 [facility] Last Admin: 12/11/17 09:29 Dose: 60 mg Morphine Sulfate (Morphine) 2 mg IVP Q12H PRN; Protocol PRN Reason: Pain, severe (8-10) Pantoprazole Sodium (Protonix Ec Tab) 40 mg PO 0600 [facility] Last Admin: 12/11/17 05:32 Dose: 40 mg - Labs Labs: 12/11/17 06:20 12/11/17 06:20 - Constitutional Appears: Well - Respiratory Exam Respiratory Exam: Clear to Ausculation Bilateral, NORMAL BREATHING PATTERN - Cardiovascular Exam Cardiovascular Exam: REGULAR RHYTHM, +S1, +S2. absent: Murmur - GI/Abdominal Exam GI & Abdominal Exam: Soft, Normal Bowel Sounds. absent: Tenderness - Back Exam Back Exam: NORMAL INSPECTION Assessment and Plan (1) Epidural mass Status: Acute - Assessment and Plan (Free Text) Assessment: Patient gretel 72 y/o woman with pmhx signficant for stage IV SCC admitted with neutropenic sepsis in setting HCAP and UTI s/p 7 days of tx with doxycline and meropenem currently in the RCU for acute rehabilitation. Patient's control better. Not requiring IV narcotics in in last 12 hours after having uptitrated ER morphine. Continues to work with PT for deconditioning. Discuss with case resolution specialist disposition options tomorrow. Jordan Puente MD Oncology Service
[2017-12-12] MEDS: Albuterol-Ipratrop 3 mg / 0.5 (3 ml) UD IH SCH ×4 (02:05→21:30)
[2017-12-12] MEDS: Pantoprazole 40 mg EC Tab PO SCH (05:51)
[2017-12-12] MEDS: Insulin Lispro (humaLOG) LOW Coverage SC SCH ×4 (07:02→21:28)
[2017-12-12] MEDS: PRISTIQ 50 MG PO SCH ×3 (09:39→17:29)
[2017-12-12] MEDS: Magnesium Oxide 400 mg Tab UD PO SCH ×2 (09:40→17:29)
[2017-12-12] MEDS: Morphine 30 mg SR Tab PO SCH ×2 (09:41→21:29)
[2017-12-12] MEDS: Morphine 15 mg Immediate Release Tab PO PRN (14:36)
--- NOTE | 2017-12-12 15:20 | CP.PCM.PN ---
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 Patient put on neutropenic precautions, given daily granix, given plts and prbcs transfusion. Patient transferred to TCU once blood counts stabilized, for further rehab. Over the weekend, patient had increasing weakness, fatigue, pain. Patient's morphine dosage adjusted. Patient to go home tomorrow as friend will be there to supervisor picking crew. Patient seen and examined in TCU, at bedside. No acute events overnight. Patient reports excessive fatigue and weakness today. Patient currently denies pain, however, states that her pain in the back region goes up to 9/10. Reports moderate appetite, tolerating PO diet well. Had BM this AM. Denies mouth sores , fever, chills, nausea, vomiting, hemaotchezia, petechiae, mucosal bleeding, melena, abdominal pain, leg swelling. Objective - Vital Signs/Intake and Output Vital Signs (last 24 hours): Temp Pulse Resp BP Pulse Ox 98.7 F 108 H 20 155/82 H 96 12/11/17 10:00 12/11/17 10:00 12/11/17 10:00 12/11/17 10:00 12/11/17 10:00 - Medications Medications: Current Medications Acetaminophen (Tylenol 325mg Tab) 650 mg PO Q4H PRN PRN Reason: Fever >100.5 F Last Admin: 12/12/17 00:18 Dose: 650 mg Al Hydrox/Mg Hydrox/Simethicone (Maalox Plus 30 Ml) 30 ml PO Q2H PRN PRN Reason: Mouth/Throat Pain Last Admin: 12/11/17 17:33 Dose: 30 ml Albuterol/Ipratropium (Duoneb 3 Mg/0.5 Mg (3 Ml) Ud) 3 ml IH [id number] [facility] Last Admin: 12/12/17 13:19 Dose: 3 ml Alprazolam (Xanax) 0.5 mg PO HS [facility] PRN Reason: Protocol Last Admin: 12/11/17 21:58 Dose: 0.5 mg Alprazolam (Xanax) 0.5 mg PO TID [facility] PRN Reason: Protocol Last Admin: 12/12/17 14:34 Dose: 0.5 mg Docusate Sodium (Colace) 100 mg PO BID [facility] Last Admin: 12/12/17 09:39 Dose: 100 mg Home Med (Home Med) 1 unit PO TID [facility] Last Admin: 12/12/17 14:35 Dose: 1 unit Insulin Human Lispro (Humalog Low) 0 units SC ACHS [facility] PRN Reason: Protocol Last Admin: 12/12/17 11:58 Dose: 2 u Lidocaine HCl (Lidocaine 2% Viscous) 30 ml PO Q2H PRN PRN Reason: Mouth/Throat Pain Last Admin: 12/03/17 09:56 Dose: 30 ml Magnesium Oxide (Mag-Ox) 400 mg PO BID [facility] Last Admin: 12/12/17 09:40 Dose: 400 mg Metoclopramide HCl (Reglan) 5 mg PO 0630,1200,1630,2200 [facility] PRN Reason: Protocol Last Admin: 12/12/17 11:57 Dose: 5 mg Morphine Sulfate (Morphine Immediate Release Tab) 15 mg PO Q6H PRN; Protocol PRN Reason: Pain, severe (8-10) Last Admin: 12/12/17 14:36 Dose: 15 mg Morphine Sulfate (Morphine Extended Release Tab) 60 mg PO Q12 [facility] Last Admin: 12/12/17 09:41 Dose: 60 mg Morphine Sulfate (Morphine) 2 mg IVP Q12H PRN; Protocol PRN Reason: Pain, severe (8-10) Pantoprazole Sodium (Protonix Ec Tab) 40 mg PO 0600 [facility] Last Admin: 12/12/17 05:51 Dose: 40 mg - Labs Labs: 12/11/17 06:20 12/11/17 06:20 - Additional Findings Additional findings: - Constitutional Appears: Non-toxic, No Acute Distress - Head Exam Head Exam: ATRAUMATIC, NORMOCEPHALIC - Eye Exam Eye Exam: EOMI, PERRL. absent: Conjunctival injection, Nystagmus, Scleral icterus Pupil Exam: NORMAL ACCOMODATION, PERRL. absent: Fixed, Irregular, Miosis, Unequal - ENT Exam ENT Exam: Mucous Membranes Moist - Neck Exam Neck exam: Positive for: Full Rom, Normal Inspection - Respiratory Exam Respiratory Exam: Clear to Auscultation Bilateral, NORMAL BREATHING PATTERN. absent: Accessory Muscle Use, Chest Wall Tenderness, Rhonchi, Wheezes, Stridor Additional comments: + right sided chest port, c, d, i - Cardiovascular Exam Cardiovascular Exam: RRR, +S1, +S2. absent: Systolic Murmur - GI/Abdominal Exam GI & Abdominal Exam: Normal Bowel Sounds, Soft. absent: Distended, Firm, Guarding, Organomegaly, Rebound, Tenderness - Extremities Exam Extremities exam: Positive for: normal inspection. 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 Patient put on neutropenic precautions, given daily granix, given plts and prbcs transfusion. Patient transferred to TCU once blood counts stabilized, for further rehab and management: Persistent Thrombocytopenia: - manual plt count 90 yesterday - s/p 1 unit platelets 11/23, 11/26, 11/29 - discussed with pharmacy for N plate to be given inpatient. Could not get it approved from insurance. 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 chronic infiltrative changes in left lung. Partial collapse, consolidative changes in RUL - procal 1.14 high on admission - ID consulted. appreciate recs. s/p doxy and merrem for HCAP. - monitor Right sided cp: likely musculoskeletal, ruled out ACS, PE - resolved - trop neg x1, initial EKG neg - CTA neg for PE - US LE shows no DVT - pain management Hypokalemia: - resolved - monitor Anemia: - macrocytic MCV 103.8 - Vitamin B12, folate normal - Hgb 10.1 yesterday. s/p 2 units prbcs 11/24 - monitor Hx of Stage IV SCC of lung with mets: - pain management: morphine PO ER, IR. IV prn morphine sulfate for breakthrough pain. - xanax tid, and hs - s/p chemo Hx of COPD: - nikunj - Dr Eastman on board. Appreciate recs. Hx of DM: - HgbA1c 7.2 - ISS low Palliative consult called. Patient wants full code. Dispo: Discharged home tomorrow Case seen and discussed with Dr Puente.
[2017-12-12 16:31] VITALS: BP 142/84; TEMP 97.6; O2SAT 93
[2017-12-12 17:03] VITALS: PULSE 109
--- NOTE | 2017-12-12 19:20 | CP.PCM.PN ---
Subjective - Date & Time of Evaluation Date of Evaluation: 12/12/17 Time of Evaluation: 11:20 - Subjective Subjective: Patient still feels weak and tired, no fevers. Objective - Vital Signs/Intake and Output Vital Signs (last 24 hours): Temp Pulse Resp BP Pulse Ox 98.7 F 108 H 20 155/82 H 96 12/11/17 10:00 12/11/17 10:00 12/11/17 10:00 12/11/17 10:00 12/11/17 10:00 - Medications Medications: Current Medications Acetaminophen (Tylenol 325mg Tab) 650 mg PO Q4H PRN PRN Reason: Fever >100.5 F Last Admin: 12/12/17 00:18 Dose: 650 mg Al Hydrox/Mg Hydrox/Simethicone (Maalox Plus 30 Ml) 30 ml PO Q2H PRN PRN Reason: Mouth/Throat Pain Last Admin: 12/11/17 17:33 Dose: 30 ml Albuterol/Ipratropium (Duoneb 3 Mg/0.5 Mg (3 Ml) Ud) 3 ml IH [id number] [facility] Last Admin: 12/12/17 07:07 Dose: 3 ml Alprazolam (Xanax) 0.5 mg PO HS [facility] PRN Reason: Protocol Last Admin: 12/11/17 21:58 Dose: 0.5 mg Alprazolam (Xanax) 0.5 mg PO TID [facility] PRN Reason: Protocol Last Admin: 12/12/17 09:42 Dose: 0.5 mg Docusate Sodium (Colace) 100 mg PO BID [facility] Last Admin: 12/12/17 09:39 Dose: 100 mg Home Med (Home Med) 1 unit PO TID [facility] Last Admin: 12/12/17 09:39 Dose: 1 unit Insulin Human Lispro (Humalog Low) 0 units SC ACHS [facility] PRN Reason: Protocol Last Admin: 12/12/17 07:02 Dose: 2 u Lidocaine HCl (Lidocaine 2% Viscous) 30 ml PO Q2H PRN PRN Reason: Mouth/Throat Pain Last Admin: 12/03/17 09:56 Dose: 30 ml Magnesium Oxide (Mag-Ox) 400 mg PO BID [facility] Last Admin: 12/12/17 09:40 Dose: 400 mg Metoclopramide HCl (Reglan) 5 mg PO 0630,1200,1630,2200 [facility] PRN Reason: Protocol Last Admin: 12/12/17 07:02 Dose: 5 mg Morphine Sulfate (Morphine Immediate Release Tab) 15 mg PO Q6H PRN; Protocol PRN Reason: Pain, severe (8-10) Last Admin: 12/11/17 19:44 Dose: 15 mg Morphine Sulfate (Morphine Extended Release Tab) 60 mg PO Q12 [facility] Last Admin: 12/12/17 09:41 Dose: 60 mg Morphine Sulfate (Morphine) 2 mg IVP Q12H PRN; Protocol PRN Reason: Pain, severe (8-10) Pantoprazole Sodium (Protonix Ec Tab) 40 mg PO 0600 [facility] Last Admin: 12/12/17 05:51 Dose: 40 mg - Labs Labs: 12/11/17 06:20 12/11/17 06:20 - Constitutional Appears: Chronically Ill - Head Exam Head Exam: NORMAL INSPECTION - Respiratory Exam Respiratory Exam: Decreased Breath Sounds - Cardiovascular Exam Cardiovascular Exam: +S1, +S2 - GI/Abdominal Exam GI & Abdominal Exam: Soft. absent: Tenderness Assessment and Plan - Assessment and Plan (Free Text) Plan: Assessment S/P sepsis due to right sided HCAP, S/P neutropenia history of sepsis due to right middle lobe HCAP on top of ESBL Klebsiella and Proteus UTI stage 3 decubitus ulcer history of Systemic viral illness with Influenza and acute bronchitis stage 4 lung cancer history of asymptomatic bacteriuria with VRE in the urine DM HTN depression lower back tumor obesity with BMI 30 Plan completed 7 days of Doxycycline and Merrem - continue to monitor off antibiotics since she is at risk for healthcare-associated infections overall prognosis is poor
[2017-12-13] MEDS: Morphine 15 mg Immediate Release Tab PO PRN ×2 (00:16→06:29)
[2017-12-13] MEDS: Pantoprazole 40 mg EC Tab PO SCH (06:13)
[2017-12-13] MEDS: Insulin Lispro (humaLOG) LOW Coverage SC SCH (06:32)
[2017-12-13 06:41] LABS: BASO # 0.02 K/mm3 (0.0-2.0); BASO % 0.3 % (0.0-3.0); EOS % 0.1 % (1.5-5.0); GRAN # 6.53 (1.4-6.5); HEMOGLOBIN 10.3 g/dL (12.0-16.0); LYMPH # 0.7 (1.2-3.4); LYMPH % 8.6 % (22.0-35.0); MEAN CELL VOLUME 102.8 fl (80.0-105.0); MEAN CORPUSCULAR HEMOGLOBIN 32.1 pg (25.0-35.0); MEAN CORPUSCULAR HGB CONC 31.2 g/dl (31.0-37.0); MEAN PLATELET VOLUME 10.2 fl (7.0-11.0); MONO # 0.6 (0.1-0.6); RBC 3.21 10^6/uL (3.5-6.1); RED CELL DISTRIBUTION WIDTH 20.7 % (11.5-14.5); WHITE BLOOD COUNT 7.9 10^3/ul (4.5-11.0)
[2017-12-13 07:00] LABS: ALB/GLOB RATIO 1.1 (1.1-1.8); ALBUMIN 3.9 g/dL (3.0-4.8); ALT/SGPT 123 U/L (7-56); AST/SGOT 172 U/L (14-36); BLOOD UREA NITROGEN 13 mg/dL (7-21); CALCIUM 8.8 mg/dL (8.4-10.5); GFR AFRICAN-AMERICAN > 60; GFR NON-AFRICAN AMERICAN > 60
[2017-12-13] MEDS: Albuterol-Ipratrop 3 mg / 0.5 (3 ml) UD IH SCH (07:03)
[2017-12-13] MEDS: PRISTIQ 50 MG PO SCH (09:08)
[2017-12-13] MEDS: Magnesium Oxide 400 mg Tab UD PO SCH (09:08)
[2017-12-13] MEDS: Morphine 30 mg SR Tab PO SCH (09:11)
[2017-12-13] MEDS ORDERED: Morphine 15 mg Immediate Release Tab PO STA (11:05)
--- NOTE | 2017-12-13 14:48 | CP.PCM.DIS ---
Provider - Provider Date of Admission: 12/01/17 20:58 Attending physician: Yosef Reis MD Consults: BABAK Hernandez Time Spent in preparation of Discharge (in minutes): 60 Diagnosis - Discharge Diagnosis (1) FTT (failure to thrive) in adult Status: Acute Priority: High (2) General weakness Status: Acute (3) Hypokalemia Status: Acute (4) Neutropenia Status: Acute (5) Pancytopenia Status: Acute (6) Pneumonia Status: Acute Hospital Course - Lab Results Lab Results: Most Recent Lab Values WBC 7.9 10^3/ul (4.5-11.0) D 12/13/17 06:30 RBC 3.21 10^6/uL (3.5-6.1) L 12/13/17 06:30 Hgb 10.3 g/dL (12.0-16.0) L 12/13/17 06:30 Hct 33.0 % (36.0-48.0) L 12/13/17 06:30 MCV 102.8 fl (80.0-105.0) 12/13/17 06:30 MCH 32.1 pg (25.0-35.0) 12/13/17 06:30 MCHC 31.2 g/dl (31.0-37.0) 12/13/17 06:30 RDW 20.7 % (11.5-14.5) H 12/13/17 06:30 Plt Count 117 10^3/uL (120.0-450.0) L 12/13/17 06:30 Manual Plt Count 90 K/mm3 (120-450) L 12/11/17 06:20 MPV 10.2 fl (7.0-11.0) 12/13/17 06:30 Gran % 83.0 % (50.0-68.0) H 12/13/17 06:30 Lymph % (Auto) 8.6 % (22.0-35.0) L 12/13/17 06:30 [place] % (Auto) 8.0 % (1.0-6.0) H 12/13/17 06:30 Eos % (Auto) 0.1 % (1.5-5.0) L 12/13/17 06:30 Baso % (Auto) 0.3 % (0.0-3.0) 12/13/17 06:30 Gran # 6.53 (1.4-6.5) H 12/13/17 06:30 Lymph # (Auto) 0.7 (1.2-3.4) L 12/13/17 06:30 [place] # (Auto) 0.6 (0.1-0.6) 12/13/17 06:30 Eos # (Auto) 0.0 (0.0-0.7) 12/13/17 06:30 Baso # (Auto) 0.02 K/mm3 (0.0-2.0) 12/13/17 06:30 Neutrophils % (Manual) 72 % (50.0-70.0) H 12/03/17 07:40 Band Neutrophils % 20 % (0-2) H* 12/03/17 07:40 Lymphocytes % (Manual) 5 % (22.0-35.0) L 12/03/17 07:40 Monocytes % (Manual) 3 % (1.0-6.0) 12/03/17 07:40 Nucleated RBC % 2 % 12/03/17 07:40 Platelet Evaluation Low (NORMAL) 12/07/17 06:40 Anisocytosis (manual) 1+ 12/03/17 07:40 Stomatocytes 1+ 12/03/17 07:40 Sodium 141 mmol/L (132-148) 12/13/17 06:30 Potassium 4.1 mmol/L (3.6-5.0) 12/13/17 06:30 Chloride 100 mmol/L (98-107) 12/13/17 06:30 Carbon Dioxide 30 mmol/L (21-33) 12/13/17 06:30 Anion Gap 15 (10-20) 12/13/17 06:30 BUN 13 mg/dL (7-21) 12/13/17 06:30 Creatinine 0.5 mg/dl (0.7-1.2) L 12/13/17 06:30 Est GFR ( Amer) > 60 12/13/17 06:30 Est GFR (Non-Af Amer) > 60 12/13/17 06:30 POC Glucose (mg/dL) 197 mg/dL (65-110) H 12/13/17 05:01 Random Glucose 202 mg/dL (70-110) H 12/13/17 06:30 Calcium 8.8 mg/dL (8.4-10.5) 12/13/17 06:30 Total Bilirubin 0.7 mg/dL (0.2-1.3) 12/13/17 06:30 AST 172 U/L (14-36) H D 12/13/17 06:30 ALT 123 U/L (7-56) H 12/13/17 06:30 Alkaline Phosphatase 595 U/L (38-126) H D 12/13/17 06:30 Total Protein 7.4 g/dL (5.8-8.3) 12/13/17 06:30 Albumin 3.9 g/dL (3.0-4.8) 12/13/17 06:30 Globulin 3.5 gm/dL 12/13/17 06:30 Albumin/Globulin Ratio 1.1 (1.1-1.8) 12/13/17 06:30 - Hospital Course Hospital Course: A 72 year old female with PMH 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 Patient recently completed her radiation therapy a week prior to arrival (last one 11/18). Patient states that she feels increasing generalized weakness, nausea. Patient also complained of right sided cp, achy, intermittent. CTA neg for PE, US LE neg for DVT. Patient found to be pancytopenic, hypokalemic. Patient put on neutropenic precautions, started on daily granix. Patient transfused prbcs, platelets for anemia, thrombocytopenia. ID consulted for left lower lobe pneumonia, treated appropriately with antibiotics. Electrolyte derangements managed while on floor. Advanced care planning Winifred Starr spoke to patient, patient wants all resuscitative measures in place. Physical therapy recommended TCU, patient amenable to get strengthening there. Patient received extensive Physical therapy while on TCU. Patient's pain management dosage adjusted as per patient's needs. Patient discharhed home with appropriate medications, patient to follow up with Dr Puente next week, 12/20 at 11:30 AM. Patient agrees to follow up. Case discussed with Dr Puente. Discharge Exam - Head Exam Head Exam: NORMAL INSPECTION - Eye Exam Eye Exam: EOMI, PERRL. absent: Conjunctival injection, Nystagmus, Scleral icterus - ENT Exam ENT Exam: Mucous Membranes Moist - Neck Exam Neck exam: Full Rom - Respiratory Exam Respiratory Exam: Clear to PA & Lateral, NORMAL BREATHING PATTERN. absent: Accessory Muscle Use, Chest Wall Tenderness, Prolonged Expiratory Phase, Respiratory Distress, Stridor - Cardiovascular Exam Cardiovascular Exam: RRR, +S1, +S2. absent: Systolic Murmur Additional comments: right sided chest port in place, c/d/i - GI/Abdominal Exam GI & Abdominal Exam: Normal Bowel Sounds, Soft. absent: Distended, Firm, Guarding, Mass, Pulsatile Mass, Rebound, Rigid - Extremities Exam Extremities exam: normal inspection - Back Exam Back exam: NORMAL INSPECTION - Neurological Exam Neurological exam: Alert, Oriented x3 - Psychiatric Exam Psychiatric exam: Normal Affect, Normal Mood - Skin Skin Exam: Dry, Normal Color, Warm Discharge Plan - Discharge Medications Prescriptions: Albuterol/Ipratropium [Duoneb 3 mg/0.5 mg (3 ml) UD] 3 ml IH [id number] #30 neb Acetaminophen [Tylenol 325mg tab] 650 mg PO Q4H PRN #30 tab PRN Reason: Fever >100.5 F Aluminum Hydroxide/Magnesium [Maalox Plus 30 ml] 30 ml PO Q2H PRN #30 udc PRN Reason: Mouth/Throat Pain Desvenlafaxine [Desvenlafaxine ER] 50 mg PO DAILY #30 tab.er.24h DiphenhydrAMINE [Benadryl] 75 mg PO Q2H PRN #30 udc PRN Reason: Mouth/Throat Pain Docusate [Colace] 100 mg PO BID #30 cap Home Med 1 unit PO TID #30 ea Home Med 1 unit PO TID #30 ea Insulin Lispro-LOW [humALOG LOW] 0 units SC ACHS #100 ml Lidocaine 2% Viscous 30 ml PO Q2H PRN #1 bottle PRN Reason: Mouth/Throat Pain Magnesium Oxide [Mag-Ox] 400 mg PO BID #30 tab Metoclopramide [Reglan] 5 mg PO ACHS #30 tab Morphine [Morphine Immediate Release Tab] 15 mg PO Q6 PRN #0 tab PRN Reason: Pain, Moderate (4-7) Morphine [Morphine Extended Release Tab] 45 mg PO Q12 #14 tabsr Pantoprazole [Protonix EC Tab] 40 mg PO 0600 #30 ect Pantoprazole [Protonix EC Tab] 40 mg PO ACB #30 ect Saliva Substitute 0 ml PO Q2 PRN #30 ml PRN Reason: Dry Mouth Tbo-Filgrastim [Granix] 480 mcg SC DAILY #7 ml - Follow Up Plan Condition: GOOD Disposition: HOME/ ROUTINE Instructions: Lung Cancer, Chronic Obstructive Pulmonary Disease (COPD), Including Emphysema, Heart Failure, Adult, Heart Healthy Diet, Preventing Falls in the Older Adult, Diabetes Type 2 (DC) Additional Instructions: Please continue your taking your medications as per MD order. Follow up with Dr Puente on 12/20 at 11:30 AM. Please follow up with your primary MD 1 week after discharge.
== END 2017-12-13 12:09 | disposition home health service (06) | DRG 945 ==
LOC: TRCU 20:58
PROVIDERS: ADMIT Family Medicine; ATTEND Family Medicine
PROC: F07Z9FZ Gait Training/Functional Ambulation Treatment using Assistive, Adaptive, Supportive or Protective Equipment (ICD-10-PCS; principal; 2017-12-02)
PROC: F08Z4FZ Home Management Treatment using Assistive, Adaptive, Supportive or Protective Equipment (ICD-10-PCS; 2017-12-02)
PROC: 3E0F7GC Introduction of Other Therapeutic Substance into Respiratory Tract, Via Natural or Artificial Opening (ICD-10-PCS; 2017-12-02)
DX: R53.1 Weakness (principal); L89.153 Pressure ulcer of sacral region, stage 3; J18.9 Pneumonia, unspecified organism; C34.00 Malignant neoplasm of unspecified main bronchus; D61.818 Other pancytopenia; C79.51 Secondary malignant neoplasm of bone; J44.0 Chronic obstructive pulmonary disease with (acute) lower respiratory infection; C78.7 Secondary malignant neoplasm of liver and intrahepatic bile duct; E87.6 Hypokalemia; E11.9 Type 2 diabetes mellitus without complications; R62.7 Adult failure to thrive; I48.91 Unspecified atrial fibrillation; I10 Essential (primary) hypertension; F32.9 Major depressive disorder, single episode, unspecified; E66.9 Obesity, unspecified; Z68.30 Body mass index [BMI] 30.0-30.9, adult; Z92.3 Personal history of irradiation; Z87.891 Personal history of nicotine dependence

== ENCOUNTER 2017-12-20 14:16 | Inpatient (IN) | payer MEDICARE, OTHER ==
[2017-12-20 14:16] VITALS: BMI 26.0
--- NOTE | 2017-12-20 15:43 | ED PDOC ---
Arrival/HPI - General Chief Complaint: Trauma Time Seen by Provider: 12/20/17 15:04 Historian: Patient - History of Present Illness Narrative History of Present Illness (Text): 12/20/17 15:52 72 yr old female w/ hx of Small Cell lung CA presents s/p recc from PMD for intermittent AMS, and fall. Per family and pt bedside pt had a mech. fall 2d prior. There was no LOC and the pt was not on any blood thinners. Pt also had constant R sided back pain starting yesterday, throbbing, without radiation, first time occurence. Pt denies any hemoptysis or leg swelling. No fever, chills or night sweats. No CP or SOB. No abdominal pain, dark stool, bloody stool, or urinary complaints. Pt was previously on chemo weeks earlier which was d/c 2/2 side effects and weakness. No other complaints Past Medical History - Infectious Disease Hx of Infectious Diseases: None - Tetanus Immunization Tetanus Immunization: Unknown - Reproductive Menopause: Yes - Cardiac Hx Congestive Heart Failure: Yes Hx Hypertension: Yes - Pulmonary Hx Respiratory Disorders: Yes Hx Pneumonia: Yes Other/Comment: small cell lung ca - Neurological Hx Neurological Disorder: No - HEENT Hx HEENT Disorder: Yes (eyeglases) - Renal Hx Renal Disorder: No - Endocrine/Metabolic Hx Diabetes Mellitus Type 2: Yes - Hematological/Oncological Hx Blood Disorders: Yes Hx Anemia: Yes Hx Cancer: Yes (lung) Hx Chemotherapy: Yes (Last Tx 11/20/17) Hx Metastasis: Yes (liver, bone,[spine & epidural mass]) Other/Comment: radiation markings to abd abd chest - Integumentary Hx Dermatological Disorder: Yes Other/Comment: SACRAL PRESSURE ULCER stg 2 1cm x 1cm wound bed is red/pink surounded by reddish skin optifoam intact, multiple purple and red skin discolorations to both legs and arms, thick long hard toenails, radiation markings to abd and chest - Musculoskeletal/Rheumatological Hx Falls: Yes (past) - Gastrointestinal Hx Gastrointestinal Disorders: Yes (constipation/ nausea) - Genitourinary/Gynecological Hx Genitourinary Disorders: Yes - Psychiatric Hx Psychophysiologic Disorder: Yes Hx Anxiety: Yes Hx Depression: Yes Hx Substance Use: No - Surgical History Hx Appendectomy: Yes Hx Cardiac Catheterization: Yes Hx Joint Replacement: Yes (RIGHT TKR 10/2012) Other/Comment: knee replacement 2012 right, 2 c-sections, r cw pac - Anesthesia Hx Anesthesia Reactions: No Hx Malignant Hyperthermia: No Family/Social History Family/Social History: Unknown Family HX Smoking Status: Former Smoker Hx Alcohol Use: No Hx Substance Use: No Allergies/Home Meds Allergies/Adverse Reactions: Allergies Sulfa (Sulfonamide Antibiotics) Allergy (Verified 12/20/17 14:49) ANAPHYLAXIS Review of Systems - Review of Systems Constitutional: Fatigue Eyes: Normal ENT: Normal Respiratory: Normal Cardiovascular: Normal Gastrointestinal: Normal Genitourinary Female: Normal Musculoskeletal: Back Pain Skin: Normal Neurological: Other (intermittent ams) Endocrine: Normal Psychiatric: Normal Physical Exam Vital Signs Temp Pulse Resp BP Pulse Ox 12/20/17 17:30 99 H 18 129/80 96 12/20/17 14:44 98.6 F 72 18 114/52 L 98 - Systems Exam Head: Present: Contusion (to R scalp) Pupils: Present: PERRL Extroacular Muscles: Present: EOMI Conjunctiva: Present: Normal Ears: Present: Normal Mouth: Present: Moist Mucous Membranes Pharnyx: Present: Normal Nose (External): Present: Atraumatic Nose (Internal): Present: Normal Inspection, No Active Bleeding. No: Septal Hematoma, Epistaxis Neck: Present: Normal Range of Motion. No: MIDLINE TENDERNESS Respiratory/Chest: Present: Clear to Auscultation, Good Air Exchange Cardiovascular: Present: Regular Rate and Rhythm Abdomen: Present: Normal Bowel Sounds. No: Tenderness, Rebound, Hernias Upper Extremity: Present: Normal Inspection Lower Extremity: Present: Normal Inspection Neurological: Present: GCS=15, CN II-XII Intact, Speech Normal, Normal Cerebellar Funct Skin: Present: Warm, Dry Psychiatric: Present: Alert, Oriented x 3 Medical Decision Making ED Course and Treatment: 12/20/17 16:10 72 yr old female w/ hx of CA presents altered s/p mech fall. ?2/2 worsening CA burden vs PE vs UTI vs trauma. Will seek out imaging and labs. 12/20/2017 18:34 +UA w/ out SIRS vitals: will RX. Abd/Pelvis CT IMPRESSION: Extensive hepatic metastasis. Suspected widespread osseous metastasis. Increasing kiran hepatislymphadenopathy. Epicardial lymphadenopathy. Small to moderate right pleural effusion minimally increased in size compared to prior CT examination of 07/12/2017. Dictator: Lars Miguel MD 12/20/17 18:35 Talked with radiologist regarding CT findings, which showed a subdural hematoma. Spoke to Dr. Pineda (NSX), who states for no current intervention and to have patient admitted. Paged ICU and patient's PMD, awaiting callback at this time. 12/20/17 19:42 Appreciate consult w/ PMD Dr. De La Rosa: ICU consult, will accept under his service Appreciate consult w/ Dr. Cantu (ICU)- Tele appropriate given AOx3, mild SDH , DNR/DNI status of pt 12/20/17 19:46 - Lab Interpretations Lab Results: 12/20/17 16:02 12/20/17 16:02 Lab Results 12/20/17 16:08: pO2 34, VBG pH 7.37, VBG pCO2 48.0, VBG HCO3 27.7, VBG Total CO2 29.2 H, VBG O2 Sat (Calc) 64.9, VBG Base Excess 1.7, VBG Potassium 3.4 L, Glucose 181 H, Lactate 3.0 H, FiO2 21.0, Sodium 138.0, Chloride 100.0, Venous Blood Potassium 3.4 L 12/20/17 16:02: TSH 3rd Generation 2.07 12/20/17 16:02: Sodium 140, Potassium 3.6, Chloride 98, Carbon Dioxide 28, Anion Gap 18, BUN 14, Creatinine 0.6 L, Est GFR ( Amer) > 60, Est GFR ( Non-Af Amer) > 60, Random Glucose 177 H, Calcium 8.5, Magnesium 2.0, Total Bilirubin 1.2, AST 106 H, ALT 60 H, Alkaline Phosphatase 606 H, Troponin I < 0.01, Total Protein 7.6, Albumin 4.0, Globulin 3.7, Albumin/Globulin Ratio 1.1, Lipase 45 12/20/17 16:02: WBC 7.5, RBC 3.39 L, Hgb 10.9 L, Hct 35.0 L, MCV 103.2, MCH 32.2 , MCHC 31.1, RDW 20.9 H, Plt Count 175, MPV 9.8, Gran % 83.5 H, Lymph % (Auto) 7.4 L, [place] % (Auto) 9.0 H, Eos % (Auto) 0.0 L, Baso % (Auto) 0.1, Gran # 6.23, Lymph # (Auto) 0.6 L, [place] # (Auto) 0.7 H, Eos # (Auto) 0.0, Baso # (Auto) 0.01 12/20/17 15:55: Urine Color Yellow, Urine Appearance Sl cloudy, Urine pH 6.5, Ur Specific [place] 1.020, Urine Protein >=300 H, Urine Glucose (UA) Negative, Urine Ketones Negative, Urine Blood Trace-intact H, Urine Nitrate Negative, Urine Bilirubin Small H, Urine Urobilinogen 1.0 H, Ur Leukocyte Esterase Moderate H, Urine RBC 2 - 5, Urine WBC 20 - 25, Ur Epithelial Cells 6 - 8, Amorphous Sediment Few, Urine Bacteria Many, Fine Granular Casts 0 - 2, Urine Other Uyeast - RAD Interpretation Radiology Orders: 12/20/17 15:05 HEAD W/O CONTRAST [CT] Stat 12/20/17 15:18 ABDOMEN & PELVIS [ABD & PELVIS W/O PO OR IV CONT] [CT] Stat ANGIO CHEST PE PROTOCOL [CT] Stat 12/20/17 16:10 CERVICAL SPINE W/O CONTRAST [CT] Stat - EKG Interpretation EKG Interpretation (Text): 12/20/17 16:09 94, NSR, No stemi, LVH Type: 12 lead EKG - Medication Orders Current Medication Orders: Discontinued Medications Ceftriaxone Sodium (Rocephin 1 Gram Ivpb) 1 gm in 100 mls @ 100 mls/hr IVPB ONCE ONE PRN Reason: Protocol Stop: 12/20/17 17:35 Last Admin: 12/20/17 16:55 Dose: 100 mls/hr eMAR Start Stop Document 12/20/17 16:55 OCS (Rec: 12/20/17 16:55 OCS [id number]) Intravenous Solution Start Date 12/20/17 Start Time 16:55 End Date 12/20/17 End time 17:25 Total Infusion Time 30 Disposition/Present on Arrival - Present on Arrival Any Indicators Present on Arrival: No History of DVT/PE: No History of Uncontrolled Diabetes: No Urinary Catheter: No History of Decub. Ulcer: No History Surgical Site Infection Following: None - Disposition Have Diagnosis and Disposition been Completed?: Yes Diagnosis: SDH (subdural hematoma), UTI (urinary tract infection) Disposition: HOME/ ROUTINE Disposition Time: 19:47 Patient Plan: Admission, Telemetry Condition: GOOD Forms: [facility] (Swedish)
[2017-12-20 16:05] LABS: PH,URINE 6.5 (4.7-8.0); URINE BILIRUBIN SMALL (NEGATIVE); URINE BLOOD TRACE-INTACT (NEGATIVE); URINE GLUCOSE (UA) NEGATIVE (NEGATIVE); URINE LEUKOCYTE ESTERASE MODERATE Leu/uL (NEGATIVE); URINE PROTEIN >=300 mg/dL (<30 mg/dL)
[2017-12-20 16:06] LABS: URINE APPEARANCE SL CLOUDY (CLEAR); URINE COLOR YELLOW (YELLOW)
[2017-12-20 16:14] LABS: VENOUS BLOOD GAS BASE EXCESS 1.7 mmol/L (0.0-2.0); VENOUS BLOOD GAS PO2 34 mm/Hg (30-55); VENOUS BLOOD PH 7.37 (7.32-7.43)
[2017-12-20 16:21] LABS: BASO # 0.01 K/mm3 (0.0-2.0); BASO % 0.1 % (0.0-3.0); GRAN # 6.23 (1.4-6.5); GRAN % 83.5 % (50.0-68.0); HEMOGLOBIN 10.9 g/dL (12.0-16.0); LYMPH # 0.6 (1.2-3.4); LYMPH % 7.4 % (22.0-35.0); MEAN CELL VOLUME 103.2 fl (80.0-105.0); MEAN CORPUSCULAR HEMOGLOBIN 32.2 pg (25.0-35.0); MEAN CORPUSCULAR HGB CONC 31.1 g/dl (31.0-37.0); MEAN PLATELET VOLUME 9.8 fl (7.0-11.0); MONO # 0.7 (0.1-0.6); RBC 3.39 10^6/uL (3.5-6.1); RED CELL DISTRIBUTION WIDTH 20.9 % (11.5-14.5); WHITE BLOOD COUNT 7.5 10^3/ul (4.5-11.0)
[2017-12-20 16:25] LABS: URINE AMORPHOUS SEDIMENT FEW; URINE BACTERIA MANY (NEG); URINE WBC 20 - 25 /hpf (0-6)
[2017-12-20 16:26] LABS: URINE FINE GRANULAR CAST 0 - 2 /hpf (0-2)
[2017-12-20 16:32] LABS: ALB/GLOB RATIO 1.1 (1.1-1.8); ALT/SGPT 60 U/L (7-56); AST/SGOT 106 U/L (14-36); BLOOD UREA NITROGEN 14 mg/dL (7-21); CALCIUM 8.5 mg/dL (8.4-10.5); GFR NON-AFRICAN AMERICAN > 60; LIPASE 45 U/L (23-300)
[2017-12-20] MEDS ORDERED: cefTRIAXone 1 gm 1 GM/100 ML BAG IVPB ONE (16:36)
[2017-12-20 16:39] LABS: TROPONIN I < 0.01 ng/mL
[2017-12-20] MEDS ORDERED: Iodixanol 320 MG/ML 100 ML BOTTLE IV ONE (17:07)
--- NOTE | 2017-12-20 18:35 | CT ---
Date of service: 12/20/2017 PROCEDURE: CT Abdomen and Pelvis without intravenous contrast HISTORY: back pain COMPARISON: 07/12/2017 TECHNIQUE: Without contrast.. Contrast dose: 0 Radiation dose: Total exam DLP = 888.53 mGy-cm. This CT exam was performed using one or more of the following dose reduction techniques: Automated exposure control, adjustment of the mA and/or kV according to patient size, and/or use of iterative reconstruction technique. FINDINGS: LOWER THORAX: Small to moderate right pleural effusion. No left pleural effusion. Right lower lobe compressive atelectasis. Minimal linear scar/atelectasis at left lung base. Epicardial lymphadenopathy noted. LIVER: Multiple large masses throughout liver consistent with widespread hepatic metastasis. Hepatomegaly. No evidence of biliary obstruction. GALLBLADDER AND BILE DUCTS: Unremarkable. PANCREAS: Unremarkable. No gross lesion or ductal dilatation. SPLEEN: Unremarkable. ADRENALS: Unremarkable. No mass. KIDNEYS AND URETERS: Unremarkable. No hydronephrosis. No solid mass. VASCULATURE: Unremarkable. No aortic aneurysm. BOWEL: Unremarkable. No obstruction. No gross mural thickening. APPENDIX: Unremarkable PERITONEUM: Unremarkable. No free fluid. No free air. LYMPH NODES: Extensive kiran hepatis lymphadenopathy, up to 2.2 cm short axis. Increased compared to 07/12/2017. No retroperitoneal or pelvic lymphadenopathy. BLADDER: Unremarkable. REPRODUCTIVE: Unremarkable postmenopausal uterus BONES: multifocal sclerotic osseous lesions suspicious for osseous metastasis. OTHER FINDINGS: None. IMPRESSION: Extensive hepatic metastasis. Suspected widespread osseous metastasis. Increasing kiran hepatis lymphadenopathy. Epicardial lymphadenopathy. Small to moderate right pleural effusion minimally increased in size compared to prior CT examination of 07/12/2017.
--- NOTE | 2017-12-20 18:37 | CT ---
Date of service: 12/20/2017 PROCEDURE: CT HEAD WITHOUT CONTRAST. HISTORY: fall COMPARISON: CT head dated 07/12/2017. TECHNIQUE: Axial computed tomography images were obtained through the head/brain without intravenous contrast. Radiation dose: Total exam DLP = 881.8 mGy-cm. This CT exam was performed using one or more of the following dose reduction techniques: Automated exposure control, adjustment of the mA and/or kV according to patient size, and/or use of iterative reconstruction technique. FINDINGS: HEMORRHAGE: Small left temporal subdural hematoma with superficial scalp hematoma in this location. No obvious parenchymal contusion or evidence of subarachnoid hemorrhage. Small right frontal and frontotemporal dural-based areas of high density with superficial scalp based areas of high density in these locations. BRAIN: No mass effect or edema. Atrophy. Chronic microvascular ischemic changes. VENTRICLES: Unremarkable. No hydrocephalus. CALVARIUM: Unremarkable. PARANASAL SINUSES: Unremarkable as visualized. No significant inflammatory changes. MASTOID AIR CELLS: Unremarkable as visualized. No inflammatory changes. OTHER FINDINGS: None. IMPRESSION: Thin left temporal convexity subdural hematoma. Focal small areas of right frontal and frontotemporal dural-based high density with areas of high density in the overlying scalp which may represent dural-based metastases versus focal areas of epidural hematoma. Contrast-enhanced MRI of the brain can be obtained for further characterization as clinically warranted. No evidence of depressed calvarial fracture. Findings conveyed to Dr. Mckeon by Dr. Ledbetter at 6:25pm on 12/20/2017.
--- NOTE | 2017-12-20 18:40 | CT ---
Date of service: 12/20/2017 PROCEDURE: CT Cervical Spine without contrast HISTORY: fall COMPARISON: None available. TECHNIQUE: Axial computed tomography images were obtained of the cervical spine without the use of intravenous contrast. Coronal and sagittal reformatted images were created and reviewed. Radiation dose: Total exam DLP = 423.5 mGy-cm. This CT exam was performed using one or more of the following dose reduction techniques: Automated exposure control, adjustment of the mA and/or kV according to patient size, and/or use of iterative reconstruction technique. FINDINGS: VERTEBRAE: No fracture. Normal alignment. No destructive bony lesion. DISCS/SPINAL CANAL/NEURAL FORAMINA: Multilevel disc space narrowing. PARASPINAL SOFT TISSUES: Unremarkable. OTHER FINDINGS: Partially imaged right chest wall internal jugular access chest port. Partially imaged right pleural effusion. IMPRESSION: No acute fracture. Intrathoracic findings will be reported on concurrent CT angiography of the pulmonary arteries.
--- NOTE | 2017-12-20 18:53 | CT ---
Date of service: 12/20/2017 PROCEDURE: CT Chest with contrast (Pulmonary Angiogram) HISTORY: hx of ca, now p/w upper/ lower back pain COMPARISON: 11/21/2017 TECHNIQUE: Axial computed tomography images were obtained of the chest in the pulmonary arterial phase of enhancement. Coronal and sagittal reformatted images were created and reviewed. Intravenous contrast dose: 100 mL Visipaque 320 Radiation dose: Total exam DLP = 412.43 mGy-cm. This CT exam was performed using one or more of the following dose reduction techniques: Automated exposure control, adjustment of the mA and/or kV according to patient size, and/or use of iterative reconstruction technique. FINDINGS: PULMONARY ARTERIES: Unremarkable. No pulmonary embolism. AORTA: No acute findings. No thoracic aortic aneurysm. LUNGS: Minimal right lower lobe compressive atelectasis secondary to pleural effusion. Probable dependent atelectasis in the right lower lobe and left lower lobe. Suspected neoplasm versus atelectasis along right lateral aspect of mediastinum extending to right hilum. Also likely extending along superior extent of the major fissure. The patient may be status post partial right pneumonectomy. PLEURAL SPACES: Moderate right and no left pleural effusion. No pneumothorax per PICC HEART: Normal size. LYMPH NODES: Suspect right peritracheal lymphadenopathy. Mildly enlarged epicardial lymph nodes. No other mediastinal lymphadenopathy. No definite hilar lymphadenopathy. BONES, CHEST WALL: Widespread sclerotic osseous metastasis throughout all visualized osseous structures. No acute fracture appreciated. OTHER FINDINGS: Unremarkable. IMPRESSION: No evidence of pulmonary embolism. Moderate right pleural effusion. Possible partial right pneumonectomy. Neoplasm versus atelectasis along superior right mediastinal border. Widespread sclerotic osseous metastasis.
--- NOTE | 2017-12-20 19:02 | CP.PCM.PN ---
Subjective - Date & Time of Evaluation Date of Evaluation: 12/20/17 Time of Evaluation: 18:55 - Subjective Subjective: called by ED regarding pt Reviewed CT There are 2 small areas of dural thickening which are only a few mm thick they are bilateral It is possible that they represent small SDH, but if so, are inconsequential, and would not cause AMS There is no required TX for them Alternatively they may represent small areas of meningeal metastatic disease or carcinomatous meningitis. Again, from a surgical point of view this requires no intervention. A contrast MRI would help differentiate these if medical management of the CA would change based on the outcome of the study. Objective - Vital Signs/Intake and Output Vital Signs (last 24 hours): Temp Pulse Resp BP Pulse Ox 98.6 F 99 H 18 129/80 96 12/20/17 14:44 12/20/17 17:30 12/20/17 17:30 12/20/17 17:30 12/20/17 17:30 - Labs Labs: 12/20/17 16:02 12/20/17 16:02
[2017-12-20 20:06] LABS: VENOUS BLOOD GAS BASE EXCESS 2.5 mmol/L (0.0-2.0); VENOUS BLOOD GAS PO2 107 mm/Hg (30-55)
--- NOTE | 2017-12-20 20:17 | CP.PCM.PN ---
Subjective - Date & Time of Evaluation Date of Evaluation: 12/20/17 Time of Evaluation: 18:00 - Subjective Subjective: Patient complaining of persistent pain in right flank. Not taking pain medicaitons as reported. Friends states patient seems more confused. Patient confesses while friend outside of the room that she has had mechanical falls at home and has landed on her heads. Not taking ER morphine at scheduled times. Objective - Vital Signs/Intake and Output Vital Signs (last 24 hours): Temp Pulse Resp BP Pulse Ox 98.6 F 99 H 18 129/80 96 12/20/17 14:44 12/20/17 17:30 12/20/17 17:30 12/20/17 17:30 12/20/17 17:30 - Labs Labs: 12/20/17 16:02 12/20/17 16:02 - Constitutional Appears: Non-toxic - Respiratory Exam Respiratory Exam: Clear to Ausculation Bilateral, NORMAL BREATHING PATTERN - GI/Abdominal Exam GI & Abdominal Exam: Soft, Normal Bowel Sounds. absent: Tenderness - Extremities Exam Extremities Exam: Full ROM, Normal Capillary Refill, Normal Inspection. 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 CT head demonstrates subdural -consult neurology -oncology will follow as primary service -hold all anticoagulants, NSAIDs -continue home pain medication regimen Jordan Puente MD Oncology Service
--- NOTE | 2017-12-20 20:18 | CP.PCM.CON ---
<Kael Vega - Last Filed: 12/20/17 20:23> History of Present Illness - History of Present Illness History of Present Illness: ICU Consult Note (Dr. Arellano)- Stefanie PGY2 CC: Left Temporal Subdural Hematoma HPI: Ms. 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 Patient is currently alert and oriented to person, place, time and event with family at bedside. Patient reports that two days ago she had a mechanical fall at home, falling to the floor and hitting the right side of her head. The patient denies any LOC, headaches, changes in vision or any new focal weakness. Patient also endorses right sided lower back pain that she describes as constant, throbbing and non-radiating. She denies ever having this in the past. Of note, patient has ER Morphine at home but has not been compliant with taking this medication for this particular pain. She further denies any fevers, chills, chest pain, palpitations, SOB, abdominal pain , N/V/D/C, melena/hematochezia, changes in urine output or any new numbness/ tingling/weakness of any extremity. In the ED, patient was found to have a thin left temporal subdural hematoma with focal areas of hyperdensity consistent with metastatic disease versus epidural hematomas. On CT abdomen/pelvis, patient was also found to have extensive hepatic metastasis, suspected widespread osseous metastasis, increasing kiran hepatislymphadenopathy, epicardial lymphadenopathy and small to moderate right pleural effusion with minimal interval increase in size. 12 point ROS obtained and negative, except as per HPI. PMH: As stated above PSH: Right knee replacement, Kiran Cath, and Family History: Non-contributory Social History: Former smoker with 50 pack year smoking history; Social alcohol use; Denies illicit drug use Allergies: Sulfa Home Medications: As per MAR PMD: Dr. Puente/ Dr. Jarrett Review of Systems - Review of Systems Review of Systems: As stated in HPI, otherwise negative Past Patient History - Infectious Disease Hx of Infectious Diseases: None - Tetanus Immunizations Tetanus Immunization: Unknown - Past Medical History & Family History Past Medical History?: Yes - Past Social History Smoking Status: Former Smoker - CARDIAC Hx Congestive Heart Failure: Yes Hx Hypertension: Yes - PULMONARY Hx Respiratory Disorders: Yes Hx Pneumonia: Yes Other/Comment: small cell lung ca - NEUROLOGICAL Hx Neurological Disorder: No - HEENT Hx HEENT Problems: Yes (eyeglases) - RENAL Hx Chronic Kidney Disease: No - ENDOCRINE/METABOLIC Hx Diabetes Mellitus Type 2: Yes - HEMATOLOGICAL/ONCOLOGICAL Hx Blood Disorders: Yes Hx Anemia: Yes Hx Cancer: Yes (lung) Hx Chemotherapy: Yes (Last Tx 11/20/17) Hx Metastesis: Yes (liver, bone,[spine & epidural mass]) Other/Comment: radiation markings to abd abd chest - INTEGUMENTARY Hx Dermatological Problems: Yes Other/Comment: SACRAL PRESSURE ULCER stg 2 1cm x 1cm wound bed is red/pink surounded by reddish skin optifoam intact, multiple purple and red skin discolorations to both legs and arms, thick long hard toenails, radiation markings to abd and chest - MUSCULOSKELETAL/RHEUMATOLOGICAL Hx Falls: Yes (past) - GASTROINTESTINAL Hx Gastrointestinal Disorders: Yes (constipation/ nausea) - GENITOURINARY/GYNECOLOGICAL Hx Genitourinary Disorders: Yes - PSYCHIATRIC Hx Psychophysiologic Disorder: Yes Hx Anxiety: Yes Hx Depression: Yes Hx Substance Use: No - SURGICAL HISTORY Hx Appendectomy: Yes Hx Cardiac Catheterization: Yes Hx Joint Replacement: Yes (RIGHT TKR 10/2012) Other/Comment: knee replacement 2013 right, 2 c-sections, r cw pac - ANESTHESIA Hx Anesthesia Reactions: No Hx Malignant Hyperthermia: No Meds Allergies/Adverse Reactions: Allergies Allergy/AdvReac Type Severity Reaction Status Date / Time Sulfa (Sulfonamide Allergy ANAPHYLAXIS Verified 12/20/17 14:49 Antibiotics) Physical Exam - Constitutional Appears: Non-toxic, No Acute Distress - Head Exam Head Exam: absent: ATRAUMATIC (Erythema and inflammation associated with soft tissue hematoma to the right forehead) - Eye Exam Eye Exam: EOMI, Normal appearance, PERRL Pupil Exam: NORMAL ACCOMODATION - ENT Exam ENT Exam: Mucous Membranes Moist, Normal External Ear Exam, Normal Oropharynx - Neck Exam Neck exam: Positive for: Full Rom. Negative for: Meningismus, Tenderness - Respiratory Exam Respiratory Exam: Clear to Auscultation Bilateral, NORMAL BREATHING PATTERN - Cardiovascular Exam Cardiovascular Exam: REGULAR RHYTHM, RRR, +S1, +S2 - GI/Abdominal Exam GI & Abdominal Exam: Normal Bowel Sounds, Soft. absent: Tenderness - Neurological Exam Neurological exam: Alert, CN II-XII Intact, Oriented x3 - Psychiatric Exam Psychiatric exam: Normal Affect, Normal Mood - Skin Skin Exam: Dry, Intact, Normal Color, Warm Results - Vital Signs Recent Vital Signs: Last Vital Signs Temp 98.6 F 12/20/17 14:44 Pulse 99 H 12/20/17 17:30 Resp 18 12/20/17 17:30 BP 129/80 12/20/17 17:30 Pulse Ox 96 12/20/17 17:30 - Labs Result Diagrams: 12/20/17 16:02 12/20/17 16:02 Labs: Laboratory Results - last 24 hr 12/20/17 12/20/17 12/20/17 15:55 16:02 16:02 WBC 7.5 RBC 3.39 L Hgb 10.9 L Hct 35.0 L MCV 103.2 MCH 32.2 MCHC 31.1 RDW 20.9 H Plt Count 175 MPV 9.8 Gran % 83.5 H Lymph % (Auto) 7.4 L [place] % (Auto) 9.0 H Eos % (Auto) 0.0 L Baso % (Auto) 0.1 Gran # 6.23 Lymph # (Auto) 0.6 L [place] # (Auto) 0.7 H Eos # (Auto) 0.0 Baso # (Auto) 0.01 pO2 VBG pH VBG pCO2 VBG HCO3 VBG Total CO2 VBG O2 Sat (Calc) VBG Base Excess VBG Potassium Glucose Lactate FiO2 Sodium 140 Potassium 3.6 Chloride 98 Carbon Dioxide 28 Anion Gap 18 BUN 14 Creatinine 0.6 L Est GFR ( Amer) > 60 Est GFR (Non-Af Amer) > 60 Random Glucose 177 H Calcium 8.5 Magnesium 2.0 Total Bilirubin 1.2 AST 106 H ALT 60 H Alkaline Phosphatase 606 H Troponin I < 0.01 Total Protein 7.6 Albumin 4.0 Globulin 3.7 Albumin/Globulin Ratio 1.1 Lipase 45 TSH 3rd Generation Venous Blood Potassium Urine Color Yellow Urine Appearance Sl cloudy Urine pH 6.5 Ur Specific [place] 1.020 Urine Protein >=300 H Urine Glucose (UA) Negative Urine Ketones Negative Urine Blood Trace-intact H Urine Nitrate Negative Urine Bilirubin Small H Urine Urobilinogen 1.0 H Ur Leukocyte Esterase Moderate H Urine RBC 2 - 5 Urine WBC 20 - 25 Ur Epithelial Cells 6 - 8 Amorphous Sediment Few Urine Bacteria Many Fine Granular Casts 0 - 2 Urine Other Uyeast 12/20/17 12/20/17 16:02 16:08 WBC RBC Hgb Hct MCV MCH MCHC RDW Plt Count MPV Gran % Lymph % (Auto) [place] % (Auto) Eos % (Auto) Baso % (Auto) Gran # Lymph # (Auto) [place] # (Auto) Eos # (Auto) Baso # (Auto) pO2 34 VBG pH 7.37 VBG pCO2 48.0 VBG HCO3 27.7 VBG Total CO2 29.2 H VBG O2 Sat (Calc) 64.9 VBG Base Excess 1.7 VBG Potassium 3.4 L Glucose 181 H Lactate 3.0 H FiO2 21.0 Sodium 138.0 Potassium Chloride 100.0 Carbon Dioxide Anion Gap BUN Creatinine Est GFR ( Amer) Est GFR (Non-Af Amer) Random Glucose Calcium Magnesium Total Bilirubin AST ALT Alkaline Phosphatase Troponin I Total Protein Albumin Globulin Albumin/Globulin Ratio Lipase TSH 3rd Generation 2.07 Venous Blood Potassium 3.4 L Urine Color Urine Appearance Urine pH Ur Specific [place] Urine Protein Urine Glucose (UA) Urine Ketones Urine Blood Urine Nitrate Urine Bilirubin Urine Urobilinogen Ur Leukocyte Esterase Urine RBC Urine WBC Ur Epithelial Cells Amorphous Sediment Urine Bacteria Fine Granular Casts Urine Other Assessment & Plan - Assessment and Plan (Free Text) Assessment: 72 year old female with a past medical history significant for 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 In the ED, patient was found to have a thin left temporal subdural hematoma with focal areas of hyperdensity consistent with metastatic disease versus epidural hematomas. On CT abdomen/pelvis, patient was also found to have extensive hepatic metastasis, suspected widespread osseous metastasis, increasing kiran hepatislymphadenopathy, epicardial lymphadenopathy and small to moderate right pleural effusion with minimal interval increase in size. Plan: Patients chart, including most recent vital signs, labs and imaging, reviewed with attending. Currently, patient does not meet ICU admission criteria due to her appropriate mental status and hemodynamic stability. Further recommendations per Heme/Onc and Neurology service. Please reconsult as needed. - Date & Time Date: 12/20/17 Time: 20:38 <Katiana Arellano - Last Filed: 12/21/17 05:30> Meds - Medications Medications: Current Medications Dextrose (Dextrose 50% Inj) 0 ml IV STAT PRN; Protocol PRN Reason: Hypoglycemia Protocol Dextrose (Dextrose 5% In Water 1000 Ml) 1,000 mls @ 0 mls/hr IV .Q0M PRN; Protocol; Per Protocol PRN Reason: Hypoglycemia Protocol Results - Vital Signs Recent Vital Signs: Last Vital Signs Temp 97.7 F 12/21/17 01:05 Pulse 95 H 12/21/17 02:00 Resp 18 12/21/17 01:05 BP 139/69 12/21/17 01:05 Pulse Ox 97 12/21/17 00:20 - Labs Result Diagrams: 12/20/17 16:02 12/20/17 16:02 Labs: Laboratory Results - last 24 hr 12/20/17 19:57 pO2 107 H VBG pH 7.40 VBG pCO2 45.0 VBG HCO3 27.9 VBG Total CO2 29.3 H VBG O2 Sat (Calc) 98.0 H VBG Base Excess 2.5 H VBG Potassium 3.2 L Sodium 138.0 Chloride 101.0 Glucose 171 H Lactate 2.0 FiO2 21.0 Venous Blood Potassium 3.2 L Attending/Attestation - Attestation I have personally seen and examined this patient.: Yes I have fully participated in the care of the patient.: Yes I have reviewed all pertinent clinical information: Yes Notes (Text): Pt. is DNR/DNI. SDH to be monitored by [facility]. Pt. A & O x 4 with complete recall to event of mechanical fall. Recommends heme/onc consult and Rocephin for UTI 12/21/17 05:29
[2017-12-21] MEDS ORDERED: Morphine 15 mg Immediate Release Tab PO ONE (01:05)
[2017-12-21] MEDS ORDERED: Dextrose 50% SYRINGE Inj (50 ml) IV PRN (01:05)
[2017-12-21 07:40] LABS: GRAN # 4.01 (1.4-6.5); HEMOGLOBIN 9.6 g/dL (12.0-16.0); LYMPH # 0.4 (1.2-3.4); LYMPH % 7.2 % (22.0-35.0); MEAN CELL VOLUME 101.7 fl (80.0-105.0); MEAN CORPUSCULAR HEMOGLOBIN 32.1 pg (25.0-35.0); MEAN CORPUSCULAR HGB CONC 31.6 g/dl (31.0-37.0); MONO # 0.5 (0.1-0.6); MONO % 10.8 % (1.0-6.0); RBC 2.99 10^6/uL (3.5-6.1); RED CELL DISTRIBUTION WIDTH 20.7 % (11.5-14.5); WHITE BLOOD COUNT 4.9 10^3/ul (4.5-11.0)
[2017-12-21 07:59] LABS: ALBUMIN 3.4 g/dL (3.0-4.8); ALT/SGPT 53 U/L (7-56); AST/SGOT 87 U/L (14-36); BLOOD UREA NITROGEN 15 mg/dL (7-21); GFR NON-AFRICAN AMERICAN > 60
[2017-12-21] MEDS: Albuterol-Ipratrop 3 mg / 0.5 (3 ml) UD IH SCH ×3 (08:12→19:53)
[2017-12-21] MEDS: Insulin Lispro (humaLOG) LOW Coverage SC SCH ×4 (08:17→21:34)
[2017-12-21] MEDS: Pantoprazole 40 mg EC Tab PO SCH (08:17)
[2017-12-21] MEDS ORDERED: Potassium Chloride 20 mEq ER Tab PO ONE (08:55)
[2017-12-21] MEDS: Morphine 15 mg SR Tab PO SCH ×2 (09:56→21:14)
[2017-12-21] MEDS: Magnesium Oxide 400 mg Tab UD PO SCH ×2 (09:57→17:19)
[2017-12-21] MEDS ORDERED: DESVENLAFAXINE 50 MG PO SCH ×2 (10:00)
--- NOTE | 2017-12-21 10:38 | CARD ---
APPROVED REPORT Date of service: 12/20/2017 EKG Measurement Heart [id number] IN [id number] <Conclusion> Normal sinus rhythm Left axis deviation LBBB STTW changes
--- NOTE | 2017-12-21 11:29 | CP.PCM.PN ---
Subjective - Date & Time of Evaluation Date of Evaluation: 12/21/17 Time of Evaluation: 11:25 - Subjective Subjective: Primary/Heme/Onc Progress Note for Dr. Puente -- Terell Lam DO PGY2 Patient seen and examined at bedside. No acute overnight events. Patient admits to mechanical fall and hitting her head. Patient denied any symptoms including LOC or dizziness prior to fall. Patient states that she feels well today aside from b/l shoulder soreness, but denies any trauma to her shoulders. She is able to freely move her shoulders without limit in ROM. Patient denied CP, SOB, n/v/d , abdominal pain, fever, chills, VASQUES, or dizziness. Objective - Vital Signs/Intake and Output Vital Signs (last 24 hours): Temp Pulse Resp BP Pulse Ox 97.6 F 91 H 15 136/76 92 L 12/21/17 10:52 12/21/17 10:52 12/21/17 10:52 12/21/17 10:52 12/21/17 10:52 Intake and Output: 12/21/17 12/21/17 06:59 18:59 Intake Total 660 Output Total 500 Balance 160 - Medications Medications: Current Medications Acetaminophen (Tylenol 325mg Tab) 650 mg PO Q4H PRN PRN Reason: Fever >100.5 F Albuterol/Ipratropium (Duoneb 3 Mg/0.5 Mg (3 Ml) Ud) 3 ml IH [id number] [facility] Last Admin: 12/21/17 08:12 Dose: 3 ml Dextrose (Dextrose 50% Inj) 0 ml IV STAT PRN; Protocol PRN Reason: Hypoglycemia Protocol Docusate Sodium (Colace) 100 mg PO BID [facility] Last Admin: 12/21/17 09:57 Dose: 100 mg Dextrose (Dextrose 5% In Water 1000 Ml) 1,000 mls @ 0 mls/hr IV .Q0M PRN; Protocol; Per Protocol PRN Reason: Hypoglycemia Protocol Insulin Human Lispro (Humalog Low) 0 units SC [facility] PRN Reason: Protocol Last Admin: 12/21/17 08:17 Dose: 1 unit Magnesium Oxide (Mag-Ox) 400 mg PO BID [facility] Last Admin: 12/21/17 09:57 Dose: 400 mg Metoclopramide HCl (Reglan) 5 mg PO [facility] Last Admin: 12/21/17 08:17 Dose: 5 mg Morphine Sulfate (Morphine Extended Release Tab) 45 mg PO Q12 [facility] Last Admin: 12/21/17 09:56 Dose: 45 mg Morphine Sulfate (Morphine Immediate Release Tab) 15 mg PO Q6 PRN PRN Reason: Pain, moderate (4-7) Desvenlafaxine [ Desvenlafaxine Er] 50 Mg 150 mg PO DAILY [facility] Pantoprazole Sodium (Protonix Ec Tab) 40 mg PO ACB [facility] Last Admin: 12/21/17 08:17 Dose: 40 mg - Labs Labs: 12/21/17 07:00 12/21/17 07:00 - Constitutional Appears: No Acute Distress - Head Exam Additional comments: Soft tissue noted on right frontal region; no tenderness otherwise - Eye Exam Eye Exam: Normal appearance - ENT Exam ENT Exam: Normal Exam - Neck Exam Neck Exam: Normal Inspection - Respiratory Exam Respiratory Exam: Decreased Breath Sounds (right lung base), Clear to Ausculation Bilateral. absent: Rales, Rhonchi, Wheezes - Cardiovascular Exam Cardiovascular Exam: REGULAR RHYTHM - GI/Abdominal Exam GI & Abdominal Exam: Soft. 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 Patient was admitted due a thin left temporal subdural hematoma with focal areas of hyperdensity consistent with metastatic disease versus epidural hematomas found on head CT. Plan: - Head CT showed thin left temporal covexity subdural hematoma and small areas of right front and frontotemporal dural based densities representing metastasis vs. epidural hematoma - Cervical CT shows no acute fracture - Chest CT showed no PE, moderate right pleural effusion, neoplasm vs atelectasis along superior right mediastinal border - Abd/pelvis CT showed extensive hepatic metastasis, widespread osseous metastasis, and increasing kiran-hepatis lymphandenopathy - NO anticoagulation or NSAIDs at this time - No surgical intervention at this time per Neurosurgery - Neurology consulted - Pulmonology consulted - Palliative consulted for goals of care - PT/OT eval and treat - Social work consulted, will likely require placement with history of multiple falls - K 3.4, repleted with PO KCl; will cont to monitor and replete as needed - Cont home pain medication regimen - Cont duoneb due to h/o COPD - ISS and accuchecks ACHS due to h/o DM - Protonix for GI PPx - SCDs for DVT PPx Case discussed with attending. Terell Lam, DO PGY2
[2017-12-21] MEDS: Desvenlafaxine [Desvenlafaxine Er] 50 MG PO SCH (14:53)
--- NOTE | 2017-12-21 14:54 | CP.PCM.CON ---
History of Present Illness - History of Present Illness History of Present Illness: Palliative consult requested by Dr Juan Puente Reason: Goals of care advance care planning 72 year old female with history of metastatic SCLC who was sent by Dr Puente because of altered mental status. The patient reported having fallen at home. She also complained throbbing/localized right sided back pain. She denied loss of consciousness.She also denied fever, chills, chest or abdominal pain, shortness of breath, melena or urinary symptoms. CT of head showed thin left complexity subdural hematoma,focal small areas of right and frontotemporal dural based high density with areas of high density in the overlying scalp which may represent dural based metastasis vs focal areas of epidural hematoma, no evidence of fracture. CT of abdomen showed extensive hepatic metastasis, suspected wide spread osseous metastasis, increasing kiran hepatis lymphadenopathy, epicardial lymphadenopathy, small to moderate right pleural effusion. Labs: Wbc7.5, Hgb 10.9, Plt 175,Na 140, K 3.6, Bun 14, Creat 0.6, glucose 177, Ast 106, Alt 60, Alk Phos 606. Urine + for protein, leukocytes, bacteria, trace blood EKG: NSR, LBBB, STTW changes, troponin 0.1 PMHx: Dm, HTN, metastatic SCLC, depression, UTI, HCAP PSH: right knee replacement, [place] cath, C section Social History: Former smoker, no alcohol or illicit drug use. Lives alone Advance Care Planning: POLST:Full code, her son Usman is her health care surrogate Review of Systems: As per HPI, 12 point review otherwise negative Past Patient History - Infectious Disease Hx of Infectious Diseases: None - Tetanus Immunizations Tetanus Immunization: Unknown - Past Medical History & Family History Past Medical History?: Yes - Past Social History Smoking Status: Former Smoker - CARDIAC Hx Congestive Heart Failure: Yes Hx Hypercholesterolemia: Yes Hx Hypertension: Yes - PULMONARY Hx Asthma: Yes Hx Chronic Obstructive Pulmonary Disease (COPD): Yes Hx Pneumonia: Yes - NEUROLOGICAL Hx Neurological Disorder: No - HEENT Hx HEENT Problems: Yes (glasses) - RENAL Hx Chronic Kidney Disease: No - ENDOCRINE/METABOLIC Hx Diabetes Mellitus Type 2: Yes - HEMATOLOGICAL/ONCOLOGICAL Hx Anemia: Yes Hx Cancer: Yes (Lung CA w/ mets to liver and bone) Hx Chemotherapy: Yes (as per patient she finished tx) Hx Metastesis: Yes - INTEGUMENTARY Hx Dermatological Problems: Yes Other/Comment: SACRAL PRESSURE ULCER stg 2 1cm x 1cm wound bed is red/pink surounded by reddish skin optifoam intact, multiple purple and red skin discolorations to both legs and arms, thick long hard toenails, radiation markings to abd and chest - MUSCULOSKELETAL/RHEUMATOLOGICAL Hx Arthritis: Yes Hx Back Pain: Yes Hx Falls: Yes Hx Unsteady Gait: Yes - GASTROINTESTINAL Hx Gastrointestinal Disorders: Yes (constipation/ nausea) - GENITOURINARY/GYNECOLOGICAL Hx Urinary Tract Infection: Yes - PSYCHIATRIC Hx Anxiety: Yes Hx Depression: Yes - SURGICAL HISTORY Hx Surgeries: Yes () Hx Appendectomy: Yes Hx Orthopedic Surgery: Yes - ANESTHESIA Hx Anesthesia Reactions: No Hx Malignant Hyperthermia: No Meds Allergies/Adverse Reactions: Allergies Allergy/AdvReac Type Severity Reaction Status Date / Time Sulfa (Sulfonamide Allergy ANAPHYLAXIS Verified 12/20/17 14:49 Antibiotics) - Medications Medications: Current Medications Acetaminophen (Tylenol 325mg Tab) 650 mg PO Q4H PRN PRN Reason: Fever >100.5 F Albuterol/Ipratropium (Duoneb 3 Mg/0.5 Mg (3 Ml) Ud) 3 ml IH [id number] [facility] Last Admin: 12/21/17 08:12 Dose: 3 ml Dextrose (Dextrose 50% Inj) 0 ml IV STAT PRN; Protocol PRN Reason: Hypoglycemia Protocol Docusate Sodium (Colace) 100 mg PO BID [facility] Last Admin: 12/21/17 09:57 Dose: 100 mg Dextrose (Dextrose 5% In Water 1000 Ml) 1,000 mls @ 0 mls/hr IV .Q0M PRN; Protocol; Per Protocol PRN Reason: Hypoglycemia Protocol Insulin Human Lispro (Humalog Low) 0 units SC [facility] PRN Reason: Protocol Last Admin: 12/21/17 12:28 Dose: 1 unit Magnesium Oxide (Mag-Ox) 400 mg PO BID [facility] Last Admin: 12/21/17 09:57 Dose: 400 mg Metoclopramide HCl (Reglan) 5 mg PO ACHS [facility] Last Admin: 12/21/17 12:28 Dose: 5 mg Morphine Sulfate (Morphine Extended Release Tab) 45 mg PO Q12 [facility] Last Admin: 12/21/17 09:56 Dose: 45 mg Morphine Sulfate (Morphine Immediate Release Tab) 15 mg PO Q6 PRN PRN Reason: Pain, moderate (4-7) Desvenlafaxine [ Desvenlafaxine Er] 50 Mg 150 mg PO DAILY [facility] Pantoprazole Sodium (Protonix Ec Tab) 40 mg PO ACB [facility] Last Admin: 12/21/17 08:17 Dose: 40 mg Physical Exam - Constitutional Appears: No Acute Distress, Chronically Ill - Head Exam Additional comments: small bumps right front temporal area - Eye Exam Eye Exam: Normal appearance, PERRL - ENT Exam ENT Exam: Mucous Membranes Moist, Normal Oropharynx - Neck Exam Neck exam: Positive for: Normal Inspection - Respiratory Exam Respiratory Exam: Decreased Breath Sounds, NORMAL BREATHING PATTERN - Cardiovascular Exam Cardiovascular Exam: REGULAR RHYTHM, +S1, +S2 - GI/Abdominal Exam GI & Abdominal Exam: Normal Bowel Sounds, Soft Additional comments: no tenderness - Extremities Exam Extremities exam: Positive for: pedal pulses present - Back Exam Additional comments: small stage 2 sacral decubiti - Psychiatric Exam Psychiatric exam: Normal Mood - Skin Skin Exam: Dry, Pallor, Warm - Additional Findings Additional findings: Palliative performance scale rating 40 % Results - Vital Signs Recent Vital Signs: Last Vital Signs Temp 97.6 F 12/21/17 12:00 Pulse 86 12/21/17 12:00 Resp 19 12/21/17 12:00 BP 139/73 12/21/17 12:00 Pulse Ox 92 L 12/21/17 10:52 - Labs Result Diagrams: 12/22/17 06:00 12/22/17 06:00 Labs: Laboratory Results - last 24 hr 12/20/17 12/21/17 12/21/17 19:57 07:00 07:00 WBC 4.9 D RBC 2.99 L Hgb 9.6 L Hct 30.4 L MCV 101.7 MCH 32.1 MCHC 31.6 RDW 20.7 H Plt Count 143 MPV 10.0 Gran % 82.0 H Lymph % (Auto) 7.2 L [place] % (Auto) 10.8 H Eos % (Auto) 0.0 L Baso % (Auto) 0.0 Gran # 4.01 Lymph # (Auto) 0.4 L [place] # (Auto) 0.5 Eos # (Auto) 0.0 Baso # (Auto) 0.00 pO2 107 H VBG pH 7.40 VBG pCO2 45.0 VBG HCO3 27.9 VBG Total CO2 29.3 H VBG O2 Sat (Calc) 98.0 H VBG Base Excess 2.5 H VBG Potassium 3.2 L Sodium 138.0 140 Chloride 101.0 99 Glucose 171 H Lactate 2.0 FiO2 21.0 Potassium 3.4 L Carbon Dioxide 29 Anion Gap 15 BUN 15 Creatinine 0.6 L Est GFR ( Amer) > 60 Est GFR (Non-Af Amer) > 60 Random Glucose 171 H Calcium 8.0 L Total Bilirubin 0.9 AST 87 H ALT 53 Alkaline Phosphatase 499 H Total Protein 6.8 Albumin 3.4 Globulin 3.4 Albumin/Globulin Ratio 1.0 L Venous Blood Potassium 3.2 L Assessment & Plan - Assessment and Plan (Free Text) Assessment: 72 year old female with history of metastatic SCLC, HCAP, DM, HTN who suffered a fall at home and is admitted with AMS, right subdural hematoma, deconditioning. The patient is alert oriented, sometimes forgetful. She does remember our previous conversation last month regarding advance care planning. At that time() she completed a POLST directive in which she stipulated she wanted CPR/ intubation. She appointed her son Usman as her health care surrogate. Usman was also made are of benefits and burdens of CPr/intubation. Usman indicated that he would support his mothers wishes. Ms. Ye states that she has not changed her mind and wants to remain full code status at this time. Encouraged to consider getting help at home. Psychosocial support provided. Time spent with patient in goals of care and advance care planning discussion, 30 minutes Plan: Subdural hematoma: NSAID/anticoagulants on hold. Neuro consult pending. SCLC: Oncology following. Pain Management: Morphine Sulfate 45 mg ER twice daily, Morphine Sulfate 15 mg IR every 6 hours as needed, continue bowel regimen. Refer to for possible home spencer services
[2017-12-21] MEDS: Morphine 15 mg Immediate Release Tab PO PRN (17:18)
--- NOTE | 2017-12-22 00:20 | CON ---
Copied To: Angelito Li MD Attending MD: Angelito Li MD DATE: 12/21/2017 HISTORY OF PRESENT ILLNESS: This is a 72-year-old female with past medical history of small cell lung CA and patient came to hospital for intermittent altered mental state and fall and as per family, patient at the bedside and fell and complained of a constant right-sided back pain. Denies any nausea, vomiting. Called to evaluate the patient. ALLERGIC: SULFA. PHYSICAL EXAMINATION: VITAL SIGNS: Blood pressure 114/52. HEENT: Normocephalic, atraumatic. NECK: Supple. NEUROLOGIC: Awake, orientated to self. Cranial nerves II through XII were tested. Pupils reactive. Spontaneous movement of all the extremities noted. Deep tendon reflexes are 1+. Cerebellar gait deferred. IMPRESSION AND PLAN: This is a 72-year-old female with history of lung cancer with extensive hepatic metastasis and bone metastasis and came with altered mental status and mechanical fall. Patient had CAT scan of the head, was done at the time of the admission and small subdural hematoma was noted, right frontotemporal subdural hematoma and seen by neurosurgeon, Dr. Pineda. Need to do a medical management and continue present management. We will follow up. Angelito Li MD
--- NOTE | 2017-12-22 01:59 | CON ---
Copied To: Robert Eastman MD Attending MD: Robert Eastman MD DATE: 12/21/2017 PULMONARY CONSULTATION REFERRING PHYSICIAN: Dr. Puente REASON FOR CONSULTATION: Unresectable lung cancer, chronic obstructive lung disease, may have sleep apnea syndrome. HISTORY OF PRESENT ILLNESS: This is a 72-year-old female, well known to me from previous admission, has a known lung cancer with metastatic disease to liver and spine, history of radiation to spine, also had a radiation to lungs as well as chemotherapy, also retroperitoneal lymphadenopathy, chronic lung disease, hypertension, diabetes, history of GERD, insomnia, anxiety disorder. Presently was home herself, son just left for work, so she has a mechanical fall, hit her head on the floor, denying any loss of consciousness. Also has some low back pain which is not new. She was brought into emergency room and found to have a subdural hematoma with skull bleeding, presently sitting up in a chair and feels okay. Has upper shoulder stiffness, not much cough, short of breath with exertion. No nausea, no vomiting, no diarrhea. No leg pain. PAST MEDICAL HISTORY: As per history of present illness. FAMILY HISTORY: No significant cardiopulmonary disease reported. ALLERGIES: TO SULFA. SOCIAL HISTORY: Former smoker. Denies any alcohol use. MEDICATIONS: She is on Colace 100 mg twice a day, desvenlafaxine mg daily, DuoNeb every 6 hour [id number], mag oxide 400 mg twice a day, morphine extended release 45 mg twice a day, also morphine immediate release 15 mg every 6 hours p.r.n., Protonix 40 mg daily, Reglan 5 mg before meals and at bedtime, Tylenol p.r.n. basis. REVIEW OF SYSTEMS: Mild headache. No rhinitis. No cough, short of breath with exertion. No chest pain. No nausea, no vomiting, no diarrhea. No significant leg swelling. Has upper shoulder and upper back some stiffness. PHYSICAL EXAMINATION: GENERAL: No acute distress. VITAL SIGNS: Temperature is 98, heart rate is 86, respiratory rate is 20, blood pressure 139/73, pulse ox of 92% on room air. HEENT: Moist mucous membranes. Small oral cavity. Crowded airway. NECK: Supple. No JVD. Right scapular area has subcutaneous hematoma. LUNGS: Have fair airflow with rhonchi. HEART: S1 and S2. ABDOMEN: Soft, nontender, no organomegaly. EXTREMITIES: No edema. NEUROLOGIC: Awake and alert, follows simple commands. LABORATORY DATA: Shows hemoglobin 9.6, hematocrit 30.4, WBC 4.9, platelet is 143. Has VBG done yesterday showed pH 7.40, pCO2 of 45, O2 of 107 on room air. Sodium 140, potassium 3.4, chloride 99, bicarbonate 29, BUN 15, creatinine 0.6, glucose 171, calcium 8, AST 87, ALT 53, alk phos is 499. Albumin is 3.4. Urinalysis shows wbc's 20-25. Has a CAT scan of the head done on admission in ER which shows left temporal convexity subdural hematoma, focal small area of the right frontal and frontotemporal dural base high-density with areas of high density in the overlying skull, which may represent dural base metastasis versus focal area of epidural hematoma. Has a CT scan of the abdomen and pelvis done which shows extensive hepatic metastatic disease, suspected widespread osseous metastasis, increasing kiran hepatis lymphadenopathy, lymphadenopathy, right pleural effusion. Also the cervical spine CT done, which shows no acute fracture, intrathoracic finding will be reporting CT angio. IMPRESSION AND PLAN: Status post mechanical fall with small subdural hematoma, also have scapular bleed, chronic obstructive lung disease, depression, unresectable lung cancer, metastatic disease to liver, spine and abdominal lymphadenopathy. Agree with the present treatment. Avoid anticoagulation at present time, though she is a high risk for thromboembolic disease, may use sequential compression devices to lower extremity. Gastric prophylaxis. Continue nebulizer treatment. I had a long discussion with the patient and her son at bedside about her chances of fall especially with on opiates. The patient and family expressed understanding. Continue supplemental oxygen, bronchodilator. Oncology followup. Thank you and we will follow with you. Robert Eastman MD
[2017-12-22] MEDS: Albuterol-Ipratrop 3 mg / 0.5 (3 ml) UD IH SCH ×4 (02:00→20:13)
[2017-12-22 06:20] VITALS: RESP 20
[2017-12-22 07:05] LABS: BASO # 0.01 K/mm3 (0.0-2.0); BASO % 0.2 % (0.0-3.0); GRAN # 3.5 (1.4-6.5); GRAN % 81.8 % (50.0-68.0); HEMOGLOBIN 9.3 g/dL (12.0-16.0); LYMPH # 0.4 (1.2-3.4); LYMPH % 8.2 % (22.0-35.0); MEAN CELL VOLUME 102.7 fl (80.0-105.0); MEAN CORPUSCULAR HGB CONC 31.1 g/dl (31.0-37.0); MEAN PLATELET VOLUME 9.8 fl (7.0-11.0); MONO # 0.4 (0.1-0.6); MONO % 9.8 % (1.0-6.0); RBC 2.91 10^6/uL (3.5-6.1); RED CELL DISTRIBUTION WIDTH 20.9 % (11.5-14.5); WHITE BLOOD COUNT 4.3 10^3/ul (4.5-11.0)
[2017-12-22 07:38] LABS: ALBUMIN 3.4 g/dL (3.0-4.8); ALT/SGPT 54 U/L (7-56); AST/SGOT 91 U/L (14-36); BLOOD UREA NITROGEN 12 mg/dL (7-21); CALCIUM 8.3 mg/dL (8.4-10.5); GFR NON-AFRICAN AMERICAN > 60
[2017-12-22] MEDS: Insulin Lispro (humaLOG) LOW Coverage SC SCH ×4 (08:56→22:15)
[2017-12-22] MEDS: Pantoprazole 40 mg EC Tab PO SCH (08:57)
--- NOTE | 2017-12-22 09:59 | CP.PCM.PN ---
Subjective - Date & Time of Evaluation Date of Evaluation: 12/22/17 Time of Evaluation: 09:57 - Subjective Subjective: Heme/Onc Progress Note for Dr. Puente -- Terell Lam DO PGY2 Patient seen and examined at bedside. No acute overnight events. Patient states that she is nauseous and has been constipated or 2 days despite laxative medications given. Patient has history of severe constipation in the past. Patient also complains of SOB, chronic right sided lower back pain, and mild diffuse abdominal tenderness. Patient denied CP, vomiting, diarrhea, VASQUES, dizziness, numbness, tingling, fever or chills. Objective - Vital Signs/Intake and Output Vital Signs (last 24 hours): Temp Pulse Resp BP Pulse Ox 98.1 F 91 H 20 148/86 94 L 12/22/17 06:00 12/22/17 06:00 12/22/17 06:00 12/22/17 06:00 12/22/17 06:00 Intake and Output: 12/22/17 12/22/17 06:59 18:59 Intake Total 1164 Balance 1164 - Medications Medications: Current Medications Acetaminophen (Tylenol 325mg Tab) 650 mg PO Q4H PRN PRN Reason: Fever >100.5 F Albuterol/Ipratropium (Duoneb 3 Mg/0.5 Mg (3 Ml) Ud) 3 ml IH [id number] [facility] Last Admin: 12/22/17 07:39 Dose: 3 ml Dextrose (Dextrose 50% Inj) 0 ml IV STAT PRN; Protocol PRN Reason: Hypoglycemia Protocol Docusate Sodium (Colace) 100 mg PO BID [facility] Last Admin: 12/21/17 17:19 Dose: 100 mg Dextrose (Dextrose 5% In Water 1000 Ml) 1,000 mls @ 0 mls/hr IV .Q0M PRN; Protocol; Per Protocol PRN Reason: Hypoglycemia Protocol Insulin Human Lispro (Humalog Low) 0 units SC [facility] PRN Reason: Protocol Last Admin: 12/22/17 08:56 Dose: 1 unit Magnesium Oxide (Mag-Ox) 400 mg PO BID [facility] Last Admin: 12/21/17 17:19 Dose: 400 mg Metoclopramide HCl (Reglan) 5 mg PO [facility] Last Admin: 12/22/17 08:57 Dose: 5 mg Morphine Sulfate (Morphine Extended Release Tab) 45 mg PO Q12 [facility] Last Admin: 12/21/17 21:14 Dose: 45 mg Morphine Sulfate (Morphine Immediate Release Tab) 15 mg PO Q6 PRN PRN Reason: Pain, moderate (4-7) Last Admin: 12/21/17 17:18 Dose: 15 mg Desvenlafaxine [ Desvenlafaxine Er] 50 Mg 150 mg PO DAILY [facility] Last Admin: 12/21/17 14:53 Dose: 150 mg Pantoprazole Sodium (Protonix Ec Tab) 40 mg PO ACB [facility] Last Admin: 12/22/17 08:57 Dose: 40 mg Potassium Phos/Sodium Phos (Neutra-Phos) 1 pkt PO TID [facility] Stop: 12/22/17 18:01 - Labs Labs: 12/22/17 06:00 12/22/17 06:00 - Constitutional Appears: No Acute Distress - Head Exam Additional comments: soft tissue mass noted on right frontal area; no ecchymoses, lesions, or trauma noted otherwise. - Eye Exam Eye Exam: Normal appearance - ENT Exam ENT Exam: Normal Exam - Neck Exam Neck Exam: Normal Inspection - Respiratory Exam Respiratory Exam: Clear to Ausculation Bilateral. absent: Rales, Rhonchi, Wheezes - Cardiovascular Exam Cardiovascular Exam: RRR, +S1, +S2. absent: Gallop, Rubs, Murmur - GI/Abdominal Exam GI & Abdominal Exam: Soft, Hypoactive Bowel Sounds. 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 Patient was admitted due a thin left temporal subdural hematoma with focal areas of hyperdensity consistent with metastatic disease versus epidural hematomas found on head CT. Plan: - Head CT showed thin left temporal covexity subdural hematoma and small areas of right front and frontotemporal dural based densities representing metastasis vs. epidural hematoma - Cervical CT shows no acute fracture - Chest CT showed no PE, moderate right pleural effusion, neoplasm vs atelectasis along superior right mediastinal border - Abd/pelvis CT showed extensive hepatic metastasis, widespread osseous metastasis, and increasing kiran-hepatis lymphandenopathy - Abdominal x-ray ordered to assess constipation - Continue colace, added miralax - NO anticoagulation or NSAIDs at this time - No surgical intervention at this time per Neurosurgery - Neurology consulted, recs appreciated - Pulmonology consulted, recs appreciated - GI consulted - Palliative consulted for goals of care - patient is FULL CODE - PT/OT recs subacute rehab on discharge - Social work consulted - pending subacute rehab placement - Cont home pain medication regimen - Cont duoneb due to h/o COPD - ISS and accuchecks ACHS due to h/o DM - Protonix for GI PPx - SCDs for DVT PPx Case discussed with attending. Terell Lam, DO PGY2
[2017-12-22] MEDS ORDERED: Enoxaparin 40 mg Syringe SC SCH (10:00)
[2017-12-22] MEDS: Potassium & Sodium Phosphate PO SCH ×2 (10:01→14:09)
[2017-12-22] MEDS: Magnesium Oxide 400 mg Tab UD PO SCH ×2 (10:01→17:58)
[2017-12-22] MEDS: Morphine 15 mg SR Tab PO SCH ×2 (10:01→21:45)
[2017-12-22] MEDS: Desvenlafaxine [Desvenlafaxine Er] 50 MG PO SCH (10:03)
[2017-12-22] MEDS ORDERED: POLYETHYLENE GLYCOL 3350 17 GM/Dose PACKET PO SCH (11:00)
--- NOTE | 2017-12-22 11:03 | RAD ---
Date of service: 12/22/2017 HISTORY: constipation COMPARISON: No prior. FINDINGS: BOWEL: Normal. No obstruction. No free air. Mild fecal retention BONES: Normal. OTHER FINDINGS: None. IMPRESSION: No active disease.
[2017-12-22] MEDS ORDERED: POLYETHYLENE GLYCOL 3350 17 GM/Dose PACKET PO PRN (14:54)
--- NOTE | 2017-12-22 15:58 | CP.PCM.CON ---
<Kael Vega - Last Filed: 12/23/17 07:29> History of Present Illness - History of Present Illness History of Present Illness: GI Consult Note for Dr. Carlos's Service - Stefanie PGY2 Reason for Consult: Constipation Mrs. 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 GI was consulted for constipation. Patient reports that she had not had a BM since her admission, two days ago, until last night and then again later this morning. She reports that she normally has at least one BM daily and when she didn't have one for two days, she became concerned and expressed this to her PMD. She denies that her two BM's were difficult to pass and endorses normal caliber, color and consistency. Of note, patients PMD started Miralax BID. She denies any recent illness, sick contacts, fevers, chills, headache, chest pain, abdominal pain, N/V/D/C, hematemesis, melena, hematochezia, changes in urine output, or skin changes. PMH: As stated above PSH: Right knee replacement, Noam Cath, and Family History: Non-contributory Social History: Former smoker with 50 pack year smoking history; Social alcohol use; Denies illicit drug use Allergies: Sulfa Home Medications: As per JUN PMD: Dr. Puente/ Dr. Jarrett Review of Systems - Review of Systems Review of Systems: As stated in HPI, otherwise negative Past Patient History - Infectious Disease Hx of Infectious Diseases: None - Tetanus Immunizations Tetanus Immunization: Unknown - Past Medical History & Family History Past Medical History?: Yes - Past Social History Smoking Status: Former Smoker - CARDIAC Hx Congestive Heart Failure: Yes Hx Hypercholesterolemia: Yes Hx Hypertension: Yes - PULMONARY Hx Asthma: Yes Hx Chronic Obstructive Pulmonary Disease (COPD): Yes Hx Pneumonia: Yes - NEUROLOGICAL Hx Neurological Disorder: No - HEENT Hx HEENT Problems: Yes (glasses) - RENAL Hx Chronic Kidney Disease: No - ENDOCRINE/METABOLIC Hx Diabetes Mellitus Type 2: Yes - HEMATOLOGICAL/ONCOLOGICAL Hx Anemia: Yes Hx Cancer: Yes (Lung CA w/ mets to liver and bone) Hx Chemotherapy: Yes (as per patient she finished tx) Hx Metastesis: Yes - INTEGUMENTARY Hx Dermatological Problems: Yes Other/Comment: SACRAL PRESSURE ULCER stg 2 1cm x 1cm wound bed is red/pink surounded by reddish skin optifoam intact, multiple purple and red skin discolorations to both legs and arms, thick long hard toenails, radiation markings to abd and chest - MUSCULOSKELETAL/RHEUMATOLOGICAL Hx Arthritis: Yes Hx Back Pain: Yes Hx Falls: Yes Hx Unsteady Gait: Yes - GASTROINTESTINAL Hx Gastrointestinal Disorders: Yes (constipation/ nausea) - GENITOURINARY/GYNECOLOGICAL Hx Urinary Tract Infection: Yes - PSYCHIATRIC Hx Anxiety: Yes Hx Depression: Yes - SURGICAL HISTORY Hx Surgeries: Yes () Hx Appendectomy: Yes Hx Orthopedic Surgery: Yes - ANESTHESIA Hx Anesthesia Reactions: No Hx Malignant Hyperthermia: No Meds Allergies/Adverse Reactions: Allergies Allergy/AdvReac Type Severity Reaction Status Date / Time Sulfa (Sulfonamide Allergy ANAPHYLAXIS Verified 12/20/17 14:49 Antibiotics) - Medications Medications: Current Medications Acetaminophen (Tylenol 325mg Tab) 650 mg PO Q4H PRN PRN Reason: Fever >100.5 F Albuterol/Ipratropium (Duoneb 3 Mg/0.5 Mg (3 Ml) Ud) 3 ml IH [id number] [facility] Last Admin: 12/22/17 13:57 Dose: 3 ml Alprazolam (Xanax) 0.25 mg PO TID PRN; Protocol PRN Reason: Anxiety Stop: 12/29/17 18:01 Dextrose (Dextrose 50% Inj) 0 ml IV STAT PRN; Protocol PRN Reason: Hypoglycemia Protocol Docusate Sodium (Colace) 100 mg PO BID [facility] Last Admin: 12/22/17 10:00 Dose: 100 mg Dextrose (Dextrose 5% In Water 1000 Ml) 1,000 mls @ 0 mls/hr IV .Q0M PRN; Protocol; Per Protocol PRN Reason: Hypoglycemia Protocol Insulin Human Lispro (Humalog Low) 0 units SC [facility] PRN Reason: Protocol Last Admin: 12/22/17 12:11 Dose: 2 unit Magnesium Oxide (Mag-Ox) 400 mg PO BID [facility] Last Admin: 12/22/17 10:01 Dose: 400 mg Metoclopramide HCl (Reglan) 5 mg PO [facility] Last Admin: 12/22/17 12:11 Dose: 5 mg Morphine Sulfate (Morphine Extended Release Tab) 45 mg PO Q12 [facility] Last Admin: 12/22/17 10:01 Dose: 45 mg Morphine Sulfate (Morphine Immediate Release Tab) 15 mg PO Q6 PRN PRN Reason: Pain, moderate (4-7) Last Admin: 12/21/17 17:18 Dose: 15 mg Desvenlafaxine [ Desvenlafaxine Er] 50 Mg 150 mg PO DAILY [facility] Last Admin: 12/22/17 10:03 Dose: 150 mg Pantoprazole Sodium (Protonix Ec Tab) 40 mg PO ACB [facility] Last Admin: 12/22/17 08:57 Dose: 40 mg Polyethylene Glycol (Miralax) 17 gm PO BID PRN PRN Reason: Constipation Sucralfate (Carafate Oral Susp) 1 gm PO 0600,1600 [facility] Physical Exam - Constitutional Appears: Non-toxic, No Acute Distress - Head Exam Head Exam: ATRAUMATIC, NORMOCEPHALIC - Eye Exam Eye Exam: EOMI, Normal appearance - ENT Exam ENT Exam: Mucous Membranes Moist - Neck Exam Neck exam: Positive for: Full Rom - Respiratory Exam Respiratory Exam: Clear to Auscultation Bilateral, NORMAL BREATHING PATTERN. absent: Accessory Muscle Use, Chest Wall Tenderness, Decreased Breath Sounds, Prolonged Expiratory Phase, Rales, Rhonchi, Wheezes, Respiratory Distress, Stridor - Cardiovascular Exam Cardiovascular Exam: REGULAR RHYTHM, RRR, +S1, +S2. absent: Bradycardia, Tachycardia, Clicks, Diastolic murmur, Gallop, Irregular Rhythm, JVD, Rubs, +S4 , Systolic Murmur - GI/Abdominal Exam GI & Abdominal Exam: Normal Bowel Sounds, Soft. absent: Bruit, Diminished Bowel Sounds, Distended, Firm, Guarding, Hernia, Hyperactive Bowel Sounds, Hypoactive Bowel Sounds, Mass, Organomegaly, Pulsatile Mass, Rebound, Rigid, Tenderness - Extremities Exam Extremities exam: Positive for: normal capillary refill, pedal pulses present - Neurological Exam Neurological exam: Alert, Oriented x3 - Psychiatric Exam Psychiatric exam: Normal Affect, Normal Mood - Skin Skin Exam: Dry, Intact, Normal Color, Warm Results - Vital Signs Recent Vital Signs: Last Vital Signs Temp 97.6 F 12/22/17 11:48 Pulse 91 H 12/22/17 11:48 Resp 20 12/22/17 11:48 BP 137/62 12/22/17 11:48 Pulse Ox 94 L 12/22/17 06:00 - Labs Result Diagrams: 12/22/17 06:00 12/22/17 06:00 Labs: Laboratory Results - last 24 hr 12/21/17 12/21/17 12/21/17 00:47 07:13 12:02 WBC RBC Hgb Hct MCV MCH MCHC RDW Plt Count MPV Gran % Lymph % (Auto) [place] % (Auto) Eos % (Auto) Baso % (Auto) Gran # Lymph # (Auto) [place] # (Auto) Eos # (Auto) Baso # (Auto) Sodium Potassium Chloride Carbon Dioxide Anion Gap BUN Creatinine Est GFR ( Amer) Est GFR (Non-Af Amer) POC Glucose (mg/dL) 189 H 186 H 173 H Random Glucose Calcium Phosphorus Magnesium Total Bilirubin AST ALT Alkaline Phosphatase Total Protein Albumin Globulin Albumin/Globulin Ratio 12/21/17 12/21/17 12/22/17 16:59 21:34 06:00 WBC 4.3 L RBC 2.91 L Hgb 9.3 L Hct 29.9 L MCV 102.7 MCH 32.0 MCHC 31.1 RDW 20.9 H Plt Count 128 MPV 9.8 Gran % 81.8 H Lymph % (Auto) 8.2 L [place] % (Auto) 9.8 H Eos % (Auto) 0.0 L Baso % (Auto) 0.2 Gran # 3.50 Lymph # (Auto) 0.4 L [place] # (Auto) 0.4 Eos # (Auto) 0.0 Baso # (Auto) 0.01 Sodium Potassium Chloride Carbon Dioxide Anion Gap BUN Creatinine Est GFR ( Amer) Est GFR (Non-Af Amer) POC Glucose (mg/dL) 219 H 206 H Random Glucose Calcium Phosphorus Magnesium Total Bilirubin AST ALT Alkaline Phosphatase Total Protein Albumin Globulin Albumin/Globulin Ratio 12/22/17 12/22/17 06:00 07:17 WBC RBC Hgb Hct MCV MCH MCHC RDW Plt Count MPV Gran % Lymph % (Auto) [place] % (Auto) Eos % (Auto) Baso % (Auto) Gran # Lymph # (Auto) [place] # (Auto) Eos # (Auto) Baso # (Auto) Sodium 141 Potassium 4.3 Chloride 103 Carbon Dioxide 28 Anion Gap 14 BUN 12 Creatinine 0.6 L Est GFR ( Amer) > 60 Est GFR (Non-Af Amer) > 60 POC Glucose (mg/dL) 193 H Random Glucose 175 H Calcium 8.3 L Phosphorus 1.9 L Magnesium 2.1 Total Bilirubin 0.8 AST 91 H ALT 54 Alkaline Phosphatase 564 H Total Protein 6.6 Albumin 3.4 Globulin 3.2 Albumin/Globulin Ratio 1.0 L Assessment & Plan - Assessment and Plan (Free Text) Assessment: 72 year old female with a past medical history significant for Stage IV metastatic small cell lung cancer with mets to the spine, liver, retroperitoneal nodes; COPD, HTN, DM, tobacco abuse, GERD, and insomnia who presented with intermittent confusion and multiple mechanical falls at home.. GI was consulted for constipation. Patient had two BM's since consultation was placed. Plan: -Patient with two normal caliber BM's since the time of consultation -Continue Miralax BID and Colace -Continue Reglan -Heart Healthy Moderate Carbohydrate Consistency Diet -Continue PPI and Carafate Patient seen and case discussed with attending, Dr. Carlos. - Date & Time Date: 12/22/17 Time: 15:53 <Avinash Carlos V - Last Filed: 12/24/17 00:06> Results - Vital Signs Recent Vital Signs: Last Vital Signs Temp 97.5 F L 12/23/17 08:48 Pulse 92 H 12/23/17 08:48 Resp 20 12/23/17 08:48 BP 140/67 12/23/17 08:48 Pulse Ox 95 12/23/17 08:48 - Labs Result Diagrams: 12/23/17 06:30 12/23/17 06:30 Labs: Laboratory Results - last 24 hr 12/22/17 12/22/17 12/23/17 16:45 21:11 06:30 WBC 4.2 L RBC 2.91 L Hgb 9.2 L Hct 30.2 L MCV 103.8 MCH 31.6 MCHC 30.5 L RDW 21.3 H Plt Count 117 L MPV 9.5 Gran % 79.1 H Lymph % (Auto) 10.0 L [place] % (Auto) 10.5 H Eos % (Auto) 0.2 L Baso % (Auto) 0.2 Gran # 3.32 Lymph # (Auto) 0.4 L [place] # (Auto) 0.4 Eos # (Auto) 0.0 Baso # (Auto) 0.01 Sodium Potassium Chloride Carbon Dioxide Anion Gap BUN Creatinine Est GFR ( Amer) Est GFR (Non-Af Amer) POC Glucose (mg/dL) 248 H 126 H Random Glucose Calcium Total Bilirubin AST ALT Alkaline Phosphatase Total Protein Albumin Globulin Albumin/Globulin Ratio 12/23/17 12/23/17 12/23/17 06:30 07:22 11:19 WBC RBC Hgb Hct MCV MCH MCHC RDW Plt Count MPV Gran % Lymph % (Auto) [place] % (Auto) Eos % (Auto) Baso % (Auto) Gran # Lymph # (Auto) [place] # (Auto) Eos # (Auto) Baso # (Auto) Sodium 141 Potassium 3.9 Chloride 99 Carbon Dioxide 33 Anion Gap 13 BUN 12 Creatinine 0.5 L Est GFR ( Amer) > 60 Est GFR (Non-Af Amer) > 60 POC Glucose (mg/dL) 155 H 133 H Random Glucose 167 H Calcium 8.6 Total Bilirubin 0.9 AST 149 H D ALT 69 H Alkaline Phosphatase 632 H Total Protein 6.8 Albumin 3.4 Globulin 3.4 Albumin/Globulin Ratio 1.0 L Attending/Attestation - Attestation I have personally seen and examined this patient.: Yes I have fully participated in the care of the patient.: Yes I have reviewed all pertinent clinical information: Yes
[2017-12-22] MEDS: Sucralfate 1 gm/10 ml Oral Susp UD PO SCH (16:00)
--- NOTE | 2017-12-22 22:59 | PN ---
Copied To: Robert Eastman MD Attending MD: Robert Eastman MD DATE: 12/22/2017 REFERRING PHYSICIAN: Dr. Puente SUBJECTIVE: She is lying in the bed, head at 45 degrees. Head discomfort is better. Not much cough. No sputum production. Has a low back pain. No nausea, no dysuria. Has a multiple ecchymotic area to lower extremity. OBJECTIVE GENERAL: In no acute distress. VITAL SIGNS: Temperature is 98, heart rate 91, respiratory rate is 20, blood pressure 137/62, pulse ox 94% room air. HEENT: Moist mucous membranes. Small oral cavity. Crowded airway. NECK: Supple. No JVD. LUNGS: Have a fair airflow with rhonchi. HEART: S1 and S2. ABDOMEN: Soft, nontender, no organomegaly. Low back pain. has tenderness. EXTREMITIES: There is no edema. NEUROLOGIC: Awake and alert, follows simple command. MEDICATIONS: She is on Carafate 1 g twice a day, Colace 100 mg twice a day. She is on desvenlafaxine 150 mg daily, DuoNeb every 6 hour, insulin coverage, mag oxide 400 mg twice a day, MiraLax 17 g twice a day, morphine extended release 45 mg every 12 hour, morphine immediate release 50 mg every 6 hours p.r.n., Protonix 40 mg daily, Reglan 5 mg before meals and at bedtime, Tylenol p.r.n., Xanax 0.25 mg three times a day p.r.n. LABORATORY DATA: Shows hemoglobin 9.3, hematocrit 29.9, WBC 4.3, platelet count is 128. Sodium 141, potassium 4.3, chloride 103, bicarbonate 28, BUN 12, creatinine 0.6, glucose 175, calcium 8.3, phosphorus 1.9, magnesium 2.1, AST is 91, ALT 54, alk phos is 564. Albumin is 3.4. Microbiology, urine culture was negative. Has abdominal x-ray done today which shows no active disease. IMPRESSION AND PLAN: Status post mechanical fall with small subdural hematoma, scapular bleed, chronic obstructive lung disease, depression, unresectable lung cancer, metastasis to the liver, spine and abdomen and lymph node. Case discussed with nursing staff. Requested if we can get Aqua heating pad for her back and right side of the abdomen. Continue bronchodilator. Keep head at 45 degrees. Pain management. Gastric prophylaxis. CT to lower extremity. We will follow with you. Robert Eastman MD
[2017-12-23] MEDS: Morphine 15 mg Immediate Release Tab PO PRN ×3 (01:17→13:00)
[2017-12-23] MEDS: Albuterol-Ipratrop 3 mg / 0.5 (3 ml) UD IH SCH ×3 (01:28→13:58)
[2017-12-23] MEDS: Sucralfate 1 gm/10 ml Oral Susp UD PO SCH (05:50)
[2017-12-23] MEDS: Pantoprazole 40 mg EC Tab PO SCH (06:56)
[2017-12-23 07:13] LABS: BASO # 0.01 K/mm3 (0.0-2.0); BASO % 0.2 % (0.0-3.0); EOS % 0.2 % (1.5-5.0); GRAN # 3.32 (1.4-6.5); GRAN % 79.1 % (50.0-68.0); HEMOGLOBIN 9.2 g/dL (12.0-16.0); LYMPH # 0.4 (1.2-3.4); MEAN CELL VOLUME 103.8 fl (80.0-105.0); MEAN CORPUSCULAR HEMOGLOBIN 31.6 pg (25.0-35.0); MEAN CORPUSCULAR HGB CONC 30.5 g/dl (31.0-37.0); MEAN PLATELET VOLUME 9.5 fl (7.0-11.0); MONO # 0.4 (0.1-0.6); MONO % 10.5 % (1.0-6.0); RBC 2.91 10^6/uL (3.5-6.1); RED CELL DISTRIBUTION WIDTH 21.3 % (11.5-14.5); WHITE BLOOD COUNT 4.2 10^3/ul (4.5-11.0)
[2017-12-23 07:19] LABS: ALBUMIN 3.4 g/dL (3.0-4.8); BLOOD UREA NITROGEN 12 mg/dL (7-21); CALCIUM 8.6 mg/dL (8.4-10.5); GFR NON-AFRICAN AMERICAN > 60
[2017-12-23 07:20] LABS: ALT/SGPT 69 U/L (7-56); AST/SGOT 149 U/L (14-36)
[2017-12-23] MEDS: Insulin Lispro (humaLOG) LOW Coverage SC SCH ×2 (08:33→11:37)
[2017-12-23 08:49] VITALS: BP 140/67; PULSE 92; TEMP 97.5; O2SAT 95
[2017-12-23] MEDS ORDERED: POLYETHYLENE GLYCOL 3350 17 GM/Dose PACKET PO SCH (10:00)
[2017-12-23] MEDS: Morphine 15 mg SR Tab PO SCH (11:03)
[2017-12-23] MEDS: Desvenlafaxine [Desvenlafaxine Er] 50 MG PO SCH (11:04)
[2017-12-23] MEDS: Magnesium Oxide 400 mg Tab UD PO SCH (11:04)
--- NOTE | 2017-12-23 15:55 | DS ---
Copied To: Yosef Reis MD Attending MD: Yosef Reis MD She is being transferred to [facility] for rehab. SUBJECTIVE: The patient is a 72-year-old female, known history of small cell CA with metastasis, had mental status change and fell at home with resultant right frontotemporal subdural hematoma for which she was evaluated by neurosurgeon, Dr. Pineda and neurologist, Dr. Li and is now deemed cleared for transfer to subacute rehab/placement after conversation with her son, Usman regarding his mom's care. The patient is also agreeable to the transfer, which we will do later on this afternoon. She is otherwise in no acute distress except for low back discomfort where she has a sacral decubitus, which is being managed medically. She is otherwise in no acute distress. OBJECTIVE PHYSICAL EXAMINATION: VITAL SIGNS: Temperature 97.5, pulse 92, respirations 20, blood pressure 140/67, pulse ox 95%. HEENT: Unremarkable. The patient is wearing a wig status post hair loss from chemotherapy. NECK: Supple. No nodes. HEART: Regular rate. Occasional ectopic beats. LUNGS: rhonchi. ABDOMEN: Obese, soft, nontender with tenderness to low back the patient reports on moving. EXTREMITIES: No edema. SKIN: Warm and dry. NEUROLOGIC: Awake, alert with her gait compromised. MEDICATIONS: Her discharge medications will be Carafate, Colace, desvenlafaxine, DuoNeb, mag oxide, MiraLax, morphine extended release, morphine immediate release, Protonix, Reglan, Tylenol, Xanax p.r.n. LABORATORY DATA: The patient's labs were done today. White blood cell count of 4.2, hemoglobin 9.2, hematocrit of 30.2, platelet count of 117,000 with a chem metabolic panel showing AST of 149, ALT of 69. Otherwise, normal chem metabolic panel. The patient had a flat plate of her abdomen done yesterday. It was read as no active disease with a gastrointestinal consult with Dr. Carlos with recommendations to continue her MiraLax and Colace with a diabetic diet, carbohydrate consistent diet. ASSESSMENT: The assessment for this patient is that of subdural hematoma, status post fall with mental status change, now improved; gait disturbance; decubitus ulcer of the sacrum; chronic obstructive pulmonary disease; depression; unresectable lung cancer with metastasis to the liver, spine, abdomen; obesity; anxiety; hypertension; diabetes; gastroesophageal reflux disease. PLAN: Plan for this patient will be transfer to subacute rehab at [facility]. No anticoagulation or NSAIDs for the time being as there is no surgical intervention necessary as per Dr. Pineda, Neurosurgery. The patient continues to be a full code after discussion with family and patient despite her poor prognosis. She will continue present medical regimen as listed above with resumptions of chemotherapy in the near future as per Dr. Puente's recommendations as indicated. This is a complex patient with a comprehensive, medically necessary and appropriate visit carried out in excess of 50 minutes with the patient's son spoken to regarding his mother, also with social services coordinator, nursing involved in decision making for discharge home today along with discussion with the consultants as listed above including Dr. Eastman, Pulmonology; Dr. Carlos, Gastrointestinal; Dr. Li, Neurology and Dr. Pineda, Neurosurgery. Prognosis for this patient is guarded. Yosef Reis MD
== END 2017-12-23 15:02 | DRG 86 ==
LOC: ED 14:16 → ERH 19:37 → 2RSO 12-21 00:27 → 3RSO 12-22 15:17
PROVIDERS: ADMIT Family Medicine; ATTEND Family Medicine
DX: S06.5X0A Traumatic subdural hemorrhage without loss of consciousness, initial encounter (principal); C78.7 Secondary malignant neoplasm of liver and intrahepatic bile duct; C34.90 Malignant neoplasm of unspecified part of unspecified bronchus or lung; C79.51 Secondary malignant neoplasm of bone; C77.2 Secondary and unspecified malignant neoplasm of intra-abdominal lymph nodes; N39.0 Urinary tract infection, site not specified; J44.9 Chronic obstructive pulmonary disease, unspecified; I11.0 Hypertensive heart disease with heart failure; I50.9 Heart failure, unspecified; E11.9 Type 2 diabetes mellitus without complications; L89.152 Pressure ulcer of sacral region, stage 2; K21.9 Gastro-esophageal reflux disease without esophagitis; F41.9 Anxiety disorder, unspecified; F32.9 Major depressive disorder, single episode, unspecified; R62.7 Adult failure to thrive; E78.00 Pure hypercholesterolemia, unspecified; R26.81 Unsteadiness on feet; K59.00 Constipation, unspecified; Z96.651 Presence of right artificial knee joint; Z66 Do not resuscitate; W19.XXXA Unspecified fall, initial encounter; Y92.009 Unspecified place in unspecified non-institutional (private) residence as the place of occurrence of the external cause; Z79.4 Long term (current) use of insulin; Z87.01 Personal history of pneumonia (recurrent); Z87.891 Personal history of nicotine dependence; Z88.2 Allergy status to sulfonamides

== ENCOUNTER 2018-01-03 14:47 | Inpatient (IN) | payer MEDICARE, OTHER ==
[2018-01-03 17:18] LABS: BASO # 0.01 K/mm3 (0.0-2.0); BASO % 0.1 % (0.0-3.0); EOS % 0.1 % (1.5-5.0); HEMOGLOBIN 9.9 g/dL (12.0-16.0); LYMPH # 0.4 (1.2-3.4); LYMPH % 4.7 % (22.0-35.0); MEAN CELL VOLUME 105.6 fl (80.0-105.0); MEAN CORPUSCULAR HEMOGLOBIN 32.4 pg (25.0-35.0); MEAN CORPUSCULAR HGB CONC 30.7 g/dl (31.0-37.0); MEAN PLATELET VOLUME 10.3 fl (7.0-11.0); MONO # 0.5 (0.1-0.6); MONO % 5.1 % (1.0-6.0); PLATELET COUNT 79 10^3/uL (120.0-450.0); RBC 3.06 10^6/uL (3.5-6.1); WHITE BLOOD COUNT 9.3 10^3/ul (4.5-11.0)
[2018-01-03 17:23] LABS: INR 1.21; PARTIAL THROMBOPLASTIN TIME 21.2 Seconds (25.1-36.5); PROTHROMBIN TIME 13.8 SECONDS (9.4-12.5)
[2018-01-03 17:35] LABS: ALB/GLOB RATIO 0.9 (1.1-1.8); ALBUMIN 3.1 g/dL (3.0-4.8); ALT/SGPT 70 U/L (7-56); AST/SGOT 154 U/L (14-36); BLOOD UREA NITROGEN 12 mg/dL (7-21); CALCIUM 8.1 mg/dL (8.4-10.5); GFR NON-AFRICAN AMERICAN > 60; LIPASE 97 U/L (23-300)
--- NOTE | 2018-01-03 17:35 | RAD ---
Date of service: 01/03/2018 HISTORY: weakness COMPARISON: 11/21/2017 single-view chest 12/20/2017 CT thorax for pulmonary embolism FINDINGS: LUNGS: Persistent right lower lobe infiltrate, large right pleural effusion. PLEURA: No significant pleural effusion identified, no pneumothorax apparent. CARDIOVASCULAR: No radiographic findings to suggest acute or significant cardiovascular disease. Venous access catheter in stable, satisfactory position. OSSEOUS STRUCTURES: No significant abnormalities. VISUALIZED UPPER ABDOMEN: Normal. OTHER FINDINGS: None. IMPRESSION: Row lower lobe infiltrate/right pleural effusion similar findings identified on prior studies.
[2018-01-03 17:36] LABS: TROPONIN I 0.02 ng/mL
--- NOTE | 2018-01-03 17:39 | ED PDOC ---
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 Per halfway patient also with right sided upper abdominal pain. Patient denies chest pain. pt denies dizziness. pt states she is forgetful recently. pt denies fever/chill. pt denies headache. no vomiting/diarrhea. no other complaints. Past Medical History - Provider Review Nursing Documentation Reviewed: Yes - Travel History Have you recently traveled outside [place] w/in the past 3 mons?: No - Infectious Disease Hx of Infectious Diseases: None - Tetanus Immunization Tetanus Immunization: Unknown - Reproductive Menopause: No - Cardiac Hx Congestive Heart Failure: Yes Hx Hypertension: Yes - Pulmonary Hx Asthma: Yes Hx Chronic Obstructive Pulmonary Disease (COPD): Yes Hx Pneumonia: Yes - Neurological Hx Neurological Disorder: No - HEENT Hx HEENT Disorder: Yes (glasses) - Renal Hx Renal Disorder: No - Endocrine/Metabolic Hx Diabetes Mellitus Type 2: Yes - Hematological/Oncological Hx Anemia: Yes Hx Cancer: Yes (Lung CA w/ mets to liver and bone) Hx Chemotherapy: Yes (as per patient she finished tx) Hx Metastasis: Yes - Integumentary Hx Dermatological Disorder: Yes Other/Comment: SACRAL PRESSURE ULCER stg 2 1cm x 1cm wound bed is red/pink surounded by reddish skin optifoam intact, multiple purple and red skin discolorations to both legs and arms, thick long hard toenails, radiation markings to abd and chest - Musculoskeletal/Rheumatological Hx Arthritis: Yes Hx Back Pain: Yes Hx Falls: Yes Hx Unsteady Gait: Yes - Gastrointestinal Hx Gastrointestinal Disorders: Yes (constipation/ nausea) - Genitourinary/Gynecological Hx Urinary Tract Infection: Yes - Psychiatric Hx Anxiety: Yes Hx Depression: Yes Hx Substance Use: No - Surgical History Hx Appendectomy: Yes Hx Orthopedic Surgery: Yes - Anesthesia Hx Anesthesia Reactions: No Hx Malignant Hyperthermia: No Family/Social History - Physician Review Nursing Documentation Reviewed: Yes Family/Social History: Unknown Family HX Smoking Status: Former Smoker Hx Alcohol Use: No Hx Substance Use: No Allergies/Home Meds Allergies/Adverse Reactions: Allergies Sulfa (Sulfonamide Antibiotics) Allergy (Verified 12/20/17 14:49) ANAPHYLAXIS Home Medications: Home Meds Medication Instructions Recorded Confirmed Fentanyl [Duragesic Patch] 25 mcg TOP Q72 01/03/18 01/03/18 Insulin Lispro-LOW [humALOG LOW] 100 units SC ACHS 01/03/18 01/03/18 Review of Systems - Review of Systems Constitutional: Fatigue. absent: Fevers Respiratory: absent: SOB, Cough Cardiovascular: absent: Chest Pain Gastrointestinal: Abdominal Pain. absent: Constipation, Diarrhea, Nausea, Vomiting Genitourinary Female: absent: Dysuria Musculoskeletal: Back Pain. absent: Arthralgias Neurological: absent: Headache Psychiatric: absent: Anxiety, Depression Physical Exam Vital Signs Reviewed: Yes Vital Signs Temp Pulse Resp BP Pulse Ox 01/03/18 17:41 92 H 22 130/78 94 L 01/03/18 14:48 98.1 F 98 H 18 141/83 99 Temperature: Afebrile Blood Pressure: Normal Pulse: Regular Respiratory Rate: Normal Appearance: Positive for: Well-Appearing, Non-Toxic, Comfortable Pain Distress: None Mental Status: Positive for: Lethargic - Systems Exam Head: Present: Other (lump noted to frontal scalp; non tender. no step offs. ) Pupils: Present: PERRL Extroacular Muscles: Present: EOMI Mouth: Present: Moist Mucous Membranes Neck: Present: Normal Range of Motion Respiratory/Chest: Present: Rhonchi (noted to right lung base) Cardiovascular: Present: Regular Rate and Rhythm. No: Murmurs Abdomen: Present: Tenderness (minimal right sided abdominal tenderness. ), Guarding. No: Rebound Back: Present: Normal Inspection. No: CVA Tenderness, Midline Tenderness, Paraspinal Tenderness Upper Extremity: Present: Normal ROM Lower Extremity: Present: Normal ROM, Other (multiple areas of ecchymosis noted to lower legs bilaterally. ) Neurological: Present: GCS=15, Speech Normal Skin: Present: Warm, Dry, Normal Color Psychiatric: Present: Alert Medical Decision Making ED Course and Treatment: 72yr old female presents today sent in from halfway with right sided abdominal pain and fatigue. cbc; hgb; 9.9 cMp; elevated LFTS trop: 0.02 EKG: Normal sinus rhythm at 100 bpm left axis deviation no ST elevations cxr; + rll infiltrate. blood and urine cultures are pending 01/03/18 17:30 called to beside as patients friend states the patient just took her own pain medication; Pt states she doesnt remember taking the medication right now. 01/03/18 20:28 CT head; FINDINGS: Brain: Again seen is the subdural hematoma in the right frontotemporal region, measuring up to 5 mm in maximum thickness, previously measured 4 mm. Left temporal subdural hematoma measures up to 3 mm in thickness, similar to the prior. Associated soft tissue lesions in the left temporal and right frontal region, similar to the prior. Underlying metastatic lesions not excluded. Evaluation with MRI is recommended. There is moderate diffuse cerebral atrophy present, consistent with this patient's age. Areas of decreased attenuation noted within the periventricular and subcortical white matter likely related to chronic microangiopathic ischemic changes given the patient's stated age. No evidence of intra-parenchymal hematoma. Ventricles: Unchanged. Bones/joints: Normal. No acute fracture. Sinuses: Normal as visualized. No acute sinusitis. Mastoid air cells: Normal as visualized. No mastoid effusion. Soft tissues: See Brain Finding. IMPRESSION: Again seen is the subdural hematoma in the right frontotemporal region, measuring up to 5 mm in maximum thickness, previously measured 4 mm. Left temporal subdural hematoma measures up to 3 mm in thickness, similar to the prior. Associated soft tissue lesions in the left temporal and right frontal region, similar to the prior. Underlying metastatic lesions not excluded. Evaluation with MRI is recommended. ct chest FINDINGS: Tubes, catheters and devices: Right-sided port terminates in the papilla junction. Thyroid: 9 mm nodule in the right thyroid lobe. Lungs: Pleural space: 4 mm nodules in the right lower lobe. Large right pleural effusion with adjacent compressive atelectasis and/or infiltrates. Near complete atelectasis of the right lower lobe. Underlying neoplasm/malignancy not excluded. Small left pleural effusion. Correlate clinically. Heart: See Aorta Finding. Aorta: Atherosclerotic calcification of the aorta. Coronary arterial calcifications. Lymph nodes: Mediastinal lymphadenopathy is noted. For example a precarinal lymph node measures 2.8 x 1.9 cm. Subcarinal lymph node measures 1.6 cm. Right cardiophrenic lymph nodes are noted measuring up to 8 mm in short axis. Right subdiaphragmatic lymph node measures up to 1.9 cm. Lack of intravenous contrast limits evaluation for hilar lymphadenopathy. Bones/joints: Scattered areas of patchy sclerosis in the visualized skeleton, concerning for metastatic disease. Soft tissues: Unremarkable. Liver: Hypodensities in the liver. Refer to the CT abdomen report for additional findings. Other findings: Lack of intravenous contrast limits evaluation for pathology. IMPRESSION: 1. Lack of intravenous contrast limits evaluation for pathology. 2. Large right pleural effusion with adjacent compressive atelectasis and/or infiltrates. Near complete atelectasis of the right lower lobe. Underlying neoplasm/malignancy not excluded. Small left pleural effusion. Correlate clinically. 3. Scattered areas of patchy sclerosis in the visualized skeleton, concerning for metastatic disease. 4. Findings suspicious for metastatic lymphadenopathy in the chest as described above. cat abd/pelvis FINDINGS:FINDINGS: Lower thorax: SEE CT chest report ABDOMEN: Liver: Again seen are multiple hypodense lesions in the liver, concerning for malignancy/metastatic disease. Hepatomegaly. Gallbladder and bile ducts: No calcified stones. No ductal dilation. Pancreas: Pancreas is partially atrophic. Spleen: Normal. No splenomegaly. Adrenals: Left adrenal thickening. Kidneys and ureters: Normal. No hydronephrosis. Stomach and bowel: Apparent thickening of the transverse and descending colon, suspicious for infectious/inflammatory colitis versus ischemic colitis. Correlate clinically. Scattered diverticulosis of the colon. No evidence of diverticulitis. Appendix: No evidence of appendicitis. PELVIS: Bladder: Partially contracted Reproductive: Unremarkable as visualized. ABDOMEN and PELVIS: Intraperitoneal space: Small amount of free fluid in the pelvis. Bones/joints: Scattered sclerotic areas in the visualized skeleton, concerning for malignancy/metastatic disease. Soft tissues: Anasarca. Vasculature: Atherosclerotic calcifications. No abdominal aortic aneurysm. Lymph nodes: Extensive upper abdominal lymphadenopathy concerning for malignancy /metastatic disease. IMPRESSION: 1. Again seen are multiple hypodense lesions in the liver, concerning for malignancy/metastatic disease. Hepatomegaly. 2. Extensive upper abdominal lymphadenopathy concerning for malignancy/ metastatic disease. 3. Small amount of free fluid in the pelvis. 4. Apparent thickening of the transverse and descending colon, suspicious for infectious/inflammatory colitis versus ischemic colitis. Correlate clinically. 5.Scattered sclerotic areas in the visualized skeleton, concerning for malignancy/metastatic disease. pt was started on vancomycin and zosyn for PNA. case discussed with dr. Puente; accepts admission. case discussed with salma; he reviewed images of CT; no intervention at this time base on 4mm-5mm change. case discussed with the science professor dr. Roth; accepts admission to ICU. call placed to surgical specialist nii; discussed results in depth regarding ; thickening of the transverse and descending colon, suspicious for infectious/ inflammatory colitis versus ischemic colitis. she will see patient at beside. impression; PNA, subdural hematoma, , thrombocytopenia, AMS, generalized weakness, Colitis admit to ICU - Lab Interpretations Lab Results: 01/03/18 16:45 01/03/18 16:45 Lab Results 01/03/18 16:45: PT 13.8 H, INR 1.21, APTT 21.2 L 01/03/18 16:45: WBC 9.3 D, RBC 3.06 L, Hgb 9.9 L, Hct 32.3 L, MCV 105.6 H, MCH 32.4, MCHC 30.7 L, RDW 22.0 H, Plt Count 79 L, MPV 10.3, Gran % 90.0 H, Lymph % (Auto) 4.7 L, [place] % (Auto) 5.1, Eos % (Auto) 0.1 L, Baso % (Auto) 0.1, Gran # 8.40 H, Lymph # (Auto) 0.4 L, [place] # (Auto) 0.5, Eos # (Auto) 0.0, Baso # (Auto ) 0.01, Neutrophils % (Manual) 95 H, Lymphocytes % (Manual) 1 L, Monocytes % ( Manual) 4, Nucleated RBC % 1, Platelet Evaluation Low, Large Platelets Present, Polychromasia Slight, Hypochromasia 1+, Anisocytosis (manual) Slight 01/03/18 16:45: Sodium 139, Potassium 3.6, Chloride 99, Carbon Dioxide 34 H, Anion Gap 9 L, BUN 12, Creatinine 0.5 L, Est GFR ( Amer) > 60, Est GFR ( Non-Af Amer) > 60, Random Glucose 181 H, Calcium 8.1 L, Total Bilirubin 1.6 H, AST 154 H, ALT 70 H, Alkaline Phosphatase 879 H D, Lactate Dehydrogenase 3927 H , Total Creatine Kinase 121, Troponin I 0.02 D, Total Protein 6.4, Albumin 3.1 , Globulin 3.3, Albumin/Globulin Ratio 0.9 L, Lipase 97 - RAD Interpretation Radiology Orders: 01/03/18 17:10 CHEST PORTABLE [RAD] Stat 01/03/18 17:29 CHEST,ABDOMEN, PELVIS W/O CONT [CT] Stat HEAD W/O CONTRAST [CT] Stat - Medication Orders Current Medication Orders: Acetaminophen (Tylenol 325mg Tab) 650 mg PO Q6H PRN PRN Reason: Fever >100.4 F Albuterol/Ipratropium (Duoneb 3 Mg/0.5 Mg (3 Ml) Ud) 3 ml IH [id number] Albuterol/Ipratropium (Duoneb 3 Mg/0.5 Mg (3 Ml) Ud) 3 ml IH Q2H PRN PRN Reason: Shortness of Breath Alprazolam (Xanax) 0.25 mg PO TID PRN; Protocol PRN Reason: Anxiety Stop: 01/10/18 19:15 Alprazolam (Xanax) 0.25 mg PO BID KIMMY PRN Reason: Protocol Stop: 01/11/18 10:01 Fentanyl (Duragesic) 1 patch TD Q72 COUNTS INCLUDE 234 BEDS AT THE [facility] Doxycycline Hyclate 100 mg/ (Sodium Chloride) 100 mls @ 100 mls/hr IVPB Q12 KIMMY PRN Reason: Protocol Cefepime HCl (Maxipime 1gm) 1 gm in 100 mls @ 100 mls/hr IVPB Q12 KIMMY PRN Reason: Protocol Morphine Sulfate (Morphine Immediate Release Tab) 15 mg PO Q6 PRN PRN Reason: Pain, moderate (4-7) Ondansetron HCl (Zofran Inj) 4 mg IVP Q6H PRN PRN Reason: Nausea/Vomiting Pantoprazole Sodium (Protonix Ec Tab) 40 mg PO 0630 COUNTS INCLUDE 234 BEDS AT THE [facility] Polyethylene Glycol (Miralax) 17 gm PO DAILY COUNTS INCLUDE 234 BEDS AT THE [facility] Discontinued Medications Vancomycin HCl (Vancomycin 1gm) 1 gm in 250 mls @ 167 mls/hr IVPB STAT STA PRN Reason: Protocol Stop: 01/03/18 19:45 Piperacillin Sod/Tazobactam Sod (Zosyn 3.375 In Ns 100ml) 100 mls @ 200 mls/hr IVPB STAT STA PRN Reason: Protocol Stop: 01/03/18 18:45 Last Admin: 01/03/18 18:46 Dose: 200 mls/hr eMAR Start Stop Document 01/03/18 18:46 [employer]OR [employer] (Rec: 01/03/18 18:46 INSPECTOR [employer]LECT[employer] [id number]) Intravenous Solution Start Date 01/03/18 Start Time 18:46 Disposition/Present on Arrival - Present on Arrival Any Indicators Present on Arrival: No History of DVT/PE: No History of Uncontrolled Diabetes: No Urinary Catheter: No History of Decub. Ulcer: No History Surgical Site Infection Following: None - Disposition Have Diagnosis and Disposition been Completed?: Yes Diagnosis: SDH (subdural hematoma), Pneumonia, General weakness, Colitis, Thrombocytopenia Disposition: HOSPITALIZED Disposition Time: 20:25 Patient Plan: ICU Patient Problems: Current Active Problems Problem Status Onset General weakness Acute Pneumonia Acute SDH (subdural hematoma) Acute Condition: CRITICAL Discharge Instructions (ExitCare): Weakness (ED) Referrals: Fortino Cain MD [Primary Care Provider] - Follow up with primary Rudy Puente MD [Staff Provider] - Follow up with primary Forms: [facility] [facility] (Slovenian)
[2018-01-03 17:43] LABS: LYMPHOCYTE 1 % (22.0-35.0); MONOCYTE 4 % (1.0-6.0); NEUTROPHIL 95 % (50.0-70.0); NUCLEATED RED BLOOD CELL 1 %
[2018-01-03 17:44] LABS: ANISOCYTOSIS SLIGHT; HYPOCHROMIA 1+; LARGE PLATELETS PRESENT; PLATELET ESTIMATE LOW (NORMAL); POLYCHROMASIA SLIGHT
[2018-01-03] MEDS ORDERED: Vancomycin 1gm in NS 250ml 1 GM/250 ML BAG IVPB STA (18:16)
[2018-01-03] MEDS ORDERED: Piperacillin/Tazobact 3.375 gm 100 ML IVPB STA (18:16)
[2018-01-03] MEDS ORDERED: Albuterol-Ipratrop 3 mg / 0.5 (3 ml) UD IH PRN (19:18)
--- NOTE | 2018-01-03 20:27 | CARD ---
APPROVED REPORT Date of service: 01/03/2018 EKG Measurement Heart [id number] <Conclusion> Normal sinus rhythm Left axis deviation Left ventricular hypertrophy with QRS widening Abnormal ECG
[2018-01-03] MEDS: Albuterol-Ipratrop 3 mg / 0.5 (3 ml) UD IH SCH (20:51)
[2018-01-03 21:48] LABS: PH,URINE 6.5 (4.7-8.0); URINE APPEARANCE CLEAR (CLEAR); URINE BILIRUBIN NEGATIVE (NEGATIVE); URINE BLOOD TRACE-INTACT (NEGATIVE); URINE COLOR DARK YELLOW (YELLOW); URINE GLUCOSE (UA) NEGATIVE (NEGATIVE); URINE LEUKOCYTE ESTERASE LARGE Leu/uL (NEGATIVE); URINE PROTEIN 30 mg/dL (<30 mg/dL)
[2018-01-03 21:56] LABS: URINE BACTERIA TRACE (NEG); URINE RBC 0 - 2 /hpf (0-2)
[2018-01-03] MEDS ORDERED: Cefepime 1gm in NS 100ml 1 GM/100 ML BAG IVPB SCH (22:00)
[2018-01-03] MEDS: Morphine 15 mg Immediate Release Tab PO PRN (22:37)
--- NOTE | 2018-01-04 01:07 | CP.PCM.CON ---
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 Per son who is present at bedside, patient has been fatigued and has been hallucinating since a mechanical fall two weeks ago. Son states last chemo done in November. At this time patient admits to back pain, chest pain and right sided abdominal pain. She denies SOB, urinary complaints, fevers, chills, nausea, vomiting, headaches, dizziness, numbness/tingling, swelling, recent travel and recent sickness. 12 point ROS noted here, otherwise unremarkable. In the ED, trop was 0.02 and EKG showed normal sinus rhythm at 100 bpm with left axis deviation and no ST changes. CXR revealed RLL infiltrate/pleural effusions similar to prior studies. CT head showed subdural hematoma in the right frontotemporal region, measuring up to 5 mm, previously measured [address] chest showed large right pleural effusion/atelectasis and/or infiltrates. Scattered areas of patchy sclerosis in the visualized skeleton, concerning for metastatic disease. CT abd/pelvis showed multiple hypodense lesions in the liver , concerning for malignancy/metastatic disease. Apparent thickening of the transverse and descending colon, suspicious for infectious/inflammatory colitis versus ischemic colitis. Patient started on vancomycin and zosyn for concern of pneumonia. Per ED note, case discussed with Dr. Pineda; he reviewed images of Head CT and recommended no intervention at this time. Patient will be admitted to the ICU. PMD: Dr. Puente PMH: as above SH: Denies alcohol use and drug use. Former smoker All: Sulfa drugs FH: does not know Code status: Full code , Past Patient History - Infectious Disease Hx of Infectious Diseases: None - Tetanus Immunizations Tetanus Immunization: Unknown - Past Medical History & Family History Past Medical History?: Yes - Past Social History Smoking Status: Former Smoker - CARDIAC Hx Congestive Heart Failure: Yes Hx Hypertension: Yes - PULMONARY Hx Asthma: Yes Hx Chronic Obstructive Pulmonary Disease (COPD): Yes Hx Pneumonia: Yes - NEUROLOGICAL Hx Neurological Disorder: No - HEENT Hx HEENT Problems: Yes (glasses) - RENAL Hx Chronic Kidney Disease: No - ENDOCRINE/METABOLIC Hx Diabetes Mellitus Type 2: Yes - HEMATOLOGICAL/ONCOLOGICAL Hx Anemia: Yes Hx Cancer: Yes (Lung CA w/ mets to liver and bone) Hx Chemotherapy: Yes (as per patient she finished tx) Hx Metastesis: Yes - INTEGUMENTARY Hx Dermatological Problems: Yes Other/Comment: SACRAL PRESSURE ULCER stg 2 1cm x 1cm wound bed is red/pink surounded by reddish skin optifoam intact, multiple purple and red skin discolorations to both legs and arms, thick long hard toenails, radiation markings to abd and chest - MUSCULOSKELETAL/RHEUMATOLOGICAL Hx Arthritis: Yes Hx Back Pain: Yes Hx Falls: Yes Hx Unsteady Gait: Yes - GASTROINTESTINAL Hx Gastrointestinal Disorders: Yes (constipation/ nausea) - GENITOURINARY/GYNECOLOGICAL Hx Urinary Tract Infection: Yes - PSYCHIATRIC Hx Anxiety: Yes Hx Depression: Yes Hx Substance Use: No - SURGICAL HISTORY Hx Appendectomy: Yes Hx Orthopedic Surgery: Yes - ANESTHESIA Hx Anesthesia Reactions: No Hx Malignant Hyperthermia: No Meds Allergies/Adverse Reactions: Allergies Allergy/AdvReac Type Severity Reaction Status Date / Time Sulfa (Sulfonamide Allergy ANAPHYLAXIS Verified 12/20/17 14:49 Antibiotics) - Medications Medications: Current Medications Acetaminophen (Tylenol 325mg Tab) 650 mg PO Q6H PRN PRN Reason: Fever >100.4 F Albuterol/Ipratropium (Duoneb 3 Mg/0.5 Mg (3 Ml) Ud) 3 ml IH [id number] KIMMY Last Admin: 01/03/18 20:51 Dose: 3 ml Albuterol/Ipratropium (Duoneb 3 Mg/0.5 Mg (3 Ml) Ud) 3 ml IH Q2H PRN PRN Reason: Shortness of Breath Alprazolam (Xanax) 0.25 mg PO TID PRN; Protocol PRN Reason: Anxiety Stop: 01/10/18 19:15 Alprazolam (Xanax) 0.25 mg PO BID KIMMY PRN Reason: Protocol Stop: 01/11/18 10:01 Fentanyl (Duragesic) 1 patch TD Q72 KIMMY Doxycycline Hyclate 100 mg/ (Sodium Chloride) 100 mls @ 100 mls/hr IVPB Q12 KIMMY PRN Reason: Protocol Last Admin: 01/03/18 22:38 Dose: 100 mls/hr Cefepime HCl (Maxipime 1gm) 1 gm in 100 mls @ 100 mls/hr IVPB Q12 KIMMY PRN Reason: Protocol Morphine Sulfate (Morphine Immediate Release Tab) 15 mg PO Q6 PRN PRN Reason: Pain, moderate (4-7) Last Admin: 01/03/18 22:37 Dose: 15 mg Ondansetron HCl (Zofran Inj) 4 mg IVP Q6H PRN PRN Reason: Nausea/Vomiting Pantoprazole Sodium (Protonix Ec Tab) 40 mg PO 0630 [facility] Polyethylene Glycol (Miralax) 17 gm PO DAILY [facility] Physical Exam - Constitutional Appears: No Acute Distress - Head Exam Head Exam: ATRAUMATIC, NORMAL INSPECTION - Eye Exam Eye Exam: EOMI Pupil Exam: PERRL - ENT Exam ENT Exam: Mucous Membranes Moist - Respiratory Exam Respiratory Exam: NORMAL BREATHING PATTERN. absent: Respiratory Distress Additional comments: decreased breath sounds appreciated in RLL lung field - Cardiovascular Exam Cardiovascular Exam: REGULAR RHYTHM, +S1 - GI/Abdominal Exam GI & Abdominal Exam: Normal Bowel Sounds. absent: Firm, Guarding Additional comments: right sided abdominal tenderness appreciated in the flank region - Extremities Exam Extremities exam: Negative for: calf tenderness, normal inspection - Back Exam Back exam: NORMAL INSPECTION. absent: CVA tenderness (L), CVA tenderness (R) - Neurological Exam Neurological exam: Alert, Oriented x3 - Skin Skin Exam: Normal Color, Warm Additional comments: multiple ecchymosis spots on legs bilaterally Results - Vital Signs Recent Vital Signs: Last Vital Signs Temp 98.1 F 01/03/18 14:48 Pulse 105 H 01/03/18 22:16 Resp 16 01/03/18 22:16 BP 153/73 H 01/03/18 22:16 Pulse Ox 98 01/03/18 22:16 - Labs Result Diagrams: 01/03/18 16:45 01/03/18 16:45 Labs: Laboratory Results - last 24 hr 01/03/18 21:09 Urine Color Dark yellow Urine Appearance Clear Urine pH 6.5 Ur Specific [place] 1.015 Urine Protein 30 H Urine Glucose (UA) Negative Urine Ketones Negative Urine Blood Trace-intact H Urine Nitrate Negative Urine Bilirubin Negative Urine Urobilinogen 2.0 H Ur Leukocyte Esterase Large H Urine RBC 0 - 2 Urine WBC 2 - 5 Ur Epithelial Cells 1 - 3 Urine Bacteria Trace Assessment & Plan - Assessment and Plan (Free Text) Assessment: This is a 72 year old female with PMH of 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 Patient's repeat Head CT revealed subdural hematoma that is increased in size to 5mm from previous 4mm on 12/20/17. Patient admitted to ICU for close monitoring. Plan: Neuro: -maintain normothermia -AAO x3, moving extremities spontaneously past midline -xanax 0.25mg BID -neuro check q2 -CT head showed subdural hematoma in the right frontotemporal region, measuring up to 5 mm, previously measured 4 mm. Left temporal subdural hematoma measures up to 3mm, similar to the prior. Underlying metastatic lesions not excluded. -per neurosurg, no intervention at this time Cardio: -maintain MAP>65 -will monitor vitals including HR and BP closely -In ED, trop was 0.02 and EKG showed normal sinus rhythm at 100 bpm with left axis deviation and no ST changes. -echo on 06/12 showed LVEF of 60%, RVSP of 43 and moderate MR, mild TR Lungs: -SaO2 >90% -supplementary O2 PRN -duonebs PRN -CXR revealed RLL infiltrate/pleural effusions similar to prior studied -CT chest showed large right pleural effusion with adjacent compressive atelectasis and/or infiltrates. Near complete atelectasis of the right lower lobe. Scattered areas of patchy sclerosis in the visualized skeleton, concerning for metastatic disease. Findings suspicious for metastatic lymphadenopathy in the chest. -morphine 15mg PO q6 prn -PET/CT scan in 09/2017 showed diffuse hepatic metastasis, neoplastic lesion in the right lung apex, significant FDG avid mediastinal adenopathy with extension into the right hilum and right esophageal recess. Diffuse bone metastasis within the axial skeleton. Metastatic lesions within the pelvis, sacrum, right humeral head and left greater trochanter. -Pulm on consult, Dr. Eastman -Oncology on consult, Dr. Puente. History of small lung carcinoma with mets to liver and bone GI: -Heart healthy diet -GI prophylaxis with protonix -CT abd/pelvis showed multiple hypodense lesions in the liver, concerning for malignancy/metastatic disease. Extensive upper abdominal lymphadenopathy. Apparent thickening of the transverse and descending colon, suspicious for infectious/inflammatory colitis versus ischemic colitis. -elevated LFT, alk phos, T bili and LDH likely 2/2 metastatic liver disease -GI on consult, Dr. Carlos Renal: -maintain euvolemia -avoid nephrotoxic agents, hypochloremia -replace electrolytes as needed -BUN/Cr 12/0.5 WNL -U/A positive for large leukocyte esterase. Patient has no urinary complaints at this time Heme: -Hg is 9.9, will monitor -platelets 79 on admission, one unit platelet transfusion ordered -platelets previously 117 on 12/23 after discharge -received platelets on 11/23, 11/26, 11/29 and 12/01 with platelets ranging in the 10- 20s. Endo: -maintain euglycemia ID: -WBC is 9.3 today, afebrile -blood culture, urine culture pending -currently on cefepime, doxycycline -ID on consult, Dr. Hernandez for possible pneumonia Patient seen and case discussed with attending, Dr. Gonzalez Robert, PGY-1 <Deven Roth - Last Filed: 01/04/18 06:27> Meds - Medications Medications: Current Medications Acetaminophen (Tylenol 325mg Tab) 650 mg PO Q6H PRN PRN Reason: Fever >100.4 F Albuterol/Ipratropium (Duoneb 3 Mg/0.5 Mg (3 Ml) Ud) 3 ml IH [id number] [facility] Last Admin: 01/04/18 02:35 Dose: Not Given Albuterol/Ipratropium (Duoneb 3 Mg/0.5 Mg (3 Ml) Ud) 3 ml IH Q2H PRN PRN Reason: Shortness of Breath Alprazolam (Xanax) 0.25 mg PO TID PRN; Protocol PRN Reason: Anxiety Stop: 01/10/18 19:15 Alprazolam (Xanax) 0.25 mg PO BID KIMMY PRN Reason: Protocol Stop: 01/11/18 10:01 Fentanyl (Duragesic) 1 patch TD Q72 [facility] Doxycycline Hyclate 100 mg/ (Sodium Chloride) 100 mls @ 100 mls/hr IVPB Q12 KIMMY PRN Reason: Protocol Last Admin: 01/03/18 22:38 Dose: 100 mls/hr Cefepime HCl (Maxipime 1gm) 1 gm in 100 mls @ 100 mls/hr IVPB Q12 KIMMY PRN Reason: Protocol Last Admin: 01/04/18 01:18 Dose: 100 mls/hr Morphine Sulfate (Morphine Immediate Release Tab) 15 mg PO Q6 PRN PRN Reason: Pain, moderate (4-7) Last Admin: 01/04/18 04:35 Dose: 15 mg Ondansetron HCl (Zofran Inj) 4 mg IVP Q6H PRN PRN Reason: Nausea/Vomiting Pantoprazole Sodium (Protonix Ec Tab) 40 mg PO 0630 [facility] Last Admin: 01/04/18 06:21 Dose: 40 mg Polyethylene Glycol (Miralax) 17 gm PO DAILY [facility] Results - Vital Signs Recent Vital Signs: Last Vital Signs Temp 97.6 F 01/04/18 01:39 Pulse 79 01/04/18 05:50 Resp 12 01/04/18 05:50 BP 146/59 L 01/04/18 04:00 Pulse Ox 94 L 01/04/18 05:50 - Labs Result Diagrams: 01/04/18 05:55 01/03/18 16:45 Labs: Laboratory Results - last 24 hr 01/03/18 01/04/18 21:09 05:55 WBC 10.3 RBC 3.02 L Hgb 9.7 L Hct 32.1 L MCV 106.3 H MCH 32.1 MCHC 30.2 L RDW 22.2 H Plt Count 71 L MPV 10.5 Gran % 92.2 H Lymph % (Auto) 4.1 L [place] % (Auto) 3.6 Eos % (Auto) 0.0 L Baso % (Auto) 0.1 Gran # 9.51 H Lymph # (Auto) 0.4 L [place] # (Auto) 0.4 Eos # (Auto) 0.0 Baso # (Auto) 0.01 Urine Color Dark yellow Urine Appearance Clear Urine pH 6.5 Ur Specific [place] 1.015 Urine Protein 30 H Urine Glucose (UA) Negative Urine Ketones Negative Urine Blood Trace-intact H Urine Nitrate Negative Urine Bilirubin Negative Urine Urobilinogen 2.0 H Ur Leukocyte Esterase Large H Urine RBC 0 - 2 Urine WBC 2 - 5 Ur Epithelial Cells 1 - 3 Urine Bacteria Trace Attending/Attestation - Attestation I have personally seen and examined this patient.: Yes I have fully participated in the care of the patient.: Yes I have reviewed all pertinent clinical information: Yes
[2018-01-04] MEDS: Albuterol-Ipratrop 3 mg / 0.5 (3 ml) UD IH SCH ×4 (02:35→20:30)
[2018-01-04] MEDS: Morphine 15 mg Immediate Release Tab PO PRN ×2 (04:35→12:12)
[2018-01-04 05:37] VITALS: BMI 24.0
[2018-01-04 06:12] LABS: BASO # 0.01 K/mm3 (0.0-2.0); BASO % 0.1 % (0.0-3.0); GRAN # 9.51 (1.4-6.5); GRAN % 92.2 % (50.0-68.0); HEMOGLOBIN 9.7 g/dL (12.0-16.0); LYMPH # 0.4 (1.2-3.4); LYMPH % 4.1 % (22.0-35.0); MEAN CELL VOLUME 106.3 fl (80.0-105.0); MEAN CORPUSCULAR HEMOGLOBIN 32.1 pg (25.0-35.0); MEAN CORPUSCULAR HGB CONC 30.2 g/dl (31.0-37.0); MEAN PLATELET VOLUME 10.5 fl (7.0-11.0); MONO # 0.4 (0.1-0.6); MONO % 3.6 % (1.0-6.0); RBC 3.02 10^6/uL (3.5-6.1); RED CELL DISTRIBUTION WIDTH 22.2 % (11.5-14.5); WHITE BLOOD COUNT 10.3 10^3/ul (4.5-11.0)
[2018-01-04] MEDS: Pantoprazole 40 mg EC Tab PO SCH (06:21)
[2018-01-04 06:55] LABS: ALB/GLOB RATIO 0.9 (1.1-1.8); ALT/SGPT 71 U/L (7-56); AST/SGOT 143 U/L (14-36); BLOOD UREA NITROGEN 11 mg/dL (7-21); GFR NON-AFRICAN AMERICAN > 60
--- NOTE | 2018-01-04 07:00 | CP.PCM.PN ---
Subjective - Date & Time of Evaluation Date of Evaluation: 01/04/18 Time of Evaluation: 06:58 - Subjective Subjective: called by Er reviewed CT no significant change in SDH still not surgical case SDH is too small to be causing AMS Objective - Vital Signs/Intake and Output Vital Signs (last 24 hours): Temp Pulse Resp BP Pulse Ox 97.6 F 79 12 146/59 L 94 L 01/04/18 01:39 01/04/18 05:50 01/04/18 05:50 01/04/18 04:00 01/04/18 05:50 - Medications Medications: Current Medications Acetaminophen (Tylenol 325mg Tab) 650 mg PO Q6H PRN PRN Reason: Fever >100.4 F Albuterol/Ipratropium (Duoneb 3 Mg/0.5 Mg (3 Ml) Ud) 3 ml IH [id number] [facility] Last Admin: 01/04/18 02:35 Dose: Not Given Albuterol/Ipratropium (Duoneb 3 Mg/0.5 Mg (3 Ml) Ud) 3 ml IH Q2H PRN PRN Reason: Shortness of Breath Alprazolam (Xanax) 0.25 mg PO TID PRN; Protocol PRN Reason: Anxiety Stop: 01/10/18 19:15 Alprazolam (Xanax) 0.25 mg PO BID KIMMY PRN Reason: Protocol Stop: 01/11/18 10:01 Fentanyl (Duragesic) 1 patch TD Q72 [facility] Doxycycline Hyclate 100 mg/ (Sodium Chloride) 100 mls @ 100 mls/hr IVPB Q12 KIMMY PRN Reason: Protocol Last Admin: 01/03/18 22:38 Dose: 100 mls/hr Cefepime HCl (Maxipime 1gm) 1 gm in 100 mls @ 100 mls/hr IVPB Q12 KIMMY PRN Reason: Protocol Last Admin: 01/04/18 01:18 Dose: 100 mls/hr Morphine Sulfate (Morphine Immediate Release Tab) 15 mg PO Q6 PRN PRN Reason: Pain, moderate (4-7) Last Admin: 01/04/18 04:35 Dose: 15 mg Ondansetron HCl (Zofran Inj) 4 mg IVP Q6H PRN PRN Reason: Nausea/Vomiting Pantoprazole Sodium (Protonix Ec Tab) 40 mg PO 0630 [facility] Last Admin: 01/04/18 06:21 Dose: 40 mg Polyethylene Glycol (Miralax) 17 gm PO DAILY KIMMY - Labs Labs: 01/04/18 05:55 01/04/18 05:55 PT 13.8 SECONDS (9.4-12.5) H 01/03/18 16:45 INR 1.21 01/03/18 16:45 APTT 21.2 Seconds (25.1-36.5) L 01/03/18 16:45
[2018-01-04] MEDS: Meropenem IV 1 gm in NS 50 ML IVPB SCH ×3 (08:35→22:29)
[2018-01-04] MEDS: Vancomycin 1gm in NS 250ml 1 GM/250 ML BAG IVPB SCH ×2 (08:36→20:00)
--- NOTE | 2018-01-04 08:59 | CT ---
Date of service: 01/03/2018 PROCEDURE: CT Chest, Abdomen and Pelvis without intravenous contrast HISTORY: ABDOMINAL PAIN COMPARISON: 12/20/2017. TECHNIQUE: Radiation dose: Total exam DLP = 998.52 mGy-cm. This CT exam was performed using one or more of the following dose reduction techniques: Automated exposure control, adjustment of the mA and/or kV according to patient size, and/or use of iterative reconstruction technique. FINDINGS: CT CHEST WITHOUT CONTRAST: LUNGS: Compressive atelectasis affecting primarily room right lower lobe and to a lesser extent right upper lobe. MEDIASTINUM: Mediastinal adenopathy is stable. Pericardial phrenic lymph nodes studding the surface of the pericardium and diaphragm unchanged. LYMPH NODES: Lymphadenopathy mediastinum pericardium and diaphragm. PLEURA: Modest interval increase in right pleural effusion. Trace left pleural effusion represents a new finding. BONES: Sclerotic metastatic disease affecting multiple vertebral bodies, ribs and sternum. These are stable findings. OTHER FINDINGS: None. CT ABDOMEN AND PELVIS: LIVER: Hepatomegaly, hepatic metastatic disease similar to that seen previously. GALLBLADDER AND BILE DUCTS: Unremarkable. PANCREAS: Unremarkable. No gross lesion or ductal dilatation. SPLEEN: Unremarkable. ADRENALS: Unremarkable. No mass. KIDNEYS AND URETERS: Unremarkable. No hydronephrosis. No solid mass. VASCULATURE: Unremarkable. No aortic aneurysm. BOWEL: Thickening of the transverse colon likely reflective of collapse of the bowel. No abnormalities in the ascending and descending colon suggests an acute inflammatory component. APPENDIX: Normal appendix. PERITONEUM: Unremarkable. No free fluid. No free air. LYMPH NODES: Lymphadenopathy primarily in the upper abdomen, kiran hepatis and peripancreatic regions. No appreciable pelvic or inguinal lymphadenopathy. BLADDER: Unremarkable. REPRODUCTIVE: Unremarkable. BONES: Sclerotic metastatic disease lumbar spine and pelvis. OTHER FINDINGS: None. IMPRESSION: Modest interval increase in right pleural effusion common new trace left pleural effusion. Stable tumor burden above and below the diaphragms. Concordant results (preliminary interpretation) provided by [facility]. Procedure Completed: 19:15. Preliminary ([facility]) Report: Dictated and Authenticated: 20:52. Final Interpretation: 08:56. January 04, 2018.
[2018-01-04] MEDS ORDERED: Morphine 2 mg/ml ISec IVP ONE (09:18)
--- NOTE | 2018-01-04 09:49 | CT ---
Date of service: 01/03/2018 PROCEDURE: CT HEAD WITHOUT CONTRAST. HISTORY: fatigue/weakness COMPARISON: 12/20/2017 TECHNIQUE: Axial computed tomography images were obtained through the head/brain without intravenous contrast. Radiation dose: Total exam DLP = 791 mGy-cm. This CT exam was performed using one or more of the following dose reduction techniques: Automated exposure control, adjustment of the mA and/or kV according to patient size, and/or use of iterative reconstruction technique. FINDINGS: HEMORRHAGE: There is a slight increase in the size of the right frontal subdural hematoma currently measuring 10 x 23 mm and previously measuring 6 x 12 mm. There is no significant mass effect on the adjacent brain. A smaller subdural hematoma is seen more inferiorly and posteriorly in the frontal region measuring 4 mm in thickness. There is no change in the 3 mm thick subdural in the left temporal region. There is an unusual pattern of scalp masses on the other side of the calvarium from the hematomas. There is no associated bony destruction to suggest metastatic skull lesions. MRI may be indicated for further evaluation. BRAIN: No mass effect or edema. No atrophy or chronic microvascular ischemic changes. VENTRICLES: Unremarkable. No hydrocephalus. CALVARIUM: Unremarkable. PARANASAL SINUSES: Unremarkable as visualized. No significant inflammatory changes. MASTOID AIR CELLS: Unremarkable as visualized. No inflammatory changes. OTHER FINDINGS: The report concurs with the preliminary [facility] report IMPRESSION: Small right frontal subdural hematoma slightly increased in size. Stable appearance of remaining subdural hemorrhages. See comments
[2018-01-04] MEDS ORDERED: POLYETHYLENE GLYCOL 3350 17 GM/Dose PACKET PO SCH (10:00)
--- NOTE | 2018-01-04 10:56 | CP.PCM.CON ---
<Joseph Drew - Last Filed: 01/04/18 11:13> History of Present Illness - History of Present Illness History of Present Illness: GI Fellow PGY4, consult note. Maria Elena Ye is known to our service. She was seen 1 week ago for constipation. Now, we are consulted for colitis, elevated liver enzymes. She is a pleasant 72yo F with history of Metastatic Small cell lung cancer, her last chemo treatment was 2 weeks ago. She has been feeling weak, fatigued. She was reported to have change in mental status from her baseline. Today, she is laying in ICU bed, answering questions appropriately. She is very tired, denies diarrhea, significant or new abdominal pain, blood in her stool, nausea or vomiting. She was able to eat a small amount of food this AM, but she states she has no appetite. PMH: GERD, DM, HTN, COPD PSH: Right knee replacement, Noam Cath, and Family History: Non-contributory Social History: Former smoker with 50 pack year smoking history; Social alcohol use; Denies illicit drug use Allergies: Sulfa Past Patient History - Infectious Disease Hx of Infectious Diseases: None - Tetanus Immunizations Tetanus Immunization: Unknown - Past Medical History & Family History Past Medical History?: Yes - Past Social History Smoking Status: Former Smoker - CARDIAC Hx Congestive Heart Failure: Yes Hx Hypertension: Yes - PULMONARY Hx Asthma: Yes Hx Chronic Obstructive Pulmonary Disease (COPD): Yes Hx Pneumonia: Yes - NEUROLOGICAL Hx Neurological Disorder: No - HEENT Hx HEENT Problems: Yes (glasses) - RENAL Hx Chronic Kidney Disease: No - ENDOCRINE/METABOLIC Hx Diabetes Mellitus Type 2: Yes - HEMATOLOGICAL/ONCOLOGICAL Hx Anemia: Yes Hx Cancer: Yes (Lung CA w/ mets to liver and bone) Hx Chemotherapy: Yes (as per patient she finished tx) Hx Metastesis: Yes - INTEGUMENTARY Hx Dermatological Problems: Yes Other/Comment: SACRAL PRESSURE ULCER stg 2 1cm x 1cm wound bed is red/pink surounded by reddish skin optifoam intact, multiple purple and red skin discolorations to both legs and arms, thick long hard toenails, radiation markings to abd and chest - MUSCULOSKELETAL/RHEUMATOLOGICAL Hx Arthritis: Yes Hx Back Pain: Yes Hx Falls: Yes Hx Unsteady Gait: Yes - GASTROINTESTINAL Hx Gastrointestinal Disorders: Yes (constipation/ nausea) - GENITOURINARY/GYNECOLOGICAL Hx Urinary Tract Infection: Yes - PSYCHIATRIC Hx Anxiety: Yes Hx Depression: Yes Hx Substance Use: No - SURGICAL HISTORY Hx Appendectomy: Yes Hx Orthopedic Surgery: Yes - ANESTHESIA Hx Anesthesia Reactions: No Hx Malignant Hyperthermia: No Meds Allergies/Adverse Reactions: Allergies Allergy/AdvReac Type Severity Reaction Status Date / Time Sulfa (Sulfonamide Allergy ANAPHYLAXIS Verified 12/20/17 14:49 Antibiotics) - Medications Medications: Current Medications Acetaminophen (Tylenol 325mg Tab) 650 mg PO Q6H PRN PRN Reason: Fever >100.4 F Albuterol/Ipratropium (Duoneb 3 Mg/0.5 Mg (3 Ml) Ud) 3 ml IH [id number] KIMMY Last Admin: 01/04/18 07:24 Dose: 3 ml Albuterol/Ipratropium (Duoneb 3 Mg/0.5 Mg (3 Ml) Ud) 3 ml IH Q2H PRN PRN Reason: Shortness of Breath Alprazolam (Xanax) 0.25 mg PO TID PRN; Protocol PRN Reason: Anxiety Stop: 01/10/18 19:15 Alprazolam (Xanax) 0.25 mg PO BID KIMMY PRN Reason: Protocol Stop: 01/11/18 10:01 Fentanyl (Duragesic) 1 patch TD Q72 KIMMY Doxycycline Hyclate 100 mg/ (Sodium Chloride) 100 mls @ 100 mls/hr IVPB Q12 KIMMY PRN Reason: Protocol Last Admin: 01/04/18 09:34 Dose: 100 mls/hr Vancomycin HCl (Vancomycin 1gm) 1 gm in 250 mls @ 167 mls/hr IVPB Q12H KIMMY PRN Reason: Protocol Last Admin: 01/04/18 08:36 Dose: 167 mls/hr Meropenem (Merrem Iv 1 Gm Premix) 50 mls @ 100 mls/hr IVPB Q8 KIMMY PRN Reason: Protocol Last Admin: 01/04/18 08:35 Dose: 100 mls/hr Morphine Sulfate (Morphine Immediate Release Tab) 15 mg PO Q6 PRN PRN Reason: Pain, moderate (4-7) Last Admin: 01/04/18 04:35 Dose: 15 mg Ondansetron HCl (Zofran Inj) 4 mg IVP Q6H PRN PRN Reason: Nausea/Vomiting Pantoprazole Sodium (Protonix Ec Tab) 40 mg PO 0630 [facility] Last Admin: 01/04/18 06:21 Dose: 40 mg Polyethylene Glycol (Miralax) 17 gm PO DAILY [facility] Last Admin: 01/04/18 09:34 Dose: 17 gm Physical Exam - Constitutional Appears: Non-toxic, No Acute Distress, Cachectic, Chronically Ill - Eye Exam Eye Exam: Normal appearance - ENT Exam ENT Exam: Mucous Membranes Moist - Respiratory Exam Respiratory Exam: Clear to Auscultation Bilateral, NORMAL BREATHING PATTERN - Cardiovascular Exam Cardiovascular Exam: REGULAR RHYTHM - GI/Abdominal Exam GI & Abdominal Exam: Normal Bowel Sounds, Soft. absent: Distended, Guarding, Organomegaly, Tenderness - Rectal Exam Rectal Exam: Deferred - Extremities Exam Extremities exam: Positive for: normal inspection - Psychiatric Exam Psychiatric exam: Normal Affect, Normal Mood - Skin Skin Exam: Dry, Normal Color Results - Vital Signs Recent Vital Signs: Last Vital Signs Temp 97.6 F 01/04/18 01:39 Pulse 91 H 01/04/18 10:20 Resp 23 01/04/18 10:20 BP 136/67 01/04/18 10:01 Pulse Ox 96 01/04/18 10:20 - Labs Result Diagrams: 01/04/18 05:55 01/04/18 05:55 Labs: Laboratory Results - last 24 hr 01/03/18 01/04/18 01/04/18 21:09 05:55 05:55 WBC 10.3 RBC 3.02 L Hgb 9.7 L Hct 32.1 L MCV 106.3 H MCH 32.1 MCHC 30.2 L RDW 22.2 H Plt Count 71 L MPV 10.5 Gran % 92.2 H Lymph % (Auto) 4.1 L Dickey % (Auto) 3.6 Eos % (Auto) 0.0 L Baso % (Auto) 0.1 Gran # 9.51 H Lymph # (Auto) 0.4 L Dickey # (Auto) 0.4 Eos # (Auto) 0.0 Baso # (Auto) 0.01 Sodium 141 Potassium 3.5 L Chloride 101 Carbon Dioxide 33 Anion Gap 11 BUN 11 Creatinine 0.5 L Est GFR ( Amer) > 60 Est GFR (Non-Af Amer) > 60 POC Glucose (mg/dL) Random Glucose 151 H Calcium 8.0 L Phosphorus 2.7 Magnesium 2.3 H Total Bilirubin 2.0 H AST 143 H ALT 71 H Alkaline Phosphatase 854 H Total Protein 6.2 Albumin 3.0 Globulin 3.2 Albumin/Globulin Ratio 0.9 L Urine Color Dark yellow Urine Appearance Clear Urine pH 6.5 Ur Specific Metcalfe 1.015 Urine Protein 30 H Urine Glucose (UA) Negative Urine Ketones Negative Urine Blood Trace-intact H Urine Nitrate Negative Urine Bilirubin Negative Urine Urobilinogen 2.0 H Ur Leukocyte Esterase Large H Urine RBC 0 - 2 Urine WBC 2 - 5 Ur Epithelial Cells 1 - 3 Urine Bacteria Trace Blood Type Antibody Screen BBK History Checked 01/04/18 01/04/18 05:55 07:36 WBC RBC Hgb Hct MCV MCH MCHC RDW Plt Count MPV Gran % Lymph % (Auto) Dickey % (Auto) Eos % (Auto) Baso % (Auto) Gran # Lymph # (Auto) Dickey # (Auto) Eos # (Auto) Baso # (Auto) Sodium Potassium Chloride Carbon Dioxide Anion Gap BUN Creatinine Est GFR ( Amer) Est GFR (Non-Af Amer) POC Glucose (mg/dL) 144 H Random Glucose Calcium Phosphorus Magnesium Total Bilirubin AST ALT Alkaline Phosphatase Total Protein Albumin Globulin Albumin/Globulin Ratio Urine Color Urine Appearance Urine pH Ur Specific Metcalfe Urine Protein Urine Glucose (UA) Urine Ketones Urine Blood Urine Nitrate Urine Bilirubin Urine Urobilinogen Ur Leukocyte Esterase Urine RBC Urine WBC Ur Epithelial Cells Urine Bacteria Blood Type A POSITIVE Antibody Screen Negative BBK History Checked Patient has bt Assessment & Plan - Assessment and Plan (Free Text) Assessment: 72F with metastatic small cell lung ca presenting with AMS, weakness. #Small cell lung CA, stage IV - mets to liver, spine #Abnormal LFT #Subdural hematoma, chronic #GERD #DM #HTN #COPD PLAN: -Continue supportive care per ICU -LFT abnormalities likely due to metastatic disease, mild worsening compared to last week. -Direct bili, to r/o hemolytic process. -Avoid hepatotoxic meds -Continue PPI -Zofran PRN -Encourage eating -No endoscopic procedures planned. - Date & Time Date: 01/04/18 Time: 11:06 <Avinash Carlos V - Last Filed: 01/05/18 21:48> Meds - Medications Medications: Current Medications Acetaminophen (Tylenol 325mg Tab) 650 mg PO Q6H PRN PRN Reason: Fever >100.4 F Albuterol/Ipratropium (Duoneb 3 Mg/0.5 Mg (3 Ml) Ud) 3 ml IH [id number] KIMMY Last Admin: 01/05/18 20:11 Dose: 3 ml Albuterol/Ipratropium (Duoneb 3 Mg/0.5 Mg (3 Ml) Ud) 3 ml IH Q2H PRN PRN Reason: Shortness of Breath Alprazolam (Xanax) 0.25 mg PO TID PRN; Protocol PRN Reason: Anxiety Stop: 01/10/18 19:15 Alprazolam (Xanax) 0.25 mg PO BID KIMMY PRN Reason: Protocol Stop: 01/11/18 10:01 Last Admin: 01/05/18 21:19 Dose: 0.25 mg Famotidine (Pepcid) 40 mg PO HS KIMMY Last Admin: 01/05/18 21:12 Dose: 40 mg Fentanyl (Duragesic) 1 patch TD Q72 KIMMY Doxycycline Hyclate 100 mg/ (Sodium Chloride) 100 mls @ 100 mls/hr IVPB Q12 KIMMY PRN Reason: Protocol Last Admin: 01/05/18 21:16 Dose: 100 mls/hr Vancomycin HCl (Vancomycin 1gm) 1 gm in 250 mls @ 167 mls/hr IVPB Q12H KIMMY PRN Reason: Protocol Last Admin: 01/05/18 20:38 Dose: 167 mls/hr Meropenem (Merrem Iv 1 Gm Premix) 50 mls @ 100 mls/hr IVPB Q8 KIMMY PRN Reason: Protocol Last Admin: 01/05/18 21:08 Dose: 100 mls/hr Insulin Human Regular (Humulin R Low) 0 units SC ACHS KIMMY PRN Reason: Protocol Last Admin: 01/05/18 16:18 Dose: Not Given Lactulose (Enulose) 20 gm PO HS KIMMY Last Admin: 01/05/18 21:08 Dose: 20 gm Morphine Sulfate (Morphine Immediate Release Tab) 15 mg PO Q6 PRN PRN Reason: Pain, moderate (4-7) Last Admin: 01/04/18 12:12 Dose: 15 mg Morphine Sulfate (Morphine) 4 mg IVP Q2 PRN PRN Reason: Pain, moderate (4-7) Last Admin: 01/05/18 19:58 Dose: 4 mg Nystatin (Nystatin Oral Susp) 5 ml PO QID KIMMY Last Admin: 01/05/18 21:08 Dose: 5 ml Ondansetron HCl (Zofran Inj) 4 mg IVP Q6H PRN PRN Reason: Nausea/Vomiting Results - Vital Signs Recent Vital Signs: Last Vital Signs Temp 97.8 F 01/05/18 18:00 Pulse 92 H 01/05/18 20:30 Resp 15 01/05/18 20:30 BP 141/65 01/05/18 20:00 Pulse Ox 99 01/05/18 20:30 - Labs Result Diagrams: 01/05/18 11:20 01/05/18 06:00 Labs: Laboratory Results - last 24 hr 01/04/18 01/04/18 01/05/18 19:11 21:51 06:00 WBC 8.5 RBC 2.84 L Hgb 9.2 L Hct 30.4 L MCV 107.0 H MCH 32.4 MCHC 30.3 L RDW 22.5 H Plt Count 124 MPV 9.5 Gran % 90.2 H Lymph % (Auto) 5.1 L Dickey % (Auto) 4.5 Eos % (Auto) 0.1 L Baso % (Auto) 0.1 Gran # 7.63 H Lymph # (Auto) 0.4 L Dickey # (Auto) 0.4 Eos # (Auto) 0.0 Baso # (Auto) 0.01 pCO2 pO2 HCO3 ABG pH ABG Total CO2 ABG O2 Saturation ABG O2 Content ABG Base Excess ABG Hemoglobin ABG Carboxyhemoglobin POC ABG HHb (Measured) ABG Methemoglobin ABG O2 Capacity Hgb O2 Saturation FiO2 Sodium Potassium Chloride Carbon Dioxide Anion Gap BUN Creatinine Est GFR ( Amer) Est GFR (Non-Af Amer) POC Glucose (mg/dL) 169 H 196 H Random Glucose Calcium Total Bilirubin Direct Bilirubin AST ALT Alkaline Phosphatase Total Protein Albumin Globulin Albumin/Globulin Ratio Ur L.pneumophila Ag 01/05/18 01/05/18 01/05/18 06:00 06:00 07:21 WBC RBC Hgb Hct MCV MCH MCHC RDW Plt Count MPV Gran % Lymph % (Auto) Dickey % (Auto) Eos % (Auto) Baso % (Auto) Gran # Lymph # (Auto) Dickey # (Auto) Eos # (Auto) Baso # (Auto) pCO2 32 L pO2 59.0 L HCO3 28.7 H ABG pH 7.56 H ABG Total CO2 29.7 H ABG O2 Saturation 93.9 L ABG O2 Content 10.9 L ABG Base Excess 6.2 H ABG Hemoglobin 8.4 L ABG Carboxyhemoglobin 1.7 H POC ABG HHb (Measured) 5.9 H ABG Methemoglobin 0.8 ABG O2 Capacity 11.6 L Hgb O2 Saturation 91.6 L FiO2 28.0 Sodium 141 Potassium 3.6 Chloride 101 Carbon Dioxide 32 Anion Gap 11 BUN 9 Creatinine 0.4 L Est GFR ( Amer) > 60 Est GFR (Non-Af Amer) > 60 POC Glucose (mg/dL) 173 H Random Glucose 184 H Calcium 8.1 L Total Bilirubin 1.8 H Direct Bilirubin 1.6 H AST 140 H ALT 60 H Alkaline Phosphatase 825 H Total Protein 6.5 Albumin 3.2 Globulin 3.3 Albumin/Globulin Ratio 1.0 L Ur L.pneumophila Ag 01/05/18 01/05/18 01/05/18 08:45 11:20 21:38 WBC 8.7 RBC 2.64 L Hgb 8.6 L Hct 27.8 L MCV 105.3 H MCH 32.6 MCHC 30.9 L RDW 22.4 H Plt Count 113 L MPV 8.9 Gran % 89.6 H Lymph % (Auto) 5.0 L Dickey % (Auto) 5.2 Eos % (Auto) 0.1 L Baso % (Auto) 0.1 Gran # 7.76 H Lymph # (Auto) 0.4 L Dickey # (Auto) 0.5 Eos # (Auto) 0.0 Baso # (Auto) 0.01 pCO2 pO2 HCO3 ABG pH ABG Total CO2 ABG O2 Saturation ABG O2 Content ABG Base Excess ABG Hemoglobin ABG Carboxyhemoglobin POC ABG HHb (Measured) ABG Methemoglobin ABG O2 Capacity Hgb O2 Saturation FiO2 Sodium Potassium Chloride Carbon Dioxide Anion Gap BUN Creatinine Est GFR ( Amer) Est GFR (Non-Af Amer) POC Glucose (mg/dL) 168 H Random Glucose Calcium Total Bilirubin Direct Bilirubin AST ALT Alkaline Phosphatase Total Protein Albumin Globulin Albumin/Globulin Ratio Ur L.pneumophila Ag Negative Attending/Attestation - Attestation I have personally seen and examined this patient.: Yes I have fully participated in the care of the patient.: Yes I have reviewed all pertinent clinical information: Yes Notes (Text): This is an addendum to GI consult report dictated by the GI Fellow.The patient was seen and examined earlier. Medical records, lab studies, imagings were reviewed. Last 24 hours events reviewed. Agreed with the above treatment plan as outlined in GI Fellow 's notes with the addition of the following Discussed with ICU resident Imaging studies were reviewed On examination patient has a hepatomagly nodular Would recommended follow up of LFT Abdominal ultrasound with doppler 01/05/18 21:46
[2018-01-04] MEDS ORDERED: Potassium Chloride 20 mEq/15 ml LIQ UD PO STA (11:00)
--- NOTE | 2018-01-04 14:52 | CP.CCUPN ---
<Elvia Moreno - Last Filed: 01/04/18 15:58> CCU Subjective - Physician Review Subjective (Free Text): 01/04/18 10:50 Patient seen and examined this morning at bedside. resting comfortably in bed. AOx3 Denies n/v/f/c/d, HE, CP, SOB, abdominal pain. CCU Objective - Vital Signs / Intake & Output Vital Signs (Last 4 hours): Vital Signs Temp Pulse Resp BP Pulse Ox 01/04/18 12:49 98 F 83 18 128/73 01/04/18 12:09 98.3 F 100 H 15 137/78 01/04/18 11:50 83 15 98 01/04/18 11:41 84 24 141/66 94 L 01/04/18 11:40 79 16 98 01/04/18 11:30 85 17 96 01/04/18 11:24 98.1 F 85 18 138/48 L 01/04/18 11:20 95 H 21 138/48 L 97 01/04/18 11:10 94 H 69 H 96 01/04/18 11:02 97.4 F L 84 22 123/70 01/04/18 11:00 81 11 L 123/70 96 Intake and Output (Last 8hrs): Intake & Output 01/03/18 01/04/18 01/04/18 22:59 06:59 14:59 Intake Total 200 218 Balance 200 218 Weight 136 lb Intake: IV 200 Left Forearm 200 Blood Product 198 Apheresis Plts Acda Lr 198 Irr 2nd Unit [id number] Other 20 Apheresis Plts Acda Lr 20 Irr 2nd Unit [id number] Other: Voiding Method Diaper - Physical Exam Head: Positive for: Other (lump noted to frontal scalp; non tender. no step offs. ) Pupils: Positive for: PERRL Extroacular Muscles: Positive for: EOMI Mouth: Positive for: Moist Mucous Membranes Neck: Positive for: Normal Range of Motion Respiratory/Chest: Positive for: Rhonchi (noted to right lung base) Cardiovascular: Positive for: Regular Rate and Rhythm. Negative for: Murmurs Abdomen: Positive for: Tenderness (minimal right sided abdominal tenderness. ), Guarding. Negative for: Rebound Back: Positive for: Normal Inspection. Negative for: CVA Tenderness, Midline Tenderness, Paraspinal Tenderness Upper Extremity: Positive for: Normal ROM Lower Extremity: Positive for: Normal ROM, Other (multiple areas of ecchymosis noted to lower legs bilaterally. ) Neurological: Positive for: GCS=15, Speech Normal Skin: Positive for: Warm, Dry, Normal Color Psychiatric: Positive for: Alert, Normal Affect, Normal Mood - Medications Active Medications: Active Medications Generic Name Dose Route Start Last Admin Trade Name Freq PRN Reason Stop Dose Admin Acetaminophen 650 mg 01/03/18 19:18 Tylenol 325mg Tab PO Q6H PRN Fever >100.4 F Albuterol/Ipratropium 3 ml 01/03/18 20:00 01/04/18 13:00 Duoneb 3 Mg/0.5 Mg (3 Ml) Ud IH 3 ml [id number] KIMMY Administration Albuterol/Ipratropium 3 ml 01/03/18 19:18 Duoneb 3 Mg/0.5 Mg (3 Ml) Ud IH Q2H PRN Shortness of Breath Alprazolam 0.25 mg 01/03/18 19:14 Xanax PO 01/10/18 19:15 TID PRN Anxiety Protocol Alprazolam 0.25 mg 01/04/18 10:00 01/04/18 10:59 Xanax PO 01/11/18 10:01 0.25 mg BID KIMMY Administration Protocol Fentanyl 1 patch 01/06/18 10:00 Duragesic TD Q72 KIMMY Doxycycline Hyclate 100 mg/ 100 mls @ 100 mls/hr 01/03/18 22:00 01/04/18 09: 34 Sodium Chloride IVPB 100 mls/hr Q12 KIMMY Administration Protocol Vancomycin HCl 1 gm in 250 mls @ 167 mls/hr 01/04/18 07:00 01/04/18 08:36 Vancomycin 1gm IVPB 167 mls/hr Q12H KIMMY Administration Protocol Meropenem 50 mls @ 100 mls/hr 01/04/18 07:00 01/04/18 13:58 Merrem Iv 1 Gm Premix IVPB 100 mls/hr Q8 KIMMY Administration Protocol Morphine Sulfate 15 mg 01/03/18 19:14 01/04/18 12:12 Morphine Immediate Release Tab PO 15 mg Q6 PRN Administration Pain, moderate (4-7) Morphine Sulfate 2 mg 09/12/18 13:42 Morphine IVP Q4H PRN Pain, moderate (4-7) Ondansetron HCl 4 mg 01/03/18 19:18 Zofran Inj IVP Q6H PRN Nausea/Vomiting Pantoprazole Sodium 40 mg 01/04/18 06:30 01/04/18 06:21 Protonix Ec Tab PO 40 mg 0630 KIMMY Administration Polyethylene Glycol 17 gm 01/04/18 10:00 01/04/18 09:34 Miralax PO 17 gm DAILY KIMMY Administration - Patient Studies Lab Studies: Lab Studies 01/04/18 01/04/18 01/04/18 Range/Units 11:30 07:36 06:30 WBC (4.5-11.0) 10^3/ul RBC (3.5-6.1) 10^6/uL Hgb (12.0-16.0) g/dL Hct (36.0-48.0) % MCV (80.0-105.0) fl MCH (25.0-35.0) pg MCHC (31.0-37.0) g/dl RDW (11.5-14.5) % Plt Count (120.0-450.0) 10^3/uL MPV (7.0-11.0) fl Gran % (50.0-68.0) % Lymph % (Auto) (22.0-35.0) % [place] % (Auto) (1.0-6.0) % Eos % (Auto) (1.5-5.0) % Baso % (Auto) (0.0-3.0) % Gran # (1.4-6.5) Lymph # (Auto) (1.2-3.4) [place] # (Auto) (0.1-0.6) Eos # (Auto) (0.0-0.7) Baso # (Auto) (0.0-2.0) K/mm3 Sodium (132-148) mmol/L Potassium (3.6-5.0) mmol/L Chloride (98-107) mmol/L Carbon Dioxide (21-33) mmol/L Anion Gap (10-20) BUN (7-21) mg/dL Creatinine (0.7-1.2) mg/dl Est GFR ( Amer) Est GFR (Non-Af Amer) POC Glucose (mg/dL) 228 H 144 H (65-110) mg/dL Random Glucose (70-110) mg/dL Calcium (8.4-10.5) mg/dL Phosphorus (2.5-4.5) mg/dL Magnesium (1.7-2.2) mg/dL Total Bilirubin (0.2-1.3) mg/dL AST (14-36) U/L ALT (7-56) U/L Alkaline Phosphatase (38-126) U/L Total Protein (5.8-8.3) g/dL Albumin (3.0-4.8) g/dL Globulin gm/dL Albumin/Globulin Ratio (1.1-1.8) Procalcitonin 3.94 H (0.19-0.49) NG/ML Urine Color (YELLOW) Urine Appearance (CLEAR) Urine pH (4.7-8.0) Ur Specific Joiner (1.005-1.035) Urine Protein (<30 mg/dL) mg/dL Urine Glucose (UA) (NEGATIVE) mg/dL Urine Ketones (NEGATIVE) mg/dL Urine Blood (NEGATIVE) Urine Nitrate (NEGATIVE) Urine Bilirubin (NEGATIVE) Urine Urobilinogen (<1 E.U./dL) E.U./dL Ur Leukocyte Esterase (NEGATIVE) Dimitri/uL Urine RBC (0-2) /hpf Urine WBC (0-6) /hpf Ur Epithelial Cells (0-5) /hpf Urine Bacteria (NEG) Blood Type Antibody Screen BBK History Checked 01/04/18 01/04/18 01/04/18 Range/Units 05:55 05:55 05:55 WBC 10.3 (4.5-11.0) 10^3/ul RBC 3.02 L (3.5-6.1) 10^6/uL Hgb 9.7 L (12.0-16.0) g/dL Hct 32.1 L (36.0-48.0) % MCV 106.3 H (80.0-105.0) fl MCH 32.1 (25.0-35.0) pg MCHC 30.2 L (31.0-37.0) g/dl RDW 22.2 H (11.5-14.5) % Plt Count 71 L (120.0-450.0) 10^3/uL MPV 10.5 (7.0-11.0) fl Gran % 92.2 H (50.0-68.0) % Lymph % (Auto) 4.1 L (22.0-35.0) % [place] % (Auto) 3.6 (1.0-6.0) % Eos % (Auto) 0.0 L (1.5-5.0) % Baso % (Auto) 0.1 (0.0-3.0) % Gran # 9.51 H (1.4-6.5) Lymph # (Auto) 0.4 L (1.2-3.4) [place] # (Auto) 0.4 (0.1-0.6) Eos # (Auto) 0.0 (0.0-0.7) Baso # (Auto) 0.01 (0.0-2.0) K/mm3 Sodium 141 (132-148) mmol/L Potassium 3.5 L (3.6-5.0) mmol/L Chloride 101 (98-107) mmol/L Carbon Dioxide 33 (21-33) mmol/L Anion Gap 11 (10-20) BUN 11 (7-21) mg/dL Creatinine 0.5 L (0.7-1.2) mg/dl Est GFR ( Amer) > 60 Est GFR (Non-Af Amer) > 60 POC Glucose (mg/dL) (65-110) mg/dL Random Glucose 151 H (70-110) mg/dL Calcium 8.0 L (8.4-10.5) mg/dL Phosphorus 2.7 (2.5-4.5) mg/dL Magnesium 2.3 H (1.7-2.2) mg/dL Total Bilirubin 2.0 H (0.2-1.3) mg/dL AST 143 H (14-36) U/L ALT 71 H (7-56) U/L Alkaline Phosphatase 854 H (38-126) U/L Total Protein 6.2 (5.8-8.3) g/dL Albumin 3.0 (3.0-4.8) g/dL Globulin 3.2 gm/dL Albumin/Globulin Ratio 0.9 L (1.1-1.8) Procalcitonin (0.19-0.49) NG/ML Urine Color (YELLOW) Urine Appearance (CLEAR) Urine pH (4.7-8.0) Ur Specific Joiner (1.005-1.035) Urine Protein (<30 mg/dL) mg/dL Urine Glucose (UA) (NEGATIVE) mg/dL Urine Ketones (NEGATIVE) mg/dL Urine Blood (NEGATIVE) Urine Nitrate (NEGATIVE) Urine Bilirubin (NEGATIVE) Urine Urobilinogen (<1 E.U./dL) E.U./dL Ur Leukocyte Esterase (NEGATIVE) Dimitri/uL Urine RBC (0-2) /hpf Urine WBC (0-6) /hpf Ur Epithelial Cells (0-5) /hpf Urine Bacteria (NEG) Blood Type A POSITIVE Antibody Screen Negative BBK History Checked Patient has bt 01/03/18 Range/Units 21:09 WBC (4.5-11.0) 10^3/ul RBC (3.5-6.1) 10^6/uL Hgb (12.0-16.0) g/dL Hct (36.0-48.0) % MCV (80.0-105.0) fl MCH (25.0-35.0) pg MCHC (31.0-37.0) g/dl RDW (11.5-14.5) % Plt Count (120.0-450.0) 10^3/uL MPV (7.0-11.0) fl Gran % (50.0-68.0) % Lymph % (Auto) (22.0-35.0) % [place] % (Auto) (1.0-6.0) % Eos % (Auto) (1.5-5.0) % Baso % (Auto) (0.0-3.0) % Gran # (1.4-6.5) Lymph # (Auto) (1.2-3.4) [place] # (Auto) (0.1-0.6) Eos # (Auto) (0.0-0.7) Baso # (Auto) (0.0-2.0) K/mm3 Sodium (132-148) mmol/L Potassium (3.6-5.0) mmol/L Chloride (98-107) mmol/L Carbon Dioxide (21-33) mmol/L Anion Gap (10-20) BUN (7-21) mg/dL Creatinine (0.7-1.2) mg/dl Est GFR ( Amer) Est GFR (Non-Af Amer) POC Glucose (mg/dL) (65-110) mg/dL Random Glucose (70-110) mg/dL Calcium (8.4-10.5) mg/dL Phosphorus (2.5-4.5) mg/dL Magnesium (1.7-2.2) mg/dL Total Bilirubin (0.2-1.3) mg/dL AST (14-36) U/L ALT (7-56) U/L Alkaline Phosphatase (38-126) U/L Total Protein (5.8-8.3) g/dL Albumin (3.0-4.8) g/dL Globulin gm/dL Albumin/Globulin Ratio (1.1-1.8) Procalcitonin (0.19-0.49) NG/ML Urine Color Dark yellow (YELLOW) Urine Appearance Clear (CLEAR) Urine pH 6.5 (4.7-8.0) Ur Specific Joiner 1.015 (1.005-1.035) Urine Protein 30 H (<30 mg/dL) mg/dL Urine Glucose (UA) Negative (NEGATIVE) mg/dL Urine Ketones Negative (NEGATIVE) mg/dL Urine Blood Trace-intact H (NEGATIVE) Urine Nitrate Negative (NEGATIVE) Urine Bilirubin Negative (NEGATIVE) Urine Urobilinogen 2.0 H (<1 E.U./dL) E.U./dL Ur Leukocyte Esterase Large H (NEGATIVE) Dimitri/uL Urine RBC 0 - 2 (0-2) /hpf Urine WBC 2 - 5 (0-6) /hpf Ur Epithelial Cells 1 - 3 (0-5) /hpf Urine Bacteria Trace (NEG) Blood Type Antibody Screen BBK History Checked Laboratory Results - last 24 hr 01/03/18 01/04/18 01/04/18 21:09 05:55 05:55 WBC 10.3 RBC 3.02 L Hgb 9.7 L Hct 32.1 L MCV 106.3 H MCH 32.1 MCHC 30.2 L RDW 22.2 H Plt Count 71 L MPV 10.5 Gran % 92.2 H Lymph % (Auto) 4.1 L [place] % (Auto) 3.6 Eos % (Auto) 0.0 L Baso % (Auto) 0.1 Gran # 9.51 H Lymph # (Auto) 0.4 L [place] # (Auto) 0.4 Eos # (Auto) 0.0 Baso # (Auto) 0.01 Sodium 141 Potassium 3.5 L Chloride 101 Carbon Dioxide 33 Anion Gap 11 BUN 11 Creatinine 0.5 L Est GFR ( Amer) > 60 Est GFR (Non-Af Amer) > 60 POC Glucose (mg/dL) Random Glucose 151 H Calcium 8.0 L Phosphorus 2.7 Magnesium 2.3 H Total Bilirubin 2.0 H AST 143 H ALT 71 H Alkaline Phosphatase 854 H Total Protein 6.2 Albumin 3.0 Globulin 3.2 Albumin/Globulin Ratio 0.9 L Procalcitonin Urine Color Dark yellow Urine Appearance Clear Urine pH 6.5 Ur Specific Joiner 1.015 Urine Protein 30 H Urine Glucose (UA) Negative Urine Ketones Negative Urine Blood Trace-intact H Urine Nitrate Negative Urine Bilirubin Negative Urine Urobilinogen 2.0 H Ur Leukocyte Esterase Large H Urine RBC 0 - 2 Urine WBC 2 - 5 Ur Epithelial Cells 1 - 3 Urine Bacteria Trace Blood Type Antibody Screen BBK History Checked 01/04/18 01/04/18 01/04/18 05:55 06:30 07:36 WBC RBC Hgb Hct MCV MCH MCHC RDW Plt Count MPV Gran % Lymph % (Auto) [place] % (Auto) Eos % (Auto) Baso % (Auto) Gran # Lymph # (Auto) [place] # (Auto) Eos # (Auto) Baso # (Auto) Sodium Potassium Chloride Carbon Dioxide Anion Gap BUN Creatinine Est GFR ( Amer) Est GFR (Non-Af Amer) POC Glucose (mg/dL) 144 H Random Glucose Calcium Phosphorus Magnesium Total Bilirubin AST ALT Alkaline Phosphatase Total Protein Albumin Globulin Albumin/Globulin Ratio Procalcitonin 3.94 H Urine Color Urine Appearance Urine pH Ur Specific Joiner Urine Protein Urine Glucose (UA) Urine Ketones Urine Blood Urine Nitrate Urine Bilirubin Urine Urobilinogen Ur Leukocyte Esterase Urine RBC Urine WBC Ur Epithelial Cells Urine Bacteria Blood Type A POSITIVE Antibody Screen Negative BBK History Checked Patient has bt 01/04/18 11:30 WBC RBC Hgb Hct MCV MCH MCHC RDW Plt Count MPV Gran % Lymph % (Auto) [place] % (Auto) Eos % (Auto) Baso % (Auto) Gran # Lymph # (Auto) [place] # (Auto) Eos # (Auto) Baso # (Auto) Sodium Potassium Chloride Carbon Dioxide Anion Gap BUN Creatinine Est GFR ( Amer) Est GFR (Non-Af Amer) POC Glucose (mg/dL) 228 H Random Glucose Calcium Phosphorus Magnesium Total Bilirubin AST ALT Alkaline Phosphatase Total Protein Albumin Globulin Albumin/Globulin Ratio Procalcitonin Urine Color Urine Appearance Urine pH Ur Specific Joiner Urine Protein Urine Glucose (UA) Urine Ketones Urine Blood Urine Nitrate Urine Bilirubin Urine Urobilinogen Ur Leukocyte Esterase Urine RBC Urine WBC Ur Epithelial Cells Urine Bacteria Blood Type Antibody Screen BBK History Checked Fingerstick Blood Sugar Results: 190 Review of Systems - Review of Systems All systems: reviewed and no additional remarkable complaints except Review of Systems: as per HPI Critical Care Progress Note - Nutrition Nutrition: Nutrition Category Date Time Status Consistent Carbohydrate [DIET] Diets 01/04/18 Breakfast Ordered Assessment/Plan - Assessment and Plan (Free Text) Assessment: This is a 72 year old female with PMH of 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 Patient's repeat Head CT revealed subdural hematoma that is increased in size to 5mm from previous 4mm on 12/20/17. Patient admitted to ICU for close monitoring. Neuro status stable overnight; patient alert and oriented. Plan: Neuro: - will order ammonia level to r/o encephalopathic causes of AMS -maintain normothermia -AAO x3, moving extremities spontaneously past midline -xanax 0.25mg BID -neuro check q2 -CT head showed subdural hematoma in the right frontotemporal region, measuring up to 5 mm, previously measured 4 mm. Left temporal subdural hematoma measures up to 3mm, similar to the prior. Underlying metastatic lesions not excluded. -per neurosurg, no intervention at this time Cardio: -maintain MAP>65 -will monitor vitals including HR and BP closely -In ED, trop was 0.02 and EKG showed normal sinus rhythm at 100 bpm with left axis deviation and no ST changes. -echo on 06/12 showed LVEF of 60%, RVSP of 43 and moderate MR, mild TR Lungs: - blood gas ordered to assess acid base status -SaO2 >90% -supplementary O2 PRN -duonebs PRN -CXR revealed RLL infiltrate/pleural effusions similar to prior studied -CT chest showed large right pleural effusion with adjacent compressive atelectasis and/or infiltrates. Near complete atelectasis of the right lower lobe. Scattered areas of patchy sclerosis in the visualized skeleton, concerning for metastatic disease. Findings suspicious for metastatic lymphadenopathy in the chest. -morphine 15mg PO q6 prn -PET/CT scan in 09/2017 showed diffuse hepatic metastasis, neoplastic lesion in the right lung apex, significant FDG avid mediastinal adenopathy with extension into the right hilum and right esophageal recess. Diffuse bone metastasis within the axial skeleton. Metastatic lesions within the pelvis, sacrum, right humeral head and left greater trochanter. -Pulm on consult, Dr. Eastman -Oncology on consult, Dr. Puente. History of small lung carcinoma with mets to liver and bone GI: -Heart healthy diet -GI prophylaxis with protonix -CT abd/pelvis showed multiple hypodense lesions in the liver, concerning for malignancy/metastatic disease. Extensive upper abdominal lymphadenopathy. Apparent thickening of the transverse and descending colon, suspicious for infectious/inflammatory colitis versus ischemic colitis. -elevated LFT, alk phos, T bili and LDH likely 2/2 metastatic liver disease -GI on consult, Dr. Carlos Renal: -maintain euvolemia -avoid nephrotoxic agents, hypochloremia -replace electrolytes as needed -BUN/Cr 12/0.5 WNL -U/A positive for large leukocyte esterase. Patient has no urinary complaints at this time Heme: -Hg is 9.7, will monitor -platelets 79 on admission, one unit platelet transfusion given - 71 this am, give 2 u PLT today - will repeat CBC in pm -platelets previously 117 on 12/23 after discharge -received platelets on 11/23, 11/26, 11/29 and 12/01 with platelets ranging in the 10- 20s. Endo: -maintain euglycemia ID: -WBC is 10.3 today, afebrile -blood culture, urine culture pending -currently on cefepime, doxycycline -ID on consult, Dr. Hernandez for possible pneumonia Patient seen and case discussed with attending, Dr. Colton Moreno, PGY 1 - Date & Time Date: 01/04/18 <David Segura - Last Filed: 01/04/18 16:04> CCU Objective - Vital Signs / Intake & Output Vital Signs (Last 4 hours): Vital Signs Temp Pulse Resp BP Pulse Ox 01/04/18 15:51 98.2 F 84 18 139/63 01/04/18 15:33 98.2 F 86 18 135/75 01/04/18 15:20 83 34 H 135/75 99 01/04/18 15:10 86 67 H 99 01/04/18 15:00 95 H 39 H 139/73 98 01/04/18 14:56 131/75 01/04/18 14:50 81 43 H 96 01/04/18 14:40 94 H 19 93 L 01/04/18 14:39 93 H 20 01/04/18 14:30 81 14 99 01/04/18 14:20 76 12 129/62 99 01/04/18 14:10 83 27 H 92 L 01/04/18 14:01 89 25 H 125/60 98 01/04/18 14:00 82 16 98 01/04/18 13:50 79 27 H 95 01/04/18 13:40 85 43 H 139/67 95 01/04/18 13:30 97 H 34 H 98 01/04/18 13:20 85 21 132/83 96 01/04/18 13:10 100 H 43 H 98 01/04/18 13:00 95 H 30 H 125/71 97 01/04/18 12:50 86 98 01/04/18 12:49 98 F 83 18 128/73 01/04/18 12:43 102 H 26 H 128/73 97 01/04/18 12:40 86 19 141/57 L 96 01/04/18 12:30 88 19 96 01/04/18 12:20 97 H 17 128/67 97 01/04/18 12:13 111 H 18 137/78 95 01/04/18 12:10 87 21 98 01/04/18 12:09 98.3 F 100 H 15 137/78 Intake and Output (Last 8hrs): Intake & Output 01/04/18 01/04/18 01/04/18 06:59 14:59 22:59 Intake Total 200 218 0 Balance 200 218 0 Weight 136 lb Intake: IV 200 Left Forearm 200 Blood Product 198 0 Apheresis Plts Acda Lr 0 Irr Unit [id number] Apheresis Plts Acda Lr 198 Irr 2nd Unit [id number] Other 20 Apheresis Plts Acda Lr 20 Irr 2nd Unit [id number] Other: Voiding Method Diaper - Medications Active Medications: Active Medications Generic Name Dose Route Start Last Admin Trade Name Freq PRN Reason Stop Dose Admin Acetaminophen 650 mg 01/03/18 19:18 Tylenol 325mg Tab PO Q6H PRN Fever >100.4 F Albuterol/Ipratropium 3 ml 01/03/18 20:00 01/04/18 13:00 Duoneb 3 Mg/0.5 Mg (3 Ml) Ud IH 3 ml [id number] KIMMY Administration Albuterol/Ipratropium 3 ml 01/03/18 19:18 Duoneb 3 Mg/0.5 Mg (3 Ml) Ud IH Q2H PRN Shortness of Breath Alprazolam 0.25 mg 01/03/18 19:14 Xanax PO 01/10/18 19:15 TID PRN Anxiety Protocol Alprazolam 0.25 mg 01/04/18 10:00 01/04/18 10:59 Xanax PO 01/11/18 10:01 0.25 mg BID KIMMY Administration Protocol Fentanyl 1 patch 01/06/18 10:00 Duragesic TD Q72 KIMMY Doxycycline Hyclate 100 mg/ 100 mls @ 100 mls/hr 01/03/18 22:00 01/04/18 09: 34 Sodium Chloride IVPB 100 mls/hr Q12 KIMMY Administration Protocol Vancomycin HCl 1 gm in 250 mls @ 167 mls/hr 01/04/18 07:00 01/04/18 08:36 Vancomycin 1gm IVPB 167 mls/hr Q12H KIMMY Administration Protocol Meropenem 50 mls @ 100 mls/hr 01/04/18 07:00 01/04/18 13:58 Merrem Iv 1 Gm Premix IVPB 100 mls/hr Q8 KIMMY Administration Protocol Morphine Sulfate 15 mg 01/03/18 19:14 01/04/18 12:12 Morphine Immediate Release Tab PO 15 mg Q6 PRN Administration Pain, moderate (4-7) Morphine Sulfate 2 mg 01/04/18 13:42 01/04/18 14:58 Morphine IVP 2 mg Q4H PRN Administration Pain, moderate (4-7) Nystatin 5 ml 01/04/18 18:00 Nystatin Oral Susp PO QID KIMMY Ondansetron HCl 4 mg 01/03/18 19:18 Zofran Inj IVP Q6H PRN Nausea/Vomiting Pantoprazole Sodium 40 mg 01/04/18 06:30 01/04/18 06:21 Protonix Ec Tab PO 40 mg 0630 KIMMY Administration Polyethylene Glycol 17 gm 01/04/18 10:00 01/04/18 09:34 Miralax PO 17 gm DAILY KIMMY Administration - Patient Studies Lab Studies: Lab Studies 01/04/18 01/04/18 01/04/18 Range/Units 11:30 07:36 06:30 WBC (4.5-11.0) 10^3/ul RBC (3.5-6.1) 10^6/uL Hgb (12.0-16.0) g/dL Hct (36.0-48.0) % MCV (80.0-105.0) fl MCH (25.0-35.0) pg MCHC (31.0-37.0) g/dl RDW (11.5-14.5) % Plt Count (120.0-450.0) 10^3/uL MPV (7.0-11.0) fl Gran % (50.0-68.0) % Lymph % (Auto) (22.0-35.0) % [place] % (Auto) (1.0-6.0) % Eos % (Auto) (1.5-5.0) % Baso % (Auto) (0.0-3.0) % Gran # (1.4-6.5) Lymph # (Auto) (1.2-3.4) [place] # (Auto) (0.1-0.6) Eos # (Auto) (0.0-0.7) Baso # (Auto) (0.0-2.0) K/mm3 Sodium (132-148) mmol/L Potassium (3.6-5.0) mmol/L Chloride (98-107) mmol/L Carbon Dioxide (21-33) mmol/L Anion Gap (10-20) BUN (7-21) mg/dL Creatinine (0.7-1.2) mg/dl Est GFR ( Amer) Est GFR (Non-Af Amer) POC Glucose (mg/dL) 228 H 144 H (65-110) mg/dL Random Glucose (70-110) mg/dL Calcium (8.4-10.5) mg/dL Phosphorus (2.5-4.5) mg/dL Magnesium (1.7-2.2) mg/dL Total Bilirubin (0.2-1.3) mg/dL AST (14-36) U/L ALT (7-56) U/L Alkaline Phosphatase (38-126) U/L Total Protein (5.8-8.3) g/dL Albumin (3.0-4.8) g/dL Globulin gm/dL Albumin/Globulin Ratio (1.1-1.8) Procalcitonin 3.94 H (0.19-0.49) NG/ML Urine Color (YELLOW) Urine Appearance (CLEAR) Urine pH (4.7-8.0) Ur Specific Joiner (1.005-1.035) Urine Protein (<30 mg/dL) mg/dL Urine Glucose (UA) (NEGATIVE) mg/dL Urine Ketones (NEGATIVE) mg/dL Urine Blood (NEGATIVE) Urine Nitrate (NEGATIVE) Urine Bilirubin (NEGATIVE) Urine Urobilinogen (<1 E.U./dL) E.U./dL Ur Leukocyte Esterase (NEGATIVE) Dimitri/uL Urine RBC (0-2) /hpf Urine WBC (0-6) /hpf Ur Epithelial Cells (0-5) /hpf Urine Bacteria (NEG) Blood Type Antibody Screen BBK History Checked 01/04/18 01/04/18 01/04/18 Range/Units 05:55 05:55 05:55 WBC 10.3 (4.5-11.0) 10^3/ul RBC 3.02 L (3.5-6.1) 10^6/uL Hgb 9.7 L (12.0-16.0) g/dL Hct 32.1 L (36.0-48.0) % MCV 106.3 H (80.0-105.0) fl MCH 32.1 (25.0-35.0) pg MCHC 30.2 L (31.0-37.0) g/dl RDW 22.2 H (11.5-14.5) % Plt Count 71 L (120.0-450.0) 10^3/uL MPV 10.5 (7.0-11.0) fl Gran % 92.2 H (50.0-68.0) % Lymph % (Auto) 4.1 L (22.0-35.0) % [place] % (Auto) 3.6 (1.0-6.0) % Eos % (Auto) 0.0 L (1.5-5.0) % Baso % (Auto) 0.1 (0.0-3.0) % Gran # 9.51 H (1.4-6.5) Lymph # (Auto) 0.4 L (1.2-3.4) [place] # (Auto) 0.4 (0.1-0.6) Eos # (Auto) 0.0 (0.0-0.7) Baso # (Auto) 0.01 (0.0-2.0) K/mm3 Sodium 141 (132-148) mmol/L Potassium 3.5 L (3.6-5.0) mmol/L Chloride 101 (98-107) mmol/L Carbon Dioxide 33 (21-33) mmol/L Anion Gap 11 (10-20) BUN 11 (7-21) mg/dL Creatinine 0.5 L (0.7-1.2) mg/dl Est GFR ( Amer) > 60 Est GFR (Non-Af Amer) > 60 POC Glucose (mg/dL) (65-110) mg/dL Random Glucose 151 H (70-110) mg/dL Calcium 8.0 L (8.4-10.5) mg/dL Phosphorus 2.7 (2.5-4.5) mg/dL Magnesium 2.3 H (1.7-2.2) mg/dL Total Bilirubin 2.0 H (0.2-1.3) mg/dL AST 143 H (14-36) U/L ALT 71 H (7-56) U/L Alkaline Phosphatase 854 H (38-126) U/L Total Protein 6.2 (5.8-8.3) g/dL Albumin 3.0 (3.0-4.8) g/dL Globulin 3.2 gm/dL Albumin/Globulin Ratio 0.9 L (1.1-1.8) Procalcitonin (0.19-0.49) NG/ML Urine Color (YELLOW) Urine Appearance (CLEAR) Urine pH (4.7-8.0) Ur Specific Joiner (1.005-1.035) Urine Protein (<30 mg/dL) mg/dL Urine Glucose (UA) (NEGATIVE) mg/dL Urine Ketones (NEGATIVE) mg/dL Urine Blood (NEGATIVE) Urine Nitrate (NEGATIVE) Urine Bilirubin (NEGATIVE) Urine Urobilinogen (<1 E.U./dL) E.U./dL Ur Leukocyte Esterase (NEGATIVE) Dimitri/uL Urine RBC (0-2) /hpf Urine WBC (0-6) /hpf Ur Epithelial Cells (0-5) /hpf Urine Bacteria (NEG) Blood Type A POSITIVE Antibody Screen Negative BBK History Checked Patient has bt 01/03/18 Range/Units 21:09 WBC (4.5-11.0) 10^3/ul RBC (3.5-6.1) 10^6/uL Hgb (12.0-16.0) g/dL Hct (36.0-48.0) % MCV (80.0-105.0) fl MCH (25.0-35.0) pg MCHC (31.0-37.0) g/dl RDW (11.5-14.5) % Plt Count (120.0-450.0) 10^3/uL MPV (7.0-11.0) fl Gran % (50.0-68.0) % Lymph % (Auto) (22.0-35.0) % [place] % (Auto) (1.0-6.0) % Eos % (Auto) (1.5-5.0) % Baso % (Auto) (0.0-3.0) % Gran # (1.4-6.5) Lymph # (Auto) (1.2-3.4) [place] # (Auto) (0.1-0.6) Eos # (Auto) (0.0-0.7) Baso # (Auto) (0.0-2.0) K/mm3 Sodium (132-148) mmol/L Potassium (3.6-5.0) mmol/L Chloride (98-107) mmol/L Carbon Dioxide (21-33) mmol/L Anion Gap (10-20) BUN (7-21) mg/dL Creatinine (0.7-1.2) mg/dl Est GFR ( Amer) Est GFR (Non-Af Amer) POC Glucose (mg/dL) (65-110) mg/dL Random Glucose (70-110) mg/dL Calcium (8.4-10.5) mg/dL Phosphorus (2.5-4.5) mg/dL Magnesium (1.7-2.2) mg/dL Total Bilirubin (0.2-1.3) mg/dL AST (14-36) U/L ALT (7-56) U/L Alkaline Phosphatase (38-126) U/L Total Protein (5.8-8.3) g/dL Albumin (3.0-4.8) g/dL Globulin gm/dL Albumin/Globulin Ratio (1.1-1.8) Procalcitonin (0.19-0.49) NG/ML Urine Color Dark yellow (YELLOW) Urine Appearance Clear (CLEAR) Urine pH 6.5 (4.7-8.0) Ur Specific Joiner 1.015 (1.005-1.035) Urine Protein 30 H (<30 mg/dL) mg/dL Urine Glucose (UA) Negative (NEGATIVE) mg/dL Urine Ketones Negative (NEGATIVE) mg/dL Urine Blood Trace-intact H (NEGATIVE) Urine Nitrate Negative (NEGATIVE) Urine Bilirubin Negative (NEGATIVE) Urine Urobilinogen 2.0 H (<1 E.U./dL) E.U./dL Ur Leukocyte Esterase Large H (NEGATIVE) Dimitri/uL Urine RBC 0 - 2 (0-2) /hpf Urine WBC 2 - 5 (0-6) /hpf Ur Epithelial Cells 1 - 3 (0-5) /hpf Urine Bacteria Trace (NEG) Blood Type Antibody Screen BBK History Checked Laboratory Results - last 24 hr 01/03/18 01/04/18 01/04/18 21:09 05:55 05:55 WBC 10.3 RBC 3.02 L Hgb 9.7 L Hct 32.1 L MCV 106.3 H MCH 32.1 MCHC 30.2 L RDW 22.2 H Plt Count 71 L MPV 10.5 Gran % 92.2 H Lymph % (Auto) 4.1 L [place] % (Auto) 3.6 Eos % (Auto) 0.0 L Baso % (Auto) 0.1 Gran # 9.51 H Lymph # (Auto) 0.4 L [place] # (Auto) 0.4 Eos # (Auto) 0.0 Baso # (Auto) 0.01 Sodium 141 Potassium 3.5 L Chloride 101 Carbon Dioxide 33 Anion Gap 11 BUN 11 Creatinine 0.5 L Est GFR ( Amer) > 60 Est GFR (Non-Af Amer) > 60 POC Glucose (mg/dL) Random Glucose 151 H Calcium 8.0 L Phosphorus 2.7 Magnesium 2.3 H Total Bilirubin 2.0 H AST 143 H ALT 71 H Alkaline Phosphatase 854 H Total Protein 6.2 Albumin 3.0 Globulin 3.2 Albumin/Globulin Ratio 0.9 L Procalcitonin Urine Color Dark yellow Urine Appearance Clear Urine pH 6.5 Ur Specific [place] 1.015 Urine Protein 30 H Urine Glucose (UA) Negative Urine Ketones Negative Urine Blood Trace-intact H Urine Nitrate Negative Urine Bilirubin Negative Urine Urobilinogen 2.0 H Ur Leukocyte Esterase Large H Urine RBC 0 - 2 Urine WBC 2 - 5 Ur Epithelial Cells 1 - 3 Urine Bacteria Trace Blood Type Antibody Screen BBK History Checked 01/04/18 01/04/18 01/04/18 05:55 06:30 07:36 WBC RBC Hgb Hct MCV MCH MCHC RDW Plt Count MPV Gran % Lymph % (Auto) [place] % (Auto) Eos % (Auto) Baso % (Auto) Gran # Lymph # (Auto) [place] # (Auto) Eos # (Auto) Baso # (Auto) Sodium Potassium Chloride Carbon Dioxide Anion Gap BUN Creatinine Est GFR ( Amer) Est GFR (Non-Af Amer) POC Glucose (mg/dL) 144 H Random Glucose Calcium Phosphorus Magnesium Total Bilirubin AST ALT Alkaline Phosphatase Total Protein Albumin Globulin Albumin/Globulin Ratio Procalcitonin 3.94 H Urine Color Urine Appearance Urine pH Ur Specific [place] Urine Protein Urine Glucose (UA) Urine Ketones Urine Blood Urine Nitrate Urine Bilirubin Urine Urobilinogen Ur Leukocyte Esterase Urine RBC Urine WBC Ur Epithelial Cells Urine Bacteria Blood Type A POSITIVE Antibody Screen Negative BBK History Checked Patient has bt 01/04/18 11:30 WBC RBC Hgb Hct MCV MCH MCHC RDW Plt Count MPV Gran % Lymph % (Auto) [place] % (Auto) Eos % (Auto) Baso % (Auto) Gran # Lymph # (Auto) [place] # (Auto) Eos # (Auto) Baso # (Auto) Sodium Potassium Chloride Carbon Dioxide Anion Gap BUN Creatinine Est GFR ( Amer) Est GFR (Non-Af Amer) POC Glucose (mg/dL) 228 H Random Glucose Calcium Phosphorus Magnesium Total Bilirubin AST ALT Alkaline Phosphatase Total Protein Albumin Globulin Albumin/Globulin Ratio Procalcitonin Urine Color Urine Appearance Urine pH Ur Specific [place] Urine Protein Urine Glucose (UA) Urine Ketones Urine Blood Urine Nitrate Urine Bilirubin Urine Urobilinogen Ur Leukocyte Esterase Urine RBC Urine WBC Ur Epithelial Cells Urine Bacteria Blood Type Antibody Screen BBK History Checked Critical Care Progress Note - Nutrition Nutrition: Nutrition Category Date Time Status Consistent Carbohydrate [DIET] Diets 01/04/18 Breakfast Ordered Addendum Addendum: 01/04/18 16:04 ICU Attending Addendum: Patient seen and examined. Case reviewed on round with housestaff. 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 Recently had a SDH repeat CT Head shows slighly enlarged. She is also thrombocytopenic. She had a fall last month which resulted in the right FT SDH. No surgical intervention made at the time. She rec'd last chemo 2 weeks ago. Plats are low likely from chemo and/or liver damage from mets. Cont transfuse to goal >100k Neuro checks NPO for now Must consider other causes of AMS - possible metabolic CHECK ammonia level She has a right sided effusion however no pulm symptoms at this time. She was a thora done which showed a malig effusion on the right and this is likely a reaccumulation of it. NPO SCD Dvt ppx (no heparin) and subdural hematoma presents to the ED from longterm for AMS and generalized weakness. Per son w Rest of care as noted above. David Segura MD [facility] Critical [facility] Time : 30mins
[2018-01-04] MEDS: Morphine 2 mg/ml ISec IVP PRN ×2 (14:58→21:34)
--- NOTE | 2018-01-04 15:28 | CP.PCM.CON ---
History of Present Illness - History of Present Illness History of Present Illness: 72 year old female with PMH of DM, HTN, and depression, lower back tumor, obesity with BMI 31, stage 4 lung cancer , history of subdural hematoma came in to [facility] from the shelter because of generalized weakness and transient confusion. The patient had a mechanical fall about 2 weeks ago but did not hit her head then and did not lose consciousness. The patient has chronic back and abdominal pain, but denies fever or chills, no dysphagia, no sore throat, no cough or colds, no headache currently, no diarrhea, no dysuria. Ct scan is suggestive of transverse colon colitis and right pleural effusion with consolidation. Review of Systems - Review of Systems All systems: reviewed and no additional remarkable complaints except (as per HPI ) Past Patient History - Infectious Disease Hx of Infectious Diseases: None - Tetanus Immunizations Tetanus Immunization: Unknown - Past Medical History & Family History Past Medical History?: Yes - Past Social History Smoking Status: Former Smoker - CARDIAC Hx Congestive Heart Failure: Yes Hx Hypertension: Yes - PULMONARY Hx Asthma: Yes Hx Chronic Obstructive Pulmonary Disease (COPD): Yes Hx Pneumonia: Yes - NEUROLOGICAL Hx Neurological Disorder: No - HEENT Hx HEENT Problems: Yes (glasses) - RENAL Hx Chronic Kidney Disease: No - ENDOCRINE/METABOLIC Hx Diabetes Mellitus Type 2: Yes - HEMATOLOGICAL/ONCOLOGICAL Hx Anemia: Yes Hx Cancer: Yes (Lung CA w/ mets to liver and bone) Hx Chemotherapy: Yes (as per patient she finished tx) Hx Metastesis: Yes - INTEGUMENTARY Hx Dermatological Problems: Yes Other/Comment: SACRAL PRESSURE ULCER stg 2 1cm x 1cm wound bed is red/pink surounded by reddish skin optifoam intact, multiple purple and red skin discolorations to both legs and arms, thick long hard toenails, radiation markings to abd and chest - MUSCULOSKELETAL/RHEUMATOLOGICAL Hx Arthritis: Yes Hx Back Pain: Yes Hx Falls: Yes Hx Unsteady Gait: Yes - GASTROINTESTINAL Hx Gastrointestinal Disorders: Yes (constipation/ nausea) - GENITOURINARY/GYNECOLOGICAL Hx Urinary Tract Infection: Yes - PSYCHIATRIC Hx Anxiety: Yes Hx Depression: Yes Hx Substance Use: No - SURGICAL HISTORY Hx Appendectomy: Yes Hx Orthopedic Surgery: Yes - ANESTHESIA Hx Anesthesia Reactions: No Hx Malignant Hyperthermia: No Meds Allergies/Adverse Reactions: Allergies Allergy/AdvReac Type Severity Reaction Status Date / Time Sulfa (Sulfonamide Allergy ANAPHYLAXIS Verified 12/20/17 14:49 Antibiotics) - Medications Medications: Current Medications Acetaminophen (Tylenol 325mg Tab) 650 mg PO Q6H PRN PRN Reason: Fever >100.4 F Albuterol/Ipratropium (Duoneb 3 Mg/0.5 Mg (3 Ml) Ud) 3 ml IH [id number] [facility] Last Admin: 01/04/18 02:35 Dose: Not Given Albuterol/Ipratropium (Duoneb 3 Mg/0.5 Mg (3 Ml) Ud) 3 ml IH Q2H PRN PRN Reason: Shortness of Breath Alprazolam (Xanax) 0.25 mg PO TID PRN; Protocol PRN Reason: Anxiety Stop: 01/10/18 19:15 Alprazolam (Xanax) 0.25 mg PO BID KIMMY PRN Reason: Protocol Stop: 01/11/18 10:01 Fentanyl (Duragesic) 1 patch TD Q72 [facility] Doxycycline Hyclate 100 mg/ (Sodium Chloride) 100 mls @ 100 mls/hr IVPB Q12 KIMMY PRN Reason: Protocol Last Admin: 01/03/18 22:38 Dose: 100 mls/hr Cefepime HCl (Maxipime 1gm) 1 gm in 100 mls @ 100 mls/hr IVPB Q12 [facility] PRN Reason: Protocol Last Admin: 01/04/18 01:18 Dose: 100 mls/hr Morphine Sulfate (Morphine Immediate Release Tab) 15 mg PO Q6 PRN PRN Reason: Pain, moderate (4-7) Last Admin: 01/04/18 04:35 Dose: 15 mg Ondansetron HCl (Zofran Inj) 4 mg IVP Q6H PRN PRN Reason: Nausea/Vomiting Pantoprazole Sodium (Protonix Ec Tab) 40 mg PO 0630 [facility] Last Admin: 01/04/18 06:21 Dose: 40 mg Polyethylene Glycol (Miralax) 17 gm PO DAILY [facility] Physical Exam - Constitutional Appears: Chronically Ill - Head Exam Head Exam: NORMAL INSPECTION - ENT Exam ENT Exam: Mucous Membranes Moist - Neck Exam Neck exam: Negative for: Meningismus - Respiratory Exam Respiratory Exam: Decreased Breath Sounds - Cardiovascular Exam Cardiovascular Exam: +S1, +S2 Additional comments: anterior chest wall port in place - GI/Abdominal Exam GI & Abdominal Exam: Soft. absent: Tenderness Results - Vital Signs Recent Vital Signs: Last Vital Signs Temp 97.6 F 01/04/18 01:39 Pulse 79 01/04/18 05:50 Resp 12 01/04/18 05:50 BP 146/59 L 01/04/18 04:00 Pulse Ox 94 L 01/04/18 05:50 - Labs Result Diagrams: 01/04/18 05:55 01/04/18 05:55 Labs: Laboratory Results - last 24 hr 01/03/18 01/04/18 01/04/18 21:09 05:55 05:55 WBC 10.3 RBC 3.02 L Hgb 9.7 L Hct 32.1 L MCV 106.3 H MCH 32.1 MCHC 30.2 L RDW 22.2 H Plt Count 71 L MPV 10.5 Gran % 92.2 H Lymph % (Auto) 4.1 L [place] % (Auto) 3.6 Eos % (Auto) 0.0 L Baso % (Auto) 0.1 Gran # 9.51 H Lymph # (Auto) 0.4 L [place] # (Auto) 0.4 Eos # (Auto) 0.0 Baso # (Auto) 0.01 Sodium 141 Potassium 3.5 L Chloride 101 Carbon Dioxide 33 Anion Gap 11 BUN 11 Creatinine 0.5 L Est GFR ( Amer) > 60 Est GFR (Non-Af Amer) > 60 Random Glucose 151 H Calcium 8.0 L Phosphorus 2.7 Magnesium 2.3 H Total Bilirubin 2.0 H AST 143 H ALT 71 H Alkaline Phosphatase 854 H Total Protein 6.2 Albumin 3.0 Globulin 3.2 Albumin/Globulin Ratio 0.9 L Urine Color Dark yellow Urine Appearance Clear Urine pH 6.5 Ur Specific [place] 1.015 Urine Protein 30 H Urine Glucose (UA) Negative Urine Ketones Negative Urine Blood Trace-intact H Urine Nitrate Negative Urine Bilirubin Negative Urine Urobilinogen 2.0 H Ur Leukocyte Esterase Large H Urine RBC 0 - 2 Urine WBC 2 - 5 Ur Epithelial Cells 1 - 3 Urine Bacteria Trace BBK History Checked 01/04/18 05:55 WBC RBC Hgb Hct MCV MCH MCHC RDW Plt Count MPV Gran % Lymph % (Auto) [place] % (Auto) Eos % (Auto) Baso % (Auto) Gran # Lymph # (Auto) [place] # (Auto) Eos # (Auto) Baso # (Auto) Sodium Potassium Chloride Carbon Dioxide Anion Gap BUN Creatinine Est GFR ( Amer) Est GFR (Non-Af Amer) Random Glucose Calcium Phosphorus Magnesium Total Bilirubin AST ALT Alkaline Phosphatase Total Protein Albumin Globulin Albumin/Globulin Ratio Urine Color Urine Appearance Urine pH Ur Specific [place] Urine Protein Urine Glucose (UA) Urine Ketones Urine Blood Urine Nitrate Urine Bilirubin Urine Urobilinogen Ur Leukocyte Esterase Urine RBC Urine WBC Ur Epithelial Cells Urine Bacteria BBK History Checked Patient has bt Assessment & Plan - Assessment and Plan (Free Text) Plan: Assessment R/O sepsis due to right sided HCAP with pleural effusion, R/O sepsis due to transverse colon colitis subdural hematoma in the head history of sepsis due to right sided HCAP, S/P neutropenia history of sepsis due to right middle lobe HCAP on top of ESBL Klebsiella and Proteus UTI stage 3 decubitus ulcer history of Systemic viral illness with Influenza and acute bronchitis stage 4 lung cancer history of asymptomatic bacteriuria with VRE in the urine DM HTN depression lower back tumor obesity with BMI 30 Plan started patient on Vancomycin, Merrem and Doxycycline pending blood, urine cx, stool cx and fecal leukocytes, PCT; reviewed CT C/A/P Neurosurgery evaluating subdural hematoma overall prognosis is poor
--- NOTE | 2018-01-04 15:46 | CON ---
DATE: 01/04/2018 PULMONARY CRITICAL CARE CONSULT REFERRING PHYSICIAN: Fortino Cain MD. REASON FOR CONSULT: Small cell lung cancer with metastatic disease, chronic obstructive lung disease, pleural effusion. HISTORY OF PRESENT ILLNESS: This is a 72-year-old female, well known to me from previous admission, has a metastatic small cell cancer involving the lungs, liver, spine requiring radiation and chemotherapy, also radiation to the lungs. Disease has been progressively involving the retroperitoneal area with lymphadenopathy, chronic lung disease, hypertension, diabetes, GERD, insomnia, anxiety disorder, has a right-sided pleural effusion, recently had a fall with subdural hematoma, presently was at subacute facility where she was not feeling well, weak, tired, sleepy. Brought into emergency room. Presently, she is Intensive Care Unit, lying in the bed, feels weak, tired and sleepy. Short of breath with exertion. No hemoptysis. No hematemesis. No hematuria. No diarrhea reported. PAST MEDICAL HISTORY: As per history of present illness. ALLERGY: TO SULFA. FAMILY HISTORY: No significant cardiopulmonary disease reported. SOCIAL HISTORY: She is a former smoker. Denied any alcohol use. MEDICATIONS: She is on doxycycline 100 mg twice a day, DuoNeb every 2 hours p.r.n. and every 6 hours [id number], fentanyl patch every 72 hours, meropenem 1 g IV every 8 hours, MiraLax 17 g daily, morphine 2 mg IV every 4 hours p.r.n., also morphine immediate release 150 mg every 6 hours p.r.n., Protonix 40 mg daily, Tylenol p.r.n., vancomycin 1 g IV every 12 hours, Xanax 0.25 mg three times a day p.r.n. and also Xanax 0.25 mg twice a day [id number], Zofran 4 mg every 6 hours. REVIEW OF SYSTEMS: No headache, not much rhinitis. Has a cough and shortness of breath. No hemoptysis. No chest pain. No nausea at present. No vomiting. No dysuria. No leg pain. No leg swelling. PHYSICAL EXAMINATION: GENERAL: Lying in the bed. VITAL SIGNS: Temp is 98, heart rate is 83, respiratory rate is 18, blood pressure 128/73, pulse ox 98% on nasal cannula. HEENT: Dry mucous membrane. Crowded airway. NECK: Supple. No JVD. LUNGS: Have one third up decreased breath sounds on the right lung. HEART: S1 and S2. ABDOMEN: Soft, nontender, nondistended. EXTREMITIES: Some ecchymotic area. No edema. NEUROLOGICAL: Awake and alert. Follows simple command. LABORATORY DATA: Shows hemoglobin 9.7, hematocrit 32.1, WBC 10.3, platelet count is 71. INR 1.21, PTT 21. VBG showed pH 7.40 that was on 12/20/2017. CAT scan of the head was unremarkable for new finding. Does have an old subdural hematoma. CAT scan of the chest suggested of right pleural effusion. There is also a small left pleural effusion, stable tumor burden above and below the diaphragm. IMPRESSION AND PLAN: Small cell extensive disease involving lungs, liver, spine, retroperitoneal nodes; obstructive lung disease; right persistent pleural effusion, may increased a little bit; depression; anxiety disorder; activities of daily living dysfunction; high procalcitonin; may have pneumonia. We will consult Dr. Lars Alvarado for possible therapeutic thoracentesis on the right side. Continue inhaled bronchodilator. Antibiotics as per Infectious Diseases. Gastric prophylaxis. Also had a thrombocytopenia, need to follow up platelets closely. Fall precaution. Aspiration precaution. Also, we will add nystatin for the mouth. Thank you and we will follow with you. Robert Eastman MD
[2018-01-04 17:29] LABS: ARTERIAL BLOOD GAS HCO3 29.6 mmol/L (21-28); ARTERIAL BLOOD GAS HEMOGLOBIN 8.8 g/dL (11.7-17.4); ARTERIAL BLOOD GAS O2 CAPACITY 12.1 mL/dl (16-24); ARTERIAL BLOOD GAS O2 CONTENT 11.6 ML/dl (15-23); ARTERIAL BLOOD GAS O2 SAT 95.5 % (95-98); ARTERIAL BLOOD GAS PCO2 38 mm/Hg (35-45); ARTERIAL BLOOD GAS TCO2 30.8 mmol.L (22-28)
[2018-01-04] MEDS: Nystatin 100,000 Units/ml Oral Susp 5 ml UD PO SCH ×2 (17:47→22:29)
[2018-01-04 18:55] LABS: HEMOGLOBIN 8.5 g/dL (12.0-16.0); MEAN CELL VOLUME 106.8 fl (80.0-105.0); MEAN CORPUSCULAR HEMOGLOBIN 32.3 pg (25.0-35.0); MEAN CORPUSCULAR HGB CONC 30.2 g/dl (31.0-37.0); MEAN PLATELET VOLUME 9.4 fl (7.0-11.0); RBC 2.63 10^6/uL (3.5-6.1); RED CELL DISTRIBUTION WIDTH 22.3 % (11.5-14.5); WHITE BLOOD COUNT 9.3 10^3/ul (4.5-11.0)
[2018-01-04] MEDS: Insulin Reg-LOW-Coverage SC SCH (22:31)
[2018-01-04] MEDS ORDERED: Morphine 2 mg/ml ISec IVP STA (23:56)
[2018-01-05] MEDS: Albuterol-Ipratrop 3 mg / 0.5 (3 ml) UD IH SCH ×4 (01:25→20:11)
[2018-01-05] MEDS: Morphine 2 mg/ml ISec IVP PRN ×4 (02:35→15:19)
--- NOTE | 2018-01-05 03:16 | HP ---
HISTORY OF PRESENT ILLNESS: The patient is a 72-year-old, who was recently seen in rehab. She complained of right upper quadrant pain. The patient states this pain has got a little worse than before. She was not able to participate in therapy and in the same time, after I saw the patient, Dr. Puente called me also because her son was concerned that her right upper quadrant pain has gotten worse, so it was decided to bring her to emergency room for further evaluation to see if there is any change in status. The patient did not have any fever or chills in the custodial; however, she was complaining of cough and was unable to cough, because it was hurting. She denies any nausea or vomiting. She did have loss of appetite. She was able to eat only 50% of the food that she was given. She was recently discharged from [facility] on 07/23/2017. PAST MEDICAL HISTORY: The patient has significant past medical history of; 1. 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 2. COPD. 3. Hypertension. 4. Auf-noenppb-vcleanuct diabetes. 5. Subdural hematoma, on last admission. 6. Chronic back pain. 7. Generalized lymphadenopathy. 8. Peptic ulcer disease. ALLERGIES: SHE IS ALLERGIC TO SULFA MEDICATIONS. SOCIAL HISTORY: She is single. She used to be a heavy smoker, quit a few years ago. MEDICATIONS: In the custodial, per JUN. PHYSICAL EXAMINATION: GENERAL: She looks pale. She looks sick. She has alopecia secondary to chemotherapy. However, she is able to communicate, answer simple questions. VITAL SIGNS: She is afebrile, pulse 82, respirations 18, blood pressure 134/59. LUNGS: Bilateral fair airflow in upper lung region; however, decreased at bases. HEART: S1 and S2, audible. ABDOMEN: Soft, nontender except right upper quadrant area and in the low rib area, where she has palpable tenderness. Abdomen is soft otherwise. Bowel sounds are positive. EXTREMITIES: Bilateral legs, +2 edema, has generalized bruises on her both upper and lower extremities. LABORATORY EXAM: WBC is 9.3, hemoglobin 8.5, hematocrit 28, and platelet of 140. PT is 13.8, and INR 1.21. Chemistry; sodium 141, potassium 3.5, chloride 101, CO2 of 33. BUN 11, creatinine 0.5, blood sugar of 151. Total bili 2. ALT 71, AST 143. Procalcitonin is 3.94. Blood cultures are negative. CT scan of abdomen and pelvis shows modest interval increase in the right pleural effusion and new trace left pleural effusion, sclerotic metastatic lumbar spine disease. ASSESSMENT: 1. Right pleural effusion. 2. Metastatic lung cancer. 3. History of hypertension. 4. Hyperlipidemia. PLAN: Currently, the patient is on doxycycline. She is getting nebulizer treatment. She is on Duragesic patch. She is on meropenem. She has been started on . Dr. Pineda has been consulted. We will continue to give antibiotics, nebulizer treatment, and analgesic as needed. Fortino Cain MD
--- NOTE | 2018-01-05 06:14 | CP.PCM.PN ---
<Joseph Drew - Last Filed: 01/05/18 09:05> Subjective - Date & Time of Evaluation Date of Evaluation: 01/05/18 Time of Evaluation: 06:11 - Subjective Subjective: GI Fellow PGY4, No acute overnight events. 1 BM lastnight. 5pt ROS neg except for above. Objective - Vital Signs/Intake and Output Vital Signs (last 24 hours): Temp Pulse Resp BP Pulse Ox 98.2 F 85 14 135/55 L 98 01/04/18 18:00 01/05/18 01:20 01/05/18 01:20 01/05/18 01:00 01/05/18 01:20 Intake and Output: 01/04/18 01/05/18 18:59 06:59 Intake Total 1324 Output Total 250 Balance 1074 - Medications Medications: Current Medications Acetaminophen (Tylenol 325mg Tab) 650 mg PO Q6H PRN PRN Reason: Fever >100.4 F Albuterol/Ipratropium (Duoneb 3 Mg/0.5 Mg (3 Ml) Ud) 3 ml IH [id number] [facility] Last Admin: 01/05/18 01:25 Dose: 3 ml Albuterol/Ipratropium (Duoneb 3 Mg/0.5 Mg (3 Ml) Ud) 3 ml IH Q2H PRN PRN Reason: Shortness of Breath Alprazolam (Xanax) 0.25 mg PO TID PRN; Protocol PRN Reason: Anxiety Stop: 01/10/18 19:15 Alprazolam (Xanax) 0.25 mg PO BID KIMMY PRN Reason: Protocol Stop: 01/11/18 10:01 Last Admin: 01/04/18 17:46 Dose: 0.25 mg Fentanyl (Duragesic) 1 patch TD Q72 [facility] Doxycycline Hyclate 100 mg/ (Sodium Chloride) 100 mls @ 100 mls/hr IVPB Q12 [facility] PRN Reason: Protocol Last Admin: 01/04/18 22:30 Dose: 100 mls/hr Vancomycin HCl (Vancomycin 1gm) 1 gm in 250 mls @ 167 mls/hr IVPB Q12H [facility] PRN Reason: Protocol Last Admin: 01/04/18 20:00 Dose: 167 mls/hr Meropenem (Merrem Iv 1 Gm Premix) 50 mls @ 100 mls/hr IVPB Q8 [facility] PRN Reason: Protocol Last Admin: 01/04/18 22:29 Dose: 100 mls/hr Insulin Human Regular (Humulin R Low) 0 units SC ACHS [facility] PRN Reason: Protocol Last Admin: 01/04/18 22:31 Dose: Not Given Morphine Sulfate (Morphine Immediate Release Tab) 15 mg PO Q6 PRN PRN Reason: Pain, moderate (4-7) Last Admin: 01/04/18 12:12 Dose: 15 mg Morphine Sulfate (Morphine) 2 mg IVP Q4H PRN PRN Reason: Pain, moderate (4-7) Last Admin: 01/05/18 02:35 Dose: 2 mg Nystatin (Nystatin Oral Susp) 5 ml PO QID [facility] Last Admin: 01/04/18 22:29 Dose: 5 ml Ondansetron HCl (Zofran Inj) 4 mg IVP Q6H PRN PRN Reason: Nausea/Vomiting Pantoprazole Sodium (Protonix Ec Tab) 40 mg PO 0630 [facility] Last Admin: 01/04/18 06:21 Dose: 40 mg Polyethylene Glycol (Miralax) 17 gm PO DAILY [facility] Last Admin: 01/04/18 09:34 Dose: 17 gm - Labs Labs: 01/04/18 18:52 01/04/18 05:55 PT 13.8 SECONDS (9.4-12.5) H 01/03/18 16:45 INR 1.21 01/03/18 16:45 APTT 21.2 Seconds (25.1-36.5) L 01/03/18 16:45 Assessment and Plan - Assessment and Plan (Free Text) Assessment: 72F with metastatic small cell lung ca presenting with AMS, weakness. #Small cell lung CA, stage IV - mets to liver, spine #Abnormal LFT #Subdural hematoma, chronic #GERD #DM #HTN #COPD #Constipation PLAN: -CT reviewed. Transverse colon is collapsed. No signs of colitis or other acute changes of the colon. No reported diarrhea, bleeding. -Continue supportive care per ICU -LFT abnormalities likely due to metastatic disease, mild worsening compared to last week. -Direct bili, to r/o hemolytic process. -Abdominal U/S to r/o gallstones, choledocolithiasis -Avoid hepatotoxic meds -Ammonia mildly elevated. Switch MiraLax (hx of constipation) to lactulose to optimize status. Goal 1-2 BMs per day. Titrate as needed. Avoid dehydration as she has poor PO intake. -Continue PPI -Zofran PRN -Abx per ID. She is on multiple (Doxy, merrem, vanco). -Encourage eating -No endoscopic procedures planned. <Breanna,Kovil V - Last Filed: 01/05/18 21:53> Objective - Vital Signs/Intake and Output Vital Signs (last 24 hours): Temp Pulse Resp BP Pulse Ox 97.8 F 92 H 15 141/65 99 01/05/18 18:00 01/05/18 20:30 01/05/18 20:30 01/05/18 20:00 01/05/18 20:30 Intake and Output: 01/05/18 01/06/18 18:59 06:59 Intake Total 1270 Output Total 1095 Balance 175 - Medications Medications: Current Medications Acetaminophen (Tylenol 325mg Tab) 650 mg PO Q6H PRN PRN Reason: Fever >100.4 F Albuterol/Ipratropium (Duoneb 3 Mg/0.5 Mg (3 Ml) Ud) 3 ml IH [id number] [facility] Last Admin: 01/05/18 20:11 Dose: 3 ml Albuterol/Ipratropium (Duoneb 3 Mg/0.5 Mg (3 Ml) Ud) 3 ml IH Q2H PRN PRN Reason: Shortness of Breath Alprazolam (Xanax) 0.25 mg PO TID PRN; Protocol PRN Reason: Anxiety Stop: 01/10/18 19:15 Alprazolam (Xanax) 0.25 mg PO BID KIMMY PRN Reason: Protocol Stop: 01/11/18 10:01 Last Admin: 01/05/18 21:19 Dose: 0.25 mg Famotidine (Pepcid) 40 mg PO HS [facility] Last Admin: 01/05/18 21:12 Dose: 40 mg Fentanyl (Duragesic) 1 patch TD Q72 [facility] Doxycycline Hyclate 100 mg/ (Sodium Chloride) 100 mls @ 100 mls/hr IVPB Q12 [facility] PRN Reason: Protocol Last Admin: 01/05/18 21:16 Dose: 100 mls/hr Vancomycin HCl (Vancomycin 1gm) 1 gm in 250 mls @ 167 mls/hr IVPB Q12H [facility] PRN Reason: Protocol Last Admin: 01/05/18 20:38 Dose: 167 mls/hr Meropenem (Merrem Iv 1 Gm Premix) 50 mls @ 100 mls/hr IVPB Q8 [facility] PRN Reason: Protocol Last Admin: 01/05/18 21:08 Dose: 100 mls/hr Insulin Human Regular (Humulin R Low) 0 units SC ACHS [facility] PRN Reason: Protocol Last Admin: 01/05/18 16:18 Dose: Not Given Lactulose (Enulose) 20 gm PO HS [facility] Last Admin: 01/05/18 21:08 Dose: 20 gm Morphine Sulfate (Morphine Immediate Release Tab) 15 mg PO Q6 PRN PRN Reason: Pain, moderate (4-7) Last Admin: 01/04/18 12:12 Dose: 15 mg Morphine Sulfate (Morphine) 4 mg IVP Q2 PRN PRN Reason: Pain, moderate (4-7) Last Admin: 01/05/18 19:58 Dose: 4 mg Nystatin (Nystatin Oral Susp) 5 ml PO QID [facility] Last Admin: 01/05/18 21:08 Dose: 5 ml Ondansetron HCl (Zofran Inj) 4 mg IVP Q6H PRN PRN Reason: Nausea/Vomiting - Labs Labs: 01/05/18 11:20 01/05/18 06:00 PT 13.8 SECONDS (9.4-12.5) H 01/03/18 16:45 INR 1.21 01/03/18 16:45 APTT 21.2 Seconds (25.1-36.5) L 01/03/18 16:45 Attending/Attestation - Attestation I have personally seen and examined this patient.: Yes I have fully participated in the care of the patient.: Yes I have reviewed all pertinent clinical information, including history, physical exam and plan: Yes Notes (Text): This is an addendum to GI progress report dictated by the GI Fellow.The patient was seen and examined earlier. Medical records, lab studies, imagings were reviewed. Last 24 hours events reviewed. Agreed with the above treatment plan as outlined in GI Fellow 's notes with the addition of the following Abdominal ultrasound reviewed Patient has poor intake by mouth On examination mild tenderness in the epigastric area Patient is endeutolus (no teeth) Poor PO intake would recommend to change the diet to a puree diet Follow up LFT and CBC 01/05/18 21:49
[2018-01-05 06:21] LABS: ARTERIAL BLOOD GAS HCO3 28.7 mmol/L (21-28); ARTERIAL BLOOD GAS HEMOGLOBIN 8.4 g/dL (11.7-17.4); ARTERIAL BLOOD GAS O2 CAPACITY 11.6 mL/dl (16-24); ARTERIAL BLOOD GAS O2 CONTENT 10.9 ML/dl (15-23); ARTERIAL BLOOD GAS O2 SAT 93.9 % (95-98); ARTERIAL BLOOD GAS PCO2 32 mm/Hg (35-45); ARTERIAL BLOOD GAS PH 7.56 (7.35-7.45); ARTERIAL BLOOD GAS TCO2 29.7 mmol.L (22-28)
[2018-01-05] MEDS: Pantoprazole 40 mg EC Tab PO SCH (06:28)
[2018-01-05] MEDS: Meropenem IV 1 gm in NS 50 ML IVPB SCH ×3 (06:28→21:08)
[2018-01-05 06:57] LABS: BASO # 0.01 K/mm3 (0.0-2.0); BASO % 0.1 % (0.0-3.0); EOS % 0.1 % (1.5-5.0); GRAN # 7.63 (1.4-6.5); GRAN % 90.2 % (50.0-68.0); HEMOGLOBIN 9.2 g/dL (12.0-16.0); LYMPH # 0.4 (1.2-3.4); LYMPH % 5.1 % (22.0-35.0); MEAN CORPUSCULAR HEMOGLOBIN 32.4 pg (25.0-35.0); MEAN CORPUSCULAR HGB CONC 30.3 g/dl (31.0-37.0); MEAN PLATELET VOLUME 9.5 fl (7.0-11.0); MONO # 0.4 (0.1-0.6); MONO % 4.5 % (1.0-6.0); RBC 2.84 10^6/uL (3.5-6.1); RED CELL DISTRIBUTION WIDTH 22.5 % (11.5-14.5); WHITE BLOOD COUNT 8.5 10^3/ul (4.5-11.0)
[2018-01-05 07:09] LABS: ALBUMIN 3.2 g/dL (3.0-4.8); ALT/SGPT 60 U/L (7-56); AST/SGOT 140 U/L (14-36); BILIRUBIN,DIRECT 1.6 mg/dL (0.0-0.4); BLOOD UREA NITROGEN 9 mg/dL (7-21); CALCIUM 8.1 mg/dL (8.4-10.5); GFR NON-AFRICAN AMERICAN > 60
[2018-01-05] MEDS: Insulin Reg-LOW-Coverage SC SCH ×4 (08:00→23:35)
[2018-01-05] MEDS: Vancomycin 1gm in NS 250ml 1 GM/250 ML BAG IVPB SCH ×2 (08:22→20:38)
[2018-01-05] MEDS ORDERED: Morphine 2 mg/ml ISec IVP STA ×3 (08:38→18:40)
--- NOTE | 2018-01-05 09:10 | CP.CCUPN ---
<Elvia Moreno - Last Filed: 01/05/18 11:37> CCU Subjective - Physician Review Subjective (Free Text): ICU progress note for Dr. Shah Patient seen and examined this morning at bedside. resting comfortably in bed. AOx3 Denies n/v/f/c/d, HE, CP, SOB, abdominal pain. Patient does complain of increasing back pain. She is tolerating her diet well. 01/05/18 09:08 CCU Objective - Vital Signs / Intake & Output Vital Signs (Last 4 hours): Vital Signs Temp Pulse Resp BP Pulse Ox 01/05/18 07:50 74 14 99 01/05/18 07:40 76 16 99 01/05/18 07:30 87 72 H 98 01/05/18 07:27 98.1 F 01/05/18 07:20 76 24 98 01/05/18 07:10 89 16 97 01/05/18 07:00 77 22 137/53 L 96 01/05/18 06:50 82 45 H 97 01/05/18 06:40 83 92 L 01/05/18 06:30 75 35 H 96 01/05/18 06:20 87 01/05/18 06:18 91 H 01/05/18 06:06 83 25 H 01/05/18 06:00 76 36 H 133/58 L 95 01/05/18 05:50 102 H 24 96 01/05/18 05:40 85 28 H 97 01/05/18 05:30 87 19 97 01/05/18 05:20 87 20 99 01/05/18 05:10 87 37 H 94 L Intake and Output (Last 8hrs): Intake & Output 01/04/18 01/05/18 01/05/18 22:59 06:59 14:59 Intake Total 1106 600 Output Total 250 170 Balance 856 430 Intake: IV 420 600 Left Forearm 420 Right Subclavian 600 Oral 395 Blood Product 291 Apheresis Plts Acda Lr 291 Irr Unit [id number] Output: Urine 250 170 Urine, Voided 250 170 Other: # Bowel Movements 1 - Physical Exam Pupils: Positive for: PERRL Extroacular Muscles: Positive for: EOMI Mouth: Positive for: Moist Mucous Membranes Neck: Positive for: Normal Range of Motion Respiratory/Chest: Positive for: Rhonchi (noted to right lung base) Cardiovascular: Positive for: Regular Rate and Rhythm. Negative for: Murmurs Abdomen: Positive for: Tenderness (minimal right sided abdominal tenderness. ), Guarding. Negative for: Rebound Back: Positive for: Normal Inspection. Negative for: CVA Tenderness, Midline Tenderness, Paraspinal Tenderness Upper Extremity: Positive for: Normal ROM Lower Extremity: Positive for: Normal ROM, Other (multiple areas of ecchymosis noted to lower legs bilaterally. ) Neurological: Positive for: GCS=15, Speech Normal Skin: Positive for: Warm, Dry, Normal Color Psychiatric: Positive for: Alert, Normal Affect, Normal Mood - Medications Active Medications: Active Medications Generic Name Dose Route Start Last Admin Trade Name Freq PRN Reason Stop Dose Admin Acetaminophen 650 mg 01/03/18 19:18 Tylenol 325mg Tab PO Q6H PRN Fever >100.4 F Albuterol/Ipratropium 3 ml 01/03/18 20:00 01/05/18 07:39 Duoneb 3 Mg/0.5 Mg (3 Ml) Ud IH Not Given [id number] KIMMY Albuterol/Ipratropium 3 ml 01/03/18 19:18 Duoneb 3 Mg/0.5 Mg (3 Ml) Ud IH Q2H PRN Shortness of Breath Alprazolam 0.25 mg 01/03/18 19:14 Xanax PO 01/10/18 19:15 TID PRN Anxiety Protocol Alprazolam 0.25 mg 01/04/18 10:00 01/04/18 17:46 Xanax PO 01/11/18 10:01 0.25 mg BID KIMMY Administration Protocol Fentanyl 1 patch 01/06/18 10:00 Duragesic TD Q72 KIMMY Doxycycline Hyclate 100 mg/ 100 mls @ 100 mls/hr 01/03/18 22:00 01/04/18 22: 30 Sodium Chloride IVPB 100 mls/hr Q12 KIMMY Administration Protocol Vancomycin HCl 1 gm in 250 mls @ 167 mls/hr 01/04/18 07:00 01/05/18 08:22 Vancomycin 1gm IVPB 167 mls/hr Q12H KIMMY Administration Protocol Meropenem 50 mls @ 100 mls/hr 01/04/18 07:00 01/05/18 06:28 Merrem Iv 1 Gm Premix IVPB 100 mls/hr Q8 [facility] Administration Protocol Insulin Human Regular 0 units 01/04/18 22:00 01/05/18 08:00 Humulin R Low SC 1 unit ACHS [facility] Administration Protocol Lactulose 20 gm 01/05/18 22:00 Enulose PO HS KIMMY Morphine Sulfate 15 mg 01/03/18 19:14 01/04/18 12:12 Morphine Immediate Release Tab PO 15 mg Q6 PRN Administration Pain, moderate (4-7) Morphine Sulfate 2 mg 01/05/18 08:38 Morphine IVP Q3 PRN Pain, moderate (4-7) Nystatin 5 ml 01/04/18 18:00 01/04/18 22:29 Nystatin Oral Susp PO 5 ml QID [facility] Administration Ondansetron HCl 4 mg 01/03/18 19:18 Zofran Inj IVP Q6H PRN Nausea/Vomiting Pantoprazole Sodium 40 mg 01/04/18 06:30 01/05/18 06:28 Protonix Ec Tab PO 40 mg 0630 [facility] Administration - Patient Studies Lab Studies: Lab Studies 01/05/18 01/05/18 01/05/18 Range/Units 07:21 06:00 06:00 WBC (4.5-11.0) 10^3/ul RBC (3.5-6.1) 10^6/uL Hgb (12.0-16.0) g/dL Hct (36.0-48.0) % MCV (80.0-105.0) fl MCH (25.0-35.0) pg MCHC (31.0-37.0) g/dl RDW (11.5-14.5) % Plt Count (120.0-450.0) 10^3/uL MPV (7.0-11.0) fl Gran % (50.0-68.0) % Lymph % (Auto) (22.0-35.0) % Newton % (Auto) (1.0-6.0) % Eos % (Auto) (1.5-5.0) % Baso % (Auto) (0.0-3.0) % Gran # (1.4-6.5) Lymph # (Auto) (1.2-3.4) Newton # (Auto) (0.1-0.6) Eos # (Auto) (0.0-0.7) Baso # (Auto) (0.0-2.0) K/mm3 pCO2 32 L (35-45) mm/Hg pO2 59.0 L (80-100) mm/Hg HCO3 28.7 H (21-28) mmol/L ABG pH 7.56 H (7.35-7.45) ABG Total CO2 29.7 H (22-28) mmol.L ABG O2 Saturation 93.9 L (95-98) % ABG O2 Content 10.9 L (15-23) ML/dl ABG Base Excess 6.2 H (-2.0-3.0) mmol/L ABG Hemoglobin 8.4 L (11.7-17.4) g/dL ABG Carboxyhemoglobin 1.7 H (0.5-1.5) % POC ABG HHb (Measured) 5.9 H (0-5) % ABG Methemoglobin 0.8 (0.0-3.0) % ABG O2 Capacity 11.6 L (16-24) mL/dl Hgb O2 Saturation 91.6 L (95.0-98.0) % FiO2 28.0 % Sodium 141 (132-148) mmol/L Potassium 3.6 (3.6-5.0) mmol/L Chloride 101 (98-107) mmol/L Carbon Dioxide 32 (21-33) mmol/L Anion Gap 11 (10-20) BUN 9 (7-21) mg/dL Creatinine 0.4 L (0.7-1.2) mg/dl Est GFR ( Amer) > 60 Est GFR (Non-Af Amer) > 60 POC Glucose (mg/dL) 173 H (65-110) mg/dL Random Glucose 184 H (70-110) mg/dL Calcium 8.1 L (8.4-10.5) mg/dL Total Bilirubin 1.8 H (0.2-1.3) mg/dL Direct Bilirubin 1.6 H (0.0-0.4) mg/dL AST 140 H (14-36) U/L ALT 60 H (7-56) U/L Alkaline Phosphatase 825 H (38-126) U/L Ammonia (9-33) umol/L Total Protein 6.5 (5.8-8.3) g/dL Albumin 3.2 (3.0-4.8) g/dL Globulin 3.3 gm/dL Albumin/Globulin Ratio 1.0 L (1.1-1.8) Procalcitonin (0.19-0.49) NG/ML 01/05/18 01/04/18 01/04/18 Range/Units 06:00 21:51 19:11 WBC 8.5 (4.5-11.0) 10^3/ul RBC 2.84 L (3.5-6.1) 10^6/uL Hgb 9.2 L (12.0-16.0) g/dL Hct 30.4 L (36.0-48.0) % MCV 107.0 H (80.0-105.0) fl MCH 32.4 (25.0-35.0) pg MCHC 30.3 L (31.0-37.0) g/dl RDW 22.5 H (11.5-14.5) % Plt Count 124 (120.0-450.0) 10^3/uL MPV 9.5 (7.0-11.0) fl Gran % 90.2 H (50.0-68.0) % Lymph % (Auto) 5.1 L (22.0-35.0) % Newton % (Auto) 4.5 (1.0-6.0) % Eos % (Auto) 0.1 L (1.5-5.0) % Baso % (Auto) 0.1 (0.0-3.0) % Gran # 7.63 H (1.4-6.5) Lymph # (Auto) 0.4 L (1.2-3.4) Newton # (Auto) 0.4 (0.1-0.6) Eos # (Auto) 0.0 (0.0-0.7) Baso # (Auto) 0.01 (0.0-2.0) K/mm3 pCO2 (35-45) mm/Hg pO2 (80-100) mm/Hg HCO3 (21-28) mmol/L ABG pH (7.35-7.45) ABG Total CO2 (22-28) mmol.L ABG O2 Saturation (95-98) % ABG O2 Content (15-23) ML/dl ABG Base Excess (-2.0-3.0) mmol/L ABG Hemoglobin (11.7-17.4) g/dL ABG Carboxyhemoglobin (0.5-1.5) % POC ABG HHb (Measured) (0-5) % ABG Methemoglobin (0.0-3.0) % ABG O2 Capacity (16-24) mL/dl Hgb O2 Saturation (95.0-98.0) % FiO2 % Sodium (132-148) mmol/L Potassium (3.6-5.0) mmol/L Chloride (98-107) mmol/L Carbon Dioxide (21-33) mmol/L Anion Gap (10-20) BUN (7-21) mg/dL Creatinine (0.7-1.2) mg/dl Est GFR ( Amer) Est GFR (Non-Af Amer) POC Glucose (mg/dL) 196 H 169 H (65-110) mg/dL Random Glucose (70-110) mg/dL Calcium (8.4-10.5) mg/dL Total Bilirubin (0.2-1.3) mg/dL Direct Bilirubin (0.0-0.4) mg/dL AST (14-36) U/L ALT (7-56) U/L Alkaline Phosphatase (38-126) U/L Ammonia (9-33) umol/L Total Protein (5.8-8.3) g/dL Albumin (3.0-4.8) g/dL Globulin gm/dL Albumin/Globulin Ratio (1.1-1.8) Procalcitonin (0.19-0.49) NG/ML 01/04/18 01/04/18 01/04/18 Range/Units 18:52 18:52 17:20 WBC 9.3 (4.5-11.0) 10^3/ul RBC 2.63 L (3.5-6.1) 10^6/uL Hgb 8.5 L (12.0-16.0) g/dL Hct 28.1 L (36.0-48.0) % MCV 106.8 H (80.0-105.0) fl MCH 32.3 (25.0-35.0) pg MCHC 30.2 L (31.0-37.0) g/dl RDW 22.3 H (11.5-14.5) % Plt Count 140 (120.0-450.0) 10^3/uL MPV 9.4 (7.0-11.0) fl Gran % (50.0-68.0) % Lymph % (Auto) (22.0-35.0) % Newton % (Auto) (1.0-6.0) % Eos % (Auto) (1.5-5.0) % Baso % (Auto) (0.0-3.0) % Gran # (1.4-6.5) Lymph # (Auto) (1.2-3.4) Newton # (Auto) (0.1-0.6) Eos # (Auto) (0.0-0.7) Baso # (Auto) (0.0-2.0) K/mm3 pCO2 38 (35-45) mm/Hg pO2 70.0 L (80-100) mm/Hg HCO3 29.6 H (21-28) mmol/L ABG pH 7.50 H (7.35-7.45) ABG Total CO2 30.8 H (22-28) mmol.L ABG O2 Saturation 95.5 (95-98) % ABG O2 Content 11.6 L (15-23) ML/dl ABG Base Excess 6.0 H (-2.0-3.0) mmol/L ABG Hemoglobin 8.8 L (11.7-17.4) g/dL ABG Carboxyhemoglobin 1.6 H (0.5-1.5) % POC ABG HHb (Measured) 4.4 (0-5) % ABG Methemoglobin 1.1 (0.0-3.0) % ABG O2 Capacity 12.1 L (16-24) mL/dl Hgb O2 Saturation 92.9 L (95.0-98.0) % FiO2 28.0 % Sodium (132-148) mmol/L Potassium (3.6-5.0) mmol/L Chloride (98-107) mmol/L Carbon Dioxide (21-33) mmol/L Anion Gap (10-20) BUN (7-21) mg/dL Creatinine (0.7-1.2) mg/dl Est GFR ( Amer) Est GFR (Non-Af Amer) POC Glucose (mg/dL) (65-110) mg/dL Random Glucose (70-110) mg/dL Calcium (8.4-10.5) mg/dL Total Bilirubin (0.2-1.3) mg/dL Direct Bilirubin (0.0-0.4) mg/dL AST (14-36) U/L ALT (7-56) U/L Alkaline Phosphatase (38-126) U/L Ammonia 45 H (9-33) umol/L Total Protein (5.8-8.3) g/dL Albumin (3.0-4.8) g/dL Globulin gm/dL Albumin/Globulin Ratio (1.1-1.8) Procalcitonin (0.19-0.49) NG/ML 01/04/18 01/04/18 Range/Units 11:30 06:30 WBC (4.5-11.0) 10^3/ul RBC (3.5-6.1) 10^6/uL Hgb (12.0-16.0) g/dL Hct (36.0-48.0) % MCV (80.0-105.0) fl MCH (25.0-35.0) pg MCHC (31.0-37.0) g/dl RDW (11.5-14.5) % Plt Count (120.0-450.0) 10^3/uL MPV (7.0-11.0) fl Gran % (50.0-68.0) % Lymph % (Auto) (22.0-35.0) % Newton % (Auto) (1.0-6.0) % Eos % (Auto) (1.5-5.0) % Baso % (Auto) (0.0-3.0) % Gran # (1.4-6.5) Lymph # (Auto) (1.2-3.4) Newton # (Auto) (0.1-0.6) Eos # (Auto) (0.0-0.7) Baso # (Auto) (0.0-2.0) K/mm3 pCO2 (35-45) mm/Hg pO2 (80-100) mm/Hg HCO3 (21-28) mmol/L ABG pH (7.35-7.45) ABG Total CO2 (22-28) mmol.L ABG O2 Saturation (95-98) % ABG O2 Content (15-23) ML/dl ABG Base Excess (-2.0-3.0) mmol/L ABG Hemoglobin (11.7-17.4) g/dL ABG Carboxyhemoglobin (0.5-1.5) % POC ABG HHb (Measured) (0-5) % ABG Methemoglobin (0.0-3.0) % ABG O2 Capacity (16-24) mL/dl Hgb O2 Saturation (95.0-98.0) % FiO2 % Sodium (132-148) mmol/L Potassium (3.6-5.0) mmol/L Chloride (98-107) mmol/L Carbon Dioxide (21-33) mmol/L Anion Gap (10-20) BUN (7-21) mg/dL Creatinine (0.7-1.2) mg/dl Est GFR ( Amer) Est GFR (Non-Af Amer) POC Glucose (mg/dL) 228 H (65-110) mg/dL Random Glucose (70-110) mg/dL Calcium (8.4-10.5) mg/dL Total Bilirubin (0.2-1.3) mg/dL Direct Bilirubin (0.0-0.4) mg/dL AST (14-36) U/L ALT (7-56) U/L Alkaline Phosphatase (38-126) U/L Ammonia (9-33) umol/L Total Protein (5.8-8.3) g/dL Albumin (3.0-4.8) g/dL Globulin gm/dL Albumin/Globulin Ratio (1.1-1.8) Procalcitonin 3.94 H (0.19-0.49) NG/ML Laboratory Results - last 24 hr 01/04/18 01/04/18 01/04/18 06:30 11:30 17:20 WBC RBC Hgb Hct MCV MCH MCHC RDW Plt Count MPV Gran % Lymph % (Auto) Newton % (Auto) Eos % (Auto) Baso % (Auto) Gran # Lymph # (Auto) Newton # (Auto) Eos # (Auto) Baso # (Auto) pCO2 38 pO2 70.0 L HCO3 29.6 H ABG pH 7.50 H ABG Total CO2 30.8 H ABG O2 Saturation 95.5 ABG O2 Content 11.6 L ABG Base Excess 6.0 H ABG Hemoglobin 8.8 L ABG Carboxyhemoglobin 1.6 H POC ABG HHb (Measured) 4.4 ABG Methemoglobin 1.1 ABG O2 Capacity 12.1 L Hgb O2 Saturation 92.9 L FiO2 28.0 Sodium Potassium Chloride Carbon Dioxide Anion Gap BUN Creatinine Est GFR ( Amer) Est GFR (Non-Af Amer) POC Glucose (mg/dL) 228 H Random Glucose Calcium Total Bilirubin Direct Bilirubin AST ALT Alkaline Phosphatase Ammonia Total Protein Albumin Globulin Albumin/Globulin Ratio Procalcitonin 3.94 H 01/04/18 01/04/18 01/04/18 18:52 18:52 19:11 WBC 9.3 RBC 2.63 L Hgb 8.5 L Hct 28.1 L MCV 106.8 H MCH 32.3 MCHC 30.2 L RDW 22.3 H Plt Count 140 MPV 9.4 Gran % Lymph % (Auto) Newton % (Auto) Eos % (Auto) Baso % (Auto) Gran # Lymph # (Auto) Newton # (Auto) Eos # (Auto) Baso # (Auto) pCO2 pO2 HCO3 ABG pH ABG Total CO2 ABG O2 Saturation ABG O2 Content ABG Base Excess ABG Hemoglobin ABG Carboxyhemoglobin POC ABG HHb (Measured) ABG Methemoglobin ABG O2 Capacity Hgb O2 Saturation FiO2 Sodium Potassium Chloride Carbon Dioxide Anion Gap BUN Creatinine Est GFR ( Amer) Est GFR (Non-Af Amer) POC Glucose (mg/dL) 169 H Random Glucose Calcium Total Bilirubin Direct Bilirubin AST ALT Alkaline Phosphatase Ammonia 45 H Total Protein Albumin Globulin Albumin/Globulin Ratio Procalcitonin 01/04/18 01/05/18 01/05/18 21:51 06:00 06:00 WBC 8.5 RBC 2.84 L Hgb 9.2 L Hct 30.4 L MCV 107.0 H MCH 32.4 MCHC 30.3 L RDW 22.5 H Plt Count 124 MPV 9.5 Gran % 90.2 H Lymph % (Auto) 5.1 L Newton % (Auto) 4.5 Eos % (Auto) 0.1 L Baso % (Auto) 0.1 Gran # 7.63 H Lymph # (Auto) 0.4 L Newton # (Auto) 0.4 Eos # (Auto) 0.0 Baso # (Auto) 0.01 pCO2 pO2 HCO3 ABG pH ABG Total CO2 ABG O2 Saturation ABG O2 Content ABG Base Excess ABG Hemoglobin ABG Carboxyhemoglobin POC ABG HHb (Measured) ABG Methemoglobin ABG O2 Capacity Hgb O2 Saturation FiO2 Sodium 141 Potassium 3.6 Chloride 101 Carbon Dioxide 32 Anion Gap 11 BUN 9 Creatinine 0.4 L Est GFR ( Amer) > 60 Est GFR (Non-Af Amer) > 60 POC Glucose (mg/dL) 196 H Random Glucose 184 H Calcium 8.1 L Total Bilirubin 1.8 H Direct Bilirubin 1.6 H AST 140 H ALT 60 H Alkaline Phosphatase 825 H Ammonia Total Protein 6.5 Albumin 3.2 Globulin 3.3 Albumin/Globulin Ratio 1.0 L Procalcitonin 01/05/18 01/05/18 06:00 07:21 WBC RBC Hgb Hct MCV MCH MCHC RDW Plt Count MPV Gran % Lymph % (Auto) Newton % (Auto) Eos % (Auto) Baso % (Auto) Gran # Lymph # (Auto) Newton # (Auto) Eos # (Auto) Baso # (Auto) pCO2 32 L pO2 59.0 L HCO3 28.7 H ABG pH 7.56 H ABG Total CO2 29.7 H ABG O2 Saturation 93.9 L ABG O2 Content 10.9 L ABG Base Excess 6.2 H ABG Hemoglobin 8.4 L ABG Carboxyhemoglobin 1.7 H POC ABG HHb (Measured) 5.9 H ABG Methemoglobin 0.8 ABG O2 Capacity 11.6 L Hgb O2 Saturation 91.6 L FiO2 28.0 Sodium Potassium Chloride Carbon Dioxide Anion Gap BUN Creatinine Est GFR ( Amer) Est GFR (Non-Af Amer) POC Glucose (mg/dL) 173 H Random Glucose Calcium Total Bilirubin Direct Bilirubin AST ALT Alkaline Phosphatase Ammonia Total Protein Albumin Globulin Albumin/Globulin Ratio Procalcitonin Fingerstick Blood Sugar Results: 173 Review of Systems - Review of Systems All systems: reviewed and no additional remarkable complaints except Review of Systems: as per HPI Critical Care Progress Note - Nutrition Nutrition: Nutrition Category Date Time Status Consistent Carbohydrate [DIET] Diets 01/04/18 Breakfast Ordered Assessment/Plan - Assessment and Plan (Free Text) Assessment: This is a 72 year old female with PMH of 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 Patient's repeat Head CT revealed subdural hematoma that is increased in size to 5mm from previous 4mm on 12/20/17. Patient admitted to ICU for close monitoring. Neuro status stable overnight; patient alert and oriented. Patient is clear for transfer from the ICU today. Plan: Neuro: - Ammonia level normal -maintain normothermia -AAO x3, moving extremities spontaneously past midline -xanax 0.25mg BID -CT head showed subdural hematoma in the right frontotemporal region, measuring up to 5 mm, previously measured 4 mm. Left temporal subdural hematoma measures up to 3mm, similar to the prior. Underlying metastatic lesions not excluded. -per neurosurg, no intervention at this time Cardio: -maintain MAP>65 -will monitor vitals including HR and BP closely -In ED, trop was 0.02 and EKG showed normal sinus rhythm at 100 bpm with left axis deviation and no ST changes. -echo on 06/12 showed LVEF of 60%, RVSP of 43 and moderate MR, mild TR Lungs: - Will hace RLL pleural effusion drained today by Dr. Lars Alvarado - ABG 7.56/ CO2 32/O2 59/HCO3 28.7 -SaO2 >90% -supplementary O2 PRN -duonebs PRN -CXR revealed RLL infiltrate/pleural effusions similar to prior studied -CT chest showed large right pleural effusion with adjacent compressive atelectasis and/or infiltrates. Near complete atelectasis of the right lower lobe. Scattered areas of patchy sclerosis in the visualized skeleton, concerning for metastatic disease. Findings suspicious for metastatic lymphadenopathy in the chest. -Dilaudid 0.5 mg Q3 PRN -PET/CT scan in 09/2017 showed diffuse hepatic metastasis, neoplastic lesion in the right lung apex, significant FDG avid mediastinal adenopathy with extension into the right hilum and right esophageal recess. Diffuse bone metastasis within the axial skeleton. Metastatic lesions within the pelvis, sacrum, right humeral head and left greater trochanter. -Pulm on consult, Dr. Eastman -Oncology on consult, Dr. Puente. History of small lung carcinoma with mets to liver and bone GI: - Abdomen US today, will follow results -Heart healthy diet -GI prophylaxis with protonix -CT abd/pelvis showed multiple hypodense lesions in the liver, concerning for malignancy/metastatic disease. Extensive upper abdominal lymphadenopathy. Apparent thickening of the transverse and descending colon, suspicious for infectious/inflammatory colitis versus ischemic colitis. -elevated LFT, alk phos, T bili and LDH likely 2/2 metastatic liver disease -GI on consult, Dr. Carlos Renal: -maintain euvolemia -avoid nephrotoxic agents, hypochloremia -replace electrolytes as needed -BUN/Cr 9/0.4 WNL -U/A positive for large leukocyte esterase. Patient has no urinary complaints at this time Heme: -Hg is 9.2, will monitor -platelets 79 on admission, one unit platelet transfusion given - PLT 124 this am -platelets previously 117 on 12/23 after discharge -received platelets on 11/23, 11/26, 11/29 and 12/01 with platelets ranging in the 10- 20s. Endo: -maintain euglycemia ID: -WBC is 8.5 today, afebrile -blood culture, urine culture pending -currently on cefepime, doxycycline -ID on consult, Dr. Hernandez for possible pneumonia Patient seen and case discussed with attending, Dr. Pablo Moreno, PGY 1 - Date & Time Date: 01/05/18 Time: 07:45 <Melvin Shah - Last Filed: 01/05/18 12:03> CCU Objective - Vital Signs / Intake & Output Intake and Output (Last 8hrs): Intake & Output 01/04/18 01/05/18 01/05/18 22:59 06:59 14:59 Intake Total 1106 600 Output Total 250 170 Balance 856 430 Intake: IV 420 600 Left Forearm 420 Right Subclavian 600 Oral 395 Blood Product 291 Apheresis Plts Acda Lr 291 Irr Unit [id number] Output: Urine 250 170 Urine, Voided 250 170 Other: # Bowel Movements 1 - Medications Active Medications: Active Medications Generic Name Dose Route Start Last Admin Trade Name Freq PRN Reason Stop Dose Admin Acetaminophen 650 mg 01/03/18 19:18 Tylenol 325mg Tab PO Q6H PRN Fever >100.4 F Albuterol/Ipratropium 3 ml 01/03/18 20:00 01/05/18 07:39 Duoneb 3 Mg/0.5 Mg (3 Ml) Ud IH Not Given [id number] KIMMY Albuterol/Ipratropium 3 ml 01/03/18 19:18 Duoneb 3 Mg/0.5 Mg (3 Ml) Ud IH Q2H PRN Shortness of Breath Alprazolam 0.25 mg 01/03/18 19:14 Xanax PO 01/10/18 19:15 TID PRN Anxiety Protocol Alprazolam 0.25 mg 01/04/18 10:00 01/05/18 10:21 Xanax PO 01/11/18 10:01 0.25 mg BID KIMMY Administration Protocol Famotidine 40 mg 01/05/18 22:00 Pepcid PO HS KIMMY Fentanyl 1 patch 01/06/18 10:00 Duragesic TD Q72 KIMMY Doxycycline Hyclate 100 mg/ 100 mls @ 100 mls/hr 01/03/18 22:00 01/05/18 10: 22 Sodium Chloride IVPB 100 mls/hr Q12 KIMMY Administration Protocol Vancomycin HCl 1 gm in 250 mls @ 167 mls/hr 01/04/18 07:00 01/05/18 08:22 Vancomycin 1gm IVPB 167 mls/hr Q12H KIMMY Administration Protocol Meropenem 50 mls @ 100 mls/hr 01/04/18 07:00 01/05/18 06:28 Merrem Iv 1 Gm Premix IVPB 100 mls/hr Q8 KIMMY Administration Protocol Insulin Human Regular 0 units 01/04/18 22:00 01/05/18 08:00 Humulin R Low SC 1 unit ACHS KIMMY Administration Protocol Lactulose 20 gm 01/05/18 22:00 Enulose PO HS KIMMY Morphine Sulfate 15 mg 01/03/18 19:14 01/04/18 12:12 Morphine Immediate Release Tab PO 15 mg Q6 PRN Administration Pain, moderate (4-7) Morphine Sulfate 2 mg 01/05/18 08:38 01/05/18 11:39 Morphine IVP 2 mg Q3 PRN Administration Pain, moderate (4-7) Nystatin 5 ml 01/04/18 18:00 01/05/18 10:22 Nystatin Oral Susp PO 5 ml QID KIMMY Administration Ondansetron HCl 4 mg 01/03/18 19:18 Zofran Inj IVP Q6H PRN Nausea/Vomiting - Patient Studies Lab Studies: Lab Studies 01/05/18 01/05/18 01/05/18 Range/Units 11:20 08:45 07:21 WBC 8.7 (4.5-11.0) 10^3/ul RBC 2.64 L (3.5-6.1) 10^6/uL Hgb 8.6 L (12.0-16.0) g/dL Hct 27.8 L (36.0-48.0) % MCV 105.3 H (80.0-105.0) fl MCH 32.6 (25.0-35.0) pg MCHC 30.9 L (31.0-37.0) g/dl RDW 22.4 H (11.5-14.5) % Plt Count 113 L (120.0-450.0) 10^3/uL MPV 8.9 (7.0-11.0) fl Gran % 89.6 H (50.0-68.0) % Lymph % (Auto) 5.0 L (22.0-35.0) % Newton % (Auto) 5.2 (1.0-6.0) % Eos % (Auto) 0.1 L (1.5-5.0) % Baso % (Auto) 0.1 (0.0-3.0) % Gran # 7.76 H (1.4-6.5) Lymph # (Auto) 0.4 L (1.2-3.4) Newton # (Auto) 0.5 (0.1-0.6) Eos # (Auto) 0.0 (0.0-0.7) Baso # (Auto) 0.01 (0.0-2.0) K/mm3 pCO2 (35-45) mm/Hg pO2 (80-100) mm/Hg HCO3 (21-28) mmol/L ABG pH (7.35-7.45) ABG Total CO2 (22-28) mmol.L ABG O2 Saturation (95-98) % ABG O2 Content (15-23) ML/dl ABG Base Excess (-2.0-3.0) mmol/L ABG Hemoglobin (11.7-17.4) g/dL ABG Carboxyhemoglobin (0.5-1.5) % POC ABG HHb (Measured) (0-5) % ABG Methemoglobin (0.0-3.0) % ABG O2 Capacity (16-24) mL/dl Hgb O2 Saturation (95.0-98.0) % FiO2 % Sodium (132-148) mmol/L Potassium (3.6-5.0) mmol/L Chloride (98-107) mmol/L Carbon Dioxide (21-33) mmol/L Anion Gap (10-20) BUN (7-21) mg/dL Creatinine (0.7-1.2) mg/dl Est GFR ( Amer) Est GFR (Non-Af Amer) POC Glucose (mg/dL) 173 H (65-110) mg/dL Random Glucose (70-110) mg/dL Calcium (8.4-10.5) mg/dL Total Bilirubin (0.2-1.3) mg/dL Direct Bilirubin (0.0-0.4) mg/dL AST (14-36) U/L ALT (7-56) U/L Alkaline Phosphatase (38-126) U/L Ammonia (9-33) umol/L Total Protein (5.8-8.3) g/dL Albumin (3.0-4.8) g/dL Globulin gm/dL Albumin/Globulin Ratio (1.1-1.8) Procalcitonin (0.19-0.49) NG/ML Ur L.pneumophila Ag Negative (NEGATIVE) 01/05/18 01/05/18 01/05/18 Range/Units 06:00 06:00 06:00 WBC 8.5 (4.5-11.0) 10^3/ul RBC 2.84 L (3.5-6.1) 10^6/uL Hgb 9.2 L (12.0-16.0) g/dL Hct 30.4 L (36.0-48.0) % MCV 107.0 H (80.0-105.0) fl MCH 32.4 (25.0-35.0) pg MCHC 30.3 L (31.0-37.0) g/dl RDW 22.5 H (11.5-14.5) % Plt Count 124 (120.0-450.0) 10^3/uL MPV 9.5 (7.0-11.0) fl Gran % 90.2 H (50.0-68.0) % Lymph % (Auto) 5.1 L (22.0-35.0) % Newton % (Auto) 4.5 (1.0-6.0) % Eos % (Auto) 0.1 L (1.5-5.0) % Baso % (Auto) 0.1 (0.0-3.0) % Gran # 7.63 H (1.4-6.5) Lymph # (Auto) 0.4 L (1.2-3.4) Newton # (Auto) 0.4 (0.1-0.6) Eos # (Auto) 0.0 (0.0-0.7) Baso # (Auto) 0.01 (0.0-2.0) K/mm3 pCO2 32 L (35-45) mm/Hg pO2 59.0 L (80-100) mm/Hg HCO3 28.7 H (21-28) mmol/L ABG pH 7.56 H (7.35-7.45) ABG Total CO2 29.7 H (22-28) mmol.L ABG O2 Saturation 93.9 L (95-98) % ABG O2 Content 10.9 L (15-23) ML/dl ABG Base Excess 6.2 H (-2.0-3.0) mmol/L ABG Hemoglobin 8.4 L (11.7-17.4) g/dL ABG Carboxyhemoglobin 1.7 H (0.5-1.5) % POC ABG HHb (Measured) 5.9 H (0-5) % ABG Methemoglobin 0.8 (0.0-3.0) % ABG O2 Capacity 11.6 L (16-24) mL/dl Hgb O2 Saturation 91.6 L (95.0-98.0) % FiO2 28.0 % Sodium 141 (132-148) mmol/L Potassium 3.6 (3.6-5.0) mmol/L Chloride 101 (98-107) mmol/L Carbon Dioxide 32 (21-33) mmol/L Anion Gap 11 (10-20) BUN 9 (7-21) mg/dL Creatinine 0.4 L (0.7-1.2) mg/dl Est GFR ( Amer) > 60 Est GFR (Non-Af Amer) > 60 POC Glucose (mg/dL) (65-110) mg/dL Random Glucose 184 H (70-110) mg/dL Calcium 8.1 L (8.4-10.5) mg/dL Total Bilirubin 1.8 H (0.2-1.3) mg/dL Direct Bilirubin 1.6 H (0.0-0.4) mg/dL AST 140 H (14-36) U/L ALT 60 H (7-56) U/L Alkaline Phosphatase 825 H (38-126) U/L Ammonia (9-33) umol/L Total Protein 6.5 (5.8-8.3) g/dL Albumin 3.2 (3.0-4.8) g/dL Globulin 3.3 gm/dL Albumin/Globulin Ratio 1.0 L (1.1-1.8) Procalcitonin (0.19-0.49) NG/ML Ur L.pneumophila Ag (NEGATIVE) 01/04/18 01/04/18 01/04/18 Range/Units 21:51 19:11 18:52 WBC 9.3 (4.5-11.0) 10^3/ul RBC 2.63 L (3.5-6.1) 10^6/uL Hgb 8.5 L (12.0-16.0) g/dL Hct 28.1 L (36.0-48.0) % MCV 106.8 H (80.0-105.0) fl MCH 32.3 (25.0-35.0) pg MCHC 30.2 L (31.0-37.0) g/dl RDW 22.3 H (11.5-14.5) % Plt Count 140 (120.0-450.0) 10^3/uL MPV 9.4 (7.0-11.0) fl Gran % (50.0-68.0) % Lymph % (Auto) (22.0-35.0) % Newton % (Auto) (1.0-6.0) % Eos % (Auto) (1.5-5.0) % Baso % (Auto) (0.0-3.0) % Gran # (1.4-6.5) Lymph # (Auto) (1.2-3.4) Newton # (Auto) (0.1-0.6) Eos # (Auto) (0.0-0.7) Baso # (Auto) (0.0-2.0) K/mm3 pCO2 (35-45) mm/Hg pO2 (80-100) mm/Hg HCO3 (21-28) mmol/L ABG pH (7.35-7.45) ABG Total CO2 (22-28) mmol.L ABG O2 Saturation (95-98) % ABG O2 Content (15-23) ML/dl ABG Base Excess (-2.0-3.0) mmol/L ABG Hemoglobin (11.7-17.4) g/dL ABG Carboxyhemoglobin (0.5-1.5) % POC ABG HHb (Measured) (0-5) % ABG Methemoglobin (0.0-3.0) % ABG O2 Capacity (16-24) mL/dl Hgb O2 Saturation (95.0-98.0) % FiO2 % Sodium (132-148) mmol/L Potassium (3.6-5.0) mmol/L Chloride (98-107) mmol/L Carbon Dioxide (21-33) mmol/L Anion Gap (10-20) BUN (7-21) mg/dL Creatinine (0.7-1.2) mg/dl Est GFR ( Amer) Est GFR (Non-Af Amer) POC Glucose (mg/dL) 196 H 169 H (65-110) mg/dL Random Glucose (70-110) mg/dL Calcium (8.4-10.5) mg/dL Total Bilirubin (0.2-1.3) mg/dL Direct Bilirubin (0.0-0.4) mg/dL AST (14-36) U/L ALT (7-56) U/L Alkaline Phosphatase (38-126) U/L Ammonia (9-33) umol/L Total Protein (5.8-8.3) g/dL Albumin (3.0-4.8) g/dL Globulin gm/dL Albumin/Globulin Ratio (1.1-1.8) Procalcitonin (0.19-0.49) NG/ML Ur L.pneumophila Ag (NEGATIVE) 01/04/18 01/04/18 01/04/18 Range/Units 18:52 17:20 11:30 WBC (4.5-11.0) 10^3/ul RBC (3.5-6.1) 10^6/uL Hgb (12.0-16.0) g/dL Hct (36.0-48.0) % MCV (80.0-105.0) fl MCH (25.0-35.0) pg MCHC (31.0-37.0) g/dl RDW (11.5-14.5) % Plt Count (120.0-450.0) 10^3/uL MPV (7.0-11.0) fl Gran % (50.0-68.0) % Lymph % (Auto) (22.0-35.0) % Newton % (Auto) (1.0-6.0) % Eos % (Auto) (1.5-5.0) % Baso % (Auto) (0.0-3.0) % Gran # (1.4-6.5) Lymph # (Auto) (1.2-3.4) Newton # (Auto) (0.1-0.6) Eos # (Auto) (0.0-0.7) Baso # (Auto) (0.0-2.0) K/mm3 pCO2 38 (35-45) mm/Hg pO2 70.0 L (80-100) mm/Hg HCO3 29.6 H (21-28) mmol/L ABG pH 7.50 H (7.35-7.45) ABG Total CO2 30.8 H (22-28) mmol.L ABG O2 Saturation 95.5 (95-98) % ABG O2 Content 11.6 L (15-23) ML/dl ABG Base Excess 6.0 H (-2.0-3.0) mmol/L ABG Hemoglobin 8.8 L (11.7-17.4) g/dL ABG Carboxyhemoglobin 1.6 H (0.5-1.5) % POC ABG HHb (Measured) 4.4 (0-5) % ABG Methemoglobin 1.1 (0.0-3.0) % ABG O2 Capacity 12.1 L (16-24) mL/dl Hgb O2 Saturation 92.9 L (95.0-98.0) % FiO2 28.0 % Sodium (132-148) mmol/L Potassium (3.6-5.0) mmol/L Chloride (98-107) mmol/L Carbon Dioxide (21-33) mmol/L Anion Gap (10-20) BUN (7-21) mg/dL Creatinine (0.7-1.2) mg/dl Est GFR ( Amer) Est GFR (Non-Af Amer) POC Glucose (mg/dL) 228 H (65-110) mg/dL Random Glucose (70-110) mg/dL Calcium (8.4-10.5) mg/dL Total Bilirubin (0.2-1.3) mg/dL Direct Bilirubin (0.0-0.4) mg/dL AST (14-36) U/L ALT (7-56) U/L Alkaline Phosphatase (38-126) U/L Ammonia 45 H (9-33) umol/L Total Protein (5.8-8.3) g/dL Albumin (3.0-4.8) g/dL Globulin gm/dL Albumin/Globulin Ratio (1.1-1.8) Procalcitonin (0.19-0.49) NG/ML Ur L.pneumophila Ag (NEGATIVE) 01/04/18 Range/Units 06:30 WBC (4.5-11.0) 10^3/ul RBC (3.5-6.1) 10^6/uL Hgb (12.0-16.0) g/dL Hct (36.0-48.0) % MCV (80.0-105.0) fl MCH (25.0-35.0) pg MCHC (31.0-37.0) g/dl RDW (11.5-14.5) % Plt Count (120.0-450.0) 10^3/uL MPV (7.0-11.0) fl Gran % (50.0-68.0) % Lymph % (Auto) (22.0-35.0) % Newton % (Auto) (1.0-6.0) % Eos % (Auto) (1.5-5.0) % Baso % (Auto) (0.0-3.0) % Gran # (1.4-6.5) Lymph # (Auto) (1.2-3.4) Newton # (Auto) (0.1-0.6) Eos # (Auto) (0.0-0.7) Baso # (Auto) (0.0-2.0) K/mm3 pCO2 (35-45) mm/Hg pO2 (80-100) mm/Hg HCO3 (21-28) mmol/L ABG pH (7.35-7.45) ABG Total CO2 (22-28) mmol.L ABG O2 Saturation (95-98) % ABG O2 Content (15-23) ML/dl ABG Base Excess (-2.0-3.0) mmol/L ABG Hemoglobin (11.7-17.4) g/dL ABG Carboxyhemoglobin (0.5-1.5) % POC ABG HHb (Measured) (0-5) % ABG Methemoglobin (0.0-3.0) % ABG O2 Capacity (16-24) mL/dl Hgb O2 Saturation (95.0-98.0) % FiO2 % Sodium (132-148) mmol/L Potassium (3.6-5.0) mmol/L Chloride (98-107) mmol/L Carbon Dioxide (21-33) mmol/L Anion Gap (10-20) BUN (7-21) mg/dL Creatinine (0.7-1.2) mg/dl Est GFR ( Amer) Est GFR (Non-Af Amer) POC Glucose (mg/dL) (65-110) mg/dL Random Glucose (70-110) mg/dL Calcium (8.4-10.5) mg/dL Total Bilirubin (0.2-1.3) mg/dL Direct Bilirubin (0.0-0.4) mg/dL AST (14-36) U/L ALT (7-56) U/L Alkaline Phosphatase (38-126) U/L Ammonia (9-33) umol/L Total Protein (5.8-8.3) g/dL Albumin (3.0-4.8) g/dL Globulin gm/dL Albumin/Globulin Ratio (1.1-1.8) Procalcitonin 3.94 H (0.19-0.49) NG/ML Ur L.pneumophila Ag (NEGATIVE) Laboratory Results - last 24 hr 01/04/18 01/04/18 01/04/18 06:30 11:30 17:20 WBC RBC Hgb Hct MCV MCH MCHC RDW Plt Count MPV Gran % Lymph % (Auto) Newton % (Auto) Eos % (Auto) Baso % (Auto) Gran # Lymph # (Auto) Newton # (Auto) Eos # (Auto) Baso # (Auto) pCO2 38 pO2 70.0 L HCO3 29.6 H ABG pH 7.50 H ABG Total CO2 30.8 H ABG O2 Saturation 95.5 ABG O2 Content 11.6 L ABG Base Excess 6.0 H ABG Hemoglobin 8.8 L ABG Carboxyhemoglobin 1.6 H POC ABG HHb (Measured) 4.4 ABG Methemoglobin 1.1 ABG O2 Capacity 12.1 L Hgb O2 Saturation 92.9 L FiO2 28.0 Sodium Potassium Chloride Carbon Dioxide Anion Gap BUN Creatinine Est GFR ( Amer) Est GFR (Non-Af Amer) POC Glucose (mg/dL) 228 H Random Glucose Calcium Total Bilirubin Direct Bilirubin AST ALT Alkaline Phosphatase Ammonia Total Protein Albumin Globulin Albumin/Globulin Ratio Procalcitonin 3.94 H Ur L.pneumophila Ag 01/04/18 01/04/18 01/04/18 18:52 18:52 19:11 WBC 9.3 RBC 2.63 L Hgb 8.5 L Hct 28.1 L MCV 106.8 H MCH 32.3 MCHC 30.2 L RDW 22.3 H Plt Count 140 MPV 9.4 Gran % Lymph % (Auto) Newton % (Auto) Eos % (Auto) Baso % (Auto) Gran # Lymph # (Auto) Newton # (Auto) Eos # (Auto) Baso # (Auto) pCO2 pO2 HCO3 ABG pH ABG Total CO2 ABG O2 Saturation ABG O2 Content ABG Base Excess ABG Hemoglobin ABG Carboxyhemoglobin POC ABG HHb (Measured) ABG Methemoglobin ABG O2 Capacity Hgb O2 Saturation FiO2 Sodium Potassium Chloride Carbon Dioxide Anion Gap BUN Creatinine Est GFR ( Amer) Est GFR (Non-Af Amer) POC Glucose (mg/dL) 169 H Random Glucose Calcium Total Bilirubin Direct Bilirubin AST ALT Alkaline Phosphatase Ammonia 45 H Total Protein Albumin Globulin Albumin/Globulin Ratio Procalcitonin Ur L.pneumophila Ag 01/04/18 01/05/18 01/05/18 21:51 06:00 06:00 WBC 8.5 RBC 2.84 L Hgb 9.2 L Hct 30.4 L MCV 107.0 H MCH 32.4 MCHC 30.3 L RDW 22.5 H Plt Count 124 MPV 9.5 Gran % 90.2 H Lymph % (Auto) 5.1 L Newton % (Auto) 4.5 Eos % (Auto) 0.1 L Baso % (Auto) 0.1 Gran # 7.63 H Lymph # (Auto) 0.4 L Newton # (Auto) 0.4 Eos # (Auto) 0.0 Baso # (Auto) 0.01 pCO2 pO2 HCO3 ABG pH ABG Total CO2 ABG O2 Saturation ABG O2 Content ABG Base Excess ABG Hemoglobin ABG Carboxyhemoglobin POC ABG HHb (Measured) ABG Methemoglobin ABG O2 Capacity Hgb O2 Saturation FiO2 Sodium 141 Potassium 3.6 Chloride 101 Carbon Dioxide 32 Anion Gap 11 BUN 9 Creatinine 0.4 L Est GFR ( Amer) > 60 Est GFR (Non-Af Amer) > 60 POC Glucose (mg/dL) 196 H Random Glucose 184 H Calcium 8.1 L Total Bilirubin 1.8 H Direct Bilirubin 1.6 H AST 140 H ALT 60 H Alkaline Phosphatase 825 H Ammonia Total Protein 6.5 Albumin 3.2 Globulin 3.3 Albumin/Globulin Ratio 1.0 L Procalcitonin Ur L.pneumophila Ag 01/05/18 01/05/18 01/05/18 06:00 07:21 08:45 WBC RBC Hgb Hct MCV MCH MCHC RDW Plt Count MPV Gran % Lymph % (Auto) Newton % (Auto) Eos % (Auto) Baso % (Auto) Gran # Lymph # (Auto) Newton # (Auto) Eos # (Auto) Baso # (Auto) pCO2 32 L pO2 59.0 L HCO3 28.7 H ABG pH 7.56 H ABG Total CO2 29.7 H ABG O2 Saturation 93.9 L ABG O2 Content 10.9 L ABG Base Excess 6.2 H ABG Hemoglobin 8.4 L ABG Carboxyhemoglobin 1.7 H POC ABG HHb (Measured) 5.9 H ABG Methemoglobin 0.8 ABG O2 Capacity 11.6 L Hgb O2 Saturation 91.6 L FiO2 28.0 Sodium Potassium Chloride Carbon Dioxide Anion Gap BUN Creatinine Est GFR ( Amer) Est GFR (Non-Af Amer) POC Glucose (mg/dL) 173 H Random Glucose Calcium Total Bilirubin Direct Bilirubin AST ALT Alkaline Phosphatase Ammonia Total Protein Albumin Globulin Albumin/Globulin Ratio Procalcitonin Ur L.pneumophila Ag Negative 01/05/18 11:20 WBC 8.7 RBC 2.64 L Hgb 8.6 L Hct 27.8 L MCV 105.3 H MCH 32.6 MCHC 30.9 L RDW 22.4 H Plt Count 113 L MPV 8.9 Gran % 89.6 H Lymph % (Auto) 5.0 L Newton % (Auto) 5.2 Eos % (Auto) 0.1 L Baso % (Auto) 0.1 Gran # 7.76 H Lymph # (Auto) 0.4 L Newton # (Auto) 0.5 Eos # (Auto) 0.0 Baso # (Auto) 0.01 pCO2 pO2 HCO3 ABG pH ABG Total CO2 ABG O2 Saturation ABG O2 Content ABG Base Excess ABG Hemoglobin ABG Carboxyhemoglobin POC ABG HHb (Measured) ABG Methemoglobin ABG O2 Capacity Hgb O2 Saturation FiO2 Sodium Potassium Chloride Carbon Dioxide Anion Gap BUN Creatinine Est GFR ( Amer) Est GFR (Non-Af Amer) POC Glucose (mg/dL) Random Glucose Calcium Total Bilirubin Direct Bilirubin AST ALT Alkaline Phosphatase Ammonia Total Protein Albumin Globulin Albumin/Globulin Ratio Procalcitonin Ur L.pneumophila Ag Critical Care Progress Note - Nutrition Nutrition: Nutrition Category Date Time Status Consistent Carbohydrate [DIET] Diets 01/04/18 Breakfast Ordered Assessment/Plan - Assessment and Plan (Free Text) Plan: Patient seen and examined on rounds with resident, agree with note with following additions/exceptions: Patient is 72yo female w/PMH of 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 No neurosurgical intervention at this time as per NSG. No new neurological findings. Labs, imaging chart, reviewed. Currently arebrile, BP stable, comfortable in NAD, awake, alert following commands. Monitored in the MICU for >24hr. Small Cell Lung Ca with mets Pleural effusion PNA SDH, stable HTN DM GERD COPD Recommend: - supp o2 as needed, duonebs PRN, IS - thoracentesis as per pulmonary - Abx as per ID, follow up cultures - BP control - FS control - Pain control - follow up heme onc - monitor HH, platelets 124 today - GI ppx - DVT ppx, SCDs - Transfer to telemetry
[2018-01-05] MEDS: Nystatin 100,000 Units/ml Oral Susp 5 ml UD PO SCH ×4 (10:22→21:08)
--- NOTE | 2018-01-05 11:14 | US ---
Date of service: 01/05/2018 HISTORY: DOPPLER OF PORTAL VEIN-HAS R ABD. PAIN COMPARISON: Abdomen pelvis CT examination 01/03/2018. TECHNIQUE: Sonographic evaluation of the abdomen. FINDINGS: LIVER: Heterogeneous echogenicity of the liver parenchyma related to the interval hepatic mass is identified in prior CT 01/03/2018. No prominent intrahepatic biliary dilatation appreciable. Bidirectional blood flow suggests at the portal vein with majority directed toward the liver. Borderline cavernous transformation pattern. Normal directional blood flows appreciated hepatic artery. Normal directional blood flow is appreciate the hepatic venous system diffusely. OTHER FINDINGS: None. IMPRESSION: Doppler interrogation of the liver demonstrates bidirectional blood flow at the portal venous system, though more hepatopetal than hepatofugal. Normal directional blood flow with hepatic artery and hepatic venous system. Widespread hepatic metastases suggested once again.
[2018-01-05 11:24] LABS: BASO # 0.01 K/mm3 (0.0-2.0); BASO % 0.1 % (0.0-3.0); EOS % 0.1 % (1.5-5.0); GRAN # 7.76 (1.4-6.5); GRAN % 89.6 % (50.0-68.0); HEMOGLOBIN 8.6 g/dL (12.0-16.0); LYMPH # 0.4 (1.2-3.4); MEAN CELL VOLUME 105.3 fl (80.0-105.0); MEAN CORPUSCULAR HEMOGLOBIN 32.6 pg (25.0-35.0); MEAN CORPUSCULAR HGB CONC 30.9 g/dl (31.0-37.0); MEAN PLATELET VOLUME 8.9 fl (7.0-11.0); MONO # 0.5 (0.1-0.6); MONO % 5.2 % (1.0-6.0); RBC 2.64 10^6/uL (3.5-6.1); RED CELL DISTRIBUTION WIDTH 22.4 % (11.5-14.5); WHITE BLOOD COUNT 8.7 10^3/ul (4.5-11.0)
--- NOTE | 2018-01-05 11:38 | CON ---
DATE: 01/04/2018 This is an Oncology consultation requested by Dr. Cain. The patient is currently in the intensive care unit, bed 6. REASON FOR CONSULT: The patient has extensive small cell lung carcinoma with documented mets involving the liver, spleen, lungs and bones, status post subdural hematoma after a fall at home sustained during her stay at home prior to her last admission. The patient is now currently admitted to the hospital after she was having progressive failure to thrive over the last few days along with increasing right upper quadrant pain and is not amenable to the current medication that she was in the group home facility. At that point in time, I had a call from the patient's son and I spoke to the attending physician who was taking care of her at that time, which is Dr. Cain and the concern that we have is the new onset of right upper quadrant pain. The patient needed to come back into the ER to be assessed to make sure there was no intraabdominal pathology as the course of the pain or referred pain coming from the lungs. HISTORY OF PRESENT ILLNESS: This is a 72-year-old female, well known to me with extensive small cell lung carcinoma as mentioned with documented mets to the spine, status post radiation for spinal cord compression, status post radiation to the right upper lobe lesion that is causing compression of the left axis of the right main stem, status post radiation to the right hip and LS spine for metastatic disease, status post 5 cycles of chemotherapy with carboplatin and etoposide and has gradual improvement in the hospital facility, went home and while at home fell, sustained subdural hematoma for which she was admitted to the hospital for observation, the patient improved. The patient also had prolonged episode of pancytopenia and thrombocytopenia, which combined chemoradiation. The patient is now currently admitted from the group home with failure to thrive and new onset of right upper quadrant pain. PAST MEDICAL HISTORY: Significant for the fact that the patient has a diagnoses of small cell lung carcinoma, status post 5 cycles of chemotherapy, carboplatin and etoposide, status post radiation to the right lung, right upper lobe and right main stem, status post radiation to the mid back for cord compression, status post radiation to the right hip and right sacral region for relief of the pain, which she completed about a month ago, history of cord compression for which she had radiation for the cord compression, responded very well to the treatment. ALLERGIES: THE PATIENT IS ALLERGIC TO SULFA. FAMILY HISTORY: No significant history of any cancer in the family. No history of any significant cardiac or pulmonary history in the family as well. SOCIAL HISTORY: The patient is a former smoker. Denies any alcohol use. Used to be heavy smoker, has more than 20 pack year history. MEDICATIONS: Patient medications were reviewed. She is on doxycycline 100 b.i.d., DuoNeb every 2 hours p.r.n., and every 6 hours [id number], fentanyl patch every 72 hours. The patient is on meropenem 1 g IV every 8 hours. She is on MiraLax 17 g daily. She is on morphine 2 mg IV every 4 hours p.r.n. She is also on morphine immediate release 15 mg every 6 hours p.r.n., Protonix 40 mg daily, Tylenol p.r.n., vancomycin 1 g IV every 12 hours, Xanax 0.25 mg p.o. three times a day p.r.n. and also she is on Xanax 0.25 mg twice a day. The patient is also on Zofran 4 mg every 6 hours as needed for nausea. REVIEW OF SYSTEMS: The patient has been complaining of increasing intermittent right upper quadrant pain associated with decrease in appetite. No fevers, no chills. No headaches. The patient does have cough and shortness of breath. No hemoptysis. No chest pain. Nausea is present. No vomiting per se. Appetite decreased. No history of dysuria, hematuria or any significant leg pain. PHYSICAL EXAMINATION: GENERAL: The patient is examined in the bed. VITAL SIGNS: Stable. T-max is 98.4, heart rate is 83, respirations 18, blood pressure is 128/73, pulse ox is 98% on nasal cannula. HEENT: Head is normocephalic and atraumatic. The patient has alopecia, post chemotherapy. HEART: Reveals PMI to be in the fifth intercostal space inside the midclavicular line. S1 and S2 are normal. No gallop or murmur is heard. ABDOMEN: Soft, nontender, nondistended. No rebound, rigidity or guarding is noted. EXTREMITIES: Reveal no cyanosis, clubbing or edema. The patient has some ecchymotic areas in the lower extremity. NEUROLOGIC: Reveals higher functions to be normal. The patient is awake, alert, oriented, responsive, but seems to be in pain. Pain score on a scale of 0 to 10 is at least 7 at this point in time. GENITOURINARY: Deferred. RECTAL: Deferred. LABORATORY DATA: Reveals hemoglobin 9.7, hematocrit 32.1, white count is 10.3 with the platelet count of 71,000. INR is 1.21, PTT is 21. VBG showed pH 7.4. CAT scan of the head was unremarkable with no new finding. The subdural hematoma is stable and very small. CAT scan of the chest shows right pleural effusion. There is almost small left pleural effusion with stable tumor disease both below and above the diaphragm. ASSESSMENT, NOTES AND PLAN: The patient has extensive small cell lung carcinoma, status post radiation for cord compression, status post radiation to the right hip and right iliac bone and also status post radiation to the mid back for cord compression, chronic obstructive pulmonary disease, was now admitted with progressive failure to thrive and in addition to that having right upper quadrant pain. The patient also has high procalcitonin suggestive of possible infection for which she is already on antibiotics. We will discuss with Dr. Eastman. The patient may benefit from a pleural fluid tap to ascertain what the nature of the fluid is and just to make sure that this is not related to underlying malignancy. The patient will continue with bronchodilators for now. Continue gastric prophylaxis. Hopefully, the patient continues to improve. We will talk about giving her a maintenance chemotherapy with the drugs such as Hycamtin that may be the patient to tolerate. My concern is the thrombocytopenia, which has improved in the past. There may be a sign of the infection per se, otherwise marrow involvement by tumor is another possibility. We may have to monitor the counts very closely over the next few days to see which direction her counts are moving. The patient has fall protection as patient precaution protection. She is already on gastric prophylaxis as well. We will follow the patient with you and make appropriate recommendations. Spoke to the son in great detail. Time spent with the patient is greater than 80 minutes, in which more than 50% of the time in [id number] encounter. We will follow the patient with you and make appropriate recommendations as necessary. Rudy Puente MD [facility] # [id number]
--- NOTE | 2018-01-05 13:25 | CP.PCM.PN ---
Subjective - Date & Time of Evaluation Date of Evaluation: 01/05/18 Time of Evaluation: 13:22 - Subjective Subjective: Heme/Onc Progress Note for Dr. Puente -- Terell Lam DO PGY2 Patient seen and examined at bedside. No acute overnight events. Patient is AOx3. Patient states that RUQ pain is still present, but currently controlled with medications. Patient denied CP, SOB, n/v/d, fever, chills, VASQUES, or dizziness. Objective - Vital Signs/Intake and Output Vital Signs (last 24 hours): Temp Pulse Resp BP Pulse Ox 98.1 F 74 14 137/53 L 99 01/05/18 07:27 01/05/18 07:50 01/05/18 07:50 01/05/18 07:00 01/05/18 07:50 Intake and Output: 01/05/18 01/05/18 06:59 18:59 Intake Total 600 Output Total 170 Balance 430 - Medications Medications: Current Medications Acetaminophen (Tylenol 325mg Tab) 650 mg PO Q6H PRN PRN Reason: Fever >100.4 F Albuterol/Ipratropium (Duoneb 3 Mg/0.5 Mg (3 Ml) Ud) 3 ml IH [id number] KIMMY Last Admin: 01/05/18 13:06 Dose: Not Given Albuterol/Ipratropium (Duoneb 3 Mg/0.5 Mg (3 Ml) Ud) 3 ml IH Q2H PRN PRN Reason: Shortness of Breath Alprazolam (Xanax) 0.25 mg PO TID PRN; Protocol PRN Reason: Anxiety Stop: 01/10/18 19:15 Alprazolam (Xanax) 0.25 mg PO BID KIMMY PRN Reason: Protocol Stop: 01/11/18 10:01 Last Admin: 01/05/18 10:21 Dose: 0.25 mg Famotidine (Pepcid) 40 mg PO HS KIMMY Fentanyl (Duragesic) 1 patch TD Q72 KIMMY Doxycycline Hyclate 100 mg/ (Sodium Chloride) 100 mls @ 100 mls/hr IVPB Q12 KIMMY PRN Reason: Protocol Last Admin: 01/05/18 10:22 Dose: 100 mls/hr Vancomycin HCl (Vancomycin 1gm) 1 gm in 250 mls @ 167 mls/hr IVPB Q12H KIMMY PRN Reason: Protocol Last Admin: 01/05/18 08:22 Dose: 167 mls/hr Meropenem (Merrem Iv 1 Gm Premix) 50 mls @ 100 mls/hr IVPB Q8 KIMMY PRN Reason: Protocol Last Admin: 01/05/18 06:28 Dose: 100 mls/hr Insulin Human Regular (Humulin R Low) 0 units SC ACHS KIMMY PRN Reason: Protocol Last Admin: 01/05/18 11:29 Dose: Not Given Lactulose (Enulose) 20 gm PO HS KIMMY Morphine Sulfate (Morphine Immediate Release Tab) 15 mg PO Q6 PRN PRN Reason: Pain, moderate (4-7) Last Admin: 01/04/18 12:12 Dose: 15 mg Morphine Sulfate (Morphine) 2 mg IVP Q3 PRN PRN Reason: Pain, moderate (4-7) Last Admin: 01/05/18 11:39 Dose: 2 mg Nystatin (Nystatin Oral Susp) 5 ml PO QID [facility] Last Admin: 01/05/18 10:22 Dose: 5 ml Ondansetron HCl (Zofran Inj) 4 mg IVP Q6H PRN PRN Reason: Nausea/Vomiting - Labs Labs: 01/05/18 11:20 01/05/18 06:00 PT 13.8 SECONDS (9.4-12.5) H 01/03/18 16:45 INR 1.21 01/03/18 16:45 APTT 21.2 Seconds (25.1-36.5) L 01/03/18 16:45 - Constitutional Appears: No Acute Distress - Head Exam Head Exam: NORMOCEPHALIC Additional comments: alopecia - Eye Exam Eye Exam: Normal appearance - ENT Exam ENT Exam: Mucous Membranes Moist - Neck Exam Neck Exam: Normal Inspection - Respiratory Exam Respiratory Exam: Clear to Ausculation Bilateral. absent: Rales, Rhonchi, Wheezes - Cardiovascular Exam Cardiovascular Exam: RRR, +S1, +S2. absent: Gallop, Rubs, Murmur - GI/Abdominal Exam GI & Abdominal Exam: Distended, Soft. absent: Rigid, Tenderness, Rebound - Neurological Exam Neurological Exam: Alert, Awake, CN II-XII Intact - Psychiatric Exam Psychiatric exam: Normal Mood - Skin Skin Exam: Dry, Intact Assessment and Plan - Assessment and Plan (Free Text) Assessment: 72 year old female with a past medical history significant for Stage IV metastatic small cell lung cancer with mets to the spine, liver, retroperitoneal nodes; COPD, HTN, DM, tobacco abuse, GERD, and insomnia who admitted recently for thin left temporal subdural hematoma. Patient was discharged [facility]. However, she was found to have AMS and was sent to [facility] ED. In the ED, CT scan showed slight 1 mm expansion of the previous SDH. Patient was admitted to ICU for monitoring. Right pleural effusion was found on imaging, ID is consulted and will r/o HCAP. Patient also noted to have thrombocytopenia and required 2 units of platelets. Plan: - H/H stable, will continue to monitor - Maintain platelets > 100 in setting of SDH - Recieved 2 units of platelets overall - Platelet 124 today, will continue to monitor - Will consider maintenance chemotherapy - IR consulted for thoracentesis for R pleural effusion - Abx per ID, will r/o HCAP with elevated Procal - Further recommendations per ID, IR, and primary Case reviewed and discussed with attending. Terell Lam, DO PGY2
--- NOTE | 2018-01-05 14:52 | PN ---
DATE: 01/05/2018 SUBJECTIVE: The patient is 72 years old, seen and examined. According to nurse, ate more than 50% of her breakfast. Still has a right lower chest pain. No acute distress. PHYSICAL EXAMINATION: VITAL SIGNS: She is afebrile, pulse 74, respirations 16, blood pressure 137/53. LUNGS: Decreased breath sound at bases. HEART: S1 and S2 audible. ABDOMEN: Soft. Right upper quadrant palpable discomfort in the lower ribcage area. EXTREMITIES: Bilateral leg, +2 edema. LABORATORY EXAM: WBC 8.7, hemoglobin 8.6, hematocrit 27.8, platelet of 113. Chemistry: Sodium 141, potassium 3.6, chloride 101, CO2 of 32, BUN 9, creatinine 0.4, blood sugar 173. Total albumin 1.8, direct is 1.6. AST 140, ALT 60 and alk phos is 825. Blood cultures are negative. ASSESSMENT: 1. Right pleural effusion. 2. Metastatic small cell carcinoma of the lung. 3. Degenerative disk disease. 4. Status post chemotherapy. 5. Status post radiation therapy to right hip and the right iliac bone. Status post palliative radiation to the back for cord compression. 6. Chronic obstructive pulmonary disease. PLAN: Currently, the patient is on nebulizer treatment. She is on doxycycline. She is on Duragesic patch, we will continue that. We will keep her meropenem. Analgesic as needed. She is on vancomycin, we will continue that. We will follow up electrolyte. Dr. Puente's input noted and appreciated. Plan for thoracentesis. Prognosis is overall poor. We will give her analgesic for better pain control. Fortino Cain MD
--- NOTE | 2018-01-05 15:08 | PN ---
DATE: 01/05/2018 SUBJECTIVE: Patient is in bed, in no acute distress. PHYSICAL EXAMINATION: VITAL SIGNS: Temperature of 98, blood pressure is 130/50, respiratory rate of 24, and heart rate of 76. HEENT: Unremarkable. NECK: Supple. LUNGS: Decreased breath sounds. HEART: Normal S1, S2. ABDOMEN: Soft. LABORATORY EXAMINATION: Reveals a white count of 8.7, hemoglobin of 8. BUN of 9, creatinine of 0.4. LFTs are elevated. Alk phos is elevated. Microbiology reveals the blood cultures are no growth. ASSESSMENT AND PLAN: A 72-year-old female who was seen earlier this morning in 128, bed 6 with rule out sepsis with right-sided healthcare-associated pneumonia, pleural effusion, and was initially admitted after a fall with generalized weakness. The patient with diabetes, hypertension, depression, stage IV lung cancer, on vancomycin, meropenem, and doxycycline day #2. Thus far, the blood cultures are negative. The white count is normal. Procalcitonin is 3.94. Alk phos is elevated. Creatinine of 0.4. The patient also had an abdominal ultrasound read by Dr. Dr. Tommy Colon. Interval hepatic masses identified, wide spread hepatic metastases suggested once again. CAT scan of the chest and abdomen is noted. Right pleural effusion and left pleural effusion. We will follow with you. MRSA screen is pending. Final blood cultures pending. Urine and sputum cultures pending. Prognosis is poor. Jorge Luis Hernandez MD
--- NOTE | 2018-01-05 15:55 | RAD ---
Date of service: 01/05/2018 HISTORY: Chest Tube Placement COMPARISON: CT 01/03/2018 FINDINGS: LUNGS: No active pulmonary disease. PLEURA: Right-sided chest tube in place. Decreased size of pleural effusion. No pneumothorax CARDIOVASCULAR: Normal. OSSEOUS STRUCTURES: No significant abnormalities. VISUALIZED UPPER ABDOMEN: Normal. OTHER FINDINGS: None. IMPRESSION: Right-sided chest tube in place. Decreased size of pleural effusion. No pneumothorax
[2018-01-05] MEDS ORDERED: Morphine 4 mg/ml ISec IVP PRN (16:53)
[2018-01-05] MEDS ORDERED: HYDROmorphone 0.5 mg/0.5 ml ISec IVP SCH (18:00)
[2018-01-05] MEDS: Morphine 4 mg/ml ISec IVP PRN ×3 (19:58→23:46)
--- NOTE | 2018-01-05 23:57 | PN ---
DATE: 01/05/2018 PULMONARY CRITICAL CARE PROGRESS NOTE REFERRING PHYSICIAN: Dr. Cain. SUBJECTIVE: Lying in the bed, head at 45 degrees. Family is at bedside. Overnight events noted. Spoke to Dr. Lars Alvarado, requiring right-sided chest tube with a bloody serosanguineous effusion. Complaining of back pain. No cough. No sputum production. Breathing is better. No leg pain or leg swelling. OBJECTIVE: GENERAL: In no acute distress. VITAL SIGNS: Temperature is 98, heart rate is 84, respiratory rate is 18, pulse ox 99% on nasal cannula, blood pressure 102/85. HEENT: Dry mucous membranes. Crowded airway. NECK: Supple. No JVD. LUNGS: Have a better airflow on the right lung with the chest tube. HEART: S1 and S2. ABDOMEN: Soft, nontender. EXTREMITIES: There is trace edema. NEUROLOGICAL: Awake, alert, follows simple commands. MEDICATIONS: She is on doxycycline 100 mg twice a day, albuterol/Atrovent nebulizer every 6 hours, fentanyl patch every 72 hours, lactulose 20 g at bedtime, insulin coverage, meropenem 1 g IV every 8 hours, morphine 4 mg every 2 hours p.r.n., also morphine 15 mg immediate release every 6 hours p.r.n., nystatin oral suspension four times a day, Pepcid 40 mg at bedtime, Tylenol p.r.n., vancomycin 1 g IV every 12 hours, Xanax 0.25 mg three times a day, Zofran p.r.n. basis. LABORATORY DATA: Shows hemoglobin 8.6, hematocrit 27.8, WBC 8.7, platelet count is 113. ABG show pH 7.56, pCO2 of 35, O2 59 that is on nasal cannula. Sodium 141, potassium 3.6, chloride 101, bicarbonate 32, BUN 9, creatinine 0.4, glucose 184, calcium 8.1, total bili 1.8, direct bili 1.6, AST 140, ALT 60, alk phos is 825. Albumin is 3.2. Legionella antigen is negative. Microbiology, urine and blood culture has been negative. Post chest tube chest x-ray, improved effusion on the right side. IMPRESSION AND PLAN: Small cell extensive disease involving lung, liver, spine; retroperitoneal lymphadenopathy; chronic obstructive lung disease; right pleural effusion requiring chest tube; depression; anxiety disorder; chronic pain syndrome; elevated liver enzyme; may have a component of pneumonia with increased procalcitonin level. Case discussed with family at bedside. All the questions answered. Also spoke to Dr. Lars Alvarado. Agree with the chest tube placement. We will follow chest x-rays. Continue incentive spirometer, bronchodilator, gastric prophylaxis. Continue to watch platelet. Follow up labs the morning. Critical care time more than 35 minutes. Thank you and we will follow with you. Robert Eastman MD
[2018-01-06] MEDS: Albuterol-Ipratrop 3 mg / 0.5 (3 ml) UD IH SCH ×4 (01:00→20:29)
--- NOTE | 2018-01-06 06:05 | CP.PCM.PN ---
<Joseph Drew - Last Filed: 01/06/18 12:48> Subjective - Date & Time of Evaluation Date of Evaluation: 01/06/18 Time of Evaluation: 06:03 - Subjective Subjective: GI Fellow PGY4 No changes from yesterday. Patient states, "I feel like giving up". Objective - Vital Signs/Intake and Output Vital Signs (last 24 hours): Temp Pulse Resp BP Pulse Ox 97.8 F 102 H 14 143/75 98 01/05/18 18:00 01/06/18 02:00 01/05/18 23:50 01/05/18 23:00 01/05/18 23:50 Intake and Output: 01/05/18 01/06/18 18:59 06:59 Intake Total 1270 260 Output Total 1095 Balance 175 260 - Medications Medications: Current Medications Acetaminophen (Tylenol 325mg Tab) 650 mg PO Q6H PRN PRN Reason: Fever >100.4 F Albuterol/Ipratropium (Duoneb 3 Mg/0.5 Mg (3 Ml) Ud) 3 ml IH [id number] KIMMY Last Admin: 01/06/18 01:00 Dose: Not Given Albuterol/Ipratropium (Duoneb 3 Mg/0.5 Mg (3 Ml) Ud) 3 ml IH Q2H PRN PRN Reason: Shortness of Breath Alprazolam (Xanax) 0.25 mg PO TID PRN; Protocol PRN Reason: Anxiety Stop: 01/10/18 19:15 Alprazolam (Xanax) 0.25 mg PO BID KIMMY PRN Reason: Protocol Stop: 01/11/18 10:01 Last Admin: 01/05/18 21:19 Dose: 0.25 mg Famotidine (Pepcid) 40 mg PO HS KIMMY Last Admin: 01/05/18 21:12 Dose: 40 mg Fentanyl (Duragesic) 1 patch TD Q72 KIMMY Doxycycline Hyclate 100 mg/ (Sodium Chloride) 100 mls @ 100 mls/hr IVPB Q12 KIMMY PRN Reason: Protocol Last Admin: 01/05/18 21:16 Dose: 100 mls/hr Vancomycin HCl (Vancomycin 1gm) 1 gm in 250 mls @ 167 mls/hr IVPB Q12H KIMMY PRN Reason: Protocol Last Admin: 01/05/18 20:38 Dose: 167 mls/hr Meropenem (Merrem Iv 1 Gm Premix) 50 mls @ 100 mls/hr IVPB Q8 KIMMY PRN Reason: Protocol Last Admin: 01/05/18 21:08 Dose: 100 mls/hr Insulin Human Regular (Humulin R Low) 0 units SC ACHS KIMMY PRN Reason: Protocol Last Admin: 01/05/18 23:35 Dose: Not Given Lactulose (Enulose) 20 gm PO HS [facility] Last Admin: 01/05/18 21:08 Dose: 20 gm Morphine Sulfate (Morphine Immediate Release Tab) 15 mg PO Q6 PRN PRN Reason: Pain, moderate (4-7) Last Admin: 01/04/18 12:12 Dose: 15 mg Morphine Sulfate (Morphine) 4 mg IVP Q2 PRN PRN Reason: Pain, moderate (4-7) Last Admin: 01/05/18 23:46 Dose: 4 mg Nystatin (Nystatin Oral Susp) 5 ml PO QID [facility] Last Admin: 01/05/18 21:08 Dose: 5 ml Ondansetron HCl (Zofran Inj) 4 mg IVP Q6H PRN PRN Reason: Nausea/Vomiting - Labs Labs: 01/05/18 11:20 01/05/18 06:00 PT 13.8 SECONDS (9.4-12.5) H 01/03/18 16:45 INR 1.21 01/03/18 16:45 APTT 21.2 Seconds (25.1-36.5) L 01/03/18 16:45 - Constitutional Appears: No Acute Distress, Chronically Ill - Head Exam Head Exam: NORMAL INSPECTION - Eye Exam Eye Exam: Normal appearance - ENT Exam ENT Exam: Mucous Membranes Moist - Respiratory Exam Respiratory Exam: Clear to Ausculation Bilateral, NORMAL BREATHING PATTERN - Cardiovascular Exam Cardiovascular Exam: REGULAR RHYTHM - GI/Abdominal Exam GI & Abdominal Exam: Soft, Normal Bowel Sounds. 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 #Small cell lung CA, stage IV - mets to liver, spine #Abnormal LFT #Subdural hematoma, chronic #Pleural effusion - s/p thoracostomy tube #GERD #DM #HTN #COPD #Constipation PLAN: -CT reviewed. Transverse colon is collapsed. No signs of colitis or other acute changes of the colon. No reported diarrhea, bleeding. -LFT abnormalities likely due to metastatic disease, mild worsening compared to last week. -Portal vein without obvious thrombosis -Abdominal U/S to r/o gallstones, choledocolithiasis -Avoid hepatotoxic meds -Ammonia mildly elevated. Lactulose to optimize status. Goal 1-2 BMs per day. Titrate as needed. Avoid dehydration as she has poor PO intake. -Continue PPI -Zofran PRN -Abx per ID. She is on multiple (Doxy, merrem, vanco). -Encourage eating -No endoscopic procedures planned. <Avinash Carlos V - Last Filed: 01/07/18 00:35> Objective - Vital Signs/Intake and Output Vital Signs (last 24 hours): Temp Pulse Resp BP Pulse Ox 97.6 F 104 H 16 118/63 96 01/06/18 22:24 01/06/18 22:24 01/06/18 22:24 01/06/18 22:24 01/06/18 22:24 - Medications Medications: Current Medications Acetaminophen (Tylenol 325mg Tab) 650 mg PO Q6H PRN PRN Reason: Fever >100.4 F Albuterol/Ipratropium (Duoneb 3 Mg/0.5 Mg (3 Ml) Ud) 3 ml IH [id number] [facility] Last Admin: 01/06/18 20:29 Dose: 3 ml Albuterol/Ipratropium (Duoneb 3 Mg/0.5 Mg (3 Ml) Ud) 3 ml IH Q2H PRN PRN Reason: Shortness of Breath Alprazolam (Xanax) 0.25 mg PO TID PRN; Protocol PRN Reason: Anxiety Stop: 01/10/18 19:15 Last Admin: 01/06/18 21:40 Dose: 0.25 mg Alprazolam (Xanax) 0.25 mg PO BID KIMMY PRN Reason: Protocol Stop: 01/11/18 10:01 Last Admin: 01/06/18 18:00 Dose: Not Given Famotidine (Pepcid) 40 mg PO HS [facility] Last Admin: 01/06/18 21:40 Dose: 40 mg Fentanyl (Duragesic) 1 patch TD Q72 KIMMY Last Admin: 01/06/18 10:27 Dose: 1 patch Doxycycline Hyclate 100 mg/ (Sodium Chloride) 100 mls @ 100 mls/hr IVPB Q12 KIMMY PRN Reason: Protocol Last Admin: 01/06/18 23:23 Dose: 100 mls/hr Vancomycin HCl (Vancomycin 1gm) 1 gm in 250 mls @ 167 mls/hr IVPB Q12H KIMMY PRN Reason: Protocol Last Admin: 01/06/18 20:16 Dose: 167 mls/hr Meropenem (Merrem Iv 1 Gm Premix) 50 mls @ 100 mls/hr IVPB Q8 KIMMY PRN Reason: Protocol Last Admin: 01/06/18 21:41 Dose: 100 mls/hr Insulin Human Regular (Humulin R Low) 0 units SC ACHS KIMMY PRN Reason: Protocol Last Admin: 01/06/18 17:12 Dose: Not Given Lactulose (Enulose) 20 gm PO HS [facility] Last Admin: 01/06/18 21:41 Dose: 20 gm Morphine Sulfate (Morphine Immediate Release Tab) 15 mg PO Q6 PRN PRN Reason: Pain, moderate (4-7) Last Admin: 01/04/18 12:12 Dose: 15 mg Morphine Sulfate (Morphine) 4 mg IVP Q2 PRN PRN Reason: Pain, moderate (4-7) Last Admin: 01/06/18 20:51 Dose: 4 mg Nystatin (Nystatin Oral Susp) 5 ml PO QID KIMMY Last Admin: 01/06/18 21:40 Dose: 5 ml Ondansetron HCl (Zofran Inj) 4 mg IVP Q6H PRN PRN Reason: Nausea/Vomiting - Labs Labs: 01/06/18 08:20 01/06/18 08:20 PT 13.8 SECONDS (9.4-12.5) H 01/03/18 16:45 INR 1.21 01/03/18 16:45 APTT 21.2 Seconds (25.1-36.5) L 01/03/18 16:45 Attending/Attestation - Attestation I have personally seen and examined this patient.: Yes I have fully participated in the care of the patient.: Yes I have reviewed all pertinent clinical information, including history, physical exam and plan: Yes Notes (Text): This is an addendum to GI progress report dictated by the GI Fellow.The patient was seen and examined earlier. Medical records, lab studies, imagings were reviewed. Last 24 hours events reviewed. Agreed with the above treatment plan as outlined in GI Fellow 's notes with the addition of the following This patient with metastatic small cell carcinoma Part of the hepatic disfunction could be secondary to veinus compression vs excessive tumor burden on liver Follow up LFTs will discuss with DR Puente and DR grajeda 01/07/18 00:29
[2018-01-06] MEDS: Meropenem IV 1 gm in NS 50 ML IVPB SCH ×3 (07:05→21:41)
[2018-01-06] MEDS: Morphine 4 mg/ml ISec IVP PRN ×4 (07:05→20:51)
--- NOTE | 2018-01-06 08:26 | RAD ---
Date of service: 01/06/2018 HISTORY: effusion COMPARISON: 01/05/2018 FINDINGS: LUNGS: Right-sided chest tube remains in place. Improved vascular congestion PLEURA: No significant pleural effusion identified, no pneumothorax apparent. CARDIOVASCULAR: Normal. OSSEOUS STRUCTURES: No significant abnormalities. VISUALIZED UPPER ABDOMEN: Normal. OTHER FINDINGS: None. IMPRESSION: Right-sided chest tube remains in place with no pleural effusion. Decreased vascular congestion
[2018-01-06 08:37] LABS: BASO # 0.01 K/mm3 (0.0-2.0); BASO % 0.1 % (0.0-3.0); GRAN # 7.69 (1.4-6.5); GRAN % 87.4 % (50.0-68.0); LYMPH # 0.7 (1.2-3.4); LYMPH % 7.6 % (22.0-35.0); MEAN CELL VOLUME 105.4 fl (80.0-105.0); MEAN CORPUSCULAR HEMOGLOBIN 32.3 pg (25.0-35.0); MEAN CORPUSCULAR HGB CONC 30.6 g/dl (31.0-37.0); MEAN PLATELET VOLUME 9.4 fl (7.0-11.0); MONO # 0.4 (0.1-0.6); MONO % 4.9 % (1.0-6.0); RBC 2.79 10^6/uL (3.5-6.1); RED CELL DISTRIBUTION WIDTH 22.5 % (11.5-14.5); WHITE BLOOD COUNT 8.8 10^3/ul (4.5-11.0)
[2018-01-06] MEDS: Vancomycin 1gm in NS 250ml 1 GM/250 ML BAG IVPB SCH ×2 (08:45→20:16)
[2018-01-06] MEDS: Insulin Reg-LOW-Coverage SC SCH ×3 (08:45→17:12)
[2018-01-06 08:47] LABS: ALB/GLOB RATIO 0.9 (1.1-1.8); ALBUMIN 2.8 g/dL (3.0-4.8); ALT/SGPT 67 U/L (7-56); AST/SGOT 141 U/L (14-36); BLOOD UREA NITROGEN 10 mg/dL (7-21); CALCIUM 7.9 mg/dL (8.4-10.5); GFR NON-AFRICAN AMERICAN > 60
[2018-01-06] MEDS: Nystatin 100,000 Units/ml Oral Susp 5 ml UD PO SCH ×4 (10:27→21:40)
[2018-01-06] MEDS ORDERED: Potassium Chloride 20 mEq ER Tab PO ONE (10:52)
--- NOTE | 2018-01-06 11:02 | CP.PCM.PN ---
Subjective - Date & Time of Evaluation Date of Evaluation: 01/06/18 Time of Evaluation: 11:01 - Subjective Subjective: Heme/Onc Progress Note for Dr. Puente -- Terell Lam DO PGY2 Patient seen and examined at bedside. No acute overnight events. Patient had chest tube placed yesterday. Patient states that pain is better controlled on new pain regime. Patient denies CP, SOB, n/v/d, abdominal pain, fever, chills, VASQUES, or dizziness. Objective - Vital Signs/Intake and Output Vital Signs (last 24 hours): Temp Pulse Resp BP Pulse Ox 97.9 F 96 H 19 130/70 99 01/06/18 06:00 01/06/18 10:26 01/06/18 06:00 01/06/18 10:26 01/06/18 06:00 Intake and Output: 01/06/18 01/06/18 06:59 18:59 Intake Total 260 Balance 260 - Medications Medications: Current Medications Acetaminophen (Tylenol 325mg Tab) 650 mg PO Q6H PRN PRN Reason: Fever >100.4 F Albuterol/Ipratropium (Duoneb 3 Mg/0.5 Mg (3 Ml) Ud) 3 ml IH [id number] [facility] Last Admin: 01/06/18 07:58 Dose: 3 ml Albuterol/Ipratropium (Duoneb 3 Mg/0.5 Mg (3 Ml) Ud) 3 ml IH Q2H PRN PRN Reason: Shortness of Breath Alprazolam (Xanax) 0.25 mg PO TID PRN; Protocol PRN Reason: Anxiety Stop: 01/10/18 19:15 Alprazolam (Xanax) 0.25 mg PO BID KIMMY PRN Reason: Protocol Stop: 01/11/18 10:01 Last Admin: 01/06/18 10:27 Dose: 0.25 mg Famotidine (Pepcid) 40 mg PO HS [facility] Last Admin: 01/05/18 21:12 Dose: 40 mg Fentanyl (Duragesic) 1 patch TD Q72 KIMMY Last Admin: 01/06/18 10:27 Dose: 1 patch Doxycycline Hyclate 100 mg/ (Sodium Chloride) 100 mls @ 100 mls/hr IVPB Q12 KIMMY PRN Reason: Protocol Last Admin: 01/05/18 21:16 Dose: 100 mls/hr Vancomycin HCl (Vancomycin 1gm) 1 gm in 250 mls @ 167 mls/hr IVPB Q12H KIMMY PRN Reason: Protocol Last Admin: 01/06/18 08:45 Dose: 167 mls/hr Meropenem (Merrem Iv 1 Gm Premix) 50 mls @ 100 mls/hr IVPB Q8 KIMMY PRN Reason: Protocol Last Admin: 01/06/18 07:05 Dose: 100 mls/hr Insulin Human Regular (Humulin R Low) 0 units SC ACHS KIMMY PRN Reason: Protocol Last Admin: 01/06/18 08:45 Dose: 1 unit Lactulose (Enulose) 20 gm PO HS KIMMY Last Admin: 01/05/18 21:08 Dose: 20 gm Morphine Sulfate (Morphine Immediate Release Tab) 15 mg PO Q6 PRN PRN Reason: Pain, moderate (4-7) Last Admin: 01/04/18 12:12 Dose: 15 mg Morphine Sulfate (Morphine) 4 mg IVP Q2 PRN PRN Reason: Pain, moderate (4-7) Last Admin: 01/06/18 07:05 Dose: 4 mg Nystatin (Nystatin Oral Susp) 5 ml PO QID [facility] Last Admin: 01/06/18 10:27 Dose: 5 ml Ondansetron HCl (Zofran Inj) 4 mg IVP Q6H PRN PRN Reason: Nausea/Vomiting - Labs Labs: 01/06/18 08:20 01/06/18 08:20 PT 13.8 SECONDS (9.4-12.5) H 01/03/18 16:45 INR 1.21 01/03/18 16:45 APTT 21.2 Seconds (25.1-36.5) L 01/03/18 16:45 - Constitutional Appears: No Acute Distress - Head Exam Additional comments: alopecia - Eye Exam Eye Exam: Normal appearance - ENT Exam ENT Exam: Mucous Membranes Moist - Respiratory Exam Respiratory Exam: Decreased Breath Sounds (right). absent: Rales, Rhonchi, Wheezes Additional comments: chest tube placed on right - Cardiovascular Exam Cardiovascular Exam: RRR, +S1, +S2. absent: Gallop, Rubs, Murmur - GI/Abdominal Exam GI & Abdominal Exam: Soft. 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 Patient was discharged [facility]. However, she was found to have AMS and was sent to [facility] ED. In the ED, CT scan showed slight 1 mm expansion of the previous SDH. Patient was admitted to ICU for monitoring. Right pleural effusion was found on imaging, ID is consulted and will r/o HCAP. Chest tube was placed for right pleural effusion. Patient also noted to have thrombocytopenia and required 2 units of platelets. Plan: - Pain regime adjusted, patient tolerating well - F/u abdominal ultrasound - H/H stable, will continue to monitor - Maintain platelets > 100 in setting of SDH - Received 2 units of platelets overall - Platelet 107 today, will continue to monitor - Will consider maintenance chemotherapy - Chest tube placed yesterday s/p thoracentesis for R pleural effusion - Abx per ID, will r/o HCAP with elevated Procal - Further recommendations per ID, IR, and primary Case reviewed and discussed with attending. Terell Lam, DO PGY2
--- NOTE | 2018-01-06 13:40 | CP.PCM.PN ---
Subjective - Date & Time of Evaluation Date of Evaluation: 01/06/18 Time of Evaluation: 10:50 - Subjective Subjective: Has occasional pain at the chest tube site, no fevers, not in distress, but feels weak and tired. Objective - Vital Signs/Intake and Output Vital Signs (last 24 hours): Temp Pulse Resp BP Pulse Ox 97.9 F 95 H 19 140/72 99 01/06/18 06:00 01/06/18 06:00 01/06/18 06:00 01/06/18 06:00 01/06/18 06:00 Intake and Output: 01/05/18 01/06/18 18:59 06:59 Intake Total 1270 260 Output Total 1095 Balance 175 260 - Medications Medications: Current Medications Acetaminophen (Tylenol 325mg Tab) 650 mg PO Q6H PRN PRN Reason: Fever >100.4 F Albuterol/Ipratropium (Duoneb 3 Mg/0.5 Mg (3 Ml) Ud) 3 ml IH [id number] KIMMY Last Admin: 01/06/18 01:00 Dose: Not Given Albuterol/Ipratropium (Duoneb 3 Mg/0.5 Mg (3 Ml) Ud) 3 ml IH Q2H PRN PRN Reason: Shortness of Breath Alprazolam (Xanax) 0.25 mg PO TID PRN; Protocol PRN Reason: Anxiety Stop: 01/10/18 19:15 Alprazolam (Xanax) 0.25 mg PO BID KIMMY PRN Reason: Protocol Stop: 01/11/18 10:01 Last Admin: 01/05/18 21:19 Dose: 0.25 mg Famotidine (Pepcid) 40 mg PO HS [facility] Last Admin: 01/05/18 21:12 Dose: 40 mg Fentanyl (Duragesic) 1 patch TD Q72 KIMMY Doxycycline Hyclate 100 mg/ (Sodium Chloride) 100 mls @ 100 mls/hr IVPB Q12 KIMMY PRN Reason: Protocol Last Admin: 01/05/18 21:16 Dose: 100 mls/hr Vancomycin HCl (Vancomycin 1gm) 1 gm in 250 mls @ 167 mls/hr IVPB Q12H KIMMY PRN Reason: Protocol Last Admin: 01/05/18 20:38 Dose: 167 mls/hr Meropenem (Merrem Iv 1 Gm Premix) 50 mls @ 100 mls/hr IVPB Q8 KIMMY PRN Reason: Protocol Last Admin: 01/05/18 21:08 Dose: 100 mls/hr Insulin Human Regular (Humulin R Low) 0 units SC ACHS KIMMY PRN Reason: Protocol Last Admin: 01/05/18 23:35 Dose: Not Given Lactulose (Enulose) 20 gm PO HS [facility] Last Admin: 01/05/18 21:08 Dose: 20 gm Morphine Sulfate (Morphine Immediate Release Tab) 15 mg PO Q6 PRN PRN Reason: Pain, moderate (4-7) Last Admin: 01/04/18 12:12 Dose: 15 mg Morphine Sulfate (Morphine) 4 mg IVP Q2 PRN PRN Reason: Pain, moderate (4-7) Last Admin: 01/05/18 23:46 Dose: 4 mg Nystatin (Nystatin Oral Susp) 5 ml PO QID [facility] Last Admin: 01/05/18 21:08 Dose: 5 ml Ondansetron HCl (Zofran Inj) 4 mg IVP Q6H PRN PRN Reason: Nausea/Vomiting - Labs Labs: 01/05/18 11:20 01/05/18 06:00 PT 13.8 SECONDS (9.4-12.5) H 01/03/18 16:45 INR 1.21 01/03/18 16:45 APTT 21.2 Seconds (25.1-36.5) L 01/03/18 16:45 - Constitutional Appears: Chronically Ill - Head Exam Head Exam: NORMAL INSPECTION - ENT Exam ENT Exam: Mucous Membranes Moist - Neck Exam Neck Exam: absent: Meningismus - Respiratory Exam Respiratory Exam: Decreased Breath Sounds Additional comments: right chest tube with serous drainage - Cardiovascular Exam Cardiovascular Exam: +S1, +S2 - GI/Abdominal Exam GI & Abdominal Exam: Soft. absent: Tenderness Assessment and Plan - Assessment and Plan (Free Text) Plan: Assessment R/O sepsis due to right sided HCAP with pleural effusion, R/O sepsis due to transverse colon colitis; S/P right chest tube placement subdural hematoma in the head history of sepsis due to right sided HCAP, S/P neutropenia history of sepsis due to right middle lobe HCAP on top of ESBL Klebsiella and Proteus UTI stage 3 decubitus ulcer history of Systemic viral illness with Influenza and acute bronchitis stage 4 lung cancer history of asymptomatic bacteriuria with VRE in the urine DM HTN depression lower back tumor obesity with BMI 30 Plan continue Vancomycin, Merrem and Doxycycline day 3; cultures have been negative reviewed CT C/A/P Neurosurgery evaluating subdural hematoma overall prognosis is poor
--- NOTE | 2018-01-06 14:15 | PN ---
DATE: 01/06/2018 SUBJECTIVE: The patient is a 72-year-old, seen and examined, was transferred out of ICU, underwent pigtail catheter placement and chest tube placed. The patient states she has a very little improvement in pain. Denies any fever or chills. Not much appetite. Her breathing is a little better. She still has bilateral leg swelling with bruises. PHYSICAL EXAMINATION: VITAL SIGNS: The patient is afebrile, pulse 96, respirations 19, blood pressure 130/70. LUNGS: She has fair airflow in upper lung region, decreased at the bases. Somewhat improved in the right lower lung area. breath sound in the left lower base. HEART: S1, S2 audible. ABDOMEN: Soft. Right upper quadrant palpable discomfort. No rebound or guarding. EXTREMITIES: Bilateral legs, she has +1 edema with bruises in different stages. LABORATORY DATA: WBC is 8.8, hemoglobin 9, hematocrit 29.4, platelet 107. Chemistry: Sodium 139, potassium 3.3, chloride 102, CO2 31, BUN 10, creatinine 0.4, blood sugar of 70. Total bilirubin 1.8. AST is 141, ALT 67, alkaline phosphatase is 742. Stool cultures are negative. Urine for Legionella is negative. IMPRESSION: 1. Right pleural effusion, status post chest tube insertion. X-ray shows decreased congestion. 2. Small cell carcinoma with bony metastasis and liver metastasis. 3. Chronic obstructive pulmonary disease. 4. Subdural hematoma with no recent increase in size. Neurosurgical input noted. There is no plan for any intervention. 5. Peptic ulcer disease. 6. Upk-rwmosmn-brpoqnftu diabetes. 7. Poor oral intake. PLAN: Overall prognosis is poor. She is on doxycycline. We will continue that. Continue nebulizer treatment. She is on Duragesic patch. She is on meropenem. Analgesic as needed. We will discuss with Dr. Puente for long-term plan. Fortino Cain MD
--- NOTE | 2018-01-06 15:18 | US ---
Date of service: 01/06/2018 HISTORY: Please evaluate CBD, GB COMPARISON: Comparison is made to the previous study dated 01/05/2018 CT study dated 12/20/2017 and 01/03/2018 TECHNIQUE: Sonographic evaluation of the abdomen. FINDINGS: LIVER: Measures 21 cm. Markedly heterogeneous echogenicity of the liver parenchyma. There are multiple mass lesions in the liver suggestive of malignant neoplasm likely metastasis. The largest mass measures 10 centimeter. GALLBLADDER: Unremarkable. No gallstones. COMMON BILE DUCT: Measures 4.9 mm. No stones. No dilatation. PANCREAS: The pancreas is obscured by overlying bowel gas. RIGHT KIDNEY: Measures 11.2 x 4.5 x 4.6cm. Normal echogenicity. No calculus, mass, or hydronephrosis. LEFT KIDNEY: Measures 9.6 x 5.9 x 5.4cm. Normal echogenicity. No calculus, mass, or hydronephrosis. SPLEEN: Normal in size and contour. No mass. AORTA: No aneurysmal dilatation. IVC: Unremarkable. OTHER FINDINGS: None. IMPRESSION: Multiple mass lesions in the liver likely represent metastasis with the largest mass measures 10 centimeter. No evidence of cholelithiasis or acute cholecystitis. The common bile duct measures 4.9 millimeter.
--- NOTE | 2018-01-06 22:29 | PN ---
DATE: 01/06/2018 PULMONARY PROGRESS NOTE REFERRING PHYSICIAN: Fortino Cain MD SUBJECTIVE: The patient is lying in the bed, head at 45 degrees. Daughter is at bedside. Just received pain medication. No cough, no sputum production, no chest pain. Has a right-sided chest tube, not much drainage anymore. Still has low back pain. No leg swelling. OBJECTIVE GENERAL: In no acute distress. VITAL SIGNS: Temperature is 98, heart rate is 98, respiratory rate is 18, blood pressure 130/59, pulse ox 98% on 2 liters nasal cannula. HEENT: Moist mucous membrane. Crowded airway. NECK: Supple. No JVD. LUNGS: Have a scattered rhonchi. Right-sided chest tube. HEART: S1 and S2. ABDOMEN: Soft, nontender, no organomegaly. EXTREMITIES: There is trace edema. NEUROLOGIC: Sleepy, arousable. Follows simple command. MEDICATIONS: She is on doxycycline 100 mg twice a day, DuoNeb every 2 hours p.r.n. and every 6 hours round the clock, fentanyl patch every 72 hours, lactulose 20 g at bedtime, insulin coverage, meropenem 1 g IV every 8 hours, morphine 4 mg every 2 hours p.r.n. and also morphine sulfate immediate release 15 mg every 6 hours p.r.n., nystatin oral suspension is 5 mL four times daily, Pepcid 40 mg daily, Tylenol p.r.n., vancomycin 1 g IV every 12 hours, Xanax 0.25 mg twice a day, Zofran p.r.n. basis. LABORATORY DATA: Shows hemoglobin 9.7, hematocrit 29.4, WBC 8.8, platelet count is 107. Sodium 139, potassium 3.3, chloride 102, bicarbonate 31, BUN 10, creatinine 0.4, glucose 170, calcium 7.9, total bili 1.8, AST 141, ALT 67, alkaline phosphatase is 742, albumin is 2.8. Microbiology: Blood culture, urine culture and nares culture is unremarkable. Chest x-ray done today shows right-sided chest tube has remained in place, but pleural effusion is gone and also congestion has decreased. IMPRESSION AND PLAN: Small cell extensive disease involving lungs, liver and spine, status post chemotherapy, also requiring radiation therapy, retroperitoneal lymphadenopathy, chronic obstructive lung disease, right pleural effusion, requiring chest tube, depression, anxiety, chronic pain syndrome, elevated liver enzyme. Pulmonary point of view, she is doing very well. Continue bronchodilator. Keep head at 45 degrees. Pain management. Followup and removal of chest tube as per Dr. Lars Alvarado. Gastric and deep venous thrombosis prophylaxes. I spoke to family at bedside. All the questions answered. Thank you and we will follow with you. Robert Eastman MD
[2018-01-07] MEDS: Albuterol-Ipratrop 3 mg / 0.5 (3 ml) UD IH SCH ×4 (01:20→22:43)
[2018-01-07] MEDS: Morphine 4 mg/ml ISec IVP PRN ×6 (01:46→20:11)
[2018-01-07] MEDS: Insulin Reg-LOW-Coverage SC SCH ×4 (03:28→17:22)
[2018-01-07] MEDS: Meropenem IV 1 gm in NS 50 ML IVPB SCH ×3 (05:35→21:43)
[2018-01-07] MEDS: Vancomycin 1gm in NS 250ml 1 GM/250 ML BAG IVPB SCH (06:32)
[2018-01-07] MEDS: Nystatin 100,000 Units/ml Oral Susp 5 ml UD PO SCH ×4 (09:01→21:42)
--- NOTE | 2018-01-07 12:48 | PN ---
DATE: 01/07/2018 SUBJECTIVE: The patient is 72 years old, seen and examined. Complained of having pain. Mild shortness of breath. Eating fair. Does not want to be moved. Complained of right upper quadrant and right lower chest area pain. PHYSICAL EXAMINATION: VITAL SIGNS: The patient is afebrile, pulse 110, respirations 20, blood pressure 127/77. LUNGS: Bilateral decreased breath sounds at bases. HEART: S1 and S2 audible. ABDOMEN: Soft. Nontender. No rebound. No guarding. NEUROLOGICAL: The patient is awake, alert, able to communicate. EXTREMITIES: Bilateral leg +2 edema with bruises. She has right chest tube draining straw-color fluid. LABORATORY EXAM: WBC is 8.8, hemoglobin 9, hematocrit 29.4, platelet Of 107. Chemistry: Blood sugar is 187. LFTS are abnormal. AST 141, ALT 67, alk phos is 742. Blood culture, urine cultures were negative. X-ray chest that was done yesterday shows improvement in right pleural effusion. ASSESSMENT: 1. Right pleural effusion, status post chest tube insertion. 2. Metastatic small cell carcinoma of the lung. 3. Noninsulin-dependent diabetes. 4. Bony metastasis with intractable back pain. PLAN: Currently, the patient is on doxycycline. She is getting nebulizer treatment. She is on Duragesic patch. She is on meropenem. She is on morphine. The patient has sacral decubitus. Discussed with the nurse. We have to keep her off of her back for better wound healing. I will order for . Follow up the patient in the a.m. Fortino Cain MD
--- NOTE | 2018-01-07 14:33 | PN ---
DATE: 01/07/2018 SUBJECTIVE: The patient is admitted. Seen earlier this morning in 572. No fevers. No chills. No nausea. Uneventful night. PHYSICAL EXAMINATION: VITAL SIGNS: On exam, temperature is 98, blood pressure is 120/70, respiratory rate of 16. HEENT: Examination of HEENT is unremarkable. NECK: Supple. LUNGS: Have decreased breath sounds. HEART: Normal S1 and S2. ABDOMEN: Soft, nontender. LABORATORY DATA: Laboratory examination reveals a white count of 8000 and hemoglobin of 9. BUN of 10, creatinine of 0.4. Urinalysis is noted. ASSESSMENT AND PLAN: A 72-year-old with sepsis with right-sided healthcare-associated pneumonia, pleural effusions, on vancomycin, meropenem, doxycycline, day #4. The patient is diabetic, hypertensive, depression. Review of the cultures reveals the blood cultures are negative. The methicillin-resistant Staphylococcus aureus screen is negative. The urine culture has multiple organism. The procalcitonin is elevated. We will discontinue the vancomycin due to negative blood cultures, negative methicillin-resistant Staphylococcus aureus screen. We will follow with you. We should do a trend of procalcitonin also. Jorge Luis Hernandez MD
--- NOTE | 2018-01-07 20:22 | PN ---
DATE: 01/07/2018 PULMONARY PROGRESS NOTE REFERRING PHYSICIAN: Fortino Cain MD SUBJECTIVE: She is lying in the bed, head at 45 degrees, comfortable. Still having low back pain requiring morphine. At a time confused specially after morphine dose. No headache. No rhinitis. No chest pain. No dysuria. No leg pain or leg swelling. OBJECTIVE: GENERAL: In no acute distress. VITAL SIGNS: Temperature is 98, heart rate is 110, respiratory rate is 20, blood pressure 123/72, pulse ox 97% on room air. HEENT: Moist mucous membranes. Small oral cavity. NECK: Supple. No JVD. LUNGS: Has a right-sided chest tube. Few crackles at the right base. HEART: S1 and S2. ABDOMEN: Soft, nontender. No organomegaly. EXTREMITIES: No edema. NEUROLOGICAL: Awake and alert. Follows simple command, at that time confused. MEDICATIONS: She is on doxycycline 100 mg twice a day, albuterol/Atrovent nebulizer every 2 hours p.r.n. and every 6 hours [id number], Duragesic patch every 72 hours, lactulose is 20 g at bedtime, insulin coverage, meropenem 1 g IV every 8 hours, morphine 4 mg every 2 hours p.r.n., and morphine sulfate 50 mg every 6 hours, nystatin oral suspension q.i.d., Pepcid 40 mg daily, Tylenol p.r.n., Xanax 0.25 mg twice a day, Zofran p.r.n. LABORATORY DATA: Shows hemoglobin yesterday 9. Blood sugar this morning is 180. Microbiology: Blood culture, urine culture and nares culture is unremarkable. IMPRESSION: Small cell lung cancer with extensive disease involving lungs, liver, spine, retroperitoneal lymphadenopathy, been on chemotherapy and radiation therapy, chronic obstructive lung disease, right pleural effusion requiring chest tube, depression, anxiety, chronic pain syndrome, elevated liver enzymes. Case discussed with nursing staff. Pulmonary point of view, she is doing okay. Does have some confusion phase probably secondary to morphine. I had a long discussion with the family yesterday. Family is very particular about taking the pain away and I agree. We will continue morphine as needed basis. Continue inhaled bronchodilator. Keep head at 45 degrees. Chest tube still draining. PLAN: Probably only next week, we will take off the chest tube. Encouraged the patient to get out of bed to chair. Fall precaution. Though, we will get physical therapy involved. Also, status post fall with subdural hematoma which according to last CD is not much change. Thank you and we will follow with you. Robert Eastman MD
[2018-01-08] MEDS: Morphine 4 mg/ml ISec IVP PRN ×3 (00:51→13:56)
[2018-01-08] MEDS: Albuterol-Ipratrop 3 mg / 0.5 (3 ml) UD IH SCH ×4 (01:09→20:30)
[2018-01-08] MEDS: Insulin Reg-LOW-Coverage SC SCH ×4 (05:01→17:31)
[2018-01-08] MEDS: Meropenem IV 1 gm in NS 50 ML IVPB SCH ×4 (05:53→22:31)
[2018-01-08 06:58] LABS: HEMOGLOBIN 9.3 g/dL (12.0-16.0); MEAN CELL VOLUME 105.9 fl (80.0-105.0); MEAN CORPUSCULAR HEMOGLOBIN 32.2 pg (25.0-35.0); MEAN CORPUSCULAR HGB CONC 30.4 g/dl (31.0-37.0); MEAN PLATELET VOLUME 10.1 fl (7.0-11.0); RBC 2.89 10^6/uL (3.5-6.1); RED CELL DISTRIBUTION WIDTH 22.5 % (11.5-14.5); WHITE BLOOD COUNT 9.4 10^3/ul (4.5-11.0)
[2018-01-08 07:30] LABS: ALB/GLOB RATIO 0.9 (1.1-1.8); ALBUMIN 2.6 g/dL (3.0-4.8); ALT/SGPT 65 U/L (7-56); AST/SGOT 170 U/L (14-36); BLOOD UREA NITROGEN 11 mg/dL (7-21); CALCIUM 7.9 mg/dL (8.4-10.5); GFR NON-AFRICAN AMERICAN > 60
[2018-01-08] MEDS: Nystatin 100,000 Units/ml Oral Susp 5 ml UD PO SCH ×5 (08:31→22:33)
--- NOTE | 2018-01-08 12:04 | PN ---
DATE: 01/08/2018 SUBJECTIVE: The patient has no complaints of any chest pain. No shortness of breath. She is asking about getting out of bed. PHYSICAL EXAMINATION: VITAL SIGNS: Temperature is 97.8, pulse of 110, blood pressure is 125/60, respiration is 18. GENERAL: The patient is lying in bed, flat, comfortable. HEENT: No oral lesion. Anicteric sclerae. Moist mucosa. NECK: No JVD, adenopathy, or thyromegaly. CARDIOVASCULAR: S1 and S2, regular. No murmurs, rubs, or gallops. LUNGS: Clear to auscultation bilaterally. No wheeze, rales, or rhonchi. ABDOMEN: Bowel sounds are positive, soft, nontender and nondistended. EXTREMITIES: No cyanosis, clubbing or edema. LABORATORY DATA: White count of 9.4, hemoglobin 9.3. Creatinine is 0.4, potassium is 3.3. ASSESSMENT: 1. Right-sided pleural effusion, status post chest tube. 2. Metastatic small cell lung cancer. 3. Diabetes type 2. 4. Chronic back pain secondary to metastasis. 5. History of subdural hematoma. PLAN: The patient is receiving doxycycline for antibiotics. She is on nebulizer treatments. The patient is on a fentanyl patch, this will be continued. The patient is on insulin sliding scale. We will also place the patient on Xanax as needed. She is on Zofran. The overall prognosis is guarded. Zev Vail MD
--- NOTE | 2018-01-08 15:35 | PN ---
DATE: 01/08/2018 SUBJECTIVE: The patient is in bed, in no acute distress, was seen earlier. However, the patient is weak, chronically ill. PHYSICAL EXAMINATION: VITAL SIGNS: Temperature of 98, blood pressure is 114/70, respiratory rate of 18. HEENT: Examination of HEENT is unremarkable. NECK: Supple. LUNGS: Have decreased breath sounds. HEART: Normal S1, S2. ABDOMEN: Soft, nontender. LABORATORY DATA: Laboratory examination reveals a white count of 9.4, hemoglobin of 9, platelets of 83. Coagulation is noted. Chemistries are noted. Microbiology reveals the blood cultures are negative, nasal MRSA screen, urine culture is negative. Orders reveals the patient to be on meropenem. ASSESSMENT AND PLAN: A 72-year-old female who was seen earlier today in 572, bed 1 with right-sided healthcare-associated pneumonia, pleural effusion, day #5 of meropenem in a patient who is diabetic, hypertensive, depression. On day #5 of meropenem, would complete 4-7 days of meropenem. Nasal methicillin-resistant Staphylococcus aureus is negative. We will discontinue the doxycycline. The urine Legionella antigen is also negative. We will discontinue the antibiotic in the next 24-48 hours. Currently, only on cefepime. Jorge Luis Hernandez MD
[2018-01-08] MEDS: HYDROmorphone 1 mg/ml ISec IVP PRN ×2 (17:31→23:49)
--- NOTE | 2018-01-08 22:10 | PN ---
DATE: 01/08/2018 REFERRING PHYSICIAN: Fortino Cain MD SUBJECTIVE: She is lying in the bed, sleepy, arousable. Denying any pain, lately added Dilaudid by Oncology services. Son is at bedside. She is complaining about dry mouth. No cough. No sputum production, has right-sided chest tube draining minimally. No vomiting. No leg swelling. OBJECTIVE: GENERAL: In no acute distress. VITAL SIGNS: Temperature is 98, heart rate is 106, respiratory rate is 18, blood pressure 119/56, pulse ox 96% on nasal cannula. HEENT: Dry mucous membrane. Crowded airway. NECK: Supple. No JVD. LUNGS: Have a fair airflow with few rhonchi. Right-sided chest tube. HEART: S1 and S2. ABDOMEN: Soft, nontender, no organomegaly. EXTREMITIES: No edema. NEUROLOGIC: Sleepy, arousable. Does follows simple command. MEDICATIONS: She is on Dilaudid 1 mg every 4 hours p.r.n. for severe pain, DuoNeb every 2 hours p.r.n., every 6 hours [id number], fentanyl patch every 72 hours, lactulose 20 g p.o. at bedtime, insulin coverage, meropenem 1 g IV every 8 hours, morphine sulfate extended release 50 mg every 12 hours round the clock, nystatin orally 4 times daily, Pepcid 40 mg at bedtime, Tylenol p.r.n., Xanax 0.25 mg 3 times a day p.r.n. Also, Xanax to 0.25 mg twice a day round the clock, Zofran p.r.n. basis. LABORATORY DATA: Shows hemoglobin 9.3, hematocrit 30.6, WBC 9.4, platelet count is 83. Sodium 138, potassium 2.3, chloride 103, bicarbonate 27, BUN 11, creatinine 0.4, glucose 137, calcium 7.9, total bili 2.3, AST 170, ALT 65, alk phos is 684. Albumin is 2.6, procalcitonin 3.61. Microbiology, blood culture, urine culture, there is no growth. IMPRESSION AND PLAN: Small cell lung cancer with extensive disease involving the lungs, liver and spine, retroperitoneal lymphadenopathy, right pleural effusion requiring chest tube, chronic obstructive lung disease, depression, anxiety disorder, chronic pain syndrome. Mildly elevated liver enzymes. Case discussed with the patient's son at bedside. All the questions answered, requesting nursing staff to add humidified O2. We will also add saliva substitute to the mouth, nasal saline 2 sprays each nostril every 2 hours p.r.n. May use petroleum jelly to the lips p.r.n. basis. Pain management, bronchodilator. Hopefully by tomorrow, we can pull out the chest tube. I spoke with Dr. Lars Alvarado. Also has a history of fall with subdural hematoma which been stable. Thank you and we will follow with you. Robert Eastman MD
[2018-01-08] MEDS: Morphine 15 mg SR Tab PO SCH (22:34)
[2018-01-09] MEDS: Insulin Reg-LOW-Coverage SC SCH ×5 (02:31→22:14)
[2018-01-09] MEDS: Albuterol-Ipratrop 3 mg / 0.5 (3 ml) UD IH SCH ×4 (02:50→20:36)
--- NOTE | 2018-01-09 04:51 | PN ---
DATE: 01/08/2018 LOCATION: The patient is in room 572, bed 1. This is an Oncology note. PROBLEM: This is a 72-year-old female with documented extensive small cell lung carcinoma with documented metastases to the liver, to the lung, and to the bone, status post radiation for cord compression, status post radiation to the main disease in the right upper lobe of the lung, status post radiation to the lower lumbar spine, to the right side of the sacrum for worsening bone pain on IV bisphosphonates, completed five cycles of chemotherapy, carboplatin and etoposide, was in the rehab, recovering post admission to the hospital recently about 5 weeks ago, and she had developed subdural cranial hematoma after a fall at home, but readmitted with increasing and worsening right upper quadrant pain and was found on admission to have significant right pleural effusion, post obstructive atelectasis and probably infection in the atelectatic lung for which she is being treated with antibiotics and a chest tube inserted, more than a liter and a half of fluid was removed. Some of the fluid had been sent for analysis, though the results of which are still pending. Patient has been having increasing pain, more so after the chest tube was inserted, mostly on the right side of the chest, radiating anteriorly, coming from the back, related to her metastatic disease as well. Appetite is decreased because of the pain and patient's nutritional status had been getting from bad to worse. SUBJECTIVE: The patient was seen lying in bed. She is responsive to verbal command. She is sleepy. She denies any pain since she has had the Dilaudid. It was added after I spoke to the patient. I spoken to the son who has also been actively involved in her management. Patient is complaining of a dry mouth. No cough, no sputum production. The right chest tube is draining minimally. Without any vomiting without any leg pain. PHYSICAL EXAMINATION: GENERAL: The patient is awake, alert, oriented, drowsy from the narcotics she just received; otherwise no significant distress on nasal cannula 2 liters per minute. VITAL SIGNS: Reveals T-max of 98.4, heart rate is 106, respirations 18, blood pressure is 119/56, pulse ox is 96% on the nasal cannula. HEENT: Head is normocephalic, atraumatic. Conjunctivae pale. Sclerae are anicteric. Pupils are equally reactive to light and accommodation. Examination of the oropharynx reveals dry mucosa. Tongue is more dry. No lesions are noted. No evidence of fungal infection noted. Patient is edentulous. NECK: Supple. There is no adenopathy. No jugular venous distention noted. LUNGS: Have a fair airflow with few rhonchi with decreased breath sounds on the right side posteriorly. Patient has a right-sided chest tube with minimal effusion at this point in the chest tube. HEART: Reveals PMI to be in the fifth intercostal space inside the midclavicular line. S1 and S2 are normal. No gallop or murmur is heard. ABDOMEN: Soft, nontender. Liver and spleen are not palpable. No rebound, rigidity or guarding is noted. EXTREMITIES: Reveals no cyanosis, clubbing or edema. NEUROLOGIC: Reveals higher functions to be normal. Patient is sleepy but arousable, responsive to verbal command, and able to communicate with me, talk to me and her son. GENITOURINARY: Deferred. RECTAL: Deferred. MEDICATIONS: Patient's medications were reviewed. She is on Dilaudid 1 mg IV every 6 hours p.r.n. for severe pain, DuoNeb every 2 hours p.r.n. every 6 hours, fentanyl patch 12 mcg every 72 hours, lactulose 20 mg p.o. at bedtime, insulin coverage, meropenem 1 g IV every 8 hours, morphine sulfate extended release 15 mg p.o. every 12 hours, nystatin 4 mg daily, Pepcid 40 mg at bedtime, Tylenol p.r.n., Xanax 0.25 mg 3 times a day p.r.n., also Xanax 0.25 mg twice a day, Zofran on the p.r.n. basis. LABORATORY DATA: Reveals a hemoglobin of 9.3, hematocrit of 30.6, white count of 9.4, platelet count is 83. Sodium is 138, K is 2.3, chloride is 103, bicarbonate 27, BUN is 11, creatinine is 0.4, glucose is 137, calcium is 7.9. Total bilirubin is 2.3, AST is 170, ALT is 65, alkaline phosphatase is 684. Albumin is 2.6. Procalcitonin is 3.61. Blood cultures and urine cultures have been negative at this time. ASSESSMENT, NOTES AND PLAN: The patient has extensive small cell cancer of the lung with metastases to the lung, liver and bone, retroperitoneal adenopathy which is stable, right pleural effusion requiring chest tube, chronic obstructive lung disease, depression, anxiety disorder, chronic pain related to underlying malignancy, mildly elevated liver enzymes related to multiple factors. Patient's case was discussed at length with the patient and her son, Usman, who is the power of surgical rn at this time. All questions were answered to the best of my ability. Patient is going to have humidified O2 added along with saliva substitute to the mouth, nasal saline two sprays each nostril every 2 hours, petroleum jelly to the lips p.r.n. Adjust the pain medicines to control the pain. Hopefully, plan is to take out the chest tube tomorrow. Her son is requesting adjusting the pain medicines and initiation of intravenous nutrition if feasible. I told her once the chest tube is out and the pain is controlled, we will reassess the patient and we will plan starting her on at least IV alimentation, peripherally evaluating for the patient's pain status and pleural effusion to improve. Blood work for a.m. has been requested. We will follow the patient carefully with you and make appropriate recommendations. Time spent with the patient and her son is greater than 80 minutes, out of which more than 50% of the time was spent in [id number] contact. Patient's condition is poor. Family is understanding and cognizant of the fact that the patient has rather significant disease, even though the disease appears to be stabilized at this point in time compared to the scans done just about a month ago. Rudy Puente MD
[2018-01-09] MEDS: Saliva Substitute 44.3 ML PO SCH ×6 (05:41→21:28)
[2018-01-09] MEDS: Meropenem IV 1 gm in NS 50 ML IVPB SCH (05:42)
[2018-01-09] MEDS: HYDROmorphone 1 mg/ml ISec IVP PRN ×2 (08:29→12:35)
[2018-01-09 08:39] LABS: HEMOGLOBIN 9.7 g/dL (12.0-16.0); MEAN CELL VOLUME 104.7 fl (80.0-105.0); MEAN CORPUSCULAR HEMOGLOBIN 32.9 pg (25.0-35.0); MEAN CORPUSCULAR HGB CONC 31.4 g/dl (31.0-37.0); MEAN PLATELET VOLUME 9.6 fl (7.0-11.0); RBC 2.95 10^6/uL (3.5-6.1); RED CELL DISTRIBUTION WIDTH 22.7 % (11.5-14.5); WHITE BLOOD COUNT 10.5 10^3/ul (4.5-11.0)
[2018-01-09 09:00] LABS: ALB/GLOB RATIO 0.8 (1.1-1.8); ALBUMIN 2.5 g/dL (3.0-4.8); ALT/SGPT 83 U/L (7-56); AST/SGOT 222 U/L (14-36); BLOOD UREA NITROGEN 13 mg/dL (7-21); GFR NON-AFRICAN AMERICAN > 60
[2018-01-09] MEDS: Nystatin 100,000 Units/ml Oral Susp 5 ml UD PO SCH ×4 (09:47→21:19)
--- NOTE | 2018-01-09 11:15 | US ---
PROCEDURE: Ultrasound guided right chest tube placement CLINICAL HISTORY: Metastatic lung CA. Right pleural effusion with shortness of breath. Needs chest tube PHYSICIAN(S): Lars Alvarado MD. TECHNIQUE: The relative risks and indications of the procedure were explained to the patient and consent obtained. The patient was placed in a sitting position on the stretcher and sonography of the right chest performed. This revealed a moderate sized right pleural effusion. A right posterior lateral approach was selected the area prepped and draped usual sterile fashion. 1 percent xylocaine was used to anesthetize skin soft tissues. An 18 gauge needle was advanced to the right pleural space and francisco javier fluid aspirated. 0.035 guidewire was coiled in the right pleural cavity. Sequential dilatation was performed with subsequent placement of 12 Romanian right pigtail chest tube. The catheter was secured and placed to 30 cm h2O low continuous suction. The patient tolerated the procedure well. IMPRESSION: 1. Ultrasound guided right chest tube placement.
--- NOTE | 2018-01-09 11:34 | CP.PCM.PN ---
Subjective - Date & Time of Evaluation Date of Evaluation: 01/09/18 Time of Evaluation: 11:28 - Subjective Subjective: Heme/Onc Progress Note for Dr. Puente -- Terell Lam DO PGY2 Patient seen and examined at bedside. No acute overnight events. Patient states that her pain is 8 out of 10 today. Her pain medicine regime was adjusted. Patient states that her appetite is poor and was advised to drink Lucerna. Patient denies SOB, n/v/d, fever, chills, VASQUES, or dizziness. Objective - Vital Signs/Intake and Output Vital Signs (last 24 hours): Temp Pulse Resp BP Pulse Ox 98 F 101 H 16 113/65 94 L 01/09/18 08:17 01/09/18 08:17 01/09/18 08:17 01/09/18 08:17 01/09/18 11:12 Intake and Output: 01/09/18 01/09/18 06:59 18:59 Intake Total 1090 Balance 1090 - Medications Medications: Current Medications Acetaminophen (Tylenol 325mg Tab) 650 mg PO Q6H PRN PRN Reason: Fever >100.4 F Albuterol/Ipratropium (Duoneb 3 Mg/0.5 Mg (3 Ml) Ud) 3 ml IH [id number] [facility] Last Admin: 01/09/18 07:47 Dose: 3 ml Albuterol/Ipratropium (Duoneb 3 Mg/0.5 Mg (3 Ml) Ud) 3 ml IH Q2H PRN PRN Reason: Shortness of Breath Alprazolam (Xanax) 0.25 mg PO TID PRN; Protocol PRN Reason: Anxiety Stop: 01/10/18 19:15 Last Admin: 01/08/18 22:34 Dose: 0.25 mg Alprazolam (Xanax) 0.25 mg PO BID [facility]IMMY PRN Reason: Protocol Stop: 01/11/18 10:01 Last Admin: 01/09/18 09:48 Dose: 0.25 mg Famotidine (Pepcid) 40 mg PO HS [facility] Last Admin: 01/08/18 22:36 Dose: 40 mg Fentanyl (Duragesic) 1 patch TD Q72 [facility] Last Admin: 01/09/18 09:38 Dose: 1 patch Hydromorphone HCl (Dilaudid) 1 mg IVP Q4H PRN PRN Reason: Severe pain Last Admin: 01/09/18 08:29 Dose: 1 mg Multivitamins/Vitamin C 10 ml/ (Famotidine 20 mg/ Amino Acids) 1,012 mls @ 42 mls/hr IV .Q24H [facility] Stop: 01/12/18 17:59 Fat Emulsion Intravenous (Intralipid 20%) 250 mls @ 21 mls/hr IV MWF@1800 [facility] Stop: 01/12/18 17:59 Insulin Human Regular (Humulin R Low) 0 units SC ACHS [facility] PRN Reason: Protocol Last Admin: 01/09/18 09:42 Dose: 2 unit Lactulose (Enulose) 20 gm PO HS [facility] Last Admin: 01/09/18 02:31 Dose: Not Given Morphine Sulfate (Morphine Extended Release Tab) 15 mg PO Q12 [facility] Last Admin: 01/08/18 22:34 Dose: 15 mg Nystatin (Nystatin Oral Susp) 5 ml PO QID [facility] Last Admin: 01/09/18 09:47 Dose: 5 ml Ondansetron HCl (Zofran Inj) 4 mg IVP Q6H PRN PRN Reason: Nausea/Vomiting Saliva Substitute (Saliva Substitute) 1 ml PO Q4 [facility] Last Admin: 01/09/18 09:52 Dose: 1 ml Sodium Chloride ([place] Nasal [place]) 1 ml NS Q3 [facility] Last Admin: 01/09/18 09:52 Dose: 1 spr - Labs Labs: 01/09/18 08:30 01/09/18 08:30 PT 13.8 SECONDS (9.4-12.5) H 01/03/18 16:45 INR 1.21 01/03/18 16:45 APTT 21.2 Seconds (25.1-36.5) L 01/03/18 16:45 - Constitutional Appears: No Acute Distress, Cachectic, Chronically Ill - Head Exam Head Exam: ATRAUMATIC, NORMOCEPHALIC Additional comments: alopecia - Eye Exam Eye Exam: Normal appearance - ENT Exam ENT Exam: Mucous Membranes Moist - Neck Exam Neck Exam: Normal Inspection - Respiratory Exam Respiratory Exam: Decreased Breath Sounds. absent: Rales, Rhonchi, Wheezes Additional comments: right chest tube in place, no signs of erythema or discharge - Cardiovascular Exam Cardiovascular Exam: RRR, +S1, +S2. absent: Gallop, Rubs, Murmur - GI/Abdominal Exam GI & Abdominal Exam: Soft. 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 Patient was discharged [facility]. However, she was found to have AMS and was sent to [facility] [place]. In the ED, CT scan showed slight 1 mm expansion of the previous SDH, which has since stabilized. Right pleural effusion was found on imaging, ID is consulted and will r/o HCAP. Chest tube was placed for right pleural effusion. Plan: - PPN ordered - IR to re-eval Chest tube for possible removal - Pain regime adjusted to IV dilaudid and PO morphine - Abdominal ultrasound redemonstrated multiple liver mets with largest being 10 cm - H/H stable, will continue to monitor - Maintain platelets > 50 - Received 2 units of platelets overall - Platelet 64 today, will continue to monitor - Will consider maintenance chemotherapy - Off abx per ID - Further recommendations per ID, IR, and primary Case reviewed and discussed with attending. Terell Lam, DO PGY2
[2018-01-09] MEDS: Morphine 15 mg SR Tab PO SCH ×2 (11:56→21:18)
--- NOTE | 2018-01-09 12:53 | PN ---
DATE: 01/09/2018 SUBJECTIVE: The patient is 72 years old, seen and examined. Still has back, right upper quadrant and right lower chest pain. She has chest tube in, draining straw-colored fluid. No blood in the drainage. Complained of pain when she moves a little. Scanty cough. Poor oral intake. PHYSICAL EXAMINATION: VITAL SIGNS: She is afebrile, pulse 101, respirations 16, blood pressure 113/65. LUNGS: She has decreased breath sound at bases. HEART: S1 and S2 audible. ABDOMEN: Soft. Nontender. No rebound. No guarding. NEUROLOGICAL: The patient is awake and alert, able to communicate. EXTREMITIES: Bilateral legs, she has bruises. She has difficulty moving her lower extremity and difficulty getting out of bed. LABORATORY EXAM: WBC is 10.5, hemoglobin 9.7, hematocrit 30.9, platelets 64. Chemistry: Sodium 136, potassium 3.8, chloride 103, CO2 of 24, BUN 13, creatinine 0.4, blood sugar of 189, total bili is 2.9, AST 222, ALT 83, alk phos is 780. ASSESSMENT: 1. Metastatic small cell carcinoma of the lung. 2. Right pleural effusion, status post chest tube insertion. 3. Lower back pain secondary to metastasis. 4. Poor oral intake. 5. Deconditioning and difficulty walking. 6. Pancytopenia. 7. History of hypertension. 8. Noninsulin-dependent diabetes. PLAN: Currently, the patient is off of doxycycline. She is on meropenem. We will continue nebulizer treatment. Pain medicine is adjusted by Dr. Puente. The patient is still on small dose of fentanyl patch. She is being started on PPN. She is on Dilaudid 1 mg every 4. We will reevaluate the patient in the a.m. Fortino Cain MD
[2018-01-09] MEDS ORDERED: Fat Emulsion 20% IV 250 ML IV SCH (18:00)
--- NOTE | 2018-01-09 21:59 | PN ---
DATE: 01/09/2018 PULMONARY PROGRESS NOTE REFERRING PHYSICIAN: Fortino Cain MD SUBJECTIVE: The patient is lying in the bed, head at 45 degrees, sleepy, arousable, still has some dry mouth. No cough, no sputum production, no nausea, no vomiting, no diarrhea. No leg pain or leg swelling. PHYSICAL EXAMINATION GENERAL: In no acute distress. VITAL SIGNS: Temperature is 98, heart rate is 88, respiratory rate is 20, blood pressure 120/66, pulse ox 95% on nasal cannula. HEENT: Dry mucous membranes. Small oral cavity. NECK: Supple. No JVD. LUNGS: Decreased breath sounds at the bases. HEART: S1 and S2. ABDOMEN: Soft, nontender. No organomegaly. EXTREMITIES: There is no edema. NEUROLOGICAL: Sleepy, arousable. Follows simple commands. MEDICATIONS: She is on Dilaudid 1 mg every 4 hours p.r.n. for severe pain, DuoNeb every 12 hours p.r.n. and every 6 hours [id number], Duragesic patch every 72 hours, lactulose 20 g at bedtime, insulin coverage, getting Intralipid 21 mL per hour, also getting multivitamins daily, nystatin oral suspension four times a day, nasal saline 1 spray each nostril every 3 hours, Pepcid 40 mg at bedtime, artificial saliva to mouth every 4 hours, Tylenol p.r.n. basis, Xanax 0.25 mg three times a day, also getting Zofran p.r.n. basis. LABORATORY DATA: Shows hemoglobin 9.7, hematocrit 30.9, WBC 10.5, platelet count is 64. Sodium 136, potassium 3.9, chloride 103, bicarbonate 24, BUN 13, creatinine 0.4, glucose 168, calcium is 8, phosphorous 2.8, magnesium of 1.9, AST 222, ALT 83, alkaline phosphatase is 780, albumin is 2.5. Microbiology: Blood culture, urine culture and nares culture are unremarkable. IMPRESSION AND PLAN: Small cell lung cancer with extensive disease involving lungs, liver and spine, and retroperitoneal lymphadenopathy, pleural effusion requiring chest tube, chronic obstructive lung disease, depression, anxiety disorder, chronic pain syndrome. Pulmonary point of view, doing okay. Keep head at 45 degree. Aspiration precaution. Continue supplement oxygen, bronchodilator, pain management, gastric prophylaxis. Overall, poor prognosis. Thank you and we will follow with you. Robert Eastman MD [facility] # [id number]
[2018-01-10] MEDS: Albuterol-Ipratrop 3 mg / 0.5 (3 ml) UD IH SCH ×4 (01:26→19:39)
[2018-01-10] MEDS: Saliva Substitute 44.3 ML PO SCH ×3 (02:22→20:29)
[2018-01-10] MEDS: Insulin Reg-LOW-Coverage SC SCH ×4 (09:03→21:29)
[2018-01-10] MEDS: Morphine 15 mg SR Tab PO SCH ×2 (09:04→21:31)
[2018-01-10] MEDS: Nystatin 100,000 Units/ml Oral Susp 5 ml UD PO SCH ×4 (09:05→21:32)
[2018-01-10 09:19] LABS: BASO # 0.04 K/mm3 (0.0-2.0); BASO % 0.3 % (0.0-3.0); GRAN # 9.68 (1.4-6.5); GRAN % 82.1 % (50.0-68.0); HEMOGLOBIN 9.8 g/dL (12.0-16.0); LYMPH # 1.6 (1.2-3.4); LYMPH % 13.5 % (22.0-35.0); MEAN CELL VOLUME 105.1 fl (80.0-105.0); MEAN CORPUSCULAR HEMOGLOBIN 33.3 pg (25.0-35.0); MEAN CORPUSCULAR HGB CONC 31.7 g/dl (31.0-37.0); MEAN PLATELET VOLUME 10.6 fl (7.0-11.0); MONO # 0.5 (0.1-0.6); MONO % 4.1 % (1.0-6.0); RBC 2.94 10^6/uL (3.5-6.1); RED CELL DISTRIBUTION WIDTH 22.4 % (11.5-14.5); WHITE BLOOD COUNT 11.8 10^3/ul (4.5-11.0)
[2018-01-10 09:30] LABS: ALB/GLOB RATIO 0.9 (1.1-1.8); ALBUMIN 2.6 g/dL (3.0-4.8); ALT/SGPT 92 U/L (7-56); AST/SGOT 305 U/L (14-36); BLOOD UREA NITROGEN 16 mg/dL (7-21); CALCIUM 8.4 mg/dL (8.4-10.5); GFR NON-AFRICAN AMERICAN > 60
--- NOTE | 2018-01-10 11:32 | RAD ---
Date of service: 01/10/2018 HISTORY: R/O pleural effusion COMPARISON: 10/06/2017 FINDINGS: LUNGS: No active pulmonary disease. PLEURA: No significant pleural effusion identified, no pneumothorax apparent. Right-sided chest tube. No pneumothorax CARDIOVASCULAR: Mild cardiomegaly OSSEOUS STRUCTURES: No significant abnormalities. VISUALIZED UPPER ABDOMEN: Normal. OTHER FINDINGS: Right-sided Port-A-Cath IMPRESSION: No active disease.
--- NOTE | 2018-01-10 12:36 | PN ---
DATE: 01/10/2018 SUBJECTIVE: The patient is 72 years old, seen and examined. Seems to be confused. Complained of pain in the back. Eating Jell-O. Somewhat confused, though. PHYSICAL EXAMINATION: VITAL SIGNS: She is afebrile, pulse 105, respirations 20, blood pressure 117/73. LUNGS: Bilateral fair airflow in the upper lung region. Decreased at bases. Right more than the left. HEART: S1 and S2 audible. ABDOMEN: Soft. Nontender. No rebound. No guarding. NEUROLOGICAL: The patient is sleepy, but arousable. Answers simple question. Has generalized weakness. EXTREMITIES: Bilateral legs, bruises in different stages of healing. LABORATORY EXAM: WBC is 11.8, hemoglobin 9.8, hematocrit 30.9, platelet of 53. Chemistry: Sodium 131, potassium 4.5, chloride 98, CO2 of 21, BUN 16, creatinine 0.4, blood sugar 278, AST 305, ALT 92, alk phos is 711. Blood culture, urine cultures were negative. X-ray chest that was done today shows no active disease. She still has chest tube draining straw-color scanty fluid. ASSESSMENT: 1. Metastatic small cell carcinoma of the lung. 2. Bony metastasis. 3. Abnormal liver function test secondary to metastasis. 4. Right pleural effusion, status post thoracentesis. She still has chest tube. 5. Anemia. 6. Thrombocytopenia. 7. Poor oral intake and weight loss. PLAN: Dr. Puente discussed with the patient's son. The patient has been started on PPN because of her poor oral intake. They are planning for hospice care closer to his place. We will follow up her blood work intermittently. The patient defers ambulation, states her pain gets worse when she even change in the bed. We will discuss her situation with other consultants. Overall prognosis is . Fortino Cain MD
--- NOTE | 2018-01-10 13:22 | CP.PCM.PN ---
Subjective - Date & Time of Evaluation Date of Evaluation: 01/10/18 Time of Evaluation: 13:19 - Subjective Subjective: Heme/Onc Progress Note for Dr. Puente -- Terell Lam DO PGY2 Patient seen and examined at bedside. No acute overnight events. Patient reports 10/10 generalized pain, given PO pain and anxiety meds prior to exam. Patient denies SOB, n/v/d, abdominal pain, fever, chills, VASQUES, or dizziness. Objective - Vital Signs/Intake and Output Vital Signs (last 24 hours): Temp Pulse Resp BP Pulse Ox 97.8 F 105 H 20 117/73 96 01/10/18 08:05 01/10/18 08:05 01/10/18 08:05 01/10/18 08:05 01/10/18 08:05 Intake and Output: 01/10/18 01/10/18 06:59 18:59 Intake Total 360 Balance 360 - Medications Medications: Current Medications Acetaminophen (Tylenol 325mg Tab) 650 mg PO Q6H PRN PRN Reason: Fever >100.4 F Albuterol/Ipratropium (Duoneb 3 Mg/0.5 Mg (3 Ml) Ud) 3 ml IH [id number] [facility] Last Admin: 01/10/18 07:36 Dose: 3 ml Albuterol/Ipratropium (Duoneb 3 Mg/0.5 Mg (3 Ml) Ud) 3 ml IH Q2H PRN PRN Reason: Shortness of Breath Alprazolam (Xanax) 0.25 mg PO TID PRN; Protocol PRN Reason: Anxiety Stop: 01/10/18 19:15 Last Admin: 01/10/18 12:47 Dose: 0.25 mg Alprazolam (Xanax) 0.25 mg PO BID [facility] PRN Reason: Protocol Stop: 01/11/18 10:01 Last Admin: 01/10/18 09:06 Dose: 0.25 mg Famotidine (Pepcid) 40 mg PO HS [facility] Last Admin: 01/09/18 21:18 Dose: 40 mg Fentanyl (Duragesic) 1 patch TD Q72 [facility] Last Admin: 01/09/18 09:38 Dose: 1 patch Hydromorphone HCl (Dilaudid) 1 mg IVP Q4H PRN PRN Reason: Severe pain Last Admin: 01/09/18 12:35 Dose: 1 mg Multivitamins/Vitamin C 10 ml/ (Famotidine 20 mg/ Amino Acids) 1,012 mls @ 42 mls/hr IV .Q24H [facility] Stop: 01/12/18 17:59 Last Admin: 01/09/18 17:43 Dose: 42 mls/hr Fat Emulsion Intravenous (Intralipid 20%) 250 mls @ 21 mls/hr IV MWF@1800 [facility] Stop: 01/12/18 17:59 Last Admin: 01/09/18 17:43 Dose: 21 mls/hr Insulin Human Regular (Humulin R Low) 0 units SC ACHS [facility] PRN Reason: Protocol Last Admin: 01/10/18 12:38 Dose: 3 unit Lactulose (Enulose) 20 gm PO HS [facility] Last Admin: 01/09/18 21:27 Dose: Not Given Morphine Sulfate (Morphine Extended Release Tab) 15 mg PO Q12 [facility] Last Admin: 01/10/18 09:04 Dose: 15 mg Nystatin (Nystatin Oral Susp) 5 ml PO QID [facility] Last Admin: 01/10/18 13:12 Dose: 5 ml Ondansetron HCl (Zofran Inj) 4 mg IVP Q6H PRN PRN Reason: Nausea/Vomiting Saliva Substitute (Saliva Substitute) 1 ml PO Q4 [facility] Last Admin: 01/10/18 11:01 Dose: Not Given Sodium Chloride ([place] Nasal [place]) 1 ml NS Q3 [facility] Last Admin: 01/10/18 11:02 Dose: Not Given - Labs Labs: 01/10/18 08:58 01/10/18 08:58 PT 13.8 SECONDS (9.4-12.5) H 01/03/18 16:45 INR 1.21 01/03/18 16:45 APTT 21.2 Seconds (25.1-36.5) L 01/03/18 16:45 - Constitutional Appears: Chronically Ill - Head Exam Additional comments: alopecia - Eye Exam Eye Exam: Normal appearance Pupil Exam: NORMAL ACCOMODATION - ENT Exam ENT Exam: Mucous Membranes Moist - Neck Exam Neck Exam: Normal Inspection - Respiratory Exam Respiratory Exam: Clear to Ausculation Bilateral. absent: Rales, Rhonchi, Wheezes - Cardiovascular Exam Cardiovascular Exam: RRR, +S1, +S2. absent: Gallop, Rubs, Murmur - GI/Abdominal Exam GI & Abdominal Exam: Soft. absent: Distended, Guarding, Tenderness, Rebound - Extremities Exam Extremities Exam: Normal Capillary Refill. absent: Pedal Edema, Tenderness Additional comments: resting tremor - Back Exam Back Exam: NORMAL INSPECTION - Neurological Exam Neurological Exam: Alert, Awake - Psychiatric Exam Psychiatric exam: Flat Affect - Skin Skin Exam: Dry, Intact, Normal Color, Warm Assessment and Plan - Assessment and Plan (Free Text) Assessment: 72 year old female with a past medical history significant for Stage IV metastatic small cell lung cancer with mets to the spine, liver, retroperitoneal nodes; COPD, HTN, DM, tobacco abuse, GERD, and insomnia who admitted recently for thin left temporal subdural hematoma. Patient was discharged [facility]. However, she was found to have AMS and was sent to [facility]. In the ED, CT scan showed slight 1 mm expansion of the previous SDH, which has since stabilized. Right pleural effusion was found on imaging has since resolved s/p chest tube insertion. Chest tube removed today. Plan: - Cont PPN - Chest tube removed today per IR - Cont IV dilaudid and PO morphine prn for pain - Abdominal ultrasound redemonstrated multiple liver mets with largest being 10 cm - H/H stable, will continue to monitor - Maintain platelets > 50 - Received 2 units of platelets overall - Platelet 53 today, will continue to monitor - Will consider maintenance chemotherapy - Off abx per ID - Further recommendations per ID, IR, and primary Case reviewed and discussed with attending. Terell Lam, DO PGY2
[2018-01-10] MEDS ORDERED: Morphine 2 mg/ml ISec IVP PRN (15:44)
[2018-01-10] MEDS ORDERED: Morphine 15 mg Immediate Release Tab PO SCH (15:45)
[2018-01-10] MEDS ORDERED: Morphine 15 mg Immediate Release Tab PO PRN (16:10)
[2018-01-10 16:52] VITALS: TEMP 97.6
--- NOTE | 2018-01-10 20:27 | PN ---
DATE: 01/10/2018 SUBJECTIVE: The patient is in bed, in no acute distress, nontoxic. PHYSICAL EXAMINATION: VITAL SIGNS: Temperature is 97, blood pressure is 110/70, respiratory rate 20, heart rate of 106. HEENT: Unremarkable. NECK: Supple. LUNGS: Decreased breath sounds. HEART: Normal S1, S2. ABDOMEN: Soft, nontender. LABORATORY EXAMINATION: Reveals a white count of 11,800, hemoglobin of 9. BUN of 16, creatinine of 0.4. Urinalysis is noted and urine for Legionella antigen is negative. Microbiology reveals the blood cultures are negative. Nares MRSA not detected. Urine culture has multiple species. ASSESSMENT AND PLAN: This is a 72-year-old female who was seen earlier this morning, who was admitted with right-sided healthcare-associated pneumonia, received meropenem in a patient with diabetes, hypertension, and day #6 of meropenem. Currently, review of the orders reveals the patient is off antibiotics, afebrile with a procalcitonin which was elevated initially and we will follow with you. The patient is at very high risk of developing nosocomial infections. Jorge Luis Hernandez MD
--- NOTE | 2018-01-10 22:03 | PN ---
DATE: 01/10/2018 PULMONARY PROGRESS NOTE REFERRING PHYSICIAN: Dr. Cain SUBJECTIVE: She is lying in the bed, sleepy, arousable. Chest tube has been removed. Still has some dry mouth. No chest pain, no nausea, no vomiting, no diarrhea, no leg swelling. OBJECTIVE: General: In no acute distress. VITAL SIGNS: Temp is 98, heart rate is 106, respiratory rate is 20, blood pressure 110/70, pulse 77% on 2 liters nasal cannula. HEENT: Moist mucous membrane. Small oral cavity. NECK: Supple. No JVD. LUNGS: Have a decreased breath sounds on the bases with few rhonchi. HEART: S1 and S2. ABDOMEN: Soft, nontender. No organomegaly. EXTREMITIES: No edema. NEUROLOGIC: Awake and alert, follows simple command. MEDICATIONS: She is on DuoNeb every 2 hours p.r.n. and every 6 hours [id number], fentanyl one patch every 72 hours, lactulose 20 g at bedtime, insulin coverage, Intralipid 21 mL per hour, morphine 2 mg every 3 hours p.r.n., morphine extended release 50 mg every 12 hours, morphine immediate release 50 mg every 4 hours p.r.n., multivitamins daily, also on nystatin oral suspension four times a day, nasal saline every 3 hours, Pepcid 40 mg daily, saliva substitute every 4 hours, Tylenol p.r.n., Xanax 0.25 mg twice a day, Zofran p.r.n. basis. LABORATORY DATA: Shows hemoglobin 9.8, hematocrit 30.9, WBC 11.8, platelet is 53. Sodium 131, potassium 4.5, chloride 98, bicarbonate 21, BUN 16, creatinine 0.4, glucose 278, calcium 8.4, total bili 3.8, AST 305, ALT 92, alk phos is 711. Albumin is 2.6. Microbiology, blood culture, urine culture and nares culture are unremarkable. Chest x-ray done today, shows no active pulmonary disease, mild cardiomegaly. IMPRESSION AND PLAN: Small cell lung cancer with extensive disease involving lung, liver and spine, retroperitoneal lymphadenopathy, pleural effusion, requiring chest tube, chest tube had been removed, normal pleural effusion, chronic obstructive lung disease, depression, anxiety disorder, chronic pain syndrome. Pulmonary point of view, she is doing well. Responded well to chemo and radiation therapy. On x-ray, there is no recognizable any lesions but there are new lesions and adenopathy in the retroperitoneal area. Pulmonary point of view, keep head at 45 degrees. Continue bronchodilator, pain management. Gastric prophylaxis. Deep venous thrombosis prophylaxis. Thank you and we will follow with you. Robert Eastman MD
[2018-01-11] MEDS: Albuterol-Ipratrop 3 mg / 0.5 (3 ml) UD IH SCH ×2 (01:23→07:32)
[2018-01-11] MEDS: Saliva Substitute 44.3 ML PO SCH ×3 (03:05→10:26)
[2018-01-11 06:26] LABS: BASO # 0.08 K/mm3 (0.0-2.0); BASO % 0.5 % (0.0-3.0); EOS % 0.1 % (1.5-5.0); GRAN # 11.78 (1.4-6.5); GRAN % 74.9 % (50.0-68.0); HEMOGLOBIN 10.5 g/dL (12.0-16.0); LYMPH # 3.2 (1.2-3.4); LYMPH % 20.1 % (22.0-35.0); MEAN CELL VOLUME 105.3 fl (80.0-105.0); MEAN CORPUSCULAR HEMOGLOBIN 32.9 pg (25.0-35.0); MEAN CORPUSCULAR HGB CONC 31.3 g/dl (31.0-37.0); MONO # 0.7 (0.1-0.6); MONO % 4.4 % (1.0-6.0); RBC 3.19 10^6/uL (3.5-6.1); RED CELL DISTRIBUTION WIDTH 22.4 % (11.5-14.5); WHITE BLOOD COUNT 15.7 10^3/ul (4.5-11.0)
[2018-01-11 06:31] LABS: PLATELET COUNT 38 10^3/uL (120.0-450.0)
[2018-01-11 07:01] LABS: ALB/GLOB RATIO 0.9 (1.1-1.8); ALBUMIN 2.7 g/dL (3.0-4.8); ALT/SGPT 219 U/L (7-56); AST/SGOT 1450 U/L (14-36); BLOOD UREA NITROGEN 19 mg/dL (7-21); CALCIUM 8.9 mg/dL (8.4-10.5); GFR NON-AFRICAN AMERICAN > 60
[2018-01-11] MEDS ORDERED: Sod Polystyrene Sulf 15 gm/60 ml Susp PO STA (07:45)
[2018-01-11] MEDS ORDERED: Insulin Regular 1 UNITS/0.01 ML ML SC STA (07:46)
[2018-01-11] MEDS ORDERED: Dextrose 50% SYRINGE Inj (50 ml) IVP ONE (07:46)
[2018-01-11] MEDS ORDERED: Dextrose 50% SYRINGE Inj (50 ml) IVP STA (07:57)
[2018-01-11 08:33] LABS: ALB/GLOB RATIO 0.9 (1.1-1.8); ALBUMIN 2.9 g/dL (3.0-4.8); ALT/SGPT 275 U/L (7-56); AST/SGOT 1904 U/L (14-36); BLOOD UREA NITROGEN 19 mg/dL (7-21); CALCIUM 9.3 mg/dL (8.4-10.5); GFR NON-AFRICAN AMERICAN > 60
[2018-01-11] MEDS ORDERED: Insulin Regular 1 UNITS/0.01 ML ML IVP STA (08:39)
[2018-01-11] MEDS: Insulin Reg-LOW-Coverage SC SCH (08:45)
[2018-01-11] MEDS ORDERED: Naloxone 0.4 mg/ml Inj (Adult) IVP STA (09:03)
[2018-01-11] MEDS ORDERED: Sod Polystyrene Sulf 15 gm/60 ml Susp PR ONE (09:03)
[2018-01-11] MEDS ORDERED: Sodium Chloride 0.9% 1,000 ML IV SCH ×3 (09:15→12:50)
[2018-01-11 09:20] LABS: ARTERIAL BLOOD GAS O2 SAT 97.8 % (95-98); ARTERIAL BLOOD GAS PH 7.37 (7.35-7.45); ARTERIAL BLOOD GAS TCO2 8.5 mmol.L (22-28)
[2018-01-11] MEDS ORDERED: Sodium Bicarbonate (8.4%) 50 Meq Syringe IVP ONE (09:20)
[2018-01-11 09:21] LABS: ARTERIAL BLOOD GAS HCO3 8.1 mmol/L (21-28); ARTERIAL BLOOD GAS PCO2 14 mm/Hg (35-45)
[2018-01-11 09:30] LABS: TROPONIN I 0.05 ng/mL
--- NOTE | 2018-01-11 09:33 | RAD ---
Date of service: 01/11/2018 HISTORY: cp COMPARISON: 01/10/2018 FINDINGS: LUNGS: No active pulmonary disease. PLEURA: No significant pleural effusion identified, no pneumothorax apparent. CARDIOVASCULAR: Normal. OSSEOUS STRUCTURES: No significant abnormalities. VISUALIZED UPPER ABDOMEN: Normal. OTHER FINDINGS: None. IMPRESSION: No active disease.
[2018-01-11] MEDS ORDERED: Piperacillin/Tazobact 3.375 gm 100 ML IVPB SCH ×3 (09:37→09:46)
[2018-01-11 09:41] LABS: CK MB% 1.1 % (2.5-3.0); CK-MB 7.5 ng/mL (0.0-3.6)
[2018-01-11] MEDS ORDERED: Vancomycin 1gm in NS 250ml 1 GM/250 ML BAG IVPB SCH (09:45)
[2018-01-11 10:26] LABS: URIC ACID 12.1 mg/dL (2.5-6.2)
[2018-01-11] MEDS: Nystatin 100,000 Units/ml Oral Susp 5 ml UD PO SCH (10:26)
[2018-01-11] MEDS: Morphine 15 mg SR Tab PO SCH (10:28)
--- NOTE | 2018-01-11 10:51 | CP.PCM.PN ---
Subjective - Date & Time of Evaluation Date of Evaluation: 01/11/18 Time of Evaluation: 09:45 - Subjective Subjective: Patient was noted by nurse to be lethargic this morning. Currently tachypneic, lethargic and not responding to commands, tachycardic. Objective - Vital Signs/Intake and Output Vital Signs (last 24 hours): Temp Pulse Resp BP Pulse Ox 97.6 F 110 H 24 120/63 97 01/11/18 06:00 01/11/18 06:00 01/11/18 06:00 01/11/18 06:00 01/11/18 06:00 Intake and Output: 01/11/18 01/11/18 06:59 18:59 Intake Total 964 Balance 964 - Medications Medications: Current Medications Acetaminophen (Tylenol 325mg Tab) 650 mg PO Q6H PRN PRN Reason: Fever >100.4 F Albuterol/Ipratropium (Duoneb 3 Mg/0.5 Mg (3 Ml) Ud) 3 ml IH [id number] [facility] Last Admin: 01/11/18 07:32 Dose: Not Given Albuterol/Ipratropium (Duoneb 3 Mg/0.5 Mg (3 Ml) Ud) 3 ml IH Q2H PRN PRN Reason: Shortness of Breath Alprazolam (Xanax) 0.25 mg PO BID [facility] PRN Reason: Protocol Stop: 01/11/18 10:01 Last Admin: 01/10/18 18:33 Dose: 0.25 mg Famotidine (Pepcid) 40 mg PO HS [facility] Last Admin: 01/10/18 21:32 Dose: 40 mg Fentanyl (Duragesic) 1 patch TD Q72 [facility] Last Admin: 01/09/18 09:38 Dose: 1 patch Multivitamins/Vitamin C 10 ml/ (Famotidine 20 mg/ Amino Acids) 1,012 mls @ 42 mls/hr IV .Q24H [facility] Stop: 01/12/18 17:59 Last Admin: 01/10/18 18:38 Dose: 42 mls/hr Fat Emulsion Intravenous (Intralipid 20%) 250 mls @ 21 mls/hr IV MWF@1800 [facility] Stop: 01/12/18 17:59 Last Admin: 01/09/18 17:43 Dose: 21 mls/hr Sodium Chloride (Sodium Chloride 0.9%) 1,000 mls @ 60 mls/hr IV .[id number] [facility] Vancomycin HCl (Vancomycin 1gm) 1 gm in 250 mls @ 167 mls/hr IVPB Q12H [facility] PRN Reason: Protocol Piperacillin Sod/Tazobactam Sod (Zosyn 3.375 In Ns 100ml) 100 mls @ 200 mls/hr IVPB Q6 [facility] PRN Reason: Protocol Stop: 01/11/18 18:29 Insulin Human Regular (Humulin R Low) 0 units SC ACHS [facility] PRN Reason: Protocol Last Admin: 01/11/18 08:45 Dose: 2 unit Lactulose (Enulose) 20 gm PO HS [facility] Last Admin: 01/10/18 21:29 Dose: Not Given Morphine Sulfate (Morphine Extended Release Tab) 15 mg PO Q12 [facility] Last Admin: 01/10/18 21:31 Dose: 15 mg Morphine Sulfate (Morphine) 2 mg IVP Q3H PRN PRN Reason: Pain, severe (8-10) Morphine Sulfate (Morphine Immediate Release Tab) 15 mg PO Q4H PRN PRN Reason: For moderate pain Nystatin (Nystatin Oral Susp) 5 ml PO QID [facility] Last Admin: 01/10/18 21:32 Dose: 5 ml Ondansetron HCl (Zofran Inj) 4 mg IVP Q6H PRN PRN Reason: Nausea/Vomiting Saliva Substitute (Saliva Substitute) 1 ml PO Q4 [facility] Last Admin: 01/11/18 03:05 Dose: Not Given Sodium Chloride ([place] Nasal [place]) 1 ml NS Q3 [facility] Last Admin: 01/11/18 05:13 Dose: Not Given - Labs Labs: 01/11/18 05:30 01/11/18 07:30 PT 13.8 SECONDS (9.4-12.5) H 01/03/18 16:45 INR 1.21 01/03/18 16:45 APTT 21.2 Seconds (25.1-36.5) L 01/03/18 16:45 - Constitutional Appears: Chronically Ill, Other (tachypneic and tachycardic) - Head Exam Head Exam: NORMAL INSPECTION - Respiratory Exam Respiratory Exam: Decreased Breath Sounds Additional comments: chest wall port in place - Cardiovascular Exam Cardiovascular Exam: +S1, +S2 - GI/Abdominal Exam GI & Abdominal Exam: Soft. absent: Tenderness Assessment and Plan - Assessment and Plan (Free Text) Plan: Assessment new onset SIRS with encephalopathy, etiology to be determined, R/O sepsis from aspiration pneumonia, R/O tumor lysis syndrome, R/O intracranial bleed S/P sepsis due to right sided HCAP with pleural effusion, S/P sepsis due to transverse colon colitis history of subdural hematoma in the head history of sepsis due to right sided HCAP, S/P neutropenia history of sepsis due to right middle lobe HCAP on top of ESBL Klebsiella and Proteus UTI stage 3 decubitus ulcer history of Systemic viral illness with Influenza and acute bronchitis stage 4 lung cancer history of asymptomatic bacteriuria with VRE in the urine DM HTN depression lower back tumor obesity with BMI 30 Plan started patient on Vancomycin, Merrem and will repeat blood, urine cx, urinalysis, PCT, CXR; will need to get CT head ICU team will evaluate to see if patient needs to be brought to the ICU overall prognosis is poor discussed with medical team
[2018-01-11] MEDS ORDERED: Meropenem IV 1 gm in NS 50 ML IVPB SCH (11:00)
--- NOTE | 2018-01-11 11:03 | CT ---
Date of service: 01/11/2018 PROCEDURE: CT HEAD WITHOUT CONTRAST. HISTORY: AMS COMPARISON: 01/03/2018 TECHNIQUE: Axial computed tomography images were obtained through the head/brain without intravenous contrast. Radiation dose: Total exam DLP = 901 mGy-cm. This CT exam was performed using one or more of the following dose reduction techniques: Automated exposure control, adjustment of the mA and/or kV according to patient size, and/or use of iterative reconstruction technique. FINDINGS: HEMORRHAGE: No intracranial hemorrhage. BRAIN: There is no significant change in the appearance of the subdural and adjacent scalp masses seen bilaterally. As noted previously there is an unusual pattern of focal subdural masses or hematomas with scalp masses seen on the opposite side of the calvarium. There is no evidence of bony destruction to suggest a calvarial metastasis. VENTRICLES: Unremarkable. No hydrocephalus. CALVARIUM: Unremarkable. PARANASAL SINUSES: Unremarkable as visualized. No significant inflammatory changes. MASTOID AIR CELLS: Unremarkable as visualized. No inflammatory changes. OTHER FINDINGS: None. IMPRESSION: There is no significant change in the appearance of the subdural and adjacent scalp masses seen bilaterally. As noted previously there is an unusual pattern of focal subdural masses or hematomas with scalp masses seen on the opposite side of the calvarium. There is no evidence of bony destruction to suggest a calvarial metastasis. The brain parenchyma is normal with no acute findings
--- NOTE | 2018-01-11 11:26 | CP.PCM.CON ---
History of Present Illness - History of Present Illness History of Present Illness: Palliative consult requested by Dr Puente Reason Goals of care 72 year old female with history of metastatic lung cancer, sepsis who was admitted on 01/03/18 with AMS, weakness, shortness of breath, intractable pain and failure to thrive. Found to have large right pleural effusion and post obstructive atelectasis. She was treated with antibiotics and a chest tube was placed on 01/05/18. 1 liter of fluid was removed, cytology positive for metastatic disease. Chest tube discontinued yesterday.This morning she developed shortness of breath, AMS and shaking chills. CT of head negative for acute findings. Lactic acid 15.7, K 6.6. 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 Social History: Former smoker, no alcohol or drug use. Lives alone Family History: Non contributory Advance Care Planning: The patient had a POLST, her son Usman WILSON Review of Systems: As per HPI, intermittent mentation unable to obtain complete 12 point review Past Patient History - Infectious Disease Hx of Infectious Diseases: None - Tetanus Immunizations Tetanus Immunization: Unknown - Past Medical History & Family History Past Medical History?: Yes - Past Social History Smoking Status: Former Smoker - CARDIAC Hx Congestive Heart Failure: Yes Hx Hypertension: Yes - PULMONARY Hx Chronic Obstructive Pulmonary Disease (COPD): Yes - NEUROLOGICAL Hx Neurological Disorder: No - HEENT Hx HEENT Problems: Yes (glasses) - RENAL Hx Chronic Kidney Disease: No - ENDOCRINE/METABOLIC Hx Diabetes Mellitus Type 2: Yes - HEMATOLOGICAL/ONCOLOGICAL Hx Anemia: Yes Hx Cancer: Yes (Lung CA w/ mets to liver and bone) Hx Chemotherapy: Yes (as per patient she finished tx) Hx Metastesis: Yes - INTEGUMENTARY Hx Dermatological Problems: Yes Other/Comment: SACRAL PRESSURE ULCER stg 2 1cm x 1cm wound bed is red/pink surounded by reddish skin optifoam intact, multiple purple and red skin discolorations to both legs and arms, thick long hard toenails, radiation markings to abd and chest - MUSCULOSKELETAL/RHEUMATOLOGICAL Hx Arthritis: Yes - GASTROINTESTINAL Hx Gastrointestinal Disorders: Yes (constipation/ nausea) - GENITOURINARY/GYNECOLOGICAL Hx Urinary Tract Infection: Yes - PSYCHIATRIC Hx Anxiety: Yes Hx Depression: Yes Hx Substance Use: No - SURGICAL HISTORY Hx Appendectomy: Yes Hx Orthopedic Surgery: Yes - ANESTHESIA Hx Anesthesia Reactions: No Hx Malignant Hyperthermia: No Meds Allergies/Adverse Reactions: Allergies Allergy/AdvReac Type Severity Reaction Status Date / Time Sulfa (Sulfonamide Allergy ANAPHYLAXIS Verified 12/20/17 14:49 Antibiotics) - Medications Medications: Current Medications Acetaminophen (Tylenol 325mg Tab) 650 mg PO Q6H PRN PRN Reason: Fever >100.4 F Albuterol/Ipratropium (Duoneb 3 Mg/0.5 Mg (3 Ml) Ud) 3 ml IH [id number] [facility] Last Admin: 01/11/18 07:32 Dose: Not Given Albuterol/Ipratropium (Duoneb 3 Mg/0.5 Mg (3 Ml) Ud) 3 ml IH Q2H PRN PRN Reason: Shortness of Breath Famotidine (Pepcid) 40 mg PO HS [facility] Last Admin: 01/10/18 21:32 Dose: 40 mg Fentanyl (Duragesic) 1 patch TD Q72 [facility] Last Admin: 01/09/18 09:38 Dose: 1 patch Multivitamins/Vitamin C 10 ml/ (Famotidine 20 mg/ Amino Acids) 1,012 mls @ 42 mls/hr IV .Q24H [facility] Stop: 01/12/18 17:59 Last Admin: 01/10/18 18:38 Dose: 42 mls/hr Fat Emulsion Intravenous (Intralipid 20%) 250 mls @ 21 mls/hr IV MWF@1800 [facility] Stop: 01/12/18 17:59 Last Admin: 01/09/18 17:43 Dose: 21 mls/hr Sodium Chloride (Sodium Chloride 0.9%) 1,000 mls @ 60 mls/hr IV .[id number] [facility] Last Admin: 01/11/18 09:57 Dose: 60 mls/hr Vancomycin HCl (Vancomycin 1gm) 1 gm in 250 mls @ 167 mls/hr IVPB Q12H [facility] PRN Reason: Protocol Last Admin: 01/11/18 10:20 Dose: 167 mls/hr Meropenem (Merrem Iv 1 Gm Premix) 50 mls @ 100 mls/hr IVPB Q8 [facility] PRN Reason: Protocol Insulin Human Regular (Humulin R Low) 0 units SC ACHS [facility] PRN Reason: Protocol Last Admin: 01/11/18 08:45 Dose: 2 unit Lactulose (Enulose) 20 gm PO HS [facility] Last Admin: 01/10/18 21:29 Dose: Not Given Morphine Sulfate (Morphine Extended Release Tab) 15 mg PO Q12 [facility] Last Admin: 01/11/18 10:28 Dose: Not Given Morphine Sulfate (Morphine) 2 mg IVP Q3H PRN PRN Reason: Pain, severe (8-10) Morphine Sulfate (Morphine Immediate Release Tab) 15 mg PO Q4H PRN PRN Reason: For moderate pain Nystatin (Nystatin Oral Susp) 5 ml PO QID [facility] Last Admin: 01/11/18 10:26 Dose: Not Given Ondansetron HCl (Zofran Inj) 4 mg IVP Q6H PRN PRN Reason: Nausea/Vomiting Saliva Substitute (Saliva Substitute) 1 ml PO Q4 [facility] Last Admin: 01/11/18 10:26 Dose: Not Given Sodium Chloride ([place] Nasal [place]) 1 ml NS Q3 [facility] Last Admin: 01/11/18 10:26 Dose: Not Given Physical Exam - Constitutional Appears: Cachectic, Chronically Ill - Head Exam Additional comments: small nodules right occipital scalp - Eye Exam Eye Exam: PERRL, Scleral icterus - ENT Exam ENT Exam: Mucous Membranes Moist - Neck Exam Neck exam: Positive for: Normal Inspection - Respiratory Exam Respiratory Exam: Accessory Muscle Use, Decreased Breath Sounds, Rhonchi - Cardiovascular Exam Cardiovascular Exam: Tachycardia, +S1, +S2 - GI/Abdominal Exam GI & Abdominal Exam: Diminished Bowel Sounds, Soft Additional comments: RUQ tenderness - Extremities Exam Extremities exam: Positive for: pedal edema, pedal pulses present - Neurological Exam Neurological exam: Altered - Skin Skin Exam: Dry, Pallor Additional comments: jaundice - Additional Findings Additional findings: Palliative performance scale rating 20% Results - Vital Signs Recent Vital Signs: Last Vital Signs Temp 97.6 F 01/11/18 06:00 Pulse 110 H 01/11/18 06:00 Resp 24 01/11/18 06:00 BP 120/63 01/11/18 06:00 Pulse Ox 97 01/11/18 06:00 - Labs Result Diagrams: 01/11/18 05:30 01/11/18 11:05 Labs: Laboratory Results - last 24 hr 01/10/18 01/10/18 01/10/18 11:21 16:12 20:57 WBC RBC Hgb Hct MCV MCH MCHC RDW Plt Count Manual Plt Count MPV Gran % Lymph % (Auto) [place] % (Auto) Eos % (Auto) Baso % (Auto) Gran # Lymph # (Auto) [place] # (Auto) Eos # (Auto) Baso # (Auto) pCO2 pO2 HCO3 ABG pH ABG Total CO2 ABG O2 Saturation ABG Base Excess ABG Potassium Glucose Lactate FiO2 Sodium Potassium Chloride Carbon Dioxide Anion Gap BUN Creatinine Est GFR ( Amer) Est GFR (Non-Af Amer) POC Glucose (mg/dL) 278 H 269 H 225 H Random Glucose Lactic Acid Uric Acid Calcium Phosphorus Magnesium Total Bilirubin AST ALT Alkaline Phosphatase Ammonia Lactate Dehydrogenase Total Creatine Kinase CK-MB (CK-2) CK-MB (CK-2) % Troponin I Total Protein Albumin Globulin Albumin/Globulin Ratio Arterial Blood Potassium 01/11/18 01/11/18 01/11/18 05:30 05:30 05:30 WBC 15.7 H D RBC 3.19 L Hgb 10.5 L Hct 33.6 L MCV 105.3 H MCH 32.9 MCHC 31.3 RDW 22.4 H Plt Count 38 L* Manual Plt Count 42 L* MPV 11.0 Gran % 74.9 H Lymph % (Auto) 20.1 L [place] % (Auto) 4.4 Eos % (Auto) 0.1 L Baso % (Auto) 0.5 Gran # 11.78 H Lymph # (Auto) 3.2 [place] # (Auto) 0.7 H Eos # (Auto) 0.0 Baso # (Auto) 0.08 pCO2 pO2 HCO3 ABG pH ABG Total CO2 ABG O2 Saturation ABG Base Excess ABG Potassium Glucose Lactate FiO2 Sodium 131 L Potassium 6.1 H* D Chloride 97 L Carbon Dioxide 15 L Anion Gap 25 H BUN 19 Creatinine 0.5 L Est GFR ( Amer) > 60 Est GFR (Non-Af Amer) > 60 POC Glucose (mg/dL) Random Glucose 201 H Lactic Acid Uric Acid Calcium 8.9 Phosphorus Magnesium Total Bilirubin 6.3 H AST 1450 H ALT 219 H Alkaline Phosphatase 881 H D Ammonia Lactate Dehydrogenase Total Creatine Kinase CK-MB (CK-2) CK-MB (CK-2) % Troponin I Total Protein 5.8 Albumin 2.7 L Globulin 3.1 Albumin/Globulin Ratio 0.9 L Arterial Blood Potassium 01/11/18 01/11/18 01/11/18 07:27 07:30 09:10 WBC RBC Hgb Hct MCV MCH MCHC RDW Plt Count Manual Plt Count MPV Gran % Lymph % (Auto) [place] % (Auto) Eos % (Auto) Baso % (Auto) Gran # Lymph # (Auto) [place] # (Auto) Eos # (Auto) Baso # (Auto) pCO2 14 L* pO2 88.0 HCO3 8.1 L* ABG pH 7.37 ABG Total CO2 8.5 L ABG O2 Saturation 97.8 ABG Base Excess -14.2 L ABG Potassium 6.0 H Glucose 328 H Lactate 16.9 H* FiO2 36.0 Sodium 132 131.0 L Potassium 6.6 H* Chloride 98 98.0 Carbon Dioxide 11 L Anion Gap 30 H BUN 19 Creatinine 0.5 L Est GFR ( Amer) > 60 Est GFR (Non-Af Amer) > 60 POC Glucose (mg/dL) 218 H Random Glucose 203 H Lactic Acid Uric Acid Calcium 9.3 Phosphorus Magnesium Total Bilirubin 7.1 H AST 1904 H ALT 275 H Alkaline Phosphatase 954 H Ammonia Lactate Dehydrogenase 28292 H Total Creatine Kinase 703 H CK-MB (CK-2) 7.5 H CK-MB (CK-2) % 1.1 L Troponin I 0.05 D Total Protein 6.1 Albumin 2.9 L Globulin 3.2 Albumin/Globulin Ratio 0.9 L Arterial Blood Potassium 6.0 H 01/11/18 01/11/18 01/11/18 09:20 09:37 09:39 WBC RBC Hgb Hct MCV MCH MCHC RDW Plt Count Manual Plt Count MPV Gran % Lymph % (Auto) [place] % (Auto) Eos % (Auto) Baso % (Auto) Gran # Lymph # (Auto) [place] # (Auto) Eos # (Auto) Baso # (Auto) pCO2 pO2 HCO3 ABG pH ABG Total CO2 ABG O2 Saturation ABG Base Excess ABG Potassium Glucose Lactate FiO2 Sodium Potassium Chloride Carbon Dioxide Anion Gap BUN Creatinine Est GFR ( Amer) Est GFR (Non-Af Amer) POC Glucose (mg/dL) 265 H Random Glucose Lactic Acid 15.7 H* Uric Acid 12.1 H Calcium Phosphorus 4.6 H Magnesium 2.6 H Total Bilirubin AST ALT Alkaline Phosphatase Ammonia Lactate Dehydrogenase Total Creatine Kinase CK-MB (CK-2) CK-MB (CK-2) % Troponin I Total Protein Albumin Globulin Albumin/Globulin Ratio Arterial Blood Potassium 01/11/18 10:11 WBC RBC Hgb Hct MCV MCH MCHC RDW Plt Count Manual Plt Count MPV Gran % Lymph % (Auto) [place] % (Auto) Eos % (Auto) Baso % (Auto) Gran # Lymph # (Auto) [place] # (Auto) Eos # (Auto) Baso # (Auto) pCO2 pO2 HCO3 ABG pH ABG Total CO2 ABG O2 Saturation ABG Base Excess ABG Potassium Glucose Lactate FiO2 Sodium Potassium Chloride Carbon Dioxide Anion Gap BUN Creatinine Est GFR ( Amer) Est GFR (Non-Af Amer) POC Glucose (mg/dL) Random Glucose Lactic Acid Uric Acid Calcium Phosphorus Magnesium Total Bilirubin AST ALT Alkaline Phosphatase Ammonia 29 Lactate Dehydrogenase Total Creatine Kinase CK-MB (CK-2) CK-MB (CK-2) % Troponin I Total Protein Albumin Globulin Albumin/Globulin Ratio Arterial Blood Potassium Assessment & Plan - Assessment and Plan (Free Text) Assessment: 72 year old female with history of metastatic NSCL cancer, sepsis who is admitted with failure to thrive, intractable pain, sepsis, weakness, failure to thrive The patient is known to me from previous admissions. She and I had discussed goals of care. She had originally initiated a POLST in which she indicted that she wanted to be intubated and have CPR. After much discursion she stated she was considering changing her mind if her condition was hopeless or irreversible The patient was transferred to the ICU with shortness of breath, sepsis. I spoke with her in the presence of respiratory therapist, Yousif Ocampo. I explained that that her condition was likely irreversible and that she was terminally ill. I asked if she wanted to be intubated or have CPR under these circumstances. She stated she did not. We again asked her this question in the presence of Dr Holland Nava. The patient indicated that she did not want chest compressions or intubation. We offered comfort measures to which she nodded yes. Patients son Usman at bedside. Discussed patient change in status to DNR/DNI. Usman in agreement with this. Usman requesting that patient placed on comfort/hospice care. Hospice services explained. Usman in agreement with transitioning to [facility] hospice services. Consents signed by family to transition to [facility] hospice services for pain and symptom management. Time spent with family in goals of care,advance care planning and end of life care 75 minutes Plan: Plan discussed with Dr Puente who is in agreement, Goals of care and end of life counseling. DNR/DNI Hospice evaluation for [facility] services> discharge and admit to Med /surg under [facility] Discontinue all lab work, imaging and aggressive medical interventions Pain management: Morphine IVP as needed, Morphine continuous [employer] 4mg/hr, will evaluate and titrate to comfort Ativan 1 mg IVP now
--- NOTE | 2018-01-11 11:29 | CP.PCM.CON ---
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 Patient also found to have large right sided pleural effusion, s/p chest tube removal yesterday. Patient then had a deterioration of mental status, with lactate 16.9, bicarb 10, K 6.6. ABG showed normal pH 37, with pCO2 14, HCO3 8.1. As per nursing staff, patient was AOx3 1.5 days ago, was able to report needs of pain medication, going to the bathroom. However overnight, patient started becoming more altered, lethargic. Code sepsis called, ICU consulted for further management. No fevers, vomiting, bloody bowel movements. + petechiae around abdominal areas, right sided port-a-cath site. No overt bleeding. 12 point ROS unable to obtain due to AMS. PMD: Dr. Puente/ Dr. Jarrett Radiology/ Oncology: Dr. Goyal Nephrology: Dr. 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 Denies ETOH, drug use. Review of Systems - Review of Systems Systems not reviewed;Unavailable: Altered Mental Status Past Patient History - Infectious Disease Hx of Infectious Diseases: None - Tetanus Immunizations Tetanus Immunization: Unknown - Past Medical History & Family History Past Medical History?: Yes - Past Social History Smoking Status: Former Smoker - CARDIAC Hx Congestive Heart Failure: Yes Hx Hypertension: Yes - PULMONARY Hx Chronic Obstructive Pulmonary Disease (COPD): Yes - NEUROLOGICAL Hx Neurological Disorder: No - HEENT Hx HEENT Problems: Yes (glasses) - RENAL Hx Chronic Kidney Disease: No - ENDOCRINE/METABOLIC Hx Diabetes Mellitus Type 2: Yes - HEMATOLOGICAL/ONCOLOGICAL Hx Anemia: Yes Hx Cancer: Yes (Lung CA w/ mets to liver and bone) Hx Chemotherapy: Yes (as per patient she finished tx) Hx Metastesis: Yes - INTEGUMENTARY Hx Dermatological Problems: Yes Other/Comment: SACRAL PRESSURE ULCER stg 2 1cm x 1cm wound bed is red/pink surounded by reddish skin optifoam intact, multiple purple and red skin discolorations to both legs and arms, thick long hard toenails, radiation markings to abd and chest - MUSCULOSKELETAL/RHEUMATOLOGICAL Hx Arthritis: Yes - GASTROINTESTINAL Hx Gastrointestinal Disorders: Yes (constipation/ nausea) - GENITOURINARY/GYNECOLOGICAL Hx Urinary Tract Infection: Yes - PSYCHIATRIC Hx Anxiety: Yes Hx Depression: Yes Hx Substance Use: No - SURGICAL HISTORY Hx Appendectomy: Yes Hx Orthopedic Surgery: Yes - ANESTHESIA Hx Anesthesia Reactions: No Hx Malignant Hyperthermia: No Meds Allergies/Adverse Reactions: Allergies Allergy/AdvReac Type Severity Reaction Status Date / Time Sulfa (Sulfonamide Allergy ANAPHYLAXIS Verified 12/20/17 14:49 Antibiotics) - Medications Medications: Current Medications Acetaminophen (Tylenol 325mg Tab) 650 mg PO Q6H PRN PRN Reason: Fever >100.4 F Albuterol/Ipratropium (Duoneb 3 Mg/0.5 Mg (3 Ml) Ud) 3 ml IH [id number] [facility] Last Admin: 01/11/18 07:32 Dose: Not Given Albuterol/Ipratropium (Duoneb 3 Mg/0.5 Mg (3 Ml) Ud) 3 ml IH Q2H PRN PRN Reason: Shortness of Breath Famotidine (Pepcid) 40 mg PO HS [facility] Last Admin: 01/10/18 21:32 Dose: 40 mg Fentanyl (Duragesic) 1 patch TD Q72 [facility] Last Admin: 01/09/18 09:38 Dose: 1 patch Multivitamins/Vitamin C 10 ml/ (Famotidine 20 mg/ Amino Acids) 1,012 mls @ 42 mls/hr IV .Q24H [facility] Stop: 01/12/18 17:59 Last Admin: 01/10/18 18:38 Dose: 42 mls/hr Fat Emulsion Intravenous (Intralipid 20%) 250 mls @ 21 mls/hr IV MWF@1800 [facility] Stop: 01/12/18 17:59 Last Admin: 01/09/18 17:43 Dose: 21 mls/hr Sodium Chloride (Sodium Chloride 0.9%) 1,000 mls @ 60 mls/hr IV .[id number] [facility] Last Admin: 01/11/18 09:57 Dose: 60 mls/hr Vancomycin HCl (Vancomycin 1gm) 1 gm in 250 mls @ 167 mls/hr IVPB Q12H [facility] PRN Reason: Protocol Last Admin: 01/11/18 10:20 Dose: 167 mls/hr Meropenem (Merrem Iv 1 Gm Premix) 50 mls @ 100 mls/hr IVPB Q8 [facility] PRN Reason: Protocol Insulin Human Regular (Humulin R Low) 0 units SC ACHS [facility] PRN Reason: Protocol Last Admin: 01/11/18 08:45 Dose: 2 unit Lactulose (Enulose) 20 gm PO HS [facility] Last Admin: 01/10/18 21:29 Dose: Not Given Morphine Sulfate (Morphine Extended Release Tab) 15 mg PO Q12 [facility] Last Admin: 01/11/18 10:28 Dose: Not Given Morphine Sulfate (Morphine) 2 mg IVP Q3H PRN PRN Reason: Pain, severe (8-10) Morphine Sulfate (Morphine Immediate Release Tab) 15 mg PO Q4H PRN PRN Reason: For moderate pain Nystatin (Nystatin Oral Susp) 5 ml PO QID [facility] Last Admin: 01/11/18 10:26 Dose: Not Given Ondansetron HCl (Zofran Inj) 4 mg IVP Q6H PRN PRN Reason: Nausea/Vomiting Saliva Substitute (Saliva Substitute) 1 ml PO Q4 [facility] Last Admin: 01/11/18 10:26 Dose: Not Given Sodium Chloride ([place] Nasal [place]) 1 ml NS Q3 [facility] Last Admin: 01/11/18 10:26 Dose: Not Given Physical Exam - Constitutional Appears: Toxic, In Acute Distress, Confused, Chronically Ill - Head Exam Head Exam: ATRAUMATIC, NORMOCEPHALIC - Eye Exam Additional comments: sluggish pupillary reaction b/l - ENT Exam ENT Exam: Mucous Membranes Dry - Respiratory Exam Respiratory Exam: Decreased Breath Sounds, Respiratory Distress. absent: Rhonchi, Wheezes - Cardiovascular Exam Cardiovascular Exam: +S1, +S2. absent: Systolic Murmur - GI/Abdominal Exam GI & Abdominal Exam: Diminished Bowel Sounds, Soft. absent: Distended, Firm, Guarding, Rebound Additional comments: + petechiae noted on lower abdomen - Extremities Exam Extremities exam: Positive for: pedal edema Additional comments: + petechiae, ecchymoses noted - Neurological Exam Neurological exam: Altered - Skin Skin Exam: Mottled, Pallor, Petechiae Results - Vital Signs Recent Vital Signs: Last Vital Signs Temp 97.6 F 01/11/18 06:00 Pulse 110 H 01/11/18 06:00 Resp 24 01/11/18 06:00 BP 120/63 01/11/18 06:00 Pulse Ox 97 01/11/18 06:00 - Labs Result Diagrams: 01/11/18 05:30 01/11/18 11:05 Labs: Laboratory Results - last 24 hr 01/10/18 01/10/18 01/10/18 11:21 16:12 20:57 WBC RBC Hgb Hct MCV MCH MCHC RDW Plt Count Manual Plt Count MPV Gran % Lymph % (Auto) [place] % (Auto) Eos % (Auto) Baso % (Auto) Gran # Lymph # (Auto) [place] # (Auto) Eos # (Auto) Baso # (Auto) pCO2 pO2 HCO3 ABG pH ABG Total CO2 ABG O2 Saturation ABG Base Excess ABG Potassium Glucose Lactate FiO2 Sodium Potassium Chloride Carbon Dioxide Anion Gap BUN Creatinine Est GFR ( Amer) Est GFR (Non-Af Amer) POC Glucose (mg/dL) 278 H 269 H 225 H Random Glucose Lactic Acid Uric Acid Calcium Phosphorus Magnesium Total Bilirubin AST ALT Alkaline Phosphatase Ammonia Lactate Dehydrogenase Total Creatine Kinase CK-MB (CK-2) CK-MB (CK-2) % Troponin I Total Protein Albumin Globulin Albumin/Globulin Ratio Arterial Blood Potassium 01/11/18 01/11/18 01/11/18 05:30 05:30 05:30 WBC 15.7 H D RBC 3.19 L Hgb 10.5 L Hct 33.6 L MCV 105.3 H MCH 32.9 MCHC 31.3 RDW 22.4 H Plt Count 38 L* Manual Plt Count 42 L* MPV 11.0 Gran % 74.9 H Lymph % (Auto) 20.1 L [place] % (Auto) 4.4 Eos % (Auto) 0.1 L Baso % (Auto) 0.5 Gran # 11.78 H Lymph # (Auto) 3.2 [place] # (Auto) 0.7 H Eos # (Auto) 0.0 Baso # (Auto) 0.08 pCO2 pO2 HCO3 ABG pH ABG Total CO2 ABG O2 Saturation ABG Base Excess ABG Potassium Glucose Lactate FiO2 Sodium 131 L Potassium 6.1 H* D Chloride 97 L Carbon Dioxide 15 L Anion Gap 25 H BUN 19 Creatinine 0.5 L Est GFR ( Amer) > 60 Est GFR (Non-Af Amer) > 60 POC Glucose (mg/dL) Random Glucose 201 H Lactic Acid Uric Acid Calcium 8.9 Phosphorus Magnesium Total Bilirubin 6.3 H AST 1450 H ALT 219 H Alkaline Phosphatase 881 H D Ammonia Lactate Dehydrogenase Total Creatine Kinase CK-MB (CK-2) CK-MB (CK-2) % Troponin I Total Protein 5.8 Albumin 2.7 L Globulin 3.1 Albumin/Globulin Ratio 0.9 L Arterial Blood Potassium 01/11/18 01/11/18 01/11/18 07:27 07:30 09:10 WBC RBC Hgb Hct MCV MCH MCHC RDW Plt Count Manual Plt Count MPV Gran % Lymph % (Auto) [place] % (Auto) Eos % (Auto) Baso % (Auto) Gran # Lymph # (Auto) [place] # (Auto) Eos # (Auto) Baso # (Auto) pCO2 14 L* pO2 88.0 HCO3 8.1 L* ABG pH 7.37 ABG Total CO2 8.5 L ABG O2 Saturation 97.8 ABG Base Excess -14.2 L ABG Potassium 6.0 H Glucose 328 H Lactate 16.9 H* FiO2 36.0 Sodium 132 131.0 L Potassium 6.6 H* Chloride 98 98.0 Carbon Dioxide 11 L Anion Gap 30 H BUN 19 Creatinine 0.5 L Est GFR ( Amer) > 60 Est GFR (Non-Af Amer) > 60 POC Glucose (mg/dL) 218 H Random Glucose 203 H Lactic Acid Uric Acid Calcium 9.3 Phosphorus Magnesium Total Bilirubin 7.1 H AST 1904 H ALT 275 H Alkaline Phosphatase 954 H Ammonia Lactate Dehydrogenase 24837 H Total Creatine Kinase 703 H CK-MB (CK-2) 7.5 H CK-MB (CK-2) % 1.1 L Troponin I 0.05 D Total Protein 6.1 Albumin 2.9 L Globulin 3.2 Albumin/Globulin Ratio 0.9 L Arterial Blood Potassium 6.0 H 0901/11/18 01/11/18 09:20 09:37 09:39 WBC RBC Hgb Hct MCV MCH MCHC RDW Plt Count Manual Plt Count MPV Gran % Lymph % (Auto) [place] % (Auto) Eos % (Auto) Baso % (Auto) Gran # Lymph # (Auto) [place] # (Auto) Eos # (Auto) Baso # (Auto) pCO2 pO2 HCO3 ABG pH ABG Total CO2 ABG O2 Saturation ABG Base Excess ABG Potassium Glucose Lactate FiO2 Sodium Potassium Chloride Carbon Dioxide Anion Gap BUN Creatinine Est GFR ( Amer) Est GFR (Non-Af Amer) POC Glucose (mg/dL) 265 H Random Glucose Lactic Acid 15.7 H* Uric Acid 12.1 H Calcium Phosphorus 4.6 H Magnesium 2.6 H Total Bilirubin AST ALT Alkaline Phosphatase Ammonia Lactate Dehydrogenase Total Creatine Kinase CK-MB (CK-2) CK-MB (CK-2) % Troponin I Total Protein Albumin Globulin Albumin/Globulin Ratio Arterial Blood Potassium 01/11/18 10:11 WBC RBC Hgb Hct MCV MCH MCHC RDW Plt Count Manual Plt Count MPV Gran % Lymph % (Auto) [place] % (Auto) Eos % (Auto) Baso % (Auto) Gran # Lymph # (Auto) [place] # (Auto) Eos # (Auto) Baso # (Auto) pCO2 pO2 HCO3 ABG pH ABG Total CO2 ABG O2 Saturation ABG Base Excess ABG Potassium Glucose Lactate FiO2 Sodium Potassium Chloride Carbon Dioxide Anion Gap BUN Creatinine Est GFR ( Amer) Est GFR (Non-Af Amer) POC Glucose (mg/dL) Random Glucose Lactic Acid Uric Acid Calcium Phosphorus Magnesium Total Bilirubin AST ALT Alkaline Phosphatase Ammonia 29 Lactate Dehydrogenase Total Creatine Kinase CK-MB (CK-2) CK-MB (CK-2) % Troponin I Total Protein Albumin Globulin Albumin/Globulin Ratio Arterial Blood Potassium Assessment & Plan - Assessment and Plan (Free Text) Assessment: 72 year old female with PMH Stage IV metastatic small cell 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 Head CT obtained at this time showed no change in subdural hematoma. Patient placed on bipap to assist with breathing. At that time, palliative nurse Beatriz Starr consulted , made patient DNR/DNI. Patient's son is POAma, arrived at bedside, decided to pursue comfort care measures. Patient given loading dose of morphine, started on morphine drip. Patient will be evaluated for inpatient hospice. Case seen and discussed with Dr David Segura. <David Segura - Last Filed: 01/11/18 17:33> Results - Vital Signs Recent Vital Signs: Last Vital Signs Temp 97.6 F 01/11/18 06:00 Pulse 119 H 01/11/18 11:51 Resp 41 H 01/11/18 11:51 BP 142/79 01/11/18 11:13 Pulse Ox 100 01/11/18 11:51 - Labs Result Diagrams: 01/11/18 05:30 01/11/18 11:05 Labs: Laboratory Results - last 24 hr 01/10/18 01/11/18 01/11/18 20:57 05:30 05:30 WBC 15.7 H D RBC 3.19 L Hgb 10.5 L Hct 33.6 L MCV 105.3 H MCH 32.9 MCHC 31.3 RDW 22.4 H Plt Count 38 L* Manual Plt Count MPV 11.0 Gran % 74.9 H Lymph % (Auto) 20.1 L [place] % (Auto) 4.4 Eos % (Auto) 0.1 L Baso % (Auto) 0.5 Gran # 11.78 H Lymph # (Auto) 3.2 [place] # (Auto) 0.7 H Eos # (Auto) 0.0 Baso # (Auto) 0.08 pCO2 pO2 HCO3 ABG pH ABG Total CO2 ABG O2 Saturation ABG Base Excess ABG Potassium Glucose Lactate FiO2 Sodium 131 L Potassium 6.1 H* D Chloride 97 L Carbon Dioxide 15 L Anion Gap 25 H BUN 19 Creatinine 0.5 L Est GFR ( Amer) > 60 Est GFR (Non-Af Amer) > 60 POC Glucose (mg/dL) 225 H Random Glucose 201 H Lactic Acid Uric Acid Calcium 8.9 Phosphorus Magnesium Total Bilirubin 6.3 H AST 1450 H ALT 219 H Alkaline Phosphatase 881 H D Ammonia Lactate Dehydrogenase Total Creatine Kinase CK-MB (CK-2) CK-MB (CK-2) % Troponin I Total Protein 5.8 Albumin 2.7 L Globulin 3.1 Albumin/Globulin Ratio 0.9 L Arterial Blood Potassium 01/11/18 01/11/18 01/11/18 05:30 07:27 07:30 WBC RBC Hgb Hct MCV MCH MCHC RDW Plt Count Manual Plt Count 42 L* MPV Gran % Lymph % (Auto) [place] % (Auto) Eos % (Auto) Baso % (Auto) Gran # Lymph # (Auto) [place] # (Auto) Eos # (Auto) Baso # (Auto) pCO2 pO2 HCO3 ABG pH ABG Total CO2 ABG O2 Saturation ABG Base Excess ABG Potassium Glucose Lactate FiO2 Sodium 132 Potassium 6.6 H* Chloride 98 Carbon Dioxide 11 L Anion Gap 30 H BUN 19 Creatinine 0.5 L Est GFR ( Amer) > 60 Est GFR (Non-Af Amer) > 60 POC Glucose (mg/dL) 218 H Random Glucose 203 H Lactic Acid Uric Acid Calcium 9.3 Phosphorus Magnesium Total Bilirubin 7.1 H AST 1904 H ALT 275 H Alkaline Phosphatase 954 H Ammonia Lactate Dehydrogenase 44114 H Total Creatine Kinase 703 H CK-MB (CK-2) 7.5 H CK-MB (CK-2) % 1.1 L Troponin I 0.05 D Total Protein 6.1 Albumin 2.9 L Globulin 3.2 Albumin/Globulin Ratio 0.9 L Arterial Blood Potassium 01/11/18 01/11/18 01/11/18 09:10 09:20 09:37 WBC RBC Hgb Hct MCV MCH MCHC RDW Plt Count Manual Plt Count MPV Gran % Lymph % (Auto) [place] % (Auto) Eos % (Auto) Baso % (Auto) Gran # Lymph # (Auto) [place] # (Auto) Eos # (Auto) Baso # (Auto) pCO2 14 L* pO2 88.0 HCO3 8.1 L* ABG pH 7.37 ABG Total CO2 8.5 L ABG O2 Saturation 97.8 ABG Base Excess -14.2 L ABG Potassium 6.0 H Glucose 328 H Lactate 16.9 H* FiO2 36.0 Sodium 131.0 L Potassium Chloride 98.0 Carbon Dioxide Anion Gap BUN Creatinine Est GFR ( Amer) Est GFR (Non-Af Amer) POC Glucose (mg/dL) Random Glucose Lactic Acid 15.7 H* Uric Acid 12.1 H Calcium Phosphorus 4.6 H Magnesium 2.6 H Total Bilirubin AST ALT Alkaline Phosphatase Ammonia Lactate Dehydrogenase Total Creatine Kinase CK-MB (CK-2) CK-MB (CK-2) % Troponin I Total Protein Albumin Globulin Albumin/Globulin Ratio Arterial Blood Potassium 6.0 H 01/11/18 01/11/18 01/11/18 09:39 10:11 11:05 WBC RBC Hgb Hct MCV MCH MCHC RDW Plt Count Manual Plt Count MPV Gran % Lymph % (Auto) [place] % (Auto) Eos % (Auto) Baso % (Auto) Gran # Lymph # (Auto) [place] # (Auto) Eos # (Auto) Baso # (Auto) pCO2 pO2 HCO3 ABG pH ABG Total CO2 ABG O2 Saturation ABG Base Excess ABG Potassium Glucose Lactate FiO2 Sodium 133 Potassium 6.6 H* Chloride 99 Carbon Dioxide 10 L Anion Gap 31 H BUN 20 Creatinine 0.6 L Est GFR ( Amer) > 60 Est GFR (Non-Af Amer) > 60 POC Glucose (mg/dL) 265 H Random Glucose 222 H Lactic Acid Uric Acid Calcium 9.4 Phosphorus Magnesium Total Bilirubin AST ALT Alkaline Phosphatase Ammonia 29 Lactate Dehydrogenase Total Creatine Kinase CK-MB (CK-2) CK-MB (CK-2) % Troponin I Total Protein Albumin Globulin Albumin/Globulin Ratio Arterial Blood Potassium Addendum Addendum: 01/11/18 17:30 ICU Attending Addendum: Patient seen and examined. Case reviewed on round with housestaff. Agree with resident note above with the following additions/exceptions: 72 [facility] Stage IV metastatic small cell lung cancer with mets to the spine, liver , retroperitoneal nodes, bone, COPD, HTN, DM, who we are asked to see for AMS, labored breathing and sepsis. She is familiar to us in the ICU as she was initially admitted and observed in the ICU with concern for increase ICH in the setting of low plats. At this time she is very sick and already has a poor prognosis given her advanced SCLC. D/w with daughter at bedside and eventually son (POA) they request DNR/DNI which is appropriate requested to make comfort a priority will make ENDOSCOPY SPECIALTY TECHNICIAN pal care at bedside as well Her ONC team was made aware rest of care above David Segura MD Tie Tape Machine Operator
[2018-01-11 11:44] LABS: BLOOD UREA NITROGEN 20 mg/dL (7-21); CALCIUM 9.4 mg/dL (8.4-10.5); GFR NON-AFRICAN AMERICAN > 60
[2018-01-11] MEDS ORDERED: Morphine 5 MG/ML SYRINGE IVP PRN (11:49)
[2018-01-11] MEDS ORDERED: Morphine PCA 1 mg/ml (30ml) 30 ML IV PRN ×3 (11:54→12:48)
[2018-01-11 11:58] VITALS: BP 142/79; PULSE 119; RESP 41; O2SAT 100
--- NOTE | 2018-01-11 12:33 | PCM.SEPTIC ---
Sepsis Progress Note - Reassessment Type Date of Evaluation: 01/11/18 Time of Evaluation: 12:31 Reassessment Type: Non-invasive reassessment - Non Invasive Reassessment Were the most recent vital sign reviewed: Yes Vital Sign (Latest): Temp Pulse Resp BP Pulse Ox 97.6 F 119 H 41 H 142/79 100 01/11/18 06:00 01/11/18 11:51 01/11/18 11:51 01/11/18 11:13 01/11/18 11:51 Cardiovascular: Yes: Tachycardia Respiratory: Yes: Decreased Breath Sounds, Accessory Muscle Use Capillary Refill: Delayed Pulses: Decreased Radial, Decreased Dorsalis Pedis, Decreased Posterior Tibialis Skin: Pale, Jaundice
--- NOTE | 2018-01-11 12:38 | PQF ---
PROVIDER RESPONSE TEXT: Provider was unable to determine a response for this query. REVIEWER QUERY TEXT: Pleural Effusion Type Pleural Effusion is documented in the Medical Record. Please specify the cause (includes suspected or probable) Such as: -- Bacterial infection -- Malignancy -- Congestive Heart Failure -- Hydropneumothorax -- Hemothorax -- Systemic lupus erythematosis -- Other, please specify The patient's Clinical Indicators include: Pt w/ extensive metastatic SCLCA w/ lg rt pl effusion requiring chest tube insertion. Can you specif y if this is a malignant pleural effusion? Query created by: Beatriz Castañeda on 01/09/2018 1:50 PM Electronically signed by: Yuniel Christian 01/11/2018 12:35 PM
[2018-01-11] MEDS ORDERED: Morphine 2 mg/ml ISec IVP STA ×4 (12:49→13:23)
[2018-01-11] MEDS ORDERED: Morphine 5 MG/ML SYRINGE IVP STA (13:00)
--- NOTE | 2018-01-11 13:48 | PN ---
DATE: 01/11/2018 PULMONARY PROGRESS NOTE REFERRING PHYSICIAN: Fortino Cain MD. SUBJECTIVE: The patient is moved to Intensive Care Unit. Family is bedside. Made DNR and DNI. Has a supportive care. Most of the care withdrew. Seen with Palliative Care. On morphine drip with withdraw of care protocol. She is awake, breathing faster rate, tachypnea, dry mouth. No hemoptysis. No vomiting. No hematuria. OBJECTIVE: GENERAL: Mild distress. VITAL SIGNS: Afebrile, heart rate is 190, respiratory rate is 37, pulse ox is 95%. HEENT: Dry mucous membrane. NECK: Supple. No JVD. LUNGS: Have a fair airflow. HEART: S1 and S2. ABDOMEN: Soft, nontender, nondistended. EXTREMITIES: No edema. NEUROLOGICAL: Lethargic. MEDICATIONS: Morphine and Ativan is being given. Supplemental oxygen is being given. LABORATORY DATA: This morning shows hemoglobin 10.5, hematocrit 33.6, WBC 15.7, platelet count is 42. She has blood gases director it project time shows pH 7.37, pCO2 of 14, O2 of 88. Sodium 133, potassium 6.6, chloride 99, bicarbonate 10, BUN 20, creatinine 0.6, glucose 222, calcium 9.4. Chest x-ray done was unremarkable. CT of the head shows subdural wall hematoma. IMPRESSION AND PLAN: Small cell lung cancer, extensive disease, metastases to the lungs, liver, spine; retroperitoneal lymphadenopathy; chronic lung disease; chronic pain syndrome; obstructive lung disease; depression; anxiety. Spoke to family at bedside. Also, spoke to Palliative Care. ____ withdraw of care is done. The patient is being made comfortable understanding poor prognosis on morphine drip, p.r.n. diazepam. Spoke to family. Assured her about the process. To keep the patient pain free. Robert Eastman MD
[2018-01-11] MEDS ORDERED: Meropenem 500 MG in Sodium Chloride 0.9% 50 ML IVPB SCH (14:00)
--- NOTE | 2018-01-11 20:54 | CARD ---
APPROVED REPORT Date of service: 01/11/2018 EKG Measurement Heart [id number] <Conclusion> Sinus tachycardia Left axis deviation Left bundle branch block Abnormal ECG
== END 2018-01-11 13:19 | disposition hospice, inpatient (51) | DRG 180 ==
LOC: ED 14:47 → ERH 20:28 → ICU 01-04 00:57 → 2RNO 01-06 00:55 → 5RSO 01-06 16:58 → 3RNO 01-09 13:10 → ICU 01-11 10:55
PROVIDERS: ADMIT Internal Medicine; ATTEND Internal Medicine
PROC: 30233R1 Transfusion of Nonautologous Platelets into Peripheral Vein, Percutaneous Approach (ICD-10-PCS; 2018-01-04)
PROC: 3E0F7GC Introduction of Other Therapeutic Substance into Respiratory Tract, Via Natural or Artificial Opening (ICD-10-PCS; 2018-01-04)
PROC: 0W9930Z Drainage of Right Pleural Cavity with Drainage Device, Percutaneous Approach (ICD-10-PCS; principal; 2018-01-05)
PROC: 5A09357 Assistance with Respiratory Ventilation, Less than 24 Consecutive Hours, Continuous Positive Airway Pressure (ICD-10-PCS; 2018-01-10)
DX: C34.91 Malignant neoplasm of unspecified part of right bronchus or lung (principal); J18.9 Pneumonia, unspecified organism; L89.93 Pressure ulcer of unspecified site, stage 3; A41.9 Sepsis, unspecified organism; G93.40 Encephalopathy, unspecified; J90 Pleural effusion, not elsewhere classified; C78.7 Secondary malignant neoplasm of liver and intrahepatic bile duct; C79.51 Secondary malignant neoplasm of bone; J44.0 Chronic obstructive pulmonary disease with (acute) lower respiratory infection; D61.818 Other pancytopenia; G89.4 Chronic pain syndrome; G89.3 Neoplasm related pain (acute) (chronic); R62.7 Adult failure to thrive; Z51.5 Encounter for palliative care; E11.9 Type 2 diabetes mellitus without complications; Z66 Do not resuscitate; I11.0 Hypertensive heart disease with heart failure; I50.9 Heart failure, unspecified; K21.9 Gastro-esophageal reflux disease without esophagitis; R59.0 Localized enlarged lymph nodes; K52.9 Noninfective gastroenteritis and colitis, unspecified; Y95 Nosocomial condition; R63.0 Anorexia; E78.5 Hyperlipidemia, unspecified; K27.9 Peptic ulcer, site unspecified, unspecified as acute or chronic, without hemorrhage or perforation; G47.00 Insomnia, unspecified; K59.00 Constipation, unspecified; F41.9 Anxiety disorder, unspecified; R26.2 Difficulty in walking, not elsewhere classified; E66.9 Obesity, unspecified; Z68.30 Body mass index [BMI] 30.0-30.9, adult; Z91.81 History of falling; Z92.3 Personal history of irradiation; Z92.21 Personal history of antineoplastic chemotherapy; Z96.651 Presence of right artificial knee joint; Z87.891 Personal history of nicotine dependence

== ENCOUNTER 2018-01-11 13:23 | Inpatient (IN) | payer OTHER ==
--- NOTE | 2018-01-11 13:29 | PN ---
DATE: 01/11/2018 SUBJECTIVE: The patient is 72 years old, had code sepsis called this morning. The patient was short of breath and had altered mental status. Her white count also went up to 15,700. She is thrombocytopenia. She was tachypneic and tachycardic. The patient had x-ray chest and CT scan of the head done and transferred to ICU. PHYSICAL EXAMINATION: GENERAL: She is sleepy, lethargic, opens eye on verbal command. VITAL SIGNS: She is afebrile, pulse 110, respirations 24, blood pressure 120/63. LUNGS: Bilateral poor respiratory effort. She has decreased breath sound at bases. HEART: S1 and S2 audible. Tachycardic. ABDOMEN: Soft. Nontender. No rebound. No guarding. NEUROLOGICAL: She is lethargic. LABORATORY EXAM: WBC is 15.7, hemoglobin 10.5, hematocrit 33.6, platelet 38. Chemistry: Sodium 133, potassium 6.6, chloride 99, CO2 of 10, BUN 20, creatinine 0.6, blood sugar of 222, magnesium 2.6. A CT scan of the head done does not show any change in subdural hematoma. X-ray chest shows no active disease. The patient had chest tube removed yesterday by Dr. Lars Alvarado. ASSESSMENT: 1. Sepsis, source unknown yet. Cultures have been sent. 2. Metastatic small cell carcinoma of the lung. 3. Respiratory insufficiency. 4. Anemia. 5. Thrombocytopenia. 6. Chronic degenerative disk disease and bony metastasis. PLAN: Currently, the patient is on PPN. She is on nebulizer treatment. Awaiting ID input since she is off of antibiotics. We will follow up this patient in the a.m. Fortino Cain MD
--- NOTE | 2018-01-11 13:38 | CP.PCM.PN ---
Subjective - Date & Time of Evaluation Date of Evaluation: 01/11/18 Time of Evaluation: 13:34 - Subjective Subjective: Heme/Onc Progress Note for Dr. Puente -- Terell Lam DO PGY2 Patient seen and examined at bedside. Patient is more lethargic today. She is able to open her eyes, but unable to answer questioning. Definite change in mental status as she was able to talk without difficult today. Patient labs were reviewed, which showed various electrolyte abnormalities including hyperkalemia with EKG changes. Lactate was 16.9. Code Sepsis was called. At the time, as patient was still full code, she was evaluated and accepted by ICU. However, shortly after being transferred to ICU, patient's son and POA, Usman , was informed of the situation and agreed to place her into hospice care. Further ROS was unobtainable due to patient's current mental status. Objective - Constitutional Appears: In Acute Distress, Confused, Chronically Ill - Head Exam Head Exam: ATRAUMATIC, NORMOCEPHALIC Additional comments: alopecia - Eye Exam Eye Exam: Normal appearance - ENT Exam ENT Exam: Mucous Membranes Dry - Neck Exam Neck Exam: Normal Inspection - Respiratory Exam Respiratory Exam: Clear to Ausculation Bilateral. absent: Rales, Rhonchi, Wheezes - Cardiovascular Exam Cardiovascular Exam: Tachycardia, +S1, +S2. absent: Gallop, Rubs, Murmur - GI/Abdominal Exam GI & Abdominal Exam: Soft. absent: Distended, Guarding, Tenderness, Rebound - Extremities Exam Extremities Exam: Normal Inspection - Neurological Exam Neurological Exam: Awake. 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 During this admission, right pleural effusion chest tube was placed and removed once effusion resolved. Today, patient had acute change in mental status with various electrolyte abnormalities and severe sepsis with a lactate of 16.9. At the time, patient was full code and transferred to ICU. However, after further discussion with Usman, the patient's son and POA, the decision was made to make her hospice, dnr/dni. Plan: - Palliative care following - Comfort measures only - IV pain medications - No lab draws Case reviewed and discussed with attending. Terell Lam, PGY2
[2018-01-11] MEDS ORDERED: Morphine PCA 1 mg/ml (30ml) 30 ML IV PRN (13:59)
--- NOTE | 2018-01-11 17:19 | CON ---
DATE: 01/11/2018 REASON FOR CONSULTATION: Hyperkalemia, metabolic acidosis, altered mental status. HISTORY OF PRESENT ILLNESS: A 72-year-old lady known to me from prior evaluations. The patient was initially admitted on 01/03/2018, with complaints of right upper quadrant pain. The patient was transferred in from rehab. The patient had pain which started in the rehab. She was not able to participate with therapy. She was advised to come to the emergency room. At the time of admission, the were no complaints of any fever or chills. She did give a history of cough. She denied any nausea, vomiting, or change in appetite. The patient was admitted to the ICU because of altered mental status, CT of the head showing subdural hematoma in the right frontotemporal region, and CT of the chest showing a large pleural effusion. She had a chest tube put in for the right pleural effusion. She was also found to have bone metastases. She was started on hyperalimentation. The patient was transferred out to the third floor. Over the last 48 hours, the patient has been deteriorating. She had a rise in her WBC count from 10.5 to 11.8 yesterday and 15.7 today. Also, she had a drop in her platelet count from 64 on the 17th to 38 today. Her potassium was found to be 6.1 early this morning and then 6.6 on repeat. She was found to be acidotic. Her pCO2 dropped from 21 yesterday to 15 and subsequently to 10 today. The patient became increasingly altered. Hence consultation is requested. The patient is currently seen in the ICU. She is minimally responsive. She is tachypneic and tachycardic. She is unable to participate in systems review. Family members are at bedside. 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 FAMILY HISTORY: Noncontributory. SOCIAL HISTORY: Ex-smoker, no alcohol use, no IV drug abuse. ALLERGIES: SULFA. MEDICATIONS: Insulin, TPN, morphine, nystatin, vancomycin 1 g, Zosyn 3.375 g every 6 hours. Earlier, D50 one ampule, insulin 5 units, calcium gluconate one ampule, Kayexalate 15 g were given for the hyperkalemia. REVIEW OF SYSTEMS: Unavailable as the patient is unable to cooperate with systems review. PHYSICAL EXAMINATION: GENERAL: Elderly lady lying in bed in the ICU. VITAL SIGNS: Blood pressure 142/79, heart rate 124, respiratory rate 42, and temperature 97.6. HEENT: Normocephalic, atraumatic, positive pallor, positive icterus. NECK: Supple, no JVD. LUNGS: Bilateral equal air entry, bilateral rhonchi, decreased breath sounds at right base. CARDIAC: S1 and S2, regular rate and rhythm, positive tachycardia, no murmur. ABDOMEN: Obese, distended, soft, nontender, bowel sounds present. EXTREMITIES: Trace lower extremity edema. INTAKE AND OUTPUT: 900/150 LABORATORY DATA: WBC 15.7, hemoglobin 10.5, hematocrit 34, and platelets 38. Sodium 133, potassium 6.6, chloride 99, CO2 of 10. BUN 20, creatinine 0.6. Glucose 222. Calcium 9.4, phosphorus 4.6, magnesium 2.6, uric acid 12.1, lactic acid 15.7. Urinalysis, dark, yellow, clear, pH 6.5, specific gravity 1.015, protein 30, blood trace intact, leukocyte esterase large. Urine culture, multiple species. Blood culture, no growth. CT of the head, no significant change in the appearance of the subdural hematoma and adjacent scalp masses seen bilaterally. ASSESSMENT AND PLAN: 1. Acute severe hyperkalemia. 2. Severe metabolic acidosis. 3. Severe lactic acidosis. 4. Leukocytosis/sepsis. 5. Advanced stage IV metastatic small cell cancer of the lung with spine metastases, liver metastases, bone metastases, scalp metastases. 6. Subdural hematoma. 7. Tumor lysis syndrome. 8. History of [id number] diabetes mellitus. 9. History of hypertension. PLAN: 1. The patient is critically ill with end-stage terminal lung cancer. She has severe tumor lysis syndrome as seen by elevated LDH, elevated liver enzymes, elevated uric acid, severe acidosis. 2. Hyperkalemia is also secondary to tumor lysis syndrome. 3. Suspected severe sepsis. 4. Kayexalate, calcium gluconate, sodium bicarbonate given to correct hyperkalemia. 5. Prognosis is grim. 6. Patient is awaiting hospice evaluation. 7. Case was discussed with family members at bedside at length. 8. Case was discussed with ICU residents at length. 9. More than 35 minutes was spent in the care coordination of this critically ill patient. 10. Agree with plans for comfort care/hospice. Dana Hawkins MD
--- NOTE | 2018-01-11 17:26 | CP.PCM.PRO ---
Pronouncement of Note - Clinical Findings Physical Exam: No Response Verbal/Painful Stimuli, Absent Peripheral Pulses{ Carotid & Femoral}, Absent Heart & Breath Sounds, No Pupillary Light Reflex, No Corneal Reflex, Pupils Fixed & Dilated, Absence of Vital Signs - Pronouncement Time Time of Pronouncement of : 17:18 - Notifications Pronouncement Notifications: Family Notified, Atending Notified Engine Buildup Mechanic Notified: No - Autopsy Autopsy Requested: No - [place] [id number]
[2018-01-11 18:01] VITALS: BP 112/68; PULSE 121; RESP 38; TEMP 98.9
[2018-01-11 18:02] VITALS: BMI 24.7
== END 2018-01-11 17:18 | DRG 180 ==
LOC: ICU 13:23 → 3RNO 16:15
PROVIDERS: ADMIT Internal Medicine; ATTEND Internal Medicine
DX: C34.90 Malignant neoplasm of unspecified part of unspecified bronchus or lung (principal); A41.9 Sepsis, unspecified organism; R65.20 Severe sepsis without septic shock; E88.3 Tumor lysis syndrome; C79.51 Secondary malignant neoplasm of bone; C78.7 Secondary malignant neoplasm of liver and intrahepatic bile duct; E87.2 Acidosis; J90 Pleural effusion, not elsewhere classified; E11.9 Type 2 diabetes mellitus without complications; J44.9 Chronic obstructive pulmonary disease, unspecified; I10 Essential (primary) hypertension; Z51.5 Encounter for palliative care; Z66 Do not resuscitate; D64.9 Anemia, unspecified; D69.6 Thrombocytopenia, unspecified; E87.5 Hyperkalemia; K21.9 Gastro-esophageal reflux disease without esophagitis; G47.00 Insomnia, unspecified; Z87.891 Personal history of nicotine dependence